=== PATIENT | female | born 1980 | race Caucasian/White ===

== ENCOUNTER 2018-04-17 11:19 | Emergency (ER) | payer OTHER ==
[2018-04-17 11:28] VITALS: BP 110/71; PULSE 85; RESP 18; TEMP 98.2
--- NOTE | 2018-04-17 12:03 | ED ---
General Adult HPI - General Chief complaint: Back Pain/Injury Stated complaint: Back pain Time Seen by Provider: 04/17/18 11:40 Source: patient, RN notes reviewed, old records reviewed Mode of arrival: ambulatory Limitations: no limitations - History of Present Illness Initial comments: Chief complaint and history of present illness this is a 38-year-old female here with complaint of chronic low back pain. Patient reports she lost her insurance and will be reinstated in approximately one week. This was just to see her family doctor in her pain clinic doctor. She had been on Cunningham 750 twice a day and baclofen 20 twice a day for prolonged period of time. At this time the patient reports she has recurrent discomfort lumbar spine and radiates to the back of both legs, thigh area. No new injury. No foot drop. No numbness no tingling. Left side slightly worse than the right. No difficulty ambulating. Patient's here requesting a refill of her pain medication. We did discuss her following up. - Related Data Previous Rx's Medication Instructions Recorded Baclofen [Lioresal] 20 mg PO BID #12 tab 04/17/18 Hydrocodone/Acetaminophen [Cunningham 1 each PO Q6HR PRN #10 tab 04/17/18 5-325] Allergies Allergy/AdvReac Type Severity Reaction Status Date / Time cephalexin monohydrate Allergy Unknown Verified 04/17/18 11:46 [From Keflex] Iodinated Contrast- Oral and Allergy Anaphylaxis Verified 04/17/18 11:46 IV Dye [Iodinated Contrast Media - IV Dye] peanut Allergy Anaphylaxis Verified 04/17/18 11:46 Penicillins Allergy Anaphylaxis Verified 04/17/18 11:46 shellfish derived Allergy Anaphylaxis Verified 04/17/18 11:46 Review of Systems ROS Statement: Those systems with pertinent positive or pertinent negative responses have been documented in the HPI. Review of systems all systems reviewed pertinent to the visit the patient has had CT and MRI of her lumbar spine showing disc disease at L3-L4 area. No x- rays will be done today as patient has had no injury. This recurrent chronic pain. All systems reviewed. Past medical problems asthma, diabetes, seizure disorder, ovarian cyst,. The patient's surgeries include cholecystectomy and left ovary removal and D&C. Family history noncontributory and no cancers. Patient has ALLERGIES to cephalexin, iodine both IV and oral, peanuts, penicillin and shellfish. Patient does not smoke does not drink. ROS Other: All systems not noted in ROS Statement are negative. Past Medical History Past Medical History: Asthma, Diabetes Mellitus, Seizure Disorder Additional Past Medical History / Comment(s): OVARIAN CYST, Schizophrenia, BIPOLAR, SCOLOSIS, chronic back pain History of Any Multi-Drug Resistant Organisms: None Reported Past Surgical History: Cholecystectomy Additional Past Surgical History / Comment(s): LEFT OVARY, D&C Past Psychological History: Anxiety, Bipolar, Depression, Schizophrenia Smoking Status: Former smoker Past Alcohol Use History: None Reported Past Drug Use History: None Reported - Past Family History Mother History Unknown: Yes Additional Family Medical History / Comment(s): pt states is unaware of history General Exam - General Exam Comments Initial Comments: General: The patient is awake and alert, here with request for refill of pain medication because of chronic pain. Lumbosacral pain radiation to the posterior thighs bilaterally. Vital signs shows temperature 90.2 pulse 85 respiratory rate 18 pulse ox 96% room air blood pressure 110/71 Eye: Pupils are equal, extra-ocular movements are intact; there is normal conjunctiva bilaterally. Ears, nose, mouth and throat: There are moist mucous membranes Neck: The neck is supple, no complaint of neck pain. Cardiovascular: There is a regular rate and rhythm. No murmur, rub or gallop is appreciated. Respiratory: Lungs are clear to auscultation, respirations are non-labored, breath sounds are equal. No wheezes, stridor, rales, or rhonchi. Gastrointestinal: Soft, non-distended, non-tender abdomen without masses or organomegaly noted. There is no rebound or guarding present. No CVA tenderness. Bowel sounds are unremarkable. Back: Patient has an complains of chronic lumbar spine pain. No rash noted. Patient had essentially a negative leg lift test. Musculoskeletal: Chronic lumbar discomfort which radiates to the posterior aspects of both thighs. No perineal numbness. Neurovascular status feet intact. Range of motion is near normal. No foot drop Neurological: CN II-XII intact, There are no obvious motor or sensory deficits. Coordination appears grossly intact. Speech is normal. Skin: Skin is warm and dry and no rashes or lesions are noted. Limitations: no limitations Course Vital Signs 04/17/18 11:23 Temperature 98.2 F Pulse Rate 85 Respiratory 18 Rate Blood Pressure 110/71 O2 Sat by Pulse 97 Oximetry Medical Decision Making - Medical Decision Making Medical decision making; I had this is a 38-year-old female here to request of refill of her pain medication of baclofen and Cunningham. Patient has chronic back pain. 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 No new complaints. No new injuries. No noticeable neuro deficits. And no complaints other than the discomfort. Disposition Clinical Impression: Chronic lumbosacral pain Disposition: HOME SELF-CARE Condition: Fair Instructions: Chronic Back Pain (ED) Additional Instructions: Take medications as directed. Follow-up with your family doctor and painter [employer]. Prescriptions: Baclofen [Lioresal] 20 mg PO BID #12 tab Hydrocodone/Acetaminophen [Cunningham 5-325] 1 each PO Q6HR PRN #10 tab PRN Reason: Pain Is patient prescribed a controlled substance at d/c from ED?: Yes When asked, does pt state using other controlled substances?: No If opioid is for acute pain is fill amount 7 days or less?: Yes If Rx opioid, was Start Talking consent form obtained?: Yes Referrals: [facility] [Primary Care Provider] - 1-2 days Time of Disposition: 12:06
== END 2018-04-17 12:20 | disposition home or self-care (01) ==
LOC: EC 11:19
DX: G89.29 Other chronic pain (principal); M54.5 Low back pain; Z87.891 Personal history of nicotine dependence; Z88.0 Allergy status to penicillin; Z88.1 Allergy status to other antibiotic agents; Z91.010 Allergy to peanuts; Z91.013 Allergy to seafood; Z91.041 Radiographic dye allergy status
CPT/HCPCS: 99283

== ENCOUNTER 2018-07-08 19:16 | Emergency (ER) | payer OTHER ==
[2018-07-08 19:24] VITALS: RESP 18
[2018-07-08 19:37] LABS: Glucose,Whole Blood 132 mg/dL (75-99)
[2018-07-08] MEDS ORDERED: DEXTROSE 50%-WATER 50 ML SYRINGE IVP STA (19:40)
[2018-07-08 19:53] LABS: Basophils # (A) 0.1 k/uL (0-0.2); Basophils % (A) 0 %; Eosinophils # (A) 1.1 k/uL (0-0.7); Eosinophils % (A) 7 %; HGB 14.1 gm/dL (11.4-16.0); Lymphocytes # (A) 3.2 k/uL (1.0-4.8); Lymphocytes % (A) 19 %; MCH 29.5 pg (25.0-35.0); MCHC 32.8 g/dL (31.0-37.0); Mean Platelet Volume 6.8; Monocytes # (A) 0.6 k/uL (0-1.0); Monocytes % (A) 4 %; Neutrophils # (A) 11.5 k/uL (1.3-7.7); Neutrophils % (A) 69 %; Platelet Count 211 k/uL (150-450); RBC 4.78 m/uL (3.80-5.40); RDW 14.5 % (11.5-15.5); WBC 16.7 k/uL (3.8-10.6)
[2018-07-08 20:02] LABS: ALT 26 U/L (9-52); AST 15 U/L (14-36); Albumin 3.2 g/dL (3.5-5.0); Alkaline Phosphatase 50 U/L (38-126); Anion Gap 8 mmol/L; Blood Urea Nitrogen 19 mg/dL (7-17); Calcium 8.5 mg/dL (8.4-10.2); Carbon Dioxide 23 mmol/L (22-30); Chloride 110 mmol/L (98-107); Glucose 115 mg/dL (74-99); Magnesium 1.9 mg/dL (1.6-2.3); Phosphorus 4.5 mg/dL (2.5-4.5); Potassium 4.3 mmol/L (3.5-5.1); Sodium 141 mmol/L (137-145); Total Bilirubin 0.2 mg/dL (0.2-1.3)
--- NOTE | 2018-07-08 20:13 | ED ---
Recheck HPI - General Chief Complaint: Recheck/Abnormal Lab/Rx Stated Complaint: Hypoglycemia Time Seen by Provider: 07/08/18 19:27 Source: EMS, RN notes reviewed, old records reviewed Mode of arrival: EMS Limitations: no limitations - History of Present Illness Initial Comments: This is a 35-year-old female the ER for evaluation patient resents today for evaluation of low blood sugar. Patient has significantly low blood sugar at home states her blood sugar, going up-and-down up-and-down, patient did eat dinner, patient is on insulin and no other blood pressure medication, patient is feeling fine, no vomiting no diarrhea no abdominal pain. MD Complaint: abnormal lab (Low blood sugar) -: unknown (All day) Returns Today for: Called Because of Abnormal Lab/Test (Patient checked her own labs) Symptoms Since Prior Visit: no new symptoms Context: called for abnormal lab result (Patient checks her own sugar) Associated Symptoms: none - Related Data Home Medications Medication Instructions Recorded Confirmed ARIPiprazole [Abilify] 5 mg PO DAILY@0800 07/08/18 07/08/18 Albuterol Inhaler [Ventolin Hfa 1 - 2 puff INHALATION RT-Q6H PRN 07/08/18 Inhaler] Divalproex ER [Depakote ER] 1,500 mg PO HS@199907/08/18 07/08/18 Divalproex ER [Depakote ER] 250 mg PO HS@199907/08/18 07/08/18 INSULIN LISPRO (HumaLOG) [HumaLOG] 8 units SQ BID@08,199907/08/18 07/08/18 Ibuprofen [Motrin] 600 mg PO Q8H PRN 07/08/18 07/08/18 Naltrexone HCl [Revia] 25 mg PO BID@0800,199907/08/18 07/08/18 Omeprazole 20 mg PO DAILY@0800 07/08/18 07/08/18 Allergies Allergy/AdvReac Type Severity Reaction Status Date / Time cephalexin monohydrate Allergy Unknown Verified 07/08/18 19:37 [From Keflex] Iodinated Contrast- Oral and Allergy Anaphylaxis Verified 07/08/18 19:37 IV Dye [Iodinated Contrast Media - IV Dye] peanut Allergy Anaphylaxis Verified 07/08/18 19:37 Penicillins Allergy Anaphylaxis Verified 07/08/18 19:37 shellfish derived Allergy Anaphylaxis Verified 07/08/18 19:37 Review of Systems ROS Statement: Those systems with pertinent positive or pertinent negative responses have been documented in the HPI. ROS Other: All systems not noted in ROS Statement are negative. Past Medical History Past Medical History: Asthma, Diabetes Mellitus, Seizure Disorder Additional Past Medical History / Comment(s): OVARIAN CYST, Schizophrenia, BIPOLAR, SCOLOSIS, chronic back pain History of Any Multi-Drug Resistant Organisms: None Reported Past Surgical History: Cholecystectomy Additional Past Surgical History / Comment(s): LEFT OVARY, D&C Past Psychological History: Anxiety, Bipolar, Depression, Schizophrenia Smoking Status: Former smoker Past Alcohol Use History: None Reported Past Drug Use History: None Reported - Past Family History Mother History Unknown: Yes Additional Family Medical History / Comment(s): pt states is unaware of history General Exam Limitations: no limitations General appearance: alert, in no apparent distress Head exam: Present: atraumatic, normocephalic, normal inspection Eye exam: Present: normal appearance, PERRL, EOMI. Absent: scleral icterus, conjunctival injection, periorbital swelling ENT exam: Present: normal exam, mucous membranes moist Neck exam: Present: normal inspection. Absent: tenderness, meningismus, lymphadenopathy Respiratory exam: Present: normal lung sounds bilaterally. Absent: respiratory distress, wheezes, rales, rhonchi, stridor Cardiovascular Exam: Present: regular rate, normal rhythm, normal heart sounds. Absent: systolic murmur, diastolic murmur, rubs, gallop, clicks GI/Abdominal exam: Present: soft, normal bowel sounds. Absent: distended, tenderness, guarding, rebound, rigid Extremities exam: Present: normal inspection, full ROM, normal capillary refill. Absent: tenderness, pedal edema, joint swelling, calf tenderness Back exam: Present: normal inspection Neurological exam: Present: alert, oriented X3, CN II-XII intact Psychiatric exam: Present: normal affect, normal mood Skin exam: Present: warm, dry, intact, normal color. Absent: rash Course Vital Signs 07/08/18 19:22 Temperature 100 F H Pulse Rate 79 Respiratory 18 Rate Blood Pressure 104/67 O2 Sat by Pulse 97 Oximetry Medical Decision Making - Medical Decision Making 88 female the ER with hypoglycemia. Patient has normal blood sugar throughout ER stay and can be discharged home - Lab Data Result diagrams: 07/08/18 19:28 07/08/18 19:28 Lab Results 07/08/18 07/08/18 07/08/18 Range/Units 19:28 19:28 19:36 WBC 16.7 H (3.8-10.6) k/uL RBC 4.78 (3.80-5.40) m/uL Hgb 14.1 (11.4-16.0) gm/dL Hct 43.0 (34.0-46.0) % MCV 90.0 (80.0-100.0) fL MCH 29.5 (25.0-35.0) pg MCHC 32.8 (31.0-37.0) g/dL RDW 14.5 (11.5-15.5) % Plt Count 211 (150-450) k/uL Neutrophils % 69 % Lymphocytes % 19 % Monocytes % 4 % Eosinophils % 7 % Basophils % 0 % Neutrophils # 11.5 H (1.3-7.7) k/uL Lymphocytes # 3.2 (1.0-4.8) k/uL Monocytes # 0.6 (0-1.0) k/uL Eosinophils # 1.1 H (0-0.7) k/uL Basophils # 0.1 (0-0.2) k/uL Sodium 141 (137-145) mmol/L Potassium 4.3 (3.5-5.1) mmol/L Chloride 110 H (98-107) mmol/L Carbon Dioxide 23 (22-30) mmol/L Anion Gap 8 mmol/L BUN 19 H (7-17) mg/dL Creatinine 0.86 (0.52-1.04) mg/dL Est GFR (CKD-EPI)AfAm >90 (>60 ml/min/1.73 sqM) Est GFR (CKD-EPI)NonAf 86 (>60 ml/min/1.73 sqM) Glucose 115 H (74-99) mg/dL POC Glucose (mg/dL) 132 H (75-99) mg/dL POC Glu Display Maker ID Jo Li Calcium 8.5 (8.4-10.2) mg/dL Phosphorus 4.5 (2.5-4.5) mg/dL Magnesium 1.9 (1.6-2.3) mg/dL Total Bilirubin 0.2 (0.2-1.3) mg/dL AST 15 (14-36) U/L ALT 26 (9-52) U/L Alkaline Phosphatase 50 (38-126) U/L Total Protein 6.0 L (6.3-8.2) g/dL Albumin 3.2 L (3.5-5.0) g/dL Acetone, Qual Negative (Negative) Disposition Clinical Impression: Diabetic hypoglycemia Disposition: HOME SELF-CARE Condition: Good Instructions: Hypoglycemia in a Person with Diabetes (ED) Is patient prescribed a controlled substance at d/c from ED?: No Referrals: [facility] [Primary Care Provider] - 1-2 days
[2018-07-08 21:26] VITALS: BP 100/64; PULSE 74; TEMP 98
[2018-07-08 21:35] LABS: Glucose,Whole Blood 112 mg/dL (75-99)
== END 2018-07-08 21:30 | disposition home or self-care (01) ==
LOC: EC 19:16
DX: E11.649 Type 2 diabetes mellitus with hypoglycemia without coma (principal); G40.909 Epilepsy, unspecified, not intractable, without status epilepticus; F31.9 Bipolar disorder, unspecified; F20.9 Schizophrenia, unspecified; J45.909 Unspecified asthma, uncomplicated; Z79.4 Long term (current) use of insulin; Z79.899 Other long term (current) drug therapy; Z88.1 Allergy status to other antibiotic agents; Z88.0 Allergy status to penicillin; Z91.041 Radiographic dye allergy status; Z91.010 Allergy to peanuts; Z91.013 Allergy to seafood; Z87.891 Personal history of nicotine dependence
CPT/HCPCS: 36415; 80053; 82009; 83735; 84100; 85025; 93005; 99284

== ENCOUNTER 2018-07-15 16:00 | Emergency (ER) | payer OTHER ==
[2018-07-15 16:18] VITALS: RESP 18
[2018-07-15] MEDS ORDERED: SODIUM CHLORIDE 0.9% 1,000 ML IV STA (16:39)
--- NOTE | 2018-07-15 17:18 | ED ---
Weakness HPI - General Chief complaint: Dizziness Stated complaint: Light headed, dizzy Time Seen by Provider: 07/15/18 16:35 Source: patient, RN notes reviewed, old records reviewed Mode of arrival: ambulatory Limitations: no limitations - History of Present Illness Initial comments: This is a 38-year-old female the ER for evaluation of dizziness lightheadedness. Patient presents from donating plasma today. She states this reactions haven't her last the time she gave plasma, just feels lightheaded dizzy and weak, very thirsty. Denies any other complaints no chest pain no headache or shortness of breath no abdominal pain no nausea vomiting or diarrhea. Denies any recent medications or change in medications MD Complaint: generalized weakness -: hour(s) Location: generalized Severity: mild Severity scale (1-10): 3 Quality: aching Consistency: constant Improves with: none Worsens with: none Context: history of similar Associated Symptoms: denies other symptoms - Related Data Home Medications Medication Instructions Recorded Confirmed ARIPiprazole [Abilify] 5 mg PO DAILY 07/08/18 07/15/18 Albuterol Inhaler [Ventolin Hfa 1 - 2 puff INHALATION RT-Q6H PRN 07/08/18 Inhaler] Divalproex ER [Depakote ER] 1,500 mg PO HS@199907/08/18 07/15/18 Divalproex ER [Depakote ER] 250 mg PO HS 07/08/18 07/15/18 INSULIN LISPRO (HumaLOG) [HumaLOG] 8 units SQ BID 07/08/18 07/15/18 Omeprazole 20 mg PO DAILY 07/08/18 07/15/18 Budesonide/Formoterol Fumarate 2 puff INHALATION RT-BID 07/15/18 07/15/18 [Symbicort 160-4.5 Mcg Inhaler] Allergies Allergy/AdvReac Type Severity Reaction Status Date / Time cephalexin monohydrate Allergy Unknown Verified 07/15/18 16:46 [From Keflex] Iodinated Contrast- Oral and Allergy Anaphylaxis Verified 07/15/18 16:46 IV Dye [Iodinated Contrast Media - IV Dye] peanut Allergy Anaphylaxis Verified 07/15/18 16:46 Penicillins Allergy Anaphylaxis Verified 07/15/18 16:46 shellfish derived Allergy Anaphylaxis Verified 07/15/18 16:46 Review of Systems ROS Statement: Those systems with pertinent positive or pertinent negative responses have been documented in the HPI. ROS Other: All systems not noted in ROS Statement are negative. Past Medical History Past Medical History: Asthma, Diabetes Mellitus, Seizure Disorder Additional Past Medical History / Comment(s): OVARIAN CYST, Schizophrenia, BIPOLAR, SCOLOSIS, chronic back pain History of Any Multi-Drug Resistant Organisms: None Reported Past Surgical History: Cholecystectomy Additional Past Surgical History / Comment(s): LEFT OVARY, D&C Past Psychological History: Anxiety, Bipolar, Depression, Schizophrenia Smoking Status: Former smoker Past Alcohol Use History: None Reported Past Drug Use History: None Reported, Cocaine - Past Family History Mother History Unknown: Yes Additional Family Medical History / Comment(s): pt states is unaware of history General Exam Limitations: no limitations General appearance: alert, in no apparent distress Head exam: Present: atraumatic, normocephalic, normal inspection Eye exam: Present: normal appearance, PERRL, EOMI. Absent: scleral icterus, conjunctival injection, periorbital swelling ENT exam: Present: normal exam, mucous membranes moist Neck exam: Present: normal inspection. Absent: tenderness, meningismus, lymphadenopathy Respiratory exam: Present: normal lung sounds bilaterally. Absent: respiratory distress, wheezes, rales, rhonchi, stridor Cardiovascular Exam: Present: regular rate, normal rhythm, normal heart sounds. Absent: systolic murmur, diastolic murmur, rubs, gallop, clicks GI/Abdominal exam: Present: soft, normal bowel sounds. Absent: distended, tenderness, guarding, rebound, rigid Extremities exam: Present: normal inspection, full ROM, normal capillary refill. Absent: tenderness, pedal edema, joint swelling, calf tenderness Back exam: Present: normal inspection Neurological exam: Present: alert, oriented X3, CN II-XII intact Psychiatric exam: Present: normal affect, normal mood Skin exam: Present: warm, dry, intact, normal color. Absent: rash Course Vital Signs 07/15/18 16:13 Temperature 98.1 F Pulse Rate 87 Respiratory 18 Rate Blood Pressure 127/85 O2 Sat by Pulse 97 Oximetry - Reevaluation(s) Reevaluation #1: 07/15/18 18:56 Patient feels improved baseline would like to be discharged EKG Findings - EKG Comments: EKG Findings:: EKG shows normal sinus rhythm rate of 76, OK 142, QRS 134, QTc 459 Medical Decision Making - Medical Decision Making 38 female the ER with dizziness lightheadedness and weakness after giving plasma , patient can be discharged home - Lab Data Result diagrams: 07/15/18 17:02 07/15/18 17:02 Lab Results 07/15/18 07/15/18 07/15/18 Range/Units 17:02 17:02 17:02 WBC 20.2 H (3.8-10.6) k/uL RBC 4.90 (3.80-5.40) m/uL Hgb 14.3 (11.4-16.0) gm/dL Hct 44.3 (34.0-46.0) % MCV 90.3 (80.0-100.0) fL MCH 29.1 (25.0-35.0) pg MCHC 32.3 (31.0-37.0) g/dL RDW 14.5 (11.5-15.5) % Plt Count 205 (150-450) k/uL Neutrophils % 78 % Lymphocytes % 14 % Monocytes % 3 % Eosinophils % 4 % Basophils % 0 % Neutrophils # 15.7 H (1.3-7.7) k/uL Lymphocytes # 2.8 (1.0-4.8) k/uL Monocytes # 0.6 (0-1.0) k/uL Eosinophils # 0.8 H (0-0.7) k/uL Basophils # 0.1 (0-0.2) k/uL Sodium 141 (137-145) mmol/L Potassium 5.3 H (3.5-5.1) mmol/L Chloride 106 (98-107) mmol/L Carbon Dioxide 28 (22-30) mmol/L Anion Gap 7 mmol/L BUN 20 H (7-17) mg/dL Creatinine 0.78 (0.52-1.04) mg/dL Est GFR (CKD-EPI)AfAm >90 (>60 ml/min/1.73 sqM) Est GFR (CKD-EPI)NonAf >90 (>60 ml/min/1.73 sqM) Glucose 123 H (74-99) mg/dL Calcium 8.6 (8.4-10.2) mg/dL Phosphorus 5.4 H (2.5-4.5) mg/dL Magnesium 1.9 (1.6-2.3) mg/dL Total Bilirubin 0.4 (0.2-1.3) mg/dL AST 40 H (14-36) U/L ALT 26 (9-52) U/L Alkaline Phosphatase 47 (38-126) U/L Total Creatine Kinase 42 (30-135) U/L CK-MB (CK-2) 0.3 (0.0-2.4) ng/mL CK-MB (CK-2) Rel Index 0.7 Troponin I <0.012 (0.000-0.034) ng/mL Total Protein 6.3 (6.3-8.2) g/dL Albumin 3.3 L (3.5-5.0) g/dL Disposition Clinical Impression: Dehydration, Dizziness Disposition: HOME SELF-CARE Condition: Good Instructions: Dizziness (ED) Is patient prescribed a controlled substance at d/c from ED?: No Referrals: [facility] [Primary Care Provider] - 1-2 days
[2018-07-15 18:20] LABS: Basophils # (A) 0.1 k/uL (0-0.2); Basophils % (A) 0 %; Eosinophils # (A) 0.8 k/uL (0-0.7); Eosinophils % (A) 4 %; HCT 44.3 % (34.0-46.0); HGB 14.3 gm/dL (11.4-16.0); Lymphocytes # (A) 2.8 k/uL (1.0-4.8); Lymphocytes % (A) 14 %; MCH 29.1 pg (25.0-35.0); MCHC 32.3 g/dL (31.0-37.0); MCV 90.3 fL (80.0-100.0); Mean Platelet Volume 7.5; Monocytes # (A) 0.6 k/uL (0-1.0); Monocytes % (A) 3 %; Neutrophils # (A) 15.7 k/uL (1.3-7.7); Neutrophils % (A) 78 %; Platelet Count 205 k/uL (150-450); RDW 14.5 % (11.5-15.5); WBC 20.2 k/uL (3.8-10.6)
[2018-07-15 18:27] LABS: ALT 26 U/L (9-52); AST 40 U/L (14-36); Albumin 3.3 g/dL (3.5-5.0); Alkaline Phosphatase 47 U/L (38-126); Anion Gap 7 mmol/L; Blood Urea Nitrogen 20 mg/dL (7-17); Calcium 8.6 mg/dL (8.4-10.2); Carbon Dioxide 28 mmol/L (22-30); Chloride 106 mmol/L (98-107); Glucose 123 mg/dL (74-99); Magnesium 1.9 mg/dL (1.6-2.3); Phosphorus 5.4 mg/dL (2.5-4.5); Potassium 5.3 mmol/L (3.5-5.1); Sodium 141 mmol/L (137-145); Total Bilirubin 0.4 mg/dL (0.2-1.3); Total Protein 6.3 g/dL (6.3-8.2)
[2018-07-15 18:30] LABS: Creatine Kinase 42 U/L (30-135)
[2018-07-15 18:43] LABS: Creatine Kinase MB 0.3 ng/mL (0.0-2.4); Troponin I <0.012 ng/mL (0.000-0.034)
[2018-07-15 19:08] VITALS: BP 124/83; PULSE 84; TEMP 98
== END 2018-07-15 19:07 | disposition home or self-care (01) ==
LOC: EC 16:00
DX: E86.0 Dehydration (principal); R42 Dizziness and giddiness; J45.909 Unspecified asthma, uncomplicated; E11.9 Type 2 diabetes mellitus without complications; G40.909 Epilepsy, unspecified, not intractable, without status epilepticus; F31.9 Bipolar disorder, unspecified; F20.9 Schizophrenia, unspecified; Z87.891 Personal history of nicotine dependence; Z79.4 Long term (current) use of insulin; Z79.51 Long term (current) use of inhaled steroids; Z79.899 Other long term (current) drug therapy; Z88.1 Allergy status to other antibiotic agents; Z91.041 Radiographic dye allergy status; Z91.010 Allergy to peanuts; Z88.0 Allergy status to penicillin; Z91.013 Allergy to seafood
CPT/HCPCS: 36415; 80053; 82550; 82553; 83735; 84100; 84484; 85025; 87502; 93005; 96360; 99284

== ENCOUNTER 2018-12-16 12:55 | Emergency (ER) | payer OTHER ==
[2018-12-16 13:17] VITALS: RESP 16
[2018-12-16] MEDS ORDERED: LORazepam 1 MG TAB PO STA (13:47)
--- NOTE | 2018-12-16 13:48 | ED ---
Headache HPI - General Chief Complaint: Headache Stated Complaint: eye pressure, abd pain Time Seen by Provider: 12/16/18 13:30 Source: RN notes reviewed, old records reviewed Mode of arrival: ambulatory Limitations: no limitations - History of Present Illness Initial Comments: This is a 38-year-old female the ER for evaluation of headache abdominal pain numbness and tingling of extremity. Patient admits to anxiety. Patient states she has history of seizures feeling she may have a seizure recently. States that she feels like this evaluated or Ativan to help her symptoms. Patient denies any other complaints no headaches. No current nausea vomiting. MD Complaint: headache -: hour(s) Onset Description: gradual Location: frontal Severity: mild Quality: aching Worsens With: none Associated Symptoms: tingling/numbness Treatments Prior to Arrival: none - Related Data Home Medications Medication Instructions Recorded Confirmed INSULIN LISPRO (HumaLOG) [HumaLOG] 20 units SQ BID 07/08/18 12/16/18 Atomoxetine HCl [Strattera] 60 mg PO QAM 12/16/18 12/16/18 Baclofen [Lioresal] 20 mg PO BID 12/16/18 12/16/18 DULoxetine HCL [Cymbalta] 60 mg PO DAILY 12/16/18 12/16/18 Fluticasone Nasal [place] [Flonase 1 spray EA NOSTRIL DAILY PRN 12/16/18 12/16/18 Nasal [place]] Naltrexone HCl [Revia] 50 mg PO DAILY 12/16/18 12/16/18 Zonisamide [Zonegran] 200 mg PO HS 12/16/18 12/16/18 Zonisamide [Zonegran] 300 mg PO QAM 12/16/18 12/16/18 hydrOXYzine PAMOATE [Vistaril] 25 mg PO DAILY 12/16/18 12/16/18 lamoTRIgine [LaMICtal] 200 mg PO DAILY 12/16/18 12/16/18 traZODone HCL 100 mg PO HS 12/16/18 12/16/18 Allergies Allergy/AdvReac Type Severity Reaction Status Date / Time cephalexin monohydrate Allergy Unknown Verified 12/16/18 13:28 [From Keflex] Iodinated Contrast- Oral and Allergy Anaphylaxis Verified 12/16/18 13:28 IV Dye [Iodinated Contrast Media - IV Dye] peanut Allergy Anaphylaxis Verified 12/16/18 13:28 Penicillins Allergy Anaphylaxis Verified 12/16/18 13:28 shellfish derived Allergy Anaphylaxis Verified 12/16/18 13:28 Review of Systems ROS Statement: Those systems with pertinent positive or pertinent negative responses have been documented in the HPI. ROS Other: All systems not noted in ROS Statement are negative. Past Medical History Past Medical History: Asthma, Diabetes Mellitus, Seizure Disorder Additional Past Medical History / Comment(s): OVARIAN CYST, Schizophrenia, BIPOLAR, SCOLOSIS, chronic back pain, gout History of Any Multi-Drug Resistant Organisms: None Reported Past Surgical History: Cholecystectomy Additional Past Surgical History / Comment(s): LEFT OVARY, D&C Past Psychological History: Anxiety, Bipolar, Depression, Schizophrenia Smoking Status: Former smoker Past Alcohol Use History: None Reported Past Drug Use History: Cocaine - Past Family History Mother History Unknown: Yes Additional Family Medical History / Comment(s): pt states is unaware of history General Exam Limitations: no limitations General appearance: alert, in no apparent distress Head exam: Present: atraumatic, normocephalic, normal inspection Eye exam: Present: normal appearance, PERRL, EOMI. Absent: scleral icterus, conjunctival injection, periorbital swelling ENT exam: Present: normal exam, mucous membranes moist Neck exam: Present: normal inspection. Absent: tenderness, meningismus, lymphadenopathy Respiratory exam: Present: normal lung sounds bilaterally. Absent: respiratory distress, wheezes, rales, rhonchi, stridor Cardiovascular Exam: Present: regular rate, normal rhythm, normal heart sounds. Absent: systolic murmur, diastolic murmur, rubs, gallop, clicks GI/Abdominal exam: Present: soft, normal bowel sounds. Absent: distended, tenderness, guarding, rebound, rigid Extremities exam: Present: normal inspection, full ROM, normal capillary refill. Absent: tenderness, pedal edema, joint swelling, calf tenderness Back exam: Present: normal inspection Neurological exam: Present: alert, oriented X3, CN II-XII intact Psychiatric exam: Present: normal affect, normal mood Skin exam: Present: warm, dry, intact, normal color. Absent: rash Course Vital Signs 12/16/18 12/16/18 13:13 14:11 Temperature 98.1 F 97.8 F Pulse Rate 62 68 Respiratory 16 16 Rate Blood Pressure 148/64 141/69 O2 Sat by Pulse 100 98 Oximetry - Reevaluation(s) Reevaluation #1: Medical records reviewed Patient's symptoms resolved with Ativan Medical Decision Making - Medical Decision Making 38-year-old female the ER with anxiety and paresthesias. Symptoms improved here in the ER patient can be discharged home Disposition Clinical Impression: Headache, Anxiety Disposition: HOME SELF-CARE Condition: Good Instructions (If sedation given, give patient instructions): Acute Headache (ED) Is patient prescribed a controlled substance at d/c from ED?: No Referrals: [facility] [Primary Care Provider] - 1-2 days
[2018-12-16 14:12] VITALS: BP 141/69; PULSE 68; TEMP 97.8
== END 2018-12-16 14:11 | disposition home or self-care (01) ==
LOC: EC 12:55
DX: R51 Headache (principal); F41.9 Anxiety disorder, unspecified; R20.2 Paresthesia of skin; R10.9 Unspecified abdominal pain; J45.909 Unspecified asthma, uncomplicated; E11.9 Type 2 diabetes mellitus without complications; G40.909 Epilepsy, unspecified, not intractable, without status epilepticus; F31.9 Bipolar disorder, unspecified; F20.9 Schizophrenia, unspecified; Z87.891 Personal history of nicotine dependence; Z79.4 Long term (current) use of insulin; Z79.899 Other long term (current) drug therapy; Z88.1 Allergy status to other antibiotic agents; Z88.0 Allergy status to penicillin; Z91.013 Allergy to seafood; Z91.041 Radiographic dye allergy status; Z91.010 Allergy to peanuts; Z90.49 Acquired absence of other specified parts of digestive tract
CPT/HCPCS: 99284

== ENCOUNTER 2018-12-18 03:13 | Emergency (ER) | payer OTHER ==
[2018-12-18] MEDS ORDERED: ACET/COD 300 MG/30 MG STARTER PACK 6 TAB BTL PO STA (03:54)
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
--- NOTE | 2018-12-18 05:31 | CT ---
EXAM: CT Head Without Intravenous Contrast CLINICAL HISTORY: ITS.REASON CT Reason: Pain TECHNIQUE: Axial computed tomography images of the head/brain without intravenous contrast. CTDI is 25.9 mGy and DLP is 752.8 mGy-cm. This CT exam was performed using one or more of the following dose reduction techniques: automated exposure control, adjustment of the mA and/or kV according to patient size, and/or use of iterative reconstruction technique. COMPARISON: CT head 09/14/2013 FINDINGS: Brain: No evidence of acute transcortical cerebral infarction or intracranial hemorrhage. No abnormal mass effect or midline shift. No acute extra-axial collections. Ventricles: Ventricles are unremarkable. Bones/joints: No skull fracture identified. Soft tissues: Mild left frontal scalp soft tissue swelling/contusion. Sinuses: Imaged paranasal sinuses are clear. Mastoid air cells: Mastoid sinuses are clear. IMPRESSION: No evidence of acute intracranial abnormality. EXAM: CT Cervical Spine Without Intravenous Contrast CLINICAL HISTORY: ITS.REASON CT Reason: Pain TECHNIQUE: Axial computed tomography images of the cervical spine without intravenous contrast. CTDI is 24.6 mGy and DLP is 556.2 mGy-cm. This CT exam was performed using one or more of the following dose reduction techniques: automated exposure control, adjustment of the mA and/or kV according to patient size, and/or use of iterative reconstruction technique. COMPARISON: Cervical spine radiographs 07/31/2013 FINDINGS: Vertebrae: Cervical vertebral height and alignment are within normal limits except for reversal of normal cervical lordosis. No evidence of acute cervical fracture or subluxation. Discs/spinal canal/neural foramina: No evidence of any significant osseous cervical spinal stenosis. Soft tissues: No abnormal prevertebral soft tissue thickening. IMPRESSION: Reversal of normal cervical lordosis. No evidence of acute cervical fracture or subluxation.
--- NOTE | 2018-12-18 05:46 | CT ---
EXAM: CT Facial Without Intravenous Contrast CLINICAL HISTORY: ITS.REASON CT Reason: Pain TECHNIQUE: Axial computed tomography images of the facial without intravenous contrast. CTDI is 24.6 mGy and DLP is 556.2 mGy-cm. This CT exam was performed using one or more of the following dose reduction techniques: automated exposure control, adjustment of the mA and/or kV according to patient size, and/or use of iterative reconstruction technique. COMPARISON: CT facial bones 01/13/2012 FINDINGS: Dental metallic artifact. Mild left facial soft tissue swelling. Left frontal scalp soft tissue swelling. Small 3 mm gas lucency along anterior-lateral aspect of right orbit which may be physiologic. Orbits are otherwise unremarkable. No evidence of facial or orbital fracture. Paranasal sinuses are clear. No sinus fluid. IMPRESSION: No evidence of facial or orbital fracture. Soft tissue findings as described in body of report.
[2018-12-18 06:38] VITALS: BP 129/69; PULSE 71; RESP 14; TEMP 98.3
== END 2018-12-18 06:36 | disposition home or self-care (01) ==
LOC: EC 03:13
DX: S00.83XA Contusion of other part of head, initial encounter (principal); H53.8 Other visual disturbances; J45.909 Unspecified asthma, uncomplicated; E11.9 Type 2 diabetes mellitus without complications; G40.909 Epilepsy, unspecified, not intractable, without status epilepticus; F20.9 Schizophrenia, unspecified; F31.9 Bipolar disorder, unspecified; F41.9 Anxiety disorder, unspecified; Z87.891 Personal history of nicotine dependence; Z79.4 Long term (current) use of insulin; Z79.899 Other long term (current) drug therapy; Z88.1 Allergy status to other antibiotic agents; Z88.0 Allergy status to penicillin; Z91.010 Allergy to peanuts; Z91.013 Allergy to seafood; Z91.041 Radiographic dye allergy status; Y09 Assault by unspecified means
CPT/HCPCS: 70450; 70486; 72125; 99284

== ENCOUNTER 2018-12-23 11:42 | Emergency (ER) | payer OTHER ==
[2018-12-23 11:55] VITALS: PULSE 63; TEMP 98.9
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
--- NOTE | 2018-12-23 14:07 | CT ---
EXAMINATION TYPE: CT brain wo con DATE OF EXAM: 12/23/2018 COMPARISON: 12/18/2018 HISTORY: headache, left eye pain and contusion, left ear pain and drainage. CT DLP: [address] of the brain was performed. The ventricles, basal cisterns and sulci overlying the cerebral convexities demonstrate a normal appe arance. There is no evidence for intracranial hemorrhage or sulcal effacement. No mass effects are seen. Osseous calvarium is intact. If symptoms persist consider MRI as clinically warranted. IMPRESSION: 1. No acute intracranial process is seen at this time.
--- NOTE | 2018-12-23 14:09 | CT ---
EXAMINATION TYPE: CT iac wo con DATE OF EXAM: 12/23/2018 COMPARISON: None HISTORY: headache, left eye pain and contusion, left ear pain and drainage. CT DLP: 203.3mGycm Automated exposure control for dose reduction was used. FINDINGS: The external auditory canals are patent bilaterally. Mastoid air cells show no evidence of abnormal opacification bilaterally. The middle ear ossicles are symmetric and unremarkable. There is no evidence of suspicious surrounding soft tissue density to suggest cholesteatoma. The scutum is preserved bilaterally. The cochlea and the semicircular canals are symmetric and unremarkable. Ves tibular aqueduct and internal carotid canal appear unremarkable. Temporomandibular joints are mainta ined bilaterally. IMPRESSION: No significant abnormality seen to account for patient's symptoms. No evidence for tempor al bone fracture identified at this time.
--- NOTE | 2018-12-23 14:18 | CT ---
EXAMINATION TYPE: CT facial bones wo con DATE OF EXAM: 12/23/2018 COMPARISON: 12/18/2018 HISTORY: headache, left eye pain and contusion, left ear pain and drainage. CT DLP: 1015 mGycm Automated exposure control for dose reduction was used. TECHNIQUE: CT scan of the sinuses is performed without contrast, axial images are obtained, coronal r eformatted images are also reviewed. FINDINGS: The paranasal sinuses including the frontal, ethmoid, sphenoid, and maxillary sinuses bila terally are well-aerated without abnormal opacification. The ostiomeatal complex is patent bilateral ly on the coronal images. Visualized portion of mastoid air cells show no abnormal opacification. The globes are intact bilate rally. There is a subcutaneous hematoma overlying the left frontal bone. Nasal septal deviation not ed. IMPRESSION: 1. Subcutaneous hematoma overlying the left frontal bone. 2. If symptoms persist correlate with MRI.
[2018-12-23 14:55] VITALS: BP 104/59; RESP 16
== END 2018-12-23 15:55 | disposition home or self-care (01) ==
LOC: EC 11:42
DX: S05.12XA Contusion of eyeball and orbital tissues, left eye, initial encounter (principal); J45.909 Unspecified asthma, uncomplicated; E11.9 Type 2 diabetes mellitus without complications; G89.29 Other chronic pain; F31.9 Bipolar disorder, unspecified; F41.9 Anxiety disorder, unspecified; Z87.891 Personal history of nicotine dependence; Z88.0 Allergy status to penicillin; Z88.1 Allergy status to other antibiotic agents; Z91.010 Allergy to peanuts; Z91.013 Allergy to seafood; Z91.041 Radiographic dye allergy status; Z79.4 Long term (current) use of insulin; Z79.899 Other long term (current) drug therapy; Y09 Assault by unspecified means
CPT/HCPCS: 70450; 70480; 70486; 99284

== ENCOUNTER 2019-12-02 17:10 | Emergency (ER) | payer OTHER ==
[2019-12-02 17:24] VITALS: RESP 16; TEMP 98.6
[2019-12-02 18:51] LABS: Basophils # (A) 0.1 k/uL (0-0.2); Basophils % (A) 0 %; Eosinophils # (A) 0.7 k/uL (0-0.7); Eosinophils % (A) 5 %; HCT 41.3 % (34.0-46.0); HGB 13.2 gm/dL (11.4-16.0); Lymphocytes # (A) 2.1 k/uL (1.0-4.8); Lymphocytes % (A) 14 %; MCH 28.2 pg (25.0-35.0); MCHC 32.1 g/dL (31.0-37.0); MCV 87.9 fL (80.0-100.0); Mean Platelet Volume 7.1; Monocytes # (A) 0.5 k/uL (0-1.0); Monocytes % (A) 3 %; Neutrophils # (A) 11.2 k/uL (1.3-7.7); Neutrophils % (A) 76 %; Platelet Count 277 k/uL (150-450); RDW 14.4 % (11.5-15.5); WBC 14.7 k/uL (3.8-10.6)
[2019-12-02 18:52] LABS: Appearance,Urine Clear (Clear); Bilirubin,Urine Negative (Negative); Blood,Urine Small (Negative); Color,Urine Yellow; Glucose,Urine (UA) Negative (Negative); Hyaline Casts,Urine 1 /lpf (0-2); Ketones,Urine Negative (Negative); Leukocyte Esterase,Urine Negative (Negative); Mucus,Urine Rare /hpf; Nitrite,Urine Negative (Negative); Protein,Urine Negative (Negative); RBC,Urine 1 /hpf (0-5); Specific Gravity,Urine 1.022 (1.001-1.035); Squamous Epithelial Cell,Urine 2 /hpf (0-4); Urobilinogen,Urine <2.0 mg/dL (<2.0); WBC,Urine 1 /hpf (0-5)
--- NOTE | 2019-12-02 18:55 | ED ---
General Adult HPI - General Chief complaint: Recheck/Abnormal Lab/Rx Stated complaint: N/V Time Seen by Provider: 12/02/19 17:17 Source: EMS, RN notes reviewed, old records reviewed Mode of arrival: EMS - History of Present Illness Initial comments: 39-year-old female patient past history asthma and diabetes reported seizure disorder presents to the for chief complaint of approximately 5 days of nausea, reports her skin is burning, describes mild epigastric abdominal discomfort. Patient reports she had a mild cough that started yesterday. Denies any other acute complaints. Systemic: Pt denies fatigue, fever/chills, rash. Pt denies weakness, night sweats, weight loss. Neuro: Pt denies headache, visual disturbances, syncope or pre-syncope. HEENT: Pt denies ocular discharge or irritation, otalgia, rhinorrhea, pharyngitis or notable lymphadenopathy. Cardiopulmonary: Pt denies chest pain, SOB, heart palpitations, dyspnea on exertion. : Pt denies dysuria, burning w/ urination, frequency/urgency. Denies new onset urinary or bowel incontinence. MSK: Pt denies myalgia, loss of strength or function in extremities. Neuro: Pt denies new onset weakness, paresthesias. - Related Data Home Medications Medication Instructions Recorded Confirmed INSULIN LISPRO (HumaLOG) [HumaLOG] 20 units SQ BID 07/08/18 12/16/18 Atomoxetine HCl [Strattera] 60 mg PO QAM 12/16/18 12/16/18 Baclofen [Lioresal] 20 mg PO BID 12/16/18 12/16/18 DULoxetine HCL [Cymbalta] 60 mg PO DAILY 12/16/18 12/16/18 Fluticasone Nasal [place] [Flonase 1 spray EA NOSTRIL DAILY PRN 12/16/18 12/16/18 Nasal [place]] Naltrexone HCl [Revia] 50 mg PO DAILY 12/16/18 12/16/18 Zonisamide [Zonegran] 200 mg PO HS 12/16/18 12/16/18 Zonisamide [Zonegran] 300 mg PO QAM 12/16/18 12/16/18 hydrOXYzine PAMOATE [Vistaril] 25 mg PO DAILY 12/16/18 12/16/18 lamoTRIgine [LaMICtal] 200 mg PO DAILY 12/16/18 12/16/18 traZODone HCL 100 mg PO HS 12/16/18 12/16/18 Previous Rx's Medication Instructions Recorded Ibuprofen [Motrin] 600 mg PO Q8HR PRN #20 tab 12/18/18 Allergies Allergy/AdvReac Type Severity Reaction Status Date / Time cephalexin monohydrate Allergy Unknown Verified 12/16/18 13:28 [From Keflex] Iodinated Contrast Media Allergy Anaphylaxis Verified 12/16/18 13:28 [Iodinated Contrast Media - IV Dye] peanut Allergy Anaphylaxis Verified 12/16/18 13:28 Penicillins Allergy Anaphylaxis Verified 12/16/18 13:28 shellfish derived Allergy Anaphylaxis Verified 12/16/18 13:28 Review of Systems ROS Statement: Those systems with pertinent positive or pertinent negative responses have been documented in the HPI. ROS Other: All systems not noted in ROS Statement are negative. Past Medical History Past Medical History: Asthma, Diabetes Mellitus, Seizure Disorder Additional Past Medical History / Comment(s): OVARIAN CYST, Schizophrenia, BIPOLAR, SCOLOSIS, chronic back pain, gout History of Any Multi-Drug Resistant Organisms: None Reported Past Surgical History: Cholecystectomy Additional Past Surgical History / Comment(s): LEFT OVARY, D&C Past Psychological History: Anxiety, Bipolar, Depression, Schizophrenia Smoking Status: Former smoker Past Alcohol Use History: None Reported Past Drug Use History: Cocaine - Past Family History Mother History Unknown: Yes Additional Family Medical History / Comment(s): pt states is unaware of history General Exam - General Exam Comments Initial Comments: Constitutional: NAD, AOX3, Pt has pleasant affect. HEENT: NC/AT, trachea midline, neck supple, no lymphadenopathy. Posterior pharynx non erythematous, without exudates. External ears appear normal, without discharge. Mucous membranes moist. Eyes PERRLA, EOM intact. There is no scleral icterus. No pallor noted. Cardiopulmonary: RRR, no murmurs, rubs or gallops, no JVD noted. Lungs CTAB in anterior and posterior macias. No peripheral edema. Abdominal exam: Abdomen soft and non-distended. Abdomen mildly tender to palpation in periumbilical, epigastric, right lower quadrant region. Bowel sounds active in LLQ. No hepatosplenomegaly. No ecchymosis Neuro: CN II-XII intact. No nuchal rigidity. No raccon eyes, no johansen sign, no hemotympanum. No cervical spinal tenderness. MSK: No posterior calf tenderness bilaterally, homans sign negative bilaterally. Posterior tibialis and radial pulse +2 bilaterally. Sensation intact in upper and lower extremities. Full active ROM in upper and lower extremities, 5/5 stregnth. Course Vital Signs 12/02/19 12/02/19 17:17 19:18 Temperature 98.6 F Pulse Rate 71 62 Respiratory 16 16 Rate Blood Pressure 127/66 106/66 O2 Sat by Pulse 99 98 Oximetry Medical Decision Making - Medical Decision Making 39-year-old female patient past history asthma and diabetes reported seizure disorder presents to the for chief complaint of approximately 5 days of nausea, reports her skin is burning, describes mild epigastric abdominal discomfort. Patient reports she had a mild cough that started yesterday. Denies any other acute complaints. Denies suicidal or homicidal ideations. Patient vital signs are stable, afebrile. Physical exam displayed: Abdomen soft and non-distended. Abdomen mildly tender to palpation in periumbilical, epigastric, right lower quadrant region. Bowel sounds active in LLQ. No hepatosplenomegaly. No ecchymosis. Laboratory investigations did display leukocytosis present which does appear to be relatively chronic for patient. Otherwise nonpresent. Lactic acid of 1.3, lipase 149. UA negative, coronavirus negative. Chest x-ray displayed no acute process. CT abdomen and pelvis did not display any sign of acute abdomen and pelvis. Deformity left upper pole cyst that of chronic pyelonephritis. L3-L4 point spinal stenosis. Findings related to patient. Patient does not have findings suggestive of pyelonephritis in her urine at this time. Patient is feeling better upon reevaluation. Patient will be discharged, will follow up with primary care provider as well as her GI doctor and return to ER if condition worsens. Discussed with Dr. Gore. - Lab Data Result diagrams: 12/02/19 18:34 12/02/19 18:34 Lab Results 12/02/19 12/02/19 12/02/19 Range/Units 18:00 18:00 18:13 WBC (3.8-10.6) k/uL RBC (3.80-5.40) m/uL Hgb (11.4-16.0) gm/dL Hct (34.0-46.0) % MCV (80.0-100.0) fL MCH (25.0-35.0) pg MCHC (31.0-37.0) g/dL RDW (11.5-15.5) % Plt Count (150-450) k/uL Neutrophils % % Lymphocytes % % Monocytes % % Eosinophils % % Basophils % % Neutrophils # (1.3-7.7) k/uL Lymphocytes # (1.0-4.8) k/uL Monocytes # (0-1.0) k/uL Eosinophils # (0-0.7) k/uL Basophils # (0-0.2) k/uL Sodium (137-145) mmol/L Potassium (3.5-5.1) mmol/L Chloride (98-107) mmol/L Carbon Dioxide (22-30) mmol/L Anion Gap mmol/L BUN (7-17) mg/dL Creatinine (0.52-1.04) mg/dL Est GFR (CKD-EPI)AfAm (>60 ml/min/1.73 sqM) Est GFR (CKD-EPI)NonAf (>60 ml/min/1.73 sqM) Glucose (74-99) mg/dL Plasma Lactic Acid Keon 1.3 (0.7-2.0) mmol/L Calcium (8.4-10.2) mg/dL Total Bilirubin (0.2-1.3) mg/dL AST (14-36) U/L ALT (4-34) U/L Alkaline Phosphatase (38-126) U/L Total Protein (6.3-8.2) g/dL Albumin (3.5-5.0) g/dL Lipase (23-300) U/L Urine Color Yellow Urine Appearance Clear (Clear) Urine pH 6.0 (5.0-8.0) Ur Specific [place] 1.022 (1.001-1.035) Urine Protein Negative (Negative) Urine Glucose (UA) Negative (Negative) Urine Ketones Negative (Negative) Urine Blood Small H (Negative) Urine Nitrite Negative (Negative) Urine Bilirubin Negative (Negative) Urine Urobilinogen <2.0 (<2.0) mg/dL Ur Leukocyte Esterase Negative (Negative) Urine RBC 1 (0-5) /hpf Urine WBC 1 (0-5) /hpf Ur Squamous Epith Cells 2 (0-4) /hpf Hyaline Casts 1 (0-2) /lpf Urine Mucus Rare H (None) /hpf Urine HCG, Qual Not Detected (Not Detectd) Coronavirus (PCR) (Not Detectd) 12/02/19 12/02/19 12/02/19 Range/Units 18:34 18:34 18:34 WBC 14.7 H (3.8-10.6) k/uL RBC 4.70 (3.80-5.40) m/uL Hgb 13.2 (11.4-16.0) gm/dL Hct 41.3 (34.0-46.0) % MCV 87.9 (80.0-100.0) fL MCH 28.2 (25.0-35.0) pg MCHC 32.1 (31.0-37.0) g/dL RDW 14.4 (11.5-15.5) % Plt Count 277 (150-450) k/uL Neutrophils % 76 % Lymphocytes % 14 % Monocytes % 3 % Eosinophils % 5 % Basophils % 0 % Neutrophils # 11.2 H (1.3-7.7) k/uL Lymphocytes # 2.1 (1.0-4.8) k/uL Monocytes # 0.5 (0-1.0) k/uL Eosinophils # 0.7 (0-0.7) k/uL Basophils # 0.1 (0-0.2) k/uL Sodium 140 (137-145) mmol/L Potassium 4.6 (3.5-5.1) mmol/L Chloride 107 (98-107) mmol/L Carbon Dioxide 22 (22-30) mmol/L Anion Gap 11 mmol/L BUN 15 (7-17) mg/dL Creatinine 0.72 (0.52-1.04) mg/dL Est GFR (CKD-EPI)AfAm >90 (>60 ml/min/1.73 sqM) Est GFR (CKD-EPI)NonAf >90 (>60 ml/min/1.73 sqM) Glucose 100 H (74-99) mg/dL Plasma Lactic Acid Keon (0.7-2.0) mmol/L Calcium 9.3 (8.4-10.2) mg/dL Total Bilirubin 0.2 (0.2-1.3) mg/dL AST 22 (14-36) U/L ALT 13 (4-34) U/L Alkaline Phosphatase 109 (38-126) U/L Total Protein 8.0 (6.3-8.2) g/dL Albumin 4.3 (3.5-5.0) g/dL Lipase 149 (23-300) U/L Urine Color Urine Appearance (Clear) Urine pH (5.0-8.0) Ur Specific [place] (1.001-1.035) Urine Protein (Negative) Urine Glucose (UA) (Negative) Urine Ketones (Negative) Urine Blood (Negative) Urine Nitrite (Negative) Urine Bilirubin (Negative) Urine Urobilinogen (<2.0) mg/dL Ur Leukocyte Esterase (Negative) Urine RBC (0-5) /hpf Urine WBC (0-5) /hpf Ur Squamous Epith Cells (0-4) /hpf Hyaline Casts (0-2) /lpf Urine Mucus (None) /hpf Urine HCG, Qual (Not Detectd) Coronavirus (PCR) Not Detected (Not Detectd) - EKG Data -: EKG Interpreted by Me (and Dr. Gore ) EKG Comments: Ventricular rate 66, purulent 58, QRS 160, QT/QTc 450/471. Sensory rhythm. Right bundle branch Block. Left anterior fascicular block. Bifascicular block. Previous bifasicular block is noted. No concern for acute ischemia at this time. Disposition Clinical Impression: Abdominal pain Disposition: HOME SELF-CARE Condition: Stable Instructions (If sedation given, give patient instructions): Abdominal Pain (ED) Additional Instructions: Follow-up with primary care provider as well as previously established GI doctor tomorrow. Return to ER if condition worsens. Is patient prescribed a controlled substance at d/c from ED?: No [facility]: [facility] [Primary Care Provider] - 1-2 days Angelina Torres MD [STAFF PHYSICIAN] - 1-2 days
[2019-12-02 18:58] LABS: ALT 13 U/L (4-34); AST 22 U/L (14-36); African American GFR (CKD) >90 (>60 ml/min/1.73 sqM); Albumin 4.3 g/dL (3.5-5.0); Alkaline Phosphatase 109 U/L (38-126); Anion Gap 11 mmol/L; Blood Urea Nitrogen 15 mg/dL (7-17); Calcium 9.3 mg/dL (8.4-10.2); Carbon Dioxide 22 mmol/L (22-30); Chloride 107 mmol/L (98-107); Glucose 100 mg/dL (74-99); Non-African American GFR(CKD) >90 (>60 ml/min/1.73 sqM); Potassium 4.6 mmol/L (3.5-5.1); Sodium 140 mmol/L (137-145); Total Bilirubin 0.2 mg/dL (0.2-1.3)
--- NOTE | 2019-12-02 18:59 | XR ---
EXAMINATION TYPE: XR KUB DATE OF EXAM: 12/02/2019 COMPARISON: 08/15/2009 HISTORY: Abdominal pain TECHNIQUE: 2 views upright FINDINGS: There is no sign of intestinal obstruction or pneumoperitoneum. There are clips from cholec ystectomy. There are clips from tubal ligation. There is no evidence of a mass. There are no patholog ic calcifications over the kidneys. Fecal pattern is normal. IMPRESSION: Nonacute abdomen.
--- NOTE | 2019-12-02 19:01 | XR ---
EXAMINATION TYPE: XR chest 1V portable DATE OF EXAM: 12/02/2019 COMPARISON: 09/16/2013 HISTORY: Mohit pain TECHNIQUE: Single view FINDINGS: Heart and mediastinum are normal. Lungs are clear. Diaphragm is normal. Bony thorax is inta ct. IMPRESSION: Normal chest. No change.
[2019-12-02] MEDS ORDERED: methylPREDNISolone SOD SUCCI 125 MG/2 ML VIAL IV STA (19:18)
[2019-12-02] MEDS ORDERED: FAMOTIDINE 20 MG/2 ML VIAL IV STA (19:18)
[2019-12-02] MEDS ORDERED: diphenhydrAMINE 50 MG/ML 1 ML VIAL IVP STA (19:18)
[2019-12-02] MEDS ORDERED: SODIUM CHLORIDE 0.9% 1,000 ML IV ONE (20:00)
--- NOTE | 2019-12-02 20:19 | CT ---
EXAMINATION TYPE: CT abdomen pelvis w con DATE OF EXAM: 12/02/2019 COMPARISON: None HISTORY: ABDOMINAL PAIN CT DLP: 2050.1 mGycm Automated exposure control for dose reduction was used. CONTRAST: Performed with IV Contrast, patient injected with 100 mL of Isovue 300. Lung bases are clear. There is no pleural effusion. Heart size is normal. There is no pericardial eff usion. Stomach appears normal. There are clips from cholecystectomy. Liver spleen pancreas appear nor mal. Bile ducts are not dilated. There is no adrenal mass. There is cortical thinning and deformity upper pole left kidney with calcif ication that could relate to chronic pyelonephritis. There is 2 cm cortical cyst upper pole left kidn ey. There is no hydronephrosis. Ureters are not dilated. There is no retroperitoneal adenopathy. Blad juanita distends smoothly. There is no inguinal hernia. There is no free fluid in the pelvis. Uterus is a nteverted. There are clips apparently from tubal ligation. Appendix is posterior and appears normal. There is no mesenteric edema. There is no ascites or free air. There is no bowel obstruction. There a re retroperitoneal surgical clips in the mid abdomen. There is large posterior disc herniation at L3-4 with calcification and spinal stenosis. There is no lumbar compression fracture. Bony pelvis appears intact. IMPRESSION: Normal appendix. No sign of acute abdomen and pelvis. Deformity upper pole left kidney suggestive of chronic pyelonephritis. L3-4 bony spinal stenosis.
[2019-12-02 21:45] VITALS: BP 118/54; PULSE 66
== END 2019-12-02 22:26 | disposition home or self-care (01) ==
LOC: EEVIPCON 17:10 → EC 17:10
DX: R10.13 Epigastric pain (principal); R20.8 Other disturbances of skin sensation; D72.829 Elevated white blood cell count, unspecified; M48.061 Spinal stenosis, lumbar region without neurogenic claudication; N28.89 Other specified disorders of kidney and ureter; E11.9 Type 2 diabetes mellitus without complications; G40.909 Epilepsy, unspecified, not intractable, without status epilepticus; J45.909 Unspecified asthma, uncomplicated; R11.0 Nausea; R05 Cough; F41.9 Anxiety disorder, unspecified; F31.9 Bipolar disorder, unspecified; G89.29 Other chronic pain; M54.9 Dorsalgia, unspecified; M10.9 Gout, unspecified; Z79.4 Long term (current) use of insulin; Z79.891 Long term (current) use of opiate analgesic; Z79.51 Long term (current) use of inhaled steroids; Z79.899 Other long term (current) drug therapy; Z88.1 Allergy status to other antibiotic agents; Z91.041 Radiographic dye allergy status; Z91.010 Allergy to peanuts; Z88.0 Allergy status to penicillin; Z91.013 Allergy to seafood; Z90.49 Acquired absence of other specified parts of digestive tract; Z98.890 Other specified postprocedural states; Z87.42 Personal history of other diseases of the female genital tract; Z87.891 Personal history of nicotine dependence
CPT/HCPCS: 36415; 93005; 80053; 83605; 83690; 85025; 81001; 81025; 87635; 71045; 74018; 74177; 99285; 96374; 96375 ×2; 96361; J1200; J2930; Q9967

== ENCOUNTER 2019-12-12 10:50 | Emergency (ER) | payer OTHER ==
[2019-12-12 11:02] VITALS: PULSE 63; RESP 20; TEMP 97.8
[2019-12-12 11:21] LABS: Glucose,Whole Blood 121 mg/dL (75-99)
--- NOTE | 2019-12-12 11:27 | ED ---
General Adult HPI - General Chief complaint: Recheck/Abnormal Lab/Rx Stated complaint: hypoglycemia Time Seen by Provider: 12/12/19 10:55 Source: patient, EMS, RN notes reviewed, old records reviewed Mode of arrival: EMS Limitations: no limitations - History of Present Illness Initial comments: This is a 39-year-old female presents emergency Department complaining that her sugar was low. Patient states she is living with her sister and her sister ref uses to give her any food she had no food yesterday or today but she did not take her insulin. Patient states she started to feel weak so she took her sugar home and it was low so she calls any habits. EMS stated that her sugar was low at 60 and they gave her oral glucose in the patient's sugar came up. Patient denies any recent fever chills or cough. Patient denies any chest pain difficult breathing shortest breath. Patient denies any headache patient denies numbness weakness or lightheadedness. Patient denies any abdominal pain patient denies nausea vomiting diarrhea. Patient denies any recent injury or trauma. Patient denies any drug use or alcohol use recently. Patient states she has a guardian. - Related Data Home Medications Medication Instructions Recorded Confirmed INSULIN LISPRO (HumaLOG) [HumaLOG] 20 units SQ BID 07/08/18 12/16/18 Atomoxetine HCl [Strattera] 60 mg PO QAM 12/16/18 12/16/18 Baclofen [Lioresal] 20 mg PO BID 12/16/18 12/16/18 DULoxetine HCL [Cymbalta] 60 mg PO DAILY 12/16/18 12/16/18 Fluticasone Nasal [place] [Flonase 1 spray EA NOSTRIL DAILY PRN 12/16/18 12/16/18 Nasal [place]] Naltrexone HCl [Revia] 50 mg PO DAILY 12/16/18 12/16/18 Zonisamide [Zonegran] 200 mg PO HS 12/16/18 12/16/18 Zonisamide [Zonegran] 300 mg PO QAM 12/16/18 12/16/18 hydrOXYzine PAMOATE [Vistaril] 25 mg PO DAILY 12/16/18 12/16/18 lamoTRIgine [LaMICtal] 200 mg PO DAILY 12/16/18 12/16/18 traZODone HCL 100 mg PO HS 12/16/18 12/16/18 Previous Rx's Medication Instructions Recorded Ibuprofen [Motrin] 600 mg PO Q8HR PRN #20 tab 12/18/18 Sulfamethox-Tmp 800-160Mg [Bactrim 1 each PO Q12HR #14 tab 12/12/19 DS 800-160 mg] Allergies Allergy/AdvReac Type Severity Reaction Status Date / Time cephalexin monohydrate Allergy Unknown Verified 12/16/18 13:28 [From Keflex] Iodinated Contrast Media Allergy Anaphylaxis Verified 12/16/18 13:28 [Iodinated Contrast Media - IV Dye] peanut Allergy Anaphylaxis Verified 12/16/18 13:28 Penicillins Allergy Anaphylaxis Verified 12/16/18 13:28 shellfish derived Allergy Anaphylaxis Verified 12/16/18 13:28 Review of Systems ROS Statement: Those systems with pertinent positive or pertinent negative responses have been documented in the HPI. ROS Other: All systems not noted in ROS Statement are negative. Past Medical History Past Medical History: Asthma, Diabetes Mellitus, Seizure Disorder Additional Past Medical History / Comment(s): OVARIAN CYST, Schizophrenia, BIPOLAR, SCOLOSIS, chronic back pain, gout History of Any Multi-Drug Resistant Organisms: None Reported Past Surgical History: Cholecystectomy Additional Past Surgical History / Comment(s): LEFT OVARY, D&C Past Psychological History: Anxiety, Bipolar, Depression, Schizophrenia Smoking Status: Former smoker Past Alcohol Use History: None Reported Past Drug Use History: None Reported - Past Family History Mother History Unknown: Yes Additional Family Medical History / Comment(s): pt states is unaware of history General Exam - General Exam Comments Initial Comments: GENERAL: Patient is well-developed and well-nourished. Patient is nontoxic and well-h ydrated and is in no acute distress. ENT: Neck is soft and supple. No significant lymphadenopathy is noted. Oropharynx is clear. Moist mucous membranes. Neck has full range of motion without elic iting any pain. EYES: The sclera were anicteric and conjunctiva were pink and moist. Extraocular movements were intact and pupils were equal round and reactive to light. Eyelids were unremarkable. PULMONARY: Unlabored respirations. Good breath sounds bilaterally. No audible rales rhonchi or wheezing was noted. CARDIOVASCULAR: There is a regular rate and rhythm without any murmurs gallops or rubs. ABDOMEN: Soft and nontender with normal bowel sounds. No palpable organomegaly was noted . There is no palpable pulsatile mass. SKIN: Patient has superficial abrasions on the right forearm she states she did that when she was angry yesterday. Patient states she does have a tetanus up-to- date. NEUROLOGIC: Patient is alert and oriented x3. Cranial nerves II through XII are grossly i ntact. Motor and sensory are also intact. Normal speech, volume and content. Symmetrical smile. MUSCULOSKELETAL: Normal extremities with adequate strength and full range of motion. No lower extremity swelling or edema. No calf tenderness. LYMPHATICS: No significant lymphadenopathy is noted PSYCHIATRIC: Normal psychiatric evaluation. Limitations: no limitations Course Vital Signs 12/12/19 10:54 Temperature 97.8 F Pulse Rate 63 Respiratory 20 Rate Blood Pressure 117/61 O2 Sat by Pulse 100 Oximetry Medical Decision Making - Medical Decision Making EKG shows normal sinus rhythm at 61 bpm TN interval 154 QRS is 180 QT intervals 52 QTC is 505. Patient's EKG shows no ST segment elevation. Guardian was contacted and was informed that the patient claims she was unable to get access to food Guardian stated she would look into it. Patient a urinary tract infection so the patient received Bactrim the emergency department and will receive a prescription to go home with. - Lab Data Result diagrams: 12/12/19 11:10 12/12/19 13:53 Lab Results 12/12/19 12/12/19 12/12/19 Range/Units 11:10 11:10 11:18 WBC 11.5 H (3.8-10.6) k/uL RBC 5.29 (3.80-5.40) m/uL Hgb 15.1 (11.4-16.0) gm/dL Hct 45.7 (34.0-46.0) % MCV 86.3 (80.0-100.0) fL MCH 28.6 (25.0-35.0) pg MCHC 33.1 (31.0-37.0) g/dL RDW 14.5 (11.5-15.5) % Plt Count 176 (150-450) k/uL Neutrophils % 81 % Lymphocytes % 12 % Monocytes % 3 % Eosinophils % 4 % Basophils % 0 % Neutrophils # 9.3 H (1.3-7.7) k/uL Lymphocytes # 1.4 (1.0-4.8) k/uL Monocytes # 0.3 (0-1.0) k/uL Eosinophils # 0.5 (0-0.7) k/uL Basophils # 0.0 (0-0.2) k/uL Sodium (137-145) mmol/L Potassium (3.5-5.1) mmol/L Chloride (98-107) mmol/L Carbon Dioxide (22-30) mmol/L Anion Gap mmol/L BUN (7-17) mg/dL Creatinine (0.52-1.04) mg/dL Est GFR (CKD-EPI)AfAm (>60 ml/min/1.73 sqM) Est GFR (CKD-EPI)NonAf (>60 ml/min/1.73 sqM) Glucose (74-99) mg/dL POC Glucose (mg/dL) 121 H (75-99) mg/dL POC Glu Material Handling Crew Supervisor ID Carmelita Good Calcium (8.4-10.2) mg/dL Total Bilirubin (0.2-1.3) mg/dL AST (14-36) U/L ALT (4-34) U/L Alkaline Phosphatase (38-126) U/L Total Protein (6.3-8.2) g/dL Albumin (3.5-5.0) g/dL Urine Color Yellow Urine Appearance Turbid H (Clear) Urine pH 5.5 (5.0-8.0) Ur Specific Cost 1.024 (1.001-1.035) Urine Protein 1+ H (Negative) Urine Glucose (UA) Negative (Negative) Urine Ketones Negative (Negative) Urine Blood Negative (Negative) Urine Nitrite Negative (Negative) Urine Bilirubin Negative (Negative) Urine Urobilinogen 2.0 (<2.0) mg/dL Ur Leukocyte Esterase Large H (Negative) Urine RBC 8 H (0-5) /hpf Urine WBC 30 H (0-5) /hpf Ur Squamous Epith Cells 28 H (0-4) /hpf Amorphous Sediment Rare H (None) /hpf Urine Bacteria Many H (None) /hpf Urine Mucus Many H (None) /hpf 12/12/19 12/12/19 12/12/19 Range/Units 12:35 13:10 13:53 WBC (3.8-10.6) k/uL RBC (3.80-5.40) m/uL Hgb (11.4-16.0) gm/dL Hct (34.0-46.0) % MCV (80.0-100.0) fL MCH (25.0-35.0) pg MCHC (31.0-37.0) g/dL RDW (11.5-15.5) % Plt Count (150-450) k/uL Neutrophils % % Lymphocytes % % Monocytes % % Eosinophils % % Basophils % % Neutrophils # (1.3-7.7) k/uL Lymphocytes # (1.0-4.8) k/uL Monocytes # (0-1.0) k/uL Eosinophils # (0-0.7) k/uL Basophils # (0-0.2) k/uL Sodium 141 (137-145) mmol/L Potassium 4.3 (3.5-5.1) mmol/L Chloride 102 (98-107) mmol/L Carbon Dioxide 25 (22-30) mmol/L Anion Gap 14 mmol/L BUN 10 (7-17) mg/dL Creatinine 0.89 (0.52-1.04) mg/dL Est GFR (CKD-EPI)AfAm >90 (>60 ml/min/1.73 sqM) Est GFR (CKD-EPI)NonAf 81 (>60 ml/min/1.73 sqM) Glucose 113 H (74-99) mg/dL POC Glucose (mg/dL) 55 L 73 L (75-99) mg/dL POC Glu Material Handling Crew Supervisor ID Halilaj, Carmelita Halilaj, Carmelita Calcium 10.1 (8.4-10.2) mg/dL Total Bilirubin 0.4 (0.2-1.3) mg/dL AST 23 (14-36) U/L ALT 16 (4-34) U/L Alkaline Phosphatase 116 (38-126) U/L Total Protein 8.9 H (6.3-8.2) g/dL Albumin 4.9 (3.5-5.0) g/dL Urine Color Urine Appearance (Clear) Urine pH (5.0-8.0) Ur Specific Cost (1.001-1.035) Urine Protein (Negative) Urine Glucose (UA) (Negative) Urine Ketones (Negative) Urine Blood (Negative) Urine Nitrite (Negative) Urine Bilirubin (Negative) Urine Urobilinogen (<2.0) mg/dL Ur Leukocyte Esterase (Negative) Urine RBC (0-5) /hpf Urine WBC (0-5) /hpf Ur Squamous Epith Cells (0-4) /hpf Amorphous Sediment (None) /hpf Urine Bacteria (None) /hpf Urine Mucus (None) /hpf Disposition Clinical Impression: Hypoglycemia, Urinary tract infection Disposition: HOME SELF-CARE Condition: Good Instructions (If sedation given, give patient instructions): Urinary Tract Infection in Women (ED) Prescriptions: Sulfamethox-Tmp 800-160Mg [Bactrim DS 800-160 mg] 1 each PO Q12HR #14 tab Is patient prescribed a controlled substance at d/c from ED?: No Referrals: [facility] [Primary Care Provider] - 1-2 days Time of Disposition: 14:32
[2019-12-12 11:42] LABS: Basophils % (A) 0 %; Eosinophils # (A) 0.5 k/uL (0-0.7); Eosinophils % (A) 4 %; HCT 45.7 % (34.0-46.0); HGB 15.1 gm/dL (11.4-16.0); Lymphocytes # (A) 1.4 k/uL (1.0-4.8); Lymphocytes % (A) 12 %; MCH 28.6 pg (25.0-35.0); MCHC 33.1 g/dL (31.0-37.0); MCV 86.3 fL (80.0-100.0); Mean Platelet Volume 9.3; Monocytes # (A) 0.3 k/uL (0-1.0); Monocytes % (A) 3 %; Neutrophils # (A) 9.3 k/uL (1.3-7.7); Neutrophils % (A) 81 %; Platelet Count 176 k/uL (150-450); RBC 5.29 m/uL (3.80-5.40); RDW 14.5 % (11.5-15.5); WBC 11.5 k/uL (3.8-10.6)
[2019-12-12 12:47] LABS: Glucose,Whole Blood 55 mg/dL (75-99)
[2019-12-12 13:21] LABS: Glucose,Whole Blood 73 mg/dL (75-99)
[2019-12-12 13:29] LABS: Amorphous Sediment,Urine Rare /hpf; Appearance,Urine Turbid (Clear); Bacteria,Urine Many /hpf; Bilirubin,Urine Negative (Negative); Blood,Urine Negative (Negative); Color,Urine Yellow; Glucose,Urine (UA) Negative (Negative); Ketones,Urine Negative (Negative); Leukocyte Esterase,Urine Large (Negative); Mucus,Urine Many /hpf; Nitrite,Urine Negative (Negative); PH, Urine 5.5 (5.0-8.0); Protein,Urine 1+ (Negative); RBC,Urine 8 /hpf (0-5); Specific Gravity,Urine 1.024 (1.001-1.035); Squamous Epithelial Cell,Urine 28 /hpf (0-4); WBC,Urine 30 /hpf (0-5)
[2019-12-12] MEDS ORDERED: SULFAMETHOX-TMP 800-160MG 1 EACH TAB PO STA (13:49)
[2019-12-12 14:21] LABS: ALT 16 U/L (4-34); AST 23 U/L (14-36); African American GFR (CKD) >90 (>60 ml/min/1.73 sqM); Albumin 4.9 g/dL (3.5-5.0); Alkaline Phosphatase 116 U/L (38-126); Anion Gap 14 mmol/L; Blood Urea Nitrogen 10 mg/dL (7-17); Calcium 10.1 mg/dL (8.4-10.2); Carbon Dioxide 25 mmol/L (22-30); Chloride 102 mmol/L (98-107); Glucose 113 mg/dL (74-99); Non-African American GFR(CKD) 81 (>60 ml/min/1.73 sqM); Potassium 4.3 mmol/L (3.5-5.1); Sodium 141 mmol/L (137-145); Total Bilirubin 0.4 mg/dL (0.2-1.3); Total Protein 8.9 g/dL (6.3-8.2)
[2019-12-12 14:57] VITALS: BP 129/69
== END 2019-12-12 15:00 | disposition home or self-care (01) ==
LOC: EC 10:50
DX: E11.649 Type 2 diabetes mellitus with hypoglycemia without coma (principal); N39.0 Urinary tract infection, site not specified; G40.909 Epilepsy, unspecified, not intractable, without status epilepticus; F41.9 Anxiety disorder, unspecified; F31.9 Bipolar disorder, unspecified; J45.909 Unspecified asthma, uncomplicated; Z79.51 Long term (current) use of inhaled steroids; Z79.4 Long term (current) use of insulin; Z79.899 Other long term (current) drug therapy; Z88.1 Allergy status to other antibiotic agents; Z88.0 Allergy status to penicillin; Z91.041 Radiographic dye allergy status; Z91.030 Bee allergy status; Z91.013 Allergy to seafood; Z87.891 Personal history of nicotine dependence
CPT/HCPCS: 36415; 80053; 81001; 85025; 87086; 93005; 99285

== ENCOUNTER 2019-12-16 11:27 | Inpatient (IN) | payer OTHER ==
[2019-12-16] MEDS ORDERED: ASPIRIN 81 MG PO STA (11:40)
--- NOTE | 2019-12-16 11:45 | ED ---
Recheck HPI - General Chief Complaint: Recheck/Abnormal Lab/Rx Stated Complaint: Anxiety Time Seen by Provider: 12/16/19 11:28 Source: EMS Mode of arrival: EMS Limitations: no limitations - History of Present Illness Initial Comments: 39-year-old female with history of morbid obesity, DM, bipolar, depression who frequently cuts herself as a "therapeutic release". Presents emergency department today for chief complaint of anxiety chest pressure. Patient states that she has had chest pressure this morning and her sister would not let her come to the hospital. She states she is able to go home, and call her guardian. patient states she is anxious and feels her manager business systems is withholding food and water. She states that the police, her guardian CPS are involved in the matter. Patient states she has mild pressure in here back, denies sharp pain, pain with deep inspiration or SOB. Denies cough/fever. Denies arm of jaw pain, denies leg swelling, history of DVT/PE or cancer. Patient denies additional complaints. Upon arrival she appears well, VS stable. Pt admits to suicidal but not homicidal ideations, denies attempt such as medication OD. Previous IVDU, clean x 7 months./ - Related Data Home Medications Medication Instructions Recorded Confirmed INSULIN LISPRO (HumaLOG) [HumaLOG] 20 units SQ BID 07/08/18 12/16/18 Atomoxetine HCl [Strattera] 60 mg PO QAM 12/16/18 12/16/18 Baclofen [Lioresal] 20 mg PO BID 12/16/18 12/16/18 DULoxetine HCL [Cymbalta] 60 mg PO DAILY 12/16/18 12/16/18 Fluticasone Nasal [place] [Flonase 1 spray EA NOSTRIL DAILY PRN 12/16/18 12/16/18 Nasal [place]] Naltrexone HCl [Revia] 50 mg PO DAILY 12/16/18 12/16/18 Zonisamide [Zonegran] 200 mg PO HS 12/16/18 12/16/18 Zonisamide [Zonegran] 300 mg PO QAM 12/16/18 12/16/18 hydrOXYzine PAMOATE [Vistaril] 25 mg PO DAILY 12/16/18 12/16/18 lamoTRIgine [LaMICtal] 200 mg PO DAILY 12/16/18 12/16/18 traZODone HCL 100 mg PO HS 12/16/18 12/16/18 Previous Rx's Medication Instructions Recorded Ibuprofen [Motrin] 600 mg PO Q8HR PRN #20 tab 12/18/18 Sulfamethox-Tmp 800-160Mg [Bactrim 1 each PO Q12HR #14 tab 12/12/19 DS 800-160 mg] Allergies Allergy/AdvReac Type Severity Reaction Status Date / Time cephalexin monohydrate Allergy Unknown Verified 12/16/18 13:28 [From Keflex] Iodinated Contrast Media Allergy Anaphylaxis Verified 12/16/18 13:28 [Iodinated Contrast Media - IV Dye] peanut Allergy Anaphylaxis Verified 12/16/18 13:28 Penicillins Allergy Anaphylaxis Verified 12/16/18 13:28 shellfish derived Allergy Anaphylaxis Verified 12/16/18 13:28 Review of Systems ROS Statement: Those systems with pertinent positive or pertinent negative responses have been documented in the HPI. ROS Other: All systems not noted in ROS Statement are negative. Past Medical History Past Medical History: Asthma, Diabetes Mellitus, Seizure Disorder Additional Past Medical History / Comment(s): OVARIAN CYST, Schizophrenia, BIPOLAR, SCOLOSIS, chronic back pain, gout History of Any Multi-Drug Resistant Organisms: None Reported Past Surgical History: Cholecystectomy Additional Past Surgical History / Comment(s): LEFT OVARY, D&C Past Psychological History: Anxiety, Bipolar, Depression, Schizophrenia Smoking Status: Former smoker Past Alcohol Use History: None Reported Past Drug Use History: None Reported - Past Family History Mother History Unknown: Yes Additional Family Medical History / Comment(s): pt states is unaware of history General Exam - General Exam Comments Initial Comments: General: The patient is awake and alert, in no distress, morbidly obese. Eye: Pupils are equal, round and reactive to light, extra-ocular movements are intact. No nystagmus. There is normal conjunctiva bilaterally. No signs of icterus. Ears, nose, mouth and throat: There are moist mucous membranes and no oral lesi ons. Neck: The neck is supple, there is no tenderness or JVD. Cardiovascular: There is a regular rate and rhythm. No murmur, rub or gallop is appreciated. Respiratory: Lungs are clear to auscultation, respirations are non-labored, breath sounds are equal. No wheezes, stridor, rales, or rhonchi. Gastrointestinal: Soft, non-distended, non-tender abdomen without masses or organomegaly noted. There is no rebound or guarding present. Musculoskeletal: Normal ROM, no tenderness. Strength 5/5. Sensation intact. Radial pulses equal bilaterally 2+. Neurological: A&O x 3. CN II-XII intact grossly, There are no obvious motor or sensory deficits. Coordination appears grossly intact. Speech is normal. Skin: Skin is warm and dry and no rashes or lesions are noted. No Leg swelling. Psychiatric: Cooperative, anxious Limitations: no limitations Course Vital Signs 12/16/19 12/16/19 11:30 13:29 Temperature 98.2 F 98.1 F Pulse Rate 79 69 Respiratory 16 18 Rate Blood Pressure 138/87 118/65 O2 Sat by Pulse 98 98 Oximetry Medical Decision Making - Medical Decision Making 39-year-old feel presenting today for multiple complaints. Patient states she has chest pressure. Patient states she also suicidal ideation. Patient initial troponin negative. Patient does have a significant psychiatric history. EKG no specific acute findings. Patient on telemetry and will be admitted medically for CP r/o with psychiatry evaluation. Dr. Mata accepted admission for [facility]. Spoke with guardian, APS report has been filed, police report--current investi gation--is agreeable to patient admission. - Lab Data Result diagrams: 12/16/19 11:59 12/16/19 11:59 Lab Results 12/16/19 12/16/19 12/16/19 Range/Units 11:59 11:59 11:59 WBC 15.2 H (3.8-10.6) k/uL RBC 4.83 (3.80-5.40) m/uL Hgb 13.6 (11.4-16.0) gm/dL Hct 42.9 (34.0-46.0) % MCV 88.7 (80.0-100.0) fL MCH 28.1 (25.0-35.0) pg MCHC 31.7 (31.0-37.0) g/dL RDW 14.7 (11.5-15.5) % Plt Count 248 (150-450) k/uL Neutrophils % 74 % Lymphocytes % 13 % Monocytes % 4 % Eosinophils % 8 % Basophils % 0 % Neutrophils # 11.2 H (1.3-7.7) k/uL Lymphocytes # 2.0 (1.0-4.8) k/uL Monocytes # 0.5 (0-1.0) k/uL Eosinophils # 1.3 H (0-0.7) k/uL Basophils # 0.1 (0-0.2) k/uL Sodium 143 (137-145) mmol/L Potassium 3.9 (3.5-5.1) mmol/L Chloride 111 H (98-107) mmol/L Carbon Dioxide 17 L (22-30) mmol/L Anion Gap 15 mmol/L BUN 9 (7-17) mg/dL Creatinine 0.77 (0.52-1.04) mg/dL Est GFR (CKD-EPI)AfAm >90 (>60 ml/min/1.73 sqM) Est GFR (CKD-EPI)NonAf >90 (>60 ml/min/1.73 sqM) Glucose 127 H (74-99) mg/dL Calcium 9.3 (8.4-10.2) mg/dL Magnesium 1.8 (1.6-2.3) mg/dL Total Bilirubin 0.3 (0.2-1.3) mg/dL AST 23 (14-36) U/L ALT 13 (4-34) U/L Alkaline Phosphatase 105 (38-126) U/L Troponin I <0.012 (0.000-0.034) ng/mL Total Protein 7.4 (6.3-8.2) g/dL Albumin 4.1 (3.5-5.0) g/dL Urine Color Urine Appearance (Clear) Urine pH (5.0-8.0) Ur Specific [place] (1.001-1.035) Urine Protein (Negative) Urine Glucose (UA) (Negative) Urine Ketones (Negative) Urine Blood (Negative) Urine Nitrite (Negative) Urine Bilirubin (Negative) Urine Urobilinogen (<2.0) mg/dL Ur Leukocyte Esterase (Negative) Urine WBC (0-5) /hpf Ur Squamous Epith Cells (0-4) /hpf Urine Bacteria (None) /hpf Urine Mucus (None) /hpf Urine HCG, Qual (Not Detectd) Urine Opiates Screen (NotDetected) Ur Oxycodone Screen (NotDetected) Urine Methadone Screen (NotDetected) Ur Propoxyphene Screen (NotDetected) Ur Barbiturates Screen (NotDetected) U Tricyclic Antidepress (NotDetected) Ur Phencyclidine Scrn (NotDetected) Ur Amphetamines Screen (NotDetected) U Methamphetamines Scrn (NotDetected) U Benzodiazepines Scrn (NotDetected) Urine Cocaine Screen (NotDetected) U Marijuana (THC) Screen (NotDetected) 12/16/19 12/16/19 Range/Units 12:26 13:23 WBC (3.8-10.6) k/uL RBC (3.80-5.40) m/uL Hgb (11.4-16.0) gm/dL Hct (34.0-46.0) % MCV (80.0-100.0) fL MCH (25.0-35.0) pg MCHC (31.0-37.0) g/dL RDW (11.5-15.5) % Plt Count (150-450) k/uL Neutrophils % % Lymphocytes % % Monocytes % % Eosinophils % % Basophils % % Neutrophils # (1.3-7.7) k/uL Lymphocytes # (1.0-4.8) k/uL Monocytes # (0-1.0) k/uL Eosinophils # (0-0.7) k/uL Basophils # (0-0.2) k/uL Sodium (137-145) mmol/L Potassium (3.5-5.1) mmol/L Chloride (98-107) mmol/L Carbon Dioxide (22-30) mmol/L Anion Gap mmol/L BUN (7-17) mg/dL Creatinine (0.52-1.04) mg/dL Est GFR (CKD-EPI)AfAm (>60 ml/min/1.73 sqM) Est GFR (CKD-EPI)NonAf (>60 ml/min/1.73 sqM) Glucose (74-99) mg/dL Calcium (8.4-10.2) mg/dL Magnesium (1.6-2.3) mg/dL Total Bilirubin (0.2-1.3) mg/dL AST (14-36) U/L ALT (4-34) U/L Alkaline Phosphatase (38-126) U/L Troponin I (0.000-0.034) ng/mL Total Protein (6.3-8.2) g/dL Albumin (3.5-5.0) g/dL Urine Color Yellow Urine Appearance Cloudy H (Clear) Urine pH 6.0 (5.0-8.0) Ur Specific [place] 1.026 (1.001-1.035) Urine Protein Trace H (Negative) Urine Glucose (UA) Negative (Negative) Urine Ketones Negative (Negative) Urine Blood Negative (Negative) Urine Nitrite Negative (Negative) Urine Bilirubin Negative (Negative) Urine Urobilinogen <2.0 (<2.0) mg/dL Ur Leukocyte Esterase Negative (Negative) Urine WBC 2 (0-5) /hpf Ur Squamous Epith Cells 8 H (0-4) /hpf Urine Bacteria Occasional H (None) /hpf Urine Mucus Many H (None) /hpf Urine HCG, Qual Not Detected (Not Detectd) Urine Opiates Screen Not Detected (NotDetected) Ur Oxycodone Screen Not Detected (NotDetected) Urine Methadone Screen Not Detected (NotDetected) Ur Propoxyphene Screen Not Detected (NotDetected) Ur Barbiturates Screen Not Detected (NotDetected) U Tricyclic Antidepress Not Detected (NotDetected) Ur Phencyclidine Scrn Detected H (NotDetected) Ur Amphetamines Screen Not Detected (NotDetected) U Methamphetamines Scrn Not Detected (NotDetected) U Benzodiazepines Scrn Detected H (NotDetected) Urine Cocaine Screen Not Detected (NotDetected) U Marijuana (THC) Screen Not Detected (NotDetected) - EKG Data EKG Comments: Ventricular rate 67 bpm, FL interval 158 ms, QRS druze 160 ms, QT/QTC 460/494. This is normal sinus there is a noted right bundle-branch block noted left fasicular block with no ST, elevation or depression. Disposition Clinical Impression: Anxiety, Suicidal ideation, Chest pain, Leukocytosis Disposition: ADMITTED IP TO THIS [facility] Condition: Serious Is patient prescribed a controlled substance at d/c from ED?: No Time of Disposition: 13:33 Decision to Admit Reason: Admit from EC Decision Date: 12/16/19 Decision Time: 13:33
[2019-12-16 12:45] LABS: Basophils # (A) 0.1 k/uL (0-0.2); Basophils % (A) 0 %; Eosinophils # (A) 1.3 k/uL (0-0.7); Eosinophils % (A) 8 %; HCT 42.9 % (34.0-46.0); HGB 13.6 gm/dL (11.4-16.0); Lymphocytes % (A) 13 %; MCH 28.1 pg (25.0-35.0); MCHC 31.7 g/dL (31.0-37.0); MCV 88.7 fL (80.0-100.0); Mean Platelet Volume 7.5; Monocytes # (A) 0.5 k/uL (0-1.0); Monocytes % (A) 4 %; Neutrophils # (A) 11.2 k/uL (1.3-7.7); Neutrophils % (A) 74 %; Platelet Count 248 k/uL (150-450); RBC 4.83 m/uL (3.80-5.40); RDW 14.7 % (11.5-15.5); WBC 15.2 k/uL (3.8-10.6)
[2019-12-16 13:03] LABS: ALT 13 U/L (4-34); AST 23 U/L (14-36); African American GFR (CKD) >90 (>60 ml/min/1.73 sqM); Albumin 4.1 g/dL (3.5-5.0); Alkaline Phosphatase 105 U/L (38-126); Anion Gap 15 mmol/L; Blood Urea Nitrogen 9 mg/dL (7-17); Calcium 9.3 mg/dL (8.4-10.2); Carbon Dioxide 17 mmol/L (22-30); Chloride 111 mmol/L (98-107); Glucose 127 mg/dL (74-99); Magnesium 1.8 mg/dL (1.6-2.3); Non-African American GFR(CKD) >90 (>60 ml/min/1.73 sqM); Potassium 3.9 mmol/L (3.5-5.1); Sodium 143 mmol/L (137-145); Total Bilirubin 0.3 mg/dL (0.2-1.3); Total Protein 7.4 g/dL (6.3-8.2)
--- NOTE | 2019-12-16 13:16 | XR ---
EXAMINATION TYPE: XR chest 2V DATE OF EXAM: 12/16/2019 HISTORY: Chest Pain. REFERENCE: Previous study dated 12/02/2019.. FINDINGS: The lungs remain clear. Pleural space are clear. The heart is not enlarged. IMPRESSION: NORMAL CHEST.
[2019-12-16] MEDS ORDERED: NALOXONE 0.4 MG/ML 1 ML VIAL IV PRN (13:34)
[2019-12-16 13:38] LABS: Appearance,Urine Cloudy (Clear); Bacteria,Urine Occasional /hpf; Bilirubin,Urine Negative (Negative); Blood,Urine Negative (Negative); Color,Urine Yellow; Glucose,Urine (UA) Negative (Negative); Ketones,Urine Negative (Negative); Leukocyte Esterase,Urine Negative (Negative); Mucus,Urine Many /hpf; Nitrite,Urine Negative (Negative); Protein,Urine Trace (Negative); Specific Gravity,Urine 1.026 (1.001-1.035); Squamous Epithelial Cell,Urine 8 /hpf (0-4); Urobilinogen,Urine <2.0 mg/dL (<2.0); WBC,Urine 2 /hpf (0-5)
[2019-12-16 13:44] LABS: Amphetamine Screen,Urine Not Detected (NotDetected); Barbiturate Screen,Urine Not Detected (NotDetected); Benzodiazepines Screen,Urine Detected (NotDetected); Cocaine Screen,Urine Not Detected (NotDetected); Methadone Screen, Urine Not Detected (NotDetected); Opiate Screen,Urine Not Detected (NotDetected); Oxycodone Screen, Urine Not Detected (NotDetected); Phencyclidine Screen,Urine Detected (NotDetected); Tricyclic Antidepressant,Urine Not Detected (NotDetected); Urn Cannabinoid Scrn Not Detected (NotDetected)
[2019-12-16] MEDS ORDERED: FLUTICASONE 50MCG/SPRAY NASAL 16GM EA NOSTRIL PRN (16:07)
[2019-12-16] MEDS ORDERED: DOCUSATE 100 MG CAP PO PRN (16:07)
--- NOTE | 2019-12-16 16:10 | P.HPIM ---
History of Present Illness This is a pleasant 39 years old female with past medical history of asthma, diabetes mellitus, seizure disorder, schizophrenia, bipolar disorder, chronic back pain, gout. 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 Patient states she presents because of recurrent chest pain, she says she has had before however this time she has it for 3 days of 01/09 in severity, central and radiating to the back felt like something sitting on her chest She denies dyspnea or coughing. She is breathing quietly and token easily. No hypoxia or tachypnea. She usually occurs voices and sees people but not the last 2 days. She has history of schizophrenia and bipolar disorder however she denies suicidal ideation Patient is a former smoker, quit drinking alcohol, no illicit drugs for 8 months now. Vitals are stable. She has mild leukocytosis of 15.2 K, her WBC is chronically elevated as seen in the system from 2014, 2016, 2018 and earlier this year, glucose 127, sodium and potassium and creatinine are within normal limits, troponin is negative less than 0.012, urine analysis is no suspicious of infection. Urine test is negative. Urine toxic drain is positive for phencyclidine and benzodiazepines EKG showing normal sinus rhythm at 67 bpm with no significant ST-T changes, right bundle branch block and left anterior fascicular block and QTC is 494. Chest x-ray: No acute process. Review of Systems CONSTITUTIONAL: No fever, no malaise, no fatigue. HEENT: No recent visual problems or hearing problems. Denied any sore throat. CARDIOVASCULAR: No orthopnea, PND, no palpitations, no syncope. PULMONARY: No shortness of breath, no cough, no hemoptysis. GASTROINTESTINAL: No diarrhea, no nausea, no vomiting, no abdominal pain. Normoactive bowel sounds. NEUROLOGICAL: No headaches, no weakness, no numbness. HEMATOLOGICAL: Denies any bleeding or petechiae. GENITOURINARY: Denies any burning micturition, frequency, or urgency. MUSCULOSKELETAL/RHEUMATOLOGICAL: Denies any joint pain, swelling, or any muscle pain. ENDOCRINE: Denies any polyuria or polydipsia. Past Medical History Past Medical History: Asthma, Diabetes Mellitus, Seizure Disorder Additional Past Medical History / Comment(s): OVARIAN CYST, Schizophrenia, BIPOLAR, SCOLOSIS, chronic back pain, gout History of Any Multi-Drug Resistant Organisms: None Reported Past Surgical History: Cholecystectomy Additional Past Surgical History / Comment(s): LEFT OVARY, D&C Past Anesthesia/Blood Transfusion Reactions: No Reported Reaction Past Psychological History: Anxiety, Bipolar, Depression, Schizophrenia Smoking Status: Former smoker Past Alcohol Use History: None Reported Past Drug Use History: None Reported - Past Family History Mother History Unknown: Yes Family Medical History: Cancer Additional Family Medical History / Comment(s): pt states is unaware of history Medications and Allergies Home Medications Medication Instructions Recorded Confirmed Type Atomoxetine HCl [Strattera] 60 mg PO DAILY@1200 12/16/18 12/16/19 History DULoxetine HCL [Cymbalta] 60 mg PO DAILY 12/16/18 12/16/19 History Fluticasone Nasal [place] [Flonase 1 spray EA NOSTRIL DAILY PRN 12/16/18 12/16/19 History Nasal [place]] Naltrexone HCl [Revia] 50 mg PO DAILY 12/16/18 12/16/19 History Zonisamide [Zonegran] 300 mg PO BID 12/16/18 12/16/19 History hydrOXYzine PAMOATE [Vistaril] 25 mg PO QID 12/16/18 12/16/19 History lamoTRIgine [LaMICtal] 200 mg PO DAILY 12/16/18 12/16/19 History Allopurinol [Zyloprim] 100 mg PO DAILY 12/16/19 12/16/19 History Baclofen 10 mg PO BID PRN 12/16/19 12/16/19 History Budesonide [Pulmicort Flexhaler] 1 puff INHALATION RT-BID 12/16/19 12/16/19 History Cholecalciferol [Vitamin D3 (25 5,000 unit PO DAILY 12/16/19 12/16/19 History Mcg = 1000 Iu)] Docusate [Colace] 100 mg PO BID PRN 12/16/19 12/16/19 History Ensure Complete 1 can PO DAILY 12/16/19 12/16/19 History Insulin Lispro [Admelog] 20 units SQ BID 12/16/19 12/16/19 History Montelukast [Singulair] 10 mg PO DAILY 12/16/19 12/16/19 History Omeprazole 20 mg PO DAILY 12/16/19 12/16/19 History Sulfamethox-Tmp 800-160Mg [Bactrim 1 tab PO BID 12/16/19 12/16/19 History DS 800-160 mg] Ziprasidone [Geodon] 40 mg PO BID 12/16/19 12/16/19 History Allergies Allergy/AdvReac Type Severity Reaction Status Date / Time cephalexin monohydrate Allergy Unknown Verified 12/16/19 14:47 [From Keflex] Iodinated Contrast Media Allergy Anaphylaxis Verified 12/16/19 14:47 [Iodinated Contrast Media - IV Dye] peanut Allergy Anaphylaxis Verified 12/16/19 14:47 Penicillins Allergy Anaphylaxis Verified 12/16/19 14:47 shellfish derived Allergy Anaphylaxis Verified 12/16/19 14:47 Physical Exam Vitals: Vital Signs Temp Pulse Pulse Resp BP BP Pulse Ox 12/16/19 14:17 98.5 F 66 16 149/67 99 12/16/19 13:29 98.1 F 69 18 118/65 98 12/16/19 11:30 98.2 F 79 16 138/87 98 Intake and Output 12/16/19 12/16/19 12/16/19 06:59 14:59 22:59 Other: # Voids 1 0 Weight 104.326 kg -GENERAL: The patient is alert and oriented x3, not in any acute distress. Obese HEENT: Pupils are round and equally reacting to light. EOMI. No scleral icterus. No conjunctival pallor. Normocephalic, atraumatic. No pharyngeal erythema. No thyromegaly. CARDIOVASCULAR: S1 and S2 present. No murmurs, rubs, or gallops. PULMONARY: Chest is clear to auscultation, no wheezing or crackles. ABDOMEN: Soft, nontender, nondistended, normoactive bowel sounds. No palpable organomegaly. MUSCULOSKELETAL: No joint swelling or deformity. EXTREMITIES: No cyanosis, clubbing, or pedal edema. NEUROLOGICAL: Gross neurological examination did not reveal any focal deficits. SKIN: No rashes. No petechiae Results CBC & Chem 7: 12/16/19 11:59 12/16/19 11:59 Labs: Abnormal Lab Results - Last 24 Hours (Table) 12/16/19 12/16/19 12/16/19 Range/Units 11:59 11:59 13:23 WBC 15.2 H (3.8-10.6) k/uL Neutrophils # 11.2 H (1.3-7.7) k/uL Eosinophils # 1.3 H (0-0.7) k/uL Chloride 111 H (98-107) mmol/L Carbon Dioxide 17 L (22-30) mmol/L Glucose 127 H (74-99) mg/dL Urine Appearance Cloudy H (Clear) Urine Protein Trace H (Negative) Ur Squamous Epith Cells 8 H (0-4) /hpf Urine Bacteria Occasional H (None) /hpf Urine Mucus Many H (None) /hpf Ur Phencyclidine Scrn Detected H (NotDetected) U Benzodiazepines Scrn Detected H (NotDetected) Thrombosis Risk Factor Assmnt - Choose All That Apply Any of the Below Risk Factors Present?: Yes Each Factor Represents 1 point: Obesity (BMI >25) Thrombosis Risk Factor Assessment Total Risk Factor Score: 1 Thrombosis Risk Factor Assessment Level: Low Risk Assessment and Plan Assessment: Chest pain, recurrent. Rule out cardiac causes Bifascicular block Diabetes mellitus Seizure disorder chronic leukocytosis Schizophrenia and bipolar disorder Chronic back pain History of gout History of asthma, not an active issue Plan: This is a pleasant 39 years old female who presents with chest pain, no suture troponin sent EKG. Cardiology consult. Psychiatric consult. Keep sitter at bedside Labs and medication were reviewed.. Continue same treatment. Continue with symptomatic treatment. Resume home medication. Monitor lytes and vitals. DVT and GI prophylaxis. Further recommendations of the clinical course of the patient DVT prophylaxis: Subcutaneous heparin GI Prophylaxis: Pepcid PT/OT: Pending Prognosis is guarded
[2019-12-16 17:06] LABS: Glucose,Whole Blood 108 mg/dL (75-99)
[2019-12-16] MEDS: hydrOXYzine PAMOATE 25 MG CAP PO SCH ×2 (17:17→20:43)
[2019-12-16 20:23] LABS: Glucose,Whole Blood 98 mg/dL (75-99)
[2019-12-16] MEDS: BACLOFEN 10 MG TAB PO PRN (20:40)
[2019-12-16] MEDS: ZIPRASIDONE 40 MG CAP PO SCH (20:40)
[2019-12-16] MEDS: ZONISAMIDE 100 MG CAP PO SCH (20:42)
[2019-12-16] MEDS: FAMOTIDINE 20 MG/2 ML VIAL IV SCH (20:43)
[2019-12-16] MEDS: HEPARIN SODIUM,PORCINE 5,000 UNIT/ML 1 ML VIAL SQ SCH (21:00)
[2019-12-17 06:14] LABS: Glucose,Whole Blood 104 mg/dL (75-99)
[2019-12-17 08:21] LABS: INR 0.9 (<1.2); Partial Thromboplastin Time 24.9 sec (22.0-30.0); Prothrombin Time 9.6 sec (9.0-12.0)
[2019-12-17 09:06] VITALS: BMI 38.5
[2019-12-17] MEDS: MONTELUKAST 10 MG TAB PO SCH (09:13)
[2019-12-17] MEDS: ZONISAMIDE 100 MG CAP PO SCH ×2 (09:13→21:32)
[2019-12-17] MEDS: FAMOTIDINE 20 MG/2 ML VIAL IV SCH ×2 (09:13→21:32)
[2019-12-17] MEDS: HEPARIN SODIUM,PORCINE 5,000 UNIT/ML 1 ML VIAL SQ SCH ×2 (09:13→21:32)
[2019-12-17] MEDS: lamoTRIgine 100 MG TAB PO SCH (09:14)
[2019-12-17] MEDS: ALLOPURINOL 100 MG TAB PO SCH (09:14)
[2019-12-17] MEDS: DULoxetine HCL 60 MG CAPSULE.DR PO SCH (09:14)
[2019-12-17] MEDS: hydrOXYzine PAMOATE 25 MG CAP PO SCH ×4 (09:14→21:34)
[2019-12-17] MEDS: ASPIRIN 81 MG PO SCH (09:14)
[2019-12-17] MEDS: ZIPRASIDONE 40 MG CAP PO SCH ×2 (09:21→21:36)
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
[2019-12-17 11:42] LABS: Glucose,Whole Blood 103 mg/dL (75-99)
[2019-12-17] MEDS: NALTREXONE HCL 50 MG TAB PO SCH (12:30)
--- NOTE | 2019-12-17 13:35 | P.PN ---
Subjective This is a pleasant 39 years old female with past medical history of asthma, diabetes mellitus, seizure disorder, schizophrenia, bipolar disorder, chronic back pain, gout. Patient has public guardian, and [facility] And she follows with Dr. Piper the computational linguist. Patient states she presents because of recurrent chest pain, she says she has had before however this time she has it for 3 days of 01/09 in severity, central and radiating to the back felt like something sitting on her chest She denies dyspnea or coughing. She is breathing quietly and token easily. No hypoxia or tachypnea. She usually occurs voices and sees people but not the last 2 days. She has history of schizophrenia and bipolar disorder however she denies suicidal ideation Patient is a former smoker, quit drinking alcohol, no illicit drugs for 8 months now. Vitals are stable. She has mild leukocytosis of 15.2 K, her WBC is chronically elevated as seen in the system from 2015, 2016, 2018 and earlier this year, glucose 127, sodium and potassium and creatinine are within normal limits, troponin is negative less than 0.012, urine analysis is no suspicious of infection. Urine test is negative. Urine toxic drain is positive for phencyclidine and benzodiazepines EKG showing normal sinus rhythm at 67 bpm with no significant ST-T changes, right bundle branch block and left anterior fascicular block and QTC is 494. Chest x-ray: No acute process. 12/17/2019 Patient says her chest pain is slightly better today and she rated at 4/10, subcostal at bedside Hemodynamically stable with a blood pressure 120/59, INR 0.9 and her sugar is 104, 103 Aspirin 81 mg psychiatric safety and health consultant for suicidal ideation Circulation Librarian recommended echocardiogram and obtaining records from her doctor HEENT: No recent visual problems or hearing problems. Denied any sore throat. CARDIOVASCULAR: No orthopnea, PND, no palpitations, no syncope. PULMONARY: No shortness of breath, no cough, no hemoptysis. GASTROINTESTINAL: No diarrhea, no nausea, no vomiting, no abdominal pain. Normoactive bowel sounds. NEUROLOGICAL: No headaches, no weakness, no numbness. HEMATOLOGICAL: Denies any bleeding or petechiae. GENITOURINARY: Denies any burning micturition, frequency, or urgency. MUSCULOSKELETAL/RHEUMATOLOGICAL: Denies any joint pain, swelling, or any muscle pain. ENDOCRINE: Denies any polyuria or polydipsia. Active Medications Generic Name Dose Route Start Last Admin Trade Name Freq PRN Reason Stop Dose Admin Allopurinol 100 mg 12/17/19 09:00 12/17/19 09:14 Zyloprim PO 100 mg DAILY ZHANG Administration Aspirin 81 mg 12/17/19 09:00 12/17/19 09:14 Aspirin PO 81 mg DAILY ZHANG Administration Baclofen 10 mg 12/16/19 16:07 12/16/19 20:40 Lioresal PO 10 mg BID PRN Administration Muscle Pain Docusate Sodium 100 mg 12/16/19 16:07 Colace PO BID PRN Constipation Duloxetine HCl 60 mg 12/17/19 09:00 12/17/19 09:14 Cymbalta PO 60 mg DAILY ZHANG Administration Famotidine 20 mg 12/16/19 21:00 12/17/19 09:13 Pepcid IV 20 mg Q12HR ZHANG Administration Fluticasone Propionate 1 spray 12/16/19 16:07 Flonase Nasal [place] EA NOSTRIL DAILY PRN Congestion Heparin Sodium (Porcine) 5,000 unit 12/16/19 21:00 12/17/19 09:13 Heparin SQ 5,000 unit Q12HR ZHANG Administration Hydroxyzine Pamoate 25 mg 12/16/19 18:00 12/17/19 12:29 Vistaril PO 25 mg QID ZHANG Administration Lamotrigine 200 mg 12/17/19 09:00 12/17/19 09:14 Lamictal PO 200 mg DAILY ZHANG Administration Montelukast Sodium 10 mg 12/17/19 09:00 12/17/19 09:13 Singulair PO 10 mg DAILY ZHANG Administration Naloxone HCl 0.2 mg 12/16/19 13:34 Narcan IV Q2M PRN Opioid Reversal Naltrexone HCl 50 mg 12/17/19 09:00 12/17/19 12:30 Revia PO 50 mg DAILY ZHANG Administration Ziprasidone 40 mg 12/16/19 21:00 12/17/19 09:21 Geodon PO Not Given BID ZHANG Zonisamide 300 mg 12/16/19 21:00 12/17/19 09:13 Zonegran PO 300 mg BID ZHANG Administration Objective - Vital Signs Vital signs: Vital Signs Temp 97.9 F 12/17/19 12:00 Pulse 63 12/17/19 12:00 Resp 18 12/17/19 12:00 BP 120/59 12/17/19 12:00 Pulse Ox 96 12/17/19 12:00 Intake & Output 12/16/19 12/17/19 12/17/19 18:59 06:59 18:59 Intake Total 120 565 Balance 120 565 Weight 104.326 kg 105 kg 105 kg Intake: Oral 120 565 Other: Voiding Method Toilet # Voids 0 2 - Exam -GENERAL: The patient is alert and oriented x3, not in any acute distress. Obese HEENT: Pupils are round and equally reacting to light. EOMI. No scleral icterus. No conjunctival pallor. Normocephalic, atraumatic. No pharyngeal erythema. No thyromegaly. CARDIOVASCULAR: S1 and S2 present. No murmurs, rubs, or gallops. PULMONARY: Chest is clear to auscultation, no wheezing or crackles. ABDOMEN: Soft, nontender, nondistended, normoactive bowel sounds. No palpable organomegaly. MUSCULOSKELETAL: No joint swelling or deformity. EXTREMITIES: No cyanosis, clubbing, or pedal edema. NEUROLOGICAL: Gross neurological examination did not reveal any focal deficits. SKIN: No rashes. No petechiae - Labs CBC & Chem 7: 12/16/19 11:59 12/16/19 11:59 Labs: Abnormal Lab Results - Last 24 Hours (Table) 12/16/19 12/16/19 12/17/19 Range/Units 13:23 16:35 06:12 POC Glucose (mg/dL) 108 H 104 H (75-99) mg/dL Urine Appearance Cloudy H (Clear) Urine Protein Trace H (Negative) Ur Squamous Epith Cells 8 H (0-4) /hpf Urine Bacteria Occasional H (None) /hpf Urine Mucus Many H (None) /hpf Ur Phencyclidine Scrn Detected H (NotDetected) U Benzodiazepines Scrn Detected H (NotDetected) 12/17/19 Range/Units 11:41 POC Glucose (mg/dL) 103 H (75-99) mg/dL Urine Appearance (Clear) Urine Protein (Negative) Ur Squamous Epith Cells (0-4) /hpf Urine Bacteria (None) /hpf Urine Mucus (None) /hpf Ur Phencyclidine Scrn (NotDetected) U Benzodiazepines Scrn (NotDetected) Assessment and Plan Assessment: Chest pain, recurrent. Rule out cardiac causes Bifascicular block Diabetes mellitus Seizure disorder chronic leukocytosis Schizophrenia and bipolar disorder Chronic back pain History of gout History of asthma, not an active issue Plan: This is a pleasant 39 years old female who presents with chest pain, no suture troponin sent EKG. Cardiology consult. Psychiatric consult. Keep sitter at bedside, check echocardiogram Labs and medication were reviewed.. Continue same treatment. Continue with symptomatic treatment. Resume home medication. Monitor lytes and vitals. DVT and GI prophylaxis. Further recommendations of the clinical course of the patient DVT prophylaxis: Subcutaneous heparin GI Prophylaxis: Pepcid PT/OT: Pending Prognosis is guarded
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
[2019-12-17 17:14] LABS: Glucose,Whole Blood 96 mg/dL (75-99)
[2019-12-17 20:12] LABS: Glucose,Whole Blood 109 mg/dL (75-99)
[2019-12-18 06:05] LABS: Glucose,Whole Blood 110 mg/dL (75-99)
[2019-12-18] MEDS: ALLOPURINOL 100 MG TAB PO SCH (09:41)
[2019-12-18] MEDS: FAMOTIDINE 20 MG/2 ML VIAL IV SCH ×2 (09:41→21:56)
[2019-12-18] MEDS: lamoTRIgine 100 MG TAB PO SCH (09:41)
[2019-12-18] MEDS: DULoxetine HCL 60 MG CAPSULE.DR PO SCH (09:41)
[2019-12-18] MEDS: ZIPRASIDONE 40 MG CAP PO SCH ×2 (09:41→21:59)
[2019-12-18] MEDS: HEPARIN SODIUM,PORCINE 5,000 UNIT/ML 1 ML VIAL SQ SCH ×2 (09:41→21:57)
[2019-12-18] MEDS: MONTELUKAST 10 MG TAB PO SCH (09:41)
[2019-12-18] MEDS: ASPIRIN 81 MG PO SCH (09:42)
[2019-12-18] MEDS: hydrOXYzine PAMOATE 25 MG CAP PO SCH ×4 (09:42→21:59)
[2019-12-18] MEDS: ZONISAMIDE 100 MG CAP PO SCH ×2 (10:17→21:58)
[2019-12-18] MEDS: NALTREXONE HCL 50 MG TAB PO SCH (10:17)
--- NOTE | 2019-12-18 10:56 | ECHOF ---
Referral Reason:LVF MEASUREMENTS -------- HEIGHT: 165.1 cm WEIGHT: 104.3 kg BP: 95/57 IVSd: 1.0 cm (0.6 - 1.1) LVIDd: 3.8 cm (3.9 - 5.3) LVPWd: 1.1 cm (0.6 - 1.1) IVSs: 1.6 cm LVIDs: 2.5 cm LVPWs: 1.4 cm Ao Diam: 2.4 cm (2.0 - 3.7) AV Cusp: 1.6 cm (1.5 - 2.6) LA Diam: 3.4 cm (2.7 - 3.8) MV EXCURSION: 15.618 mm (> 18.000) MV EF SLOPE: 103 mm/s (70 - 150) EPSS: 0.4 cm MV E Wayne: 0.83 m/s MV DecT: 240 ms MV A Wayne: 0.56 m/s MV E/A Ratio: 1.49 RAP: 5.00 mmHg RVSP: 18.23 mmHg FINDINGS -------- Sinus rhythm. This was a technically good study. The left ventricular size is normal. Left ventricular wall thickness is normal. Overall left vent ricular systolic function is normal with, an EF between 55 - 60 %. The right ventricle is normal in size. The left atrial size is normal. The right atrial size is normal. Interatrial and interventricular septum intact. The aortic valve is trileaflet and appears structurally normal. The mitral valve is normal. The mitral valve leaflets are mildly thickened. Mild mitral regurgita tion is present. The tricuspid valve appears structurally normal. Mild tricuspid regurgitation present. Right vent ricular systolic pressure is normal at < 35 mmHg. There is no pulmonic regurgitation present. The aortic root size is normal. Normal inferior vena cava with normal inspiratory collapse consistent with estimated right atrial pre ssure of 5 mmHg. There is no pericardial effusion. CONCLUSIONS -------- 1. Sinus rhythm. 2. This was a technically good study. 3. The left ventricular size is normal. 4. Left ventricular wall thickness is normal. 5. Overall left ventricular systolic function is normal with, an EF between 55 - 60 %. 6. The right ventricle is normal in size. 7. The left atrial size is normal. 8. The right atrial size is normal. 9. Interatrial and interventricular septum intact. 10. The aortic valve is trileaflet and appears structurally normal. 11. The mitral valve is normal. 12. The mitral valve leaflets are mildly thickened. 13. Mild mitral regurgitation is present. 14. The tricuspid valve appears structurally normal. 15. Mild tricuspid regurgitation present. 16. Right ventricular systolic pressure is normal at < 35 mmHg. 17. There is no pulmonic regurgitation present. 18. The aortic root size is normal. 19. Normal inferior vena cava with normal inspiratory collapse consistent with estimated right atrial pressure of 5 mmHg. 20. There is no pericardial effusion. INKER MACHINE: Lety Dunbar RDCS
[2019-12-18 12:00] LABS: Glucose,Whole Blood 111 mg/dL (75-99)
--- NOTE | 2019-12-18 13:23 | P.PN ---
Subjective Progress Note Date: 12/18/19 Is a 39-year-old female with history of diabetes, hyperlipidemia, schizophrenia, bipolar disorder, she is also a catheter. She presented to the hospital with symptoms of atypical chest discomfort. Seen in consultation by Dr. Kay over the weekend. Her initial urinalysis drug screen was positive for phencyclidine and benzodiazepines. Echocardiogram with Doppler study was performed which revealed a normal left ventricular systolic function. Patient denies any chest discomfort today. Objective - Vital Signs Vital signs: Vital Signs Temp 97.7 F 12/18/19 12:00 Pulse 63 12/18/19 12:00 Resp 18 12/18/19 12:00 BP 91/47 12/18/19 12:00 Pulse Ox 96 12/18/19 12:00 Intake & Output 12/17/19 12/18/19 12/18/19 18:59 06:59 18:59 Intake Total 643 686 9018 Balance 558 557 5573 Weight 105 kg 104.7 kg Intake: Oral 200 019 7720 Other: Voiding Method Toilet # Voids 2 - Exam Physical examination: Gen: This is a 39-year-old obese female. Patient is resting in bed and appears to be comfortable and in no acute distress. [email or web address] android developer is at the bedside. VS: Afebrile, heart rate 64, blood pressure 94/47, pulse ox 96% on room air HEENT: Head is atraumatic, normocephalic. Pupils equal, round. Sclerae is anicteric. NECK: Supple. No JVD. No lymphadenopathy. No thyromegaly. LUNGS: Clear to auscultation. No wheezes or rhonchi. No intercostal retractions. HEART: Regular rate and rhythm. No murmur. ABDOMEN: Soft. Bowel sounds are present. No masses. No tenderness. EXTREMITIES: No pedal edema. No calf tenderness. NEUROLOGICAL: Patient is awake, alert and oriented x3. Cranial nerves 2 through 12 are grossly intact. - Labs CBC & Chem 7: 12/16/19 11:59 12/16/19 11:59 Labs: Abnormal Lab Results - Last 24 Hours (Table) 12/17/19 12/18/19 12/18/19 Range/Units 20:11 06:03 11:59 POC Glucose (mg/dL) 109 H 110 H 111 H (75-99) mg/dL Assessment and Plan Plan: Assessment and plan #1 chest pain, atypical for acute coronary syndrome, troponins negative 3. Echo revealed normal left ventricular systolic function. #2 suicidal ideation #3 diabetes #4 hyperlipidemia #5 bipolar, schizophrenia Plan From cardiology's perspective, we will follow this patient along with you now on an as-needed basis only, please don't hesitate to call if you have any questions. DNP note has been reviewed, I agree with a documented findings and plan of care. Patient was seen and examined.
[2019-12-18] MEDS ORDERED: SODIUM CHLORIDE 0.9% 500 ML 500 ML IV ONE (14:09)
[2019-12-18] MEDS ORDERED: SODIUM CHLORIDE 0.9% 1,000 ML IV SCH (14:15)
[2019-12-18 14:48] LABS: African American GFR (CKD) >90 (>60 ml/min/1.73 sqM); Anion Gap 8 mmol/L; Blood Urea Nitrogen 11 mg/dL (7-17); Calcium 8.6 mg/dL (8.4-10.2); Carbon Dioxide 23 mmol/L (22-30); Chloride 107 mmol/L (98-107); Glucose 102 mg/dL (74-99); Non-African American GFR(CKD) 85 (>60 ml/min/1.73 sqM); Potassium 4.5 mmol/L (3.5-5.1); Sodium 138 mmol/L (137-145)
[2019-12-18 16:56] LABS: Glucose,Whole Blood 111 mg/dL (75-99)
[2019-12-18 20:33] LABS: Glucose,Whole Blood 101 mg/dL (75-99)
--- NOTE | 2019-12-18 23:00 | P.PN ---
Subjective This is a pleasant 39 years old female with past medical history of asthma, diabetes mellitus, seizure disorder, schizophrenia, bipolar disorder, chronic back pain, gout. Patient has public guardian, and [facility] And she follows with Dr. Piper the manager [place]. Patient states she presents because of recurrent chest pain, she says she has had before however this time she has it for 3 days of 0610 in severity, central and radiating to the back felt like something sitting on her chest She denies dyspnea or coughing. She is breathing quietly and token easily. No hypoxia or tachypnea. She usually occurs voices and sees people but not the last 2 days. She has history of schizophrenia and bipolar disorder however she denies suicidal ideation Patient is a former smoker, quit drinking alcohol, no illicit drugs for 8 months now. Vitals are stable. She has mild leukocytosis of 15.2 K, her WBC is chronically elevated as seen in the system from 2014, 2016, 2018 and earlier this year, glucose 127, sodium and potassium and creatinine are within normal limits, troponin is negative less than 0.012, urine analysis is no suspicious of infection. Urine test is negative. Urine toxic drain is positive for phencyclidine and benzodiazepines EKG showing normal sinus rhythm at 67 bpm with no significant ST-T changes, right bundle branch block and left anterior fascicular block and QTC is 494. Chest x-ray: No acute process. 12/17/2019 Patient says her chest pain is slightly better today and she rated at 4/10, subcostal at bedside Hemodynamically stable with a blood pressure 120/59, INR 0.9 and her sugar is 104, 103 Aspirin 81 mg psychiatric product/industry consultant for suicidal ideation [employer]tered [employer] Executive Director recommended echocardiogram and obtaining records from her doctor 12/18/2019 Patient remains in the [facility] unit with the need for close monitoring. She still have chest pain although she states it's less severe than yesterday at 3/10. Vitas looks stable, blood pressure on the low normal side 91/47 and patient has been asymptomatic with dizziness or think like that Echocardiogram: Ejection fraction 55-60% with no valvular heart disease or wall motion abnormality We'll give the patient some IV hydration for low blood pressure today Check d-dimer and BMP keep sitter at bedside, psychiatry consult was called HEENT: No recent visual problems or hearing problems. Denied any sore throat. CARDIOVASCULAR: No orthopnea, PND, no palpitations, no syncope. PULMONARY: No shortness of breath, no cough, no hemoptysis. GASTROINTESTINAL: No diarrhea, no nausea, no vomiting, no abdominal pain. Normoactive bowel sounds. NEUROLOGICAL: No headaches, no weakness, no numbness. HEMATOLOGICAL: Denies any bleeding or petechiae. GENITOURINARY: Denies any burning micturition, frequency, or urgency. MUSCULOSKELETAL/RHEUMATOLOGICAL: Denies any joint pain, swelling, or any muscle pain. ENDOCRINE: Denies any polyuria or polydipsia. Active Medications Generic Name Dose Route Start Last Admin Trade Name Freq PRN Reason Stop Dose Admin Allopurinol 100 mg 12/17/19 09:00 12/18/19 09:41 Zyloprim PO 100 mg DAILY ZHANG Administration Aspirin 81 mg 12/17/19 09:00 12/18/19 09:42 Aspirin PO 81 mg DAILY ZHANG Administration Baclofen 10 mg 12/16/19 16:07 12/16/19 20:40 Lioresal PO 10 mg BID PRN Administration Muscle Pain Docusate Sodium 100 mg 12/16/19 16:07 Colace PO BID PRN Constipation Duloxetine HCl 60 mg 12/17/19 09:00 12/18/19 09:41 Cymbalta PO 60 mg DAILY ZHANG Administration Famotidine 20 mg 12/16/19 21:00 12/18/19 09:41 Pepcid IV 20 mg Q12HR ZHANG Administration Fluticasone Propionate 1 spray 12/16/19 16:07 Flonase Nasal [place] EA NOSTRIL DAILY PRN Congestion Heparin Sodium (Porcine) 5,000 unit 12/16/19 21:00 12/18/19 09:41 Heparin SQ 5,000 unit Q12HR ZHANG Administration Hydroxyzine Pamoate 25 mg 12/16/19 18:00 12/18/19 13:23 Vistaril PO 25 mg QID ZHANG Administration Lamotrigine 200 mg 12/17/19 09:00 12/18/19 09:41 Lamictal PO 200 mg DAILY ZHANG Administration Montelukast Sodium 10 mg 12/17/19 09:00 12/18/19 09:41 Singulair PO 10 mg DAILY ZHANG Administration Naloxone HCl 0.2 mg 12/16/19 13:34 Narcan IV Q2M PRN Opioid Reversal Naltrexone HCl 50 mg 12/17/19 09:00 12/18/19 10:17 Revia PO 50 mg DAILY ZHANG Administration Ziprasidone 40 mg 12/16/19 21:00 12/18/19 09:41 Geodon PO 40 mg BID ZHANG Administration Zonisamide 300 mg 12/16/19 21:00 12/18/19 10:17 Zonegran PO 300 mg BID ZHANG Administration Objective - Vital Signs Vital signs: Vital Signs Temp 97.7 F 12/18/19 12:00 Pulse 63 12/18/19 12:00 Resp 18 12/18/19 12:00 BP 91/47 12/18/19 12:00 Pulse Ox 96 12/18/19 12:00 Intake & Output 12/17/19 12/18/19 12/18/19 18:59 06:59 18:59 Intake Total 077 346 5586 Balance 976 936 8603 Weight 105 kg 104.7 kg Intake: Oral 310 211 4101 Other: Voiding Method Toilet # Voids 2 - Exam -GENERAL: The patient is alert and oriented x3, not in any acute distress. Obese HEENT: Pupils are round and equally reacting to light. EOMI. No scleral icterus. No conjunctival pallor. Normocephalic, atraumatic. No pharyngeal erythema. No thyromegaly. CARDIOVASCULAR: S1 and S2 present. No murmurs, rubs, or gallops. PULMONARY: Chest is clear to auscultation, no wheezing or crackles. ABDOMEN: Soft, nontender, nondistended, normoactive bowel sounds. No palpable organomegaly. MUSCULOSKELETAL: No joint swelling or deformity. EXTREMITIES: No cyanosis, clubbing, or pedal edema. NEUROLOGICAL: Gross neurological examination did not reveal any focal deficits. SKIN: No rashes. No petechiae - Labs CBC & Chem 7: 12/16/19 11:59 12/18/19 14:19 Labs: Abnormal Lab Results - Last 24 Hours (Table) 12/17/19 12/18/19 12/18/19 Range/Units 20:11 06:03 11:59 POC Glucose (mg/dL) 109 H 110 H 111 H (75-99) mg/dL Assessment and Plan Assessment: Chest pain, recurrent. Cardiac causes were ruled out Bifascicular block Diabetes mellitus Seizure disorder chronic leukocytosis Schizophrenia and bipolar disorder Chronic back pain History of gout History of asthma, not an active issue Plan: This is a pleasant 39 years old female who presents with chest pain, cardiology cleared patient, we'll give her normal saline boluses for low normal blood pressure although is asymptomatic, check creatinine and d-dimer. Psychiatric consult. Keep sitter at bedside, Labs and medication were reviewed.. Continue same treatment. Continue with symptomatic treatment. Resume home medication. Monitor lytes and vitals. DVT and GI prophylaxis. Further recommendations of the clinical course of the patient DVT prophylaxis: Subcutaneous heparin GI Prophylaxis: Pepcid PT/OT: Pending Prognosis is guarded
[2019-12-18] MEDS: BACLOFEN 10 MG TAB PO PRN (23:37)
[2019-12-19 00:02] LABS: Appearance,Urine Clear (Clear); Bilirubin,Urine Negative (Negative); Blood,Urine Negative (Negative); Color,Urine Light Yellow; Glucose,Urine (UA) Negative (Negative); Ketones,Urine Negative (Negative); Leukocyte Esterase,Urine Negative (Negative); Nitrite,Urine Negative (Negative); PH, Urine 6.5 (5.0-8.0); Protein,Urine Negative (Negative); Specific Gravity,Urine 1.011 (1.001-1.035); Urobilinogen,Urine <2.0 mg/dL (<2.0)
[2019-12-19 06:29] LABS: Glucose,Whole Blood 97 mg/dL (75-99)
[2019-12-19 07:44] VITALS: TEMP 98.2
[2019-12-19] MEDS: hydrOXYzine PAMOATE 25 MG CAP PO SCH ×2 (09:02→13:08)
[2019-12-19] MEDS: lamoTRIgine 100 MG TAB PO SCH (09:02)
[2019-12-19] MEDS: ALLOPURINOL 100 MG TAB PO SCH (09:03)
[2019-12-19] MEDS: ASPIRIN 81 MG PO SCH (09:03)
[2019-12-19] MEDS: HEPARIN SODIUM,PORCINE 5,000 UNIT/ML 1 ML VIAL SQ SCH (09:03)
[2019-12-19] MEDS: MONTELUKAST 10 MG TAB PO SCH (09:03)
[2019-12-19] MEDS: DULoxetine HCL 60 MG CAPSULE.DR PO SCH (09:03)
[2019-12-19] MEDS: NALTREXONE HCL 50 MG TAB PO SCH (09:04)
[2019-12-19] MEDS: FAMOTIDINE 20 MG/2 ML VIAL IV SCH (09:04)
[2019-12-19] MEDS: SODIUM CHLORIDE 0.9% 1,000 ML IV SCH ×2 (09:05)
[2019-12-19] MEDS: ZONISAMIDE 100 MG CAP PO SCH (09:11)
[2019-12-19] MEDS: ZIPRASIDONE 40 MG CAP PO SCH ×2 (09:11→11:05)
[2019-12-19] MEDS ORDERED: SODIUM CHLORIDE 0.9% 1,000 ML IV SCH (09:45)
[2019-12-19 11:38] VITALS: BP 113/55; PULSE 70; RESP 16
[2019-12-19 11:55] LABS: Glucose,Whole Blood 71 mg/dL (75-99)
--- NOTE | 2019-12-19 14:41 | P.PN ---
Progress Note - Text Progress Note Date: 12/19/19 Psychiatry progress note: Interval History: Patient was seen today for psychiatric follow-up for major depressive disorder and borderline personality disorder along with substance use. Patient claims that her chest pain has been getting better and less frequent. She states that she feels that she has "no choice" with regards to option of where she can go upon discharge. She states that she has been trying to work with the guardian to see where she can go. Supplier Quality discussed with patient the options of where she would be able to go upon discharge however patient today was more receptive to going to a temporary location until her guardian finds her a new place to go. Patient was attempting to cooperate. She does have fairly poor insight into her condition however has been taking her medications. She states that her mood is "okay" and claims that her anxiety is mild. She states that she is sleeping throughout the night. At this time patient denies any suicidal or homical ideations, intent or plan. Patient denies any auditory, visual hallucinations and denies any paranoia or delusions. Patient denies any side effects from the medications and has been compliant with meds. Mental Status Exam: General Appearance: [Patient appears to be obese, wearing glasses, stated age is alert, attempts to be directable and cooperative.] Behavior: [Patient is calmly seated without any agitated behavior.] Times to be cooperative. Speech: Patient's speech is fluent and nonpressured. Mood/Affect: Mood is improving mildly, affect is congruent and constricted. Suicidality/Homicidality: Patient denies having any suicidal or homicidal ideation intent or plan. Perceptions: Patient denies any visual hallucinations [and denies any auditory hallucinations] Though content/process: [There is no evidence of any delusional thought content and thought process is linear and goal-directed.] [place]. Memory and concentration: AOX3, grossly intact for the purposes of this session Judgment and insight: Poor/impulsive, Improving mildly Assessment Depressive disorder unspecified Borderline personality disorder Plan: -At this time patient does not meet criteria for inpatient psychiatric hospitalization. Patient does have chronically poor insight and is chronically impulsive due to her personality disorder which will not change with admission to a psychiatric unit. -Patient was initially manipulative and making suicidal threats if she did not get her way with regards to discharge planning. Supplier Quality spoke with patient today about her discharge options in depth and patient was agreeable to let her guardian make arrangements for a change of housing in the near future however she cannot go where she wishes at this time. -Continue with current medications as prescribed -Continue with one-to-one sitter at bedside due to patient's impulsivity and chronic ability to act out. This can be discontinued prior to discharge. -Supplier Quality spoke with social media content manager and nurse taking care of patient to discuss treatment planning and discharge options. At this time social media content manager claims that patient will temporarily have to go back to her sister's home until they are able to find a new option for her in the near future. medical social worker will arrange for mobile crisis and ACT team from [facility] to follow patient closely once she is discharged. -Psychiatry will sign off at this time, please call with any questions.
--- NOTE | 2019-12-19 15:50 | P.PN ---
Subjective Progress Note Date: 12/19/19 Is a 39-year-old female with history of diabetes, hyperlipidemia, schizophrenia, bipolar disorder, she is also a catheter. She presented to the hospital with symptoms of atypical chest discomfort. Seen in consultation by Dr. Kay over the weekend. Her initial urinalysis drug screen was positive for phencyclidine and benzodiazepines. Echocardiogram with Doppler study was performed which revealed a normal left ventricular systolic function. Patient denies any chest discomfort today. 12/19/2019 Patient seen and examined this morning, hemodynamically stable. From cardiology's perspective, she may be able to be discharged home, we will follow her on an as-needed basis only. Objective - Vital Signs Vital signs: Vital Signs Temp 98.2 F 12/19/19 07:43 Pulse 70 12/19/19 11:38 Resp 16 12/19/19 11:38 BP 113/55 12/19/19 11:38 Pulse Ox 96 12/19/19 11:38 Intake & Output 12/18/19 12/19/19 12/19/19 18:59 06:59 18:59 Intake Total 2330 250 440 Balance 2330 250 440 Weight 104.3 kg Intake: IV 500 Sodium Chloride 0.9% 500 500 ml 500 ml @ 999 mls/hr IV .Q31M ONE Rx#:[id number] Oral 1830 250 440 Other: Voiding Method Toilet # Voids 2 1 # Bowel Movements 0 - Exam Physical examination: Gen: This is a 39-year-old obese female. Patient is resting in bed and appears to be comfortable and in no acute distress. schedule manager is at the bedside. VS: Afebrile, heart rate 64, blood pressure 94/47, pulse ox 96% on room air HEENT: Head is atraumatic, normocephalic. Pupils equal, round. Sclerae is anicteric. NECK: Supple. No JVD. No lymphadenopathy. No thyromegaly. LUNGS: Clear to auscultation. No wheezes or rhonchi. No intercostal retractions. HEART: Regular rate and rhythm. No murmur. ABDOMEN: Soft. Bowel sounds are present. No masses. No tenderness. EXTREMITIES: No pedal edema. No calf tenderness. NEUROLOGICAL: Patient is awake, alert and oriented x3. Cranial nerves 2 through 12 are grossly intact. - Labs CBC & Chem 7: 12/16/19 11:59 12/18/19 14:19 Labs: Abnormal Lab Results - Last 24 Hours (Table) 12/18/19 12/18/19 12/19/19 Range/Units 16:55 20:32 11:37 POC Glucose (mg/dL) 111 H 101 H 71 L (75-99) mg/dL Microbiology - Last 24 Hours (Table) 12/18/19 23:24 Urine Culture - Preliminary Urine,Voided Assessment and Plan Plan: Assessment and plan #1 chest pain, atypical for acute coronary syndrome, troponins negative 3. Echo revealed normal left ventricular systolic function. #2 suicidal ideation #3 diabetes #4 hyperlipidemia #5 bipolar, schizophrenia Plan From cardiology's perspective, we will follow this patient along with you now on an as-needed basis only, please don't hesitate to call if you have any questions. DNP note has been reviewed, I agree with a documented findings and plan of care. Patient was seen and examined.
[2019-12-19 16:49] LABS: Glucose,Whole Blood 80 mg/dL (75-99)
[2019-12-19] MEDS ORDERED: FAMOTIDINE 20 MG TAB PO SCH (21:00)
--- NOTE | 2019-12-19 22:02 | P.DS ---
Providers Date of admission: 12/18/19 10:39 Attending physician: Luke Garza Consults: 12/16/19 13:35 Consult Physician Routine Consulting Provider: Maximiliano Meade Consult Reason/Comments: Suicidal thoughts Do you want consulting provider notified?: Yes Consult Physician Routine Consulting Provider: Javed Tran Consult Reason/Comments: CP r/o Do you want consulting provider notified?: Yes Primary care physician: [facility] Course: Diagnoses: Chest pain, recurrent. 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 Patient has public guardian, and [facility]. And she follows with Dr. Piper the sawmill or timber yard worker. Patient states she presents because of recurrent chest pain for 3 days . Patient evaluated by sawmill or timber yard worker, and she was cleared for discharge. D-dimer was checked that was negative and patient with no respiratory symptoms, saturating 90s on room air and normal breathing rate. Cardiology pulmonary causes are cleared patient was found stable medically to be transferred to mental health unit based upon initial evaluation by psychiatrist on 12/16, however on reevaluation today psychiatrist actually cleared her for discharge and follow-up as an outpatient as he found her does not meet criteria for inpatient psychiatric admission with manipulative behavior trying to get gain and benefits, which each time I will visit patient she talks about problem with her house and and she was trying to find a new place which makes possible base for her reported mental health symptoms, patient is pleasant and lying in bed most of the time, especially patient is morbidly obese and she has limited activities. However patient denies suicidal or homicidal ideation upon discharge. On the day of discharge patient reports just been resolved and no other physical symptoms. Patient was cleared for discharge by both cardiology and psychiatric team Problems and management plan were discussed with the patient Patient was found stable and can be discharged home in guarded prognosis however he needs follow-up as an outpatient. Patient was instructed to follow up with PCP within one week I instructed the bedside. Stool informed the guardian about the cardiology appointment and the need for the patient to follow-up with [facility] psychiatrist and [facility] Gen: patient is a AAOx3, no distress. Obese CVS: S1-S2, RRR, no murmur Lungs: B/L CTA, no wheezing Abdomen: soft, no distention, no tenderness, positive bowel sounds Extremity: no leg edema or induration Time spent more than 35 minutes Patient Condition at Discharge: Serious Plan - Discharge Summary Discharge Rx Participant: No New Discharge Prescriptions: Continue lamoTRIgine [LaMICtal] 200 mg PO DAILY Fluticasone Nasal [place] [Flonase Nasal [place]] 1 spray EA NOSTRIL DAILY PRN PRN Reason: Congestion DULoxetine HCL [Cymbalta] 60 mg PO DAILY hydrOXYzine PAMOATE [Vistaril] 25 mg PO QID Zonisamide [Zonegran] 300 mg PO BID Naltrexone HCl [Revia] 50 mg PO DAILY Ziprasidone [Geodon] 40 mg PO BID Ensure Complete 1 can PO DAILY Docusate [Colace] 100 mg PO BID PRN PRN Reason: Constipation Allopurinol [Zyloprim] 100 mg PO DAILY Insulin Lispro [Admelog] 20 units SQ BID Baclofen 10 mg PO BID PRN PRN Reason: Muscle Pain Montelukast [Singulair] 10 mg PO DAILY Cholecalciferol [Vitamin D3 (25 Mcg = 1000 Iu)] 5,000 unit PO DAILY Budesonide [Pulmicort Flexhaler] 1 puff INHALATION RT-BID Omeprazole 20 mg PO DAILY Discontinued Atomoxetine HCl [Strattera] 60 mg PO DAILY@1200 Sulfamethox-Tmp 800-160Mg [Bactrim DS 800-160 mg] 1 tab PO BID Discharge Medication List DULoxetine HCL [Cymbalta] 60 mg PO DAILY 12/16/18 [History] Fluticasone Nasal [place] [Flonase Nasal [place]] 1 spray EA NOSTRIL DAILY PRN 12/16/18 [History] Naltrexone HCl [Revia] 50 mg PO DAILY 12/16/18 [History] Zonisamide [Zonegran] 300 mg PO BID 12/16/18 [History] hydrOXYzine PAMOATE [Vistaril] 25 mg PO QID 12/16/18 [History] lamoTRIgine [LaMICtal] 200 mg PO DAILY 12/16/18 [History] Allopurinol [Zyloprim] 100 mg PO DAILY 12/16/19 [History] Baclofen 10 mg PO BID PRN 12/16/19 [History] Budesonide [Pulmicort Flexhaler] 1 puff INHALATION RT-BID 12/16/19 [History] Cholecalciferol [Vitamin D3 (25 Mcg = 1000 Iu)] 5,000 unit PO DAILY 12/16/19 [History] Docusate [Colace] 100 mg PO BID PRN 12/16/19 [History] Ensure Complete 1 can PO DAILY 12/16/19 [History] Insulin Lispro [Admelog] 20 units SQ BID 12/16/19 [History] Montelukast [Singulair] 10 mg PO DAILY 12/16/19 [History] Omeprazole 20 mg PO DAILY 12/16/19 [History] Ziprasidone [Geodon] 40 mg PO BID 12/16/19 [History] Follow up Appointment(s)/Referral(s): [facility] [Primary Care Provider] - 1-2 days (Closed on . Please call to schedule appointment CRISIS PREVENTION TEAM TO MEET WITH PATIENT TODAY AT 5 AT HER SISTERS HOME UPON DISCHARGE) Lawrence Kay MD [STAFF PHYSICIAN] - 12/29/19 11:15 am (Wednesday) Patient Instructions/Handouts: Help Prevent Suicide (DC), Suicide Prevention (GEN) Activity/Diet/Wound Care/Special Instructions: previous diet activity is limited till you see your doctor Discharge Disposition: HOME SELF-CARE
== END 2019-12-19 17:28 | disposition home or self-care (01) | DRG 313 ==
LOC: EC 11:27 → 3SCARD 13:36 → OBSVTOIN 12-18 10:39
PROVIDERS: ADMIT Hospitalist; ATTEND Hospitalist
DX: R07.89 Other chest pain (principal); R45.851 Suicidal ideations; I45.2 Bifascicular block; Z11.59 Encounter for screening for other viral diseases; E66.01 Morbid (severe) obesity due to excess calories; F31.9 Bipolar disorder, unspecified; F20.9 Schizophrenia, unspecified; E11.9 Type 2 diabetes mellitus without complications; Z79.4 Long term (current) use of insulin; G40.909 Epilepsy, unspecified, not intractable, without status epilepticus; F60.3 Borderline personality disorder; G89.29 Other chronic pain; J45.909 Unspecified asthma, uncomplicated; F43.12 Post-traumatic stress disorder, chronic; M54.9 Dorsalgia, unspecified; M10.9 Gout, unspecified; M41.9 Scoliosis, unspecified; D72.829 Elevated white blood cell count, unspecified; F79 Unspecified intellectual disabilities; E78.5 Hyperlipidemia, unspecified; K59.00 Constipation, unspecified; M79.10 Myalgia, unspecified site; Z68.38 Body mass index [BMI] 38.0-38.9, adult; Z79.899 Other long term (current) drug therapy; Z90.49 Acquired absence of other specified parts of digestive tract; Z90.721 Acquired absence of ovaries, unilateral; Z87.891 Personal history of nicotine dependence; Z91.5 Personal history of self-harm; Z76.5 Malingerer [conscious simulation]; Z88.1 Allergy status to other antibiotic agents; Z91.041 Radiographic dye allergy status; Z91.010 Allergy to peanuts; Z88.0 Allergy status to penicillin; Z91.013 Allergy to seafood; Z83.3 Family history of diabetes mellitus; Z82.0 Family history of epilepsy and other diseases of the nervous system; Z82.5 Family history of asthma and other chronic lower respiratory diseases
CPT/HCPCS: 36415; 71046; 80048; 80053; 80306; 81001; 81003; 81025; 83735; 84484; 85025; 85379; 85610; 85730; 87086; 87635; 93005; 93306; 99285

== ENCOUNTER 2020-02-11 02:29 | Inpatient (IN) | payer MEDICAID, OTHER ==
[2020-02-11 03:38] LABS: Basophils # (A) 0.1 k/uL (0-0.2); Basophils % (A) 0 %; Eosinophils # (A) 1.3 k/uL (0-0.7); Eosinophils % (A) 7 %; HCT 40.7 % (34.0-46.0); HGB 13.5 gm/dL (11.4-16.0); Hypochromasia Slight; Lymphocytes # (A) 3.9 k/uL (1.0-4.8); Lymphocytes % (A) 20 %; MCH 28.8 pg (25.0-35.0); MCHC 33.1 g/dL (31.0-37.0); MCV 86.9 fL (80.0-100.0); Mean Platelet Volume 7.1; Monocytes # (A) 0.8 k/uL (0-1.0); Monocytes % (A) 4 %; Neutrophils # (A) 12.9 k/uL (1.3-7.7); Neutrophils % (A) 67 %; Platelet Count 241 k/uL (150-450); RBC 4.69 m/uL (3.80-5.40); RDW 13.9 % (11.5-15.5); WBC 19.2 k/uL (3.8-10.6)
[2020-02-11 03:53] LABS: ALT 12 U/L (4-34); AST 22 U/L (14-36); Acetaminophen 10.4 ug/mL; African American GFR (CKD) >90 (>60 ml/min/1.73 sqM); Albumin 4.2 g/dL (3.5-5.0); Alcohol <10 mg/dL; Alkaline Phosphatase 106 U/L (38-126); Anion Gap 11 mmol/L; Blood Urea Nitrogen 24 mg/dL (7-17); Calcium 9.1 mg/dL (8.4-10.2); Carbon Dioxide 23 mmol/L (22-30); Chloride 104 mmol/L (98-107); Glucose 98 mg/dL (74-99); Non-African American GFR(CKD) >90 (>60 ml/min/1.73 sqM); Salicylate 1.5 mg/dL; Sodium 138 mmol/L (137-145); Total Bilirubin 0.5 mg/dL (0.2-1.3); Total Protein 7.5 g/dL (6.3-8.2)
[2020-02-11 04:11] LABS: Amphetamine Screen,Urine Not Detected (NotDetected); Barbiturate Screen,Urine Not Detected (NotDetected); Benzodiazepines Screen,Urine Not Detected (NotDetected); Cocaine Screen,Urine Not Detected (NotDetected); Methadone Screen, Urine Not Detected (NotDetected); Opiate Screen,Urine Not Detected (NotDetected); Oxycodone Screen, Urine Not Detected (NotDetected); Phencyclidine Screen,Urine Not Detected (NotDetected); Tricyclic Antidepressant,Urine Not Detected (NotDetected); Urn Cannabinoid Scrn Not Detected (NotDetected)
--- NOTE | 2020-02-11 07:49 | ED ---
Psych HPI - General Source: patient, EMS Mode of arrival: EMS - History of Present Illness MD Complaint: suicidal ideation, feels depressed -: hour(s) Associated Psychiatric Symptoms: depression, suicidal ideation History of same: Yes Quality: getting worse Improves With: none Worsens With: none Context: significant life stressor Associated Symptoms: denies other symptoms <Silvestre Reyes - Last Filed: 02/11/20 07:50> <Santana Pastor - Last Filed: 02/11/20 09:45> - General Chief Complaint: Psychiatric Symptoms Stated Complaint: mental health Time Seen by Provider: 02/11/20 02:31 - History of Present Illness Initial Comments: This patient is a 39-year-old woman with history of mood disorder who states that on her family has been stressing her. They do not like the fact that she is now sober. She states that they have been posting about her on Facebook and it is caused her mood worsen. She was feeling so depressed that she took an overdose of cough medication. (Silvestre Reyes) - Related Data Home Medications Medication Instructions Recorded Confirmed DULoxetine HCL [Cymbalta] 60 mg PO DAILY 12/16/18 12/16/19 Fluticasone Nasal [place] [Flonase 1 spray EA NOSTRIL DAILY PRN 12/16/18 12/16/19 Nasal [place]] Naltrexone HCl [Revia] 50 mg PO DAILY 12/16/18 12/16/19 Zonisamide [Zonegran] 300 mg PO BID 12/16/18 12/16/19 hydrOXYzine PAMOATE [Vistaril] 25 mg PO QID 12/16/18 12/16/19 lamoTRIgine [LaMICtal] 200 mg PO DAILY 12/16/18 12/16/19 Allopurinol [Zyloprim] 100 mg PO DAILY 12/16/19 12/16/19 Baclofen 10 mg PO BID PRN 12/16/19 12/16/19 Budesonide [Pulmicort Flexhaler] 1 puff INHALATION RT-BID 12/16/19 12/16/19 Cholecalciferol [Vitamin D3 (25 5,000 unit PO DAILY 12/16/19 12/16/19 Mcg = 1000 Iu)] Docusate [Colace] 100 mg PO BID PRN 12/16/19 12/16/19 Ensure Complete 1 can PO DAILY 12/16/19 12/16/19 Insulin Lispro [Admelog] 20 units SQ BID 12/16/19 12/16/19 Montelukast [Singulair] 10 mg PO DAILY 12/16/19 12/16/19 Omeprazole 20 mg PO DAILY 12/16/19 12/16/19 Ziprasidone [Geodon] 40 mg PO BID 12/16/19 12/16/19 Allergies Allergy/AdvReac Type Severity Reaction Status Date / Time cephalexin monohydrate Allergy Unknown Verified 12/16/19 14:47 [From Keflex] Iodinated Contrast Media Allergy Anaphylaxis Verified 12/16/19 14:47 [Iodinated Contrast Media - IV Dye] peanut Allergy Anaphylaxis Verified 12/16/19 14:47 Penicillins Allergy Anaphylaxis Verified 12/16/19 14:47 shellfish derived Allergy Anaphylaxis Verified 12/16/19 14:47 Review of Systems ROS Other: All systems not noted in ROS Statement are negative. Constitutional: Denies: fever, chills Respiratory: Denies: cough, dyspnea Cardiovascular: Denies: chest pain, palpitations, edema, syncope Gastrointestinal: Reports: nausea. Denies: abdominal pain, vomiting, diarrhea Genitourinary: Denies: dysuria, hematuria Musculoskeletal: Denies: back pain Skin: Denies: rash Neurological: Denies: headache, weakness, numbness Psychiatric: Reports: depression, suicidal thoughts. Denies: auditory linden lucinations, visual hallucinations, homicidal thoughts <Silvestre Reyes - Last Filed: 02/11/20 07:50> ROS Other: All systems not noted in ROS Statement are negative. <Santana Pastor - Last Filed: 02/11/20 09:45> ROS Statement: Those systems with pertinent positive or pertinent negative responses have been documented in the HPI. Past Medical History Past Medical History: Asthma, Diabetes Mellitus, Seizure Disorder Additional Past Medical History / Comment(s): OVARIAN CYST, Schizophrenia, BIPOLAR, SCOLOSIS, chronic back pain, gout History of Any Multi-Drug Resistant Organisms: None Reported Past Surgical History: Cholecystectomy Additional Past Surgical History / Comment(s): LEFT OVARY, D&C Past Anesthesia/Blood Transfusion Reactions: No Reported Reaction Past Psychological History: Anxiety, Bipolar, Depression, Schizophrenia Smoking Status: Former smoker Past Alcohol Use History: None Reported Past Drug Use History: Cocaine - Past Family History Mother History Unknown: Yes Family Medical History: Cancer Additional Family Medical History / Comment(s): pt states is unaware of history <EricSilvestre Gonzalez Filed: 02/11/20 07:50> General Exam Limitations: no limitations General appearance: alert, in no apparent distress Head exam: Present: atraumatic, normocephalic Eye exam: Present: normal appearance. Absent: scleral icterus, conjunctival injection ENT exam: Present: normal oropharynx Neck exam: Present: normal inspection Respiratory exam: Present: normal lung sounds bilaterally. Absent: respiratory distress, wheezes, rales, rhonchi, stridor Cardiovascular Exam: Present: regular rate, normal rhythm, normal heart sounds. Absent: systolic murmur, diastolic murmur, rubs, gallop GI/Abdominal exam: Present: soft. Absent: distended, tenderness, guarding, r ebound, rigid, mass Extremities exam: Present: normal inspection, normal capillary refill. Absent: pedal edema, calf tenderness Back exam: Present: normal inspection. Absent: CVA tenderness (R), CVA tenderness (L) Neurological exam: Present: alert Psychiatric exam: Present: depressed, suicidal ideation. Absent: agitated, anxious, flat affect, manic, homicidal ideation Skin exam: Present: warm, dry, intact, normal color. Absent: rash <EricSilvestre Gonzalez Filed: 02/11/20 07:50> Course Vital Signs 02/11/20 02/11/20 02/11/20 02:32 04:45 08:12 Temperature 99.3 F Pulse Rate 69 59 L 60 Respiratory 19 17 18 Rate Blood Pressure 148/83 115/47 139/69 O2 Sat by Pulse 97 98 100 Oximetry Medical Decision Making - Lab Data Result diagrams: 02/11/20 03:30 02/11/20 03:30 - EKG Data -: EKG Interpreted by Me EKG shows normal: sinus rhythm, axis (Normal), intervals (QRS duration prolonged consistent with the bifascicular block), QRS complexes (Patient has a bifascicular block.) Rate: normal Interpretation: nonspecific ST-T wave changes, other (EKG is similar to comparison from November) <Silvestre Reyes Filed: 02/11/20 07:50> - Lab Data Result diagrams: 02/11/20 03:30 02/11/20 03:30 <Santana Pastor - Last Filed: 02/11/20 09:45> - Medical Decision Making 39-year-old female who had presented with suicide attempt, suspected Tylenol overdose. She is medically cleared with serial Tylenol levels she has a nontoxic Tylenol level at 4 hours. She was evaluated by EPS and felt to require inpatient psychiatric evaluation and treatment. She will be transferred. I did complete a clinical certification for this patient. (Santana Pastor) - Lab Data Lab Results 02/11/20 02/11/20 02/11/20 Range/Units 03:30 03:30 03:30 WBC 19.2 H (3.8-10.6) k/uL RBC 4.69 (3.80-5.40) m/uL Hgb 13.5 (11.4-16.0) gm/dL Hct 40.7 (34.0-46.0) % MCV 86.9 (80.0-100.0) fL MCH 28.8 (25.0-35.0) pg MCHC 33.1 (31.0-37.0) g/dL RDW 13.9 (11.5-15.5) % Plt Count 241 (150-450) k/uL Neutrophils % 67 % Lymphocytes % 20 % Monocytes % 4 % Eosinophils % 7 % Basophils % 0 % Neutrophils # 12.9 H (1.3-7.7) k/uL Lymphocytes # 3.9 (1.0-4.8) k/uL Monocytes # 0.8 (0-1.0) k/uL Eosinophils # 1.3 H (0-0.7) k/uL Basophils # 0.1 (0-0.2) k/uL Hypochromasia Slight Sodium (137-145) mmol/L Potassium (3.5-5.1) mmol/L Chloride (98-107) mmol/L Carbon Dioxide (22-30) mmol/L Anion Gap mmol/L BUN (7-17) mg/dL Creatinine (0.52-1.04) mg/dL Est GFR (CKD-EPI)AfAm (>60 ml/min/1.73 sqM) Est GFR (CKD-EPI)NonAf (>60 ml/min/1.73 sqM) Glucose (74-99) mg/dL Calcium (8.4-10.2) mg/dL Total Bilirubin (0.2-1.3) mg/dL AST (14-36) U/L ALT (4-34) U/L Alkaline Phosphatase (38-126) U/L Total Protein (6.3-8.2) g/dL Albumin (3.5-5.0) g/dL Urine HCG, Qual Not Detected (Not Detectd) Salicylates mg/dL Urine Opiates Screen Not Detected (NotDetected) Ur Oxycodone Screen Not Detected (NotDetected) Urine Methadone Screen Not Detected (NotDetected) Ur Propoxyphene Screen Not Detected (NotDetected) Acetaminophen ug/mL Ur Barbiturates Screen Not Detected (NotDetected) U Tricyclic Antidepress Not Detected (NotDetected) Ur Phencyclidine Scrn Not Detected (NotDetected) Ur Amphetamines Screen Not Detected (NotDetected) U Methamphetamines Scrn Detected H (NotDetected) U Benzodiazepines Scrn Not Detected (NotDetected) Urine Cocaine Screen Not Detected (NotDetected) U Marijuana (THC) Screen Not Detected (NotDetected) Serum Alcohol mg/dL 02/11/20 02/11/20 Range/Units 03:30 05:16 WBC (3.8-10.6) k/uL RBC (3.80-5.40) m/uL Hgb (11.4-16.0) gm/dL Hct (34.0-46.0) % MCV (80.0-100.0) fL MCH (25.0-35.0) pg MCHC (31.0-37.0) g/dL RDW (11.5-15.5) % Plt Count (150-450) k/uL Neutrophils % % Lymphocytes % % Monocytes % % Eosinophils % % Basophils % % Neutrophils # (1.3-7.7) k/uL Lymphocytes # (1.0-4.8) k/uL Monocytes # (0-1.0) k/uL Eosinophils # (0-0.7) k/uL Basophils # (0-0.2) k/uL Hypochromasia Sodium 138 (137-145) mmol/L Potassium 4.0 (3.5-5.1) mmol/L Chloride 104 (98-107) mmol/L Carbon Dioxide 23 (22-30) mmol/L Anion Gap 11 mmol/L BUN 24 H (7-17) mg/dL Creatinine 0.71 (0.52-1.04) mg/dL Est GFR (CKD-EPI)AfAm >90 (>60 ml/min/1.73 sqM) Est GFR (CKD-EPI)NonAf >90 (>60 ml/min/1.73 sqM) Glucose 98 (74-99) mg/dL Calcium 9.1 (8.4-10.2) mg/dL Total Bilirubin 0.5 (0.2-1.3) mg/dL AST 22 (14-36) U/L ALT 12 (4-34) U/L Alkaline Phosphatase 106 (38-126) U/L Total Protein 7.5 (6.3-8.2) g/dL Albumin 4.2 (3.5-5.0) g/dL Urine HCG, Qual (Not Detectd) Salicylates 1.5 mg/dL Urine Opiates Screen (NotDetected) Ur Oxycodone Screen (NotDetected) Urine Methadone Screen (NotDetected) Ur Propoxyphene Screen (NotDetected) Acetaminophen 10.4 <10.0 ug/mL Ur Barbiturates Screen (NotDetected) U Tricyclic Antidepress (NotDetected) Ur Phencyclidine Scrn (NotDetected) Ur Amphetamines Screen (NotDetected) U Methamphetamines Scrn (NotDetected) U Benzodiazepines Scrn (NotDetected) Urine Cocaine Screen (NotDetected) U Marijuana (THC) Screen (NotDetected) Serum Alcohol <10 mg/dL Disposition <Silvestre Reyes - Last Filed: 02/11/20 07:50> Is patient prescribed a controlled substance at d/c from ED?: No Time of Disposition: 09:44 - Out of Hospital Transfer - Req. Specs Out of Hospital Transfer - Requested Specifics: Psychiatric Non-ICU (Inpatient p sychiatric) <Santana Pastor - Last Filed: 02/11/20 09:45> Clinical Impression: Mood disorder, Suicidal ideation Disposition: OTHER INSTITUTION NOT DEFINED Condition: Stable Referrals: [facility] [Primary Care Provider] - 1-2 days
[2020-02-11] MEDS: DULoxetine HCL 60 MG CAPSULE.DR PO SCH (11:38)
[2020-02-11] MEDS: ALLOPURINOL 100 MG TAB PO SCH (11:38)
[2020-02-11] MEDS: hydrOXYzine PAMOATE 25 MG CAP PO SCH ×2 (11:38→19:02)
[2020-02-11] MEDS: MONTELUKAST 10 MG TAB PO SCH (11:38)
[2020-02-11] MEDS: ARIPiprazole 10 MG TAB PO SCH (11:38)
[2020-02-11] MEDS: ASPIRIN 325 MG TAB PO SCH (11:38)
[2020-02-12] MEDS: hydrOXYzine PAMOATE 25 MG CAP PO SCH ×3 (03:19→16:06)
[2020-02-12] MEDS ORDERED: FLUTICASONE 50MCG/SPRAY NASAL 16GM EA NOSTRIL PRN (14:52)
[2020-02-12] MEDS ORDERED: BACLOFEN 10 MG TAB PO PRN (14:52)
[2020-02-12] MEDS ORDERED: ACETAMINOPHEN TAB 325 MG TAB PO PRN (15:02)
[2020-02-12] MEDS: ALLOPURINOL 100 MG TAB PO SCH (16:03)
[2020-02-12] MEDS: ARIPiprazole 10 MG TAB PO SCH (16:04)
[2020-02-12] MEDS: DULoxetine HCL 60 MG CAPSULE.DR PO SCH (16:04)
[2020-02-12] MEDS: MONTELUKAST 10 MG TAB PO SCH (16:04)
[2020-02-12] MEDS: ASPIRIN 325 MG TAB PO SCH (16:04)
[2020-02-12 17:38] LABS: Glucose,Whole Blood 90 mg/dL (75-99)
[2020-02-12] MEDS: MAG HYDROX/AL HYDROX/SIMETH 30 ML CUP PO PRN (19:06)
[2020-02-12] MEDS: ZONISAMIDE 100 MG CAP PO SCH (19:07)
[2020-02-12 20:09] LABS: Glucose,Whole Blood 102 mg/dL (75-99)
[2020-02-12] MEDS: NYSTATIN 100,000UNIT/GM CREAM 30 GM TUBE TOPICAL SCH (22:33)
[2020-02-12] MEDS: traZODone HCL 100 MG TAB PO SCH ×2 (22:37→22:56)
[2020-02-12] MEDS: FLUTICASONE 110 MCG INHALER INHALATION SCH (22:56)
--- NOTE | 2020-02-12 23:19 | P.MDCNMH ---
History of Present Illness H&P Date: 02/12/20 Chief Complaint: medical evaluation 39 year old female with bipolar disorder, DM , seizure disorder. per ED notes, patient comes in due to suicidal ideaiton and depression however, patient denies that, and kept on telling me how her neighbour set her up due to a post on facebook and that she was never suicidal , then she tells me about issues regarding her apartment with broken AC that is causing her to have seizures, and neighbor friend who has promised to fix it but never did. patient is tangential in her thoughts. however, she denies any chest pain , trouble breathing , denies any URI symptoms, fever or chills. she denies history of bipolar disorder and DM . patient is not very reliable at this point Review of Systems Pertinent positives as noted in HPI. All other systems were reviewed and are negative Past Medical History Past Medical History: Asthma, Diabetes Mellitus, Seizure Disorder Additional Past Medical History / Comment(s): OVARIAN CYST, Schizophrenia, BIPOLAR, SCOLOSIS, chronic back pain, gout History of Any Multi-Drug Resistant Organisms: None Reported Past Surgical History: Cholecystectomy Additional Past Surgical History / Comment(s): LEFT OVARY, D&C Past Anesthesia/Blood Transfusion Reactions: No Reported Reaction Past Psychological History: Anxiety, Bipolar, Depression, Schizophrenia Past Alcohol Use History: None Reported Past Drug Use History: Cocaine - Past Family History Mother History Unknown: Yes Family Medical History: Cancer Additional Family Medical History / Comment(s): pt states is unaware of history Medications and Allergies Home Medications Medication Instructions Recorded Confirmed Type DULoxetine HCL [Cymbalta] 60 mg PO DAILY 12/16/18 02/11/20 History Fluticasone Nasal [place] [Flonase 1 spray EA NOSTRIL DAILY PRN 12/16/18 02/11/20 History Nasal [place]] Naltrexone HCl [Revia] 50 mg PO DAILY 12/16/18 02/11/20 History Zonisamide [Zonegran] 300 mg PO BID 12/16/18 02/11/20 History hydrOXYzine PAMOATE [Vistaril] 25 mg PO QID 12/16/18 02/11/20 History lamoTRIgine [LaMICtal] 200 mg PO DAILY 12/16/18 02/11/20 History Allopurinol [Zyloprim] 100 mg PO DAILY 12/16/19 02/11/20 History Baclofen 10 mg PO BID PRN 12/16/19 02/11/20 History Budesonide [Pulmicort Flexhaler] 1 puff INHALATION RT-BID 12/16/19 02/11/20 History Cholecalciferol [Vitamin D3 (25 5,000 unit PO DAILY 12/16/19 02/11/20 History Mcg = 1000 Iu)] Docusate [Colace] 100 mg PO BID PRN 12/16/19 02/11/20 History Ensure Complete 1 can PO DAILY 12/16/19 02/11/20 History Insulin Lispro [Admelog] 20 units SQ BID 12/16/19 02/11/20 History Montelukast [Singulair] 10 mg PO DAILY 12/16/19 02/11/20 History Omeprazole 20 mg PO DAILY 12/16/19 02/11/20 History ARIPiprazole [Abilify] 10 mg PO DAILY 02/11/20 02/11/20 History Aspirin 325 mg PO DAILY 02/11/20 02/11/20 History Cyanocobalamin [Vitamin B-12 1,000 mcg IM ONCE 02/11/20 02/11/20 History Injection] Nystatin 100,000Unit/gm Cream 1 applic TOPICAL BID 02/11/20 02/11/20 History [Mycostatin Cream] traZODone HCL [Desyrel] 100 mg PO HS 02/11/20 02/11/20 History Allergies Allergy/AdvReac Type Severity Reaction Status Date / Time cephalexin monohydrate Allergy Unknown Verified 02/11/20 09:54 [From Keflex] Iodinated Contrast Media Allergy Anaphylaxis Verified 02/11/20 09:54 [Iodinated Contrast Media - IV Dye] peanut Allergy Anaphylaxis Verified 02/11/20 09:54 Penicillins Allergy Anaphylaxis Verified 02/11/20 09:54 shellfish derived Allergy Anaphylaxis Verified 02/11/20 09:54 Physical Exam Vitals: Vital Signs Temp Pulse Pulse Resp BP BP Pulse Ox 02/12/20 16:26 98.0 F 79 16 105/49 98 02/12/20 14:32 63 18 98/52 96 02/12/20 10:00 16 02/12/20 09:00 16 02/12/20 08:00 73 16 134/69 96 02/12/20 01:00 63 17 128/60 98 Intake and Output 02/12/20 02/12/20 02/12/20 06:59 14:59 22:59 Other: Weight 110.7 kg Constitutional: No acute distress, conversant, pleasant Eyes: Anicteric sclerae, moist conjunctiva, Pupils equal round reactive to light ENMT: NC/AT Oropharynx clear, no erythema, or exudates Neck: Supple, FROM, no masses, or JVD No carotid bruits No thyromegaly Lungs: Clear to auscultation Clear to percussion Normal respiratory effort, no accessory muscle use Cardiovascular: Heart regular in rate and rhythm, No murmurs, gallops, or rubs No peripheral edema Abdominal: Soft Nontender, no guarding, rebound or rigidity Abdomen moving with respiration Normoactive bowel sounds No hepatomegaly, No splenomegaly No palpable mass No abdominal wall hernia noted Skin: Normal temperature, tone, texture, turgor No induration No subcutaneous nodules No rash, lesions No ulcers Extremities: No digital cyanosis No clubbing Pedal pulses intact and symmetrical Radial pulses intact and symmetrical No calf tenderness Psychiatric: Alert and oriented to person, place and time Appropriate affect fair judgement Neuro Muscles Strength 5/5 in all 4 extremities Sensation to light touch grossly present throughout Cranial nerves II-XII grossly intact No focal sensory deficits Lymphatics: no palpable cervical or supraclavicular , or inguinal lymph nodes Cranial Nerve Examination - Cranial Nerves Cranial Nerve II- Optic: Intact Cranial Nerve III- Oculomotor: Intact Cranial Nerve IV- Trochlear: Intact Cranial Nerve V- Trigeminal: Intact Cranial Nerve - Abducens: Intact Cranial Nerve VII- Facial: Intact Cranial Nerve VIII- Auditory: Intact Cranial Nerve IX- Glossopharyngeal: Intact Cranial Nerve X- Vagus: Intact Cranial Nerve XI- Accessory: Intact Cranial Nerve XII- Hypoglossal: Intact Results CBC & Chem 7: 02/11/20 03:30 02/11/20 03:30 Labs: Abnormal Lab Results - Last 24 Hours (Table) 02/12/20 Range/Units 20:08 POC Glucose (mg/dL) 102 H (75-99) mg/dL Assessment and Plan Assessment: depression and suicidal ideation , management per psych chronic conditions seizure disorder, resume home meds DM , insulin sliding scale while inpatient Gout , resume home meds GERD, resume PPI Thank you for allowing us to participate in the care of this patient. We will follow peripherally. Do not hesitate to contact us with questions. Someone can be reached from the [facility] hospitalist group at all hours of the day at [phone].
[2020-02-13] MEDS: INSULIN ASPART (NovoLOG) 100 UNIT/ML VIAL SQ SCH ×5 (01:23→20:14)
[2020-02-13 07:57] LABS: Glucose,Whole Blood 96 mg/dL (75-99)
[2020-02-13 08:40] LABS: Basophils # (A) 0.1 k/uL (0-0.2); Basophils % (A) 1 %; Eosinophils # (A) 1.3 k/uL (0-0.7); Eosinophils % (A) 7 %; HCT 44.9 % (34.0-46.0); Lymphocytes # (A) 3.9 k/uL (1.0-4.8); Lymphocytes % (A) 21 %; MCH 27.2 pg (25.0-35.0); MCHC 31.2 g/dL (31.0-37.0); MCV 87.3 fL (80.0-100.0); Mean Platelet Volume 6.9; Monocytes # (A) 0.7 k/uL (0-1.0); Monocytes % (A) 4 %; Neutrophils # (A) 12.4 k/uL (1.3-7.7); Neutrophils % (A) 67 %; Platelet Count 298 k/uL (150-450); RBC 5.14 m/uL (3.80-5.40); RDW 14.2 % (11.5-15.5); WBC 18.5 k/uL (3.8-10.6)
[2020-02-13] MEDS ORDERED: ENSURE COMPLETE PO SCH (09:00)
[2020-02-13] MEDS: FLUTICASONE 110 MCG INHALER INHALATION SCH ×2 (09:12→20:41)
[2020-02-13] MEDS: lamoTRIgine 100 MG TAB PO SCH (09:12)
[2020-02-13] MEDS: ASPIRIN 325 MG TAB PO SCH (09:12)
[2020-02-13] MEDS: ARIPiprazole 10 MG TAB PO SCH (09:13)
[2020-02-13] MEDS: ZONISAMIDE 100 MG CAP PO SCH ×2 (09:13→20:42)
[2020-02-13] MEDS: NALTREXONE HCL 50 MG TAB PO SCH (09:13)
[2020-02-13] MEDS: DULoxetine HCL 60 MG CAPSULE.DR PO SCH (09:13)
[2020-02-13] MEDS: ALLOPURINOL 100 MG TAB PO SCH (09:13)
[2020-02-13] MEDS: CHOLECALCIFEROL 1,000 UNIT TAB PO SCH (09:13)
[2020-02-13] MEDS: PANTOPRAZOLE 40 MG TABLET PO SCH (09:13)
[2020-02-13] MEDS: MONTELUKAST 10 MG TAB PO SCH (09:14)
[2020-02-13] MEDS: NYSTATIN 100,000UNIT/GM CREAM 30 GM TUBE TOPICAL SCH ×2 (10:27→20:41)
[2020-02-13 12:50] LABS: Glucose,Whole Blood 102 mg/dL (75-99)
[2020-02-13] MEDS ORDERED: ZIPRASIDONE 20 MG VIAL IM PRN (13:22)
--- NOTE | 2020-02-13 13:23 | P.HP ---
Psychiatric H&P - . H&P Date: 02/13/20 History & Physical: Allergies Allergy/AdvReac Type Severity Reaction Status Date / Time cephalexin monohydrate Allergy Unknown Verified 02/11/20 09:54 From Keflex Iodinated Contrast Media Allergy Anaphylaxis Verified 02/11/20 09:54 Iodinated Contrast Media - IV Dye peanut Allergy Anaphylaxis Verified 02/11/20 09:54 Penicillins Allergy Anaphylaxis Verified 02/11/20 09:54 shellfish derived Allergy Anaphylaxis Verified 02/11/20 09:54 Vital Signs Temp 97.9 F 02/13/20 06:51 Pulse 78 02/13/20 06:51 Resp 16 02/13/20 06:51 BP 115/71 02/13/20 06:51 Pulse Ox 98 02/13/20 06:51 Intake & Output 02/12/20 02/13/20 02/13/20 18:59 06:59 18:59 Weight 110.7 kg Laboratory Last Values WBC 18.5 k/uL (3.8-10.6) H 02/13/20 08:14 RBC 5.14 m/uL (3.80-5.40) 02/13/20 08:14 Hgb 14.0 gm/dL (11.4-16.0) 02/13/20 08:14 Hct 44.9 % (34.0-46.0) 02/13/20 08:14 MCV 87.3 fL (80.0-100.0) 02/13/20 08:14 MCH 27.2 pg (25.0-35.0) 02/13/20 08:14 MCHC 31.2 g/dL (31.0-37.0) 02/13/20 08:14 RDW 14.2 % (11.5-15.5) 02/13/20 08:14 Plt Count 298 k/uL (150-450) 02/13/20 08:14 Neutrophils % 67 % 02/13/20 08:14 Lymphocytes % 21 % 02/13/20 08:14 Monocytes % 4 % 02/13/20 08:14 Eosinophils % 7 % 02/13/20 08:14 Basophils % 1 % 02/13/20 08:14 Neutrophils # 12.4 k/uL (1.3-7.7) H 02/13/20 08:14 Lymphocytes # 3.9 k/uL (1.0-4.8) 02/13/20 08:14 Monocytes # 0.7 k/uL (0-1.0) 02/13/20 08:14 Eosinophils # 1.3 k/uL (0-0.7) H 02/13/20 08:14 Basophils # 0.1 k/uL (0-0.2) 02/13/20 08:14 Hypochromasia Slight 02/11/20 03:30 Sodium 138 mmol/L (137-145) 02/11/20 03:30 Potassium 4.0 mmol/L (3.5-5.1) 02/11/20 03:30 Chloride 104 mmol/L (98-107) 02/11/20 03:30 Carbon Dioxide 23 mmol/L (22-30) 02/11/20 03:30 Anion Gap 11 mmol/L 02/11/20 03:30 BUN 24 mg/dL (7-17) H 02/11/20 03:30 Creatinine 0.71 mg/dL (0.52-1.04) 02/11/20 03:30 Est GFR (CKD-EPI)AfAm >90 (>60 ml/min/1.73 sqM) 02/11/20 03:30 Est GFR (CKD-EPI)NonAf >90 (>60 ml/min/1.73 sqM) 02/11/20 03:30 Glucose 98 mg/dL (74-99) 02/11/20 03:30 POC Glucose (mg/dL) 102 mg/dL (75-99) H 02/13/20 12:45 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 Gris Araiza 02/13/20 12:45 Calcium 9.1 mg/dL (8.4-10.2) 02/11/20 03:30 Total Bilirubin 0.5 mg/dL (0.2-1.3) 02/11/20 03:30 AST 22 U/L (14-36) 02/11/20 03:30 ALT 12 U/L (4-34) 02/11/20 03:30 Alkaline Phosphatase 106 U/L (38-126) 02/11/20 03:30 Total Protein 7.5 g/dL (6.3-8.2) 02/11/20 03:30 Albumin 4.2 g/dL (3.5-5.0) 02/11/20 03:30 Triglycerides 191 mg/dL (<150) H 02/13/20 08:14 Cholesterol 212 mg/dL (<200) H 02/13/20 08:14 LDL Cholesterol, Calc 115 mg/dL (0-99) H 02/13/20 08:14 HDL Cholesterol 59 mg/dL (40-60) 02/13/20 08:14 TSH 2.520 mIU/L (0.465-4.680) 02/13/20 08:14 Urine HCG, Qual Not Detected (Not Detectd) 02/11/20 03:30 Salicylates 1.5 mg/dL 02/11/20 03:30 Urine Opiates Screen Not Detected (NotDetected) 02/11/20 03:30 Ur Oxycodone Screen Not Detected (NotDetected) 02/11/20 03:30 Urine Methadone Screen Not Detected (NotDetected) 02/11/20 03:30 Ur Propoxyphene Screen Not Detected (NotDetected) 02/11/20 03:30 Acetaminophen <10.0 ug/mL 02/11/20 05:16 Ur Barbiturates Screen Not Detected (NotDetected) 02/11/20 03:30 U Tricyclic Antidepress Not Detected (NotDetected) 02/11/20 03:30 Ur Phencyclidine Scrn Not Detected (NotDetected) 02/11/20 03:30 Ur Amphetamines Screen Not Detected (NotDetected) 02/11/20 03:30 U Methamphetamines Scrn Detected (NotDetected) H 02/11/20 03:30 U Benzodiazepines Scrn Not Detected (NotDetected) 02/11/20 03:30 Urine Cocaine Screen Not Detected (NotDetected) 02/11/20 03:30 U Marijuana (THC) Screen Not Detected (NotDetected) 02/11/20 03:30 Serum Alcohol <10 mg/dL 02/11/20 03:30 02/13/20 13:12 IDENTIFYING DATA: Patient is a 39-year-old female who currently lives alone in apartment has 2 kids which live in foster care and is currently and recently let go of her job that [employer]. HPI: Patient presented to the hospital 2 days ago with complaints of depression and suicidal thoughts after patient allegedly had a suicide attempt at home. Patient described in the ER going to family stressors and spoke about her family putting negative comments about her on Facebook and allegedly took an overdose on her cough medications. UDS was positive for methamphetamines and Tylenol level was 10.4. 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 Patient appeared to have some irritability during conversation however for the most part was attempting to cooperate. She spoke about her friend calling the ambulance for her as "she was worried about me drinking cough syrup" and states that she felt "a lot of people in my life don't like me". Patient claims that her family has been upset at her because she is been sober for 10 months from crack cocaine use and has been at [facility]. She states that she was trying to sleep as she has been feeling "more stressed" and claims that that's why she was drinking the cough syrup. She states that she was feeling depressed and was having poor sleep at night. She claims that her family was stating on Facebook that "I hate you and don't want you to be on earth". She states that this is because she does not do drugs anymore. She claims to be compliant with her medications at home. She states that she has auditory hallucinations during the day which she feels are distressing to her however cannot describe them. Patient denies any suicidal or homicidal ideations intent or plan. At this time patient denies any visual hallucinations. Patient denies any flight of ideas racing thoughts and increased in goal directed behavior. Patient admits to using no drugs or alcohol or cigarettes at this time PAST PSYCHIATRIC HISTORY: Patient states that she has a history of schizoaffective disorder. Patient was previously on several different psychiatric medications and claims that they've been changed several times and cannot list them. She states that she has been hospitalized several times in [place] and also at [facility]. She claims that her last admission was in May 2019. She claims that she follows up at [facility] with Dr. Zuñiga. She claims that she is had 3 suicide attempts where she tried to overdose. PMH: Seizures , asthma, diabetes and heart murmur ALLERGIES: as per EMR CHEMICAL DEPENDENCY HISTORY: as per HPI FAMILY PSYCHIATRIC/SUBSTANCE USE HISTORY: denies SOCIAL HISTORY: Patient was born and raised in [facility] and claims that she completed up to 11th grade. She claims to have 2 kids are currently in foster care. She states that she lives alone in apartment is . She states that she is to work at [employer] however was let go from her job recently. She states that she has been to [facility] previously and June of last year although until September of this year due to violation of her probation.. MENTAL STATUS EXAM: General Appearance: Patient appears to be stated age is overweight, alert, directable, and irritable at times. Patient appears to have poor hygiene and grooming. Behavior: Patient is seated without any agitated behavior. Irritable at times. Speech: Patient's speech is fluent and nonpressured. Mood/Affect: Patient reports their mood is "okay now", affect is congruent and irritable. Suicidality/Homicidality: Patient denies having any homicidal ideation intent or plan. Denies any suicidal ideations intent or plan Perceptions: Patient denies any visual hallucinations and she admits to auditory hallucinations which have been distressing to her. Though content/process: There is no evidence of any delusional thought content and thought process is linear and goal-directed. [place]. Catastrophizing. Memory and concentration: AOX3, grossly intact for the purposes of this session. Can spell "WORLD" backwards Judgment and insight: poor STRENGTHS/WEAKNESSES: strength is that patient is resilient. Weakness is that patient has poor judgment and is impulsive INTELLECT: average IMPRESSIONS: Schizoaffective disorder, depressive type PLAN: -Patient is admitted under voluntary status to MHU for stabilization of psychiatric symptoms and safety. Patient signed adult voluntary form and medication consent and is placed in patient's chart. -Medications : Will start patient on Abilify 10 mg daily for mood stabilization/psychosis with plan to titrate up as tolerated. Trazodone 100 mg daily at bedtime for insomnia/mood, naltrexone by mouth 50 mg daily for alcohol cravings, Lamictal 200 mg daily for mood stabilization/depression, Vistaril 25 mg when necessary for anxiety. Continue duloxetine 60 mg by mouth daily for mood/anxiety/pain. -Geodon PRN for agitation/aggression -Patient was informed of the risks, benefits and side effects of the medication and patient verbally consented to taking the medications. Patient signed med consent form and was placed in chart. -Internal Medicine consult to perform medical evaluation and physical. -NRT -not needed as patient does not smoke. -SW on board for discharge planning. Encourage patient to participate in groups to work on coping skills.
[2020-02-13 14:26] VITALS: BMI 40.6
[2020-02-13] MEDS: DOCUSATE 100 MG CAP PO PRN (16:49)
[2020-02-13 16:54] LABS: Glucose,Whole Blood 94 mg/dL (75-99)
[2020-02-13 19:23] LABS: Hemoglobin A1C 5.5 % (4.0-6.0)
[2020-02-13 19:58] LABS: Glucose,Whole Blood 104 mg/dL (75-99)
[2020-02-13] MEDS: traZODone HCL 100 MG TAB PO SCH (20:42)
[2020-02-13] MEDS: hydrOXYzine PAMOATE 25 MG CAP PO PRN (20:43)
[2020-02-14 07:46] LABS: Glucose,Whole Blood 117 mg/dL (75-99)
[2020-02-14] MEDS: INSULIN ASPART (NovoLOG) 100 UNIT/ML VIAL SQ SCH ×4 (08:06→20:10)
[2020-02-14] MEDS: ZONISAMIDE 100 MG CAP PO SCH ×2 (09:02→20:04)
[2020-02-14] MEDS: ARIPiprazole 10 MG TAB PO SCH (09:02)
[2020-02-14] MEDS: MONTELUKAST 10 MG TAB PO SCH (09:06)
[2020-02-14] MEDS: PANTOPRAZOLE 40 MG TABLET PO SCH (09:07)
[2020-02-14] MEDS: CHOLECALCIFEROL 1,000 UNIT TAB PO SCH (09:07)
[2020-02-14] MEDS: DULoxetine HCL 60 MG CAPSULE.DR PO SCH (09:07)
[2020-02-14] MEDS: lamoTRIgine 100 MG TAB PO SCH (09:07)
[2020-02-14] MEDS: NALTREXONE HCL 50 MG TAB PO SCH (09:07)
[2020-02-14] MEDS: FLUTICASONE 110 MCG INHALER INHALATION SCH ×2 (09:08→20:04)
[2020-02-14] MEDS: ALLOPURINOL 100 MG TAB PO SCH (09:08)
[2020-02-14] MEDS: hydrOXYzine PAMOATE 25 MG CAP PO PRN ×2 (09:09→16:50)
[2020-02-14] MEDS: ASPIRIN 325 MG TAB PO SCH (09:09)
[2020-02-14] MEDS: NYSTATIN 100,000UNIT/GM CREAM 30 GM TUBE TOPICAL SCH ×2 (09:14→20:04)
[2020-02-14 12:43] LABS: Glucose,Whole Blood 76 mg/dL (75-99)
--- NOTE | 2020-02-14 13:21 | P.PN ---
Progress Note - Text Progress Note Date: 02/14/20 Interval history: Patient was seen in the office ,patient was very somatic preoccupied and compl aining of having no bowel movement for 5 days,she stated that she did not use any Methamphetamine ,she stated "I do not know why my urine was positive for Meth,I just used pseudoephedrine and I had one and half bottle of cough syrup" Patient denies any current suicidal or homicidal ideation ,stated that she was frustrated prior to her hospitalization as "no caring about me since I has been clean for 10 months",she denies any current auditory or visual hallucination ,she denies being depressed but she endorses irritability and low frustration tolerance "I am staying in my room so I will not argue with staffs and you will extend my stay here,I do not belong to this place" Patient stated that she does not want to continue on Abilify as mood stabilizer due to weight gain and she was on Latuda before and was effective MENTAL STATUS EXAM: General Appearance: Patient appears to be stated age is overweight, alert, directable Patient appears to have poor hygiene and grooming. Behavior: Patient is seated without any agitated behavior. Speech: Patient's speech is fluent and non pressured. Mood/Affect: Patient reports their mood is "okay now", affect is congruent and appropriate to thought content Suicidality/Homicidality: Patient denies having any homicidal ideation intent or plan. Denies any suicidal ideations intent or plan Perceptions: Patient denies any visual hallucinations denies any auditory hallucinations Though content/process: There is no evidence of any delusional thought content and thought process is linear and goal-directed. Very somatic preoccupied and concrete Memory and concentration: AOX3, grossly intact Judgment and insight: limited Plan: Continue hospitalization. Continue safety precautions. Continue Cymbalta for depression ,Lamictal as mood stabilizer ,discontinue Abilify,start Latuda 40 mg PM as mood stabilizer,Sw on board for discharge plan Patient has a therapist "MELCHOR" at [facility] Discussed with her participation in milieu and groups instead of staying in her room I reviewed medical consult and labs
[2020-02-14] MEDS: MAGNESIUM HYDROXIDE 2,400 MG/10 ML CUP PO PRN (14:30)
[2020-02-14 15:36] LABS: Glucose,Whole Blood 100 mg/dL (75-99)
[2020-02-14 17:52] LABS: Glucose,Whole Blood 106 mg/dL (75-99)
[2020-02-14] MEDS: traZODone HCL 100 MG TAB PO SCH (20:04)
[2020-02-14 20:10] LABS: Glucose,Whole Blood 126 mg/dL (75-99)
[2020-02-14] MEDS: LURASIDONE 40 MG TAB PO SCH (20:44)
[2020-02-15 07:42] LABS: Glucose,Whole Blood 105 mg/dL (75-99)
[2020-02-15] MEDS: INSULIN ASPART (NovoLOG) 100 UNIT/ML VIAL SQ SCH ×4 (08:31→20:15)
[2020-02-15] MEDS: MONTELUKAST 10 MG TAB PO SCH (08:32)
[2020-02-15] MEDS: CHOLECALCIFEROL 1,000 UNIT TAB PO SCH (08:32)
[2020-02-15] MEDS: NALTREXONE HCL 50 MG TAB PO SCH (08:33)
[2020-02-15] MEDS: DULoxetine HCL 60 MG CAPSULE.DR PO SCH (08:33)
[2020-02-15] MEDS: lamoTRIgine 100 MG TAB PO SCH ×2 (08:33→20:42)
[2020-02-15] MEDS: ZONISAMIDE 100 MG CAP PO SCH ×2 (08:33→20:42)
[2020-02-15] MEDS: ASPIRIN 325 MG TAB PO SCH (08:33)
[2020-02-15] MEDS: PANTOPRAZOLE 40 MG TABLET PO SCH (08:33)
[2020-02-15] MEDS: ALLOPURINOL 100 MG TAB PO SCH (08:33)
[2020-02-15] MEDS: FLUTICASONE 110 MCG INHALER INHALATION SCH ×2 (08:39→21:35)
[2020-02-15] MEDS: NYSTATIN 100,000UNIT/GM CREAM 30 GM TUBE TOPICAL SCH ×2 (09:44→21:35)
[2020-02-15 11:37] LABS: Appearance,Urine Cloudy (Clear); Bacteria,Urine Moderate /hpf; Bilirubin,Urine Negative (Negative); Blood,Urine Negative (Negative); Color,Urine Yellow; Glucose,Urine (UA) Negative (Negative); Ketones,Urine Negative (Negative); Leukocyte Esterase,Urine Moderate (Negative); Mucus,Urine Moderate /hpf; Nitrite,Urine Negative (Negative); Protein,Urine Trace (Negative); RBC,Urine 4 /hpf (0-5); Specific Gravity,Urine 1.028 (1.001-1.035); Squamous Epithelial Cell,Urine 14 /hpf (0-4); Urobilinogen,Urine <2.0 mg/dL (<2.0); WBC,Urine 10 /hpf (0-5)
--- NOTE | 2020-02-15 11:52 | P.PN ---
Progress Note - Text Progress Note Date: 02/15/20 Interval history: Patient was seen in the office ,patient is still very somatic preoccupied ,st ated that she was not able to sleep last night and did request prn Vistaril,she endorses low frustration tolerance and getting annoyed by other patients. She talked in detail about her medical issues : having crohn and gout ,[facility] but "I was diabetic when I was not now",today blood glucose was 105 Patient denies any current suicidal or homicidal ideation ,",she denies any current auditory or visual hallucination ,she denies being depressed but still endorsing irritability and anxiety MENTAL STATUS EXAM: General Appearance: Patient appears to be stated age is overweight, alert, directable Patient appears to have poor hygiene and grooming. Behavior: Patient is seated without any agitated behavior. Speech: Patient's speech is fluent and non pressured. Mood/Affect: Patient reports their mood is "okay now", affect is congruent and appropriate to thought content Suicidality/Homicidality: Patient denies having any homicidal ideation intent or plan. Denies any suicidal ideations intent or plan Perceptions: Patient denies any visual hallucinations denies any auditory hallucinations Though content/process: There is no evidence of any delusional thought content and thought process is linear and goal-directed. Very somatic preoccupied and concrete Memory and concentration: AOX3, grossly intact Judgment and insight: limited Plan: Continue hospitalization. Continue safety precautions. Continue Cymbalta for depression ,increase lamictal to 200 mg BID to stabilize her mood , continue Latuda 40 mg PM as mood stabilizer,Sw on board for discharge plan Patient has a therapist "MELCHOR" at [facility] Discussed with her participation in milieu and groups instead of staying in her room
[2020-02-15] MEDS: DOCUSATE 100 MG CAP PO PRN ×2 (12:01→19:10)
[2020-02-15] MEDS: MAG HYDROX/AL HYDROX/SIMETH 30 ML CUP PO PRN (12:02)
[2020-02-15 12:44] LABS: Glucose,Whole Blood 90 mg/dL (75-99)
[2020-02-15] MEDS: MAGNESIUM HYDROXIDE 2,400 MG/10 ML CUP PO PRN (15:12)
[2020-02-15 17:55] LABS: Glucose,Whole Blood 98 mg/dL (75-99)
[2020-02-15] MEDS: LURASIDONE 40 MG TAB PO SCH (19:09)
[2020-02-15 20:02] LABS: Glucose,Whole Blood 122 mg/dL (75-99)
[2020-02-15] MEDS: traZODone HCL 100 MG TAB PO SCH (20:42)
[2020-02-16 06:26] VITALS: TEMP 97.9
[2020-02-16 07:44] LABS: Glucose,Whole Blood 94 mg/dL (75-99)
[2020-02-16] MEDS: INSULIN ASPART (NovoLOG) 100 UNIT/ML VIAL SQ SCH (07:44)
[2020-02-16] MEDS: PANTOPRAZOLE 40 MG TABLET PO SCH (07:46)
[2020-02-16] MEDS: ASPIRIN 325 MG TAB PO SCH (07:47)
[2020-02-16] MEDS: FLUTICASONE 110 MCG INHALER INHALATION SCH (07:47)
[2020-02-16] MEDS: ALLOPURINOL 100 MG TAB PO SCH (07:47)
[2020-02-16] MEDS: CHOLECALCIFEROL 1,000 UNIT TAB PO SCH (07:47)
[2020-02-16] MEDS: NYSTATIN 100,000UNIT/GM CREAM 30 GM TUBE TOPICAL SCH (07:48)
[2020-02-16] MEDS: MONTELUKAST 10 MG TAB PO SCH (07:48)
[2020-02-16] MEDS: lamoTRIgine 100 MG TAB PO SCH (07:48)
[2020-02-16] MEDS: ZONISAMIDE 100 MG CAP PO SCH (07:48)
[2020-02-16] MEDS: DULoxetine HCL 60 MG CAPSULE.DR PO SCH (07:48)
[2020-02-16] MEDS: NALTREXONE HCL 50 MG TAB PO SCH (07:48)
[2020-02-16 07:54] VITALS: BP 127/86; PULSE 75; RESP 20
--- NOTE | 2020-02-16 20:35 | DS ---
DISCHARGE SUMMARY DATE OF ADMISSION: 02/12/2020 DATE OF DISCHARGE: 02/16/2020. CONSULTATION: Dr. Lizet Stone. IDENTIFYING DATA AND HISTORY OF PRESENT ILLNESS: The patient was admitted under Dr. Tolliver, so please refer to his initial psychiatric evaluation. I covered the patient, as he was on vacation. The patient is 39-year-old female who currently lives alone. She presented to the hospital with complaints of depression and suicidal ideation. She has been talking about her family putting negative comments about her on Facebook. At the time of admission, her urine drug screen was positive for methamphetamine and the Tylenol level was 10.4. However, the patient stated that she did use a lot of pseudoephedrine and she never used methamphetamine. The patient stated that she has been clean from crack cocaine and alcohol for 10 months. For complete psychiatric evaluation, as I mentioned before, please refer to initial psych evaluation. HOSPITAL COURSE: The patient was admitted to the hospital on a voluntary basis. The patient was participating in group therapy. Dr. Tolliver started her on Abilify 10 mg as a mood stabilizer, and he did continue her Cymbalta 60 mg daily and Vistaril 25 mg 4 times a day as needed. In addition, he continued Lamictal 200 mg as a mood stabilizer. He did start the patient on naltrexone 50 mg for alcohol cravings. When I covered the patient, she stated that she was still having mood swings and she was very somatically preoccupied about not having any bowel movement for 5 days. We did add Milk of Magnesia with Colace. She stated that she has been getting frustrated by other patients, so I did increase the Lamictal to 200 twice a day to stabilize her mood. She was very reluctant to continue on Abilify due to weight gain, and she stated that in the past she was on Latuda 40 mg, and it did help her mood. So Abilify was discontinued and I did add Latuda 40 mg daily. The patient was complaining of insomnia at times, so she was given trazodone 100 mg as needed for sleep. On the last day of her stay here, the patient was able to have bowel movement and she was happy about this. She has a lot of obsession about her diet and about having Ensure at each meal, and we did accommodate that. MENTAL STATUS EXAMINATION AT THE TIME OF DISCHARGE: General appearance: The patient is overweight, casually dressed, with fair hygiene and grooming. Behavior: The patient was smiling, cooperative. Speech: Fluent and nonpressured. Mood and affect: The patient reported that her mood is much better. Affect is constricted. Suicidal and homicidal ideation: Patient denied having any homicidal ideation, intent or plan. She denied having any suicidal ideation, intent or plan. Perception: The patient denied any visual hallucination. She denied any auditory hallucination. Thought process: There is no evidence of any delusional thinking. Her thought process was goal-directed. Memory and concentration: She was alert, oriented x3. Insight and judgment are fair. DISCHARGE DIAGNOSES: 1. Schizoaffective disorder, depressive type. 2. History of cocaine use disorder. DISCHARGE MEDICATIONS: 1. Cymbalta 60 mg daily. 2. Latuda 40 mg daily. 3. Lamictal 200 mg twice a day. 4. Trazodone 100 mg at bedtime for sleep. 5. Vistaril or hydroxyzine 25 mg up to 4 tablets p.r.n. 6. Naltrexone or Revia 50 mg daily. RECOMMENDATIONS: The patient has to follow up with [facility] regarding her medical problems, diabetes, and gout, and chronic constipation. The patient has to follow up with [facility] for medication and therapy. Prognosis fair. MMODL / IJN: [id number] /
== END 2020-02-16 11:56 | disposition home or self-care (01) | DRG 885 ==
LOC: EC 02:29 → 3MHU 02-12 14:47
PROVIDERS: ADMIT Psychiatry & Neurology Psychiatry; ATTEND Psychiatry & Neurology Psychiatry
DX: F25.1 Schizoaffective disorder, depressive type (principal); R45.851 Suicidal ideations; Z68.41 Body mass index [BMI] 40.0-44.9, adult; J45.909 Unspecified asthma, uncomplicated; E11.9 Type 2 diabetes mellitus without complications; G40.909 Epilepsy, unspecified, not intractable, without status epilepticus; F41.9 Anxiety disorder, unspecified; F31.9 Bipolar disorder, unspecified; M10.9 Gout, unspecified; G47.00 Insomnia, unspecified; K21.9 Gastro-esophageal reflux disease without esophagitis; K59.09 Other constipation; E66.3 Overweight; Z79.4 Long term (current) use of insulin; Z79.51 Long term (current) use of inhaled steroids; Z79.899 Other long term (current) drug therapy; Z88.1 Allergy status to other antibiotic agents; Z87.891 Personal history of nicotine dependence; Z88.0 Allergy status to penicillin; Z91.041 Radiographic dye allergy status; Z91.010 Allergy to peanuts; Z91.013 Allergy to seafood; Z90.89 Acquired absence of other organs; Z98.890 Other specified postprocedural states; Z80.9 Family history of malignant neoplasm, unspecified
CPT/HCPCS: 36415; 80053; 80061; 80306; 80320; 80329; 81001; 81025; 82075; 83036; 83520; 84443; 85025; 93005; 99285

== ENCOUNTER 2020-02-21 10:55 | Observation (INO) | payer OTHER ==
[2020-02-21] MEDS ORDERED: ASPIRIN 81 MG PO STA (11:15)
[2020-02-21] MEDS ORDERED: SODIUM CHLORIDE 0.9% 500 ML 500 ML IV STA (11:15)
--- NOTE | 2020-02-21 11:20 | ED ---
Chest Pain HPI - General Chief Complaint: Chest Pain Stated Complaint: chest pain Time Seen by Provider: 02/21/20 11:04 Source: patient, RN notes reviewed Mode of arrival: ambulatory Limitations: no limitations - History of Present Illness Initial Comments: This a 39-year-old female presents emergency Department chief complaint of chest pain. Patient had some on-and-off issues which has been recently started throughout the night. She states she has substernal chest pain radiates to her shoulder and wants onto her back. Patient has no back pain this time. Patient states that she was admitted a few months ago though they did not do any further workup other than labs and echo. 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 Patient denies any shortness breath this time. Denies fever or chills no cough. Patient also states that she's been having recurrent seizures states that she is on sonogram. Patient states she has taken her medications though she has not recently had her Lasix or cardiac medications. - Related Data Home Medications Medication Instructions Recorded Confirmed Fluticasone Nasal [place] [Flonase 1 spray EA NOSTRIL DAILY PRN 12/16/18 02/21/20 Nasal [place]] Zonisamide [Zonegran] 300 mg PO BID 12/16/18 02/21/20 Baclofen 10 mg PO BID PRN 12/16/19 02/21/20 Budesonide [Pulmicort Flexhaler] 1 puff INHALATION RT-BID 12/16/19 02/21/20 Cholecalciferol [Vitamin D3 (25 5,000 unit PO DAILY 12/16/19 02/21/20 Mcg = 1000 Iu)] Docusate [Colace] 100 mg PO BID PRN 12/16/19 02/21/20 Insulin Lispro [Admelog] 20 units SQ BID 12/16/19 02/21/20 Montelukast [Singulair] 10 mg PO DAILY 12/16/19 02/21/20 Omeprazole 20 mg PO DAILY 12/16/19 02/21/20 allopurinoL [Zyloprim] 100 mg PO DAILY 12/16/19 02/21/20 Aspirin 325 mg PO DAILY 02/11/20 02/21/20 Cyanocobalamin [Vitamin B-12 1,000 mcg IM ONCE 02/11/20 02/21/20 Injection] Nystatin 100,000Unit/gm Cream 1 applic TOPICAL BID 02/11/20 02/21/20 [Mycostatin Cream] Previous Rx's Medication Instructions Recorded DULoxetine HCL [Cymbalta] 60 mg PO DAILY 30 Days capsule. 02/16/20 Lurasidone [Latuda] 40 mg PO Q24H 30 Days tab 02/16/20 Mag Hydrox/Al Hydrox/Simeth 30 ml PO Q4HR PRN ml 02/16/20 [Maalox] Naltrexone HCl [Revia] 50 mg PO DAILY 30 Days tab 02/16/20 hydrOXYzine pamoate [Vistaril] 25 mg PO QID 15 Days cap 02/16/20 lamoTRIgine [LaMICtal] 200 mg PO BID 30 Days tab 02/16/20 traZODone HCL [Desyrel] 100 mg PO HS 30 Days tab 02/16/20 Allergies Allergy/AdvReac Type Severity Reaction Status Date / Time cephalexin monohydrate Allergy Unknown Verified 02/21/20 12:17 [From Keflex] Iodinated Contrast Media Allergy Anaphylaxis Verified 02/21/20 12:17 [Iodinated Contrast Media - IV Dye] peanut Allergy Anaphylaxis Verified 02/21/20 12:17 Penicillins Allergy Anaphylaxis Verified 02/21/20 12:17 shellfish derived Allergy Anaphylaxis Verified 02/21/20 12:17 Review of Systems ROS Statement: Those systems with pertinent positive or pertinent negative responses have been documented in the HPI. ROS Other: All systems not noted in ROS Statement are negative. Past Medical History Past Medical History: Asthma, Diabetes Mellitus, Seizure Disorder Additional Past Medical History / Comment(s): OVARIAN CYST, Schizophrenia, BIPOLAR, SCOLOSIS, chronic back pain, gout History of Any Multi-Drug Resistant Organisms: None Reported Past Surgical History: Cholecystectomy Additional Past Surgical History / Comment(s): LEFT OVARY, D&C Past Anesthesia/Blood Transfusion Reactions: No Reported Reaction Past Psychological History: Anxiety, Bipolar, Depression, Schizophrenia Past Alcohol Use History: None Reported Past Drug Use History: Cocaine - Past Family History Mother History Unknown: Yes Family Medical History: Cancer Additional Family Medical History / Comment(s): pt states is unaware of history General Exam Limitations: no limitations General appearance: alert, in no apparent distress Head exam: Present: atraumatic, normocephalic, normal inspection Eye exam: Present: normal appearance, PERRL, EOMI. Absent: scleral icterus, conjunctival injection, periorbital swelling ENT exam: Present: normal exam, normal oropharynx, mucous membranes moist Neck exam: Present: normal inspection, full ROM. Absent: tenderness, meningismus, lymphadenopathy Respiratory exam: Present: normal lung sounds bilaterally. Absent: respiratory distress, wheezes, rales, rhonchi, stridor Cardiovascular Exam: Present: regular rate, normal rhythm, normal heart sounds. Absent: systolic murmur, diastolic murmur, rubs, gallop, clicks GI/Abdominal exam: Present: soft, normal bowel sounds. Absent: distended, tenderness, guarding, rebound, rigid Neurological exam: Present: alert, oriented X3, CN II-XII intact Skin exam: Present: warm, dry, intact, normal color. Absent: rash Course Vital Signs 02/21/20 10:58 Temperature 98.2 F Pulse Rate 73 Respiratory 16 Rate Blood Pressure 128/73 O2 Sat by Pulse 98 Oximetry Chest Pain [facility] 39-year-old female presented for substernal chest pain. Patient does have some cardiac history. Patient be admitted for cardiac Patient. Troponin EKG Showed No Acute Changes Disposition Clinical Impression: Chest pain Disposition: ADMITTED IP TO THIS HOSP Condition: Fair Referrals: [facility] [Primary Care Provider] - 1-2 days
--- NOTE | 2020-02-21 11:54 | XR ---
EXAMINATION TYPE: XR chest 2V DATE OF EXAM: 02/21/2020 COMPARISON: 12/16/2019 TECHNIQUE: PA and lateral views submitted. HISTORY: Chest pain FINDINGS: Heart size normal with no pleural effusion. No consolidation. There is a lucency along the lateral ma rgin of the right lung. IMPRESSION: 1. Cannot exclude a small 5% right-sided pneumothorax laterally right lung. Correlate clinically. Rep eat chest x-ray could be obtained to exclude soft tissue artifact.
[2020-02-21 12:03] LABS: Basophils % (A) 0 %; Eosinophils # (A) 0.7 k/uL (0-0.7); Eosinophils % (A) 5 %; HGB 12.1 gm/dL (11.4-16.0); Lymphocytes # (A) 2.5 k/uL (1.0-4.8); Lymphocytes % (A) 18 %; MCH 28.2 pg (25.0-35.0); MCV 88.3 fL (80.0-100.0); Monocytes # (A) 0.4 k/uL (0-1.0); Monocytes % (A) 3 %; Neutrophils # (A) 10.4 k/uL (1.3-7.7); Neutrophils % (A) 73 %; Platelet Count 242 k/uL (150-450); WBC 14.3 k/uL (3.8-10.6)
[2020-02-21 12:07] LABS: INR 0.9 (<1.2); Partial Thromboplastin Time 23.6 sec (22.0-30.0); Prothrombin Time 9.3 sec (9.0-12.0)
[2020-02-21 12:10] LABS: ALT 16 U/L (4-34); AST 21 U/L (14-36); African American GFR (CKD) >90 (>60 ml/min/1.73 sqM); Albumin 3.9 g/dL (3.5-5.0); Alkaline Phosphatase 94 U/L (38-126); Anion Gap 9 mmol/L; Blood Urea Nitrogen 26 mg/dL (7-17); Carbon Dioxide 23 mmol/L (22-30); Chloride 106 mmol/L (98-107); Glucose 106 mg/dL (74-99); Magnesium 1.9 mg/dL (1.6-2.3); Non-African American GFR(CKD) >90 (>60 ml/min/1.73 sqM); Potassium 4.5 mmol/L (3.5-5.1); Sodium 138 mmol/L (137-145); Total Bilirubin 0.2 mg/dL (0.2-1.3)
--- NOTE | 2020-02-21 13:01 | CT ---
EXAMINATION TYPE: CT chest wo con DATE OF EXAM: 02/21/2020 COMPARISON: Chest x-ray 02/21/2020 HISTORY: Chest pain and Difficulty breathing CT DLP: 834.8 mGycm. Automated Exposure Control for Dose Reduction was Utilized. TECHNIQUE: CT scan of the thorax is performed without IV contrast. FINDINGS: LUNGS: The lungs are grossly clear, there 3 mm nodule right upper lobe laterally image 19. 2 small to characterize.. There is no pleural effusion or pneumothorax seen. The tracheobronchial tree is pa tent. MEDIASTINUM: Lack of IV contrast is noted to limit evaluation for mediastinal and especially hilar ad enopathy. There are no definitive greater than 1 cm hilar or mediastinal lymph nodes. No cardiomega ly or pericardial effusion is seen. OTHER: Cortical left renal calculus noted is postcholecystectomy changes. Hypertrophic and degenerati ve change of the spine. IMPRESSION: 1. No acute process. There is a 3 mm pulmonary nodule right upper lobe likely benign. 6-12 month foll ow-up recommended to confirm stability. 2. No evidence of pneumothorax. Chest x-ray abnormality likely represent overlying soft tissue artifa ct.
[2020-02-21] MEDS ORDERED: NITROGLYCERIN SL TABS 0.4 MG TAB SUBLINGUAL PRN (13:42)
[2020-02-21] MEDS ORDERED: HEPARIN SODIUM,PORCINE 5,000 UNIT/ML 1 ML VIAL IV ONE (13:42)
[2020-02-21] MEDS ORDERED: HEPARIN SOD,PORK IN 0.45% NACL 25,000 UNIT in 0.45% NACL 1 250ML.BAG IV SCH (13:45)
[2020-02-21] MEDS ORDERED: DOCUSATE 100 MG CAP PO PRN (19:18)
[2020-02-21] MEDS ORDERED: BACLOFEN 10 MG TAB PO PRN (19:18)
[2020-02-21] MEDS ORDERED: FLUTICASONE 50MCG/SPRAY NASAL 16GM EA NOSTRIL PRN (19:18)
[2020-02-21] MEDS ORDERED: MAG HYDROX/AL HYDROX/SIMETH 30 ML CUP PO PRN (19:18)
[2020-02-21] MEDS: hydrOXYzine pamoate 25 MG CAP PO SCH (20:29)
[2020-02-21] MEDS: lamoTRIgine 100 MG TAB PO SCH (20:29)
[2020-02-21] MEDS: ZONISAMIDE 100 MG CAP PO SCH (20:29)
[2020-02-21] MEDS: NYSTATIN 100,000UNIT/GM CREAM 30 GM TUBE TOPICAL SCH (20:29)
[2020-02-21] MEDS ORDERED: CAFFEINE CITRATE 60 MG/3 ML VIAL IV PRN (20:32)
[2020-02-21] MEDS ORDERED: AMINOPHYLLINE 500 MG/20 ML VIAL IV PRN (20:32)
[2020-02-21] MEDS: HEPARIN SODIUM,PORCINE 5,000 UNIT/ML 1 ML VIAL IV PRN (20:49)
[2020-02-21] MEDS ORDERED: traZODone HCL 100 MG TAB PO SCH (21:00)
[2020-02-21] MEDS: FLUTICASONE 110 MCG INHALER INHALATION SCH (21:50)
--- NOTE | 2020-02-21 21:55 | HP ---
HISTORY AND PHYSICAL This patient is a 39-year-old white female who came into the ER due to chest pain on and off through the night. It was substernal chest pain radiating to her shoulder and then to her back. No pain at this time. She was admitted a few months ago. Did not do anything other than an echo and some labs. Difficulty with her heart disease. 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 No fever or cough. No chills. No hemoptysis. CT of the chest was negative in the ER for any infiltrates or pulmonary embolism. HOME MEDICINES: Fluticasone nasal spray, Zonegran 300 b.i.d., baclofen 10 mg b.i.d., Pulmicort b.i.d. nebulizer, Colace 100 b.i.d., Admelog 20 units b.i.d., Singulair 10 mg daily, omeprazole 20 daily, zyloprim 100 daily, aspirin 325 daily, nystatin swish and swallow, B12, vitamin D. ALLERGIES: KEFLEX, IODINE, PEANUTS, PENICILLIN, SHELLFISH. REVIEW OF SYSTEMS: Fourteen points negative except for mentioned before. PAST MEDICAL HISTORY: Seizure disorder, diabetes mellitus, asthma, ovarian cyst, schizophrenia, bipolar, scoliosis, anxiety, depression, prior history of cocaine. FAMILY HISTORY: Mother with cancer. PHYSICAL EXAMINATION: Vital signs stable. Afebrile. Temperature 98.2, pulse 73, respiratory rate 16-18, blood pressure 120/73, O2 saturation 98. HEAD: Normocephalic, atraumatic. GENERAL: Alert. No acute distress. OPHTHALMOLOGIC: Pupils equal, round, reactive to light and accommodation. ENT: Normal exam. NECK: Supple. No mass. RESPIRATORY: Normal lung sounds. No rales, rhonchi or wheezes. CARDIOVASCULAR: Regular rate and rhythm. Normal heart sounds. GI: Soft. Normal bowel sounds. No mass. NEUROLOGIC: Cranial nerves are intact. SKIN: Warm and dry. ASSESSMENT: 1. [id number]-[id number]-old female with substernal chest pain. Troponin and EKG show no acute changes. 2. Leukocytosis; unclear etiology. PLAN: Admit to the hospital. Rule out myocardial infarction. CT of the chest is negative. Possible stress test will be needed. Wait for cardiology recommendations. Will check for any signs of urinary tract infection. BNP is normal. Troponin so far is normal. Lipase is normal. Please see further orders. MMODL / IJN: [id number] /
[2020-02-22 03:01] VITALS: TEMP 98
[2020-02-22 03:14] LABS: Mean Platelet Volume 7.1; Platelet Count 230 k/uL (150-450)
[2020-02-22 03:31] LABS: Cholesterol 192 mg/dL (<200); HDL Cholesterol 54 mg/dL (40-60); LDL Cholesterol,Calculated 77 mg/dL (0-99); Triglycerides 306 mg/dL (<150)
[2020-02-22] MEDS: HEPARIN SODIUM,PORCINE 5,000 UNIT/ML 1 ML VIAL IV PRN (03:52)
[2020-02-22] MEDS ORDERED: DIPYRIDAMOLE IV ONE (07:00)
[2020-02-22] MEDS ORDERED: SODIUM CHLORIDE 0.9% IV ONE (07:00)
[2020-02-22] MEDS ORDERED: PANTOPRAZOLE 40 MG TABLET PO SCH (07:30)
[2020-02-22] MEDS: FLUTICASONE 110 MCG INHALER INHALATION SCH (08:12)
[2020-02-22] MEDS: hydrOXYzine pamoate 25 MG CAP PO SCH (08:18)
[2020-02-22] MEDS: lamoTRIgine 100 MG TAB PO SCH (08:18)
[2020-02-22] MEDS: ZONISAMIDE 100 MG CAP PO SCH (08:19)
[2020-02-22] MEDS: NYSTATIN 100,000UNIT/GM CREAM 30 GM TUBE TOPICAL SCH (08:19)
[2020-02-22] MEDS ORDERED: CHOLECALCIFEROL 1,000 UNIT TAB PO SCH (09:00)
[2020-02-22] MEDS ORDERED: DULoxetine HCL 60 MG CAPSULE.DR PO SCH (09:00)
[2020-02-22] MEDS ORDERED: allopurinoL 100 MG TAB PO SCH (09:00)
[2020-02-22] MEDS ORDERED: NALTREXONE HCL 50 MG TAB PO SCH (09:00)
[2020-02-22] MEDS ORDERED: LURASIDONE 40 MG TAB PO SCH (09:00)
[2020-02-22] MEDS ORDERED: MONTELUKAST 10 MG TAB PO SCH (09:00)
[2020-02-22] MEDS ORDERED: ASPIRIN 325 MG TAB PO SCH ×2 (09:00)
[2020-02-22 09:21] VITALS: BP 96/53; PULSE 65; RESP 16
--- NOTE | 2020-02-22 10:07 | P.CRDCN ---
History of Present Illness History of present illness: HISTORY OF PRESENTING ILLNESS This is a pleasant 39-year-old female past medical history significant for diabetes mellitus, seizure disorder, schizophrenia, bipolar, illicit drug u se and former nicotine dependence. We have been asked to see in consultation for chest pain. She states she has recently been started on latuda by her psychiatrist. Every time she takes it she feels a pain in her chest in the mid- sternal region that radiates through to her back. The pain is a stabbing pressure. There is no radiation down the arm or into the neck/jaw. She has some mild shortness of breath at times, not related to the chest pain. She denies dizziness, palpitations, nausea or vomiting. She states in the past she had "fluid on her heart because of a mass on her ovary." She underwent an echocardiogram December 2019 revealing preserved LV systolic function with ejection fraction 55-60%. DIAGNOSTICS EKG reveals sinus mechanism with right bundle branch and left anterior fascicular block. Chest xray cannot exclude a small 5% right-sided pneumothorax laterally on the right lung. CT of the chest was obtained revealing no acute process or pneumothorax. There is a small 3 mm pulmonary nodule noted in the right upper lobe. Laboratory reviewed, WBC 14.3, hemoglobin 12.1, platelets 230, sodium 138, potassium 4.5, creatinine 0.73, magnesium 1.9, cardiac enzymes negative 1, LDL 77 and HDL 54. Current cardiac medications include aspirin 325 mg daily. REVIEW OF SYSTEMS At the time of my exam: CONSTITUTIONAL: Denies fever or chills. CARDIOVASCULAR: Denies chest pain, shortness of breath, orthopnea, PND or palpitations. RESPIRATORY: Denies cough. GASTROINTESTINAL: Denies abdominal pain, diarrhea, constipation, nausea or vomiting. MUSCULOSKELETAL: Denies myalgias. NEUROLOGIC: Denies numbness, tingling or weakness. ENDOCRINE: Denies fatigue, weight change, polydipsia or polyurina. GENITOURINARY: Denies burning, hematuria or urgency with micturation. HEMATOLOGIC: Denies history of anemia or bleeding. PHYSICAL EXAMINATION Blood pressure 96/53 heart rate 65 afebrile and maintaining oxygen saturation on room air. CONSTITUTIONAL: No apparent distress. HEENT: Head is normocephalic. Pupils are equal, round. Sclerae anicteric. Mucous membranes of the mouth are moist. No JVD. No carotid bruit. CHEST EXAMINATION: Lungs are clear to auscultation. No chest wall tenderness is noted on palpation or with deep breathing. HEART EXAMINATION: Regular rate and rhythm. S1, S2 heard. No murmurs, gallops or rub. ABDOMEN: Soft, nontender. Positive bowel sounds. EXTREMITIES: 2+ peripheral pulses, no lower extremity edema and no calf tenderness. NEUROLOGIC EXAMINATION: Patient is awake, alert and oriented x3. ASSESSMENT Chest pain, atypical for angina. Diabetes mellitus Schizophrenia Bipolar disorder History of illicit drug use Morbid obesity, BMI 41 PLAN Obtain second troponin to rule out an acute coronary event. Recommend proceeding with stress echocardiogram however the patient is quite anxious to get to her 3:00 psychiatry appointment. If her second troponin is no rmal we will set her up in the office to have a stress test with Dr. Piper next week. Thank you kindly for this consultation. Nurse Practitioner note has been reviewed, I agree with a documented findings and plan of care. Patient was seen and examined. Past Medical History Past Medical History: Asthma, Diabetes Mellitus, Seizure Disorder Additional Past Medical History / Comment(s): OVARIAN CYST, Schizophrenia, BIPOLAR, SCOLOSIS, chronic back pain, gout History of Any Multi-Drug Resistant Organisms: None Reported Past Surgical History: Cholecystectomy Additional Past Surgical History / Comment(s): LEFT OVARY, D&C Past Anesthesia/Blood Transfusion Reactions: No Reported Reaction Past Psychological History: Anxiety, Bipolar, Depression, Schizophrenia Smoking Status: Former smoker Past Alcohol Use History: None Reported Past Drug Use History: Cocaine - Past Family History Mother History Unknown: Yes Family Medical History: Cancer Additional Family Medical History / Comment(s): pt states is unaware of history Medications and Allergies Home Medications Medication Instructions Recorded Confirmed Type Fluticasone Nasal [place] [Flonase 1 spray EA NOSTRIL DAILY PRN 12/16/18 02/21/20 History Nasal [place]] Zonisamide [Zonegran] 300 mg PO BID 12/16/18 02/21/20 History Baclofen 10 mg PO BID PRN 12/16/19 02/21/20 History Budesonide [Pulmicort Flexhaler] 1 puff INHALATION RT-BID 12/16/19 02/21/20 History Cholecalciferol [Vitamin D3 (25 5,000 unit PO DAILY 12/16/19 02/21/20 History Mcg = 1000 Iu)] Docusate [Colace] 100 mg PO BID PRN 12/16/19 02/21/20 History Insulin Lispro [Admelog] 20 units SQ BID 12/16/19 02/21/20 History Montelukast [Singulair] 10 mg PO DAILY 12/16/19 02/21/20 History Omeprazole 20 mg PO DAILY 12/16/19 02/21/20 History allopurinoL [Zyloprim] 100 mg PO DAILY 12/16/19 02/21/20 History Aspirin 325 mg PO DAILY 02/11/20 02/21/20 History Cyanocobalamin [Vitamin B-12 1,000 mcg IM ONCE 02/11/20 02/21/20 History Injection] Nystatin 100,000Unit/gm Cream 1 applic TOPICAL BID 02/11/20 02/21/20 History [Mycostatin Cream] DULoxetine HCL [Cymbalta] 60 mg PO DAILY 30 Days capsule. 02/16/20 02/21/20 Rx Lurasidone [Latuda] 40 mg PO Q24H 30 Days tab 02/16/20 02/21/20 Rx Mag Hydrox/Al Hydrox/Simeth 30 ml PO Q4HR PRN ml 02/16/20 02/21/20 Rx [Maalox] Naltrexone HCl [Revia] 50 mg PO DAILY 30 Days tab 02/16/20 02/21/20 Rx hydrOXYzine pamoate [Vistaril] 25 mg PO QID 15 Days cap 02/16/20 02/21/20 Rx lamoTRIgine [LaMICtal] 200 mg PO BID 30 Days tab 02/16/20 02/21/20 Rx traZODone HCL [Desyrel] 100 mg PO HS 30 Days tab 02/16/20 02/21/20 Rx Acyclovir 400 PO TID 02/21/20 History Allergies Allergy/AdvReac Type Severity Reaction Status Date / Time cephalexin monohydrate Allergy Unknown Verified 02/21/20 12:17 [From Keflex] Iodinated Contrast Media Allergy Anaphylaxis Verified 02/21/20 12:17 [Iodinated Contrast Media - IV Dye] peanut Allergy Anaphylaxis Verified 02/21/20 12:17 Penicillins Allergy Anaphylaxis Verified 02/21/20 12:17 shellfish derived Allergy Anaphylaxis Verified 02/21/20 12:17 Physical Exam Vitals: Vital Signs Temp Pulse Pulse Resp BP BP Pulse Ox 02/22/20 02:58 98 F 55 L 18 103/68 92 L 02/21/20 21:00 97.4 F L 52 L 18 105/57 99 02/21/20 14:24 98.2 F 60 16 119/72 99 02/21/20 14:15 98.3 F 68 18 145/72 98 02/21/20 10:58 98.2 F 73 16 128/73 98 Intake and Output 02/21/20 02/22/20 02/22/20 22:59 06:59 14:59 Intake Total 968.5 93.906 Balance 968.5 93.906 Intake: Intake, IV Titration 68.5 93.906 Amount Heparin Sod,Pork in 0.45% 68.5 93.906 NaCl 25,000 unit In 0.45 % NaCl 1 250ml.bag @ 9. 035 UNITS/KG/HR 10 mls/hr IV .Q24H [facility] Rx#: [id number] Oral 900 0 Other: Voiding Method Toilet Toilet # Voids 3 2 Results 02/22/20 02:30 02/21/20 11:40 Cardiac Enzymes 02/21/20 02/21/20 Range/Units 11:40 11:40 AST 21 (14-36) U/L Troponin I <0.012 (0.000-0.034) ng/mL Coagulation 02/21/20 02/21/20 02/22/20 Range/Units 11:40 19:58 02:30 PT 9.3 (9.0-12.0) sec APTT 23.6 27.7 34.7 H (22.0-30.0) sec Lipids 02/22/20 Range/Units 02:30 Triglycerides 306 H (<150) mg/dL Cholesterol 192 (<200) mg/dL HDL Cholesterol 54 (40-60) mg/dL CBC 02/21/20 02/22/20 Range/Units 11:40 02:30 WBC 14.3 H (3.8-10.6) k/uL RBC 4.30 (3.80-5.40) m/uL Hgb 12.1 (11.4-16.0) gm/dL Hct 38.0 (34.0-46.0) % Plt Count 242 230 (150-450) k/uL Comprehensive Metabolic Panel 02/21/20 Range/Units 11:40 Sodium 138 (137-145) mmol/L Potassium 4.5 (3.5-5.1) mmol/L Chloride 106 (98-107) mmol/L Carbon Dioxide 23 (22-30) mmol/L BUN 26 H (7-17) mg/dL Creatinine 0.73 (0.52-1.04) mg/dL Glucose 106 H (74-99) mg/dL Calcium 9.0 (8.4-10.2) mg/dL AST 21 (14-36) U/L ALT 16 (4-34) U/L Alkaline Phosphatase 94 (38-126) U/L Total Protein 7.0 (6.3-8.2) g/dL Albumin 3.9 (3.5-5.0) g/dL Current Medications Generic Name Dose Route Start Last Admin Trade Name Freq PRN Reason Stop Dose Admin Al Hydroxide/Mg Hydroxide 30 ml 02/21/20 19:18 02/21/20 20:29 Maalox PO 30 ml Q4HR PRN Administration GI Upset Aminophylline 100 mg 02/21/20 20:32 Aminophylline IV 02/22/20 23:00 ONCE PRN Patient Response Aspirin 325 mg 02/22/20 09:00 Aspirin PO DAILY ZHANG Baclofen 10 mg 02/21/20 19:18 Lioresal PO BID PRN Muscle Pain Caffeine Citrate 60 mg 02/21/20 20:32 Cafcit Inj IV 02/22/20 23:00 ONCE PRN Patient Response Cholecalciferol 5,000 unit 02/22/20 09:00 Vitamin D3 (25 Mcg = 1000 Iu) PO DAILY ZHANG Docusate Sodium 100 mg 02/21/20 19:18 02/21/20 20:29 Colace PO 100 mg BID PRN Administration Constipation Duloxetine HCl 60 mg 02/22/20 09:00 Cymbalta PO DAILY ZHANG Fluticasone Propionate 1 puff 02/21/20 20:00 02/21/20 21:50 Flovent 110 Mcg Inhaler INHALATION 1 puff RT-BID ZHANG Administration Fluticasone Propionate 1 spray 02/21/20 19:18 Flonase Nasal [place] EA NOSTRIL DAILY PRN Congestion Heparin Sodium (Porcine) 0 unit 02/21/20 13:42 02/22/20 03:52 Heparin IV 4,000 unit Q6HR PRN Administration Low PTT Protocol Hydroxyzine Pamoate 25 mg 02/21/20 22:00 02/21/20 20:29 Vistaril PO 25 mg QID ZHANG Administration Lamotrigine 200 mg 02/21/20 21:00 02/21/20 20:29 Lamictal PO 200 mg BID ZHANG Administration Lurasidone HCl 40 mg 02/22/20 09:00 Latuda PO Q24HR ZHANG Montelukast Sodium 10 mg 02/22/20 09:00 Singulair PO DAILY [facility] Naltrexone HCl 50 mg 02/22/20 09:00 Revia PO DAILY [facility] Nitroglycerin 0.4 mg 02/21/20 13:42 Nitrostat SUBLINGUAL Q5M PRN Chest Pain Nystatin 1 applic 02/21/20 21:00 02/21/20 20:29 Mycostatin Cream TOPICAL 1 applic BID [facility] Administration Pantoprazole Sodium 40 mg 02/22/20 07:30 02/22/20 06:39 Protonix PO 40 mg [id number] [facility] Administration Trazodone HCl 100 mg 02/21/20 21:00 02/21/20 20:30 Desyrel PO 100 mg HS [facility] Administration Zonisamide 300 mg 02/21/20 21:00 02/21/20 20:29 Zonegran PO 300 mg BID ZHANG Administration Intake and Output 02/21/20 02/22/20 02/22/20 22:59 06:59 14:59 Intake Total 968.5 93.906 Balance 968.5 93.906 Intake: Intake, IV Titration 68.5 93.906 Amount Heparin Sod,Pork in 0.45% 68.5 93.906 NaCl 25,000 unit In 0.45 % NaCl 1 250ml.bag @ 9. 035 UNITS/KG/HR 10 mls/hr IV .Q24H [facility] Rx#: [id number] Oral 900 0 Other: Voiding Method Toilet Toilet # Voids 3 2 02/22/20 02:30 02/21/20 11:40
[2020-02-23] MEDS ORDERED: ASPIRIN 81 MG PO SCH (09:00)
--- NOTE | 2020-02-23 18:01 | P.DS ---
Providers Date of admission: 02/21/20 14:02 Expected date of discharge: 02/22/20 Attending physician: Maximiliano Rodriguez Consults: 02/21/20 13:42 Consult Physician Urgent Consulting Provider: Jayla Stack Consult Reason/Comments: chest pain Do you want consulting provider notified?: Yes Primary care physician: [facility] Course: Final diagnoses Chest pain, atypical for angina, acute coronary event ruled out as per cardiology Diabetes mellitus Schizophrenia Bipolar disorder History of illicit drug use Morbid obesity, BMI 41 Hospital course: This a 39-year-old female admitted with chest pain which patient attributed to recently started on latuda per her psychiatrist. Evaluated by cardiology. Underwent Xochitl stress test, reported as negative. Patient to remain on Latuda and has an appointment this afternoon with her psychiatrist further recommendations. Cleared by cardiology for discharge. Patient is being discharged home in stable condition with guarded prognosis. The impression and plan of care has been dictated as directed. Dr.: I performed a history and examination of this patient, discussed the same with the dictator. I agree with the dictator's note ,documented as a scribe. Any additional findings or plans will be noted. Patient Condition at Discharge: Stable Plan - Discharge Summary Discharge Rx Participant: No New Discharge Prescriptions: New Aspirin 81 mg PO DAILY chew Continue Fluticasone Nasal [place] [Flonase Nasal [place]] 1 spray EA NOSTRIL DAILY PRN PRN Reason: Congestion Zonisamide [Zonegran] 300 mg PO BID Docusate [Colace] 100 mg PO BID PRN PRN Reason: Constipation allopurinoL [Zyloprim] 100 mg PO DAILY Insulin Lispro [Admelog] 20 units SQ BID Baclofen 10 mg PO BID PRN PRN Reason: Muscle Pain Montelukast [Singulair] 10 mg PO DAILY Cholecalciferol [Vitamin D3 (25 Mcg = 1000 Iu)] 5,000 unit PO DAILY Budesonide [Pulmicort Flexhaler] 1 puff INHALATION RT-BID Omeprazole 20 mg PO DAILY Cyanocobalamin [Vitamin B-12 Injection] 1,000 mcg IM ONCE Nystatin 100,000Unit/gm Cream [Mycostatin Cream] 1 applic TOPICAL BID DULoxetine HCL [Cymbalta] 60 mg PO DAILY 30 Days capsule. lamoTRIgine [LaMICtal] 200 mg PO BID 30 Days tab Lurasidone [Latuda] 40 mg PO Q24H 30 Days tab Mag Hydrox/Al Hydrox/Simeth [Maalox] 30 ml PO Q4HR PRN ml PRN Reason: Gi Upset Naltrexone HCl [Revia] 50 mg PO DAILY 30 Days tab traZODone HCL [Desyrel] 100 mg PO HS 30 Days tab hydrOXYzine pamoate [Vistaril] 25 mg PO QID 15 Days cap Acyclovir 400 PO TID Discontinued Aspirin 325 mg PO DAILY Discharge Medication List Fluticasone Nasal [place] [Flonase Nasal [place]] 1 spray EA NOSTRIL DAILY PRN 12/16/18 [History] Zonisamide [Zonegran] 300 mg PO BID 12/16/18 [History] Baclofen 10 mg PO BID PRN 12/16/19 [History] Budesonide [Pulmicort Flexhaler] 1 puff INHALATION RT-BID 12/16/19 [History] Cholecalciferol [Vitamin D3 (25 Mcg = 1000 Iu)] 5,000 unit PO DAILY 12/16/19 [H istory] Docusate [Colace] 100 mg PO BID PRN 12/16/19 [History] Insulin Lispro [Admelog] 20 units SQ BID 12/16/19 [History] Montelukast [Singulair] 10 mg PO DAILY 12/16/19 [History] Omeprazole 20 mg PO DAILY 12/16/19 [History] allopurinoL [Zyloprim] 100 mg PO DAILY 12/16/19 [History] Cyanocobalamin [Vitamin B-12 Injection] 1,000 mcg IM ONCE 02/11/20 [History] Nystatin 100,000Unit/gm Cream [Mycostatin Cream] 1 applic TOPICAL BID 02/11/20 [History] DULoxetine HCL [Cymbalta] 60 mg PO DAILY 30 Days capsule. 02/16/20 [Rx] Lurasidone [Latuda] 40 mg PO Q24H 30 Days tab 02/16/20 [Rx] Mag Hydrox/Al Hydrox/Simeth [Maalox] 30 ml PO Q4HR PRN ml 02/16/20 [Rx] Naltrexone HCl [Revia] 50 mg PO DAILY 30 Days tab 02/16/20 [Rx] hydrOXYzine pamoate [Vistaril] 25 mg PO QID 15 Days cap 02/16/20 [Rx] lamoTRIgine [LaMICtal] 200 mg PO BID 30 Days tab 02/16/20 [Rx] traZODone HCL [Desyrel] 100 mg PO HS 30 Days tab 02/16/20 [Rx] Acyclovir 400 PO TID 02/21/20 [History] Aspirin 81 mg PO DAILY chew 02/22/20 [Rx] Follow up Appointment(s)/Referral(s): Sanjay Piper MD [STAFF PHYSICIAN] - 2 Weeks (The office will call with a follow up appointment.) Joyce Rao MD [REFERRING] - [facility] Provider[facility] - 02/29/20 4:00 pm () Patient Instructions/Handouts: Chest Pain (GEN) Discharge Disposition: HOME SELF-CARE
== END 2020-02-22 14:45 | disposition home or self-care (01) ==
LOC: EC 10:55 → 3NCARDOBS 14:02
PROVIDERS: ADMIT Family Medicine; ATTEND Family Medicine
DX: R07.89 Other chest pain (principal); D72.829 Elevated white blood cell count, unspecified; E11.9 Type 2 diabetes mellitus without complications; F20.9 Schizophrenia, unspecified; F31.9 Bipolar disorder, unspecified; E66.01 Morbid (severe) obesity due to excess calories; J45.909 Unspecified asthma, uncomplicated; G40.909 Epilepsy, unspecified, not intractable, without status epilepticus; M41.9 Scoliosis, unspecified; G89.29 Other chronic pain; M54.9 Dorsalgia, unspecified; M10.9 Gout, unspecified; F41.9 Anxiety disorder, unspecified; I45.2 Bifascicular block; R91.1 Solitary pulmonary nodule; Z68.41 Body mass index [BMI] 40.0-44.9, adult; Z03.818 Encounter for observation for suspected exposure to other biological agents ruled out; Z79.899 Other long term (current) drug therapy; Z79.51 Long term (current) use of inhaled steroids; Z79.4 Long term (current) use of insulin; Z79.82 Long term (current) use of aspirin; Z88.1 Allergy status to other antibiotic agents; Z91.048 Other nonmedicinal substance allergy status; Z91.010 Allergy to peanuts; Z88.0 Allergy status to penicillin; Z91.013 Allergy to seafood; Z87.42 Personal history of other diseases of the female genital tract; Z90.49 Acquired absence of other specified parts of digestive tract; Z98.890 Other specified postprocedural states; Z90.721 Acquired absence of ovaries, unilateral; Z87.891 Personal history of nicotine dependence; Z80.9 Family history of malignant neoplasm, unspecified
CPT/HCPCS: 93005 ×2; 96366 ×2; 96376 ×3; 96361; 96365; 99285; 36415; 94640 ×2; 83880; 80061; 80053; 83690; 83735; 84484 ×2; 85025; 85049; 85610; 85730 ×2; 71046; 71250; G0378 ×2; U0003; J1644 ×3

== ENCOUNTER 2020-03-04 16:12 | Inpatient (IN) | payer MEDICAID, OTHER ==
[2020-03-04 17:09] LABS: Basophils # (A) 0.1 k/uL (0-0.2); Basophils % (A) 0 %; Eosinophils # (A) 0.8 k/uL (0-0.7); Eosinophils % (A) 5 %; HCT 39.7 % (34.0-46.0); HGB 12.3 gm/dL (11.4-16.0); Lymphocytes % (A) 21 %; MCH 26.5 pg (25.0-35.0); MCV 85.6 fL (80.0-100.0); Mean Platelet Volume 6.9; Monocytes # (A) 0.5 k/uL (0-1.0); Monocytes % (A) 4 %; Neutrophils # (A) 10.1 k/uL (1.3-7.7); Neutrophils % (A) 69 %; Platelet Count 260 k/uL (150-450); RBC 4.64 m/uL (3.80-5.40); RDW 13.9 % (11.5-15.5); WBC 14.6 k/uL (3.8-10.6)
[2020-03-04 17:19] LABS: ALT 22 U/L (4-34); AST 26 U/L (14-36); Acetaminophen <10.0 ug/mL; African American GFR (CKD) >90 (>60 ml/min/1.73 sqM); Alkaline Phosphatase 113 U/L (38-126); Anion Gap 8 mmol/L; Blood Urea Nitrogen 9 mg/dL (7-17); Calcium 9.2 mg/dL (8.4-10.2); Carbon Dioxide 30 mmol/L (22-30); Chloride 102 mmol/L (98-107); Glucose 113 mg/dL (74-99); Non-African American GFR(CKD) >90 (>60 ml/min/1.73 sqM); Salicylate <1.0 mg/dL; Sodium 140 mmol/L (137-145); Total Bilirubin 0.2 mg/dL (0.2-1.3); Total Protein 7.3 g/dL (6.3-8.2)
[2020-03-04 17:33] LABS: Amphetamine Screen,Urine Not Detected (NotDetected); Barbiturate Screen,Urine Not Detected (NotDetected); Benzodiazepines Screen,Urine Not Detected (NotDetected); Cocaine Screen,Urine Not Detected (NotDetected); Methadone Screen, Urine Not Detected (NotDetected); Opiate Screen,Urine Not Detected (NotDetected); Oxycodone Screen, Urine Not Detected (NotDetected); Phencyclidine Screen,Urine Not Detected (NotDetected); Tricyclic Antidepressant,Urine Not Detected (NotDetected); Urn Cannabinoid Scrn Not Detected (NotDetected)
--- NOTE | 2020-03-04 17:44 | ED ---
Psych HPI - General Chief Complaint: Psychiatric Symptoms Stated Complaint: mental health Time Seen by Provider: 03/04/20 16:20 Source: patient, RN notes reviewed Mode of arrival: ambulatory Limitations: no limitations - History of Present Illness Initial Comments: 39-year-old female presents emergency Department with chief complaint of needing psych evaluation. Patient states she is depressed she misses her kids. Patient states that she was trying to not use but she did use crack cocaine and heroin. Patient states that she also took 15 Excedrin. Patient denies any current symptoms. Patient states that she just wants to be evaluated by psych it shows she is depressed. Patient offers no other complaints as a physical complaints. - Related Data Home Medications Medication Instructions Recorded Confirmed Fluticasone Nasal [place] [Flonase 1 spray EA NOSTRIL DAILY PRN 12/16/18 03/04/20 Nasal [place]] Zonisamide [Zonegran] 300 mg PO BID 12/16/18 03/04/20 Baclofen 10 mg PO BID PRN 12/16/19 03/04/20 Budesonide [Pulmicort Flexhaler] 1 puff INHALATION RT-BID 12/16/19 03/04/20 Cholecalciferol [Vitamin D3 (25 5,000 unit PO DAILY 12/16/19 03/04/20 Mcg = 1000 Iu)] Docusate [Colace] 100 mg PO BID PRN 12/16/19 03/04/20 Insulin Lispro [Admelog] 20 units SQ BID 12/16/19 03/04/20 Montelukast [Singulair] 10 mg PO DAILY 12/16/19 03/04/20 Omeprazole 20 mg PO DAILY 12/16/19 03/04/20 allopurinoL [Zyloprim] 100 mg PO DAILY 12/16/19 03/04/20 Cyanocobalamin [Vitamin B-12 1,000 mcg IM ONCE 02/11/20 03/04/20 Injection] Nystatin 100,000Unit/gm Cream 1 applic TOPICAL BID 02/11/20 03/04/20 [Mycostatin Cream] Acyclovir 400 mg PO TID PRN 02/21/20 03/04/20 DULoxetine HCL [Cymbalta] 60 mg PO DAILY 03/04/20 03/04/20 Lurasidone [Latuda] 40 mg PO DAILY 03/04/20 03/04/20 Naltrexone HCl [Revia] 50 mg PO DAILY 03/04/20 03/04/20 hydrOXYzine pamoate [Vistaril] 25 mg PO QID 03/04/20 03/04/20 lamoTRIgine [LaMICtal] 200 mg PO BID 03/04/20 03/04/20 traZODone HCL [Desyrel] 100 mg PO HS 03/04/20 03/04/20 Previous Rx's Medication Instructions Recorded Mag Hydrox/Al Hydrox/Simeth 30 ml PO Q4HR PRN ml 02/16/20 [Maalox] Aspirin 81 mg PO DAILY chew 02/22/20 Allergies Allergy/AdvReac Type Severity Reaction Status Date / Time Iodinated Contrast Media Allergy Anaphylaxis Verified 03/04/20 18:43 [Iodinated Contrast Media - IV Dye] peanut Allergy Anaphylaxis Verified 03/04/20 18:43 Penicillins Allergy Anaphylaxis Verified 03/04/20 18:43 shellfish derived Allergy Anaphylaxis Verified 03/04/20 18:43 cephalexin monohydrate AdvReac Nausea & Verified 03/04/20 18:43 [From Keflex] Vomiting & Diarrhea trazodone AdvReac bp Verified 03/04/20 18:43 issues/dissiness--patient takes at home Review of Systems ROS Statement: Those systems with pertinent positive or pertinent negative responses have been documented in the HPI. ROS Other: All systems not noted in ROS Statement are negative. Past Medical History Past Medical History: Asthma, Diabetes Mellitus, Seizure Disorder Additional Past Medical History / Comment(s): OVARIAN CYST, Schizophrenia, BIPOLAR, SCOLOSIS, chronic back pain, gout History of Any Multi-Drug Resistant Organisms: None Reported Past Surgical History: Cholecystectomy Additional Past Surgical History / Comment(s): LEFT OVARY, D&C Past Anesthesia/Blood Transfusion Reactions: No Reported Reaction Past Psychological History: Anxiety, Bipolar, Depression, Schizophrenia Smoking Status: Former smoker Past Alcohol Use History: None Reported Past Drug Use History: Cocaine - Past Family History Mother History Unknown: Yes Family Medical History: Cancer Additional Family Medical History / Comment(s): pt states is unaware of history General Exam Limitations: no limitations General appearance: alert, in no apparent distress Head exam: Present: atraumatic, normocephalic, normal inspection Eye exam: Present: normal appearance, PERRL, EOMI. Absent: scleral icterus, conjunctival injection, periorbital swelling ENT exam: Present: normal exam, normal oropharynx, mucous membranes moist Neck exam: Present: normal inspection, full ROM. Absent: tenderness, meningismus, lymphadenopathy Respiratory exam: Present: normal lung sounds bilaterally. Absent: respiratory distress, wheezes, rales, rhonchi, stridor Cardiovascular Exam: Present: regular rate, normal rhythm, normal heart sounds. Absent: systolic murmur, diastolic murmur, rubs, gallop, clicks GI/Abdominal exam: Present: soft, normal bowel sounds. Absent: distended, tenderness, guarding, rebound, rigid Neurological exam: Present: alert, oriented X3, CN II-XII intact Psychiatric exam: Present: depressed Skin exam: Present: warm, dry, intact, normal color. Absent: rash Course Vital Signs 03/04/20 16:17 Temperature 99.1 F Pulse Rate 72 Respiratory 16 Rate Blood Pressure 122/71 O2 Sat by Pulse 99 Oximetry - Reevaluation(s) Reevaluation #1: 03/04/20 17:43 Patient medically cleared, poison control was contacted. Medical Decision Making - Lab Data Result diagrams: 03/04/20 17:00 03/04/20 17:00 Lab Results 03/04/20 03/04/20 03/04/20 Range/Units 17:00 17:00 17:00 WBC 14.6 H (3.8-10.6) k/uL RBC 4.64 (3.80-5.40) m/uL Hgb 12.3 (11.4-16.0) gm/dL Hct 39.7 (34.0-46.0) % MCV 85.6 (80.0-100.0) fL MCH 26.5 (25.0-35.0) pg MCHC 31.0 (31.0-37.0) g/dL RDW 13.9 (11.5-15.5) % Plt Count 260 (150-450) k/uL Neutrophils % 69 % Lymphocytes % 21 % Monocytes % 4 % Eosinophils % 5 % Basophils % 0 % Neutrophils # 10.1 H (1.3-7.7) k/uL Lymphocytes # 3.0 (1.0-4.8) k/uL Monocytes # 0.5 (0-1.0) k/uL Eosinophils # 0.8 H (0-0.7) k/uL Basophils # 0.1 (0-0.2) k/uL Sodium 140 (137-145) mmol/L Potassium 4.0 (3.5-5.1) mmol/L Chloride 102 (98-107) mmol/L Carbon Dioxide 30 (22-30) mmol/L Anion Gap 8 mmol/L BUN 9 (7-17) mg/dL Creatinine 0.75 (0.52-1.04) mg/dL Est GFR (CKD-EPI)AfAm >90 (>60 ml/min/1.73 sqM) Est GFR (CKD-EPI)NonAf >90 (>60 ml/min/1.73 sqM) Glucose 113 H (74-99) mg/dL Calcium 9.2 (8.4-10.2) mg/dL Total Bilirubin 0.2 (0.2-1.3) mg/dL AST 26 (14-36) U/L ALT 22 (4-34) U/L Alkaline Phosphatase 113 (38-126) U/L Total Protein 7.3 (6.3-8.2) g/dL Albumin 4.0 (3.5-5.0) g/dL Salicylates <1.0 mg/dL Urine Opiates Screen Not Detected (NotDetected) Ur Oxycodone Screen Not Detected (NotDetected) Urine Methadone Screen Not Detected (NotDetected) Ur Propoxyphene Screen Not Detected (NotDetected) Acetaminophen <10.0 ug/mL Ur Barbiturates Screen Not Detected (NotDetected) U Tricyclic Antidepress Not Detected (NotDetected) Ur Phencyclidine Scrn Not Detected (NotDetected) Ur Amphetamines Screen Not Detected (NotDetected) U Methamphetamines Scrn Not Detected (NotDetected) U Benzodiazepines Scrn Not Detected (NotDetected) Urine Cocaine Screen Not Detected (NotDetected) U Marijuana (THC) Screen Not Detected (NotDetected) Disposition Clinical Impression: Suicidal ideation, Depression Disposition: TRANSFER TO PSYCH HOSP/UNIT
[2020-03-04] MEDS ORDERED: DOCUSATE 100 MG CAP PO PRN (19:09)
[2020-03-04] MEDS ORDERED: FLUTICASONE 50MCG/SPRAY NASAL 16GM EA NOSTRIL PRN (19:09)
[2020-03-04] MEDS ORDERED: BACLOFEN 10 MG TAB PO PRN (19:09)
[2020-03-04] MEDS ORDERED: ACYCLOVIR 200 MG CAP PO PRN (19:09)
[2020-03-04] MEDS ORDERED: MAG HYDROX/AL HYDROX/SIMETH 30 ML CUP PO PRN (19:09)
[2020-03-04] MEDS ORDERED: ACETAMINOPHEN TAB 325 MG TAB PO PRN (19:11)
[2020-03-04] MEDS ORDERED: ZIPRASIDONE 20 MG VIAL IM PRN (19:11)
[2020-03-04] MEDS ORDERED: LORazepam 2 MG/ML INJ IM PRN (19:13)
[2020-03-04] MEDS ORDERED: traZODone HCL 100 MG TAB PO SCH (21:00)
[2020-03-04] MEDS: NYSTATIN 100,000UNIT/GM CREAM 30 GM TUBE TOPICAL SCH (22:07)
[2020-03-04] MEDS: FLUTICASONE 110 MCG INHALER (MHU) INHALATION SCH (22:07)
[2020-03-04] MEDS: ZONISAMIDE 100 MG CAP PO SCH (22:08)
[2020-03-04] MEDS: hydrOXYzine pamoate 25 MG CAP PO SCH (22:09)
[2020-03-04] MEDS: lamoTRIgine 100 MG TAB PO SCH (22:09)
--- NOTE | 2020-03-04 22:58 | P.CONS ---
History of Present Illness - Reason for Consult Consult date: 03/04/20 - History of Present Illness Patient is a 39-year-old female with a PMH of anxiety, depression, polysubstance abuse, seizure disorder, type II DM, and COPD who presented to the ED due to depression and suicidal ideation. The patient reports that she had recently completed her 3 day stay at a motel and did not have a place to stay and felt down about her life and thereby decided to come to the emergency room. She reported no active complaints. Reports compliance with all her medications at home. Review of Systems Pertinent positives and negatives as discussed in HPI, a complete review of systems was performed and all other systems are negative. Past Medical History Past Medical History: Asthma, Diabetes Mellitus, Seizure Disorder Additional Past Medical History / Comment(s): OVARIAN CYST, Schizophrenia, BIPOLAR, SCOLOSIS, chronic back pain, gout History of Any Multi-Drug Resistant Organisms: None Reported Past Surgical History: Cholecystectomy Additional Past Surgical History / Comment(s): LEFT OVARY, D&C Past Anesthesia/Blood Transfusion Reactions: No Reported Reaction Past Psychological History: Anxiety, Bipolar, Depression, Schizophrenia Smoking Status: Former smoker Past Alcohol Use History: None Reported Past Drug Use History: Cocaine - Past Family History Mother History Unknown: Yes Family Medical History: Cancer Additional Family Medical History / Comment(s): pt states is unaware of history Medications and Allergies Home Medications Medication Instructions Recorded Confirmed Type Fluticasone Nasal [place] [Flonase 1 spray EA NOSTRIL DAILY PRN 12/16/18 03/04/20 History Nasal [place]] Zonisamide [Zonegran] 300 mg PO BID 12/16/18 03/04/20 History Baclofen 10 mg PO BID PRN 12/16/19 03/04/20 History Budesonide [Pulmicort Flexhaler] 1 puff INHALATION RT-BID 12/16/19 03/04/20 History Cholecalciferol [Vitamin D3 (25 5,000 unit PO DAILY 12/16/19 03/04/20 History Mcg = 1000 Iu)] Docusate [Colace] 100 mg PO BID PRN 12/16/19 03/04/20 History Insulin Lispro [Admelog] 20 units SQ BID 12/16/19 03/04/20 History Montelukast [Singulair] 10 mg PO DAILY 12/16/19 03/04/20 History Omeprazole 20 mg PO DAILY 12/16/19 03/04/20 History allopurinoL [Zyloprim] 100 mg PO DAILY 12/16/19 03/04/20 History Cyanocobalamin [Vitamin B-12 1,000 mcg IM DAILY 02/11/20 03/04/20 History Injection] Nystatin 100,000Unit/gm Cream 1 applic TOPICAL BID 02/11/20 03/04/20 History [Mycostatin Cream] Mag Hydrox/Al Hydrox/Simeth 30 ml PO Q4HR PRN ml 02/16/20 03/04/20 Rx [Maalox] Acyclovir 400 mg PO TID PRN 02/21/20 03/04/20 History Aspirin 81 mg PO DAILY chew 02/22/20 03/04/20 Rx DULoxetine HCL [Cymbalta] 60 mg PO DAILY 03/04/20 03/04/20 History Lurasidone [Latuda] 40 mg PO DAILY 03/04/20 03/04/20 History Naltrexone HCl [Revia] 50 mg PO DAILY 03/04/20 03/04/20 History hydrOXYzine pamoate [Vistaril] 25 mg PO QID 03/04/20 03/04/20 History lamoTRIgine [LaMICtal] 200 mg PO BID 03/04/20 03/04/20 History traZODone HCL [Desyrel] 100 mg PO HS 03/04/20 03/04/20 History Allergies Allergy/AdvReac Type Severity Reaction Status Date / Time Iodinated Contrast Media Allergy Anaphylaxis Verified 03/04/20 18:43 [Iodinated Contrast Media - IV Dye] peanut Allergy Anaphylaxis Verified 03/04/20 18:43 Penicillins Allergy Anaphylaxis Verified 03/04/20 18:43 shellfish derived Allergy Anaphylaxis Verified 03/04/20 18:43 cephalexin monohydrate AdvReac Nausea & Verified 03/04/20 18:43 [From Keflex] Vomiting & Diarrhea trazodone AdvReac bp Verified 03/04/20 18:43 issues/dissiness--patient takes at home Physical Exam Vitals: Vital Signs Temp Pulse Resp BP Pulse Ox 03/04/20 19:18 97.6 F 62 18 122/63 99 03/04/20 16:17 99.1 F 72 16 122/71 99 Intake and Output 03/04/20 03/04/20 03/04/20 06:59 14:59 22:59 Intake Total 10 Balance 10 Intake: Amount of Fluid Infused ( 10 ml) Other: Weight 108.862 kg General: non toxic, no distress, appears at stated age, morbidly obese Derm: no unusual rashes/lesions no unusual ecchymoses, warm, dry Head: atraumatic, normocephalic, symmetric Eyes: EOMI, no lid lag, anicteric sclera, pupils equal round reactive to light ENT: Nose and ears atraumatic, no thrush, no pharyngeal erythema Neck: No thyromegaly, no cervical lymphadenopathy, trachea midline, supple Mouth: no lip lesion, mucus membranes moist Cardiovascular: S1S2 reg, no murmur, positive posterior tibial pulse bilateral, no edema, capillary refill less than 2 seconds Lungs: CTA bilateral, no rhonchi, no rales , no accessory muscle use Abdominal: soft, nontender to palpation, no guarding, no appreciable organomegaly, normal bowel sounds Ext: no gross muscle atrophy, muscle strength 5 out of 5 in all 4 extremities grossly, no contractures, Neuro: CN II-XI grossly intact, light touch intact all 4 extremities, finger to nose within normal limits, Psych: Alert, oriented, appropriate affect Results CBC & Chem 7: 03/04/20 17:00 03/04/20 17:00 Labs: Abnormal Lab Results - Last 24 Hours (Table) 03/04/20 03/04/20 Range/Units 17:00 17:00 WBC 14.6 H (3.8-10.6) k/uL Neutrophils # 10.1 H (1.3-7.7) k/uL Eosinophils # 0.8 H (0-0.7) k/uL Glucose 113 H (74-99) mg/dL Assessment and Plan Plan: Type II DM, diet controlled -Check A1c COPD -Continue with home inhalers with albuterol when necessary Seizure disorder -Continue with home Lamictal Depression and suicidal ideation -As per psychiatry Thank you for allowing us to participate in the care of this patient. We will follow peripherally. Do not hesitate to contact us with questions. Someone can be reached from the [facility] hospitalist group at all hours of the day at [phone].
[2020-03-05 07:55] LABS: Glucose,Whole Blood 105 mg/dL (75-99)
[2020-03-05] MEDS: DULoxetine HCL 60 MG CAPSULE.DR PO SCH (08:20)
[2020-03-05] MEDS: CHOLECALCIFEROL 1,000 UNIT TAB PO SCH (08:20)
[2020-03-05] MEDS: MONTELUKAST 10 MG TAB PO SCH (08:20)
[2020-03-05] MEDS: ASPIRIN 81 MG PO SCH (08:20)
[2020-03-05] MEDS: ZONISAMIDE 100 MG CAP PO SCH ×2 (08:21→20:06)
[2020-03-05] MEDS: lamoTRIgine 100 MG TAB PO SCH (08:21)
[2020-03-05] MEDS: hydrOXYzine pamoate 25 MG CAP PO SCH (08:21)
[2020-03-05] MEDS: PANTOPRAZOLE 40 MG TABLET PO SCH (08:21)
[2020-03-05] MEDS: allopurinoL 100 MG TAB PO SCH (08:22)
[2020-03-05] MEDS: FLUTICASONE 110 MCG INHALER (MHU) INHALATION SCH ×2 (08:23→20:02)
[2020-03-05] MEDS: NYSTATIN 100,000UNIT/GM CREAM 30 GM TUBE TOPICAL SCH ×2 (08:23→20:20)
[2020-03-05] MEDS ORDERED: LURASIDONE 40 MG TAB PO SCH (09:00)
[2020-03-05] MEDS ORDERED: NALTREXONE HCL 50 MG TAB PO SCH (09:00)
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
[2020-03-05] MEDS: LORazepam 1 MG TAB PO PRN (11:48)
[2020-03-05 12:46] LABS: Glucose,Whole Blood 100 mg/dL (75-99)
[2020-03-05] MEDS: INSULIN ASPART (NovoLOG) 100 UNIT/ML VIAL SQ SCH ×3 (12:50→20:20)
[2020-03-05 17:32] LABS: Glucose,Whole Blood 97 mg/dL (75-99)
[2020-03-05 17:52] LABS: Hemoglobin A1C 5.7 % (4.0-6.0)
[2020-03-05 20:01] LABS: Glucose,Whole Blood 124 mg/dL (75-99)
[2020-03-05] MEDS: lamoTRIgine 25 MG TAB PO SCH (20:05)
[2020-03-06 07:48] LABS: Glucose,Whole Blood 103 mg/dL (75-99)
[2020-03-06 08:18] LABS: Basophils # (A) 0.1 k/uL (0-0.2); Basophils % (A) 0 %; Eosinophils # (A) 0.8 k/uL (0-0.7); Eosinophils % (A) 6 %; HCT 39.8 % (34.0-46.0); HGB 12.2 gm/dL (11.4-16.0); Hypochromasia Slight; Lymphocytes # (A) 2.7 k/uL (1.0-4.8); Lymphocytes % (A) 20 %; MCH 26.8 pg (25.0-35.0); MCHC 30.7 g/dL (31.0-37.0); MCV 87.1 fL (80.0-100.0); Mean Platelet Volume 7.1; Monocytes # (A) 0.7 k/uL (0-1.0); Monocytes % (A) 5 %; Neutrophils # (A) 9.3 k/uL (1.3-7.7); Neutrophils % (A) 68 %; Platelet Count 245 k/uL (150-450); RBC 4.56 m/uL (3.80-5.40); RDW 13.9 % (11.5-15.5); WBC 13.7 k/uL (3.8-10.6)
[2020-03-06] MEDS: INSULIN ASPART (NovoLOG) 100 UNIT/ML VIAL SQ SCH ×4 (08:24→21:01)
[2020-03-06] MEDS: PANTOPRAZOLE 40 MG TABLET PO SCH (08:25)
[2020-03-06] MEDS: ASPIRIN 81 MG PO SCH (08:25)
[2020-03-06] MEDS: allopurinoL 100 MG TAB PO SCH (08:25)
[2020-03-06] MEDS: lamoTRIgine 25 MG TAB PO SCH ×2 (08:26→20:58)
[2020-03-06] MEDS: MONTELUKAST 10 MG TAB PO SCH (08:26)
[2020-03-06] MEDS: NYSTATIN 100,000UNIT/GM CREAM 30 GM TUBE TOPICAL SCH ×2 (08:26→21:01)
[2020-03-06] MEDS: CHOLECALCIFEROL 1,000 UNIT TAB PO SCH (08:26)
[2020-03-06] MEDS: DULoxetine HCL 60 MG CAPSULE.DR PO SCH (08:26)
[2020-03-06] MEDS: FLUTICASONE 110 MCG INHALER (MHU) INHALATION SCH ×2 (08:27→21:01)
[2020-03-06] MEDS: ZONISAMIDE 100 MG CAP PO SCH ×2 (08:27→20:57)
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
[2020-03-06 12:50] LABS: Glucose,Whole Blood 76 mg/dL (75-99)
[2020-03-06 17:39] LABS: Glucose,Whole Blood 100 mg/dL (75-99)
[2020-03-06 20:25] LABS: Glucose,Whole Blood 114 mg/dL (75-99)
[2020-03-07 07:37] LABS: Glucose,Whole Blood 110 mg/dL (75-99)
[2020-03-07] MEDS: allopurinoL 100 MG TAB PO SCH (07:52)
[2020-03-07] MEDS: INSULIN ASPART (NovoLOG) 100 UNIT/ML VIAL SQ SCH ×4 (07:52→20:29)
[2020-03-07] MEDS: PANTOPRAZOLE 40 MG TABLET PO SCH (07:52)
[2020-03-07] MEDS: FLUTICASONE 110 MCG INHALER (MHU) INHALATION SCH ×2 (07:52→20:53)
[2020-03-07] MEDS: NYSTATIN 100,000UNIT/GM CREAM 30 GM TUBE TOPICAL SCH ×2 (07:53→20:53)
[2020-03-07] MEDS: lamoTRIgine 25 MG TAB PO SCH (07:53)
[2020-03-07] MEDS: CHOLECALCIFEROL 1,000 UNIT TAB PO SCH (07:53)
[2020-03-07] MEDS: MONTELUKAST 10 MG TAB PO SCH (07:53)
[2020-03-07] MEDS: ASPIRIN 81 MG PO SCH (07:53)
[2020-03-07] MEDS: DULoxetine HCL 60 MG CAPSULE.DR PO SCH (07:53)
[2020-03-07] MEDS: ZONISAMIDE 100 MG CAP PO SCH ×2 (07:53→20:53)
[2020-03-07] MEDS: hydrOXYzine pamoate 25 MG CAP PO PRN ×2 (07:54→20:54)
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
[2020-03-07] MEDS ORDERED: fluPHENAZine DECANOATE 25 MG/ML 5ML MDV IM ONE (10:00)
[2020-03-07 12:46] LABS: Glucose,Whole Blood 108 mg/dL (75-99)
[2020-03-07 15:35] VITALS: TEMP 98.3
[2020-03-07] MEDS: LORazepam 1 MG TAB PO PRN (15:38)
[2020-03-07 17:56] LABS: Glucose,Whole Blood 95 mg/dL (75-99)
[2020-03-07 19:58] LABS: Glucose,Whole Blood 79 mg/dL (75-99)
[2020-03-07] MEDS ORDERED: lamoTRIgine 100 MG TAB PO SCH (21:00)
[2020-03-08 06:23] VITALS: BP 107/56; PULSE 63; RESP 14
[2020-03-08] MEDS: INSULIN ASPART (NovoLOG) 100 UNIT/ML VIAL SQ SCH ×2 (07:50→12:55)
[2020-03-08 07:54] LABS: Glucose,Whole Blood 118 mg/dL (75-99)
[2020-03-08] MEDS: PANTOPRAZOLE 40 MG TABLET PO SCH (07:54)
[2020-03-08] MEDS: FLUTICASONE 110 MCG INHALER (MHU) INHALATION SCH (07:55)
[2020-03-08] MEDS ORDERED: lamoTRIgine 100 MG TAB PO SCH (09:30)
[2020-03-08] MEDS: ASPIRIN 81 MG PO SCH (09:32)
[2020-03-08] MEDS: allopurinoL 100 MG TAB PO SCH (09:33)
[2020-03-08] MEDS: ZONISAMIDE 100 MG CAP PO SCH (09:33)
[2020-03-08] MEDS: CHOLECALCIFEROL 1,000 UNIT TAB PO SCH (09:33)
[2020-03-08] MEDS: DULoxetine HCL 60 MG CAPSULE.DR PO SCH (09:34)
[2020-03-08] MEDS: NYSTATIN 100,000UNIT/GM CREAM 30 GM TUBE TOPICAL SCH (09:34)
[2020-03-08] MEDS: MONTELUKAST 10 MG TAB PO SCH (09:34)
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
[2020-03-08 12:41] LABS: Glucose,Whole Blood 88 mg/dL (75-99)
== END 2020-03-08 13:44 | disposition home or self-care (01) | DRG 885 ==
LOC: EC 16:12 → 3MHU 18:43
PROVIDERS: ADMIT Psychiatry & Neurology Psychiatry; ATTEND Psychiatry & Neurology Psychiatry
DX: F25.1 Schizoaffective disorder, depressive type (principal); R45.851 Suicidal ideations; E11.9 Type 2 diabetes mellitus without complications; G40.909 Epilepsy, unspecified, not intractable, without status epilepticus; F11.10 Opioid abuse, uncomplicated; J44.9 Chronic obstructive pulmonary disease, unspecified; Z91.128 Patient's intentional underdosing of medication regimen for other reason; T50.906A Underdosing of unspecified drugs, medicaments and biological substances, initial encounter; F41.9 Anxiety disorder, unspecified; M41.9 Scoliosis, unspecified; G89.29 Other chronic pain; M54.9 Dorsalgia, unspecified; M10.9 Gout, unspecified; Z79.4 Long term (current) use of insulin; Z79.82 Long term (current) use of aspirin; Z79.51 Long term (current) use of inhaled steroids; Z79.899 Other long term (current) drug therapy; Z91.5 Personal history of self-harm; Z59.0 Homelessness; Z56.0 Unemployment, unspecified; Z87.891 Personal history of nicotine dependence; Z90.49 Acquired absence of other specified parts of digestive tract; Z87.19 Personal history of other diseases of the digestive system; Z87.42 Personal history of other diseases of the female genital tract; Z98.890 Other specified postprocedural states; Y63.6 Underdosing and nonadministration of necessary drug, medicament or biological substance; Z88.8 Allergy status to other drugs, medicaments and biological substances; Z88.1 Allergy status to other antibiotic agents; Z91.041 Radiographic dye allergy status; Z91.010 Allergy to peanuts; Z88.0 Allergy status to penicillin; Z91.013 Allergy to seafood; Z80.9 Family history of malignant neoplasm, unspecified
CPT/HCPCS: 36415; 80053; 80061; 80306; 80329; 82075; 83036; 83520; 84443; 85025; 99285

== ENCOUNTER 2020-03-23 10:44 | Emergency (ER) | payer OTHER ==
[2020-03-23 10:52] VITALS: RESP 18
[2020-03-23] MEDS ORDERED: SODIUM CHLORIDE 0.9% 1,000 ML IV ONE (11:07)
[2020-03-23] MEDS ORDERED: KETOROLAC 15 MG/ML 1 ML VIAL IVP STA (11:08)
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
[2020-03-23 11:50] LABS: Basophils # (A) 0.1 k/uL (0-0.2); Basophils % (A) 1 %; Eosinophils # (A) 0.7 k/uL (0-0.7); Eosinophils % (A) 5 %; HCT 39.4 % (34.0-46.0); HGB 12.3 gm/dL (11.4-16.0); Lymphocytes # (A) 2.7 k/uL (1.0-4.8); Lymphocytes % (A) 17 %; MCH 26.2 pg (25.0-35.0); MCHC 31.3 g/dL (31.0-37.0); MCV 83.9 fL (80.0-100.0); Mean Platelet Volume 6.7; Monocytes # (A) 0.6 k/uL (0-1.0); Monocytes % (A) 4 %; Neutrophils # (A) 11.1 k/uL (1.3-7.7); Neutrophils % (A) 72 %; Platelet Count 225 k/uL (150-450); RDW 14.1 % (11.5-15.5); WBC 15.4 k/uL (3.8-10.6)
[2020-03-23 11:59] LABS: African American GFR (CKD) >90 (>60 ml/min/1.73 sqM); Alcohol <10 mg/dL; Anion Gap 7 mmol/L; Blood Urea Nitrogen 12 mg/dL (7-17); Calcium 8.6 mg/dL (8.4-10.2); Carbon Dioxide 21 mmol/L (22-30); Chloride 110 mmol/L (98-107); Glucose 88 mg/dL (74-99); Non-African American GFR(CKD) >90 (>60 ml/min/1.73 sqM); Sodium 138 mmol/L (137-145)
[2020-03-23 12:02] LABS: Potassium 5.1 mmol/L (3.5-5.1)
[2020-03-23 12:26] LABS: Appearance,Urine Cloudy (Clear); Bacteria,Urine Rare /hpf; Bilirubin,Urine Negative (Negative); Blood,Urine Negative (Negative); Color,Urine Yellow; Glucose,Urine (UA) Negative (Negative); Hyaline Casts,Urine 1 /lpf (0-2); Ketones,Urine Negative (Negative); Leukocyte Esterase,Urine Negative (Negative); Mucus,Urine Few /hpf; Nitrite,Urine Negative (Negative); PH, Urine 5.5 (5.0-8.0); Protein,Urine Negative (Negative); RBC,Urine 1 /hpf (0-5); Specific Gravity,Urine 1.019 (1.001-1.035); Squamous Epithelial Cell,Urine 10 /hpf (0-4); Urobilinogen,Urine <2.0 mg/dL (<2.0); WBC,Urine 2 /hpf (0-5)
[2020-03-23 12:27] LABS: Amphetamine Screen,Urine Not Detected (NotDetected); Barbiturate Screen,Urine Not Detected (NotDetected); Benzodiazepines Screen,Urine Not Detected (NotDetected); Cocaine Screen,Urine Not Detected (NotDetected); Methadone Screen, Urine Not Detected (NotDetected); Opiate Screen,Urine Not Detected (NotDetected); Oxycodone Screen, Urine Not Detected (NotDetected); Phencyclidine Screen,Urine Not Detected (NotDetected); Tricyclic Antidepressant,Urine Not Detected (NotDetected); Urn Cannabinoid Scrn Not Detected (NotDetected)
[2020-03-23 13:48] VITALS: PULSE 72
[2020-03-23 13:51] VITALS: BP 129/78; TEMP 98.1
== END 2020-03-23 13:30 | disposition home or self-care (01) ==
LOC: EC 10:44
DX: N39.0 Urinary tract infection, site not specified (principal); R14.0 Abdominal distension (gaseous); J45.909 Unspecified asthma, uncomplicated; E11.9 Type 2 diabetes mellitus without complications; M10.9 Gout, unspecified; F41.9 Anxiety disorder, unspecified; F31.9 Bipolar disorder, unspecified; G40.909 Epilepsy, unspecified, not intractable, without status epilepticus; G89.29 Other chronic pain; M54.5 Low back pain; Z79.4 Long term (current) use of insulin; Z79.51 Long term (current) use of inhaled steroids; Z79.899 Other long term (current) drug therapy; Z88.0 Allergy status to penicillin; Z88.1 Allergy status to other antibiotic agents; Z88.8 Allergy status to other drugs, medicaments and biological substances; Z91.013 Allergy to seafood; Z91.010 Allergy to peanuts; Z91.041 Radiographic dye allergy status; Z90.49 Acquired absence of other specified parts of digestive tract; Z87.891 Personal history of nicotine dependence
CPT/HCPCS: 36415; 80048; 85025; 81001; 81025; 87491; 87591; 80306; 99284; 96374; 96361; G0480; J1885; 80320

== ENCOUNTER 2020-04-11 23:57 | Emergency (ER) | payer OTHER ==
--- NOTE | 2020-04-12 00:59 | ED ---
Psych HPI - General Source: patient Mode of arrival: ambulatory - History of Present Illness MD Complaint: suicidal ideation Onset/Timin -: days(s) Associated Psychiatric Symptoms: depression, suicidal ideation History of same: Yes Quality: getting worse Improves With: none Worsens With: drug use Context: recent drug abuse Associated Symptoms: denies other symptoms <Silvestre Reyes - Last Filed: 04/12/20 00:59> <Stefano Gore - Last Filed: 04/13/20 08:06> - General Chief Complaint: Psychiatric Symptoms Stated Complaint: Mental health Time Seen by Provider: 04/12/20 00:06 - History of Present Illness Initial Comments: 's patient is a 40-year-old woman who presents to have evaluation for depression and suicidal ideation. The patient states that stressed by her living situation and so today she was more depressed which let her to relapse into crack cocaine use and also to take an overdose of her psychiatric medications. She took the overdose 13 hours ago. She states that she did feel a little sleepy but now the symptoms have passed. She is asymptomatic other than the depression and suicidal ideation. (Silvestre Reyes) - Related Data Home Medications Medication Instructions Recorded Confirmed Fluticasone Nasal [place] [Flonase 1 spray EA NOSTRIL DAILY 12/16/18 04/12/20 Nasal [place]] Zonisamide [Zonegran] 300 mg PO BID 12/16/18 04/12/20 Baclofen 10 mg PO BID PRN 12/16/19 04/12/20 Budesonide [Pulmicort Flexhaler] 1 puff INHALATION RT-BID 12/16/19 04/12/20 Cholecalciferol [Vitamin D3 (25 5,000 unit PO DAILY 12/16/19 04/12/20 Mcg = 1000 Iu)] Insulin Lispro [Admelog] 20 units SQ BID 12/16/19 04/12/20 Montelukast [Singulair] 10 mg PO HS 12/16/19 04/12/20 Omeprazole 20 mg PO DAILY 12/16/19 04/12/20 allopurinoL [Zyloprim] 100 mg PO DAILY 12/16/19 04/12/20 Cyanocobalamin [Vitamin B-12 1,000 mcg IM DAILY 02/11/20 04/12/20 Injection] ARIPiprazole [Abilify] 10 mg PO DAILY 04/12/20 04/12/20 Aspirin EC [Ecotrin Low Dose] 81 mg PO DAILY 04/12/20 04/12/20 Bismuth Subsalicylate 524 mg PO Q8H PRN 04/12/20 04/12/20 [Pepto-Bismol] Naltrexone HCl [Revia] 50 mg PO DAILY 04/12/20 04/12/20 hydrOXYzine pamoate [Vistaril] 25 mg PO Q6HR 04/12/20 04/12/20 lamoTRIgine [LaMICtal] See Taper PO DAILY 04/12/20 04/12/20 traZODone HCL 50 mg PO HS 04/12/20 04/12/20 Previous Rx's Medication Instructions Recorded Acetaminophen Tab [Tylenol] 650 mg PO Q6HR PRN 30 Days tab 03/08/20 DULoxetine HCL [Cymbalta] 60 mg PO DAILY 30 Days capsule. 03/08/20 Docusate [Colace] 100 mg PO BID PRN 30 Days cap 03/08/20 Nystatin 100,000Unit/gm Cream 1 applic TOPICAL BID #1 applic 03/08/20 [Mycostatin Cream] fluPHENAZine decanoate [Prolixin 12.5 mg IM [id number] #1 vial 03/08/20 Decanoate] Allergies Allergy/AdvReac Type Severity Reaction Status Date / Time Iodinated Contrast Media Allergy Anaphylaxis Verified 04/12/20 07:30 [Iodinated Contrast Media - IV Dye] peanut Allergy Anaphylaxis Verified 04/12/20 07:30 Penicillins Allergy Anaphylaxis Verified 04/12/20 07:30 shellfish derived Allergy Anaphylaxis Verified 04/12/20 07:30 cephalexin monohydrate AdvReac Nausea & Verified 04/12/20 07:30 [From Keflex] Vomiting & Diarrhea trazodone AdvReac bp Verified 04/12/20 07:30 issues/dissiness--patient takes at home Review of Systems ROS Other: All systems not noted in ROS Statement are negative. Constitutional: Denies: fever, chills Eyes: Denies: vision change Respiratory: Denies: cough, dyspnea Cardiovascular: Denies: chest pain, palpitations, syncope Gastrointestinal: Denies: abdominal pain, vomiting, diarrhea Genitourinary: Denies: dysuria, frequency, hematuria Musculoskeletal: Denies: back pain Skin: Denies: rash Neurological: Denies: headache, weakness Psychiatric: Reports: depression, suicidal thoughts. Denies: auditory mcneill ucinations, visual hallucinations, homicidal thoughts <Silvestre Reyes - Last Filed: 04/12/20 00:59> ROS Other: All systems not noted in ROS Statement are negative. <Stefano Gore - Last Filed: 04/13/20 08:06> ROS Statement: Those systems with pertinent positive or pertinent negative responses have been documented in the HPI. Past Medical History Past Medical History: Asthma, Diabetes Mellitus, Seizure Disorder Additional Past Medical History / Comment(s): OVARIAN CYST, Schizophrenia, BIPOLAR, SCOLOSIS, chronic back pain, gout History of Any Multi-Drug Resistant Organisms: None Reported Past Surgical History: Cholecystectomy Additional Past Surgical History / Comment(s): LEFT OVARY, D&C Past Anesthesia/Blood Transfusion Reactions: No Reported Reaction Past Psychological History: Anxiety, Bipolar, Depression, Schizophrenia Smoking Status: Former smoker Past Alcohol Use History: None Reported Past Drug Use History: Cocaine, Marijuana, Prescription Drug Abuse - Past Family History Mother History Unknown: Yes Family Medical History: Cancer Additional Family Medical History / Comment(s): pt states is unaware of history <Silvestre Reyes - Last Filed: 04/12/20 00:59> General Exam Limitations: no limitations General appearance: alert, in no apparent distress Head exam: Present: atraumatic, normocephalic Eye exam: Present: normal appearance. Absent: scleral icterus, conjunctival injection Neck exam: Present: normal inspection, full ROM Respiratory exam: Present: normal lung sounds bilaterally. Absent: respiratory distress, wheezes, rales, rhonchi, stridor Cardiovascular Exam: Present: regular rate, normal rhythm, normal heart sounds. Absent: systolic murmur, diastolic murmur, rubs, gallop GI/Abdominal exam: Present: soft. Absent: distended, tenderness, guarding, rebound, rigid, mass Extremities exam: Present: normal inspection, normal capillary refill. Absent: pedal edema, calf tenderness Back exam: Present: normal inspection. Absent: CVA tenderness (R), CVA tenderness (L) Neurological exam: Present: alert Psychiatric exam: Present: depressed, suicidal ideation. Absent: anxious, flat affect, manic, homicidal ideation Skin exam: Present: warm, dry, intact, normal color. Absent: rash <SheilaSilvestre huitron - Last Filed: 04/12/20 00:59> Course Vital Signs 04/11/20 04/12/20 04/12/20 23:59 06:54 13:00 Temperature 98 F 98.3 F 98.2 F Pulse Rate 72 72 82 Respiratory 20 16 18 Rate Blood Pressure 128/89 101/45 124/72 O2 Sat by Pulse 99 97 99 Oximetry Medical Decision Making - EKG Data -: EKG Interpreted by Id EKG shows normal: sinus rhythm, intervals (MD interval 172 ms, QTC 509 ms, both normal. QRS duration 168 ms, prolonged consistent with the bifascicular block.), QRS complexes (The patient has right bundle-branch block and left anterior fascicular block, consistent with bifascicular block.) Rate: normal (Rate 66 bpm) When compared to previous EKG there are: no significant change, other (The bifascicular block is present on the comparison EKG from January 2020) <SheilaSilvestre huitron - Last Filed: 04/12/20 00:59> - Lab Data Result diagrams: 04/12/20 00:47 04/12/20 00:47 <Stefano Gore - Last Filed: 04/13/20 08:06> - Lab Data Lab Results 04/12/20 04/12/20 04/12/20 Range/Units 00:47 00:47 00:47 WBC 21.4 H (3.8-10.6) k/uL RBC 4.78 (3.80-5.40) m/uL Hgb 12.4 (11.4-16.0) gm/dL Hct 39.9 (34.0-46.0) % MCV 83.5 (80.0-100.0) fL MCH 25.9 (25.0-35.0) pg MCHC 31.1 (31.0-37.0) g/dL RDW 14.7 (11.5-15.5) % Plt Count 261 (150-450) k/uL Neutrophils % 78 % Lymphocytes % 14 % Monocytes % 4 % Eosinophils % 3 % Basophils % 1 % Neutrophils # 16.7 H (1.3-7.7) k/uL Lymphocytes # 3.0 (1.0-4.8) k/uL Monocytes # 0.9 (0-1.0) k/uL Eosinophils # 0.5 (0-0.7) k/uL Basophils # 0.1 (0-0.2) k/uL Sodium (137-145) mmol/L Potassium (3.5-5.1) mmol/L Chloride (98-107) mmol/L Carbon Dioxide (22-30) mmol/L Anion Gap mmol/L BUN (7-17) mg/dL Creatinine (0.52-1.04) mg/dL Est GFR (CKD-EPI)AfAm (>60 ml/min/1.73 sqM) Est GFR (CKD-EPI)NonAf (>60 ml/min/1.73 sqM) Glucose (74-99) mg/dL Calcium (8.4-10.2) mg/dL Total Bilirubin (0.2-1.3) mg/dL AST (14-36) U/L ALT (4-34) U/L Alkaline Phosphatase (38-126) U/L Total Protein (6.3-8.2) g/dL Albumin (3.5-5.0) g/dL Urine HCG, Qual Not Detected (Not Detectd) Salicylates mg/dL Urine Opiates Screen Not Detected (NotDetected) Ur Oxycodone Screen Not Detected (NotDetected) Urine Methadone Screen Not Detected (NotDetected) Ur Propoxyphene Screen Not Detected (NotDetected) Acetaminophen ug/mL Ur Barbiturates Screen Not Detected (NotDetected) U Tricyclic Antidepress Not Detected (NotDetected) Ur Phencyclidine Scrn Not Detected (NotDetected) Ur Amphetamines Screen Not Detected (NotDetected) U Methamphetamines Scrn Not Detected (NotDetected) U Benzodiazepines Scrn Not Detected (NotDetected) Urine Cocaine Screen Detected H (NotDetected) U Marijuana (THC) Screen Not Detected (NotDetected) Serum Alcohol mg/dL 04/12/20 Range/Units 00:47 WBC (3.8-10.6) k/uL RBC (3.80-5.40) m/uL Hgb (11.4-16.0) gm/dL Hct (34.0-46.0) % MCV (80.0-100.0) fL MCH (25.0-35.0) pg MCHC (31.0-37.0) g/dL RDW (11.5-15.5) % Plt Count (150-450) k/uL Neutrophils % % Lymphocytes % % Monocytes % % Eosinophils % % Basophils % % Neutrophils # (1.3-7.7) k/uL Lymphocytes # (1.0-4.8) k/uL Monocytes # (0-1.0) k/uL Eosinophils # (0-0.7) k/uL Basophils # (0-0.2) k/uL Sodium 139 (137-145) mmol/L Potassium 4.1 (3.5-5.1) mmol/L Chloride 107 (98-107) mmol/L Carbon Dioxide 23 (22-30) mmol/L Anion Gap 9 mmol/L BUN 12 (7-17) mg/dL Creatinine 0.88 (0.52-1.04) mg/dL Est GFR (CKD-EPI)AfAm >90 (>60 ml/min/1.73 sqM) Est GFR (CKD-EPI)NonAf 82 (>60 ml/min/1.73 sqM) Glucose 117 H (74-99) mg/dL Calcium 9.1 (8.4-10.2) mg/dL Total Bilirubin 0.5 (0.2-1.3) mg/dL AST 24 (14-36) U/L ALT 14 (4-34) U/L Alkaline Phosphatase 114 (38-126) U/L Total Protein 7.6 (6.3-8.2) g/dL Albumin 4.2 (3.5-5.0) g/dL Urine HCG, Qual (Not Detectd) Salicylates <1.0 mg/dL Urine Opiates Screen (NotDetected) Ur Oxycodone Screen (NotDetected) Urine Methadone Screen (NotDetected) Ur Propoxyphene Screen (NotDetected) Acetaminophen <10.0 ug/mL Ur Barbiturates Screen (NotDetected) U Tricyclic Antidepress (NotDetected) Ur Phencyclidine Scrn (NotDetected) Ur Amphetamines Screen (NotDetected) U Methamphetamines Scrn (NotDetected) U Benzodiazepines Scrn (NotDetected) Urine Cocaine Screen (NotDetected) U Marijuana (THC) Screen (NotDetected) Serum Alcohol <10 mg/dL Disposition <Silvestre Reyes - Last Filed: 04/12/20 00:59> Is patient prescribed a controlled substance at d/c from ED?: No Time of Disposition: 12:52 <Stefano Gore - Last Filed: 04/13/20 08:06> Clinical Impression: Situational depression, Cocaine abuse Disposition: HOME SELF-CARE Condition: Good Instructions (If sedation given, give patient instructions): Cocaine Abuse (ED), Depression (ED) Referrals: [facility] [Primary Care Provider] - 1-2 days
[2020-04-12 01:07] LABS: Basophils # (A) 0.1 k/uL (0-0.2); Basophils % (A) 1 %; Eosinophils # (A) 0.5 k/uL (0-0.7); Eosinophils % (A) 3 %; HCT 39.9 % (34.0-46.0); HGB 12.4 gm/dL (11.4-16.0); Lymphocytes % (A) 14 %; MCH 25.9 pg (25.0-35.0); MCHC 31.1 g/dL (31.0-37.0); MCV 83.5 fL (80.0-100.0); Mean Platelet Volume 7.2; Monocytes # (A) 0.9 k/uL (0-1.0); Monocytes % (A) 4 %; Neutrophils # (A) 16.7 k/uL (1.3-7.7); Neutrophils % (A) 78 %; Platelet Count 261 k/uL (150-450); RBC 4.78 m/uL (3.80-5.40); RDW 14.7 % (11.5-15.5); WBC 21.4 k/uL (3.8-10.6)
[2020-04-12 01:11] LABS: Amphetamine Screen,Urine Not Detected (NotDetected); Barbiturate Screen,Urine Not Detected (NotDetected); Benzodiazepines Screen,Urine Not Detected (NotDetected); Cocaine Screen,Urine Detected (NotDetected); Methadone Screen, Urine Not Detected (NotDetected); Opiate Screen,Urine Not Detected (NotDetected); Oxycodone Screen, Urine Not Detected (NotDetected); Phencyclidine Screen,Urine Not Detected (NotDetected); Tricyclic Antidepressant,Urine Not Detected (NotDetected); Urn Cannabinoid Scrn Not Detected (NotDetected)
[2020-04-12 01:14] LABS: ALT 14 U/L (4-34); AST 24 U/L (14-36); Acetaminophen <10.0 ug/mL; African American GFR (CKD) >90 (>60 ml/min/1.73 sqM); Albumin 4.2 g/dL (3.5-5.0); Alcohol <10 mg/dL; Alkaline Phosphatase 114 U/L (38-126); Anion Gap 9 mmol/L; Blood Urea Nitrogen 12 mg/dL (7-17); Calcium 9.1 mg/dL (8.4-10.2); Carbon Dioxide 23 mmol/L (22-30); Chloride 107 mmol/L (98-107); Glucose 117 mg/dL (74-99); Non-African American GFR(CKD) 82 (>60 ml/min/1.73 sqM); Potassium 4.1 mmol/L (3.5-5.1); Salicylate <1.0 mg/dL; Sodium 139 mmol/L (137-145); Total Bilirubin 0.5 mg/dL (0.2-1.3); Total Protein 7.6 g/dL (6.3-8.2)
[2020-04-12] MEDS ORDERED: LORazepam 1 MG TAB PO STA (06:54)
[2020-04-12 13:32] VITALS: BP 124/72; PULSE 82; RESP 18; TEMP 98.2
== END 2020-04-12 13:39 | disposition home or self-care (01) ==
LOC: EC 23:57
DX: F14.10 Cocaine abuse, uncomplicated (principal); F43.21 Adjustment disorder with depressed mood; J45.909 Unspecified asthma, uncomplicated; E11.9 Type 2 diabetes mellitus without complications; G40.909 Epilepsy, unspecified, not intractable, without status epilepticus; F41.9 Anxiety disorder, unspecified; F31.9 Bipolar disorder, unspecified; F20.9 Schizophrenia, unspecified; Z79.51 Long term (current) use of inhaled steroids; Z79.4 Long term (current) use of insulin; Z79.82 Long term (current) use of aspirin; Z79.899 Other long term (current) drug therapy; Z91.041 Radiographic dye allergy status; Z91.010 Allergy to peanuts; Z88.0 Allergy status to penicillin; Z88.1 Allergy status to other antibiotic agents; Z91.013 Allergy to seafood; Z88.8 Allergy status to other drugs, medicaments and biological substances; Z87.891 Personal history of nicotine dependence
CPT/HCPCS: 82075; 36415; 93005; 80053; 85025; 81025; 80306; 83520; 99285; G0480 ×2; 80320; 80329

== ENCOUNTER 2020-04-20 10:15 | Emergency (ER) | payer OTHER ==
[2020-04-20 10:22] VITALS: BP 147/79; PULSE 59; RESP 18; TEMP 97.8
[2020-04-20] MEDS ORDERED: METOCLOPRAMIDE 5 MG/ML 2 ML VIAL IM STA (10:38)
[2020-04-20] MEDS ORDERED: HYDROcodone/APAP 5-325MG 1 EACH TAB PO STA (10:38)
[2020-04-20] MEDS ORDERED: diphenhydrAMINE 25 MG CAP PO STA (10:38)
[2020-04-20] MEDS ORDERED: KETOROLAC 15 MG/ML 1 ML VIAL IM STA (10:38)
[2020-04-20] MEDS ORDERED: ORPHENADRINE 30 MG/ML 2 ML VIAL IM STA (10:40)
--- NOTE | 2020-04-20 10:54 | ED ---
Headache HPI - General Chief Complaint: Headache Stated Complaint: Head ache Time Seen by Provider: 04/20/20 10:22 Source: RN notes reviewed, old records reviewed Mode of arrival: ambulatory Limitations: no limitations - History of Present Illness Initial Comments: Martha 40-year-old female who presents to the ER today for evaluation with complaints of migraine headache for the past 2 days. She states that she is out of her chronic pain medication. 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 Patient states that this is similar to previous migraine headaches. Does complain of some nausea. Patient denies any other complaints. - Related Data Home Medications Medication Instructions Recorded Confirmed Fluticasone Nasal [place] [Flonase 1 spray EA NOSTRIL DAILY 12/16/18 04/12/20 Nasal [place]] Zonisamide [Zonegran] 300 mg PO BID 12/16/18 04/12/20 Baclofen 10 mg PO BID PRN 12/16/19 04/12/20 Budesonide [Pulmicort Flexhaler] 1 puff INHALATION RT-BID 12/16/19 04/12/20 Cholecalciferol [Vitamin D3 (25 5,000 unit PO DAILY 12/16/19 04/12/20 Mcg = 1000 Iu)] Insulin Lispro [Admelog] 20 units SQ BID 12/16/19 04/12/20 Montelukast [Singulair] 10 mg PO HS 12/16/19 04/12/20 Omeprazole 20 mg PO DAILY 12/16/19 04/12/20 allopurinoL [Zyloprim] 100 mg PO DAILY 12/16/19 04/12/20 Cyanocobalamin [Vitamin B-12 1,000 mcg IM DAILY 02/11/20 04/12/20 Injection] ARIPiprazole [Abilify] 10 mg PO DAILY 04/12/20 04/12/20 Aspirin EC [Ecotrin Low Dose] 81 mg PO DAILY 04/12/20 04/12/20 Bismuth Subsalicylate 524 mg PO Q8H PRN 04/12/20 04/12/20 [Pepto-Bismol] Naltrexone HCl [Revia] 50 mg PO DAILY 04/12/20 04/12/20 hydrOXYzine pamoate [Vistaril] 25 mg PO Q6HR 04/12/20 04/12/20 lamoTRIgine [LaMICtal] See Taper PO DAILY 04/12/20 04/12/20 traZODone HCL 50 mg PO HS 04/12/20 04/12/20 Previous Rx's Medication Instructions Recorded Acetaminophen Tab [Tylenol] 650 mg PO Q6HR PRN 30 Days tab 03/08/20 DULoxetine HCL [Cymbalta] 60 mg PO DAILY 30 Days capsule. 03/08/20 Docusate [Colace] 100 mg PO BID PRN 30 Days cap 03/08/20 Nystatin 100,000Unit/gm Cream 1 applic TOPICAL BID #1 applic 03/08/20 [Mycostatin Cream] fluPHENAZine decanoate [Prolixin 12.5 mg IM [id number] #1 vial 03/08/20 Decanoate] Allergies Allergy/AdvReac Type Severity Reaction Status Date / Time Iodinated Contrast Media Allergy Anaphylaxis Verified 04/20/20 10:20 [Iodinated Contrast Media - IV Dye] peanut Allergy Anaphylaxis Verified 04/20/20 10:20 Penicillins Allergy Anaphylaxis Verified 04/20/20 10:20 shellfish derived Allergy Anaphylaxis Verified 04/20/20 10:20 cephalexin monohydrate AdvReac Nausea & Verified 04/20/20 10:20 [From Keflex] Vomiting & Diarrhea trazodone AdvReac bp Verified 04/20/20 10:20 issues/dissiness--patient takes at home Review of Systems ROS Statement: Those systems with pertinent positive or pertinent negative responses have been documented in the HPI. ROS Other: All systems not noted in ROS Statement are negative. Past Medical History Past Medical History: Asthma, Diabetes Mellitus, Seizure Disorder Additional Past Medical History / Comment(s): OVARIAN CYST, Schizophrenia, BIPOLAR, SCOLOSIS, chronic back pain, gout History of Any Multi-Drug Resistant Organisms: None Reported Past Surgical History: Cholecystectomy Additional Past Surgical History / Comment(s): LEFT OVARY, D&C Past Anesthesia/Blood Transfusion Reactions: No Reported Reaction Past Psychological History: Anxiety, Bipolar, Depression, Schizophrenia Smoking Status: Former smoker Past Alcohol Use History: None Reported Past Drug Use History: Cocaine, Marijuana, Prescription Drug Abuse - Past Family History Mother History Unknown: Yes Family Medical History: Cancer Additional Family Medical History / Comment(s): pt states is unaware of history General Exam - General Exam Comments Initial Comments: 40-year-old female. Alert and oriented. No distress. Limitations: no limitations General appearance: alert, in no apparent distress Head exam: Present: atraumatic, normocephalic, normal inspection Eye exam: Present: normal appearance, PERRL, EOMI. Absent: scleral icterus, conjunctival injection, periorbital swelling ENT exam: Present: normal exam, mucous membranes moist Neck exam: Present: normal inspection. Absent: tenderness, meningismus, lymphadenopathy Respiratory exam: Present: normal lung sounds bilaterally. Absent: respiratory distress, wheezes, rales, rhonchi, stridor Cardiovascular Exam: Present: regular rate, normal rhythm, normal heart sounds. Absent: systolic murmur, diastolic murmur, rubs, gallop, clicks GI/Abdominal exam: Present: soft, normal bowel sounds. Absent: distended, tenderness, guarding, rebound, rigid Extremities exam: Present: normal inspection, full ROM, normal capillary refill. Absent: tenderness, pedal edema, joint swelling, calf tenderness Back exam: Present: normal inspection Neurological exam: Present: alert, oriented X3, CN II-XII intact Expanded Patient oriented to: Present: person, place, time Speech: Present: fluid speech Cranial nerves: EOM's Intact: Normal Cerebellar function: Finger to Nose: Normal Upper motor neuron: Pronator Drift: Normal Sensory exam: Upper Extremity Light Touch: Normal, Lower Extremity Pin Prick: Normal Motor strength exam: RUE: 5, LUE: 5, RLE: 5, LLE: 5 Eye Response: (4) open spontaneously Motor Response: (6) obeys commands Verbal Response: (5) oriented [place] Total: 15 Psychiatric exam: Present: normal affect, normal mood Skin exam: Present: warm, dry, intact, normal color. Absent: rash Course Vital Signs 04/20/20 10:18 Temperature 97.8 F Pulse Rate 59 L Respiratory 18 Rate Blood Pressure 147/79 O2 Sat by Pulse 98 Oximetry Medical Decision Making - Medical Decision Making 40-year-old Female presents to the ER today for evaluation for migraine headache. States she is out of her chronic pain medicine. Patient reports that this headache similar to previous. It then progressed for 2 days. Vital signs are stable. She has no acute neurological deficits. Offered pain medication migraine cocktail she says she feels improved. She received IM injections and will be discharged home at this time. Discussed no prescriptions for pain medication in the emergency department. Disposition Clinical Impression: Migraine headache Disposition: HOME SELF-CARE Condition: Good Instructions (If sedation given, give patient instructions): Migraine Headache (ED) Additional Instructions: Please follow up with family doctor if symptoms have not improved over the next two days. Please return to the emergency room if your symptoms increase or worsen or for any other concerns. Is patient prescribed a controlled substance at d/c from ED?: No Referrals: [facility] [Primary Care Provider] - 1-2 days Time of Disposition: 10:54
== END 2020-04-20 11:05 | disposition home or self-care (01) ==
LOC: EC 10:15
DX: G43.909 Migraine, unspecified, not intractable, without status migrainosus (principal); J45.909 Unspecified asthma, uncomplicated; E11.9 Type 2 diabetes mellitus without complications; G40.909 Epilepsy, unspecified, not intractable, without status epilepticus; F41.9 Anxiety disorder, unspecified; F31.9 Bipolar disorder, unspecified; F20.9 Schizophrenia, unspecified; Z79.84 Long term (current) use of oral hypoglycemic drugs; Z79.899 Other long term (current) drug therapy; Z88.0 Allergy status to penicillin; Z88.1 Allergy status to other antibiotic agents; Z88.8 Allergy status to other drugs, medicaments and biological substances; Z91.010 Allergy to peanuts; Z91.013 Allergy to seafood; Z91.041 Radiographic dye allergy status; Z87.891 Personal history of nicotine dependence
CPT/HCPCS: 96372 ×3; 99283; J2360; J2765; J1885

== ENCOUNTER 2020-07-09 14:49 | Emergency (ER) | payer OTHER ==
[2020-07-09 15:30] VITALS: BP 149/67; PULSE 69; RESP 18; TEMP 98.9
[2020-07-09] MEDS ORDERED: ACETAMINOPHEN TAB 500 MG TAB PO STA (15:52)
[2020-07-09] MEDS ORDERED: KETOROLAC 15 MG/ML 1 ML VIAL IM STA (15:52)
[2020-07-09] MEDS ORDERED: diphenhydrAMINE 50 MG CAP PO STA (15:52)
[2020-07-09] MEDS ORDERED: ONDANSETRON ODT 4 MG TAB PO STA (15:52)
--- NOTE | 2020-07-09 16:41 | ED ---
General Adult HPI - General Chief complaint: Abdominal Pain Stated complaint: NVD,Headache Time Seen by Provider: 07/09/20 15:37 Source: patient, RN notes reviewed Mode of arrival: ambulatory Limitations: no limitations - History of Present Illness Initial comments: This a 40-year-old female presents emergency Department with chief complaint of generalized not feeling well. Patient states she's a headache, intermittent nausea/vomiting/diarrhea. Patient states that she has some cramping in her abdomen but no localized abdominal pain. No definite fever states that she's had some chills. Patient does admit that she was recently at [facility] and she is staying at a rehab facility. Patient denies any current chest pain or shortness of breath she's had a dry hacking cough. - Related Data Home Medications Medication Instructions Recorded Confirmed Fluticasone Nasal [place] [Flonase 1 spray EA NOSTRIL DAILY 12/16/18 04/12/20 Nasal [place]] Zonisamide [Zonegran] 300 mg PO BID 12/16/18 04/12/20 Baclofen 10 mg PO BID PRN 12/16/19 04/12/20 Budesonide [Pulmicort Flexhaler] 1 puff INHALATION RT-BID 12/16/19 04/12/20 Cholecalciferol [Vitamin D3 (25 5,000 unit PO DAILY 12/16/19 04/12/20 Mcg = 1000 Iu)] Insulin Lispro [Admelog] 20 units SQ BID 12/16/19 04/12/20 Montelukast [Singulair] 10 mg PO HS 12/16/19 04/12/20 Omeprazole 20 mg PO DAILY 12/16/19 04/12/20 allopurinoL [Zyloprim] 100 mg PO DAILY 12/16/19 04/12/20 Cyanocobalamin [Vitamin B-12 1,000 mcg IM DAILY 02/11/20 04/12/20 Injection] ARIPiprazole [Abilify] 10 mg PO DAILY 04/12/20 04/12/20 Aspirin EC [Ecotrin Low Dose] 81 mg PO DAILY 04/12/20 04/12/20 Bismuth Subsalicylate 524 mg PO Q8H PRN 04/12/20 04/12/20 [Pepto-Bismol] Naltrexone HCl [Revia] 50 mg PO DAILY 04/12/20 04/12/20 hydrOXYzine pamoate [Vistaril] 25 mg PO Q6HR 04/12/20 04/12/20 lamoTRIgine [LaMICtal] See Taper PO DAILY 04/12/20 04/12/20 traZODone HCL 50 mg PO HS 04/12/20 04/12/20 Previous Rx's Medication Instructions Recorded Acetaminophen Tab [Tylenol] 650 mg PO Q6HR PRN 30 Days tab 03/08/20 DULoxetine HCL [Cymbalta] 60 mg PO DAILY 30 Days capsule. 03/08/20 Docusate [Colace] 100 mg PO BID PRN 30 Days cap 03/08/20 Nystatin 100,000Unit/gm Cream 1 applic TOPICAL BID #1 applic 03/08/20 [Mycostatin Cream] fluPHENAZine decanoate [Prolixin 12.5 mg IM [id number] #1 vial 03/08/20 Decanoate] Ondansetron Odt [Zofran Odt] 4 mg PO Q8HR PRN #10 tab 07/09/20 Allergies Allergy/AdvReac Type Severity Reaction Status Date / Time Iodinated Contrast Media Allergy Anaphylaxis Verified 07/09/20 15:30 [Iodinated Contrast Media - IV Dye] peanut Allergy Anaphylaxis Verified 07/09/20 15:30 Penicillins Allergy Anaphylaxis Verified 07/09/20 15:30 shellfish derived Allergy Anaphylaxis Verified 07/09/20 15:30 cephalexin monohydrate AdvReac Nausea & Verified 07/09/20 15:30 [From Keflex] Vomiting & Diarrhea trazodone AdvReac bp Verified 07/09/20 15:30 issues/dissiness--patient takes at home Review of Systems ROS Statement: Those systems with pertinent positive or pertinent negative responses have been documented in the HPI. ROS Other: All systems not noted in ROS Statement are negative. Past Medical History Past Medical History: Asthma, Diabetes Mellitus, Seizure Disorder Additional Past Medical History / Comment(s): OVARIAN CYST, Schizophrenia, BIPOLAR, SCOLOSIS, chronic back pain, gout History of Any Multi-Drug Resistant Organisms: None Reported Past Surgical History: Cholecystectomy Additional Past Surgical History / Comment(s): LEFT OVARY, D&C Past Anesthesia/Blood Transfusion Reactions: No Reported Reaction Past Psychological History: Anxiety, Bipolar, Depression, Schizophrenia Smoking Status: Former smoker Past Alcohol Use History: None Reported Past Drug Use History: Cocaine, Marijuana, Prescription Drug Abuse - Past Family History Mother History Unknown: Yes Family Medical History: Cancer Additional Family Medical History / Comment(s): pt states is unaware of history General Exam Limitations: no limitations General appearance: alert, in no apparent distress Head exam: Present: atraumatic, normocephalic, normal inspection Eye exam: Present: normal appearance, PERRL, EOMI. Absent: scleral icterus, conjunctival injection, periorbital swelling ENT exam: Present: normal exam, normal oropharynx, mucous membranes moist Neck exam: Present: normal inspection, full ROM. Absent: tenderness, meningismus, lymphadenopathy Respiratory exam: Present: normal lung sounds bilaterally. Absent: respiratory distress, wheezes, rales, rhonchi, stridor Cardiovascular Exam: Present: regular rate, normal rhythm, normal heart sounds. Absent: systolic murmur, diastolic murmur, rubs, gallop, clicks GI/Abdominal exam: Present: soft, normal bowel sounds. Absent: distended, tenderness, guarding, rebound, rigid Neurological exam: Present: alert, oriented X3, CN II-XII intact Skin exam: Present: warm, dry, intact, normal color. Absent: rash Course Vital Signs 07/09/20 15:28 Temperature 98.9 F Pulse Rate 69 Respiratory 18 Rate Blood Pressure 149/67 O2 Sat by Pulse 99 Oximetry Medical Decision Making - Medical Decision Making Og virus testing is negative x-rays unremarkable. Patient has a viral syndrome. Patient discharged in stable condition with close follow-up. Return parameters were discussed. - Lab Data Lab Results 07/09/20 Range/Units 16:06 Coronavirus (PCR) Not Detected (Not Detectd) Disposition Clinical Impression: Viral syndrome Disposition: HOME SELF-CARE Condition: Stable Instructions (If sedation given, give patient instructions): Viral Syndrome (ED) Additional Instructions: Please return to the Emergency Department if symptoms worsen or any other concerns. Prescriptions: Ondansetron Odt [Zofran Odt] 4 mg PO Q8HR PRN #10 tab PRN Reason: Nausea Is patient prescribed a controlled substance at d/c from ED?: No [facility] [[facility] Care Provider] - 1-2 days Time of Disposition: 17:05
--- NOTE | 2020-07-09 17:01 | XR ---
EXAMINATION TYPE: XR chest 2V DATE OF EXAM: 07/09/2020 COMPARISON: 02/21/2020 HISTORY: Chest pressure TECHNIQUE: 2 views FINDINGS: Heart and mediastinum are normal. Lungs are clear. Diaphragm is normal. Bony thorax appears normal. IMPRESSION: Normal chest. No change.
== END 2020-07-09 17:09 | disposition home or self-care (01) ==
LOC: EC 14:49
DX: B34.9 Viral infection, unspecified (principal); E11.9 Type 2 diabetes mellitus without complications; J45.909 Unspecified asthma, uncomplicated; M10.9 Gout, unspecified; G89.29 Other chronic pain; M54.9 Dorsalgia, unspecified; G40.909 Epilepsy, unspecified, not intractable, without status epilepticus; F32.9 Major depressive disorder, single episode, unspecified; F20.9 Schizophrenia, unspecified; F41.9 Anxiety disorder, unspecified; Z79.51 Long term (current) use of inhaled steroids; Z79.82 Long term (current) use of aspirin; Z79.4 Long term (current) use of insulin; Z91.041 Radiographic dye allergy status; Z91.010 Allergy to peanuts; Z88.0 Allergy status to penicillin; Z91.013 Allergy to seafood; Z88.1 Allergy status to other antibiotic agents; Z88.8 Allergy status to other drugs, medicaments and biological substances; Z87.891 Personal history of nicotine dependence; Z90.49 Acquired absence of other specified parts of digestive tract; Z20.828 Contact with and (suspected) exposure to other viral communicable diseases
CPT/HCPCS: 87635; 71046; 99284; 96372; J1885

== ENCOUNTER 2020-07-15 00:42 | Emergency (ER) | payer OTHER ==
[2020-07-15 00:52] VITALS: TEMP 98.5
[2020-07-15] MEDS ORDERED: SODIUM CHLORIDE 0.9% 500 ML 500 ML IV STA (00:58)
[2020-07-15] MEDS ORDERED: METOCLOPRAMIDE 5 MG/ML 2 ML VIAL IVP STA (01:02)
[2020-07-15] MEDS ORDERED: ACETAMINOPHEN TAB 325 MG TAB PO STA (01:02)
--- NOTE | 2020-07-15 01:20 | XR ---
EXAM: XR Abdomen, 2 Views CLINICAL HISTORY: ITS.REASON XR Reason: abdominal pain TECHNIQUE: Frontal view of the abdomen/pelvis with upright view of the abdomen. COMPARISON: CT dated 12/02/2019 FINDINGS: Intraperitoneal space: No free air. Gastrointestinal tract: Nonobstructive bowel gas pattern. Moderate fecal burden throughout the ascending colon. No dilation. Cholecystectomy and right adnexal surgical clips. Bones/joints: Unremarkable. IMPRESSION: Nonobstructive bowel gas pattern. Moderate fecal burden throughout the ascending colon.
[2020-07-15 01:30] LABS: Basophils # (A) 0.2 k/uL (0-0.2); Basophils % (A) 1 %; Eosinophils # (A) 0.6 k/uL (0-0.7); Eosinophils % (A) 4 %; HCT 42.1 % (34.0-46.0); HGB 13.7 gm/dL (11.4-16.0); Lymphocytes # (A) 2.5 k/uL (1.0-4.8); Lymphocytes % (A) 17 %; MCH 26.7 pg (25.0-35.0); MCHC 32.5 g/dL (31.0-37.0); MCV 82.1 fL (80.0-100.0); Mean Platelet Volume 6.7; Monocytes # (A) 0.5 k/uL (0-1.0); Monocytes % (A) 4 %; Neutrophils # (A) 10.4 k/uL (1.3-7.7); Neutrophils % (A) 73 %; Platelet Count 267 k/uL (150-450); RBC 5.13 m/uL (3.80-5.40); RDW 14.9 % (11.5-15.5); WBC 14.3 k/uL (3.8-10.6)
[2020-07-15 01:36] LABS: Appearance,Urine Cloudy (Clear); Bacteria,Urine Occasional /hpf; Bilirubin,Urine Negative (Negative); Blood,Urine Negative (Negative); Color,Urine Yellow; Glucose,Urine (UA) Negative (Negative); Ketones,Urine Negative (Negative); Leukocyte Esterase,Urine Small (Negative); Mucus,Urine Few /hpf; Nitrite,Urine Negative (Negative); PH, Urine 5.5 (5.0-8.0); Protein,Urine Trace (Negative); Specific Gravity,Urine 1.025 (1.001-1.035); Squamous Epithelial Cell,Urine 14 /hpf (0-4); Urobilinogen,Urine <2.0 mg/dL (<2.0); WBC,Urine 6 /hpf (0-5)
[2020-07-15 01:40] LABS: Albumin 4.2 g/dL (3.5-5.0); Calcium 9.2 mg/dL (8.4-10.2); Potassium 4.3 mmol/L (3.5-5.1); Total Protein 7.9 g/dL (6.3-8.2)
[2020-07-15 02:00] LABS: Total Bilirubin 0.3 mg/dL (0.2-1.3)
--- NOTE | 2020-07-15 02:30 | ED ---
General Adult HPI - General Chief complaint: Nausea/Vomiting/Diarrhea Stated complaint: abd pain,SOB Time Seen by Provider: 07/15/20 00:53 Source: patient, RN notes reviewed, old records reviewed Mode of arrival: ambulatory Limitations: no limitations - History of Present Illness Initial comments: 40-year-old female patient to ED for diarrhea and nausea without emesis. She reports this has been ongoing for the last states or so. She reports some generalized abdominal discomfort and cramping. She denies any other acute complaints. Systemic: Pt denies fatigue, fever/chills, rash. Pt denies weakness, night sweats, weight loss. Neuro: Pt denies headache, visual disturbances, syncope or pre-syncope. HEENT: Pt denies ocular discharge or irritation, otalgia, rhinorrhea, pharyngitis or notable lymphadenopathy. Cardiopulmonary: Pt denies chest pain, SOB, heart palpitations, dyspnea on exertion. : Pt denies dysuria, burning w/ urination, frequency/urgency. Denies new onset urinary or bowel incontinence. MSK: Pt denies myalgia, loss of strength or function in extremities. Neuro: Pt denies new onset weakness, paresthesias. - Related Data Home Medications Medication Instructions Recorded Confirmed Fluticasone Nasal [place] [Flonase 1 spray EA NOSTRIL DAILY 12/16/18 04/12/20 Nasal [place]] Zonisamide [Zonegran] 300 mg PO BID 12/16/18 04/12/20 Baclofen 10 mg PO BID PRN 12/16/19 04/12/20 Budesonide [Pulmicort Flexhaler] 1 puff INHALATION RT-BID 12/16/19 04/12/20 Cholecalciferol [Vitamin D3 (25 5,000 unit PO DAILY 12/16/19 04/12/20 Mcg = 1000 Iu)] Insulin Lispro [Admelog] 20 units SQ BID 12/16/19 04/12/20 Montelukast [Singulair] 10 mg PO HS 12/16/19 04/12/20 Omeprazole 20 mg PO DAILY 12/16/19 04/12/20 allopurinoL [Zyloprim] 100 mg PO DAILY 12/16/19 04/12/20 Cyanocobalamin [Vitamin B-12 1,000 mcg IM DAILY 02/11/20 04/12/20 Injection] ARIPiprazole [Abilify] 10 mg PO DAILY 04/12/20 04/12/20 Aspirin EC [Ecotrin Low Dose] 81 mg PO DAILY 04/12/20 04/12/20 Bismuth Subsalicylate 524 mg PO Q8H PRN 04/12/20 04/12/20 [Pepto-Bismol] Naltrexone HCl [Revia] 50 mg PO DAILY 04/12/20 04/12/20 hydrOXYzine pamoate [Vistaril] 25 mg PO Q6HR 04/12/20 04/12/20 lamoTRIgine [LaMICtal] See Taper PO DAILY 04/12/20 04/12/20 traZODone HCL 50 mg PO HS 04/12/20 04/12/20 Previous Rx's Medication Instructions Recorded Acetaminophen Tab [Tylenol] 650 mg PO Q6HR PRN 30 Days tab 03/08/20 DULoxetine HCL [Cymbalta] 60 mg PO DAILY 30 Days capsule. 03/08/20 Docusate [Colace] 100 mg PO BID PRN 30 Days cap 03/08/20 Nystatin 100,000Unit/gm Cream 1 applic TOPICAL BID #1 applic 03/08/20 [Mycostatin Cream] fluPHENAZine decanoate [Prolixin 12.5 mg IM [id number] #1 vial 03/08/20 Decanoate] Ondansetron Odt [Zofran Odt] 4 mg PO Q8HR PRN #10 tab 07/09/20 Allergies Allergy/AdvReac Type Severity Reaction Status Date / Time Iodinated Contrast Media Allergy Anaphylaxis Verified 07/15/20 00:52 [Iodinated Contrast Media - IV Dye] peanut Allergy Anaphylaxis Verified 07/15/20 00:52 Penicillins Allergy Anaphylaxis Verified 07/15/20 00:52 shellfish derived Allergy Anaphylaxis Verified 07/15/20 00:52 cephalexin monohydrate AdvReac Nausea & Verified 07/15/20 00:52 [From Keflex] Vomiting & Diarrhea trazodone AdvReac bp Verified 07/15/20 00:52 issues/dissiness--patient takes at home Review of Systems ROS Statement: Those systems with pertinent positive or pertinent negative responses have been documented in the HPI. ROS Other: All systems not noted in ROS Statement are negative. Past Medical History Past Medical History: Asthma, Diabetes Mellitus, Seizure Disorder Additional Past Medical History / Comment(s): OVARIAN CYST, Schizophrenia, BIPOLAR, SCOLOSIS, chronic back pain, gout History of Any Multi-Drug Resistant Organisms: None Reported Past Surgical History: Cholecystectomy Additional Past Surgical History / Comment(s): LEFT OVARY, D&C Past Anesthesia/Blood Transfusion Reactions: No Reported Reaction Past Psychological History: Anxiety, Bipolar, Depression, Schizophrenia Smoking Status: Former smoker Past Alcohol Use History: None Reported Past Drug Use History: Cocaine, Marijuana, Prescription Drug Abuse - Past Family History Mother History Unknown: Yes Family Medical History: Cancer Additional Family Medical History / Comment(s): pt states is unaware of history General Exam - General Exam Comments Initial Comments: Constitutional: NAD, AOX3, Pt has pleasant affect. HEENT: NC/AT, trachea midline, neck supple, no lymphadenopathy. External ears appear normal, without discharge. Mucous membranes moist. Eyes PERRLA, EOM intact. There is no scleral icterus. No pallor noted. Cardiopulmonary: RRR, no murmurs, rubs or gallops, no JVD noted. Lungs CTAB in anterior and posterior macias. No peripheral edema. Abdominal exam: Abdomen soft and non-distended. No focal area of abdominal tenderness. Bowel sounds active in LLQ. No hepatosplenomegaly. No ecchymosis Neuro: CN II-XII grossly intact. No nuchal rigidity. No [place]con eyes, no johansen sign, no hemotympanum. No cervical spinal tenderness. MSK:Full active ROM in upper and lower extremities, 5/5 stregnth. Limitations: no limitations Course Vital Signs 07/15/20 00:50 Temperature 98.5 F Pulse Rate 73 Respiratory 16 Rate Blood Pressure 140/75 O2 Sat by Pulse 100 Oximetry Medical Decision Making - Medical Decision Making 40-year-old female patient ED for diarrhea and nausea. Vital signs stable, afebrile. Laboratory investigations are in the field for a leukocytosis which is baseline for patient had improved from prior. Plain film of abdomen displays no cervical bowel gas pattern. Moderate fecal burning throughout the descending colon. Discussed advanced imaging with patient. She would like to decline at this time. She states that she is feeling much improved. Patient discharged with outpatient follow up and return precautions. Case discussed with Dr. Mirza. - Lab Data Result diagrams: 07/15/20 01:15 07/15/20 01:15 Lab Results 07/15/20 07/15/20 07/15/20 Range/Units 01:15 01:15 01:15 WBC 14.3 H (3.8-10.6) k/uL RBC 5.13 (3.80-5.40) m/uL Hgb 13.7 (11.4-16.0) gm/dL Hct 42.1 (34.0-46.0) % MCV 82.1 (80.0-100.0) fL MCH 26.7 (25.0-35.0) pg MCHC 32.5 (31.0-37.0) g/dL RDW 14.9 (11.5-15.5) % Plt Count 267 (150-450) k/uL MPV 6.7 Neutrophils % 73 % Lymphocytes % 17 % Monocytes % 4 % Eosinophils % 4 % Basophils % 1 % Neutrophils # 10.4 H (1.3-7.7) k/uL Lymphocytes # 2.5 (1.0-4.8) k/uL Monocytes # 0.5 (0-1.0) k/uL Eosinophils # 0.6 (0-0.7) k/uL Basophils # 0.2 (0-0.2) k/uL Sodium 141 (137-145) mmol/L Potassium 4.3 (3.5-5.1) mmol/L Chloride 109 H (98-107) mmol/L Carbon Dioxide 23 (22-30) mmol/L Anion Gap 9 mmol/L BUN 16 (7-17) mg/dL Creatinine 0.99 (0.52-1.04) mg/dL Est GFR (CKD-EPI)AfAm 82 (>60 ml/min/1.73 sqM) Est GFR (CKD-EPI)NonAf 71 (>60 ml/min/1.73 sqM) Glucose 119 H (74-99) mg/dL Calcium 9.2 (8.4-10.2) mg/dL Total Bilirubin 0.3 (0.2-1.3) mg/dL AST 22 (14-36) U/L ALT 16 (4-34) U/L Alkaline Phosphatase 115 (38-126) U/L Total Protein 7.9 (6.3-8.2) g/dL Albumin 4.2 (3.5-5.0) g/dL Lipase 142 (23-300) U/L Urine Color Yellow Urine Appearance Cloudy H (Clear) Urine pH 5.5 (5.0-8.0) Ur Specific [place] 1.025 (1.001-1.035) Urine Protein Trace H (Negative) Urine Glucose (UA) Negative (Negative) Urine Ketones Negative (Negative) Urine Blood Negative (Negative) Urine Nitrite Negative (Negative) Urine Bilirubin Negative (Negative) Urine Urobilinogen <2.0 (<2.0) mg/dL Ur Leukocyte Esterase Small H (Negative) Urine WBC 6 H (0-5) /hpf Ur Squamous Epith Cells 14 H (0-4) /hpf Urine Bacteria Occasional H (None) /hpf Urine Mucus Few H (None) /hpf Urine HCG, Qual (Not Detectd) 07/15/20 Range/Units 01:15 WBC (3.8-10.6) k/uL RBC (3.80-5.40) m/uL Hgb (11.4-16.0) gm/dL Hct (34.0-46.0) % MCV (80.0-100.0) fL MCH (25.0-35.0) pg MCHC (31.0-37.0) g/dL RDW (11.5-15.5) % Plt Count (150-450) k/uL MPV Neutrophils % % Lymphocytes % % Monocytes % % Eosinophils % % Basophils % % Neutrophils # (1.3-7.7) k/uL Lymphocytes # (1.0-4.8) k/uL Monocytes # (0-1.0) k/uL Eosinophils # (0-0.7) k/uL Basophils # (0-0.2) k/uL Sodium (137-145) mmol/L Potassium (3.5-5.1) mmol/L Chloride (98-107) mmol/L Carbon Dioxide (22-30) mmol/L Anion Gap mmol/L BUN (7-17) mg/dL Creatinine (0.52-1.04) mg/dL Est GFR (CKD-EPI)AfAm (>60 ml/min/1.73 sqM) Est GFR (CKD-EPI)NonAf (>60 ml/min/1.73 sqM) Glucose (74-99) mg/dL Calcium (8.4-10.2) mg/dL Total Bilirubin (0.2-1.3) mg/dL AST (14-36) U/L ALT (4-34) U/L Alkaline Phosphatase (38-126) U/L Total Protein (6.3-8.2) g/dL Albumin (3.5-5.0) g/dL Lipase (23-300) U/L Urine Color Urine Appearance (Clear) Urine pH (5.0-8.0) Ur Specific [place] (1.001-1.035) Urine Protein (Negative) Urine Glucose (UA) (Negative) Urine Ketones (Negative) Urine Blood (Negative) Urine Nitrite (Negative) Urine Bilirubin (Negative) Urine Urobilinogen (<2.0) mg/dL Ur Leukocyte Esterase (Negative) Urine WBC (0-5) /hpf Ur Squamous Epith Cells (0-4) /hpf Urine Bacteria (None) /hpf Urine Mucus (None) /hpf Urine HCG, Qual Not Detected (Not Detectd) Disposition Clinical Impression: Diarrhea, Abdominal cramping Disposition: HOME SELF-CARE Condition: Stable Instructions (If sedation given, give patient instructions): Acute Diarrhea (ED), Gastroenteritis (ED) Additional Instructions: Follow up with PCP tomorrow. Continue to drink lots of fluids. Return to ED with any worsening symptoms. Is patient prescribed a controlled substance at d/c from ED?: No Referrals: [facility] [Primary Care Provider] - 1-2 days
[2020-07-15 02:37] VITALS: BP 130/68; PULSE 78; RESP 18
== END 2020-07-15 02:37 | disposition home or self-care (01) ==
LOC: EC 00:42
DX: R19.7 Diarrhea, unspecified (principal); R11.0 Nausea; R10.9 Unspecified abdominal pain; J45.909 Unspecified asthma, uncomplicated; E11.9 Type 2 diabetes mellitus without complications; G40.909 Epilepsy, unspecified, not intractable, without status epilepticus; F41.9 Anxiety disorder, unspecified; F31.9 Bipolar disorder, unspecified; F20.9 Schizophrenia, unspecified; M10.9 Gout, unspecified; Z79.4 Long term (current) use of insulin; Z79.51 Long term (current) use of inhaled steroids; Z79.899 Other long term (current) drug therapy; Z88.0 Allergy status to penicillin; Z88.1 Allergy status to other antibiotic agents; Z88.8 Allergy status to other drugs, medicaments and biological substances; Z91.041 Radiographic dye allergy status; Z91.010 Allergy to peanuts; Z91.013 Allergy to seafood; Z90.49 Acquired absence of other specified parts of digestive tract; Z87.891 Personal history of nicotine dependence
CPT/HCPCS: 36415; 80053; 83690; 85025; 81001; 81025; 74018; 99284; 96374; 96361; J2765

== ENCOUNTER 2020-08-06 05:21 | Emergency (ER) | payer OTHER ==
[2020-08-06 05:38] VITALS: RESP 18; TEMP 98.2
[2020-08-06 06:12] LABS: Basophils # (A) 0.1 k/uL (0-0.2); Basophils % (A) 1 %; Eosinophils # (A) 0.9 k/uL (0-0.7); Eosinophils % (A) 6 %; HCT 40.2 % (34.0-46.0); Lymphocytes # (A) 3.8 k/uL (1.0-4.8); Lymphocytes % (A) 25 %; MCH 26.6 pg (25.0-35.0); MCHC 32.3 g/dL (31.0-37.0); MCV 82.4 fL (80.0-100.0); Mean Platelet Volume 6.7; Monocytes # (A) 0.7 k/uL (0-1.0); Monocytes % (A) 5 %; Neutrophils # (A) 9.9 k/uL (1.3-7.7); Neutrophils % (A) 64 %; Platelet Count 220 k/uL (150-450); RBC 4.88 m/uL (3.80-5.40); RDW 15.1 % (11.5-15.5); WBC 15.6 k/uL (3.8-10.6)
[2020-08-06 06:14] LABS: Appearance,Urine Cloudy (Clear); Bilirubin,Urine Negative (Negative); Blood,Urine Negative (Negative); Color,Urine Yellow; Glucose,Urine (UA) Negative (Negative); Ketones,Urine Negative (Negative); Leukocyte Esterase,Urine Moderate (Negative); Mucus,Urine Many /hpf; Nitrite,Urine Negative (Negative); Protein,Urine Trace (Negative); RBC,Urine 2 /hpf (0-5); Specific Gravity,Urine 1.033 (1.001-1.035); Squamous Epithelial Cell,Urine 19 /hpf (0-4); Urobilinogen,Urine <2.0 mg/dL (<2.0); WBC,Urine 4 /hpf (0-5)
[2020-08-06 06:24] LABS: C Reactive Protein 18.9 mg/L (<10.0); Calcium 9.1 mg/dL (8.4-10.2); Potassium 4.2 mmol/L (3.5-5.1)
--- NOTE | 2020-08-06 06:28 | ED ---
Abdominal Pain HPI - General Chief Complaint: Abdominal Pain Stated Complaint: Pain Time Seen by Provider: 08/06/20 05:53 Source: patient, RN notes reviewed Mode of arrival: ambulatory Limitations: no limitations - History of Present Illness Initial Comments: This a 40-year-old female presents emergency Department with multiple complaints. Patient states that she has worsening abdominal pain and right lower quadrant. Patient states that symptoms wax and wane she does have history of IBS with constipation. Patient states that she's been going on over the symptoms. She had decreased urine output but states she feels dehydrated. She states it is up-to-date. She reports chills but no fever. Patient states that she is also having worsening nasal congestion, facial pressure. She states that she has pressure cheeks, forehead. Patient has history of sinusitis. Patient states that this feels similar. She states that she's been drinking facial tingling from the denies any focal weakness no unilateral symptoms. Patient states she has no current headache only facial pressure. - Related Data Home Medications Medication Instructions Recorded Confirmed Fluticasone Nasal [place] [Flonase 1 spray EA NOSTRIL DAILY 12/16/18 04/12/20 Nasal [place]] Zonisamide [Zonegran] 300 mg PO BID 12/16/18 04/12/20 Baclofen 10 mg PO BID PRN 12/16/19 04/12/20 Budesonide [Pulmicort Flexhaler] 1 puff INHALATION RT-BID 12/16/19 04/12/20 Cholecalciferol [Vitamin D3 (25 5,000 unit PO DAILY 12/16/19 04/12/20 Mcg = 1000 Iu)] Insulin Lispro [Admelog] 20 units SQ BID 12/16/19 04/12/20 Montelukast [Singulair] 10 mg PO HS 12/16/19 04/12/20 Omeprazole 20 mg PO DAILY 12/16/19 04/12/20 allopurinoL [Zyloprim] 100 mg PO DAILY 12/16/19 04/12/20 Cyanocobalamin [Vitamin B-12 1,000 mcg IM DAILY 02/11/20 04/12/20 Injection] ARIPiprazole [Abilify] 10 mg PO DAILY 04/12/20 04/12/20 Aspirin EC [Ecotrin Low Dose] 81 mg PO DAILY 04/12/20 04/12/20 Bismuth Subsalicylate 524 mg PO Q8H PRN 04/12/20 04/12/20 [Pepto-Bismol] Naltrexone HCl [Revia] 50 mg PO DAILY 04/12/20 04/12/20 hydrOXYzine pamoate [Vistaril] 25 mg PO Q6HR 04/12/20 04/12/20 lamoTRIgine [LaMICtal] See Taper PO DAILY 04/12/20 04/12/20 traZODone HCL 50 mg PO HS 04/12/20 04/12/20 Previous Rx's Medication Instructions Recorded Acetaminophen Tab [Tylenol] 650 mg PO Q6HR PRN 30 Days tab 03/08/20 DULoxetine HCL [Cymbalta] 60 mg PO DAILY 30 Days capsule. 03/08/20 Docusate [Colace] 100 mg PO BID PRN 30 Days cap 03/08/20 Nystatin 100,000Unit/gm Cream 1 applic TOPICAL BID #1 applic 03/08/20 [Mycostatin Cream] fluPHENAZine decanoate [Prolixin 12.5 mg IM [id number] #1 vial 03/08/20 Decanoate] Ondansetron Odt [Zofran Odt] 4 mg PO Q8HR PRN #10 tab 07/09/20 Dicyclomine [Bentyl] 20 mg PO TID #30 tablet 08/06/20 Sulfamethox-Tmp 800-160Mg [Bactrim 1 each PO Q12HR #20 tab 08/06/20 Ds] Allergies Allergy/AdvReac Type Severity Reaction Status Date / Time Iodinated Contrast Media Allergy Anaphylaxis Verified 08/06/20 05:38 [Iodinated Contrast Media - IV Dye] peanut Allergy Anaphylaxis Verified 08/06/20 05:38 Penicillins Allergy Anaphylaxis Verified 08/06/20 05:38 shellfish derived Allergy Anaphylaxis Verified 08/06/20 05:38 cephalexin monohydrate AdvReac Nausea & Verified 08/06/20 05:38 [From Keflex] Vomiting & Diarrhea trazodone AdvReac bp Verified 08/06/20 05:38 issues/dissiness--patient takes at home Review of Systems ROS Statement: Those systems with pertinent positive or pertinent negative responses have been documented in the HPI. ROS Other: All systems not noted in ROS Statement are negative. Past Medical History Past Medical History: Asthma, Diabetes Mellitus, Seizure Disorder Additional Past Medical History / Comment(s): OVARIAN CYST, Schizophrenia, BIPOLAR, SCOLOSIS, chronic back pain, gout History of Any Multi-Drug Resistant Organisms: None Reported Past Surgical History: Cholecystectomy Additional Past Surgical History / Comment(s): LEFT OVARY, D&C Past Anesthesia/Blood Transfusion Reactions: No Reported Reaction Past Psychological History: Anxiety, Bipolar, Depression, Schizophrenia Smoking Status: Former smoker Past Alcohol Use History: None Reported Past Drug Use History: Cocaine, Marijuana, Prescription Drug Abuse - Past Family History Mother History Unknown: Yes Family Medical History: Cancer Additional Family Medical History / Comment(s): pt states is unaware of history General Exam Limitations: no limitations General appearance: alert, in no apparent distress Head exam: Present: atraumatic, normocephalic, normal inspection Eye exam: Present: normal appearance, PERRL, EOMI. Absent: scleral icterus, conjunctival injection, periorbital swelling ENT exam: Present: mucous membranes moist, TM's normal bilaterally, normal external ear exam. Absent: normal exam (sinus tenderness), normal oropharynx (Postnasal drainage) Neck exam: Present: normal inspection, full ROM. Absent: tenderness, meningismus, lymphadenopathy Respiratory exam: Present: normal lung sounds bilaterally. Absent: respiratory distress, wheezes, rales, rhonchi, stridor Cardiovascular Exam: Present: regular rate, normal rhythm, normal heart sounds. Absent: systolic murmur, diastolic murmur, rubs, gallop, clicks GI/Abdominal exam: Present: soft, tenderness (Mild/moderate right-sided abdominal tenderness), normal bowel sounds. Absent: distended, guarding, rebound, rigid Back exam: Absent: CVA tenderness (R), CVA tenderness (L) Neurological exam: Present: alert, oriented X3 Skin exam: Present: warm, dry, intact, normal color. Absent: rash Course Vital Signs 08/06/20 05:29 Temperature 98.2 F Pulse Rate 67 Respiratory 18 Rate Blood Pressure 134/65 O2 Sat by Pulse 96 Oximetry Medical Decision Making - Medical Decision Making 40-YEAR-OLD PRESENTED FOR MULTIPLE COMPLAINTS. PATIENT HAS ACUTE SINUSITIS WHICH HAS BEEN GOING ON FOR SEVERAL WEEKS PATIENT WAS TREATED WITH ANTIBIOTICS AT THIS POINT. PATIENT HAS NO NEUROLOGICAL DEFICITS NO FOCAL WEAKNESS. PATIENT STATES THAT HAVING abdominal issues which she's been worsening CT is negative. Patient has underlying IBS most likely cause for this at this time. - Lab Data Result diagrams: 08/06/20 05:59 08/06/20 05:59 Lab Results 08/06/20 08/06/20 08/06/20 Range/Units 05:59 05:59 05:59 WBC 15.6 H (3.8-10.6) k/uL RBC 4.88 (3.80-5.40) m/uL Hgb 13.0 (11.4-16.0) gm/dL Hct 40.2 (34.0-46.0) % MCV 82.4 (80.0-100.0) fL MCH 26.6 (25.0-35.0) pg MCHC 32.3 (31.0-37.0) g/dL RDW 15.1 (11.5-15.5) % Plt Count 220 (150-450) k/uL MPV 6.7 Neutrophils % 64 % Lymphocytes % 25 % Monocytes % 5 % Eosinophils % 6 % Basophils % 1 % Neutrophils # 9.9 H (1.3-7.7) k/uL Lymphocytes # 3.8 (1.0-4.8) k/uL Monocytes # 0.7 (0-1.0) k/uL Eosinophils # 0.9 H (0-0.7) k/uL Basophils # 0.1 (0-0.2) k/uL Sodium (137-145) mmol/L Potassium (3.5-5.1) mmol/L Chloride (98-107) mmol/L Carbon Dioxide (22-30) mmol/L Anion Gap mmol/L BUN (7-17) mg/dL Creatinine (0.52-1.04) mg/dL Est GFR (CKD-EPI)AfAm (>60 ml/min/1.73 sqM) Est GFR (CKD-EPI)NonAf (>60 ml/min/1.73 sqM) Glucose (74-99) mg/dL Calcium (8.4-10.2) mg/dL C-Reactive Protein (<10.0) mg/L Urine Color Yellow Urine Appearance Cloudy H (Clear) Urine pH 6.0 (5.0-8.0) Ur Specific [place] 1.033 (1.001-1.035) Urine Protein Trace H (Negative) Urine Glucose (UA) Negative (Negative) Urine Ketones Negative (Negative) Urine Blood Negative (Negative) Urine Nitrite Negative (Negative) Urine Bilirubin Negative (Negative) Urine Urobilinogen <2.0 (<2.0) mg/dL Ur Leukocyte Esterase Moderate H (Negative) Urine RBC 2 (0-5) /hpf Urine WBC 4 (0-5) /hpf Ur Squamous Epith Cells 19 H (0-4) /hpf Urine Mucus Many H (None) /hpf Urine HCG, Qual Not Detected (Not Detectd) 08/06/20 Range/Units 05:59 WBC (3.8-10.6) k/uL RBC (3.80-5.40) m/uL Hgb (11.4-16.0) gm/dL Hct (34.0-46.0) % MCV (80.0-100.0) fL MCH (25.0-35.0) pg MCHC (31.0-37.0) g/dL RDW (11.5-15.5) % Plt Count (150-450) k/uL MPV Neutrophils % % Lymphocytes % % Monocytes % % Eosinophils % % Basophils % % Neutrophils # (1.3-7.7) k/uL Lymphocytes # (1.0-4.8) k/uL Monocytes # (0-1.0) k/uL Eosinophils # (0-0.7) k/uL Basophils # (0-0.2) k/uL Sodium 139 (137-145) mmol/L Potassium 4.2 (3.5-5.1) mmol/L Chloride 108 H (98-107) mmol/L Carbon Dioxide 26 (22-30) mmol/L Anion Gap 5 mmol/L BUN 15 (7-17) mg/dL Creatinine 0.96 (0.52-1.04) mg/dL Est GFR (CKD-EPI)AfAm 85 (>60 ml/min/1.73 sqM) Est GFR (CKD-EPI)NonAf 74 (>60 ml/min/1.73 sqM) Glucose 106 H (74-99) mg/dL Calcium 9.1 (8.4-10.2) mg/dL C-Reactive Protein 18.9 H (<10.0) mg/L Urine Color Urine Appearance (Clear) Urine pH (5.0-8.0) Ur Specific [place] (1.001-1.035) Urine Protein (Negative) Urine Glucose (UA) (Negative) Urine Ketones (Negative) Urine Blood (Negative) Urine Nitrite (Negative) Urine Bilirubin (Negative) Urine Urobilinogen (<2.0) mg/dL Ur Leukocyte Esterase (Negative) Urine RBC (0-5) /hpf Urine WBC (0-5) /hpf Ur Squamous Epith Cells (0-4) /hpf Urine Mucus (None) /hpf Urine HCG, Qual (Not Detectd) Disposition Clinical Impression: Acute sinusitis, IBS (irritable bowel syndrome), Abdominal pain Disposition: HOME SELF-CARE Condition: Stable Instructions (If sedation given, give patient instructions): Abdominal Pain (ED) Additional Instructions: Please return to the Emergency Department if symptoms worsen or any other concerns. Prescriptions: Sulfamethox-Tmp 800-160Mg [Bactrim Ds] 1 each PO Q12HR #20 tab Dicyclomine [Bentyl] 20 mg PO TID #30 tablet Is patient prescribed a controlled substance at d/c from ED?: No Referrals: [facility] [Primary Care Provider] - 1-2 days Time of Disposition: 07:11
--- NOTE | 2020-08-06 07:03 | CT ---
EXAMINATION TYPE: CT abdomen pelvis wo con DATE OF EXAM: 08/06/2020 HISTORY: Abdominal pain. History of cholecystectomy with right upper quadrant pain for [address] DLP: 1757 mGycm. Automated Exposure Control for Dose Reduction was Utilized. TECHNIQUE: CT scan of the abdomen and pelvis is performed without oral or IV contrast. COMPARISON: CT abdomen and pelvis December 02, 2019 FINDINGS: Within the limitations of a non-contrast study, the following observations are made. LUNG BASES: No significant abnormality is appreciated. LIVER/GB: Visualized liver is diffusely low dense relative to spleen consistent with diffuse fatty in filtration. Stable mild hepatomegaly. Cholecystectomy clips are redemonstrated. PANCREAS: No significant abnormality is seen. SPLEEN: No significant abnormality is seen. ADRENALS: No significant abnormality is seen. KIDNEYS: There is 1.7 cm simple appearing thin-walled cyst left kidney laterally upper to midpole lev el redemonstrated. There is deformity medial upper pole left kidney redemonstrated with 4 mm calcific focus. No hydronephrosis or new renal calculi bilaterally. BOWEL: Normal-appearing appendix from low-lying cecum into the right pelvis. No suspicious small or l arge bowel dilatation. GENITAL ORGANS: Anteverted uterus redemonstrated. Tubal ligation clips along right aspect of uterus a gain seen. LYMPH NODES: No new greater than 1cm abdominal or pelvic lymph nodes are appreciated. OSSEOUS STRUCTURES: Mild/moderate multilevel disc space narrowing and vacuum disc phenomenon L3-L4 th rough the L5-S1 levels. OTHER: Overlying vertical scar in the lower abdomen midline and horizontal scar in the anterior pelvi s. Surgical clips in the origin of right common iliac artery redemonstrated. IMPRESSION: No suspicious new or acute findings identified.
[2020-08-06 08:21] VITALS: BP 132/68; PULSE 62
== END 2020-08-06 08:11 | disposition home or self-care (01) ==
LOC: EC 05:21
DX: K58.9 Irritable bowel syndrome, unspecified (principal); J01.90 Acute sinusitis, unspecified; J45.909 Unspecified asthma, uncomplicated; E11.9 Type 2 diabetes mellitus without complications; G40.909 Epilepsy, unspecified, not intractable, without status epilepticus; F41.9 Anxiety disorder, unspecified; F31.9 Bipolar disorder, unspecified; Z79.4 Long term (current) use of insulin; Z79.82 Long term (current) use of aspirin; Z79.899 Other long term (current) drug therapy; Z79.51 Long term (current) use of inhaled steroids; Z91.048 Other nonmedicinal substance allergy status; Z91.010 Allergy to peanuts; Z88.0 Allergy status to penicillin; Z88.1 Allergy status to other antibiotic agents; Z91.013 Allergy to seafood; Z88.8 Allergy status to other drugs, medicaments and biological substances; Z87.891 Personal history of nicotine dependence
CPT/HCPCS: 36415; 74176; 80048; 81001; 81025; 85025; 86140; 99284

== ENCOUNTER 2020-09-04 07:09 | Observation (INO) | payer OTHER ==
[2020-09-04] MEDS ORDERED: NITROGLYCERIN SL TABS 0.4 MG TAB SUBLINGUAL STA (07:38)
--- NOTE | 2020-09-04 07:43 | ED ---
General Adult HPI - General Chief complaint: Chest Pain Stated complaint: Chest Pain Time Seen by Provider: 09/04/20 07:25 Source: patient Mode of arrival: wheelchair Limitations: no limitations - History of Present Illness Initial comments: Dictation was produced using [employer] dictation software. please excuse any grammatical, word or spelling errors. This patient was cared for during a federal and state declared state of emergency secondary to Covid 19 Chief Complaint: 40-year-old male presents with chief complaint of chest pain History of Present Illness: 40-year-old female she has past medical history of illicit drug abuse, heart failure, schizophrenia, bipolar seizures diabetes and asthma presents to the emergency department for chest pain 1 week. Patient states that the pain is to her left inferolateral anterior chest. He states that her pain has been progressively worsening. States that it's like a stabbing pressure that is constant for several minutes. Patient states the pain does radiate down her arm on some occasions. She does report some mild shortness of breath. Patient denies any associated diaphoresis or nausea. Denies any fever, chills or night sweats. No coughing. Patient states she has history of coronary artery disease. The ROS documented in this emergency department record has been reviewed and confirmed by me. Those systems with pertinent positive or negative responses have been documented in the HPI. All other systems are other negative and/or noncontributory. PHYSICAL EXAM: General Impression: Alert and oriented x3, not in acute distress HEENT: Normocephalic atraumatic, extra-ocular movements intact, pupils equal and reactive to light bilaterally, mucous membranes moist. Cardiovascular: Heart regular rate and rhythm Chest: Able to complete full sentences, no retractions, no tachypnea Abdomen: abdomen soft, non-tender, non-distended, no organomegaly Musculoskeletal: Pulses present and equal in all extremities, no peripheral edema Motor: no focal deficits noted Neurological: CN II-XII grossly intact, no focal motor or sensory deficits noted Skin: Intact with no visualized rashes Psych: Normal affect and mood ED course: 40-year-old female clinical presentation presents to emergency department with atypical chest pain with typical features. All signs upon arri priti are within acceptable limits. Chart review was performed. Patient was seen for atypical chest pain in January of last year. She had negative serial troponins and was discharged. Laboratory evaluation obtained. CBC, coag panel is unremarkable. D-dimer is negative. Metabolic panel is negative. Chest x-ray shows possible early volume overload. Patient has a history of heart failure she's not in any respiratory distress she is reevaluated at bedside 10:45 AM in stable medical condition. Joseph zapien given aspirin. She'll be admitted to observation for serial troponins. Case discussed with Dr. Tanner who is willing to accept patients care. EKG interpretation: Ventricular rate 59, right bundle branch block, bradycardia, AZ interval 170, QRS 156, QTC 467. No AZ prolongation, no QTC prolongation, no ST or T-wave changes noted. EKG compared to to 05/12/2020 showing no changes. Overall, this EKG is unremarkable - Related Data Home Medications Medication Instructions Recorded Confirmed Fluticasone Nasal [place] [Flonase 1 spray EA NOSTRIL DAILY 12/16/18 09/04/20 Nasal [place]] Zonisamide [Zonegran] 300 mg PO BID 12/16/18 09/04/20 Budesonide [Pulmicort Flexhaler] 1 puff INHALATION RT-BID 12/16/19 09/04/20 Cholecalciferol [Vitamin D3 (25 5,000 unit PO DAILY 12/16/19 09/04/20 Mcg = 1000 Iu)] Montelukast [Singulair] 10 mg PO HS 12/16/19 09/04/20 Omeprazole 20 mg PO DAILY 12/16/19 09/04/20 allopurinoL [Zyloprim] 100 mg PO DAILY 12/16/19 09/04/20 ARIPiprazole [Abilify] 10 mg PO HS 04/12/20 09/04/20 Aspirin EC [Ecotrin Low Dose] 81 mg PO DAILY 04/12/20 09/04/20 Naltrexone HCl [Revia] 50 mg PO DAILY 04/12/20 09/04/20 hydrOXYzine pamoate [Vistaril] 25 mg PO Q6HR 04/12/20 09/04/20 ARIPiprazole [Abilify Maintena] 400 mg IM Q28D 09/04/20 09/04/20 Benztropine Mesylate [Cogentin] 2 mg PO BID PRN 09/04/20 09/04/20 INSULIN LISPRO (humaLOG) [humaLOG] 20 units SQ AC-BID 09/04/20 09/04/20 Ibuprofen [Motrin] 400 mg PO BID PRN 09/04/20 09/04/20 Polyethylene Glycol 3350 [Miralax] 17 gm PO DAILY PRN 09/04/20 09/04/20 calcium polycarbophiL [Fibercon] 1,250 mg PO BID PRN 09/04/20 09/04/20 lamoTRIgine [LaMICtal] 200 mg PO DAILY 09/04/20 09/04/20 traZODone HCL [Desyrel] 100 mg PO HS PRN 09/04/20 09/04/20 Previous Rx's Medication Instructions Recorded DULoxetine HCL [Cymbalta] 60 mg PO DAILY 30 Days capsule. 03/08/20 Docusate [Colace] 100 mg PO BID PRN 30 Days cap 03/08/20 Allergies Allergy/AdvReac Type Severity Reaction Status Date / Time Iodinated Contrast Media Allergy Anaphylaxis Verified 09/04/20 09:17 [Iodinated Contrast Media - IV Dye] peanut Allergy Anaphylaxis Verified 09/04/20 09:17 Penicillins Allergy Anaphylaxis Verified 09/04/20 09:17 shellfish derived Allergy Anaphylaxis Verified 09/04/20 09:17 cephalexin monohydrate AdvReac Nausea & Verified 09/04/20 09:17 [From Keflex] Vomiting & Diarrhea trazodone AdvReac bp Verified 09/04/20 09:17 issues/dissiness--patient takes at home Review of Systems ROS Statement: Those systems with pertinent positive or pertinent negative responses have been documented in the HPI. ROS Other: All systems not noted in ROS Statement are negative. Past Medical History Past Medical History: Asthma, Diabetes Mellitus, Seizure Disorder Additional Past Medical History / Comment(s): OVARIAN CYST, Schizophrenia, BIPOLAR, SCOLOSIS, chronic back pain, gout History of Any Multi-Drug Resistant Organisms: None Reported Past Surgical History: Cholecystectomy Additional Past Surgical History / Comment(s): LEFT OVARY, D&C Past Anesthesia/Blood Transfusion Reactions: No Reported Reaction Past Psychological History: Anxiety, Bipolar, Depression, Schizophrenia Smoking Status: Former smoker Past Alcohol Use History: None Reported Past Drug Use History: Cocaine, Marijuana, Prescription Drug Abuse - Past Family History Mother History Unknown: Yes Family Medical History: Cancer Additional Family Medical History / Comment(s): pt states is unaware of history General Exam Limitations: no limitations Course Vital Signs 09/04/20 09/04/20 07:17 08:20 Temperature 97.9 F Pulse Rate 67 68 Respiratory 16 18 Rate Blood Pressure 113/70 116/57 O2 Sat by Pulse 96 95 Oximetry Medical Decision Making - Lab Data Result diagrams: 09/04/20 09:18 09/04/20 09:18 Lab Results 09/04/20 09/04/20 09/04/20 Range/Units 09:18 09:18 09:18 WBC 13.1 H (3.8-10.6) k/uL RBC 5.40 (3.80-5.40) m/uL Hgb 13.5 (11.4-16.0) gm/dL Hct 46.1 H (34.0-46.0) % MCV 85.3 (80.0-100.0) fL MCH 25.0 (25.0-35.0) pg MCHC 29.3 L (31.0-37.0) g/dL RDW 16.3 H (11.5-15.5) % Plt Count 218 (150-450) k/uL MPV 6.8 Neutrophils % 71 % Lymphocytes % 19 % Monocytes % 4 % Eosinophils % 4 % Basophils % 1 % Neutrophils # 9.3 H (1.3-7.7) k/uL Lymphocytes # 2.4 (1.0-4.8) k/uL Monocytes # 0.6 (0-1.0) k/uL Eosinophils # 0.6 (0-0.7) k/uL Basophils # 0.1 (0-0.2) k/uL Hypochromasia Slight Anisocytosis Slight PT 10.1 (9.0-12.0) sec INR 0.9 (<1.2) APTT 24.4 (22.0-30.0) sec D-Dimer 0.40 (<0.60) mg/L FEU Sodium 139 (137-145) mmol/L Potassium 4.1 (3.5-5.1) mmol/L Chloride 104 (98-107) mmol/L Carbon Dioxide 25 (22-30) mmol/L Anion Gap 10 mmol/L BUN 14 (7-17) mg/dL Creatinine 0.88 (0.52-1.04) mg/dL Est GFR (CKD-EPI)AfAm >90 (>60 ml/min/1.73 sqM) Est GFR (CKD-EPI)NonAf 82 (>60 ml/min/1.73 sqM) Glucose 105 H (74-99) mg/dL Calcium 9.2 (8.4-10.2) mg/dL Magnesium 2.0 (1.6-2.3) mg/dL Total Bilirubin 0.5 (0.2-1.3) mg/dL AST 23 (14-36) U/L ALT 20 (4-34) U/L Alkaline Phosphatase 116 (38-126) U/L Troponin I (0.000-0.034) ng/mL Total Protein 7.8 (6.3-8.2) g/dL Albumin 4.4 (3.5-5.0) g/dL 09/04/20 Range/Units 09:18 WBC (3.8-10.6) k/uL RBC (3.80-5.40) m/uL Hgb (11.4-16.0) gm/dL Hct (34.0-46.0) % MCV (80.0-100.0) fL MCH (25.0-35.0) pg MCHC (31.0-37.0) g/dL RDW (11.5-15.5) % Plt Count (150-450) k/uL MPV Neutrophils % % Lymphocytes % % Monocytes % % Eosinophils % % Basophils % % Neutrophils # (1.3-7.7) k/uL Lymphocytes # (1.0-4.8) k/uL Monocytes # (0-1.0) k/uL Eosinophils # (0-0.7) k/uL Basophils # (0-0.2) k/uL Hypochromasia Anisocytosis PT (9.0-12.0) sec INR (<1.2) APTT (22.0-30.0) sec D-Dimer (<0.60) mg/L FEU Sodium (137-145) mmol/L Potassium (3.5-5.1) mmol/L Chloride (98-107) mmol/L Carbon Dioxide (22-30) mmol/L Anion Gap mmol/L BUN (7-17) mg/dL Creatinine (0.52-1.04) mg/dL Est GFR (CKD-EPI)AfAm (>60 ml/min/1.73 sqM) Est GFR (CKD-EPI)NonAf (>60 ml/min/1.73 sqM) Glucose (74-99) mg/dL Calcium (8.4-10.2) mg/dL Magnesium (1.6-2.3) mg/dL Total Bilirubin (0.2-1.3) mg/dL AST (14-36) U/L ALT (4-34) U/L Alkaline Phosphatase (38-126) U/L Troponin I <0.012 (0.000-0.034) ng/mL Total Protein (6.3-8.2) g/dL Albumin (3.5-5.0) g/dL Disposition Clinical Impression: Chest pain Disposition: ADMITTED IP TO THIS HOSP Condition: Fair Referrals: [facility] [Primary Care Provider] - 1-2 days Decision Time: 10:49
--- NOTE | 2020-09-04 09:03 | XR ---
EXAMINATION TYPE: XR chest 2V DATE OF EXAM: 09/04/2020 COMPARISON: 07/09/2020 INDICATION: Chest pain asthma COPD TECHNIQUE: Frontal and lateral views of the chest are obtained. FINDINGS: The heart size is normal. The pulmonary vasculature is somewhat prominent. The lungs are clear. IMPRESSION: 1. Cortical consideration for early volume overload is recommended.
[2020-09-04 09:51] LABS: Anisocytosis Slight; Basophils # (A) 0.1 k/uL (0-0.2); Basophils % (A) 1 %; Eosinophils # (A) 0.6 k/uL (0-0.7); Eosinophils % (A) 4 %; HCT 46.1 % (34.0-46.0); HGB 13.5 gm/dL (11.4-16.0); Hypochromasia Slight; Lymphocytes # (A) 2.4 k/uL (1.0-4.8); Lymphocytes % (A) 19 %; MCHC 29.3 g/dL (31.0-37.0); MCV 85.3 fL (80.0-100.0); Mean Platelet Volume 6.8; Monocytes # (A) 0.6 k/uL (0-1.0); Monocytes % (A) 4 %; Neutrophils # (A) 9.3 k/uL (1.3-7.7); Neutrophils % (A) 71 %; Platelet Count 218 k/uL (150-450); RDW 16.3 % (11.5-15.5); WBC 13.1 k/uL (3.8-10.6)
[2020-09-04 10:01] LABS: ALT 20 U/L (4-34); AST 23 U/L (14-36); African American GFR (CKD) >90 (>60 ml/min/1.73 sqM); Albumin 4.4 g/dL (3.5-5.0); Alkaline Phosphatase 116 U/L (38-126); Anion Gap 10 mmol/L; Blood Urea Nitrogen 14 mg/dL (7-17); Calcium 9.2 mg/dL (8.4-10.2); Carbon Dioxide 25 mmol/L (22-30); Chloride 104 mmol/L (98-107); Glucose 105 mg/dL (74-99); Non-African American GFR(CKD) 82 (>60 ml/min/1.73 sqM); Potassium 4.1 mmol/L (3.5-5.1); Sodium 139 mmol/L (137-145); Total Bilirubin 0.5 mg/dL (0.2-1.3); Total Protein 7.8 g/dL (6.3-8.2)
[2020-09-04 10:14] LABS: D-Dimer 0.4 mg/L FEU (<0.60); INR 0.9 (<1.2); Partial Thromboplastin Time 24.4 sec (22.0-30.0); Prothrombin Time 10.1 sec (9.0-12.0)
[2020-09-04] MEDS ORDERED: ASPIRIN 81 MG PO STA (10:46)
[2020-09-04] MEDS ORDERED: NITROGLYCERIN SL TABS 0.4 MG TAB SUBLINGUAL PRN (10:46)
[2020-09-04 12:06] LABS: Glucose,Whole Blood 92 mg/dL (75-99)
[2020-09-04 14:00] VITALS: RESP 16
[2020-09-04] MEDS ORDERED: DOCUSATE 100 MG CAP PO PRN (14:14)
[2020-09-04] MEDS ORDERED: BENZTROPINE MESYLATE 1 MG TAB PO PRN (14:14)
[2020-09-04] MEDS ORDERED: traZODone HCL 100 MG TAB PO PRN (14:14)
[2020-09-04] MEDS ORDERED: polyethylene glycoL 3350 17 GM POWD.PACK PO PRN (14:14)
[2020-09-04 16:24] LABS: Glucose,Whole Blood 94 mg/dL (75-99)
[2020-09-04] MEDS: INSULIN ASPART (NovoLOG) 100 UNIT/ML VIAL SQ SCH ×3 (16:58→19:43)
--- NOTE | 2020-09-04 17:02 | P.HPIM ---
History of Present Illness H&P Date: 09/04/20 This is a 40-year-old female patient of [facility] with past medical history significant for diabetes mellitus, seizure disorder, schizophrenia, bipolar, COPD, hypertension, and illicit drug use. Patient is currently staying at the [facility] reports she is almost 4 months clean from crack cocaine and currently has a public guardian. She presented to the emergency room today with complaints of chest pain described as an elephant sitting on her chest radiating to the neck back and right arm, symptoms lasted for about 5 minutes. On exam she reports of atypical chest pain 5 out of 10 midline which increases with touch and deep breathing. She was admitted in January 2020 for similar co mplaints of chest pain workup was negative at that time. 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 Denies any shortness of breath, diaphoresis, palpitations, nausea or vomiting. EKG revealed sinus bradycardia right bundle branch block and left AV block. Chest x-ray correlate for early volume overload. Echocardiogram from December 2019 revealed preserved LV systolic function with ejection fraction 55-60%. Troponins have been negative 3. Will admit patient for cardiac observation and cardiology consult is ordered. Review of Systems At the time of my exam: CONSTITUTIONAL: Denies fever or chills. CARDIOVASCULAR: Denies shortness of breath, orthopnea, PND or palpitations. Chest pain 5 out of 10 mid sternal increases with deep breathing and touch. RESPIRATORY: Denies cough. GASTROINTESTINAL: Denies abdominal pain, diarrhea, constipation, nausea or vomiting. MUSCULOSKELETAL: Denies myalgias. NEUROLOGIC: Denies numbness, tingling or weakness. ENDOCRINE: Denies fatigue, weight change, polydipsia or polyurina. GENITOURINARY: Denies burning, hematuria or urgency with micturation. HEMATOLOGIC: Denies history of anemia or bleeding. Past Medical History Past Medical History: Asthma, Heart Failure, COPD, Fibromyalgia, GERD/Reflux, GI Bleed, Hypertension, Liver Disease, Osteoarthritis (OA), Pneumonia, Seizure Disorder, Skin Disorder Additional Past Medical History / Comment(s): Bronchitis, gestational diabetes, seizures with last one 09/03/20, sickle cell trait, liver cirrhosis, anemia, chrons, IBS, ulcerative colitis, lowr GI bleed, hemorrhoids, constipation, psoriasis, migraines, chronic low back and cervical pain, scoliosis, arhtritis in multiple joints, gout bilateral feet. History of Any Multi-Drug Resistant Organisms: None Reported Past Surgical History: Cholecystectomy, Orthopedic Surgery Additional Past Surgical History / Comment(s): L oophorectomy d/t cyst, D&C, colonoscopy, L carpal tunnel release. Past Anesthesia/Blood Transfusion Reactions: Motion Sickness, Postoperative Nausea & Vomiting (PONV) Smoking Status: Former smoker - Past Family History Mother History Unknown: Yes Family Medical History: Cancer Additional Family Medical History / Comment(s): Mother had breast cancer and metnal illness She is living. Father Family Medical History: Cancer Additional Family Medical History / Comment(s): Father is . He had agent orange exposure. He had liver cancer, bowel to brain cancer. Medications and Allergies Home Medications Medication Instructions Recorded Confirmed Type Fluticasone Nasal [place] [Flonase 1 spray EA NOSTRIL DAILY 12/16/18 09/04/20 History Nasal [place]] Zonisamide [Zonegran] 300 mg PO BID 12/16/18 09/04/20 History Budesonide [Pulmicort Flexhaler] 1 puff INHALATION RT-BID 12/16/19 09/04/20 History Cholecalciferol [Vitamin D3 (25 5,000 unit PO DAILY 12/16/19 09/04/20 History Mcg = 1000 Iu)] Montelukast [Singulair] 10 mg PO HS 12/16/19 09/04/20 History Omeprazole 20 mg PO DAILY 12/16/19 09/04/20 History allopurinoL [Zyloprim] 100 mg PO DAILY 12/16/19 09/04/20 History DULoxetine HCL [Cymbalta] 60 mg PO DAILY 30 Days capsule.dr 03/08/20 09/04/20 Rx Docusate [Colace] 100 mg PO BID PRN 30 Days cap 03/08/20 09/04/20 Rx ARIPiprazole [Abilify] 10 mg PO HS 04/12/20 09/04/20 History Aspirin EC [Ecotrin Low Dose] 81 mg PO DAILY 04/12/20 09/04/20 History Naltrexone HCl [Revia] 50 mg PO DAILY 04/12/20 09/04/20 History hydrOXYzine pamoate [Vistaril] 25 mg PO Q6HR 04/12/20 09/04/20 History ARIPiprazole [Abilify Maintena] 400 mg IM Q28D 09/04/20 09/04/20 History Benztropine Mesylate [Cogentin] 2 mg PO BID PRN 09/04/20 09/04/20 History INSULIN LISPRO (humaLOG) [humaLOG] 20 units SQ AC-BID 09/04/20 09/04/20 History Ibuprofen [Motrin] 400 mg PO BID PRN 09/04/20 09/04/20 History Polyethylene Glycol 3350 [Miralax] 17 gm PO DAILY PRN 09/04/20 09/04/20 History calcium polycarbophiL [Fibercon] 1,250 mg PO BID PRN 09/04/20 09/04/20 History lamoTRIgine [LaMICtal] 200 mg PO DAILY 09/04/20 09/04/20 History traZODone HCL [Desyrel] 100 mg PO HS PRN 09/04/20 09/04/20 History Allergies Allergy/AdvReac Type Severity Reaction Status Date / Time Iodinated Contrast Media Allergy Anaphylaxis Verified 09/04/20 09:17 [Iodinated Contrast Media - IV Dye] peanut Allergy Anaphylaxis Verified 09/04/20 09:17 Penicillins Allergy Anaphylaxis Verified 09/04/20 09:17 shellfish derived Allergy Anaphylaxis Verified 09/04/20 09:17 cephalexin monohydrate AdvReac Nausea & Verified 09/04/20 09:17 [From Keflex] Vomiting & Diarrhea trazodone AdvReac bp Verified 09/04/20 09:17 issues/dissiness--patient takes at home Physical Exam Vitals: Vital Signs Temp Pulse Pulse Resp BP BP Pulse Ox 09/04/20 13:59 98 F 62 16 118/71 97 09/04/20 11:37 97.9 F 63 18 125/58 95 09/04/20 11:00 63 18 125/58 95 09/04/20 10:00 18 09/04/20 08:20 68 18 116/57 95 09/04/20 07:17 97.9 F 67 16 113/70 96 Intake and Output 09/04/20 09/04/20 09/04/20 06:59 14:59 22:59 Other: # Voids 2 Weight 122.47 kg CONSTITUTIONAL: No apparent distress. HEENT: Head is normocephalic. Pupils are equal, round. Sclerae anicteric. Mucous membranes of the mouth are moist. No JVD. No carotid bruit. CHEST EXAMINATION: Lungs are clear to auscultation. Mild chest wall tenderness is noted on palpation or with deep breathing. HEART EXAMINATION: Regular rate and rhythm. S1, S2 heard. No murmurs, gallops or rub. ABDOMEN: Soft, nontender. Positive bowel sounds. EXTREMITIES: 2+ peripheral pulses, no lower extremity edema and no calf tenderness. NEUROLOGIC EXAMINATION: Patient is awake, alert and oriented x3. Results CBC & Chem 7: 09/04/20 09:18 09/04/20 09:18 Labs: Abnormal Lab Results - Last 24 Hours (Table) 09/04/20 09/04/20 Range/Units 09:18 09:18 WBC 13.1 H (3.8-10.6) k/uL Hct 46.1 H (34.0-46.0) % MCHC 29.3 L (31.0-37.0) g/dL RDW 16.3 H (11.5-15.5) % Neutrophils # 9.3 H (1.3-7.7) k/uL Glucose 105 H (74-99) mg/dL Thrombosis Risk Factor Assmnt - DVT/VTE Prophylaxis DVT/VTE Prophylaxis: Low risk, early ambulation encouraged - Choose All That Apply Any of the Below Risk Factors Present?: Yes Each Factor Represents 1 point: Abnormal pulmonary function (COPD), Age 41-60 ye ars, Obesity (BMI >25) Other Risk Factors: No Other congenital or acquired thrombophilia - If yes, enter type in comment: No Thrombosis Risk Factor Assessment Total Risk Factor Score: 3 Thrombosis Risk Factor Assessment Level: Moderate Risk Assessment and Plan Assessment: 1. Chest pain, atypical in nature. EKG was done, troponins negative 3. Admitted for cardiac observation with cardiology consult in place. Nitro sublingual when necessary. 2. Diabetes mellitus on Accu-Cheks before meals and at bedtime along with NovoLog 20 units before meals twice a day 3. Schizophrenia, patient has public guardian follows with [facility] clinic. On Abilify injection along with 10 mg daily, 4. Bipolar disorder on Lamictal 200 mg daily, duloxetine 60 mg daily 5. History of Seizure disorder, on Zonisamide 300mg BID 6. History of illicit drug use, currently in remission at a recovery house 7. insomnia, on trazodone 100 mg at at bedtime 8. GI Prophylaxis on Protonix 9. DVT prophylaxis, early ambulation 10. History of asthma on Singulair at bed Patient will be admitted to cardiac observation Discharge plan: Likely back to recovery house Impression and plan of care have been directed as dictated by the signing physician. Rosita Gallegos nurse practitioner acting as scribe for signing physician.
[2020-09-04] MEDS: hydrOXYzine pamoate 25 MG CAP PO SCH ×2 (17:09→19:50)
[2020-09-04 19:43] LABS: Glucose,Whole Blood 115 mg/dL (75-99)
[2020-09-04] MEDS: ZONISAMIDE 100 MG CAP PO SCH (19:45)
[2020-09-04] MEDS: FLUTICASONE 110 MCG INHALER INHALATION SCH (19:55)
[2020-09-04] MEDS ORDERED: ARIPiprazole 10 MG TAB PO SCH (21:00)
[2020-09-04] MEDS ORDERED: MONTELUKAST 10 MG TAB PO SCH (21:00)
[2020-09-05] MEDS: hydrOXYzine pamoate 25 MG CAP PO SCH (05:27)
[2020-09-05 08:19] VITALS: BP 131/71; PULSE 57; TEMP 97.9
[2020-09-05] MEDS: FLUTICASONE 110 MCG INHALER INHALATION SCH (08:27)
[2020-09-05] MEDS: INSULIN ASPART (NovoLOG) 100 UNIT/ML VIAL SQ SCH ×2 (08:38→08:39)
[2020-09-05] MEDS ORDERED: FLUTICASONE 50MCG/SPRAY NASAL 16GM EA NOSTRIL SCH (09:00)
[2020-09-05] MEDS ORDERED: NON FORMULARY DRUG (Aspirin Ec 81 MG Tablet.Dr) PO SCH (09:00)
[2020-09-05] MEDS ORDERED: allopurinoL 100 MG TAB PO SCH (09:00)
[2020-09-05] MEDS ORDERED: ASPIRIN 325 MG TAB PO SCH (09:00)
[2020-09-05] MEDS ORDERED: NALTREXONE HCL 50 MG TAB PO SCH (09:00)
[2020-09-05] MEDS ORDERED: DULoxetine HCL 60 MG CAPSULE.DR PO SCH (09:00)
[2020-09-05] MEDS ORDERED: lamoTRIgine 100 MG TAB PO SCH (09:00)
[2020-09-05] MEDS ORDERED: CHOLECALCIFEROL 25 MCG (1000 IU) TABLET PO SCH (09:00)
[2020-09-05] MEDS ORDERED: ASPIRIN 81 MG PO SCH (09:00)
[2020-09-05] MEDS ORDERED: PANTOPRAZOLE 40 MG TABLET PO SCH (09:00)
[2020-09-05] MEDS: ZONISAMIDE 100 MG CAP PO SCH (09:07)
--- NOTE | 2020-09-05 09:29 | P.DS ---
Providers Date of admission: 09/04/20 10:46 Expected date of discharge: 09/05/20 Attending physician: Maximiliano Tanner Consults: 09/04/20 15:58 Consult Physician Routine Consulting Provider: Jayla Stack Consult Reason/Comments: Chest Pain Do you want consulting provider notified?: Yes Primary care physician: [facility] Hospital Course: This is a 40-year-old female patient of [facility] with past medical history significant for diabetes mellitus, seizure disorder, schizophrenia, bipolar, COPD, hypertension, and illicit drug use. Patient is currently staying at the [facility] [place] reports she is almost 4 months clean from crack cocaine and currently has a public guardian. She presented to the emergency room today with complaints of chest pain described as an elephant sitting on her chest radiating to the neck back and right arm, symptoms lasted for about 5 minutes. On exam she reports of atypical chest pain 5 out of 10 midline which increases with touch and deep breathing. She was admitted in January 2020 for similar complaints of chest pain workup was negative at that time. 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 Denies any shortness of breath, diaphoresis, palpitations, nausea or vomiting. EKG revealed sinus bradycardia right bundle branch block and left AV block. Chest x-ray correlate for early volume overload. Echocardiogram from December 2019 revealed preserved LV systolic function with ejection fraction 55-60%. Troponins have been negative 3. Will admit patient for cardiac observation and cardiology consult is ordered. 2/: Troponins have been negative on 3 draws. Patient has been seen by cardiology and cleared for discharge with planned follow-up as an outpatient. Patient is afebrile, heart rate 57, blood pressure 131/71, pulse ox 96% on room air. Patient will be discharged home today in stable condition. DISCHARGE DIAGNOSES 1. Chest pain, atypical in nature. 2. Diabetes mellitus type 2 3. Schizophrenia, patient has public guardian follows with [facility]. 4. Bipolar disorder 5. History of Seizure disorder 6. History of illicit drug use, currently in remission at a recovery house 7. insomnia 8. Mild intermittent asthma Discharge plan: back to [facility] Impression and plan of care have been directed as dictated by the signing physician. Liz Reid nurse practitioner acting as scribe for signing physician. Patient Condition at Discharge: Good Plan - Discharge Summary Discharge Rx Participant: No New Discharge Prescriptions: Continue Fluticasone Nasal [place] [Flonase Nasal [place]] 1 spray EA NOSTRIL DAILY Zonisamide [Zonegran] 300 mg PO BID allopurinoL [Zyloprim] 100 mg PO DAILY Montelukast [Singulair] 10 mg PO HS Cholecalciferol [Vitamin D3 (25 Mcg = 1000 Iu)] 5,000 unit PO DAILY Budesonide [Pulmicort Flexhaler] 1 puff INHALATION RT-BID Omeprazole 20 mg PO DAILY DULoxetine HCL [Cymbalta] 60 mg PO DAILY 30 Days capsule. Docusate [Colace] 100 mg PO BID PRN 30 Days cap PRN Reason: Constipation ARIPiprazole [Abilify] 10 mg PO HS Aspirin EC [Ecotrin Low Dose] 81 mg PO DAILY hydrOXYzine pamoate [Vistaril] 25 mg PO Q6HR Naltrexone HCl [Revia] 50 mg PO DAILY ARIPiprazole [Abilify Maintena] 400 mg IM Q28D Benztropine Mesylate [Cogentin] 2 mg PO BID PRN PRN Reason: SIDE EFFECTS calcium polycarbophiL [Fibercon] 1,250 mg PO BID PRN PRN Reason: Constipation Ibuprofen [Motrin] 400 mg PO BID PRN PRN Reason: Pain INSULIN LISPRO (humaLOG) [humaLOG] 20 units SQ AC-BID lamoTRIgine [LaMICtal] 200 mg PO DAILY Polyethylene Glycol 3350 [Miralax] 17 gm PO DAILY PRN PRN Reason: Constipation traZODone HCL [Desyrel] 100 mg PO HS PRN PRN Reason: Insomnia Discharge Medication List Fluticasone Nasal [place] [Flonase Nasal [place]] 1 spray EA NOSTRIL DAILY 12/16/18 [History] Zonisamide [Zonegran] 300 mg PO BID 12/16/18 [History] Budesonide [Pulmicort Flexhaler] 1 puff INHALATION RT-BID 12/16/19 [History] Cholecalciferol [Vitamin D3 (25 Mcg = 1000 Iu)] 5,000 unit PO DAILY 12/16/19 [History] Montelukast [Singulair] 10 mg PO HS 12/16/19 [History] Omeprazole 20 mg PO DAILY 12/16/19 [History] allopurinoL [Zyloprim] 100 mg PO DAILY 12/16/19 [History] DULoxetine HCL [Cymbalta] 60 mg PO DAILY 30 Days capsule. 03/08/20 [Rx] Docusate [Colace] 100 mg PO BID PRN 30 Days cap 03/08/20 [Rx] ARIPiprazole [Abilify] 10 mg PO HS 04/12/20 [History] Aspirin EC [Ecotrin Low Dose] 81 mg PO DAILY 04/12/20 [History] Naltrexone HCl [Revia] 50 mg PO DAILY 04/12/20 [History] hydrOXYzine pamoate [Vistaril] 25 mg PO Q6HR 04/12/20 [History] ARIPiprazole [Abilify Maintena] 400 mg IM Q28D 09/04/20 [History] Benztropine Mesylate [Cogentin] 2 mg PO BID PRN 09/04/20 [History] INSULIN LISPRO (humaLOG) [humaLOG] 20 units SQ AC-BID 09/04/20 [History] Ibuprofen [Motrin] 400 mg PO BID PRN 09/04/20 [History] Polyethylene Glycol 3350 [Miralax] 17 gm PO DAILY PRN 09/04/20 [History] calcium polycarbophiL [Fibercon] 1,250 mg PO BID PRN 09/04/20 [History] lamoTRIgine [LaMICtal] 200 mg PO DAILY 09/04/20 [History] traZODone HCL [Desyrel] 100 mg PO HS PRN 09/04/20 [History] Follow up Appointment(s)/Referral(s): Sanjay Piper MD [STAFF PHYSICIAN] - 1 Week [facility] Yuval ledezma [Primary Care Provider] - 1 Week Patient Instructions/Handouts: Chest Pain (DC) Discharge Disposition: HOME SELF-CARE
--- NOTE | 2020-09-05 10:08 | P.CRDCN ---
History of Present Illness Consult date: 09/05/20 History of present illness: CHIEF COMPLAINT: Chest pain HISTORY OF PRESENT ILLNESS: This is a 40-year-old female with a past medical history significant for diabetes mellitus, seizure disorder, COPD, schizophrenia, bipolar disorder, and illicit drug use. Patient follows in the office with Dr. Pipre. We have been asked to see the patient in consultation for chest pain. Patient examined this morning at the bedside. Patient states that she began having chest pain yesterday that was on the right side of her chest. She describes the pain as a stabbing sensation. She states she has a little bit of discomfort this morning but it is significantly improved from yesterday. She states the pain is worse with deep inspiration. She also reports tenderness with chest wall palpation. She denies shortness of breath. Denies nausea or vomiting. Denies dizziness or lightheadedness. DIAGNOSTICS: EKG reveals sinus bradycardia with right bundle branch block and left anterior fascicular block, unchanged from previous EKG Chest xray consideration for early volume overload Laboratory data: WBC 13.1. Hemoglobin 13.5. Platelet count 218. D-dimer 0.40. Sodium 139. Potassium 4.1. BUN 14. Creatinine 0.88. Troponin negative 3. Current home cardiac medications include aspirin 81 mg daily Echocardiogram completed in December 2019 revealed ejection fraction 55-60%, mild mitral regurgitation, and mild tricuspid regurgitation. REVIEW OF SYSTEMS: At the time of my exam: CONSTITUTIONAL: Denies fever or chills. HEENT: Denies blurred vision, vision changes, or eye pain. Denies hemoptysis CARDIOVASCULAR: Denies chest pain, orthopnea, PND or palpitations RESPIRATORY: No shortness of breath. GASTROINTESTINAL: Denies abdominal pain. Denies nausea or vomiting. HEMATOLOGIC: Denies bleeding disorders. GENITOURINARY: Denies any blood in urine. SKIN: Denies pruitis. Denies rash. PHYSICAL EXAM: VITAL SIGNS: Reviewed. GENERAL: Well-developed in no acute distress. HEENT: Head is normocephalic. Pupils are equal, round. Sclerae anicteric. Mucous membranes of the mouth are moist. Neck supple. No JVD or thyromegaly LUNGS: Respirations even and unlabored. Lungs essentially clear to auscultation bilaterally. HEART: Regular rate and rhythm. S1 and S2 heard. Tenderness of right chest wall with palpation ABDOMEN: Soft. Nondistended. Nontender. EXTREMITIES: Normal range of motion. No clubbing or cyanosis. Peripheral pulses intact. No lower extremity edema NEUROLOGIC: Awake and alert. Oriented x 3. ASSESSMENT: Chest pain, atypical for angina, troponin negative 3 Diabetes mellitus Schizophrenia Bipolar disorder History of illicit drug use Morbid obesity: BMI 44.9 PLAN: An acute coronary event has been ruled out Patient may be discharged home today from a cardiac perspective and follow up on an outpatient basis Nurse practitioner note has been reviewed by physician. Signing provider agrees with the documented findings, assessment, and plan of care. Past Medical History Past Medical History: Asthma, Heart Failure, COPD, Fibromyalgia, GERD/Reflux, GI Bleed, Hypertension, Liver Disease, Osteoarthritis (OA), Pneumonia, Seizure Disorder, Skin Disorder Additional Past Medical History / Comment(s): Bronchitis, gestational diabetes, seizures with last one 09/03/20, sickle cell trait, liver cirrhosis, anemia, ch rons, IBS, ulcerative colitis, lowr GI bleed, hemorrhoids, constipation, psoriasis, migraines, chronic low back and cervical pain, scoliosis, arhtritis in multiple joints, gout bilateral feet. History of Any Multi-Drug Resistant Organisms: None Reported Past Surgical History: Cholecystectomy, Orthopedic Surgery Additional Past Surgical History / Comment(s): L oophorectomy d/t cyst, D&C, colonoscopy, L carpal tunnel release. Past Anesthesia/Blood Transfusion Reactions: Motion Sickness, Postoperative Nausea & Vomiting (PONV) Smoking Status: Former smoker - Past Family History Mother History Unknown: Yes Family Medical History: Cancer Additional Family Medical History / Comment(s): Mother had breast cancer and metnal illness She is living. Father Family Medical History: Cancer Additional Family Medical History / Comment(s): Father is . He had agent orange exposure. He had liver cancer, bowel to brain cancer. Medications and Allergies Home Medications Medication Instructions Recorded Confirmed Type Fluticasone Nasal [place] [Flonase 1 spray EA NOSTRIL DAILY 12/16/18 09/04/20 History Nasal [place]] Zonisamide [Zonegran] 300 mg PO BID 12/16/18 09/04/20 History Budesonide [Pulmicort Flexhaler] 1 puff INHALATION RT-BID 12/16/19 09/04/20 History Cholecalciferol [Vitamin D3 (25 5,000 unit PO DAILY 12/16/19 09/04/20 History Mcg = 1000 Iu)] Montelukast [Singulair] 10 mg PO HS 12/16/19 09/04/20 History Omeprazole 20 mg PO DAILY 12/16/19 09/04/20 History allopurinoL [Zyloprim] 100 mg PO DAILY 12/16/19 09/04/20 History DULoxetine HCL [Cymbalta] 60 mg PO DAILY 30 Days capsule. 03/08/20 09/04/20 Rx Docusate [Colace] 100 mg PO BID PRN 30 Days cap 03/08/20 09/04/20 Rx ARIPiprazole [Abilify] 10 mg PO HS 04/12/20 09/04/20 History Aspirin EC [Ecotrin Low Dose] 81 mg PO DAILY 04/12/20 09/04/20 History Naltrexone HCl [Revia] 50 mg PO DAILY 04/12/20 09/04/20 History hydrOXYzine pamoate [Vistaril] 25 mg PO Q6HR 04/12/20 09/04/20 History ARIPiprazole [Abilify Maintena] 400 mg IM Q28D 09/04/20 09/04/20 History Benztropine Mesylate [Cogentin] 2 mg PO BID PRN 09/04/20 09/04/20 History INSULIN LISPRO (humaLOG) [humaLOG] 20 units SQ AC-BID 09/04/20 09/04/20 History Ibuprofen [Motrin] 400 mg PO BID PRN 09/04/20 09/04/20 History Polyethylene Glycol 3350 [Miralax] 17 gm PO DAILY PRN 09/04/20 09/04/20 History calcium polycarbophiL [Fibercon] 1,250 mg PO BID PRN 09/04/20 09/04/20 History lamoTRIgine [LaMICtal] 200 mg PO DAILY 09/04/20 09/04/20 History traZODone HCL [Desyrel] 100 mg PO HS PRN 09/04/20 09/04/20 History Allergies Allergy/AdvReac Type Severity Reaction Status Date / Time Iodinated Contrast Media Allergy Anaphylaxis Verified 09/04/20 09:17 [Iodinated Contrast Media - IV Dye] peanut Allergy Anaphylaxis Verified 09/04/20 09:17 Penicillins Allergy Anaphylaxis Verified 09/04/20 09:17 shellfish derived Allergy Anaphylaxis Verified 09/04/20 09:17 cephalexin monohydrate AdvReac Nausea & Verified 09/04/20 09:17 [From Keflex] Vomiting & Diarrhea trazodone AdvReac bp Verified 09/04/20 09:17 issues/dissiness--patient takes at home Physical Exam Vitals: Vital Signs Temp Pulse Pulse Resp BP BP Pulse Ox 09/05/20 08:00 97.9 F 57 L 16 131/71 96 09/05/20 02:00 97.8 F 71 16 109/68 96 09/04/20 19:54 98.1 F 68 16 86/42 96 09/04/20 13:59 98 F 62 16 118/71 97 09/04/20 11:37 97.9 F 63 18 125/58 95 09/04/20 11:00 63 18 125/58 95 Intake and Output 09/04/20 09/05/20 09/05/20 22:59 06:59 14:59 Intake Total 222 Balance 222 Intake: Oral 222 Other: Voiding Method Toilet # Voids 1 3 # Bowel Movements 2 Results 09/04/20 09:18 09/04/20 09:18 Cardiac Enzymes 09/04/20 09/04/20 09/04/20 Range/Units 09:18 09:18 12:17 AST 23 (14-36) U/L Troponin I <0.012 <0.012 (0.000-0.034) ng/mL 09/04/20 Range/Units 15:18 AST (14-36) U/L Troponin I <0.012 (0.000-0.034) ng/mL Coagulation 09/04/20 Range/Units 09:18 PT 10.1 (9.0-12.0) sec APTT 24.4 (22.0-30.0) sec CBC 09/04/20 Range/Units 09:18 WBC 13.1 H (3.8-10.6) k/uL RBC 5.40 (3.80-5.40) m/uL Hgb 13.5 (11.4-16.0) gm/dL Hct 46.1 H (34.0-46.0) % Plt Count 218 (150-450) k/uL Comprehensive Metabolic Panel 09/04/20 Range/Units 09:18 Sodium 139 (137-145) mmol/L Potassium 4.1 (3.5-5.1) mmol/L Chloride 104 (98-107) mmol/L Carbon Dioxide 25 (22-30) mmol/L BUN 14 (7-17) mg/dL Creatinine 0.88 (0.52-1.04) mg/dL Glucose 105 H (74-99) mg/dL Calcium 9.2 (8.4-10.2) mg/dL AST 23 (14-36) U/L ALT 20 (4-34) U/L Alkaline Phosphatase 116 (38-126) U/L Total Protein 7.8 (6.3-8.2) g/dL Albumin 4.4 (3.5-5.0) g/dL Current Medications Generic Name Dose Route Start Last Admin Trade Name Freq PRN Reason Stop Dose Admin Allopurinol 100 mg 09/05/20 09:00 09/05/20 09:07 Allopurinol 100 Mg Tab PO 100 mg DAILY ZHANG Administration Aripiprazole 10 mg 09/04/20 21:00 09/04/20 19:45 Aripiprazole 10 Mg Tab PO 10 mg HS ZHANG Administration Aripiprazole 400 mg 09/23/20 09:00 Aripiprazole Im Syringe 400 Mg (No Charge) Pharmacy Stock IM Q28D [facility] Aspirin 81 mg 09/05/20 09:00 09/05/20 09:07 Aspirin 81 Mg PO 81 mg DAILY ZHANG Administration Benztropine Mesylate 2 mg 09/04/20 14:14 Benztropine Mesylate 1 Mg Tab PO BID PRN E.P. SIDE EFFECTS Calcium Polycarbophil 1,250 mg 09/04/20 14:14 Calcium Polycarbophil 625 Mg Tab PO BID PRN Constipation Cholecalciferol 125 mcg 09/05/20 09:00 09/05/20 09:07 Cholecalciferol 25 Mcg (1000 Iu) Tablet PO 125 mcg DAILY ZHANG Administration Docusate Sodium 100 mg 09/04/20 14:14 Docusate 100 Mg Cap PO BID PRN Constipation Duloxetine HCl 60 mg 09/05/20 09:00 09/05/20 09:07 Duloxetine Hcl 60 Mg Capsule.Dr PO 60 mg DAILY ZHANG Administration Fluticasone Propionate 1 puff 09/04/20 20:00 09/05/20 08:27 Fluticasone 110 Mcg Inhaler INHALATION 1 puff RT-BID ZHANG Administration Fluticasone Propionate 1 spray 09/05/20 09:00 09/05/20 09:08 Fluticasone 50mcg/[place] Nasal 16gm EA NOSTRIL 1 spray DAILY ZHANG Administration Hydroxyzine Pamoate 25 mg 09/04/20 18:00 09/05/20 05:27 Hydroxyzine Pamoate 25 Mg Cap PO 25 mg Q6HR ZHANG Administration Insulin Aspart 20 unit 09/04/20 17:30 09/05/20 08:38 Insulin Aspart (Novolog) 100 Unit/Ml Vial SQ Not Given AC-BID ZHANG Insulin Aspart 0 unit 09/04/20 17:30 09/05/20 08:39 Insulin Aspart (Novolog) 100 Unit/Ml Vial SQ Not Given ACHS [facility] Protocol Lamotrigine 200 mg 09/05/20 09:00 09/05/20 09:07 Lamotrigine 100 Mg Tab PO 200 mg DAILY ZHANG Administration Montelukast Sodium 10 mg 09/04/20 21:00 09/04/20 19:46 Montelukast 10 Mg Tab PO 10 mg HS ZHANG Administration Naltrexone HCl 50 mg 09/05/20 09:00 09/05/20 09:07 Naltrexone Hcl 50 Mg Tab PO 50 mg DAILY ZHANG Administration Nitroglycerin 0.4 mg 09/04/20 10:46 Nitroglycerin Sl Tabs 0.4 Mg Tab SUBLINGUAL Q5M PRN Chest Pain Pantoprazole Sodium 40 mg 09/05/20 09:00 09/05/20 09:08 Pantoprazole 40 Mg Tablet PO 40 mg DAILY ZHANG Administration Polyethylene Glycol 17 gm 09/04/20 14:14 Polyethylene Glycol 3350 17 Gm Powd.Pack PO DAILY PRN Constipation Trazodone HCl 100 mg 09/04/20 14:14 Trazodone Hcl 100 Mg Tab PO HS PRN Insomnia Zonisamide 300 mg 09/04/20 21:00 09/05/20 09:07 Zonisamide 100 Mg Cap PO 300 mg BID ZHANG Administration Intake and Output 09/04/20 09/05/20 09/05/20 22:59 06:59 14:59 Intake Total 222 Balance 222 Intake: Oral 222 Other: Voiding Method Toilet # Voids 1 3 # Bowel Movements 2 09/04/20 09:18 09/04/20 09:18
[2020-09-05 10:11] LABS: Chol/HDL Ratio 3.33; LDL Cholesterol,Calculated 94.4 mg/dL (0.0-131.0); VLDL Calculation 24.6 mg/dL (5.00-40.00)
[2020-09-23] MEDS ORDERED: ARIPiprazole IM SYRINGE 400 MG (NO CHARGE) PHARMACY STOCK IM SCH (09:00)
== END 2020-09-05 09:58 | disposition home or self-care (01) ==
LOC: EC 07:09 → 6NMEDSUR 10:46
PROVIDERS: ADMIT Internal Medicine Geriatric Medicine; ATTEND Internal Medicine Geriatric Medicine
DX: R07.89 Other chest pain (principal); I25.10 Atherosclerotic heart disease of native coronary artery without angina pectoris; E11.9 Type 2 diabetes mellitus without complications; F20.9 Schizophrenia, unspecified; F31.9 Bipolar disorder, unspecified; I11.0 Hypertensive heart disease with heart failure; I50.9 Heart failure, unspecified; G40.909 Epilepsy, unspecified, not intractable, without status epilepticus; M54.9 Dorsalgia, unspecified; M10.9 Gout, unspecified; N83.209 Unspecified ovarian cyst, unspecified side; F41.9 Anxiety disorder, unspecified; J44.9 Chronic obstructive pulmonary disease, unspecified; I44.30 Unspecified atrioventricular block; I45.2 Bifascicular block; R00.1 Bradycardia, unspecified; M79.7 Fibromyalgia; K21.9 Gastro-esophageal reflux disease without esophagitis; M19.90 Unspecified osteoarthritis, unspecified site; D57.3 Sickle-cell trait; K74.60 Unspecified cirrhosis of liver; D64.9 Anemia, unspecified; K58.9 Irritable bowel syndrome, unspecified; K59.00 Constipation, unspecified; G89.29 Other chronic pain; M54.5 Low back pain; M54.2 Cervicalgia; L40.9 Psoriasis, unspecified; G43.909 Migraine, unspecified, not intractable, without status migrainosus; E66.01 Morbid (severe) obesity due to excess calories; Z68.41 Body mass index [BMI] 40.0-44.9, adult; G47.00 Insomnia, unspecified; J45.20 Mild intermittent asthma, uncomplicated; F14.11 Cocaine abuse, in remission; F12.11 Cannabis abuse, in remission; F19.11 Other psychoactive substance abuse, in remission; Z20.822 Contact with and (suspected) exposure to COVID-19; Z79.899 Other long term (current) drug therapy; Z79.82 Long term (current) use of aspirin; Z79.51 Long term (current) use of inhaled steroids; Z79.4 Long term (current) use of insulin; Z79.1 Long term (current) use of non-steroidal anti-inflammatories (NSAID); Z88.8 Allergy status to other drugs, medicaments and biological substances; Z88.1 Allergy status to other antibiotic agents; Z91.041 Radiographic dye allergy status; Z91.010 Allergy to peanuts; Z88.0 Allergy status to penicillin; Z91.013 Allergy to seafood; Z90.49 Acquired absence of other specified parts of digestive tract; Z87.891 Personal history of nicotine dependence; Z87.01 Personal history of pneumonia (recurrent); Z87.19 Personal history of other diseases of the digestive system; Z87.09 Personal history of other diseases of the respiratory system; Z86.32 Personal history of gestational diabetes; Z90.721 Acquired absence of ovaries, unilateral; Z80.9 Family history of malignant neoplasm, unspecified; Z80.3 Family history of malignant neoplasm of breast; Z80.0 Family history of malignant neoplasm of digestive organs; Z80.8 Family history of malignant neoplasm of other organs or systems; Z81.8 Family history of other mental and behavioral disorders
CPT/HCPCS: 93005 ×2; 99285; 36415; 94640 ×2; 85379; 80061; 80053; 83735; 84484; 85025; 85610; 85730; 87635; 71046; G0378 ×2

== ENCOUNTER 2020-11-15 12:14 | Emergency (ER) | payer OTHER ==
[2020-11-15 12:26] VITALS: PULSE 78; RESP 18; TEMP 98.2
--- NOTE | 2020-11-15 14:38 | ED ---
General Adult HPI - General Chief complaint: Headache Stated complaint: Wants HIV testing Source: patient Mode of arrival: ambulatory Limitations: no limitations - History of Present Illness Initial comments: 40-year-old female with a complicated past medical history presents to the emergency room for several complaints. Patient reports she had intercourse with an HIV-positive person several weeks ago. Patient reports she wants HIV testing. Patient also wants a coronavirus test. States she has had a runny nose and congestion as well as a dry cough for a couple weeks now. States she has felt more fatigued than normal. Denies fevers.Patient has no other complaints at this time including shortness of breath, chest pain, abdominal pain, nausea or vomiting, headache, or visual changes. - Related Data Home Medications Medication Instructions Recorded Confirmed Fluticasone Nasal [place] [Flonase 1 spray EA NOSTRIL DAILY 12/16/18 09/04/20 Nasal [place]] Zonisamide [Zonegran] 300 mg PO BID 12/16/18 09/04/20 Budesonide [Pulmicort Flexhaler] 1 puff INHALATION RT-BID 12/16/19 09/04/20 Cholecalciferol [Vitamin D3 (25 5,000 unit PO DAILY 12/16/19 09/04/20 Mcg = 1000 Iu)] Montelukast [Singulair] 10 mg PO HS 12/16/19 09/04/20 Omeprazole 20 mg PO DAILY 12/16/19 09/04/20 allopurinoL [Zyloprim] 100 mg PO DAILY 12/16/19 09/04/20 ARIPiprazole [Abilify] 10 mg PO HS 04/12/20 09/04/20 Aspirin EC [Ecotrin Low Dose] 81 mg PO DAILY 04/12/20 09/04/20 Naltrexone HCl [Revia] 50 mg PO DAILY 04/12/20 09/04/20 hydrOXYzine pamoate [Vistaril] 25 mg PO Q6HR 04/12/20 09/04/20 ARIPiprazole [Abilify Maintena] 400 mg IM Q28D 09/04/20 09/04/20 Benztropine Mesylate [Cogentin] 2 mg PO BID PRN 09/04/20 09/04/20 INSULIN LISPRO (humaLOG) [humaLOG] 20 units SQ AC-BID 09/04/20 09/04/20 Ibuprofen [Motrin] 400 mg PO BID PRN 09/04/20 09/04/20 Polyethylene Glycol 3350 [Miralax] 17 gm PO DAILY PRN 09/04/20 09/04/20 calcium polycarbophiL [Fibercon] 1,250 mg PO BID PRN 09/04/20 09/04/20 lamoTRIgine [LaMICtal] 200 mg PO DAILY 09/04/20 09/04/20 traZODone HCL [Desyrel] 100 mg PO HS PRN 09/04/20 09/04/20 Previous Rx's Medication Instructions Recorded DULoxetine HCL [Cymbalta] 60 mg PO DAILY 30 Days capsule. 03/08/20 Docusate [Colace] 100 mg PO BID PRN 30 Days cap 03/08/20 Allergies Allergy/AdvReac Type Severity Reaction Status Date / Time Iodinated Contrast Media Allergy Anaphylaxis Verified 11/15/20 12:26 [Iodinated Contrast Media - IV Dye] peanut Allergy Anaphylaxis Verified 11/15/20 12:26 Penicillins Allergy Anaphylaxis Verified 11/15/20 12:26 shellfish derived Allergy Anaphylaxis Verified 11/15/20 12:26 cephalexin monohydrate AdvReac Nausea & Verified 11/15/20 12:26 [From Keflex] Vomiting & Diarrhea trazodone AdvReac bp Verified 11/15/20 12:26 issues/dissiness--patient takes at home Review of Systems ROS Statement: Those systems with pertinent positive or pertinent negative responses have been documented in the HPI. ROS Other: All systems not noted in ROS Statement are negative. Past Medical History Past Medical History: Asthma, Heart Failure, COPD, Fibromyalgia, GERD/Reflux, GI Bleed, Hypertension, Liver Disease, Osteoarthritis (OA), Pneumonia, Seizure Disorder, Skin Disorder Additional Past Medical History / Comment(s): Bronchitis, gestational diabetes, seizures with last one 09/03/20, sickle cell trait, liver cirrhosis, anemia, chrons, IBS, ulcerative colitis, lowr GI bleed, hemorrhoids, constipation, psoriasis, migraines, chronic low back and cervical pain, scoliosis, arhtritis in multiple joints, gout bilateral feet, History of Any Multi-Drug Resistant Organisms: None Reported Past Surgical History: Cholecystectomy, Orthopedic Surgery Additional Past Surgical History / Comment(s): L oophorectomy d/t cyst, D&C, colonoscopy, L carpal tunnel release, Past Anesthesia/Blood Transfusion Reactions: Motion Sickness, Postoperative Nausea & Vomiting (PONV) Past Psychological History: Anxiety, Bipolar, Depression, Schizophrenia Smoking Status: Former smoker Past Alcohol Use History: None Reported Past Drug Use History: None Reported - Past Family History Mother History Unknown: Yes Family Medical History: Cancer Additional Family Medical History / Comment(s): Mother had breast cancer and metnal illness She is living. Father Family Medical History: Cancer Additional Family Medical History / Comment(s): Father is . He had agent orange exposure. He had liver cancer, bowel to brain cancer. General Exam Limitations: no limitations General appearance: alert, in no apparent distress Head exam: Present: atraumatic, normocephalic, normal inspection Eye exam: Present: normal appearance ENT exam: Present: normal exam, mucous membranes moist Neck exam: Present: normal inspection. Absent: tenderness, meningismus, lymphadenopathy Respiratory exam: Present: normal lung sounds bilaterally. Absent: respiratory distress, wheezes, rales, rhonchi, stridor Cardiovascular Exam: Present: regular rate, normal rhythm, normal heart sounds. Absent: systolic murmur, diastolic murmur, rubs, gallop, clicks GI/Abdominal exam: Present: soft, normal bowel sounds. Absent: distended, tenderness, guarding, rebound, rigid Course Vital Signs 11/15/20 12:22 Temperature 98.2 F Pulse Rate 78 Respiratory 18 Rate Blood Pressure 115/82 O2 Sat by Pulse 98 Oximetry Medical Decision Making - Medical Decision Making Discussed case with Dr Murillo, we have referred patient to the health department for HIV testing. Patient is outside the time frame for PEP. I did give her the phone number for this. I offered to test her for gonorrhea chlamydia trichomonas which she refused stating she will follow-up with the health department. Coronavirus test was negative. Patient will return here for any worsening symptoms. I discussed this case with attending Dr. Murillo who agrees with this assessment and treatment plan. - Lab Data Lab Results 11/15/20 Range/Units 12:26 Coronavirus (PCR) Not Detected (Not Detectd) Disposition Clinical Impression: Lab test negative for COVID-19 virus, Environmental allergies Disposition: HOME SELF-CARE Condition: Good Instructions (If sedation given, give patient instructions): Coronavirus D isease 2018 (COVID-19) Additional Instructions: Please follow up with primary care. Take claritin for allergies. Follow up with the health department for HIV testing. . Return to the emergency room for any worsening symptoms. Is patient prescribed a controlled substance at d/c from ED?: No Referrals: [facility] [Primary Care Provider] - 1-2 days Time of Disposition: 14:35
[2020-11-15 14:41] VITALS: BP 112/84
== END 2020-11-15 14:41 | disposition home or self-care (01) ==
LOC: EC 12:14
DX: Z20.822 Contact with and (suspected) exposure to COVID-19 (principal); Z91.09 Other allergy status, other than to drugs and biological substances; J44.9 Chronic obstructive pulmonary disease, unspecified; I11.0 Hypertensive heart disease with heart failure; I50.9 Heart failure, unspecified; G40.909 Epilepsy, unspecified, not intractable, without status epilepticus; F41.9 Anxiety disorder, unspecified; F31.9 Bipolar disorder, unspecified; F20.9 Schizophrenia, unspecified; K21.9 Gastro-esophageal reflux disease without esophagitis; Z79.51 Long term (current) use of inhaled steroids; Z79.899 Other long term (current) drug therapy; Z79.82 Long term (current) use of aspirin; Z79.4 Long term (current) use of insulin; Z91.041 Radiographic dye allergy status; Z88.0 Allergy status to penicillin; Z91.010 Allergy to peanuts; Z91.013 Allergy to seafood; Z88.1 Allergy status to other antibiotic agents; Z88.8 Allergy status to other drugs, medicaments and biological substances; Z87.891 Personal history of nicotine dependence
CPT/HCPCS: 87635; 99284

== ENCOUNTER 2020-12-21 22:32 | Observation (INO) | payer OTHER ==
--- NOTE | 2020-12-21 23:20 | ED ---
Chest Pain HPI - General Chief Complaint: Allergic Reaction Stated Complaint: allergic reaction Time Seen by Provider: 12/21/20 22:34 Source: patient, EMS Mode of arrival: EMS Limitations: no limitations - Related Data Home Medications Medication Instructions Recorded Confirmed Fluticasone Nasal [place] [Flonase 1 spray EA NOSTRIL DAILY 12/16/18 09/04/20 Nasal [place]] Zonisamide [Zonegran] 300 mg PO BID 12/16/18 09/04/20 Budesonide [Pulmicort Flexhaler] 1 puff INHALATION RT-BID 12/16/19 09/04/20 Cholecalciferol [Vitamin D3 (25 5,000 unit PO DAILY 12/16/19 09/04/20 Mcg = 1000 Iu)] Montelukast [Singulair] 10 mg PO HS 12/16/19 09/04/20 Omeprazole 20 mg PO DAILY 12/16/19 09/04/20 allopurinoL [Zyloprim] 100 mg PO DAILY 12/16/19 09/04/20 ARIPiprazole [Abilify] 10 mg PO HS 04/12/20 09/04/20 Aspirin EC [Ecotrin Low Dose] 81 mg PO DAILY 04/12/20 09/04/20 Naltrexone HCl [Revia] 50 mg PO DAILY 04/12/20 09/04/20 hydrOXYzine pamoate [Vistaril] 25 mg PO Q6HR 04/12/20 09/04/20 ARIPiprazole [Abilify Maintena] 400 mg IM Q28D 09/04/20 09/04/20 Benztropine Mesylate [Cogentin] 2 mg PO BID PRN 09/04/20 09/04/20 INSULIN LISPRO (humaLOG) [humaLOG] 20 units SQ AC-BID 09/04/20 09/04/20 Ibuprofen [Motrin] 400 mg PO BID PRN 09/04/20 09/04/20 Polyethylene Glycol 3350 [Miralax] 17 gm PO DAILY PRN 09/04/20 09/04/20 calcium polycarbophiL [Fibercon] 1,250 mg PO BID PRN 09/04/20 09/04/20 lamoTRIgine [LaMICtal] 200 mg PO DAILY 09/04/20 09/04/20 traZODone HCL [Desyrel] 100 mg PO HS PRN 09/04/20 09/04/20 Previous Rx's Medication Instructions Recorded DULoxetine HCL [Cymbalta] 60 mg PO DAILY 30 Days capsule. 03/08/20 Docusate [Colace] 100 mg PO BID PRN 30 Days cap 03/08/20 Allergies Allergy/AdvReac Type Severity Reaction Status Date / Time Iodinated Contrast Media Allergy Anaphylaxis Verified 11/15/20 12:26 [Iodinated Contrast Media - IV Dye] peanut Allergy Anaphylaxis Verified 11/15/20 12:26 Penicillins Allergy Anaphylaxis Verified 11/15/20 12:26 shellfish derived Allergy Anaphylaxis Verified 11/15/20 12:26 cephalexin monohydrate AdvReac Nausea & Verified 11/15/20 12:26 [From Keflex] Vomiting & Diarrhea trazodone AdvReac bp Verified 11/15/20 12:26 issues/dissiness--patient takes at home Review of Systems ROS Statement: Those systems with pertinent positive or pertinent negative responses have been documented in the HPI. ROS Other: All systems not noted in ROS Statement are negative. EKG Findings - EKG Comments: EKG Findings:: EKG shows sinus rhythm 62 WI 178 QRS 166 QTc 464 Past Medical History Past Medical History: Asthma, Heart Failure, COPD, Fibromyalgia, GERD/Reflux, GI Bleed, Hypertension, Liver Disease, Osteoarthritis (OA), Pneumonia, Seizure Disorder, Skin Disorder Additional Past Medical History / Comment(s): Bronchitis, gestational diabetes, seizures with last one 09/03/20, sickle cell trait, liver cirrhosis, anemia, chrons, IBS, ulcerative colitis, lowr GI bleed, hemorrhoids, constipation, psoriasis, migraines, chronic low back and cervical pain, scoliosis, arhtritis in multiple joints, gout bilateral feet, History of Any Multi-Drug Resistant Organisms: None Reported Past Surgical History: Cholecystectomy, Orthopedic Surgery Additional Past Surgical History / Comment(s): L oophorectomy d/t cyst, D&C, colonoscopy, L carpal tunnel release, Past Anesthesia/Blood Transfusion Reactions: Motion Sickness, Postoperative Nausea & Vomiting (PONV) Past Psychological History: Anxiety, Bipolar, Depression, Schizophrenia Smoking Status: Former smoker Past Alcohol Use History: None Reported Past Drug Use History: None Reported - Past Family History Mother History Unknown: Yes Family Medical History: Cancer Additional Family Medical History / Comment(s): Mother had breast cancer and metnal illness She is living. Father Family Medical History: Cancer Additional Family Medical History / Comment(s): Father is . He had agent orange exposure. He had liver cancer, bowel to brain cancer. General Exam Limitations: no limitations Course Vital Signs 12/21/20 22:38 Temperature 98.3 F Pulse Rate 74 Respiratory 16 Rate Blood Pressure 138/81 O2 Sat by Pulse 98 Oximetry Disposition Clinical Impression: Allergic reaction, Chest pain Disposition: ADMITTED IP TO THIS HOSP Condition: Fair Is patient prescribed a controlled substance at d/c from ED?: No Referrals: [facility] [Primary Care Provider] - 1-2 days
--- NOTE | 2020-12-21 23:37 | XR ---
EXAMINATION TYPE: XR chest 2V DATE OF EXAM: 12/21/2020 COMPARISON: 09/04/2020 HISTORY: Chest pain TECHNIQUE: FINDINGS: Heart and mediastinum are normal. Lungs are clear. Diaphragm is normal. Bony thorax appears intact. There is no pleural effusion. IMPRESSION: Normal chest. No change.
[2020-12-22] LABS: Basophils # (A) 0.1 k/uL (0-0.2); Basophils % (A) 0 %; Eosinophils # (A) 0.7 k/uL (0-0.7); Eosinophils % (A) 4 %; HCT 39.7 % (34.0-46.0); HGB 13.1 gm/dL (11.4-16.0); Lymphocytes # (A) 3.4 k/uL (1.0-4.8); Lymphocytes % (A) 18 %; MCH 27.2 pg (25.0-35.0); MCV 82.6 fL (80.0-100.0); Mean Platelet Volume 6.6; Monocytes # (A) 0.7 k/uL (0-1.0); Monocytes % (A) 4 %; Neutrophils # (A) 13.6 k/uL (1.3-7.7); Neutrophils % (A) 73 %; Platelet Count 241 k/uL (150-450); RDW 15.9 % (11.5-15.5); WBC 18.5 k/uL (3.8-10.6)
[2020-12-22 00:09] LABS: INR 0.9 (<1.2); Partial Thromboplastin Time 23.9 sec (22.0-30.0)
[2020-12-22 00:13] LABS: ALT 14 U/L (4-34); AST 20 U/L (14-36); African American GFR (CKD) >90 (>60 ml/min/1.73 sqM); Albumin 3.8 g/dL (3.5-5.0); Alkaline Phosphatase 99 U/L (38-126); Anion Gap 9 mmol/L; Blood Urea Nitrogen 15 mg/dL (7-17); Calcium 9.2 mg/dL (8.4-10.2); Carbon Dioxide 21 mmol/L (22-30); Chloride 108 mmol/L (98-107); Creatine Kinase 79 U/L (30-135); Glucose 115 mg/dL (74-99); Magnesium 1.8 mg/dL (1.6-2.3); Non-African American GFR(CKD) 80 (>60 ml/min/1.73 sqM); Potassium 4.1 mmol/L (3.5-5.1); Sodium 138 mmol/L (137-145); Total Bilirubin <0.1 mg/dL (0.2-1.3); Total Protein 6.9 g/dL (6.3-8.2)
[2020-12-22] MEDS ORDERED: NITROGLYCERIN SL TABS 0.4 MG TAB SUBLINGUAL PRN (00:54)
[2020-12-22] MEDS ORDERED: ASPIRIN 81 MG PO STA (00:54)
[2020-12-22] MEDS ORDERED: polyethylene glycoL 3350 17 GM POWD.PACK PO PRN (09:12)
[2020-12-22] MEDS ORDERED: traZODone HCL 100 MG TAB PO PRN (09:12)
[2020-12-22] MEDS ORDERED: IBUPROFEN 400 MG TAB PO PRN (09:12)
[2020-12-22] MEDS ORDERED: DOCUSATE 100 MG CAP PO PRN (09:12)
[2020-12-22] MEDS: DULoxetine HCL 60 MG CAPSULE.DR PO SCH (10:47)
[2020-12-22] MEDS: NALTREXONE HCL 50 MG TAB PO SCH (11:19)
--- NOTE | 2020-12-22 12:15 | P.HPIM ---
History of Present Illness H&P Date: 12/22/20 Chief Complaint: chest pain HISTORY OF PRESENT ILLNESS This is a 40-year-old female patient of [facility]'s clinic as well as Dr. Rao psychiatrist and Dr. DIXIE Piper with past medical history significant for gestational diabetes mellitus, seizure disorder, chronic gout, schizophrenia, bipolar, COPD, hypertension, and illicit drug use in the past, tobacco use and dependence. Patient presented complaining of midsternal chest pain occurred when she was walking but also occurs when she is laying down. When she doesn't move that makes it better. She states she's had a little nausea. Complains of wheezing. No numbness or tingling. No shortness of breath. She states she has received 1/2 of the Covid vaccine. Patient has been afebrile, heart rate 74, blood pressure 138/81, pulse ox 90% on room air. EKG is a sinus rhythm with a right bundle branch block and left anterior fascicular block. Chest x-ray reveals normal chest. Lab work revealed troponin negative on 3 draws. WBC 18.5, hemoglobin 13.1, platelet count 241. Sodium 138, potassium 4.1, chloride 108, CO2 21, BUN 15 creatinine 0.9. Blood sugar 115. Troponin negative on 3 draws. Coronavirus not detected. Patient placed on the observation unit and consult with cardiology. Regarding seizures, patient states she had her last seizure about 3-4 days ago and follows with Dr. Moreno. REVIEW OF SYSTEMS Constitutional: No fever, no chills, no night sweats. No weight change. No weakness, fatigue or lethargy. No daytime sleepiness. EENT: No headache. No blurred vision or double vision, no loss of vision. No loss of Hearing, no ringing in the ears, no dizziness. No nasal drainage or congestion. No epistaxis. No sore throat. Lungs: No shortness of breath, cough, no sputum production. No wheezing. Cardiovascular: Reports chest pain, no lower extremity edema. No palpitations. No paroxysmal nocturnal dyspnea. No orthopnea. No lightheadedness or dizziness. No syncopal episodes. Abdominal: No abdominal pain. No nausea, vomiting. No diarrhea. No constipation. No bloody or tarry stools.. No loss of appetite. Genitourinary: No dysuria, increased frequency, urgency. No urinary retention. Musculoskeletal: No myalgias. No muscle weakness, no gait dysfunction, no frequent falls. No back pain. No neck pain. Integumentary: No wounds, no lesions. No rash or pruritus. No unusual bruising. No change in hair or nails. Neurologic: No aphasia. No facial droop. No change in mentation. No head injury. No headache. No paralysis. No paresthesia. Psychiatric: No depression. No anxiety. No mood swings. Endocrine: No abnormal blood sugars. No weight change. No excessive sweating or thirst. No cold intolerance. SOCIAL HISTORY Patient has history of smoking for approximately a 10-15 years and quit 15 years ago. She denies any marijuana use. She has a history of cocaine use. She is currently from her . FAMILY HISTORY Father at age 45 from liver cancer with metastatic disease. Mother is alive with history of breast cancer. Patient has 3 siblings with no major medical problems. Patient has 4 children with no major medical problems. PHYSICAL EXAMINATION Gen: This is a 40-year-old morbidly obese female. She is resting on the ER stretcher and appears to be comfortable and in no acute distress HEENT: Head is atraumatic, normocephalic. Pupils equal, round. Sclerae is anicteric. NECK: Supple. No JVD. No lymphadenopathy. No thyromegaly. LUNGS: Clear to auscultation. No wheezes or rhonchi. No intercostal retractions. HEART: Regular rate and rhythm. No murmur. ABDOMEN: Soft. Bowel sounds are present. No masses. No tenderness. EXTREMITIES: No pedal edema. No calf tenderness. NEUROLOGICAL: Patient is awake, alert and oriented x3. Cranial nerves 2 through 12 are grossly intact. ASSESSMENT AND PLAN 1. Chest pain with negative troponins. Cardiology consult. Dobutamine stress test ordered. Continue aspirin 81 mg daily. 2. COPD without exacerbation. Continue Flovent twice daily. 3. Chronic gout. Continue allopurinol 100 mg daily 4. Hypertension. 5. Seizure disorder. Continue Zonisamide 300 mg twice daily. 6. Schizophrenia. Patient is on Abilify IM monthly, Cymbalta 60 mg daily, Vistaril 25 mg 3 times daily, Vyvanse 40 mg daily, Lamictal 200 mg daily. Patient states she is off trazodone. 7. History of opioid dependence. Continue Revia after milligrams daily. 8. Seasonal ALLERGIES. Continue Claritin 10 mg daily, Flonase daily, Flovent a s needed. 9. Tobacco use and dependence. Nicotine patch. 10. History of gestational diabetes. 11. DVT prophylaxis. SCDs and ZAIDA hose. 12. GI prophylaxis. Pepcid. 13. COVID-19 testing negative. Patient has been hospitalized during a pandemic. Patient placed on the observation unit. DISCHARGE PLAN Home. Impression and plan of care have been directed as dictated by the signing physician. Liz Reid nurse practitioner acting as scribe for signing physici an. Past Medical History Past Medical History: Asthma, Heart Failure, COPD, Fibromyalgia, GERD/Reflux, GI Bleed, Hypertension, Liver Disease, Osteoarthritis (OA), Pneumonia, Seizure Disorder, Skin Disorder Additional Past Medical History / Comment(s): Bronchitis, gestational diabetes, seizures with last one 09/03/20, sickle cell trait, liver cirrhosis, anemia, chrons, IBS, ulcerative colitis, lowr GI bleed, hemorrhoids, constipation, psoriasis, migraines, chronic low back and cervical pain, scoliosis, arhtritis in multiple joints, gout bilateral feet, History of Any Multi-Drug Resistant Organisms: None Reported Past Surgical History: Cholecystectomy, Orthopedic Surgery Additional Past Surgical History / Comment(s): L oophorectomy d/t cyst, D&C, colonoscopy, L carpal tunnel release, Past Anesthesia/Blood Transfusion Reactions: Motion Sickness, Postoperative Nausea & Vomiting (PONV) Past Psychological History: Anxiety, Bipolar, Depression, Schizophrenia Smoking Status: Former smoker Past Alcohol Use History: None Reported Past Drug Use History: None Reported - Past Family History Mother History Unknown: Yes Family Medical History: Cancer Additional Family Medical History / Comment(s): Mother had breast cancer and metnal illness She is living. Father Family Medical History: Cancer Additional Family Medical History / Comment(s): Father is . He had agent orange exposure. He had liver cancer, bowel to brain cancer. Medications and Allergies Home Medications Medication Instructions Recorded Confirmed Type Fluticasone Nasal [place] [Flonase 1 spray EA NOSTRIL DAILY 12/16/18 12/22/20 History Nasal [place]] Zonisamide [Zonegran] 300 mg PO BID 12/16/18 12/22/20 History Cholecalciferol [Vitamin D3 (25 5,000 unit PO DAILY 12/16/19 12/22/20 History Mcg = 1000 Iu)] Montelukast [Singulair] 10 mg PO HS 12/16/19 12/22/20 History Omeprazole 20 mg PO DAILY 12/16/19 12/22/20 History allopurinoL [Zyloprim] 100 mg PO DAILY 12/16/19 12/22/20 History DULoxetine HCL [Cymbalta] 60 mg PO DAILY 30 Days capsule. 03/08/20 12/22/20 Rx Docusate [Colace] 100 mg PO BID PRN 30 Days cap 03/08/20 12/22/20 Rx Aspirin EC [Ecotrin Low Dose] 81 mg PO DAILY 04/12/20 12/22/20 History Naltrexone HCl [Revia] 50 mg PO DAILY 04/12/20 12/22/20 History hydrOXYzine pamoate [Vistaril] 25 mg PO TID 04/12/20 12/22/20 History ARIPiprazole [Abilify Maintena] 400 mg IM Q28D 09/04/20 12/22/20 History INSULIN LISPRO (humaLOG) [humaLOG] 20 units SQ AC-BID 09/04/20 12/22/20 History Ibuprofen [Motrin] 400 mg PO BID PRN 09/04/20 12/22/20 History Polyethylene Glycol 3350 [Miralax] 17 gm PO DAILY PRN 09/04/20 12/22/20 History calcium polycarbophiL [Fibercon] 1,250 mg PO BID PRN 09/04/20 12/22/20 History lamoTRIgine [LaMICtal] 200 mg PO DAILY 09/04/20 12/22/20 History traZODone HCL [Desyrel] 100 mg PO HS PRN 09/04/20 12/22/20 History Ensure Complete 1 can PO DAILY 12/22/20 12/22/20 History Fluticasone Propionate 220 Mcg 2 puff INHALATION RT-BID 12/22/20 12/22/20 History [Flovent 220 Mcg Inhaler (Mhu)] Lisdexamfetamine Dimesylate 40 mg PO DAILY 12/22/20 12/22/20 History [Vyvanse] Loratadine [Claritin] 10 mg PO DAILY 12/22/20 12/22/20 History Pnv,Calcium 72/Iron/Folic Acid 1 tab PO DAILY 12/22/20 12/22/20 History [ Plus Tablet] Allergies Allergy/AdvReac Type Severity Reaction Status Date / Time Iodinated Contrast Media Allergy Anaphylaxis Verified 12/22/20 08:50 [Iodinated Contrast Media - IV Dye] peanut Allergy Anaphylaxis Verified 12/22/20 08:50 Penicillins Allergy Anaphylaxis Verified 12/22/20 08:50 shellfish derived Allergy Anaphylaxis Verified 12/22/20 08:50 cephalexin monohydrate AdvReac Nausea & Verified 12/22/20 08:50 [From Keflex] Vomiting & Diarrhea trazodone AdvReac bp Verified 12/22/20 08:50 issues/dissiness--patient takes at home Physical Exam Vitals: Vital Signs Temp Pulse Resp BP Pulse Ox 12/22/20 01:00 78 18 122/78 98 12/21/20 23:00 18 12/21/20 22:38 98.3 F 74 16 138/81 98 Intake and Output 12/21/20 12/22/20 12/22/20 22:59 06:59 14:59 Other: Weight 119.748 kg Results CBC & Chem 7: 12/21/20 23:50 12/21/20 23:50 Labs: Abnormal Lab Results - Last 24 Hours (Table) 12/21/20 12/21/20 Range/Units 23:50 23:50 WBC 18.5 H (3.8-10.6) k/uL RDW 15.9 H (11.5-15.5) % Neutrophils # 13.6 H (1.3-7.7) k/uL Chloride 108 H (98-107) mmol/L Carbon Dioxide 21 L (22-30) mmol/L Glucose 115 H (74-99) mg/dL Total Bilirubin <0.1 L (0.2-1.3) mg/dL
--- NOTE | 2020-12-22 13:29 | CONS ---
CONSULTATION CHIEF COMPLAINT: Chest pain. Suyapa is a 40-year-old lady with prior history of chest pain, who presented to hospital complaining of chest discomfort. She follows with a pecan sheller in [place] and had most recently been in an other hospital in September of 2020. She has multiple medical problems including seizure disorder, schizophrenia, bipolar mood disorder, illicit drug use and diabetes. She comes in complaining of chest pain. It is sharp, mostly right-sided without any definite radiation to neck or back without clear-cut relieving or exacerbating factors. At the time of my evaluation, she appears comfortable at rest and is free of symptoms. The EKG shows sinus rhythm with right bundle branch block. LABS: Show a hemoglobin of 13.1, potassium is 4.1 creatinine is 0.9. Three sets of troponins are negative and the coronavirus is negative. PAST MEDICAL HISTORY: Significant for insulin-requiring diabetes, prior atypical chest pain. MEDICATIONS AT HOME: Include Motrin, insulin, Lamictal, Singulair, Protonix, MiraLax, Desyrel. ALLERGIES: She has multiple drug allergies including IV DYE, PEANUT, PENICILLIN, SHELLFISH, TRAZODONE, AND KEFLEX. FAMILY HISTORY: Negative for premature coronary artery disease. SOCIAL HISTORY: Significant for smoking and there is history of illicit drug abuse. REVIEW OF SYSTEMS: HEENT is unremarkable. CARDIAC: As described above. RESPIRATORY: Negative. GI: Negative GENITOURINARY: Negative. ALLERGY/IMMUNOLOGY: Negative. SKIN: Negative. MUSCULOSKELETAL: Significant for musculoskeletal pain. PSYCHOSOCIAL: Negative. ENDOCRINE: Negative. DERM: Negative. CONSTITUTIONAL: Negative. ONCOLOGICAL: Negative. ALGEBRA TUTOR: Negative. Rest of the system review is not relevant. EXAM: Patient is comfortable at rest. Vital signs are stable. There is no jugular venous distention. Carotid upstroke is normal. There is no bruit. Chest exam reveals good air entry bilaterally. Heart exam reveals first and second heart sounds. No gallop. No murmur. No rub. Abdomen is soft, nontender. Examination of extremities did not reveal any edema. Peripheral pulses are felt. ALGEBRA TUTOR exam did not reveal focal neurological deficits. ASSESSMENT: Atypical chest pain. PLAN: I will obtain a stress test on her tomorrow. If this is normal she can be discharged home and outpatient followup arranged through her own pecan sheller. MMODL / IJN: [id number] /
[2020-12-22] MEDS: NICOTINE 14MG/24HR PATCH TRANSDERM SCH (13:37)
[2020-12-22] MEDS: hydrOXYzine pamoate 25 MG CAP PO SCH ×2 (16:11→21:14)
[2020-12-22] MEDS ORDERED: INSULIN ASPART (NovoLOG) 100 UNIT/ML VIAL SQ SCH (17:30)
[2020-12-22] MEDS: FLUTICASONE 220 MCG INHALER INHALATION SCH (19:36)
[2020-12-22] MEDS ORDERED: MONTELUKAST 10 MG TAB PO SCH (21:00)
[2020-12-22] MEDS: ZONISAMIDE 100 MG CAP PO SCH (21:14)
[2020-12-23 03:23] VITALS: TEMP 97.7
[2020-12-23] MEDS ORDERED: DOBUTamine DRIP for NUC MED 500 MG in DEXTROSE/WATER 1 250ML.BAG IV PRN (06:00)
[2020-12-23 07:22] VITALS: BP 131/66; RESP 16
[2020-12-23] MEDS ORDERED: PANTOPRAZOLE 40 MG TABLET PO SCH (07:30)
[2020-12-23] MEDS: FLUTICASONE 220 MCG INHALER INHALATION SCH (07:34)
[2020-12-23 08:02] VITALS: PULSE 52
[2020-12-23] MEDS ORDERED: lamoTRIgine 100 MG TAB PO SCH (09:00)
[2020-12-23] MEDS ORDERED: FLUTICASONE 50MCG/SPRAY NASAL 16GM EA NOSTRIL SCH (09:00)
[2020-12-23] MEDS ORDERED: FAMOTIDINE 20 MG TAB PO SCH (09:00)
[2020-12-23] MEDS ORDERED: LORATADINE 10 MG TAB PO SCH (09:00)
[2020-12-23] MEDS ORDERED: NON FORMULARY DRUG (Lisdexamfetamine Dimesylate [Vyvanse] 40 MG Capsule) PO SCH (09:00)
[2020-12-23] MEDS ORDERED: allopurinoL 100 MG TAB PO SCH (09:00)
[2020-12-23] MEDS ORDERED: ASPIRIN 325 MG TAB PO SCH (09:00)
[2020-12-23] MEDS ORDERED: ASPIRIN 81 MG PO SCH (09:00)
[2020-12-23 11:16] LABS: Chol/HDL Ratio 3.68; LDL Cholesterol,Calculated 79.2 mg/dL (0.0-131.0); VLDL Calculation 38.8 mg/dL (5.00-40.00)
[2020-12-23] MEDS: DULoxetine HCL 60 MG CAPSULE.DR PO SCH (11:49)
[2020-12-23] MEDS: hydrOXYzine pamoate 25 MG CAP PO SCH (11:49)
[2020-12-23] MEDS: NALTREXONE HCL 50 MG TAB PO SCH (11:50)
[2020-12-23] MEDS: NICOTINE 14MG/24HR PATCH TRANSDERM SCH (11:50)
[2020-12-23] MEDS: ZONISAMIDE 100 MG CAP PO SCH (11:50)
--- NOTE | 2020-12-23 12:06 | P.PN ---
Subjective This is a 40-year-old female past medical history of seizure disorder, type 2 diabetes, gout, schizophrenia, bipolar, COPD, hypertension (not on medications), illicit drug use in the past, tobacco dependence. Patient follows with a facilities plant engineer in [place]. Patient presents emergency department complaining of midsternal chest pain. Troponin negative 3. EKG sinus rhythm with right bundle branch block. Patient was set up for a dobutamine stress echo today. Patient seen and examined at bedside, no acute distress. Blood pressure 131/66 heart rate 52 afebrile and maintaining oxygen saturation 99% on room air. Telemetry reviewed patient sinus mechanism heart rate 50-60s Patient is currently maintained on aspirin 81 mg daily PHYSICAL EXAMINATION CONSTITUTIONAL: No apparent distress. HEENT: No JVD. CHEST EXAMINATION: Lungs are clear to auscultation. No chest wall tenderness is noted on palpation or with deep breathing. HEART EXAMINATION: Regular rate and rhythm. S1, S2 heard. No murmurs, gallops or rub. ABDOMEN: Soft, nontender. Positive bowel sounds. EXTREMITIES: 2+ peripheral pulses, no lower extremity edema and no calf tenderne ss. SKIN: NEUROLOGIC EXAMINATION: Patient is awake, alert and oriented x3. ASSESSMENT Chest pain, atypical acute coronary syndrome has been ruled out. EKG with no evidence of ischemia. Negative cardiac enzymes 3 History of Hypertension Type 2 diabetes History of Illicit drug use Chronic nicotine dependence History of seizure disorder History of schizophrenia, bipolar COPD PLAN An acute coronary event has been ruled out with no EKG evidence of ischemia and negative cardiac enzymes. Perform [place] stress echo test to assess for stress induced cardiac ischemia. If dobutamine stress Echo test is negative okay to discharge patient from cardiology perspective. If abnormal will consider further investigation Smoking cessation discussed and highly recommended. Follow up with Her primary facilities plant engineer Thank you kindly for this consultation. Nurse Practitioner note has been reviewed, I agree with a documented findings and plan of care. Patient was seen and examined. Objective - Vital Signs Vital signs: Vital Signs Temp 97.7 F 12/23/20 07:00 Pulse 52 L 12/23/20 08:00 Resp 16 12/23/20 08:00 BP 131/66 12/23/20 07:00 Pulse Ox 99 12/23/20 07:00 Intake & Output 05/23/21 05/24/21 05/24/21 18:59 06:59 18:59 Intake Total 436 Balance 436 Weight 119.748 kg 119.75 kg Intake: Oral 436 Other: Voiding Method Toilet Toilet # Voids 1 1 - Labs CBC & Chem 7: 12/21/20 23:50 12/21/20 23:50 Labs: Abnormal Lab Results - Last 24 Hours (Table) 12/23/20 Range/Units 06:21 Triglycerides 194.0 H (0.0-149.0) mg/dL
--- NOTE | 2020-12-23 12:40 | P.STRESS ---
- Stress Test Note Stress Test Results/Findings: Exam Performed: dobutamine stress echo with con Exam Date: 12/23/20 Reason for Exam: Chest Pain Height: 5 ft 5 in Weight: 119.75 kg Protocol: Dobutamine Stage: 30 Duration of Exercise: 10:46 Resting Heart Rate: 54 Resting Blood Pressure: 142/73 Maximum Achieved Heart Rate: 95 Maximum Achieved Blood Pressure: 181/60 85% PMHR: 152 100% PMHR: 179 METS: na Technologist Comment: Stress Test Results/Findings: Baseline heart rate 54 beats a minute, Baseline blood pressure 142/73 mmHg Baseline twelve-lead ECG shows a right bundle branch block pattern the left anterior fascicular block normal ST segments Patient received dobutamine infusion per protocol Peak heart rate of 117 beats a minute Normal blood pressure response There was no ECG ms for ischemia Occasional PVCs noted Baseline 2-D echo images were suboptimal Definity contrast was used to delineate the LV endocardial borders Baseline LV systolic function normal With dobutamine there was excellent augmentation of overall LV contractility, without development of any wall motion amenities At recovery regional global LV systolic function in normal Impression Abnormal twelve-lead EKG with a right bundle branch block left anterior fascicular block but without any ST segment changes With dobutamine infusion there were no ECG or echocardiographic evidence for ischemia
--- NOTE | 2020-12-23 12:43 | P.DS ---
Providers Date of admission: 12/22/20 00:54 Expected date of discharge: 12/23/20 Attending physician: Maximiliano Tanner Consults: 12/22/20 00:54 Consult Physician Urgent Consulting Provider: Jayla Stack Consult Reason/Comments: cp Do you want consulting provider notified?: Yes Primary care physician: [facility] Course: HISTORY OF PRESENT ILLNESS This is a 40-year-old female patient of [facility] as well as Dr. Rao psychiatrist and Dr. DIXIE Piper with past medical history significant for gestational diabetes mellitus, seizure disorder, chronic gout, schizophrenia, bipolar, COPD, hypertension, and illicit drug use in the past, tobacco use and dependence. Patient presented complaining of midsternal chest pain occurred when she was walking but also occurs when she is laying down. When she doesn't move that makes it better. She states she's had a little nausea. Complains of wheezing. No numbness or tingling. No shortness of breath. She states she has received 1/2 of the Covid vaccine. Patient has been afebrile, heart rate 74, blood pressure 138/81, pulse ox 90% on room air. EKG is a sinus rhythm with a right bundle branch block and left anterior fascicular block. Chest x-ray reveals normal chest. Lab work revealed troponin negative on 3 draws. WBC 18.5, hemoglobin 13.1, platelet count 241. Sodium 138, potassium 4.1, chloride 108, CO2 21, BUN 15 creatinine 0.9. Blood sugar 115. Troponin negative on 3 draws. Coronavirus not detected. Patient placed on the observation unit and consult with cardiology. Regarding seizures, patient states she had her last seizure about 3-4 days ago and follows with Dr. Moreno. 12/23: Patient denies having any chest pain or shortness of breath. No lighth eadedness or dizziness. Patient has been set up for dobutamine stress echo today with cardiology which came back negative. She has been afebrile, heart rate 52, blood pressure 131/66, pulse ox 99% on room air. Patient will be discharged home today in stable condition. ASSESSMENT AND PLAN 1. Chest pain with negative troponins. 2. COPD without exacerbation. 3. Chronic gout. 4. Hypertension. 5. Seizure disorder. 6. Schizophrenia. 7. History of opioid dependence. 8. Seasonal ALLERGIES. 9. Tobacco use and dependence. 10. History of gestational diabetes. 11. COVID-19 testing negative. Patient has been hospitalized during a pandemic. DISCHARGE PLAN Home. Impression and plan of care have been directed as dictated by the signing physician. Liz Reid nurse practitioner acting as scribe for signing physician. Patient Condition at Discharge: Good Plan - Discharge Summary Discharge Rx Participant: No New Discharge Prescriptions: New Nicotine 14Mg/24Hr Patch [Habitrol] 1 patch TRANSDERM DAILY #30 patch Continue Fluticasone Nasal [place] [Flonase Nasal [place]] 1 spray EA NOSTRIL DAILY Zonisamide [Zonegran] 300 mg PO BID allopurinoL [Zyloprim] 100 mg PO DAILY Montelukast [Singulair] 10 mg PO HS Cholecalciferol [Vitamin D3 (25 Mcg = 1000 Iu)] 5,000 unit PO DAILY Omeprazole 20 mg PO DAILY DULoxetine HCL [Cymbalta] 60 mg PO DAILY 30 Days capsule. Docusate [Colace] 100 mg PO BID PRN 30 Days cap PRN Reason: Constipation Aspirin EC [Ecotrin Low Dose] 81 mg PO DAILY hydrOXYzine pamoate [Vistaril] 25 mg PO TID Naltrexone HCl [Revia] 50 mg PO DAILY ARIPiprazole [Abilify Maintena] 400 mg IM Q28D calcium polycarbophiL [Fibercon] 1,250 mg PO BID PRN PRN Reason: Constipation Ibuprofen [Motrin] 400 mg PO BID PRN PRN Reason: Pain lamoTRIgine [LaMICtal] 200 mg PO DAILY Polyethylene Glycol 3350 [Miralax] 17 gm PO DAILY PRN PRN Reason: Constipation Lisdexamfetamine Dimesylate [Vyvanse] 40 mg PO DAILY Loratadine [Claritin] 10 mg PO DAILY Pnv,Calcium 72/Iron/Folic Acid [ Plus Tablet] 1 tab PO DAILY Fluticasone Propionate 220 Mcg [Flovent 220 Mcg Inhaler (Mhu)] 2 puff INHALATION RT-BID Ensure Complete 1 can PO DAILY Discontinued INSULIN LISPRO (humaLOG) [humaLOG] 20 units SQ AC-BID traZODone HCL [Desyrel] 100 mg PO HS PRN PRN Reason: Insomnia Discharge Medication List Fluticasone Nasal [place] [Flonase Nasal [place]] 1 spray EA NOSTRIL DAILY 12/16/18 [History] Zonisamide [Zonegran] 300 mg PO BID 12/16/18 [History] Cholecalciferol [Vitamin D3 (25 Mcg = 1000 Iu)] 5,000 unit PO DAILY 12/16/19 [History] Montelukast [Singulair] 10 mg PO HS 12/16/19 [History] Omeprazole 20 mg PO DAILY 12/16/19 [History] allopurinoL [Zyloprim] 100 mg PO DAILY 12/16/19 [History] DULoxetine HCL [Cymbalta] 60 mg PO DAILY 30 Days capsule. 03/08/20 [Rx] Docusate [Colace] 100 mg PO BID PRN 30 Days cap 03/08/20 [Rx] Aspirin EC [Ecotrin Low Dose] 81 mg PO DAILY 04/12/20 [History] Naltrexone HCl [Revia] 50 mg PO DAILY 04/12/20 [History] hydrOXYzine pamoate [Vistaril] 25 mg PO TID 04/12/20 [History] ARIPiprazole [Abilify Maintena] 400 mg IM Q28D 09/04/20 [History] Ibuprofen [Motrin] 400 mg PO BID PRN 09/04/20 [History] Polyethylene Glycol 3350 [Miralax] 17 gm PO DAILY PRN 09/04/20 [History] calcium polycarbophiL [Fibercon] 1,250 mg PO BID PRN 09/04/20 [History] lamoTRIgine [LaMICtal] 200 mg PO DAILY 09/04/20 [History] Ensure Complete 1 can PO DAILY 12/22/20 [History] Fluticasone Propionate 220 Mcg [Flovent 220 Mcg Inhaler (Mhu)] 2 puff INHALATION RT-BID 12/22/20 [History] Lisdexamfetamine Dimesylate [Vyvanse] 40 mg PO DAILY 12/22/20 [History] Loratadine [Claritin] 10 mg PO DAILY 12/22/20 [History] Pnv,Calcium 72/Iron/Folic Acid [ Plus Tablet] 1 tab PO DAILY 12/22/20 [History] Nicotine 14Mg/24Hr Patch [Habitrol] 1 patch TRANSDERM DAILY #30 patch 12/23/20 [Rx] Follow up Appointment(s)/Referral(s): [facility] [Primary Care Provider] - 1 Week Sanjay Piper MD [STAFF PHYSICIAN] - 2 Weeks Discharge Disposition: HOME SELF-CARE
== END 2020-12-23 13:44 | disposition home or self-care (01) ==
LOC: EC 22:32 → 6NMEDSUR 12-22 00:54
PROVIDERS: ADMIT Internal Medicine Geriatric Medicine; ATTEND Internal Medicine Geriatric Medicine
DX: R07.89 Other chest pain (principal); R07.2 Precordial pain; J44.9 Chronic obstructive pulmonary disease, unspecified; M1A.9XX0 Chronic gout, unspecified, without tophus (tophi); I11.0 Hypertensive heart disease with heart failure; I50.9 Heart failure, unspecified; G40.909 Epilepsy, unspecified, not intractable, without status epilepticus; J30.2 Other seasonal allergic rhinitis; F17.200 Nicotine dependence, unspecified, uncomplicated; F19.90 Other psychoactive substance use, unspecified, uncomplicated; F20.9 Schizophrenia, unspecified; F31.9 Bipolar disorder, unspecified; R11.0 Nausea; I45.2 Bifascicular block; E11.9 Type 2 diabetes mellitus without complications; E66.01 Morbid (severe) obesity due to excess calories; Z68.41 Body mass index [BMI] 40.0-44.9, adult; M79.7 Fibromyalgia; M19.90 Unspecified osteoarthritis, unspecified site; D57.3 Sickle-cell trait; K74.60 Unspecified cirrhosis of liver; D64.9 Anemia, unspecified; K59.00 Constipation, unspecified; K58.9 Irritable bowel syndrome, unspecified; G43.909 Migraine, unspecified, not intractable, without status migrainosus; G89.29 Other chronic pain; M54.2 Cervicalgia; M54.5 Low back pain; F41.9 Anxiety disorder, unspecified; Z20.822 Contact with and (suspected) exposure to COVID-19; Z91.041 Radiographic dye allergy status; Z79.4 Long term (current) use of insulin; Z88.8 Allergy status to other drugs, medicaments and biological substances; Z88.1 Allergy status to other antibiotic agents; Z91.010 Allergy to peanuts; Z88.0 Allergy status to penicillin; Z91.013 Allergy to seafood; Z79.82 Long term (current) use of aspirin; Z79.899 Other long term (current) drug therapy; Z86.32 Personal history of gestational diabetes; Z87.19 Personal history of other diseases of the digestive system; Z87.01 Personal history of pneumonia (recurrent); Z87.09 Personal history of other diseases of the respiratory system; Z90.49 Acquired absence of other specified parts of digestive tract; Z90.721 Acquired absence of ovaries, unilateral; Z80.0 Family history of malignant neoplasm of digestive organs; Z80.3 Family history of malignant neoplasm of breast; Z81.8 Family history of other mental and behavioral disorders; Z80.8 Family history of malignant neoplasm of other organs or systems
CPT/HCPCS: 93005 ×2; 99285; 36415; 94640; 93351; 83880; 80061; 80053; 82550; 83735; 84484 ×2; 85025; 85610; 85730; 87635; 71046; G0378 ×2; Q9950

== ENCOUNTER 2021-07-18 09:11 | Emergency (ER) | payer OTHER ==
[2021-07-18 09:15] VITALS: BP 164/83; PULSE 77; RESP 18; TEMP 99
--- NOTE | 2021-07-18 10:02 | ED ---
General Adult HPI - General Chief complaint: Headache Stated complaint: Facial Pain Time Seen by Provider: 07/18/21 09:56 Source: patient, RN notes reviewed Mode of arrival: ambulatory Limitations: no limitations - History of Present Illness Initial comments: 41-year-old female presents emergency Department with chief complaint of swelling to her left mandibular region. She states started a few days ago. Patient states is painful she feels that something is building up in her cheek, jaw region. She states she has no teeth on her denies any fevers chills no difficulty swallowing or difficulty breathing. - Related Data Home Medications Medication Instructions Recorded Confirmed Fluticasone Nasal [place] [Flonase 1 spray EA NOSTRIL DAILY 12/16/18 12/22/20 Nasal [place]] Zonisamide [Zonegran] 300 mg PO BID 12/16/18 12/22/20 Cholecalciferol [Vitamin D3 (25 5,000 unit PO DAILY 12/16/19 12/22/20 Mcg = 1000 Iu)] Montelukast [Singulair] 10 mg PO HS 12/16/19 12/22/20 Omeprazole 20 mg PO DAILY 12/16/19 12/22/20 allopurinoL [Zyloprim] 100 mg PO DAILY 12/16/19 12/22/20 Aspirin EC [Ecotrin Low Dose] 81 mg PO DAILY 04/12/20 12/22/20 Naltrexone HCl [Revia] 50 mg PO DAILY 04/12/20 12/22/20 hydrOXYzine pamoate [Vistaril] 25 mg PO TID 04/12/20 12/22/20 ARIPiprazole [Abilify Maintena] 400 mg IM Q28D 09/04/20 12/22/20 Ibuprofen [Motrin] 400 mg PO BID PRN 09/04/20 12/22/20 Polyethylene Glycol 3350 [Miralax] 17 gm PO DAILY PRN 09/04/20 12/22/20 calcium polycarbophiL [Fibercon] 1,250 mg PO BID PRN 09/04/20 12/22/20 lamoTRIgine [LaMICtal] 200 mg PO DAILY 09/04/20 12/22/20 Ensure Complete 1 can PO DAILY 12/22/20 12/22/20 Fluticasone Propionate 220 Mcg 2 puff INHALATION RT-BID 12/22/20 12/22/20 [Flovent 220 Mcg Inhaler (Mhu)] Lisdexamfetamine Dimesylate 40 mg PO DAILY 12/22/20 12/22/20 [Vyvanse] Loratadine [Claritin] 10 mg PO DAILY 12/22/20 12/22/20 Pnv,Calcium 72/Iron/Folic Acid 1 tab PO DAILY 12/22/20 12/22/20 [ Plus Tablet] Previous Rx's Medication Instructions Recorded DULoxetine HCL [Cymbalta] 60 mg PO DAILY 30 Days capsule. 03/08/20 Docusate [Colace] 100 mg PO BID PRN 30 Days cap 03/08/20 Nicotine 14Mg/24Hr Patch [Habitrol] 1 patch TRANSDERM DAILY #30 patch 12/23/20 Clindamycin HCl 300 mg PO Q6HR #40 cap 07/18/21 Allergies Allergy/AdvReac Type Severity Reaction Status Date / Time Iodinated Contrast Media Allergy Anaphylaxis Verified 07/18/21 09:15 [Iodinated Contrast Media - IV Dye] peanut Allergy Anaphylaxis Verified 07/18/21 09:15 Penicillins Allergy Anaphylaxis Verified 07/18/21 09:15 shellfish derived Allergy Anaphylaxis Verified 07/18/21 09:15 cephalexin monohydrate AdvReac Nausea & Verified 07/18/21 09:15 [From Keflex] Vomiting & Diarrhea trazodone AdvReac bp Verified 07/18/21 09:15 issues/dissiness--patient takes at home Review of Systems ROS Statement: Those systems with pertinent positive or pertinent negative responses have been documented in the HPI. ROS Other: All systems not noted in ROS Statement are negative. Past Medical History Past Medical History: Asthma, Heart Failure, COPD, Fibromyalgia, GERD/Reflux, GI Bleed, Hypertension, Liver Disease, Osteoarthritis (OA), Pneumonia, Seizure Disorder, Skin Disorder Additional Past Medical History / Comment(s): Bronchitis, gestational diabetes, seizures with last one 09/03/20, sickle cell trait, liver cirrhosis, anemia, chrons, IBS, ulcerative colitis, lowr GI bleed, hemorrhoids, constipation, psoriasis, migraines, chronic low back and cervical pain, scoliosis, arhtritis in multiple joints, gout bilateral feet, History of Any Multi-Drug Resistant Organisms: None Reported Past Surgical History: Cholecystectomy, Orthopedic Surgery Additional Past Surgical History / Comment(s): L oophorectomy d/t cyst, D&C, col onoscopy, L carpal tunnel release, Past Anesthesia/Blood Transfusion Reactions: Motion Sickness, Postoperative Nausea & Vomiting (PONV) Past Psychological History: Anxiety, Bipolar, Depression, Schizophrenia Smoking Status: Former smoker Past Alcohol Use History: None Reported Past Drug Use History: None Reported - Past Family History Mother History Unknown: Yes Family Medical History: Cancer Additional Family Medical History / Comment(s): Mother had breast cancer and metnal illness She is living. Father Family Medical History: Cancer Additional Family Medical History / Comment(s): Father is . He had agent orange exposure. He had liver cancer, bowel to brain cancer. General Exam Limitations: no limitations General appearance: alert, in no apparent distress Head exam: Present: atraumatic, normocephalic, normal inspection Eye exam: Present: normal appearance, PERRL, EOMI. Absent: scleral icterus, conjunctival injection, periorbital swelling ENT exam: Present: mucous membranes moist, TM's normal bilaterally. Absent: normal oropharynx (Mild left submandibular swelling region) Neck exam: Present: normal inspection, full ROM. Absent: tenderness, meningismus, lymphadenopathy Respiratory exam: Present: normal lung sounds bilaterally. Absent: respiratory distress, wheezes, rales, rhonchi, stridor Cardiovascular Exam: Present: regular rate, normal rhythm, normal heart sounds. Absent: systolic murmur, diastolic murmur, rubs, gallop, clicks Course Vital Signs 07/18/21 09:13 Temperature 99.0 F Pulse Rate 77 Respiratory 18 Rate Blood Pressure 164/83 O2 Sat by Pulse 97 Oximetry Medical Decision Making - Medical Decision Making Patient has some mild swelling in her submandibular region to his history related to sialoadenitis. Patient will be placed on clindamycin as she has a penicillin ALLERGY we did discuss use of sour candies use and return parameters. Disposition Clinical Impression: Sialoadenitis Disposition: HOME SELF-CARE Condition: Stable Instructions (If sedation given, give patient instructions): Sialoadenitis (ED) Additional Instructions: Please return to the Emergency Department if symptoms worsen or any other concerns. Prescriptions: Clindamycin HCl 300 mg PO Q6HR #40 cap Is patient prescribed a controlled substance at d/c from ED?: No Referrals: [facility] [Primary Care Provider] - 1-2 days Time of Disposition: 10:02
== END 2021-07-18 10:06 | disposition home or self-care (01) ==
LOC: EC 09:11
DX: K11.20 Sialoadenitis, unspecified (principal); I11.0 Hypertensive heart disease with heart failure; I50.9 Heart failure, unspecified; J45.909 Unspecified asthma, uncomplicated; M79.7 Fibromyalgia; K21.9 Gastro-esophageal reflux disease without esophagitis; M19.90 Unspecified osteoarthritis, unspecified site; F41.9 Anxiety disorder, unspecified; F31.9 Bipolar disorder, unspecified; F25.9 Schizoaffective disorder, unspecified; Z79.82 Long term (current) use of aspirin; Z88.0 Allergy status to penicillin; Z88.1 Allergy status to other antibiotic agents; Z90.49 Acquired absence of other specified parts of digestive tract; Z87.891 Personal history of nicotine dependence
CPT/HCPCS: 99283

== ENCOUNTER 2021-08-18 09:09 | Emergency (ER) | payer OTHER ==
[2021-08-18 09:14] VITALS: BP 114/62; PULSE 74; RESP 18; TEMP 98.2
--- NOTE | 2021-08-18 09:43 | ED ---
Skin/Abscess/FB HPI - General Chief complaint: Skin/Abscess/Foreign Body Stated complaint: Lt Hand Infection Time Seen by Provider: 08/18/21 09:27 Source: patient, family, RN notes reviewed Mode of arrival: ambulatory Limitations: no limitations - History of Present Illness Initial comments: Pleasant 41-year-old female presents [place], complaining of a reddened area with purulent drainage from the distal aspect of her left middle finger. Patient states his been going on for a few days. Is mild pain to the area. Patient has no history of immunosuppression or diabetes. Patient states she did clipper fingernails and believes she cut the back too far. MRSA. Patient denies any other symptomology. No headache, no fever or chills, no changes in vision or hearing, no sore throat or difficulty with speech, no neck pain, no chest pain or shortness of breath, no abdominal pain, no nausea or vomiting, no changes in urination or bowel movements, no numbness or tingling, no extremity pain, no skin rashes or lesions. - Related Data Home Medications Medication Instructions Recorded Confirmed Fluticasone Nasal [place] [Flonase 1 spray EA NOSTRIL DAILY 12/16/18 12/22/20 Nasal [place]] Zonisamide [Zonegran] 300 mg PO BID 12/16/18 12/22/20 Cholecalciferol [Vitamin D3 (25 5,000 unit PO DAILY 12/16/19 12/22/20 Mcg = 1000 Iu)] Montelukast [Singulair] 10 mg PO HS 12/16/19 12/22/20 Omeprazole 20 mg PO DAILY 12/16/19 12/22/20 allopurinoL [Zyloprim] 100 mg PO DAILY 12/16/19 12/22/20 Aspirin EC [Ecotrin Low Dose] 81 mg PO DAILY 04/12/20 12/22/20 Naltrexone HCl [Revia] 50 mg PO DAILY 04/12/20 12/22/20 hydrOXYzine pamoate [Vistaril] 25 mg PO TID 04/12/20 12/22/20 ARIPiprazole [Abilify Maintena] 400 mg IM Q28D 09/04/20 12/22/20 Ibuprofen [Motrin] 400 mg PO BID PRN 09/04/20 12/22/20 Polyethylene Glycol 3350 [Miralax] 17 gm PO DAILY PRN 09/04/20 12/22/20 calcium polycarbophiL [Fibercon] 1,250 mg PO BID PRN 09/04/20 12/22/20 lamoTRIgine [LaMICtal] 200 mg PO DAILY 09/04/20 12/22/20 Ensure Complete 1 can PO DAILY 12/22/20 12/22/20 Fluticasone Propionate 220 Mcg 2 puff INHALATION RT-BID 12/22/20 12/22/20 [Flovent 220 Mcg Inhaler (Mhu)] Lisdexamfetamine Dimesylate 40 mg PO DAILY 12/22/20 12/22/20 [Vyvanse] Loratadine [Claritin] 10 mg PO DAILY 12/22/20 12/22/20 Pnv,Calcium 72/Iron/Folic Acid 1 tab PO DAILY 12/22/20 12/22/20 [ Plus Tablet] Previous Rx's Medication Instructions Recorded DULoxetine HCL [Cymbalta] 60 mg PO DAILY 30 Days capsule. 03/08/20 Docusate [Colace] 100 mg PO BID PRN 30 Days cap 03/08/20 Nicotine 14Mg/24Hr Patch [Habitrol] 1 patch TRANSDERM DAILY #30 patch 12/23/20 Clindamycin HCl 300 mg PO Q6HR #40 cap 07/18/21 Acetaminophen [Tylenol] 500 mg PO Q4-6H PRN #24 tab 08/18/21 Acetaminophen-Codeine 300-30mg 1 each PO Q4H PRN #20 tablet 08/18/21 [Tylenol w/codeine #3] Neomycin/Bacitracin/Polymyxinb 1 applic TOPICAL DAILY #30 gm 08/18/21 [Neosporin Ointment] Neomycin/Bacitracin/Polymyxinb 1 applic TOPICAL DAILY #30 gm 08/18/21 [Neosporin Ointment] Sulfamethox-Tmp 800-160Mg [Bactrim 1 tab PO Q12HR #20 tab 08/18/21 DS 800-160 mg] Sulfamethox-Tmp 800-160Mg [Bactrim 1 tab PO Q12HR #20 tab 08/18/21 DS 800-160 mg] Allergies Allergy/AdvReac Type Severity Reaction Status Date / Time Iodinated Contrast Media Allergy Anaphylaxis Verified 08/18/21 09:14 [Iodinated Contrast Media - IV Dye] peanut Allergy Anaphylaxis Verified 08/18/21 09:14 Penicillins Allergy Anaphylaxis Verified 08/18/21 09:14 shellfish derived Allergy Anaphylaxis Verified 08/18/21 09:14 cephalexin monohydrate AdvReac Nausea & Verified 08/18/21 09:14 [From Keflex] Vomiting & Diarrhea trazodone AdvReac bp Verified 08/18/21 09:14 issues/dissiness--patient takes at home Review of Systems ROS Statement: Those systems with pertinent positive or pertinent negative responses have been documented in the HPI. ROS Other: All systems not noted in ROS Statement are negative. Past Medical History Past Medical History: Asthma, Heart Failure, COPD, Fibromyalgia, GERD/Reflux, GI Bleed, Hypertension, Liver Disease, Osteoarthritis (OA), Pneumonia, Seizure Disorder, Skin Disorder Additional Past Medical History / Comment(s): Bronchitis, gestational diabetes, seizures with last one 09/03/20, sickle cell trait, liver cirrhosis, anemia, chrons, IBS, ulcerative colitis, lowr GI bleed, hemorrhoids, constipation, psoriasis, migraines, chronic low back and cervical pain, scoliosis, arhtritis in multiple joints, gout bilateral feet, History of Any Multi-Drug Resistant Organisms: None Reported Past Surgical History: Cholecystectomy, Orthopedic Surgery Additional Past Surgical History / Comment(s): L oophorectomy d/t cyst, D&C, colonoscopy, L carpal tunnel release, Past Anesthesia/Blood Transfusion Reactions: Motion Sickness, Postoperative Nausea & Vomiting (PONV) Past Psychological History: Anxiety, Bipolar, Depression, Schizophrenia Smoking Status: Former smoker Past Alcohol Use History: None Reported Past Drug Use History: None Reported - Past Family History Mother History Unknown: Yes Family Medical History: Cancer Additional Family Medical History / Comment(s): Mother had breast cancer and metnal illness She is living. Father Family Medical History: Cancer Additional Family Medical History / Comment(s): Father is . He had agent orange exposure. He had liver cancer, bowel to brain cancer. General Exam - General Exam Comments Initial Comments: Obese female no acute distress. Patient does not appear to be ill or toxic. Limitations: no limitations General appearance: alert, in no apparent distress Head exam: Present: atraumatic, normocephalic, normal inspection Eye exam: Present: normal appearance, EOMI ENT exam: Present: normal exam Neck exam: Present: normal inspection. Absent: tenderness, meningismus, lymphadenopathy Respiratory exam: Present: normal lung sounds bilaterally. Absent: respiratory distress, wheezes, rales, rhonchi, stridor Cardiovascular Exam: Present: regular rate, normal rhythm, normal heart sounds. Absent: systolic murmur, diastolic murmur, rubs, gallop, clicks Neurological exam: Present: alert, oriented X3, CN II-XII intact Psychiatric exam: Present: normal affect, normal mood Skin exam: Present: warm, erythema, other (Patient has erythematous area to the eponychial fold of the left middle finger consistent with a paronychia. There is purulent drainage from the area. No lymphangitis. No tenderness at the flexor tendon. Full range of motion. Sensation intact. His face infection. No vesicles or lesions.). Absent: rash, cyanosis, diaphoretic, urticaria, vesicles, petechiae, pallor, mottled, abrasion Course Vital Signs 08/18/21 09:11 Temperature 98.2 F Pulse Rate 74 Respiratory 18 Rate Blood Pressure 114/62 O2 Sat by Pulse 98 Oximetry Medical Decision Making - Medical Decision Making Will treat the patient with warm compresses, Bactrim DS twice daily and follow- up. Patient was instructed on nail cutting. Patient was instructed on treatment plan. All questions answered. Patient was told to return to the ER for any signs or symptoms worsen. Told to return immediately if any other problems arise. All questions answered. Treatment plan discussed. Patient in agreement Supervising physician, Dr. Gore Disposition Clinical Impression: Paronychia of left middle finger Disposition: HOME SELF-CARE Condition: Stable Instructions (If sedation given, give patient instructions): Abscess (ED) Additional Instructions: Apply warm compresses to the effected area 4-6 times daily. Use a warm washcloth with soap and water. Apply for 10-15 minutes at a time. Take antibiotic as directed. Apply antibiotic ointment in between. Use tripped on chronic ointment or Neosporin. Follow-up with your regular physician as directed. Return to the ER immediately if any symptoms worsen, new symptoms arise, or any other problems develop. Prescriptions: Sulfamethox-Tmp 800-160Mg [Bactrim DS 800-160 mg] 1 tab PO Q12HR #20 tab Neomycin/Bacitracin/Polymyxinb [Neosporin Ointment] 1 applic TOPICAL DAILY #30 gm Acetaminophen-Codeine 300-30mg [Tylenol w/codeine #3] 1 each PO Q4H PRN #20 tablet PRN Reason: Pain Is patient prescribed a controlled substance at d/c from ED?: No Referrals: Jasmyn Kaplan [facility] [Nurse Practitioner] - 1-2 days Time of Disposition: 09:38
== END 2021-08-18 09:49 | disposition home or self-care (01) ==
LOC: EC 09:09
DX: L03.012 Cellulitis of left finger (principal); I11.0 Hypertensive heart disease with heart failure; I50.9 Heart failure, unspecified; J44.9 Chronic obstructive pulmonary disease, unspecified; K21.9 Gastro-esophageal reflux disease without esophagitis; M19.90 Unspecified osteoarthritis, unspecified site; G40.909 Epilepsy, unspecified, not intractable, without status epilepticus; M41.9 Scoliosis, unspecified; G43.909 Migraine, unspecified, not intractable, without status migrainosus; F41.9 Anxiety disorder, unspecified; F31.9 Bipolar disorder, unspecified; F20.9 Schizophrenia, unspecified; Z87.891 Personal history of nicotine dependence; Z87.39 Personal history of other diseases of the musculoskeletal system and connective tissue; Z79.82 Long term (current) use of aspirin; Z79.51 Long term (current) use of inhaled steroids
CPT/HCPCS: 99283

== ENCOUNTER 2021-11-29 12:15 | Emergency (ER) | payer OTHER ==
[2021-11-29 12:25] VITALS: BP 116/78; PULSE 71; RESP 18; TEMP 97.4
[2021-11-29] MEDS ORDERED: DIPH,PERTUS(ACELL)TETVAC-LF 0.5 ML VIAL IM ONE (13:20)
[2021-11-29] MEDS ORDERED: TOPICAL SKIN ADHESIVE 1 EACH AMP TOPICAL ONE (13:21)
--- NOTE | 2021-11-29 13:54 | ED ---
Wound/Laceration HPI - General Chief Complaint: Wound/Laceration Stated Complaint: finger lac Time Seen by Provider: 11/29/21 13:12 Source: patient Mode of arrival: ambulatory Limitations: no limitations - History of Present Illness Initial Comments: Patient is a 41-year-old female presents to the emergency department for evaluation of laceration. Patient states she caught her second and third right finger on a gravy can this morning. Patient denies numbness and tingling. Last tetanus was 8 years ago. She has no other concerns. - Related Data Home Medications Medication Instructions Recorded Confirmed Fluticasone Nasal [place] [Flonase 1 spray EA NOSTRIL DAILY 12/16/18 12/22/20 Nasal [place]] Zonisamide [Zonegran] 300 mg PO BID 12/16/18 12/22/20 Cholecalciferol [Vitamin D3 (25 5,000 unit PO DAILY 12/16/19 12/22/20 Mcg = 1000 Iu)] Montelukast [Singulair] 10 mg PO HS 12/16/19 12/22/20 Omeprazole 20 mg PO DAILY 12/16/19 12/22/20 allopurinoL [Zyloprim] 100 mg PO DAILY 12/16/19 12/22/20 Aspirin EC [Ecotrin Low Dose] 81 mg PO DAILY 04/12/20 12/22/20 Naltrexone HCl [Revia] 50 mg PO DAILY 04/12/20 12/22/20 hydrOXYzine pamoate [Vistaril] 25 mg PO TID 04/12/20 12/22/20 ARIPiprazole [Abilify Maintena] 400 mg IM Q28D 09/04/20 12/22/20 Ibuprofen [Motrin] 400 mg PO BID PRN 09/04/20 12/22/20 Polyethylene Glycol 3350 [Miralax] 17 gm PO DAILY PRN 09/04/20 12/22/20 calcium polycarbophiL [Fibercon] 1,250 mg PO BID PRN 09/04/20 12/22/20 lamoTRIgine [LaMICtal] 200 mg PO DAILY 09/04/20 12/22/20 Ensure Complete 1 can PO DAILY 12/22/20 12/22/20 Fluticasone Propionate 220 Mcg 2 puff INHALATION RT-BID 12/22/20 12/22/20 [Flovent 220 Mcg Inhaler (Mhu)] Lisdexamfetamine Dimesylate 40 mg PO DAILY 12/22/20 12/22/20 [Vyvanse] Loratadine [Claritin] 10 mg PO DAILY 12/22/20 12/22/20 Pnv,Calcium 72/Iron/Folic Acid 1 tab PO DAILY 12/22/20 12/22/20 [ Plus Tablet] Previous Rx's Medication Instructions Recorded DULoxetine HCL [Cymbalta] 60 mg PO DAILY 30 Days capsule. 03/08/20 Docusate [Colace] 100 mg PO BID PRN 30 Days cap 03/08/20 Nicotine 14Mg/24Hr Patch [Habitrol] 1 patch TRANSDERM DAILY #30 patch 12/23/20 Clindamycin HCl 300 mg PO Q6HR #40 cap 07/18/21 Acetaminophen [Tylenol] 500 mg PO Q4-6H PRN #24 tab 08/18/21 Acetaminophen-Codeine 300-30mg 1 each PO Q4H PRN #20 tablet 08/18/21 [Tylenol w/codeine #3] Neomycin/Bacitracin/Polymyxinb 1 applic TOPICAL DAILY #30 gm 08/18/21 [Neosporin Ointment] Neomycin/Bacitracin/Polymyxinb 1 applic TOPICAL DAILY #30 gm 08/18/21 [Neosporin Ointment] Sulfamethox-Tmp 800-160Mg [Bactrim 1 tab PO Q12HR #20 tab 08/18/21 DS 800-160 mg] Sulfamethox-Tmp 800-160Mg [Bactrim 1 tab PO Q12HR #20 tab 08/18/21 DS 800-160 mg] Allergies Allergy/AdvReac Type Severity Reaction Status Date / Time Iodinated Contrast Media Allergy Anaphylaxis Verified 11/29/21 12:22 [Iodinated Contrast Media - IV Dye] peanut Allergy Anaphylaxis Verified 11/29/21 12:22 Penicillins Allergy Anaphylaxis Verified 11/29/21 12:22 shellfish derived Allergy Anaphylaxis Verified 11/29/21 12:22 cephalexin monohydrate AdvReac Nausea & Verified 11/29/21 12:22 [From Keflex] Vomiting & Diarrhea trazodone AdvReac bp Verified 11/29/21 12:22 issues/dissiness--patient takes at home Review of Systems ROS Statement: Those systems with pertinent positive or pertinent negative responses have been documented in the HPI. ROS Other: All systems not noted in ROS Statement are negative. Past Medical History Past Medical History: Asthma, Heart Failure, COPD, Fibromyalgia, GERD/Reflux, GI Bleed, Hypertension, Liver Disease, Osteoarthritis (OA), Pneumonia, Seizure Disorder, Skin Disorder Additional Past Medical History / Comment(s): Bronchitis, gestational diabetes, seizures with last one 09/03/20, sickle cell trait, liver cirrhosis, anemia, chrons, IBS, ulcerative colitis, lowr GI bleed, hemorrhoids, constipation, psoriasis, migraines, chronic low back and cervical pain, scoliosis, arhtritis in multiple joints, gout bilateral feet, History of Any Multi-Drug Resistant Organisms: None Reported Past Surgical History: Cholecystectomy, Orthopedic Surgery Additional Past Surgical History / Comment(s): L oophorectomy d/t cyst, D&C, colonoscopy, L carpal tunnel release, Past Anesthesia/Blood Transfusion Reactions: Motion Sickness, Postoperative Nausea & Vomiting (PONV) Past Psychological History: Anxiety, Bipolar, Depression, Schizophrenia Smoking Status: Former smoker Past Alcohol Use History: None Reported Past Drug Use History: None Reported - Past Family History Mother History Unknown: Yes Family Medical History: Cancer Additional Family Medical History / Comment(s): Mother had breast cancer and metnal illness She is living. Father Family Medical History: Cancer Additional Family Medical History / Comment(s): Father is . He had agent orange exposure. He had liver cancer, bowel to brain cancer. General Exam Limitations: no limitations General appearance: alert, in no apparent distress Head exam: Present: atraumatic, normocephalic, normal inspection Eye exam: Present: normal appearance, PERRL, EOMI. Absent: scleral icterus, conjunctival injection, periorbital swelling Respiratory exam: Present: normal lung sounds bilaterally. Absent: respiratory distress, wheezes, rales, rhonchi, stridor Cardiovascular Exam: Present: regular rate, normal rhythm, normal heart sounds. Absent: systolic murmur, diastolic murmur, rubs, gallop, clicks GI/Abdominal exam: Present: soft, normal bowel sounds. Absent: distended, tenderness, guarding, rebound, rigid Extremities exam: Present: other (1 cm laceration over the palmar tip of the third right finger, nonbleeding. 1 cm abrasion over palmar tip of second right finger, nonbleeding) Neurological exam: Present: alert, oriented X3, CN II-XII intact Psychiatric exam: Present: normal affect, normal mood Skin exam: Present: warm, dry, intact, normal color. Absent: rash Course Vital Signs 11/29/21 12:22 Temperature 97.4 F L Pulse Rate 71 Respiratory 18 Rate Blood Pressure 116/78 O2 Sat by Pulse 96 Oximetry Procedures - Laceration Laceration #1 Consent Obtained: verbal consent Indication: laceration Site: other (Third right digit ) Size (cm): 1 Description: linear Depth: simple, single layer Pre-repair: wound explored, irrigated extensively, deep structures intact Patient Tolerated Procedure: no complications Additional Comments: The wound was well approximated with Exofin. Medical Decision Making - Medical Decision Making This is a 41-year-old female who presents for evaluation of laceration. Thorough history and examination were performed. Patient is neurovascularly intact. No numbness or tingling. Full range of motion. There is a 1 cm non- bleeding laceration over the palmar tip of the third right digit. There is also a 1 cm abrasion over the palmar tip of the second right digit. The wounds were explored and irrigated thoroughly. The laceration was well approximated with Exofin. Tetanus was updated. Patient will be discharged with instruction to follow-up with her primary care provider. Wound care education was provided. Return parameters discussed. Patient verbalizes understanding and is agreeable to this plan. Dr. Murillo is my attending. Disposition Clinical Impression: Laceration Disposition: HOME SELF-CARE Condition: Good Instructions (If sedation given, give patient instructions): Finger Laceration (ED) Additional Instructions: Please keep wound clean and dry. Follow-up with primary care in 1-2 days. Return to the emergency department if you experience new, concerning, or worsening symptoms. Is patient prescribed a controlled substance at d/c from ED?: No Referrals: [facility] [Primary Care Provider] - 1-2 days Time of Disposition: 13:54
== END 2021-11-29 14:13 | disposition home or self-care (01) ==
LOC: EC 12:15
DX: S61.212A Laceration without foreign body of right middle finger without damage to nail, initial encounter (principal); S60.410A Abrasion of right index finger, initial encounter; I11.0 Hypertensive heart disease with heart failure; I50.9 Heart failure, unspecified; J44.9 Chronic obstructive pulmonary disease, unspecified; K21.9 Gastro-esophageal reflux disease without esophagitis; G40.909 Epilepsy, unspecified, not intractable, without status epilepticus; F31.9 Bipolar disorder, unspecified; F41.9 Anxiety disorder, unspecified; M10.9 Gout, unspecified; F20.9 Schizophrenia, unspecified; M19.90 Unspecified osteoarthritis, unspecified site; M79.7 Fibromyalgia; Z79.82 Long term (current) use of aspirin; Z79.51 Long term (current) use of inhaled steroids; Z79.899 Other long term (current) drug therapy; Z87.891 Personal history of nicotine dependence; Z88.0 Allergy status to penicillin; Z88.1 Allergy status to other antibiotic agents; W23.0XXA Caught, crushed, jammed, or pinched between moving objects, initial encounter
CPT/HCPCS: 12001; 90471; 90715; 99282

== ENCOUNTER 2021-12-12 16:15 | Emergency (ER) | payer OTHER ==
--- NOTE | 2021-12-12 20:08 | ED ---
General Adult HPI - General Source: patient Mode of arrival: ambulatory Limitations: no limitations <Manny Ramos - Last Filed: 12/12/21 20:07> <Carie Mitchell - Last Filed: 12/13/21 11:02> - General Chief complaint: Psychiatric Symptoms Stated complaint: Mental Health Time Seen by Provider: 12/12/21 19:54 - History of Present Illness Initial comments: Dictation was produced using [employer] dictation software. please excuse any grammatical, word or spelling errors. Chief Complaint: 41-year-old female requesting EPS evaluation History of Present Illness: 41-year-old female she has multiple comorbidities. She is been utilizing illicit drugs over the last several days. She feels depressed because of her living situation and states that she is depressed and wants to talk to EPS. Patient denies any suicidal or homicidal ideation. Patient denies any paranoia. Denies any visual auditory hallucinations. The ROS documented in this emergency department record has been reviewed and confirmed by me. Those systems with pertinent positive or negative responses have been documented in the HPI. All other systems are other negative and/or noncontributory. PHYSICAL EXAM: General Impression: Alert and oriented x3, not in acute distress HEENT: Normocephalic atraumatic, extra-ocular movements intact, pupils equal and reactive to light bilaterally, mucous membranes moist. Cardiovascular: Heart regular rate and rhythm Chest: Able to complete full sentences, no retractions, no tachypnea Abdomen: abdomen soft, non-tender, non-distended, no organomegaly Musculoskeletal: Pulses present and equal in all extremities, no peripheral edema Motor: no focal deficits noted Neurological: CN II-XII grossly intact, no focal motor or sensory deficits noted Skin: Intact with no visualized rashes Psych: Normal affect and mood ED course: 41-year-old female requesting EPS evaluation for depression. Vital signs Upon arrival are within acceptable limits. Patient is not showing any psychotic features. Patient medically cleared for EPS. (Manny Ramos) - Related Data Home Medications Medication Instructions Recorded Confirmed Fluticasone Nasal [place] [Flonase 1 spray EA NOSTRIL DAILY 12/16/18 12/12/21 Nasal [place]] Zonisamide [Zonegran] 300 mg PO HS 12/16/18 12/12/21 Montelukast [Singulair] 10 mg PO HS 12/16/19 12/12/21 Omeprazole 20 mg PO DAILY 12/16/19 12/12/21 allopurinoL [Zyloprim] 100 mg PO DAILY 12/16/19 12/12/21 Aspirin EC [Ecotrin Low Dose] 81 mg PO DAILY 04/12/20 12/12/21 Naltrexone HCl [Revia] 50 mg PO DAILY 04/12/20 12/12/21 hydrOXYzine pamoate [Vistaril] 25 mg PO TID 04/12/20 12/12/21 Ibuprofen [Motrin] 400 mg PO BID PRN 09/04/20 12/12/21 Polyethylene Glycol 3350 [Miralax] 17 gm PO DAILY PRN 09/04/20 12/12/21 calcium polycarbophiL [Fibercon] 1,250 mg PO BID 09/04/20 12/12/21 lamoTRIgine [LaMICtal] 200 mg PO DAILY 09/04/20 12/12/21 Loratadine [Claritin] 10 mg PO DAILY 12/22/20 12/12/21 Albuterol Sulfate [Proair Hfa] 2 puff INHALATION RT-QID PRN 12/12/21 12/12/21 Aripiprazole Lauroxil [Aristada] 882 mg IM Q28D 12/12/21 12/12/21 Baclofen [Lioresal] 10 mg PO HS PRN 12/12/21 12/12/21 Benztropine Mesylate [Cogentin] 2 mg PO BID 12/12/21 12/12/21 Bismuth Subsalicylate [Kaopectate] 524 mg PO Q6H PRN 12/12/21 12/12/21 Cholecalciferol [Vitamin D3 (125 125 mcg PO DAILY 12/12/21 12/12/21 Mcg = 5000 Iu)] Docusate 250mg Cap 250 mg PO BID PRN 12/12/21 12/12/21 Fenofibrate [Lofibra] 54 mg PO DAILY 12/12/21 12/12/21 Fluticasone Propionate [Flovent 2 puff INHALATION RT-BID 12/12/21 12/12/21 Hfa 220 mcg] Folic Acid 1 mg PO DAILY 12/12/21 12/12/21 Glucerna Shake 1 can PO DAILY 12/12/21 12/12/21 Lacosamide [Vimpat] 200 mg PO BID 12/12/21 12/12/21 Linaclotide [Linzess] 145 mcg PO DAILY 12/12/21 12/12/21 Nystatin 100,000 Unit/gm Powd 1 applic TOPICAL BID PRN 12/12/21 12/12/21 [Mycostatin Powder] Nystatin 100,000Unit/gm Cream 1 applic TOPICAL BID PRN 12/12/21 12/12/21 [Mycostatin Cream] metFORMIN HCL [Glucophage] 1,000 mg PO BID 12/12/21 12/12/21 traZODone HCL [Desyrel] 200 mg PO HS PRN 12/12/21 12/12/21 Previous Rx's Medication Instructions Recorded DULoxetine HCL [Cymbalta] 60 mg PO DAILY 30 Days capsule. 03/08/20 Allergies Allergy/AdvReac Type Severity Reaction Status Date / Time Iodinated Contrast Media Allergy Anaphylaxis Verified 11/29/21 12:22 [Iodinated Contrast Media - IV Dye] peanut Allergy Anaphylaxis Verified 11/29/21 12:22 Penicillins Allergy Anaphylaxis Verified 11/29/21 12:22 shellfish derived Allergy Anaphylaxis Verified 11/29/21 12:22 cephalexin monohydrate AdvReac Nausea & Verified 11/29/21 12:22 [From Keflex] Vomiting & Diarrhea trazodone AdvReac bp Verified 11/29/21 12:22 issues/dissiness--patient takes at home Review of Systems ROS Other: All systems not noted in ROS Statement are negative. <Manny Ramos - Last Filed: 12/12/21 20:07> ROS Other: All systems not noted in ROS Statement are negative. <Carie Mitchell - Last Filed: 12/13/21 11:02> ROS Statement: Those systems with pertinent positive or pertinent negative responses have been documented in the HPI. Past Medical History Past Medical History: Asthma, Heart Failure, COPD, Fibromyalgia, GERD/Reflux, GI Bleed, Hypertension, Liver Disease, Osteoarthritis (OA), Pneumonia, Seizure Disorder, Skin Disorder Additional Past Medical History / Comment(s): Bronchitis, gestational diabetes, seizures with last one 09/03/20, sickle cell trait, liver cirrhosis, anemia, chrons, IBS, ulcerative colitis, lowr GI bleed, hemorrhoids, constipation, psoriasis, migraines, chronic low back and cervical pain, scoliosis, arhtritis in multiple joints, gout bilateral feet, History of Any Multi-Drug Resistant Organisms: None Reported Past Surgical History: Cholecystectomy, Orthopedic Surgery Additional Past Surgical History / Comment(s): L oophorectomy d/t cyst, D&C, colonoscopy, L carpal tunnel release, Past Anesthesia/Blood Transfusion Reactions: Motion Sickness, Postoperative Nausea & Vomiting (PONV) Past Psychological History: Anxiety, Bipolar, Depression, Schizophrenia Smoking Status: Former smoker Past Alcohol Use History: None Reported Past Drug Use History: None Reported - Past Family History Mother History Unknown: Yes Family Medical History: Cancer Additional Family Medical History / Comment(s): Mother had breast cancer and metnal illness She is living. Father Family Medical History: Cancer Additional Family Medical History / Comment(s): Father is . He had agent orange exposure. He had liver cancer, bowel to brain cancer. <Manny Ramos - Last Filed: 12/12/21 20:07> General Exam Limitations: no limitations <Manny Ramos - Last Filed: 12/12/21 20:07> General appearance: alert, in no apparent distress Head exam: Present: atraumatic, normocephalic, normal inspection Eye exam: Present: normal appearance, PERRL, EOMI. Absent: scleral icterus, conjunctival injection, periorbital swelling ENT exam: Present: normal exam, mucous membranes moist Neck exam: Present: normal inspection. Absent: tenderness, meningismus, lymphadenopathy Respiratory exam: Present: normal lung sounds bilaterally. Absent: respiratory distress, wheezes, rales, rhonchi, stridor Cardiovascular Exam: Present: regular rate, normal rhythm, normal heart sounds. Absent: systolic murmur, diastolic murmur, rubs, gallop, clicks GI/Abdominal exam: Present: soft, normal bowel sounds. Absent: distended, tenderness, guarding, rebound, rigid Extremities exam: Present: normal inspection, full ROM, normal capillary refill. Absent: tenderness, pedal edema, joint swelling, calf tenderness Back exam: Present: normal inspection Neurological exam: Present: alert, oriented X3, CN II-XII intact Psychiatric exam: Present: depressed, flat affect Skin exam: Present: warm, dry, intact, normal color. Absent: rash <Carie Mitchell - Last Filed: 12/13/21 11:02> Course Vital Signs 12/12/21 12/12/21 16:53 21:25 Temperature 98.0 F 98.2 F Pulse Rate 67 78 Respiratory 18 16 Rate Blood Pressure 132/75 121/78 O2 Sat by Pulse 98 98 Oximetry Medical Decision Making <Carie Mitchell - Last Filed: 12/13/21 11:02> - Medical Decision Making Patient evaluated by EPS. Stable for discharge home with outpatient treatment. Instructed to return for any new or worsening symptoms. Patients guardian agreeable (Carie Mitchell) - Lab Data Lab Results 12/12/21 Range/Units 20:58 Urine Opiates Screen Not Detected (NotDetected) Ur Oxycodone Screen Not Detected (NotDetected) Urine Methadone Screen Not Detected (NotDetected) Ur Propoxyphene Screen Not Detected (NotDetected) Ur Barbiturates Screen Not Detected (NotDetected) U Tricyclic Antidepress Not Detected (NotDetected) Ur Phencyclidine Scrn Not Detected (NotDetected) Ur Amphetamines Screen Not Detected (NotDetected) U Methamphetamines Scrn Not Detected (NotDetected) U Benzodiazepines Scrn Not Detected (NotDetected) Urine Cocaine Screen Detected H (NotDetected) U Marijuana (THC) Screen Not Detected (NotDetected) Disposition <Manny Ramos - Last Filed: 12/12/21 20:07> Is patient prescribed a controlled substance at d/c from ED?: No Time of Disposition: 21:21 <Carie Mitchell - Last Filed: 12/13/21 11:02> Clinical Impression: Depression Disposition: HOME SELF-CARE Condition: Stable Instructions (If sedation given, give patient instructions): Depression (ED) Additional Instructions: Please follow up with your primary care doctor in 2-4 days. Return for any new or worsening symptoms Referrals: [facility] [Primary Care Provider] - 1-2 days
[2021-12-12 21:26] VITALS: BP 121/78; PULSE 78; RESP 16; TEMP 98.2
[2021-12-12 21:50] LABS: Amphetamine Screen,Urine Not Detected (NotDetected); Barbiturate Screen,Urine Not Detected (NotDetected); Benzodiazepines Screen,Urine Not Detected (NotDetected); Cocaine Screen,Urine Detected (NotDetected); Methadone Screen, Urine Not Detected (NotDetected); Opiate Screen,Urine Not Detected (NotDetected); Oxycodone Screen, Urine Not Detected (NotDetected); Phencyclidine Screen,Urine Not Detected (NotDetected); Tricyclic Antidepressant,Urine Not Detected (NotDetected); Urn Cannabinoid Scrn Not Detected (NotDetected)
== END 2021-12-12 21:25 | disposition home or self-care (01) ==
LOC: EC 16:15
DX: F32.A Depression, unspecified (principal); I11.0 Hypertensive heart disease with heart failure; I50.9 Heart failure, unspecified; J44.9 Chronic obstructive pulmonary disease, unspecified; M79.7 Fibromyalgia; K21.9 Gastro-esophageal reflux disease without esophagitis; Z87.891 Personal history of nicotine dependence; Z88.0 Allergy status to penicillin; Z91.041 Radiographic dye allergy status; Z88.1 Allergy status to other antibiotic agents; Z88.8 Allergy status to other drugs, medicaments and biological substances; Z91.010 Allergy to peanuts; Z79.899 Other long term (current) drug therapy; Z79.51 Long term (current) use of inhaled steroids; Z79.82 Long term (current) use of aspirin
CPT/HCPCS: 80306; 82075; 99284

== ENCOUNTER 2021-12-29 10:25 | Emergency (ER) | payer OTHER ==
--- NOTE | 2021-12-29 10:42 | ED ---
Psych HPI - General Source: patient, EMS, RN notes reviewed Mode of arrival: EMS Limitations: no limitations <Karson Hawkins - Last Filed: 12/29/21 10:41> <Elliott Webb - Last Filed: 12/29/21 20:53> - General Chief Complaint: Psychiatric Symptoms Stated Complaint: Mental Health Time Seen by Provider: 12/29/21 10:29 - History of Present Illness Initial Comments: This a 41-year-old female presents emergency department via EMS for psychiatric evaluation. Patient that she is depressed, suicidal. Patient states that he continues to use crack cocaine which is been recently mix with methamphetamines. Patient states she last used 3 days ago. Patient states she has no exact plan to harm himself but states that she's been having thoughts states that she knows that she can overdose with her drugs that she has. Patient denies any homicidal ideation denies any recent alcohol use. (Karson Hawkins) - Related Data Home Medications Medication Instructions Recorded Confirmed Fluticasone Nasal [place] [Flonase 1 spray EA NOSTRIL DAILY 12/16/18 12/29/21 Nasal [place]] Zonisamide [Zonegran] 300 mg PO HS 12/16/18 12/29/21 Montelukast [Singulair] 10 mg PO HS 12/16/19 12/29/21 Omeprazole 20 mg PO DAILY 12/16/19 12/29/21 allopurinoL [Zyloprim] 100 mg PO DAILY 12/16/19 12/29/21 Aspirin EC [Ecotrin Low Dose] 81 mg PO DAILY 04/12/20 12/29/21 Naltrexone HCl [Revia] 50 mg PO DAILY 04/12/20 12/29/21 hydrOXYzine pamoate [Vistaril] 25 mg PO TID 04/12/20 12/29/21 Ibuprofen [Motrin] 400 mg PO BID PRN 09/04/20 12/29/21 Polyethylene Glycol 3350 [Miralax] 17 gm PO DAILY PRN 09/04/20 12/29/21 calcium polycarbophiL [Fibercon] 1,250 mg PO BID PRN 09/04/20 12/29/21 lamoTRIgine [LaMICtal] 200 mg PO DAILY 09/04/20 12/29/21 Loratadine [Claritin] 10 mg PO DAILY 12/22/20 12/29/21 Albuterol Sulfate [Proair Hfa] 2 puff INHALATION RT-QID PRN 12/12/21 12/29/21 Aripiprazole Lauroxil [Aristada] 882 mg IM Q28D 12/12/21 12/29/21 Baclofen [Lioresal] 10 mg PO HS PRN 12/12/21 12/29/21 Benztropine Mesylate [Cogentin] 2 mg PO BID 12/12/21 12/29/21 Cholecalciferol [Vitamin D3 (125 125 mcg PO DAILY 12/12/21 12/29/21 Mcg = 5000 Iu)] Docusate 250mg Cap 250 mg PO BID PRN 12/12/21 12/29/21 Fenofibrate [Lofibra] 54 mg PO DAILY 12/12/21 12/29/21 Fluticasone Propionate [Flovent 2 puff INHALATION RT-BID 12/12/21 12/29/21 Hfa 220 mcg] Folic Acid 1 mg PO DAILY 12/12/21 12/29/21 Glucerna Shake 1 can PO DAILY 12/12/21 12/29/21 Lacosamide [Vimpat] 200 mg PO BID 12/12/21 12/29/21 Linaclotide [Linzess] 145 mcg PO DAILY 12/12/21 12/29/21 Nystatin 100,000Unit/gm Cream 1 applic TOPICAL BID PRN 12/12/21 12/29/21 [Mycostatin Cream] metFORMIN HCL [Glucophage] 1,000 mg PO BID 12/12/21 12/29/21 traZODone HCL [Desyrel] 200 mg PO HS PRN 12/12/21 12/29/21 Pepto Tab 2 tab PO Q6H PRN 12/29/21 12/29/21 Previous Rx's Medication Instructions Recorded DULoxetine HCL [Cymbalta] 60 mg PO DAILY 30 Days capsule. 03/08/20 Allergies Allergy/AdvReac Type Severity Reaction Status Date / Time Iodinated Contrast Media Allergy Anaphylaxis Verified 12/29/21 11:08 [Iodinated Contrast Media - IV Dye] peanut Allergy Anaphylaxis Verified 12/29/21 11:08 Penicillins Allergy Anaphylaxis Verified 12/29/21 11:08 shellfish derived Allergy Anaphylaxis Verified 12/29/21 11:08 cephalexin monohydrate AdvReac Nausea & Verified 12/29/21 11:08 [From Keflex] Vomiting & Diarrhea trazodone AdvReac bp Verified 12/29/21 11:08 issues/dissiness--patient takes at home Review of Systems ROS Other: All systems not noted in ROS Statement are negative. <Karson Hawkins - Last Filed: 12/29/21 10:41> ROS Other: All systems not noted in ROS Statement are negative. <Elliott Webb - Last Filed: 12/29/21 20:53> ROS Statement: Those systems with pertinent positive or pertinent negative responses have been documented in the HPI. Past Medical History Past Medical History: Asthma, Heart Failure, COPD, Fibromyalgia, GERD/Reflux, GI Bleed, Hypertension, Liver Disease, Osteoarthritis (OA), Pneumonia, Seizure Disorder, Skin Disorder Additional Past Medical History / Comment(s): Bronchitis, gestational diabetes, seizures with last one 09/03/20, sickle cell trait, liver cirrhosis, anemia, chrons, IBS, ulcerative colitis, lowr GI bleed, hemorrhoids, constipation, psoriasis, migraines, chronic low back and cervical pain, scoliosis, arhtritis in multiple joints, gout bilateral feet, History of Any Multi-Drug Resistant Organisms: None Reported Past Surgical History: Cholecystectomy, Orthopedic Surgery Additional Past Surgical History / Comment(s): L oophorectomy d/t cyst, D&C, colonoscopy, L carpal tunnel release, Past Anesthesia/Blood Transfusion Reactions: Motion Sickness, Postoperative Nausea & Vomiting (PONV) Past Psychological History: Anxiety, Bipolar, Depression, Schizophrenia Smoking Status: Former smoker Past Alcohol Use History: None Reported Past Drug Use History: None Reported - Past Family History Mother History Unknown: Yes Family Medical History: Cancer Additional Family Medical History / Comment(s): Mother had breast cancer and metnal illness She is living. Father Family Medical History: Cancer Additional Family Medical History / Comment(s): Father is . He had agent orange exposure. He had liver cancer, bowel to brain cancer. <Karson Hawkins - Last Filed: 12/29/21 10:41> General Exam Limitations: no limitations General appearance: alert, in no apparent distress Head exam: Present: atraumatic, normocephalic, normal inspection Eye exam: Present: normal appearance, PERRL, EOMI. Absent: scleral icterus, conjunctival injection, periorbital swelling ENT exam: Present: normal exam, mucous membranes moist Neck exam: Present: normal inspection, full ROM. Absent: tenderness, meningismus, lymphadenopathy Respiratory exam: Present: normal lung sounds bilaterally. Absent: respiratory distress, wheezes, rales, rhonchi, stridor Cardiovascular Exam: Present: regular rate, normal rhythm, normal heart sounds. Absent: systolic murmur, diastolic murmur, rubs, gallop, clicks GI/Abdominal exam: Present: soft, normal bowel sounds. Absent: distended, tenderness, guarding, rebound, rigid Neurological exam: Present: alert, oriented X3 Psychiatric exam: Present: depressed, flat affect <Karson Hawkins - Last Filed: 12/29/21 10:41> Course Vital Signs 12/29/21 10:28 Temperature 98.4 F Pulse Rate 68 Respiratory 16 Rate Blood Pressure 134/64 O2 Sat by Pulse 98 Oximetry Medical Decision Making <Elliott Webb - Last Filed: 12/29/21 20:53> - Medical Decision Making Patient was evaluated by EPS and cleared for discharge home. Patient is given a safety plan for home. Patient is given follow-up information with [facility]. Patient will be discharged home in stable condition. (Elliott Webb) - Lab Data Lab Results 12/29/21 Range/Units 10:55 Urine Opiates Screen Not Detected (NotDetected) Ur Oxycodone Screen Not Detected (NotDetected) Urine Methadone Screen Not Detected (NotDetected) Ur Propoxyphene Screen Not Detected (NotDetected) Ur Barbiturates Screen Not Detected (NotDetected) U Tricyclic Antidepress Not Detected (NotDetected) Ur Phencyclidine Scrn Not Detected (NotDetected) Ur Amphetamines Screen Not Detected (NotDetected) U Methamphetamines Scrn Not Detected (NotDetected) U Benzodiazepines Scrn Not Detected (NotDetected) Urine Cocaine Screen Detected H (NotDetected) U Marijuana (THC) Screen Not Detected (NotDetected) Disposition <Karson Hawkins - Last Filed: 12/29/21 10:41> Is patient prescribed a controlled substance at d/c from ED?: No <Elliott Webb - Last Filed: 12/29/21 20:53> Clinical Impression: Encounter for psychiatric assessment Disposition: HOME SELF-CARE Condition: Good Referrals: [facility] [Primary Care Provider] - 1-2 days
[2021-12-29 11:25] LABS: Amphetamine Screen,Urine Not Detected (NotDetected); Barbiturate Screen,Urine Not Detected (NotDetected); Benzodiazepines Screen,Urine Not Detected (NotDetected); Cocaine Screen,Urine Detected (NotDetected); Methadone Screen, Urine Not Detected (NotDetected); Opiate Screen,Urine Not Detected (NotDetected); Oxycodone Screen, Urine Not Detected (NotDetected); Phencyclidine Screen,Urine Not Detected (NotDetected); Tricyclic Antidepressant,Urine Not Detected (NotDetected); Urn Cannabinoid Scrn Not Detected (NotDetected)
[2021-12-29] MEDS ORDERED: BACLOFEN 10 MG TAB PO PRN (14:07)
[2021-12-29] MEDS ORDERED: traZODone HCL 100 MG TAB PO PRN (14:07)
[2021-12-29] MEDS ORDERED: hydrOXYzine pamoate 25 MG CAP PO SCH (16:00)
[2021-12-29] MEDS ORDERED: BENZTROPINE MESYLATE 1 MG TAB PO SCH (21:00)
[2021-12-29] MEDS ORDERED: metFORMIN 500 MG TAB PO SCH (21:00)
[2021-12-29] MEDS ORDERED: MONTELUKAST 10 MG TAB PO SCH (21:00)
[2021-12-29] MEDS ORDERED: ZONISAMIDE 100 MG CAP PO SCH (21:00)
[2021-12-29 21:29] VITALS: BP 147/91; PULSE 75; RESP 18; TEMP 98.1
[2021-12-30] MEDS ORDERED: ASPIRIN 81 MG PO SCH (09:00)
[2021-12-30] MEDS ORDERED: PANTOPRAZOLE 40 MG TABLET PO SCH (09:00)
[2021-12-30] MEDS ORDERED: lamoTRIgine 100 MG TAB PO SCH (09:00)
[2021-12-30] MEDS ORDERED: PATIENT'S OWN (Linaclotide [Linzess] 145 MCG Capsule) PO SCH (09:00)
[2021-12-30] MEDS ORDERED: ARIPIPRAZOLE LAUROXIL 882 MG/3.2 ML IM SCH (09:00)
[2021-12-30] MEDS ORDERED: DULoxetine HCL 60 MG CAPSULE.DR PO SCH (09:00)
[2021-12-30] MEDS ORDERED: NALTREXONE HCL 50 MG TAB PO SCH (09:00)
[2021-12-30] MEDS ORDERED: allopurinoL 100 MG TAB PO SCH (09:00)
[2021-12-30] MEDS ORDERED: FENOFIBRATE 54 MG TAB PO SCH (09:00)
== END 2021-12-29 21:33 | disposition home or self-care (01) ==
LOC: EC 10:25
DX: Z04.6 Encounter for general psychiatric examination, requested by authority (principal); J45.909 Unspecified asthma, uncomplicated; K21.9 Gastro-esophageal reflux disease without esophagitis; Z79.83 Long term (current) use of bisphosphonates; I10 Essential (primary) hypertension; Z87.891 Personal history of nicotine dependence; Z88.0 Allergy status to penicillin; Z91.013 Allergy to seafood; Z88.1 Allergy status to other antibiotic agents; Z91.041 Radiographic dye allergy status
CPT/HCPCS: 80306; 82075

== ENCOUNTER 2022-02-08 09:22 | Emergency (ER) | payer OTHER ==
[2022-02-08 09:41] VITALS: BP 139/70; PULSE 64; RESP 20; TEMP 98.2
[2022-02-08] MEDS ORDERED: SODIUM CHLORIDE 0.9% 1,000 ML IV STA (09:50)
[2022-02-08] MEDS ORDERED: ONDANSETRON 4 MG/2 ML VIAL IVP STA (09:50)
--- NOTE | 2022-02-08 09:57 | ED ---
General Adult HPI - General Chief complaint: Nausea/Vomiting/Diarrhea Stated complaint: Near syncope, dehydration Time Seen by Provider: 02/08/22 09:31 Source: patient, RN notes reviewed Mode of arrival: ambulatory Limitations: no limitations - History of Present Illness Initial comments: This is a 41-year-old female who presents to the emergency department for dehydration and near syncope. Patient states that she smoked crack cocaine last night, and has since not felt well. She has smoked crack in the past but states that this is the worst she has ever felt. She is unsure if this may have been contaminated with other substances. Denies any additional substance use or EtOH use. States that she feels like her skin is crawling and she feels somewhat dizzy/lightheaded. Also states that her legs feel swollen. She did take plan B a couple of days ago as well for unprotected intercourse. Denies any fevers, chills, sore throat, cough, dyspnea, chest pain, palpitations, abdominal pain, diarrhea, back pain, or headaches. MD Complaint: Feeling ill after cocaine use Onset/Timin -: days(s) - Related Data Home Medications Medication Instructions Recorded Confirmed Fluticasone Nasal [place] [Flonase 1 spray EA NOSTRIL DAILY 12/16/18 12/29/21 Nasal [place]] Zonisamide [Zonegran] 300 mg PO HS 12/16/18 12/29/21 Montelukast [Singulair] 10 mg PO HS 12/16/19 12/29/21 Omeprazole 20 mg PO DAILY 12/16/19 12/29/21 allopurinoL [Zyloprim] 100 mg PO DAILY 12/16/19 12/29/21 Aspirin EC [Ecotrin Low Dose] 81 mg PO DAILY 04/12/20 12/29/21 Naltrexone HCl [Revia] 50 mg PO DAILY 04/12/20 12/29/21 hydrOXYzine pamoate [Vistaril] 25 mg PO TID 04/12/20 12/29/21 Ibuprofen [Motrin] 400 mg PO BID PRN 09/04/20 12/29/21 calcium polycarbophiL [Fibercon] 1,250 mg PO BID PRN 09/04/20 12/29/21 lamoTRIgine [LaMICtal] 200 mg PO DAILY 09/04/20 12/29/21 polyethylene glycoL 3350 [Miralax] 17 gm PO DAILY PRN 09/04/20 12/29/21 Loratadine [Claritin] 10 mg PO DAILY 12/22/20 12/29/21 Albuterol Sulfate [Proair Hfa] 2 puff INHALATION RT-QID PRN 12/12/21 12/29/21 Aripiprazole Lauroxil [Aristada] 882 mg IM Q28D 12/12/21 12/29/21 Baclofen [Lioresal] 10 mg PO HS PRN 12/12/21 12/29/21 Benztropine Mesylate [Cogentin] 2 mg PO BID 12/12/21 12/29/21 Cholecalciferol [Vitamin D3 (125 125 mcg PO DAILY 12/12/21 12/29/21 Mcg = 5000 Iu)] Docusate 250mg Cap 250 mg PO BID PRN 12/12/21 12/29/21 Fenofibrate [Lofibra] 54 mg PO DAILY 12/12/21 12/29/21 Fluticasone Propionate [Flovent 2 puff INHALATION RT-BID 12/12/21 12/29/21 Hfa 220 mcg] Folic Acid 1 mg PO DAILY 12/12/21 12/29/21 Glucerna Shake 1 can PO DAILY 12/12/21 12/29/21 Lacosamide [Vimpat] 200 mg PO BID 12/12/21 12/29/21 Linaclotide [Linzess] 145 mcg PO DAILY 12/12/21 12/29/21 Nystatin 100,000Unit/gm Cream 1 applic TOPICAL BID PRN 12/12/21 12/29/21 [Mycostatin Cream] metFORMIN HCL [Glucophage] 1,000 mg PO BID 12/12/21 12/29/21 traZODone HCL [Desyrel] 200 mg PO HS PRN 12/12/21 12/29/21 Pepto Tab 2 tab PO Q6H PRN 12/29/21 12/29/21 Previous Rx's Medication Instructions Recorded DULoxetine HCL [Cymbalta] 60 mg PO DAILY 30 Days capsule. 03/08/20 Ondansetron Odt [Zofran Odt] 4 mg PO Q8HR PRN #20 tab 02/08/22 Allergies Allergy/AdvReac Type Severity Reaction Status Date / Time Iodinated Contrast Media Allergy Anaphylaxis Verified 02/08/22 09:29 [Iodinated Contrast Media - IV Dye] peanut Allergy Anaphylaxis Verified 02/08/22 09:29 Penicillins Allergy Anaphylaxis Verified 02/08/22 09:29 shellfish derived Allergy Anaphylaxis Verified 02/08/22 09:29 cephalexin monohydrate AdvReac Nausea & Verified 02/08/22 09:29 [From Keflex] Vomiting & Diarrhea trazodone AdvReac bp Verified 02/08/22 09:29 issues/dissiness--patient takes at home Review of Systems ROS Statement: Those systems with pertinent positive or pertinent negative responses have been documented in the HPI. ROS Other: All systems not noted in ROS Statement are negative. Past Medical History Past Medical History: Asthma, Heart Failure, COPD, Fibromyalgia, GERD/Reflux, GI Bleed, Hypertension, Liver Disease, Osteoarthritis (OA), Pneumonia, Seizure Disorder, Skin Disorder Additional Past Medical History / Comment(s): Bronchitis, gestational diabetes, seizures with last one 09/03/20, sickle cell trait, liver cirrhosis, anemia, chrons, IBS, ulcerative colitis, lowr GI bleed, hemorrhoids, constipation, psoriasis, migraines, chronic low back and cervical pain, scoliosis, arhtritis i n multiple joints, gout bilateral feet, History of Any Multi-Drug Resistant Organisms: None Reported Past Surgical History: Cholecystectomy, Orthopedic Surgery Additional Past Surgical History / Comment(s): L oophorectomy d/t cyst, D&C, colonoscopy, L carpal tunnel release, Past Anesthesia/Blood Transfusion Reactions: Motion Sickness, Postoperative Nausea & Vomiting (PONV) Past Psychological History: Anxiety, Bipolar, Depression, Schizophrenia Smoking Status: Vaper Past Alcohol Use History: Occasional Past Drug Use History: Cocaine - Past Family History Mother History Unknown: Yes Family Medical History: Cancer Additional Family Medical History / Comment(s): Mother had breast cancer and metnal illness She is living. Father Family Medical History: Cancer Additional Family Medical History / Comment(s): Father is . He had agent orange exposure. He had liver cancer, bowel to brain cancer. General Exam Limitations: no limitations General appearance: alert, in no apparent distress Head exam: Present: atraumatic, normocephalic, normal inspection Respiratory exam: Present: normal lung sounds bilaterally. Absent: respiratory distress, wheezes, rales, rhonchi, stridor Cardiovascular Exam: Present: regular rate, normal rhythm, normal heart sounds. Absent: systolic murmur, diastolic murmur, rubs, gallop, clicks GI/Abdominal exam: Present: soft, normal bowel sounds. Absent: distended, tenderness, guarding, rebound, rigid Extremities exam: Present: normal capillary refill. Absent: pedal edema, joint swelling, calf tenderness Neurological exam: Present: alert, oriented X3, CN II-XII intact Psychiatric exam: Present: normal affect, normal mood Skin exam: Present: warm, dry, intact, normal color. Absent: rash Course Vital Signs 02/08/22 09:26 Temperature 98.2 F Pulse Rate 64 Respiratory 20 Rate Blood Pressure 139/70 O2 Sat by Pulse 98 Oximetry Medical Decision Making - Medical Decision Making This is a 41-year-old female who presents to the emergency department for dehydration and dizziness after crack cocaine use. Lab work was nonactionable. Patient was treated with IV fluids and Zofran. She noted remarkable improvement afterwards. Prescription for Zofran was sent to her pharmacy. I did developmental training counselor the patient on avoiding illicit drug use and we discussed the risks associated with it. Return precautions reviewed in depth, the patient is instructed to return to the emergency department with any new, worsening, or concerning symptoms. Patient verbalized understanding. This case was discussed in detail with the attending ED physician. Presentation, findings, and treatment plan discussed in detail as well. - Lab Data Result diagrams: 02/08/22 10:14 02/08/22 10:14 Lab Results 02/08/22 02/08/22 02/08/22 Range/Units 10:14 10:14 10:14 WBC 13.0 H (3.8-10.6) k/uL RBC 4.65 (3.80-5.40) m/uL Hgb 12.4 (11.4-16.0) gm/dL Hct 39.0 (34.0-46.0) % MCV 83.9 (80.0-100.0) fL MCH 26.7 (25.0-35.0) pg MCHC 31.8 (31.0-37.0) g/dL RDW 14.6 (11.5-15.5) % Plt Count 251 (150-450) k/uL MPV 6.9 Neutrophils % 74 % Lymphocytes % 16 % Monocytes % 4 % Eosinophils % 3 % Basophils % 1 % Neutrophils # 9.6 H (1.3-7.7) k/uL Lymphocytes # 2.1 (1.0-4.8) k/uL Monocytes # 0.5 (0-1.0) k/uL Eosinophils # 0.4 (0-0.7) k/uL Basophils # 0.1 (0-0.2) k/uL Hypochromasia Slight Sodium 140 (137-145) mmol/L Potassium 4.3 (3.5-5.1) mmol/L Chloride 108 H (98-107) mmol/L Carbon Dioxide 22 (22-30) mmol/L Anion Gap 10 mmol/L BUN 14 (7-17) mg/dL Creatinine 0.83 (0.52-1.04) mg/dL Est GFR (CKD-EPI)AfAm >90 (>60 ml/min/1.73 sqM) Est GFR (CKD-EPI)NonAf 88 (>60 ml/min/1.73 sqM) Glucose 107 H (74-99) mg/dL Calcium 9.2 (8.4-10.2) mg/dL Total Bilirubin 0.2 (0.2-1.3) mg/dL AST 28 (14-36) U/L ALT 22 (4-34) U/L Alkaline Phosphatase 100 (38-126) U/L Total Protein 7.8 (6.3-8.2) g/dL Albumin 4.1 (3.5-5.0) g/dL HCG, Qual Not Detected Urine Color Yellow Urine Appearance Clear (Clear) Urine pH 5.5 (5.0-8.0) Ur Specific [place] 1.017 (1.001-1.035) Urine Protein Negative (Negative) Urine Glucose (UA) Negative (Negative) Urine Ketones Negative (Negative) Urine Blood Negative (Negative) Urine Nitrite Negative (Negative) Urine Bilirubin Negative (Negative) Urine Urobilinogen <2.0 (<2.0) mg/dL Ur Leukocyte Esterase Negative (Negative) Urine Opiates Screen (NotDetected) Ur Oxycodone Screen (NotDetected) Urine Methadone Screen (NotDetected) Ur Propoxyphene Screen (NotDetected) Ur Barbiturates Screen (NotDetected) U Tricyclic Antidepress (NotDetected) Ur Phencyclidine Scrn (NotDetected) Ur Amphetamines Screen (NotDetected) U Methamphetamines Scrn (NotDetected) U Benzodiazepines Scrn (NotDetected) Urine Cocaine Screen (NotDetected) U Marijuana (THC) Screen (NotDetected) Serum Alcohol <10 mg/dL 02/08/22 Range/Units 10:14 WBC (3.8-10.6) k/uL RBC (3.80-5.40) m/uL Hgb (11.4-16.0) gm/dL Hct (34.0-46.0) % MCV (80.0-100.0) fL MCH (25.0-35.0) pg MCHC (31.0-37.0) g/dL RDW (11.5-15.5) % Plt Count (150-450) k/uL MPV Neutrophils % % Lymphocytes % % Monocytes % % Eosinophils % % Basophils % % Neutrophils # (1.3-7.7) k/uL Lymphocytes # (1.0-4.8) k/uL Monocytes # (0-1.0) k/uL Eosinophils # (0-0.7) k/uL Basophils # (0-0.2) k/uL Hypochromasia Sodium (137-145) mmol/L Potassium (3.5-5.1) mmol/L Chloride (98-107) mmol/L Carbon Dioxide (22-30) mmol/L Anion Gap mmol/L BUN (7-17) mg/dL Creatinine (0.52-1.04) mg/dL Est GFR (CKD-EPI)AfAm (>60 ml/min/1.73 sqM) Est GFR (CKD-EPI)NonAf (>60 ml/min/1.73 sqM) Glucose (74-99) mg/dL Calcium (8.4-10.2) mg/dL Total Bilirubin (0.2-1.3) mg/dL AST (14-36) U/L ALT (4-34) U/L Alkaline Phosphatase (38-126) U/L Total Protein (6.3-8.2) g/dL Albumin (3.5-5.0) g/dL HCG, Qual Urine Color Urine Appearance (Clear) Urine pH (5.0-8.0) Ur Specific [place] (1.001-1.035) Urine Protein (Negative) Urine Glucose (UA) (Negative) Urine Ketones (Negative) Urine Blood (Negative) Urine Nitrite (Negative) Urine Bilirubin (Negative) Urine Urobilinogen (<2.0) mg/dL Ur Leukocyte Esterase (Negative) Urine Opiates Screen Not Detected (NotDetected) Ur Oxycodone Screen Not Detected (NotDetected) Urine Methadone Screen Not Detected (NotDetected) Ur Propoxyphene Screen Not Detected (NotDetected) Ur Barbiturates Screen Not Detected (NotDetected) U Tricyclic Antidepress Not Detected (NotDetected) Ur Phencyclidine Scrn Not Detected (NotDetected) Ur Amphetamines Screen Not Detected (NotDetected) U Methamphetamines Scrn Not Detected (NotDetected) U Benzodiazepines Scrn Not Detected (NotDetected) Urine Cocaine Screen Detected H (NotDetected) U Marijuana (THC) Screen Not Detected (NotDetected) Serum Alcohol mg/dL Disposition Clinical Impression: Nausea, Dehydration Disposition: HOME SELF-CARE Instructions (If sedation given, give patient instructions): Dehydration (ED), Acute Nausea and Vomiting (ED) Additional Instructions: Return to the emergency department with any new, worsening, or concerning symptoms. Continue to remain well-hydrated. Take the Zofran up to every 8 hours as needed for nausea and vomiting. Avoid using illicit drugs, as they will make you ill and can lead to additional problems. Prescriptions: Ondansetron Odt [Zofran Odt] 4 mg PO Q8HR PRN #20 tab PRN Reason: Nausea And Vomiting Is patient prescribed a controlled substance at d/c from ED?: No Referrals: [facility] [Primary Care Provider] - 1-2 days
[2022-02-08 10:33] LABS: Appearance,Urine Clear (Clear); Bilirubin,Urine Negative (Negative); Blood,Urine Negative (Negative); Color,Urine Yellow; Glucose,Urine (UA) Negative (Negative); Ketones,Urine Negative (Negative); Leukocyte Esterase,Urine Negative (Negative); Nitrite,Urine Negative (Negative); PH, Urine 5.5 (5.0-8.0); Protein,Urine Negative (Negative); Specific Gravity,Urine 1.017 (1.001-1.035); Urobilinogen,Urine <2.0 mg/dL (<2.0)
[2022-02-08 10:39] LABS: Basophils # (A) 0.1 k/uL (0-0.2); Basophils % (A) 1 %; Eosinophils # (A) 0.4 k/uL (0-0.7); Eosinophils % (A) 3 %; HGB 12.4 gm/dL (11.4-16.0); Hypochromasia Slight; Lymphocytes # (A) 2.1 k/uL (1.0-4.8); Lymphocytes % (A) 16 %; MCH 26.7 pg (25.0-35.0); MCHC 31.8 g/dL (31.0-37.0); MCV 83.9 fL (80.0-100.0); Mean Platelet Volume 6.9; Monocytes # (A) 0.5 k/uL (0-1.0); Monocytes % (A) 4 %; Neutrophils # (A) 9.6 k/uL (1.3-7.7); Neutrophils % (A) 74 %; Platelet Count 251 k/uL (150-450); RBC 4.65 m/uL (3.80-5.40); RDW 14.6 % (11.5-15.5)
[2022-02-08 10:49] LABS: Cocaine Screen,Urine Detected (NotDetected); Phencyclidine Screen,Urine Not Detected (NotDetected); Urn Cannabinoid Scrn Not Detected (NotDetected)
[2022-02-08 10:50] LABS: Amphetamine Screen,Urine Not Detected (NotDetected); Barbiturate Screen,Urine Not Detected (NotDetected); Benzodiazepines Screen,Urine Not Detected (NotDetected); Methadone Screen, Urine Not Detected (NotDetected); Opiate Screen,Urine Not Detected (NotDetected); Oxycodone Screen, Urine Not Detected (NotDetected); Tricyclic Antidepressant,Urine Not Detected (NotDetected)
[2022-02-08 10:53] LABS: HCG,Qualitative Serum Not Detected
[2022-02-08 10:54] LABS: ALT 22 U/L (4-34); AST 28 U/L (14-36); African American GFR (CKD) >90 (>60 ml/min/1.73 sqM); Albumin 4.1 g/dL (3.5-5.0); Alcohol <10 mg/dL; Alkaline Phosphatase 100 U/L (38-126); Anion Gap 10 mmol/L; Blood Urea Nitrogen 14 mg/dL (7-17); Calcium 9.2 mg/dL (8.4-10.2); Carbon Dioxide 22 mmol/L (22-30); Chloride 108 mmol/L (98-107); Glucose 107 mg/dL (74-99); Non-African American GFR(CKD) 88 (>60 ml/min/1.73 sqM); Potassium 4.3 mmol/L (3.5-5.1); Sodium 140 mmol/L (137-145); Total Bilirubin 0.2 mg/dL (0.2-1.3); Total Protein 7.8 g/dL (6.3-8.2)
== END 2022-02-08 12:20 | disposition home or self-care (01) ==
LOC: EC 09:22
DX: R55 Syncope and collapse (principal); E86.0 Dehydration; J45.909 Unspecified asthma, uncomplicated; K21.9 Gastro-esophageal reflux disease without esophagitis; I10 Essential (primary) hypertension; F17.209 Nicotine dependence, unspecified, with unspecified nicotine-induced disorders; Z79.83 Long term (current) use of bisphosphonates; Z91.010 Allergy to peanuts; Z88.0 Allergy status to penicillin; Z91.013 Allergy to seafood; Z88.1 Allergy status to other antibiotic agents; Z88.8 Allergy status to other drugs, medicaments and biological substances
CPT/HCPCS: 36415; 80053; 85025; 81003; 84703; 80306; 99284; 96374; 96361; G0480; J2405; 80320

== ENCOUNTER 2022-03-25 00:46 | Emergency (ER) | payer OTHER ==
[2022-03-25 00:51] VITALS: BP 154/82; PULSE 66; RESP 18; TEMP 98.5
--- NOTE | 2022-03-25 02:04 | ED ---
Head Injury HPI - General Chief complaint: Head Injury Stated complaint: lump on back of head Time Seen by Provider: 03/25/22 01:56 Source: patient, RN notes reviewed Mode of arrival: ambulatory Limitations: no limitations - History of Present Illness Initial comments: Patient presents with a head injury. Patient has a known seizure disorder and states she had a seizure earlier tonight and sustained injury to the occipital region of her head. Patient states that she has a history of grand mal seizures. Patient states that she felt a seizure coming on. Patient then went into a tonic-clonic episode, fell, hit the back of her head on a chair. Patient also complaining of some right-sided neck pain which is worsened with movement. Alleviated by rest. Patient states her last seizure activity was last week. Patient did have a recent urinary tract infection. No other recent illnesses. Patient denying any vision or hearing disturbance. No numbness or tingling. No difficulty with speech. Patient denies chance of stating that she only has one fallopian tube which was ligated. Patient had a salpingectomy on the left side. No headache, no fever or chills, no changes in vision or hearing, no sore throat or difficulty with speech, no neck pain, no chest pain or shortness of breath, no abdominal pain, no nausea or vomiting, no changes in urination or bowel movements, no numbness or tingling, no extremity pain, no skin rashes or lesions. Past medical, surgical, social, and family history reviewed. Complaint: head injury - Related Data Home Medications Medication Instructions Recorded Confirmed Fluticasone Nasal [place] [Flonase 1 spray EA NOSTRIL DAILY 12/16/18 12/29/21 Nasal [place]] Zonisamide [Zonegran] 300 mg PO HS 12/16/18 12/29/21 Montelukast [Singulair] 10 mg PO HS 12/16/19 12/29/21 Omeprazole 20 mg PO DAILY 12/16/19 12/29/21 allopurinoL [Zyloprim] 100 mg PO DAILY 12/16/19 12/29/21 Aspirin EC [Ecotrin Low Dose] 81 mg PO DAILY 04/12/20 12/29/21 Naltrexone HCl [Revia] 50 mg PO DAILY 04/12/20 12/29/21 hydrOXYzine pamoate [Vistaril] 25 mg PO TID 04/12/20 12/29/21 Ibuprofen [Motrin] 400 mg PO BID PRN 09/04/20 12/29/21 calcium polycarbophiL [Fibercon] 1,250 mg PO BID PRN 09/04/20 12/29/21 lamoTRIgine [LaMICtal] 200 mg PO DAILY 09/04/20 12/29/21 polyethylene glycoL 3350 [Miralax] 17 gm PO DAILY PRN 09/04/20 12/29/21 Loratadine [Claritin] 10 mg PO DAILY 12/22/20 12/29/21 Albuterol Sulfate [Proair Hfa] 2 puff INHALATION RT-QID PRN 12/12/21 12/29/21 Aripiprazole Lauroxil [Aristada] 882 mg IM Q28D 12/12/21 12/29/21 Baclofen [Lioresal] 10 mg PO HS PRN 12/12/21 12/29/21 Benztropine Mesylate [Cogentin] 2 mg PO BID 12/12/21 12/29/21 Cholecalciferol [Vitamin D3 (125 125 mcg PO DAILY 12/12/21 12/29/21 Mcg = 5000 Iu)] Docusate 250mg Cap 250 mg PO BID PRN 12/12/21 12/29/21 Fenofibrate [Lofibra] 54 mg PO DAILY 12/12/21 12/29/21 Fluticasone Propionate [Flovent 2 puff INHALATION RT-BID 12/12/21 12/29/21 Hfa 220 mcg] Folic Acid 1 mg PO DAILY 12/12/21 12/29/21 Glucerna Shake 1 can PO DAILY 12/12/21 12/29/21 Lacosamide [Vimpat] 200 mg PO BID 12/12/21 12/29/21 Linaclotide [Linzess] 145 mcg PO DAILY 12/12/21 12/29/21 Nystatin 100,000Unit/gm Cream 1 applic TOPICAL BID PRN 12/12/21 12/29/21 [Mycostatin Cream] metFORMIN HCL [Glucophage] 1,000 mg PO BID 12/12/21 12/29/21 traZODone HCL [Desyrel] 200 mg PO HS PRN 12/12/21 12/29/21 Pepto Tab 2 tab PO Q6H PRN 12/29/21 12/29/21 Previous Rx's Medication Instructions Recorded DULoxetine HCL [Cymbalta] 60 mg PO DAILY 30 Days capsule. 03/08/20 Ondansetron Odt [Zofran Odt] 4 mg PO Q8HR PRN #20 tab 02/08/22 Allergies/Adverse reactions: Allergies Allergy/AdvReac Type Severity Reaction Status Date / Time Iodinated Contrast Media Allergy Anaphylaxis Verified 03/25/22 00:51 [Iodinated Contrast Media - IV Dye] peanut Allergy Anaphylaxis Verified 03/25/22 00:51 Penicillins Allergy Anaphylaxis Verified 03/25/22 00:51 shellfish derived Allergy Anaphylaxis Verified 03/25/22 00:51 cephalexin monohydrate AdvReac Nausea & Verified 03/25/22 00:51 [From Keflex] Vomiting & Diarrhea lacosamide [From Vimpat] AdvReac Anaphylaxis Verified 03/25/22 00:52 trazodone AdvReac bp Verified 03/25/22 00:51 issues/dissiness--patient takes at home Review of Systems ROS Statement: Those systems with pertinent positive or pertinent negative responses have been documented in the HPI. ROS Other: All systems not noted in ROS Statement are negative. Past Medical History Past Medical History: Asthma, Heart Failure, COPD, Fibromyalgia, GERD/Reflux, GI Bleed, Hypertension, Liver Disease, Osteoarthritis (OA), Pneumonia, Seizure Disorder, Skin Disorder Additional Past Medical History / Comment(s): Bronchitis, gestational diabetes, seizures with last one 09/03/20, sickle cell trait, liver cirrhosis, anemia, chrons, IBS, ulcerative colitis, lowr GI bleed, hemorrhoids, constipation, psoriasis, migraines, chronic low back and cervical pain, scoliosis, arhtritis in multiple joints, gout bilateral feet, History of Any Multi-Drug Resistant Organisms: None Reported Past Surgical History: Cholecystectomy, Orthopedic Surgery Additional Past Surgical History / Comment(s): L oophorectomy d/t cyst, D&C, colonoscopy, L carpal tunnel release, Past Anesthesia/Blood Transfusion Reactions: Motion Sickness, Postoperative Nausea & Vomiting (PONV) Past Psychological History: Anxiety, Bipolar, Depression, Schizophrenia Smoking Status: Vaper Past Alcohol Use History: Occasional Past Drug Use History: Cocaine - Past Family History Mother History Unknown: Yes Family Medical History: Cancer Additional Family Medical History / Comment(s): Mother had breast cancer and metnal illness She is living. Father Family Medical History: Cancer Additional Family Medical History / Comment(s): Father is . He had agent orange exposure. He had liver cancer, bowel to brain cancer. General Exam Limitations: no limitations General appearance: alert, in no apparent distress Head exam: Present: atraumatic, normocephalic, normal inspection, other (No visual trauma to the head. Patient does have some tenderness over the right occipital protuberance area. No break in skin integrity.) Eye exam: Present: normal appearance, PERRL, EOMI. Absent: scleral icterus, conjunctival injection, periorbital swelling ENT exam: Present: normal exam, mucous membranes moist Neck exam: Present: normal inspection, tenderness (Right cervical paraspinal tenderness, mild), full ROM. Absent: meningismus, lymphadenopathy Respiratory exam: Present: normal lung sounds bilaterally. Absent: respiratory distress, wheezes, rales, rhonchi, stridor, decreased breath sounds, prolonged expiratory Cardiovascular Exam: Present: regular rate, normal rhythm, normal heart sounds. Absent: systolic murmur, diastolic murmur, rubs, gallop, clicks GI/Abdominal exam: Present: soft, normal bowel sounds. Absent: distended, tenderness, guarding, rebound, rigid Extremities exam: Present: normal inspection, full ROM, normal capillary refill. Absent: tenderness, pedal edema, joint swelling, calf tenderness Back exam: Present: normal inspection, full ROM. Absent: tenderness, CVA tenderness (R), CVA tenderness (L), muscle spasm, paraspinal tenderness, vertebral tenderness, rash noted Neurological exam: Present: alert, oriented X3, CN II-XII intact Expanded Patient oriented to: Present: person, place, time Speech: Present: fluid speech Cranial nerves: EOM's Intact: Normal, Gag Reflex: Normal, Tongue Deviation: Normal, Nystagmus: Normal, Facial Sensation: Normal, Facial Palsy with Forehead Movement: Normal, Facial Palsy without Forehead Movement: Normal Cerebellar function: Finger to Nose: Normal, Romberg: Normal Upper motor neuron: Tu Neglect: Normal, Pronator Drift: Normal, Babinski Sign: Normal, Sensory Extinction: Normal Sensory exam: Upper Extremity Light Touch: Normal, Lower Extremity Light Touch: Normal Motor strength exam: RUE: 5, LUE: 5, RLE: 5, LLE: 5 Eye Response: (4) open spontaneously Motor Response: (6) obeys commands Verbal Response: (5) oriented Psychiatric exam: Present: normal affect, normal mood Skin exam: Present: warm, dry, intact, normal color. Absent: rash Course Vital Signs 03/25/22 00:49 Temperature 98.5 F Pulse Rate 66 Respiratory 18 Rate Blood Pressure 154/82 O2 Sat by Pulse 95 Oximetry - Reevaluation(s) Reevaluation #1: 03/25/22 03:09 Medical record is reviewed Patient neurologically intact, alert and oriented 4, cranial nerves II through XII intact, no focal deficits Patient is informed of results and questions answered Patient in no distress Medical Decision Making - Medical Decision Making Patient presents after having a seizure and subsequent head and neck injury. Computed tomography scan of the brain and cervical spine ordered by the triage nurse. Will check a loculates. Patient in no distress at the time seeing her. Alert and oriented 4, cranial nerves II through XII intact, no focal neurologic deficits. Finger to nose is normal. Romberg is normal. Patient endorsed to the ED attending physician at 4:27 AM for further evaluation and disposition. Case discussed in detail. Supervising physicians Dr. Mirza - Lab Data Result diagrams: 03/25/22 02:57 03/25/22 02:57 Lab Results 03/25/22 03/25/22 03/25/22 Range/Units 02:57 02:57 05:07 WBC 14.4 H (3.8-10.6) k/uL RBC 4.89 (3.80-5.40) m/uL Hgb 13.2 (11.4-16.0) gm/dL Hct 41.9 (34.0-46.0) % MCV 85.6 (80.0-100.0) fL MCH 27.0 (25.0-35.0) pg MCHC 31.6 (31.0-37.0) g/dL RDW 14.6 (11.5-15.5) % Plt Count 301 (150-450) k/uL MPV 7.0 Neutrophils % 63 % Lymphocytes % 25 % Monocytes % 5 % Eosinophils % 4 % Basophils % 1 % Neutrophils # 9.1 H (1.3-7.7) k/uL Lymphocytes # 3.6 (1.0-4.8) k/uL Monocytes # 0.7 (0-1.0) k/uL Eosinophils # 0.5 (0-0.7) k/uL Basophils # 0.1 (0-0.2) k/uL Hypochromasia Slight Sodium 139 (137-145) mmol/L Potassium 3.8 (3.5-5.1) mmol/L Chloride 104 (98-107) mmol/L Carbon Dioxide 21 L (22-30) mmol/L Anion Gap 14 mmol/L BUN 10 (7-17) mg/dL Creatinine 0.83 (0.52-1.04) mg/dL Est GFR (CKD-EPI)AfAm >90 (>60 ml/min/1.73 sqM) Est GFR (CKD-EPI)NonAf 88 (>60 ml/min/1.73 sqM) Glucose 88 (74-99) mg/dL Calcium 9.4 (8.4-10.2) mg/dL Magnesium 1.5 L (1.6-2.3) mg/dL Total Bilirubin 0.2 (0.2-1.3) mg/dL AST 27 (14-36) U/L ALT 29 (4-34) U/L Alkaline Phosphatase 98 (38-126) U/L Total Protein 7.9 (6.3-8.2) g/dL Albumin 4.2 (3.5-5.0) g/dL Urine Color Urine Appearance (Clear) Urine pH (5.0-8.0) Ur Specific [place] (1.001-1.035) Urine Protein (Negative) Urine Glucose (UA) (Negative) Urine Ketones (Negative) Urine Blood (Negative) Urine Nitrite (Negative) Urine Bilirubin (Negative) Urine Urobilinogen (<2.0) mg/dL Ur Leukocyte Esterase (Negative) Urine RBC (0-5) /hpf Urine WBC (0-5) /hpf Ur Squamous Epith Cells (0-4) /hpf Urine Bacteria (None) /hpf Urine Mucus (None) /hpf Urine Opiates Screen Not Detected (NotDetected) Ur Oxycodone Screen Not Detected (NotDetected) Urine Methadone Screen Not Detected (NotDetected) Ur Propoxyphene Screen Not Detected (NotDetected) Ur Barbiturates Screen Not Detected (NotDetected) U Tricyclic Antidepress Not Detected (NotDetected) Ur Phencyclidine Scrn Not Detected (NotDetected) Ur Amphetamines Screen Not Detected (NotDetected) U Methamphetamines Scrn Not Detected (NotDetected) U Benzodiazepines Scrn Not Detected (NotDetected) Urine Cocaine Screen Not Detected (NotDetected) U Marijuana (THC) Screen Not Detected (NotDetected) 03/25/22 Range/Units 05:07 WBC (3.8-10.6) k/uL RBC (3.80-5.40) m/uL Hgb (11.4-16.0) gm/dL Hct (34.0-46.0) % MCV (80.0-100.0) fL MCH (25.0-35.0) pg MCHC (31.0-37.0) g/dL RDW (11.5-15.5) % Plt Count (150-450) k/uL MPV Neutrophils % % Lymphocytes % % Monocytes % % Eosinophils % % Basophils % % Neutrophils # (1.3-7.7) k/uL Lymphocytes # (1.0-4.8) k/uL Monocytes # (0-1.0) k/uL Eosinophils # (0-0.7) k/uL Basophils # (0-0.2) k/uL Hypochromasia Sodium (137-145) mmol/L Potassium (3.5-5.1) mmol/L Chloride (98-107) mmol/L Carbon Dioxide (22-30) mmol/L Anion Gap mmol/L BUN (7-17) mg/dL Creatinine (0.52-1.04) mg/dL Est GFR (CKD-EPI)AfAm (>60 ml/min/1.73 sqM) Est GFR (CKD-EPI)NonAf (>60 ml/min/1.73 sqM) Glucose (74-99) mg/dL Calcium (8.4-10.2) mg/dL Magnesium (1.6-2.3) mg/dL Total Bilirubin (0.2-1.3) mg/dL AST (14-36) U/L ALT (4-34) U/L Alkaline Phosphatase (38-126) U/L Total Protein (6.3-8.2) g/dL Albumin (3.5-5.0) g/dL Urine Color Yellow Urine Appearance Cloudy H (Clear) Urine pH 6.0 (5.0-8.0) Ur Specific [place] 1.005 (1.001-1.035) Urine Protein Negative (Negative) Urine Glucose (UA) Negative (Negative) Urine Ketones Negative (Negative) Urine Blood Negative (Negative) Urine Nitrite Negative (Negative) Urine Bilirubin Negative (Negative) Urine Urobilinogen <2.0 (<2.0) mg/dL Ur Leukocyte Esterase Moderate H (Negative) Urine RBC 2 (0-5) /hpf Urine WBC 8 H (0-5) /hpf Ur Squamous Epith Cells 11 H (0-4) /hpf Urine Bacteria Moderate H (None) /hpf Urine Mucus Rare H (None) /hpf Urine Opiates Screen (NotDetected) Ur Oxycodone Screen (NotDetected) Urine Methadone Screen (NotDetected) Ur Propoxyphene Screen (NotDetected) Ur Barbiturates Screen (NotDetected) U Tricyclic Antidepress (NotDetected) Ur Phencyclidine Scrn (NotDetected) Ur Amphetamines Screen (NotDetected) U Methamphetamines Scrn (NotDetected) U Benzodiazepines Scrn (NotDetected) Urine Cocaine Screen (NotDetected) U Marijuana (THC) Screen (NotDetected) - Radiology Data Radiology results: report reviewed, image reviewed Disposition Clinical Impression: Recurrent seizures, Closed head injury, Hypomagnesemia Disposition: ADMITTED IP TO THIS HOSP Is patient prescribed a controlled substance at d/c from ED?: No Referrals: [facility] [Primary Care Provider] - 1-2 days
--- NOTE | 2022-03-25 03:06 | CT ---
EXAMINATION TYPE: CT brain cspine wo con DATE OF EXAM: 03/25/2022 COMPARISON: CT brain 12/23/2018 HISTORY: fall CT DLP: 2048.1 mGycm Automated exposure control for dose reduction was used. Ventricles have normal size. There is no mass effect nor midline shift. No sign of intracranial hemor rhage. The calvarium is intact. There is normal aeration of the mastoid sinuses. The cervical vertebra have normal alignment. No compression fracture. Facet joints are intact. Prever tebral soft tissues are intact. There is mild anterior spurring at C4-5. IMPRESSION: Negative scan of the brain. Negative CT scan cervical spine. No evidence of traumatic injury. Brain i s not changed compared to old exam.
[2022-03-25 03:14] LABS: Basophils # (A) 0.1 k/uL (0-0.2); Basophils % (A) 1 %; Eosinophils # (A) 0.5 k/uL (0-0.7); Eosinophils % (A) 4 %; HCT 41.9 % (34.0-46.0); HGB 13.2 gm/dL (11.4-16.0); Hypochromasia Slight; Lymphocytes # (A) 3.6 k/uL (1.0-4.8); Lymphocytes % (A) 25 %; MCHC 31.6 g/dL (31.0-37.0); MCV 85.6 fL (80.0-100.0); Monocytes # (A) 0.7 k/uL (0-1.0); Monocytes % (A) 5 %; Neutrophils # (A) 9.1 k/uL (1.3-7.7); Neutrophils % (A) 63 %; Platelet Count 301 k/uL (150-450); RBC 4.89 m/uL (3.80-5.40); RDW 14.6 % (11.5-15.5); WBC 14.4 k/uL (3.8-10.6)
[2022-03-25] MEDS ORDERED: SODIUM CHLORIDE 0.9% 1,000 ML IV ONE (03:38)
[2022-03-25 03:39] LABS: ALT 29 U/L (4-34); AST 27 U/L (14-36); African American GFR (CKD) >90 (>60 ml/min/1.73 sqM); Albumin 4.2 g/dL (3.5-5.0); Alkaline Phosphatase 98 U/L (38-126); Anion Gap 14 mmol/L; Blood Urea Nitrogen 10 mg/dL (7-17); Calcium 9.4 mg/dL (8.4-10.2); Carbon Dioxide 21 mmol/L (22-30); Chloride 104 mmol/L (98-107); Glucose 88 mg/dL (74-99); Magnesium 1.5 mg/dL (1.6-2.3); Non-African American GFR(CKD) 88 (>60 ml/min/1.73 sqM); Potassium 3.8 mmol/L (3.5-5.1); Sodium 139 mmol/L (137-145); Total Bilirubin 0.2 mg/dL (0.2-1.3); Total Protein 7.9 g/dL (6.3-8.2)
[2022-03-25] MEDS ORDERED: MAGNESIUM SULFATE-D5W PMX 1 GM in DEXTROSE/WATER 1 100ML.BAG IVPB ONE (03:54)
[2022-03-25 05:44] LABS: Appearance,Urine Cloudy (Clear); Bacteria,Urine Moderate /hpf; Bilirubin,Urine Negative (Negative); Blood,Urine Negative (Negative); Color,Urine Yellow; Glucose,Urine (UA) Negative (Negative); Ketones,Urine Negative (Negative); Leukocyte Esterase,Urine Moderate (Negative); Mucus,Urine Rare /hpf; Nitrite,Urine Negative (Negative); Protein,Urine Negative (Negative); RBC,Urine 2 /hpf (0-5); Specific Gravity,Urine 1.005 (1.001-1.035); Squamous Epithelial Cell,Urine 11 /hpf (0-4); Urobilinogen,Urine <2.0 mg/dL (<2.0); WBC,Urine 8 /hpf (0-5)
[2022-03-25 05:48] LABS: Amphetamine Screen,Urine Not Detected (NotDetected); Barbiturate Screen,Urine Not Detected (NotDetected); Benzodiazepines Screen,Urine Not Detected (NotDetected); Cocaine Screen,Urine Not Detected (NotDetected); Methadone Screen, Urine Not Detected (NotDetected); Opiate Screen,Urine Not Detected (NotDetected); Oxycodone Screen, Urine Not Detected (NotDetected); Phencyclidine Screen,Urine Not Detected (NotDetected); Tricyclic Antidepressant,Urine Not Detected (NotDetected); Urn Cannabinoid Scrn Not Detected (NotDetected)
== END 2022-03-25 21:58 | disposition other institution (70) ==
LOC: EC 00:46
DX: S09.90XA Unspecified injury of head, initial encounter (principal); G40.909 Epilepsy, unspecified, not intractable, without status epilepticus; E83.42 Hypomagnesemia; J45.909 Unspecified asthma, uncomplicated; I10 Essential (primary) hypertension; F17.209 Nicotine dependence, unspecified, with unspecified nicotine-induced disorders; Z91.010 Allergy to peanuts; Z88.0 Allergy status to penicillin; Z91.013 Allergy to seafood; Z88.8 Allergy status to other drugs, medicaments and biological substances; X58.XXXA Exposure to other specified factors, initial encounter
CPT/HCPCS: 36415; 80053; 83735; 85025; 81001; 80306; 80235; 72125; 70450; 99284; 96365; J3475

== ENCOUNTER 2022-05-01 08:37 | Emergency (ER) | payer OTHER ==
--- NOTE | 2022-05-01 09:06 | ED ---
Female Urogenital HPI - General Chief complaint: Vaginal Bleeding Stated complaint: Vaginal bleeding Time Seen by Provider: 05/01/22 08:56 Source: patient, RN notes reviewed, old records reviewed Mode of arrival: ambulatory Limitations: no limitations - History of Present Illness Initial comments: This is an obese 42-year-old female that presents to the emergency room with heavy vaginal bleeding for 3 days. Patient states she normally has a light per iod every 4 months and this has been very heavy. She states that she is low income and does not have underwear, pads or tampons, but has been using toilet paper in her vagaina to absorb the blood. History of left oophorectomy, right fallopian tube ligated. MD Complaint: vaginal bleeding -: days(s) (3) Severity scale (1-10): 8 Quality: other (Discomfort) Consistency: constant Improves with: none Worsens with: none Patient : No Associated Symptoms: vaginal bleeding - Related Data Home Medications Medication Instructions Recorded Confirmed Fluticasone Nasal [place] [Flonase 1 spray EA NOSTRIL DAILY 12/16/18 12/29/21 Nasal [place]] Zonisamide [Zonegran] 300 mg PO HS 12/16/18 12/29/21 Montelukast [Singulair] 10 mg PO HS 12/16/19 12/29/21 Omeprazole 20 mg PO DAILY 12/16/19 12/29/21 allopurinoL [Zyloprim] 100 mg PO DAILY 12/16/19 12/29/21 Aspirin EC [Ecotrin Low Dose] 81 mg PO DAILY 04/12/20 12/29/21 Naltrexone HCl [Revia] 50 mg PO DAILY 04/12/20 12/29/21 hydrOXYzine pamoate [Vistaril] 25 mg PO TID 04/12/20 12/29/21 Ibuprofen [Motrin] 400 mg PO BID PRN 09/04/20 12/29/21 calcium polycarbophiL [Fibercon] 1,250 mg PO BID PRN 09/04/20 12/29/21 lamoTRIgine [LaMICtal] 200 mg PO DAILY 09/04/20 12/29/21 polyethylene glycoL 3350 [Miralax] 17 gm PO DAILY PRN 09/04/20 12/29/21 Loratadine [Claritin] 10 mg PO DAILY 12/22/20 12/29/21 Albuterol Sulfate [Proair Hfa] 2 puff INHALATION RT-QID PRN 12/12/21 12/29/21 Aripiprazole Lauroxil [Aristada] 882 mg IM Q28D 12/12/21 12/29/21 Baclofen [Lioresal] 10 mg PO HS PRN 12/12/21 12/29/21 Benztropine Mesylate [Cogentin] 2 mg PO BID 12/12/21 12/29/21 Cholecalciferol [Vitamin D3 (125 125 mcg PO DAILY 12/12/21 12/29/21 Mcg = 5000 Iu)] Docusate 250mg Cap 250 mg PO BID PRN 12/12/21 12/29/21 Fenofibrate [Lofibra] 54 mg PO DAILY 12/12/21 12/29/21 Fluticasone Propionate [Flovent 2 puff INHALATION RT-BID 12/12/21 12/29/21 Hfa 220 mcg] Folic Acid 1 mg PO DAILY 12/12/21 12/29/21 Glucerna Shake 1 can PO DAILY 12/12/21 12/29/21 Lacosamide [Vimpat] 200 mg PO BID 12/12/21 12/29/21 Linaclotide [Linzess] 145 mcg PO DAILY 12/12/21 12/29/21 Nystatin 100,000Unit/gm Cream 1 applic TOPICAL BID PRN 12/12/21 12/29/21 [Mycostatin Cream] metFORMIN HCL [Glucophage] 1,000 mg PO BID 12/12/21 12/29/21 traZODone HCL [Desyrel] 200 mg PO HS PRN 12/12/21 12/29/21 Pepto Tab 2 tab PO Q6H PRN 12/29/21 12/29/21 Previous Rx's Medication Instructions Recorded DULoxetine HCL [Cymbalta] 60 mg PO DAILY 30 Days stacy. 03/08/20 Ondansetron Odt [Zofran Odt] 4 mg PO Q8HR PRN #20 tab 02/08/22 Allergies Allergy/AdvReac Type Severity Reaction Status Date / Time Iodinated Contrast Media Allergy Anaphylaxis Verified 05/01/22 08:43 [Iodinated Contrast Media - IV Dye] peanut Allergy Anaphylaxis Verified 09/30/22 08:43 Penicillins Allergy Anaphylaxis Verified 05/01/22 08:43 shellfish derived Allergy Anaphylaxis Verified 05/01/22 08:43 cephalexin monohydrate AdvReac Nausea & Verified 05/01/22 08:43 [From Keflex] Vomiting & Diarrhea lacosamide [From Vimpat] AdvReac Anaphylaxis Verified 05/01/22 08:43 trazodone AdvReac bp Verified 05/01/22 08:43 issues/dissiness--patient takes at home Review of Systems ROS Statement: Those systems with pertinent positive or pertinent negative responses have been documented in the HPI. ROS Other: All systems not noted in ROS Statement are negative. Past Medical History Past Medical History: Asthma, Heart Failure, COPD, Fibromyalgia, GERD/Reflux, GI Bleed, Hypertension, Liver Disease, Osteoarthritis (OA), Pneumonia, Seizure Disorder, Skin Disorder Additional Past Medical History / Comment(s): Bronchitis, gestational diabetes, seizures with last one 09/03/20, sickle cell trait, liver cirrhosis, anemia, chrons, IBS, ulcerative colitis, lowr GI bleed, hemorrhoids, constipation, psoriasis, migraines, chronic low back and cervical pain, scoliosis, arhtritis in multiple joints, gout bilateral feet, History of Any Multi-Drug Resistant Organisms: None Reported Past Surgical History: Cholecystectomy, Orthopedic Surgery Additional Past Surgical History / Comment(s): L oophorectomy d/t cyst, D&C, colonoscopy, L carpal tunnel release, Past Anesthesia/Blood Transfusion Reactions: Motion Sickness, Postoperative Nausea & Vomiting (PONV) Past Psychological History: Anxiety, Bipolar, Depression, Schizophrenia Smoking Status: Vaper Past Alcohol Use History: Occasional Past Drug Use History: Cocaine - Past Family History Mother History Unknown: Yes Family Medical History: Cancer Additional Family Medical History / Comment(s): Mother had breast cancer and metnal illness She is living. Father Family Medical History: Cancer Additional Family Medical History / Comment(s): Father is . He had agent orange exposure. He had liver cancer, bowel to brain cancer. General Exam Limitations: no limitations General appearance: alert, in no apparent distress Head exam: Present: atraumatic, normocephalic Eye exam: Present: normal appearance. Absent: scleral icterus, conjunctival injection, periorbital swelling, periorbital tenderness ENT exam: Present: mucous membranes moist Respiratory exam: Present: normal lung sounds bilaterally. Absent: respiratory distress, wheezes, rales, rhonchi, stridor, chest wall tenderness, accessory muscle use Cardiovascular Exam: Present: regular rate GI/Abdominal exam: Present: soft. Absent: distended, tenderness, rebound, rigid External exam: Absent: lacerations Speculum exam: Present: vaginal bleeding (moderate uterine bleeding). Absent: erythema Extremities exam: Present: normal inspection, full ROM, normal capillary refill. Absent: tenderness, pedal edema Back exam: Present: normal inspection, full ROM. Absent: tenderness, CVA tenderness (R), CVA tenderness (L) Neurological exam: Present: alert, oriented X3 Psychiatric exam: Present: normal affect, normal mood Skin exam: Present: warm, dry, normal color. Absent: cyanosis, diaphoretic, petechiae, pallor Course Vital Signs 05/01/22 05/01/22 05/01/22 08:39 09:20 11:34 Temperature 97.8 F 97.7 F 98.2 F Pulse Rate 64 68 70 Respiratory 22 16 16 Rate Blood Pressure 129/55 108/76 128/80 O2 Sat by Pulse 98 97 98 Oximetry Medical Decision Making - Medical Decision Making Vaginal exam performed no abnormalities, moderate vaginal bleeding from the c ervix noted. No evidence of lacerations. Hemoglobin and hematocrit are stable. No signs are stable. She was given direction to follow up with [facility] for continuation of care. Instructed to increase her fluid intake. She was given underwear and multiple pads to use. She was instructed not to use toilet paper in the vagina. Urinalysis was sent for culture. Case discussed with Dr. Pastor. - Lab Data Result diagrams: 05/01/22 09:06 Lab Results 05/01/22 05/01/22 05/01/22 Range/Units 09:06 09:06 09:17 WBC 9.9 (3.8-10.6) k/uL RBC 5.11 (3.80-5.40) m/uL Hgb 13.5 (11.4-16.0) gm/dL Hct 41.8 (34.0-46.0) % MCV 81.7 (80.0-100.0) fL MCH 26.3 (25.0-35.0) pg MCHC 32.2 (31.0-37.0) g/dL RDW 15.4 (11.5-15.5) % Plt Count 250 (150-450) k/uL MPV 7.3 Neutrophils % 70 % Lymphocytes % 17 % Monocytes % 8 % Eosinophils % 3 % Basophils % 0 % Neutrophils # 6.9 (1.3-7.7) k/uL Lymphocytes # 1.7 (1.0-4.8) k/uL Monocytes # 0.8 (0-1.0) k/uL Eosinophils # 0.3 (0-0.7) k/uL Basophils # 0.0 (0-0.2) k/uL Urine Color Yellow Urine Appearance Cloudy H (Clear) Urine pH 5.5 (5.0-8.0) Ur Specific [place] 1.023 (1.001-1.035) Urine Protein Trace H (Negative) Urine Glucose (UA) Negative (Negative) Urine Ketones Negative (Negative) Urine Blood Large H (Negative) Urine Nitrite Negative (Negative) Urine Bilirubin Negative (Negative) Urine Urobilinogen <2.0 (<2.0) mg/dL Ur Leukocyte Esterase Trace H (Negative) Urine RBC >182 H (0-5) /hpf Urine WBC 31 H (0-5) /hpf Ur Squamous Epith Cells 3 (0-4) /hpf Amorphous Sediment Rare H (None) /hpf Urine Bacteria Rare H (None) /hpf Urine Mucus Occasional H (None) /hpf Urine HCG, Qual Not Detected (Not Detectd) Disposition Clinical Impression: Vaginal bleeding Disposition: HOME SELF-CARE Condition: Good Instructions (If sedation given, give patient instructions): Abnormal (Dysfunctional) Uterine Bleeding (ED) Additional Instructions: Increase your fluid intake. Use pads or tampons, do not put toilet paper in your vagina this increases your risk of infection. Follow-up with [facility] next week. Return to the emergency room with any new or concerning symptoms including increased pain, dizziness or difficulty breathing. Is patient prescribed a controlled substance at d/c from ED?: No Referrals: [facility] [Primary Care Provider] - 1-2 days Kassandra Tong DO [Doctor of Osteopathic Medicine] - 1-2 days Time of Disposition: 11:05
[2022-05-01 09:25] VITALS: RESP 16
[2022-05-01 09:44] LABS: Basophils % (A) 0 %; Eosinophils # (A) 0.3 k/uL (0-0.7); Eosinophils % (A) 3 %; HCT 41.8 % (34.0-46.0); HGB 13.5 gm/dL (11.4-16.0); Lymphocytes # (A) 1.7 k/uL (1.0-4.8); Lymphocytes % (A) 17 %; MCH 26.3 pg (25.0-35.0); MCHC 32.2 g/dL (31.0-37.0); MCV 81.7 fL (80.0-100.0); Mean Platelet Volume 7.3; Monocytes # (A) 0.8 k/uL (0-1.0); Monocytes % (A) 8 %; Neutrophils # (A) 6.9 k/uL (1.3-7.7); Neutrophils % (A) 70 %; Platelet Count 250 k/uL (150-450); RBC 5.11 m/uL (3.80-5.40); RDW 15.4 % (11.5-15.5); WBC 9.9 k/uL (3.8-10.6)
[2022-05-01 09:48] LABS: Amorphous Sediment,Urine Rare /hpf; Appearance,Urine Cloudy (Clear); Bacteria,Urine Rare /hpf; Bilirubin,Urine Negative (Negative); Blood,Urine Large (Negative); Color,Urine Yellow; Glucose,Urine (UA) Negative (Negative); Ketones,Urine Negative (Negative); Leukocyte Esterase,Urine Trace (Negative); Mucus,Urine Occasional /hpf; Nitrite,Urine Negative (Negative); PH, Urine 5.5 (5.0-8.0); Protein,Urine Trace (Negative); RBC,Urine >182 /hpf (0-5); Specific Gravity,Urine 1.023 (1.001-1.035); Squamous Epithelial Cell,Urine 3 /hpf (0-4); Urobilinogen,Urine <2.0 mg/dL (<2.0); WBC,Urine 31 /hpf (0-5)
[2022-05-01 11:35] VITALS: BP 128/80; PULSE 70; TEMP 98.2
== END 2022-05-01 11:26 | disposition home or self-care (01) ==
LOC: EC 08:37
DX: N93.9 Abnormal uterine and vaginal bleeding, unspecified (principal); J44.9 Chronic obstructive pulmonary disease, unspecified; K21.9 Gastro-esophageal reflux disease without esophagitis; I11.0 Hypertensive heart disease with heart failure; I50.9 Heart failure, unspecified; F17.290 Nicotine dependence, other tobacco product, uncomplicated; Z90.721 Acquired absence of ovaries, unilateral; Z90.49 Acquired absence of other specified parts of digestive tract; Z88.0 Allergy status to penicillin; Z88.1 Allergy status to other antibiotic agents; Z91.010 Allergy to peanuts; Z91.013 Allergy to seafood; Z88.8 Allergy status to other drugs, medicaments and biological substances; Z91.041 Radiographic dye allergy status; Z79.51 Long term (current) use of inhaled steroids; Z79.82 Long term (current) use of aspirin; Z79.899 Other long term (current) drug therapy
CPT/HCPCS: 36415; 81001; 81025; 85025; 87086; 99284

== ENCOUNTER 2022-06-26 07:35 | Emergency (ER) | payer OTHER ==
[2022-06-26 07:43] VITALS: BP 134/87; PULSE 78; RESP 16; TEMP 97.5
--- NOTE | 2022-06-26 08:14 | ED ---
General Adult HPI - General Chief complaint: Psychiatric Symptoms Stated complaint: EPS eval Time Seen by Provider: 06/26/22 07:37 Source: patient Mode of arrival: ambulatory Limitations: no limitations - History of Present Illness Initial comments: Dictation was produced using [employer] dictation software. please excuse any grammatical, word or spelling errors. Chief Complaint: 42 yo female presents emergency department for depression and suicidal ideation History of Present Illness: 42-year-old female presents emergency Department with 1 week of depression suicidal ideation. She does not have a specific plan. She's been admitted to inpatient psychiatric unit recently. States that it helped. Since being discharged states that she is experiencing recurrence of depression with suicidal ideation. Patient denies any medical complaints today. Patient requesting to be admitted back to mental health unit. The ROS documented in this emergency department record has been reviewed and confirmed by me. Those systems with pertinent positive or negative responses have been documented in the HPI. All other systems are other negative and/or noncontributory. PHYSICAL EXAM: General Impression: Alert and oriented x3, not in acute distress HEENT: Normocephalic atraumatic, extra-ocular movements intact, pupils equal and reactive to light bilaterally, mucous membranes moist. Cardiovascular: Heart regular rate and rhythm Chest: Able to complete full sentences, no retractions, no tachypnea Musculoskeletal: Pulses present and equal in all extremities, no peripheral edema Motor: no focal deficits noted Neurological: CN II-XII grossly intact, no focal motor or sensory deficits noted Skin: Intact with no visualized rashes Psych: Normal affect and mood ED course: 42-year-old female presents with depression suicidal ideation. Vital signs upon arrival are within acceptable limits. Physical examination is benign. Patient medically cleared for EPS evaluation. Chart review was performed. Patient advised by EPS. EPS recommends discharge. Patient observed in emergency department for 5 hours and 30 minutes. Reevaluated at bedside at 1:00 PM pharmacy medical condition. Patient given outpatient resources. Critical Care: no Critical Care time: n/a - Related Data Home Medications Medication Instructions Recorded Confirmed RX: Fluticasone Nasal [place] 1 spray EA NOSTRIL DAILY 12/16/18 12/29/21 [Flonase Nasal [place]] RX: Zonisamide [Zonegran] 300 mg PO HS 12/16/18 12/29/21 RX: Montelukast [Singulair] 10 mg PO HS 12/16/19 12/29/21 RX: Omeprazole 20 mg PO DAILY 12/16/19 12/29/21 RX: allopurinoL [Zyloprim] 100 mg PO DAILY 12/16/19 12/29/21 RX: Aspirin EC [Ecotrin Low Dose] 81 mg PO DAILY 04/12/20 12/29/21 RX: Naltrexone HCl [Revia] 50 mg PO DAILY 04/12/20 12/29/21 RX: hydrOXYzine pamoate [Vistaril] 25 mg PO TID 04/12/20 12/29/21 RX: Ibuprofen [Motrin] 400 mg PO BID PRN 09/04/20 12/29/21 RX: calcium polycarbophiL 1,250 mg PO BID PRN 09/04/20 12/29/21 [Fibercon] RX: lamoTRIgine [LaMICtal] 200 mg PO DAILY 09/04/20 12/29/21 RX: polyethylene glycoL 3350 17 gm PO DAILY PRN 09/04/20 12/29/21 [Miralax] RX: Loratadine [Claritin] 10 mg PO DAILY 12/22/20 12/29/21 Albuterol Sulfate [Proair Hfa] 2 puff INHALATION RT-QID PRN 12/12/21 12/29/21 Aripiprazole Lauroxil [Aristada] 882 mg IM Q28D 12/12/21 12/29/21 Baclofen [Lioresal] 10 mg PO HS PRN 12/12/21 12/29/21 Benztropine Mesylate [Cogentin] 2 mg PO BID 12/12/21 12/29/21 Cholecalciferol [Vitamin D3 (125 125 mcg PO DAILY 12/12/21 12/29/21 Mcg = 5000 Iu)] Docusate 250mg Cap 250 mg PO BID PRN 12/12/21 12/29/21 Fenofibrate [Lofibra] 54 mg PO DAILY 12/12/21 12/29/21 Fluticasone Propionate [Flovent 2 puff INHALATION RT-BID 12/12/21 12/29/21 Hfa 220 mcg] Lacosamide [Vimpat] 200 mg PO BID 12/12/21 12/29/21 Linaclotide [Linzess] 145 mcg PO DAILY 12/12/21 12/29/21 Nystatin 100,000Unit/gm Cream 1 applic TOPICAL BID PRN 12/12/21 12/29/21 [Mycostatin Cream] RX: Folic Acid 1 mg PO DAILY 12/12/21 12/29/21 RX: Glucerna Shake 1 can PO DAILY 12/12/21 12/29/21 RX: metFORMIN HCL [Glucophage] 1,000 mg PO BID 12/12/21 12/29/21 traZODone HCL [Desyrel] 200 mg PO HS PRN 12/12/21 12/29/21 Pepto Tab 2 tab PO Q6H PRN 12/29/21 12/29/21 Previous Rx's Medication Instructions Recorded RX: DULoxetine HCL [Cymbalta] 60 mg PO DAILY 30 Days capsule. 03/08/20 Ondansetron Odt [Zofran Odt] 4 mg PO Q8HR PRN #20 tab 02/08/22 Allergies Allergy/AdvReac Type Severity Reaction Status Date / Time Iodinated Contrast Media Allergy Anaphylaxis Verified 06/26/22 07:38 [Iodinated Contrast Media - IV Dye] peanut Allergy Anaphylaxis Verified 06/26/22 07:38 Penicillins Allergy Anaphylaxis Verified 06/26/22 07:38 shellfish derived Allergy Anaphylaxis Verified 06/26/22 07:38 cephalexin monohydrate AdvReac Nausea & Verified 06/26/22 07:38 [From Keflex] Vomiting & Diarrhea lacosamide [From Vimpat] AdvReac Anaphylaxis Verified 06/26/22 07:38 trazodone AdvReac bp Verified 06/26/22 07:38 issues/dissiness--patient takes at home Review of Systems ROS Statement: Those systems with pertinent positive or pertinent negative responses have been documented in the HPI. ROS Other: All systems not noted in ROS Statement are negative. Past Medical History Past Medical History: Asthma, Heart Failure, COPD, Fibromyalgia, GERD/Reflux, GI Bleed, Hypertension, Liver Disease, Osteoarthritis (OA), Pneumonia, Seizure Disorder, Skin Disorder Additional Past Medical History / Comment(s): Bronchitis, gestational diabetes, seizures with last one 09/03/20, sickle cell trait, liver cirrhosis, anemia, chrons, IBS, ulcerative colitis, lowr GI bleed, hemorrhoids, constipation, psoriasis, migraines, chronic low back and cervical pain, scoliosis, arhtritis in multiple joints, gout bilateral feet, History of Any Multi-Drug Resistant Organisms: None Reported Past Surgical History: Cholecystectomy, Orthopedic Surgery Additional Past Surgical History / Comment(s): L oophorectomy d/t cyst, D&C, colonoscopy, L carpal tunnel release, Past Anesthesia/Blood Transfusion Reactions: Motion Sickness, Postoperative Nausea & Vomiting (PONV) Past Psychological History: Anxiety, Bipolar, Depression, Schizophrenia Smoking Status: Vaper Past Alcohol Use History: Occasional Past Drug Use History: Cocaine - Past Family History Mother History Unknown: Yes Family Medical History: Cancer Additional Family Medical History / Comment(s): Mother had breast cancer and metnal illness She is living. Father Family Medical History: Cancer Additional Family Medical History / Comment(s): Father is . He had agent orange exposure. He had liver cancer, bowel to brain cancer. General Exam Limitations: no limitations Course Vital Signs 06/26/22 07:38 Temperature 97.5 F L Pulse Rate 78 Respiratory 16 Rate Blood Pressure 134/87 O2 Sat by Pulse 98 Oximetry Disposition Clinical Impression: Depression Disposition: HOME SELF-CARE Condition: Good Instructions (If sedation given, give patient instructions): Help Prevent Suicide (ED) Is patient prescribed a controlled substance at d/c from ED?: No Referrals: [facility] [Primary Care Provider] - 1-2 days Time of Disposition: 13:05
== END 2022-06-26 13:38 | disposition home or self-care (01) ==
LOC: EC 07:35
DX: F32.A Depression, unspecified (principal); J45.909 Unspecified asthma, uncomplicated; J44.9 Chronic obstructive pulmonary disease, unspecified; K21.9 Gastro-esophageal reflux disease without esophagitis; F41.9 Anxiety disorder, unspecified; F17.210 Nicotine dependence, cigarettes, uncomplicated; I11.0 Hypertensive heart disease with heart failure; I50.9 Heart failure, unspecified; Z88.0 Allergy status to penicillin; Z88.1 Allergy status to other antibiotic agents; Z91.041 Radiographic dye allergy status; Z91.010 Allergy to peanuts; Z91.013 Allergy to seafood; Z88.8 Allergy status to other drugs, medicaments and biological substances; Z79.83 Long term (current) use of bisphosphonates; Z79.82 Long term (current) use of aspirin; Z79.899 Other long term (current) drug therapy
CPT/HCPCS: 82075; 99285

== ENCOUNTER 2022-07-01 13:39 | Emergency (ER) | payer OTHER ==
[2022-07-01 14:53] VITALS: TEMP 97.7
[2022-07-01] MEDS ORDERED: LORazepam 2 MG/ML INJ IV STA (19:08)
--- NOTE | 2022-07-01 19:19 | ED ---
Seizure HPI - General Chief Complaint: Seizure Stated Complaint: seizures Time Seen by Provider: 07/01/22 19:06 Source: patient, RN notes reviewed Mode of arrival: ambulatory Limitations: no limitations - History of Present Illness Initial Comments: This is a pleasant 42-year-old female with a history of seizure disorder. She presents to the emergency department stating that she has had 3 seizures today. Patient follows for general medical care at the [facility] and has a neurologist in [place]. Patient on Zonegran and Vimpat for seizure control. Apparently the patient has been having increased seizures and was started on Vimpat 1 week ago. Patient believes she has abnormal reactions to this medication. Patient states she was before and had what she is calling ALLERGIC reactions to it. Patient states that her neurologist wanted to try her on it again. Patient states that she had a funny feeling in her throat so she stopped the medication yesterday. Patient had 3 seizures today which or weakness. Tonic-clonic with episodes of unresponsiveness and postictal states. Patient denying any pain at this time. No headache, no fever or chills, no changes in vision or hearing, no sore throat or difficulty with speech, no neck pain, no chest pain or shortness of breath, no abdominal pain, no nausea or vomiting, no changes in urination or bowel movements, no numbness or tingling, no extremity pain, no skin rashes or lesions. Past medical, surgical, social, and family history reviewed. - Related Data Home Medications Medication Instructions Recorded Confirmed Fluticasone Nasal [place] [Flonase 1 spray EA NOSTRIL DAILY 12/16/18 12/29/21 Nasal [place]] Zonisamide [Zonegran] 300 mg PO HS 12/16/18 12/29/21 Montelukast [Singulair] 10 mg PO HS 12/16/19 12/29/21 Omeprazole 20 mg PO DAILY 12/16/19 12/29/21 allopurinoL [Zyloprim] 100 mg PO DAILY 12/16/19 12/29/21 Aspirin EC [Ecotrin Low Dose] 81 mg PO DAILY 04/12/20 12/29/21 Naltrexone HCl [Revia] 50 mg PO DAILY 04/12/20 12/29/21 hydrOXYzine pamoate [Vistaril] 25 mg PO TID 04/12/20 12/29/21 Ibuprofen [Motrin] 400 mg PO BID PRN 09/04/20 12/29/21 calcium polycarbophiL [Fibercon] 1,250 mg PO BID PRN 09/04/20 12/29/21 lamoTRIgine [LaMICtal] 200 mg PO DAILY 09/04/20 12/29/21 polyethylene glycoL 3350 [Miralax] 17 gm PO DAILY PRN 09/04/20 12/29/21 Loratadine [Claritin] 10 mg PO DAILY 12/22/20 12/29/21 Albuterol Sulfate [Proair Hfa] 2 puff INHALATION RT-QID PRN 12/12/21 12/29/21 Aripiprazole Lauroxil [Aristada] 882 mg IM Q28D 12/12/21 12/29/21 Baclofen [Lioresal] 10 mg PO HS PRN 12/12/21 12/29/21 Benztropine Mesylate [Cogentin] 2 mg PO BID 12/12/21 12/29/21 Cholecalciferol [Vitamin D3 (125 125 mcg PO DAILY 12/12/21 12/29/21 Mcg = 5000 Iu)] Docusate 250mg Cap 250 mg PO BID PRN 12/12/21 12/29/21 Fenofibrate [Lofibra] 54 mg PO DAILY 12/12/21 12/29/21 Fluticasone Propionate [Flovent 2 puff INHALATION RT-BID 12/12/21 12/29/21 Hfa 220 mcg] Folic Acid 1 mg PO DAILY 12/12/21 12/29/21 Glucerna Shake 1 can PO DAILY 12/12/21 12/29/21 Lacosamide [Vimpat] 200 mg PO BID 12/12/21 12/29/21 Linaclotide [Linzess] 145 mcg PO DAILY 12/12/21 12/29/21 Nystatin 100,000Unit/gm Cream 1 applic TOPICAL BID PRN 12/12/21 12/29/21 [Mycostatin Cream] metFORMIN HCL [Glucophage] 1,000 mg PO BID 12/12/21 12/29/21 traZODone HCL [Desyrel] 200 mg PO HS PRN 12/12/21 12/29/21 Pepto Tab 2 tab PO Q6H PRN 12/29/21 12/29/21 Previous Rx's Medication Instructions Recorded DULoxetine HCL [Cymbalta] 60 mg PO DAILY 30 Days capsule. 03/08/20 Ondansetron Odt [Zofran Odt] 4 mg PO Q8HR PRN #20 tab 02/08/22 Sulfamethox-Tmp 800-160Mg [Bactrim 1 tab PO Q12HR #14 tab 07/01/22 DS 800-160 mg] busPIRone HCl [Buspar] 5 mg PO BID PRN #12 tab 07/01/22 Allergies Allergy/AdvReac Type Severity Reaction Status Date / Time Iodinated Contrast Media Allergy Anaphylaxis Verified 07/01/22 14:53 [Iodinated Contrast Media - IV Dye] peanut Allergy Anaphylaxis Verified 07/01/22 14:53 Penicillins Allergy Anaphylaxis Verified 07/01/22 14:53 shellfish derived Allergy Anaphylaxis Verified 07/01/22 14:53 cephalexin monohydrate AdvReac Nausea & Verified 07/01/22 14:53 [From Keflex] Vomiting & Diarrhea lacosamide [From Vimpat] AdvReac Anaphylaxis Verified 07/01/22 14:53 trazodone AdvReac bp Verified 07/01/22 14:53 issues/dissiness--patient takes at home Review of Systems ROS Statement: Those systems with pertinent positive or pertinent negative responses have been documented in the HPI. ROS Other: All systems not noted in ROS Statement are negative. Past Medical History Past Medical History: Asthma, Heart Failure, COPD, Fibromyalgia, GERD/Reflux, GI Bleed, Hypertension, Liver Disease, Osteoarthritis (OA), Pneumonia, Seizure Disorder, Skin Disorder Additional Past Medical History / Comment(s): Bronchitis, gestational diabetes, seizures with last one 09/03/20, sickle cell trait, liver cirrhosis, anemia, chrons, IBS, ulcerative colitis, lowr GI bleed, hemorrhoids, constipation, psoriasis, migraines, chronic low back and cervical pain, scoliosis, arhtritis in multiple joints, gout bilateral feet, History of Any Multi-Drug Resistant Organisms: None Reported Past Surgical History: Cholecystectomy, Orthopedic Surgery Additional Past Surgical History / Comment(s): L oophorectomy d/t cyst, D&C, colonoscopy, L carpal tunnel release, Past Anesthesia/Blood Transfusion Reactions: Motion Sickness, Postoperative Nausea & Vomiting (PONV) Past Psychological History: Anxiety, Bipolar, Depression, Schizophrenia Smoking Status: Vaper Past Alcohol Use History: Occasional Past Drug Use History: Cocaine - Past Family History Mother History Unknown: Yes Family Medical History: Cancer Additional Family Medical History / Comment(s): Mother had breast cancer and metnal illness She is living. Father Family Medical History: Cancer Additional Family Medical History / Comment(s): Father is . He had agent orange exposure. He had liver cancer, bowel to brain cancer. General Exam - General Exam Comments Initial Comments: Vital signs stable, patient afebrile. Patient does not appear to be ill or toxi c. Cranial nerves II through XII are intact. Limitations: no limitations General appearance: obese Head exam: Present: atraumatic, normocephalic, normal inspection Eye exam: Present: normal appearance, PERRL, EOMI. Absent: scleral icterus, conjunctival injection, periorbital swelling ENT exam: Present: normal exam, normal oropharynx, mucous membranes dry, mucous membranes moist, normal external ear exam Neck exam: Present: normal inspection, full ROM. Absent: tenderness, meningismus, lymphadenopathy Respiratory exam: Present: normal lung sounds bilaterally. Absent: respiratory distress, wheezes, rales, rhonchi, stridor, chest wall tenderness Cardiovascular Exam: Present: regular rate, normal rhythm, normal heart sounds. Absent: systolic murmur, diastolic murmur, rubs, gallop, clicks GI/Abdominal exam: Present: soft, normal bowel sounds. Absent: distended, t enderness, guarding, rebound, rigid Extremities exam: Present: normal inspection, full ROM, normal capillary refill. Absent: tenderness, pedal edema, joint swelling, calf tenderness Back exam: Present: normal inspection Neurological exam: Present: alert, oriented X3, CN II-XII intact, normal gait. Absent: altered, motor sensory deficit Psychiatric exam: Present: normal affect, normal mood Skin exam: Present: warm, dry, intact, normal color. Absent: rash Course Vital Signs 07/01/22 07/01/22 14:50 20:29 Temperature 97.7 F Pulse Rate 61 69 Respiratory 16 18 Rate Blood Pressure 126/68 135/77 O2 Sat by Pulse 97 96 Oximetry - Reevaluation(s) Reevaluation #1: 07/01/22 20:36 Patient reevaluated, resting comfortably in bed. Neurologically intact. Cranial nerves II through XII intact. Alert and oriented 4. This urinalysis shows evidence of infectious process. We'll treat with Bactrim DS. Patient also came up positive for cocaine. We'll discuss illicit drug abuse with the patient. Suspect the patient can be discharged to follow-up with her neurologist. The case was discussed in detail with ED attending physician. Presentation, findings, treatment plan discussed in detail. Director New Product Dr. Love 07/01/22 20:47 Medical Decision Making - Medical Decision Making Patient has been having breakthrough seizures despite being treated with 2 anticonvulsant medications. Patient stopped Vimpat yesterday believing that she was having some side effects to the medication which she was not tolerating. Has had no recent illness. We'll have the patient restart her Vimpat and her Zonegron. Patient to follow- up with her neurologist. Discussed drug abuse with the patient. Patient does admit to crack cocaine use. Sounds like the patient was having breakthrough seizures, this is why the [facility]'s neurologist restarted her on Vimpat again last week. Does not sound like the patient is having any symptoms related to anaphylaxis. Patient may be having some side effects which are relatively mild. We'll have the patient restart this medication. I did give her a few days worth of for anxiety. We will stay away from any controlled substances with the patient. Bactrim DS for urinary tract infection as the patient did show evidence of abnormal urine. Certainly this could be lowering the patient's seizure threshold. Patient was in no distress at discharge. Neurologically intact. Did not appear to be systemically ill. Patient was told to return to the ER for any signs or symptoms worsen. Told to return immediately if any other problems arise. All questions answered. Treatment plan discussed. Patient in agreement Every effort has been made to ensure accuracy of this dictation. However, due to the limitations of electronic medical records and dictation devices, errors in charting still occur. Resident Dr. Love - Lab Data Result diagrams: 07/01/22 19:37 07/01/22 20:30 Lab Results 07/01/22 07/01/22 07/01/22 Range/Units 19:37 19:37 19:37 WBC 15.2 H (3.8-10.6) k/uL RBC 4.85 (3.80-5.40) m/uL Hgb 13.2 (11.4-16.0) gm/dL Hct 40.8 (34.0-46.0) % MCV 84.1 (80.0-100.0) fL MCH 27.3 (25.0-35.0) pg MCHC 32.5 (31.0-37.0) g/dL RDW 14.9 (11.5-15.5) % Plt Count 259 (150-450) k/uL MPV 7.9 Neutrophils % 69 % Lymphocytes % 22 % Monocytes % 4 % Eosinophils % 3 % Basophils % 0 % Neutrophils # 10.5 H (1.3-7.7) k/uL Lymphocytes # 3.4 (1.0-4.8) k/uL Monocytes # 0.6 (0-1.0) k/uL Eosinophils # 0.5 (0-0.7) k/uL Basophils # 0.1 (0-0.2) k/uL Sodium (137-145) mmol/L Potassium (3.5-5.1) mmol/L Chloride (98-107) mmol/L Carbon Dioxide (22-30) mmol/L Anion Gap mmol/L BUN (7-17) mg/dL Creatinine (0.52-1.04) mg/dL Est GFR (CKD-EPI)AfAm (>60 ml/min/1.73 sqM) Est GFR (CKD-EPI)NonAf (>60 ml/min/1.73 sqM) Glucose (74-99) mg/dL Calcium (8.4-10.2) mg/dL Magnesium (1.6-2.3) mg/dL Total Bilirubin (0.2-1.3) mg/dL AST (14-36) U/L ALT (4-34) U/L Alkaline Phosphatase (38-126) U/L Total Protein (6.3-8.2) g/dL Albumin (3.5-5.0) g/dL Urine Color Yellow Urine Appearance Cloudy H (Clear) Urine pH 5.0 (5.0-8.0) Ur Specific [place] 1.022 (1.001-1.035) Urine Protein Negative (Negative) Urine Glucose (UA) Negative (Negative) Urine Ketones Negative (Negative) Urine Blood Negative (Negative) Urine Nitrite Negative (Negative) Urine Bilirubin Negative (Negative) Urine Urobilinogen <2.0 (<2.0) mg/dL Ur Leukocyte Esterase Small H (Negative) Urine RBC 3 (0-5) /hpf Urine WBC 11 H (0-5) /hpf Ur Squamous Epith Cells 5 H (0-4) /hpf Urine Bacteria Many H (None) /hpf Hyaline Casts 1 (0-2) /lpf Urine Mucus Occasional H (None) /hpf Urine Opiates Screen Not Detected (NotDetected) Ur Oxycodone Screen Detected H (NotDetected) Urine Methadone Screen Not Detected (NotDetected) Ur Propoxyphene Screen Not Detected (NotDetected) Ur Barbiturates Screen Not Detected (NotDetected) U Tricyclic Antidepress Not Detected (NotDetected) Ur Phencyclidine Scrn Not Detected (NotDetected) Ur Amphetamines Screen Not Detected (NotDetected) U Methamphetamines Scrn Not Detected (NotDetected) U Benzodiazepines Scrn Not Detected (NotDetected) Urine Cocaine Screen Detected H (NotDetected) U Marijuana (THC) Screen Not Detected (NotDetected) 07/01/22 Range/Units 20:30 WBC (3.8-10.6) k/uL RBC (3.80-5.40) m/uL Hgb (11.4-16.0) gm/dL Hct (34.0-46.0) % MCV (80.0-100.0) fL MCH (25.0-35.0) pg MCHC (31.0-37.0) g/dL RDW (11.5-15.5) % Plt Count (150-450) k/uL MPV Neutrophils % % Lymphocytes % % Monocytes % % Eosinophils % % Basophils % % Neutrophils # (1.3-7.7) k/uL Lymphocytes # (1.0-4.8) k/uL Monocytes # (0-1.0) k/uL Eosinophils # (0-0.7) k/uL Basophils # (0-0.2) k/uL Sodium 139 (137-145) mmol/L Potassium 4.0 (3.5-5.1) mmol/L Chloride 110 H (98-107) mmol/L Carbon Dioxide 21 L (22-30) mmol/L Anion Gap 8 mmol/L BUN 13 (7-17) mg/dL Creatinine 0.77 (0.52-1.04) mg/dL Est GFR (CKD-EPI)AfAm >90 (>60 ml/min/1.73 sqM) Est GFR (CKD-EPI)NonAf >90 (>60 ml/min/1.73 sqM) Glucose 108 H (74-99) mg/dL Calcium 9.0 (8.4-10.2) mg/dL Magnesium 1.8 (1.6-2.3) mg/dL Total Bilirubin 0.1 L (0.2-1.3) mg/dL AST 28 (14-36) U/L ALT 31 (4-34) U/L Alkaline Phosphatase 118 (38-126) U/L Total Protein 7.3 (6.3-8.2) g/dL Albumin 4.1 (3.5-5.0) g/dL Urine Color Urine Appearance (Clear) Urine pH (5.0-8.0) Ur Specific [place] (1.001-1.035) Urine Protein (Negative) Urine Glucose (UA) (Negative) Urine Ketones (Negative) Urine Blood (Negative) Urine Nitrite (Negative) Urine Bilirubin (Negative) Urine Urobilinogen (<2.0) mg/dL Ur Leukocyte Esterase (Negative) Urine RBC (0-5) /hpf Urine WBC (0-5) /hpf Ur Squamous Epith Cells (0-4) /hpf Urine Bacteria (None) /hpf Hyaline Casts (0-2) /lpf Urine Mucus (None) /hpf Urine Opiates Screen (NotDetected) Ur Oxycodone Screen (NotDetected) Urine Methadone Screen (NotDetected) Ur Propoxyphene Screen (NotDetected) Ur Barbiturates Screen (NotDetected) U Tricyclic Antidepress (NotDetected) Ur Phencyclidine Scrn (NotDetected) Ur Amphetamines Screen (NotDetected) U Methamphetamines Scrn (NotDetected) U Benzodiazepines Scrn (NotDetected) Urine Cocaine Screen (NotDetected) U Marijuana (THC) Screen (NotDetected) - EKG Data EKG Comments: EKG done at 2033 and read by me reveals sinus rhythm with right bundle branch block. This was seen on the previous study from November 2020. Patient does have some change in T-wave amplitude. However no evidence of definitive acute changes. Rate 61, QRS duration 175, IA 161, QTC 477. - Radiology Data Radiology results: report reviewed (Chest x-ray interpreted by me reveals no evidence for acute pathology. Concur with radiology report), image reviewed Disposition Clinical Impression: Breakthrough seizure, Urinary tract infection, Cocaine use Disposition: HOME SELF-CARE Condition: Stable Instructions (If sedation given, give patient instructions): Urinary Tract Infection in Women (ED), Cocaine Abuse (ED), Recurrent Seizures in Adults (ED) Additional Instructions: Take antibiotics as directed. Restart your seizure medications as directed. Call your neurologist in the morning without fail. Refrain from using any illicit substances. He cannot positive for cocaine today . Do not use illegal drugs. Follow-up with your regular physician as directed. Return to the ER immediately if any symptoms worsen, new symptoms arise, or any other problems develop. Prescriptions: Sulfamethox-Tmp 800-160Mg [Bactrim DS 800-160 mg] 1 tab PO Q12HR #14 tab busPIRone HCl [Buspar] 5 mg PO BID PRN #12 tab PRN Reason: Anxiety Is patient prescribed a controlled substance at d/c from ED?: No Referrals: [facility] [Primary Care Provider] - 1-2 days Time of Disposition: 20:52
[2022-07-01 19:47] LABS: Basophils # (A) 0.1 k/uL (0-0.2); Basophils % (A) 0 %; Eosinophils # (A) 0.5 k/uL (0-0.7); Eosinophils % (A) 3 %; HCT 40.8 % (34.0-46.0); HGB 13.2 gm/dL (11.4-16.0); Lymphocytes # (A) 3.4 k/uL (1.0-4.8); Lymphocytes % (A) 22 %; MCH 27.3 pg (25.0-35.0); MCHC 32.5 g/dL (31.0-37.0); MCV 84.1 fL (80.0-100.0); Mean Platelet Volume 7.9; Monocytes # (A) 0.6 k/uL (0-1.0); Monocytes % (A) 4 %; Neutrophils # (A) 10.5 k/uL (1.3-7.7); Neutrophils % (A) 69 %; Platelet Count 259 k/uL (150-450); RBC 4.85 m/uL (3.80-5.40); RDW 14.9 % (11.5-15.5); WBC 15.2 k/uL (3.8-10.6)
--- NOTE | 2022-07-01 19:52 | XR ---
EXAMINATION TYPE: XR chest 1V DATE OF EXAM: 07/01/2022 7:27 PM COMPARISON: Chest radiographs from 12/21/2020 TECHNIQUE: XR chest 1V Portable AP radiograph of the chest. CLINICAL INDICATION:Female, 42 years old with history of seizure; FINDINGS: Lungs/Pleura: Low lung volumes are present. There is no evidence of pleural effusion, focal consolida tion, or pneumothorax. Pulmonary vascularity: Unremarkable. Heart/mediastinum: Cardiomediastinal silhouette is unremarkable. Musculoskeletal: No acute osseous pathology. IMPRESSION: No acute cardiopulmonary disease/process.
[2022-07-01 19:58] LABS: Appearance,Urine Cloudy (Clear); Bacteria,Urine Many /hpf; Bilirubin,Urine Negative (Negative); Blood,Urine Negative (Negative); Color,Urine Yellow; Glucose,Urine (UA) Negative (Negative); Hyaline Casts,Urine 1 /lpf (0-2); Ketones,Urine Negative (Negative); Leukocyte Esterase,Urine Small (Negative); Mucus,Urine Occasional /hpf; Nitrite,Urine Negative (Negative); Protein,Urine Negative (Negative); RBC,Urine 3 /hpf (0-5); Specific Gravity,Urine 1.022 (1.001-1.035); Squamous Epithelial Cell,Urine 5 /hpf (0-4); Urobilinogen,Urine <2.0 mg/dL (<2.0); WBC,Urine 11 /hpf (0-5)
[2022-07-01 20:00] LABS: Amphetamine Screen,Urine Not Detected (NotDetected); Barbiturate Screen,Urine Not Detected (NotDetected); Benzodiazepines Screen,Urine Not Detected (NotDetected); Cocaine Screen,Urine Detected (NotDetected); Methadone Screen, Urine Not Detected (NotDetected); Opiate Screen,Urine Not Detected (NotDetected); Oxycodone Screen, Urine Detected (NotDetected); Phencyclidine Screen,Urine Not Detected (NotDetected); Tricyclic Antidepressant,Urine Not Detected (NotDetected); Urn Cannabinoid Scrn Not Detected (NotDetected)
[2022-07-01 20:29] VITALS: BP 135/77; PULSE 69; RESP 18
[2022-07-01] MEDS ORDERED: SULFAMETHOX-TMP 800-160MG 1 EACH TAB PO STA (20:36)
[2022-07-01 20:43] LABS: ALT 31 U/L (4-34); AST 28 U/L (14-36); African American GFR (CKD) >90 (>60 ml/min/1.73 sqM); Albumin 4.1 g/dL (3.5-5.0); Alkaline Phosphatase 118 U/L (38-126); Anion Gap 8 mmol/L; Blood Urea Nitrogen 13 mg/dL (7-17); Carbon Dioxide 21 mmol/L (22-30); Chloride 110 mmol/L (98-107); Glucose 108 mg/dL (74-99); Magnesium 1.8 mg/dL (1.6-2.3); Non-African American GFR(CKD) >90 (>60 ml/min/1.73 sqM); Sodium 139 mmol/L (137-145); Total Bilirubin 0.1 mg/dL (0.2-1.3); Total Protein 7.3 g/dL (6.3-8.2)
[2022-07-03 11:41] LABS: Zonisamide (Zonegran) 10 ug/mL (10-40)
== END 2022-07-01 21:22 | disposition home or self-care (01) ==
LOC: EC 13:39
DX: G40.89 Other seizures (principal); N39.0 Urinary tract infection, site not specified; F14.99 Cocaine use, unspecified with unspecified cocaine-induced disorder; J44.9 Chronic obstructive pulmonary disease, unspecified; I11.0 Hypertensive heart disease with heart failure; I50.9 Heart failure, unspecified; K21.9 Gastro-esophageal reflux disease without esophagitis; M19.90 Unspecified osteoarthritis, unspecified site; Z79.83 Long term (current) use of bisphosphonates; Z79.82 Long term (current) use of aspirin; Z79.899 Other long term (current) drug therapy; Z91.014 Allergy to mammalian meats; Z91.010 Allergy to peanuts; Z91.013 Allergy to seafood; Z88.0 Allergy status to penicillin; Z88.1 Allergy status to other antibiotic agents; Z88.8 Allergy status to other drugs, medicaments and biological substances
CPT/HCPCS: 99284; 96374; 36415; 80053; 80203; 83735; 85025; 81001; 80306; 87086; 80235; 71045; J2060

== ENCOUNTER 2022-07-22 14:53 | Emergency (ER) | payer OTHER ==
[2022-07-22 15:05] VITALS: BP 147/79; PULSE 75; RESP 16; TEMP 98.2
[2022-07-22] MEDS ORDERED: ORPHENADRINE 30 MG/ML 2 ML VIAL IM STA (15:45)
--- NOTE | 2022-07-22 15:55 | ED ---
Back Pain HPI - General Chief Complaint: Back Pain/Injury Stated Complaint: lower back pain Time Seen by Provider: 07/22/22 15:34 Source: patient, RN notes reviewed, old records reviewed - History of Present Illness Initial Comments: This is a nontoxic-appearing 42-year-old female presenting mandatory with complaints of left lower back pain. States reinjured her back when turning and twisting to move a box 2 days ago. Patient states chronic back pain L4-L5 diagnosed 4 years ago and states is not a surgical candidate. She had been taking Motrin and using heat with no relief. Patient has seen Dr. Moreno and Dr. Sarah in the past but the no longer take her insurance. She denies any fevers. No nausea vomiting diarrhea. No bowel or bladder incontinence MD Complaint: back pain -: days(s) (3) Similar Symptoms Previously: Yes Place: work Radiation: left leg Quality: sharp Consistency: intermittent Improves With: other (rest) Worsens With: movement Context: while lifting, turning/twisting (moving a box) Associated Symptoms: denies other symptoms Treatments Prior to Arrival: heat therapy, NSAIDS - Related Data Home Medications Medication Instructions Recorded Confirmed Fluticasone Nasal [place] [Flonase 1 spray EA NOSTRIL DAILY 12/16/18 12/29/21 Nasal [place]] Zonisamide [Zonegran] 300 mg PO HS 12/16/18 12/29/21 Montelukast [Singulair] 10 mg PO HS 12/16/19 12/29/21 Omeprazole 20 mg PO DAILY 12/16/19 12/29/21 allopurinoL [Zyloprim] 100 mg PO DAILY 12/16/19 12/29/21 Aspirin EC [Ecotrin Low Dose] 81 mg PO DAILY 04/12/20 12/29/21 Naltrexone HCl [Revia] 50 mg PO DAILY 04/12/20 12/29/21 hydrOXYzine pamoate [Vistaril] 25 mg PO TID 04/12/20 12/29/21 Ibuprofen [Motrin] 400 mg PO BID PRN 09/04/20 12/29/21 calcium polycarbophiL [Fibercon] 1,250 mg PO BID PRN 09/04/20 12/29/21 lamoTRIgine [LaMICtal] 200 mg PO DAILY 09/04/20 12/29/21 polyethylene glycoL 3350 [Miralax] 17 gm PO DAILY PRN 09/04/20 12/29/21 Loratadine [Claritin] 10 mg PO DAILY 12/22/20 12/29/21 Albuterol Sulfate [Proair Hfa] 2 puff INHALATION RT-QID PRN 12/12/21 12/29/21 Aripiprazole Lauroxil [Aristada] 882 mg IM Q28D 12/12/21 12/29/21 Baclofen [Lioresal] 10 mg PO HS PRN 12/12/21 12/29/21 Benztropine Mesylate [Cogentin] 2 mg PO BID 12/12/21 12/29/21 Cholecalciferol [Vitamin D3 (125 125 mcg PO DAILY 12/12/21 12/29/21 Mcg = 5000 Iu)] Docusate 250mg Cap 250 mg PO BID PRN 12/12/21 12/29/21 Fenofibrate [Lofibra] 54 mg PO DAILY 12/12/21 12/29/21 Fluticasone Propionate [Flovent 2 puff INHALATION RT-BID 12/12/21 12/29/21 Hfa 220 mcg] Folic Acid 1 mg PO DAILY 12/12/21 12/29/21 Glucerna Shake 1 can PO DAILY 12/12/21 12/29/21 Lacosamide [Vimpat] 200 mg PO BID 12/12/21 12/29/21 Linaclotide [Linzess] 145 mcg PO DAILY 12/12/21 12/29/21 Nystatin 100,000Unit/gm Cream 1 applic TOPICAL BID PRN 12/12/21 12/29/21 [Mycostatin Cream] metFORMIN HCL [Glucophage] 1,000 mg PO BID 12/12/21 12/29/21 traZODone HCL [Desyrel] 200 mg PO HS PRN 12/12/21 12/29/21 Pepto Tab 2 tab PO Q6H PRN 12/29/21 12/29/21 Previous Rx's Medication Instructions Recorded DULoxetine HCL [Cymbalta] 60 mg PO DAILY 30 Days capsule. 03/08/20 Ondansetron Odt [Zofran Odt] 4 mg PO Q8HR PRN #20 tab 02/08/22 Sulfamethox-Tmp 800-160Mg [Bactrim 1 tab PO Q12HR #14 tab 07/01/22 DS 800-160 mg] busPIRone HCl [Buspar] 5 mg PO BID PRN #12 tab 07/01/22 Lidocaine 5% Patch [Lidoderm] 1 patch TOPICAL DAILY 14 Days #14 07/22/22 patch Allergies Allergy/AdvReac Type Severity Reaction Status Date / Time Iodinated Contrast Media Allergy Anaphylaxis Verified 07/22/22 15:05 [Iodinated Contrast Media - IV Dye] peanut Allergy Anaphylaxis Verified 07/22/22 15:05 Penicillins Allergy Anaphylaxis Verified 07/22/22 15:05 shellfish derived Allergy Anaphylaxis Verified 07/22/22 15:05 cephalexin monohydrate AdvReac Nausea & Verified 07/22/22 15:05 [From Keflex] Vomiting & Diarrhea lacosamide [From Vimpat] AdvReac Anaphylaxis Verified 07/22/22 15:05 trazodone AdvReac bp Verified 07/22/22 15:05 issues/dissiness--patient takes at home Review of Systems ROS Statement: Those systems with pertinent positive or pertinent negative responses have been documented in the HPI. ROS Other: All systems not noted in ROS Statement are negative. Past Medical History Past Medical History: Asthma, Heart Failure, COPD, Fibromyalgia, GERD/Reflux, GI Bleed, Hypertension, Liver Disease, Osteoarthritis (OA), Pneumonia, Seizure Disorder, Skin Disorder Additional Past Medical History / Comment(s): Bronchitis, gestational diabetes, seizures with last one 09/03/20, sickle cell trait, liver cirrhosis, anemia, chrons, IBS, ulcerative colitis, lowr GI bleed, hemorrhoids, constipation, psoriasis, migraines, chronic low back and cervical pain, scoliosis, arhtritis in multiple joints, gout bilateral feet, History of Any Multi-Drug Resistant Organisms: None Reported Past Surgical History: Cholecystectomy, Orthopedic Surgery Additional Past Surgical History / Comment(s): L oophorectomy d/t cyst, D&C, colonoscopy, L carpal tunnel release, Past Anesthesia/Blood Transfusion Reactions: Motion Sickness, Postoperative Nausea & Vomiting (PONV) Past Psychological History: Anxiety, Bipolar, Depression, Schizophrenia Smoking Status: Vaper Past Alcohol Use History: Occasional Past Drug Use History: Cocaine - Past Family History Mother History Unknown: Yes Family Medical History: Cancer Additional Family Medical History / Comment(s): Mother had breast cancer and metnal illness She is living. Father Family Medical History: Cancer Additional Family Medical History / Comment(s): Father is . He had agent orange exposure. He had liver cancer, bowel to brain cancer. General Exam General appearance: alert, in no apparent distress Head exam: Present: atraumatic, normocephalic Eye exam: Absent: scleral icterus, conjunctival injection, periorbital swelling Respiratory exam: Absent: respiratory distress, accessory muscle use Cardiovascular Exam: Present: regular rate GI/Abdominal exam: Present: soft. Absent: distended, tenderness Back exam: Present: normal inspection, tenderness (Left lumbar), paraspinal tenderness (Left lumbar). Absent: rash noted Expanded Back exam: Absent: saddle anesthesia Back exam: Sciatic Notch Tenderness: Left Neurological exam: Present: alert, oriented X3, normal gait Psychiatric exam: Present: normal affect, normal mood Skin exam: Present: warm, dry, normal color. Absent: cyanosis, diaphoretic, petechiae, pallor Course Vital Signs 07/22/22 15:02 Temperature 98.2 F Pulse Rate 75 Respiratory 16 Rate Blood Pressure 147/79 O2 Sat by Pulse 95 Oximetry Medical Decision Making - Medical Decision Making Patient presents with chronic low back pain, exacerbated 3 days ago when she turned twisting while moving a box at work. No red flag symptoms. No saddle anesthesia, bowel or bladder incontinence. No fevers. Patient able to ambulate. Good range of motion of both lower extremities. She was given a shot of Norflex and a Lidoderm patch. Directed to continue heat and Motrin as previously prescribed and follow-up with primary care doctor for continuation of care. She is agreeable to this plan of care. Disposition Clinical Impression: Musculoskeletal back pain Disposition: HOME SELF-CARE Condition: Good Instructions (If sedation given, give patient instructions): Low Back Strain (ED), Back Pain (ED), Lower Back Exercises (ED) Additional Instructions: Continue Tylenol and Motrin as needed for pain or discomfort. You can also use heat. Lidoderm patches were prescribed for you or you can use [id number] topical pain relievers like BenGay, capsaicin or [place] balm. Please follow-up with your primary care doctor for continuation of care. Return to the emergency room with any new or concerning symptoms. Prescriptions: Lidocaine 5% Patch [Lidoderm] 1 patch TOPICAL DAILY 14 Days #14 patch Is patient prescribed a controlled substance at d/c from ED?: No Referrals: [facility] [Primary Care Provider] - 1-2 days Time of Disposition: 15:55
[2022-07-22] MEDS ORDERED: LIDOCAINE 5% PATCH TOPICAL SCH (16:00)
== END 2022-07-22 16:37 | disposition home or self-care (01) ==
LOC: SUPCPDRO 14:53 → EC 14:53
DX: M79.18 Myalgia, other site (principal); J45.909 Unspecified asthma, uncomplicated; J44.9 Chronic obstructive pulmonary disease, unspecified; K21.9 Gastro-esophageal reflux disease without esophagitis; M19.90 Unspecified osteoarthritis, unspecified site; I11.0 Hypertensive heart disease with heart failure; I50.9 Heart failure, unspecified; Z79.82 Long term (current) use of aspirin; Z79.899 Other long term (current) drug therapy; Z91.041 Radiographic dye allergy status; Z91.018 Allergy to other foods; Z88.0 Allergy status to penicillin; Z91.013 Allergy to seafood; Z88.1 Allergy status to other antibiotic agents; Z88.8 Allergy status to other drugs, medicaments and biological substances
CPT/HCPCS: 99283; 96372; J2360

== ENCOUNTER 2022-07-28 17:18 | Emergency (ER) | payer OTHER ==
[2022-07-28 17:47] VITALS: BP 120/60; PULSE 71; RESP 18
--- NOTE | 2022-07-28 18:19 | XR ---
EXAMINATION TYPE: XR chest 2V DATE OF EXAM: 07/28/2022 6:11 PM COMPARISON: Chest radiographs from 07/01/2022 TECHNIQUE: XR chest 2V Frontal and lateral views of the chest. CLINICAL INDICATION:Female, 42 years old with history of Difficulty breathing ; FINDINGS: Lungs/Pleura: There is no evidence of pleural effusion, focal consolidation, or pneumothorax. Pulmonary vascularity: Unremarkable. Heart/mediastinum: Cardiomediastinal silhouette is unremarkable. Musculoskeletal: No acute osseous pathology. IMPRESSION: No acute cardiopulmonary disease/process.
--- NOTE | 2022-07-28 18:32 | ED ---
General Adult HPI - General Chief complaint: Recheck/Abnormal Lab/Rx Stated complaint: Chest Pain Time Seen by Provider: 07/28/22 17:45 Source: patient, EMS, RN notes reviewed, old records reviewed Mode of arrival: EMS Limitations: no limitations - History of Present Illness Initial comments: This is a 42-year-old female who presents emergency department stating that she has a seizure every day once a day. Patient states today she had a seizure and fell up against something on her right chest wall and that area is nontender so she came in to make sure nothing was wrong. Patient states he does not have any shortness of breath or difficulty breathing. Patient states the right side of her chest as a little tender to push. Patient states when she just sits here and doesn't take deep breaths there is no pain at all. Patient refuses any blood work or IV at this time she just wants an x-ray. Patient denies any other problems. Patient is not worried about having had a seizure today she states she has one every single day. - Related Data Home Medications Medication Instructions Recorded Confirmed Fluticasone Nasal [place] [Flonase 1 spray EA NOSTRIL DAILY 12/16/18 12/29/21 Nasal [place]] Zonisamide [Zonegran] 300 mg PO HS 12/16/18 12/29/21 Montelukast [Singulair] 10 mg PO HS 12/16/19 12/29/21 Omeprazole 20 mg PO DAILY 12/16/19 12/29/21 allopurinoL [Zyloprim] 100 mg PO DAILY 12/16/19 12/29/21 Aspirin EC [Ecotrin Low Dose] 81 mg PO DAILY 04/12/20 12/29/21 Naltrexone HCl [Revia] 50 mg PO DAILY 04/12/20 12/29/21 hydrOXYzine pamoate [Vistaril] 25 mg PO TID 04/12/20 12/29/21 Ibuprofen [Motrin] 400 mg PO BID PRN 09/04/20 12/29/21 calcium polycarbophiL [Fibercon] 1,250 mg PO BID PRN 09/04/20 12/29/21 lamoTRIgine [LaMICtal] 200 mg PO DAILY 09/04/20 12/29/21 polyethylene glycoL 3350 [Miralax] 17 gm PO DAILY PRN 09/04/20 12/29/21 Loratadine [Claritin] 10 mg PO DAILY 12/22/20 12/29/21 Albuterol Sulfate [Proair Hfa] 2 puff INHALATION RT-QID PRN 12/12/21 12/29/21 Aripiprazole Lauroxil [Aristada] 882 mg IM Q28D 12/12/21 12/29/21 Baclofen [Lioresal] 10 mg PO HS PRN 12/12/21 12/29/21 Benztropine Mesylate [Cogentin] 2 mg PO BID 12/12/21 12/29/21 Cholecalciferol [Vitamin D3 (125 125 mcg PO DAILY 12/12/21 12/29/21 Mcg = 5000 Iu)] Docusate 250mg Cap 250 mg PO BID PRN 12/12/21 12/29/21 Fenofibrate [Lofibra] 54 mg PO DAILY 12/12/21 12/29/21 Fluticasone Propionate [Flovent 2 puff INHALATION RT-BID 12/12/21 12/29/21 Hfa 220 mcg] Folic Acid 1 mg PO DAILY 12/12/21 12/29/21 Glucerna Shake 1 can PO DAILY 12/12/21 12/29/21 Lacosamide [Vimpat] 200 mg PO BID 12/12/21 12/29/21 Linaclotide [Linzess] 145 mcg PO DAILY 12/12/21 12/29/21 Nystatin 100,000Unit/gm Cream 1 applic TOPICAL BID PRN 12/12/21 12/29/21 [Mycostatin Cream] metFORMIN HCL [Glucophage] 1,000 mg PO BID 12/12/21 12/29/21 traZODone HCL [Desyrel] 200 mg PO HS PRN 12/12/21 12/29/21 Pepto Tab 2 tab PO Q6H PRN 12/29/21 12/29/21 Previous Rx's Medication Instructions Recorded DULoxetine HCL [Cymbalta] 60 mg PO DAILY 30 Days capsule. 03/08/20 Ondansetron Odt [Zofran Odt] 4 mg PO Q8HR PRN #20 tab 02/08/22 Sulfamethox-Tmp 800-160Mg [Bactrim 1 tab PO Q12HR #14 tab 07/01/22 DS 800-160 mg] busPIRone HCl [Buspar] 5 mg PO BID PRN #12 tab 07/01/22 Lidocaine 5% Patch [Lidoderm] 1 patch TOPICAL DAILY 14 Days #14 07/22/22 patch Acetaminophen Tab [Tylenol Tab] 500 mg PO Q6H #20 tablet 07/28/22 Ibuprofen [Motrin] 600 mg PO Q6HR PRN #20 tab 07/28/22 Allergies Allergy/AdvReac Type Severity Reaction Status Date / Time Iodinated Contrast Media Allergy Anaphylaxis Verified 07/22/22 15:05 [Iodinated Contrast Media - IV Dye] peanut Allergy Anaphylaxis Verified 07/22/22 15:05 Penicillins Allergy Anaphylaxis Verified 07/22/22 15:05 shellfish derived Allergy Anaphylaxis Verified 07/22/22 15:05 cephalexin monohydrate AdvReac Nausea & Verified 07/22/22 15:05 [From Keflex] Vomiting & Diarrhea lacosamide [From Vimpat] AdvReac Anaphylaxis Verified 07/22/22 15:05 trazodone AdvReac bp Verified 07/22/22 15:05 issues/dissiness--patient takes at home Review of Systems ROS Statement: Those systems with pertinent positive or pertinent negative responses have been documented in the HPI. ROS Other: All systems not noted in ROS Statement are negative. Past Medical History Past Medical History: Asthma, Heart Failure, COPD, Fibromyalgia, GERD/Reflux, GI Bleed, Hypertension, Liver Disease, Osteoarthritis (OA), Pneumonia, Seizure Disorder, Skin Disorder Additional Past Medical History / Comment(s): Bronchitis, gestational diabetes, seizures with last one 09/03/20, sickle cell trait, liver cirrhosis, anemia, chrons, IBS, ulcerative colitis, lowr GI bleed, hemorrhoids, constipation, psoriasis, migraines, chronic low back and cervical pain, scoliosis, arhtritis in multiple joints, gout bilateral feet, History of Any Multi-Drug Resistant Organisms: None Reported Past Surgical History: Cholecystectomy, Orthopedic Surgery Additional Past Surgical History / Comment(s): L oophorectomy d/t cyst, D&C, colonoscopy, L carpal tunnel release, Past Anesthesia/Blood Transfusion Reactions: Motion Sickness, Postoperative Nausea & Vomiting (PONV) Past Psychological History: Anxiety, Bipolar, Depression, Schizophrenia Smoking Status: Vaper Past Alcohol Use History: Occasional Past Drug Use History: None Reported - Past Family History Mother History Unknown: Yes Family Medical History: Cancer Additional Family Medical History / Comment(s): Mother had breast cancer and metnal illness She is living. Father Family Medical History: Cancer Additional Family Medical History / Comment(s): Father is . He had agent orange exposure. He had liver cancer, bowel to brain cancer. General Exam - General Exam Comments Initial Comments: GENERAL: Patient is well-developed and well-nourished. Patient is nontoxic and well- hydrated and is in mild distress. ENT: Neck is soft and supple. No significant lymphadenopathy is noted. Oropharynx is clear. Moist mucous membranes. Neck has full range of motion without eliciting any pain. EYES: The sclera were anicteric and conjunctiva were pink and moist. Extraocular movements were intact and pupils were equal round and reactive to light. Eyelids were unremarkable. PULMONARY: Unlabored respirations. Good breath sounds bilaterally. No audible rales rhonchi or wheezing was noted. CARDIOVASCULAR: There is a regular rate and rhythm without any murmurs gallops or rubs. Chest wall is very minimally tender anterior lateral aspect. No swelling no bruising. ABDOMEN: Soft and nontender with normal bowel sounds. SKIN: Skin is clear with no lesions or rashes and otherwise unremarkable. NEUROLOGIC: Patient is alert and oriented x3. Cranial nerves II through XII are grossly intact. Motor and sensory are also intact. Normal speech, volume and content. Symmetrical smile. MUSCULOSKELETAL: Normal extremities with adequate strength and full range of motion. LYMPHATICS: No significant lymphadenopathy is noted PSYCHIATRIC: Normal psychiatric evaluation. Limitations: no limitations Course Vital Signs 07/28/22 17:41 Pulse Rate 71 Respiratory 18 Rate Blood Pressure 120/60 O2 Sat by Pulse 96 Oximetry Medical Decision Making - Medical Decision Making Was pt. sent in by a medical professional or institution? @ -No Did you speak to anyone other than the patient for history? @ -No Did you review nursing and triage notes? @ -I agree with nursing notes and triage note Were old charts reviewed? @ -No Differential Diagnosis? @ -Differential Chest Pain: Stable Angina, Unstable Angina, STEMI, NSTEMI Aortic Dissection, Pneumothorax, Musculoskeletal, Esophageal Spasm GERD, Cholecystitis, Pancreatitis, Zoster, this is not meant to be an all-inclusive list. EKG interpreted by me (3pts min.)? @ -As above X-rays interpreted by me (1pt min.)? @ -I interpreted the chest x-ray showed no acute abnormality. CT interpreted by me (1pt min.)? @ -No U/S interpreted by me (1pt. min.)? @ -No What testing was considered but not performed? (CT, X-rays, U/S, labs)? Why? @ -No What meds were considered but not given? Why? @ -No Did you discuss the management of the patient with other professionals? @ -No Did you reconcile home meds? @ -No Was smoking cessation discussed for >3mins.? @ -No Was critical care preformed (if so, how long)? @ -No Were there social determinants of health that impacted care today? How? (Homelessness, low income, unemployed, alcoholism, drug addiction, transportation, low edu. Level, literacy, decrease access to med. care, correction, rehab)? @ -No Was there de-escalation of care discussed even if they declined? (Discuss DNR or withdrawal of care, Hospice)? @ -No What co-morbidities impacted this encounter? (DM, HTN, Smoking, COPD, CAD, Cancer, CVA, Hep., AIDS, mental health diagnosis, sleep apnea, morbid obesity)? @ -No Was patient admitted / discharged? @ -Patient will be discharged home. Patient did not want any IV she did not want any blood work she just wanted an x-ray because she bumped into something when she had a seizure today. Undiagnosed new problem with uncertain prognosis? @ -No Drug Therapy requiring intensive monitoring for toxicity (Heparin, Nitro, Insulin, Cardizem)? @ -No Were any procedures done? @ -No Diagnosis/symptom? @ -Contusion chest wall Acute, or Chronic, or Acute on Chronic? @ -Acute Uncomplicated (without systemic symptoms) or Complicated (systemic symptoms)? @ -Uncomplicated Side effects of treatment? @ -None Exacerbation, Progression, or Severe Exacerbation] @ -No Poses a threat to life or bodily function? @ -No Disposition Clinical Impression: Chest wall contusion Disposition: HOME SELF-CARE Condition: Good Instructions (If sedation given, give patient instructions): Contusion in Adults (ED) Prescriptions: Ibuprofen [Motrin] 600 mg PO Q6HR PRN #20 tab PRN Reason: For pain Acetaminophen Tab [Tylenol Tab] 500 mg PO Q6H #20 tablet Is patient prescribed a controlled substance at d/c from ED?: No Referrals: [facility] [Primary Care Provider] - 1-2 days Time of Disposition: 18:31
== END 2022-07-28 18:42 | disposition home or self-care (01) ==
LOC: EC 17:18
DX: S20.211A Contusion of right front wall of thorax, initial encounter (principal); J44.9 Chronic obstructive pulmonary disease, unspecified; K21.9 Gastro-esophageal reflux disease without esophagitis; I10 Essential (primary) hypertension; M19.90 Unspecified osteoarthritis, unspecified site; G40.909 Epilepsy, unspecified, not intractable, without status epilepticus; F41.9 Anxiety disorder, unspecified; F31.9 Bipolar disorder, unspecified; F17.290 Nicotine dependence, other tobacco product, uncomplicated; Z91.041 Radiographic dye allergy status; Z88.0 Allergy status to penicillin; Z91.013 Allergy to seafood; Z88.8 Allergy status to other drugs, medicaments and biological substances; Z79.899 Other long term (current) drug therapy; W18.30XA Fall on same level, unspecified, initial encounter
CPT/HCPCS: 71046; 99285

== ENCOUNTER 2022-08-05 15:59 | Inpatient (IN) | payer MEDICAID, OTHER ==
--- NOTE | 2022-08-05 19:05 | ED ---
General Adult HPI - General Chief complaint: Upper Respiratory Infection Stated complaint: drug relapse Time Seen by Provider: 08/05/22 18:54 Source: patient, RN notes reviewed, old records reviewed Mode of arrival: EMS Limitations: no limitations - History of Present Illness Initial comments: Well appearing obese, 42-year-old female presents to the emergency room with complaints of cough and sore throat for 3 days. Denies any nausea vomiting or diarrhea. No abdominal pain. States that she's had chills but no fevers. Admits to using crack cocaine yesterday and has been irritable since. She was having thoughts of suicidal ideation but states thoughts have resolved at this time. She denies any other drug use. Denies alcohol use. -: days(s) (3) Severity scale (1-10): 6 Consistency: constant Associated Symptoms: cough, fever/chills (chills no fever, sore throat) - Related Data Home Medications Medication Instructions Recorded Confirmed Zonisamide [Zonegran] 300 mg PO HS 12/16/18 08/06/22 Montelukast [Singulair] 10 mg PO HS 12/16/19 08/06/22 Omeprazole 20 mg PO DAILY 12/16/19 08/06/22 allopurinoL [Zyloprim] 100 mg PO DAILY 12/16/19 08/06/22 Aspirin EC [Ecotrin Low Dose] 81 mg PO DAILY 04/12/20 08/06/22 Naltrexone HCl [Revia] 50 mg PO DAILY 04/12/20 08/06/22 calcium polycarbophiL [Fibercon] 1,250 mg PO BID PRN 09/04/20 08/06/22 Loratadine [Claritin] 10 mg PO DAILY 12/22/20 08/06/22 Albuterol Sulfate [Proair Hfa] 2 puff INHALATION RT-QID PRN 12/12/21 08/06/22 Cholecalciferol [Vitamin D3 (125 125 mcg PO DAILY 12/12/21 08/06/22 Mcg = 5000 Iu)] Docusate 250mg Cap 250 mg PO BID 12/12/21 08/06/22 Fenofibrate [Lofibra] 54 mg PO DAILY 12/12/21 08/06/22 Folic Acid 1 mg PO DAILY 12/12/21 08/06/22 Glucerna Shake 1 can PO BID 12/12/21 08/06/22 Linaclotide [Linzess] 145 mcg PO DAILY 12/12/21 08/06/22 metFORMIN HCL [Glucophage] 1,000 mg PO BID 12/12/21 08/06/22 Acetaminophen Tab [Tylenol] 500 mg PO QID PRN 08/05/22 08/06/22 Wja-Zksl-Bfppd Acid 1 cap PO DAILY 08/05/22 08/06/22 [-U Capsule (formulary)] guaiFENesin-DM 100-10MG/5ML 10 ml PO Q6H PRN 08/05/22 08/06/22 [Robitussin DM] Previous Rx's Medication Instructions Recorded DULoxetine HCL [Cymbalta] 60 mg PO DAILY 30 Days capsule. 03/08/20 Ibuprofen [Motrin] 600 mg PO Q6HR PRN #20 tab 07/28/22 Aripiprazole Lauroxil [Aristada] 882 mg IM Q28D 28 Days #1 08/10/22 Benztropine Mesylate [Cogentin] 1 mg PO BID PRN 30 Days #30 tab 08/10/22 Budesonide-Formot 160-4.5 Mcg 2 puff INHALATION RT-BID each 08/10/22 [Symbicort 160-4.5 Mcg Inhaler] hydrOXYzine pamoate 50 mg PO TID 30 Days #90 cap 08/10/22 Allergies Allergy/AdvReac Type Severity Reaction Status Date / Time Iodinated Contrast Media Allergy Anaphylaxis Verified 08/06/22 03:01 [Iodinated Contrast Media - IV Dye] peanut Allergy Anaphylaxis Verified 08/06/22 03:01 Penicillins Allergy Anaphylaxis Verified 08/06/22 03:01 shellfish derived Allergy Anaphylaxis Verified 08/06/22 03:01 cephalexin monohydrate AdvReac Nausea & Verified 08/06/22 03:01 [From Keflex] Vomiting & Diarrhea lacosamide [From Vimpat] AdvReac Anaphylaxis Verified 08/06/22 03:01 trazodone AdvReac bp Verified 08/06/22 03:01 issues/dissiness--patient takes at home Review of Systems ROS Statement: Those systems with pertinent positive or pertinent negative responses have been documented in the HPI. ROS Other: All systems not noted in ROS Statement are negative. Past Medical History Past Medical History: Asthma, Heart Failure, COPD, Fibromyalgia, GERD/Reflux, GI Bleed, Hypertension, Liver Disease, Osteoarthritis (OA), Pneumonia, Seizure Disorder, Skin Disorder Additional Past Medical History / Comment(s): Bronchitis, gestational diabetes, seizures with last one 09/03/20, sickle cell trait, liver cirrhosis, anemia, chrons, IBS, ulcerative colitis, lowr GI bleed, hemorrhoids, constipation, psoriasis, migraines, chronic low back and cervical pain, scoliosis, arhtritis in multiple joints, gout bilateral feet, History of Any Multi-Drug Resistant Organisms: None Reported Past Surgical History: Cholecystectomy, Orthopedic Surgery Additional Past Surgical History / Comment(s): L oophorectomy d/t cyst, D&C, colonoscopy, L carpal tunnel release, Past Anesthesia/Blood Transfusion Reactions: Motion Sickness, Postoperative Nausea & Vomiting (PONV) Past Psychological History: Anxiety, Bipolar, Depression, Schizophrenia Smoking Status: Former smoker Past Alcohol Use History: Occasional Past Drug Use History: Cocaine - Past Family History Mother History Unknown: Yes Family Medical History: Cancer Additional Family Medical History / Comment(s): Mother had breast cancer and metnal illness She is living. Father Family Medical History: Cancer Additional Family Medical History / Comment(s): Father is . He had agent orange exposure. He had liver cancer, bowel to brain cancer. General Exam Limitations: no limitations General appearance: alert, in no apparent distress Head exam: Present: atraumatic Eye exam: Absent: scleral icterus, conjunctival injection, periorbital swelling ENT exam: Present: mucous membranes moist Neck exam: Present: full ROM. Absent: tenderness, meningismus Respiratory exam: Present: normal lung sounds bilaterally. Absent: respiratory distress, wheezes, rales, rhonchi, accessory muscle use, decreased breath sounds Cardiovascular Exam: Present: bradycardia GI/Abdominal exam: Present: soft. Absent: distended, tenderness, rigid Extremities exam: Present: normal capillary refill. Absent: pedal edema Neurological exam: Present: alert, oriented X3 Psychiatric exam: Present: normal affect, normal mood, suicidal ideation (Present upon arrival in triage, Denies at this time) Skin exam: Present: warm, dry, normal color. Absent: cyanosis, diaphoretic, petechiae, pallor Course Vital Signs 08/05/22 08/06/22 16:05 03:57 Temperature 98.7 F 97.2 F L Pulse Rate 57 L Pulse Rate [ 79 Left Sitting] Respiratory 18 15 Rate Blood Pressure 130/77 Blood Pressure 113/56 [Left Arm Sitting] O2 Sat by Pulse 95 94 L Oximetry Medical Decision Making - Medical Decision Making Patient presents with cough and sore throat for 3 days and irritability after using crack yesterday. She initially stated to triage staff that she was suicidal however during my exam she denied suicidal or homicidal ideation. Influenza, RSV, coronavirus, and strep swabs are negative. Patient urine drug screen shows positive amphetamines, methamphetamines and cocaine. Patient spoke with EPS nurse Akila and she again admitted to [facility] willing to sign herself in for treatment. Was pt. sent in by a medical professional or institution? @ -No Did you speak to anyone other than the patient for history? @ -No Did you review nursing and triage notes? @ -Yes I agree Were old charts reviewed? @ -No Differential Diagnosis? @ -Differential : Pneumonia, viral URI, sinusitis, peritonsillar Abscess, retropharyngeal Abscess, epiglottitis, this is not meant to be an all-inclusive list. X-rays interpreted by me (1pt min.)? @ yes Chest x-ray interpreted by me shows no evidence of infiltrate. Radiologist interpretation no acute pulmonary infiltrate. What testing was considered but not performed? (CT, X-rays, U/S, labs)? Why? @No What meds were considered but not given? Why? @ -No Did you discuss the management of the patient with other professionals? @ -Psych nurse Did you reconcile home meds? @ -No Was smoking cessation discussed for >3mins.? @ -Yes discussed stopping smoking crack Was critical care preformed (if so, how long)? @ -No Were there social determinants of health that impacted care today? How? (Homelessness, low income, unemployed, alcoholism, drug addiction, hidal[place] sportation, low edu. Level, literacy, decrease access to med. care, care home, rehab)? @ -Drug addiction Was there de-escalation of care discussed even if they declined? (Discuss DNR or withdrawal of care, Hospice)? @ -No What co-morbidities impacted this encounter? (DM, HTN, Smoking, COPD, CAD, Cancer, CVA, Hep., AIDS, mental health diagnosis, sleep apnea, morbid obesity)? @ -COPD, heart failure, GERD, hypertension Was patient admitted / discharged? @ -Admitted psychiatric care Undiagnosed new problem with uncertain prognosis? @ -[none] Drug Therapy requiring intensive monitoring for toxicity (Heparin, Nitro, Insulin, Cardizem)? @ -No Were any procedures done? @ -No Diagnosis/symptom? @ -URI, suicidal ideation Acute, or Chronic, or Acute on Chronic? @ -Acute Uncomplicated (without systemic symptoms) or Complicated (systemic symptoms)? @ -[default] Side effects of treatment? @ -[none] Exacerbation, Progression, or Severe Exacerbation] @ -[no] Poses a threat to life or bodily function? @ -[no] - Lab Data Result diagrams: 08/06/22 09:07 08/06/22 09:07 Lab Results 08/05/22 08/05/22 08/05/22 Range/Units 17:32 20:07 20:52 Urine Color Urine Appearance (Clear) Urine pH (5.0-8.0) Ur Specific [place] (1.001-1.035) Urine Protein (Negative) Urine Glucose (UA) (Negative) Urine Ketones (Negative) Urine Blood (Negative) Urine Nitrite (Negative) Urine Bilirubin (Negative) Urine Urobilinogen (<2.0) mg/dL Ur Leukocyte Esterase (Negative) Urine RBC (0-5) /hpf Urine WBC (0-5) /hpf Ur Squamous Epith Cells (0-4) /hpf Urine Bacteria (None) /hpf Urine Mucus (None) /hpf Urine HCG, Qual (Not Detectd) Urine Opiates Screen Not Detected (NotDetected) Ur Oxycodone Screen Not Detected (NotDetected) Urine Methadone Screen Not Detected (NotDetected) Ur Propoxyphene Screen Not Detected (NotDetected) Ur Barbiturates Screen Not Detected (NotDetected) U Tricyclic Antidepress Not Detected (NotDetected) Ur Phencyclidine Scrn Not Detected (NotDetected) Ur Amphetamines Screen Detected H (NotDetected) U Methamphetamines Scrn Detected H (NotDetected) U Benzodiazepines Scrn Not Detected (NotDetected) Urine Cocaine Screen Detected H (NotDetected) U Marijuana (THC) Screen Not Detected (NotDetected) Influenza Type A (PCR) Not Detected (Not Detectd) Influenza Type B (PCR) Not Detected (Not Detectd) RSV (PCR) Not Detected (Not Detectd) SARS-CoV-2 (PCR) Not Detected (Not Detectd) Group A Strep (PCR) NOT DETECTED (Not Detectd) 08/05/22 08/05/22 Range/Units 20:52 20:52 Urine Color Yellow Urine Appearance Cloudy H (Clear) Urine pH 5.5 (5.0-8.0) Ur Specific [place] 1.021 (1.001-1.035) Urine Protein Negative (Negative) Urine Glucose (UA) Negative (Negative) Urine Ketones Negative (Negative) Urine Blood Negative (Negative) Urine Nitrite Negative (Negative) Urine Bilirubin Negative (Negative) Urine Urobilinogen <2.0 (<2.0) mg/dL Ur Leukocyte Esterase Negative (Negative) Urine RBC 3 (0-5) /hpf Urine WBC 11 H (0-5) /hpf Ur Squamous Epith Cells 10 H (0-4) /hpf Urine Bacteria Many H (None) /hpf Urine Mucus Few H (None) /hpf Urine HCG, Qual Not Detected (Not Detectd) Urine Opiates Screen (NotDetected) Ur Oxycodone Screen (NotDetected) Urine Methadone Screen (NotDetected) Ur Propoxyphene Screen (NotDetected) Ur Barbiturates Screen (NotDetected) U Tricyclic Antidepress (NotDetected) Ur Phencyclidine Scrn (NotDetected) Ur Amphetamines Screen (NotDetected) U Methamphetamines Scrn (NotDetected) U Benzodiazepines Scrn (NotDetected) Urine Cocaine Screen (NotDetected) U Marijuana (THC) Screen (NotDetected) Influenza Type A (PCR) (Not Detectd) Influenza Type B (PCR) (Not Detectd) RSV (PCR) (Not Detectd) SARS-CoV-2 (PCR) (Not Detectd) Group A Strep (PCR) (Not Detectd) Disposition Clinical Impression: Suicidal ideation Disposition: ADMITTED IP TO THIS HOSP Condition: Stable Decision Date: 08/05/22
--- NOTE | 2022-08-05 20:15 | XR ---
EXAMINATION TYPE: XR chest 2V DATE OF EXAM: 08/05/2022 COMPARISON: Chest x-ray July 28, 2022 HISTORY: Cough. TECHNIQUE: Frontal and lateral views of the chest are obtained. FINDINGS: Poor inspiration. There is no suspicious focal air space opacity, pleural effusion, or pneu mothorax seen. The cardiac silhouette size is more prominent and measures upper limits of normal. The osseous structures are intact. IMPRESSION: No acute pulmonary infiltrate.
[2022-08-05] MEDS ORDERED: LORazepam 1 MG TAB PO STA (21:05)
[2022-08-05 21:30] LABS: Cocaine Screen,Urine Detected (NotDetected); Phencyclidine Screen,Urine Not Detected (NotDetected); Urn Cannabinoid Scrn Not Detected (NotDetected)
[2022-08-05 21:31] LABS: Amphetamine Screen,Urine Detected (NotDetected); Barbiturate Screen,Urine Not Detected (NotDetected); Benzodiazepines Screen,Urine Not Detected (NotDetected); Methadone Screen, Urine Not Detected (NotDetected); Opiate Screen,Urine Not Detected (NotDetected); Oxycodone Screen, Urine Not Detected (NotDetected); Tricyclic Antidepressant,Urine Not Detected (NotDetected)
[2022-08-06] MEDS ORDERED: HALOPERIDOL LACTATE 5 MG/ML 1 ML VIAL IM PRN ×2 (00:53→12:35)
[2022-08-06] MEDS ORDERED: LORazepam 1 MG TAB PO PRN (00:53)
[2022-08-06] MEDS ORDERED: MAGNESIUM HYDROXIDE 2,400 MG/10 ML CUP PO PRN (00:53)
[2022-08-06] MEDS ORDERED: ACETAMINOPHEN TAB 325 MG TAB PO PRN (00:53)
[2022-08-06] MEDS ORDERED: MAG HYDROX/AL HYDROX/SIMETH 30 ML CUP PO PRN (00:53)
[2022-08-06] MEDS ORDERED: haloperidoL 5 MG TAB PO PRN ×2 (00:58→12:35)
[2022-08-06] MEDS ORDERED: LORazepam 2 MG/ML INJ IM PRN (00:58)
[2022-08-06 02:13] LABS: Appearance,Urine Cloudy (Clear); Bacteria,Urine Many /hpf; Bilirubin,Urine Negative (Negative); Blood,Urine Negative (Negative); Color,Urine Yellow; Glucose,Urine (UA) Negative (Negative); Ketones,Urine Negative (Negative); Leukocyte Esterase,Urine Negative (Negative); Mucus,Urine Few /hpf; Nitrite,Urine Negative (Negative); PH, Urine 5.5 (5.0-8.0); Protein,Urine Negative (Negative); RBC,Urine 3 /hpf (0-5); Specific Gravity,Urine 1.021 (1.001-1.035); Squamous Epithelial Cell,Urine 10 /hpf (0-4); Urobilinogen,Urine <2.0 mg/dL (<2.0); WBC,Urine 11 /hpf (0-5)
--- NOTE | 2022-08-06 05:16 | P.PN ---
Progress Note - Text Progress Note Date: 08/06/22 Informed by the mental health unit RN that the patient is currently sedated and inappropriate for evaluation at this time.
[2022-08-06] MEDS ORDERED: hydrOXYzine pamoate 25 MG CAP PO SCH (09:00)
[2022-08-06] MEDS ORDERED: NICOTINE 14MG/24HR PATCH TRANSDERM SCH (09:00)
[2022-08-06 09:25] LABS: Basophils % (A) 0 %; Eosinophils # (A) 0.6 k/uL (0-0.7); Eosinophils % (A) 4 %; HCT 40.8 % (34.0-46.0); HGB 13.2 gm/dL (11.4-16.0); Hypochromasia Slight; Lymphocytes # (A) 1.8 k/uL (1.0-4.8); Lymphocytes % (A) 12 %; MCH 27.7 pg (25.0-35.0); MCHC 32.4 g/dL (31.0-37.0); MCV 85.6 fL (80.0-100.0); Mean Platelet Volume 7.2; Monocytes # (A) 0.5 k/uL (0-1.0); Monocytes % (A) 4 %; Neutrophils # (A) 11.6 k/uL (1.3-7.7); Neutrophils % (A) 79 %; Platelet Count 251 k/uL (150-450); RBC 4.77 m/uL (3.80-5.40); RDW 14.5 % (11.5-15.5); WBC 14.6 k/uL (3.8-10.6)
[2022-08-06] MEDS: DULoxetine HCL 60 MG CAPSULE.DR PO SCH (09:31)
[2022-08-06 09:56] LABS: ALT 31 U/L (4-34); AST 28 U/L (14-36); African American GFR (CKD) >90 (>60 ml/min/1.73 sqM); Albumin 3.9 g/dL (3.5-5.0); Alkaline Phosphatase 106 U/L (38-126); Anion Gap 9 mmol/L; Bilirubin, Delta 0.3 mg/dL (0.0-0.2); Blood Urea Nitrogen 11 mg/dL (7-17); Calcium 8.8 mg/dL (8.4-10.2); Carbon Dioxide 26 mmol/L (22-30); Chloride 106 mmol/L (98-107); Glucose 173 mg/dL (74-99); Non-African American GFR(CKD) >90 (>60 ml/min/1.73 sqM); Potassium 4.3 mmol/L (3.5-5.1); Sodium 141 mmol/L (137-145); Total Bilirubin 0.3 mg/dL (0.2-1.3); Total Protein 7.4 g/dL (6.3-8.2)
[2022-08-06] MEDS ORDERED: BENZTROPINE MESYLATE 1 MG TAB PO PRN (12:35)
[2022-08-06] MEDS ORDERED: IBUPROFEN 600 MG TAB PO PRN (12:36)
--- NOTE | 2022-08-06 12:40 | P.HP ---
Psychiatric H&P - . H&P Date: 08/06/22 History & Physical: Allergies Allergy/AdvReac Type Severity Reaction Status Date / Time Iodinated Contrast Media Allergy Anaphylaxis Verified 08/06/22 03:01 [Iodinated Contrast Media - IV Dye] peanut Allergy Anaphylaxis Verified 08/06/22 03:01 Penicillins Allergy Anaphylaxis Verified 08/06/22 03:01 shellfish derived Allergy Anaphylaxis Verified 08/06/22 03:01 cephalexin monohydrate AdvReac Nausea & Verified 08/06/22 03:01 [From Keflex] Vomiting & Diarrhea lacosamide [From Vimpat] AdvReac Anaphylaxis Verified 08/06/22 03:01 trazodone AdvReac bp Verified 08/06/22 03:01 issues/dissiness--patient takes at home Vital Signs Temp 97.2 F L 08/06/22 03:57 Pulse 79 08/06/22 03:57 Resp 15 08/06/22 03:57 BP 113/56 08/06/22 03:57 Pulse Ox 94 L 08/06/22 03:57 FiO2 Intake & Output 08/05/22 08/06/22 08/06/22 18:59 06:59 18:59 Weight 117.934 kg 124.313 kg Laboratory Last Values WBC 14.6 k/uL (3.8-10.6) H 08/06/22 09:07 RBC 4.77 m/uL (3.80-5.40) 08/06/22 09:07 Hgb 13.2 gm/dL (11.4-16.0) 08/06/22 09:07 Hct 40.8 % (34.0-46.0) 08/06/22 09:07 MCV 85.6 fL (80.0-100.0) 08/06/22 09:07 MCH 27.7 pg (25.0-35.0) 08/06/22 09:07 MCHC 32.4 g/dL (31.0-37.0) 08/06/22 09:07 RDW 14.5 % (11.5-15.5) 08/06/22 09:07 Plt Count 251 k/uL (150-450) 08/06/22 09:07 MPV 7.2 08/06/22 09:07 Neutrophils % 79 % 08/06/22 09:07 Lymphocytes % 12 % 08/06/22 09:07 Monocytes % 4 % 08/06/22 09:07 Eosinophils % 4 % 08/06/22 09:07 Basophils % 0 % 08/06/22 09:07 Neutrophils # 11.6 k/uL (1.3-7.7) H 08/06/22 09:07 Lymphocytes # 1.8 k/uL (1.0-4.8) 08/06/22 09:07 Monocytes # 0.5 k/uL (0-1.0) 08/06/22 09:07 Eosinophils # 0.6 k/uL (0-0.7) 08/06/22 09:07 Basophils # 0.0 k/uL (0-0.2) 08/06/22 09:07 Hypochromasia Slight 08/06/22 09:07 Sodium 141 mmol/L (137-145) 08/06/22 09:07 Potassium 4.3 mmol/L (3.5-5.1) 08/06/22 09:07 Chloride 106 mmol/L (98-107) 08/06/22 09:07 Carbon Dioxide 26 mmol/L (22-30) 08/06/22 09:07 Anion Gap 9 mmol/L 08/06/22 09:07 BUN 11 mg/dL (7-17) 08/06/22 09:07 Creatinine 0.78 mg/dL (0.52-1.04) 08/06/22 09:07 Est GFR (CKD-EPI)AfAm >90 (>60 ml/min/1.73 sqM) 08/06/22 09:07 Est GFR (CKD-EPI)NonAf >90 (>60 ml/min/1.73 sqM) 08/06/22 09:07 Glucose 173 mg/dL (74-99) H 08/06/22 09:07 Calcium 8.8 mg/dL (8.4-10.2) 08/06/22 09:07 Total Bilirubin 0.3 mg/dL (0.2-1.3) 08/06/22 09:07 Conjugated Bilirubin 0.0 mg/dL (0.0-0.3) 08/06/22 09:07 Unconjugated Bilirubin 0.0 mg/dL (0.0-1.1) 08/06/22 09:07 Delta Bilirubin 0.3 mg/dL (0.0-0.2) H 08/06/22 09:07 AST 28 U/L (14-36) 08/06/22 09:07 ALT 31 U/L (4-34) 08/06/22 09:07 Alkaline Phosphatase 106 U/L (38-126) 08/06/22 09:07 Total Protein 7.4 g/dL (6.3-8.2) 08/06/22 09:07 Albumin 3.9 g/dL (3.5-5.0) 08/06/22 09:07 TSH 1.190 mIU/L (0.465-4.680) 08/06/22 09:07 Urine Color Yellow 08/05/22 20:52 Urine Appearance Cloudy (Clear) H 08/05/22 20:52 Urine pH 5.5 (5.0-8.0) 08/05/22 20:52 Ur Specific [place] 1.021 (1.001-1.035) 08/05/22 20:52 Urine Protein Negative (Negative) 08/05/22 20:52 Urine Glucose (UA) Negative (Negative) 08/05/22 20:52 Urine Ketones Negative (Negative) 08/05/22 20:52 Urine Blood Negative (Negative) 08/05/22 20:52 Urine Nitrite Negative (Negative) 08/05/22 20:52 Urine Bilirubin Negative (Negative) 08/05/22 20:52 Urine Urobilinogen <2.0 mg/dL (<2.0) 08/05/22 20:52 Ur Leukocyte Esterase Negative (Negative) 08/05/22 20:52 Urine RBC 3 /hpf (0-5) 08/05/22 20:52 Urine WBC 11 /hpf (0-5) H 08/05/22 20:52 Ur Squamous Epith Cells 10 /hpf (0-4) H 08/05/22 20:52 Urine Bacteria Many /hpf (None) H 08/05/22 20:52 Urine Mucus Few /hpf (None) H 08/05/22 20:52 Urine HCG, Qual Not Detected (Not Detectd) 08/05/22 20:52 Urine Opiates Screen Not Detected (NotDetected) 08/05/22 20:52 Ur Oxycodone Screen Not Detected (NotDetected) 08/05/22 20:52 Urine Methadone Screen Not Detected (NotDetected) 08/05/22 20:52 Ur Propoxyphene Screen Not Detected (NotDetected) 08/05/22 20:52 Ur Barbiturates Screen Not Detected (NotDetected) 08/05/22 20:52 U Tricyclic Antidepress Not Detected (NotDetected) 08/05/22 20:52 Ur Phencyclidine Scrn Not Detected (NotDetected) 08/05/22 20:52 Ur Amphetamines Screen Detected (NotDetected) H 08/05/22 20:52 U Methamphetamines Scrn Detected (NotDetected) H 08/05/22 20:52 U Benzodiazepines Scrn Not Detected (NotDetected) 08/05/22 20:52 Urine Cocaine Screen Detected (NotDetected) H 08/05/22 20:52 U Marijuana (THC) Screen Not Detected (NotDetected) 08/05/22 20:52 Influenza Type A (PCR) Not Detected (Not Detectd) 08/05/22 17:32 Influenza Type B (PCR) Not Detected (Not Detectd) 08/05/22 17:32 RSV (PCR) Not Detected (Not Detectd) 08/05/22 17:32 SARS-CoV-2 (PCR) Not Detected (Not Detectd) 08/05/22 17:32 Group A Strep (PCR) NOT DETECTED (Not Detectd) 08/05/22 20:07 08/06/22 12:27 IDENTIFYING DATA: Patient is a 42-year-old female who currently is l iving in an apartment alone, has 2 kids which live in foster care, kicking at [facility]. HPI: The patient presented to the hospital yesterday complaining of suicidal ideations and depression. Patient had admitted to recent drug use as well. Patient currently follows up at [facility] with Dr Rao and was last seen on 06/2022. Patient is currently on Aristada 882 mg IM and supposed to have received the next dose on 08/04. Patient was admitted voluntarily to the mental health unit. Patient claims that she has been selectively taking some medications at home. She claims that she was hearing voices. She claims that "my head was racing". She claims that she was having trouble in her house and states that "a neighbor came in" and states that she did not know she was. She claims that "I tried to get her out". She states that she was unsuccessful at doing this. She states that a neighbor started using "dope in front of me". She claims that she has been using crack cocaine however claims that she does not know anything about methamphetamine use. She states that she was clean for a while and recently relapsed. She states that her sleep has been poor and appetite is been on and off. She appears to be disheveled in appearance. Has poor insight and judgment. Guarded and evasive about her drug use. Her UDS was positive for cocaine, methamphetamine and amphetamines. She denies any cigarette use or marijuana use. At this time she is denying any current suicidal or homicidal ideations. Denying any auditory or visual hallucinations currently. PAST PSYCHIATRIC HISTORY: Patient states that she has a history of schizoaffective disorder. Patient was previously on several different psychiatric medications and was previously on Cymbalta, Lamictal, trazodone, Vistaril and naltrexone. Patient is now currently getting Aristada 882 mg IM from [facility]. She states that she has been hospitalized several times in [place] and also at [facility], most recently was discharged from the mental health unit in March 2020. She claims that she follows up at [facility] with Dr. Zuñiga. She claims that she is had 3 suicide attempts where she tried to overdose. PMH: Seizures , asthma, diabetes and heart murmur ALLERGIES: as per EMR CHEMICAL DEPENDENCY HISTORY: as per HPI FAMILY PSYCHIATRIC/SUBSTANCE USE HISTORY: denies SOCIAL HISTORY: Patient was born and raised in [place] and claims that she completed up to 11th grade. She claims to have 2 kids are currently in foster care. She states that she is and currently living in apartment alone. She states that she works at [employer]. She has been to group home several times in the past however is guarded about this. MENTAL STATUS EXAM: General Appearance: Patient appears to be stated age is overweight, drowsy, directable, and mildly irritable at times. Patient appears to have poor hygiene and grooming. Behavior: Patient is seated without any agitated behavior. Superficial. Guarded. Speech: Patient's speech is fluent and nonpressured. [place]. Monotone. Mood/Affect: Patient reports their mood is "depressed", affect is congruent and irritable. Suicidality/Homicidality: Patient denies having any homicidal ideation intent or plan. Denies any suicidal thoughts, no intent or plan. Perceptions: Patient denies any auditory hallucinations, denies any visual hallucinations. Though content/process: There is no evidence of any delusional thought content and thought process is linear. [place]. Depressive content. Memory and concentration: AOX3, grossly intact for the purposes of this session. Can spell "WORLD" backwards Judgment and insight: poor STRENGTHS/WEAKNESSES: strength is that patient is resilient. Weakness is that patient has poor judgment and is impulsive INTELLECT: Below average IMPRESSIONS: Schizoaffective disorder, depressive type cocaine abuse methamphetamine abuse PLAN: -Patient is admitted under voluntary status to MHU for stabilization of psychiatric symptoms and safety. Patient signed adult voluntary form and medication consent and is placed in patient's chart. -Medications : Will re-start patient on Cymbalta 60 mg daily for mood/anxiety/pain, Vistaril when necessary for anxiety. Patient is currently on Aristada 882 mg IM and due on 08/04, will need to reach out to [facility] to have medication brought in for her as it is not on formulary. cogentin 1 mg bid prn for eps prophylaxis. naltrexone 50 mg daily for cravings. -Haldol and Ativan PRN for agitation/aggression -Patient was informed of the risks, benefits and side effects of the medication and patient verbally consented to taking the medications. Patient signed med consent form and was placed in chart. -Internal Medicine consult to perform medical evaluation and physical. -NRT -not needed as patient does not smoke. -SW on board for discharge planning. Encourage patient to participate in groups to work on coping skills. 08/06/22 12:39
[2022-08-06] MEDS ORDERED: ARIPIPRAZOLE LAUROXIL 882 MG/3.2 ML IM SCH (12:45)
[2022-08-06] MEDS: BENZONATATE 100 MG CAP PO PRN (12:49)
[2022-08-06] MEDS: PRENATAL VIT-IRON-FOLIC ACID 1 EACH TABLET PO SCH (13:45)
[2022-08-06] MEDS: NALTREXONE HCL 50 MG TAB PO SCH (13:45)
[2022-08-06] MEDS: metFORMIN 500 MG TAB PO SCH ×2 (13:45→20:25)
[2022-08-06] MEDS: DOCUSATE 100 MG CAP PO SCH ×2 (13:45→20:25)
[2022-08-06] MEDS: ASPIRIN 81 MG PO SCH (13:46)
[2022-08-06] MEDS: allopurinoL 100 MG TAB PO SCH (13:46)
[2022-08-06] MEDS: FENOFIBRATE 54 MG TAB PO SCH (13:46)
[2022-08-06] MEDS: LORATADINE 10 MG TAB PO SCH (13:46)
[2022-08-06] MEDS: FOLIC ACID 1 MG TAB PO SCH (13:46)
[2022-08-06] MEDS: ZONISAMIDE 100 MG CAP PO SCH (20:24)
[2022-08-06] MEDS: MONTELUKAST 10 MG TAB PO SCH (20:25)
[2022-08-06 21:42] LABS: Chol/HDL Ratio 3.01 Ratio; LDL Cholesterol,Calculated 81.5 mg/dL (0.0-131.0)
--- NOTE | 2022-08-06 23:38 | P.PN ---
Progress Note - Text Progress Note Date: 08/06/22 Attempted to see the patient in the mental health unit at 1999 on 08/06/22. The patient refused to be seen or be evaluated.
[2022-08-07] MEDS ORDERED: ARIPIPRAZOLE LAUROXIL 882 MG IM SCH (09:00)
[2022-08-07] MEDS ORDERED: FLUCONAZOLE 100 MG TAB PO SCH (09:00)
[2022-08-07] MEDS: CHOLECALCIFEROL 125 MCG (5000 IU) TABLET PO SCH (09:52)
[2022-08-07] MEDS: LORATADINE 10 MG TAB PO SCH (09:52)
[2022-08-07] MEDS: FOLIC ACID 1 MG TAB PO SCH (09:52)
[2022-08-07] MEDS: allopurinoL 100 MG TAB PO SCH (09:52)
[2022-08-07] MEDS: NALTREXONE HCL 50 MG TAB PO SCH (09:52)
[2022-08-07] MEDS: PRENATAL VIT-IRON-FOLIC ACID 1 EACH TABLET PO SCH (09:52)
[2022-08-07] MEDS: FENOFIBRATE 54 MG TAB PO SCH (09:52)
[2022-08-07] MEDS: DULoxetine HCL 60 MG CAPSULE.DR PO SCH (09:52)
[2022-08-07] MEDS: ASPIRIN 81 MG PO SCH (09:52)
[2022-08-07] MEDS: PANTOPRAZOLE 40 MG TABLET PO SCH (09:52)
[2022-08-07] MEDS: DOCUSATE 100 MG CAP PO SCH ×2 (09:54→21:54)
[2022-08-07] MEDS: metFORMIN 500 MG TAB PO SCH ×2 (09:54→21:55)
[2022-08-07] MEDS: hydrOXYzine pamoate 25 MG CAP PO PRN (12:28)
[2022-08-07] MEDS ORDERED: Aripiprazole Lauroxil [Aristada] 882 MG IM SCH (17:00)
--- NOTE | 2022-08-07 18:12 | P.PN ---
Progress Note - Text Progress Note Date: 08/07/22 Interval History: Patient was seen resting in her bed, was directable and agreeable to speak with service writer advisor in the office. She appears disheveled, withdrawn, laying in bed with covers on, poor effort on assessment. At this time patient denies any suicidal or homicidal ideation, intent or plan. Patient denies any auditory, visual hallucinations and denies any paranoia or delusions. Patient denies any side effects from the medications and has been compliant with meds. She received her Aristada 882 mg IM injection this evening at 5:15 pm. Mental Status Exam: General Appearance: Patient appears to be stated age, obese, short hair, disheveled. Behavior: Patient is calmly laying in bed without any agitated behavior, withdrawn. Speech: Patient's speech is fluent and non-pressured, soft tone. Mood/Affect: Mood is improving mildly, affect is congruent and constricted. Suicidality/Homicidality: Patient denies having any suicidal or homicidal ideation intent or plan. Perceptions: Patient denies any visual hallucinations and denies any auditory hallucinations. Though content/process: There is no evidence of any delusional thought content and thought process is linear. Memory and concentration: AOX3, grossly intact for the purposes of this session Judgment and insight: Improving mildly Assessment: Schizoaffective disorder, depressive type Cocaine abuse Methamphetamine abuse Plan: -Patient continues to meet criteria for inpatient psychiatric admission for symp grazyna stabilization and safety. -Medications: Aristada 882 mg IM given this evening. Monitor for side effects. Continue Cymbalta 60 mg daily for mood/anxiety/pain. -When necessary Ativan and Haldol for agitation/aggression. -SW on board for discharge planning. Encouraged the patient to participate in milieu.
[2022-08-07] MEDS: ZONISAMIDE 100 MG CAP PO SCH (21:54)
[2022-08-07] MEDS: MONTELUKAST 10 MG TAB PO SCH (21:55)
[2022-08-08] MEDS: metFORMIN 500 MG TAB PO SCH ×2 (08:14→21:28)
[2022-08-08] MEDS: DOCUSATE 100 MG CAP PO SCH ×2 (08:14→21:27)
[2022-08-08] MEDS: LORATADINE 10 MG TAB PO SCH (08:14)
[2022-08-08] MEDS: CHOLECALCIFEROL 125 MCG (5000 IU) TABLET PO SCH (08:14)
[2022-08-08] MEDS: FENOFIBRATE 54 MG TAB PO SCH (08:14)
[2022-08-08] MEDS: allopurinoL 100 MG TAB PO SCH (08:14)
[2022-08-08] MEDS: NALTREXONE HCL 50 MG TAB PO SCH (08:14)
[2022-08-08] MEDS: FOLIC ACID 1 MG TAB PO SCH (08:14)
[2022-08-08] MEDS: PRENATAL VIT-IRON-FOLIC ACID 1 EACH TABLET PO SCH (08:14)
[2022-08-08] MEDS: ASPIRIN 81 MG PO SCH (08:14)
[2022-08-08] MEDS: PANTOPRAZOLE 40 MG TABLET PO SCH (08:15)
[2022-08-08] MEDS: DULoxetine HCL 60 MG CAPSULE.DR PO SCH (08:15)
--- NOTE | 2022-08-08 15:51 | P.PN ---
Progress Note - Text Progress Note Date: 08/08/22 Interval History: Patient was seen isolating to her room and resting in her bed, was directable and agreeable to speak with principal technical writer. She is dressed in hospital gown and is malodorous, is passively engaged in assessment and is not attending unit groups. She reports good mood, good sleep and fair appetite. At this time patient denies any suicidal or homicidal ideation, intent or plan. Patient denies any auditory, visual hallucinations and denies any paranoia or delusions. Patient denies any side effects from the medications and has been compliant with meds. She received her monthly Aristada 882 mg IM injection yesterday without any reported problems. She is future-oriented and hoping to be discharged Wednesday. She was encouraged to shower daily and attend groups. Mental Status Exam: General Appearance: Patient appears to be stated age, obese, short hair, dressed in hospital gown, is malodorous. Behavior: Patient is calmly laying in bed without any agitated behavior, withdrawn, passively engaged. Speech: Patient's speech is fluent and non-pressured, terse. Mood/Affect: Mood is "good", affect is congruent and constricted. Suicidality/Homicidality: Patient denies having any suicidal or homicidal ideation intent or plan. Perceptions: Patient denies any visual hallucinations and denies any auditory hallucinations. Though content/process: There is no evidence of any delusional thought content and thought process is linear. Memory and concentration: AOX3, grossly intact for the purposes of this session Judgment and insight: Improving mildly Assessment: Schizoaffective disorder, depressive type Cocaine abuse Methamphetamine abuse Plan: -Patient continues to meet criteria for inpatient psychiatric admission for symptom stabilization and safety. -Medications: Continue Aristada 882 mg IM Q4 weeks for psychosis/mood stabilization. Most recent dose given 08/07/2022. Continue Cymbalta 60 mg daily for mood/anxiety/pain. Encouraged self-care and hygiene. Encouraged the patient to participate in milieu. -When necessary Ativan and Haldol for agitation/aggression. -SW on board for discharge planning.
[2022-08-08] MEDS: ZONISAMIDE 100 MG CAP PO SCH (21:27)
[2022-08-08] MEDS: MONTELUKAST 10 MG TAB PO SCH (21:28)
[2022-08-09] MEDS: CHOLECALCIFEROL 125 MCG (5000 IU) TABLET PO SCH (09:39)
[2022-08-09] MEDS: allopurinoL 100 MG TAB PO SCH (09:39)
[2022-08-09] MEDS: FENOFIBRATE 54 MG TAB PO SCH (09:39)
[2022-08-09] MEDS: PRENATAL VIT-IRON-FOLIC ACID 1 EACH TABLET PO SCH (09:39)
[2022-08-09] MEDS: NALTREXONE HCL 50 MG TAB PO SCH (09:41)
[2022-08-09] MEDS: DULoxetine HCL 60 MG CAPSULE.DR PO SCH (09:41)
[2022-08-09] MEDS: PANTOPRAZOLE 40 MG TABLET PO SCH (09:41)
[2022-08-09] MEDS: ASPIRIN 81 MG PO SCH (09:41)
[2022-08-09] MEDS: LORATADINE 10 MG TAB PO SCH (09:42)
[2022-08-09] MEDS: DOCUSATE 100 MG CAP PO SCH ×2 (09:42→20:19)
[2022-08-09] MEDS: metFORMIN 500 MG TAB PO SCH ×2 (09:42→20:19)
[2022-08-09] MEDS: FOLIC ACID 1 MG TAB PO SCH (09:42)
[2022-08-09] MEDS: BENZONATATE 100 MG CAP PO PRN (09:44)
[2022-08-09] MEDS: ALBUTEROL INHALER 60 PUFF/8 GM INHALER (MHU) INHALATION PRN ×2 (10:30→17:57)
[2022-08-09 12:18] VITALS: BP 124/74; PULSE 57; RESP 18; TEMP 97.8
--- NOTE | 2022-08-09 19:27 | P.PN ---
Progress Note - Text Progress Note Date: 08/09/22 Interval History: Patient was seen isolating to her room and resting in her bed, was directable and agreeable to speak with policy writer sales. She is dressed in hospital gown and is malodorous (more than yesterday), is passively engaged in assessment and is not attending unit groups. She reports her mood is "not good", states she is having some wheezing, and nursing was notified to give her inhaler. She does not appear to be in distress. At this time patient denies any suicidal or homicidal ideation, intent or plan. Patient denies any auditory, visual hallucinations and denies any paranoia or delusions. Patient denies any side effects from the medications and has been compliant with meds. She was encouraged to shower daily and attend groups. Mental Status Exam: General Appearance: Patient appears to be stated age, obese, short hair, dressed in hospital gown, is malodorous. Behavior: Patient is calmly laying in bed without any agitated behavior, withdrawn, passively engaged. Speech: Patient's speech is fluent and non-pressured. Mood/Affect: Mood is "not good", affect is congruent and constricted. Suicidality/Homicidality: Patient denies having any suicidal or homicidal ideation intent or plan. Perceptions: Patient denies any visual hallucinations and denies any auditory hallucinations. Though content/process: There is no evidence of any delusional thought content and thought process is linear. Memory and concentration: AOX3, grossly intact for the purposes of this session Judgment and insight: Poor, improving mildly Assessment: Schizoaffective disorder, depressive type Cocaine abuse Methamphetamine abuse Plan: -Patient continues to meet criteria for inpatient psychiatric admission for symptom stabilization and safety. -Medications: Continue Aristada 882 mg IM Q4 weeks for psychosis/mood stabilization. Most recent dose given 08/07/2022. Continue Cymbalta 60 mg daily for mood/anxiety/pain. Respiratory was notified for wheezing for breathing treatment per nursing. Encouraged self-care and hygiene. Encouraged the patient to participate in milieu. -When necessary Ativan and Haldol for agitation/aggression. -SW on board for discharge planning.
[2022-08-09] MEDS: ZONISAMIDE 100 MG CAP PO SCH (20:19)
[2022-08-09] MEDS: MONTELUKAST 10 MG TAB PO SCH (20:19)
[2022-08-10] MEDS ORDERED: SYMBICORT 160-4.5 MCG INHALER INHALATION SCH (08:00)
[2022-08-10] MEDS: DULoxetine HCL 60 MG CAPSULE.DR PO SCH (10:31)
[2022-08-10] MEDS: hydrOXYzine pamoate 25 MG CAP PO PRN (10:31)
[2022-08-10] MEDS: allopurinoL 100 MG TAB PO SCH (10:35)
[2022-08-10] MEDS: PANTOPRAZOLE 40 MG TABLET PO SCH (10:35)
[2022-08-10] MEDS: ASPIRIN 81 MG PO SCH (10:36)
[2022-08-10] MEDS: FENOFIBRATE 54 MG TAB PO SCH (10:36)
[2022-08-10] MEDS: NALTREXONE HCL 50 MG TAB PO SCH (10:36)
[2022-08-10] MEDS: PRENATAL VIT-IRON-FOLIC ACID 1 EACH TABLET PO SCH (10:36)
[2022-08-10] MEDS: metFORMIN 500 MG TAB PO SCH (10:36)
[2022-08-10] MEDS: CHOLECALCIFEROL 125 MCG (5000 IU) TABLET PO SCH (10:36)
[2022-08-10] MEDS: FOLIC ACID 1 MG TAB PO SCH (10:36)
[2022-08-10] MEDS: DOCUSATE 100 MG CAP PO SCH (10:36)
[2022-08-10] MEDS: LORATADINE 10 MG TAB PO SCH (10:36)
--- NOTE | 2022-08-10 16:49 | P.DS ---
Providers Date of admission: 08/06/22 00:36 Expected date of discharge: 08/10/22 Attending physician: Ruperto Mercado MD Consults: 08/06/22 02:54 Consult Physician Routine Consulting Provider: Telma Zimmerman Consult Reason/Comments: History and physical, medical management Do you want consulting provider notified?: Yes Primary care physician: [facility] Course: Admission HPI: Admission note was completed by Dr. Tolliver "[IDENTIFYING DATA: Patient is a 42-year-old female who currently is living in an apartment alone, has 2 kids which live in foster care, kicking at [facility]. HPI: The patient presented to the hospital yesterday complaining of suicidal ideations and depression. Patient had admitted to recent drug use as well. Patient currently follows up at [facility] with Dr Rao and was last seen on 06/2022. Patient is currently on Aristada 882 mg IM and supposed to have received the next dose on 08/04. Patient was admitted voluntarily to the mental health unit. Patient claims that she has been selectively taking some medications at home. She claims that she was hearing voices. She claims that "my head was racing". She claims that she was having trouble in her house and states that "a neighbor came in" and states that she did not know she was. She claims that "I tried to get her out". She states that she was unsuccessful at doing this. She states that a neighbor started using "dope in front of me". She claims that she has been using crack cocaine however claims that she does not know anything about methamphetamine use. She states that she was clean for a while and recently relapsed. She states that her sleep has been poor and appetite is been on and off. She appears to be disheveled in appearance. Has poor insight and judgment. Guarded and evasive about her drug use. Her UDS was positive for cocaine, methamphetamine and amphetamines. She denies any cigarette use or m arijuana use. At this time she is denying any current suicidal or homicidal ideations. Denying any auditory or visual hallucinations currently. PAST PSYCHIATRIC HISTORY: Patient states that she has a history of schizoaffective disorder. Patient was previously on several different psychiatric medications and was previously on Cymbalta, Lamictal, trazodone, Vistaril and naltrexone. Patient is now currently getting Aristada 882 mg IM from [facility]. She states that she has been hospitalized several times in [place] and also at [facility], most recently was discharged from the mental health unit in March 2020. She claims that she follows up at [facility] with Dr. Zuñiga. She claims that she is had 3 suicide attempts where she tried to overdose. PMH: Seizures , asthma, diabetes and heart murmur ALLERGIES: as per EMR CHEMICAL DEPENDENCY HISTORY: as per HPI FAMILY PSYCHIATRIC/SUBSTANCE USE HISTORY: denies SOCIAL HISTORY: Patient was born and raised in [place] and claims that she completed up to 11th grade. She claims to have 2 kids are currently in foster care. She states that she is and currently living in apartment alone. She states that she works at [employer]. She has been [facility] in the past however is guarded about this. MENTAL STATUS EXAM: General Appearance: Patient appears to be stated age is overweight, drowsy, directable, and mildly irritable at times. Patient appears to have poor hygiene and grooming. Behavior: Patient is seated without any agitated behavior. Superficial. Guarded. Speech: Patient's speech is fluent and nonpressured. Ullin. Monotone. Mood/Affect: Patient reports their mood is "depressed", affect is congruent and irritable. Suicidality/Homicidality: Patient denies having any homicidal ideation intent or plan. Denies any suicidal thoughts, no intent or plan. Perceptions: Patient denies any auditory hallucinations, denies any visual hallucinations. Though content/process: There is no evidence of any delusional thought content and thought process is linear. Ullin. Depressive content. Memory and concentration: AOX3, grossly intact for the purposes of this session. Can spell "WORLD" backwards Judgment and insight: poor STRENGTHS/WEAKNESSES: strength is that patient is resilient. Weakness is that patient has poor judgment and is impulsive INTELLECT: Below average IMPRESSIONS: Schizoaffective disorder, depressive type cocaine abuse methamphetamine abuse PLAN: -Patient is admitted under voluntary status to MHU for stabilization of psychiatric symptoms and safety. Patient signed adult voluntary form and medication consent and is placed in patient's chart. -Medications : Will re-start patient on Cymbalta 60 mg daily for mood/anxiety/pain, Vistaril when necessary for anxiety. Patient is currently on Aristada 882 mg IM and due on 08/04, will need to reach out to [facility] to have medication brought in for her as it is not on formulary. cogentin 1 mg bid prn for eps prophylaxis. naltrexone 50 mg daily for cravings. -Haldol and Ativan PRN for agitation/aggression -Patient was informed of the risks, benefits and side effects of the medication and patient verbally consented to taking the medications. Patient signed med consent form and was placed in chart. -Internal Medicine consult to perform medical evaluation and physical. -NRT -not needed as patient does not smoke. -SW on board for discharge planning. Encourage patient to participate in groups to work on coping skills.]" Hospital course: Upon admission to the unit patient was admitted voluntarily. She was disheveled, withdrawn and malodrous, and displayed poor effort in attending groups or self- care. Patient did not have episodes of agitation. Patient was given her Aristada 882 mg IM on 08/07/2022 and tolerated the injection without any reported side effects. She was compliant with the rest of her medications as well and denied any side effects throughout hospital course. Patient did not attend most groups and refused medical assessment by the medical doctor on 08/06/2022. Throughout the course of the hospitalization patient gradually improved with regards to her mood, and returned back to their baseline level of functioning. She was evaluated by [facility] on 08/10/2022 and her discharge plans were coordinated. On the day of discharge patient denied any suicidal or homicidal ideation, intent or plan denied any auditory or visual hallucinations, and expressed desire to discharge and return home. Patient was future-oriented and endorsed wanting to live. The patient denied any access to guns or weapons. Patient denied any paranoia and did not endorse any delusions. Patient has a significant history of substance abuse and was counseled on abstaining from all substances including alcohol and marijuana. Patient elected to do outpatient substance use treatment program through [facility]. Patient was also counseled on the medications and need for regular compliance and was encouraged to follow-up with their outpatient appointment for mental health and also for primary care. Prior to discharge a family meeting will be arranged by social worker palliative care to answer any questions and ensure safety upon discharge. Mental status exam: General Appearance: Patient appears to be stated age, obese, short hair, dressed in clean casual attire, is showered. Behavior: Patient is calm without any agitated behavior. Speech: Patient's speech is fluent and non-pressured. Mood/Affect: Mood is "much better", affect is congruent and constricted. Suicidality/Homicidality: Patient denies having any suicidal or homicidal ideation intent or plan. Perceptions: Patient denies any visual hallucinations and denies any auditory hallucinations. Though content/process: There is no evidence of any delusional thought content and thought process is linear. Memory and concentration: AOX3, grossly intact for the purposes of this session Judgment and insight: chronically poor, however has improved with guarded prognosis Impression: Schizoaffective disorder, depressive type Cocaine abuse Methamphetamine abuse Plan: -Continue with discharge today as patient has improved and stabilized psychiatrically and is not currently an imminent threat to herself and/or others. Patient will remain at chronically elevated risk for harm to self and/or others due to his impulsivity and polysubstance abuse. -Continue medications: Continue Aristada 882 mg IM Q4 weeks for psychosis/mood stabilization. Most recent dose given 08/07/2022. Next dose due 09/04/22 Continue Cymbalta 60 mg daily for mood/anxiety/pain. -Patient was counseled on the need for medication compliance and appropriate follow-up at mental health and also primary care for medical issues. Patient verbalized understanding and agreed. -Social work to arrange for and conduct family meeting to ensure safety upon discharge and answer any questions/concerns. Social work also to arrange for patients follow up appointments with [facility] for psychiatric care along with follow up with primary care provider. -Patient counseled on abstaining from recreational drugs and marijuana and alcohol. Was informed/educated on the adverse effects on their physical and mental health. Patient verbally agreed and understood. -Patient was instructed to return to the hospital or seek immediate medical care if their psychiatric or medical symptoms do worsen or reoccur. Vital Signs (72 hours) 08/09/22 09:35 Temperature 97.8 F Pulse Rate [ 57 L Left Sitting] Respiratory 18 Rate Blood Pressure 124/74 [Left Arm Sitting] O2 Sat by Pulse 96 Oximetry Laboratory Results WBC 14.6 k/uL (3.8-10.6) H 08/06/22 09:07 RBC 4.77 m/uL (3.80-5.40) 08/06/22 09:07 Hgb 13.2 gm/dL (11.4-16.0) 08/06/22 09:07 Hct 40.8 % (34.0-46.0) 08/06/22 09:07 MCV 85.6 fL (80.0-100.0) 08/06/22 09:07 MCH 27.7 pg (25.0-35.0) 08/06/22 09:07 MCHC 32.4 g/dL (31.0-37.0) 08/06/22 09:07 RDW 14.5 % (11.5-15.5) 08/06/22 09:07 Plt Count 251 k/uL (150-450) 08/06/22 09:07 MPV 7.2 08/06/22 09:07 Neutrophils % 79 % 08/06/22 09:07 Lymphocytes % 12 % 08/06/22 09:07 Monocytes % 4 % 08/06/22 09:07 Eosinophils % 4 % 08/06/22 09:07 Basophils % 0 % 08/06/22 09:07 Neutrophils # 11.6 k/uL (1.3-7.7) H 08/06/22 09:07 Lymphocytes # 1.8 k/uL (1.0-4.8) 08/06/22 09:07 Monocytes # 0.5 k/uL (0-1.0) 08/06/22 09:07 Eosinophils # 0.6 k/uL (0-0.7) 08/06/22 09:07 Basophils # 0.0 k/uL (0-0.2) 08/06/22 09:07 Hypochromasia Slight 08/06/22 09:07 Sodium 141 mmol/L (137-145) 08/06/22 09:07 Potassium 4.3 mmol/L (3.5-5.1) 08/06/22 09:07 Chloride 106 mmol/L (98-107) 08/06/22 09:07 Carbon Dioxide 26 mmol/L (22-30) 08/06/22 09:07 Anion Gap 9 mmol/L 08/06/22 09:07 BUN 11 mg/dL (7-17) 08/06/22 09:07 Creatinine 0.78 mg/dL (0.52-1.04) 08/06/22 09:07 Est GFR (CKD-EPI)AfAm >90 (>60 ml/min/1.73 sqM) 08/06/22 09:07 Est GFR (CKD-EPI)NonAf >90 (>60 ml/min/1.73 sqM) 08/06/22 09:07 Glucose 173 mg/dL (74-99) H 08/06/22 09:[address] Glu mg/dL 140 08/06/22 09:07 Hemoglobin A1c 6.5 % (0.0-6.0) H 08/06/22 09:07 Calcium 8.8 mg/dL (8.4-10.2) 08/06/22 09:07 Total Bilirubin 0.3 mg/dL (0.2-1.3) 08/06/22 09:07 Conjugated Bilirubin 0.0 mg/dL (0.0-0.3) 08/06/22 09:07 Unconjugated Bilirubin 0.0 mg/dL (0.0-1.1) 08/06/22 09:07 Delta Bilirubin 0.3 mg/dL (0.0-0.2) H 08/06/22 09:07 AST 28 U/L (14-36) 08/06/22 09:07 ALT 31 U/L (4-34) 08/06/22 09:07 Alkaline Phosphatase 106 U/L (38-126) 08/06/22 09:07 Total Protein 7.4 g/dL (6.3-8.2) 08/06/22 09:07 Albumin 3.9 g/dL (3.5-5.0) 08/06/22 09:07 Triglycerides 107.00 mg/dL (0.00-149.00) 08/06/22 09:07 Cholesterol 154.00 mg/dL (0.00-200.00) 08/06/22 09:07 LDL Cholesterol, Calc 81.5 mg/dL (0.0-131.0) 08/06/22 09:07 VLDL Cholesterol, Calc 21.40 mg/dL (5.00-40.00) 08/06/22 09:07 HDL Cholesterol 51.10 mg/dL (40.00-60.00) 08/06/22 09:07 Cholesterol/HDL Ratio 3.01 Ratio 08/06/22 09:07 TSH 1.190 mIU/L (0.465-4.680) 08/06/22 09:07 Urine Color Yellow 08/05/22 20:52 Urine Appearance Cloudy (Clear) H 08/05/22 20:52 Urine pH 5.5 (5.0-8.0) 08/05/22 20:52 Ur Specific [place] 1.021 (1.001-1.035) 08/05/22 20:52 Urine Protein Negative (Negative) 08/05/22 20:52 Urine Glucose (UA) Negative (Negative) 08/05/22 20:52 Urine Ketones Negative (Negative) 08/05/22 20:52 Urine Blood Negative (Negative) 08/05/22 20:52 Urine Nitrite Negative (Negative) 08/05/22 20:52 Urine Bilirubin Negative (Negative) 08/05/22 20:52 Urine Urobilinogen <2.0 mg/dL (<2.0) 08/05/22 20:52 Ur Leukocyte Esterase Negative (Negative) 08/05/22 20:52 Urine RBC 3 /hpf (0-5) 08/05/22 20:52 Urine WBC 11 /hpf (0-5) H 08/05/22 20:52 Ur Squamous Epith Cells 10 /hpf (0-4) H 08/05/22 20:52 Urine Bacteria Many /hpf (None) H 08/05/22 20:52 Urine Mucus Few /hpf (None) H 08/05/22 20:52 Urine HCG, Qual Not Detected (Not Detectd) 08/05/22 20:52 Urine Opiates Screen Not Detected (NotDetected) 08/05/22 20:52 Ur Oxycodone Screen Not Detected (NotDetected) 08/05/22 20:52 Urine Methadone Screen Not Detected (NotDetected) 08/05/22 20:52 Ur Propoxyphene Screen Not Detected (NotDetected) 08/05/22 20:52 Ur Barbiturates Screen Not Detected (NotDetected) 08/05/22 20:52 U Tricyclic Antidepress Not Detected (NotDetected) 08/05/22 20:52 Ur Phencyclidine Scrn Not Detected (NotDetected) 08/05/22 20:52 Ur Amphetamines Screen Detected (NotDetected) H 08/05/22 20:52 U Methamphetamines Scrn Detected (NotDetected) H 08/05/22 20:52 U Benzodiazepines Scrn Not Detected (NotDetected) 08/05/22 20:52 Urine Cocaine Screen Detected (NotDetected) H 08/05/22 20:52 U Marijuana (THC) Screen Not Detected (NotDetected) 08/05/22 20:52 Influenza Type A (PCR) Not Detected (Not Detectd) 08/05/22 17:32 Influenza Type B (PCR) Not Detected (Not Detectd) 08/05/22 17:32 RSV (PCR) Not Detected (Not Detectd) 08/05/22 17:32 SARS-CoV-2 (PCR) Not Detected (Not Detectd) 08/05/22 17:32 Group A Strep (PCR) NOT DETECTED (Not Detectd) 08/05/22 20:07 Patient Condition at Discharge: Stable Plan - Discharge Summary New Discharge Prescriptions: New Aripiprazole Lauroxil [Aristada] 882 mg IM Q28D 28 Days #1 Benztropine Mesylate [Cogentin] 1 mg PO BID PRN 30 Days #30 tab PRN Reason: eps Budesonide-Formot 160-4.5 Mcg [Symbicort 160-4.5 Mcg Inhaler] 2 puff INHALATION RT-BID each Continue Zonisamide [Zonegran] 300 mg PO HS allopurinoL [Zyloprim] 100 mg PO DAILY Montelukast [Singulair] 10 mg PO HS Omeprazole 20 mg PO DAILY DULoxetine HCL [Cymbalta] 60 mg PO DAILY 30 Days stacy. Aspirin EC [Ecotrin Low Dose] 81 mg PO DAILY Naltrexone HCl [Revia] 50 mg PO DAILY calcium polycarbophiL [Fibercon] 1,250 mg PO BID PRN PRN Reason: Constipation Loratadine [Claritin] 10 mg PO DAILY Docusate 250mg Cap 250 mg PO BID Cholecalciferol [Vitamin D3 (125 Mcg = 5000 Iu)] 125 mcg PO DAILY Glucerna Shake 1 can PO BID Folic Acid 1 mg PO DAILY guaiFENesin-DM 100-10MG/5ML [Robitussin DM] 10 ml PO Q6H PRN PRN Reason: cough/congestion Fenofibrate [Lofibra] 54 mg PO DAILY Albuterol Sulfate [Proair Hfa] 2 puff INHALATION RT-QID PRN PRN Reason: Shortness Of Breath metFORMIN HCL [Glucophage] 1,000 mg PO BID Linaclotide [Linzess] 145 mcg PO DAILY Ibuprofen [Motrin] 600 mg PO Q6HR PRN #20 tab PRN Reason: For pain Awk-Qtdo-Cokvn Acid [-U Capsule (formulary)] 1 cap PO DAILY Acetaminophen Tab [Tylenol] 500 mg PO QID PRN PRN Reason: Pain Or Fever > 100.5 hydrOXYzine pamoate 50 mg PO TID 30 Days #90 cap Discontinued polyethylene glycoL 3350 [Miralax] 17 gm PO DAILY PRN PRN Reason: Constipation Benztropine Mesylate [Cogentin] 2 mg PO BID Aripiprazole Lauroxil [Aristada] 882 mg IM Q28D Atomoxetine HCl [Strattera] 60 mg PO DAILY Discharge Medication List Zonisamide [Zonegran] 300 mg PO HS 12/16/18 [History] Montelukast [Singulair] 10 mg PO HS 12/16/19 [History] Omeprazole 20 mg PO DAILY 12/16/19 [History] allopurinoL [Zyloprim] 100 mg PO DAILY 12/16/19 [History] DULoxetine HCL [Cymbalta] 60 mg PO DAILY 30 Days capsule. 03/08/20 [Rx] Aspirin EC [Ecotrin Low Dose] 81 mg PO DAILY 04/12/20 [History] Naltrexone HCl [Revia] 50 mg PO DAILY 04/12/20 [History] calcium polycarbophiL [Fibercon] 1,250 mg PO BID PRN 09/04/20 [History] Loratadine [Claritin] 10 mg PO DAILY 12/22/20 [History] Albuterol Sulfate [Proair Hfa] 2 puff INHALATION RT-QID PRN 12/12/21 [History] Cholecalciferol [Vitamin D3 (125 Mcg = 5000 Iu)] 125 mcg PO DAILY 12/12/21 [History] Docusate 250mg Cap 250 mg PO BID 12/12/21 [History] Fenofibrate [Lofibra] 54 mg PO DAILY 12/12/21 [History] Folic Acid 1 mg PO DAILY 12/12/21 [History] Glucerna Shake 1 can PO BID 12/12/21 [History] Linaclotide [Linzess] 145 mcg PO DAILY 12/12/21 [History] metFORMIN HCL [Glucophage] 1,000 mg PO BID 12/12/21 [History] Ibuprofen [Motrin] 600 mg PO Q6HR PRN #20 tab 07/28/22 [Rx] Acetaminophen Tab [Tylenol] 500 mg PO QID PRN 08/05/22 [History] Unb-Wdhe-Axkag Acid [-U Capsule (formulary)] 1 cap PO DAILY 08/05/22 [History] guaiFENesin-DM 100-10MG/5ML [Robitussin DM] 10 ml PO Q6H PRN 08/05/22 [History] Aripiprazole Lauroxil [Aristada] 882 mg IM Q28D 28 Days #1 08/10/22 [Rx] Benztropine Mesylate [Cogentin] 1 mg PO BID PRN 30 Days #30 tab 08/10/22 [Rx] Budesonide-Formot 160-4.5 Mcg [Symbicort 160-4.5 Mcg Inhaler] 2 puff INHALATION RT-BID each 08/10/22 [Rx] hydrOXYzine pamoate 50 mg PO TID 30 Days #90 cap 08/10/22 [Rx] Follow up Appointment(s)/Referral(s): [facility] [Primary Care Provider] - 1-2 days [facility] [NON-STAFF] - 08/13/22 2:30 pm (08/13 at 2:30 Appt with Valentín Adams 08/26 at 8am Appt with Dr Rao) Patient Instructions/Handouts: Schizoaffective Disorder (DC) Activity/Diet/Wound Care/Special Instructions: Avoid the use of street drugs and alcohol. Take all prescriptions as prescribed. When you are in need of refills on your medications, please contact your medical provider and/or outpatient psychiatrist to have this done. Please go to scheduled outpatient appointment for aftercare treatment. If symptoms return or become worse, call the crisis line at and/or go to the nearest emergency room for evaluation Discharge Disposition: HOME SELF-CARE
== END 2022-08-10 14:20 | disposition home or self-care (01) | DRG 885 ==
LOC: EC 15:59 → 3MHU 08-06 00:36
PROVIDERS: ADMIT Psychiatry & Neurology Psychiatry; ATTEND Psychiatry & Neurology Psychiatry
DX: F25.1 Schizoaffective disorder, depressive type (principal); Z68.42 Body mass index [BMI] 45.0-49.9, adult; K50.90 Crohn's disease, unspecified, without complications; Z71.51 Drug abuse counseling and surveillance of drug abuser; Z65.3 Problems related to other legal circumstances; Z86.32 Personal history of gestational diabetes; M10.9 Gout, unspecified; L40.9 Psoriasis, unspecified; K74.60 Unspecified cirrhosis of liver; E66.9 Obesity, unspecified; E11.9 Type 2 diabetes mellitus without complications; F14.10 Cocaine abuse, uncomplicated; F15.10 Other stimulant abuse, uncomplicated; G40.909 Epilepsy, unspecified, not intractable, without status epilepticus; Z87.01 Personal history of pneumonia (recurrent); I50.9 Heart failure, unspecified; I11.0 Hypertensive heart disease with heart failure; J06.9 Acute upper respiratory infection, unspecified; M41.9 Scoliosis, unspecified; Z20.822 Contact with and (suspected) exposure to COVID-19; G89.29 Other chronic pain; M54.2 Cervicalgia; M15.9 Polyosteoarthritis, unspecified; G43.909 Migraine, unspecified, not intractable, without status migrainosus; Z53.29 Procedure and treatment not carried out because of patient's decision for other reasons; Z91.041 Radiographic dye allergy status; Z91.010 Allergy to peanuts; Z88.0 Allergy status to penicillin; Z91.013 Allergy to seafood; Z60.2 Problems related to living alone; Z63.5 Disruption of family by separation and divorce
CPT/HCPCS: 71046; 80053; 80061; 80306; 81001; 81025; 82075; 82248; 83036; 84443; 85025; 87636; 87651; 94667; 99285

== ENCOUNTER 2022-08-25 21:02 | Inpatient (IN) | payer MEDICAID, OTHER ==
--- NOTE | 2022-08-25 22:05 | ED ---
Psych HPI - General Chief Complaint: Psychiatric Symptoms Stated Complaint: Mental health Time Seen by Provider: 08/25/22 21:03 Source: patient, police, EMS Mode of arrival: EMS Limitations: no limitations - History of Present Illness Initial Comments: 42-year-old female presents emergency Department via EMS with police for psychiatric evaluation. Patient states that no he wants around she states that some of the police are. Patient states that she abuses drugs states that she took 6 Vistaril. Patient states she hasn't injured herself denies any other drug use denies any physical complaints. Patient states she's not taking her psychiatric medications as directed. Patient denies homicidal ideation. - Related Data Home Medications Medication Instructions Recorded Confirmed Zonisamide [Zonegran] 300 mg PO HS 12/16/18 08/06/22 Montelukast [Singulair] 10 mg PO HS 12/16/19 08/06/22 Omeprazole 20 mg PO DAILY 12/16/19 08/06/22 allopurinoL [Zyloprim] 100 mg PO DAILY 12/16/19 08/06/22 Aspirin EC [Ecotrin Low Dose] 81 mg PO DAILY 04/12/20 08/06/22 Naltrexone HCl [Revia] 50 mg PO DAILY 04/12/20 08/06/22 calcium polycarbophiL [Fibercon] 1,250 mg PO BID PRN 09/04/20 08/06/22 Loratadine [Claritin] 10 mg PO DAILY 12/22/20 08/06/22 Albuterol Sulfate [Proair Hfa] 2 puff INHALATION RT-QID PRN 12/12/21 08/06/22 Cholecalciferol [Vitamin D3 (125 125 mcg PO DAILY 12/12/21 08/06/22 Mcg = 5000 Iu)] Docusate 250mg Cap 250 mg PO BID 12/12/21 08/06/22 Fenofibrate [Lofibra] 54 mg PO DAILY 12/12/21 08/06/22 Folic Acid 1 mg PO DAILY 12/12/21 08/06/22 Glucerna Shake 1 can PO BID 12/12/21 08/06/22 Linaclotide [Linzess] 145 mcg PO DAILY 12/12/21 08/06/22 metFORMIN HCL [Glucophage] 1,000 mg PO BID 12/12/21 08/06/22 Acetaminophen Tab [Tylenol] 500 mg PO QID PRN 08/05/22 08/06/22 [id number] Acid 1 cap PO DAILY 08/05/22 08/06/22 [-U Capsule (formulary)] guaiFENesin-DM 100-10MG/5ML 10 ml PO Q6H PRN 08/05/22 08/06/22 [Robitussin DM] Previous Rx's Medication Instructions Recorded DULoxetine HCL [Cymbalta] 60 mg PO DAILY 30 Days capsule. 03/08/20 Ibuprofen [Motrin] 600 mg PO Q6HR PRN #20 tab 07/28/22 Aripiprazole Lauroxil [Aristada] 882 mg IM Q28D 28 Days #1 08/10/22 Benztropine Mesylate [Cogentin] 1 mg PO BID PRN 30 Days #30 tab 08/10/22 Budesonide-Formot 160-4.5 Mcg 2 puff INHALATION RT-BID each 08/10/22 [Symbicort 160-4.5 Mcg Inhaler] hydrOXYzine pamoate 50 mg PO TID 30 Days #90 cap 08/10/22 Allergies Allergy/AdvReac Type Severity Reaction Status Date / Time Iodinated Contrast Media Allergy Anaphylaxis Verified 08/06/22 03:01 [Iodinated Contrast Media - IV Dye] peanut Allergy Anaphylaxis Verified 08/06/22 03:01 Penicillins Allergy Anaphylaxis Verified 08/06/22 03:01 shellfish derived Allergy Anaphylaxis Verified 08/06/22 03:01 cephalexin monohydrate AdvReac Nausea & Verified 08/06/22 03:01 [From Keflex] Vomiting & Diarrhea lacosamide [From Vimpat] AdvReac Anaphylaxis Verified 08/06/22 03:01 trazodone AdvReac bp Verified 08/06/22 03:01 issues/dissiness--patient takes at home Review of Systems ROS Statement: Those systems with pertinent positive or pertinent negative responses have been documented in the HPI. ROS Other: All systems not noted in ROS Statement are negative. Past Medical History Past Medical History: Asthma, Heart Failure, COPD, Fibromyalgia, GERD/Reflux, GI Bleed, Hypertension, Liver Disease, Osteoarthritis (OA), Pneumonia, Seizure Disorder, Skin Disorder Additional Past Medical History / Comment(s): Bronchitis, gestational diabetes, seizures with last one 09/03/20, sickle cell trait, liver cirrhosis, anemia, chrons, IBS, ulcerative colitis, lowr GI bleed, hemorrhoids, constipation, psoriasis, migraines, chronic low back and cervical pain, scoliosis, arhtritis in multiple joints, gout bilateral feet, History of Any Multi-Drug Resistant Organisms: None Reported Past Surgical History: Cholecystectomy, Orthopedic Surgery Additional Past Surgical History / Comment(s): L oophorectomy d/t cyst, D&C, colonoscopy, L carpal tunnel release, Past Anesthesia/Blood Transfusion Reactions: Motion Sickness, Postoperative Nausea & Vomiting (PONV) Past Psychological History: Anxiety, Bipolar, Depression, Schizophrenia Smoking Status: Former smoker Past Alcohol Use History: Occasional Past Drug Use History: Cocaine - Past Family History Mother History Unknown: Yes Family Medical History: Cancer Additional Family Medical History / Comment(s): Mother had breast cancer and metnal illness She is living. Father Family Medical History: Cancer Additional Family Medical History / Comment(s): Father is . He had agent orange exposure. He had liver cancer, bowel to brain cancer. General Exam Limitations: no limitations General appearance: alert, in no apparent distress Head exam: Present: atraumatic, normocephalic, normal inspection Eye exam: Present: normal appearance, PERRL, EOMI. Absent: scleral icterus, conjunctival injection, periorbital swelling ENT exam: Present: normal exam, normal oropharynx, mucous membranes moist Neck exam: Present: normal inspection, full ROM. Absent: tenderness, meningismus, lymphadenopathy Respiratory exam: Present: normal lung sounds bilaterally. Absent: respiratory distress, wheezes, rales, rhonchi, stridor Cardiovascular Exam: Present: regular rate, normal rhythm, normal heart sounds. Absent: systolic murmur, diastolic murmur, rubs, gallop, clicks Back exam: Absent: CVA tenderness (R), CVA tenderness (L) Neurological exam: Present: alert Skin exam: Present: warm, dry, intact, normal color. Absent: rash Course Vital Signs 08/25/22 21:12 Temperature 98.1 F Pulse Rate 72 Respiratory 12 Rate Blood Pressure 115/77 O2 Sat by Pulse 97 Oximetry Medical Decision Making - Medical Decision Making Was pt. sent in by a medical professional or institution (, PA, RACKET STRINGER, urgent care, hospital, or care home...) When possible be specific @ -No Did you speak to anyone other than the patient for history (EMS, parent, family, police, friend...)? What history was obtained from this source @ -No Did you review nursing and triage notes (agree or disagree)? Why? @ -I reviewed and agree with nursing and triage notes Were old charts reviewed (outside hosp., previous admission, EMS record, old EKG, old radiological studies, urgent care reports/EKG's, care home records)? Report findings @ -No old charts were reviewed Differential Diagnosis (chest pain, altered mental status, abdominal pain women, abdominal pain men, vaginal bleeding, weakness, fever, dyspnea, syncope, headache, dizziness, GI bleed, back pain, seizure, CVA, palpatations, mental health)? @ -Depression, suicidal ideation, bipolar disorder, schizophrenia, anxiety EKG interpreted by me (3pts min.). @ -None X-rays interpreted by me (1pt min.). @ -None done CT interpreted by me (1pt min.). @ -None done U/S interpreted by me (1pt. min.). @ -None done What testing was considered but not performed or refused? (CT, X-rays, U/S, labs)? Why? @ -None What meds were considered but not given or refused? Why? @ -None Did you discuss the management of the patient with other professionals (professionals i.e. , PA, RACKET STRINGER, lab, RT, psych nurse, social welfare clerk, administrator health care facility, teacher, career services officer, renal case manager)? Give summary @ -[EPS, psychiatrist Was smoking cessation discussed for >3mins.? @ -No Was critical care preformed (if so, how long)? @ -No Were there social determinants of health that impacted care today? How? (Homelessness, low income, unemployed, alcoholism, drug addiction, transportation, low edu. Level, literacy, decrease access to med. care, long term, rehab)? @ -No Was there de-escalation of care discussed even if they declined (Discuss DNR or withdrawal of care, Hospice)? DNR status @ -No What co-morbidities impacted this encounter? (DM, HTN, Smoking, COPD, CAD, Cancer, CVA, ARF, Chemo, Hep., AIDS, mental health diagnosis, sleep apnea, morbid obesity)? @ -None Was patient admitted / discharged? Hospital course, mention meds given and route, prescriptions, significant lab abnormalities, going to OR and other pertinent info. @ -Patient was evaluated EPS case discussed with psychiatrist patient will be admitted for psychiatric treatment. Undiagnosed new problem with uncertain prognosis? @ -No Drug Therapy requiring intensive monitoring for toxicity (Heparin, Nitro, Insulin, Cardizem)? @ -No Were any procedures done? @ -No Diagnosis/symptom? @ -Depression Acute, or Chronic, or Acute on Chronic? @ -Acute on chronic Uncomplicated (without systemic symptoms) or Complicated (systemic symptoms)? @ -Uncomplicated Side effects of treatment? @ -No Exacerbation, Progression, or Severe Exacerbation? @ -No Poses a threat to life or bodily function? How? (Chest pain, [place], [place], pneumonia, PE, COPD, DKA, ARF, appy, cholecystitis, CVA, Diverticulitis, Homicidal, Suicidal, threat to staff... and all critical care pts) @ -yes - Lab Data Lab Results 08/25/22 08/25/22 Range/Units 22:40 22:44 Urine Opiates Screen Not Detected (NotDetected) Ur Oxycodone Screen Not Detected (NotDetected) Urine Methadone Screen Not Detected (NotDetected) Ur Propoxyphene Screen Not Detected (NotDetected) Ur Barbiturates Screen Not Detected (NotDetected) U Tricyclic Antidepress Not Detected (NotDetected) Ur Phencyclidine Scrn Not Detected (NotDetected) Ur Amphetamines Screen Detected H (NotDetected) U Methamphetamines Scrn Not Detected (NotDetected) U Benzodiazepines Scrn Not Detected (NotDetected) Urine Cocaine Screen Detected H (NotDetected) U Marijuana (THC) Screen Not Detected (NotDetected) Coronavirus (PCR) Not Detected (Not Detectd) Disposition Clinical Impression: Suicidal ideation, Depression Disposition: TRANSFER TO PSYCH HOSP/UNIT Referrals: [facility] [Primary Care Provider] - 1-2 days Time of Disposition: 23:41
[2022-08-25 23:27] LABS: Amphetamine Screen,Urine Detected (NotDetected); Barbiturate Screen,Urine Not Detected (NotDetected); Benzodiazepines Screen,Urine Not Detected (NotDetected); Cocaine Screen,Urine Detected (NotDetected); Methadone Screen, Urine Not Detected (NotDetected); Opiate Screen,Urine Not Detected (NotDetected); Oxycodone Screen, Urine Not Detected (NotDetected); Phencyclidine Screen,Urine Not Detected (NotDetected); Tricyclic Antidepressant,Urine Not Detected (NotDetected); Urn Cannabinoid Scrn Not Detected (NotDetected)
[2022-08-25] MEDS ORDERED: ACETAMINOPHEN TAB 325 MG TAB PO PRN (23:54)
[2022-08-25] MEDS ORDERED: LORazepam 1 MG TAB PO PRN (23:54)
[2022-08-25] MEDS ORDERED: MAGNESIUM HYDROXIDE 2,400 MG/10 ML CUP PO PRN (23:54)
[2022-08-25] MEDS ORDERED: HALOPERIDOL LACTATE 5 MG/ML 1 ML VIAL IM PRN (23:54)
[2022-08-26] MEDS ORDERED: BENZTROPINE MESYLATE 1 MG TAB PO PRN
[2022-08-26] MEDS ORDERED: LORazepam 2 MG/ML INJ IM PRN (00:10)
[2022-08-26] MEDS ORDERED: haloperidoL 5 MG TAB PO PRN (00:12)
[2022-08-26] MEDS ORDERED: LORazepam 1 MG TAB PO PRN (00:12)
[2022-08-26 01:57] LABS: Appearance,Urine Cloudy (Clear); Bacteria,Urine Rare /hpf; Bilirubin,Urine Negative (Negative); Blood,Urine Negative (Negative); Color,Urine Light Yellow; Glucose,Urine (UA) Negative (Negative); Ketones,Urine Negative (Negative); Leukocyte Esterase,Urine Trace (Negative); Nitrite,Urine Negative (Negative); PH, Urine 6.5 (5.0-8.0); Protein,Urine Negative (Negative); RBC,Urine <1 /hpf (0-5); Specific Gravity,Urine 1.013 (1.001-1.035); Squamous Epithelial Cell,Urine 4 /hpf (0-4); Urobilinogen,Urine <2.0 mg/dL (<2.0); WBC,Urine 5 /hpf (0-5)
--- NOTE | 2022-08-26 02:57 | P.PN ---
Progress Note - Text Progress Note Date: 08/26/22 patient refused evaluation at this time
[2022-08-26 07:36] LABS: Basophils # (A) 0.1 k/uL (0-0.2); Basophils % (A) 0 %; Eosinophils # (A) 0.7 k/uL (0-0.7); Eosinophils % (A) 5 %; HCT 38.9 % (34.0-46.0); HGB 12.4 gm/dL (11.4-16.0); Lymphocytes # (A) 2.5 k/uL (1.0-4.8); Lymphocytes % (A) 17 %; MCH 26.6 pg (25.0-35.0); MCHC 31.9 g/dL (31.0-37.0); MCV 83.4 fL (80.0-100.0); Mean Platelet Volume 6.9; Monocytes # (A) 0.7 k/uL (0-1.0); Monocytes % (A) 5 %; Neutrophils # (A) 10.4 k/uL (1.3-7.7); Neutrophils % (A) 72 %; Platelet Count 278 k/uL (150-450); RBC 4.67 m/uL (3.80-5.40); RDW 14.7 % (11.5-15.5); WBC 14.5 k/uL (3.8-10.6)
[2022-08-26 08:04] LABS: ALT 26 U/L (4-34); AST 21 U/L (14-36); African American GFR (CKD) >90 (>60 ml/min/1.73 sqM); Albumin 3.7 g/dL (3.5-5.0); Alkaline Phosphatase 109 U/L (38-126); Anion Gap 7 mmol/L; Bilirubin, Delta 0.2 mg/dL (0.0-0.2); Blood Urea Nitrogen 17 mg/dL (7-17); Calcium 8.9 mg/dL (8.4-10.2); Carbon Dioxide 27 mmol/L (22-30); Chloride 108 mmol/L (98-107); Glucose 121 mg/dL (74-99); Non-African American GFR(CKD) >90 (>60 ml/min/1.73 sqM); Potassium 4.4 mmol/L (3.5-5.1); Sodium 142 mmol/L (137-145); Total Bilirubin 0.2 mg/dL (0.2-1.3); Total Protein 7.1 g/dL (6.3-8.2)
[2022-08-26] MEDS: ASPIRIN 81 MG PO SCH (08:26)
[2022-08-26] MEDS: FOLIC ACID 1 MG TAB PO SCH (08:26)
[2022-08-26] MEDS: LORATADINE 10 MG TAB PO SCH (08:26)
[2022-08-26] MEDS: NON FORMULARY DRUG (Linaclotide [Linzess] 145 MCG Capsule) PO SCH (08:26)
[2022-08-26] MEDS: metFORMIN 500 MG TAB PO SCH ×2 (08:26→21:04)
[2022-08-26] MEDS: PRENATAL VIT-IRON-FOLIC ACID 1 EACH TABLET PO SCH (08:27)
[2022-08-26] MEDS ORDERED: NICOTINE 14MG/24HR PATCH TRANSDERM SCH (09:00)
[2022-08-26] MEDS: MAG HYDROX/AL HYDROX/SIMETH 30 ML CUP PO PRN ×2 (10:05→18:14)
[2022-08-26] MEDS ORDERED: ONDANSETRON 4 MG TAB PO PRN (10:23)
[2022-08-26 10:48] LABS: Basophils # (A) 0.1 k/uL (0-0.2); Basophils % (A) 0 %; Eosinophils # (A) 0.6 k/uL (0-0.7); Eosinophils % (A) 4 %; HCT 38.9 % (34.0-46.0); HGB 12.5 gm/dL (11.4-16.0); Lymphocytes % (A) 15 %; MCH 26.8 pg (25.0-35.0); MCHC 32.2 g/dL (31.0-37.0); MCV 83.2 fL (80.0-100.0); Mean Platelet Volume 6.9; Monocytes # (A) 0.6 k/uL (0-1.0); Monocytes % (A) 4 %; Neutrophils % (A) 75 %; Platelet Count 249 k/uL (150-450); RBC 4.68 m/uL (3.80-5.40); RDW 14.5 % (11.5-15.5); WBC 13.3 k/uL (3.8-10.6)
[2022-08-26 11:56] LABS: ALT 28 U/L (4-34); AST 22 U/L (14-36); Acetaminophen <10.0 ug/mL; African American GFR (CKD) >90 (>60 ml/min/1.73 sqM); Albumin 3.7 g/dL (3.5-5.0); Alkaline Phosphatase 105 U/L (38-126); Anion Gap 6 mmol/L; Blood Urea Nitrogen 15 mg/dL (7-17); Calcium 8.6 mg/dL (8.4-10.2); Carbon Dioxide 28 mmol/L (22-30); Chloride 107 mmol/L (98-107); Glucose 131 mg/dL (74-99); Non-African American GFR(CKD) >90 (>60 ml/min/1.73 sqM); Potassium 4.1 mmol/L (3.5-5.1); Salicylate <1.0 mg/dL; Sodium 141 mmol/L (137-145); Total Bilirubin 0.3 mg/dL (0.2-1.3); Total Protein 7.2 g/dL (6.3-8.2)
--- NOTE | 2022-08-26 14:30 | P.HP ---
Psychiatric H&P - . H&P Date: 08/26/22 History & Physical: Allergies Allergy/AdvReac Type Severity Reaction Status Date / Time Iodinated Contrast Media Allergy Anaphylaxis Verified 08/26/22 01:29 [Iodinated Contrast Media - IV Dye] peanut Allergy Anaphylaxis Verified 08/26/22 01:29 Penicillins Allergy Anaphylaxis Verified 08/26/22 01:29 shellfish derived Allergy Anaphylaxis Verified 08/26/22 01:29 cephalexin monohydrate AdvReac Nausea & Verified 08/26/22 01:29 [From Keflex] Vomiting & Diarrhea lacosamide [From Vimpat] AdvReac Anaphylaxis Verified 08/26/22 01:29 trazodone AdvReac bp Verified 08/26/22 01:29 issues/dissiness--patient takes at home Vital Signs Temp 97.2 F L 08/26/22 00:40 Pulse 80 08/26/22 00:40 Resp 16 08/26/22 00:40 BP 108/53 08/26/22 00:40 Pulse Ox 96 08/26/22 00:40 FiO2 Intake & Output 08/25/22 08/26/22 08/26/22 18:59 06:59 18:59 Weight 126.269 kg Laboratory Last Values WBC 13.3 k/uL (3.8-10.6) H 08/26/22 10:12 RBC 4.68 m/uL (3.80-5.40) 08/26/22 10:12 Hgb 12.5 gm/dL (11.4-16.0) 08/26/22 10:12 Hct 38.9 % (34.0-46.0) 08/26/22 10:12 MCV 83.2 fL (80.0-100.0) 08/26/22 10:12 MCH 26.8 pg (25.0-35.0) 08/26/22 10:12 MCHC 32.2 g/dL (31.0-37.0) 08/26/22 10:12 RDW 14.5 % (11.5-15.5) 08/26/22 10:12 Plt Count 249 k/uL (150-450) 08/26/22 10:12 MPV 6.9 08/26/22 10:12 Neutrophils % 75 % 08/26/22 10:12 Lymphocytes % 15 % 08/26/22 10:12 Monocytes % 4 % 08/26/22 10:12 Eosinophils % 4 % 08/26/22 10:12 Basophils % 0 % 08/26/22 10:12 Neutrophils # 10.0 k/uL (1.3-7.7) H 08/26/22 10:12 Lymphocytes # 2.0 k/uL (1.0-4.8) 08/26/22 10:12 Monocytes # 0.6 k/uL (0-1.0) 08/26/22 10:12 Eosinophils # 0.6 k/uL (0-0.7) 08/26/22 10:12 Basophils # 0.1 k/uL (0-0.2) 08/26/22 10:12 Sodium 141 mmol/L (137-145) 08/26/22 10:12 Potassium 4.1 mmol/L (3.5-5.1) 08/26/22 10:12 Chloride 107 mmol/L (98-107) 08/26/22 10:12 Carbon Dioxide 28 mmol/L (22-30) 08/26/22 10:12 Anion Gap 6 mmol/L 08/26/22 10:12 BUN 15 mg/dL (7-17) 08/26/22 10:12 Creatinine 0.71 mg/dL (0.52-1.04) 08/26/22 10:12 Est GFR (CKD-EPI)AfAm >90 (>60 ml/min/1.73 sqM) 08/26/22 10:12 Est GFR (CKD-EPI)NonAf >90 (>60 ml/min/1.73 sqM) 08/26/22 10:12 Glucose 131 mg/dL (74-99) H 08/26/22 10:12 Plasma Lactic Acid [place] 1.3 mmol/L (0.7-2.0) 08/26/22 10:12 Calcium 8.6 mg/dL (8.4-10.2) 08/26/22 10:12 Total Bilirubin 0.3 mg/dL (0.2-1.3) 08/26/22 10:12 Conjugated Bilirubin 0.0 mg/dL (0.0-0.3) 08/26/22 06:40 Unconjugated Bilirubin 0.0 mg/dL (0.0-1.1) 08/26/22 06:40 Delta Bilirubin 0.2 mg/dL (0.0-0.2) 08/26/22 06:40 AST 22 U/L (14-36) 08/26/22 10:12 ALT 28 U/L (4-34) 08/26/22 10:12 Alkaline Phosphatase 105 U/L (38-126) 08/26/22 10:12 Total Protein 7.2 g/dL (6.3-8.2) 08/26/22 10:12 Albumin 3.7 g/dL (3.5-5.0) 08/26/22 10:12 TSH 2.130 mIU/L (0.465-4.680) 08/26/22 06:40 Urine Color Light Yellow 08/26/22 01:43 Urine Appearance Cloudy (Clear) H 08/26/22 01:43 Urine pH 6.5 (5.0-8.0) 08/26/22 01:43 Ur Specific [place] 1.013 (1.001-1.035) 08/26/22 01:43 Urine Protein Negative (Negative) 08/26/22 01:43 Urine Glucose (UA) Negative (Negative) 08/26/22 01:43 Urine Ketones Negative (Negative) 08/26/22 01:43 Urine Blood Negative (Negative) 08/26/22 01:43 Urine Nitrite Negative (Negative) 08/26/22 01:43 Urine Bilirubin Negative (Negative) 08/26/22 01:43 Urine Urobilinogen <2.0 mg/dL (<2.0) 08/26/22 01:43 Ur Leukocyte Esterase Trace (Negative) H 08/26/22 01:43 Urine RBC <1 /hpf (0-5) 08/26/22 01:43 Urine WBC 5 /hpf (0-5) 08/26/22 01:43 Ur Squamous Epith Cells 4 /hpf (0-4) 08/26/22 01:43 Urine Bacteria Rare /hpf (None) H 08/26/22 01:43 Urine HCG, Qual Not Detected (Not Detectd) 08/26/22 01:43 Salicylates <1.0 mg/dL 08/26/22 10:12 Urine Opiates Screen Not Detected (NotDetected) 08/25/22 22:40 Ur Oxycodone Screen Not Detected (NotDetected) 08/25/22 22:40 Urine Methadone Screen Not Detected (NotDetected) 08/25/22 22:40 Ur Propoxyphene Screen Not Detected (NotDetected) 08/25/22 22:40 Acetaminophen <10.0 ug/mL 08/26/22 10:12 Ur Barbiturates Screen Not Detected (NotDetected) 08/25/22 22:40 U Tricyclic Antidepress Not Detected (NotDetected) 08/25/22 22:40 Ur Phencyclidine Scrn Not Detected (NotDetected) 08/25/22 22:40 Ur Amphetamines Screen Detected (NotDetected) H 08/25/22 22:40 U Methamphetamines Scrn Not Detected (NotDetected) 08/25/22 22:40 U Benzodiazepines Scrn Not Detected (NotDetected) 08/25/22 22:40 Urine Cocaine Screen Detected (NotDetected) H 08/25/22 22:40 U Marijuana (THC) Screen Not Detected (NotDetected) 08/25/22 22:40 Coronavirus (PCR) Not Detected (Not Detectd) 08/25/22 22:44 08/26/22 13:47 IDENTIFYING DATA: Patient is a 42-year-old female who currently is living in an apartment alone, has 2 kids which live in foster care, returned the unemployed. She has a public guardian. HPI: The patient presented to the hospital yesterday after bringing brought in by police and EMS workers. Patient apparently was abusing drugs and also overdosed. According to ER report patient took 6 Vistaril's in a suicide attempt. Her urine drug screen was positive for amphetamines and cocaine. Patient earlier this morning was fairly nauseous and vomiting and was given Zofran which helped. Patient claims that now she feels "terrible" and was fairly irritable and concrete during the interview. She was fairly complaining of shakiness and feeling cold. She states that she "couldn't go home" and claims that she was recently on a dating site and had a bad experience which she was fairly guarded about. She claims that she has poor finances and no food in her house. She claims that she wanted to "end it" after the overdose. She claims that because nobody cares for me". She did claim that she is taking her medications at home. She states that she passed out after taking the medications and then called the ambulance. He were concerned. She claims that her sleep and appetite are poor. She denies any cigarette use or marijuana use but is apparently using cocaine. At this time she is denying any current suicidal or homicidal ideations. Denying any auditory or visual hallucinations currently. PAST PSYCHIATRIC HISTORY: Patient states that she has a history of schizoaffective disorder. Patient was previously on several different psychiatric medications and was previously on Cymbalta, Lamictal, trazodone, Vistaril and naltrexone. Patient is now currently getting Aristada 882 mg IM from [facility] and last injection was given while in hospital on 08/07 andnext dose will be due on 09/04. She states that she has been hospitalized several times in [place] and also at [facility], most recently was discharged from the mental health unit in early Aug 2022. She claims that she follows up at [facility] with Dr. Zuñiga. She claims that she is had 3 suicide attempts where she tried to overdose. PMH: Seizures , asthma, diabetes and heart murmur ALLERGIES: as per EMR CHEMICAL DEPENDENCY HISTORY: as per HPI FAMILY PSYCHIATRIC/SUBSTANCE USE HISTORY: denies SOCIAL HISTORY: Patient was born and raised in [place] and claims that she completed up to 11th grade. She claims to have 2 kids are currently in foster care. She states that she is and currently living in apartment alone. She states that she works at [employer]. She has been to halfway several times in the past however is guarded about this. MENTAL STATUS EXAM: General Appearance: Patient appears to be stated age is overweight, drowsy, directable, and irritable. Patient appears to have poor hygiene and grooming. short hair, glasses Behavior: Patient is seated without any agitated behavior. Superficial. Guarded. irritable Speech: Patient's speech is fluent and nonpressured. [place]. Monotone. Mood/Affect: Patient reports their mood is "depressed", affect is congruent and irritable. Suicidality/Homicidality: Patient denies having any homicidal ideation intent or plan. Denies any suicidal thoughts, no intent or plan. Perceptions: Patient denies any auditory hallucinations, denies any visual hallucinations. Though content/process: There is no evidence of any delusional thought content and thought process is linear. [place]. Depressive content. Memory and concentration: AOX3, grossly intact for the purposes of this session. Can spell "WORLD" backwards Judgment and insight: poor STRENGTHS/WEAKNESSES: strength is that patient is resilient. Weakness is that patient has poor judgment and is impulsive INTELLECT: Below average IMPRESSIONS: overdose of medications Schizoaffective disorder, depressive type cocaine abuse methamphetamine use disorder PLAN: -Patient is admitted under voluntary status to MHU for stabilization of psychiatric symptoms and safety. Patient signed adult voluntary form and medication consent and is placed in patient's chart. -Medications : Will re-start patient on Cymbalta 60 mg daily for mood/anxiety/pain, Vistaril when necessary for anxiety. Patient is currently on Aristada 882 mg IM and received last on 08/07 and will be due for next dose on 09/04. cogentin 1 mg bid prn for eps prophylaxis. naltrexone 50 mg daily for cravings. -Haldol and Ativan PRN for agitation/aggression -Patient was informed of the risks, benefits and side effects of the medication and patient verbally consented to taking the medications. Patient signed med consent form and was placed in chart. -Internal Medicine consult to perform medical evaluation and physical. -NRT -not needed as patient does not smoke. -SW on board for discharge planning. Encourage patient to participate in groups to work on coping skills. will attempt to offer patient rehab. 08/26/22 14:24
[2022-08-26 14:43] LABS: Chol/HDL Ratio 2.99 Ratio; LDL Cholesterol,Calculated 91.1 mg/dL (0.0-131.0); VLDL Calculation 15.96 mg/dL (5.00-40.00)
[2022-08-26 16:48] LABS: Glucose,Whole Blood 119 mg/dL (70-110)
[2022-08-26] MEDS: hydrOXYzine pamoate 25 MG CAP PO PRN (18:14)
[2022-08-26] MEDS ORDERED: NON FORMULARY DRUG (Glucerna Shake 1 CAN Ml) PO SCH (21:00)
[2022-08-26] MEDS: ALBUTEROL HFA INHALER INHALATION PRN (21:02)
[2022-08-26] MEDS: MELATONIN 3 MG TABLET PO SCH (21:04)
[2022-08-26] MEDS: MONTELUKAST 10 MG TAB PO SCH (21:04)
[2022-08-26] MEDS: DOCUSATE 100 MG CAP PO SCH (21:04)
[2022-08-26] MEDS: SYMBICORT 160-4.5 MCG INHALER INHALATION SCH (21:04)
[2022-08-26] MEDS: ZONISAMIDE 100 MG CAP PO SCH (21:08)
--- NOTE | 2022-08-27 03:19 | P.MDCNMH ---
Past Medical History Past Medical History: Asthma, Heart Failure, COPD, Fibromyalgia, GERD/Reflux, GI Bleed, Hypertension, Liver Disease, Osteoarthritis (OA), Pneumonia, Seizure Disorder, Skin Disorder Additional Past Medical History / Comment(s): Bronchitis, gestational diabetes, seizures with last one 09/03/20, sickle cell trait, liver cirrhosis, anemia, chrons, IBS, ulcerative colitis, lowr GI bleed, hemorrhoids, constipation, psoriasis, migraines, chronic low back and cervical pain, scoliosis, arhtritis in multiple joints, gout bilateral feet, History of Any Multi-Drug Resistant Organisms: None Reported Past Surgical History: Cholecystectomy, Orthopedic Surgery Additional Past Surgical History / Comment(s): L oophorectomy d/t cyst, D&C, colonoscopy, L carpal tunnel release, Past Anesthesia/Blood Transfusion Reactions: Motion Sickness, Postoperative Nausea & Vomiting (PONV) Smoking Status: Former smoker - Past Family History Mother History Unknown: Yes Family Medical History: Cancer Additional Family Medical History / Comment(s): Mother had breast cancer and metnal illness She is living. Father Family Medical History: Cancer Additional Family Medical History / Comment(s): Father is . He had agent orange exposure. He had liver cancer, bowel to brain cancer. Medications and Allergies Home Medications Medication Instructions Recorded Confirmed Type Zonisamide [Zonegran] 300 mg PO HS 12/16/18 08/26/22 History Montelukast [Singulair] 10 mg PO HS 12/16/19 08/26/22 History Omeprazole 20 mg PO DAILY 12/16/19 08/26/22 History allopurinoL [Zyloprim] 100 mg PO DAILY 12/16/19 08/26/22 History DULoxetine HCL [Cymbalta] 60 mg PO DAILY 30 Days capsule. 03/08/20 08/26/22 Rx Aspirin EC [Ecotrin Low Dose] 81 mg PO DAILY 04/12/20 08/26/22 History Naltrexone HCl [Revia] 50 mg PO DAILY 04/12/20 08/26/22 History calcium polycarbophiL [Fibercon] 1,250 mg PO BID PRN 09/04/20 08/26/22 History Loratadine [Claritin] 10 mg PO DAILY 12/22/20 08/26/22 History Albuterol Sulfate [Proair Hfa] 2 puff INHALATION RT-QID PRN 12/12/21 08/26/22 History Cholecalciferol [Vitamin D3 (125 125 mcg PO DAILY 12/12/21 08/26/22 History Mcg = 5000 Iu)] Docusate 250mg Cap 250 mg PO BID 12/12/21 08/26/22 History Fenofibrate [Lofibra] 54 mg PO DAILY 12/12/21 08/26/22 History Folic Acid 1 mg PO DAILY 12/12/21 08/26/22 History Glucerna Shake 1 can PO BID 12/12/21 08/26/22 History Linaclotide [Linzess] 145 mcg PO DAILY 12/12/21 08/26/22 History metFORMIN HCL [Glucophage] 1,000 mg PO BID 12/12/21 08/26/22 History Ibuprofen [Motrin] 600 mg PO Q6HR PRN #20 tab 07/28/22 08/26/22 Rx Acetaminophen Tab [Tylenol] 500 mg PO QID PRN 08/05/22 08/26/22 History Sag-Udrs-Cintr Acid 1 cap PO DAILY 08/05/22 08/26/22 History [-U Capsule (formulary)] guaiFENesin-DM 100-10MG/5ML 10 ml PO Q6H PRN 08/05/22 08/26/22 History [Robitussin DM] Aripiprazole Lauroxil [Aristada] 882 mg IM Q28D 28 Days #1 08/10/22 08/26/22 Rx Benztropine Mesylate [Cogentin] 1 mg PO BID PRN 30 Days #30 tab 08/10/22 08/26/22 Rx Budesonide-Formot 160-4.5 Mcg 2 puff INHALATION RT-BID each 08/10/22 08/26/22 Rx [Symbicort 160-4.5 Mcg Inhaler] hydrOXYzine pamoate 50 mg PO TID 30 Days #90 cap 08/10/22 08/26/22 Rx Allergies Allergy/AdvReac Type Severity Reaction Status Date / Time Iodinated Contrast Media Allergy Anaphylaxis Verified 08/26/22 01:29 [Iodinated Contrast Media - IV Dye] peanut Allergy Anaphylaxis Verified 08/26/22 01:29 Penicillins Allergy Anaphylaxis Verified 08/26/22 01:29 shellfish derived Allergy Anaphylaxis Verified 08/26/22 01:29 cephalexin monohydrate AdvReac Nausea & Verified 08/26/22 01:29 [From Keflex] Vomiting & Diarrhea lacosamide [From Vimpat] AdvReac Anaphylaxis Verified 08/26/22 01:29 trazodone AdvReac bp Verified 08/26/22 01:29 issues/dissiness--patient takes at home Physical Exam Vitals: Vital Signs Temp Pulse Pulse Resp BP BP Pulse Ox 08/26/22 21:13 75 18 119/56 98 08/26/22 16:05 97.8 F 98 20 120/58 97 Results CBC & Chem 7: 08/26/22 10:12 08/26/22 10:12 Labs: Abnormal Lab Results - Last 24 Hours (Table) 08/26/22 08/26/22 08/26/22 Range/Units 06:40 06:40 10:12 WBC 14.5 H (3.8-10.6) k/uL Neutrophils # 10.4 H (1.3-7.7) k/uL Chloride 108 H (98-107) mmol/L Glucose 121 H 131 H (74-99) mg/dL POC Glucose (mg/dL) (70-110) mg/dL 08/26/22 08/26/22 Range/Units 10:12 16:46 WBC 13.3 H (3.8-10.6) k/uL Neutrophils # 10.0 H (1.3-7.7) k/uL Chloride (98-107) mmol/L Glucose (74-99) mg/dL POC Glucose (mg/dL) 119 H (70-110) mg/dL Assessment and Plan Assessment: atypical chest pain inconsistent symptoms (patient reports 8/10 pain severity with difficulty breathing, when she is clearly sitting comfortably infront of process description writer , vital s igns stable and within normal limits) trops negative EKG no acute ST changes check lipid panel continue ASA patient symptoms unlikely to be cardiac in origin dm continue with metformin h/o asthma continue with inhalers compensated thank you for this consultation
[2022-08-27] MEDS ORDERED: DULoxetine HCL 60 MG CAPSULE.DR PO SCH (09:00)
[2022-08-27] MEDS: LORATADINE 10 MG TAB PO SCH (09:38)
[2022-08-27] MEDS: ASPIRIN 81 MG PO SCH (09:38)
[2022-08-27] MEDS: allopurinoL 100 MG TAB PO SCH (09:38)
[2022-08-27] MEDS: CHOLECALCIFEROL 125 MCG (5000 IU) TABLET PO SCH (09:38)
[2022-08-27] MEDS: FOLIC ACID 1 MG TAB PO SCH (09:38)
[2022-08-27] MEDS: FENOFIBRATE 54 MG TAB PO SCH (09:38)
[2022-08-27] MEDS: NALTREXONE HCL 50 MG TAB PO SCH (09:39)
[2022-08-27] MEDS: metFORMIN 500 MG TAB PO SCH ×3 (09:39→21:33)
[2022-08-27] MEDS: PRENATAL VIT-IRON-FOLIC ACID 1 EACH TABLET PO SCH (09:39)
[2022-08-27] MEDS: MAG HYDROX/AL HYDROX/SIMETH 30 ML CUP PO PRN (09:42)
[2022-08-27] MEDS: ALBUTEROL HFA INHALER INHALATION PRN (09:45)
[2022-08-27] MEDS: DOCUSATE 100 MG CAP PO SCH ×3 (10:30→21:32)
[2022-08-27] MEDS: SYMBICORT 160-4.5 MCG INHALER INHALATION SCH ×2 (10:30→21:31)
[2022-08-27] MEDS: NON FORMULARY DRUG (Linaclotide [Linzess] 145 MCG Capsule) PO SCH (10:30)
[2022-08-27] MEDS ORDERED: LOPERAMIDE 2 MG CAP PO PRN (11:19)
--- NOTE | 2022-08-27 11:33 | P.PN ---
Progress Note - Text Progress Note Date: 08/27/22 Interval History: Patient was seen lying in her bed this morning and was directable and agreeable to speak with curriculum writer. Patient appears to be mildly less irritable today. she was complaining of ongoing nausea/vomitting this morning. she states that the zofran has been helping. she wants to continue on with the cymbalta as it has been helping her anxiety and mood mildly. she claims that she would be ok trying seroquel at night. she continues to appear to be isolating and also has poor insight and judgment into her condition. At this time patient denies any suicidal or homical ideations, intent or plan. Patient denies any auditory, visual hallucinations and denies any paranoia or delusions. Patient denies any side effects from the medications and has been compliant with meds. Mental Status Exam: General Appearance: Patient appears to be stated age is overweight, directable, and less irritable. Patient appears to have poor hygiene and grooming. short hair, glasses Behavior: Patient is seated without any agitated behavior. Superficial. mildly less irritable Speech: Patient's speech is fluent and nonpressured. [place]. Mood/Affect: Patient reports their mood is "depressed", affect is congruent and less irritable. Suicidality/Homicidality: Patient denies having any homicidal ideation intent or plan. Denies any suicidal thoughts, no intent or plan. Perceptions: Patient denies any auditory hallucinations, denies any visual hallucinations. Though content/process: There is no evidence of any delusional thought content and thought process is linear. [place]. demadning Memory and concentration: AOX3, grossly intact for the purposes of this session Judgment and insight: poor, improving mildly IMPRESSIONS: overdose of medications Schizoaffective disorder, depressive type cocaine abuse methamphetamine use disorder Plan: -Patient continues to meet criteria for inpatient psychiatric admission for symptom stabilization and safety. Patient has not signed adult voluntary form and medication consent and was placed in patient's chart. -Medications: increase Cymbalta 90 mg daily for mood/anxiety/pain, Vistaril when necessary for anxiety. Patient is currently on Aristada 882 mg IM and received last on 08/07 and will be due for next dose on 09/04. cogentin 1 mg bid prn for eps prophylaxis. naltrexone 50 mg daily for cravings. added seroquel 50 mg qhs for insomnia/mood adjunct. -When necessary Ativan and Haldol for agitation/aggression. -NRT - not needed as patient does not smoke. -SW on board for discharge planning. Encouraged the patient to participate in milieu. patient is declining rehab. likely discharge in 1-2 days once patient becomes more psychiatrically stable.
[2022-08-27] MEDS: hydrOXYzine pamoate 25 MG CAP PO PRN (11:37)
[2022-08-27] MEDS ORDERED: QUEtiapine 50 MG TAB PO SCH (21:00)
[2022-08-27] MEDS: MELATONIN 3 MG TABLET PO SCH ×2 (21:22→21:32)
[2022-08-27] MEDS: MONTELUKAST 10 MG TAB PO SCH (21:23)
[2022-08-27] MEDS: ZONISAMIDE 100 MG CAP PO SCH (21:23)
[2022-08-28] MEDS: SYMBICORT 160-4.5 MCG INHALER INHALATION SCH ×2 (08:38→21:13)
[2022-08-28] MEDS: FOLIC ACID 1 MG TAB PO SCH (08:39)
[2022-08-28] MEDS: CHOLECALCIFEROL 125 MCG (5000 IU) TABLET PO SCH (08:39)
[2022-08-28] MEDS: NON FORMULARY DRUG (Linaclotide [Linzess] 145 MCG Capsule) PO SCH (08:39)
[2022-08-28] MEDS: ASPIRIN 81 MG PO SCH (08:39)
[2022-08-28] MEDS: allopurinoL 100 MG TAB PO SCH (08:39)
[2022-08-28] MEDS: LORATADINE 10 MG TAB PO SCH (08:39)
[2022-08-28] MEDS: DOCUSATE 100 MG CAP PO SCH ×2 (08:39→21:13)
[2022-08-28] MEDS: FENOFIBRATE 54 MG TAB PO SCH (08:39)
[2022-08-28] MEDS ORDERED: DULoxetine HCL 30 MG CAPSULE.DR PO SCH (09:00)
[2022-08-28] MEDS: NALTREXONE HCL 50 MG TAB PO SCH (09:10)
[2022-08-28] MEDS: metFORMIN 500 MG TAB PO SCH ×2 (09:10→21:16)
[2022-08-28] MEDS: PRENATAL VIT-IRON-FOLIC ACID 1 EACH TABLET PO SCH (09:10)
--- NOTE | 2022-08-28 10:30 | P.PN ---
Progress Note - Text Progress Note Date: 08/28/22 Interval History: Patient was seen lying in her bed this morning and was directable and agreeable to speak with proposal lead writer. Patient appears to be mildly less irritable today however was endorisng concerns overnight. she states that she feels too sedated in the mornings and feels like she has little energy. she continues to appear disinterested in groups and has been mainly isolating in her room. she was complaining of ongoing nausea/vomitting this morning which she does state has been mildly improving since yesterday. continues to have poor insight and judgment into her condition however does state that she feels unsafe to return home today due to feeling "not good". At this time patient denies any suicidal or homical ideations, intent or plan. Patient denies any auditory, visual hallucinations and denies any paranoia or delusions. Patient denies any side effects from the medications and has been compliant with meds. Mental Status Exam: General Appearance: Patient appears to be stated age is overweight, directable, and less irritable. Patient appears to have improving hygiene and grooming. short hair, glasses Behavior: Patient is seated without any agitated behavior. Superficial. improving irritability Speech: Patient's speech is fluent and nonpressured. [place]. Mood/Affect: Patient reports their mood is "the same", affect is congruent and constricted Suicidality/Homicidality: Patient denies having any homicidal ideation intent or plan. Denies any suicidal thoughts, no intent or plan. Perceptions: Patient denies any auditory hallucinations, denies any visual hallucinations. Though content/process: There is no evidence of any delusional thought content and thought process is linear. [place]. Memory and concentration: AOX3, grossly intact for the purposes of this session Judgment and insight: poor, improving mildly IMPRESSIONS: overdose of medications Schizoaffective disorder, depressive type cocaine abuse methamphetamine use disorder Plan: -Patient continues to meet criteria for inpatient psychiatric admission for symptom stabilization and safety. Patient has not signed adult voluntary form and medication consent and was placed in patient's chart. -Medications: Cymbalta 90 mg daily for mood/anxiety/pain likely increase over the weekend to 60 mg bid starting tomorrow, Vistaril when necessary for anxiety. Patient is currently on Aristada 882 mg IM and received last on 08/07 and will be due for next dose on 09/04. cogentin 1 mg bid prn for eps prophylaxis. naltrexone 50 mg daily for cravings. decrease seroquel 25 mg qhs for insomnia/mood adjunct. -When necessary Ativan and Haldol for agitation/aggression. -NRT - not needed as patient does not smoke. -SW on board for discharge planning. Encouraged the patient to participate in milieu. patient is declining rehab. likely discharge early next week as patient is not yet psychiatrically stabilized and feels unsafe going home today.
[2022-08-28] MEDS: hydrOXYzine pamoate 25 MG CAP PO PRN ×2 (12:51→20:11)
[2022-08-28] MEDS: MAG HYDROX/AL HYDROX/SIMETH 30 ML CUP PO PRN (12:51)
[2022-08-28] MEDS ORDERED: QUEtiapine 25 MG TAB PO SCH (21:00)
[2022-08-28] MEDS: MONTELUKAST 10 MG TAB PO SCH (21:14)
[2022-08-28] MEDS: DULoxetine HCL 60 MG CAPSULE.DR PO SCH (21:15)
[2022-08-28] MEDS: ZONISAMIDE 100 MG CAP PO SCH (21:15)
[2022-08-28] MEDS: MELATONIN 3 MG TABLET PO SCH (21:16)
[2022-08-29] MEDS: SYMBICORT 160-4.5 MCG INHALER INHALATION SCH ×2 (10:00→21:00)
[2022-08-29] MEDS: allopurinoL 100 MG TAB PO SCH (10:00)
[2022-08-29] MEDS: CHOLECALCIFEROL 125 MCG (5000 IU) TABLET PO SCH (10:01)
[2022-08-29] MEDS: FENOFIBRATE 54 MG TAB PO SCH (10:01)
[2022-08-29] MEDS: ASPIRIN 81 MG PO SCH (10:01)
[2022-08-29] MEDS: DULoxetine HCL 60 MG CAPSULE.DR PO SCH ×2 (10:01→20:59)
[2022-08-29] MEDS: DOCUSATE 100 MG CAP PO SCH ×2 (10:01→21:00)
[2022-08-29] MEDS: NON FORMULARY DRUG (Linaclotide [Linzess] 145 MCG Capsule) PO SCH (10:02)
[2022-08-29] MEDS: LORATADINE 10 MG TAB PO SCH (10:02)
[2022-08-29] MEDS: PRENATAL VIT-IRON-FOLIC ACID 1 EACH TABLET PO SCH (10:03)
[2022-08-29] MEDS: FOLIC ACID 1 MG TAB PO SCH (10:03)
[2022-08-29] MEDS: metFORMIN 500 MG TAB PO SCH ×2 (10:03→20:59)
[2022-08-29] MEDS: NALTREXONE HCL 50 MG TAB PO SCH (10:03)
[2022-08-29] MEDS: hydrOXYzine pamoate 25 MG CAP PO PRN (17:55)
--- NOTE | 2022-08-29 20:32 | P.PN ---
Progress Note - Text Progress Note Date: 08/29/22 Interval History: Patient was seen lying in her bed this morning and was directable and agreeable to speak with medical underwriter. Patient says that her mood is "better". She continues to feel sedated in the morning. She was agreeable to Seroquel to be stopped. She slept well at night. She denies nausea/vomiting since yesterday. Continues to have poor insight and judgment into her condition. At this time patient denies any suicidal or homical ideations, intent or plan. Patient denies any auditory, visual hallucinations and denies any paranoia or delusions. Patient denies any side effects from the medications and has been compliant with meds. Mental Status Exam: General Appearance: Patient appears to be stated age is overweight, directable, and less irritable. Patient appears to have improving hygiene and grooming. short hair, glasses Behavior: Patient is seated without any agitated behavior. Superficial. improving irritability Speech: Patient's speech is fluent and nonpressured. [place]. Mood/Affect: Patient reports their mood is better", affect is congruent and constricted Suicidality/Homicidality: Patient denies having any homicidal ideation intent or plan. Denies any suicidal thoughts, no intent or plan. Perceptions: Patient denies any auditory hallucinations, denies any visual hallucinations. Though content/process: There is no evidence of any delusional thought content and thought process is linear. [place]. Memory and concentration: AOX3, grossly intact for the purposes of this session Judgment and insight: poor, improving mildly IMPRESSIONS: Schizoaffective disorder, depressive type cocaine abuse methamphetamine use disorder Plan: -Patient continues to meet criteria for inpatient psychiatric admission for symptom stabilization and safety. Patient has not signed adult voluntary form and medication consent and was placed in patient's chart. -Medications: Cymbalta 60 mg bid starting tomorrow, Vistaril when necessary for anxiety. Patient is currently on Aristada 882 mg IM and received last on 08/07 and will be due for next dose on 09/04. cogentin 1 mg bid prn for eps prophylaxis. naltrexone 50 mg daily for cravings. Stop seroquel -When necessary Ativan and Haldol for agitation/aggression. -NRT - not needed as patient does not smoke. -SW on board for discharge planning. Encouraged the patient to participate in milieu. patient is declining rehab. likely discharge early next week as patient is not yet psychiatrically stabilized
[2022-08-29] MEDS: ZONISAMIDE 100 MG CAP PO SCH (20:58)
[2022-08-29] MEDS: MONTELUKAST 10 MG TAB PO SCH (20:59)
[2022-08-29] MEDS: MELATONIN 3 MG TABLET PO SCH (21:00)
[2022-08-30] MEDS: SYMBICORT 160-4.5 MCG INHALER INHALATION SCH ×2 (09:32→20:51)
[2022-08-30] MEDS: DOCUSATE 100 MG CAP PO SCH ×2 (09:32→20:51)
[2022-08-30] MEDS: FENOFIBRATE 54 MG TAB PO SCH (09:32)
[2022-08-30] MEDS: allopurinoL 100 MG TAB PO SCH (09:32)
[2022-08-30] MEDS: LORATADINE 10 MG TAB PO SCH (09:33)
[2022-08-30] MEDS: NON FORMULARY DRUG (Linaclotide [Linzess] 145 MCG Capsule) PO SCH (09:33)
[2022-08-30] MEDS: NALTREXONE HCL 50 MG TAB PO SCH (09:33)
[2022-08-30] MEDS: metFORMIN 500 MG TAB PO SCH ×2 (09:34→20:52)
[2022-08-30] MEDS: FOLIC ACID 1 MG TAB PO SCH (09:35)
[2022-08-30] MEDS: CHOLECALCIFEROL 125 MCG (5000 IU) TABLET PO SCH (09:35)
[2022-08-30] MEDS: DULoxetine HCL 60 MG CAPSULE.DR PO SCH ×2 (09:35→20:52)
[2022-08-30] MEDS: PRENATAL VIT-IRON-FOLIC ACID 1 EACH TABLET PO SCH (09:35)
[2022-08-30] MEDS: ASPIRIN 81 MG PO SCH (09:35)
[2022-08-30 09:39] VITALS: BP 142/88; PULSE 77; RESP 16; TEMP 97.2
--- NOTE | 2022-08-30 18:01 | P.PN ---
Progress Note - Text Progress Note Date: 08/30/22 Interval History: Patient was seen and agreeable to speak with telegraphic typewriter operator. Patient says that her mood is "better and ready to go home". She says she feels less sedated in the morning since stopping seroquel. She slept well at night. She states she has been eating well. We discussed her other medications and answered questions. At this time patient denies any suicidal or homical ideations, intent or plan. Patient denies any auditory, visual hallucinations and denies any paranoia or delusions. Patient denies any side effects from the medications and has been compliant with meds. Mental Status Exam: General Appearance: Patient appears to be stated age is overweight, directable. Patient appears to have improving hygiene and grooming. short hair, glasses Behavior: Patient is seated without any agitated behavior. Speech: Patient's speech is fluent and nonpressured. [place]. Mood/Affect: Patient reports their mood is "better", affect is congruent and constricted Suicidality/Homicidality: Patient denies having any homicidal ideation intent or plan. Denies any suicidal thoughts, no intent or plan. Perceptions: Patient denies any auditory hallucinations, denies any visual hallucinations. Though content/process: There is no evidence of any delusional thought content and thought process is linear. [place]. Memory and concentration: AOX3, grossly intact for the purposes of this session Judgment and insight: poor, improving mildly IMPRESSIONS: Schizoaffective disorder, depressive type cocaine abuse methamphetamine use disorder Plan: -Patient continues to meet criteria for inpatient psychiatric admission for symptom stabilization and safety. Patient has not signed adult voluntary form and medication consent and was placed in patient's chart. -Medications: Cymbalta 60 mg bid, Vistaril when necessary for anxiety. Patient is currently on Aristada 882 mg IM and received last on 08/07 and will be due for next dose on 09/04. cogentin 1 mg bid prn for eps prophylaxis. naltrexone 50 mg daily for cravings. -When necessary Ativan and Haldol for agitation/aggression. -NRT - not needed as patient does not smoke. -SW on board for discharge planning. Encouraged the patient to participate in milieu. patient is declining rehab. likely discharge early next week
[2022-08-30] MEDS: MELATONIN 3 MG TABLET PO SCH (20:51)
[2022-08-30] MEDS: MONTELUKAST 10 MG TAB PO SCH (20:51)
[2022-08-30] MEDS: ZONISAMIDE 100 MG CAP PO SCH (20:52)
[2022-08-30] MEDS: hydrOXYzine pamoate 25 MG CAP PO PRN (20:53)
[2022-08-31] MEDS: FENOFIBRATE 54 MG TAB PO SCH (09:26)
[2022-08-31] MEDS: ASPIRIN 81 MG PO SCH (09:26)
[2022-08-31] MEDS: DULoxetine HCL 60 MG CAPSULE.DR PO SCH (09:27)
[2022-08-31] MEDS: PRENATAL VIT-IRON-FOLIC ACID 1 EACH TABLET PO SCH (09:27)
[2022-08-31] MEDS: allopurinoL 100 MG TAB PO SCH (09:27)
[2022-08-31] MEDS: FOLIC ACID 1 MG TAB PO SCH (09:28)
[2022-08-31] MEDS: SYMBICORT 160-4.5 MCG INHALER INHALATION SCH (09:28)
[2022-08-31] MEDS: DOCUSATE 100 MG CAP PO SCH (09:28)
[2022-08-31] MEDS: CHOLECALCIFEROL 125 MCG (5000 IU) TABLET PO SCH (09:28)
[2022-08-31] MEDS: NALTREXONE HCL 50 MG TAB PO SCH (09:29)
[2022-08-31] MEDS: LORATADINE 10 MG TAB PO SCH (09:29)
[2022-08-31] MEDS: NON FORMULARY DRUG (Linaclotide [Linzess] 145 MCG Capsule) PO SCH (09:29)
[2022-08-31] MEDS: metFORMIN 500 MG TAB PO SCH (09:29)
--- NOTE | 2022-09-01 14:03 | P.DS ---
Providers Date of admission: 08/25/22 23:52 Expected date of discharge: 09/01/22 Attending physician: Antwon Tolliver MD Consults: 08/25/22 23:54 Consult Physician Routine Consulting Provider: Telma Zimmerman Consult Reason/Comments: For H & P for Medical Follow Up Do you want consulting provider notified?: Yes Primary care physician: [facility] Diagnosis(es) (1) Schizoaffective disorder, depressive type Status: Acute Priority: High (2) Cocaine use disorder Status: Chronic Priority: Medium (3) Methamphetamine use disorder, severe Status: Chronic Priority: Medium Hospital Course: Admission HPI: Initial psychiatric evaluation was completed by Dr Tolliver who wrote: Patient is a 42-year-old female who currently is living in an apartment alone, has 2 kids which live in foster care, returned the unemployed. She has a public guardian. The patient presented to the hospital yesterday after bringing brought in by police and EMS workers. Patient apparently was abusing drugs and also overdosed. According to ER report patient took 6 Vistaril's in a suicide attempt. Her urine drug screen was positive for amphetamines and cocaine. Patient earlier this morning was fairly nauseous and vomiting and was given Zofran which helped. Patient claims that now she feels "terrible" and was alexis rly irritable and concrete during the interview. She was fairly complaining of shakiness and feeling cold. She states that she "couldn't go home" and claims that she was recently on a dating site and had a bad experience which she was fairly guarded about. She claims that she has poor finances and no food in her house. She claims that she wanted to "end it" after the overdose. She claims that because nobody cares for me". She did claim that she is taking her medications at home. She states that she passed out after taking the medications and then called the ambulance. He were concerned. She claims that her sleep and appetite are poor. She denies any cigarette use or marijuana use but is apparently using cocaine. At this time she is denying any current suicidal or homicidal ideations. Denying any auditory or visual hallucinations currently. Patient states that she has a history of schizoaffective disorder. Patient was previously on several different psychiatric medications and was previously on Cymbalta, Lamictal, trazodone, Vistaril and naltrexone. Patient is now currently getting Aristada 882 mg IM from [facility] and last injection was given while in hospital on 08/07 andnext dose will be due on 09/04. She states that she has been hospitalized several times in [place] and also at [facility], most recently was discharged from the mental health unit in early Aug 2022. She claims that she follows up at [facility] with Dr. Zuiñga. She claims that she is had 3 suicide attempts where she tried to overdose. Hospital course: Upon admission to the unit patient was initially presenting as irritable and guarded. Patient was however directable and agreeable to commence treatment. Patient got along well with other patients on the unit and followed unit protocol. Patient was compliant with the medications and denied any side effects throughout hospital course. Patient was started on Cymbalta and was already on a regimen of Abilify Aristada. Patient spoke of her stressors and engaged in therapy both group and individual. Patient was also seen by medical team for history and physical exam. Throughout the course of the hospitalization patient gradually improved with regards to mood and sleep and became future oriented with improved insight and judgment. On the day of discharge patient denied any suicidal or homicidal ideations intent or plan denied any auditory or visual hallucinations. Patient endorsed wanting to live for her health and family The patient denied any access to guns or weapons. Patient denied any paranoia and did not endorse any delusions. Patient does have a significant history of substance abuse however was counseled on abstaining from all substances including alcohol and marijuana. Patient was offered however declined inpatient substance-abuse rehab. Patient was also counseled on the medications and need for regular compliance and was encouraged to follow-up with their outpatient appointment for mental health and also for primary care. Prior to discharge a family meeting will be arranged by social service worker to answer any questions and ensure safety upon discharge. Mental status exam: General Appearance: Patient appears to be stated age is alert, pleasant, and cooperative. Patient is in no acute distress and has fair hygiene and grooming Behavior: Patient is calmly seated without any agitated behavior. Speech: Patient's speech is fluent and nonpressured. Mood/Affect: Patient reports their mood is "much better", affect is congruent and euthymic. Suicidality/Homicidality: Patient denies having any suicidal or homicidal idea tion intent or plan. Perceptions: Patient denies any auditory or visual hallucinations. Though content/process: There is no evidence of any delusional thought content and thought process is linear and goal-directed. Patient is future oriented. Memory and concentration: AOX3, grossly intact for the purposes of this session. Can spell "WORLD" backwards correctly. Judgment and insight: Improved with guarded prognosis Impression: Schizoaffective disorder, depressive type cocaine use disorder methamphetamine use disorder Plan: -Continue with discharge today as patient has improved and stabilized psychiatrically and is not currently an imminent threat to herself and/or others. Patient will remain at chronically elevated risk for harm to self and/or others due to her impulsivity and polysubstance abuse. -Continue medications: Cymbalta 60 mg by mouth twice a day for depression ReVia 50 mg by mouth daily for cravings Melatonin 6 mg for insomnia. Continue regimen of Abilify Aristada 882 mg IM -Patient was counseled on the need for medication compliance and appropriate follow-up at mental health and also primary care for medical issues. Patient verbalized understanding and agreed. -Social work to arrange for and conduct family meeting to ensure safety upon discharge and answer any questions/concerns. Social work also to arrange for patients follow up appointments with [facility] for psychiatric care along with follow up with primary care provider. -Patient counseled on abstaining from recreational drugs and marijuana and alcohol. Was informed/educated on the adverse effects on their physical and mental health. Patient verbally agreed and understood. Patient was offered substance abuse treatment however declined at this time. -Patient was instructed to return to the hospital or seek immediate medical care if their psychiatric or medical symptoms do worsen or reoccur. -Psychoeducation and supportive therapy provided to patient. Risks and benefits of pharmacological treatment versus the risks and benefits of nontreatment weight and discussed. Informed consent discussion held. Common side effects of psychotropics discussed such as, but not limited to headache, GI disturbance, sexual dysfunction, movement disorders, sedation, and orthostatic hypotension. Life threatening and blackbox warnings of prescribed medications also discussed. Potential risks of operating a vehicle or heavy machinery discussed with patient at length. Advised on importance of compliance and a reliable and responsible manner. Patient advised to review FDA consumer labeling of all medications prior to taking. Patient verbalized understanding of potential risks, and agrees with current treatment plan. Patient advised to medically contact physician/emergency personnel if any acute changes in condition occur. Vital Signs Temp 97.2 F L 08/30/22 09:38 Pulse 77 08/30/22 09:38 Resp 16 08/30/22 09:38 BP 142/88 08/30/22 09:38 Pulse Ox 95 08/30/22 09:38 FiO2 Laboratory Results WBC 13.3 k/uL (3.8-10.6) H 08/26/22 10:12 RBC 4.68 m/uL (3.80-5.40) 08/26/22 10:12 Hgb 12.5 gm/dL (11.4-16.0) 08/26/22 10:12 Hct 38.9 % (34.0-46.0) 08/26/22 10:12 MCV 83.2 fL (80.0-100.0) 08/26/22 10:12 MCH 26.8 pg (25.0-35.0) 08/26/22 10:12 MCHC 32.2 g/dL (31.0-37.0) 08/26/22 10:12 RDW 14.5 % (11.5-15.5) 08/26/22 10:12 Plt Count 249 k/uL (150-450) 08/26/22 10:12 MPV 6.9 08/26/22 10:12 Neutrophils % 75 % 08/26/22 10:12 Lymphocytes % 15 % 08/26/22 10:12 Monocytes % 4 % 08/26/22 10:12 Eosinophils % 4 % 08/26/22 10:12 Basophils % 0 % 08/26/22 10:12 Neutrophils # 10.0 k/uL (1.3-7.7) H 08/26/22 10:12 Lymphocytes # 2.0 k/uL (1.0-4.8) 08/26/22 10:12 Monocytes # 0.6 k/uL (0-1.0) 08/26/22 10:12 Eosinophils # 0.6 k/uL (0-0.7) 08/26/22 10:12 Basophils # 0.1 k/uL (0-0.2) 08/26/22 10:12 Sodium 141 mmol/L (137-145) 08/26/22 10:12 Potassium 4.1 mmol/L (3.5-5.1) 08/26/22 10:12 Chloride 107 mmol/L (98-107) 08/26/22 10:12 Carbon Dioxide 28 mmol/L (22-30) 08/26/22 10:12 Anion Gap 6 mmol/L 08/26/22 10:12 BUN 15 mg/dL (7-17) 08/26/22 10:12 Creatinine 0.71 mg/dL (0.52-1.04) 08/26/22 10:12 Est GFR (CKD-EPI)AfAm >90 (>60 ml/min/1.73 sqM) 08/26/22 10:12 Est GFR (CKD-EPI)NonAf >90 (>60 ml/min/1.73 sqM) 08/26/22 10:12 Glucose 131 mg/dL (74-99) H 08/26/22 10:12 POC Glucose (mg/dL) 119 mg/dL (70-110) H 08/26/22 16:46 POC Glu [employer] ID 08/26/22 16:46 Plasma Lactic Acid [place] 1.3 mmol/L (0.7-2.0) 08/26/22 10:12 Calcium 8.6 mg/dL (8.4-10.2) 08/26/22 10:12 Total Bilirubin 0.3 mg/dL (0.2-1.3) 08/26/22 10:12 Conjugated Bilirubin 0.0 mg/dL (0.0-0.3) 08/26/22 06:40 Unconjugated Bilirubin 0.0 mg/dL (0.0-1.1) 08/26/22 06:40 Delta Bilirubin 0.2 mg/dL (0.0-0.2) 08/26/22 06:40 AST 22 U/L (14-36) 08/26/22 10:12 ALT 28 U/L (4-34) 08/26/22 10:12 Alkaline Phosphatase 105 U/L (38-126) 08/26/22 10:12 Troponin I <0.012 ng/mL (0.000-0.034) 08/27/22 04:03 Total Protein 7.2 g/dL (6.3-8.2) 08/26/22 10:12 Albumin 3.7 g/dL (3.5-5.0) 08/26/22 10:12 Triglycerides 79.80 mg/dL (0.00-149.00) 08/26/22 06:40 Cholesterol 161.00 mg/dL (0.00-200.00) 08/26/22 06:40 LDL Cholesterol, Calc 91.1 mg/dL (0.0-131.0) 08/26/22 06:40 VLDL Cholesterol, Calc 15.96 mg/dL (5.00-40.00) 08/26/22 06:40 HDL Cholesterol 53.90 mg/dL (40.00-60.00) 08/26/22 06:40 Cholesterol/HDL Ratio 2.99 Ratio 08/26/22 06:40 TSH 2.130 mIU/L (0.465-4.680) 08/26/22 06:40 Urine Color Light Yellow 08/26/22 01:43 Urine Appearance Cloudy (Clear) H 08/26/22 01:43 Urine pH 6.5 (5.0-8.0) 08/26/22 01:43 Ur Specific [place] 1.013 (1.001-1.035) 08/26/22 01:43 Urine Protein Negative (Negative) 08/26/22 01:43 Urine Glucose (UA) Negative (Negative) 08/26/22 01:43 Urine Ketones Negative (Negative) 08/26/22 01:43 Urine Blood Negative (Negative) 08/26/22 01:43 Urine Nitrite Negative (Negative) 08/26/22 01:43 Urine Bilirubin Negative (Negative) 08/26/22 01:43 Urine Urobilinogen <2.0 mg/dL (<2.0) 08/26/22 01:43 Ur Leukocyte Esterase Trace (Negative) H 08/26/22 01:43 Urine RBC <1 /hpf (0-5) 08/26/22 01:43 Urine WBC 5 /hpf (0-5) 08/26/22 01:43 Ur Squamous Epith Cells 4 /hpf (0-4) 08/26/22 01:43 Urine Bacteria Rare /hpf (None) H 08/26/22 01:43 Urine HCG, Qual Not Detected (Not Detectd) 08/26/22 01:43 Salicylates <1.0 mg/dL 08/26/22 10:12 Urine Opiates Screen Not Detected (NotDetected) 08/25/22 22:40 Ur Oxycodone Screen Not Detected (NotDetected) 08/25/22 22:40 Urine Methadone Screen Not Detected (NotDetected) 08/25/22 22:40 Ur Propoxyphene Screen Not Detected (NotDetected) 08/25/22 22:40 Acetaminophen <10.0 ug/mL 08/26/22 10:12 Ur Barbiturates Screen Not Detected (NotDetected) 08/25/22 22:40 U Tricyclic Antidepress Not Detected (NotDetected) 08/25/22 22:40 Ur Phencyclidine Scrn Not Detected (NotDetected) 08/25/22 22:40 Ur Amphetamines Screen Detected (NotDetected) H 08/25/22 22:40 U Methamphetamines Scrn Not Detected (NotDetected) 08/25/22 22:40 U Benzodiazepines Scrn Not Detected (NotDetected) 08/25/22 22:40 Urine Cocaine Screen Detected (NotDetected) H 08/25/22 22:40 U Marijuana (THC) Screen Not Detected (NotDetected) 08/25/22 22:40 Coronavirus (PCR) Not Detected (Not Detectd) 08/25/22 22:44 Allergies Allergy/AdvReac Type Severity Reaction Status Date / Time Iodinated Contrast Media Allergy Anaphylaxis Verified 08/26/22 01:29 [Iodinated Contrast Media - IV Dye] peanut Allergy Anaphylaxis Verified 08/26/22 01:29 Penicillins Allergy Anaphylaxis Verified 08/26/22 01:29 shellfish derived Allergy Anaphylaxis Verified 08/26/22 01:29 cephalexin monohydrate AdvReac Nausea & Verified 08/26/22 01:29 [From Keflex] Vomiting & Diarrhea lacosamide [From Vimpat] AdvReac Anaphylaxis Verified 08/26/22 01:29 trazodone AdvReac bp Verified 08/26/22 01:29 issues/dissiness--patient takes at home Patient Condition at Discharge: Stable Plan - Discharge Summary New Discharge Prescriptions: New DULoxetine HCL [Cymbalta] 60 mg PO BID 30 Days #60 cap Naltrexone HCl [Revia] 50 mg PO DAILY 30 Days #30 tab Melatonin 6 mg PO HS 30 Days #60 tab Continue Zonisamide [Zonegran] 300 mg PO HS allopurinoL [Zyloprim] 100 mg PO DAILY Montelukast [Singulair] 10 mg PO HS Omeprazole 20 mg PO DAILY Aspirin EC [Ecotrin Low Dose] 81 mg PO DAILY calcium polycarbophiL [Fibercon] 1,250 mg PO BID PRN PRN Reason: Constipation Loratadine [Claritin] 10 mg PO DAILY Docusate 250mg Cap 250 mg PO BID Cholecalciferol [Vitamin D3 (125 Mcg = 5000 Iu)] 125 mcg PO DAILY Glucerna Shake 1 can PO BID Folic Acid 1 mg PO DAILY guaiFENesin-DM 100-10MG/5ML [Robitussin DM] 10 ml PO Q6H PRN PRN Reason: cough/congestion Aripiprazole Lauroxil [Aristada] 882 mg IM Q28D 28 Days #1 Fenofibrate [Lofibra] 54 mg PO DAILY Albuterol Sulfate [Proair Hfa] 2 puff INHALATION RT-QID PRN PRN Reason: Shortness Of Breath metFORMIN HCL [Glucophage] 1,000 mg PO BID Linaclotide [Linzess] 145 mcg PO DAILY [id number] Acid [-U Capsule (formulary)] 1 cap PO DAILY Benztropine Mesylate [Cogentin] 1 mg PO BID PRN 30 Days #30 tab PRN Reason: eps Budesonide-Formot 160-4.5 Mcg [Symbicort 160-4.5 Mcg Inhaler] 2 puff INHALATION RT-BID each Discontinued DULoxetine HCL [Cymbalta] 60 mg PO DAILY 30 Days capsule. Naltrexone HCl [Revia] 50 mg PO DAILY Ibuprofen [Motrin] 600 mg PO Q6HR PRN #20 tab PRN Reason: For pain Acetaminophen Tab [Tylenol] 500 mg PO QID PRN PRN Reason: Pain Or Fever > 100.5 hydrOXYzine pamoate 50 mg PO TID 30 Days #90 cap Discharge Medication List Zonisamide [Zonegran] 300 mg PO HS 12/16/18 [History] Montelukast [Singulair] 10 mg PO HS 12/16/19 [History] Omeprazole 20 mg PO DAILY 12/16/19 [History] allopurinoL [Zyloprim] 100 mg PO DAILY 12/16/19 [History] Aspirin EC [Ecotrin Low Dose] 81 mg PO DAILY 04/12/20 [History] calcium polycarbophiL [Fibercon] 1,250 mg PO BID PRN 09/04/20 [History] Loratadine [Claritin] 10 mg PO DAILY 12/22/20 [History] Albuterol Sulfate [Proair Hfa] 2 puff INHALATION RT-QID PRN 12/12/21 [History] Cholecalciferol [Vitamin D3 (125 Mcg = 5000 Iu)] 125 mcg PO DAILY 12/12/21 [History] Docusate 250mg Cap 250 mg PO BID 12/12/21 [History] Fenofibrate [Lofibra] 54 mg PO DAILY 12/12/21 [History] Folic Acid 1 mg PO DAILY 12/12/21 [History] Glucerna Shake 1 can PO BID 12/12/21 [History] Linaclotide [Linzess] 145 mcg PO DAILY 12/12/21 [History] metFORMIN HCL [Glucophage] 1,000 mg PO BID 12/12/21 [History] Ysd-Qpbk-Gybke Acid [-U Capsule (formulary)] 1 cap PO DAILY 08/05/22 [History] guaiFENesin-DM 100-10MG/5ML [Robitussin DM] 10 ml PO Q6H PRN 08/05/22 [History] Aripiprazole Lauroxil [Aristada] 882 mg IM Q28D 28 Days #1 08/10/22 [Rx] Benztropine Mesylate [Cogentin] 1 mg PO BID PRN 30 Days #30 tab 08/10/22 [Rx] Budesonide-Formot 160-4.5 Mcg [Symbicort 160-4.5 Mcg Inhaler] 2 puff INHALATION RT-BID each 08/10/22 [Rx] DULoxetine HCL [Cymbalta] 60 mg PO BID 30 Days #60 cap 08/31/22 [Rx] Melatonin 6 mg PO HS 30 Days #60 tab 08/31/22 [Rx] Naltrexone HCl [Revia] 50 mg PO DAILY 30 Days #30 tab 08/31/22 [Rx] Follow up Appointment(s)/Referral(s): [facility] [Outside] - 09/02/22 10:00 am (2-1-23 at 10:00 with Valentín Adams 09-02-22 at 2:[address] Rao) [facility]Yu[facility] Christine [Primary Care Provider] - 1-2 days Patient Instructions/Handouts: Schizoaffective Disorder (GEN) Activity/Diet/Wound Care/Special Instructions: Avoid the use of street drugs and alcohol. Take all prescriptions as prescribed. When you are in need of refills on your medications, please contact your medical provider and/or outpatient psychiatrist to have this done. Please go to scheduled outpatient appointment for aftercare treatment. If symptoms return or become worse, call the crisis line at and/or go to the nearest emergency room for evaluation Discharge Disposition: HOME SELF-CARE
== END 2022-08-31 11:54 | disposition home or self-care (01) | DRG 885 ==
LOC: EC 21:02 → 3MHU 23:52
PROVIDERS: ADMIT Psychiatry & Neurology Psychiatry; ATTEND Psychiatry & Neurology Psychiatry
DX: F25.1 Schizoaffective disorder, depressive type (principal); K50.90 Crohn's disease, unspecified, without complications; D57.3 Sickle-cell trait; F14.10 Cocaine abuse, uncomplicated; F15.10 Other stimulant abuse, uncomplicated; F41.9 Anxiety disorder, unspecified; Z60.4 Social exclusion and rejection; I11.0 Hypertensive heart disease with heart failure; I50.9 Heart failure, unspecified; K74.60 Unspecified cirrhosis of liver; M10.9 Gout, unspecified; R07.9 Chest pain, unspecified; M41.9 Scoliosis, unspecified; G89.29 Other chronic pain; J45.909 Unspecified asthma, uncomplicated; M15.9 Polyosteoarthritis, unspecified; M79.7 Fibromyalgia; Z20.822 Contact with and (suspected) exposure to COVID-19; T50.902A Poisoning by unspecified drugs, medicaments and biological substances, intentional self-harm, initial encounter; Z79.51 Long term (current) use of inhaled steroids; Z79.82 Long term (current) use of aspirin; Z86.32 Personal history of gestational diabetes; Z90.721 Acquired absence of ovaries, unilateral; Z81.8 Family history of other mental and behavioral disorders; Z87.891 Personal history of nicotine dependence; Z91.041 Radiographic dye allergy status; Z91.010 Allergy to peanuts; Z88.0 Allergy status to penicillin; Z91.013 Allergy to seafood
CPT/HCPCS: 80053; 80061; 80143; 80179; 80306; 81001; 81025; 82075; 82248; 83605; 84443; 84484; 85025; 87635; 93005; 99285

== ENCOUNTER 2022-11-10 23:25 | Emergency (ER) | payer OTHER ==
--- NOTE | 2022-11-10 23:27 | ED ---
General Adult HPI <Whitley Ott - Last Filed: 11/10/22 23:26> - General Source: patient, RN notes reviewed, old records reviewed <Santana Pastor - Last Filed: 11/11/22 01:32> - General Stated complaint: Asthma, Hyperglycemia Time Seen by Provider: 11/10/22 23:26 - History of Present Illness Initial comments: 42-year-old female presents to the emergency department via EMS with chief complaint of asthma and hyperglycemia . (Whitley Ott) 42-year-old female history of asthma presents for evaluation of cough. Patient was seen at outside hospital, prescribed albuterol, prednisone. She was given steroids earlier today. She states that her cough is only somewhat improved. No significant dyspnea. She is requesting cough syrup. She also states that her blood sugar has been running high. Pain. No lower extremity pain or swelling. (Santana Pastor) - Related Data Home Medications Medication Instructions Recorded Confirmed Zonisamide [Zonegran] 300 mg PO HS 12/16/18 08/26/22 Montelukast [Singulair] 10 mg PO HS 12/16/19 08/26/22 Omeprazole 20 mg PO DAILY 12/16/19 08/26/22 allopurinoL [Zyloprim] 100 mg PO DAILY 12/16/19 08/26/22 Aspirin EC [Ecotrin Low Dose] 81 mg PO DAILY 04/12/20 08/26/22 calcium polycarbophiL [Fibercon] 1,250 mg PO BID PRN 09/04/20 08/26/22 Loratadine [Claritin] 10 mg PO DAILY 12/22/20 08/26/22 Albuterol Sulfate [Proair Hfa] 2 puff INHALATION RT-QID PRN 12/12/21 08/26/22 Cholecalciferol [Vitamin D3 (125 125 mcg PO DAILY 12/12/21 08/26/22 Mcg = 5000 Iu)] Docusate 250mg Cap 250 mg PO BID 12/12/21 08/26/22 Fenofibrate [Lofibra] 54 mg PO DAILY 12/12/21 08/26/22 Folic Acid 1 mg PO DAILY 12/12/21 08/26/22 Glucerna Shake 1 can PO BID 12/12/21 08/26/22 Linaclotide [Linzess] 145 mcg PO DAILY 12/12/21 08/26/22 metFORMIN HCL [Glucophage] 1,000 mg PO BID 12/12/21 08/26/22 Psc-Xyfd-Rljam Acid 1 cap PO DAILY 08/05/22 08/26/22 [-U Capsule (formulary)] guaiFENesin-DM 100-10MG/5ML 10 ml PO Q6H PRN 08/05/22 08/26/22 [Robitussin DM] Previous Rx's Medication Instructions Recorded Aripiprazole Lauroxil [Aristada] 882 mg IM Q28D 28 Days #1 08/10/22 Benztropine Mesylate [Cogentin] 1 mg PO BID PRN 30 Days #30 tab 08/10/22 Budesonide-Formot 160-4.5 Mcg 2 puff INHALATION RT-BID each 08/10/22 [Symbicort 160-4.5 Mcg Inhaler] DULoxetine HCL [Cymbalta] 60 mg PO BID 30 Days #60 cap 08/31/22 Melatonin 6 mg PO HS 30 Days #60 tab 08/31/22 Naltrexone HCl [Revia] 50 mg PO DAILY 30 Days #30 tab 08/31/22 Promethazine 6.25MG/5Ml [Phenergan 5 ml PO TID PRN #120 ml 11/11/22 Syrup] Allergies Allergy/AdvReac Type Severity Reaction Status Date / Time Iodinated Contrast Media Allergy Anaphylaxis Verified 11/10/22 23:38 [Iodinated Contrast Media - IV Dye] peanut Allergy Anaphylaxis Verified 11/10/22 23:38 Penicillins Allergy Anaphylaxis Verified 11/10/22 23:38 shellfish derived Allergy Anaphylaxis Verified 11/10/22 23:38 cephalexin monohydrate AdvReac Nausea & Verified 11/10/22 23:38 [From Keflex] Vomiting & Diarrhea lacosamide [From Vimpat] AdvReac Anaphylaxis Verified 11/10/22 23:38 trazodone AdvReac bp Verified 11/10/22 23:38 issues/dissiness--patient takes at home Review of Systems ROS Other: All systems not noted in ROS Statement are negative. <Whitley Ott - Last Filed: 11/10/22 23:26> ROS Other: All systems not noted in ROS Statement are negative. <Helmreich,Santana N - Last Filed: 11/11/22 01:32> ROS Statement: Those systems with pertinent positive or pertinent negative responses have been documented in the HPI. Past Medical History Past Medical History: Asthma, Heart Failure, COPD, Fibromyalgia, GERD/Reflux, GI Bleed, Hypertension, Liver Disease, Osteoarthritis (OA), Pneumonia, Seizure Disorder, Skin Disorder Additional Past Medical History / Comment(s): Bronchitis, gestational diabetes, seizures with last one 09/03/20, sickle cell trait, liver cirrhosis, anemia, chrons, IBS, ulcerative colitis, lowr GI bleed, hemorrhoids, constipation, psoriasis, migraines, chronic low back and cervical pain, scoliosis, arhtritis in multiple joints, gout bilateral feet, History of Any Multi-Drug Resistant Organisms: None Reported Past Surgical History: Cholecystectomy, Orthopedic Surgery Additional Past Surgical History / Comment(s): L oophorectomy d/t cyst, D&C, colonoscopy, L carpal tunnel release, Past Anesthesia/Blood Transfusion Reactions: Motion Sickness, Postoperative Nausea & Vomiting (PONV) Smoking Status: Former smoker - Past Family History Mother History Unknown: Yes Family Medical History: Cancer Additional Family Medical History / Comment(s): Mother had breast cancer and metnal illness She is living. Father Family Medical History: Cancer Additional Family Medical History / Comment(s): Father is . He had agent orange exposure. He had liver cancer, bowel to brain cancer. <Whitley Ott - Last Filed: 11/10/22 23:26> General Exam <Whitley Ott - Last Filed: 11/10/22 23:26> General appearance: alert, in no apparent distress Head exam: Present: atraumatic, normocephalic Eye exam: Present: normal appearance, PERRL ENT exam: Present: normal exam, normal oropharynx, mucous membranes moist Neck exam: Present: normal inspection. Absent: tenderness, meningismus Respiratory exam: Present: wheezes, decreased breath sounds, other (Bronchospastic cough). Absent: respiratory distress Cardiovascular Exam: Present: regular rate, normal rhythm GI/Abdominal exam: Present: soft. Absent: distended, tenderness, guarding Extremities exam: Present: normal inspection, normal capillary refill. Absent: pedal edema, calf tenderness Neurological exam: Present: alert, oriented X3, CN II-XII intact. Absent: motor sensory deficit Psychiatric exam: Present: normal affect, normal mood Skin exam: Present: warm, dry, intact. Absent: cyanosis, diaphoretic <Santana Pastor - Last Filed: 11/11/22 01:32> - General Exam Comments Initial Comments: Visual Physical Exam Vital signs reviewed General: Well-appearing, nontoxic, no acute distress. Head: Normocephalic, atraumatic Eyes: PERRLA, EOMI ENT: Airway patent Chest: Nonlabored breathing Skin: No visual rash, normal skin tone Neuro: Alert and oriented 3 Musculoskeletal: No gross abnormalities (Whitley Ott) Course Vital Signs 11/10/22 23:35 Temperature 98.3 F Pulse Rate 86 Respiratory 20 Rate Blood Pressure 167/68 O2 Sat by Pulse 97 Oximetry Medical Decision Making - Lab Data Result diagrams: 11/10/22 23:55 11/10/22 23:55 <Santana Pastor - Last Filed: 11/11/22 01:32> - Medical Decision Making Was pt. sent in by a medical professional or institution (, PA, DIESEL MECHANIC APPRENTICE, urgent care, hospital, or senior living...) When possible be specific @ -[No] Did you speak to anyone other than the patient for history (EMS, parent, family, police, friend...)? What history was obtained from this source @ -[No] Did you review nursing and triage notes (agree or disagree)? Why? @ -[I reviewed and agree with nursing and triage notes] Were old charts reviewed (outside hosp., previous admission, EMS record, old EKG, old radiological studies, urgent care reports/EKG's, senior living records)? Report findings @ -[No old charts were reviewed] Differential Diagnosis (chest pain, altered mental status, abdominal pain women, abdominal pain men, vaginal bleeding, weakness, fever, dyspnea, syncope, headache, dizziness, GI bleed, back pain, seizure, CVA, palpatations, mental health, musculoskeletal)? @ -Differential Dyspnea: Coronary syndrome, arrhythmia, tamponade, asthma, COPD, pulmonary embolism, pneumonia, pneumothorax, pulmonary effusion, anaphylaxis, diabetic ketoacidosis, flailed chest, pulmonary contusion, diaphragmatic rupture, anemia, neuromuscular, this is not meant to be an all-inclusive list. EKG interpreted by me (3pts min.). @ -[As above] X-rays interpreted by me (1pt min.). @ -Negative for focal pneumonia or pneumothorax. CT interpreted by me (1pt min.). @ -[None done] U/S interpreted by me (1pt. min.). @ -[None done] What testing was considered but not performed or refused? (CT, X-rays, U/S, labs)? Why? @ -[None] What meds were considered but not given or refused? Why? @ -[None] Did you discuss the management of the patient with other professionals (professionals i.e. , PA, DIESEL MECHANIC APPRENTICE, lab, RT, psych nurse, social services analyst, fisher diving, teacher, life science technical officer, case making machine operator)? Give summary @ -[No] Was smoking cessation discussed for >3mins.? @ -[No] Was critical care preformed (if so, how long)? @ -[No] Were there social determinants of health that impacted care today? How? (Homelessness, low income, unemployed, alcoholism, drug addiction, transportation, low edu. Level, literacy, decrease access to med. care, retirement, rehab)? @ -[No] Was there de-escalation of care discussed even if they declined (Discuss DNR or withdrawal of care, Hospice)? DNR status @ -[No] What co-morbidities impacted this encounter? (DM, HTN, Smoking, COPD, CAD, Cancer, CVA, ARF, Chemo, Hep., AIDS, mental health diagnosis, sleep apnea, morbid obesity)? @ -[Asthma] Was patient admitted / discharged? Hospital course, mention meds given and route, prescriptions, significant lab abnormalities, going to OR and other pertinent info. @ -[42-year-old female presenting for evaluation of cough. History of asthma. Patient is having an asthma exacerbation. She's been appropriately treated with albuterol and steroids. She is requesting promethazine cough syrup. Vital signs are stable. She does have lab abnormalities including leukocytosis which is chronic for this patient as she is following with hematology. She has a sick elevated blood sugar and will monitor this at home. No signs of DKA at this time. Patient prescribed promethazine as requested. Stable for discharge.] Undiagnosed new problem with uncertain prognosis? @ -[No] Drug Therapy requiring intensive monitoring for toxicity (Heparin, Nitro, Insulin, Cardizem)? @ -[No] Were any procedures done? @ -[No] Diagnosis/symptom? @ -[Asthma exacerbation, hyperglycemia] Acute, or Chronic, or Acute on Chronic? @ -[Acute] Uncomplicated (without systemic symptoms) or Complicated (systemic symptoms)? @ -[Complicated] Side effects of treatment? @ -[No] Exacerbation, Progression, or Severe Exacerbation? @ -[Yes asthma exacerbation] Poses a threat to life or bodily function? How? (Chest pain, [place], [place], pneumonia, PE, COPD, DKA, ARF, appy, cholecystitis, CVA, Diverticulitis, Homicidal, Suicidal, threat to staff... and all critical care pts) @ -[Yes, progressive dyspnea, hypoxia, respiratory failure. (Santana Pastor) - Lab Data Lab Results 11/10/22 11/10/22 11/10/22 Range/Units 23:53 23:55 23:55 WBC 16.7 H (3.8-10.6) k/uL RBC 4.41 (3.80-5.40) m/uL Hgb 12.0 (11.4-16.0) gm/dL Hct 38.0 (34.0-46.0) % MCV 86.3 (80.0-100.0) fL MCH 27.1 (25.0-35.0) pg MCHC 31.4 (31.0-37.0) g/dL RDW 15.3 (11.5-15.5) % Plt Count 232 (150-450) k/uL MPV 8.8 Neutrophils % 87 % Lymphocytes % 9 % Monocytes % 3 % Eosinophils % 1 % Basophils % 0 % Neutrophils # 14.5 H (1.3-7.7) k/uL Lymphocytes # 1.4 (1.0-4.8) k/uL Monocytes # 0.5 (0-1.0) k/uL Eosinophils # 0.2 (0-0.7) k/uL Basophils # 0.0 (0-0.2) k/uL Hypochromasia Slight Sodium 132 L (137-145) mmol/L Potassium (3.5-5.1) mmol/L Chloride 106 (98-107) mmol/L Carbon Dioxide 19 L (22-30) mmol/L Anion Gap 7 mmol/L BUN 19 H (7-17) mg/dL Creatinine 0.86 (0.52-1.04) mg/dL Est GFR (CKD-EPI)AfAm >90 (>60 ml/min/1.73 sqM) Est GFR (CKD-EPI)NonAf 84 (>60 ml/min/1.73 sqM) Glucose 407 H (74-99) mg/dL POC Glucose (mg/dL) 396 H (70-110) mg/dL POC Glu Education Analyst ID Konrad Choi Calcium 7.7 L (8.4-10.2) mg/dL Total Bilirubin 1.9 H (0.2-1.3) mg/dL AST 91 H (14-36) U/L ALT 32 (4-34) U/L Alkaline Phosphatase 68 (38-126) U/L Total Protein 9.0 H (6.3-8.2) g/dL Albumin 4.4 (3.5-5.0) g/dL Disposition <Whitley Ott - Last Filed: 11/10/22 23:26> Is patient prescribed a controlled substance at d/c from ED?: No Time of Disposition: 01:27 <Santana Pastor - Last Filed: 11/11/22 01:32> Clinical Impression: Leukocytosis, Asthma, Asthma with acute exacerbation, Hyperglycemia Disposition: HOME SELF-CARE Condition: Fair Instructions (If sedation given, give patient instructions): Asthma (ED) Prescriptions: Promethazine 6.25MG/5Ml [Phenergan Syrup] 5 ml PO TID PRN #120 ml PRN Reason: Cough Referrals: [facility] [Primary Care Provider] - 1-2 days
[2022-11-10 23:38] VITALS: BP 167/68; PULSE 86; RESP 20; TEMP 98.3
[2022-11-10 23:55] LABS: Glucose,Whole Blood 396 mg/dL (70-110)
[2022-11-11 00:08] LABS: Basophils % (A) 0 %; Eosinophils # (A) 0.2 k/uL (0-0.7); Eosinophils % (A) 1 %; Hypochromasia Slight; Lymphocytes # (A) 1.4 k/uL (1.0-4.8); Lymphocytes % (A) 9 %; MCH 27.1 pg (25.0-35.0); MCHC 31.4 g/dL (31.0-37.0); MCV 86.3 fL (80.0-100.0); Mean Platelet Volume 8.8; Monocytes # (A) 0.5 k/uL (0-1.0); Monocytes % (A) 3 %; Neutrophils # (A) 14.5 k/uL (1.3-7.7); Neutrophils % (A) 87 %; Platelet Count 232 k/uL (150-450); RBC 4.41 m/uL (3.80-5.40); RDW 15.3 % (11.5-15.5); WBC 16.7 k/uL (3.8-10.6)
[2022-11-11 00:26] LABS: ALT 32 U/L (4-34); AST 91 U/L (14-36); African American GFR (CKD) >90 (>60 ml/min/1.73 sqM); Albumin 4.4 g/dL (3.5-5.0); Alkaline Phosphatase 68 U/L (38-126); Anion Gap 7 mmol/L; Blood Urea Nitrogen 19 mg/dL (7-17); Calcium 7.7 mg/dL (8.4-10.2); Carbon Dioxide 19 mmol/L (22-30); Chloride 106 mmol/L (98-107); Glucose 407 mg/dL (74-99); Non-African American GFR(CKD) 84 (>60 ml/min/1.73 sqM); Sodium 132 mmol/L (137-145); Total Bilirubin 1.9 mg/dL (0.2-1.3)
--- NOTE | 2022-11-11 00:31 | XR ---
EXAM: XR Chest, 2 Views CLINICAL HISTORY: Asthma. TECHNIQUE: Frontal and lateral views of the chest. COMPARISON: August 05, 2022 FINDINGS: Lungs: Unremarkable. No infiltration, atelectasis or mass density. Pleural space: Unremarkable. No pneumothorax. No pleural fluid. Heart: Unremarkable. No cardiomegaly. Mediastinum: Unremarkable. Bones/joints: Unremarkable. No acute abnormalities. IMPRESSION: Negative chest x-rays.
[2022-11-11] MEDS ORDERED: PROMETHAZINE HCL 6.25 MG/5 ML CUP PO STA (01:25)
== END 2022-11-11 01:47 | disposition home or self-care (01) ==
LOC: EC 23:25
DX: D72.829 Elevated white blood cell count, unspecified (principal); J45.901 Unspecified asthma with (acute) exacerbation; R73.9 Hyperglycemia, unspecified; I11.0 Hypertensive heart disease with heart failure; I50.9 Heart failure, unspecified; K21.9 Gastro-esophageal reflux disease without esophagitis; M19.90 Unspecified osteoarthritis, unspecified site; Z79.51 Long term (current) use of inhaled steroids; Z79.82 Long term (current) use of aspirin; Z79.84 Long term (current) use of oral hypoglycemic drugs; Z79.899 Other long term (current) drug therapy; Z87.891 Personal history of nicotine dependence; Z88.0 Allergy status to penicillin; Z88.1 Allergy status to other antibiotic agents; Z88.8 Allergy status to other drugs, medicaments and biological substances; Z90.49 Acquired absence of other specified parts of digestive tract
CPT/HCPCS: 36415; 71046; 80053; 85025; 99284

== ENCOUNTER 2022-11-21 19:26 | Observation (INO) | payer OTHER ==
[2022-11-21] MEDS ORDERED: IPRATROPIUM-ALBUTEROL 3 ML NEB INHALATION STA ×2 (19:41→21:13)
[2022-11-21] MEDS ORDERED: methylPREDNISolone SOD SUCCI 125 MG/2 ML VIAL IV STA (19:41)
--- NOTE | 2022-11-21 19:56 | ED ---
SOB HPI - General Chief Complaint: Shortness of Breath Stated Complaint: Difficulty Breathing Time Seen by Provider: 11/21/22 19:37 Source: patient, EMS Mode of arrival: EMS Limitations: no limitations - History of Present Illness Initial Comments: Patient is a 42-year-old female presenting with chief complaint of shortness of breath. Patient states that she has had a cough and wheezing for the last 2 weeks. Patient was seen in our ER on 11/10 for the same complaint, she had previously been treated with albuterol and prednisone, at that time she was prescribed promethazine cough syrup. She states that she has been trying to follow-up with [facility]'s clinic but has been unable to get an appointment. She does admit to some chest discomfort. No fevers or chills. No nausea, vomiting, abdominal pain, dizziness. - Related Data Home Medications Medication Instructions Recorded Confirmed Zonisamide [Zonegran] 300 mg PO HS 12/16/18 11/21/22 Montelukast [Singulair] 10 mg PO HS 12/16/19 11/21/22 Omeprazole 20 mg PO DAILY 12/16/19 11/21/22 allopurinoL [Zyloprim] 100 mg PO DAILY 12/16/19 11/21/22 Aspirin EC [Ecotrin Low Dose] 81 mg PO DAILY 04/12/20 11/21/22 calcium polycarbophiL [Fibercon] 1,250 mg PO BID PRN 09/04/20 11/21/22 Loratadine [Claritin] 10 mg PO DAILY 12/22/20 11/21/22 Albuterol Sulfate [Proair Hfa] 2 puff INHALATION RT-QID PRN 12/12/21 11/21/22 Cholecalciferol [Vitamin D3 (125 125 mcg PO DAILY 12/12/21 11/21/22 Mcg = 5000 Iu)] Docusate 250mg Cap 250 mg PO BID 12/12/21 11/21/22 Fenofibrate [Lofibra] 54 mg PO DAILY 12/12/21 11/21/22 Folic Acid 1 mg PO DAILY 12/12/21 11/21/22 Linaclotide [Linzess] 145 mcg PO DAILY 12/12/21 11/21/22 metFORMIN HCL [Glucophage] 1,000 mg PO BID 12/12/21 11/21/22 Gwo-Uexd-Dolmn Acid 1 cap PO DAILY 08/05/22 11/21/22 [-U Capsule (formulary)] guaiFENesin-DM 100-10MG/5ML 10 ml PO Q6H PRN 08/05/22 11/21/22 [Robitussin DM] Aripiprazole Lauroxil [Aristada] 882 mg IM Q28D 11/21/22 11/21/22 Baclofen [Lioresal] 10 mg PO HS PRN 11/21/22 11/21/22 Bismuth Subsalicylate [Kaopectate] 524 mg PO Q6H PRN 11/21/22 11/21/22 Budesonide/Formoterol Fumarate 2 puff INHALATION RT-BID 11/21/22 11/21/22 [Symbicort 80-4.5 Mcg Inhaler] FLUoxetine HCL [PROzac] 20 mg PO DAILY 11/21/22 11/21/22 Fluticasone Nasal Hancock [Flonase 1 spray EA NOSTRIL DAILY 11/21/22 11/21/22 Nasal Hancock] Fluticasone Propionate 220 Mcg 2 puff INHALATION RT-BID 11/21/22 11/21/22 [Flovent 220 Mcg Inhaler] Furosemide [Lasix] 20 mg PO DAILY 11/21/22 11/21/22 Ibuprofen [Motrin] 400 mg PO BID PRN 11/21/22 11/21/22 Losartan Potassium 100 mg PO DAILY 11/21/22 11/21/22 Nystatin 100,000 Unit/gm Powd 1 applic TOPICAL BID PRN 11/21/22 11/21/22 [Mycostatin Powder] Nystatin 100,000Unit/gm Cream 1 applic TOPICAL BID PRN 11/21/22 11/21/22 [Mycostatin Cream] polyethylene glycoL 3350 [Miralax] 17 gm PO DAILY PRN 11/21/22 11/21/22 Previous Rx's Medication Instructions Recorded Benztropine Mesylate [Cogentin] 1 mg PO BID PRN 30 Days #30 tab 08/10/22 Naltrexone HCl [Revia] 50 mg PO DAILY 30 Days #30 tab 08/31/22 Promethazine 6.25MG/5Ml [Phenergan 5 ml PO TID PRN #120 ml 11/11/22 Syrup] Doxycycline [Vibramycin] 100 mg PO BID #8 cap 11/22/22 predniSONE [Deltasone] 40 mg PO DAILY #8 tab 11/22/22 Allergies Allergy/AdvReac Type Severity Reaction Status Date / Time Iodinated Contrast Media Allergy Anaphylaxis Verified 11/21/22 21:23 [Iodinated Contrast Media - IV Dye] peanut Allergy Anaphylaxis Verified 11/21/22 21:23 Penicillins Allergy Anaphylaxis Verified 11/21/22 21:23 shellfish derived Allergy Anaphylaxis Verified 11/21/22 21:23 cephalexin monohydrate AdvReac Nausea & Verified 11/21/22 21:23 [From Keflex] Vomiting & Diarrhea lacosamide [From Vimpat] AdvReac Anaphylaxis Verified 11/21/22 21:23 trazodone AdvReac bp Verified 11/21/22 21:23 issues/dissiness--patient takes at home Review of Systems ROS Statement: Those systems with pertinent positive or pertinent negative responses have been documented in the HPI. ROS Other: All systems not noted in ROS Statement are negative. Past Medical History Past Medical History: Asthma, Heart Failure, COPD, Fibromyalgia, GERD/Reflux, GI Bleed, Hypertension, Liver Disease, Osteoarthritis (OA), Pneumonia, Seizure Disorder, Skin Disorder Additional Past Medical History / Comment(s): Bronchitis, gestational diabetes, seizures with last one 09/03/20, sickle cell trait, liver cirrhosis, anemia, chrons, IBS, ulcerative colitis, lowr GI bleed, hemorrhoids, constipation, psoriasis, migraines, chronic low back and cervical pain, scoliosis, arhtritis in multiple joints, gout bilateral feet, History of Any Multi-Drug Resistant Organisms: None Reported Past Surgical History: Cholecystectomy, Orthopedic Surgery Additional Past Surgical History / Comment(s): L oophorectomy d/t cyst, D&C, colonoscopy, L carpal tunnel release, Past Anesthesia/Blood Transfusion Reactions: Motion Sickness, Postoperative Nausea & Vomiting (PONV) Past Psychological History: Anxiety, Bipolar, Depression, Schizophrenia Smoking Status: Former smoker Past Alcohol Use History: None Reported Past Drug Use History: Cocaine, Marijuana - Past Family History Mother History Unknown: Yes Family Medical History: Cancer Additional Family Medical History / Comment(s): Mother had breast cancer and metnal illness She is living. Father Family Medical History: Cancer Additional Family Medical History / Comment(s): Father is . He had agent orange exposure. He had liver cancer, bowel to brain cancer. General Exam Limitations: no limitations General appearance: alert, in no apparent distress Head exam: Present: atraumatic, normocephalic, normal inspection Eye exam: Present: normal appearance, EOMI. Absent: periorbital swelling Neck exam: Present: normal inspection, full ROM Respiratory exam: Present: wheezes, rales. Absent: respiratory distress Cardiovascular Exam: Present: regular rate, normal rhythm, normal heart sounds. Absent: systolic murmur, diastolic murmur, rubs, gallop, clicks Neurological exam: Present: alert, oriented X3, CN II-XII intact Psychiatric exam: Present: normal affect, normal mood Skin exam: Present: warm, dry, intact, normal color. Absent: rash Course Vital Signs 11/21/22 11/21/22 11/21/22 19:29 19:34 20:53 Temperature 98.8 F Pulse Rate 77 78 80 Respiratory 18 20 Rate Blood Pressure 140/71 153/80 O2 Sat by Pulse 96 96 Oximetry 11/21/22 11/21/22 11/21/22 21:02 21:26 21:36 Temperature Pulse Rate 81 73 74 Respiratory Rate Blood Pressure O2 Sat by Pulse Oximetry 11/21/22 23:37 Temperature Pulse Rate 76 Respiratory 20 Rate Blood Pressure 149/72 O2 Sat by Pulse 95 Oximetry Medical Decision Making - Medical Decision Making Was pt. sent in by a medical professional or institution (CLIF Ramirez, CRANE HOIST OR LIFT OPERATOR, urgent care, hospital, or [place] health care facility...) When possible be specific @ -No Did you speak to anyone other than the patient for history (EMS, parent, family, police, friend...)? What history was obtained from this source @ -No Did you review nursing and triage notes (agree or disagree)? Why? @ -I reviewed and agree with nursing and triage notes Were old charts reviewed (outside hosp., previous admission, EMS record, old EKG, old radiological studies, urgent care reports/EKG's, [place] health care facility records)? Report findings @ -No old charts were reviewed Differential Diagnosis (chest pain, altered mental status, abdominal pain women, abdominal pain men, vaginal bleeding, weakness, fever, dyspnea, syncope, headache, dizziness, GI bleed, back pain, seizure, CVA, palpatations, mental health, musculoskeletal)? @ -MDM Differential Dyspnea: Coronary syndrome, arrhythmia, tamponade, asthma, COPD, pulmonary embolism, pneumonia, pneumothorax, pulmonary effusion, anaphylaxis, diabetic ketoacidosis, flailed chest, pulmonary contusion, diaphragmatic rupture, anemia, neuromuscular this is not meant to be an all-inclusive list. EKG interpreted by me (3pts min.). @ -As above X-rays interpreted by me (1pt min.). @ -Chest x-ray shows no acute process CT interpreted by me (1pt min.). @ -None done U/S interpreted by me (1pt. min.). @ -None done What testing was considered but not performed or refused? (CT, X-rays, U/S, labs)? Why? @ -None What meds were considered but not given or refused? Why? @ -None Did you discuss the management of the patient with other professionals (professionals i.e. , PA, CRANE HOIST OR LIFT OPERATOR, lab, RT, psych nurse, social media developer, corporate safety manager, teacher, cavalry officer, family preservation caseworker)? Give summary @ -Discussed with admitting physician Dr. Stone Was smoking cessation discussed for >3mins.? @ -No Was critical care preformed (if so, how long)? @ -No Were there social determinants of health that impacted care today? How? (Homelessness, low income, unemployed, alcoholism, drug addiction, transportation, low edu. Level, literacy, decrease access to med. care, intermediate, rehab)? @ -No Was there de-escalation of care discussed even if they declined (Discuss DNR or withdrawal of care, Hospice)? DNR status @ -No What co-morbidities impacted this encounter? (DM, HTN, Smoking, COPD, CAD, Cancer, CVA, ARF, Chemo, Hep., AIDS, mental health diagnosis, sleep apnea, morbid obesity)? @ -Asthma Was patient admitted / discharged? Hospital course, mention meds given and r oute, prescriptions, significant lab abnormalities, going to OR and other pertinent info. @ -Admitted. Patient is a 42-year-old female presenting with chief complaint of worsening dyspnea and cough. On physical examination diffuse expiratory and expiratory wheezes are noted. Lab work shows WBC 19, this appears chronic for the patient. Lactic acid 3.1. Negative troponin and BNP. Negative for influenza, RSV, Covid. Chest x-ray shows no acute process. After 2 DuoNeb baldemar tments and 125 mg of Solu-Medrol patient was continuing to have wheezing. I spoke with hospitalist Dr. Funk who accepted admission for observation for asthma exacerbation. Patient is agreeable with this plan. I discussed this case with my attending Dr. Love. Undiagnosed new problem with uncertain prognosis? @ -No Drug Therapy requiring intensive monitoring for toxicity (Heparin, Nitro, Insulin, Cardizem)? @ -No Were any procedures done? @ -No Diagnosis/symptom? @ -Asthma exacerbation Acute, or Chronic, or Acute on Chronic? @ -Acute on chronic Uncomplicated (without systemic symptoms) or Complicated (systemic symptoms)? @ -Complicated Side effects of treatment? @ -No Exacerbation, Progression, or Severe Exacerbation? @ -exacerbation Poses a threat to life or bodily function? How? (Chest pain, [place], [place], pneumonia, PE, COPD, DKA, ARF, appy, cholecystitis, CVA, Diverticulitis, Homicidal, Suicidal, threat to staff... and all critical care pts) @ -No - Lab Data Result diagrams: 11/21/22 20:04 11/21/22 20:04 Lab Results 11/21/22 11/21/22 11/21/22 Range/Units 20:04 20:04 20:04 WBC 19.0 H (3.8-10.6) k/uL RBC 4.73 (3.80-5.40) m/uL Hgb 12.9 (11.4-16.0) gm/dL Hct 41.1 (34.0-46.0) % MCV 87.0 (80.0-100.0) fL MCH 27.2 (25.0-35.0) pg MCHC 31.3 (31.0-37.0) g/dL RDW 15.5 (11.5-15.5) % Plt Count 234 (150-450) k/uL MPV 7.5 Neutrophils % 71 % Lymphocytes % 21 % Monocytes % 5 % Eosinophils % 1 % Basophils % 0 % Neutrophils # 13.5 H (1.3-7.7) k/uL Lymphocytes # 4.1 (1.0-4.8) k/uL Monocytes # 1.0 (0-1.0) k/uL Eosinophils # 0.2 (0-0.7) k/uL Basophils # 0.1 (0-0.2) k/uL PT 9.5 (9.0-12.0) sec INR 0.9 (<1.2) APTT 21.6 L (22.0-30.0) sec Sodium 136 L (137-145) mmol/L Potassium 4.6 (3.5-5.1) mmol/L Chloride 100 (98-107) mmol/L Carbon Dioxide 28 (22-30) mmol/L Anion Gap 8 mmol/L BUN 18 H (7-17) mg/dL Creatinine 0.77 (0.52-1.04) mg/dL Est GFR (CKD-EPI)AfAm >90 (>60 ml/min/1.73 sqM) Est GFR (CKD-EPI)NonAf >90 (>60 ml/min/1.73 sqM) Glucose 222 H (74-99) mg/dL Lactic Ac Sepsis Rflx Plasma Lactic Acid Keon (0.7-2.0) mmol/L Calcium 8.8 (8.4-10.2) mg/dL Magnesium 1.9 (1.6-2.3) mg/dL Total Bilirubin 0.3 (0.2-1.3) mg/dL AST 29 (14-36) U/L ALT 42 H (4-34) U/L Alkaline Phosphatase 66 (38-126) U/L Troponin I (0.000-0.034) ng/mL NT-Pro-B Natriuret Pep pg/mL Total Protein 6.5 (6.3-8.2) g/dL Albumin 3.5 (3.5-5.0) g/dL Urine Color Urine Appearance (Clear) Urine pH (5.0-8.0) Ur Specific Tucker (1.001-1.035) Urine Protein (Negative) Urine Glucose (UA) (Negative) Urine Ketones (Negative) Urine Blood (Negative) Urine Nitrite (Negative) Urine Bilirubin (Negative) Urine Urobilinogen (<2.0) mg/dL Ur Leukocyte Esterase (Negative) Urine HCG, Qual (Not Detectd) Influenza Type A (PCR) (Not Detectd) Influenza Type B (PCR) (Not Detectd) RSV (PCR) (Not Detectd) SARS-CoV-2 (PCR) (Not Detectd) 04/22/23 04/22/23 04/22/23 Range/Units 20:04 20:04 20:04 WBC (3.8-10.6) k/uL RBC (3.80-5.40) m/uL Hgb (11.4-16.0) gm/dL Hct (34.0-46.0) % MCV (80.0-100.0) fL MCH (25.0-35.0) pg MCHC (31.0-37.0) g/dL RDW (11.5-15.5) % Plt Count (150-450) k/uL MPV Neutrophils % % Lymphocytes % % Monocytes % % Eosinophils % % Basophils % % Neutrophils # (1.3-7.7) k/uL Lymphocytes # (1.0-4.8) k/uL Monocytes # (0-1.0) k/uL Eosinophils # (0-0.7) k/uL Basophils # (0-0.2) k/uL PT (9.0-12.0) sec INR (<1.2) APTT (22.0-30.0) sec Sodium (137-145) mmol/L Potassium (3.5-5.1) mmol/L Chloride (98-107) mmol/L Carbon Dioxide (22-30) mmol/L Anion Gap mmol/L BUN (7-17) mg/dL Creatinine (0.52-1.04) mg/dL Est GFR (CKD-EPI)AfAm (>60 ml/min/1.73 sqM) Est GFR (CKD-EPI)NonAf (>60 ml/min/1.73 sqM) Glucose (74-99) mg/dL Lactic Ac Sepsis Rflx Plasma Lactic Acid Keon 3.1 H* (0.7-2.0) mmol/L Calcium (8.4-10.2) mg/dL Magnesium (1.6-2.3) mg/dL Total Bilirubin (0.2-1.3) mg/dL AST (14-36) U/L ALT (4-34) U/L Alkaline Phosphatase (38-126) U/L Troponin I <0.012 (0.000-0.034) ng/mL NT-Pro-B Natriuret Pep <11 pg/mL Total Protein (6.3-8.2) g/dL Albumin (3.5-5.0) g/dL Urine Color Urine Appearance (Clear) Urine pH (5.0-8.0) Ur Specific Tucker (1.001-1.035) Urine Protein (Negative) Urine Glucose (UA) (Negative) Urine Ketones (Negative) Urine Blood (Negative) Urine Nitrite (Negative) Urine Bilirubin (Negative) Urine Urobilinogen (<2.0) mg/dL Ur Leukocyte Esterase (Negative) Urine HCG, Qual (Not Detectd) Influenza Type A (PCR) (Not Detectd) Influenza Type B (PCR) (Not Detectd) RSV (PCR) (Not Detectd) SARS-CoV-2 (PCR) (Not Detectd) 11/21/22 11/21/22 11/21/22 Range/Units 21:00 21:52 21:52 WBC (3.8-10.6) k/uL RBC (3.80-5.40) m/uL Hgb (11.4-16.0) gm/dL Hct (34.0-46.0) % MCV (80.0-100.0) fL MCH (25.0-35.0) pg MCHC (31.0-37.0) g/dL RDW (11.5-15.5) % Plt Count (150-450) k/uL MPV Neutrophils % % Lymphocytes % % Monocytes % % Eosinophils % % Basophils % % Neutrophils # (1.3-7.7) k/uL Lymphocytes # (1.0-4.8) k/uL Monocytes # (0-1.0) k/uL Eosinophils # (0-0.7) k/uL Basophils # (0-0.2) k/uL PT (9.0-12.0) sec INR (<1.2) APTT (22.0-30.0) sec Sodium (137-145) mmol/L Potassium (3.5-5.1) mmol/L Chloride (98-107) mmol/L Carbon Dioxide (22-30) mmol/L Anion Gap mmol/L BUN (7-17) mg/dL Creatinine (0.52-1.04) mg/dL Est GFR (CKD-EPI)AfAm (>60 ml/min/1.73 sqM) Est GFR (CKD-EPI)NonAf (>60 ml/min/1.73 sqM) Glucose (74-99) mg/dL Lactic Ac Sepsis Rflx Y Plasma Lactic Acid Keon (0.7-2.0) mmol/L Calcium (8.4-10.2) mg/dL Magnesium (1.6-2.3) mg/dL Total Bilirubin (0.2-1.3) mg/dL AST (14-36) U/L ALT (4-34) U/L Alkaline Phosphatase (38-126) U/L Troponin I (0.000-0.034) ng/mL NT-Pro-B Natriuret Pep pg/mL Total Protein (6.3-8.2) g/dL Albumin (3.5-5.0) g/dL Urine Color Light Yellow Urine Appearance Clear (Clear) Urine pH 6.5 (5.0-8.0) Ur Specific Tucker 1.012 (1.001-1.035) Urine Protein Negative (Negative) Urine Glucose (UA) Negative (Negative) Urine Ketones Negative (Negative) Urine Blood Negative (Negative) Urine Nitrite Negative (Negative) Urine Bilirubin Negative (Negative) Urine Urobilinogen <2.0 (<2.0) mg/dL Ur Leukocyte Esterase Negative (Negative) Urine HCG, Qual Not Detected (Not Detectd) Influenza Type A (PCR) (Not Detectd) Influenza Type B (PCR) (Not Detectd) RSV (PCR) (Not Detectd) SARS-CoV-2 (PCR) (Not Detectd) 11/21/22 Range/Units 21:58 WBC (3.8-10.6) k/uL RBC (3.80-5.40) m/uL Hgb (11.4-16.0) gm/dL Hct (34.0-46.0) % MCV (80.0-100.0) fL MCH (25.0-35.0) pg MCHC (31.0-37.0) g/dL RDW (11.5-15.5) % Plt Count (150-450) k/uL MPV Neutrophils % % Lymphocytes % % Monocytes % % Eosinophils % % Basophils % % Neutrophils # (1.3-7.7) k/uL Lymphocytes # (1.0-4.8) k/uL Monocytes # (0-1.0) k/uL Eosinophils # (0-0.7) k/uL Basophils # (0-0.2) k/uL PT (9.0-12.0) sec INR (<1.2) APTT (22.0-30.0) sec Sodium (137-145) mmol/L Potassium (3.5-5.1) mmol/L Chloride (98-107) mmol/L Carbon Dioxide (22-30) mmol/L Anion Gap mmol/L BUN (7-17) mg/dL Creatinine (0.52-1.04) mg/dL Est GFR (CKD-EPI)AfAm (>60 ml/min/1.73 sqM) Est GFR (CKD-EPI)NonAf (>60 ml/min/1.73 sqM) Glucose (74-99) mg/dL Lactic Ac Sepsis Rflx Plasma Lactic Acid Keon (0.7-2.0) mmol/L Calcium (8.4-10.2) mg/dL Magnesium (1.6-2.3) mg/dL Total Bilirubin (0.2-1.3) mg/dL AST (14-36) U/L ALT (4-34) U/L Alkaline Phosphatase (38-126) U/L Troponin I (0.000-0.034) ng/mL NT-Pro-B Natriuret Pep pg/mL Total Protein (6.3-8.2) g/dL Albumin (3.5-5.0) g/dL Urine Color Urine Appearance (Clear) Urine pH (5.0-8.0) Ur Specific Tucker (1.001-1.035) Urine Protein (Negative) Urine Glucose (UA) (Negative) Urine Ketones (Negative) Urine Blood (Negative) Urine Nitrite (Negative) Urine Bilirubin (Negative) Urine Urobilinogen (<2.0) mg/dL Ur Leukocyte Esterase (Negative) Urine HCG, Qual (Not Detectd) Influenza Type A (PCR) Not Detected (Not Detectd) Influenza Type B (PCR) Not Detected (Not Detectd) RSV (PCR) Not Detected (Not Detectd) SARS-CoV-2 (PCR) Not Detected (Not Detectd) - EKG Data -: EKG Interpreted by Me EKG Comments: Sinus rhythm ventricular rate 70. MN interval 147. QRS 154. QT 409. QTc 429. No acute changes compared to previous EKG. Disposition Clinical Impression: Asthma exacerbation Disposition: ADMITTED IP TO THIS HOSP Condition: Good Time of Disposition: 23:36
[2022-11-21 20:29] LABS: Basophils # (A) 0.1 k/uL (0-0.2); Basophils % (A) 0 %; Eosinophils # (A) 0.2 k/uL (0-0.7); Eosinophils % (A) 1 %; HCT 41.1 % (34.0-46.0); HGB 12.9 gm/dL (11.4-16.0); Lymphocytes # (A) 4.1 k/uL (1.0-4.8); Lymphocytes % (A) 21 %; MCH 27.2 pg (25.0-35.0); MCHC 31.3 g/dL (31.0-37.0); Mean Platelet Volume 7.5; Monocytes % (A) 5 %; Neutrophils # (A) 13.5 k/uL (1.3-7.7); Neutrophils % (A) 71 %; Platelet Count 234 k/uL (150-450); RBC 4.73 m/uL (3.80-5.40); RDW 15.5 % (11.5-15.5)
[2022-11-21 20:38] LABS: ALT 42 U/L (4-34); AST 29 U/L (14-36); African American GFR (CKD) >90 (>60 ml/min/1.73 sqM); Albumin 3.5 g/dL (3.5-5.0); Alkaline Phosphatase 66 U/L (38-126); Anion Gap 8 mmol/L; Blood Urea Nitrogen 18 mg/dL (7-17); Calcium 8.8 mg/dL (8.4-10.2); Carbon Dioxide 28 mmol/L (22-30); Chloride 100 mmol/L (98-107); Glucose 222 mg/dL (74-99); Magnesium 1.9 mg/dL (1.6-2.3); Non-African American GFR(CKD) >90 (>60 ml/min/1.73 sqM); Potassium 4.6 mmol/L (3.5-5.1); Sodium 136 mmol/L (137-145); Total Bilirubin 0.3 mg/dL (0.2-1.3); Total Protein 6.5 g/dL (6.3-8.2)
[2022-11-21 20:44] LABS: INR 0.9 (<1.2); Partial Thromboplastin Time 21.6 sec (22.0-30.0); Prothrombin Time 9.5 sec (9.0-12.0)
--- NOTE | 2022-11-21 20:57 | XR ---
EXAMINATION TYPE: XR chest 2V DATE OF EXAM: 11/21/2022 8:46 PM COMPARISON: Chest x-ray 11/10/2022 TECHNIQUE: XR chest 2V . CLINICAL INDICATION:Female, 42 years old with history of difficulty breathing; FINDINGS: Lungs/Pleura: There is no evidence of pleural effusion, focal consolidation, or pneumothorax. Pulmonary vascularity: Unremarkable. Heart/mediastinum: Cardiomediastinal silhouette is unremarkable. Musculoskeletal: Multiple level degenerative disc disease changes seen throughout the spine. No acute osseous abnormalities. IMPRESSION: No acute cardiopulmonary disease/process.
[2022-11-21 22:08] LABS: Appearance,Urine Clear (Clear); Bilirubin,Urine Negative (Negative); Blood,Urine Negative (Negative); Color,Urine Light Yellow; Glucose,Urine (UA) Negative (Negative); Ketones,Urine Negative (Negative); Leukocyte Esterase,Urine Negative (Negative); Nitrite,Urine Negative (Negative); PH, Urine 6.5 (5.0-8.0); Protein,Urine Negative (Negative); Specific Gravity,Urine 1.012 (1.001-1.035); Urobilinogen,Urine <2.0 mg/dL (<2.0)
[2022-11-21] MEDS ORDERED: MAGNESIUM SULFATE-D5W PMX 1 GM in DEXTROSE/WATER 1 100ML.BAG IVPB STA (23:10)
[2022-11-21] MEDS ORDERED: IPRATROPIUM-ALBUTEROL 3 ML NEB INHALATION PRN (23:33)
[2022-11-21] MEDS ORDERED: NALOXONE 0.4 MG/ML 1 ML VIAL IVP PRN (23:33)
--- NOTE | 2022-11-22 01:31 | P.HPIM ---
History of Present Illness H&P Date: 11/22/22 Chief Complaint: shortness of breath 42 year old female with mild persistent asthma , seizure patient coming in with 2 week history of worsening shortness of breath , wheez ing , and dry cough. denies fever, chills. nausea or vomiting , denies chest pain . she does report some congestion , runny nose, and people coughing around her, and smoking. she herself ,denies any smoking. she was unable to get into her doctors office , and has been using her home inhalers with no benefit she denies any recent travel or hospital stay , she came to the ED 10 days ago and was given coughing medications she denies any smoking illicit drugs or alcohol Review of Systems Pertinent positives as noted in HPI. All other systems were reviewed and are negative Past Medical History Past Medical History: Asthma, Heart Failure, COPD, Fibromyalgia, GERD/Reflux, GI Bleed, Hypertension, Liver Disease, Osteoarthritis (OA), Pneumonia, Seizure Disorder, Skin Disorder Additional Past Medical History / Comment(s): Bronchitis, gestational diabetes, seizures with last one 09/03/20, sickle cell trait, liver cirrhosis, anemia, chrons, IBS, ulcerative colitis, lowr GI bleed, hemorrhoids, constipation, psoriasis, migraines, chronic low back and cervical pain, scoliosis, arhtritis in multiple joints, gout bilateral feet, History of Any Multi-Drug Resistant Organisms: None Reported Past Surgical History: Cholecystectomy, Orthopedic Surgery Additional Past Surgical History / Comment(s): L oophorectomy d/t cyst, D&C, colonoscopy, L carpal tunnel release Past Anesthesia/Blood Transfusion Reactions: Motion Sickness, Postoperative Nausea & Vomiting (PONV) Past Psychological History: Anxiety, Bipolar, Depression, Schizophrenia Additional Psychological History / Comment(s): Personality Disorder. She is seen at [facility]. Pt has a learning disability and can read some. She has a [facility] public legal guardian. Smoking Status: Former smoker Past Alcohol Use History: Abuse, Daily Additional Past Alcohol Use History / Comment(s): Pt started smoking in 1994 and quit in 2006. Past Drug Use History: Cocaine, Marijuana Additional Drug Use History / Comment(s): Pt states she has used crack cocaine, marijuana, heroin and crystal meth. - Past Family History Mother History Unknown: Yes Family Medical History: Cancer Additional Family Medical History / Comment(s): Mother had breast cancer and metnal illness She is living. Father Family Medical History: Cancer Additional Family Medical History / Comment(s): Father is . He had agent orange exposure. He had liver cancer, bowel to brain cancer. Medications and Allergies Home Medications Medication Instructions Recorded Confirmed Type Zonisamide [Zonegran] 300 mg PO HS 12/16/18 11/21/22 History Montelukast [Singulair] 10 mg PO HS 12/16/19 11/21/22 History Omeprazole 20 mg PO DAILY 12/16/19 11/21/22 History allopurinoL [Zyloprim] 100 mg PO DAILY 12/16/19 11/21/22 History Aspirin EC [Ecotrin Low Dose] 81 mg PO DAILY 04/12/20 11/21/22 History calcium polycarbophiL [Fibercon] 1,250 mg PO BID PRN 09/04/20 11/21/22 History Loratadine [Claritin] 10 mg PO DAILY 12/22/20 11/21/22 History Albuterol Sulfate [Proair Hfa] 2 puff INHALATION RT-QID PRN 12/12/21 11/21/22 History Cholecalciferol [Vitamin D3 (125 125 mcg PO DAILY 12/12/21 11/21/22 History Mcg = 5000 Iu)] Docusate 250mg Cap 250 mg PO BID 12/12/21 11/21/22 History Fenofibrate [Lofibra] 54 mg PO DAILY 12/12/21 11/21/22 History Folic Acid 1 mg PO DAILY 12/12/21 11/21/22 History Linaclotide [Linzess] 145 mcg PO DAILY 12/12/21 11/21/22 History metFORMIN HCL [Glucophage] 1,000 mg PO BID 12/12/21 11/21/22 History Bhn-Yffo-Trgql Acid 1 cap PO DAILY 08/05/22 11/21/22 History [-U Capsule (formulary)] guaiFENesin-DM 100-10MG/5ML 10 ml PO Q6H PRN 08/05/22 11/21/22 History [Robitussin DM] Benztropine Mesylate [Cogentin] 1 mg PO BID PRN 30 Days #30 tab 08/10/22 11/21/22 Rx Naltrexone HCl [Revia] 50 mg PO DAILY 30 Days #30 tab 08/31/22 11/21/22 Rx Promethazine 6.25MG/5Ml [Phenergan 5 ml PO TID PRN #120 ml 11/11/22 11/21/22 Rx Syrup] Aripiprazole Lauroxil [Aristada] 882 mg IM Q28D 11/21/22 11/21/22 History Baclofen [Lioresal] 10 mg PO HS PRN 11/21/22 11/21/22 History Bismuth Subsalicylate [Kaopectate] 524 mg PO Q6H PRN 11/21/22 11/21/22 History Budesonide/Formoterol Fumarate 2 puff INHALATION RT-BID 11/21/22 11/21/22 History [Symbicort 80-4.5 Mcg Inhaler] FLUoxetine HCL [PROzac] 20 mg PO DAILY 11/21/22 11/21/22 History Fluticasone Nasal [place] [Flonase 1 spray EA NOSTRIL DAILY 11/21/22 11/21/22 History Nasal [place]] Fluticasone Propionate 220 Mcg 2 puff INHALATION RT-BID 11/21/22 11/21/22 History [Flovent 220 Mcg Inhaler] Furosemide [Lasix] 20 mg PO DAILY 11/21/22 11/21/22 History Ibuprofen [Motrin] 400 mg PO BID PRN 11/21/22 11/21/22 History Losartan Potassium 100 mg PO DAILY 11/21/22 11/21/22 History Nystatin 100,000 Unit/gm Powd 1 applic TOPICAL BID PRN 11/21/22 11/21/22 History [Mycostatin Powder] Nystatin 100,000Unit/gm Cream 1 applic TOPICAL BID PRN 11/21/22 11/21/22 History [Mycostatin Cream] polyethylene glycoL 3350 [Miralax] 17 gm PO DAILY PRN 11/21/22 11/21/22 History Allergies Allergy/AdvReac Type Severity Reaction Status Date / Time Iodinated Contrast Media Allergy Anaphylaxis Verified 11/21/22 21:23 [Iodinated Contrast Media - IV Dye] peanut Allergy Anaphylaxis Verified 11/21/22 21:23 Penicillins Allergy Anaphylaxis Verified 11/21/22 21:23 shellfish derived Allergy Anaphylaxis Verified 11/21/22 21:23 cephalexin monohydrate AdvReac Nausea & Verified 11/21/22 21:23 [From Keflex] Vomiting & Diarrhea lacosamide [From Vimpat] AdvReac Anaphylaxis Verified 11/21/22 21:23 trazodone AdvReac bp Verified 11/21/22 21:23 issues/dissiness--patient takes at home Physical Exam Vitals: Vital Signs Temp Pulse Pulse Resp BP BP Pulse Ox 11/22/22 01:05 98.4 F 67 17 150/79 95 11/21/22 23:37 76 20 149/72 95 11/21/22 21:36 74 11/21/22 21:26 73 11/21/22 21:02 81 11/21/22 20:53 80 11/21/22 19:34 78 20 153/80 96 11/21/22 19:29 98.8 F 77 18 140/71 96 Intake and Output 11/21/22 11/21/22 11/22/22 14:59 22:59 06:59 Other: Weight 127.913 kg 127.913 kg Constitutional: No acute distress, conversant Eyes: Anicteric sclerae, moist conjunctiva, Pupils equal round reactive to light ENMT: NC/AT Oropharynx clear, no erythema, or exudates Neck: Supple, no masses, or JVD No carotid bruits No thyromegaly Lungs: prolonged expiratory phase, diffuse inspiratory and expiratory wheezing Clear to percussion Normal respiratory effort, no accessory muscle use Cardiovascular: Heart regular in rate and rhythm, No murmurs, gallops, or rubs No peripheral edema Abdominal: Soft Nontender, no guarding, rebound or rigidity Abdomen moving with respiration Normoactive bowel sounds No hepatomegaly, No splenomegaly No palpable mass Skin: Normal temperature, tone, texture, turgor Extremities: No digital cyanosis No clubbing Pedal pulses intact and symmetrical Radial pulses intact and symmetrical No calf tenderness Psychiatric: Alert and oriented to person, place Neuro Muscles Strength 5/5 in all 4 extremities Sensation to light touch grossly present throughout Cranial nerves II-XII grossly intact Lymphatics: no palpable cervical or supraclavicular lymph nodes Results CBC & Chem 7: 11/21/22 20:04 11/21/22 20:04 Labs: Abnormal Lab Results - Last 24 Hours (Table) 11/21/22 11/21/22 11/21/22 Range/Units 20:04 20:04 20:04 WBC 19.0 H (3.8-10.6) k/uL Neutrophils # 13.5 H (1.3-7.7) k/uL APTT 21.6 L (22.0-30.0) sec Sodium 136 L (137-145) mmol/L BUN 18 H (7-17) mg/dL Glucose 222 H (74-99) mg/dL Plasma Lactic Acid Ke[place] (0.7-2.0) mmol/L ALT 42 H (4-34) U/L 11/21/22 Range/Units 20:04 WBC (3.8-10.6) k/uL Neutrophils # (1.3-7.7) k/uL APTT (22.0-30.0) sec Sodium (137-145) mmol/L BUN (7-17) mg/dL Glucose (74-99) mg/dL Plasma Lactic Acid Ke[place] 3.1 H* (0.7-2.0) mmol/L ALT (4-34) U/L Thrombosis Risk Factor Assmnt - Choose All That Apply Each Factor Represents 1 point: Abnormal pulmonary function (COPD), Age 41-60 years, Obesity (BMI >25) Thrombosis Risk Factor Assessment Total Risk Factor Score: 3 Thrombosis Risk Factor Assessment Level: Moderate Risk Assessment and Plan Assessment: 42 year old female coming in with wheezing and shortness of breath , I discussed the case with ED doc, and I accepted the admission for acute asthma exacerbation with anticipated length of stay <2 midnights acute asthma exacerbation acute respiratory viral panel negative for covid , flu A and B, RSV CXR no acute pathology supplemental oxygen as needed to keep oxygen sat > 94% duonebs PRN q2 hr for SOB , and QID around the clock symbicort bid inhalers singulair qhs doxycyclin 100 mg po bid monitor vital signs systemic steroids , solumedrol 60 mg IVP q 6hr leukocytosis 19 , afebrile lactic acidosis 3.1 renal function unremarkable , BUN 18, cr 0.77 DM insulin sliding scale hypertension resume losartan 100 mg po daily h/o seizure resume zonergan seizure precautions obesity counseled regarding life style modification and weight loss full code DVT PPX lovenox 40 mg sc daily
[2022-11-22] MEDS ORDERED: SODIUM CHLORIDE 0.9% 1,000 ML IV SCH (03:00)
[2022-11-22] MEDS ORDERED: methylPREDNISolone SOD SUCCI 125 MG/2 ML VIAL IV SCH (06:00)
[2022-11-22] MEDS ORDERED: SODIUM CHLORIDE 0.9% 1,000 ML IV ONE (06:51)
[2022-11-22] MEDS ORDERED: PANTOPRAZOLE 40 MG TABLET PO SCH (07:30)
[2022-11-22] MEDS ORDERED: IPRATROPIUM-ALBUTEROL 3 ML NEB INHALATION SCH (08:00)
[2022-11-22] MEDS ORDERED: SYMBICORT 80-4.5 MCG INHALER INHALATION SCH (08:00)
[2022-11-22 08:22] VITALS: BP 150/70; RESP 16; TEMP 98.1
[2022-11-22] MEDS ORDERED: DOXYCYCLINE 100 MG CAP PO SCH (09:00)
[2022-11-22] MEDS ORDERED: ENOXAPARIN 40 MG/0.4 ML SYRINGE SQ SCH (09:00)
[2022-11-22] MEDS ORDERED: LORATADINE 10 MG TAB PO SCH (09:00)
[2022-11-22] MEDS ORDERED: ASPIRIN 81 MG PO SCH (09:00)
[2022-11-22] MEDS ORDERED: FLUTICASONE 50MCG/SPRAY NASAL 16GM EA NOSTRIL SCH (09:00)
[2022-11-22] MEDS ORDERED: DOCUSATE 100 MG CAP PO SCH (09:00)
[2022-11-22] MEDS ORDERED: FLUoxetine HCL 20 MG CAP PO SCH (09:00)
[2022-11-22] MEDS ORDERED: FUROSEMIDE 20 MG TAB PO SCH (09:00)
[2022-11-22] MEDS ORDERED: NON FORMULARY DRUG (Linaclotide [Linzess] 145 MCG Capsule) PO SCH (09:00)
[2022-11-22] MEDS ORDERED: allopurinoL 100 MG TAB PO SCH (09:00)
[2022-11-22] MEDS ORDERED: LOSARTAN 50 MG TAB PO SCH (09:00)
[2022-11-22 09:16] VITALS: PULSE 77
--- NOTE | 2022-11-22 10:28 | P.DS ---
Providers Date of admission: 11/21/22 23:08 Expected date of discharge: 11/22/22 Attending physician: Lizet Stone MD Primary care physician: [facility] Course: Acute asthma exacerbation Diabetes type 2 Hypertension History of seizure Obesity class III Hospital course: 42-year-old woman with medical history of asthma, diabetes, hypertension, seizure disorder, obesity presented for dyspnea. In the emergency room, patient was afebrile, 140/71, heart rate 77, 96% on room air. CBC demonstrated leukocytosis to 19. Basic metabolic panel showed BUN of 18, sodium of 136, otherwise unremarkable. Liver function test showed mild elevation of ALT to 42, otherwise normal. BNP was less than 11, troponin was less than 0.012. Coags are unremarkable. Lactic acid was 3.1 and then increase to 4.3. UA was negative. Influenza A, B, Covid, RSV were negative. EKG showed normal sinus rhythm with right bundle branch block, left anterior fascicular block, left axis deviation. Chest x-ray showed no evidence of acute cardiopulmonary disease or process. Case was discussed with the emergency room physician decision was made to admit the patient to observation for asthma exacerbation. Patient was starte d on nebulizers and steroids as well as doxycycline. Patient rapidly improved with these interventions, and was feeling back to her normal self after approximately 11 hours of observation and therapy. Patient was ultimately discharged home with instructions follow-up with primary care physician as well as pulmonology. She was given a 5 day total course of prednisone as well as 5 day total course of doxycycline. Gen: awake, alert HEENT: normocephalic, atraumatic, good hearing acuity, moist mucous membranes Resp: good air exchange, breathing comfortably with no accessory muscle use, clear to auscultation bilaterally CVS: good distal perfusion x 4, GI: soft, NTTP, ND : no SPT, no CVAT, navarrete catheter not present MSK: no pitting edema, no clubbing Neuro: non-focal, moving all extremities Psych: cooperative, euthymic mood Patient Condition at Discharge: Good Plan - Discharge Summary New Discharge Prescriptions: New predniSONE [Deltasone] 40 mg PO DAILY #8 tab Doxycycline [Vibramycin] 100 mg PO BID #8 cap Continue Zonisamide [Zonegran] 300 mg PO HS allopurinoL [Zyloprim] 100 mg PO DAILY Montelukast [Singulair] 10 mg PO HS Omeprazole 20 mg PO DAILY Aspirin EC [Ecotrin Low Dose] 81 mg PO DAILY calcium polycarbophiL [Fibercon] 1,250 mg PO BID PRN PRN Reason: Constipation Loratadine [Claritin] 10 mg PO DAILY Docusate 250mg Cap 250 mg PO BID Cholecalciferol [Vitamin D3 (125 Mcg = 5000 Iu)] 125 mcg PO DAILY Folic Acid 1 mg PO DAILY guaiFENesin-DM 100-10MG/5ML [Robitussin DM] 10 ml PO Q6H PRN PRN Reason: cough/congestion Naltrexone HCl [Revia] 50 mg PO DAILY 30 Days #30 tab Promethazine 6.25MG/5Ml [Phenergan Syrup] 5 ml PO TID PRN #120 ml PRN Reason: Cough FLUoxetine HCL [PROzac] 20 mg PO DAILY polyethylene glycoL 3350 [Miralax] 17 gm PO DAILY PRN PRN Reason: Constipation Fluticasone Nasal [place] [Flonase Nasal [place]] 1 spray EA NOSTRIL DAILY Budesonide/Formoterol Fumarate [Symbicort 80-4.5 Mcg Inhaler] 2 puff INHALATION RT-BID Baclofen [Lioresal] 10 mg PO HS PRN PRN Reason: Muscle Pain Furosemide [Lasix] 20 mg PO DAILY Fenofibrate [Lofibra] 54 mg PO DAILY Albuterol Sulfate [Proair Hfa] 2 puff INHALATION RT-QID PRN PRN Reason: Shortness Of Breath metFORMIN HCL [Glucophage] 1,000 mg PO BID Linaclotide [Linzess] 145 mcg PO DAILY [id number] Acid [-U Capsule (formulary)] 1 cap PO DAILY Benztropine Mesylate [Cogentin] 1 mg PO BID PRN 30 Days #30 tab PRN Reason: eps Bismuth Subsalicylate [Kaopectate] 524 mg PO Q6H PRN PRN Reason: Gi Upset Nystatin 100,000Unit/gm Cream [Mycostatin Cream] 1 applic TOPICAL BID PRN PRN Reason: Rash Nystatin 100,000 Unit/gm Powd [Mycostatin Powder] 1 applic TOPICAL BID PRN PRN Reason: Rash Ibuprofen [Motrin] 400 mg PO BID PRN PRN Reason: Pain Fluticasone Propionate 220 Mcg [Flovent 220 Mcg Inhaler] 2 puff INHALATION RT-BID Aripiprazole Lauroxil [Aristada] 882 mg IM Q28D Losartan Potassium 100 mg PO DAILY Discharge Medication List Zonisamide [Zonegran] 300 mg PO HS 12/16/18 [History] Montelukast [Singulair] 10 mg PO HS 12/16/19 [History] Omeprazole 20 mg PO DAILY 12/16/19 [History] allopurinoL [Zyloprim] 100 mg PO DAILY 12/16/19 [History] Aspirin EC [Ecotrin Low Dose] 81 mg PO DAILY 04/12/20 [History] calcium polycarbophiL [Fibercon] 1,250 mg PO BID PRN 09/04/20 [History] Loratadine [Claritin] 10 mg PO DAILY 12/22/20 [History] Albuterol Sulfate [Proair Hfa] 2 puff INHALATION RT-QID PRN 12/12/21 [History] Cholecalciferol [Vitamin D3 (125 Mcg = 5000 Iu)] 125 mcg PO DAILY 12/12/21 [History] Docusate 250mg Cap 250 mg PO BID 12/12/21 [History] Fenofibrate [Lofibra] 54 mg PO DAILY 12/12/21 [History] Folic Acid 1 mg PO DAILY 12/12/21 [History] Linaclotide [Linzess] 145 mcg PO DAILY 12/12/21 [History] metFORMIN HCL [Glucophage] 1,000 mg PO BID 12/12/21 [History] [id number] Acid [-U Capsule (formulary)] 1 cap PO DAILY 08/05/22 [History] guaiFENesin-DM 100-10MG/5ML [Robitussin DM] 10 ml PO Q6H PRN 08/05/22 [History] Benztropine Mesylate [Cogentin] 1 mg PO BID PRN 30 Days #30 tab 08/10/22 [Rx] Naltrexone HCl [Revia] 50 mg PO DAILY 30 Days #30 tab 08/31/22 [Rx] Promethazine 6.25MG/5Ml [Phenergan Syrup] 5 ml PO TID PRN #120 ml 11/11/22 [Rx] Aripiprazole Lauroxil [Aristada] 882 mg IM Q28D 11/21/22 [History] Baclofen [Lioresal] 10 mg PO HS PRN 11/21/22 [History] Bismuth Subsalicylate [Kaopectate] 524 mg PO Q6H PRN 11/21/22 [History] Budesonide/Formoterol Fumarate [Symbicort 80-4.5 Mcg Inhaler] 2 puff INHALATION RT-BID 11/21/22 [History] FLUoxetine HCL [PROzac] 20 mg PO DAILY 11/21/22 [History] Fluticasone Nasal [place] [Flonase Nasal [place]] 1 spray EA NOSTRIL DAILY 11/21/22 [History] Fluticasone Propionate 220 Mcg [Flovent 220 Mcg Inhaler] 2 puff INHALATION RT- BID 11/21/22 [History] Furosemide [Lasix] 20 mg PO DAILY 11/21/22 [History] Ibuprofen [Motrin] 400 mg PO BID PRN 11/21/22 [History] Losartan Potassium 100 mg PO DAILY 11/21/22 [History] Nystatin 100,000 Unit/gm Powd [Mycostatin Powder] 1 applic TOPICAL BID PRN 11/21/22 [History] Nystatin 100,000Unit/gm Cream [Mycostatin Cream] 1 applic TOPICAL BID PRN 11/21/22 [History] polyethylene glycoL 3350 [Miralax] 17 gm PO DAILY PRN 11/21/22 [History] Doxycycline [Vibramycin] 100 mg PO BID #8 cap 11/22/22 [Rx] predniSONE [Deltasone] 40 mg PO DAILY #8 tab 11/22/22 [Rx] Follow up Appointment(s)/Referral(s): [facility] Yuval ledezma [Primary Care Provider] - 1-2 days Discharge Disposition: OTHER INSTITUTION NOT DEFINED
[2022-11-22] MEDS ORDERED: MONTELUKAST 10 MG TAB PO SCH (21:00)
[2022-11-22] MEDS ORDERED: ZONISAMIDE 100 MG CAP PO SCH (21:00)
== END 2022-11-22 10:52 | disposition other institution (70) ==
LOC: EC 19:26 → 6NMEDSUR 23:08
PROVIDERS: ADMIT Internal Medicine; ATTEND Internal Medicine
DX: J45.31 Mild persistent asthma with (acute) exacerbation (principal); G40.909 Epilepsy, unspecified, not intractable, without status epilepticus; I11.0 Hypertensive heart disease with heart failure; I50.9 Heart failure, unspecified; D72.829 Elevated white blood cell count, unspecified; R74.8 Abnormal levels of other serum enzymes; I45.2 Bifascicular block; K74.60 Unspecified cirrhosis of liver; L40.9 Psoriasis, unspecified; G43.909 Migraine, unspecified, not intractable, without status migrainosus; M13.0 Polyarthritis, unspecified; D57.3 Sickle-cell trait; D64.9 Anemia, unspecified; K50.90 Crohn's disease, unspecified, without complications; M41.9 Scoliosis, unspecified; J44.9 Chronic obstructive pulmonary disease, unspecified; M10.9 Gout, unspecified; M79.7 Fibromyalgia; K21.9 Gastro-esophageal reflux disease without esophagitis; G89.29 Other chronic pain; M54.2 Cervicalgia; M54.50 Low back pain, unspecified; F20.9 Schizophrenia, unspecified; F31.9 Bipolar disorder, unspecified; F41.9 Anxiety disorder, unspecified; F60.9 Personality disorder, unspecified; F81.9 Developmental disorder of scholastic skills, unspecified; E66.01 Morbid (severe) obesity due to excess calories; Z68.42 Body mass index [BMI] 45.0-49.9, adult; Z71.3 Dietary counseling and surveillance; Z20.822 Contact with and (suspected) exposure to COVID-19; Z79.82 Long term (current) use of aspirin; Z79.84 Long term (current) use of oral hypoglycemic drugs; Z79.52 Long term (current) use of systemic steroids; Z79.51 Long term (current) use of inhaled steroids; Z79.899 Other long term (current) drug therapy; Z88.8 Allergy status to other drugs, medicaments and biological substances; Z88.1 Allergy status to other antibiotic agents; Z91.041 Radiographic dye allergy status; Z91.010 Allergy to peanuts; Z88.0 Allergy status to penicillin; Z91.013 Allergy to seafood; Z86.32 Personal history of gestational diabetes; Z87.19 Personal history of other diseases of the digestive system; Z87.01 Personal history of pneumonia (recurrent); Z90.49 Acquired absence of other specified parts of digestive tract; Z90.721 Acquired absence of ovaries, unilateral; Z98.890 Other specified postprocedural states; Z87.891 Personal history of nicotine dependence; Z80.3 Family history of malignant neoplasm of breast; Z81.8 Family history of other mental and behavioral disorders
CPT/HCPCS: 96376; 96372; 96365; 96375; 99285; 36415; 94640 ×3; 93005; 83880; 80053; 83605 ×2; 83735; 84484; 85025; 85610; 85730; 81003; 81025; 87636; 71046; G0378 ×2; J2930 ×2; J1650; J3475

== ENCOUNTER 2022-12-03 08:30 | Emergency (ER) | payer OTHER ==
[2022-12-03 08:38] VITALS: RESP 20
--- NOTE | 2022-12-03 09:11 | ED ---
General Adult HPI - General Chief complaint: Shortness of Breath Stated complaint: ESPINOZA Time Seen by Provider: 12/03/22 08:35 Source: patient, EMS, RN notes reviewed, old records reviewed Mode of arrival: ambulatory Limitations: no limitations - History of Present Illness Initial comments: This is a 42-year-old female who presents to the emergency department with past mental history significant for asthma and seizures. Patient states she got up today and felt short of breath so she decided come to the emergency department. Patient denies any chest pain. Patient denies any palpitations. Patient denies any recent fever chills. Patient states she has a chronic cough that is not changed. Patient denies any sputum production. Patient denies any back pain. Patient denies abdominal pain patient denies nausea vomiting diarrhea. Patient denies any swelling to the legs or calf tenderness. - Related Data Home Medications Medication Instructions Recorded Confirmed Zonisamide [Zonegran] 300 mg PO HS 12/16/18 11/21/22 Montelukast [Singulair] 10 mg PO HS 12/16/19 11/21/22 Omeprazole 20 mg PO DAILY 12/16/19 11/21/22 allopurinoL [Zyloprim] 100 mg PO DAILY 12/16/19 11/21/22 Aspirin EC [Ecotrin Low Dose] 81 mg PO DAILY 04/12/20 11/21/22 calcium polycarbophiL [Fibercon] 1,250 mg PO BID PRN 09/04/20 11/21/22 Loratadine [Claritin] 10 mg PO DAILY 12/22/20 11/21/22 Albuterol Sulfate [Proair Hfa] 2 puff INHALATION RT-QID PRN 12/12/21 11/21/22 Cholecalciferol [Vitamin D3 (125 125 mcg PO DAILY 12/12/21 11/21/22 Mcg = 5000 Iu)] Docusate 250mg Cap 250 mg PO BID 12/12/21 11/21/22 Fenofibrate [Lofibra] 54 mg PO DAILY 12/12/21 11/21/22 Folic Acid 1 mg PO DAILY 12/12/21 11/21/22 Linaclotide [Linzess] 145 mcg PO DAILY 12/12/21 11/21/22 metFORMIN HCL [Glucophage] 1,000 mg PO BID 12/12/21 11/21/22 Gmz-Pqgm-Amuig Acid 1 cap PO DAILY 08/05/22 11/21/22 [-U Capsule (formulary)] guaiFENesin-DM 100-10MG/5ML 10 ml PO Q6H PRN 08/05/22 11/21/22 [Robitussin DM] Aripiprazole Lauroxil [Aristada] 882 mg IM Q28D 11/21/22 11/21/22 Baclofen [Lioresal] 10 mg PO HS PRN 11/21/22 11/21/22 Bismuth Subsalicylate [Kaopectate] 524 mg PO Q6H PRN 11/21/22 11/21/22 Budesonide/Formoterol Fumarate 2 puff INHALATION RT-BID 11/21/22 11/21/22 [Symbicort 80-4.5 Mcg Inhaler] FLUoxetine HCL [PROzac] 20 mg PO DAILY 11/21/22 11/21/22 Fluticasone Nasal [place] [Flonase 1 spray EA NOSTRIL DAILY 11/21/22 11/21/22 Nasal [place]] Fluticasone Propionate 220 Mcg 2 puff INHALATION RT-BID 11/21/22 11/21/22 [Flovent 220 Mcg Inhaler] Furosemide [Lasix] 20 mg PO DAILY 11/21/22 11/21/22 Ibuprofen [Motrin] 400 mg PO BID PRN 11/21/22 11/21/22 Losartan Potassium 100 mg PO DAILY 11/21/22 11/21/22 Nystatin 100,000 Unit/gm Powd 1 applic TOPICAL BID PRN 11/21/22 11/21/22 [Mycostatin Powder] Nystatin 100,000Unit/gm Cream 1 applic TOPICAL BID PRN 11/21/22 11/21/22 [Mycostatin Cream] polyethylene glycoL 3350 [Miralax] 17 gm PO DAILY PRN 11/21/22 11/21/22 Previous Rx's Medication Instructions Recorded Benztropine Mesylate [Cogentin] 1 mg PO BID PRN 30 Days #30 tab 08/10/22 Naltrexone HCl [Revia] 50 mg PO DAILY 30 Days #30 tab 08/31/22 Promethazine 6.25MG/5Ml [Phenergan 5 ml PO TID PRN #120 ml 11/11/22 Syrup] Doxycycline [Vibramycin] 100 mg PO BID #8 cap 11/22/22 predniSONE [Deltasone] 40 mg PO DAILY #8 tab 11/22/22 Benzonatate [Tessalon Perle] 200 mg PO TID #9 capsule 12/03/22 Allergies Allergy/AdvReac Type Severity Reaction Status Date / Time Iodinated Contrast Media Allergy Anaphylaxis Verified 11/21/22 21:23 [Iodinated Contrast Media - IV Dye] peanut Allergy Anaphylaxis Verified 11/21/22 21:23 Penicillins Allergy Anaphylaxis Verified 11/21/22 21:23 shellfish derived Allergy Anaphylaxis Verified 11/21/22 21:23 cephalexin monohydrate AdvReac Nausea & Verified 11/21/22 21:23 [From Keflex] Vomiting & Diarrhea lacosamide [From Vimpat] AdvReac Anaphylaxis Verified 11/21/22 21:23 trazodone AdvReac bp Verified 11/21/22 21:23 issues/dissiness--patient takes at home Review of Systems ROS Statement: Those systems with pertinent positive or pertinent negative responses have been documented in the HPI. ROS Other: All systems not noted in ROS Statement are negative. Past Medical History Past Medical History: Asthma, Heart Failure, COPD, Fibromyalgia, GERD/Reflux, GI Bleed, Hypertension, Liver Disease, Osteoarthritis (OA), Pneumonia, Seizure Disorder, Skin Disorder Additional Past Medical History / Comment(s): Bronchitis, gestational diabetes, seizures with last one 09/03/20, sickle cell trait, liver cirrhosis, anemia, chrons, IBS, ulcerative colitis, lowr GI bleed, hemorrhoids, constipation, psoriasis, migraines, chronic low back and cervical pain, scoliosis, arhtritis in multiple joints, gout bilateral feet, History of Any Multi-Drug Resistant Organisms: None Reported Past Surgical History: Cholecystectomy, Orthopedic Surgery Additional Past Surgical History / Comment(s): L oophorectomy d/t cyst, D&C, colonoscopy, L carpal tunnel release, Past Anesthesia/Blood Transfusion Reactions: Motion Sickness, Postoperative Nausea & Vomiting (PONV) Past Psychological History: Anxiety, Bipolar, Depression, Schizophrenia Smoking Status: Former smoker Past Alcohol Use History: None Reported Past Drug Use History: Cocaine, Marijuana - Past Family History Mother History Unknown: Yes Family Medical History: Cancer Additional Family Medical History / Comment(s): Mother had breast cancer and metnal illness She is living. Father Family Medical History: Cancer Additional Family Medical History / Comment(s): Father is . He had agent orange exposure. He had liver cancer, bowel to brain cancer. General Exam - General Exam Comments Initial Comments: GENERAL: Patient is well-developed and well-nourished. Patient is nontoxic and well- hydrated and is in mild distress. Patient was oxygenating at 90% and speaking in full sentences and does not appear in any distress ENT: Neck is soft and supple. No significant lymphadenopathy is noted. Oropharynx is clear. Moist mucous membranes. Neck has full range of motion without eliciting any pain. EYES: The sclera were anicteric and conjunctiva were pink and moist. Extraocular movements were intact and pupils were equal round and reactive to light. Eyelids were unremarkable. PULMONARY: Unlabored respirations. Good breath sounds bilaterally. No audible rales rhonchi or wheezing was noted. CARDIOVASCULAR: There is a regular rate and rhythm without any murmurs gallops or rubs. ABDOMEN: Soft and nontender with normal bowel sounds. No palpable organomegaly was noted. There is no palpable pulsatile mass. SKIN: Skin is clear with no lesions or rashes and otherwise unremarkable. NEUROLOGIC: Patient is alert and oriented x3. Cranial nerves II through XII are grossly intact. Motor and sensory are also intact. Normal speech, volume and content. Symmetrical smile. MUSCULOSKELETAL: Normal extremities with adequate strength and full range of motion. LYMPHATICS: No significant lymphadenopathy is noted PSYCHIATRIC: Normal psychiatric evaluation. Limitations: no limitations Course Vital Signs 12/03/22 12/03/22 08:32 08:40 Temperature 98.3 F Pulse Rate 77 Respiratory 20 20 Rate Blood Pressure 133/67 O2 Sat by Pulse 94 L Oximetry Medical Decision Making - Medical Decision Making EKG was interpreted by myself shows a sinus rhythm at 73 bpm DE interval 263 QRS is under 61 Q-T intervals 423 QTC is 449. Patient's EKG shows no ST segment elevation or depression. Patient does have a right bundle branch block. Was pt. sent in by a medical professional or institution (, PA, ICE RINK ATTENDANT, urgent care, hospital, or long term...) When possible be specific @ -No Did you speak to anyone other than the patient for history (EMS, parent, family, police, friend...)? What history was obtained from this source @ -No Did you review nursing and triage notes (agree or disagree)? Why? @ -I reviewed and agree with nursing and triage notes Were old charts reviewed (outside hosp., previous admission, EMS record, old EKG, old radiological studies, urgent care reports/EKG's, long term records)? Report findings @ -Review prior labs and charts on this patient. Differential Diagnosis (chest pain, altered mental status, abdominal pain women, abdominal pain men, vaginal bleeding, weakness, fever, dyspnea, syncope, headache, dizziness, GI bleed, back pain, seizure, CVA, palpatations, mental health, musculoskeletal)? @ -Differential Dyspnea: Coronary syndrome, arrhythmia, tamponade, asthma, COPD, pulmonary embolism, pneumonia, pneumothorax, pulmonary effusion, anaphylaxis, diabetic ketoacidosis, flailed chest, pulmonary contusion, diaphragmatic rupture, anemia, neuromuscular, this is not meant to be an all-inclusive list. EKG interpreted by me (3pts min.). @ -As above X-rays interpreted by me (1pt min.). @ -Chest x-ray was interpreted by myself. Chest x-ray shows no acute abnormality CT interpreted by me (1pt min.). @ -None done U/S interpreted by me (1pt. min.). @ -None done What testing was considered but not performed or refused? (CT, X-rays, U/S, labs)? Why? @ -None What meds were considered but not given or refused? Why? @ -None Did you discuss the management of the patient with other professionals (professionals i.e. , PA, ICE RINK ATTENDANT, lab, RT, psych nurse, social services manager, box estimator, teacher, aboriginal home school liaison officer, nurse outreach case manager)? Give summary @ -No Was smoking cessation discussed for >3mins.? @ -No Was critical care preformed (if so, how long)? @ -No Were there social determinants of health that impacted care today? How? (Homeles sness, low income, unemployed, alcoholism, drug addiction, transportation, low edu. Level, literacy, decrease access to med. care, shelter, rehab)? @ -No Was there de-escalation of care discussed even if they declined (Discuss DNR or withdrawal of care, Hospice)? DNR status @ -No What co-morbidities impacted this encounter? (DM, HTN, Smoking, COPD, CAD, Cancer, CVA, ARF, Chemo, Hep., AIDS, mental health diagnosis, sleep apnea, morbid obesity)? @ -Asthma Was patient admitted / discharged? Hospital course, mention meds given and route, prescriptions, significant lab abnormalities, going to OR and other pertinent info. @ -I went back in and reevaluated the patient she was oxygenating at 98% on room air. Patient had no wheezing and was in no respiratory distress in fact I had to wake her up I went back in the room. Patient chest x-ray showed no acute abnormality. Patient was complaining only of a cough but no fever no sputum production and at this time it was thought to be viral in nature she'll be sent home to follow-up with her primary medical care doctor Undiagnosed new problem with uncertain prognosis? @ -No Drug Therapy requiring intensive monitoring for toxicity (Heparin, Nitro, Insulin, Cardizem)? @ -No Were any procedures done? @ -No Diagnosis/symptom? @ -URI Acute, or Chronic, or Acute on Chronic? @ -Acute Uncomplicated (without systemic symptoms) or Complicated (systemic symptoms)? @ -Uncomplicated Side effects of treatment? @ -No Exacerbation, Progression, or Severe Exacerbation? @ -No Poses a threat to life or bodily function? How? (Chest pain, [place], NH, pneumonia, PE, COPD, DKA, ARF, appy, cholecystitis, CVA, Diverticulitis, Homicidal, Suicidal, threat to staff... and all critical care pts) @ -No - Lab Data Result diagrams: 12/03/22 10:52 12/03/22 10:52 Lab Results 12/03/22 12/03/22 12/03/22 Range/Units 10:01 10:01 10:01 WBC (3.8-10.6) k/uL RBC (3.80-5.40) m/uL Hgb (11.4-16.0) gm/dL Hct (34.0-46.0) % MCV (80.0-100.0) fL MCH (25.0-35.0) pg MCHC (31.0-37.0) g/dL RDW (11.5-15.5) % Plt Count (150-450) k/uL MPV Neutrophils % % Lymphocytes % % Monocytes % % Eosinophils % % Basophils % % Neutrophils # (1.3-7.7) k/uL Lymphocytes # (1.0-4.8) k/uL Monocytes # (0-1.0) k/uL Eosinophils # (0-0.7) k/uL Basophils # (0-0.2) k/uL PT (9.0-12.0) sec INR (<1.2) APTT (22.0-30.0) sec Sodium (137-145) mmol/L Potassium (3.5-5.1) mmol/L Chloride (98-107) mmol/L Carbon Dioxide (22-30) mmol/L Anion Gap mmol/L BUN (7-17) mg/dL Creatinine (0.52-1.04) mg/dL Est GFR (CKD-EPI)AfAm (>60 ml/min/1.73 sqM) Est GFR (CKD-EPI)NonAf (>60 ml/min/1.73 sqM) Glucose (74-99) mg/dL Plasma Lactic Acid [place] 1.9 (0.7-2.0) mmol/L Calcium (8.4-10.2) mg/dL Magnesium (1.6-2.3) mg/dL Total Bilirubin (0.2-1.3) mg/dL AST (14-36) U/L ALT (4-34) U/L Alkaline Phosphatase (38-126) U/L Troponin I <0.012 (0.000-0.034) ng/mL NT-Pro-B Natriuret Pep 71 pg/mL Total Protein (6.3-8.2) g/dL Albumin (3.5-5.0) g/dL 12/03/22 12/03/22 12/03/22 Range/Units 10:52 10:52 10:52 WBC 13.8 H (3.8-10.6) k/uL RBC 4.36 (3.80-5.40) m/uL Hgb 12.2 (11.4-16.0) gm/dL Hct 36.4 (34.0-46.0) % MCV 83.4 (80.0-100.0) fL MCH 27.9 (25.0-35.0) pg MCHC 33.5 (31.0-37.0) g/dL RDW 16.0 H (11.5-15.5) % Plt Count 187 (150-450) k/uL MPV 7.2 Neutrophils % 80 % Lymphocytes % 12 % Monocytes % 4 % Eosinophils % 2 % Basophils % 0 % Neutrophils # 11.1 H (1.3-7.7) k/uL Lymphocytes # 1.6 (1.0-4.8) k/uL Monocytes # 0.6 (0-1.0) k/uL Eosinophils # 0.3 (0-0.7) k/uL Basophils # 0.0 (0-0.2) k/uL PT 9.4 (9.0-12.0) sec INR 0.9 (<1.2) APTT 23.0 (22.0-30.0) sec Sodium 140 (137-145) mmol/L Potassium 4.4 (3.5-5.1) mmol/L Chloride 105 (98-107) mmol/L Carbon Dioxide 23 (22-30) mmol/L Anion Gap 12 mmol/L BUN 13 (7-17) mg/dL Creatinine 0.56 (0.52-1.04) mg/dL Est GFR (CKD-EPI)AfAm >90 (>60 ml/min/1.73 sqM) Est GFR (CKD-EPI)NonAf >90 (>60 ml/min/1.73 sqM) Glucose 174 H (74-99) mg/dL Plasma Lactic Acid [place] (0.7-2.0) mmol/L Calcium 8.6 (8.4-10.2) mg/dL Magnesium 2.0 (1.6-2.3) mg/dL Total Bilirubin 0.3 (0.2-1.3) mg/dL AST 30 (14-36) U/L ALT 42 H (4-34) U/L Alkaline Phosphatase 75 (38-126) U/L Troponin I (0.000-0.034) ng/mL NT-Pro-B Natriuret Pep pg/mL Total Protein 6.8 (6.3-8.2) g/dL Albumin 3.7 (3.5-5.0) g/dL Disposition Clinical Impression: URI (upper respiratory infection) Disposition: HOME SELF-CARE Condition: Good Instructions (If sedation given, give patient instructions): Upper Respiratory Infection (ED) Prescriptions: Benzonatate [Tessalon Perle] 200 mg PO TID #9 capsule Is patient prescribed a controlled substance at d/c from ED?: No Referrals: [facility] [NON-STAFF] - 12/18/22 8:00 am Ebony Young MD [STAFF PHYSICIAN] - 1-2 days (Office was sent information. Please contact them for appointment.) Time of Disposition: 11:34
--- NOTE | 2022-12-03 10:31 | XR ---
EXAMINATION TYPE: XR chest 2V DATE OF EXAM: 12/03/2022 COMPARISON: Chest x-ray November 21, 2022 HISTORY: Congestion and cough. TECHNIQUE: Frontal and lateral views of the chest are obtained. FINDINGS: Evaluation slightly suboptimal due to large body habitus. Low lung volumes redemonstrated. There is no focal air space opacity, pleural effusion, or pneumothorax seen. The cardiac silhouette size is upper limits of normal. The osseous structures are intact. Overlying EKG leads noted on cur rent study. IMPRESSION: No acute cardiopulmonary process. No significant change from recent x-ray.
[2022-12-03 11:12] LABS: INR 0.9 (<1.2); Prothrombin Time 9.4 sec (9.0-12.0)
[2022-12-03 11:13] LABS: ALT 42 U/L (4-34); AST 30 U/L (14-36); African American GFR (CKD) >90 (>60 ml/min/1.73 sqM); Albumin 3.7 g/dL (3.5-5.0); Alkaline Phosphatase 75 U/L (38-126); Anion Gap 12 mmol/L; Blood Urea Nitrogen 13 mg/dL (7-17); Calcium 8.6 mg/dL (8.4-10.2); Carbon Dioxide 23 mmol/L (22-30); Chloride 105 mmol/L (98-107); Glucose 174 mg/dL (74-99); Non-African American GFR(CKD) >90 (>60 ml/min/1.73 sqM); Potassium 4.4 mmol/L (3.5-5.1); Sodium 140 mmol/L (137-145); Total Bilirubin 0.3 mg/dL (0.2-1.3); Total Protein 6.8 g/dL (6.3-8.2)
[2022-12-03 11:24] LABS: Basophils % (A) 0 %; Eosinophils # (A) 0.3 k/uL (0-0.7); Eosinophils % (A) 2 %; HCT 36.4 % (34.0-46.0); HGB 12.2 gm/dL (11.4-16.0); Lymphocytes # (A) 1.6 k/uL (1.0-4.8); Lymphocytes % (A) 12 %; MCH 27.9 pg (25.0-35.0); MCHC 33.5 g/dL (31.0-37.0); MCV 83.4 fL (80.0-100.0); Mean Platelet Volume 7.2; Monocytes # (A) 0.6 k/uL (0-1.0); Monocytes % (A) 4 %; Neutrophils # (A) 11.1 k/uL (1.3-7.7); Neutrophils % (A) 80 %; Platelet Count 187 k/uL (150-450); RBC 4.36 m/uL (3.80-5.40); WBC 13.8 k/uL (3.8-10.6)
[2022-12-03 11:48] VITALS: BP 112/58; PULSE 75; TEMP 98.5
== END 2022-12-03 11:48 | disposition home or self-care (01) ==
LOC: EC 08:30
DX: J06.9 Acute upper respiratory infection, unspecified (principal); I11.0 Hypertensive heart disease with heart failure; I50.9 Heart failure, unspecified; J44.9 Chronic obstructive pulmonary disease, unspecified; F31.9 Bipolar disorder, unspecified; F41.9 Anxiety disorder, unspecified; K21.9 Gastro-esophageal reflux disease without esophagitis; M19.90 Unspecified osteoarthritis, unspecified site; Z79.51 Long term (current) use of inhaled steroids; Z79.82 Long term (current) use of aspirin; Z79.84 Long term (current) use of oral hypoglycemic drugs; Z79.899 Other long term (current) drug therapy; Z88.0 Allergy status to penicillin; Z88.1 Allergy status to other antibiotic agents; Z88.8 Allergy status to other drugs, medicaments and biological substances; Z91.013 Allergy to seafood; Z91.018 Allergy to other foods; Z87.891 Personal history of nicotine dependence; Z90.49 Acquired absence of other specified parts of digestive tract
CPT/HCPCS: 36415; 71046; 80053; 83605; 83735; 83880; 84484; 85025; 85610; 85730; 93005; 99285

== ENCOUNTER 2022-12-07 07:07 | Emergency (ER) | payer OTHER ==
[2022-12-07] MEDS ORDERED: ONDANSETRON 4 MG/2 ML VIAL IVP STA (07:20)
[2022-12-07] MEDS ORDERED: SODIUM CHLORIDE 0.9% 1,000 ML IV STA (07:20)
[2022-12-07] MEDS ORDERED: LOPERAMIDE 2 MG CAP PO STA (07:28)
--- NOTE | 2022-12-07 07:28 | ED ---
Nausea/Vomiting/Diarrhea HPI - General Chief complaint: Psychiatric Symptoms Stated complaint: Vomiting - flu Time Seen by Provider: 12/07/22 07:10 Source: patient, RN notes reviewed Mode of arrival: ambulatory Limitations: no limitations - History of Present Illness Initial comments: This is a 42-year-old female who presents to the emergency department for nausea, vomiting, diarrhea, and psychiatric evaluation. States that the nausea, vomiting, and diarrhea have been going on for 3 days. Denies any associated abdominal pain. Denies any blood in her stool or vomit. Additionally, states that she's had increasing depression and suicidal ideations. Denies any plans or auditory/visual hallucinations. She was started on Prozac 2 weeks ago and fee ls like it is making her worse. Prior to this she was on Cymbalta, which she felt like worked much better for her. She is hoping to go back on the Cymbalta, she is not sure why this was discontinued. Denies any fevers, chills, sore throat, cough, dyspnea, chest pain, palpitations, abdominal pain, back pain, or headaches. MD complaint: nausea, vomiting, diarrhea Onset/Timin -: days(s) Associated Abdominal Pain: No - Related Data Home Medications Medication Instructions Recorded Confirmed Zonisamide [Zonegran] 300 mg PO HS 12/16/18 12/09/22 Montelukast [Singulair] 10 mg PO HS 12/16/19 12/09/22 Omeprazole 20 mg PO DAILY 12/16/19 12/09/22 allopurinoL [Zyloprim] 100 mg PO DAILY 12/16/19 12/09/22 Aspirin EC [Ecotrin Low Dose] 81 mg PO DAILY 04/12/20 12/09/22 calcium polycarbophiL [Fibercon] 1,250 mg PO BID PRN 09/04/20 12/09/22 Loratadine [Claritin] 10 mg PO DAILY 12/22/20 12/09/22 Albuterol Sulfate [Proair Hfa] 2 puff INHALATION RT-QID PRN 12/12/21 12/09/22 Cholecalciferol [Vitamin D3 (125 125 mcg PO DAILY 12/12/21 12/09/22 Mcg = 5000 Iu)] Docusate 250mg Cap 250 mg PO BID 12/12/21 12/09/22 Fenofibrate [Lofibra] 54 mg PO DAILY 12/12/21 12/09/22 Folic Acid 1 mg PO DAILY 12/12/21 12/09/22 Linaclotide [Linzess] 145 mcg PO DAILY 12/12/21 12/09/22 metFORMIN HCL [Glucophage] 1,000 mg PO BID 12/12/21 12/09/22 Ljd-Rmfq-Ybmee Acid 1 cap PO DAILY 08/05/22 12/09/22 [-U Capsule (formulary)] guaiFENesin-DM 100-10MG/5ML 10 ml PO Q6H PRN 08/05/22 12/09/22 [Robitussin DM] Aripiprazole Lauroxil [Aristada] 882 mg IM Q28D 11/21/22 12/09/22 Baclofen [Lioresal] 10 mg PO HS PRN 11/21/22 12/09/22 Bismuth Subsalicylate [Kaopectate] 524 mg PO Q6H PRN 11/21/22 12/09/22 Budesonide/Formoterol Fumarate 2 puff INHALATION RT-BID 11/21/22 12/09/22 [Symbicort 80-4.5 Mcg Inhaler] FLUoxetine HCL [PROzac] 20 mg PO DAILY 11/21/22 12/09/22 Fluticasone Nasal Buhl [Flonase 1 spray EA NOSTRIL DAILY 11/21/22 12/09/22 Nasal Buhl] Fluticasone Propionate 220 Mcg 2 puff INHALATION RT-BID 11/21/22 12/09/22 [Flovent 220 Mcg Inhaler] Furosemide [Lasix] 20 mg PO DAILY 11/21/22 12/09/22 Ibuprofen [Motrin] 400 mg PO BID PRN 11/21/22 12/09/22 Losartan Potassium 100 mg PO DAILY 11/21/22 12/09/22 Nystatin 100,000 Unit/gm Powd 1 applic TOPICAL BID PRN 11/21/22 12/09/22 [Mycostatin Powder] Nystatin 100,000Unit/gm Cream 1 applic TOPICAL BID PRN 11/21/22 12/09/22 [Mycostatin Cream] polyethylene glycoL 3350 [Miralax] 17 gm PO DAILY PRN 11/21/22 12/09/22 Clotrimazole Cream [Lotrimin Cream] 1 applic TOPICAL TID 12/07/22 12/09/22 Previous Rx's Medication Instructions Recorded Benztropine Mesylate [Cogentin] 1 mg PO BID PRN 30 Days #30 tab 08/10/22 Naltrexone HCl [Revia] 50 mg PO DAILY 30 Days #30 tab 08/31/22 Promethazine 6.25MG/5Ml [Phenergan 5 ml PO TID PRN #120 ml 11/11/22 Syrup] Ondansetron Odt [Zofran Odt] 4 mg PO Q8HR PRN #15 tab 12/07/22 Metoclopramide [Reglan] 5 mg PO ACHS #12 tab 12/09/22 Allergies Allergy/AdvReac Type Severity Reaction Status Date / Time Iodinated Contrast Media Allergy Anaphylaxis Verified 12/09/22 18:50 [Iodinated Contrast Media - IV Dye] lacosamide [From Vimpat] Allergy Anaphylaxis Verified 12/09/22 18:50 peanut Allergy Anaphylaxis Verified 12/09/22 18:50 Penicillins Allergy Anaphylaxis Verified 12/09/22 18:50 shellfish derived Allergy Anaphylaxis Verified 12/09/22 18:50 cephalexin monohydrate AdvReac Nausea & Verified 12/09/22 18:50 [From Keflex] Vomiting & Diarrhea trazodone AdvReac bp Verified 12/09/22 18:50 issues/dizziness Review of Systems ROS Statement: Those systems with pertinent positive or pertinent negative responses have been documented in the HPI. ROS Other: All systems not noted in ROS Statement are negative. Past Medical History Past Medical History: Asthma, Heart Failure, COPD, Fibromyalgia, GERD/Reflux, GI Bleed, Hypertension, Liver Disease, Osteoarthritis (OA), Pneumonia, Seizure Disorder, Skin Disorder Additional Past Medical History / Comment(s): Bronchitis, gestational diabetes, seizures with last one 09/03/20, sickle cell trait, liver cirrhosis, anemia, chrons, IBS, ulcerative colitis, lowr GI bleed, hemorrhoids, constipation, psoriasis, migraines, chronic low back and cervical pain, scoliosis, arhtritis in multiple joints, gout bilateral feet, History of Any Multi-Drug Resistant Organisms: None Reported Past Surgical History: Cholecystectomy, Orthopedic Surgery Additional Past Surgical History / Comment(s): L oophorectomy d/t cyst, D&C, colonoscopy, L carpal tunnel release, Past Anesthesia/Blood Transfusion Reactions: Motion Sickness, Postoperative Nausea & Vomiting (PONV) Past Psychological History: Anxiety, Bipolar, Depression, Schizophrenia Smoking Status: Former smoker Past Alcohol Use History: None Reported Past Drug Use History: Cocaine, Marijuana - Past Family History Mother History Unknown: Yes Family Medical History: Cancer Additional Family Medical History / Comment(s): Mother had breast cancer and metnal illness She is living. Father Family Medical History: Cancer Additional Family Medical History / Comment(s): Father is . He had agent orange exposure. He had liver cancer, bowel to brain cancer. General Exam Limitations: no limitations General appearance: alert, in no apparent distress Head exam: Present: atraumatic, normocephalic, normal inspection Respiratory exam: Present: normal lung sounds bilaterally. Absent: respiratory distress, wheezes, rales, rhonchi, stridor Cardiovascular Exam: Present: regular rate, normal rhythm, normal heart sounds. Absent: systolic murmur, diastolic murmur, rubs, gallop, clicks GI/Abdominal exam: Present: soft, normal bowel sounds. Absent: distended, tenderness, guarding, rebound, rigid Neurological exam: Present: alert, oriented X3, CN II-XII intact Psychiatric exam: Present: depressed, flat affect Skin exam: Present: warm, dry, intact, normal color. Absent: rash Course Vital Signs 12/07/22 12/07/22 12/07/22 07:12 10:00 15:42 Temperature 98 F 97.8 F Pulse Rate 68 66 80 Respiratory 20 18 18 Rate Blood Pressure 126/77 134/63 128/88 O2 Sat by Pulse 96 97 99 Oximetry Medical Decision Making - Medical Decision Making This is a 42-year-old female who presents to the emergency department for nausea, vomiting, diarrhea, and psychiatric evaluation. Was pt. sent in by a medical professional or institution? @ -No Did you speak to anyone other than the patient for history? @ -No Did you review nursing and triage notes? @ -Yes, and I agree, it is accurate with regards to the patient's symptoms. Were old charts reviewed? @ -No Differential Diagnosis? @ -Differential Nausea and Vomiting: Gastroenteritis, cholecystitis, appendicitis, pancreatitis, migraine, benign positional vertigo, food borne illness, pyelonephritis, irritable bowel syndrome, influenza, Covid, GERD, incarcerated hernia, intestinal obstruction, this is not meant to be an all-inclusive list. -Differential Mental Health: Depression, anxiety, bipolar, psychosis, schizophrenia, borderline personality, situational depression, adjustment disorder, behavioral disorder, brain tumor, malingering, substance abuse, encephalopathy, medication reaction, dementia, hypothyroidism, degenerative neurologic disorder, lupus.... This is not meant to be all-inclusive list What testing was considered but not performed? (CT, X-rays, U/S, labs)? Why? @ -None What meds were considered but not given? Why? @ -None Did you discuss the management of the patient with other professionals? @ -Yes, EPS, who cleared the patient for discharge home from a mental health perspective. Did you reconcile home meds? @ -No Was smoking cessation discussed for >3mins.? @ -No Was critical care preformed (if so, how long)? @ -No Were there social determinants of health that impacted care today? How? (Homelessness, low income, unemployed, alcoholism, drug addiction, transport ation, low edu. Level, literacy, decrease access to med. care, alf, rehab)? @ -No Was there de-escalation of care discussed even if they declined? (Discuss DNR or withdrawal of care, Hospice)? @ -No What co-morbidities impacted this encounter? (DM, HTN, Smoking, COPD, CAD, Cancer, CVA, Hep., AIDS, mental health diagnosis, sleep apnea, morbid obesity)? @ -Depression, morbid obesity, liver disease Was patient admitted / discharged? @ -Discharged. Patient initially given IV fluids, Zofran, and Imodium to manage the N/V/D. she did feel much better following medication administration and was eating and drinking without difficulty. BAT was 0 and the patient was cleared for EPS evaluation. EPS determined the patient to be stable for discharge home from a mental health perspective. Prescription for Zofran provided with dosing instructions reviewed. Advised she slowly advance her diet as tolerated and remain well-hydrated. Undiagnosed new problem with uncertain prognosis? @ -None Drug Therapy requiring intensive monitoring for toxicity (Heparin, Nitro, Insulin, Cardizem)? @ -None Were any procedures done? @ -None Diagnosis/symptom? @ -Gastroenteritis Acute, or Chronic, or Acute on Chronic? @ -Acute Uncomplicated (without systemic symptoms) or Complicated (systemic symptoms)? @ -Uncomplicated Side effects of treatment? @ -None Exacerbation, Progression, or Severe Exacerbation] @ -Not applicable Poses a threat to life or bodily function? @ -No Diagnosis/symptom? @ -Depression Acute, or Chronic, or Acute on Chronic? @ -Acute on chronic Uncomplicated (without systemic symptoms) or Complicated (systemic symptoms)? @ -Uncomplicated Side effects of treatment? @ -None Exacerbation, Progression, or Severe Exacerbation] @ -Exacerbation Poses a threat to life or bodily function? @ -No Return precautions reviewed in depth, the patient is instructed to return to the emergency department with any new, worsening, or concerning symptoms. Patient verbalized understanding. This case was discussed in detail with the attending ED physician, Dr. Mitchell. Presentation, findings, and treatment plan discussed in detail as well. - Lab Data Result diagrams: 12/07/22 07:46 12/07/22 07:46 Lab Results 12/07/22 12/07/22 12/07/22 Range/Units 07:46 07:46 07:46 WBC 12.2 H (3.8-10.6) k/uL RBC 4.81 (3.80-5.40) m/uL Hgb 12.8 (11.4-16.0) gm/dL Hct 40.6 (34.0-46.0) % MCV 84.6 (80.0-100.0) fL MCH 26.7 (25.0-35.0) pg MCHC 31.6 (31.0-37.0) g/dL RDW 15.7 H (11.5-15.5) % Plt Count 221 (150-450) k/uL MPV 7.4 Neutrophils % 77 % Lymphocytes % 15 % Monocytes % 4 % Eosinophils % 3 % Basophils % 0 % Neutrophils # 9.4 H (1.3-7.7) k/uL Lymphocytes # 1.8 (1.0-4.8) k/uL Monocytes # 0.5 (0-1.0) k/uL Eosinophils # 0.4 (0-0.7) k/uL Basophils # 0.0 (0-0.2) k/uL Sodium 138 (137-145) mmol/L Potassium 4.3 (3.5-5.1) mmol/L Chloride 107 (98-107) mmol/L Carbon Dioxide 22 (22-30) mmol/L Anion Gap 9 mmol/L BUN 9 (7-17) mg/dL Creatinine 0.67 (0.52-1.04) mg/dL Est GFR (CKD-EPI)AfAm >90 (>60 ml/min/1.73 sqM) Est GFR (CKD-EPI)NonAf >90 (>60 ml/min/1.73 sqM) Glucose 168 H (74-99) mg/dL Calcium 8.8 (8.4-10.2) mg/dL Total Bilirubin 0.4 (0.2-1.3) mg/dL AST 36 (14-36) U/L ALT 42 H (4-34) U/L Alkaline Phosphatase 88 (38-126) U/L Total Protein 7.2 (6.3-8.2) g/dL Albumin 3.9 (3.5-5.0) g/dL Urine Color Yellow Urine Appearance Cloudy H (Clear) Urine pH 5.0 (5.0-8.0) Ur Specific Sunset 1.021 (1.001-1.035) Urine Protein Negative (Negative) Urine Glucose (UA) Negative (Negative) Urine Ketones Negative (Negative) Urine Blood Negative (Negative) Urine Nitrite Negative (Negative) Urine Bilirubin Negative (Negative) Urine Urobilinogen <2.0 (<2.0) mg/dL Ur Leukocyte Esterase Negative (Negative) Urine WBC 3 (0-5) /hpf Ur Squamous Epith Cells 2 (0-4) /hpf Urine Bacteria Moderate H (None) /hpf Urine Mucus Occasional H (None) /hpf Urine Opiates Screen Not Detected (NotDetected) Ur Oxycodone Screen Not Detected (NotDetected) Urine Methadone Screen Not Detected (NotDetected) Ur Propoxyphene Screen Not Detected (NotDetected) Ur Barbiturates Screen Not Detected (NotDetected) U Tricyclic Antidepress Not Detected (NotDetected) Ur Phencyclidine Scrn Not Detected (NotDetected) Ur Amphetamines Screen Not Detected (NotDetected) U Methamphetamines Scrn Not Detected (NotDetected) U Benzodiazepines Scrn Detected H (NotDetected) Urine Cocaine Screen Not Detected (NotDetected) U Marijuana (THC) Screen Not Detected (NotDetected) Disposition Clinical Impression: Gastroenteritis, Depression Disposition: HOME SELF-CARE Instructions (If sedation given, give patient instructions): Gastroenteritis (ED) Additional Instructions: Return to the emergency department with any new, worsening, or concerning symptoms. Take the Zofran up to every 8 hours as needed for nausea and vomiting. Slowly advance your diet as tolerated and remain well-hydrated. Take [id number] Imodium as needed for diarrhea. Follow up with your primary care provider in 1-2 days. Prescriptions: Ondansetron Odt [Zofran Odt] 4 mg PO Q8HR PRN #15 tab PRN Reason: Nausea And Vomiting Is patient prescribed a controlled substance at d/c from ED?: No Referrals: Evelyn Blas MD [Primary Care Provider] - 1-2 days
[2022-12-07 08:09] LABS: ALT 42 U/L (4-34); AST 36 U/L (14-36); African American GFR (CKD) >90 (>60 ml/min/1.73 sqM); Albumin 3.9 g/dL (3.5-5.0); Alkaline Phosphatase 88 U/L (38-126); Anion Gap 9 mmol/L; Blood Urea Nitrogen 9 mg/dL (7-17); Calcium 8.8 mg/dL (8.4-10.2); Carbon Dioxide 22 mmol/L (22-30); Chloride 107 mmol/L (98-107); Glucose 168 mg/dL (74-99); Non-African American GFR(CKD) >90 (>60 ml/min/1.73 sqM); Potassium 4.3 mmol/L (3.5-5.1); Sodium 138 mmol/L (137-145); Total Bilirubin 0.4 mg/dL (0.2-1.3); Total Protein 7.2 g/dL (6.3-8.2)
[2022-12-07 08:30] LABS: Basophils % (A) 0 %; Eosinophils # (A) 0.4 k/uL (0-0.7); Eosinophils % (A) 3 %; HCT 40.6 % (34.0-46.0); HGB 12.8 gm/dL (11.4-16.0); Lymphocytes # (A) 1.8 k/uL (1.0-4.8); Lymphocytes % (A) 15 %; MCH 26.7 pg (25.0-35.0); MCHC 31.6 g/dL (31.0-37.0); MCV 84.6 fL (80.0-100.0); Mean Platelet Volume 7.4; Monocytes # (A) 0.5 k/uL (0-1.0); Monocytes % (A) 4 %; Neutrophils # (A) 9.4 k/uL (1.3-7.7); Neutrophils % (A) 77 %; Platelet Count 221 k/uL (150-450); RBC 4.81 m/uL (3.80-5.40); RDW 15.7 % (11.5-15.5); WBC 12.2 k/uL (3.8-10.6)
[2022-12-07 08:42] LABS: Amphetamine Screen,Urine Not Detected (NotDetected); Barbiturate Screen,Urine Not Detected (NotDetected); Benzodiazepines Screen,Urine Detected (NotDetected); Cocaine Screen,Urine Not Detected (NotDetected); Methadone Screen, Urine Not Detected (NotDetected); Opiate Screen,Urine Not Detected (NotDetected); Oxycodone Screen, Urine Not Detected (NotDetected); Phencyclidine Screen,Urine Not Detected (NotDetected); Tricyclic Antidepressant,Urine Not Detected (NotDetected); Urn Cannabinoid Scrn Not Detected (NotDetected)
[2022-12-07 08:43] LABS: Appearance,Urine Cloudy (Clear); Bacteria,Urine Moderate /hpf; Bilirubin,Urine Negative (Negative); Blood,Urine Negative (Negative); Color,Urine Yellow; Glucose,Urine (UA) Negative (Negative); Ketones,Urine Negative (Negative); Leukocyte Esterase,Urine Negative (Negative); Mucus,Urine Occasional /hpf; Nitrite,Urine Negative (Negative); Protein,Urine Negative (Negative); Specific Gravity,Urine 1.021 (1.001-1.035); Squamous Epithelial Cell,Urine 2 /hpf (0-4); Urobilinogen,Urine <2.0 mg/dL (<2.0); WBC,Urine 3 /hpf (0-5)
[2022-12-07] MEDS ORDERED: ONDANSETRON 4 MG ODT STARTER PACK 2 TAB BTL PO STA (15:11)
[2022-12-07 15:31] VITALS: RESP 18; TEMP 97.8
[2022-12-07 15:43] VITALS: BP 128/88; PULSE 80
== END 2022-12-07 15:43 | disposition home or self-care (01) ==
LOC: EC 07:07
DX: K52.9 Noninfective gastroenteritis and colitis, unspecified (principal); F32.A Depression, unspecified; J44.9 Chronic obstructive pulmonary disease, unspecified; I11.0 Hypertensive heart disease with heart failure; I50.9 Heart failure, unspecified; K21.9 Gastro-esophageal reflux disease without esophagitis; M19.90 Unspecified osteoarthritis, unspecified site; F41.9 Anxiety disorder, unspecified; Z87.891 Personal history of nicotine dependence; Z88.1 Allergy status to other antibiotic agents; Z88.0 Allergy status to penicillin; Z91.010 Allergy to peanuts; Z91.041 Radiographic dye allergy status; Z88.8 Allergy status to other drugs, medicaments and biological substances; Z79.82 Long term (current) use of aspirin; Z79.84 Long term (current) use of oral hypoglycemic drugs; Z79.51 Long term (current) use of inhaled steroids; Z79.899 Other long term (current) drug therapy
CPT/HCPCS: 82075; 36415; 80053; 85025; 81001; 80306; 99284; 96374; 96361; J2405; S0119

== ENCOUNTER 2022-12-09 16:53 | Emergency (ER) | payer OTHER ==
[2022-12-09] MEDS ORDERED: METOCLOPRAMIDE 5 MG/ML 2 ML VIAL IVP STA (18:59)
--- NOTE | 2022-12-09 19:10 | ED ---
General Adult HPI - General Chief complaint: Nausea/Vomiting/Diarrhea Stated complaint: Nausea/Diarrhea Time Seen by Provider: 12/09/22 18:40 Source: patient, RN notes reviewed, old records reviewed Mode of arrival: ambulatory Limitations: no limitations - History of Present Illness Initial comments: This a 42-year-old female who presents emergency department stating that she continues on her fourth day of having nausea and some vomiting. Patient states she was here Wednesday and the [employer] hasn't been working. Patient states she also had one episode of diarrhea on the way to her. Patient states she has some abdominal cramping patient denies fever chills per patient denies any dysuria hematuria urinary frequency. Patient denies any chest pain difficult breathing shortness of breath. - Related Data Home Medications Medication Instructions Recorded Confirmed Zonisamide [Zonegran] 300 mg PO HS 12/16/18 12/09/22 Montelukast [Singulair] 10 mg PO HS 12/16/19 12/09/22 Omeprazole 20 mg PO DAILY 12/16/19 12/09/22 allopurinoL [Zyloprim] 100 mg PO DAILY 12/16/19 12/09/22 Aspirin EC [Ecotrin Low Dose] 81 mg PO DAILY 04/12/20 12/09/22 calcium polycarbophiL [Fibercon] 1,250 mg PO BID PRN 09/04/20 12/09/22 Loratadine [Claritin] 10 mg PO DAILY 12/22/20 12/09/22 Albuterol Sulfate [Proair Hfa] 2 puff INHALATION RT-QID PRN 12/12/21 12/09/22 Cholecalciferol [Vitamin D3 (125 125 mcg PO DAILY 12/12/21 12/09/22 Mcg = 5000 Iu)] Docusate 250mg Cap 250 mg PO BID 12/12/21 12/09/22 Fenofibrate [Lofibra] 54 mg PO DAILY 12/12/21 12/09/22 Folic Acid 1 mg PO DAILY 12/12/21 12/09/22 Linaclotide [Linzess] 145 mcg PO DAILY 12/12/21 12/09/22 metFORMIN HCL [Glucophage] 1,000 mg PO BID 12/12/21 12/09/22 Poz-Tjdr-Slbih Acid 1 cap PO DAILY 08/05/22 12/09/22 [-U Capsule (formulary)] guaiFENesin-DM 100-10MG/5ML 10 ml PO Q6H PRN 08/05/22 12/09/22 [Robitussin DM] Aripiprazole Lauroxil [Aristada] 882 mg IM Q28D 11/21/22 12/09/22 Baclofen [Lioresal] 10 mg PO HS PRN 11/21/22 12/09/22 Bismuth Subsalicylate [Kaopectate] 524 mg PO Q6H PRN 11/21/22 12/09/22 Budesonide/Formoterol Fumarate 2 puff INHALATION RT-BID 11/21/22 12/09/22 [Symbicort 80-4.5 Mcg Inhaler] FLUoxetine HCL [PROzac] 20 mg PO DAILY 11/21/22 12/09/22 Fluticasone Nasal [place] [Flonase 1 spray EA NOSTRIL DAILY 11/21/22 12/09/22 Nasal [place]] Fluticasone Propionate 220 Mcg 2 puff INHALATION RT-BID 11/21/22 12/09/22 [Flovent 220 Mcg Inhaler] Furosemide [Lasix] 20 mg PO DAILY 11/21/22 12/09/22 Ibuprofen [Motrin] 400 mg PO BID PRN 11/21/22 12/09/22 Losartan Potassium 100 mg PO DAILY 11/21/22 12/09/22 Nystatin 100,000 Unit/gm Powd 1 applic TOPICAL BID PRN 11/21/22 12/09/22 [Mycostatin Powder] Nystatin 100,000Unit/gm Cream 1 applic TOPICAL BID PRN 11/21/22 12/09/22 [Mycostatin Cream] polyethylene glycoL 3350 [Miralax] 17 gm PO DAILY PRN 11/21/22 12/09/22 Clotrimazole Cream [Lotrimin Cream] 1 applic TOPICAL TID 12/07/22 12/09/22 Previous Rx's Medication Instructions Recorded Benztropine Mesylate [Cogentin] 1 mg PO BID PRN 30 Days #30 tab 08/10/22 Naltrexone HCl [Revia] 50 mg PO DAILY 30 Days #30 tab 08/31/22 Promethazine 6.25MG/5Ml [Phenergan 5 ml PO TID PRN #120 ml 11/11/22 Syrup] Ondansetron Odt [Zofran Odt] 4 mg PO Q8HR PRN #15 tab 12/07/22 Metoclopramide [Reglan] 5 mg PO ACHS #12 tab 12/09/22 Allergies Allergy/AdvReac Type Severity Reaction Status Date / Time Iodinated Contrast Media Allergy Anaphylaxis Verified 12/09/22 18:50 [Iodinated Contrast Media - IV Dye] lacosamide [From Vimpat] Allergy Anaphylaxis Verified 12/09/22 18:50 peanut Allergy Anaphylaxis Verified 12/09/22 18:50 Penicillins Allergy Anaphylaxis Verified 12/09/22 18:50 shellfish derived Allergy Anaphylaxis Verified 12/09/22 18:50 cephalexin monohydrate AdvReac Nausea & Verified 12/09/22 18:50 [From Keflex] Vomiting & Diarrhea trazodone AdvReac bp Verified 12/09/22 18:50 issues/dizziness Review of Systems ROS Statement: Those systems with pertinent positive or pertinent negative responses have been documented in the HPI. ROS Other: All systems not noted in ROS Statement are negative. Past Medical History Past Medical History: Asthma, Heart Failure, COPD, Fibromyalgia, GERD/Reflux, GI Bleed, Hypertension, Liver Disease, Osteoarthritis (OA), Pneumonia, Seizure Disorder, Skin Disorder Additional Past Medical History / Comment(s): Bronchitis, gestational diabetes, seizures with last one 09/03/20, sickle cell trait, liver cirrhosis, anemia, chrons, IBS, ulcerative colitis, lowr GI bleed, hemorrhoids, constipation, psoriasis, migraines, chronic low back and cervical pain, scoliosis, arhtritis in multiple joints, gout bilateral feet, History of Any Multi-Drug Resistant Organisms: None Reported Past Surgical History: Cholecystectomy, Orthopedic Surgery Additional Past Surgical History / Comment(s): L oophorectomy d/t cyst, D&C, colonoscopy, L carpal tunnel release, Past Anesthesia/Blood Transfusion Reactions: Motion Sickness, Postoperative Nausea & Vomiting (PONV) Past Psychological History: Anxiety, Bipolar, Depression, Schizophrenia Smoking Status: Former smoker Past Alcohol Use History: None Reported Past Drug Use History: Cocaine, Marijuana - Past Family History Mother History Unknown: Yes Family Medical History: Cancer Additional Family Medical History / Comment(s): Mother had breast cancer and metnal illness She is living. Father Family Medical History: Cancer Additional Family Medical History / Comment(s): Father is . He had agent orange exposure. He had liver cancer, bowel to brain cancer. General Exam - General Exam Comments Initial Comments: GENERAL: Patient is well-developed and well-nourished. Patient is nontoxic and well-hyd rated and is in no acute distress. ENT: Neck is soft and supple. No significant lymphadenopathy is noted. Oropharynx is clear. Moist mucous membranes. Neck has full range of motion without elicit ing any pain. EYES: The sclera were anicteric and conjunctiva were pink and moist. Extraocular m ovements were intact and pupils were equal round and reactive to light. Eyelids were unremarkable. PULMONARY: Unlabored respirations. Good breath sounds bilaterally. No audible rales rhonchi or wheezing was noted. CARDIOVASCULAR: There is a regular rate and rhythm without any murmurs gallops or rubs. ABDOMEN: Soft and nontender with normal bowel sounds. SKIN: Skin is clear with no lesions or rashes and otherwise unremarkable. NEUROLOGIC: Patient is alert and oriented x3. Cranial nerves II through XII are grossly intact. Motor and sensory are also intact. Normal speech, volume and content. Symmetrical smile. MUSCULOSKELETAL: Normal extremities with adequate strength and full range of motion. LYMPHATICS: No significant lymphadenopathy is noted PSYCHIATRIC: Normal psychiatric evaluation. Limitations: no limitations Course Vital Signs 12/09/22 17:16 Temperature 98 F Pulse Rate 71 Respiratory 16 Rate Blood Pressure 124/66 O2 Sat by Pulse 97 Oximetry Medical Decision Making - Medical Decision Making Was pt. sent in by a medical professional or institution (, PA, ACCOUNTS RECEIVABLE BOOKKEEPER, urgent care, hospital, or jail...) When possible be specific @ -No Did you speak to anyone other than the patient for history (EMS, parent, family, police, friend...)? What history was obtained from this source @ -No Did you review nursing and triage notes (agree or disagree)? Why? @ -I reviewed and agree with nursing and triage notes Were old charts reviewed (outside hosp., previous admission, EMS record, old EKG, old radiological studies, urgent care reports/EKG's, jail records)? Report findings @ -No old charts were reviewed Differential Diagnosis (chest pain, altered mental status, abdominal pain women, abdominal pain men, vaginal bleeding, weakness, fever, dyspnea, syncope, headache, dizziness, GI bleed, back pain, seizure, CVA, palpatations, mental health, musculoskeletal)? @ - Differential Abdominal Pain Women: Appendicitis, Cholecystitis, diverticulosis, ischemic bowel, pancreatitis, hepatitis, UTI, gastroenteritis, AAA, incarcerated hernia, bowel obstruction, constipation, inflammatory bowel, hepatitis, peptic ulcer disease, splenic infarction, perforated viscus, vulvitis, ovarian torsion, PID, kidney stone, placenta abruption, this is not meant to be an all-inclusive list EKG interpreted by me (3pts min.). @ -As above X-rays interpreted by me (1pt min.). @ -None done CT interpreted by me (1pt min.). @ -None done U/S interpreted by me (1pt. min.). @ -None done What testing was considered but not performed or refused? (CT, X-rays, U/S, la bs)? Why? @ -None What meds were considered but not given or refused? Why? @ -None Did you discuss the management of the patient with other professionals (professionals i.e. , PA, ACCOUNTS RECEIVABLE BOOKKEEPER, lab, RT, psych nurse, social welfare clerk, marine engine machinist apprentice, teacher, disabilities services officer, case operator)? Give summary @ -No Was smoking cessation discussed for >3mins.? @ -No Was critical care preformed (if so, how long)? @ -No Were there social determinants of health that impacted care today? How? (Homelessness, low income, unemployed, alcoholism, drug addiction, transportation, low edu. Level, literacy, decrease access to med. care, senior living, rehab)? @ -No Was there de-escalation of care discussed even if they declined (Discuss DNR or withdrawal of care, Hospice)? DNR status @ -No What co-morbidities impacted this encounter? (DM, HTN, Smoking, COPD, CAD, Cancer, CVA, ARF, Chemo, Hep., AIDS, mental health diagnosis, sleep apnea, morbid obesity)? @ -None Was patient admitted / discharged? Hospital course, mention meds given and route, prescriptions, significant lab abnormalities, going to OR and other pertinent info. @ -Patient was comfortable throughout her ED course she had no diarrhea and no vomiting. Patient was given Reglan in the hospital and she'll be sent home on Reglan. One pack and reevaluate her belly was nontender as it was when I initially saw her and again she was in no distress sitting there comfortably in the bed Undiagnosed new problem with uncertain prognosis? @ -No Drug Therapy requiring intensive monitoring for toxicity (Heparin, Nitro, Insulin, Cardizem)? @ -No Were any procedures done? @ -No Diagnosis/symptom? @ -Gastroenteritis Acute, or Chronic, or Acute on Chronic? @ -Acute Uncomplicated (without systemic symptoms) or Complicated (systemic symptoms)? @ -Uncomplicated Side effects of treatment? @ -No Exacerbation, Progression, or Severe Exacerbation? @ -No Poses a threat to life or bodily function? How? (Chest pain, [place], [place], pneumonia, PE, COPD, DKA, ARF, appy, cholecystitis, CVA, Diverticulitis, Homicidal, Suicidal, threat to staff... and all critical care pts) @ -No - Lab Data Result diagrams: 12/09/22 19:42 Lab Results 12/09/22 Range/Units 19:42 WBC 8.9 (3.8-10.6) k/uL RBC 4.67 (3.80-5.40) m/uL Hgb 12.2 (11.4-16.0) gm/dL Hct 40.0 (34.0-46.0) % MCV 85.7 (80.0-100.0) fL MCH 26.0 (25.0-35.0) pg MCHC 30.4 L (31.0-37.0) g/dL RDW 15.8 H (11.5-15.5) % Plt Count 227 (150-450) k/uL MPV 7.0 Neutrophils % 61 % Lymphocytes % 27 % Monocytes % 5 % Eosinophils % 4 % Basophils % 0 % Neutrophils # 5.4 (1.3-7.7) k/uL Lymphocytes # 2.4 (1.0-4.8) k/uL Monocytes # 0.5 (0-1.0) k/uL Eosinophils # 0.4 (0-0.7) k/uL Basophils # 0.0 (0-0.2) k/uL Hypochromasia Slight Disposition Clinical Impression: Gastroenteritis Disposition: HOME SELF-CARE Condition: Good Instructions (If sedation given, give patient instructions): Gastroenteritis (ED) Prescriptions: Metoclopramide [Reglan] 5 mg PO ACHS #12 tab Is patient prescribed a controlled substance at d/c from ED?: No Referrals: Evelyn Blas MD [Primary Care Provider] - 1-2 days Time of Disposition: 20:18
[2022-12-09 19:55] LABS: Basophils % (A) 0 %; Eosinophils # (A) 0.4 k/uL (0-0.7); Eosinophils % (A) 4 %; HGB 12.2 gm/dL (11.4-16.0); Hypochromasia Slight; Lymphocytes # (A) 2.4 k/uL (1.0-4.8); Lymphocytes % (A) 27 %; MCHC 30.4 g/dL (31.0-37.0); MCV 85.7 fL (80.0-100.0); Monocytes # (A) 0.5 k/uL (0-1.0); Monocytes % (A) 5 %; Neutrophils # (A) 5.4 k/uL (1.3-7.7); Neutrophils % (A) 61 %; Platelet Count 227 k/uL (150-450); RBC 4.67 m/uL (3.80-5.40); RDW 15.8 % (11.5-15.5); WBC 8.9 k/uL (3.8-10.6)
[2022-12-09 20:08] LABS: ALT 56 U/L (4-34); African American GFR (CKD) >90 (>60 ml/min/1.73 sqM); Albumin 3.5 g/dL (3.5-5.0); Anion Gap 8 mmol/L; Blood Urea Nitrogen 11 mg/dL (7-17); Calcium 8.3 mg/dL (8.4-10.2); Carbon Dioxide 26 mmol/L (22-30); Chloride 106 mmol/L (98-107); Glucose 117 mg/dL (74-99); Non-African American GFR(CKD) >90 (>60 ml/min/1.73 sqM); Sodium 140 mmol/L (137-145); Total Bilirubin 0.3 mg/dL (0.2-1.3); Total Protein 6.5 g/dL (6.3-8.2)
[2022-12-09 20:18] LABS: AST 54 U/L (14-36); Alkaline Phosphatase 77 U/L (38-126); Potassium 4.1 mmol/L (3.5-5.1)
[2022-12-09] MEDS ORDERED: DIPHENOX-ATROP STARTER PACK 8 TAB BTL PO STA (20:32)
[2022-12-09 21:08] VITALS: BP 128/87; PULSE 78; RESP 18; TEMP 98
== END 2022-12-09 21:08 | disposition home or self-care (01) ==
LOC: EC 16:53
DX: K52.9 Noninfective gastroenteritis and colitis, unspecified (principal); I11.0 Hypertensive heart disease with heart failure; I50.9 Heart failure, unspecified; J44.9 Chronic obstructive pulmonary disease, unspecified; K21.9 Gastro-esophageal reflux disease without esophagitis; M19.90 Unspecified osteoarthritis, unspecified site; F41.9 Anxiety disorder, unspecified; F31.9 Bipolar disorder, unspecified; F12.90 Cannabis use, unspecified, uncomplicated; F14.10 Cocaine abuse, uncomplicated; Z87.891 Personal history of nicotine dependence; Z91.041 Radiographic dye allergy status; Z91.010 Allergy to peanuts; Z88.0 Allergy status to penicillin; Z91.013 Allergy to seafood; Z88.6 Allergy status to analgesic agent; Z88.8 Allergy status to other drugs, medicaments and biological substances; Z79.51 Long term (current) use of inhaled steroids; Z79.899 Other long term (current) drug therapy; Z79.82 Long term (current) use of aspirin; Z79.1 Long term (current) use of non-steroidal anti-inflammatories (NSAID)
CPT/HCPCS: 36415; 80053; 85025; 99284; 96374; J2765

== ENCOUNTER 2022-12-10 10:56 | Emergency (ER) | payer OTHER ==
[2022-12-10 11:27] VITALS: TEMP 98.4
[2022-12-10] MEDS ORDERED: ONDANSETRON 4 MG/2 ML VIAL IVP STA (12:18)
[2022-12-10] MEDS ORDERED: SODIUM CHLORIDE 0.9% 1,000 ML IV ONE (12:18)
--- NOTE | 2022-12-10 12:46 | ED ---
General Adult HPI - General Chief complaint: Recheck/Abnormal Lab/Rx Stated complaint: abn labs Time Seen by Provider: 12/10/22 11:22 Source: patient, RN notes reviewed Mode of arrival: ambulatory - History of Present Illness Initial comments: 42-year-old female with no significant past medical history presents to the emergency department with a chief complaint of abnormal labs. Patient reports that she received a call from [facility] with a positive blood culture result. Patient offers no specific complaints at today's visit. She denies any fever, fatigue, chills, nausea, vomiting, dysuria, abdominal pain, chest pain, shortness of breath. - Related Data Home Medications Medication Instructions Recorded Confirmed Zonisamide [Zonegran] 300 mg PO HS 12/16/18 12/09/22 Montelukast [Singulair] 10 mg PO HS 12/16/19 12/09/22 Omeprazole 20 mg PO DAILY 12/16/19 12/09/22 allopurinoL [Zyloprim] 100 mg PO DAILY 12/16/19 12/09/22 Aspirin EC [Ecotrin Low Dose] 81 mg PO DAILY 04/12/20 12/09/22 calcium polycarbophiL [Fibercon] 1,250 mg PO BID PRN 09/04/20 12/09/22 Loratadine [Claritin] 10 mg PO DAILY 12/22/20 12/09/22 Albuterol Sulfate [Proair Hfa] 2 puff INHALATION RT-QID PRN 12/12/21 12/09/22 Cholecalciferol [Vitamin D3 (125 125 mcg PO DAILY 12/12/21 12/09/22 Mcg = 5000 Iu)] Docusate 250mg Cap 250 mg PO BID 12/12/21 12/09/22 Fenofibrate [Lofibra] 54 mg PO DAILY 12/12/21 12/09/22 Folic Acid 1 mg PO DAILY 12/12/21 12/09/22 Linaclotide [Linzess] 145 mcg PO DAILY 12/12/21 12/09/22 metFORMIN HCL [Glucophage] 1,000 mg PO BID 12/12/21 12/09/22 Spf-Abhr-Nnkds Acid 1 cap PO DAILY 08/05/22 12/09/22 [-U Capsule (formulary)] guaiFENesin-DM 100-10MG/5ML 10 ml PO Q6H PRN 08/05/22 12/09/22 [Robitussin DM] Aripiprazole Lauroxil [Aristada] 882 mg IM Q28D 11/21/22 12/09/22 Baclofen [Lioresal] 10 mg PO HS PRN 11/21/22 12/09/22 Bismuth Subsalicylate [Kaopectate] 524 mg PO Q6H PRN 11/21/22 12/09/22 Budesonide/Formoterol Fumarate 2 puff INHALATION RT-BID 11/21/22 12/09/22 [Symbicort 80-4.5 Mcg Inhaler] FLUoxetine HCL [PROzac] 20 mg PO DAILY 11/21/22 12/09/22 Fluticasone Nasal [place] [Flonase 1 spray EA NOSTRIL DAILY 11/21/22 12/09/22 Nasal [place]] Fluticasone Propionate 220 Mcg 2 puff INHALATION RT-BID 11/21/22 12/09/22 [Flovent 220 Mcg Inhaler] Furosemide [Lasix] 20 mg PO DAILY 11/21/22 12/09/22 Ibuprofen [Motrin] 400 mg PO BID PRN 11/21/22 12/09/22 Losartan Potassium 100 mg PO DAILY 11/21/22 12/09/22 Nystatin 100,000 Unit/gm Powd 1 applic TOPICAL BID PRN 11/21/22 12/09/22 [Mycostatin Powder] Nystatin 100,000Unit/gm Cream 1 applic TOPICAL BID PRN 11/21/22 12/09/22 [Mycostatin Cream] polyethylene glycoL 3350 [Miralax] 17 gm PO DAILY PRN 11/21/22 12/09/22 Clotrimazole Cream [Lotrimin Cream] 1 applic TOPICAL TID 12/07/22 12/09/22 Previous Rx's Medication Instructions Recorded Benztropine Mesylate [Cogentin] 1 mg PO BID PRN 30 Days #30 tab 08/10/22 Naltrexone HCl [Revia] 50 mg PO DAILY 30 Days #30 tab 08/31/22 Promethazine 6.25MG/5Ml [Phenergan 5 ml PO TID PRN #120 ml 11/11/22 Syrup] Ondansetron Odt [Zofran Odt] 4 mg PO Q8HR PRN #15 tab 12/07/22 Metoclopramide [Reglan] 5 mg PO ACHS #12 tab 12/09/22 Allergies Allergy/AdvReac Type Severity Reaction Status Date / Time Iodinated Contrast Media Allergy Anaphylaxis Verified 12/10/22 11:13 [Iodinated Contrast Media - IV Dye] lacosamide [From Vimpat] Allergy Anaphylaxis Verified 12/10/22 11:13 peanut Allergy Anaphylaxis Verified 12/10/22 11:13 Penicillins Allergy Anaphylaxis Verified 12/10/22 11:13 shellfish derived Allergy Anaphylaxis Verified 12/10/22 11:13 cephalexin monohydrate AdvReac Nausea & Verified 12/10/22 11:13 [From Keflex] Vomiting & Diarrhea trazodone AdvReac bp Verified 12/10/22 11:13 issues/dizziness Review of Systems ROS Statement: Those systems with pertinent positive or pertinent negative responses have been documented in the HPI. ROS Other: All systems not noted in ROS Statement are negative. Past Medical History Past Medical History: Asthma, Heart Failure, COPD, Fibromyalgia, GERD/Reflux, GI Bleed, Hypertension, Liver Disease, Osteoarthritis (OA), Pneumonia, Seizure Disorder, Skin Disorder Additional Past Medical History / Comment(s): Bronchitis, gestational diabetes, seizures with last one 09/03/20, sickle cell trait, liver cirrhosis, anemia, chrons, IBS, ulcerative colitis, lowr GI bleed, hemorrhoids, constipation, psoriasis, migraines, chronic low back and cervical pain, scoliosis, arhtritis in multiple joints, gout bilateral feet, History of Any Multi-Drug Resistant Organisms: None Reported Past Surgical History: Cholecystectomy, Orthopedic Surgery Additional Past Surgical History / Comment(s): L oophorectomy d/t cyst, D&C, colonoscopy, L carpal tunnel release, Past Anesthesia/Blood Transfusion Reactions: Motion Sickness, Postoperative Nausea & Vomiting (PONV) Past Psychological History: Anxiety, Bipolar, Depression, Schizophrenia Smoking Status: Former smoker Past Alcohol Use History: None Reported Past Drug Use History: Cocaine, Marijuana - Past Family History Mother History Unknown: Yes Family Medical History: Cancer Additional Family Medical History / Comment(s): Mother had breast cancer and metnal illness She is living. Father Family Medical History: Cancer Additional Family Medical History / Comment(s): Father is . He had agent orange exposure. He had liver cancer, bowel to brain cancer. General Exam - General Exam Comments Initial Comments: General: Alert, in no acute distress, Patient is afebrile Head: atraumatic normocephalic. Eyes PERRL, EOMI intact, mucous membranes moist Respiratory: Lungs clear to auscultation bilaterally Cardiovascular: Heart rate regular rate and rhythm Abdominal: Soft without guarding or rebound Extremities: Normal inspection with full range of motion and normal capillary refill Neuroogic: alert and oriented 3, CN II-XII intact, able to ambulate with steady gait Skin: warm dry and intact with normal color Course Vital Signs 12/10/22 12/10/22 12/10/22 11:10 11:24 12:52 Temperature 98.3 F 98.4 F Pulse Rate 74 63 68 Respiratory 18 20 16 Rate Blood Pressure 155/79 113/64 130/68 O2 Sat by Pulse 98 95 98 Oximetry Medical Decision Making - Medical Decision Making Was pt. sent in by a medical professional or institution (, PA, COLLAR TAILOR, urgent care, hospital, or skilled nursing...) When possible be specific @ -[No] Did you speak to anyone other than the patient for history (EMS, parent, family, police, friend...)? What history was obtained from this source @ -[No] Did you review nursing and triage notes (agree or disagree)? Why? @ -[I reviewed and agree with nursing and triage notes] Were old charts reviewed (outside hosp., previous admission, EMS record, old EKG, old radiological studies, urgent care reports/EKG's, skilled nursing records)? Report findings @ -[No old charts were reviewed] Differential Diagnosis (chest pain, altered mental status, abdominal pain women, abdominal pain men, vaginal bleeding, weakness, fever, dyspnea, syncope, headache, dizziness, GI bleed, back pain, seizure, CVA, palpatations, mental health, musculoskeletal)? @ -[not applicable] EKG interpreted by me (3pts min.). @ -[As above] X-rays interpreted by me (1pt min.). @ -[None done] CT interpreted by me (1pt min.). @ -[None done] U/S interpreted by me (1pt. min.). @ -[None done] What testing was considered but not performed or refused? (CT, X-rays, U/S, labs)? Why? @ -[None] What meds were considered but not given or refused? Why? @ -[None] Did you discuss the management of the patient with other professionals (professionals i.e. , PA, COLLAR TAILOR, lab, RT, psych nurse, school social worker, administrative judge, teacher, contact officer, manager of case)? Give summary @ -[No] Was smoking cessation discussed for >3mins.? @ -[No] Was critical care preformed (if so, how long)? @ -[No] Were there social determinants of health that impacted care today? How? (H omelessness, low income, unemployed, alcoholism, drug addiction, transportation, low edu. Level, literacy, decrease access to med. care, prison, rehab)? @ -[No] Was there de-escalation of care discussed even if they declined (Discuss DNR or withdrawal of care, Hospice)? DNR status @ -[No] What co-morbidities impacted this encounter? (DM, HTN, Smoking, COPD, CAD, Cancer, CVA, ARF, Chemo, Hep., AIDS, mental health diagnosis, sleep apnea, morbid obesity)? @ -[None] Was patient admitted / discharged? Hospital course, mention meds given and route, prescriptions, significant lab abnormalities, going to OR and other pertinent info. @ -[Discharged. This is a 42-year-old female presents the emergency department with abnormal labs.. Patient had a thorough history and physical exam performed while in the ED. Physical exam is essentially unremarkable. He art rate regular rate and rhythm, lung sounds clear to auscultation bilaterally abdomen is soft and nontender.. I discussed the results in detail with the patient verbalized understanding. Return precautions were discussed at length. Discharged in stable condition. Case discussed with Dr. Bao BENOIT who agrees with plan of care Undiagnosed new problem with uncertain prognosis? @ -[No] Drug Therapy requiring intensive monitoring for toxicity (Heparin, Nitro, Insulin, Cardizem)? @ -[No] Were any procedures done? @ -[No] Diagnosis/symptom? @ -abnormal labs Acute, or Chronic, or Acute on Chronic? @ -acute Uncomplicated (without systemic symptoms) or Complicated (systemic symptoms)? @ -uncomplicated Side effects of treatment? @ -[No] Exacerbation, Progression, or Severe Exacerbation? @ -[No] Poses a threat to life or bodily function? How? (Chest pain, [place], [place], pneumonia, PE, COPD, DKA, ARF, appy, cholecystitis, CVA, Diverticulitis, Homicidal, Suicidal, threat to staff... and all critical care pts) @ -low likelihood ] Disposition Clinical Impression: Abnormal laboratory test Disposition: HOME SELF-CARE Condition: Stable Additional Instructions: Please return to the nearest emergency department if symptoms worsen or persist Is patient prescribed a controlled substance at d/c from ED?: No Referrals: Evelyn Blas MD [Primary Care Provider] - 1-2 days Time of Disposition: 12:45
[2022-12-10 12:54] VITALS: BP 130/68; PULSE 68; RESP 16
== END 2022-12-10 12:57 | disposition home or self-care (01) ==
LOC: EC 10:56
DX: R79.9 Abnormal finding of blood chemistry, unspecified (principal); I11.0 Hypertensive heart disease with heart failure; I50.9 Heart failure, unspecified; J44.9 Chronic obstructive pulmonary disease, unspecified; K21.9 Gastro-esophageal reflux disease without esophagitis; F31.9 Bipolar disorder, unspecified; F41.9 Anxiety disorder, unspecified; M10.9 Gout, unspecified; M19.90 Unspecified osteoarthritis, unspecified site; M79.7 Fibromyalgia; F20.9 Schizophrenia, unspecified; G40.909 Epilepsy, unspecified, not intractable, without status epilepticus; Z79.51 Long term (current) use of inhaled steroids; Z79.82 Long term (current) use of aspirin; F14.90 Cocaine use, unspecified, uncomplicated; F12.90 Cannabis use, unspecified, uncomplicated; Z87.891 Personal history of nicotine dependence; Z88.0 Allergy status to penicillin; Z88.1 Allergy status to other antibiotic agents; Z88.8 Allergy status to other drugs, medicaments and biological substances; Z91.010 Allergy to peanuts; Z91.013 Allergy to seafood; Z91.041 Radiographic dye allergy status; Z90.49 Acquired absence of other specified parts of digestive tract
CPT/HCPCS: 99283

== ENCOUNTER 2023-02-22 18:22 | Emergency (ER) | payer OTHER ==
[2023-02-22 18:48] VITALS: RESP 18
[2023-02-22] MEDS ORDERED: SODIUM CHLORIDE 0.9% 1,000 ML IV ONE (20:25)
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
[2023-02-22 21:36] LABS: Basophils # (A) 0.1 k/uL (0-0.2); Basophils % (A) 0 %; Eosinophils # (A) 0.8 k/uL (0-0.7); Eosinophils % (A) 4 %; HCT 39.3 % (34.0-46.0); HGB 12.5 gm/dL (11.4-16.0); Lymphocytes # (A) 2.7 k/uL (1.0-4.8); Lymphocytes % (A) 15 %; MCH 27.6 pg (25.0-35.0); MCHC 31.9 g/dL (31.0-37.0); MCV 86.6 fL (80.0-100.0); Mean Platelet Volume 7.6; Monocytes # (A) 0.5 k/uL (0-1.0); Monocytes % (A) 3 %; Neutrophils # (A) 13.8 k/uL (1.3-7.7); Neutrophils % (A) 77 %; Platelet Count 251 k/uL (150-450); RBC 4.54 m/uL (3.80-5.40); RDW 15.4 % (11.5-15.5)
[2023-02-22 22:38] LABS: ALT 32 U/L (4-34); AST 30 U/L (14-36); African American GFR (CKD) >90 (>60 ml/min/1.73 sqM); Alkaline Phosphatase 90 U/L (38-126); Anion Gap 6 mmol/L; Blood Urea Nitrogen 11 mg/dL (7-17); Calcium 7.9 mg/dL (8.4-10.2); Carbon Dioxide 22 mmol/L (22-30); Chloride 110 mmol/L (98-107); Glucose 97 mg/dL (74-99); Magnesium 1.6 mg/dL (1.6-2.3); Non-African American GFR(CKD) >90 (>60 ml/min/1.73 sqM); Potassium 3.6 mmol/L (3.5-5.1); Sodium 138 mmol/L (137-145); Total Bilirubin 0.3 mg/dL (0.2-1.3); Total Protein 6.1 g/dL (6.3-8.2)
[2023-02-22 23:42] VITALS: BP 105/71; PULSE 57; TEMP 98.7
== END 2023-02-22 23:42 | disposition home or self-care (01) ==
LOC: EC 18:22
DX: G40.909 Epilepsy, unspecified, not intractable, without status epilepticus (principal); I11.0 Hypertensive heart disease with heart failure; I50.9 Heart failure, unspecified; J44.9 Chronic obstructive pulmonary disease, unspecified; K21.9 Gastro-esophageal reflux disease without esophagitis; M19.90 Unspecified osteoarthritis, unspecified site; E78.5 Hyperlipidemia, unspecified; F31.9 Bipolar disorder, unspecified; F41.9 Anxiety disorder, unspecified; Z87.891 Personal history of nicotine dependence; F12.90 Cannabis use, unspecified, uncomplicated; Z91.041 Radiographic dye allergy status; Z88.0 Allergy status to penicillin; Z88.1 Allergy status to other antibiotic agents; Z91.013 Allergy to seafood; Z88.8 Allergy status to other drugs, medicaments and biological substances; Z79.82 Long term (current) use of aspirin; Z79.51 Long term (current) use of inhaled steroids; Z79.899 Other long term (current) drug therapy
CPT/HCPCS: 36415; 80053; 83735; 85025; 96360; 99284

== ENCOUNTER 2023-04-19 17:55 | Emergency (ER) | payer OTHER ==
[2023-04-19 18:49] VITALS: TEMP 97.8
[2023-04-19] MEDS ORDERED: KETOROLAC 15 MG/ML 1 ML VIAL IM STA (19:44)
[2023-04-19] MEDS ORDERED: ONDANSETRON ODT 4 MG TAB PO STA (19:44)
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
[2023-04-19] MEDS ORDERED: IBUPROFEN 600 MG STARTER PACK 4 TAB BTL PO STA (21:27)
[2023-04-19] MEDS ORDERED: ONDANSETRON 4 MG ODT STARTER PACK 2 TAB BTL PO STA (21:27)
[2023-04-19] MEDS ORDERED: ACET/COD 300 MG/30 MG STARTER PACK 6 TAB BTL PO STA (21:27)
[2023-04-19 21:38] VITALS: BP 137/73; PULSE 65; RESP 18
== END 2023-04-19 21:38 | disposition home or self-care (01) ==
LOC: EC 17:55
DX: S00.33XA Contusion of nose, initial encounter (principal); J45.909 Unspecified asthma, uncomplicated; I11.0 Hypertensive heart disease with heart failure; I50.9 Heart failure, unspecified; J44.9 Chronic obstructive pulmonary disease, unspecified; K21.9 Gastro-esophageal reflux disease without esophagitis; F14.90 Cocaine use, unspecified, uncomplicated; M19.90 Unspecified osteoarthritis, unspecified site; F41.9 Anxiety disorder, unspecified; F31.9 Bipolar disorder, unspecified; Z87.891 Personal history of nicotine dependence; F12.90 Cannabis use, unspecified, uncomplicated; Z79.1 Long term (current) use of non-steroidal anti-inflammatories (NSAID); Z79.51 Long term (current) use of inhaled steroids; Z79.82 Long term (current) use of aspirin; Z79.899 Other long term (current) drug therapy; Z88.0 Allergy status to penicillin; Z91.013 Allergy to seafood; Z88.1 Allergy status to other antibiotic agents; Z91.010 Allergy to peanuts; Z91.041 Radiographic dye allergy status; Z88.8 Allergy status to other drugs, medicaments and biological substances; Y04.8XXA Assault by other bodily force, initial encounter
CPT/HCPCS: 70486; 70450; 99284; 96372; J1885; S0119

== ENCOUNTER 2023-05-13 05:24 | Emergency (ER) | payer OTHER ==
--- NOTE | 2023-05-13 06:51 | ED ---
URI HPI - General Chief Complaint: Upper Respiratory Infection Stated Complaint: N/V, Cough Time Seen by Provider: 05/13/23 06:45 Source: patient, RN notes reviewed Mode of arrival: ambulatory Limitations: no limitations - History of Present Illness Initial Comments: This is a 43-year-old female who presents to the emergency department for coughing, congestion, nausea, and vomiting. Symptoms started 2 days ago. Denies any sick contacts. Reports some associated shortness of breath. Denies any chest pain. Additionally, states that over the last week, she started throwing up 10-15 minutes after she eats anything. She has associated epigastric pain. Patient is concerned about her current living environment and states that her guardian is not letting her have cough syrup or have anything to help manage her symptoms. They've also not allowed her to change her clothes and she states that she has not eaten in 7-8 days and needs money for this. She is requesting information for adult protective services, however she also states that she already has an open case with them. Denies any fevers, chills, sore throat, chest pain, palpitations, diarrhea, back pain, or headaches. MD Complaint: cough, nasal congestion - Related Data Home Medications Medication Instructions Recorded Confirmed Montelukast [Singulair] 10 mg PO HS 12/16/19 02/17/23 Omeprazole 20 mg PO DAILY 12/16/19 02/17/23 allopurinoL [Zyloprim] 100 mg PO DAILY 12/16/19 02/17/23 Aspirin EC [Ecotrin Low Dose] 81 mg PO DAILY 04/12/20 02/17/23 calcium polycarbophiL [Fibercon] 1,250 mg PO BID PRN 09/04/20 02/17/23 Loratadine [Claritin] 10 mg PO DAILY 12/22/20 02/17/23 Albuterol Sulfate [Proair Hfa] 2 puff INHALATION RT-QID PRN 12/12/21 02/17/23 Cholecalciferol [Vitamin D3 (125 125 mcg PO DAILY 12/12/21 02/17/23 Mcg = 5000 Iu)] Docusate 250mg Cap 250 mg PO BID 12/12/21 02/17/23 Fenofibrate [Lofibra] 54 mg PO DAILY 12/12/21 02/17/23 Folic Acid 1 mg PO DAILY 12/12/21 02/17/23 Linaclotide [Linzess] 145 mcg PO DAILY 12/12/21 02/17/23 Hgm-Igli-Plmxz Acid 1 cap PO DAILY 08/05/22 02/17/23 [-U Capsule (formulary)] guaiFENesin-DM 100-10MG/5ML 10 ml PO Q6H PRN 08/05/22 02/17/23 [Robitussin DM] Baclofen [Lioresal] 10 mg PO HS PRN 11/21/22 02/17/23 Bismuth Subsalicylate [Kaopectate] 524 mg PO Q6H PRN 11/21/22 02/17/23 Budesonide/Formoterol Fumarate 2 puff INHALATION RT-BID 11/21/22 02/17/23 [Symbicort 80-4.5 Mcg Inhaler] Fluticasone Nasal [place] [Flonase 1 spray EA NOSTRIL DAILY 11/21/22 02/17/23 Nasal [place]] Fluticasone Propionate 220 Mcg 2 puff INHALATION RT-BID 11/21/22 02/17/23 [Flovent 220 Mcg Inhaler] Furosemide [Lasix] 20 mg PO DAILY 11/21/22 02/17/23 Losartan Potassium 100 mg PO DAILY 11/21/22 02/17/23 Nystatin 100,000 Unit/gm Powd 1 applic TOPICAL BID PRN 11/21/22 02/17/23 [Mycostatin Powder] Nystatin 100,000Unit/gm Cream 1 applic TOPICAL BID PRN 11/21/22 02/17/23 [Mycostatin Cream] polyethylene glycoL 3350 [Miralax] 17 gm PO DAILY PRN 11/21/22 02/17/23 Clotrimazole Cream [Lotrimin Cream] 1 applic TOPICAL TID 12/07/22 02/17/23 Previous Rx's Medication Instructions Recorded Promethazine 6.25MG/5Ml [Phenergan 5 ml PO TID PRN #120 ml 11/11/22 Syrup] Ondansetron Odt [Zofran ODT] 4 mg PO Q8HR PRN #15 tab 12/07/22 Metoclopramide [Reglan] 5 mg PO ACHS #12 tab 12/09/22 ARIPiprazole [Abilify] 10 mg PO HS 30 Days #30 tab 02/22/23 DULoxetine HCL [Cymbalta] 60 mg PO DAILY 30 Days #30 cap 02/22/23 Naltrexone HCl [Revia] 50 mg PO DAILY 30 Days #30 tab 02/22/23 Zonisamide [Zonegran] 300 mg PO HS 30 Days #90 cap 02/22/23 metFORMIN HCL [Glucophage] 1,000 mg PO BID 15 Days #60 tab 02/22/23 Azithromycin [Zithromax] 250 mg PO DIRECTED #6 tab 05/13/23 Ondansetron Odt [Zofran Odt] 4 mg PO Q8HR PRN #15 tab 05/13/23 Promethazine/Dextromethorphan 5 ml PO Q4-6H PRN #473 ml 05/13/23 [Promethazine-Dm Syrup] Allergies Allergy/AdvReac Type Severity Reaction Status Date / Time Iodinated Contrast Media Allergy Anaphylaxis Verified 05/13/23 05:43 [Iodinated Contrast Media - IV Dye] lacosamide [From Vimpat] Allergy Anaphylaxis Verified 05/13/23 05:43 peanut Allergy Anaphylaxis Verified 05/13/23 05:43 Penicillins Allergy Anaphylaxis Verified 05/13/23 05:43 shellfish derived Allergy Anaphylaxis Verified 05/13/23 05:43 cephalexin monohydrate AdvReac Nausea & Verified 05/13/23 05:43 [From Keflex] Vomiting & Diarrhea trazodone AdvReac bp Verified 05/13/23 05:43 issues/dizziness Review of Systems ROS Statement: Those systems with pertinent positive or pertinent negative responses have been documented in the HPI. ROS Other: All systems not noted in ROS Statement are negative. Past Medical History Past Medical History: Asthma, Heart Failure, COPD, Fibromyalgia, GERD/Reflux, GI Bleed, Hypertension, Liver Disease, Osteoarthritis (OA), Pneumonia, Seizure Disorder, Skin Disorder Additional Past Medical History / Comment(s): Bronchitis, gestational diabetes, seizures with last one 09/03/20, sickle cell trait, liver cirrhosis, anemia, chrons, IBS, ulcerative colitis, lowr GI bleed, hemorrhoids, constipation, psoriasis, migraines, chronic low back and cervical pain, scoliosis, arhtritis in multiple joints, gout bilateral feet, History of Any Multi-Drug Resistant Organisms: None Reported Past Surgical History: Cholecystectomy, Orthopedic Surgery Additional Past Surgical History / Comment(s): L oophorectomy d/t cyst, D&C, co lonoscopy, L carpal tunnel release, Past Anesthesia/Blood Transfusion Reactions: Motion Sickness, Postoperative Nausea & Vomiting (PONV) Past Psychological History: Anxiety, Bipolar, Depression, Schizophrenia Smoking Status: Former smoker Past Alcohol Use History: None Reported Past Drug Use History: None Reported - Past Family History Mother History Unknown: Yes Family Medical History: Cancer Additional Family Medical History / Comment(s): Mother had breast cancer and metnal illness She is living. Father Family Medical History: Cancer Additional Family Medical History / Comment(s): Father is . He had agent orange exposure. He had liver cancer, bowel to brain cancer. General Exam - General Exam Comments Initial Comments: Visual Physical Exam Vital signs reviewed General: Well-appearing, nontoxic, no acute distress. Head: Normocephalic, atraumatic Eyes: PERRLA, EOMI ENT: Airway patent Chest: Nonlabored breathing Skin: No visual rash, normal skin tone Neuro: Alert and oriented 3 Musculoskeletal: No gross abnormalities I performed the QuickNote portion of this chart. Signed Kathe Garcia PA-C. Limitations: no limitations General appearance: alert, in no apparent distress Head exam: Present: atraumatic, normocephalic, normal inspection Respiratory exam: Present: normal lung sounds bilaterally. Absent: respiratory distress, wheezes, rales, rhonchi, stridor Cardiovascular Exam: Present: regular rate, normal rhythm, normal heart sounds. Absent: systolic murmur, diastolic murmur, rubs, gallop, clicks GI/Abdominal exam: Present: soft, normal bowel sounds. Absent: distended, tenderness Neurological exam: Present: alert, oriented X3, CN II-XII intact Psychiatric exam: Present: normal affect, normal mood Skin exam: Present: warm, dry, intact, normal color. Absent: rash Course Vital Signs 05/13/23 05/13/23 05/13/23 05:43 08:25 08:30 Temperature Pulse Rate 58 L 62 62 Respiratory 18 Rate Blood Pressure 141/70 O2 Sat by Pulse 98 Oximetry 05/13/23 10:57 Temperature 98.3 F Pulse Rate 58 L Respiratory 16 Rate Blood Pressure 118/80 O2 Sat by Pulse 98 Oximetry Medical Decision Making - Medical Decision Making This is a 43-year-old female who presents to the emergency department for coughing, abdominal pain, and vomiting. Was pt. sent in by a medical professional or institution? @ -No Did you speak to anyone other than the patient for history? @ -No Did you review nursing and triage notes? @ -Yes, and I agree, it is accurate with regards to the patient's symptoms. Were old charts reviewed? @ -No Differential Diagnosis? @ -Differential Cough: Influenza, Covid, RSV, croup, allergic rhinitis, GERD, pneumonia, bronchitis, COPD, viral pharyngitis, streptococcal pharyngitis, this is not meant to be an all-inclusive list. EKG interpreted by me (3pts min.)? @ -Not obtained X-rays interpreted by me (1pt min.)? @ -Chest x-ray obtained. My interpretation identifies bilateral interstitial densities. CT interpreted by me (1pt min.)? @ -Not obtained U/S interpreted by me (1pt. min.)? @ -Not obtained What testing was considered but not performed? (CT, X-rays, U/S, labs)? Why? @ -None What meds were considered but not given? Why? @ -None Did you discuss the management of the patient with other professionals? @ -Yes, case management, who tried to contact the patient's guardian regarding the situation, and we were unable to reach them. Did you reconcile home meds? @ -No Was smoking cessation discussed for >3mins.? @ -No Was critical care preformed (if so, how long)? @ -No Were there social determinants of health that impacted care today? How? (Homelessness, low income, unemployed, alcoholism, drug addiction, transportation, low edu. Level, literacy, decrease access to med. care, assisted, rehab)? @ -No Was there de-escalation of care discussed even if they declined? (Discuss DNR or withdrawal of care, Hospice)? @ -No What co-morbidities impacted this encounter? (DM, HTN, Smoking, COPD, CAD, Cancer, CVA, Hep., AIDS, mental health diagnosis, sleep apnea, morbid obesity)? @ -Asthma, COPD, CHF, GERD Was patient admitted / discharged? @ -Discharged. Lab work obtained revealing leukocytosis and no other actionable findings. Covid, influenza, and RSV testing were negative. Chest x-ray reveals increased interstitial densities suggestive of an atypical or Covid pneumonia, bronchitis, or uncontrolled asthma. The patient's nausea was well controlled with IV fluids, Zofran, and Pepcid. She was given a breathing treatment with no improvement in symptoms. However, she was more so concerned about the coughing than the shortness of breath. Given the chest x-ray findings, she was given a prescription for azithromycin. For further management of symptoms, she was also given a prescription for promethazine DM cough syrup and Zofran with dosing instructions reviewed. We did offer the patient various food items in the emergency department, given her claims that she had not eaten in 7-8 days, however she was declining everything she was offered. Additionally, case management tried to reach her guardian regarding the patient's concerns, and we were unable to reach them despite multiple attempts. Patient also reportedly already has a case open with [employer] and she was given their contact information again. Patient discharged home in stable condition. Undiagnosed new problem with uncertain prognosis? @ -None Drug Therapy requiring intensive monitoring for toxicity (Heparin, Nitro, Insulin, Cardizem)? @ -None Were any procedures done? @ -None Diagnosis/symptom? @ -Pneumonia, nausea and vomiting Acute, or Chronic, or Acute on Chronic? @ -Acute Uncomplicated (without systemic symptoms) or Complicated (systemic symptoms)? @ -Uncomplicated Side effects of treatment? @ -None Exacerbation, Progression, or Severe Exacerbation] @ -Not applicable Poses a threat to life or bodily function? @ -No Return precautions reviewed in depth, the patient is instructed to return to the emergency department with any new, worsening, or concerning symptoms. Patient verbalized understanding. This case was discussed in detail with the attending ED physician, Dr. Gore. Presentation, findings, and treatment plan discussed in detail as well. - Lab Data Result diagrams: 05/13/23 08:11 05/13/23 09:10 Lab Results 05/13/23 05/13/23 05/13/23 Range/Units 05:46 08:11 09:10 WBC 14.2 H (3.8-10.6) k/uL RBC 4.93 (3.80-5.40) m/uL Hgb 13.7 (11.4-16.0) gm/dL Hct 42.7 (34.0-46.0) % MCV 86.7 (80.0-100.0) fL MCH 27.7 (25.0-35.0) pg MCHC 32.0 (31.0-37.0) g/dL RDW 15.3 (11.5-15.5) % Plt Count 193 (150-450) k/uL MPV 7.8 Neutrophils % 73 % Lymphocytes % 17 % Monocytes % 4 % Eosinophils % 5 % Basophils % 0 % Neutrophils # 10.4 H (1.3-7.7) k/uL Lymphocytes # 2.4 (1.0-4.8) k/uL Monocytes # 0.5 (0-1.0) k/uL Eosinophils # 0.7 (0-0.7) k/uL Basophils # 0.1 (0-0.2) k/uL Sodium 136 L (137-145) mmol/L Potassium 4.0 (3.5-5.1) mmol/L Chloride 102 (98-107) mmol/L Carbon Dioxide 25 (22-30) mmol/L Anion Gap 9 mmol/L BUN 13 (7-17) mg/dL Creatinine 0.69 (0.52-1.04) mg/dL Est GFR (CKD-EPI)AfAm >90 (>60 ml/min/1.73 sqM) Est GFR (CKD-EPI)NonAf >90 (>60 ml/min/1.73 sqM) Glucose 191 H (74-99) mg/dL Calcium 8.4 (8.4-10.2) mg/dL Total Bilirubin 0.3 (0.2-1.3) mg/dL AST 28 (14-36) U/L ALT 26 (4-34) U/L Alkaline Phosphatase 108 (38-126) U/L NT-Pro-B Natriuret Pep <20 pg/mL Total Protein 6.6 (6.3-8.2) g/dL Albumin 3.4 L (3.5-5.0) g/dL Amylase 57 (30-110) U/L Lipase 187 (23-300) U/L Influenza Type A (PCR) Not Detected (Not Detectd) Influenza Type B (PCR) Not Detected (Not Detectd) RSV (PCR) Not Detected (Not Detectd) SARS-CoV-2 (PCR) Not Detected (Not Detectd) - Radiology Data Radiology results: report reviewed, image reviewed Disposition Clinical Impression: Nausea and vomiting, Pneumonia Disposition: HOME SELF-CARE Instructions (If sedation given, give patient instructions): Acute Bronchitis (ED) Additional Instructions: Return to the emergency department with any new, worsening, or concerning symptoms. Take the antibiotic as prescribed for 5 days. You can take the cough medication every 4-6 hours as needed. You can also take the Zofran up to every 8 hours as needed for nausea and vomiting. Slowly advance your diet as tolerated and remain well-hydrated. Follow up with your primary care provider in 1-2 days. Prescriptions: Promethazine/Dextromethorphan [Promethazine-Dm Syrup] 5 ml PO Q4-6H PRN #473 ml PRN Reason: Cough Azithromycin [Zithromax] 250 mg PO DIRECTED #6 tab Ondansetron Odt [Zofran Odt] 4 mg PO Q8HR PRN #15 tab PRN Reason: Nausea And Vomiting Is patient prescribed a controlled substance at d/c from ED?: No Referrals: Evelyn Blas MD [Primary Care Provider] - 1-2 days
--- NOTE | 2023-05-13 07:12 | XR ---
EXAMINATION TYPE: XR chest 2V DATE OF EXAM: 05/13/2023 COMPARISON: 12/03/2022 HISTORY: 43-year-old female with cough and congestion TECHNIQUE: PA and lateral views FINDINGS: Low lung volumes and some crowded vascular markings. Increased interstitial density without chase con solidation or pleural effusion. IMPRESSION: Hypoventilatory changes. Increased interstitial densities bilaterally. Correlate to exclude underlyin g atypical or COVID pneumonias, bronchitis, or uncontrolled asthma.
[2023-05-13] MEDS ORDERED: ONDANSETRON 4 MG/2 ML VIAL IVP STA (07:48)
[2023-05-13] MEDS ORDERED: SODIUM CHLORIDE 0.9% 1,000 ML IV STA (07:48)
[2023-05-13] MEDS ORDERED: IPRATROPIUM-ALBUTEROL 3 ML NEB INHALATION STA (07:49)
[2023-05-13] MEDS ORDERED: FAMOTIDINE 20 MG/2 ML VIAL IV STA (07:54)
[2023-05-13 08:31] LABS: Basophils # (A) 0.1 k/uL (0-0.2); Basophils % (A) 0 %; Eosinophils # (A) 0.7 k/uL (0-0.7); Eosinophils % (A) 5 %; HCT 42.7 % (34.0-46.0); HGB 13.7 gm/dL (11.4-16.0); Lymphocytes # (A) 2.4 k/uL (1.0-4.8); Lymphocytes % (A) 17 %; MCH 27.7 pg (25.0-35.0); MCV 86.7 fL (80.0-100.0); Mean Platelet Volume 7.8; Monocytes # (A) 0.5 k/uL (0-1.0); Monocytes % (A) 4 %; Neutrophils # (A) 10.4 k/uL (1.3-7.7); Neutrophils % (A) 73 %; Platelet Count 193 k/uL (150-450); RBC 4.93 m/uL (3.80-5.40); RDW 15.3 % (11.5-15.5); WBC 14.2 k/uL (3.8-10.6)
[2023-05-13 09:41] LABS: ALT 26 U/L (4-34); AST 28 U/L (14-36); African American GFR (CKD) >90 (>60 ml/min/1.73 sqM); Albumin 3.4 g/dL (3.5-5.0); Alkaline Phosphatase 108 U/L (38-126); Amylase 57 U/L (30-110); Anion Gap 9 mmol/L; Blood Urea Nitrogen 13 mg/dL (7-17); Calcium 8.4 mg/dL (8.4-10.2); Carbon Dioxide 25 mmol/L (22-30); Chloride 102 mmol/L (98-107); Glucose 191 mg/dL (74-99); Lipase 187 U/L (23-300); Non-African American GFR(CKD) >90 (>60 ml/min/1.73 sqM); Sodium 136 mmol/L (137-145); Total Bilirubin 0.3 mg/dL (0.2-1.3); Total Protein 6.6 g/dL (6.3-8.2)
[2023-05-13 09:47] LABS: NT-Pro-B-Type Natriuretic Pept <20 pg/mL
[2023-05-13 11:03] VITALS: BP 118/80; PULSE 58; RESP 16; TEMP 98.3
== END 2023-05-13 10:59 | disposition home or self-care (01) ==
LOC: EC 05:24
DX: J18.9 Pneumonia, unspecified organism (principal); R11.2 Nausea with vomiting, unspecified; I11.0 Hypertensive heart disease with heart failure; I50.9 Heart failure, unspecified; J44.9 Chronic obstructive pulmonary disease, unspecified; K21.9 Gastro-esophageal reflux disease without esophagitis; M10.9 Gout, unspecified; G40.909 Epilepsy, unspecified, not intractable, without status epilepticus; F31.9 Bipolar disorder, unspecified; F41.9 Anxiety disorder, unspecified; F20.9 Schizophrenia, unspecified; Z20.822 Contact with and (suspected) exposure to COVID-19; Z79.82 Long term (current) use of aspirin; Z79.51 Long term (current) use of inhaled steroids; Z79.899 Other long term (current) drug therapy; Z88.0 Allergy status to penicillin; Z88.1 Allergy status to other antibiotic agents; Z91.010 Allergy to peanuts; Z91.041 Radiographic dye allergy status; Z91.013 Allergy to seafood; Z88.8 Allergy status to other drugs, medicaments and biological substances; Z87.891 Personal history of nicotine dependence; Z90.49 Acquired absence of other specified parts of digestive tract
CPT/HCPCS: 36415; 94640; 83880; 80053; 82150; 83690; 85025; 87636; 71046; 99284; 96374; 96375; 96361 ×3; J2405; J3490

== ENCOUNTER 2023-06-06 12:28 | Emergency (ER) | payer OTHER ==
[2023-06-06] MEDS ORDERED: HYDROcodone/APAP 5-325MG 1 EACH TAB PO STA (12:41)
[2023-06-06] MEDS ORDERED: LIDOCAINE 5% PATCH TOPICAL STA (12:41)
[2023-06-06] MEDS ORDERED: IBUPROFEN 800 MG TAB PO STA (12:41)
[2023-06-06 12:55] VITALS: BP 119/59; PULSE 54; RESP 18; TEMP 98.2
--- NOTE | 2023-06-06 13:21 | CT ---
EXAMINATION TYPE: CT lumbar spine wo con CT DLP: 1704.4 mGycm, Automated exposure control for dose reduction was used. DATE OF EXAM: 06/06/2023 1:10 PM COMPARISON: CT abdomen pelvis 08/06/2020. CLINICAL INDICATION:Female, 43 years old with history of pain; PHH, Fall down flight of stairs (10-15 ) yesterday TECHNIQUE: Multiple axial images were obtained from the midportion of T11 through the sacroiliac nidhi nts. Soft tissue and bone windows in coronal and sagittal planes were obtained and reviewed. FINDINGS: Alignment: There are 5 lumbar type vertebral bodies within normal alignment. Bone: No evidence of fracture is identified. Discs: Multilevel disc space narrowing with endplate sclerosis, vacuum disc disease, and anterior ost eophytosis. T12-L1: Right foraminal disc herniation with mild effacement of the anterior thecal sac. The left haley ral foramen is patent. L1-L2: No spinal canal or neural foraminal stenosis is identified. L2-L3: Broad-based disc bulge with mild effacement of anterior thecal sac. Bilateral facet arthropath y. Mild bilateral neural foraminal stenosis. L3-L4: Broad-based disc bulge with mild to moderate effacement of anterior thecal sac. Bilateral face t arthropathy. Mild to moderate bilateral neural foraminal stenosis. L4-L5: Broad-based disc bulge with mild effacement of anterior thecal sac. Bilateral facet arthropat hy. Mild bilateral neural foraminal stenosis. L5-S1: Central disc herniation with mild effacement of the anterior thecal sac. Bilateral facet arthr opathy. Mild to moderate bilateral neural foraminal stenosis. Other: Left renal cortical calcification. Postcholecystectomy changes. IMPRESSION: 1. No evidence for spinal fracture. 2. L5-S1 and T12-L1 disc herniations with mild central canal stenosis. 3. Mild multilevel degenerative disc disease and facet arthropathy as described above. Most pronounce d at L3-L4 with mild to moderate central canal stenosis.
--- NOTE | 2023-06-06 13:30 | ED ---
General Adult HPI - General Chief complaint: Back Pain/Injury Stated complaint: Back pain Time Seen by Provider: 06/06/23 12:34 Source: patient, EMS, RN notes reviewed, old records reviewed Mode of arrival: EMS Limitations: physical limitation - History of Present Illness Initial comments: Patient is a 43-year-old female presents emergency Department complaining of lower back pain. States that 3 days ago she fell while going down steps and slid down 6-7 steps. After that time, she experienced back pain. Has been progressively worsening. Denies any urinary or bowel incontinence or retention. Denies any lower extremity paralysis. Denies any saddle sensory deficits or paresthesias. Denies any other symptoms. Presents for further evaluation at this time. She did not hit her head and did not lose consciousness. No other injuries.Patient denies being on blood thinners. Denies loss of consciousness. Denies hitting her head during the episode. - Related Data Home Medications Medication Instructions Recorded Confirmed Montelukast [Singulair] 10 mg PO HS 12/16/19 02/17/23 Omeprazole 20 mg PO DAILY 12/16/19 02/17/23 allopurinoL [Zyloprim] 100 mg PO DAILY 12/16/19 02/17/23 Aspirin EC [Ecotrin Low Dose] 81 mg PO DAILY 04/12/20 02/17/23 calcium polycarbophiL [Fibercon] 1,250 mg PO BID PRN 09/04/20 02/17/23 Loratadine [Claritin] 10 mg PO DAILY 12/22/20 02/17/23 Albuterol Sulfate [Proair Hfa] 2 puff INHALATION RT-QID PRN 12/12/21 02/17/23 Cholecalciferol [Vitamin D3 (125 125 mcg PO DAILY 12/12/21 02/17/23 Mcg = 5000 Iu)] Docusate 250mg Cap 250 mg PO BID 12/12/21 02/17/23 Fenofibrate [Lofibra] 54 mg PO DAILY 12/12/21 02/17/23 Folic Acid 1 mg PO DAILY 12/12/21 02/17/23 Linaclotide [Linzess] 145 mcg PO DAILY 12/12/21 02/17/23 Wbx-Lsry-Howaa Acid 1 cap PO DAILY 08/05/22 02/17/23 [-U Capsule (formulary)] guaiFENesin-DM 100-10MG/5ML 10 ml PO Q6H PRN 08/05/22 02/17/23 [Robitussin DM] Baclofen [Lioresal] 10 mg PO HS PRN 11/21/22 02/17/23 Bismuth Subsalicylate [Kaopectate] 524 mg PO Q6H PRN 11/21/22 02/17/23 Budesonide/Formoterol Fumarate 2 puff INHALATION RT-BID 11/21/22 02/17/23 [Symbicort 80-4.5 Mcg Inhaler] Fluticasone Nasal [place] [Flonase 1 spray EA NOSTRIL DAILY 11/21/22 02/17/23 Nasal [place]] Fluticasone Propionate 220 Mcg 2 puff INHALATION RT-BID 11/21/22 02/17/23 [Flovent 220 Mcg Inhaler] Furosemide [Lasix] 20 mg PO DAILY 11/21/22 02/17/23 Losartan Potassium 100 mg PO DAILY 11/21/22 02/17/23 Nystatin 100,000 Unit/gm Powd 1 applic TOPICAL BID PRN 11/21/22 02/17/23 [Mycostatin Powder] Nystatin 100,000Unit/gm Cream 1 applic TOPICAL BID PRN 11/21/22 02/17/23 [Mycostatin Cream] polyethylene glycoL 3350 [Miralax] 17 gm PO DAILY PRN 11/21/22 02/17/23 Clotrimazole Cream [Lotrimin Cream] 1 applic TOPICAL TID 12/07/22 02/17/23 Previous Rx's Medication Instructions Recorded Promethazine 6.25MG/5Ml [Phenergan 5 ml PO TID PRN #120 ml 11/11/22 Syrup] Ondansetron Odt [Zofran ODT] 4 mg PO Q8HR PRN #15 tab 12/07/22 Metoclopramide [Reglan] 5 mg PO ACHS #12 tab 12/09/22 ARIPiprazole [Abilify] 10 mg PO HS 30 Days #30 tab 02/22/23 DULoxetine HCL [Cymbalta] 60 mg PO DAILY 30 Days #30 cap 02/22/23 Naltrexone HCl [Revia] 50 mg PO DAILY 30 Days #30 tab 02/22/23 Zonisamide [Zonegran] 300 mg PO HS 30 Days #90 cap 02/22/23 metFORMIN HCL [Glucophage] 1,000 mg PO BID 15 Days #60 tab 02/22/23 Azithromycin [Zithromax] 250 mg PO DIRECTED #6 tab 05/13/23 Ondansetron Odt [Zofran Odt] 4 mg PO Q8HR PRN #15 tab 05/13/23 Promethazine/Dextromethorphan 5 ml PO Q4-6H PRN #473 ml 05/13/23 [Promethazine-Dm Syrup] Cyclobenzaprine [Flexeril] 5 mg PO TID PRN 5 Days #15 tablet 06/06/23 Lidocaine 5% Patch [Lidoderm 5% 1 patch TOPICAL DAILY PRN 14 Days 06/06/23 Patch] #14 patch Allergies Allergy/AdvReac Type Severity Reaction Status Date / Time Iodinated Contrast Media Allergy Anaphylaxis Verified 06/06/23 12:36 [Iodinated Contrast Media - IV Dye] lacosamide [From Vimpat] Allergy Anaphylaxis Verified 06/06/23 12:36 peanut Allergy Anaphylaxis Verified 06/06/23 12:36 Penicillins Allergy Anaphylaxis Verified 06/06/23 12:36 shellfish derived Allergy Anaphylaxis Verified 06/06/23 12:36 cephalexin monohydrate AdvReac Nausea & Verified 06/06/23 12:36 [From Keflex] Vomiting & Diarrhea trazodone AdvReac bp Verified 06/06/23 12:36 issues/dizziness Review of Systems ROS Statement: Those systems with pertinent positive or pertinent negative responses have been documented in the HPI. Review of Systems: CONST: Denies fever EYES: Denies blurry vision ENT: Denies nasal congestion C/V: Denies Chest pain RESP: Denies shortness of breath GI: Denies abdominal pain : Denies dysuria SKIN: Denies rash. MSK: Endorses Back pain NEURO: Denies headache ROS Other: All systems not noted in ROS Statement are negative. Past Medical History Past Medical History: Asthma, Heart Failure, COPD, Fibromyalgia, GERD/Reflux, GI Bleed, Hypertension, Liver Disease, Osteoarthritis (OA), Pneumonia, Seizure Disorder, Skin Disorder Additional Past Medical History / Comment(s): Bronchitis, gestational diabetes, seizures with last one 09/03/20, sickle cell trait, liver cirrhosis, anemia, chrons, IBS, ulcerative colitis, lowr GI bleed, hemorrhoids, constipation, psoriasis, migraines, chronic low back and cervical pain, scoliosis, arhtritis in multiple joints, gout bilateral feet, History of Any Multi-Drug Resistant Organisms: None Reported Past Surgical History: Cholecystectomy, Orthopedic Surgery Additional Past Surgical History / Comment(s): L oophorectomy d/t cyst, D&C, colonoscopy, L carpal tunnel release, Past Anesthesia/Blood Transfusion Reactions: Motion Sickness, Postoperative Nausea & Vomiting (PONV) Past Psychological History: Anxiety, Bipolar, Depression, Schizophrenia Smoking Status: Former smoker Past Alcohol Use History: None Reported Past Drug Use History: None Reported - Past Family History Mother History Unknown: Yes Family Medical History: Cancer Additional Family Medical History / Comment(s): Mother had breast cancer and metnal illness She is living. Father Family Medical History: Cancer Additional Family Medical History / Comment(s): Father is . He had agent orange exposure. He had liver cancer, bowel to brain cancer. General Exam - General Exam Comments Initial Comments: General: Appears in no acute distress. HEAD: Normal with no signs of head trauma. EYES: PERRLA, EOMI, conjunctiva normal, no discharge. ENT: Hearing grossly intact, normal oropharynx. RESPIRATORY: Clear breath sounds bilaterally. No wheezes, rales, or rhonchi. C/V: Regular rate and rhythm. S1 and S2 auscultated, no edema, peripheral pulses 2+ and intact throughout ABD: Abd is soft, nontender, nondistended EXT: Normal range of motion, no obvious deformity. Patient has midline lower lumbar spine tenderness palpation with radiation to the right lateral paraspinal muscles. Pelvis is stable. No obvious step-offs or deformities palpated. SKIN: No rashes or lesions observed on exposed skin. NEURO: Alert and oriented 4. No focal sensory strength deficits. GCS 15. Limitations: physical limitation Course Vital Signs 06/06/23 12:32 Temperature 98.2 F Pulse Rate 54 L Respiratory 18 Rate Blood Pressure 119/59 O2 Sat by Pulse 95 Oximetry Medical Decision Making - Medical Decision Making Was pt. sent in by a medical professional or institution (, PA, ANTISQUEAK WORKER, urgent care, hospital, or half-way...) When possible be specific @ -No Did you speak to anyone other than the patient for history (EMS, parent, family, police, friend...)? What history was obtained from this source @ -No Did you review nursing and triage notes (agree or disagree)? Why? @ -I reviewed and agree with nursing and triage notes Were old charts reviewed (outside hosp., previous admission, EMS record, old EKG, old radiological studies, urgent care reports/EKG's, half-way records)? Report findings @ -No old charts were reviewed Differential Diagnosis (chest pain, altered mental status, abdominal pain women, abdominal pain men, vaginal bleeding, weakness, fever, dyspnea, syncope, headache, dizziness, GI bleed, back pain, seizure, CVA, palpatations, mental health, musculoskeletal)? @ -Differential Back Pain: Strain, zoster, cauda equina syndrome, epidural abscess, vertebral osteomyelitis, discitis, fracture, subluxation, disc herniation, DJD, spinal stenosis, dissection, AAA, pancreatitis, peptic ulcer disease, pyelonephritis, kidney stone, this is not meant to be an all-inclusive list. EKG interpreted by me (3pts min.). @ -None done X-rays interpreted by me (1pt min.). @ -None done CT interpreted by me (1pt min.). @ -CT lumbar spine reveals disc herniations with mild central canal stenosis of the lumbar spine as well as lower T-spine. Patient does state she has a chronic history of this. U/S interpreted by me (1pt. min.). @ -None done What testing was considered but not performed or refused? (CT, X-rays, U/S, labs)? Why? @ -None What meds were considered but not given or refused? Why? @ -None Did you discuss the management of the patient with other professionals (professionals i.e. , PA, ANTISQUEAK WORKER, lab, RT, psych nurse, hospital social worker, naval architect specialist, teacher, licensed mortgage loan officer, clinical case manager)? Give summary @ -No Was smoking cessation discussed for >3mins.? @ -No Was critical care preformed (if so, how long)? @ -No Were there social determinants of health that impacted care today? How? (Homelessness, low income, unemployed, alcoholism, drug addiction, transportation, low edu. Level, literacy, decrease access to med. care, longterm, rehab)? @ -No Was there de-escalation of care discussed even if they declined (Discuss DNR or withdrawal of care, Hospice)? DNR status @ -No What co-morbidities impacted this encounter? (DM, HTN, Smoking, COPD, CAD, Cancer, CVA, ARF, Chemo, Hep., AIDS, mental health diagnosis, sleep apnea, morbid obesity)? @ -None Was patient admitted / discharged? Hospital course, mention meds given and route, prescriptions, significant lab abnormalities, going to OR and other pertinent info. @ -Based on the patient's presentation and physical exam, presents for traumatic fall with back pain that occurred a few days ago. We'll obtain CT imaging of the spine due to her age as well as provide the patient with analgesia ibuprofen, Jewell, lidocaine patch. She was in agreement with this plan. Vital signs within acceptable limits. No concern for cauda equina syndrome at this time. CT imaging remarkable for chronic known disc herniations with mild central canal stenosis which is all noted the patient. Does not appear to have new findings this patient is able to tell me what prior imaging shown what signs up with what are CT today shows. I discussed results of the patient. She is been improved. She'll be discharged home at this time. She was in agreement this plan. I will provide the patient with a prescription for Flexeril, lidocaine patch. I instructed the patient to follow up with their PCP in the next 1-3 days. I provided contact information for follow up with orthopedics. I explained that the patient should return to the emergency department if they experience any worsening symptoms. Strict return precautions were discussed with the patient. The patient expressed understanding of these instructions. I answered all questions that the patient had. The patient was discharged home in good condition with their prescriptions and follow up information. Undiagnosed new problem with uncertain prognosis? @ -No Drug Therapy requiring intensive monitoring for toxicity (Heparin, Nitro, Insulin, Cardizem)? @ -No Were any procedures done? @ -No Diagnosis/symptom? @ -Disc herniations, low back pain Acute, or Chronic, or Acute on Chronic? @ -Suspect acute on chronic Uncomplicated (without systemic symptoms) or Complicated (systemic symptoms)? @ -Uncomplicated Side effects of treatment? @ -No Exacerbation, Progression, or Severe Exacerbation? @ -No Poses a threat to life or bodily function? How? (Chest pain, [place], [place], pneumonia, PE, COPD, DKA, ARF, appy, cholecystitis, CVA, Diverticulitis, Homicidal, Suicidal, threat to staff... and all critical care pts) @ -No Disposition Clinical Impression: Chronic back pain, Disc herniation Disposition: HOME SELF-CARE Condition: Good Instructions (If sedation given, give patient instructions): Acute Low Back Pain (ED) Prescriptions: Cyclobenzaprine [Flexeril] 5 mg PO TID PRN 5 Days #15 tablet PRN Reason: Pain Lidocaine 5% Patch [Lidoderm 5% Patch] 1 patch TOPICAL DAILY PRN 14 Days #14 patch PRN Reason: Pain Is patient prescribed a controlled substance at d/c from ED?: No Referrals: Evelyn Blas MD [Primary Care Provider] - 1-2 days Pedro Luis Otero DO [Doctor of Osteopathic Medicine] - 1-2 days Time of Disposition: 13:55
[2023-06-06] MEDS ORDERED: ACET/COD 300 MG/30 MG STARTER PACK 6 TAB BTL PO STA (14:05)
== END 2023-06-06 14:42 | disposition home or self-care (01) ==
LOC: EC 12:28
DX: G89.29 Other chronic pain (principal); M54.50 Low back pain, unspecified; M51.26 Other intervertebral disc displacement, lumbar region; I11.0 Hypertensive heart disease with heart failure; I50.9 Heart failure, unspecified; K21.9 Gastro-esophageal reflux disease without esophagitis; J44.89 Other specified chronic obstructive pulmonary disease; Z87.891 Personal history of nicotine dependence; Z86.59 Personal history of other mental and behavioral disorders; Z79.899 Other long term (current) drug therapy; Z79.82 Long term (current) use of aspirin
CPT/HCPCS: 72131; 99284

== ENCOUNTER 2023-10-08 22:51 | Emergency (ER) | payer OTHER ==
[2023-10-09] MEDS: KETOROLAC 15 MG/ML 1 ML VIAL IVP STA (00:04)
[2023-10-09 00:17] LABS: Basophils # (A) 0.1 k/uL (0-0.2); Basophils % (A) 0 %; Eosinophils # (A) 0.7 k/uL (0-0.7); Eosinophils % (A) 6 %; HCT 36.9 % (34.0-46.0); HGB 12.2 gm/dL (11.4-16.0); Lymphocytes # (A) 2.3 k/uL (1.0-4.8); Lymphocytes % (A) 18 %; MCH 29.3 pg (25.0-35.0); MCV 88.8 fL (80.0-100.0); Mean Platelet Volume 8.3; Monocytes # (A) 0.6 k/uL (0-1.0); Monocytes % (A) 5 %; Neutrophils % (A) 70 %; Platelet Count 165 k/uL (150-450); RBC 4.15 m/uL (3.80-5.40); RDW 15.1 % (11.5-15.5); WBC 12.8 k/uL (3.8-10.6)
[2023-10-09 00:41] LABS: ALT 37 U/L (4-34); AST 44 U/L (14-36); African American GFR (CKD) >90 (>60 ml/min/1.73 sqM); Albumin 3.5 g/dL (3.5-5.0); Alkaline Phosphatase 93 U/L (38-126); Anion Gap 5 mmol/L; Blood Urea Nitrogen 11 mg/dL (7-17); Calcium 8.2 mg/dL (8.4-10.2); Carbon Dioxide 26 mmol/L (22-30); Chloride 108 mmol/L (98-107); Glucose 140 mg/dL (74-99); Non-African American GFR(CKD) >90 (>60 ml/min/1.73 sqM); Sodium 139 mmol/L (137-145); Total Bilirubin 0.3 mg/dL (0.2-1.3); Total Protein 6.6 g/dL (6.3-8.2)
--- NOTE | 2023-10-09 00:49 | ED ---
General Adult HPI - General Chief complaint: Shortness of Breath Stated complaint: SOB Time Seen by Provider: 10/08/23 23:06 Source: patient Mode of arrival: ambulatory Limitations: no limitations - History of Present Illness Initial comments: 43-year-old female presenting to the ED with a chief complaint of shortness of breath. Patient reports she just was discharged from [facility] in [facility]. Reports she typically follows with the [facility]. States that she typically takes Lasix twice daily and reports since discharge 3 days ago she has not had any. States that she feels like she is starting to build up fluid all over her body. Reports increased abdominal swelling, leg swelling, and some shortness of breath. No cough, no chest pain. No fever or chills. No other complaints at this time. - Related Data Home Medications Medication Instructions Recorded Confirmed Montelukast [Singulair] 10 mg PO HS 12/16/19 02/17/23 Omeprazole 20 mg PO DAILY 12/16/19 02/17/23 allopurinoL [Zyloprim] 100 mg PO DAILY 12/16/19 02/17/23 Aspirin EC [Ecotrin Low Dose] 81 mg PO DAILY 04/12/20 02/17/23 calcium polycarbophiL [Fibercon] 1,250 mg PO BID PRN 09/04/20 02/17/23 Loratadine [Claritin] 10 mg PO DAILY 12/22/20 02/17/23 Albuterol Sulfate [Proair Hfa] 2 puff INHALATION RT-QID PRN 12/12/21 02/17/23 Cholecalciferol [Vitamin D3 (125 125 mcg PO DAILY 12/12/21 02/17/23 Mcg = 5000 Iu)] Docusate 250mg Cap 250 mg PO BID 12/12/21 02/17/23 Fenofibrate [Lofibra] 54 mg PO DAILY 12/12/21 02/17/23 Folic Acid 1 mg PO DAILY 12/12/21 02/17/23 Linaclotide [Linzess] 145 mcg PO DAILY 12/12/21 02/17/23 Pwi-Cfdd-Gfzth Acid 1 cap PO DAILY 08/05/22 02/17/23 [-U Capsule (formulary)] guaiFENesin-DM 100-10MG/5ML 10 ml PO Q6H PRN 08/05/22 02/17/23 [Robitussin DM] Baclofen [Lioresal] 10 mg PO HS PRN 11/21/22 02/17/23 Bismuth Subsalicylate [Kaopectate] 524 mg PO Q6H PRN 11/21/22 02/17/23 Budesonide/Formoterol Fumarate 2 puff INHALATION RT-BID 11/21/22 02/17/23 [Symbicort 80-4.5 Mcg Inhaler] Fluticasone Nasal [place] [Flonase 1 spray EA NOSTRIL DAILY 11/21/22 02/17/23 Nasal [place]] Fluticasone Propionate 220 Mcg 2 puff INHALATION RT-BID 11/21/22 02/17/23 [Flovent 220 Mcg Inhaler] Furosemide [Lasix] 20 mg PO DAILY 11/21/22 02/17/23 Losartan Potassium 100 mg PO DAILY 11/21/22 02/17/23 Nystatin 100,000 Unit/gm Powd 1 applic TOPICAL BID PRN 11/21/22 02/17/23 [Mycostatin Powder] Nystatin 100,000Unit/gm Cream 1 applic TOPICAL BID PRN 11/21/22 02/17/23 [Mycostatin Cream] polyethylene glycoL 3350 [Miralax] 17 gm PO DAILY PRN 11/21/22 02/17/23 Clotrimazole Cream [Lotrimin Cream] 1 applic TOPICAL TID 12/07/22 02/17/23 Previous Rx's Medication Instructions Recorded Promethazine 6.25MG/5Ml [Phenergan 5 ml PO TID PRN #120 ml 11/11/22 Syrup] Ondansetron Odt [Zofran ODT] 4 mg PO Q8HR PRN #15 tab 12/07/22 Metoclopramide [Reglan] 5 mg PO ACHS #12 tab 12/09/22 ARIPiprazole [Abilify] 10 mg PO HS 30 Days #30 tab 02/22/23 DULoxetine HCL [Cymbalta] 60 mg PO DAILY 30 Days #30 cap 02/22/23 Naltrexone HCl [Revia] 50 mg PO DAILY 30 Days #30 tab 02/22/23 Zonisamide [Zonegran] 300 mg PO HS 30 Days #90 cap 02/22/23 metFORMIN HCL [Glucophage] 1,000 mg PO BID 15 Days #60 tab 02/22/23 Azithromycin [Zithromax] 250 mg PO DIRECTED #6 tab 05/13/23 Ondansetron Odt [Zofran Odt] 4 mg PO Q8HR PRN #15 tab 05/13/23 Promethazine/Dextromethorphan 5 ml PO Q4-6H PRN #473 ml 05/13/23 [Promethazine-Dm Syrup] Cyclobenzaprine [Flexeril] 5 mg PO TID PRN 5 Days #15 tablet 06/06/23 Lidocaine 5% Patch [Lidoderm 5% 1 patch TOPICAL DAILY PRN 14 Days 06/06/23 Patch] #14 patch Furosemide [Lasix] 20 mg PO BID #30 tab 10/09/23 metFORMIN HCL [Glucophage] 1,000 mg PO BID #30 tab 10/09/23 Allergies Allergy/AdvReac Type Severity Reaction Status Date / Time Iodinated Contrast Media Allergy Anaphylaxis Verified 10/08/23 22:57 [Iodinated Contrast Media - IV Dye] lacosamide [From Vimpat] Allergy Anaphylaxis Verified 10/08/23 22:57 peanut Allergy Anaphylaxis Verified 10/08/23 22:57 Penicillins Allergy Anaphylaxis Verified 10/08/23 22:57 shellfish derived Allergy Anaphylaxis Verified 10/08/23 22:57 cephalexin monohydrate AdvReac Nausea & Verified 10/08/23 22:57 [From Keflex] Vomiting & Diarrhea trazodone AdvReac bp Verified 10/08/23 22:57 issues/dizziness Review of Systems ROS Statement: Those systems with pertinent positive or pertinent negative responses have been documented in the HPI. ROS Other: All systems not noted in ROS Statement are negative. Past Medical History Past Medical History: Asthma, Heart Failure, COPD, Fibromyalgia, GERD/Reflux, GI Bleed, Hypertension, Liver Disease, Osteoarthritis (OA), Pneumonia, Seizure Disorder, Skin Disorder Additional Past Medical History / Comment(s): Bronchitis, gestational diabetes, seizures with last one 09/03/20, sickle cell trait, liver cirrhosis, anemia, chrons, IBS, ulcerative colitis, lowr GI bleed, hemorrhoids, constipation, psoriasis, migraines, chronic low back and cervical pain, scoliosis, arhtritis in multiple joints, gout bilateral feet, History of Any Multi-Drug Resistant Organisms: None Reported Past Surgical History: Cholecystectomy, Orthopedic Surgery Additional Past Surgical History / Comment(s): L oophorectomy d/t cyst, D&C, colonoscopy, L carpal tunnel release, Past Anesthesia/Blood Transfusion Reactions: Motion Sickness, Postoperative Nausea & Vomiting (PONV) Past Psychological History: Anxiety, Bipolar, Depression, Schizophrenia Smoking Status: Former smoker Past Alcohol Use History: None Reported Past Drug Use History: None Reported, Cocaine - Past Family History Mother History Unknown: Yes Family Medical History: Cancer Additional Family Medical History / Comment(s): Mother had breast cancer and metnal illness She is living. Father Family Medical History: Cancer Additional Family Medical History / Comment(s): Father is . He had agent orange exposure. He had liver cancer, bowel to brain cancer. General Exam Limitations: no limitations General appearance: alert, in no apparent distress, obese Eye exam: Present: normal appearance Neck exam: Present: normal inspection Respiratory exam: Present: normal lung sounds bilaterally Cardiovascular Exam: Present: regular rate, normal rhythm GI/Abdominal exam: Present: soft (No significant abdominal tenderness to palpation.) Extremities exam: Present: other (No pitting edema bilateral lower extremities. DP/PT pulses palpable.) Neurological exam: Present: alert, oriented X3 Skin exam: Present: warm, dry Course Vital Signs 10/08/23 22:53 Temperature 98.8 F Pulse Rate 63 Respiratory 20 Rate Blood Pressure 177/74 O2 Sat by Pulse 97 Oximetry Medical Decision Making - Medical Decision Making Was pt. sent in by a medical professional or institution ([facility], [employer], urgent care, hospital, or [facility]...) When possible be specific @ -No Did you speak to anyone other than the patient for history (EMS, parent, family, police, friend...)? What history was obtained from this source @ -No Did you review nursing and triage notes (agree or disagree)? Why? @ -I reviewed and agree with nursing and triage notes Were old charts reviewed (outside hosp., previous admission, EMS record, old EKG, old radiological studies, urgent care reports/EKG's, [facility] records)? Report findings @ -No old charts were reviewed Differential Diagnosis (chest pain, altered mental status, abdominal pain women, abdominal pain men, vaginal bleeding, weakness, fever, dyspnea, syncope, headache, dizziness, GI bleed, back pain, seizure, CVA, palpatations, mental he alth, musculoskeletal)? @ -Differential Dyspnea: Coronary syndrome, arrhythmia, tamponade, asthma, COPD, pulmonary embolism, pneumonia, pneumothorax, pulmonary effusion, anaphylaxis, diabetic ketoacidosis, flailed chest, pulmonary contusion, diaphragmatic rupture, anemia, neuromuscula r, this is not meant to be an all-inclusive list. EKG interpreted by me (3pts min.). @ -EKG interpreted by me showing a sinus rhythm with right bundle branch block at 61 bpm. CO 161, QRS 166, QT/QTc 462/466. Appears similar to prior. X-rays interpreted by me (1pt min.). @ -Chest x-ray inter by me showing no evidence of acute finding. CT interpreted by me (1pt min.). @ -None done U/S interpreted by me (1pt. min.). @ -Ultrasound bilateral lower extremity showed no evidence of DVT or other acute finding. What testing was considered but not performed or refused? (CT, X-rays, U/S, labs)? Why? @ -None What meds were considered but not given or refused? Why? @ -None Did you discuss the management of the patient with other professionals (professionals i.e. , PA, [employer], lab, RT, psych nurse, social media marketer, golf course superintendent, teacher, community service officer coordinator, case management coordinator)? Give summary @ -No Was smoking cessation discussed for >3mins.? @ -No Was critical care preformed (if so, how long)? @ -No Were there social determinants of health that impacted care today? How? (Homelessness, low income, unemployed, alcoholism, drug addiction, transportation, low edu. Level, literacy, decrease access to med. care, prison, rehab)? @ -No Was there de-escalation of care discussed even if they declined (Discuss DNR or withdrawal of care, Hospice)? DNR status @ -No What co-morbidities impacted this encounter? (DM, HTN, Smoking, COPD, CAD, Cancer, CVA, ARF, Chemo, Hep., AIDS, mental health diagnosis, sleep apnea, morbid obesity)? @ -None Was patient admitted / discharged? Hospital course, mention meds given and route, prescriptions, significant lab abnormalities, going to OR and other pertinent info. @ -Discharge 43-year-old female presents to the ED with complaints of feeling like she is swollen all over her body and also reports that she feels like she is starting to get short of breath. Notes that she has run out of her prescription for Lasix 20 mg twice daily. Also reports that she has run out of her Glucophage. Laboratory studies largely unremarkable. BNP 123. Troponin undetectable. Vit al signs shows patient is oxygenating at 97% on room air exam showed no evidence of respiratory distress. Chest x-ray showed no evidence of effusion. Patient discharged home in stable condition with prescriptions for Lasix and Glucophage. She has follow up with her PCP in 3 days. Discussed return precautions with patient who verbalized agreement. Undiagnosed new problem with uncertain prognosis? @ -No Drug Therapy requiring intensive monitoring for toxicity (Heparin, Nitro, Insul in, Cardizem)? @ -No Were any procedures done? @ -No Diagnosis/symptom? @ -Swelling, dyspnea Acute, or Chronic, or Acute on Chronic? @ -Acute Uncomplicated (without systemic symptoms) or Complicated (systemic symptoms)? @ -Uncomplicated Side effects of treatment? @ -No Exacerbation, Progression, or Severe Exacerbation? @ -No Poses a threat to life or bodily function? How? (Chest pain, [place], [place], pneumonia, PE, COPD, DKA, ARF, appy, cholecystitis, CVA, Diverticulitis, Homicidal, Suicidal, threat to staff... and all critical care pts) @ -No - Lab Data Result diagrams: 10/09/23 00:00 10/09/23 00:00 Lab Results 10/09/23 10/09/23 10/09/23 Range/Units 00:00 00:00 00:00 WBC 12.8 H (3.8-10.6) k/uL RBC 4.15 (3.80-5.40) m/uL Hgb 12.2 (11.4-16.0) gm/dL Hct 36.9 (34.0-46.0) % MCV 88.8 (80.0-100.0) fL MCH 29.3 (25.0-35.0) pg MCHC 33.0 (31.0-37.0) g/dL RDW 15.1 (11.5-15.5) % Plt Count 165 (150-450) k/uL MPV 8.3 Neutrophils % 70 % Lymphocytes % 18 % Monocytes % 5 % Eosinophils % 6 % Basophils % 0 % Neutrophils # 9.0 H (1.3-7.7) k/uL Lymphocytes # 2.3 (1.0-4.8) k/uL Monocytes # 0.6 (0-1.0) k/uL Eosinophils # 0.7 (0-0.7) k/uL Basophils # 0.1 (0-0.2) k/uL PT (10.0-12.5) sec INR (<1.2) APTT (22.0-30.0) sec Sodium 139 (137-145) mmol/L Potassium 4.0 (3.5-5.1) mmol/L Chloride 108 H (98-107) mmol/L Carbon Dioxide 26 (22-30) mmol/L Anion Gap 5 mmol/L BUN 11 (7-17) mg/dL Creatinine 0.59 (0.52-1.04) mg/dL Est GFR (CKD-EPI)AfAm >90 (>60 ml/min/1.73 sqM) Est GFR (CKD-EPI)NonAf >90 (>60 ml/min/1.73 sqM) Glucose 140 H (74-99) mg/dL Calcium 8.2 L (8.4-10.2) mg/dL Total Bilirubin 0.3 (0.2-1.3) mg/dL AST 44 H (14-36) U/L ALT 37 H (4-34) U/L Alkaline Phosphatase 93 (38-126) U/L Troponin I <0.012 (0.000-0.034) ng/mL NT-Pro-B Natriuret Pep 123 pg/mL Total Protein 6.6 (6.3-8.2) g/dL Albumin 3.5 (3.5-5.0) g/dL 10/09/23 Range/Units 01:20 WBC (3.8-10.6) k/uL RBC (3.80-5.40) m/uL Hgb (11.4-16.0) gm/dL Hct (34.0-46.0) % MCV (80.0-100.0) fL MCH (25.0-35.0) pg MCHC (31.0-37.0) g/dL RDW (11.5-15.5) % Plt Count (150-450) k/uL MPV Neutrophils % % Lymphocytes % % Monocytes % % Eosinophils % % Basophils % % Neutrophils # (1.3-7.7) k/uL Lymphocytes # (1.0-4.8) k/uL Monocytes # (0-1.0) k/uL Eosinophils # (0-0.7) k/uL Basophils # (0-0.2) k/uL PT 10.0 (10.0-12.5) sec INR 0.9 (<1.2) APTT 24.2 (22.0-30.0) sec Sodium (137-145) mmol/L Potassium (3.5-5.1) mmol/L Chloride (98-107) mmol/L Carbon Dioxide (22-30) mmol/L Anion Gap mmol/L BUN (7-17) mg/dL Creatinine (0.52-1.04) mg/dL Est GFR (CKD-EPI)AfAm (>60 ml/min/1.73 sqM) Est GFR (CKD-EPI)NonAf (>60 ml/min/1.73 sqM) Glucose (74-99) mg/dL Calcium (8.4-10.2) mg/dL Total Bilirubin (0.2-1.3) mg/dL AST (14-36) U/L ALT (4-34) U/L Alkaline Phosphatase (38-126) U/L Troponin I (0.000-0.034) ng/mL NT-Pro-B Natriuret Pep pg/mL Total Protein (6.3-8.2) g/dL Albumin (3.5-5.0) g/dL Disposition Clinical Impression: Swelling, Medication refill Disposition: HOME SELF-CARE Condition: Good Additional Instructions: Please return to the Emergency Department if symptoms worsen or any other concerns. Please follow-up with your PCP. Prescriptions: Furosemide [Lasix] 20 mg PO BID #30 tab Is patient prescribed a controlled substance at d/c from ED?: No Referrals: [facility] [Primary Care Provider] - 1-2 days
[2023-10-09 00:50] LABS: NT-Pro-B-Type Natriuretic Pept 123 pg/mL
--- NOTE | 2023-10-09 01:20 | US ---
EXAM: US Duplex Bilateral Lower Extremities Veins CLINICAL HISTORY: ITS.REASON US Reason: r/o dvt TECHNIQUE: Real-time duplex ultrasound scan of the bilateral lower extremity veins integrating B-mode two-dimensional vascular structure, Doppler spectral analysis, color flow Doppler imaging and compression. COMPARISON: No relevant prior studies available. FINDINGS: Right deep veins: No DVT in the right common femoral, femoral, proximal deep femoral or popliteal veins. The veins demonstrate normal color flow, are normally compressible, with normal phasic flow and/or augmentation response. Right superficial veins: No thrombus in the visualized right great saphenous vein. Left deep veins: No DVT in the left common femoral, femoral, proximal deep femoral or popliteal veins. The veins demonstrate normal color flow, are normally compressible, with normal phasic flow and/or augmentation response. Left superficial veins: No thrombus in the visualized left great saphenous vein. Soft tissues: No popliteal cyst. IMPRESSION: No DVT.
--- NOTE | 2023-10-09 01:20 | XR ---
EXAM: XR Chest, 2 Views CLINICAL HISTORY: ITS.REASON XR Reason: difficulty breathing TECHNIQUE: Frontal and lateral views of the chest. COMPARISON: No relevant prior studies available. FINDINGS: Lungs: No consolidation or mass. Pleural space: No effusion. Heart: No cardiomegaly. Bones/joints: No acute findings. IMPRESSION: No acute cardiopulmonary process.
[2023-10-09 01:43] LABS: INR 0.9 (<1.2); Partial Thromboplastin Time 24.2 sec (22.0-30.0)
[2023-10-09 02:58] VITALS: RESP 18
[2023-10-09 03:31] VITALS: BP 147/77; PULSE 60; TEMP 98.7
== END 2023-10-09 02:56 | disposition home or self-care (01) ==
LOC: EC 22:51
DX: Z76.0 Encounter for issue of repeat prescription (principal); R60.9 Edema, unspecified; I11.0 Hypertensive heart disease with heart failure; I50.9 Heart failure, unspecified; F31.9 Bipolar disorder, unspecified; F41.9 Anxiety disorder, unspecified; K21.9 Gastro-esophageal reflux disease without esophagitis; J44.9 Chronic obstructive pulmonary disease, unspecified; M19.90 Unspecified osteoarthritis, unspecified site; Z79.51 Long term (current) use of inhaled steroids; Z79.899 Other long term (current) drug therapy; Z87.891 Personal history of nicotine dependence; Z88.0 Allergy status to penicillin; Z88.1 Allergy status to other antibiotic agents; Z91.013 Allergy to seafood; Z91.018 Allergy to other foods; Z88.8 Allergy status to other drugs, medicaments and biological substances; Z91.041 Radiographic dye allergy status; Z90.49 Acquired absence of other specified parts of digestive tract
CPT/HCPCS: 36415; 93005; 83880; 80053; 84484; 85025; 85610; 85730; 71046; 93970; 99285; 96374; J1885

== ENCOUNTER 2023-10-10 07:30 | Emergency (ER) | payer OTHER ==
[2023-10-10] MEDS: SODIUM CHLORIDE 0.9% 1,000 ML IV ONE (07:54)
[2023-10-10] MEDS: DIPHENOX-ATROP 2.5-0.025 MG 1 EACH TAB PO STA (07:54)
[2023-10-10] MEDS: ONDANSETRON 4 MG/2 ML VIAL IVP STA (07:54)
--- NOTE | 2023-10-10 07:58 | ED ---
General Adult HPI - General Chief complaint: Nausea/Vomiting/Diarrhea Stated complaint: N/V/D Time Seen by Provider: 10/10/23 07:40 Source: patient, RN notes reviewed, old records reviewed Mode of arrival: ambulatory Limitations: no limitations - History of Present Illness Initial comments: This is a 43-year-old female who presents to the emergency department stating that starting yesterday she started having nausea vomiting diarrhea and she denies any abdominal pain she denies any fever or chills. Patient denies any chest pain difficult breathing shortness of breath. Patient states she is just wants to have it stop because that is coming on quite frequently. - Related Data Home Medications Medication Instructions Recorded Confirmed Montelukast [Singulair] 10 mg PO HS 12/16/19 02/17/23 Omeprazole 20 mg PO DAILY 12/16/19 02/17/23 allopurinoL [Zyloprim] 100 mg PO DAILY 12/16/19 02/17/23 Aspirin EC [Ecotrin Low Dose] 81 mg PO DAILY 04/12/20 02/17/23 calcium polycarbophiL [Fibercon] 1,250 mg PO BID PRN 09/04/20 02/17/23 Loratadine [Claritin] 10 mg PO DAILY 12/22/20 02/17/23 Albuterol Sulfate [Proair Hfa] 2 puff INHALATION RT-QID PRN 12/12/21 02/17/23 Cholecalciferol [Vitamin D3 (125 125 mcg PO DAILY 12/12/21 02/17/23 Mcg = 5000 Iu)] Docusate 250mg Cap 250 mg PO BID 12/12/21 02/17/23 Fenofibrate [Lofibra] 54 mg PO DAILY 12/12/21 02/17/23 Folic Acid 1 mg PO DAILY 12/12/21 02/17/23 Linaclotide [Linzess] 145 mcg PO DAILY 12/12/21 02/17/23 Ork-Csyb-Mlbti Acid 1 cap PO DAILY 08/05/22 02/17/23 [-U Capsule (formulary)] guaiFENesin-DM 100-10MG/5ML 10 ml PO Q6H PRN 08/05/22 02/17/23 [Robitussin DM] Baclofen [Lioresal] 10 mg PO HS PRN 11/21/22 02/17/23 Bismuth Subsalicylate [Kaopectate] 524 mg PO Q6H PRN 11/21/22 02/17/23 Budesonide/Formoterol Fumarate 2 puff INHALATION RT-BID 11/21/22 02/17/23 [Symbicort 80-4.5 Mcg Inhaler] Fluticasone Nasal [place] [Flonase 1 spray EA NOSTRIL DAILY 11/21/22 02/17/23 Nasal [place]] Fluticasone Propionate 220 Mcg 2 puff INHALATION RT-BID 11/21/22 02/17/23 [Flovent 220 Mcg Inhaler] Furosemide [Lasix] 20 mg PO DAILY 11/21/22 02/17/23 Losartan Potassium 100 mg PO DAILY 11/21/22 02/17/23 Nystatin 100,000 Unit/gm Powd 1 applic TOPICAL BID PRN 11/21/22 02/17/23 [Mycostatin Powder] Nystatin 100,000Unit/gm Cream 1 applic TOPICAL BID PRN 11/21/22 02/17/23 [Mycostatin Cream] polyethylene glycoL 3350 [Miralax] 17 gm PO DAILY PRN 11/21/22 02/17/23 Clotrimazole Cream [Lotrimin Cream] 1 applic TOPICAL TID 12/07/22 02/17/23 Previous Rx's Medication Instructions Recorded Promethazine 6.25MG/5Ml [Phenergan 5 ml PO TID PRN #120 ml 11/11/22 Syrup] Ondansetron Odt [Zofran ODT] 4 mg PO Q8HR PRN #15 tab 12/07/22 Metoclopramide [Reglan] 5 mg PO ACHS #12 tab 12/09/22 ARIPiprazole [Abilify] 10 mg PO HS 30 Days #30 tab 02/22/23 DULoxetine HCL [Cymbalta] 60 mg PO DAILY 30 Days #30 cap 02/22/23 Naltrexone HCl [Revia] 50 mg PO DAILY 30 Days #30 tab 02/22/23 Zonisamide [Zonegran] 300 mg PO HS 30 Days #90 cap 02/22/23 metFORMIN HCL [Glucophage] 1,000 mg PO BID 15 Days #60 tab 02/22/23 Azithromycin [Zithromax] 250 mg PO DIRECTED #6 tab 05/13/23 Ondansetron Odt [Zofran Odt] 4 mg PO Q8HR PRN #15 tab 05/13/23 Promethazine/Dextromethorphan 5 ml PO Q4-6H PRN #473 ml 05/13/23 [Promethazine-Dm Syrup] Cyclobenzaprine [Flexeril] 5 mg PO TID PRN 5 Days #15 tablet 06/06/23 Lidocaine 5% Patch [Lidoderm 5% 1 patch TOPICAL DAILY PRN 14 Days 06/06/23 Patch] #14 patch Furosemide [Lasix] 20 mg PO BID #30 tab 10/09/23 metFORMIN HCL [Glucophage] 1,000 mg PO BID #30 tab 10/09/23 Allergies Allergy/AdvReac Type Severity Reaction Status Date / Time Iodinated Contrast Media Allergy Anaphylaxis Verified 10/10/23 07:39 [Iodinated Contrast Media - IV Dye] lacosamide [From Vimpat] Allergy Anaphylaxis Verified 10/10/23 07:39 peanut Allergy Anaphylaxis Verified 10/10/23 07:39 Penicillins Allergy Anaphylaxis Verified 10/10/23 07:39 shellfish derived Allergy Anaphylaxis Verified 10/10/23 07:39 cephalexin monohydrate AdvReac Nausea & Verified 10/10/23 07:39 [From Keflex] Vomiting & Diarrhea trazodone AdvReac bp Verified 10/10/23 07:39 issues/dizziness Review of Systems ROS Statement: Those systems with pertinent positive or pertinent negative responses have been documented in the HPI. ROS Other: All systems not noted in ROS Statement are negative. Past Medical History Past Medical History: Asthma, Heart Failure, COPD, Fibromyalgia, GERD/Reflux, GI Bleed, Hypertension, Liver Disease, Osteoarthritis (OA), Pneumonia, Seizure Disorder, Skin Disorder Additional Past Medical History / Comment(s): Bronchitis, gestational diabetes, seizures with last one 09/03/20, sickle cell trait, liver cirrhosis, anemia, chrons, IBS, ulcerative colitis, lowr GI bleed, hemorrhoids, constipation, psoriasis, migraines, chronic low back and cervical pain, scoliosis, arhtritis in multiple joints, gout bilateral feet, History of Any Multi-Drug Resistant Organisms: None Reported Past Surgical History: Cholecystectomy, Orthopedic Surgery Additional Past Surgical History / Comment(s): L oophorectomy d/t cyst, D&C, colonoscopy, L carpal tunnel release, Past Anesthesia/Blood Transfusion Reactions: Motion Sickness, Postoperative Nausea & Vomiting (PONV) Past Psychological History: Anxiety, Bipolar, Depression, Schizophrenia Smoking Status: Current every day smoker Past Alcohol Use History: None Reported Past Drug Use History: None Reported - Past Family History Mother History Unknown: Yes Family Medical History: Cancer Additional Family Medical History / Comment(s): Mother had breast cancer and metnal illness She is living. Father Family Medical History: Cancer Additional Family Medical History / Comment(s): Father is . He had agent orange exposure. He had liver cancer, bowel to brain cancer. General Exam - General Exam Comments Initial Comments: GENERAL: Patient is well-developed and well-nourished. Patient is nontoxic and well- hydrated and is in mild distress. ENT: Neck is soft and supple. No significant lymphadenopathy is noted. Oropharynx is clear. Moist mucous membranes. Neck has full range of motion without eliciting any pain. EYES: The sclera were anicteric and conjunctiva were pink and moist. Extraocular movements were intact and pupils were equal round and reactive to light. Eyelids were unremarkable. PULMONARY: Unlabored respirations. Good breath sounds bilaterally. No audible rales rhonchi or wheezing was noted. CARDIOVASCULAR: There is a regular rate and rhythm without any murmurs gallops or rubs. ABDOMEN: Soft and nontender with normal bowel sounds. SKIN: Skin is clear with no lesions or rashes and otherwise unremarkable. NEUROLOGIC: Patient is alert and oriented x3. Cranial nerves II through XII are grossly int act. Motor and sensory are also intact. Normal speech, volume and content. Symmetrical smile. MUSCULOSKELETAL: Normal extremities with adequate strength and full range of motion. No lower extremity swelling or edema. No calf tenderness. LYMPHATICS: No significant lymphadenopathy is noted PSYCHIATRIC: Normal psychiatric evaluation. Limitations: no limitations Course Vital Signs 10/10/23 07:36 Temperature 98.4 F Pulse Rate 77 Respiratory 20 Rate Blood Pressure 148/79 O2 Sat by Pulse 97 Oximetry Medical Decision Making - Medical Decision Making Was pt. sent in by a medical professional or institution (, PA, PHYSICIAN OFFICE SECRETARY, urgent care, hospital, or snf...) When possible be specific @ -No Did you speak to anyone other than the patient for history (EMS, parent, family, police, friend...)? What history was obtained from this source @ -No Did you review nursing and triage notes (agree or disagree)? Why? @ -I reviewed and agree with nursing and triage notes Were old charts reviewed (outside hosp., previous admission, EMS record, old E KG, old radiological studies, urgent care reports/EKG's, snf records)? Report findings @ -I reviewed prior charts and prior lab work on this patient Differential Diagnosis (chest pain, altered mental status, abdominal pain women, abdominal pain men, vaginal bleeding, weakness, fever, dyspnea, syncope, headache, dizziness, GI bleed, back pain, seizure, CVA, palpatations, mental health, musculoskeletal)? @ -Gastroenteritis, viral syndrome, infectious diarrhea, this is not an all-inclusive list EKG interpreted by me (3pts min.). @ -As above X-rays interpreted by me (1pt min.). @ -None done CT interpreted by me (1pt min.). @ -None done U/S interpreted by me (1pt. min.). @ -None done What testing was considered but not performed or refused? (CT, X-rays, U/S, labs)? Why? @ -None What meds were considered but not given or refused? Why? @ -None Did you discuss the management of the patient with other professionals (professionals i.e. , PA, PHYSICIAN OFFICE SECRETARY, lab, RT, psych nurse, bilingual social worker, attorney lawyer, teacher, licensed mortgage loan officer, case managers)? Give summary @ -No Was smoking cessation discussed for >3mins.? @ -No Was critical care preformed (if so, how long)? @ -No Were there social determinants of health that impacted care today? How? (Homelessness, low income, unemployed, alcoholism, drug addiction, transportation, low edu. Level, literacy, decrease access to med. care, half-way, rehab)? @ -No Was there de-escalation of care discussed even if they declined (Discuss DNR or withdrawal of care, Hospice)? DNR status @ -No What co-morbidities impacted this encounter? (DM, HTN, Smoking, COPD, CAD, Cancer, CVA, ARF, Chemo, Hep., AIDS, mental health diagnosis, sleep apnea, morbid obesity)? @ -None Was patient admitted / discharged? Hospital course, mention meds given and route, prescriptions, significant lab abnormalities, going to OR and other pertinent info. @ -Patient received Lomotil and Zofran while in emergency department as well as a liter of fluid. Patient was feeling better and she had no vomiting or diarrhea in the emergency department Undiagnosed new problem with uncertain prognosis? @ -No Drug Therapy requiring intensive monitoring for toxicity (Heparin, Nitro, Insulin, Cardizem)? @ -No Were any procedures done? @ -No Diagnosis/symptom? @ -Gastroenteritis Acute, or Chronic, or Acute on Chronic? @ -Acute Uncomplicated (without systemic symptoms) or Complicated (systemic symptoms)? @ -Complicated Side effects of treatment? @ -No Exacerbation, Progression, or Severe Exacerbation? @ -No Poses a threat to life or bodily function? How? (Chest pain, [place], CA, pneumonia, PE, COPD, DKA, ARF, appy, cholecystitis, CVA, Diverticulitis, Homicidal, Suicidal, threat to staff... and all critical care pts) @ -No - Lab Data Result diagrams: 10/10/23 07:53 10/10/23 07:53 Lab Results 10/10/23 10/10/23 Range/Units 07:53 07:53 WBC 13.8 H (3.8-10.6) k/uL RBC 5.15 (3.80-5.40) m/uL Hgb 15.0 (11.4-16.0) gm/dL Hct 45.6 (34.0-46.0) % MCV 88.6 (80.0-100.0) fL MCH 29.0 (25.0-35.0) pg MCHC 32.8 (31.0-37.0) g/dL RDW 15.1 (11.5-15.5) % Plt Count 237 (150-450) k/uL MPV 7.5 Neutrophils % 83 % Lymphocytes % 8 % Monocytes % 3 % Eosinophils % 4 % Basophils % 0 % Neutrophils # 11.5 H (1.3-7.7) k/uL Lymphocytes # 1.1 (1.0-4.8) k/uL Monocytes # 0.4 (0-1.0) k/uL Eosinophils # 0.6 (0-0.7) k/uL Basophils # 0.0 (0-0.2) k/uL Sodium 138 (137-145) mmol/L Potassium 4.4 (3.5-5.1) mmol/L Chloride 107 (98-107) mmol/L Carbon Dioxide 20 L (22-30) mmol/L Anion Gap 11 mmol/L BUN 11 (7-17) mg/dL Creatinine 0.67 (0.52-1.04) mg/dL Est GFR (CKD-EPI)AfAm >90 (>60 ml/min/1.73 sqM) Est GFR (CKD-EPI)NonAf >90 (>60 ml/min/1.73 sqM) Glucose 148 H (74-99) mg/dL Calcium 9.2 (8.4-10.2) mg/dL Total Bilirubin 0.6 (0.2-1.3) mg/dL AST 55 H (14-36) U/L ALT 53 H (4-34) U/L Alkaline Phosphatase 130 H (38-126) U/L Total Protein 7.9 (6.3-8.2) g/dL Albumin 4.3 (3.5-5.0) g/dL Disposition Clinical Impression: Gastroenteritis Disposition: HOME SELF-CARE Condition: Good Instructions (If sedation given, give patient instructions): Gastroenteritis (ED) Is patient prescribed a controlled substance at d/c from ED?: No Referrals: [facility] [Primary Care Provider] - 1-2 days Time of Disposition: 09:08
[2023-10-10 07:59] VITALS: TEMP 98.4
[2023-10-10 08:08] LABS: Basophils % (A) 0 %; Eosinophils # (A) 0.6 k/uL (0-0.7); Eosinophils % (A) 4 %; HCT 45.6 % (34.0-46.0); Lymphocytes # (A) 1.1 k/uL (1.0-4.8); Lymphocytes % (A) 8 %; MCHC 32.8 g/dL (31.0-37.0); MCV 88.6 fL (80.0-100.0); Mean Platelet Volume 7.5; Monocytes # (A) 0.4 k/uL (0-1.0); Monocytes % (A) 3 %; Neutrophils # (A) 11.5 k/uL (1.3-7.7); Neutrophils % (A) 83 %; Platelet Count 237 k/uL (150-450); RBC 5.15 m/uL (3.80-5.40); RDW 15.1 % (11.5-15.5); WBC 13.8 k/uL (3.8-10.6)
[2023-10-10 08:21] LABS: ALT 53 U/L (4-34); AST 55 U/L (14-36); African American GFR (CKD) >90 (>60 ml/min/1.73 sqM); Albumin 4.3 g/dL (3.5-5.0); Alkaline Phosphatase 130 U/L (38-126); Anion Gap 11 mmol/L; Blood Urea Nitrogen 11 mg/dL (7-17); Calcium 9.2 mg/dL (8.4-10.2); Carbon Dioxide 20 mmol/L (22-30); Chloride 107 mmol/L (98-107); Glucose 148 mg/dL (74-99); Non-African American GFR(CKD) >90 (>60 ml/min/1.73 sqM); Potassium 4.4 mmol/L (3.5-5.1); Sodium 138 mmol/L (137-145); Total Bilirubin 0.6 mg/dL (0.2-1.3); Total Protein 7.9 g/dL (6.3-8.2)
[2023-10-10] MEDS: ONDANSETRON 4 MG ODT STARTER PACK 2 TAB BTL PO STA (09:16)
[2023-10-10] MEDS: DIPHENOX-ATROP STARTER PACK 8 TAB BTL PO STA (09:16)
[2023-10-10 09:41] VITALS: BP 129/74; PULSE 69; RESP 18
== END 2023-10-10 09:20 | disposition home or self-care (01) ==
LOC: EC 07:30
DX: K52.9 Noninfective gastroenteritis and colitis, unspecified (principal); J44.89 Other specified chronic obstructive pulmonary disease; I11.0 Hypertensive heart disease with heart failure; I50.9 Heart failure, unspecified; K21.9 Gastro-esophageal reflux disease without esophagitis; Z86.59 Personal history of other mental and behavioral disorders; Z79.82 Long term (current) use of aspirin; Z79.899 Other long term (current) drug therapy; Z91.041 Radiographic dye allergy status; Z91.010 Allergy to peanuts; Z88.0 Allergy status to penicillin; Z91.013 Allergy to seafood; Z88.5 Allergy status to narcotic agent; Z88.8 Allergy status to other drugs, medicaments and biological substances; Z88.1 Allergy status to other antibiotic agents
CPT/HCPCS: 36415; 80053; 85025; 99284; 96374; 96361; J2405; S0119

== ENCOUNTER 2023-10-13 19:17 | Emergency (ER) | payer OTHER ==
[2023-10-13 20:29] LABS: Basophils # (A) 0.1 k/uL (0-0.2); Basophils % (A) 1 %; Eosinophils # (A) 0.4 k/uL (0-0.7); Eosinophils % (A) 4 %; HCT 40.1 % (34.0-46.0); HGB 13.3 gm/dL (11.4-16.0); Lymphocytes # (A) 2.3 k/uL (1.0-4.8); Lymphocytes % (A) 23 %; MCH 29.4 pg (25.0-35.0); MCHC 33.2 g/dL (31.0-37.0); MCV 88.5 fL (80.0-100.0); Mean Platelet Volume 7.6; Monocytes # (A) 0.5 k/uL (0-1.0); Monocytes % (A) 5 %; Neutrophils # (A) 6.8 k/uL (1.3-7.7); Neutrophils % (A) 66 %; Platelet Count 219 k/uL (150-450); RBC 4.53 m/uL (3.80-5.40); RDW 14.8 % (11.5-15.5); WBC 10.3 k/uL (3.8-10.6)
[2023-10-13] MEDS: ONDANSETRON 4 MG/2 ML VIAL IVP STA (20:32)
[2023-10-13 20:56] LABS: Appearance,Urine Cloudy (Clear); Bacteria,Urine Rare /hpf; Bilirubin,Urine Negative (Negative); Blood,Urine Large (Negative); Color,Urine Yellow; Glucose,Urine (UA) Negative (Negative); Ketones,Urine Negative (Negative); Leukocyte Esterase,Urine Negative (Negative); Mucus,Urine Few /hpf; Nitrite,Urine Negative (Negative); Protein,Urine 1+ (Negative); RBC,Urine >182 /hpf (0-5); Specific Gravity,Urine 1.024 (1.001-1.035); Squamous Epithelial Cell,Urine 9 /hpf (0-4); Urobilinogen,Urine <2.0 mg/dL (<2.0); WBC,Urine 7 /hpf (0-5)
[2023-10-13 21:05] LABS: ALT 66 U/L (4-34); AST 53 U/L (14-36); African American GFR (CKD) >90 (>60 ml/min/1.73 sqM); Albumin 3.5 g/dL (3.5-5.0); Alkaline Phosphatase 105 U/L (38-126); Amylase 46 U/L (30-110); Anion Gap 12 mmol/L; Blood Urea Nitrogen 13 mg/dL (7-17); Calcium 8.7 mg/dL (8.4-10.2); Carbon Dioxide 18 mmol/L (22-30); Chloride 109 mmol/L (98-107); Glucose 109 mg/dL (74-99); Lipase 120 U/L (23-300); Non-African American GFR(CKD) >90 (>60 ml/min/1.73 sqM); Potassium 3.6 mmol/L (3.5-5.1); Sodium 139 mmol/L (137-145); Total Bilirubin 0.2 mg/dL (0.2-1.3); Total Protein 6.8 g/dL (6.3-8.2)
--- NOTE | 2023-10-13 21:18 | ED ---
Abdominal Pain HPI - General Chief Complaint: Abdominal Pain Stated Complaint: Blood in Stool, Nausea Time Seen by Provider: 10/13/23 19:20 Source: patient Mode of arrival: EMS - History of Present Illness Initial Comments: 43-year-old female presents to the ED with a chief complaint of abdominal pain. Patient recently seen here 3 days ago with complaints of diffuse abdominal pain, nausea, vomiting, diarrhea. Patient was then discharged home. Reports that she has been taking Imodium however despite this has still been having copious amounts of diarrhea. States that she often soils herself secondary to this. Also notes that she has had some ongoing nausea and vomiting and has had difficulty tolerating food. Associated diffuse abdominal pain. Denies fever or chills. No chest pain or shortness of breath. No other complaints at this time. Patient is a vague historian. - Related Data Home Medications Medication Instructions Recorded Confirmed Montelukast [Singulair] 10 mg PO HS 12/16/19 02/17/23 Omeprazole 20 mg PO DAILY 12/16/19 02/17/23 allopurinoL [Zyloprim] 100 mg PO DAILY 12/16/19 02/17/23 Aspirin EC [Ecotrin Low Dose] 81 mg PO DAILY 04/12/20 02/17/23 calcium polycarbophiL [Fibercon] 1,250 mg PO BID PRN 09/04/20 02/17/23 Loratadine [Claritin] 10 mg PO DAILY 12/22/20 02/17/23 Albuterol Sulfate [Proair Hfa] 2 puff INHALATION RT-QID PRN 12/12/21 02/17/23 Cholecalciferol [Vitamin D3 (125 125 mcg PO DAILY 12/12/21 02/17/23 Mcg = 5000 Iu)] Docusate 250mg Cap 250 mg PO BID 12/12/21 02/17/23 Fenofibrate [Lofibra] 54 mg PO DAILY 12/12/21 02/17/23 Folic Acid 1 mg PO DAILY 12/12/21 02/17/23 Linaclotide [Linzess] 145 mcg PO DAILY 12/12/21 02/17/23 Scx-Peam-Mxeac Acid 1 cap PO DAILY 08/05/22 02/17/23 [-U Capsule (formulary)] guaiFENesin-DM 100-10MG/5ML 10 ml PO Q6H PRN 08/05/22 02/17/23 [Robitussin DM] Baclofen [Lioresal] 10 mg PO HS PRN 11/21/22 02/17/23 Bismuth Subsalicylate [Kaopectate] 524 mg PO Q6H PRN 11/21/22 02/17/23 Budesonide/Formoterol Fumarate 2 puff INHALATION RT-BID 11/21/22 02/17/23 [Symbicort 80-4.5 Mcg Inhaler] Fluticasone Nasal [place] [Flonase 1 spray EA NOSTRIL DAILY 11/21/22 02/17/23 Nasal [place]] Fluticasone Propionate 220 Mcg 2 puff INHALATION RT-BID 11/21/22 02/17/23 [Flovent 220 Mcg Inhaler] Furosemide [Lasix] 20 mg PO DAILY 11/21/22 02/17/23 Losartan Potassium 100 mg PO DAILY 11/21/22 02/17/23 Nystatin 100,000 Unit/gm Powd 1 applic TOPICAL BID PRN 11/21/22 02/17/23 [Mycostatin Powder] Nystatin 100,000Unit/gm Cream 1 applic TOPICAL BID PRN 11/21/22 02/17/23 [Mycostatin Cream] polyethylene glycoL 3350 [Miralax] 17 gm PO DAILY PRN 11/21/22 02/17/23 Clotrimazole Cream [Lotrimin Cream] 1 applic TOPICAL TID 12/07/22 02/17/23 Previous Rx's Medication Instructions Recorded Promethazine 6.25MG/5Ml [Phenergan 5 ml PO TID PRN #120 ml 11/11/22 Syrup] Ondansetron Odt [Zofran ODT] 4 mg PO Q8HR PRN #15 tab 12/07/22 Metoclopramide [Reglan] 5 mg PO ACHS #12 tab 12/09/22 ARIPiprazole [Abilify] 10 mg PO HS 30 Days #30 tab 02/22/23 DULoxetine HCL [Cymbalta] 60 mg PO DAILY 30 Days #30 cap 02/22/23 Naltrexone HCl [Revia] 50 mg PO DAILY 30 Days #30 tab 02/22/23 Zonisamide [Zonegran] 300 mg PO HS 30 Days #90 cap 02/22/23 metFORMIN HCL [Glucophage] 1,000 mg PO BID 15 Days #60 tab 02/22/23 Azithromycin [Zithromax] 250 mg PO DIRECTED #6 tab 05/13/23 Ondansetron Odt [Zofran Odt] 4 mg PO Q8HR PRN #15 tab 05/13/23 Promethazine/Dextromethorphan 5 ml PO Q4-6H PRN #473 ml 05/13/23 [Promethazine-Dm Syrup] Cyclobenzaprine [Flexeril] 5 mg PO TID PRN 5 Days #15 tablet 06/06/23 Lidocaine 5% Patch [Lidoderm 5% 1 patch TOPICAL DAILY PRN 14 Days 06/06/23 Patch] #14 patch Furosemide [Lasix] 20 mg PO BID #30 tab 10/09/23 metFORMIN HCL [Glucophage] 1,000 mg PO BID #30 tab 10/09/23 Azithromycin [Zithromax] 500 mg PO DAILY 3 Days #3 tab 10/13/23 Allergies Allergy/AdvReac Type Severity Reaction Status Date / Time Iodinated Contrast Media Allergy Anaphylaxis Verified 10/13/23 19:34 [Iodinated Contrast Media - IV Dye] lacosamide [From Vimpat] Allergy Anaphylaxis Verified 10/13/23 19:34 peanut Allergy Anaphylaxis Verified 10/13/23 19:34 Penicillins Allergy Anaphylaxis Verified 10/13/23 19:34 shellfish derived Allergy Anaphylaxis Verified 10/13/23 19:34 cephalexin monohydrate AdvReac Nausea & Verified 10/13/23 19:34 [From Keflex] Vomiting & Diarrhea trazodone AdvReac bp Verified 10/13/23 19:34 issues/dizziness Review of Systems ROS Statement: Those systems with pertinent positive or pertinent negative responses have been documented in the HPI. ROS Other: All systems not noted in ROS Statement are negative. Past Medical History Past Medical History: Asthma, Heart Failure, COPD, Fibromyalgia, GERD/Reflux, GI Bleed, Hypertension, Liver Disease, Osteoarthritis (OA), Pneumonia, Seizure Disorder, Skin Disorder Additional Past Medical History / Comment(s): Bronchitis, gestational diabetes, seizures with last one 09/03/20, sickle cell trait, liver cirrhosis, anemia, chrons, IBS, ulcerative colitis, lowr GI bleed, hemorrhoids, constipation, psoriasis, migraines, chronic low back and cervical pain, scoliosis, arhtritis in multiple joints, gout bilateral feet, History of Any Multi-Drug Resistant Organisms: None Reported Past Surgical History: Cholecystectomy, Orthopedic Surgery Additional Past Surgical History / Comment(s): L oophorectomy d/t cyst, D&C, colonoscopy, L carpal tunnel release, Past Anesthesia/Blood Transfusion Reactions: Motion Sickness, Postoperative Nausea & Vomiting (PONV) Past Psychological History: Anxiety, Bipolar, Depression, Schizophrenia Smoking Status: Current every day smoker Past Alcohol Use History: None Reported Past Drug Use History: None Reported - Past Family History Mother History Unknown: Yes Family Medical History: Cancer Additional Family Medical History / Comment(s): Mother had breast cancer and metnal illness She is living. Father Family Medical History: Cancer Additional Family Medical History / Comment(s): Father is . He had agent orange exposure. He had liver cancer, bowel to brain cancer. General Exam General appearance: alert, in no apparent distress Eye exam: Present: normal appearance Neck exam: Present: normal inspection Respiratory exam: Present: normal lung sounds bilaterally Cardiovascular Exam: Present: regular rate, normal rhythm GI/Abdominal exam: Present: soft (Diffuse abdominal tenderness to palpation. No rebound guarding or rigidity.) Neurological exam: Present: alert, oriented X3 Skin exam: Present: warm, dry Course Vital Signs 10/13/23 10/13/23 10/13/23 19:36 20:36 21:53 Pulse Rate 63 79 64 Respiratory 16 13 19 Rate Blood Pressure 121/53 122/59 125/63 O2 Sat by Pulse 97 97 Oximetry Medical Decision Making - Medical Decision Making Was pt. sent in by a medical professional or institution (, PA, ASSOCIATE FIELD SERVICE ENGINEER, urgent care, hospital, or alf...) When possible be specific @ -No Did you speak to anyone other than the patient for history (EMS, parent, family, police, friend...)? What history was obtained from this source @ -No Did you review nursing and triage notes (agree or disagree)? Why? @ -I reviewed and agree with nursing and triage notes Were old charts reviewed (outside hosp., previous admission, EMS record, old EKG, old radiological studies, urgent care reports/EKG's, alf records)? Report findings @ -Differential Abdominal Pain Women: Appendicitis, Cholecystitis, diverticulosis, ischemic bowel, pancreatitis, hepatitis, UTI, gastroenteritis, AAA, incarcerated hernia, bowel obstruction, constipation, inflammatory bowel, hepatitis, peptic ulcer disease, splenic infarction, perforated viscus, vulvitis, ovarian torsion, PID, kidney stone, placenta abruption, this is not meant to be an all-inclusive list Differential Diagnosis (chest pain, altered mental status, abdominal pain women, abdominal pain men, vaginal bleeding, weakness, fever, dyspnea, syncope, headache, dizziness, GI bleed, back pain, seizure, CVA, palpatations, mental health, musculoskeletal)? @ -Reviewed prior note showing patient previously seen here for the same complaints. EKG interpreted by me (3pts min.). @ -As above X-rays interpreted by me (1pt min.). @ -None done CT interpreted by me (1pt min.). @ -CT abdomen pelvis interpreted me which did show some findings consistent with nonspecific diarrheal illness. No other acute findings. U/S interpreted by me (1pt. min.). @ -None done What testing was considered but not performed or refused? (CT, X-rays, U/S, labs)? Why? @ -None What meds were considered but not given or refused? Why? @ -None Did you discuss the management of the patient with other professionals (professionals i.e. , PA, ASSOCIATE FIELD SERVICE ENGINEER, lab, RT, psych nurse, 7th grade social studies teacher, manufacturing technology analyst, teacher, corporate security officer, keycase assembler)? Give summary @ -No Was smoking cessation discussed for >3mins.? @ -No Was critical care preformed (if so, how long)? @ -No Were there social determinants of health that impacted care today? How? (Homelessness, low income, unemployed, alcoholism, drug addiction, transportati on, low edu. Level, literacy, decrease access to med. care, half-way, rehab)? @ -No Was there de-escalation of care discussed even if they declined (Discuss DNR or withdrawal of care, Hospice)? DNR status @ -No What co-morbidities impacted this encounter? (DM, HTN, Smoking, COPD, CAD, Cancer, CVA, ARF, Chemo, Hep., AIDS, mental health diagnosis, sleep apnea, morbid obesity)? @ -None Was patient admitted / discharged? Hospital course, mention meds given and route, prescriptions, significant lab abnormalities, going to OR and other pertinent info. @ -Discharge 43-year-old female presented to the ED with complaints of generalized abdominal pain, nausea, diarrhea for the last few days. Laboratory studies reviewed. CBC largely unremarkable. Chemistry panel largely unremarkable. UA is significant for greater than 182 red blood cells. Patient reports that this has been an ongoing issue. CT abdomen pelvis showed colonic findings suggestive of nonspecific diarrheal illness. No other acute findings. Patient provided prescription for azithromycin. In regards to hematuria, reports has been ongoing. Provided referral to see urology. Discharged home in stable c ondition. Discussed return precautions with patient who verbalized agreement. Undiagnosed new problem with uncertain prognosis? @ -No Drug Therapy requiring intensive monitoring for toxicity (Heparin, Nitro, Insulin, Cardizem)? @ -No Were any procedures done? @ -No Diagnosis/symptom? @ -Gastroenteritis Acute, or Chronic, or Acute on Chronic? @ -Acute Uncomplicated (without systemic symptoms) or Complicated (systemic symptoms)? @ -Uncomplicated Side effects of treatment? @ -No Exacerbation, Progression, or Severe Exacerbation? @ -No Poses a threat to life or bodily function? How? (Chest pain, [place], [place], pneumonia, PE, COPD, DKA, ARF, appy, cholecystitis, CVA, Diverticulitis, Homicidal, Suicidal, threat to staff... and all critical care pts) @ -No - Lab Data Result diagrams: 10/13/23 20:10 10/13/23 20:10 Lab Results 10/13/23 10/13/23 10/13/23 Range/Units 20:10 20:10 20:10 WBC 10.3 (3.8-10.6) k/uL RBC 4.53 (3.80-5.40) m/uL Hgb 13.3 (11.4-16.0) gm/dL Hct 40.1 (34.0-46.0) % MCV 88.5 (80.0-100.0) fL MCH 29.4 (25.0-35.0) pg MCHC 33.2 (31.0-37.0) g/dL RDW 14.8 (11.5-15.5) % Plt Count 219 (150-450) k/uL MPV 7.6 Neutrophils % 66 % Lymphocytes % 23 % Monocytes % 5 % Eosinophils % 4 % Basophils % 1 % Neutrophils # 6.8 (1.3-7.7) k/uL Lymphocytes # 2.3 (1.0-4.8) k/uL Monocytes # 0.5 (0-1.0) k/uL Eosinophils # 0.4 (0-0.7) k/uL Basophils # 0.1 (0-0.2) k/uL Sodium 139 (137-145) mmol/L Potassium 3.6 (3.5-5.1) mmol/L Chloride 109 H (98-107) mmol/L Carbon Dioxide 18 L (22-30) mmol/L Anion Gap 12 mmol/L BUN 13 (7-17) mg/dL Creatinine 0.70 (0.52-1.04) mg/dL Est GFR (CKD-EPI)AfAm >90 (>60 ml/min/1.73 sqM) Est GFR (CKD-EPI)NonAf >90 (>60 ml/min/1.73 sqM) Glucose 109 H (74-99) mg/dL Calcium 8.7 (8.4-10.2) mg/dL Total Bilirubin 0.2 (0.2-1.3) mg/dL AST 53 H (14-36) U/L ALT 66 H (4-34) U/L Alkaline Phosphatase 105 (38-126) U/L Total Protein 6.8 (6.3-8.2) g/dL Albumin 3.5 (3.5-5.0) g/dL Amylase 46 (30-110) U/L Lipase 120 (23-300) U/L Urine Color Urine Appearance (Clear) Urine pH (5.0-8.0) Ur Specific [place] (1.001-1.035) Urine Protein (Negative) Urine Glucose (UA) (Negative) Urine Ketones (Negative) Urine Blood (Negative) Urine Nitrite (Negative) Urine Bilirubin (Negative) Urine Urobilinogen (<2.0) mg/dL Ur Leukocyte Esterase (Negative) Urine RBC (0-5) /hpf Urine WBC (0-5) /hpf Ur Squamous Epith Cells (0-4) /hpf Urine Bacteria (None) /hpf Urine Mucus (None) /hpf C. difficile (EIA) Intrp (Negative) Influenza Type A (PCR) Not Detected (Not Detectd) Influenza Type B (PCR) Not Detected (Not Detectd) RSV (PCR) Not Detected (Not Detectd) SARS-CoV-2 (PCR) Not Detected (Not Detectd) 10/13/23 10/13/23 Range/Units 20:35 21:06 WBC (3.8-10.6) k/uL RBC (3.80-5.40) m/uL Hgb (11.4-16.0) gm/dL Hct (34.0-46.0) % MCV (80.0-100.0) fL MCH (25.0-35.0) pg MCHC (31.0-37.0) g/dL RDW (11.5-15.5) % Plt Count (150-450) k/uL MPV Neutrophils % % Lymphocytes % % Monocytes % % Eosinophils % % Basophils % % Neutrophils # (1.3-7.7) k/uL Lymphocytes # (1.0-4.8) k/uL Monocytes # (0-1.0) k/uL Eosinophils # (0-0.7) k/uL Basophils # (0-0.2) k/uL Sodium (137-145) mmol/L Potassium (3.5-5.1) mmol/L Chloride (98-107) mmol/L Carbon Dioxide (22-30) mmol/L Anion Gap mmol/L BUN (7-17) mg/dL Creatinine (0.52-1.04) mg/dL Est GFR (CKD-EPI)AfAm (>60 ml/min/1.73 sqM) Est GFR (CKD-EPI)NonAf (>60 ml/min/1.73 sqM) Glucose (74-99) mg/dL Calcium (8.4-10.2) mg/dL Total Bilirubin (0.2-1.3) mg/dL AST (14-36) U/L ALT (4-34) U/L Alkaline Phosphatase (38-126) U/L Total Protein (6.3-8.2) g/dL Albumin (3.5-5.0) g/dL Amylase (30-110) U/L Lipase (23-300) U/L Urine Color Yellow Urine Appearance Cloudy H (Clear) Urine pH 6.0 (5.0-8.0) Ur Specific [place] 1.024 (1.001-1.035) Urine Protein 1+ H (Negative) Urine Glucose (UA) Negative (Negative) Urine Ketones Negative (Negative) Urine Blood Large H (Negative) Urine Nitrite Negative (Negative) Urine Bilirubin Negative (Negative) Urine Urobilinogen <2.0 (<2.0) mg/dL Ur Leukocyte Esterase Negative (Negative) Urine RBC >182 H (0-5) /hpf Urine WBC 7 H (0-5) /hpf Ur Squamous Epith Cells 9 H (0-4) /hpf Urine Bacteria Rare H (None) /hpf Urine Mucus Few H (None) /hpf C. difficile (EIA) Intrp Negative (Negative) Influenza Type A (PCR) (Not Detectd) Influenza Type B (PCR) (Not Detectd) RSV (PCR) (Not Detectd) SARS-CoV-2 (PCR) (Not Detectd) Disposition Clinical Impression: Gastroenteritis Disposition: HOME SELF-CARE Condition: Good Additional Instructions: Please return to the Emergency Department if symptoms worsen or any other concerns. Take antibiotics as prescribed. Continue taking Imodium as needed for diarrhea. In regards to blood in your urine please follow-up with urology. Prescriptions: Azithromycin [Zithromax] 500 mg PO DAILY 3 Days #3 tab Is patient prescribed a controlled substance at d/c from ED?: No Referrals: [facility] [Primary Care Provider] - 1-2 days Time of Disposition: 23:00
[2023-10-13 22:05] VITALS: BP 125/63; PULSE 64; RESP 19
--- NOTE | 2023-10-13 22:48 | CT ---
EXAMINATION TYPE: CT abdomen pelvis wo con CT DLP: 1742.4 mGycm, Automated exposure control for dose reduction was used. DATE OF EXAM: 10/13/2023 8:30 PM COMPARISON: None. CLINICAL INDICATION:Female, 43 years old with history of generalized abd pain, n/v/d; abdominal pain with n/v/d. TECHNIQUE: Axial CT of the abdomen and pelvis. Sagittal and coronal reformats were created on a [employer] workstation. Contrast used: mL of , (none if empty) Oral contrast used: without Oral Contrast (none if empty) FINDINGS: Exam is limited by lack of IV contrast and the patient's large body habitus. LOWER CHEST: Unremarkable ABDOMEN LIVER: Appears enlarged with length of up to 22 cm. Heterogeneous decreased attenuation consistent wi th hepatic steatosis. Partial eventration noted along the bilateral hemidiaphragms. GALLBLADDER AND BILE DUCTS: The gallbladder is surgically absent. Biliary tree does not appear pathol ogically dilated. PANCREAS: Mild fatty atrophy without acute finding SPLEEN: Unremarkable. ADRENAL GLANDS: Unremarkable. KIDNEYS AND URETERS: Left kidney is somewhat small or atrophic compared to the right; the left is 9.2 cm in length, right 11 cm. Small calcification in the superior pole on the left is likely to be pare nchymal. Small rounded hypodensity in the mid kidney has the appearance of a cyst. No definite urinar y tract calculi or hydronephrosis bilaterally. PELVIS BLADDER: Unremarkable REPRODUCTIVE: Uterus is anteflexed, deviates slightly into the right pelvis. Right adnexal hyperdensi ty suggesting tubal ligation clip in place. There is a similar appearing structure in the posterior p fabio on the right near the rectum which could represent a displaced left tubal ligation clip. ABDOMEN & PELVIS STOMACH AND BOWEL: Stomach is mildly distended by heterogeneous material, likely foodstuffs. Patent d uodenal sweep. There may be a small duodenal diverticulum. No significantly dilated loops of small kane wel are seen. Appendix appears normal. There is mild/moderate fluid and gas distention of the colon, without much formed stool evident. Some segments of colon are nondistended and not well assessed. PERITONEUM/RETROPERITONEUM: No evidence of pneumoperitoneum or free fluid. VASCULATURE: Mild atherosclerotic calcifications are present throughout the abdominal aorta and its b ranches. No evidence of aortic aneurysm. LYMPH NODES: No enlarged lymph nodes by CT criteria. There are a few radiodensities suggesting surgic al clips in the precaval region to the right of the distal abdominal aorta and along the left iliac v asculature. SOFT TISSUE/ABDOMINAL WALL: Mild body wall edema. Probable granuloma in the subcutaneous right glutea l region. MUSCULOSKELETAL: No acute bony abnormality. Mild/moderate multilevel degenerative changes throughout the visualized thoracolumbar spine. This seems probably most significant at the L3-L4 level where pos terior disc osteophyte complex and moderate facet disease results in moderate to severe narrowing of the spinal canal and neural foramina. IMPRESSION: 1. No acute inflammatory or obstructive abnormality identified. Normal appendix. 2. Colonic findings suggestive of nonspecific diarrheal illness. 3. Hepatomegaly and hepatic steatosis. 4. Other chronic and likely incidental findings, as described above.
== END 2023-10-13 23:34 | disposition home or self-care (01) ==
LOC: EC 19:17
DX: K52.9 Noninfective gastroenteritis and colitis, unspecified (principal); J44.89 Other specified chronic obstructive pulmonary disease; I11.0 Hypertensive heart disease with heart failure; I50.9 Heart failure, unspecified; K21.9 Gastro-esophageal reflux disease without esophagitis; F41.9 Anxiety disorder, unspecified; F31.9 Bipolar disorder, unspecified; M79.7 Fibromyalgia; F20.9 Schizophrenia, unspecified; M19.90 Unspecified osteoarthritis, unspecified site; M10.9 Gout, unspecified; F17.200 Nicotine dependence, unspecified, uncomplicated; Z20.822 Contact with and (suspected) exposure to COVID-19; Z79.82 Long term (current) use of aspirin; Z79.51 Long term (current) use of inhaled steroids; Z79.899 Other long term (current) drug therapy; Z88.0 Allergy status to penicillin; Z88.1 Allergy status to other antibiotic agents; Z88.8 Allergy status to other drugs, medicaments and biological substances; Z91.041 Radiographic dye allergy status; Z91.010 Allergy to peanuts; Z91.013 Allergy to seafood; Z90.49 Acquired absence of other specified parts of digestive tract
CPT/HCPCS: 99285; 96374; 36415; 80053; 82150; 83690; 85025; 81001; 87324; 87045; 87046; 87636; 74176; J2405

== ENCOUNTER 2023-10-25 05:02 | Emergency (ER) | payer OTHER ==
--- NOTE | 2023-10-25 05:51 | ED ---
Psych HPI - General Source: patient, RN notes reviewed, old records reviewed Mode of arrival: ambulatory Limitations: no limitations - History of Present Illness MD Complaint: suicidal ideation, feels depressed -: hour(s) Associated Psychiatric Symptoms: depression, suicidal ideation History of same: Yes Quality: constant Improves With: none Worsens With: none Context: significant life stressor Associated Symptoms: denies other symptoms Treatments Prior to Arrival: placed on mental health hold If Self Harm: admits thoughts of self harm <Stefano Mirza - Last Filed: 10/25/23 05:48> <Stefano Gore - Last Filed: 10/25/23 12:18> - General Chief Complaint: Psychiatric Symptoms Stated Complaint: Sucidial back pain Time Seen by Provider: 10/25/23 05:05 - History of Present Illness Initial Comments: This is a 43-year-old female to ER for psychiatric evaluation today. She has a long complicated medical history presents for psychiatric evaluation and treatment (Stefano Mirza) - Related Data Home Medications Medication Instructions Recorded Confirmed Montelukast [Singulair] 10 mg PO HS 12/16/19 02/17/23 Omeprazole 20 mg PO DAILY 12/16/19 02/17/23 allopurinoL [Zyloprim] 100 mg PO DAILY 12/16/19 02/17/23 Aspirin EC [Ecotrin Low Dose] 81 mg PO DAILY 04/12/20 02/17/23 calcium polycarbophiL [Fibercon] 1,250 mg PO BID PRN 09/04/20 02/17/23 Loratadine [Claritin] 10 mg PO DAILY 12/22/20 02/17/23 Albuterol Sulfate [Proair Hfa] 2 puff INHALATION RT-QID PRN 12/12/21 02/17/23 Cholecalciferol [Vitamin D3 (125 125 mcg PO DAILY 12/12/21 02/17/23 Mcg = 5000 Iu)] Docusate 250mg Cap 250 mg PO BID 12/12/21 02/17/23 Fenofibrate [Lofibra] 54 mg PO DAILY 12/12/21 02/17/23 Folic Acid 1 mg PO DAILY 12/12/21 02/17/23 Linaclotide [Linzess] 145 mcg PO DAILY 12/12/21 02/17/23 Krl-Bypw-Wlstr Acid 1 cap PO DAILY 08/05/22 02/17/23 [-U Capsule (formulary)] guaiFENesin-DM 100-10MG/5ML 10 ml PO Q6H PRN 08/05/22 02/17/23 [Robitussin DM] Baclofen [Lioresal] 10 mg PO HS PRN 11/21/22 02/17/23 Bismuth Subsalicylate [Kaopectate] 524 mg PO Q6H PRN 11/21/22 02/17/23 Budesonide/Formoterol Fumarate 2 puff INHALATION RT-BID 11/21/22 02/17/23 [Symbicort 80-4.5 Mcg Inhaler] Fluticasone Nasal [place] [Flonase 1 spray EA NOSTRIL DAILY 11/21/22 02/17/23 Nasal [place]] Fluticasone Propionate 220 Mcg 2 puff INHALATION RT-BID 11/21/22 02/17/23 [Flovent 220 Mcg Inhaler] Furosemide [Lasix] 20 mg PO DAILY 11/21/22 02/17/23 Losartan Potassium 100 mg PO DAILY 11/21/22 02/17/23 Nystatin 100,000 Unit/gm Powd 1 applic TOPICAL BID PRN 11/21/22 02/17/23 [Mycostatin Powder] Nystatin 100,000Unit/gm Cream 1 applic TOPICAL BID PRN 11/21/22 02/17/23 [Mycostatin Cream] polyethylene glycoL 3350 [Miralax] 17 gm PO DAILY PRN 11/21/22 02/17/23 Clotrimazole Cream [Lotrimin Cream] 1 applic TOPICAL TID 12/07/22 02/17/23 Previous Rx's Medication Instructions Recorded Promethazine 6.25MG/5Ml [Phenergan 5 ml PO TID PRN #120 ml 11/11/22 Syrup] Ondansetron Odt [Zofran ODT] 4 mg PO Q8HR PRN #15 tab 12/07/22 Metoclopramide [Reglan] 5 mg PO ACHS #12 tab 12/09/22 ARIPiprazole [Abilify] 10 mg PO HS 30 Days #30 tab 02/22/23 DULoxetine HCL [Cymbalta] 60 mg PO DAILY 30 Days #30 cap 02/22/23 Naltrexone HCl [Revia] 50 mg PO DAILY 30 Days #30 tab 02/22/23 Zonisamide [Zonegran] 300 mg PO HS 30 Days #90 cap 02/22/23 metFORMIN HCL [Glucophage] 1,000 mg PO BID 15 Days #60 tab 02/22/23 Azithromycin [Zithromax] 250 mg PO DIRECTED #6 tab 05/13/23 Ondansetron Odt [Zofran Odt] 4 mg PO Q8HR PRN #15 tab 05/13/23 Promethazine/Dextromethorphan 5 ml PO Q4-6H PRN #473 ml 05/13/23 [Promethazine-Dm Syrup] Cyclobenzaprine [Flexeril] 5 mg PO TID PRN 5 Days #15 tablet 06/06/23 Lidocaine 5% Patch [Lidoderm 5% 1 patch TOPICAL DAILY PRN 14 Days 06/06/23 Patch] #14 patch Furosemide [Lasix] 20 mg PO BID #30 tab 10/09/23 metFORMIN HCL [Glucophage] 1,000 mg PO BID #30 tab 10/09/23 Azithromycin [Zithromax] 500 mg PO DAILY 3 Days #3 tab 10/13/23 Allergies Allergy/AdvReac Type Severity Reaction Status Date / Time Iodinated Contrast Media Allergy Anaphylaxis Verified 10/25/23 05:10 [Iodinated Contrast Media - IV Dye] lacosamide [From Vimpat] Allergy Anaphylaxis Verified 10/25/23 05:10 peanut Allergy Anaphylaxis Verified 10/25/23 05:10 Penicillins Allergy Anaphylaxis Verified 10/25/23 05:10 shellfish derived Allergy Anaphylaxis Verified 10/25/23 05:10 cephalexin monohydrate AdvReac Nausea & Verified 10/25/23 05:10 [From Keflex] Vomiting & Diarrhea trazodone AdvReac bp Verified 10/25/23 05:10 issues/dizziness Review of Systems ROS Other: All systems not noted in ROS Statement are negative. <Stefano Mirza - Last Filed: 10/25/23 05:48> ROS Other: All systems not noted in ROS Statement are negative. <Stefano Gore - Last Filed: 10/25/23 12:18> ROS Statement: Those systems with pertinent positive or pertinent negative responses have been documented in the HPI. Past Medical History Past Medical History: Asthma, Heart Failure, COPD, Fibromyalgia, GERD/Reflux, GI Bleed, Hypertension, Liver Disease, Osteoarthritis (OA), Pneumonia, Seizure Disorder, Skin Disorder Additional Past Medical History / Comment(s): Bronchitis, gestational diabetes, seizures with last one 09/03/20, sickle cell trait, liver cirrhosis, anemia, chrons, IBS, ulcerative colitis, lowr GI bleed, hemorrhoids, constipation, psoriasis, migraines, chronic low back and cervical pain, scoliosis, arhtritis in multiple joints, gout bilateral feet, History of Any Multi-Drug Resistant Organisms: None Reported Past Surgical History: Cholecystectomy, Orthopedic Surgery Additional Past Surgical History / Comment(s): L oophorectomy d/t cyst, D&C, colonoscopy, L carpal tunnel release, Past Anesthesia/Blood Transfusion Reactions: Motion Sickness, Postoperative Nausea & Vomiting (PONV) Past Psychological History: Anxiety, Bipolar, Depression, Schizophrenia Smoking Status: Current every day smoker Past Alcohol Use History: None Reported Past Drug Use History: Cocaine, Opiates - Past Family History Mother History Unknown: Yes Family Medical History: Cancer Additional Family Medical History / Comment(s): Mother had breast cancer and metnal illness She is living. Father Family Medical History: Cancer Additional Family Medical History / Comment(s): Father is . He had agent orange exposure. He had liver cancer, bowel to brain cancer. <Stefano Mirza - Last Filed: 10/25/23 05:48> General Exam Limitations: no limitations General appearance: alert, in no apparent distress Head exam: Present: atraumatic, normocephalic, normal inspection Eye exam: Present: normal appearance, PERRL, EOMI. Absent: scleral icterus, conjunctival injection, periorbital swelling ENT exam: Present: normal exam, mucous membranes moist Neck exam: Present: normal inspection. Absent: tenderness, meningismus, lymphadenopathy Respiratory exam: Present: normal lung sounds bilaterally. Absent: respiratory distress, wheezes, rales, rhonchi, stridor Cardiovascular Exam: Present: regular rate, normal rhythm, normal heart sounds. Absent: systolic murmur, diastolic murmur, rubs, gallop, clicks GI/Abdominal exam: Present: soft, normal bowel sounds. Absent: distended, tenderness, guarding, rebound, rigid Extremities exam: Present: normal inspection, full ROM, normal capillary refill. Absent: tenderness, pedal edema, joint swelling, calf tenderness Back exam: Present: normal inspection Neurological exam: Present: alert, oriented X3, CN II-XII intact Psychiatric exam: Present: normal affect, normal mood Skin exam: Present: warm, dry, intact, normal color. Absent: rash <Stefano Mirza - Last Filed: 10/25/23 05:48> Course <Stefano Mizra - Last Filed: 10/25/23 05:48> Vital Signs 10/25/23 10/25/23 05:09 07:55 Temperature 97.9 F Pulse Rate 60 68 Respiratory 18 16 Rate Blood Pressure 131/72 148/88 O2 Sat by Pulse 96 98 Oximetry - Reevaluation(s) Reevaluation #1: 10/25/23 05:50 medical records reviewed (Stefano Mirza) Reevaluation #2: 10/25/23 05:50 medically clear for psychiatric evaluation (Stefano Mirza) Medical Decision Making - Lab Data Result diagrams: 10/25/23 10:09 10/25/23 10:09 <Stefano Gore - Last Filed: 10/25/23 12:18> - Medical Decision Making Was patient admitted / discharged? Hospital course, mention meds given and route, prescriptions, significant lab abnormalities, going to OR and other pertinent info. @ -Patient was signed out to me by Dr. Mirza. I went in and reevaluated the patient she said she was suicidal she wanted to hang self. I spoke with [facility] they agreed that the patient need to be admitted patient will be transferred to another facility. I filled out a clinical certification Undiagnosed new problem with uncertain prognosis? @ -[No] Drug Therapy requiring intensive monitoring for toxicity (Heparin, Nitro, Insulin, Cardizem)? @ -[No] Were any procedures done? @ -[No] Diagnosis/symptom? @ -Suicidal ideation acute Acute, or Chronic, or Acute on Chronic? @ -Acute Uncomplicated (without systemic symptoms) or Complicated (systemic symptoms)? @ -Complicated Side effects of treatment? @ -[No] Exacerbation, Progression, or Severe Exacerbation? @ -[No] Poses a threat to life or bodily function? How? (Chest pain, [place], [place], pneumonia, PE, COPD, DKA, ARF, appy, cholecystitis, CVA, Diverticulitis, Homicidal, Suicidal, threat to staff... and all critical care pts) @ -Yes this could lead to her . (Stefano Gore) - Lab Data Lab Results 10/25/23 10/25/23 10/25/23 Range/Units 10:09 10:09 10:09 WBC 12.5 H (3.8-10.6) k/uL RBC 4.70 (3.80-5.40) m/uL Hgb 13.4 (11.4-16.0) gm/dL Hct 42.0 (34.0-46.0) % MCV 89.2 (80.0-100.0) fL MCH 28.5 (25.0-35.0) pg MCHC 31.9 (31.0-37.0) g/dL RDW 14.7 (11.5-15.5) % Plt Count 264 (150-450) k/uL MPV 7.4 Neutrophils % 73 % Lymphocytes % 19 % Monocytes % 4 % Eosinophils % 3 % Basophils % 0 % Neutrophils # 9.1 H (1.3-7.7) k/uL Lymphocytes # 2.4 (1.0-4.8) k/uL Monocytes # 0.5 (0-1.0) k/uL Eosinophils # 0.3 (0-0.7) k/uL Basophils # 0.1 (0-0.2) k/uL Sodium (137-145) mmol/L Potassium (3.5-5.1) mmol/L Chloride (98-107) mmol/L Carbon Dioxide (22-30) mmol/L Anion Gap mmol/L BUN (7-17) mg/dL Creatinine (0.52-1.04) mg/dL Est GFR (CKD-EPI)AfAm (>60 ml/min/1.73 sqM) Est GFR (CKD-EPI)NonAf (>60 ml/min/1.73 sqM) Glucose (74-99) mg/dL Calcium (8.4-10.2) mg/dL Total Bilirubin (0.2-1.3) mg/dL AST (14-36) U/L ALT (4-34) U/L Alkaline Phosphatase (38-126) U/L Total Protein (6.3-8.2) g/dL Albumin (3.5-5.0) g/dL Urine Color Yellow Urine Appearance Cloudy H (Clear) Urine pH 5.5 (5.0-8.0) Ur Specific [place] 1.026 (1.001-1.035) Urine Protein Trace H (Negative) Urine Glucose (UA) Negative (Negative) Urine Ketones Negative (Negative) Urine Blood Negative (Negative) Urine Nitrite Negative (Negative) Urine Bilirubin Negative (Negative) Urine Urobilinogen <2.0 (<2.0) mg/dL Ur Leukocyte Esterase Large H (Negative) Urine RBC 1 (0-5) /hpf Urine WBC 28 H (0-5) /hpf Ur Squamous Epith Cells 7 H (0-4) /hpf Amorphous Sediment Occasional H (None) /hpf Urine Bacteria Rare H (None) /hpf Urine Mucus Few H (None) /hpf Urine HCG, Qual Not Detected (Not Detectd) Urine Opiates Screen (NotDetected) Ur Oxycodone Screen (NotDetected) Urine Methadone Screen (NotDetected) Ur Barbiturates Screen (NotDetected) U Tricyclic Antidepress (NotDetected) Ur Phencyclidine Scrn (NotDetected) Ur Amphetamines Screen (NotDetected) U Methamphetamines Scrn (NotDetected) U Benzodiazepines Scrn (NotDetected) Urine Cocaine Screen (NotDetected) U Marijuana (THC) Screen (NotDetected) Influenza Type A (PCR) (Not Detectd) Influenza Type B (PCR) (Not Detectd) RSV (PCR) (Not Detectd) SARS-CoV-2 (PCR) (Not Detectd) 10/25/23 10/25/23 10/25/23 Range/Units 10:09 10:09 10:19 WBC (3.8-10.6) k/uL RBC (3.80-5.40) m/uL Hgb (11.4-16.0) gm/dL Hct (34.0-46.0) % MCV (80.0-100.0) fL MCH (25.0-35.0) pg MCHC (31.0-37.0) g/dL RDW (11.5-15.5) % Plt Count (150-450) k/uL MPV Neutrophils % % Lymphocytes % % Monocytes % % Eosinophils % % Basophils % % Neutrophils # (1.3-7.7) k/uL Lymphocytes # (1.0-4.8) k/uL Monocytes # (0-1.0) k/uL Eosinophils # (0-0.7) k/uL Basophils # (0-0.2) k/uL Sodium 142 (137-145) mmol/L Potassium 4.3 (3.5-5.1) mmol/L Chloride 109 H (98-107) mmol/L Carbon Dioxide 23 (22-30) mmol/L Anion Gap 10 mmol/L BUN 15 (7-17) mg/dL Creatinine 0.91 (0.52-1.04) mg/dL Est GFR (CKD-EPI)AfAm 89 (>60 ml/min/1.73 sqM) Est GFR (CKD-EPI)NonAf 77 (>60 ml/min/1.73 sqM) Glucose 98 (74-99) mg/dL Calcium 9.0 (8.4-10.2) mg/dL Total Bilirubin 0.4 (0.2-1.3) mg/dL AST 40 H (14-36) U/L ALT 43 H (4-34) U/L Alkaline Phosphatase 93 (38-126) U/L Total Protein 7.1 (6.3-8.2) g/dL Albumin 3.8 (3.5-5.0) g/dL Urine Color Urine Appearance (Clear) Urine pH (5.0-8.0) Ur Specific [place] (1.001-1.035) Urine Protein (Negative) Urine Glucose (UA) (Negative) Urine Ketones (Negative) Urine Blood (Negative) Urine Nitrite (Negative) Urine Bilirubin (Negative) Urine Urobilinogen (<2.0) mg/dL Ur Leukocyte Esterase (Negative) Urine RBC (0-5) /hpf Urine WBC (0-5) /hpf Ur Squamous Epith Cells (0-4) /hpf Amorphous Sediment (None) /hpf Urine Bacteria (None) /hpf Urine Mucus (None) /hpf Urine HCG, Qual (Not Detectd) Urine Opiates Screen Not Detected (NotDetected) Ur Oxycodone Screen Not Detected (NotDetected) Urine Methadone Screen Not Detected (NotDetected) Ur Barbiturates Screen Not Detected (NotDetected) U Tricyclic Antidepress Not Detected (NotDetected) Ur Phencyclidine Scrn Not Detected (NotDetected) Ur Amphetamines Screen Not Detected (NotDetected) U Methamphetamines Scrn Not Detected (NotDetected) U Benzodiazepines Scrn Not Detected (NotDetected) Urine Cocaine Screen Detected H (NotDetected) U Marijuana (THC) Screen Not Detected (NotDetected) Influenza Type A (PCR) Not Detected (Not Detectd) Influenza Type B (PCR) Not Detected (Not Detectd) RSV (PCR) Not Detected (Not Detectd) SARS-CoV-2 (PCR) Not Detected (Not Detectd) Critical Care Time Critical Care Time: Yes Total Critical Care Time: 35 <Stefano Gore - Last Filed: 10/25/23 12:18> Disposition <Stefano Mirza - Last Filed: 10/25/23 05:48> Time of Disposition: 12:18 <Stefano Gore - Last Filed: 10/25/23 12:18> Clinical Impression: Suicidal ideation, Depression Disposition: TRANSFER TO PSYCH HOSP/UNIT Referrals: [facility] [Primary Care Provider] - 1-2 days
[2023-10-25 10:40] LABS: Basophils # (A) 0.1 k/uL (0-0.2); Basophils % (A) 0 %; Eosinophils # (A) 0.3 k/uL (0-0.7); Eosinophils % (A) 3 %; HGB 13.4 gm/dL (11.4-16.0); Lymphocytes # (A) 2.4 k/uL (1.0-4.8); Lymphocytes % (A) 19 %; MCH 28.5 pg (25.0-35.0); MCHC 31.9 g/dL (31.0-37.0); MCV 89.2 fL (80.0-100.0); Mean Platelet Volume 7.4; Monocytes # (A) 0.5 k/uL (0-1.0); Monocytes % (A) 4 %; Neutrophils # (A) 9.1 k/uL (1.3-7.7); Neutrophils % (A) 73 %; Platelet Count 264 k/uL (150-450); RDW 14.7 % (11.5-15.5); WBC 12.5 k/uL (3.8-10.6)
[2023-10-25 11:00] LABS: ALT 43 U/L (4-34); AST 40 U/L (14-36); African American GFR (CKD) 89 (>60 ml/min/1.73 sqM); Albumin 3.8 g/dL (3.5-5.0); Alkaline Phosphatase 93 U/L (38-126); Anion Gap 10 mmol/L; Blood Urea Nitrogen 15 mg/dL (7-17); Carbon Dioxide 23 mmol/L (22-30); Chloride 109 mmol/L (98-107); Glucose 98 mg/dL (74-99); Non-African American GFR(CKD) 77 (>60 ml/min/1.73 sqM); Potassium 4.3 mmol/L (3.5-5.1); Sodium 142 mmol/L (137-145); Total Bilirubin 0.4 mg/dL (0.2-1.3); Total Protein 7.1 g/dL (6.3-8.2)
[2023-10-25 11:19] LABS: Amphetamine Screen,Urine Not Detected (NotDetected); Barbiturate Screen,Urine Not Detected (NotDetected); Benzodiazepines Screen,Urine Not Detected (NotDetected); Cocaine Screen,Urine Detected (NotDetected); Methadone Screen, Urine Not Detected (NotDetected); Opiate Screen,Urine Not Detected (NotDetected); Oxycodone Screen, Urine Not Detected (NotDetected); Phencyclidine Screen,Urine Not Detected (NotDetected); Tricyclic Antidepressant,Urine Not Detected (NotDetected); Urn Cannabinoid Scrn Not Detected (NotDetected)
[2023-10-25 11:22] LABS: Amorphous Sediment,Urine Occasional /hpf; Appearance,Urine Cloudy (Clear); Bacteria,Urine Rare /hpf; Bilirubin,Urine Negative (Negative); Blood,Urine Negative (Negative); Color,Urine Yellow; Glucose,Urine (UA) Negative (Negative); Ketones,Urine Negative (Negative); Leukocyte Esterase,Urine Large (Negative); Mucus,Urine Few /hpf; Nitrite,Urine Negative (Negative); PH, Urine 5.5 (5.0-8.0); Protein,Urine Trace (Negative); RBC,Urine 1 /hpf (0-5); Specific Gravity,Urine 1.026 (1.001-1.035); Squamous Epithelial Cell,Urine 7 /hpf (0-4); Urobilinogen,Urine <2.0 mg/dL (<2.0); WBC,Urine 28 /hpf (0-5)
[2023-10-25] MEDS: ACETAMINOPHEN TAB 325 MG TAB PO STA (18:14)
[2023-10-25 18:31] VITALS: BP 144/86; PULSE 78; RESP 18; TEMP 98.5
== END 2023-10-25 19:32 ==
LOC: EC 05:02
DX: R45.851 Suicidal ideations (principal); F32.A Depression, unspecified; F41.9 Anxiety disorder, unspecified; F17.200 Nicotine dependence, unspecified, uncomplicated; Z91.010 Allergy to peanuts; Z91.013 Allergy to seafood; Z91.048 Other nonmedicinal substance allergy status; Z88.0 Allergy status to penicillin; Z88.8 Allergy status to other drugs, medicaments and biological substances; Z79.899 Other long term (current) drug therapy; Z90.49 Acquired absence of other specified parts of digestive tract; Z11.52 Encounter for screening for COVID-19
CPT/HCPCS: 36415; 80053; 80306; 81001; 81025; 82075; 85025; 87636; 99291

== ENCOUNTER 2024-01-27 21:44 | Emergency (ER) | payer OTHER ==
[2024-01-27 22:23] VITALS: RESP 18
[2024-01-27] MEDS: SODIUM CHLORIDE 0.9% 1,000 ML IV ONE (23:30)
[2024-01-27 23:58] LABS: Appearance,Urine Cloudy (Clear); Bacteria,Urine Few /hpf; Bilirubin,Urine Negative (Negative); Blood,Urine Large (Negative); Color,Urine Red; Glucose,Urine (UA) Negative (Negative); Ketones,Urine Negative (Negative); Leukocyte Esterase,Urine Moderate (Negative); Nitrite,Urine Negative (Negative); Protein,Urine 1+ (Negative); RBC,Urine >182 /hpf (0-5); Specific Gravity,Urine 1.018 (1.001-1.035); Squamous Epithelial Cell,Urine 6 /hpf (0-4); Urobilinogen,Urine <2.0 mg/dL (<2.0); WBC,Urine 34 /hpf (0-5)
[2024-01-28 00:04] LABS: Basophils # (A) 0.1 k/uL (0-0.2); Basophils % (A) 0 %; Eosinophils # (A) 0.7 k/uL (0-0.7); Eosinophils % (A) 4 %; HCT 40.3 % (34.0-46.0); HGB 12.7 gm/dL (11.4-16.0); Lymphocytes # (A) 3.4 k/uL (1.0-4.8); Lymphocytes % (A) 19 %; MCH 28.7 pg (25.0-35.0); MCHC 31.6 g/dL (31.0-37.0); MCV 90.7 fL (80.0-100.0); Mean Platelet Volume 7.8; Monocytes # (A) 0.8 k/uL (0-1.0); Monocytes % (A) 4 %; Neutrophils # (A) 12.4 k/uL (1.3-7.7); Neutrophils % (A) 71 %; Platelet Count 209 k/uL (150-450); RBC 4.44 m/uL (3.80-5.40); RDW 14.9 % (11.5-15.5); WBC 17.6 k/uL (3.8-10.6)
[2024-01-28 00:05] LABS: ALT 29 U/L (4-34); AST 25 U/L (14-36); African American GFR (CKD) >90 (>60 ml/min/1.73 sqM); Albumin 3.5 g/dL (3.5-5.0); Alkaline Phosphatase 86 U/L (38-126); Anion Gap 3 mmol/L; Blood Urea Nitrogen 17 mg/dL (7-17); Carbon Dioxide 28 mmol/L (22-30); Chloride 108 mmol/L (98-107); Glucose 113 mg/dL (74-99); Non-African American GFR(CKD) 85 (>60 ml/min/1.73 sqM); Potassium 4.1 mmol/L (3.5-5.1); Sodium 139 mmol/L (137-145); Total Bilirubin 0.2 mg/dL (0.2-1.3); Total Protein 6.3 g/dL (6.3-8.2)
--- NOTE | 2024-01-28 00:30 | ED ---
General Adult HPI - General Source: patient, RN notes reviewed Mode of arrival: EMS Limitations: no limitations <Bea Nieves - Last Filed: 01/28/24 00:26> <James Cedillo - Last Filed: 01/28/24 02:05> - General Chief complaint: Vaginal Bleeding Stated complaint: vaginal bleeding back pain Time Seen by Provider: 01/27/24 22:35 - History of Present Illness Initial comments: 43-year-old female presents to the emergency department for evaluation of vaginal bleeding. She states that this started 2 days ago. She states that she went through around 6-7 pads. She is unsure of the time that she went through this amount of pads. She states she does not get regular periods. Admits to some burning in the vagina. Reports a prior tubal ligation. Denies fever, chills, nausea, vomiting. (Bea Nieves) - Related Data Home Medications Medication Instructions Recorded Confirmed No Known Home Medications 10/25/23 10/25/23 Allergies Allergy/AdvReac Type Severity Reaction Status Date / Time Iodinated Contrast Media Allergy Anaphylaxis Verified 01/27/24 22:23 [Iodinated Contrast Media - IV Dye] lacosamide [From Vimpat] Allergy Anaphylaxis Verified 01/27/24 22:23 peanut Allergy Anaphylaxis Verified 01/27/24 22:23 Penicillins Allergy Anaphylaxis Verified 01/27/24 22:23 shellfish derived Allergy swelling Verified 01/27/24 22:23 all over body cephalexin monohydrate AdvReac Nausea & Verified 01/27/24 22:23 [From Keflex] Vomiting & Diarrhea trazodone AdvReac bp Verified 01/27/24 22:23 issues/dizziness Review of Systems ROS Other: All systems not noted in ROS Statement are negative. <Bea Nieves - Last Filed: 01/28/24 00:26> ROS Other: All systems not noted in ROS Statement are negative. <James Cedillo - Last Filed: 01/28/24 02:05> ROS Statement: Those systems with pertinent positive or pertinent negative responses have been documented in the HPI. Past Medical History Past Medical History: Asthma, Heart Failure, COPD, Fibromyalgia, GERD/Reflux, GI Bleed, Hypertension, Liver Disease, Osteoarthritis (OA), Pneumonia, Seizure Disorder, Skin Disorder Additional Past Medical History / Comment(s): Bronchitis, gestational diabetes, seizures with last one 09/03/20, sickle cell trait, liver cirrhosis, anemia, chrons, IBS, ulcerative colitis, lowr GI bleed, hemorrhoids, constipation, psoriasis, migraines, chronic low back and cervical pain, scoliosis, arhtritis in multiple joints, gout bilateral feet, History of Any Multi-Drug Resistant Organisms: None Reported Past Surgical History: Cholecystectomy, Orthopedic Surgery Additional Past Surgical History / Comment(s): L oophorectomy d/t cyst, D&C, colonoscopy, L carpal tunnel release, Past Anesthesia/Blood Transfusion Reactions: Motion Sickness, Postoperative Nausea & Vomiting (PONV) Past Psychological History: Anxiety, Bipolar, Depression, Schizophrenia Smoking Status: Current every day smoker Past Alcohol Use History: None Reported Past Drug Use History: Cocaine, Opiates - Past Family History Mother History Unknown: Yes Family Medical History: Cancer Additional Family Medical History / Comment(s): Mother had breast cancer and metnal illness She is living. Father Family Medical History: Cancer Additional Family Medical History / Comment(s): Father is . He had agent orange exposure. He had liver cancer, bowel to brain cancer. <Bea Nieves - Last Filed: 01/28/24 00:26> General Exam Limitations: no limitations General appearance: alert, in no apparent distress Head exam: Present: atraumatic, normocephalic, normal inspection Eye exam: Present: normal appearance, PERRL, EOMI. Absent: scleral icterus, conjunctival injection, periorbital swelling ENT exam: Present: normal exam, mucous membranes moist Respiratory exam: Present: normal lung sounds bilaterally. Absent: respiratory distress, wheezes, rales, rhonchi, stridor Cardiovascular Exam: Present: regular rate, normal rhythm, normal heart sounds. Absent: systolic murmur, diastolic murmur, rubs, gallop, clicks GI/Abdominal exam: Present: soft, normal bowel sounds. Absent: distended, tenderness, guarding, rebound, rigid Extremities exam: Present: normal inspection, full ROM, normal capillary refill. Absent: tenderness, pedal edema, joint swelling, calf tenderness Back exam: Present: normal inspection Neurological exam: Present: alert, oriented X3 Psychiatric exam: Present: normal affect, normal mood Skin exam: Present: warm, dry, intact, normal color. Absent: rash <Bea Nieves - Last Filed: 01/28/24 00:26> Course Vital Signs 01/27/24 01/28/24 22:20 01:39 Temperature 98.4 F 98.3 F Pulse Rate 68 66 Respiratory 18 18 Rate Blood Pressure 126/62 124/60 O2 Sat by Pulse 95 95 Oximetry Medical Decision Making - Lab Data Result diagrams: 01/27/24 23:27 01/27/24 23:27 <Bea Nieves - Last Filed: 01/28/24 00:26> - Lab Data Result diagrams: 01/27/24 23:27 01/27/24 23:27 <James Cedillo - Last Filed: 01/28/24 02:05> - Medical Decision Making Was pt. sent in by a medical professional or institution (Dr. PA, SHAREPOINT ANALYST, urgent care, hospital, or senior care...) When possible be specific @ -[No] Did you speak to anyone other than the patient for history (EMS, parent, family, police, friend...)? What history was obtained from this source @ -[No] Did you review nursing and triage notes (agree or disagree)? Why? @ -[I reviewed and agree with nursing and triage notes] Were old charts reviewed (outside hosp., previous admission, EMS record, old EKG, old radiological studies, urgent care reports/EKG's, senior care records)? Report findings @ -[No old charts were reviewed] Differential Diagnosis (chest pain, altered mental status, abdominal pain women, abdominal pain men, vaginal bleeding, weakness, fever, dyspnea, syncope, headache, dizziness, GI bleed, back pain, seizure, CVA, palpatations, mental health, musculoskeletal)? @ -[Differential Vaginal Bleeding: Spontaneous , threatened , molar , ectopic , bloody show, incompetent cervix, abruptioplacenta, placenta previa, uterine rupture, dysfunctional uterine bleeding, hemorrhage, uterine fibroids, this is not meant to be an all-inclusive list. ] EKG interpreted by me (3pts min.). @ -[none] X-rays interpreted by me (1pt min.). @ -[None done] CT interpreted by me (1pt min.). @ -[None done] U/S interpreted by me (1pt. min.). @ -[pelvic ultrasound pending] What testing was considered but not performed or refused? (CT, X-rays, U/S, labs)? Why? @ -[None] What meds were considered but not given or refused? Why? @ -[None] Did you discuss the management of the patient with other professionals (professionals i.e. , PA, SHAREPOINT ANALYST, lab, RT, psych nurse, social service director, international bank manager, teacher, development officer, case management rn)? Give summary @ -[No] Was smoking cessation discussed for >3mins.? @ -[No] Was critical care preformed (if so, how long)? @ -[No] Were there social determinants of health that impacted care today? How? (Homelessness, low income, unemployed, alcoholism, drug addiction, transportation, low edu. Level, literacy, decrease access to med. care, residential, rehab)? @ -[No] Was there de-escalation of care discussed even if they declined (Discuss DNR or withdrawal of care, Hospice)? DNR status @ -[No] What co-morbidities impacted this encounter? (DM, HTN, Smoking, COPD, CAD, Cancer, CVA, ARF, Chemo, Hep., AIDS, mental health diagnosis, sleep apnea, morbid obesity)? @ -[None] Was patient admitted / discharged? Hospital course, mention meds given and route, prescriptions, significant lab abnormalities, going to OR and other pertinent info. @ -[Patient presented to ED for vaginal bleeding. Laboratory studies obtained. WBC 17.6, hemoglobin stable at 12.7. UA shows large blood, greater than 182 RBCs, likely vaginal in origin , negative urine hCG. Pelvic ultrasound pending. Case signed out to SHELBY UmanzorC] Undiagnosed new problem with uncertain prognosis? @ -[No] Drug Therapy requiring intensive monitoring for toxicity (Heparin, Nitro, Insulin, Cardizem)? @ -[No] Were any procedures done? @ -[No] Diagnosis/symptom? @ -[default] Acute, or Chronic, or Acute on Chronic? @ -[default] Uncomplicated (without systemic symptoms) or Complicated (systemic symptoms)? @ -[default] Side effects of treatment? @ -[No] Exacerbation, Progression, or Severe Exacerbation? @ -[No] Poses a threat to life or bodily function? How? (Chest pain, [place], [place], pneumonia, PE, COPD, DKA, ARF, appy, cholecystitis, CVA, Diverticulitis, Homicidal, Suicidal, threat to staff... and all critical care pts) @ -[No] 12.7. (Bea Nieves) Patient signed out to me by Bea Nieves PA-C pending ultrasound results. In short this is a 43-year-old female presenting chief complaint of vaginal bleeding for the last 2 days. Ultrasound is suboptimal study without transvaginal investigation. Patient refused transvaginal exam. Transabdominal pelvic ultrasound study shows no suspicious abnormalities. Hemoglobin is stable at 12.7. Vital signs are WNL. Gonorrhea and Chlamydia testing are added on. Patient declines pelvic exam. She is educated on today's findings and instructed to follow-up with [facility]BILE APPLICATION DEVELOPER. Discharged. Follow-up with PCP. Report back to ER with any new or worsening symptoms. Discussed return parameters and answered all questions. Patient conveyed verbal understanding and agreed to the plan. I discussed this case in detail with my attending Dr. Webb Diagnosis/symptom? @Vaginal bleeding Acute, or Chronic, or Acute on Chronic? @Acute Uncomplicated (without systemic symptoms) or Complicated (systemic symptoms)? @Uncomplicated Side effects of treatment? @None Exacerbation, Progression, or Severe Exacerbation] @No Poses a threat to life or bodily function? @Unlikely (James Cedillo) - Lab Data Lab Results 01/27/24 01/27/24 01/27/24 Range/Units 23:27 23:27 23:27 WBC 17.6 H (3.8-10.6) k/uL RBC 4.44 (3.80-5.40) m/uL Hgb 12.7 (11.4-16.0) gm/dL Hct 40.3 (34.0-46.0) % MCV 90.7 (80.0-100.0) fL MCH 28.7 (25.0-35.0) pg MCHC 31.6 (31.0-37.0) g/dL RDW 14.9 (11.5-15.5) % Plt Count 209 (150-450) k/uL MPV 7.8 Neutrophils % 71 % Lymphocytes % 19 % Monocytes % 4 % Eosinophils % 4 % Basophils % 0 % Neutrophils # 12.4 H (1.3-7.7) k/uL Lymphocytes # 3.4 (1.0-4.8) k/uL Monocytes # 0.8 (0-1.0) k/uL Eosinophils # 0.7 (0-0.7) k/uL Basophils # 0.1 (0-0.2) k/uL PT 9.6 L (10.0-12.5) sec INR 0.8 (<1.2) APTT 23.2 (22.0-30.0) sec Sodium (137-145) mmol/L Potassium (3.5-5.1) mmol/L Chloride (98-107) mmol/L Carbon Dioxide (22-30) mmol/L Anion Gap mmol/L BUN (7-17) mg/dL Creatinine (0.52-1.04) mg/dL Est GFR (CKD-EPI)AfAm (>60 ml/min/1.73 sqM) Est GFR (CKD-EPI)NonAf (>60 ml/min/1.73 sqM) Glucose (74-99) mg/dL Calcium (8.4-10.2) mg/dL Total Bilirubin (0.2-1.3) mg/dL AST (14-36) U/L ALT (4-34) U/L Alkaline Phosphatase (38-126) U/L Total Protein (6.3-8.2) g/dL Albumin (3.5-5.0) g/dL Urine Color Red Urine Appearance Cloudy H (Clear) Urine pH 6.0 (5.0-8.0) Ur Specific [place] 1.018 (1.001-1.035) Urine Protein 1+ H (Negative) Urine Glucose (UA) Negative (Negative) Urine Ketones Negative (Negative) Urine Blood Large H (Negative) Urine Nitrite Negative (Negative) Urine Bilirubin Negative (Negative) Urine Urobilinogen <2.0 (<2.0) mg/dL Ur Leukocyte Esterase Moderate H (Negative) Urine RBC >182 H (0-5) /hpf Urine WBC 34 H (0-5) /hpf Ur Squamous Epith Cells 6 H (0-4) /hpf Urine Bacteria Few H (None) /hpf Urine HCG, Qual (Not Detectd) 01/27/24 01/27/24 Range/Units 23:27 23:27 WBC (3.8-10.6) k/uL RBC (3.80-5.40) m/uL Hgb (11.4-16.0) gm/dL Hct (34.0-46.0) % MCV (80.0-100.0) fL MCH (25.0-35.0) pg MCHC (31.0-37.0) g/dL RDW (11.5-15.5) % Plt Count (150-450) k/uL MPV Neutrophils % % Lymphocytes % % Monocytes % % Eosinophils % % Basophils % % Neutrophils # (1.3-7.7) k/uL Lymphocytes # (1.0-4.8) k/uL Monocytes # (0-1.0) k/uL Eosinophils # (0-0.7) k/uL Basophils # (0-0.2) k/uL PT (10.0-12.5) sec INR (<1.2) APTT (22.0-30.0) sec Sodium 139 (137-145) mmol/L Potassium 4.1 (3.5-5.1) mmol/L Chloride 108 H (98-107) mmol/L Carbon Dioxide 28 (22-30) mmol/L Anion Gap 3 mmol/L BUN 17 (7-17) mg/dL Creatinine 0.84 (0.52-1.04) mg/dL Est GFR (CKD-EPI)AfAm >90 (>60 ml/min/1.73 sqM) Est GFR (CKD-EPI)NonAf 85 (>60 ml/min/1.73 sqM) Glucose 113 H (74-99) mg/dL Calcium 9.0 (8.4-10.2) mg/dL Total Bilirubin 0.2 (0.2-1.3) mg/dL AST 25 (14-36) U/L ALT 29 (4-34) U/L Alkaline Phosphatase 86 (38-126) U/L Total Protein 6.3 (6.3-8.2) g/dL Albumin 3.5 (3.5-5.0) g/dL Urine Color Urine Appearance (Clear) Urine pH (5.0-8.0) Ur Specific [place] (1.001-1.035) Urine Protein (Negative) Urine Glucose (UA) (Negative) Urine Ketones (Negative) Urine Blood (Negative) Urine Nitrite (Negative) Urine Bilirubin (Negative) Urine Urobilinogen (<2.0) mg/dL Ur Leukocyte Esterase (Negative) Urine RBC (0-5) /hpf Urine WBC (0-5) /hpf Ur Squamous Epith Cells (0-4) /hpf Urine Bacteria (None) /hpf Urine HCG, Qual Not Detected (Not Detectd) Disposition <Bea Nieves - Last Filed: 01/28/24 00:26> Is patient prescribed a controlled substance at d/c from ED?: No Time of Disposition: 00:49 <James Cedillo - Last Filed: 01/28/24 02:05> Clinical Impression: Dysfunctional uterine bleeding Disposition: HOME SELF-CARE Condition: Good Instructions (If sedation given, give patient instructions): Abnormal (Dysfunctional) Uterine Bleeding (ED) Additional Instructions: Follow-up with MOBILE APPLICATION DEVELOPER and PCP. Report back to ER with any new or worsening symptoms. Referrals: [facility] [Primary Care Provider] - 1-2 days Angeline Mcfarlane MD [STAFF PHYSICIAN] - 1-2 days
--- NOTE | 2024-01-28 00:35 | US ---
EXAMINATION TYPE: US pelvic complete DATE OF EXAM: 01/28/2024 COMPARISON: CT 10/13/2023 CLINICAL INDICATION: Female, 43 years old with history of bleeding, pain; Patient states heavy bleedi ng and pain. Patient does not want TV ultrasound due to pain. HX of left oophorectomy. TECHNIQUE: Transabdominal (TA). Transabdominal sonographic images of the pelvis were acquired. Date of LMP: Irregular cycles EXAM MEASUREMENTS: Uterus: 9.6 x 4.9 x 5.8cm Endometrial Stripe: 1.0 cm Right Ovary: Unable to visualize due to overlying bowel Left Ovary: Surgically absent Limited due to undistended bladder and patient not wanting TV ultrasound 1. Uterus: Anteverted appears WNL as best seen today 2. Endometrium: Appears WNL as best seen 3. Right Ovary: Obscured by overlying bowel gas 4. Left Ovary: Surgically absent 5. Bilateral Adnexa: Obscured by overlying bowel gas 6. Posterior cul-de-sac: No free fluid seen today Heterogeneous anteverted uterus. No free fluid. IMPRESSION: Suboptimal study without transvaginal investigation. Transabdominal pelvic ultrasound juan dy shows no suspicious abnormalities.
[2024-01-28 00:44] LABS: INR 0.8 (<1.2); Partial Thromboplastin Time 23.2 sec (22.0-30.0); Prothrombin Time 9.6 sec (10.0-12.5)
[2024-01-28 01:40] VITALS: BP 124/60; PULSE 66; TEMP 98.3
[2024-01-31 13:36] LABS: C. trachomatis,PCR Negative (Negative)
[2024-01-31 13:38] LABS: N. gonorrhoeae,PCR Negative (Negative)
== END 2024-01-28 01:39 | disposition home or self-care (01) ==
LOC: EC 21:44
DX: N93.8 Other specified abnormal uterine and vaginal bleeding (principal); F17.200 Nicotine dependence, unspecified, uncomplicated; Z88.0 Allergy status to penicillin; Z91.010 Allergy to peanuts; Z91.013 Allergy to seafood; Z88.1 Allergy status to other antibiotic agents; Z91.041 Radiographic dye allergy status; Z88.8 Allergy status to other drugs, medicaments and biological substances
CPT/HCPCS: 36415; 76856; 80053; 81001; 81025; 85025; 85610; 85730; 87086; 87491; 87591; 96360; 99284

== ENCOUNTER 2024-02-04 17:46 | Observation (INO) | payer OTHER ==
--- NOTE | 2024-02-04 17:58 | ED ---
Chest Pain HPI - General Stated Complaint: Chest Pain Time Seen by Provider: 02/04/24 17:49 - History of Present Illness Initial Comments: This patient is a 43-year-old woman who presents to evaluation for chest pain. She states that it started in the substernal area and feels like it is going towards her left shoulder. The pain had come on yesterday in the afternoon. She states that she delayed coming into the hospital because last time she had been in with this type of pain she was told that they wanted to do heart catheterization so she signed out AGAINST MEDICAL ADVICE. Patient denies history of known [place] or stents. She had a little bit of associated nausea. MD Complaint: chest pain Onset/Timin -: days(s) Onset: during rest Pain Location: substernal Pain Radiation: LUE Severity: moderate Quality: other (fluttering) Consistency: intermittent Improves With: nothing Worsens With: nothing Anginal Symptoms: nausea, dyspnea Treatments Prior to Arrival: none - Related Data On Oral Contraceptives: No Home Medications Medication Instructions Recorded Confirmed No Known Home Medications 10/25/23 10/25/23 Allergies Allergy/AdvReac Type Severity Reaction Status Date / Time Iodinated Contrast Media Allergy Anaphylaxis Verified 01/27/24 22:23 [Iodinated Contrast Media - IV Dye] lacosamide [From Vimpat] Allergy Anaphylaxis Verified 01/27/24 22:23 peanut Allergy Anaphylaxis Verified 01/27/24 22:23 Penicillins Allergy Anaphylaxis Verified 01/27/24 22:23 shellfish derived Allergy swelling Verified 01/27/24 22:23 all over body cephalexin monohydrate AdvReac Nausea & Verified 01/27/24 22:23 [From Keflex] Vomiting & Diarrhea trazodone AdvReac bp Verified 01/27/24 22:23 issues/dizziness Review of Systems ROS Statement: Those systems with pertinent positive or pertinent negative responses have been documented in the HPI. ROS Other: All systems not noted in ROS Statement are negative. Constitutional: Denies: fever, chills Respiratory: Reports: dyspnea. Denies: cough, wheezes Cardiovascular: Reports: chest pain. Denies: palpitations, orthopnea, edema, syncope Gastrointestinal: Reports: nausea. Denies: abdominal pain, vomiting, diarrhea, melena, hematochezia Genitourinary: Denies: dysuria, hematuria Musculoskeletal: Denies: back pain Skin: Denies: rash Neurological: Denies: headache, weakness EKG Findings - EKG Comments: EKG Findings:: Possible septal infarct. - EKG Results: EKG: interpreted by TY, sinus rhythm (Rate 79 bpm) - Blocks, [place], Hypertrophy, ST Abn: AV and intraventricular conduction: right bundle branch block (fixed/interm ittent, complete/incomplete), left anterior fascicular block Past Medical History Past Medical History: Asthma, Heart Failure, COPD, Fibromyalgia, GERD/Reflux, GI Bleed, Hypertension, Liver Disease, Osteoarthritis (OA), Pneumonia, Seizure Disorder, Skin Disorder Additional Past Medical History / Comment(s): Bronchitis, gestational diabetes, seizures with last one 09/03/20, sickle cell trait, liver cirrhosis, anemia, chrons, IBS, ulcerative colitis, lowr GI bleed, hemorrhoids, constipation, psoriasis, migraines, chronic low back and cervical pain, scoliosis, arhtritis in multiple joints, gout bilateral feet, History of Any Multi-Drug Resistant Organisms: None Reported Past Surgical History: Cholecystectomy, Orthopedic Surgery Additional Past Surgical History / Comment(s): L oophorectomy d/t cyst, D&C, colonoscopy, L carpal tunnel release, Past Anesthesia/Blood Transfusion Reactions: Motion Sickness, Postoperative Nausea & Vomiting (PONV) Past Psychological History: Anxiety, Bipolar, Depression, Schizophrenia Smoking Status: Current every day smoker Past Alcohol Use History: None Reported Past Drug Use History: Cocaine, Opiates - Past Family History Mother History Unknown: Yes Family Medical History: Cancer Additional Family Medical History / Comment(s): Mother had breast cancer and metnal illness She is living. Father Family Medical History: Cancer Additional Family Medical History / Comment(s): Father is . He had agent orange exposure. He had liver cancer, bowel to brain cancer. General Exam General appearance: alert, in no apparent distress Eye exam: Present: normal appearance. Absent: scleral icterus, conjunctival injection ENT exam: Present: normal oropharynx Neck exam: Present: normal inspection Respiratory exam: Present: wheezes. Absent: respiratory distress, rales, rhonchi, stridor, accessory muscle use Cardiovascular Exam: Present: regular rate, normal rhythm, normal heart sounds. Absent: systolic murmur, diastolic murmur, rubs, gallop GI/Abdominal exam: Present: soft. Absent: distended, tenderness, guarding, rebound, rigid, mass Extremities exam: Present: normal inspection, normal capillary refill. Absent: pedal edema, calf tenderness Back exam: Present: normal inspection. Absent: CVA tenderness (R), CVA tenderness (L) Neurological exam: Present: alert Skin exam: Present: warm, dry, intact, normal color. Absent: rash Course Vital Signs 02/04/24 02/04/24 02/04/24 17:52 18:02 21:36 Pulse Rate 74 78 73 Respiratory 18 18 16 Rate Blood Pressure 152/67 141/89 O2 Sat by Pulse 96 97 97 Oximetry Disposition Referrals: [facility] [Primary Care Provider] - 1-2 days
[2024-02-04 18:34] LABS: Basophils # (A) 0.1 k/uL (0-0.2); Basophils % (A) 0 %; Eosinophils # (A) 0.5 k/uL (0-0.7); Eosinophils % (A) 3 %; HGB 12.4 gm/dL (11.4-16.0); Lymphocytes # (A) 2.1 k/uL (1.0-4.8); Lymphocytes % (A) 11 %; MCH 28.6 pg (25.0-35.0); MCHC 31.8 g/dL (31.0-37.0); MCV 89.9 fL (80.0-100.0); Mean Platelet Volume 7.4; Monocytes # (A) 0.7 k/uL (0-1.0); Monocytes % (A) 4 %; Neutrophils # (A) 15.6 k/uL (1.3-7.7); Neutrophils % (A) 82 %; Platelet Count 225 k/uL (150-450); RBC 4.34 m/uL (3.80-5.40); RDW 14.9 % (11.5-15.5); WBC 19.2 k/uL (3.8-10.6)
[2024-02-04 18:38] LABS: ALT 28 U/L (4-34); AST 34 U/L (14-36); African American GFR (CKD) >90 (>60 ml/min/1.73 sqM); Albumin 3.6 g/dL (3.5-5.0); Alkaline Phosphatase 99 U/L (38-126); Anion Gap 8 mmol/L; Blood Urea Nitrogen 15 mg/dL (7-17); Calcium 8.5 mg/dL (8.4-10.2); Carbon Dioxide 22 mmol/L (22-30); Chloride 108 mmol/L (98-107); Glucose 213 mg/dL (74-99); Magnesium 1.8 mg/dL (1.6-2.3); Non-African American GFR(CKD) >90 (>60 ml/min/1.73 sqM); Potassium 4.4 mmol/L (3.5-5.1); Sodium 138 mmol/L (137-145); Total Bilirubin 0.3 mg/dL (0.2-1.3); Total Protein 6.5 g/dL (6.3-8.2)
[2024-02-04 18:45] LABS: INR 0.9 (<1.2); Partial Thromboplastin Time 22.3 sec (22.0-30.0); Prothrombin Time 9.8 sec (10.0-12.5)
[2024-02-04 18:46] LABS: NT-Pro-B-Type Natriuretic Pept 300 pg/mL
--- NOTE | 2024-02-04 18:46 | XR ---
EXAMINATION TYPE: XR chest 2V DATE OF EXAM: 02/04/2024 6:21 PM CLINICAL INDICATION:Female, 43 years old with history of Chest Pain; COMPARISON: Chest radiographs from 10/09/2023 TECHNIQUE: XR chest 2V Frontal view of the chest. FINDINGS: Lungs/Pleura: There is no evidence of pleural effusion, focal consolidation, or pneumothorax. Pulmonary vascularity: Unremarkable. Heart/mediastinum: Cardiomediastinal silhouette is unremarkable. Musculoskeletal: No acute osseous pathology. IMPRESSION: No acute cardiopulmonary disease/process.
[2024-02-04] MEDS ORDERED: NITROGLYCERIN SL TABS 0.4 MG TAB SUBLINGUAL PRN (21:52)
[2024-02-05 01:42] VITALS: RESP 15; TEMP 98.2
--- NOTE | 2024-02-05 03:26 | P.HPIM ---
History of Present Illness H&P Date: 02/05/24 Chief Complaint: Chest pain Patient is a 43-year-old female with past medical history of COPD, seizure disorder, bipolar disorder, ADHD, type 2 diabetes, and schizophrenia who presented to ER with a complaint of chest pain that started 1 hour before arrival. Patient was in in her hotel room when chest pain started suddenly. Patient describes the chest pain as constant, pressure-like, 10 out of 10, radiating to left arm, associated with mild shortness of breath, nausea and diaphoresis. Patient reports worsening of the pain associated with increase in physical activity such as brisk walking. Patient reports her chest pain has been intermittent since last 5 years and they have been increasing in both frequency and intensity within last 1 month. Patient attributes these episodes of chest pain to her stress and anxiety. Patient does not have previous history of CAD or CVA. Patient reported using cocaine 1 week ago. Chest pain is 3 out of 10 at the time of the interview. Patient also reports mild left lower quadrant abdominal pain since 1 month. Otherwise she denies headaches, changes in vision, loss of consciousness, vomiting, peripheral edema, weakness and numbness in upper and lower extremities. EKG done in the ER shows sinus rhythm with ventricular rate of 79 bpm, right bundle branch block, left anterior fascicular block, with QTc is 448 ms. Laboratory evaluation shows WBC 19.2, hemoglobin 12.4, hematocrit 39.0, platelet count 225, neutrophil count 15.6, sodium 138, potassium 4.4, chloride 108, bicarb 22, BUN 15, creatinine 0.58, glucose 213, and troponin less than 0.012. Vitals: Tmax 99.6 F, pulse rate 72, respiration rate 15, BP 125/72, O2 sat 95% on room air. Review of systems: Pertinent positives and negatives as discussed in HPI, a complete review of systems was performed and all other systems are negative. Social history: Tobacco: Quit smoking 6 months ago; previously 2 packs/day x 15 years Alcohol: Nonalcoholic Recreational drugs: Cocaine use Travel: None Occupation: Unemployed Family History: Mother and sister has coronary artery disease Physical examination: Vital signs reviewed General: non toxic, no distress, appears older stated age, morbidly obese Derm: no unusual rashes/lesions, warm Head: atraumatic, normocephalic, symmetric Eyes: EOMI, no lid lag, anicteric sclera, pupils equal round reactive to light ENT: Nose and ears atraumatic Neck: No cervical lymphadenopathy, trachea midline, supple Mouth: no lip lesion, mucus membranes moist Cardiovascular: S1S2 reg, no murmur, positive dorsalis pedis pulse bilateral, no edema Lungs: CTA bilateral, no rhonchi, no rales, no accessory muscle use Abdominal: soft, LLQ tenderness upon deep palpation, no guarding, bowel sounds positive Ext: muscle strength 5 out of 5 in all 4 extremities grossly, no gross muscle atrophy, no contractures, Neuro: CN II-XI grossly intact, no gross focal neuro deficits Psych: Alert, oriented, appropriate affect Assessment/Plan: 43-year-old female with past medical history of COPD, type 2 diabetes, and mental health disorder presents to the ER with the history of chest pain, suspected unstable angina 1. Unstable angina Continue with aspirin 325 mg p.o. daily Initiate lipitor 80 mg po once and qhs Continue with nitroglycerin sublingual 0.4 mg as needed for chest pain Ordered IV heparin with PTT monitoring Consult cardiology Check troponin I every 3 hours HEART score: 5 (Moderate risk for coronary event) Continue with cardiac monitoring 2. Leukocytosis, likely due to stress, no signs of active infection at this ti me Continue to monitor CBC with differentials 3. Hyperglycemia Check HbA1c Order sliding scale short acting insulin *Chronic conditions: COPD, type 2 diabetes, bipolar disorder, seizure disorder Resume home medications DVT prophylaxis: IV heparin The patient is admitted with an anticipated more than than 2 midnight stay for evaluation of chest pain likely stable angina CODE STATUS: Full code Discussed with: Patient Anticipated discharge place: Home Past Medical History Past Medical History: Asthma, Heart Failure, COPD, Diabetes Mellitus, Fibromyalgia, GERD/Reflux, GI Bleed, Hypertension, Liver Disease, Osteoarthritis (OA), Pneumonia, Seizure Disorder, Skin Disorder Additional Past Medical History / Comment(s): Bronchitis, gestational diabetes, seizures with last one 01/2024, sickle cell trait, liver cirrhosis, anemia, chrons, IBS, ulcerative colitis, lowr GI bleed, hemorrhoids, constipation, psoriasis, migraines, chronic low back and cervical pain, scoliosis, arhtritis in multiple joints, gout bilateral feet, History of Any Multi-Drug Resistant Organisms: None Reported Past Surgical History: Cholecystectomy, Orthopedic Surgery Additional Past Surgical History / Comment(s): L oophorectomy d/t cyst, D&C, colonoscopy, L carpal tunnel release, Past Anesthesia/Blood Transfusion Reactions: Motion Sickness, Postoperative Nausea & Vomiting (PONV) Past Psychological History: Anxiety, Bipolar, Depression, Schizophrenia Additional Psychological History / Comment(s): Personality Disorder. She is seen at [facility]. Pt has a learning disability and can read some. She has a [facility] public legal guardian. Smoking Status: Former smoker Past Alcohol Use History: None Reported Additional Past Alcohol Use History / Comment(s): Pt states she has not drank alcohol in 15 years. Past Drug Use History: Cocaine Additional Drug Use History / Comment(s): Pt states she quit crack 1 week ago. - Past Family History Mother History Unknown: Yes Family Medical History: Cancer Additional Family Medical History / Comment(s): Mother had breast cancer and met nal illness She is living. Father Family Medical History: Cancer Additional Family Medical History / Comment(s): Father is . He had age nt orange exposure. He had liver cancer, bowel to brain cancer. Medications and Allergies Home Medications Medication Instructions Recorded Confirmed Type No Known Home Medications 10/25/23 10/25/23 History Allergies Allergy/AdvReac Type Severity Reaction Status Date / Time Iodinated Contrast Media Allergy Anaphylaxis Verified 01/27/24 22:23 [Iodinated Contrast Media - IV Dye] lacosamide [From Vimpat] Allergy Anaphylaxis Verified 01/27/24 22:23 peanut Allergy Anaphylaxis Verified 01/27/24 22:23 Penicillins Allergy Anaphylaxis Verified 01/27/24 22:23 shellfish derived Allergy swelling Verified 01/27/24 22:23 all over body cephalexin monohydrate AdvReac Nausea & Verified 01/27/24 22:23 [From Keflex] Vomiting & Diarrhea trazodone AdvReac bp Verified 01/27/24 22:23 issues/dizziness Physical Exam Vitals: Vital Signs Temp Pulse Pulse Resp BP BP Pulse Ox 02/05/24 01:41 98.2 F 72 15 125/72 95 02/04/24 23:00 80 02/04/24 22:46 99.6 F 80 16 91/54 97 02/04/24 21:36 73 16 141/89 97 02/04/24 18:02 78 18 97 02/04/24 17:52 74 18 152/67 96 Intake and Output 02/04/24 02/04/24 02/05/24 14:59 22:59 06:59 Other: Voiding Method Toilet Weight 127.006 kg Results CBC & Chem 7: 02/04/24 18:07 02/04/24 18:07 Labs: Abnormal Lab Results - Last 24 Hours (Table) 02/04/24 02/04/24 02/04/24 Range/Units 18:07 18:07 18:07 WBC 19.2 H (3.8-10.6) k/uL Neutrophils # 15.6 H (1.3-7.7) k/uL PT 9.8 L (10.0-12.5) sec Chloride 108 H (98-107) mmol/L Glucose 213 H (74-99) mg/dL Thrombosis Risk Factor Assmnt - Choose All That Apply Any of the Below Risk Factors Present?: Yes Each Factor Represents 1 point: Abnormal pulmonary function (COPD), Age 41-60 years, Obesity (BMI >25) Thrombosis Risk Factor Assessment Total Risk Factor Score: 3 Thrombosis Risk Factor Assessment Level: Moderate Risk
[2024-02-05] MEDS ORDERED: HEPARIN SODIUM 1,000 UN/ML (10ML VL) IV PRN (03:36)
[2024-02-05] MEDS: HEPARIN SOD,PORK IN 0.45% NACL 25,000 UNIT in 0.45% NACL 1 250ML.BAG IV SCH (04:06)
[2024-02-05] MEDS: ATORVASTATIN 80 MG TAB PO STA (04:06)
[2024-02-05 04:26] LABS: Basophils # (A) 0.1 k/uL (0-0.2); Basophils % (A) 0 %; Eosinophils # (A) 0.6 k/uL (0-0.7); Eosinophils % (A) 3 %; HCT 36.8 % (34.0-46.0); HGB 11.8 gm/dL (11.4-16.0); Lymphocytes # (A) 2.9 k/uL (1.0-4.8); Lymphocytes % (A) 16 %; MCH 28.7 pg (25.0-35.0); MCHC 32.2 g/dL (31.0-37.0); MCV 89.2 fL (80.0-100.0); Mean Platelet Volume 7.7; Monocytes % (A) 5 %; Neutrophils # (A) 13.6 k/uL (1.3-7.7); Neutrophils % (A) 74 %; Platelet Count 220 k/uL (150-450); RBC 4.13 m/uL (3.80-5.40); RDW 14.9 % (11.5-15.5); WBC 18.4 k/uL (3.8-10.6)
[2024-02-05 04:32] LABS: INR 0.8 (<1.2); Prothrombin Time 9.6 sec (10.0-12.5)
[2024-02-05 04:37] LABS: African American GFR (CKD) >90 (>60 ml/min/1.73 sqM); Anion Gap 8 mmol/L; Blood Urea Nitrogen 15 mg/dL (7-17); Calcium 8.5 mg/dL (8.4-10.2); Carbon Dioxide 23 mmol/L (22-30); Chloride 106 mmol/L (98-107); Glucose 226 mg/dL (74-99); Non-African American GFR(CKD) >90 (>60 ml/min/1.73 sqM); Sodium 137 mmol/L (137-145)
[2024-02-05 06:35] LABS: Glucose,Whole Blood 254 mg/dL (70-110)
[2024-02-05] MEDS: INSULIN ASPART (NovoLOG) 100 UNIT/ML VIAL SQ SCH (06:39)
[2024-02-05 08:00] VITALS: BP 127/64; PULSE 74
[2024-02-05] MEDS: ASPIRIN 325 MG TAB PO SCH (08:54)
--- NOTE | 2024-02-05 09:17 | P.CRDCN ---
History of Present Illness Consult date: 02/05/24 History of present illness: HISTORY OF PRESENTING ILLNESS Patient is a 43-year-old female with past medical history of COPD, bipolar disorder, type 2 diabetes, morbid obesity, presented to the ER because of chest pain. Patient reports that lately she has been more stressed and anxious and she reported that her chest pain could be related to due to that. She denies any prior history of cardiac stenting. ECG shows right bundle branch block with left intrafascicular block with no significant ST-T wave changes concerning of ischemia at rest Labs shows WBC 19.2, hemoglobin 12.4, troponin x 3 were negative BNP 300 Chest x-ray does not show pulmonary congestion Social history: Occasional cocaine use. Previous smoker stopped 6 months ago. Currently not smoking. Denies any heavy alcohol use or marijuana use. She reports that her chest pain was constant 10/10, was associated with some shortness of breath. REVIEW OF SYSTEMS 14 point review of system is negative except what is mentioned above in HPI. PHYSICAL EXAMINATION Vital signs reviewed. Morbidly obese, poor personal hygiene Head: Normocephalic. Eyes: Sclerae nonicteric. Neck: Brisk carotid upstroke, no jugular venous distention. Lungs: Clear to auscultation. Heart: Regular rate and rhythm, S1-S2, no S3, no murmur or rub. Abdomen: Soft nontender, positive bowel sounds. Extremities: No edema, intact distal pulses. Neuro: Alert, oritented, no focal deficits. Detailed neuro exam was not perfor med. ASSESSMENT Substernal chest pressure. Ruled out of acute coronary syndrome Cocaine use Leukocytosis Hyperglycemia Type 2 diabetes poorly controlled Morbid obesity Bipolar disorder Poor personal hygiene PLAN Start aspirin 81 mg, atorvastatin 40 mg. Start antianginals Imdur 15 mg daily. Would not be able to add CCB's because of low normal blood pressure. Avoid beta-blockers as patient has a tendency of using cocaine Okay to discontinue IV heparin I have recommended patient that because of her risk factors of diabetes obesity and her description of her chest pain she should get Lexiscan nuclear stress test and echocardiogram however patient is unwilling to stay in the hospital. She is chest pain-free at the moment. At this moment I am comfortable to let patient go with a close outpatient follow-up within 1 week for a stress test and echocardiogram. Recommend tight glycemic control. If no contraindication consider starting Jardiance and metformin Primary team to follow the etiology of leukocytosis Chivo Steel MD, FAC, RPVI Thank you for allowing [facility] to participate in this patient's care. Feel free to reach out in case of any followup questions. Past Medical History Past Medical History: Asthma, Heart Failure, COPD, Diabetes Mellitus, Fibromyalgia, GERD/Reflux, GI Bleed, Hypertension, Liver Disease, Osteoarthritis (OA), Pneumonia, Seizure Disorder, Skin Disorder Additional Past Medical History / Comment(s): Bronchitis, gestational diabetes, seizures with last one 01/2024, sickle cell trait, liver cirrhosis, anemia, chrons, IBS, ulcerative colitis, lowr GI bleed, hemorrhoids, constipation, psoriasis, migraines, chronic low back and cervical pain, scoliosis, arhtritis in multiple joints, gout bilateral feet, History of Any Multi-Drug Resistant Organisms: None Reported Past Surgical History: Cholecystectomy, Orthopedic Surgery Additional Past Surgical History / Comment(s): L oophorectomy d/t cyst, D&C, colonoscopy, L carpal tunnel release, Past Anesthesia/Blood Transfusion Reactions: Motion Sickness, Postoperative Nausea & Vomiting (PONV) Past Psychological History: Anxiety, Bipolar, Depression, Schizophrenia Additional Psychological History / Comment(s): Personality Disorder. She is seen at [facility]. Pt has a learning disability and can read some. She has a [facility] public legal guardian. Smoking Status: Former smoker Past Alcohol Use History: None Reported Additional Past Alcohol Use History / Comment(s): Pt states she has not drank alcohol in 15 years. Past Drug Use History: Cocaine Additional Drug Use History / Comment(s): Pt states she quit crack 1 week ago. - Past Family History Mother History Unknown: Yes Family Medical History: Cancer Additional Family Medical History / Comment(s): Mother had breast cancer and metnal illness She is living. Father Family Medical History: Cancer Additional Family Medical History / Comment(s): Father is . He had agent orange exposure. He had liver cancer, bowel to brain cancer. Medications and Allergies Home Medications Medication Instructions Recorded Confirmed Type No Known Home Medications 10/25/23 10/25/23 History Allergies Allergy/AdvReac Type Severity Reaction Status Date / Time Iodinated Contrast Media Allergy Anaphylaxis Verified 01/27/24 22:23 [Iodinated Contrast Media - IV Dye] lacosamide [From Vimpat] Allergy Anaphylaxis Verified 01/27/24 22:23 peanut Allergy Anaphylaxis Verified 01/27/24 22:23 Penicillins Allergy Anaphylaxis Verified 01/27/24 22:23 shellfish derived Allergy swelling Verified 01/27/24 22:23 all over body cephalexin monohydrate AdvReac Nausea & Verified 01/27/24 22:23 [From Keflex] Vomiting & Diarrhea trazodone AdvReac bp Verified 01/27/24 22:23 issues/dizziness Physical Exam Vitals: Vital Signs Temp Pulse Pulse Resp BP BP Pulse Ox 02/05/24 07:00 98.2 F 74 127/64 97 02/05/24 01:41 98.2 F 72 15 125/72 95 02/04/24 23:00 80 02/04/24 22:46 99.6 F 80 16 91/54 97 02/04/24 21:36 73 16 141/89 97 02/04/24 18:02 78 18 97 02/04/24 17:52 74 18 152/67 96 Intake and Output 02/04/24 02/05/24 02/05/24 22:59 06:59 14:59 Other: Voiding Method Toilet # Voids 1 Weight 127.006 kg Results 02/05/24 04:03 02/05/24 04:03 Cardiac Enzymes 02/04/24 02/04/24 02/04/24 Range/Units 18:07 18:07 22:07 AST 34 (14-36) U/L Troponin I <0.012 <0.012 (0.000-0.034) ng/mL 02/05/24 Range/Units 04:03 AST (14-36) U/L Troponin I <0.012 (0.000-0.034) ng/mL Coagulation 02/04/24 02/05/24 Range/Units 18:07 04:03 PT 9.8 L 9.6 L (10.0-12.5) sec APTT 22.3 25.0 (22.0-30.0) sec CBC 02/04/24 02/05/24 Range/Units 18:07 04:03 WBC 19.2 H 18.4 H (3.8-10.6) k/uL RBC 4.34 4.13 (3.80-5.40) m/uL Hgb 12.4 11.8 (11.4-16.0) gm/dL Hct 39.0 36.8 (34.0-46.0) % Plt Count 225 220 (150-450) k/uL Comprehensive Metabolic Panel 02/04/24 02/05/24 Range/Units 18:07 04:03 Sodium 138 137 (137-145) mmol/L Potassium 4.4 4.0 (3.5-5.1) mmol/L Chloride 108 H 106 (98-107) mmol/L Carbon Dioxide 22 23 (22-30) mmol/L BUN 15 15 (7-17) mg/dL Creatinine 0.58 0.60 (0.52-1.04) mg/dL Glucose 213 H 226 H (74-99) mg/dL Calcium 8.5 8.5 (8.4-10.2) mg/dL AST 34 (14-36) U/L ALT 28 (4-34) U/L Alkaline Phosphatase 99 (38-126) U/L Total Protein 6.5 (6.3-8.2) g/dL Albumin 3.6 (3.5-5.0) g/dL Current Medications Generic Name Dose Route Start Last Admin Trade Name Freq PRN Reason Stop Dose Admin Aspirin 325 mg 02/05/24 09:00 02/05/24 08:54 Aspirin 325 Mg Tab PO 325 mg DAILY ZHANG Administration Atorvastatin Calcium 80 mg 02/05/24 21:00 Atorvastatin 80 Mg Tab PO HS ZHANG Heparin Sodium (Porcine) 0 unit 02/05/24 03:36 Heparin Sodium 1,000 Un/Ml (10ml Vl) IV PER PROTOCOL PRN Low PTT Protocol Heparin Sodium/Sodium Chloride 250 mls @ 9.995 mls/hr 02/05/24 03:45 02/05/24 04:06 25,000 unit/ Sodium Chloride IV 7.87 units/kg/hr .Q24H ZHANG 9.995 mls/hr Administration Protocol 7.87 UNITS/KG/HR Insulin Aspart 0 unit 02/05/24 07:30 02/05/24 06:39 Insulin Aspart (Novolog) 100 Unit/Ml Vial SQ 6 unit ACHS ZHANG Administration Protocol Nitroglycerin 0.4 mg 02/04/24 21:52 Nitroglycerin Sl Tabs 0.4 Mg Tab SUBLINGUAL Q5M PRN Chest Pain Intake and Output 02/04/24 02/05/24 02/05/24 22:59 06:59 14:59 Other: Voiding Method Toilet # Voids 1 Weight 127.006 kg 02/05/24 04:03 02/05/24 04:03
[2024-02-05] MEDS: ISOSORBIDE MONONITRATE ER 15 MG TAB PO SCH (10:48)
[2024-02-05 12:48] LABS: Chol/HDL Ratio 3.64 Ratio; LDL Cholesterol,Calculated 84.8 mg/dL (0.0-131.0)
--- NOTE | 2024-02-05 13:40 | P.DS ---
Providers Date of admission: 02/04/24 21:52 Expected date of discharge: 02/05/24 Attending physician: Joe Head MD Consults: 02/04/24 21:52 Consult Physician Routine Consulting Provider: Salo Torres Consult Reason/Comments: soraida pain Do you want consulting provider notified?: Yes Primary care physician: [facility] Hospital Course: Discharge Diagnosis: Chest pain with unknown etiology (cocaine use versus anxiety), ACS ruled out Leukocytosis Hyperglycemia/type 2 diabetes COPD Bipolar disorder Seizure disorder ADHD Hospital Course: 43-year-old female with a past medical history of COPD, type 2 diabetes, seizure disorder, bipolar disorder, ADHD, and schizophrenia presented to the ED with sharp chest pain that radiated to the left arm. Patient initially had chest pain which she rated 10 out of 10, but after administering nitroglycerin and aspirin she rated the pain as 3 out of 10.In the ED patient had an EKG which showed sinus rhythm with Q waves but no signs of acute MA. Patient also received a CXR which showed no acute cardiopulmonary disease/process. Patient admitted to feeling extremely stressed when the chest pain started, rating her stress as an 8 out of 10. Patient admitted to cocaine use. Patient was admitted for workup of chest pain with unknown etiology. Patient's symptoms of chest pain resolved and patient after continued treatment with aspirin, atorvastatin, isosorbide mononitrate, and lisinopril. Troponin negative x 3. Was evaluated by cardiology. Recommending outpatient stress test and echocardiogram. Patient being discharged on reconciled home medication list. Being discharged back to home. She is also recommended to follow-up with her PCP and cardiology within 1 week. Patient also recommended to cease cocaine use as this could have spurred her chest pain. Pt seen and examined at bedside: Vital signs reveiwed and stable: General: Nontoxic, no distress, appears at stated age, morbidly obese Derm: Warm, dry Head: Atraumatic, normocephalic, symmetric Eyes: EOMI, no lid lag, anicteric sclera Mouth: No lip lesion, mucus membranes moist Cardiovascular: S1S2 reg, no murmur Lung: CTA bilateral, no rhonchi, no rales, no accessory muscle use Abdominal: Soft, nontender to palpation, no guarding, no appreciable organomegaly Ext: No gross muscle atrophy, no edema, no contractures Neuro: CN II- XI grossly intact, no facial neuro deficits Psych: Alert, oriented, appropriate affect A total of 33 minutes were spent preparing this complex discarge summary. Patient was discharged on 02/05/2024 at 1031. I have seen and evaluated the patient today. Discussed with the resident and agree with the residents finding and plan as documented in the resident's note. Changes highlighted in blue font. Patient Condition at Discharge: Stable Plan - Discharge Summary New Discharge Prescriptions: New metFORMIN HCL ER [Glucophage XR] 500 mg PO BID #180 tab Isosorbide Mononitrate ER [Imdur] 15 mg PO DAILY #90 tab Atorvastatin [Lipitor] 40 mg PO HS #90 tab lisinopriL [Zestril] 2.5 mg PO DAILY #90 tab Aspirin 81 mg PO DAILY #90 tab No Action Naltrexone HCl [Revia] 50 mg PO DAILY Haloperidol Decanoate [Haldol D] 50 mg IM Q28D polyethylene glycoL 3350 [Miralax] 17 gm PO DAILY PRN PRN Reason: Constipation metFORMIN HCL 500 mg PO DIRECTED Melatonin 5 mg PO HS PRN PRN Reason: sleep Empagliflozin [Jardiance] 10 mg PO DAILY fluvoxaMINE MALEATE [Luvox CR] 150 mg PO DAILY Discharge Medication List Aspirin 81 mg PO DAILY #90 tab 02/05/24 [Rx] Atorvastatin [Lipitor] 40 mg PO HS #90 tab 02/05/24 [Rx] Empagliflozin [Jardiance] 10 mg PO DAILY 02/05/24 [History] Haloperidol Decanoate [Haldol D] 50 mg IM Q28D 02/05/24 [History] Isosorbide Mononitrate ER [Imdur] 15 mg PO DAILY #90 tab 02/05/24 [Rx] Melatonin 5 mg PO HS PRN 02/05/24 [History] Naltrexone HCl [Revia] 50 mg PO DAILY 02/05/24 [History] fluvoxaMINE MALEATE [Luvox CR] 150 mg PO DAILY 02/05/24 [History] lisinopriL [Zestril] 2.5 mg PO DAILY #90 tab 02/05/24 [Rx] metFORMIN HCL 500 mg PO DIRECTED 02/05/24 [History] metFORMIN HCL ER [Glucophage XR] 500 mg PO BID #180 tab 02/05/24 [Rx] polyethylene glycoL 3350 [Miralax] 17 gm PO DAILY PRN 02/05/24 [History] Follow up Appointment(s)/Referral(s): Chivo Steel MD [Medical Doctor] - 1 Week [facility] [Primary Care Provider] - 1-2 days Patient Instructions/Handouts: Chest Pain (DC), Cocaine Abuse (DC) Activity/Diet/Wound Care/Special Instructions: Please see your PCP. See cardio witin 1 week. Refrain from using cocaine. Discharge Disposition: HOME SELF-CARE
[2024-02-05] MEDS ORDERED: ATORVASTATIN 40 MG TAB PO SCH (21:00)
[2024-02-05] MEDS ORDERED: ATORVASTATIN 80 MG TAB PO SCH (21:00)
[2024-02-06] MEDS ORDERED: ASPIRIN 81 MG PO SCH (09:00)
== END 2024-02-05 12:53 | disposition home or self-care (01) ==
LOC: EC 17:46 → 6NMEDSUR 21:52
PROVIDERS: ADMIT Internal Medicine; ATTEND Internal Medicine
DX: R07.89 Other chest pain (principal); R07.2 Precordial pain; E11.65 Type 2 diabetes mellitus with hyperglycemia; I45.2 Bifascicular block; J44.9 Chronic obstructive pulmonary disease, unspecified; F14.90 Cocaine use, unspecified, uncomplicated; R10.32 Left lower quadrant pain; M79.602 Pain in left arm; R61 Generalized hyperhidrosis; R11.0 Nausea; D72.829 Elevated white blood cell count, unspecified; G40.909 Epilepsy, unspecified, not intractable, without status epilepticus; F41.9 Anxiety disorder, unspecified; F31.9 Bipolar disorder, unspecified; F90.9 Attention-deficit hyperactivity disorder, unspecified type; F20.9 Schizophrenia, unspecified; E66.01 Morbid (severe) obesity due to excess calories; Z68.42 Body mass index [BMI] 45.0-49.9, adult; Z88.8 Allergy status to other drugs, medicaments and biological substances; Z88.1 Allergy status to other antibiotic agents; Z91.041 Radiographic dye allergy status; Z91.010 Allergy to peanuts; Z88.0 Allergy status to penicillin; Z91.013 Allergy to seafood; Z87.891 Personal history of nicotine dependence; Z82.49 Family history of ischemic heart disease and other diseases of the circulatory system
CPT/HCPCS: 96365; 96366; 99285; 36415; 93005 ×2; 85379; 83880; 80061; 80053; 80048; 83735; 84484 ×2; 85025 ×2; 85610 ×2; 85730 ×2; 83036; 71046; G0378 ×2; J1644

== ENCOUNTER 2024-02-06 18:21 | Emergency (ER) | payer OTHER ==
--- NOTE | 2024-02-06 20:39 | ED ---
Chest Pain HPI - General Chief Complaint: Chest Pain Stated Complaint: Chest pain Time Seen by Provider: 02/06/24 19:45 Source: patient Mode of arrival: ambulatory Limitations: no limitations - History of Present Illness Initial Comments: 43-year-old female with past medical history of COPD, diabetes who presents emergency department reporting suicidal ideations. Patient triage states that she is seen for chest pain however patient denies that this is true. States she was having chest pain yesterday however patient was admitted and discharged. Coronary event was ruled out. She states today that she was dropped off at a hotel by her guardian. She has been out of food stamps. She attempted to visit a food bank however they did not provide her with enough food. She presents today stating that she wants to take all of her pills in an attempt to harm herself. States that she does not want to live like this any longer. She admit harvey that she scratched her right thigh but denies any other attempt at harming herself. She denies any homicidal ideations. Does admit to cocaine use. Patient does have a guardian. She states that they are not providing her with the appropriate amount of resources. - Related Data Home Medications Medication Instructions Recorded Confirmed Empagliflozin [Jardiance] 10 mg PO DAILY 02/05/24 02/05/24 Haloperidol Decanoate [Haldol D] 50 mg IM Q28D 02/05/24 02/05/24 Melatonin 5 mg PO HS PRN 02/05/24 02/05/24 Naltrexone HCl [Revia] 50 mg PO DAILY 02/05/24 02/05/24 fluvoxaMINE MALEATE [Luvox CR] 150 mg PO DAILY 02/05/24 02/05/24 metFORMIN HCL 500 mg PO DIRECTED 02/05/24 02/05/24 polyethylene glycoL 3350 [Miralax] 17 gm PO DAILY PRN 02/05/24 02/05/24 Previous Rx's Medication Instructions Recorded Aspirin 81 mg PO DAILY #90 tab 02/05/24 Atorvastatin [Lipitor] 40 mg PO HS #90 tab 02/05/24 Isosorbide Mononitrate ER [Imdur] 15 mg PO DAILY #90 tab 02/05/24 lisinopriL [Zestril] 2.5 mg PO DAILY #90 tab 02/05/24 metFORMIN HCL ER [Glucophage XR] 500 mg PO BID #180 tab 02/05/24 Allergies Allergy/AdvReac Type Severity Reaction Status Date / Time Iodinated Contrast Media Allergy Anaphylaxis Verified 02/06/24 19:05 [Iodinated Contrast Media - IV Dye] lacosamide [From Vimpat] Allergy Anaphylaxis Verified 02/06/24 19:05 peanut Allergy Anaphylaxis Verified 02/06/24 19:05 Penicillins Allergy Anaphylaxis Verified 02/06/24 19:05 shellfish derived Allergy swelling Verified 02/06/24 19:05 all over body cephalexin monohydrate AdvReac Nausea & Verified 02/06/24 19:05 [From Keflex] Vomiting & Diarrhea trazodone AdvReac bp Verified 02/06/24 19:05 issues/dizziness Review of Systems ROS Statement: Those systems with pertinent positive or pertinent negative responses have been documented in the HPI. ROS Other: All systems not noted in ROS Statement are negative. Past Medical History Past Medical History: Asthma, Heart Failure, COPD, Diabetes Mellitus, Fibromyalgia, GERD/Reflux, GI Bleed, Hypertension, Liver Disease, Osteoarthritis (OA), Pneumonia, Seizure Disorder, Skin Disorder Additional Past Medical History / Comment(s): Bronchitis, gestational diabetes, seizures with last one 01/2024, sickle cell trait, liver cirrhosis, anemia, chrons, IBS, ulcerative colitis, lowr GI bleed, hemorrhoids, constipation, psoriasis, migraines, chronic low back and cervical pain, scoliosis, arhtritis in multiple joints, gout bilateral feet, History of Any Multi-Drug Resistant Organisms: None Reported Past Surgical History: Cholecystectomy, Orthopedic Surgery Additional Past Surgical History / Comment(s): L oophorectomy d/t cyst, D&C, colonoscopy, L carpal tunnel release, Past Anesthesia/Blood Transfusion Reactions: Motion Sickness, Postoperative Nausea & Vomiting (PONV) Past Psychological History: Anxiety, Bipolar, Depression, Schizophrenia Smoking Status: Former smoker Past Alcohol Use History: None Reported Past Drug Use History: Cocaine - Past Family History Mother History Unknown: Yes Family Medical History: Cancer Additional Family Medical History / Comment(s): Mother had breast cancer and metnal illness She is living. Father Family Medical History: Cancer Additional Family Medical History / Comment(s): Father is . He had agent orange exposure. He had liver cancer, bowel to brain cancer. General Exam Limitations: no limitations General appearance: alert, in no apparent distress Head exam: Present: atraumatic, normocephalic, normal inspection Eye exam: Present: normal appearance, PERRL, EOMI. Absent: scleral icterus, conjunctival injection, periorbital swelling ENT exam: Present: normal exam, mucous membranes moist Neck exam: Present: normal inspection. Absent: tenderness, meningismus, lymphadenopathy Respiratory exam: Present: normal lung sounds bilaterally. Absent: respiratory distress, wheezes, rales, rhonchi, stridor Cardiovascular Exam: Present: regular rate, normal rhythm, normal heart sounds. Absent: systolic murmur, diastolic murmur, rubs, gallop, clicks GI/Abdominal exam: Present: soft, normal bowel sounds. Absent: distended, tenderness, guarding, rebound, rigid Extremities exam: Present: normal inspection, full ROM, normal capillary refill. Absent: tenderness, pedal edema, joint swelling, calf tenderness Back exam: Present: normal inspection Neurological exam: Present: alert, oriented X3, CN II-XII intact Psychiatric exam: Present: normal affect, normal mood Skin exam: Present: warm, dry, intact, normal color. Absent: rash Course Vital Signs 02/06/24 02/06/24 02/07/24 19:00 23:15 01:24 Temperature 98.7 F Pulse Rate 95 81 80 Pulse Rate [ Upper Leather Cutter ] Respiratory 18 20 20 Rate Blood Pressure 139/86 136/84 146/80 O2 Sat by Pulse 98 99 98 Oximetry 02/07/24 02/07/24 02/07/24 02:00 07:45 09:27 Temperature 98.9 F 98.0 F Pulse Rate 80 62 78 Pulse Rate [ 80 Upper Leather Cutter ] Respiratory 20 16 18 Rate Blood Pressure 140/82 137/75 140/80 O2 Sat by Pulse 95 95 96 Oximetry Chest Pain MDM - MDM Was pt. sent in by a medical professional or institution (, PA, PIPELINES LABORER, urgent care, hospital, or [facility]...) When possible be specific @ -No Did you speak to anyone other than the patient for history (EMS, parent, family, police, friend...)? What history was obtained from this source @ -No Did you review nursing and triage notes (agree or disagree)? Why? @ -I reviewed and I disagree. Patient admits that she is not presenting today due to her chest pain Were old charts reviewed (outside hosp., previous admission, EMS record, old EKG, old radiological studies, urgent care reports/EKG's, [facility] records)? Report findings @ -I reviewed discharge summary from yesterday where coronary event was ruled out Differential Diagnosis (chest pain, altered mental status, abdominal pain women, abdominal pain men, vaginal bleeding, weakness, fever, dyspnea, syncope, headache, dizziness, GI bleed, back pain, seizure, CVA, palpatations, mental health, musculoskeletal)? @ -Differential Chest Pain: Stable Angina, Unstable Angina, STEMI, NSTEMI Aortic Dissection, Pneumothorax, Musculoskeletal, Esophageal Spasm GERD, Cholecystitis, Pancreatitis, Zoster, this is not meant to be an all-inclusive list. EKG interpreted by me (3pts min.). @ -yes and demonstrates sinus rhythm with a rate of 78. IL interval 162. QRS 167. QTc of 429. There is a right bundle branch block. Left anterior fascicular block. No acute ST segment elevations. EKG similar in appearance to previous EKG X-rays interpreted by me (1pt min.). @ -None done CT interpreted by me (1pt min.). @ -None done U/S interpreted by me (1pt. min.). @ -None done What testing was considered but not performed or refused? (CT, X-rays, U/S, labs)? Why? @ -None What meds were considered but not given or refused? Why? @ -None Did you discuss the management of the patient with other professionals (professionals i.e. , PA, PIPELINES LABORER, lab, RT, psych nurse, social media intern, preschool teacher's assistant, teacher, career services officer, case manager specialist)? Give summary @ -Spoke with the EPS who will evaluate the patient Was smoking cessation discussed for >3mins.? @ -No Was critical care preformed (if so, how long)? @ -No Were there social determinants of health that impacted care today? How? (Homelessness, low income, unemployed, alcoholism, drug addiction, transportation, low edu. Level, literacy, decrease access to med. care, custodial, rehab)? @ -Patient is staying at [facility] and has a guardian who provides her with resources Was there de-escalation of care discussed even if they declined (Discuss DNR or withdrawal of care, Hospice)? DNR status @ -No What co-morbidities impacted this encounter? (DM, HTN, Smoking, COPD, CAD, Cancer, CVA, ARF, Chemo, Hep., AIDS, mental health diagnosis, sleep apnea, morbid obesity)? @ -Diabetes, COPD Was patient admitted / discharged? Hospital course, mention meds given and route, prescriptions, significant lab abnormalities, going to OR and other pertinent info. @ -Upon arrival patient seen and evaluated in room 14. Thorough history and physical exam was performed. I did complete a cardiac workup which was negative. Patient is cleared for EPS at this time Disposition Clinical Impression: Depression Disposition: HOME SELF-CARE Condition: Stable Is patient prescribed a controlled substance at d/c from ED?: No Referrals: None,Stated [Primary Care Provider] - 1-2 days
[2024-02-06 21:54] LABS: HCT 42.1 % (34.0-46.0); HGB 12.9 gm/dL (11.4-16.0); Lymphocytes % (A) 16 %; MCH 28.2 pg (25.0-35.0); MCHC 30.7 g/dL (31.0-37.0); MCV 91.8 fL (80.0-100.0); Mean Platelet Volume 7.6; Monocytes % (A) 4 %; Neutrophils % (A) 74 %; Platelet Count 248 k/uL (150-450); RBC 4.59 m/uL (3.80-5.40); RDW 14.8 % (11.5-15.5); WBC 19.5 k/uL (3.8-10.6)
[2024-02-06 21:55] LABS: Basophils # (A) 0.1 k/uL (0-0.2); Basophils % (A) 1 %; Eosinophils # (A) 0.7 k/uL (0-0.7); Eosinophils % (A) 4 %; Lymphocytes # (A) 3.2 k/uL (1.0-4.8); Monocytes # (A) 0.8 k/uL (0-1.0); Neutrophils # (A) 14.5 k/uL (1.3-7.7)
[2024-02-06 22:15] LABS: INR 0.8 (<1.2); Prothrombin Time 9.4 sec (10.0-12.5)
[2024-02-06 22:40] LABS: ALT 27 U/L (4-34); AST 22 U/L (14-36); African American GFR (CKD) >90 (>60 ml/min/1.73 sqM); Albumin 3.8 g/dL (3.5-5.0); Alkaline Phosphatase 103 U/L (38-126); Anion Gap 10 mmol/L; Blood Urea Nitrogen 15 mg/dL (7-17); Calcium 9.2 mg/dL (8.4-10.2); Carbon Dioxide 20 mmol/L (22-30); Chloride 103 mmol/L (98-107); Glucose 347 mg/dL (74-99); Lipase 196 U/L (23-300); Magnesium 1.6 mg/dL (1.6-2.3); Non-African American GFR(CKD) >90 (>60 ml/min/1.73 sqM); Potassium 4.3 mmol/L (3.5-5.1); Sodium 133 mmol/L (137-145); Total Bilirubin 0.2 mg/dL (0.2-1.3); Total Protein 6.8 g/dL (6.3-8.2)
[2024-02-07 01:22] LABS: Glucose,Whole Blood 384 mg/dL (70-110)
[2024-02-07] MEDS: INSULIN REGULAR 100 UNIT/ML VIAL (IM/SQ) SQ ONE ×2 (01:37→07:49)
[2024-02-07] MEDS ORDERED: MELATONIN 5 MG TABLET PO PRN (02:06)
[2024-02-07] MEDS ORDERED: polyethylene glycoL 3350 17 GM POWD.PACK PO PRN (02:06)
[2024-02-07 07:43] LABS: Glucose,Whole Blood 243 mg/dL (70-110)
[2024-02-07] MEDS: FLUVOXAMINE MALEATE 150 MG PO SCH (07:52)
[2024-02-07] MEDS: ISOSORBIDE MONONITRATE ER 15 MG TAB PO SCH (08:14)
[2024-02-07] MEDS: metFORMIN 500 MG TAB PO SCH (08:14)
[2024-02-07] MEDS: NALTREXONE HCL 50 MG TAB PO SCH (08:14)
[2024-02-07] MEDS: ASPIRIN 81 MG PO SCH (08:14)
[2024-02-07] MEDS: DAPAGLIFLOZIN PROPANEDIOL 5 MG TABLET PO SCH (08:14)
[2024-02-07 09:27] VITALS: BP 140/80; PULSE 78; RESP 18; TEMP 98
[2024-02-07] MEDS ORDERED: ATORVASTATIN 40 MG TAB PO SCH (21:00)
== END 2024-02-07 09:27 | disposition home or self-care (01) ==
LOC: EC 18:21
DX: F32.A Depression, unspecified (principal); E11.9 Type 2 diabetes mellitus without complications; J44.89 Other specified chronic obstructive pulmonary disease; I45.2 Bifascicular block; Z79.84 Long term (current) use of oral hypoglycemic drugs; Z88.0 Allergy status to penicillin; Z88.1 Allergy status to other antibiotic agents; Z88.8 Allergy status to other drugs, medicaments and biological substances; Z91.041 Radiographic dye allergy status; Z91.010 Allergy to peanuts; Z91.013 Allergy to seafood; Z87.891 Personal history of nicotine dependence
CPT/HCPCS: 36415; 80053; 82075; 83690; 83735; 84484; 85025; 85379; 85610; 85730; 93005; 99285

== ENCOUNTER 2024-02-13 16:04 | Emergency (ER) | payer OTHER ==
[2024-02-13 16:09] VITALS: RESP 20
--- NOTE | 2024-02-13 16:48 | ED ---
General Adult HPI - General Chief complaint: Wound/Laceration Stated complaint: Left finger laceration Time Seen by Provider: 02/13/24 16:09 Source: patient, EMS, RN notes reviewed Mode of arrival: ambulatory Limitations: no limitations - History of Present Illness Initial comments: 43-year-old female presents to the emergency department for evaluation of laceration to her left index finger. Patient states that she cut it on the toilet paper roll [employer] at the hotel she is staying at. She reports normal range of motion to her fingers. She does state that she attempted to clean this with peroxide. She is up to date on a tetanus vaccine. - Related Data Home Medications Medication Instructions Recorded Confirmed Empagliflozin [Jardiance] 10 mg PO DAILY 02/05/24 02/05/24 Haloperidol Decanoate [Haldol D] 50 mg IM Q28D 02/05/24 02/05/24 Melatonin 5 mg PO HS PRN 02/05/24 02/05/24 Naltrexone HCl [Revia] 50 mg PO DAILY 02/05/24 02/05/24 fluvoxaMINE MALEATE [Luvox CR] 150 mg PO DAILY 02/05/24 02/05/24 metFORMIN HCL 500 mg PO DIRECTED 02/05/24 02/05/24 polyethylene glycoL 3350 [Miralax] 17 gm PO DAILY PRN 02/05/24 02/05/24 Previous Rx's Medication Instructions Recorded Aspirin 81 mg PO DAILY #90 tab 02/05/24 Atorvastatin [Lipitor] 40 mg PO HS #90 tab 02/05/24 Isosorbide Mononitrate ER [Imdur] 15 mg PO DAILY #90 tab 02/05/24 lisinopriL [Zestril] 2.5 mg PO DAILY #90 tab 02/05/24 metFORMIN HCL ER [Glucophage XR] 500 mg PO BID #180 tab 02/05/24 Allergies Allergy/AdvReac Type Severity Reaction Status Date / Time Iodinated Contrast Media Allergy Anaphylaxis Verified 02/13/24 16:10 [Iodinated Contrast Media - IV Dye] lacosamide [From Vimpat] Allergy Anaphylaxis Verified 02/13/24 16:10 peanut Allergy Anaphylaxis Verified 02/13/24 16:10 Penicillins Allergy Anaphylaxis Verified 02/13/24 16:10 shellfish derived Allergy swelling Verified 02/13/24 16:10 all over body cephalexin monohydrate AdvReac Nausea & Verified 02/13/24 16:10 [From Keflex] Vomiting & Diarrhea trazodone AdvReac bp Verified 02/13/24 16:10 issues/dizziness Review of Systems ROS Statement: Those systems with pertinent positive or pertinent negative responses have been documented in the HPI. ROS Other: All systems not noted in ROS Statement are negative. Past Medical History Past Medical History: Asthma, Heart Failure, COPD, Diabetes Mellitus, Fibromyalgia, GERD/Reflux, GI Bleed, Hypertension, Liver Disease, Osteoarthritis (OA), Pneumonia, Seizure Disorder, Skin Disorder Additional Past Medical History / Comment(s): Bronchitis, gestational diabetes, seizures with last one 01/2024, sickle cell trait, liver cirrhosis, anemia, chrons, IBS, ulcerative colitis, lowr GI bleed, hemorrhoids, constipation, psoriasis, migraines, chronic low back and cervical pain, scoliosis, arhtritis in multiple joints, gout bilateral feet, History of Any Multi-Drug Resistant Organisms: None Reported Past Surgical History: Cholecystectomy, Orthopedic Surgery Additional Past Surgical History / Comment(s): L oophorectomy d/t cyst, D&C, colonoscopy, L carpal tunnel release, Past Anesthesia/Blood Transfusion Reactions: Motion Sickness, Postoperative N ausea & Vomiting (PONV) Past Psychological History: Anxiety, Bipolar, Depression, Schizophrenia Smoking Status: Former smoker Past Alcohol Use History: None Reported Past Drug Use History: Cocaine - Past Family History Mother History Unknown: Yes Family Medical History: Cancer Additional Family Medical History / Comment(s): Mother had breast cancer and metnal illness She is living. Father Family Medical History: Cancer Additional Family Medical History / Comment(s): Father is . He had agent orange exposure. He had liver cancer, bowel to brain cancer. General Exam Limitations: no limitations General appearance: alert, in no apparent distress Head exam: Present: atraumatic, normocephalic, normal inspection Eye exam: Present: normal appearance, PERRL, EOMI. Absent: scleral icterus, conjunctival injection, periorbital swelling ENT exam: Present: normal exam, mucous membranes moist Respiratory exam: Present: normal lung sounds bilaterally. Absent: respiratory distress, wheezes, rales, rhonchi, stridor Cardiovascular Exam: Present: regular rate, normal rhythm, normal heart sounds. Absent: systolic murmur, diastolic murmur, rubs, gallop, clicks Extremities exam: Present: full ROM, tenderness, normal capillary refill, other (laceration to 2nd finger left hand) Neurological exam: Present: alert, oriented X3 Psychiatric exam: Present: normal affect, normal mood Skin exam: Present: warm, dry, normal color. Absent: intact Course Vital Signs 02/13/24 16:07 Temperature 98.8 F Pulse Rate 74 Respiratory 20 Rate Blood Pressure 138/81 O2 Sat by Pulse 96 Oximetry Medical Decision Making - Medical Decision Making Was pt. sent in by a medical professional or institution (, PA, FISHING ROD TRIMMER, urgent care, hospital, or [place] [facility]...) When possible be specific @ -[No] Did you speak to anyone other than the patient for history (EMS, parent, family, police, friend...)? What history was obtained from this source @ -[No] Did you review nursing and triage notes (agree or disagree)? Why? @ -[I reviewed and agree with nursing and triage notes] Were old charts reviewed (outside hosp., previous admission, EMS record, old EKG, old radiological studies, urgent care reports/EKG's, [place] [facility] records)? Report findings @ -[No old charts were reviewed] Differential Diagnosis (chest pain, altered mental status, abdominal pain women, abdominal pain men, vaginal bleeding, weakness, fever, dyspnea, syncope, headache, dizziness, GI bleed, back pain, seizure, CVA, palpatations, mental health, musculoskeletal)? @ -[Differential Musculoskeletal Muscular strain, contusion, ligament sprain, fracture, arthritis, septic arthritis, bursitis, cellulitis, muscle spasm, nerve compression, DVT, arterial occlusion, herpes zoster, electrolyte abnormality, tumor.... This is not meant to be in all inclusive list] EKG interpreted by me (3pts min.). @ -None X-rays interpreted by me (1pt min.). @ -[None done] CT interpreted by me (1pt min.). @ -[None done] U/S interpreted by me (1pt. min.). @ -[None done] What testing was considered but not performed or refused? (CT, X-rays, U/S, labs)? Why? @ -[None] What meds were considered but not given or refused? Why? @ -[None] Did you discuss the management of the patient with other professionals (professionals i.e. , PA, FISHING ROD TRIMMER, lab, RT, psych nurse, social worker assistant, lye boiler, teacher, traffic police officer, block and case maker)? Give summary @ -[No] Was smoking cessation discussed for >3mins.? @ -[No] Was critical care preformed (if so, how long)? @ -[No] Were there social determinants of health that impacted care today? How? (Homelessness, low income, unemployed, alcoholism, drug addiction, transportation, low edu. Level, literacy, decrease access to med. care, alf, r ehab)? @ -[No] Was there de-escalation of care discussed even if they declined (Discuss DNR or withdrawal of care, Hospice)? DNR status @ -[No] What co-morbidities impacted this encounter? (DM, HTN, Smoking, COPD, CAD, Cancer, CVA, ARF, Chemo, Hep., AIDS, mental health diagnosis, sleep apnea, morbid obesity)? @ -[None] Was patient admitted / discharged? Hospital course, mention meds given and r oute, prescriptions, significant lab abnormalities, going to OR and other pertinent info. @ -[hospital course] Undiagnosed new problem with uncertain prognosis? @ -[No] Drug Therapy requiring intensive monitoring for toxicity (Heparin, Nitro, Insulin, Cardizem)? @ -[No] Were any procedures done? @ -[No] Diagnosis/symptom? @ -[default] Acute, or Chronic, or Acute on Chronic? @ -[default] Uncomplicated (without systemic symptoms) or Complicated (systemic symptoms)? @ -[default] Side effects of treatment? @ -[No] Exacerbation, Progression, or Severe Exacerbation? @ -[No] Poses a threat to life or bodily function? How? (Chest pain, [place], [place], pneumonia, PE, COPD, DKA, ARF, appy, cholecystitis, CVA, Diverticulitis, Homicidal, Suicidal, threat to staff... and all critical care pts) @ -[No] Disposition Clinical Impression: Laceration Disposition: HOME SELF-CARE Condition: Stable Instructions (If sedation given, give patient instructions): Care For Your Stitches (ED) Additional Instructions: Please keep wound clean and dry. Have stitches removed in 7-10 days. Follow up with your primary care provider. Is patient prescribed a controlled substance at d/c from ED?: No Referrals: None,Stated [Primary Care Provider] - 1-2 days
[2024-02-13] MEDS: LIDOCAINE 1% INJ 10MG/ML (20 ML MDV) SQ ONE (17:19)
[2024-02-13 17:53] VITALS: BP 127/83; PULSE 69; TEMP 98.2
== END 2024-02-13 17:50 | disposition home or self-care (01) ==
LOC: EC 16:04
DX: S61.211A Laceration without foreign body of left index finger without damage to nail, initial encounter (principal); Z87.891 Personal history of nicotine dependence; Z88.0 Allergy status to penicillin; Z91.013 Allergy to seafood; Z91.010 Allergy to peanuts; Z91.041 Radiographic dye allergy status; Z88.8 Allergy status to other drugs, medicaments and biological substances; W26.8XXA Contact with other sharp object(s), not elsewhere classified, initial encounter; Y92.59 Other trade areas as the place of occurrence of the external cause
CPT/HCPCS: 99283 ×2; J2001

== ENCOUNTER 2024-02-22 20:28 | Emergency (ER) | payer OTHER ==
[2024-02-22 20:40] VITALS: RESP 16
--- NOTE | 2024-02-22 21:19 | ED ---
General Adult HPI - General Chief complaint: Seizure Stated complaint: Seizure Time Seen by Provider: 02/22/24 20:51 Source: patient, EMS, RN notes reviewed, old records reviewed Mode of arrival: EMS Limitations: no limitations - History of Present Illness Initial comments: 43-year-old female presents with multiple complaints. Stating she is out of her Zonegran which she takes for seizure disorder. She states she has been out for several weeks. She states she does not have a primary care provider and believes she may have had a seizure today. She also states that she is living in a hotel and that her guardian is not providing her with food. - Related Data Home Medications Medication Instructions Recorded Confirmed Empagliflozin [Jardiance] 10 mg PO DAILY 02/05/24 02/05/24 Haloperidol Decanoate [Haldol D] 50 mg IM Q28D 02/05/24 02/05/24 Melatonin 5 mg PO HS PRN 02/05/24 02/05/24 Naltrexone HCl [Revia] 50 mg PO DAILY 02/05/24 02/05/24 fluvoxaMINE MALEATE [Luvox CR] 150 mg PO DAILY 02/05/24 02/05/24 metFORMIN HCL 500 mg PO DIRECTED 02/05/24 02/05/24 polyethylene glycoL 3350 [Miralax] 17 gm PO DAILY PRN 02/05/24 02/05/24 Previous Rx's Medication Instructions Recorded Aspirin 81 mg PO DAILY #90 tab 02/05/24 Atorvastatin [Lipitor] 40 mg PO HS #90 tab 02/05/24 Isosorbide Mononitrate ER [Imdur] 15 mg PO DAILY #90 tab 02/05/24 lisinopriL [Zestril] 2.5 mg PO DAILY #90 tab 02/05/24 metFORMIN HCL ER [Glucophage XR] 500 mg PO BID #180 tab 02/05/24 Allergies Allergy/AdvReac Type Severity Reaction Status Date / Time Iodinated Contrast Media Allergy Anaphylaxis Verified 02/13/24 16:10 [Iodinated Contrast Media - IV Dye] lacosamide [From Vimpat] Allergy Anaphylaxis Verified 02/13/24 16:10 peanut Allergy Anaphylaxis Verified 02/13/24 16:10 Penicillins Allergy Anaphylaxis Verified 02/13/24 16:10 shellfish derived Allergy swelling Verified 02/13/24 16:10 all over body cephalexin monohydrate AdvReac Nausea & Verified 02/13/24 16:10 [From Keflex] Vomiting & Diarrhea trazodone AdvReac bp Verified 02/13/24 16:10 issues/dizziness Review of Systems ROS Statement: Those systems with pertinent positive or pertinent negative responses have been documented in the HPI. ROS Other: All systems not noted in ROS Statement are negative. Past Medical History Past Medical History: Asthma, Heart Failure, COPD, Diabetes Mellitus, Fibromyalgia, GERD/Reflux, GI Bleed, Hypertension, Liver Disease, Osteoarthritis (OA), Pneumonia, Seizure Disorder, Skin Disorder Additional Past Medical History / Comment(s): Bronchitis, gestational diabetes, seizures with last one 01/2024, sickle cell trait, liver cirrhosis, anemia, chrons, IBS, ulcerative colitis, lowr GI bleed, hemorrhoids, constipation, psoriasis, migraines, chronic low back and cervical pain, scoliosis, arhtritis in multiple joints, gout bilateral feet, History of Any Multi-Drug Resistant Organisms: None Reported Past Surgical History: Cholecystectomy, Orthopedic Surgery Additional Past Surgical History / Comment(s): L oophorectomy d/t cyst, D&C, colonoscopy, L carpal tunnel release, Past Anesthesia/Blood Transfusion Reactions: Motion Sickness, Postoperative Javad sea & Vomiting (PONV) Past Psychological History: Anxiety, Bipolar, Depression, Schizophrenia Smoking Status: Former smoker Past Drug Use History: Cocaine - Past Family History Mother History Unknown: Yes Family Medical History: Cancer Additional Family Medical History / Comment(s): Mother had breast cancer and metnal illness She is living. Father Family Medical History: Cancer Additional Family Medical History / Comment(s): Father is . He had agent orange exposure. He had liver cancer, bowel to brain cancer. General Exam General appearance: alert, in no apparent distress Head exam: Present: atraumatic, normocephalic Eye exam: Present: normal appearance, PERRL ENT exam: Present: normal exam Neck exam: Present: normal inspection. Absent: tenderness Respiratory exam: Present: normal lung sounds bilaterally. Absent: respiratory distress, wheezes Cardiovascular Exam: Present: regular rate, normal rhythm GI/Abdominal exam: Present: soft. Absent: distended, tenderness Extremities exam: Present: normal inspection, normal capillary refill. Absent: pedal edema Neurological exam: Present: alert, oriented X3, CN II-XII intact. Absent: motor sensory deficit Skin exam: Present: warm, dry, intact Course Vital Signs 02/22/24 02/22/24 20:36 21:36 Pulse Rate 71 68 Respiratory 16 16 Rate Blood Pressure 138/73 121/54 O2 Sat by Pulse 96 98 Oximetry - Reevaluation(s) Reevaluation #1: 02/22/24 22:01 I review of recent medications it does not appear that this patient is taking Zonegran Medical Decision Making - Medical Decision Making Was pt. sent in by a medical professional or institution (CLIF Ramirez, DIRECTOR EMERGENCY DEPARTMENT, urgent care, hospital, or [facility]...) When possible be specific @ -No Did you speak to anyone other than the patient for history (EMS, parent, family, police, friend...)? What history was obtained from this source @ -No Did you review nursing and triage notes (agree or disagree)? Why? @ -I reviewed and agree with nursing and triage notes Were old charts reviewed (outside hosp., previous admission, EMS record, old EKG, old radiological studies, urgent care reports/EKG's, ch[facility] records)? Report findings @ -No old charts were reviewed Differential Seizure: Recurrent seizure disorder, febrile seizure, alcohol withdrawal, stimulants, meningitis, encephalitis, intercranial hemorrhage, intracranial tumor, stroke, eclampsia, thyrotoxicosis, hypocalcemia, hyponatremia, hypernatremia, hypomagnesemia, psychogenic, this is not meant to be an all-inclusive list. EKG interpreted by me (3pts min.). @ -Sinus rhythm right bundle branch block, left anterior fascicular block, similar appearance compared to previous EKG, rate of 71, LA interval 174, QRS duration 173, QTc [address] segment elevation. X-rays interpreted by me (1pt min.). @ -None done CT interpreted by me (1pt min.). @ -None done U/S interpreted by me (1pt. min.). @ -None done What testing was considered but not performed or refused? (CT, X-rays, U/S, labs)? Why? @ -None What meds were considered but not given or refused? Why? @ -None Did you discuss the management of the patient with other professionals (professionals i.e. , CLIF, DIRECTOR EMERGENCY DEPARTMENT, lab, RT, psych nurse, psychosocial rehabilitation counselor, designer and patternmaker, teacher, building drafting officer, case management assistant)? Give summary @ -No Was smoking cessation discussed for >3mins.? @ -No Was critical care preformed (if so, how long)? @ -No Were there social determinants of health that impacted care today? How? (Homelessness, low income, unemployed, alcoholism, drug addiction, hidalgo sportation, low edu. Level, literacy, decrease access to med. care, intermediate, rehab)? @ -No Was there de-escalation of care discussed even if they declined (Discuss DNR or withdrawal of care, Hospice)? DNR status @ -No What co-morbidities impacted this encounter? (DM, HTN, Smoking, COPD, CAD, Cancer, CVA, ARF, Chemo, Hep., AIDS, mental health diagnosis, sleep apnea, morbid obesity)? @ -Seizure disorder Was patient admitted / discharged? Hospital course, mention meds given and route, prescriptions, significant lab abnormalities, going to OR and other pertinent info. @ -43-year-old female with multiple complaints including the possibility of a focal seizure. Patient is afebrile vital signs are stable. Neurologic exam is unremarkable. Patient has normal CBC showing chronic mild leukocytosis, normal CMP. She states she is out of her medication but has been out of it for some time and review of the medical record does not indicate that this patient is currently on Zonegran. I do feel rather than starting this medication she should follow with her primary care provider or her neurologist for refill. Stable for discharge at this time. Undiagnosed new problem with uncertain prognosis? @ -No Drug Therapy requiring intensive monitoring for toxicity (Heparin, Nitro, Insulin, Cardizem)? @ -No Were any procedures done? @ -No Diagnosis/symptom? @ -Recurrent seizure Acute, or Chronic, or Acute on Chronic? @ -[Acute on chronic Uncomplicated (without systemic symptoms) or Complicated (systemic symptoms)? @ -Default Side effects of treatment? @ -No Exacerbation, Progression, or Severe Exacerbation? @ -No Poses a threat to life or bodily function? How? (Chest pain, USA, [place], pneumonia, PE, COPD, DKA, ARF, appy, cholecystitis, CVA, Diverticulitis, Homicidal, Suicidal, threat to staff... and all critical care pts) @ -[Low risk at this - Lab Data Result diagrams: 02/22/24 21:05 02/22/24 21:05 Lab Results 02/22/24 02/22/24 02/22/24 Range/Units 21:05 21:05 21:05 WBC 14.8 H (3.8-10.6) k/uL RBC 4.34 (3.80-5.40) m/uL Hgb 12.6 (11.4-16.0) gm/dL Hct 38.5 (34.0-46.0) % MCV 88.6 (80.0-100.0) fL MCH 29.0 (25.0-35.0) pg MCHC 32.7 (31.0-37.0) g/dL RDW 14.8 (11.5-15.5) % Plt Count 229 (150-450) k/uL MPV 6.9 Neutrophils % 71 % Lymphocytes % 18 % Monocytes % 5 % Eosinophils % 4 % Basophils % 0 % Neutrophils # 10.4 H (1.3-7.7) k/uL Lymphocytes # 2.6 (1.0-4.8) k/uL Monocytes # 0.8 (0-1.0) k/uL Eosinophils # 0.6 (0-0.7) k/uL Basophils # 0.0 (0-0.2) k/uL Hypochromasia Slight PT 10.1 (10.0-12.5) sec INR 0.9 (<1.2) APTT 23.0 (22.0-30.0) sec Sodium 139 (137-145) mmol/L Potassium 3.9 (3.5-5.1) mmol/L Chloride 106 (98-107) mmol/L Carbon Dioxide 25 (22-30) mmol/L Anion Gap 8 mmol/L BUN 14 (7-17) mg/dL Creatinine 0.63 (0.52-1.04) mg/dL Est GFR (CKD-EPI)AfAm >90 (>60 ml/min/1.73 sqM) Est GFR (CKD-EPI)NonAf >90 (>60 ml/min/1.73 sqM) Glucose 171 H (74-99) mg/dL Calcium 8.8 (8.4-10.2) mg/dL Magnesium 1.9 (1.6-2.3) mg/dL Total Bilirubin 0.3 (0.2-1.3) mg/dL AST 30 (14-36) U/L ALT 26 (4-34) U/L Alkaline Phosphatase 80 (38-126) U/L Troponin I (0.000-0.034) ng/mL Total Protein 6.7 (6.3-8.2) g/dL Albumin 3.6 (3.5-5.0) g/dL 02/22/24 Range/Units 21:05 WBC (3.8-10.6) k/uL RBC (3.80-5.40) m/uL Hgb (11.4-16.0) gm/dL Hct (34.0-46.0) % MCV (80.0-100.0) fL MCH (25.0-35.0) pg MCHC (31.0-37.0) g/dL RDW (11.5-15.5) % Plt Count (150-450) k/uL MPV Neutrophils % % Lymphocytes % % Monocytes % % Eosinophils % % Basophils % % Neutrophils # (1.3-7.7) k/uL Lymphocytes # (1.0-4.8) k/uL Monocytes # (0-1.0) k/uL Eosinophils # (0-0.7) k/uL Basophils # (0-0.2) k/uL Hypochromasia PT (10.0-12.5) sec INR (<1.2) APTT (22.0-30.0) sec Sodium (137-145) mmol/L Potassium (3.5-5.1) mmol/L Chloride (98-107) mmol/L Carbon Dioxide (22-30) mmol/L Anion Gap mmol/L BUN (7-17) mg/dL Creatinine (0.52-1.04) mg/dL Est GFR (CKD-EPI)AfAm (>60 ml/min/1.73 sqM) Est GFR (CKD-EPI)NonAf (>60 ml/min/1.73 sqM) Glucose (74-99) mg/dL Calcium (8.4-10.2) mg/dL Magnesium (1.6-2.3) mg/dL Total Bilirubin (0.2-1.3) mg/dL AST (14-36) U/L ALT (4-34) U/L Alkaline Phosphatase (38-126) U/L Troponin I <0.012 (0.000-0.034) ng/mL Total Protein (6.3-8.2) g/dL Albumin (3.5-5.0) g/dL Disposition Clinical Impression: Focal seizure Disposition: HOME SELF-CARE Condition: Fair Instructions (If sedation given, give patient instructions): Seizure/Epilepsy Discharge Instructions & Follow-Up, Recurrent Seizures in Adults (ED) Is patient prescribed a controlled substance at d/c from ED?: No Referrals: None,Stated [Primary Care Provider] - 1-2 days Ede Colón DO [REFERRING] - 1-2 days Time of Disposition: 22:02
[2024-02-22 21:39] LABS: Basophils % (A) 0 %; Eosinophils # (A) 0.6 k/uL (0-0.7); Eosinophils % (A) 4 %; HCT 38.5 % (34.0-46.0); HGB 12.6 gm/dL (11.4-16.0); Hypochromasia Slight; Lymphocytes # (A) 2.6 k/uL (1.0-4.8); Lymphocytes % (A) 18 %; MCHC 32.7 g/dL (31.0-37.0); MCV 88.6 fL (80.0-100.0); Mean Platelet Volume 6.9; Monocytes # (A) 0.8 k/uL (0-1.0); Monocytes % (A) 5 %; Neutrophils # (A) 10.4 k/uL (1.3-7.7); Neutrophils % (A) 71 %; Platelet Count 229 k/uL (150-450); RBC 4.34 m/uL (3.80-5.40); RDW 14.8 % (11.5-15.5); WBC 14.8 k/uL (3.8-10.6)
[2024-02-22 22:03] LABS: ALT 26 U/L (4-34); AST 30 U/L (14-36); African American GFR (CKD) >90 (>60 ml/min/1.73 sqM); Albumin 3.6 g/dL (3.5-5.0); Alkaline Phosphatase 80 U/L (38-126); Anion Gap 8 mmol/L; Blood Urea Nitrogen 14 mg/dL (7-17); Calcium 8.8 mg/dL (8.4-10.2); Carbon Dioxide 25 mmol/L (22-30); Chloride 106 mmol/L (98-107); Glucose 171 mg/dL (74-99); Magnesium 1.9 mg/dL (1.6-2.3); Non-African American GFR(CKD) >90 (>60 ml/min/1.73 sqM); Potassium 3.9 mmol/L (3.5-5.1); Sodium 139 mmol/L (137-145); Total Bilirubin 0.3 mg/dL (0.2-1.3); Total Protein 6.7 g/dL (6.3-8.2)
[2024-02-22 22:08] LABS: INR 0.9 (<1.2); Prothrombin Time 10.1 sec (10.0-12.5)
[2024-02-22 23:04] VITALS: BP 121/72; PULSE 78; TEMP 98.1
== END 2024-02-22 22:58 | disposition home or self-care (01) ==
LOC: EC 20:28
DX: G40.109 Localization-related (focal) (partial) symptomatic epilepsy and epileptic syndromes with simple partial seizures, not intractable, without status epilepticus (principal); Z91.041 Radiographic dye allergy status; Z91.010 Allergy to peanuts; Z91.013 Allergy to seafood; Z88.1 Allergy status to other antibiotic agents; Z88.8 Allergy status to other drugs, medicaments and biological substances; Z88.0 Allergy status to penicillin; Z87.891 Personal history of nicotine dependence
CPT/HCPCS: 36415; 80053; 83735; 84484; 85025; 85610; 85730; 93005; 99284

== ENCOUNTER 2024-02-26 20:13 | Observation (INO) | payer OTHER ==
--- NOTE | 2024-02-26 20:37 | ED ---
SOB HPI - General Chief Complaint: Shortness of Breath Stated Complaint: Chest pain Time Seen by Provider: 02/26/24 20:17 Source: patient, EMS, RN notes reviewed, old records reviewed Mode of arrival: EMS Limitations: no limitations - History of Present Illness Initial Comments: 43-year-old female with a history of multiple medical problems including COPD and asthma diabetes heart failure hypertension seizures who states she fell after she slipped getting out of the shower today she landed on her chest she also complains of left knee and left ankle pain. No head or neck pain. She states she has been out of her medications for 6 months as she was not assigned a doctor and when she had did not take her back as the patient. She states the pain is anterior chest as well as some left lateral chest pain. No cough she denies any shortness of breath at this time though she did have some earlier. She was brought in by EMS. MD Complaint: shortness of breath, chest pain - Related Data Home Medications Medication Instructions Recorded Confirmed Empagliflozin [Jardiance] 10 mg PO DAILY 02/05/24 02/27/24 Haloperidol Decanoate [Haldol D] 50 mg IM Q28D 02/05/24 02/27/24 Melatonin 5 mg PO HS PRN 02/05/24 02/27/24 Naltrexone HCl [Revia] 50 mg PO DAILY 02/05/24 02/27/24 fluvoxaMINE MALEATE [Luvox CR] 150 mg PO DAILY 02/05/24 02/27/24 polyethylene glycoL 3350 [Miralax] 17 gm PO DAILY PRN 02/05/24 02/27/24 Aspirin 81 mg PO DIRECTED 02/27/24 02/27/24 Atorvastatin Calcium [Lipitor] 40 mg PO DIRECTED 02/27/24 02/27/24 Isosorbide Mononitrate ER [Imdur] 15 mg PO DIRECTED 02/27/24 02/27/24 lisinopriL [Zestril] 2.5 mg PO DIRECTED 02/27/24 02/27/24 metFORMIN HCL ER [Glucophage XR] 500 mg PO DIRECTED 02/27/24 02/27/24 Allergies Allergy/AdvReac Type Severity Reaction Status Date / Time Iodinated Contrast Media Allergy Anaphylaxis Verified 02/27/24 11:47 [Iodinated Contrast Media - IV Dye] lacosamide [From Vimpat] Allergy Anaphylaxis Verified 02/27/24 11:47 peanut Allergy Anaphylaxis Verified 02/27/24 11:47 Penicillins Allergy Anaphylaxis Verified 02/27/24 11:47 shellfish derived Allergy swelling Verified 02/27/24 11:47 all over body cephalexin monohydrate AdvReac Nausea & Verified 02/27/24 11:47 [From Keflex] Vomiting & Diarrhea trazodone AdvReac bp Verified 02/27/24 11:47 issues/dizziness Review of Systems ROS Statement: Those systems with pertinent positive or pertinent negative responses have been documented in the HPI. ROS Other: All systems not noted in ROS Statement are negative. Past Medical History Past Medical History: Asthma, Heart Failure, COPD, Diabetes Mellitus, Fibromyalgia, GERD/Reflux, GI Bleed, Hypertension, Liver Disease, Osteoarthritis (OA), Pneumonia, Seizure Disorder, Skin Disorder Additional Past Medical History / Comment(s): Bronchitis, gestational diabetes, seizures with last one 01/2024, sickle cell trait, liver cirrhosis, anemia, chrons, IBS, ulcerative colitis, lowr GI bleed, hemorrhoids, constipation, psoriasis, migraines, chronic low back and cervical pain, scoliosis, arhtritis in multiple joints, gout bilateral feet, History of Any Multi-Drug Resistant Organisms: None Reported Past Surgical History: Cholecystectomy, Orthopedic Surgery Additional Past Surgical History / Comment(s): L oophorectomy d/t cyst, D&C, colonoscopy, L carpal tunnel release, Past Anesthesia/Blood Transfusion Reactions: Motion Sickness, Postoperative Nausea & Vomiting (PONV) Past Psychological History: Anxiety, Bipolar, Depression, Schizophrenia Smoking Status: Former smoker Past Alcohol Use History: None Reported Past Drug Use History: Cocaine - Past Family History Mother History Unknown: Yes Family Medical History: Cancer Additional Family Medical History / Comment(s): Mother had breast cancer and metnal illness She is living. Father Family Medical History: Cancer Additional Family Medical History / Comment(s): Father is . He had agent orange exposure. He had liver cancer, bowel to brain cancer. General Exam - General Exam Comments Initial Comments: Is a well-developed well-nourished awake alert oriented x 4 female with a Robin Coma Scale of 15 Limitations: no limitations General appearance: alert, in no apparent distress Head exam: Present: atraumatic, normocephalic, normal inspection Eye exam: Present: normal appearance, PERRL, EOMI. Absent: scleral icterus, conjunctival injection, periorbital swelling ENT exam: Present: normal exam, mucous membranes moist Neck exam: Present: normal inspection, full ROM, other. Absent: tenderness, meningismus, lymphadenopathy Respiratory exam: Present: normal lung sounds bilaterally, chest wall tenderness (No stridor JVD or bruits palpation on the anterior chest wall at the costochondral and costal sternal margins no step-off no crepitation no bruising). Absent: respiratory distress, wheezes, rales, rhonchi, stridor Cardiovascular Exam: Present: regular rate, normal rhythm, normal heart sounds. Absent: systolic murmur, diastolic murmur, rubs, gallop, clicks GI/Abdominal exam: Present: soft, normal bowel sounds. Absent: distended, tenderness, guarding, rebound, rigid Extremities exam: Present: normal inspection, full ROM, tenderness (Palpation on the medial knee and medial left ankles no deformity no step-off no crepitation), normal capillary refill. Absent: pedal edema, joint swelling, calf tenderness Back exam: Present: normal inspection Neurological exam: Present: alert, oriented X3, CN II-XII intact Psychiatric exam: Present: normal affect, normal mood Skin exam: Present: warm, dry, intact, normal color. Absent: rash Course Vital Signs 02/26/24 02/26/24 02/27/24 20:16 23:26 01:18 Temperature 98.7 F 98.4 F Pulse Rate 67 56 L 59 L Respiratory 18 20 18 Rate Blood Pressure 132/94 113/56 121/57 O2 Sat by Pulse 97 97 99 Oximetry 02/27/24 05:03 Temperature 97.6 F Pulse Rate 53 L Respiratory 18 Rate Blood Pressure 145/77 O2 Sat by Pulse 98 Oximetry - Reevaluation(s) Reevaluation #1: 02/26/24 20:38 Patient's care will be endorsed to Dr. Reyes at our shift change Medical Decision Making - Medical Decision Making His care is endorsed to Dr. Reyes at our shift change was pt. sent in by a medical professional or institution (, PA, ARC WELDING MACHINE OPERATOR, urgent care, hospital, or custodial...) When possible be specific @ -[No] Did you speak to anyone other than the patient for history (EMS, parent, family, police, friend...)? What history was obtained from this source @ -[Asked personnel] Did you review nursing and triage notes (agree or disagree)? Why? @ -[I reviewed and agree with nursing and triage notes] Were old charts reviewed (outside hosp., previous admission, EMS record, old EKG, old radiological studies, urgent care reports/EKG's, custodial records)? Report findings @ -[No old charts were reviewed] Differential Diagnosis (chest pain, altered mental status, abdominal pain women, abdominal pain men, vaginal bleeding, weakness, fever, dyspnea, syncope, headache, dizziness, GI bleed, back pain, seizure, CVA, palpatations, mental health, musculoskeletal)? @ -[ChestPain,] EKG interpreted by me (3pts min.). @ -[KG interpreted by me sinus rhythm at 70 parable 162 QRS duration 158 QT/QTc 444/465 right bundle branch block left anterior fascicular block noted voltage criteria for LVH noted.] X-rays interpreted by me (1pt min.). @ -[None done] CT interpreted by me (1pt min.). @ -[None done] U/S interpreted by me (1pt. min.). @ -[None done] What testing was considered but not performed or refused? (CT, X-rays, U/S, labs)? Why? @ -[None] What meds were considered but not given or refused? Why? @ -[None] Did you discuss the management of the patient with other professionals (professionals i.e. , PA, ARC WELDING MACHINE OPERATOR, lab, RT, psych nurse, social welfare research worker, coating manager, teacher, bank secrecy act officer, casework supervisor)? Give summary @ -[No] Was smoking cessation discussed for >3mins.? @ -[No] Was critical care preformed (if so, how long)? @ -[No] Were there social determinants of health that impacted care today? How? (Homelessness, low income, unemployed, alcoholism, drug addiction, transportation, low edu. Level, literacy, decrease access to med. care, retirement, rehab)? @ -[No] Was there de-escalation of care discussed even if they declined (Discuss DNR or withdrawal of care, Hospice)? DNR status @ -[No] What co-morbidities impacted this encounter? (DM, HTN, Smoking, COPD, CAD, Cancer, CVA, ARF, Chemo, Hep., AIDS, mental health diagnosis, sleep apnea, morbid obesity)? @ -[Last COPD, diabetes, heart failure, seizure disorder] Was patient admitted / discharged? Hospital course, mention meds given and rou te, prescriptions, significant lab abnormalities, going to OR and other pertinent info. @ -[hospital course] Undiagnosed new problem with uncertain prognosis? @ -[No] Drug Therapy requiring intensive monitoring for toxicity (Heparin, Nitro, Insulin, Cardizem)? @ -[No] Were any procedures done? @ -[No] Diagnosis/symptom? @ -[default] Acute, or Chronic, or Acute on Chronic? @ -[default] Uncomplicated (without systemic symptoms) or Complicated (systemic symptoms)? @ -[default] Side effects of treatment? @ -[No] Exacerbation, Progression, or Severe Exacerbation? @ -[No] Poses a threat to life or bodily function? How? (Chest pain, [place], [place], pneumonia, PE, COPD, DKA, ARF, appy, cholecystitis, CVA, Diverticulitis, Homicidal, Suicidal, threat to staff... and all critical care pts) @ -[No] - Lab Data Result diagrams: 02/27/24 03:22 02/27/24 03:22 Lab Results 02/26/24 02/26/24 02/26/24 Range/Units 20:33 20:33 20:33 WBC 15.9 H (3.8-10.6) k/uL RBC 4.41 (3.80-5.40) m/uL Hgb 12.6 (11.4-16.0) gm/dL Hct 39.5 (34.0-46.0) % MCV 89.4 (80.0-100.0) fL MCH 28.5 (25.0-35.0) pg MCHC 31.9 (31.0-37.0) g/dL RDW 14.4 (11.5-15.5) % Plt Count 211 (150-450) k/uL MPV 7.2 Neutrophils % 72 % Lymphocytes % 19 % Monocytes % 4 % Eosinophils % 4 % Basophils % 0 % Neutrophils # 11.3 H (1.3-7.7) k/uL Lymphocytes # 3.1 (1.0-4.8) k/uL Monocytes # 0.6 (0-1.0) k/uL Eosinophils # 0.7 (0-0.7) k/uL Basophils # 0.1 (0-0.2) k/uL Hypochromasia Moderate PT 9.6 L (10.0-12.5) sec INR 0.8 (<1.2) APTT 22.9 (22.0-30.0) sec D-Dimer 0.41 (<0.60) mg/L FEU Sodium 135 L (137-145) mmol/L Potassium 4.7 (3.5-5.1) mmol/L Chloride 107 (98-107) mmol/L Carbon Dioxide 21 L (22-30) mmol/L Anion Gap 7 mmol/L BUN 17 (7-17) mg/dL Creatinine 0.57 (0.52-1.04) mg/dL Est GFR (CKD-EPI)AfAm >90 (>60 ml/min/1.73 sqM) Est GFR (CKD-EPI)NonAf >90 (>60 ml/min/1.73 sqM) Glucose 281 H (74-99) mg/dL Calcium 8.8 (8.4-10.2) mg/dL Magnesium 1.7 (1.6-2.3) mg/dL Total Bilirubin 0.6 (0.2-1.3) mg/dL AST 40 H (14-36) U/L ALT 27 (4-34) U/L Alkaline Phosphatase 88 (38-126) U/L Troponin I (0.000-0.034) ng/mL NT-Pro-B Natriuret Pep 101 pg/mL Total Protein 7.1 (6.3-8.2) g/dL Albumin 3.8 (3.5-5.0) g/dL Lipase 202 (23-300) U/L 02/26/24 Range/Units 20:33 WBC (3.8-10.6) k/uL RBC (3.80-5.40) m/uL Hgb (11.4-16.0) gm/dL Hct (34.0-46.0) % MCV (80.0-100.0) fL MCH (25.0-35.0) pg MCHC (31.0-37.0) g/dL RDW (11.5-15.5) % Plt Count (150-450) k/uL MPV Neutrophils % % Lymphocytes % % Monocytes % % Eosinophils % % Basophils % % Neutrophils # (1.3-7.7) k/uL Lymphocytes # (1.0-4.8) k/uL Monocytes # (0-1.0) k/uL Eosinophils # (0-0.7) k/uL Basophils # (0-0.2) k/uL Hypochromasia PT (10.0-12.5) sec INR (<1.2) APTT (22.0-30.0) sec D-Dimer (<0.60) mg/L FEU Sodium (137-145) mmol/L Potassium (3.5-5.1) mmol/L Chloride (98-107) mmol/L Carbon Dioxide (22-30) mmol/L Anion Gap mmol/L BUN (7-17) mg/dL Creatinine (0.52-1.04) mg/dL Est GFR (CKD-EPI)AfAm (>60 ml/min/1.73 sqM) Est GFR (CKD-EPI)NonAf (>60 ml/min/1.73 sqM) Glucose (74-99) mg/dL Calcium (8.4-10.2) mg/dL Magnesium (1.6-2.3) mg/dL Total Bilirubin (0.2-1.3) mg/dL AST (14-36) U/L ALT (4-34) U/L Alkaline Phosphatase (38-126) U/L Troponin I <0.012 (0.000-0.034) ng/mL NT-Pro-B Natriuret Pep pg/mL Total Protein (6.3-8.2) g/dL Albumin (3.5-5.0) g/dL Lipase (23-300) U/L Disposition Clinical Impression: Chest pain Disposition: ADMITTED IP TO THIS HOSP Condition: Stable
[2024-02-26 21:00] LABS: Basophils # (A) 0.1 k/uL (0-0.2); Basophils % (A) 0 %; Eosinophils # (A) 0.7 k/uL (0-0.7); Eosinophils % (A) 4 %; HCT 39.5 % (34.0-46.0); HGB 12.6 gm/dL (11.4-16.0); Hypochromasia Moderate; Lymphocytes # (A) 3.1 k/uL (1.0-4.8); Lymphocytes % (A) 19 %; MCH 28.5 pg (25.0-35.0); MCHC 31.9 g/dL (31.0-37.0); MCV 89.4 fL (80.0-100.0); Mean Platelet Volume 7.2; Monocytes # (A) 0.6 k/uL (0-1.0); Monocytes % (A) 4 %; Neutrophils # (A) 11.3 k/uL (1.3-7.7); Neutrophils % (A) 72 %; Platelet Count 211 k/uL (150-450); RBC 4.41 m/uL (3.80-5.40); RDW 14.4 % (11.5-15.5); WBC 15.9 k/uL (3.8-10.6)
[2024-02-26 21:13] LABS: ALT 27 U/L (4-34); African American GFR (CKD) >90 (>60 ml/min/1.73 sqM); Anion Gap 7 mmol/L; Blood Urea Nitrogen 17 mg/dL (7-17); Calcium 8.8 mg/dL (8.4-10.2); Carbon Dioxide 21 mmol/L (22-30); Chloride 107 mmol/L (98-107); Glucose 281 mg/dL (74-99); Lipase 202 U/L (23-300); Non-African American GFR(CKD) >90 (>60 ml/min/1.73 sqM); Sodium 135 mmol/L (137-145)
[2024-02-26 21:22] LABS: AST 40 U/L (14-36); Albumin 3.8 g/dL (3.5-5.0); Alkaline Phosphatase 88 U/L (38-126); Magnesium 1.7 mg/dL (1.6-2.3); NT-Pro-B-Type Natriuretic Pept 101 pg/mL; Potassium 4.7 mmol/L (3.5-5.1); Total Bilirubin 0.6 mg/dL (0.2-1.3); Total Protein 7.1 g/dL (6.3-8.2)
[2024-02-26 21:25] LABS: INR 0.8 (<1.2); Partial Thromboplastin Time 22.9 sec (22.0-30.0); Prothrombin Time 9.6 sec (10.0-12.5)
--- NOTE | 2024-02-26 21:46 | XR ---
EXAMINATION TYPE: XR knee complete LT DATE OF EXAM: 02/26/2024 9:12 PM CLINICAL INDICATION:Female, 43 years old with history of fall; [facility] COMPARISON: None. TECHNIQUE: XR knee complete LT; examined in Frontal, lateral and oblique projections. FINDINGS: No evidence of any acute osseous pathology, soft tissue swelling, or joint effusion is no harvey. IMPRESSION: 1. No acute osseous pathology. 2. No osteoarthritic changes.
--- NOTE | 2024-02-26 21:47 | XR ---
EXAMINATION TYPE: XR chest 2V DATE OF EXAM: 02/26/2024 9:14 PM CLINICAL INDICATION:Female, 43 years old with history of Chest Pain; [facility] COMPARISON: Chest radiographs 02/04/2020 TECHNIQUE: XR chest 2V Frontal and lateral views of the chest. FINDINGS: Lungs/Pleura: There is no evidence of pleural effusion, focal consolidation, or pneumothorax. Pulmonary vascularity: Unremarkable. Heart/mediastinum: Cardiomediastinal silhouette is unremarkable. Musculoskeletal: No acute osseous pathology. Other findings: None Lines/Tubes: IMPRESSION: No acute cardiopulmonary disease/process.
--- NOTE | 2024-02-26 22:36 | XR ---
EXAMINATION TYPE: XR ankle complete LT DATE OF EXAM: 02/26/2024 9:12 PM CLINICAL INDICATION:Female, 43 years old with history of fall; H COMPARISON: None TECHNIQUE: XR ankle complete LT; ankle is imaged in frontal, lateral and oblique projections. FINDINGS: There is no evidence of acute osseous pathology. The joint spaces are well-preserved without evidenc e of subluxation or dislocation. Kager's fat pad is intact. No radiopaque foreign bodies are identifi ed. IMPRESSION: 1. No evidence of acute fracture.
[2024-02-27] MEDS ORDERED: NITROGLYCERIN SL TABS 0.4 MG TAB SUBLINGUAL PRN (00:11)
[2024-02-27] MEDS ORDERED: MELATONIN 5 MG TABLET PO PRN (02:05)
--- NOTE | 2024-02-27 02:12 | P.HPIM ---
History of Present Illness H&P Date: 02/27/24 Chief Complaint: Chest pain and SOB Patient is a 43-year-old female with PMH of COPD (not on home oxygen), seizure disorder, bipolar disorder, ADHD, NIDDM, and schizophrenia presented to the ER with chief complaint of chest pain. Patient slipped and fell on the toilet seat while getting out of the shower at around 12:30 PM on 02/26/2024. Patient reports falling forward and hitting her middle chest as well as hurting her left ankle and left knee. Patient denies loss of consciousness, lightheadedness, dizziness prior to the fall. Denies any injury to head. Patient was able to get up and ambulate and call EMS. Patient reports onset of substernal chest pain shortly after she had a fall. Patient described the pain as if "elephant is sitting on her chest", progressively worsening, 8 of 10, nonradiating, constant, worse with exertion and better with rest. Patient also endorsed mild shortness of breath, diaphoresis and lightheadedness. At the time of interview, patient is still complaining of 6 substernal chest pain, 5 out of 10, intermittent but denies shortness of breath and lightheadedness. Patient denies fever, chills, cough, nausea or vomiting. No recent upper respiratory tract infection. Patient reports that her left ankle and left knee pain has subsided. Denies any numbness, tingling, weakness and swelling in upper or lower extremities. Patient denies recently using illicit drugs such as cocaine. Patient last used cocaine 3 weeks ago. Patient reports that she was hospitalized at [facility] for chest pain on 02/05/2024. Cardiology was consulted at that time and she was recommended to do outpatient follow-up within 1 week for stress test and echocardiogram. Patient cites social economic challenges as a reason why she did not follow-up. Patient had echocardiogram on 12/18/2019 which was overall unremarkable with LVEF between 55 to 60%. EKG done in the ER today shows right bundle branch block. Sinus rhythm with heart rate of 70 bpm. UT interval 162 ms, not prolonged. QRS duration 158 ms, prolonged. QTc 465 ms, prolonged. No STT wave changes noted. Chest x-ray shows no evidence of pleural effusion, focal consolidation or pneumothorax. Left ankle x-ray shows no evidence of acute fracture. Left knee x-ray shows no acute osseous pathology and osteoarthritic changes. Vitals: Tmax 98.7 F, heart rate 59 bpm, respiratory rate 18, BP 121/57, O2 saturation 99% on room air. Review of systems: Pertinent positives and negatives as discussed in HPI, a complete review of systems was performed and all other systems are negative. Social history: Tobacco: Quit smoking 6 months ago; previously 2 packs/day x 15 years Alcohol: None Recreational drugs: Cocaine; last used 3 weeks ago Travel: None Occupation: Unemployed Family History: Mother and sister has coronary artery disease Physical examination: Vital signs reviewed General: non toxic, no distress, appears older than stated age, morbidly obese Derm: no unusual rashes/lesions, warm Head: atraumatic, normocephalic, symmetric Eyes: EOMI, no lid lag, anicteric sclera, pupils equal round reactive to light Neck: No cervical lymphadenopathy, trachea midline, supple Mouth: no lip lesion, mucus membranes moist Cardiovascular: S1S2 reg, no murmur, tenderness at the left sternal border, positive dorsalis pedis pulse bilateral, no edema Lungs: CTA bilateral, no rhonchi, no rales, no accessory muscle use Abdominal: soft, nontender to palpation, no guarding Ext: muscle strength 5 out of 5 in all 4 extremities grossly, no gross muscle atrophy, no contractures, Neuro: CN II-XI grossly intact, no gross focal neuro deficits Psych: Alert, oriented, appropriate affect Assessment/Plan: 43-year-old female with PMH of COPD (not on home oxygen), seizure disorder, bipolar disorder, ADHD, type 2 diabetes melitis, and schizophrenia presented to the ER with chief complaint of chest pain. #Atypical chest pain, rule out ACS versus musculoskeletal pain Heart score: 3 points (moderate risk for ACS) Continue with aspirin 325 mg p.o. 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 daily Ordered metoprolol 25 mg p.o. daily Continue with oxygen therapy 2 L via nasal cannula Continue to trend troponin I (Trop I <0.012) #Leukocytosis likely reactive to stress, no signs of active infection at this time WBC 15.9 with neutrophil count 11.3 (patient's baseline WBC count has been between 14-19) Continue monitor CBC with differentials #[id number] diabetes mellitus Glucose 281 HbA1c 7.1 on 02/05/2024 Ordered sliding scale short acting insulin #Hyponatremia Sodium 135, potassium 4.7, chloride 107, bicarb 21 Ordered IV normal saline 30 cc/h If hyponatremia does not improve with IV fluids, consider SIADH as differential secondary to stressor, consider discontinuing IV fluids #Transaminitis, unknown etiology AST 40, ALT 27, ALP 88 Continue to monitor CMP #Chronic conditions: Hyperlipidemia: Resume Lipitor 40 mg p.o. at bedtime Hypertension: Resume lisinopril 2.5 mg p.o. daily DVT prophylaxis: Lovenox 40 mg subcu daily The patient is admitted with an anticipated greater than 2 midnight stay for evaluation of chest pain CODE STATUS: Full code Discussed with: Patient Anticipated discharge place: [] Past Medical History Past Medical History: Asthma, Heart Failure, COPD, Diabetes Mellitus, Fibr omyalgia, GERD/Reflux, GI Bleed, Hypertension, Liver Disease, Osteoarthritis (OA), Pneumonia, Seizure Disorder, Skin Disorder Additional Past Medical History / Comment(s): Bronchitis, gestational diabetes, seizures with last one 01/2024, sickle cell trait, liver cirrhosis, anemia, chrons, IBS, ulcerative colitis, lowr GI bleed, hemorrhoids, constipation, psoriasis, migraines, chronic low back and cervical pain, scoliosis, arhtritis in multiple joints, gout bilateral feet, History of Any Multi-Drug Resistant Organisms: None Reported Past Surgical History: Cholecystectomy, Orthopedic Surgery Additional Past Surgical History / Comment(s): L oophorectomy d/t cyst, D&C, colonoscopy, L carpal tunnel release, Past Anesthesia/Blood Transfusion Reactions: Motion Sickness, Postoperative Nausea & Vomiting (PONV) Past Psychological History: Anxiety, Bipolar, Depression, Schizophrenia Smoking Status: Former smoker Past Alcohol Use History: None Reported Past Drug Use History: Cocaine - Past Family History Mother History Unknown: Yes Family Medical History: Cancer Additional Family Medical History / Comment(s): Mother had breast cancer and metnal illness She is living. Father Family Medical History: Cancer Additional Family Medical History / Comment(s): Father is . He had agent orange exposure. He had liver cancer, bowel to brain cancer. Medications and Allergies Home Medications Medication Instructions Recorded Confirmed Type Aspirin 81 mg PO DAILY #90 tab 02/05/24 Rx Atorvastatin [Lipitor] 40 mg PO HS #90 tab 02/05/24 Rx Empagliflozin [Jardiance] 10 mg PO DAILY 02/05/24 02/05/24 History Haloperidol Decanoate [Haldol D] 50 mg IM Q28D 02/05/24 02/05/24 History Isosorbide Mononitrate ER [Imdur] 15 mg PO DAILY #90 tab 02/05/24 Rx Melatonin 5 mg PO HS PRN 02/05/24 02/05/24 History Naltrexone HCl [Revia] 50 mg PO DAILY 02/05/24 02/05/24 History fluvoxaMINE MALEATE [Luvox CR] 150 mg PO DAILY 02/05/24 02/05/24 History lisinopriL [Zestril] 2.5 mg PO DAILY #90 tab 02/05/24 Rx metFORMIN HCL 500 mg PO DIRECTED 02/05/24 02/05/24 History metFORMIN HCL ER [Glucophage XR] 500 mg PO BID #180 tab 02/05/24 Rx polyethylene glycoL 3350 [Miralax] 17 gm PO DAILY PRN 02/05/24 02/05/24 History Allergies Allergy/AdvReac Type Severity Reaction Status Date / Time Iodinated Contrast Media Allergy Anaphylaxis Verified 02/26/24 20:21 [Iodinated Contrast Media - IV Dye] lacosamide [From Vimpat] Allergy Anaphylaxis Verified 02/26/24 20:21 peanut Allergy Anaphylaxis Verified 02/26/24 20:21 Penicillins Allergy Anaphylaxis Verified 02/26/24 20:21 shellfish derived Allergy swelling Verified 02/26/24 20:21 all over body cephalexin monohydrate AdvReac Nausea & Verified 02/26/24 20:21 [From Keflex] Vomiting & Diarrhea trazodone AdvReac bp Verified 02/26/24 20:21 issues/dizziness Physical Exam Vitals: Vital Signs Temp Pulse Resp BP Pulse Ox 02/26/24 23:26 98.4 F 56 L 20 113/56 97 02/26/24 20:16 98.7 F 67 18 132/94 97 Intake and Output 02/26/24 02/26/24 02/27/24 14:59 22:59 06:59 Other: Weight 145.15 kg Results CBC & Chem 7: 02/26/24 20:33 02/26/24 20:33 Labs: Abnormal Lab Results - Last 24 Hours (Table) 02/26/24 02/26/24 02/26/24 Range/Units 20:33 20:33 20:33 WBC 15.9 H (3.8-10.6) k/uL Neutrophils # 11.3 H (1.3-7.7) k/uL PT 9.6 L (10.0-12.5) sec Sodium 135 L (137-145) mmol/L Carbon Dioxide 21 L (22-30) mmol/L Glucose 281 H (74-99) mg/dL AST 40 H (14-36) U/L
[2024-02-27 03:55] LABS: ALT 26 U/L (4-34); African American GFR (CKD) >90 (>60 ml/min/1.73 sqM); Albumin 3.7 g/dL (3.5-5.0); Albumin/Globulin Ratio 1.2; Anion Gap 8 mmol/L; Blood Urea Nitrogen 15 mg/dL (7-17); Calcium 8.6 mg/dL (8.4-10.2); Carbon Dioxide 20 mmol/L (22-30); Chloride 109 mmol/L (98-107); Globulin 3.1 g/dL; Glucose 188 mg/dL (74-99); Non-African American GFR(CKD) >90 (>60 ml/min/1.73 sqM); Sodium 137 mmol/L (137-145); Total Bilirubin 0.4 mg/dL (0.2-1.3); Total Protein 6.8 g/dL (6.3-8.2)
[2024-02-27 03:58] LABS: AST 28 U/L (14-36); Alkaline Phosphatase 84 U/L (38-126); Potassium 4.3 mmol/L (3.5-5.1)
[2024-02-27 04:43] LABS: HCT 40.1 % (34.0-46.0); HGB 12.5 gm/dL (11.4-16.0); Hypochromasia Moderate; MCH 28.3 pg (25.0-35.0); MCHC 31.2 g/dL (31.0-37.0); MCV 90.8 fL (80.0-100.0); Mean Platelet Volume 8.2; Platelet Count 196 k/uL (150-450); RBC 4.42 m/uL (3.80-5.40); RDW 14.7 % (11.5-15.5); WBC 13.7 k/uL (3.8-10.6)
[2024-02-27] MEDS: SODIUM CHLORIDE 0.9% 500 ML 500 ML IV SCH (05:02)
[2024-02-27 07:38] LABS: Glucose,Whole Blood 175 mg/dL (70-110)
[2024-02-27 07:59] VITALS: BP 117/70; PULSE 65; RESP 15; TEMP 97.8
[2024-02-27] MEDS: ENOXAPARIN 40 MG/0.4 ML SYRINGE SQ SCH (08:06)
[2024-02-27] MEDS: METOPROLOL TARTRATE 25 MG TAB PO SCH (08:07)
[2024-02-27] MEDS: INSULIN ASPART (NovoLOG) 100 UNIT/ML VIAL SQ SCH (08:07)
[2024-02-27 12:10] LABS: Glucose,Whole Blood 202 mg/dL (70-110)
--- NOTE | 2024-02-27 12:44 | P.CRDCN ---
History of Present Illness Consult date: 02/27/24 History of present illness: The patient is a pleasant 43-year-old female patient with a past medical history significant for overweight and diabetes and hypertension and dyslipidemia and history of bipolar disorder was admitted to the hospital with chest discomfort. She was in her usual state of health till yesterday when she fell at home with no loss of consciousness and no change in mental status and landed on her chest and has been experiencing discomfort in the chest till yesterday but now the chest discomfort has resolved completely according to her with no associated symptoms of shortness of breath or dizziness or lightheadedness or any feeling of heart racing or fluttering or presyncope or syncope which she underwent an EKG showed sinus mechanism with wide QRS and no significant changes compared to prior EKG. The troponin came in to be unremarkable with the chest x-ray did not show any acute abnormalities. She remains asymptomatic and hemodynamically stable and had no more chest pain. The patient would like to go home. I advised the patient to have an echocardiogram done but the patient would like to go home and have the echo done as an outpatient. Examination is remarkable for stable vital signs with regular rate and rhythm and clear breathing sounds bilaterally and no edema was noted in the lower extremities Assessment Status post fall Noncardiac chest pain Multiple comorbid conditions including diabetes and hypertension and dysli pidemia Plan Acute coronary event was ruled out The patient would like to go home and have an echo done as an outpatient Past Medical History Past Medical History: Asthma, Heart Failure, COPD, Diabetes Mellitus, Fibromyalgia, GERD/Reflux, GI Bleed, Hypertension, Liver Disease, Osteoarthritis (OA), Pneumonia, Seizure Disorder, Skin Disorder Additional Past Medical History / Comment(s): Bronchitis, gestational diabetes, seizures with last one 01/2024, sickle cell trait, liver cirrhosis, anemia, chrons, IBS, ulcerative colitis, lowr GI bleed, hemorrhoids, constipation, psoriasis, migraines, chronic low back and cervical pain, scoliosis, arhtritis in multiple joints, gout bilateral feet, History of Any Multi-Drug Resistant Organisms: None Reported Past Surgical History: Cholecystectomy, Orthopedic Surgery Additional Past Surgical History / Comment(s): L oophorectomy d/t cyst, D&C, colonoscopy, L carpal tunnel release, Past Anesthesia/Blood Transfusion Reactions: Motion Sickness, Postoperative Nausea & Vomiting (PONV) Past Psychological History: Anxiety, Bipolar, Depression, Schizophrenia Smoking Status: Former smoker Past Alcohol Use History: None Reported Past Drug Use History: Cocaine - Past Family History Mother History Unknown: Yes Family Medical History: Cancer Additional Family Medical History / Comment(s): Mother had breast cancer and metnal illness She is living. Father Family Medical History: Cancer Additional Family Medical History / Comment(s): Father is . He had agent orange exposure. He had liver cancer, bowel to brain cancer. Medications and Allergies Home Medications Medication Instructions Recorded Confirmed Type Empagliflozin [Jardiance] 10 mg PO DAILY 02/05/24 02/27/24 History Haloperidol Decanoate [Haldol D] 50 mg IM Q28D 02/05/24 02/27/24 History Melatonin 5 mg PO HS PRN 02/05/24 02/27/24 History Naltrexone HCl [Revia] 50 mg PO DAILY 02/05/24 02/27/24 History fluvoxaMINE MALEATE [Luvox CR] 150 mg PO DAILY 02/05/24 02/27/24 History metFORMIN HCL 500 mg PO DIRECTED 02/05/24 02/27/24 History polyethylene glycoL 3350 [Miralax] 17 gm PO DAILY PRN 02/05/24 02/27/24 History Aspirin 81 mg PO DIRECTED 02/27/24 02/27/24 History Atorvastatin Calcium [Lipitor] 40 mg PO DIRECTED 02/27/24 02/27/24 History Isosorbide Mononitrate ER [Imdur] 15 mg PO DIRECTED 02/27/24 02/27/24 History lisinopriL [Zestril] 2.5 mg PO DIRECTED 02/27/24 02/27/24 History metFORMIN HCL ER [Glucophage XR] 500 mg PO DIRECTED 02/27/24 02/27/24 History Allergies Allergy/AdvReac Type Severity Reaction Status Date / Time Iodinated Contrast Media Allergy Anaphylaxis Verified 02/27/24 11:47 [Iodinated Contrast Media - IV Dye] lacosamide [From Vimpat] Allergy Anaphylaxis Verified 02/27/24 11:47 peanut Allergy Anaphylaxis Verified 02/27/24 11:47 Penicillins Allergy Anaphylaxis Verified 02/27/24 11:47 shellfish derived Allergy swelling Verified 02/27/24 11:47 all over body cephalexin monohydrate AdvReac Nausea & Verified 02/27/24 11:47 [From Keflex] Vomiting & Diarrhea trazodone AdvReac bp Verified 02/27/24 11:47 issues/dizziness Physical Exam Vitals: Vital Signs Temp Pulse Pulse Resp BP BP BP 02/27/24 07:00 97.8 F 65 15 117/70 02/27/24 05:39 97.6 F 55 L 16 146/74 02/27/24 05:03 97.6 F 53 L 18 145/77 02/27/24 01:18 59 L 18 121/57 02/26/24 23:26 98.4 F 56 L 20 113/56 02/26/24 20:16 98.7 F 67 18 132/94 Pulse Ox 02/27/24 07:00 99 02/27/24 05:39 99 02/27/24 05:03 98 02/27/24 01:18 99 02/26/24 23:26 97 02/26/24 20:16 97 Intake and Output 02/26/24 02/27/24 02/27/24 22:59 06:59 14:59 Other: # Voids 1 Weight 145.15 kg 145.15 kg Results 02/27/24 03:22 02/27/24 03:22 Cardiac Enzymes 02/26/24 02/26/24 02/27/24 Range/Units 20:33 20:33 00:21 AST 40 H (14-36) U/L Troponin I <0.012 <0.012 (0.000-0.034) ng/mL 02/27/24 02/27/24 Range/Units 03:22 03:22 AST 28 (14-36) U/L Troponin I <0.012 (0.000-0.034) ng/mL Coagulation 02/26/24 Range/Units 20:33 PT 9.6 L (10.0-12.5) sec APTT 22.9 (22.0-30.0) sec CBC 02/26/24 02/27/24 Range/Units 20:33 03:22 WBC 15.9 H 13.7 H (3.8-10.6) k/uL RBC 4.41 4.42 (3.80-5.40) m/uL Hgb 12.6 12.5 (11.4-16.0) gm/dL Hct 39.5 40.1 (34.0-46.0) % Plt Count 211 196 (150-450) k/uL Comprehensive Metabolic Panel 02/26/24 02/27/24 Range/Units 20:33 03:22 Sodium 135 L 137 (137-145) mmol/L Potassium 4.7 4.3 (3.5-5.1) mmol/L Chloride 107 109 H (98-107) mmol/L Carbon Dioxide 21 L 20 L (22-30) mmol/L BUN 17 15 (7-17) mg/dL Creatinine 0.57 0.48 L (0.52-1.04) mg/dL Glucose 281 H 188 H (74-99) mg/dL Calcium 8.8 8.6 (8.4-10.2) mg/dL AST 40 H 28 (14-36) U/L ALT 27 26 (4-34) U/L Alkaline Phosphatase 88 84 (38-126) U/L Total Protein 7.1 6.8 (6.3-8.2) g/dL Albumin 3.8 3.7 (3.5-5.0) g/dL Current Medications Generic Name Dose Route Start Last Admin Trade Name Freq PRN Reason Stop Dose Admin Aspirin 325 mg 02/28/24 09:00 Aspirin 325 Mg Tab PO DAILY [facility] Atorvastatin Calcium 40 mg 02/27/24 21:00 Atorvastatin 40 Mg Tab PO HS ZHANG Enoxaparin Sodium 40 mg 02/27/24 09:00 02/27/24 08:06 Enoxaparin 40 Mg/0.4 Ml Syringe SQ 40 mg DAILY ZHANG Administration Sodium Chloride 500 mls @ 30 mls/hr 02/27/24 02:15 02/27/24 05:02 Saline 0.9% IV 30 mls/hr .[id number] ZHANG Administration Insulin Aspart 0 unit 02/27/24 07:30 02/27/24 08:07 Insulin Aspart (Novolog) 100 Unit/Ml Vial SQ 2 unit ACHS ZHANG Administration Protocol Lisinopril 2.5 mg 02/27/24 09:00 02/27/24 08:07 Lisinopril 2.5 Mg Tab PO 2.5 mg DAILY ZHANG Administration Melatonin 5 mg 02/27/24 02:05 Melatonin 5 Mg Tablet PO HS PRN sleep Metoprolol Tartrate 25 mg 02/27/24 09:00 02/27/24 08:07 Metoprolol Tartrate 25 Mg Tab PO 25 mg DAILY ZHANG Administration Nitroglycerin 0.4 mg 02/27/24 00:11 Nitroglycerin Sl Tabs 0.4 Mg Tab SUBLINGUAL Q5M PRN Chest Pain Intake and Output 02/26/24 02/27/24 02/27/24 22:59 06:59 14:59 Other: # Voids 1 Weight 145.15 kg 145.15 kg 02/27/24 03:22 02/27/24 03:22
--- NOTE | 2024-02-27 13:57 | P.DS ---
Providers Date of admission: 02/27/24 00:11 Attending physician: Joe Head MD Consults: 02/27/24 00:11 Consult Physician Routine Consulting Provider: Javed Tran Consult Reason/Comments: chest pain Do you want consulting provider notified?: Yes Primary care physician: Stated None Hospital Course: Hospital course The patient is a pleasant 43-year-old female patient with a past medical history significant for overweight and diabetes and hypertension and dyslipidemia and history of bipolar disorder was admitted to the hospital with chest discomfort. She was in her usual state of health till yesterday when she fell at home with no loss of consciousness and no change in mental status and landed on her chest and has been experiencing discomfort in the chest till yesterday but now the chest discomfort has resolved. EKG showed sinus mechanism with wide QRS and no significant changes compared to prior EKG. The troponin came in to be unremarkable with the chest x-ray did not show any acute abnormalities. Patient was seen by cardiology who said patient can follow-up outpatient for echocardiogram. Physical exam General examination - Alert and Oriented 3 in NAD Heart - + S1S2 no murmurs Lungs - Clear to auscultation Abdomen soft NT ND +ve BS, morbidly obese Extremities - No edema [employer] - Moving all 4 extremities spontaneously Psych - Calm and cooperative Discharge diagnoses Atypical chest pain likely due to soreness from the fall Leukocytosis likely reactive Non-insulin dependent diabetes mellitus Hyperlipidemia Hypertension I spent a total of 33 minutes with this discharge Patient Condition at Discharge: Stable Plan - Discharge Summary Discharge Rx Participant: No New Discharge Prescriptions: Continue Naltrexone HCl [Revia] 50 mg PO DAILY Haloperidol Decanoate [Haldol D] 50 mg IM Q28D polyethylene glycoL 3350 [Miralax] 17 gm PO DAILY PRN PRN Reason: Constipation Melatonin 5 mg PO HS PRN PRN Reason: sleep Empagliflozin [Jardiance] 10 mg PO DAILY metFORMIN HCL ER [Glucophage XR] 500 mg PO DIRECTED Atorvastatin Calcium [Lipitor] 40 mg PO DIRECTED Aspirin 81 mg PO DIRECTED fluvoxaMINE MALEATE [Luvox CR] 150 mg PO DAILY lisinopriL [Zestril] 2.5 mg PO DIRECTED Isosorbide Mononitrate ER [Imdur] 15 mg PO DIRECTED Discontinued metFORMIN HCL 500 mg PO DIRECTED Discharge Medication List Empagliflozin [Jardiance] 10 mg PO DAILY 02/05/24 [History] Haloperidol Decanoate [Haldol D] 50 mg IM Q28D 02/05/24 [History] Melatonin 5 mg PO HS PRN 02/05/24 [History] Naltrexone HCl [Revia] 50 mg PO DAILY 02/05/24 [History] fluvoxaMINE MALEATE [Luvox CR] 150 mg PO DAILY 02/05/24 [History] polyethylene glycoL 3350 [Miralax] 17 gm PO DAILY PRN 02/05/24 [History] Aspirin 81 mg PO DIRECTED 02/27/24 [History] Atorvastatin Calcium [Lipitor] 40 mg PO DIRECTED 02/27/24 [History] Isosorbide Mononitrate ER [Imdur] 15 mg PO DIRECTED 02/27/24 [History] lisinopriL [Zestril] 2.5 mg PO DIRECTED 02/27/24 [History] metFORMIN HCL ER [Glucophage XR] 500 mg PO DIRECTED 02/27/24 [History] Follow up Appointment(s)/Referral(s): None,Stated [Primary Care Provider] - 1-2 days Javed Tran MD [STAFF PHYSICIAN] - 1 Week Discharge Disposition: HOME SELF-CARE
[2024-02-27] MEDS ORDERED: ATORVASTATIN 40 MG TAB PO SCH (21:00)
[2024-02-28] MEDS ORDERED: ASPIRIN 325 MG TAB PO SCH (09:00)
== END 2024-02-27 14:25 | disposition home or self-care (01) ==
LOC: EC 20:13 → 6NMEDSUR 02-27 00:11
PROVIDERS: ADMIT Internal Medicine; ATTEND Internal Medicine
DX: R07.2 Precordial pain (principal); R07.89 Other chest pain; J44.89 Other specified chronic obstructive pulmonary disease; I11.0 Hypertensive heart disease with heart failure; I50.9 Heart failure, unspecified; I45.2 Bifascicular block; E11.9 Type 2 diabetes mellitus without complications; E78.5 Hyperlipidemia, unspecified; E87.1 Hypo-osmolality and hyponatremia; R74.01 Elevation of levels of liver transaminase levels; D72.829 Elevated white blood cell count, unspecified; Z91.148 Patient's other noncompliance with medication regimen for other reason; G40.909 Epilepsy, unspecified, not intractable, without status epilepticus; T50.906A Underdosing of unspecified drugs, medicaments and biological substances, initial encounter; Z91.138 Patient's unintentional underdosing of medication regimen for other reason; F41.9 Anxiety disorder, unspecified; F31.9 Bipolar disorder, unspecified; F90.9 Attention-deficit hyperactivity disorder, unspecified type; E66.3 Overweight; Z68.43 Body mass index [BMI] 50.0-59.9, adult; R42 Dizziness and giddiness; M25.562 Pain in left knee; M25.572 Pain in left ankle and joints of left foot; R61 Generalized hyperhidrosis; F20.9 Schizophrenia, unspecified; W18.2XXA Fall in (into) shower or empty bathtub, initial encounter; Y92.002 Bathroom of unspecified non-institutional (private) residence as the place of occurrence of the external cause; Y93.E1 Activity, personal bathing and showering; Z79.84 Long term (current) use of oral hypoglycemic drugs; Z79.82 Long term (current) use of aspirin; Z88.8 Allergy status to other drugs, medicaments and biological substances; Z79.899 Other long term (current) drug therapy; Z88.1 Allergy status to other antibiotic agents; Z91.041 Radiographic dye allergy status; Z91.010 Allergy to peanuts; Z88.0 Allergy status to penicillin; Z91.013 Allergy to seafood; Z87.891 Personal history of nicotine dependence
CPT/HCPCS: 99285; 36415; 93005; 85379; 83880; 80053 ×2; 83690; 83735; 84484 ×2; 85025; 85027; 85610; 85730; 73562; 73610; 71046; G0378; J1650

== ENCOUNTER 2024-04-12 21:47 | Emergency (ER) | payer OTHER ==
[2024-04-12 22:39] VITALS: TEMP 98.3
[2024-04-13] MEDS: IBUPROFEN 400 MG TAB PO STA (00:43)
--- NOTE | 2024-04-13 00:59 | ED ---
URI HPI - General Chief Complaint: Upper Respiratory Infection Stated Complaint: Difficulty Breathing Time Seen by Provider: 04/12/24 22:48 Source: patient Mode of arrival: ambulatory Limitations: no limitations - History of Present Illness Initial Comments: 44-year-old female pres she enting with chief complaint of cough. She has had this cough for several days. Is getting some soreness in her chest and back from the coughing. No fever. She admits to some congestion. Some throat irritation with the coughing as well. She states that at times she coughs so hard that she vomits. Patient also does have a quarter sized burn on her chest from needing over her gas stove. She obtained this about 2 days ago. Her tetanus shot is up-to-date. - Related Data Home Medications Medication Instructions Recorded Confirmed Empagliflozin [Jardiance] 10 mg PO DAILY 02/05/24 02/27/24 Haloperidol Decanoate [Haldol D] 50 mg IM Q28D 02/05/24 02/27/24 Melatonin 5 mg PO HS PRN 02/05/24 02/27/24 Naltrexone HCl [Revia] 50 mg PO DAILY 02/05/24 02/27/24 fluvoxaMINE MALEATE [Luvox CR] 150 mg PO DAILY 02/05/24 02/27/24 polyethylene glycoL 3350 [Miralax] 17 gm PO DAILY PRN 02/05/24 02/27/24 Aspirin 81 mg PO DIRECTED 02/27/24 02/27/24 Atorvastatin Calcium [Lipitor] 40 mg PO DIRECTED 02/27/24 02/27/24 Isosorbide Mononitrate ER [Imdur] 15 mg PO DIRECTED 02/27/24 02/27/24 lisinopriL [Zestril] 2.5 mg PO DIRECTED 02/27/24 02/27/24 metFORMIN HCL ER [Glucophage XR] 500 mg PO DIRECTED 02/27/24 02/27/24 Previous Rx's Medication Instructions Recorded Benzonatate [Tessalon Perles] 100 mg PO TID PRN #9 capsule 04/13/24 Allergies Allergy/AdvReac Type Severity Reaction Status Date / Time Iodinated Contrast Media Allergy Anaphylaxis Verified 04/12/24 22:34 [Iodinated Contrast Media - IV Dye] lacosamide [From Vimpat] Allergy Anaphylaxis Verified 04/12/24 22:34 peanut Allergy Anaphylaxis Verified 04/12/24 22:34 Penicillins Allergy Anaphylaxis Verified 04/12/24 22:34 shellfish derived Allergy swelling Verified 04/12/24 22:34 all over body cephalexin monohydrate AdvReac Nausea & Verified 04/12/24 22:34 [From Keflex] Vomiting & Diarrhea trazodone AdvReac bp Verified 04/12/24 22:34 issues/dizziness Review of Systems ROS Statement: Those systems with pertinent positive or pertinent negative responses have been documented in the HPI. ROS Other: All systems not noted in ROS Statement are negative. Past Medical History Past Medical History: Asthma, Heart Failure, COPD, Diabetes Mellitus, Fibromyalgia, GERD/Reflux, GI Bleed, Hypertension, Liver Disease, Osteoarthritis (OA), Pneumonia, Seizure Disorder, Skin Disorder Additional Past Medical History / Comment(s): Bronchitis, gestational diabetes, seizures with last one 01/2024, sickle cell trait, liver cirrhosis, anemia, chrons, IBS, ulcerative colitis, lowr GI bleed, hemorrhoids, constipation, psoriasis, migraines, chronic low back and cervical pain, scoliosis, arhtritis in multiple joints, gout bilateral feet, History of Any Multi-Drug Resistant Organisms: None Reported Past Surgical History: Cholecystectomy, Orthopedic Surgery Additional Past Surgical History / Comment(s): L oophorectomy d/t cyst, D&C, colonoscopy, L carpal tunnel release, Past Anesthesia/Blood Transfusion Reactions: Motion Sickness, Postoperative Nausea & Vomiting (PONV) Past Psychological History: Anxiety, Bipolar, Depression, Schizophrenia Smoking Status: Former smoker Past Alcohol Use History: None Reported Past Drug Use History: Cocaine - Past Family History Mother History Unknown: Yes Family Medical History: Cancer Additional Family Medical History / Comment(s): Mother had breast cancer and metnal illness She is living. Father Family Medical History: Cancer Additional Family Medical History / Comment(s): Father is . He had agent orange exposure. He had liver cancer, bowel to brain cancer. General Exam Limitations: no limitations General appearance: alert, in no apparent distress Head exam: Present: atraumatic, normocephalic, normal inspection Eye exam: Present: normal appearance, EOMI Neck exam: Present: normal inspection. Absent: meningismus Respiratory exam: Present: normal lung sounds bilaterally. Absent: respiratory distress, wheezes, rales, rhonchi, stridor Cardiovascular Exam: Present: regular rate, normal rhythm, normal heart sounds. Absent: systolic murmur, diastolic murmur, rubs, gallop, clicks Neurological exam: Present: alert, oriented X3 Psychiatric exam: Present: normal affect, normal mood Skin exam: Present: warm, dry, other (Scabbed over second-degree burn the size of a quarter on the patient's chest) Course Vital Signs 04/12/24 04/13/24 22:34 02:27 Temperature 98.3 F Pulse Rate 71 65 Respiratory 19 18 Rate Blood Pressure 141/79 164/87 O2 Sat by Pulse 98 98 Oximetry Medical Decision Making - Medical Decision Making Was pt. sent in by a medical professional or institution (, PA, NUCLEAR CONTROL ROOM OPERATOR, urgent care, hospital, or assisted...) When possible be specific @ -No Did you speak to anyone other than the patient for history (EMS, parent, family, police, friend...)? What history was obtained from this source @ -No Did you review nursing and triage notes (agree or disagree)? Why? @ -I reviewed and agree with nursing and triage notes Were old charts reviewed (outside hosp., previous admission, EMS record, old EKG, old radiological studies, urgent care reports/EKG's, assisted records)? Report findings @ -No old charts were reviewed Differential Diagnosis (chest pain, altered mental status, abdominal pain women, abdominal pain men, vaginal bleeding, weakness, fever, dyspnea, syncope, headache, dizziness, GI bleed, back pain, seizure, CVA, palpatations, mental health, musculoskeletal)? @ -Differential includes influenza, RSV, COVID, pneumonia, bronchitis, this is not an all-inclusive list EKG interpreted by me (3pts min.). @ -As above X-rays interpreted by me (1pt min.). @ -Chest x-ray shows no acute cardiopulmonary disease or process CT interpreted by me (1pt min.). @ -None done U/S interpreted by me (1pt. min.). @ -None done What testing was considered but not performed or refused? (CT, X-rays, U/S, labs)? Why? @ -None What meds were considered but not given or refused? Why? @ -None Did you discuss the management of the patient with other professionals (professionals i.e. , PA, NUCLEAR CONTROL ROOM OPERATOR, lab, RT, psych nurse, web content & social media manager, termite control representative, teacher, [employer] officer, caseworker intake)? Give summary @ -No Was smoking cessation discussed for >3mins.? @ -No Was critical care preformed (if so, how long)? @ -No Were there social determinants of health that impacted care today? How? (Homelessness, low income, unemployed, alcoholism, drug addiction, transportation, low edu. Level, literacy, decrease access to med. care, [facility], rehab)? @ -No Was there de-escalation of care discussed even if they declined (Discuss DNR or withdrawal of care, Hospice)? DNR status @ -No What co-morbidities impacted this encounter? (DM, HTN, Smoking, COPD, CAD, Cancer, CVA, ARF, Chemo, Hep., AIDS, mental health diagnosis, sleep apnea, morbid obesity)? @ -None Was patient admitted / discharged? Hospital course, mention meds given and route, prescriptions, significant lab abnormalities, going to OR and other pertinent info. @ -44-year-old female presenting with chief complaint of cough. History and physical examination are conducted. Patient does have a small quarter sized secondary burn to the chest that she obtained 2 days ago while leaning over the stove. Heart and lungs are clear to auscultation. She is negative for influenza, RSV, COVID. Chest x-ray shows no acute process. Vital signs are stable. Patient is educated on today's findings and management at home. Provided with Tessalon Perles as well as bacitracin ointment for her burn. Apply twice daily. Discharged. Follow-up with PCP. Report back to ER with any new or worsening symptoms. Discussed return parameters and answered all questions. Patient conveyed verbal understanding and agreed to the plan. I discussed this case in detail with my attending Dr. castrejon Undiagnosed new problem with uncertain prognosis? @ -No Drug Therapy requiring intensive monitoring for toxicity (Heparin, Nitro, Insulin, Cardizem)? @ -No Were any procedures done? @ -No Diagnosis/symptom? @ -URI, burn Acute, or Chronic, or Acute on Chronic? @ -Acute Uncomplicated (without systemic symptoms) or Complicated (systemic symptoms)? @ -Uncomplicated Side effects of treatment? @ -No Exacerbation, Progression, or Severe Exacerbation? @ -No Poses a threat to life or bodily function? How? (Chest pain, [place], [place], pneumonia, PE, COPD, DKA, ARF, appy, cholecystitis, CVA, Diverticulitis, Homicidal, Suicidal, threat to staff... and all critical care pts) @ -Unlikely - Lab Data Lab Results 04/12/24 Range/Units 23:53 Influenza Type A (PCR) Not Detected (Not Detectd) Influenza Type B (PCR) Not Detected (Not Detectd) RSV (PCR) Not Detected (Not Detectd) SARS-CoV-2 (PCR) Not Detected (Not Detectd) Disposition Clinical Impression: Upper respiratory tract infection Disposition: HOME SELF-CARE Condition: Good Instructions (If sedation given, give patient instructions): Upper Respiratory Infection (ED) Additional Instructions: Follow-up with PCP. Report back to ER with any new or worsening symptoms. Take medication as prescribed. Apply bacitracin ointment to the burn 2 times daily. Monitor for signs of infection, including but not limited to redness, swelling, warmth, tenderness, discharge. Prescriptions: Benzonatate [Tessalon Perles] 100 mg PO TID PRN #9 capsule PRN Reason: Cough Is patient prescribed a controlled substance at d/c from ED?: No Referrals: None,Stated [Primary Care Provider] - 1-2 days Cristobal Yoder MD [STAFF PHYSICIAN] - 1-2 days Time of Disposition: 02:02
[2024-04-13] MEDS: BACITRACIN ZINC 500 UNIT/GM OINT 28.4 GM TUBE TOPICAL ONE (01:35)
--- NOTE | 2024-04-13 01:49 | XR ---
EXAM: XR Chest, 2 Views CLINICAL HISTORY: ITS.REASON XR Reason: Upper Respiratory Symptoms TECHNIQUE: Frontal and lateral views of the chest. COMPARISON: No relevant prior studies available. FINDINGS: Lungs: No consolidation or mass. Pleural space: No effusion. Heart: No cardiomegaly. Bones/joints: No acute findings. IMPRESSION: No acute cardiopulmonary process.
[2024-04-13 02:28] VITALS: BP 164/87; PULSE 65; RESP 18
== END 2024-04-13 02:28 | disposition home or self-care (01) ==
LOC: EC 21:47
CPT/HCPCS: 71046; 87636; 99285

== ENCOUNTER 2024-04-15 18:47 | Emergency (ER) | payer OTHER ==
[2024-04-15 19:07] VITALS: TEMP 97.8
[2024-04-15] MEDS: SODIUM CHLORIDE 0.9% 1,000 ML IV STA (19:44)
[2024-04-15] MEDS: ONDANSETRON 4 MG/2 ML VIAL IVP STA (19:45)
[2024-04-15 19:58] LABS: Basophils # (A) 0.1 k/uL (0-0.2); Basophils % (A) 0 %; Eosinophils # (A) 0.4 k/uL (0-0.7); Eosinophils % (A) 3 %; HCT 42.7 % (34.0-46.0); HGB 13.4 gm/dL (11.4-16.0); Hypochromasia Slight; Lymphocytes # (A) 1.7 k/uL (1.0-4.8); Lymphocytes % (A) 12 %; MCHC 31.4 g/dL (31.0-37.0); Monocytes # (A) 0.5 k/uL (0-1.0); Monocytes % (A) 4 %; Neutrophils # (A) 10.7 k/uL (1.3-7.7); Neutrophils % (A) 80 %; Platelet Count 231 k/uL (150-450); RBC 4.97 m/uL (3.80-5.40); RDW 14.2 % (11.5-15.5); WBC 13.5 k/uL (3.8-10.6)
[2024-04-15 20:09] LABS: ALT 37 U/L (4-34); AST 45 U/L (14-36); African American GFR (CKD) >90 (>60 ml/min/1.73 sqM); Albumin 3.9 g/dL (3.5-5.0); Alkaline Phosphatase 111 U/L (38-126); Amylase 41 U/L (30-110); Anion Gap 11 mmol/L; Blood Urea Nitrogen 12 mg/dL (7-17); Calcium 9.3 mg/dL (8.4-10.2); Carbon Dioxide 24 mmol/L (22-30); Chloride 104 mmol/L (98-107); Glucose 200 mg/dL (74-99); Lipase 96 U/L (23-300); Non-African American GFR(CKD) >90 (>60 ml/min/1.73 sqM); Potassium 4.5 mmol/L (3.5-5.1); Sodium 139 mmol/L (137-145); Total Bilirubin 0.5 mg/dL (0.2-1.3); Total Protein 7.2 g/dL (6.3-8.2)
[2024-04-15 20:46] LABS: MCV 85.8 fL (80.0-100.0)
[2024-04-16 01:23] LABS: Appearance,Urine Cloudy (Clear); Bacteria,Urine Rare /hpf; Bilirubin,Urine Negative (Negative); Blood,Urine Moderate (Negative); Color,Urine Light Yellow; Glucose,Urine (UA) Negative (Negative); Hyaline Casts,Urine 4 /lpf (0-2); Ketones,Urine Negative (Negative); Leukocyte Esterase,Urine Small (Negative); Mucus,Urine Few /hpf; Nitrite,Urine Negative (Negative); Protein,Urine Trace (Negative); RBC,Urine 5 /hpf (0-5); Specific Gravity,Urine 1.021 (1.001-1.035); Squamous Epithelial Cell,Urine 10 /hpf (0-4); Urobilinogen,Urine <2.0 mg/dL (<2.0); WBC,Urine 6 /hpf (0-5)
--- NOTE | 2024-04-16 01:32 | ED ---
General Adult HPI - General Chief complaint: Nausea/Vomiting/Diarrhea Stated complaint: Vomiting Time Seen by Provider: 04/15/24 19:08 Source: patient Mode of arrival: ambulatory Limitations: no limitations - History of Present Illness Initial comments: 44-year-old female present with chief complaint of nausea and vomiting. Symptoms have been ongoing for 1 week. She also admits to diarrhea. Patient has been experiencing a cough and congestion for which she was seen here earlier this week, negative swabs and negative chest x-ray. She was started on Tessalon Perles. No fevers or chills. No dysuria or hematuria. No hematochezia or melena. No abdominal pain. No chest pain or difficulty breathing. - Related Data Home Medications Medication Instructions Recorded Confirmed Empagliflozin [Jardiance] 10 mg PO DAILY 02/05/24 02/27/24 Haloperidol Decanoate [Haldol D] 50 mg IM Q28D 02/05/24 02/27/24 Melatonin 5 mg PO HS PRN 02/05/24 02/27/24 Naltrexone HCl [Revia] 50 mg PO DAILY 02/05/24 02/27/24 fluvoxaMINE MALEATE [Luvox CR] 150 mg PO DAILY 02/05/24 02/27/24 polyethylene glycoL 3350 [Miralax] 17 gm PO DAILY PRN 02/05/24 02/27/24 Aspirin 81 mg PO DIRECTED 02/27/24 02/27/24 Atorvastatin Calcium [Lipitor] 40 mg PO DIRECTED 02/27/24 02/27/24 Isosorbide Mononitrate ER [Imdur] 15 mg PO DIRECTED 02/27/24 02/27/24 lisinopriL [Zestril] 2.5 mg PO DIRECTED 02/27/24 02/27/24 metFORMIN HCL ER [Glucophage XR] 500 mg PO DIRECTED 02/27/24 02/27/24 Previous Rx's Medication Instructions Recorded Benzonatate [Tessalon Perles] 100 mg PO TID PRN #9 capsule 04/13/24 Loperamide [Imodium] 2 mg PO QID PRN #12 capsule 04/16/24 Ondansetron Odt [Zofran Odt] 4 mg PO Q8HR PRN #20 tab 04/16/24 Allergies Allergy/AdvReac Type Severity Reaction Status Date / Time Iodinated Contrast Media Allergy Anaphylaxis Verified 04/12/24 22:34 [Iodinated Contrast Media - IV Dye] lacosamide [From Vimpat] Allergy Anaphylaxis Verified 04/12/24 22:34 peanut Allergy Anaphylaxis Verified 04/12/24 22:34 Penicillins Allergy Anaphylaxis Verified 04/12/24 22:34 shellfish derived Allergy swelling Verified 04/12/24 22:34 all over body cephalexin monohydrate AdvReac Nausea & Verified 04/12/24 22:34 [From Keflex] Vomiting & Diarrhea trazodone AdvReac bp Verified 04/12/24 22:34 issues/dizziness Review of Systems ROS Statement: Those systems with pertinent positive or pertinent negative responses have been documented in the HPI. ROS Other: All systems not noted in ROS Statement are negative. Past Medical History Past Medical History: Asthma, Heart Failure, COPD, Diabetes Mellitus, Fibromyalgia, GERD/Reflux, GI Bleed, Hypertension, Liver Disease, Osteoarthritis (OA), Pneumonia, Seizure Disorder, Skin Disorder Additional Past Medical History / Comment(s): Bronchitis, gestational diabetes, seizures with last one 01/2024, sickle cell trait, liver cirrhosis, anemia, chrons, IBS, ulcerative colitis, lowr GI bleed, hemorrhoids, constipation, psoriasis, migraines, chronic low back and cervical pain, scoliosis, arhtritis i n multiple joints, gout bilateral feet, History of Any Multi-Drug Resistant Organisms: None Reported Past Surgical History: Cholecystectomy, Orthopedic Surgery Additional Past Surgical History / Comment(s): L oophorectomy d/t cyst, D&C, colonoscopy, L carpal tunnel release, Past Anesthesia/Blood Transfusion Reactions: Motion Sickness, Postoperative Nausea & Vomiting (PONV) Past Psychological History: Anxiety, Bipolar, Depression, Schizophrenia Smoking Status: Former smoker Past Alcohol Use History: None Reported Past Drug Use History: Cocaine - Past Family History Mother History Unknown: Yes Family Medical History: Cancer Additional Family Medical History / Comment(s): Mother had breast cancer and metnal illness She is living. Father Family Medical History: Cancer Additional Family Medical History / Comment(s): Father is . He had agent orange exposure. He had liver cancer, bowel to brain cancer. General Exam Limitations: no limitations General appearance: alert, in no apparent distress Head exam: Present: atraumatic, normocephalic, normal inspection Eye exam: Present: normal appearance, EOMI Neck exam: Present: normal inspection. Absent: meningismus Respiratory exam: Present: normal lung sounds bilaterally. Absent: respiratory distress, wheezes, rales, rhonchi, stridor Cardiovascular Exam: Present: regular rate, normal rhythm, normal heart sounds. Absent: systolic murmur, diastolic murmur, rubs, gallop, clicks GI/Abdominal exam: Present: soft. Absent: distended, tenderness, guarding, rebound, rigid Neurological exam: Present: alert, oriented X3 Psychiatric exam: Present: normal affect, normal mood Skin exam: Present: warm, dry Course Vital Signs 04/15/24 19:05 Temperature 97.8 F Pulse Rate 70 Respiratory 20 Rate Blood Pressure 118/66 O2 Sat by Pulse 98 Oximetry Medical Decision Making - Medical Decision Making Was pt. sent in by a medical professional or institution (Dr. PA, FIELD CARE COORDINATOR, urgent care, hospital, or correction...) When possible be specific @ -No Did you speak to anyone other than the patient for history (EMS, parent, family, police, friend...)? What history was obtained from this source @ -No Did you review nursing and triage notes (agree or disagree)? Why? @ -I reviewed and agree with nursing and triage notes Were old charts reviewed (outside hosp., previous admission, EMS record, old EKG, old radiological studies, urgent care reports/EKG's, correction records)? Report findings @ -No old charts were reviewed Differential Diagnosis (chest pain, altered mental status, abdominal pain women, abdominal pain men, vaginal bleeding, weakness, fever, dyspnea, syncope, headache, dizziness, GI bleed, back pain, seizure, CVA, palpatations, mental he alth, musculoskeletal)? @ -Differential includes gastroenteritis, UTI, kidney stone, this is not an all-inclusive list EKG interpreted by me (3pts min.). @ -As above X-rays interpreted by me (1pt min.). @ -None done CT interpreted by me (1pt min.). @ -None done U/S interpreted by me (1pt. min.). @ -None done What testing was considered but not performed or refused? (CT, X-rays, U/S, labs)? Why? @ -None What meds were considered but not given or refused? Why? @ -None Did you discuss the management of the patient with other professionals (professionals i.e. DrCj, PA, FIELD CARE COORDINATOR, lab, RT, psych nurse, health and social care teacher, topper press operator, teacher, command center officer, watch caser)? Give summary @ -No Was smoking cessation discussed for >3mins.? @ -No Was critical care preformed (if so, how long)? @ -No Were there social determinants of health that impacted care today? How? (Homelessness, low income, unemployed, alcoholism, drug addiction, transportation, low edu. Level, literacy, decrease access to med. care, halfway, rehab)? @ -No Was there de-escalation of care discussed even if they declined (Discuss DNR or withdrawal of care, Hospice)? DNR status @ -No What co-morbidities impacted this encounter? (DM, HTN, Smoking, COPD, CAD, Cancer, CVA, ARF, Chemo, Hep., AIDS, mental health diagnosis, sleep apnea, morbid obesity)? @ -None Was patient admitted / discharged? Hospital course, mention meds given and route, prescriptions, significant lab abnormalities, going to OR and other pertinent info. @ -44-year-old female presenting with chief complaint of nausea vomiting diarrhea ongoing for 1 week. History and physical examination are conducted. WBC 13.5, likely reactive. Mild transaminitis. Glucose 200. Urine shows moderate blood and small leukocytes but there is contamination with 10 squamous epithelial cells. Likely viral in nature. Patient is educated on today's findings and supportive management at home. Take Zofran and Imodium as needed. Discharged. Follow-up with PCP. Report back to ER with any new or worsening symptoms. Discussed return parameters and answered all questions. Patient conveyed verbal understanding and agreed to the plan. I discussed this case in detail with my attending Dr. Mitchell Undiagnosed new problem with uncertain prognosis? @ -No Drug Therapy requiring intensive monitoring for toxicity (Heparin, Nitro, Insulin, Cardizem)? @ -No Were any procedures done? @ -No Diagnosis/symptom? @ -Gastroenteritis Acute, or Chronic, or Acute on Chronic? @ -Acute Uncomplicated (without systemic symptoms) or Complicated (systemic symptoms)? @ -Uncomplicated Side effects of treatment? @ -No Exacerbation, Progression, or Severe Exacerbation? @ -No Poses a threat to life or bodily function? How? (Chest pain, [place], [place], pneumonia, PE, COPD, DKA, ARF, appy, cholecystitis, CVA, Diverticulitis, Homicidal, Suicidal, threat to staff... and all critical care pts) @ -Unlikely - Lab Data Result diagrams: 04/15/24 19:52 04/15/24 19:52 Lab Results 04/15/24 04/15/24 04/15/24 Range/Units 19:52 19:52 22:30 WBC 13.5 H (3.8-10.6) k/uL RBC 4.97 (3.80-5.40) m/uL Hgb 13.4 (11.4-16.0) gm/dL Hct 42.7 (34.0-46.0) % MCV 85.8 D (80.0-100.0) fL MCH 27.0 (25.0-35.0) pg MCHC 31.4 (31.0-37.0) g/dL RDW 14.2 (11.5-15.5) % Plt Count 231 (150-450) k/uL MPV 7.0 Neutrophils % 80 % Lymphocytes % 12 % Monocytes % 4 % Eosinophils % 3 % Basophils % 0 % Neutrophils # 10.7 H (1.3-7.7) k/uL Lymphocytes # 1.7 (1.0-4.8) k/uL Monocytes # 0.5 (0-1.0) k/uL Eosinophils # 0.4 (0-0.7) k/uL Basophils # 0.1 (0-0.2) k/uL Hypochromasia Slight Sodium 139 (137-145) mmol/L Potassium 4.5 (3.5-5.1) mmol/L Chloride 104 (98-107) mmol/L Carbon Dioxide 24 (22-30) mmol/L Anion Gap 11 mmol/L BUN 12 (7-17) mg/dL Creatinine 0.62 (0.52-1.04) mg/dL Est GFR (CKD-EPI)AfAm >90 (>60 ml/min/1.73 sqM) Est GFR (CKD-EPI)NonAf >90 (>60 ml/min/1.73 sqM) Glucose 200 H (74-99) mg/dL Calcium 9.3 (8.4-10.2) mg/dL Total Bilirubin 0.5 (0.2-1.3) mg/dL AST 45 H (14-36) U/L ALT 37 H (4-34) U/L Alkaline Phosphatase 111 (38-126) U/L Total Protein 7.2 (6.3-8.2) g/dL Albumin 3.9 (3.5-5.0) g/dL Amylase 41 (30-110) U/L Lipase 96 (23-300) U/L Urine Color Light Yellow Urine Appearance Cloudy H (Clear) Urine pH 6.0 (5.0-8.0) Ur Specific [place] 1.021 (1.001-1.035) Urine Protein Trace H (Negative) Urine Glucose (UA) Negative (Negative) Urine Ketones Negative (Negative) Urine Blood Moderate H (Negative) Urine Nitrite Negative (Negative) Urine Bilirubin Negative (Negative) Urine Urobilinogen <2.0 (<2.0) mg/dL Ur Leukocyte Esterase Small H (Negative) Urine RBC 5 (0-5) /hpf Urine WBC 6 H (0-5) /hpf Ur Squamous Epith Cells 10 H (0-4) /hpf Urine Bacteria Rare H (None) /hpf Hyaline Casts 4 H (0-2) /lpf Urine Mucus Few H (None) /hpf Disposition Clinical Impression: Gastroenteritis Disposition: HOME SELF-CARE Condition: Good Instructions (If sedation given, give patient instructions): Acute Nausea and Vomiting (ED), Acute Diarrhea (ED), How to Take a Shower (GEN) Additional Instructions: Follow-up with PCP. Report back to ER with any new or worsening symptoms. Prescriptions: Loperamide [Imodium] 2 mg PO QID PRN #12 capsule PRN Reason: Diarrhea Ondansetron Odt [Zofran Odt] 4 mg PO Q8HR PRN #20 tab PRN Reason: Nausea Is patient prescribed a controlled substance at d/c from ED?: No Referrals: None,Stated [Primary Care Provider] - 1-2 days Time of Disposition: 01:31
[2024-04-16 02:17] VITALS: BP 132/82; PULSE 64; RESP 18
== END 2024-04-16 02:17 | disposition home or self-care (01) ==
LOC: EC 18:47
CPT/HCPCS: 36415; 80053; 81001; 82150; 83690; 85025; 96361; 96374; 99283

== ENCOUNTER 2024-04-18 19:06 | Inpatient (IN) | payer MEDICAID, OTHER ==
--- NOTE | 2024-04-18 19:56 | ED ---
Psych HPI - General Chief Complaint: Psychiatric Symptoms Stated Complaint: mental health Time Seen by Provider: 04/18/24 19:52 Source: patient, RN notes reviewed Mode of arrival: ambulatory - History of Present Illness Initial Comments: 44-year-old female with history of bipolar and schizophrenia presenting for suicide attempt. States she has been feeling as though she is "better off " and having suicidal thoughts for 2 weeks. Reports she has public guardians who do not care about her and she has been homeless and living in a park for the past 2 weeks. Today she [place] [address], however reports a woman passing by stopped her and drove her to the ER. Denies any injuries. She has a history of psychiatric admissions. - Related Data Home Medications Medication Instructions Recorded Confirmed Empagliflozin [Jardiance] 10 mg PO DAILY 02/05/24 02/27/24 Haloperidol Decanoate [Haldol D] 50 mg IM Q28D 02/05/24 02/27/24 Melatonin 5 mg PO HS PRN 02/05/24 02/27/24 Naltrexone HCl [Revia] 50 mg PO DAILY 02/05/24 02/27/24 fluvoxaMINE MALEATE [Luvox CR] 150 mg PO DAILY 02/05/24 02/27/24 polyethylene glycoL 3350 [Miralax] 17 gm PO DAILY PRN 02/05/24 02/27/24 Aspirin 81 mg PO DIRECTED 02/27/24 02/27/24 Atorvastatin Calcium [Lipitor] 40 mg PO DIRECTED 02/27/24 02/27/24 Isosorbide Mononitrate ER [Imdur] 15 mg PO DIRECTED 02/27/24 02/27/24 lisinopriL [Zestril] 2.5 mg PO DIRECTED 02/27/24 02/27/24 metFORMIN HCL ER [Glucophage XR] 500 mg PO DIRECTED 02/27/24 02/27/24 Previous Rx's Medication Instructions Recorded Benzonatate [Tessalon Perles] 100 mg PO TID PRN #9 capsule 04/13/24 Loperamide [Imodium] 2 mg PO QID PRN #12 capsule 04/16/24 Ondansetron Odt [Zofran Odt] 4 mg PO Q8HR PRN #20 tab 04/16/24 Allergies Allergy/AdvReac Type Severity Reaction Status Date / Time Iodinated Contrast Media Allergy Anaphylaxis Verified 04/18/24 19:11 [Iodinated Contrast Media - IV Dye] lacosamide [From Vimpat] Allergy Anaphylaxis Verified 04/18/24 19:11 peanut Allergy Anaphylaxis Verified 04/18/24 19:11 Penicillins Allergy Anaphylaxis Verified 04/18/24 19:11 shellfish derived Allergy swelling Verified 04/18/24 19:11 all over body cephalexin monohydrate AdvReac Nausea & Verified 04/18/24 19:11 [From Keflex] Vomiting & Diarrhea trazodone AdvReac bp Verified 04/18/24 19:11 issues/dizziness Review of Systems ROS Statement: Those systems with pertinent positive or pertinent negative responses have been documented in the HPI. ROS Other: All systems not noted in ROS Statement are negative. Past Medical History Past Medical History: Asthma, Heart Failure, COPD, Diabetes Mellitus, Fibromyalgia, GERD/Reflux, GI Bleed, Hypertension, Liver Disease, Osteoarthritis (OA), Pneumonia, Seizure Disorder, Skin Disorder Additional Past Medical History / Comment(s): Bronchitis, gestational diabetes, seizures with last one 01/2024, sickle cell trait, liver cirrhosis, anemia, chrons, IBS, ulcerative colitis, lowr GI bleed, hemorrhoids, constipation, psoriasis, migraines, chronic low back and cervical pain, scoliosis, arhtritis in multiple joints, gout bilateral feet, History of Any Multi-Drug Resistant Organisms: None Reported Past Surgical History: Cholecystectomy, Orthopedic Surgery Additional Past Surgical History / Comment(s): L oophorectomy d/t cyst, D&C, colonoscopy, L carpal tunnel release, Past Anesthesia/Blood Transfusion Reactions: Motion Sickness, Postoperative Nausea & Vomiting (PONV) Past Psychological History: Anxiety, Bipolar, Depression, Schizophrenia Smoking Status: Former smoker Past Alcohol Use History: None Reported Past Drug Use History: Cocaine - Past Family History Mother History Unknown: Yes Family Medical History: Cancer Additional Family Medical History / Comment(s): Mother had breast cancer and metnal illness She is living. Father Family Medical History: Cancer Additional Family Medical History / Comment(s): Father is . He had agent orange exposure. He had liver cancer, bowel to brain cancer. General Exam General appearance: alert, in no apparent distress Head exam: Present: atraumatic, normocephalic, normal inspection Eye exam: Present: normal appearance, PERRL, EOMI. Absent: scleral icterus, conjunctival injection, periorbital swelling Respiratory exam: Present: normal lung sounds bilaterally. Absent: respiratory distress, wheezes, rales, rhonchi, stridor Cardiovascular Exam: Present: regular rate, normal rhythm, normal heart sounds. Absent: systolic murmur, diastolic murmur, rubs, gallop, clicks Extremities exam: Present: normal inspection, full ROM, normal capillary refill. Absent: tenderness, pedal edema, joint swelling, calf tenderness Neurological exam: Present: alert, oriented X3 Psychiatric exam: Present: normal affect, normal mood, suicidal ideation. Absent: homicidal ideation Skin exam: Present: warm, dry, intact, normal color. Absent: rash Course Vital Signs 04/18/24 19:08 Temperature 98.2 F Pulse Rate 78 Respiratory 18 Rate Blood Pressure 153/87 O2 Sat by Pulse 97 Oximetry Medical Decision Making - Medical Decision Making Was pt. sent in by a medical professional or institution (, PA, SLIMER, urgent care, hospital, or half-way...) When possible be specific @ -No Did you speak to anyone other than the patient for history (EMS, parent, family, police, friend...)? What history was obtained from this source @ -No Did you review nursing and triage notes (agree or disagree)? Why? @ -I reviewed and agree with nursing and triage notes Were old charts reviewed (outside hosp., previous admission, EMS record, old EKG, old radiological studies, urgent care reports/EKG's, half-way records)? Report findings @ -No old charts were reviewed Differential Diagnosis (chest pain, altered mental status, abdominal pain women, abdominal pain men, vaginal bleeding, weakness, fever, dyspnea, syncope, headache, dizziness, GI bleed, back pain, seizure, CVA, palpatations, mental health, musculoskeletal)? @ -Differential Mental Health Depression, anxiety, bipolar, psychosis, schizophrenia, borderline personality, situational depression, adjustment disorder, behavioral disorder, brain tumor, m alingering, substance abuse, encephalopathy, medication reaction, dementia, hypothyroidism, degenerative neurologic disorder, lupus.... This is not meant to be all-inclusive list EKG interpreted by me (3pts min.). @ -None X-rays interpreted by me (1pt min.). @ -None done CT interpreted by me (1pt min.). @ -None done U/S interpreted by me (1pt. min.). @ -None done What testing was considered but not performed or refused? (CT, X-rays, U/S, labs)? Why? @ -None What meds were considered but not given or refused? Why? @ -None Did you discuss the management of the patient with other professionals (radha boone i.e. , PA, SLIMER, lab, RT, psych nurse, secondary social studies teacher, clinical coordinator, teacher, trust officer, piano case and bench assembler)? Give summary @ -Discussed case with EPS who recommends inpatient admission at this time for suicidal ideation Was smoking cessation discussed for >3mins.? @ -No Was critical care preformed (if so, how long)? @ -No Were there social determinants of health that impacted care today? How? (Homelessness, low income, unemployed, alcoholism, drug addiction, transportation, low edu. Level, literacy, decrease access to med. care, retirement, rehab)? @ -No Was there de-escalation of care discussed even if they declined (Discuss DNR or withdrawal of care, Hospice)? DNR status @ -No What co-morbidities impacted this encounter? (DM, HTN, Smoking, COPD, CAD, Cancer, CVA, ARF, Chemo, Hep., AIDS, mental health diagnosis, sleep apnea, morbid obesity)? @ -None Was patient admitted / discharged? Hospital course, mention meds given and route, prescriptions, significant lab abnormalities, going to OR and other pertinent info. @ -Patient was admitted. Patient was seen and evaluated for suicidal intent. Patient attempted to jump off a bridge earlier this afternoon, was stopped by a bypassing person and brought to the ER. No injuries from attempt. Patient states she has been having suicidal ideation for 2 weeks. Case was discussed with EPS who recommends inpatient psych admission at this time, patient agrees to plan and signs admission voluntarily. Case was discussed with my ED attending Dr. Pastor. Undiagnosed new problem with uncertain prognosis? @ -No Drug Therapy requiring intensive monitoring for toxicity (Heparin, Nitro, Insulin, Cardizem)? @ -No Were any procedures done? @ -No Diagnosis/symptom? @ -Suicidal ideation Acute, or Chronic, or Acute on Chronic? @ -Acute Uncomplicated (without systemic symptoms) or Complicated (systemic symptoms)? @ -Complicated Side effects of treatment? @ -No Exacerbation, Progression, or Severe Exacerbation? @ -No Poses a threat to life or bodily function? How? (Chest pain, [place], [place], pneumonia, PE, COPD, DKA, ARF, appy, cholecystitis, CVA, Diverticulitis, Homicidal, Suicidal, threat to staff... and all critical care pts) @ -Yes, suicidal - Lab Data Lab Results 04/18/24 04/18/24 04/18/24 Range/Units 21:14 21:17 21:17 POC Glucose (mg/dL) 222 H (70-110) mg/dL POC Glu Funeral Car Driver ID Lety Kapoor Urine Opiates Screen Not Detected (NotDetected) Ur Oxycodone Screen Not Detected (NotDetected) Urine Methadone Screen Not Detected (NotDetected) Ur Barbiturates Screen Not Detected (NotDetected) U Tricyclic Antidepress Not Detected (NotDetected) Ur Phencyclidine Scrn Not Detected (NotDetected) Ur Amphetamines Screen Not Detected (NotDetected) U Methamphetamines Scrn Not Detected (NotDetected) U Benzodiazepines Scrn Not Detected (NotDetected) Urine Cocaine Screen Detected H (NotDetected) U Marijuana (THC) Screen Not Detected (NotDetected) SARS-CoV-2 (PCR) Not Detected (Not Detectd) Disposition Clinical Impression: Attempted suicide Disposition: ADMITTED IP TO THIS [facility] Referrals: None,Stated [Primary Care Provider] - 1-2 days Time of Disposition: 22:27
[2024-04-18 21:16] LABS: Glucose,Whole Blood 222 mg/dL (70-110)
[2024-04-18 21:53] LABS: Amphetamine Screen,Urine Not Detected (NotDetected); Barbiturate Screen,Urine Not Detected (NotDetected); Benzodiazepines Screen,Urine Not Detected (NotDetected); Cocaine Screen,Urine Detected (NotDetected); Methadone Screen, Urine Not Detected (NotDetected); Opiate Screen,Urine Not Detected (NotDetected); Oxycodone Screen, Urine Not Detected (NotDetected); Phencyclidine Screen,Urine Not Detected (NotDetected); Tricyclic Antidepressant,Urine Not Detected (NotDetected); Urn Cannabinoid Scrn Not Detected (NotDetected)
[2024-04-18] MEDS ORDERED: ACETAMINOPHEN TAB 325 MG TAB PO PRN (22:37)
[2024-04-18] MEDS ORDERED: MAGNESIUM HYDROXIDE 2,400 MG/30 ML CUP PO PRN (22:37)
[2024-04-18] MEDS ORDERED: LORazepam 1 MG TAB PO PRN (22:39)
[2024-04-18] MEDS ORDERED: haloperidoL 5 MG TAB PO PRN (22:39)
[2024-04-18] MEDS ORDERED: LORazepam 2 MG/ML INJ IM PRN (22:39)
[2024-04-18] MEDS ORDERED: HALOPERIDOL LACTATE 5 MG/ML 1 ML VIAL IM PRN (22:39)
[2024-04-19 07:51] LABS: Glucose,Whole Blood 176 mg/dL (70-110)
[2024-04-19 12:22] LABS: Glucose,Whole Blood 164 mg/dL (70-110)
[2024-04-19] MEDS: HALOPERIDOL DECANOATE 50 MG/ML 1 ML VIAL IM SCH (13:52)
[2024-04-19] MEDS: DULoxetine HCL 30 MG CAPSULE.DR PO SCH (13:52)
--- NOTE | 2024-04-19 14:23 | P.HP ---
Psychiatric H&P - . H&P Date: 04/19/24 History & Physical: Allergies Allergy/AdvReac Type Severity Reaction Status Date / Time Iodinated Contrast Media Allergy Anaphylaxis Verified 04/18/24 19:11 [Iodinated Contrast Media - IV Dye] lacosamide [From Vimpat] Allergy Anaphylaxis Verified 04/18/24 19:11 peanut Allergy Anaphylaxis Verified 04/18/24 19:11 Penicillins Allergy Anaphylaxis Verified 04/18/24 19:11 shellfish derived Allergy swelling Verified 04/18/24 19:11 all over body cephalexin monohydrate AdvReac Nausea & Verified 04/18/24 19:11 [From Keflex] Vomiting & Diarrhea trazodone AdvReac bp Verified 04/18/24 19:11 issues/dizziness Vital Signs Temp 98.3 F 04/18/24 22:36 Pulse 63 04/18/24 22:36 Resp 16 04/18/24 22:36 BP 121/58 04/18/24 22:36 Pulse Ox 97 04/18/24 22:36 FiO2 Intake & Output 04/18/24 04/19/24 04/19/24 18:59 06:59 18:59 Weight 131.6 kg Laboratory Last Values POC Glucose (mg/dL) 176 mg/dL (70-110) H 04/19/24 07:48 POC Glu Airfield Manager ID Ana Contreras 04/19/24 07:48 Urine Opiates Screen Not Detected (NotDetected) 04/18/24 21:17 Ur Oxycodone Screen Not Detected (NotDetected) 04/18/24 21:17 Urine Methadone Screen Not Detected (NotDetected) 04/18/24 21:17 Ur Barbiturates Screen Not Detected (NotDetected) 04/18/24 21:17 U Tricyclic Antidepress Not Detected (NotDetected) 04/18/24 21:17 Ur Phencyclidine Scrn Not Detected (NotDetected) 04/18/24 21:17 Ur Amphetamines Screen Not Detected (NotDetected) 04/18/24 21:17 U Methamphetamines Scrn Not Detected (NotDetected) 04/18/24 21:17 U Benzodiazepines Scrn Not Detected (NotDetected) 04/18/24 21:17 Urine Cocaine Screen Detected (NotDetected) H 04/18/24 21:17 U Marijuana (THC) Screen Not Detected (NotDetected) 04/18/24 21:17 SARS-CoV-2 (PCR) Not Detected (Not Detectd) 04/18/24 21:17 04/19/24 09:46 IDENTIFYING DATA: Patient is a 44 year old female, has a public guardian, currently homeless. Has 2 children that live in foster care. Collects SSI HPI: Patient presented to the hospital ED on 04/18. As per EPS note, "Patient presents in ER stating she was having suicidal ideation with plan and intent to jump off bridge. Patient states a car passing by stopped her and took her to ED. Patient states she has recent history of self inflicted injury including burning self. Patient shown burn josé miguel in stages of healing on right breast. Patient states she is worthless, life is not worth living, and she would be better off . Patient does not contract for safety and states if discharged she would jump off a bridge. Patient verbalizes being open with [facility], last seen 2 weeks ago. Patient verbalizes being noncompliant with medications in the last month because she does not want to take them. Patient states she has medical conditions including seizure disorder (Last 01/2024) and diabetes type 2 but denies other PMH. Upon review of chart patient PMH includes Asthma, COPD, Fibromyalgia, Hypertension, GERD, Osteoarthritis, and liver disease. Patient denies taking home medications and denies medical conditions to automatic typewriter inspector at this time. Patient has guardian, [facility] public guardian. Guardian notified of patient in ED." Upon todays assessment, she states she was wanting to just and jump off the bridge, but a passerby stopped her and brought her to the hospital. She states she is tired of detention and rehab, and she just does not want to live anymore. She claims to not sleep, and claims her appetite is poor. Patient endorses suicidal ideations, no plan or intent (then stated if she did have a plan, she would not tell us), denies homicidal ideations intent or plan. At this time patient denies any auditory or visual hallucinations. Patient denies any flight of ideas racing thoughts. Patient states she does not use any drugs, alcohol or cigarettes, however, her drug screen was positive for cocaine. PAST PSYCHIATRIC HISTORY: Patient states that she has a history of schizoaffective disorder. Patient was previously on several different psychiatric medications and was previously on Cymbalta, Lamictal, trazodone, Vistaril and naltrexone. Patient is now currently getting Haldol Dec 50mg IM monthly from [facility] and last injection was given 03/27/24. She states that she has been hospitalized several times in [place] and also at [facility], Her last admission on this unit was 02/19/24. Was admitted at an unknown facility 10/23. She claims that she follows up at [facility] with Dr. Zuñiga. She states that she has not taken any oral medications in the past month. She claims that she is had multiple suicide attempts where she tried to overdose. PMH:As per ER note ALLERGIES: as per EMR CHEMICAL DEPENDENCY HISTORY: as per HPI FAMILY PSYCHIATRIC/SUBSTANCE USE HISTORY: [denies] SOCIAL HISTORY: Patient is currently homeless. She was born and raised in [facility] and completed up to 11th grade. She is currently unemployed. She reports having 2 children who are currently in foster care. She has been incarcerated several times in the past. MENTAL STATUS EXAM: General Appearance: Patient appears to be older than stated age is alert. Patient appears to have [very poor] hygiene and grooming. Malodorous. Short curly hair, wearing glasses and a hospital gown Behavior: Patient is seated with mildly agitated behavior. [place] Speech: Patient's speech is [fluent and nonpressured. Mood/Affect: Patient reports their mood is [depressed and wants to ], affect is congruent and constricted. Suicidality/Homicidality: Patient denies having any homicidal ideation intent or plan. Admits to suicidal ideations, no intent or plan] Perceptions: Patient denies any visual hallucinations [and denies any auditory hallucinations] Though content/process: [There is no evidence of any delusional thought content and thought process is focused on detention and rehab, and wanting to Memory and concentration: AOX3, grossly intact for the purposes of this session. Can spell "WORLD" backwards Judgment and insight: [poor] STRENGTHS/WEAKNESSES: strength is that patient is [resilient]. Weakness is that patient [has poor judgment and is impulsive] INTELLECT: [average] IMPRESSIONS: Major depressive disorder, without psychotic features Borderline personality disorder Cocaine use disorder, severe homelessness non compliance with medication and treatment PLAN: -Patient is admitted under [voluntary] status to [facility] for stabilization of psychiatric symptoms and safety. Patient has signed [adult voluntary form and] [medication consent] and is placed in patient's chart. -Medications : Will start patient on Haldol D 50mg IM today for psychosis, next dose due in 3 weeks, on 05/10. Remeron 15mg qhs for anxiety/mood/sleep, Cymbalta 30mg bid for mood/anxiety -Ativan [and Haldol] PRN for agitation/aggression -Patient was counselled on substance abuse and desired to cut back on use] -Patient was informed of the risks, benefits and side effects of the medication [and patient verbally consented to taking the medications. ] -Internal Medicine consult to perform medical evaluation and physical. -NRT - not needed as patient does not smoke. -SW on board for discharge planning. Encourage patient to participate in groups to work on coping skills. 04/19/24 11:54 04/19/24 14:21 04/19/24 14:22
[2024-04-19 18:05] LABS: Glucose,Whole Blood 147 mg/dL (70-110)
[2024-04-19 19:55] LABS: Glucose,Whole Blood 238 mg/dL (70-110)
[2024-04-19] MEDS: MIRTAZAPINE 15 MG TAB PO SCH (21:05)
[2024-04-20 08:03] LABS: Glucose,Whole Blood 160 mg/dL (70-110)
[2024-04-20 10:47] LABS: ALT 37 U/L (4-34); AST 46 U/L (14-36); African American GFR (CKD) >90 (>60 ml/min/1.73 sqM); Albumin 3.7 g/dL (3.5-5.0); Alkaline Phosphatase 100 U/L (38-126); Anion Gap 9 mmol/L; Bilirubin, Delta 0.1 mg/dL (0.0-0.2); Bilirubin,Unconjugated 0.2 mg/dL (0.0-1.1); Blood Urea Nitrogen 7 mg/dL (7-17); Calcium 9.2 mg/dL (8.4-10.2); Carbon Dioxide 25 mmol/L (22-30); Chloride 105 mmol/L (98-107); Glucose 184 mg/dL (74-99); Non-African American GFR(CKD) >90 (>60 ml/min/1.73 sqM); Potassium 4.5 mmol/L (3.5-5.1); Sodium 139 mmol/L (137-145); Total Bilirubin 0.3 mg/dL (0.2-1.3); Total Protein 6.8 g/dL (6.3-8.2)
[2024-04-20 10:50] LABS: Basophils % (A) 0 %; Eosinophils # (A) 0.6 k/uL (0-0.7); Eosinophils % (A) 5 %; HCT 42.1 % (34.0-46.0); HGB 13.7 gm/dL (11.4-16.0); Lymphocytes # (A) 1.9 k/uL (1.0-4.8); Lymphocytes % (A) 17 %; MCHC 32.5 g/dL (31.0-37.0); MCV 86.1 fL (80.0-100.0); Mean Platelet Volume 7.6; Monocytes # (A) 0.5 k/uL (0-1.0); Monocytes % (A) 4 %; Neutrophils # (A) 8.2 k/uL (1.3-7.7); Neutrophils % (A) 73 %; Platelet Count 213 k/uL (150-450); RBC 4.89 m/uL (3.80-5.40); RDW 14.6 % (11.5-15.5); WBC 11.3 k/uL (3.8-10.6)
--- NOTE | 2024-04-20 10:54 | P.PN ---
Progress Note - Text Progress Note Date: 04/20/24 Interval History: Patient was seen in her room and was directable and agreeable to speak with wr iter at the bedside. The patient stated her mood is improving, and she is no longer endorsing suicidal ideations. She stated she slept well last night, and her appetite has returned to normal. The patient, and her entire room is extremely malodorous. She states she has an infection under her stomach, and she needs desitin cream for it. Senior Stock Plan Administrator will have medical come look at the patient, and see what they recommend. At this time patient denies any suicidal or homicidal ideations, intent or plan. Patient denies any auditory, visual hallucinations and denies any paranoia or delusions. Patient denies any side effects from the medications and has been compliant with meds. MENTAL STATUS EXAM: General Appearance: Patient appears to be older than stated age is alert. Patient appears to have very poor hygiene and grooming. Malodorous. Short curly hair, wearing glasses and a hospital gown Behavior: Patient is calmly laying in bed. more cooperative today Speech: Patient's speech is fluent and nonpressured. Mood/Affect: Patient reports their mood is improving affect is congruent and constricted. improving mildly Suicidality/Homicidality: Patient denies having any homicidal ideation intent o r plan. Denies suicidal ideations, no intent or plan Perceptions: Patient denies any visual hallucinations and denies any auditory hallucinations Though content/process: There is no evidence of any delusional thought content and thought process linear Memory and concentration: AOX3, grossly intact for the purposes of this session. Judgment and insight: Poor, improving mildly IMPRESSIONS: Major depressive disorder, without psychotic features Borderline personality disorder Cocaine use disorder, severe homelessness non compliance with medication and treatment PLAN: -Patient is admitted under voluntary status to [facility] for stabilization of psychiatric symptoms and safety. -Medications : Haldol D 50mg IM given on 04/19 for psychosis, next dose due in 3 weeks, on 05/10. Remeron 15mg qhs for anxiety/mood/sleep, Cymbalta 30mg bid for mood/anxiety -Ativan and Haldol PRN for agitation/aggression -NRT - not needed as patient does not smoke. -SW on board for discharge planning. Encourage patient to participate in groups to work on coping skills.
[2024-04-20] MEDS: NYSTATIN 100,000 UNIT/GM OINT 30 GM TUBE TOPICAL SCH (11:23)
[2024-04-20] MEDS: ISOSORBIDE MONONITRATE ER 15 MG TAB PO SCH (11:23)
[2024-04-20] MEDS: ASPIRIN 81 MG PO SCH (11:24)
[2024-04-20] MEDS: metFORMIN 500 MG TAB PO SCH ×2 (11:24→17:29)
[2024-04-20] MEDS: NALTREXONE HCL 50 MG TAB PO SCH (11:25)
[2024-04-20 12:42] LABS: Glucose,Whole Blood 132 mg/dL (70-110)
[2024-04-20 15:34] LABS: Chol/HDL Ratio 4.08 Ratio; LDL Cholesterol,Calculated 93.1 mg/dL (0.0-131.0)
[2024-04-20] MEDS ORDERED: DEXTROSE 50% SYRINGE 50 ML IVP PRN ×2 (16:07)
[2024-04-20] MEDS: INSULIN ASPART (NovoLOG) 100 UNIT/ML VIAL SQ SCH (17:31)
[2024-04-20 17:32] LABS: Glucose,Whole Blood 144 mg/dL (70-110)
[2024-04-20 20:04] LABS: Glucose,Whole Blood 145 mg/dL (70-110)
[2024-04-20] MEDS: ATORVASTATIN 40 MG TAB PO SCH (20:15)
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
[2024-04-21 08:46] VITALS: BMI 48.2
[2024-04-21 09:29] LABS: Glucose,Whole Blood 195 mg/dL (70-110)
[2024-04-21] MEDS: INSULIN DETEMIR (LEVEMIR) 100 UNIT/ML SYR SQ SCH (09:46)
[2024-04-21] MEDS: NYSTATIN 100,000 UNIT/GM POWD 15 GM TOPICAL SCH (09:54)
[2024-04-21] MEDS: IBUPROFEN 600 MG TAB PO PRN (10:04)
--- NOTE | 2024-04-21 11:16 | P.PN ---
Progress Note - Text Progress Note Date: 04/21/24 Interval History: Patient was seen in her room and was directable and agreeable to speak with wr iter at the bedside. The patient stated that she is feeling better today. She states that she 'threw her back out'. She states that lidocaine patches help her out. Lumber Racker will order. Medical came and seen the patient, and ordered nystatin powder TID for the fungal infection, however, the patient is refusing, she was encouraged to apply this regularly. She states she did not eat this morning, and she slept fine last night. At this time patient denies any suicidal or homicidal ideations, intent or plan. Patient denies any auditory, visual hallucinations and denies any paranoia or delusions. Patient denies any side effects from the medications and has been compliant with meds. MENTAL STATUS EXAM: General Appearance: Patient appears to be older than stated age is alert. Patient appears to have very poor hygiene and grooming. Malodorous. Short curly hair, wearing glasses and a hospital gown Behavior: Patient is calmly laying in bed. not very engaged in conversation Speech: Patient's speech is fluent and nonpressured. Mood/Affect: Patient reports their mood is improving affect is congruent and constricted. improving mildly Suicidality/Homicidality: Patient denies having any homicidal ideation intent or plan. Denies suicidal ideations, no intent or plan Perceptions: Patient denies any visual hallucinations and denies any auditory hallucinations Though content/process: There is no evidence of any delusional thought content and thought process linear Memory and concentration: AOX3, grossly intact for the purposes of this session. Judgment and insight: Poor, improving mildly IMPRESSIONS: Major depressive disorder, without psychotic features Borderline personality disorder Cocaine use disorder, severe homelessness non compliance with medication and treatment PLAN: -Patient is admitted under voluntary status to [facility] for stabilization of psychiatric symptoms and safety. -Medications : Haldol D 50mg IM given on 04/19 for psychosis, next dose due in 3 weeks, on 05/10. Remeron 15mg qhs for anxiety/mood/sleep, Cymbalta 30mg bid for mood/anxiety -Ativan and Haldol PRN for agitation/aggression -NRT - not needed as patient does not smoke -SW on board for discharge planning. Encourage patient to participate in groups to work on coping skills. if patient improves, likely discharge wednesday.
[2024-04-21 12:46] LABS: Glucose,Whole Blood 116 mg/dL (70-110)
[2024-04-21 16:58] LABS: Glucose,Whole Blood 136 mg/dL (70-110)
[2024-04-21 20:09] LABS: Glucose,Whole Blood 148 mg/dL (70-110)
[2024-04-22 07:46] LABS: Glucose,Whole Blood 153 mg/dL (70-110)
--- NOTE | 2024-04-22 10:25 | P.PN ---
Progress Note - Text Progress Note Date: 04/22/24 Interval history: Patient was seen today laying in her bed and was directable and agreeable to speak with card writer hand. Patient was fairly superficial with card writer hand states that she is using the cream and powder however she has been refusing according to the MAR. Patient states that her mood is "fine" denies any depression or anxiety at this time. Has been mainly keeping to herself in her room. States that her appetite is fair at this time. He needs to have a malodorous smell coming from her room. At this time patient denies any suicidal or homicidal ideations intent or plan. Denies any Auditory or visual hallucinations. Patient denies any side effects from the medications and has been compliant with meds. Mental status exam: General Appearance: Patient appears to be overweight, short hair, wearing glasses, stated age is alert, directable, and cooperative. Behavior: No agitated behavior. Patient is calm and directable superficial Speech: Patient's speech is fluent and nonpressured. Mood/Affect: Mood is improving mildly, affect is congruent and constricted. Improving mildly Suicidality/Homicidality: Patient denies having any suicidal or homicidal ideation intent or plan. Perceptions: Patient denies any auditory or visual hallucinations. Though content/process: There is no evidence of any delusional thought content and thought process is linear and goal-directed. [place] Memory and concentration: AOX3, grossly intact for the purposes of this session Judgment and insight: improving mildly Assessment/Plan: Continue with current diagnosis. Patient continues to meet criteria for inpatient psychiatric admission for symptom stabilization and safety. Patient will be maintained on current psychotropic medication regimen. Monitor for medication compliance and for any psychotropic medication side effects. Will continue to monitor ongoing response to treatment. Encouraged participation in milieu.
[2024-04-22 13:08] LABS: Glucose,Whole Blood 117 mg/dL (70-110)
[2024-04-22 17:43] LABS: Glucose,Whole Blood 112 mg/dL (70-110)
[2024-04-22 20:34] LABS: Glucose,Whole Blood 137 mg/dL (70-110)
[2024-04-23 08:22] LABS: Glucose,Whole Blood 148 mg/dL (70-110)
[2024-04-23 12:51] LABS: Glucose,Whole Blood 121 mg/dL (70-110)
--- NOTE | 2024-04-23 14:14 | P.PN ---
Progress Note - Text Progress Note Date: 04/23/24 Interval history: Patient was seen today laying in her bed and was directable and agreeable to speak with marketing writer. Patient continues to have a malodorous smell coming from her room. She started taking the nystatin and silver-cream for the fungal infection. Patient was fairly superficial with marketing writer. Patient states that her mood is "fine" denies any depression or anxiety at this time. Was asking about potential discharge. Has been mainly keeping to herself in her room. States that her appetite is fair at this time. At this time patient denies any suicidal or homicidal ideations intent or plan. Denies any Auditory or visual hallucinations. Patient denies any side effects from the medications and has been compliant with meds. Mental status exam: General Appearance: Patient appears to be overweight, short hair, wearing glasses, stated age is alert, directable, and cooperative. Behavior: No agitated behavior. Patient is calm and directable superficial, improving mildly Speech: Patient's speech is fluent and nonpressured. Mood/Affect: Mood is improving mildly, affect is congruent and constricted. Improving mildly Suicidality/Homicidality: Patient denies having any suicidal or homicidal ideation intent or plan. Perceptions: Patient denies any auditory or visual hallucinations. Though content/process: There is no evidence of any delusional thought content and thought process is linear and goal-directed. [place], improving mildly Memory and concentration: AOX3, grossly intact for the purposes of this session Judgment and insight: improving mildly Assessment/Plan: Continue with current diagnosis. Patient continues to meet criteria for inpatient psychiatric admission for symptom stabilization and safety. Patient will be maintained on current psychotropic medication regimen. Monitor for medication compliance and for any psychotropic medication side effects. Will continue to monitor ongoing response to treatment. Encouraged participation in milieu. Likely discharge Wednesday back to senior living.
[2024-04-23 17:47] LABS: Glucose,Whole Blood 107 mg/dL (70-110)
[2024-04-23] MEDS: MAG HYDROX/AL HYDROX/SIMETH 355 ML BOTTLE PO PRN (18:06)
[2024-04-23 20:10] LABS: Glucose,Whole Blood 189 mg/dL (70-110)
[2024-04-24 07:53] LABS: Glucose,Whole Blood 175 mg/dL (70-110)
--- NOTE | 2024-04-24 10:30 | P.PN ---
Progress Note - Text Progress Note Date: 04/24/24 Interval History: Patient was seen in her room and was directable and agreeable to speak with wr iter at the bedside. The patient stated that she is feeling better today did state that she feels a bit anxious today. She claims that she got about 3 to 4 hours last night of sleep, was agreeable to have her Remeron increased. She has ordered nystatin powder TID for the fungal infection, however, he has not been consistent with taking it and applying it. She states she did eat this morning, names her mood is improving. At this time patient denies any suicidal or homicidal ideations, intent or plan. Patient denies any auditory, visual hallucinations and denies any paranoia or delusions. Patient denies any side effects from the medications and has been compliant with meds. MENTAL STATUS EXAM: General Appearance: Patient appears to be older than stated age is alert. Patient appears to have improving hygiene and grooming. Malodorous. Short curly hair, wearing glasses and a hospital gown Behavior: Patient is calmly laying in bed. not very engaged in conversation Speech: Patient's speech is fluent and nonpressured. Mood/Affect: Patient reports their mood is improving affect is congruent and constricted. improving mildly Suicidality/Homicidality: Patient denies having any homicidal ideation intent or plan. Denies suicidal ideations, no intent or plan Perceptions: Patient denies any visual hallucinations and denies any auditory hallucinations Though content/process: There is no evidence of any delusional thought content and thought process linear. Fairly concrete. Memory and concentration: AOX3, grossly intact for the purposes of this session. Judgment and insight: improving mildly IMPRESSIONS: Major depressive disorder, without psychotic features Borderline personality disorder Cocaine use disorder, severe homelessness non compliance with medication and treatment PLAN: -Patient is admitted under voluntary status to [facility] for stabilization of psychiatric symptoms and safety. -Medications : Haldol D 50mg IM given on 04/19 for psychosis, next dose due in 3 weeks, on 05/10. Increase Remeron 30 mg qhs for anxiety/mood/sleep, Cymbalta 30mg bid for mood/anxiety -Ativan and Haldol PRN for agitation/aggression -NRT - not needed as patient does not smoke -SW on board for discharge planning. Encourage patient to participate in groups to work on coping skills. if patient improves, likely discharge tomorrow, she is a [facility] hold.
[2024-04-24 12:37] LABS: Glucose,Whole Blood 149 mg/dL (70-110)
[2024-04-24 17:27] LABS: Glucose,Whole Blood 160 mg/dL (70-110)
[2024-04-24 20:12] LABS: Glucose,Whole Blood 190 mg/dL (70-110)
[2024-04-24] MEDS: MELATONIN 3 MG TABLET PO SCH (20:14)
[2024-04-24] MEDS: MIRTAZAPINE 15 MG TAB PO SCH (20:15)
[2024-04-25 07:33] VITALS: BP 131/70; PULSE 67; RESP 16; TEMP 97.2
[2024-04-25 07:50] LABS: Glucose,Whole Blood 170 mg/dL (70-110)
--- NOTE | 2024-04-25 11:23 | P.DS ---
Providers Date of admission: 04/18/24 22:34 Expected date of discharge: 04/25/24 Attending physician: Antwon Tolliver MD Consults: 04/18/24 22:37 Consult Physician Routine Consulting Provider: Telma Zimmerman Consult Reason/Comments: History and Physical Do you want consulting provider notified?: Yes Primary care physician: Stated None - Discharge Diagnosis(es) (1) Major depressive disorder without psychotic features Current Visit: Yes Status: Acute Priority: High (2) Borderline personality disorder Current Visit: Yes Status: Acute Priority: High (3) Cocaine use disorder, severe, dependence Current Visit: Yes Status: Acute Priority: High (4) Homelessness Current Visit: Yes Status: Acute Priority: Low (5) Noncompliance with medication regimen Current Visit: Yes Status: Acute Priority: Medium Hospital Course: Admission HPI: Admission note was completed by job specification writer" Patient presented to the hospital ED on 04/18. As per EPS note, "Patient presents in ER stating she was having suicidal ideation with plan and intent to jump off bridge. Patient states a car passing by stopped her and took her to ED. Patient states she has recent history of self inflicted injury including burning self. Patient shown burn josé miguel in stages of healing on right breast. Patient states she is worthless, life is not worth living, and she would be better off . Patient does not contract for safety and states if discharged she would jump off a bridge. Patient verbalizes being open with [facility], last seen 2 weeks ago. Patient verbalizes being noncompliant with medications in the last month because she does not want to take them. Patient states she has medical conditions including seizure disorder (Last 01/2024) and diabetes type 2 but denies other PMH. Upon review of chart patient PMH includes Asthma, COPD, Fibromyalgia, Hypertension, GERD, Osteoarthritis, and liver disease. Patient denies taking home medications and denies medical conditions to job specification writer at this time. Patient has guardian, [facility] public guardian. Guardian notified of patient in ED." Upon todays assessment, she states she was wanting to just and jump off the bridge, but a passerby stopped her and brought her to the hospital. She states she is tired of alf and rehab, and she just does not want to live anymore. She claims to not sleep, and claims her appetite is poor. Patient endorses suicidal ideations, no plan or intent (then stated if she did have a plan, she would not tell us), denies homicidal ideations intent or plan. At this time patient denies any auditory or visual hallucinations. Patient denies any flight of ideas racing thoughts. Patient states she does not use any drugs, alcohol or cigarettes, however, her drug screen was positive for cocaine. " Hospital course: Upon admission to the unit patient was directable and agreeable to commence treatment and signed adult voluntary form. Patient got along well with other patients on the unit and followed unit protocol. Patient was initially uncooperative however with time and treatment she eventually became more compliant with the medications and denied any side effects throughout hospital course. Patient was started on her home dose of Haldol D 50 mg IM, dose was given on 04/19 for psychosis and to help with compliance, next dose will be due in Q 3 weeks on 05/10 at [facility]. Remeron will be increased to dose of 30 mg nightly for anxiety/mood/sleep, Cymbalta 30 mg twice daily for mood/anxiety. Patient spoke of her stressors and engaged in therapy both group and individual. Patient was also seen by medical team for history and physical exam. patient was treated for a fungal skin infection on her abdomen with nystatin powder and silver cream however patient was not compliant with the treatment on most days. Throughout the course of the hospitalization patient gradually improved with regards to mood, anxiety, hallucinations, suicidal thoughts, sleep and returned back to their baseline level of functioning. On the day of discharge patient denied any suicidal or homicidal ideations intent or plan denied any auditory or visual hallucinations. Patient endorsed wanting to live for her health and her future. The patient denied any access to guns or weapons. Patient denied any paranoia and did not endorse any delusions. Patient does have a significant history of substance abuse and was counseled on abstaining from all substances including alcohol and marijuana. Patient will be discharged directly to alf for violation of her order. Patient was also counseled on the medications and need for regular compliance and was encouraged to follow-up with their outpatient appointment for mental health and also for primary care. Mental status exam: General Appearance: Patient appears to be overweight, short hair, wearing glasses, stated age is alert, pleasant, and cooperative. Patient is in no acute distress and has improved hygiene and grooming Behavior: Patient is calmly seated without any agitated behavior. Speech: Patient's speech is fluent and nonpressured. Mood/Affect: Patient reports their mood is "fine", affect is congruent Suicidality/Homicidality: Patient denies having any suicidal or homicidal ideation intent or plan. Perceptions: Patient denies any auditory or visual hallucinations. Though content/process: There is no evidence of any delusional thought content and thought process is linear and goal-directed. Memory and concentration: AOX3, grossly intact for the purposes of this session. Can spell "WORLD" backwards correctly. Judgment and insight: Chronically poor, however has improved with guarded prognosis Impression: Major depressive disorder, without psychotic features Borderline personality disorder Cocaine use disorder, severe homelessness non compliance with medication and treatment Plan: -Continue with discharge today as patient has improved and stabilized psychiatrically and is not currently an imminent threat to herself and/or others. Patient will remain at chronically elevated risk for harm to self and/or others due to her impulsivity and polysubstance abuse. -Continue medications: Haldol D 50 mg IM last dose given on 04/19, will be due in q. 21 days on 05/10 at [facility]. Remeron 30 mg nightly for anxiety/mood/sleep, Cymbalta 30 mg twice daily for mood/anxiety. -Patient was counseled on the need for medication compliance and appropriate follow-up at mental health and also primary care for medical issues. Patient verbalized understanding and agreed. -Social work to help coordinate patient's discharge today, she will be going directly to alf upon discharge from the unit. Social work also to arrange for patients follow up appointments with [facility] for psychiatric care along with follow up with primary care provider. -Patient counseled on abstaining from recreational drugs and marijuana and alcohol. Was informed/educated on the adverse effects on their physical and mental health. Patient verbally agreed and understood. -Patient was instructed to return to the hospital or seek immediate medical care if their psychiatric or medical symptoms do worsen or reoccur. Allergies Allergy/AdvReac Type Severity Reaction Status Date / Time Iodinated Contrast Media Allergy Anaphylaxis Verified 04/20/24 09:13 Iodinated Contrast Media - IV Dye lacosamide from Vimpat Allergy Anaphylaxis Verified 04/20/24 09:13 peanut Allergy Anaphylaxis Verified 04/20/24 09:13 Penicillins Allergy Anaphylaxis Verified 04/20/24 09:13 shellfish derived Allergy swelling Verified 04/20/24 09:13 all over body cephalexin monohydrate AdvReac Rash, Verified 04/20/24 09:13 From Keflex Nausea, Vomiting & Diarrhea trazodone AdvReac bp Verified 04/20/24 09:13 issues/dizziness Laboratory Results WBC 11.3 k/uL (3.8-10.6) H 04/20/24 09:57 RBC 4.89 m/uL (3.80-5.40) 04/20/24 09:57 Hgb 13.7 gm/dL (11.4-16.0) 04/20/24 09:57 Hct 42.1 % (34.0-46.0) 04/20/24 09:57 MCV 86.1 fL (80.0-100.0) 04/20/24 09:57 MCH 28.0 pg (25.0-35.0) 04/20/24 09:57 MCHC 32.5 g/dL (31.0-37.0) 04/20/24 09:57 RDW 14.6 % (11.5-15.5) 04/20/24 09:57 Plt Count 213 k/uL (150-450) 04/20/24 09:57 MPV 7.6 04/20/24 09:57 Neutrophils % 73 % 04/20/24 09:57 Lymphocytes % 17 % 04/20/24 09:57 Monocytes % 4 % 04/20/24 09:57 Eosinophils % 5 % 04/20/24 09:57 Basophils % 0 % 04/20/24 09:57 Neutrophils # 8.2 k/uL (1.3-7.7) H 04/20/24 09:57 Lymphocytes # 1.9 k/uL (1.0-4.8) 04/20/24 09:57 Monocytes # 0.5 k/uL (0-1.0) 04/20/24 09:57 Eosinophils # 0.6 k/uL (0-0.7) 04/20/24 09:57 Basophils # 0.0 k/uL (0-0.2) 04/20/24 09:57 Sodium 139 mmol/L (137-145) 04/20/24 09:57 Potassium 4.5 mmol/L (3.5-5.1) 04/20/24 09:57 Chloride 105 mmol/L (98-107) 04/20/24 09:57 Carbon Dioxide 25 mmol/L (22-30) 04/20/24 09:57 Anion Gap 9 mmol/L 04/20/24 09:57 BUN 7 mg/dL (7-17) 04/20/24 09:57 Creatinine 0.68 mg/dL (0.52-1.04) 04/20/24 09:57 Est GFR (CKD-EPI)AfAm >90 (>60 ml/min/1.73 sqM) 04/20/24 09:57 Est GFR (CKD-EPI)NonAf >90 (>60 ml/min/1.73 sqM) 04/20/24 09:57 Glucose 184 mg/dL (74-99) H 04/20/24 09:57 POC Glucose (mg/dL) 170 mg/dL (70-110) H 04/25/24 07:49 POC Glu Economic Analyst SALVATORE Nettie Ellis 04/25/24 07:[address] Glu mg/dL 232 mg/dL 04/20/24 09:57 Hemoglobin A1c 9.7 % (<=6.0) H 04/20/24 09:57 Calcium 9.2 mg/dL (8.4-10.2) 04/20/24 09:57 Total Bilirubin 0.3 mg/dL (0.2-1.3) 04/20/24 09:57 Conjugated Bilirubin 0.0 mg/dL (0.0-0.3) 04/20/24 09:57 Unconjugated Bilirubin 0.2 mg/dL (0.0-1.1) 04/20/24 09:57 Delta Bilirubin 0.1 mg/dL (0.0-0.2) 04/20/24 09:57 AST 46 U/L (14-36) H 04/20/24 09:57 ALT 37 U/L (4-34) H 04/20/24 09:57 Alkaline Phosphatase 100 U/L (38-126) 04/20/24 09:57 Total Protein 6.8 g/dL (6.3-8.2) 04/20/24 09:57 Albumin 3.7 g/dL (3.5-5.0) 04/20/24 09:57 Triglycerides 225.00 mg/dL (0.00-149.00) H 04/20/24 09:57 Cholesterol 183.00 mg/dL (0.00-200.00) 04/20/24 09:57 LDL Cholesterol, Calc 93.1 mg/dL (0.0-131.0) 04/20/24 09:57 VLDL Cholesterol, Calc 45.00 mg/dL (5.00-40.00) H 04/20/24 09:57 HDL Cholesterol 44.90 mg/dL (40.00-60.00) 04/20/24 09:57 Cholesterol/HDL Ratio 4.08 Ratio 04/20/24 09:57 TSH 1.620 mIU/L (0.465-4.680) 04/20/24 09:57 Urine Opiates Screen Not Detected (NotDetected) 04/18/24 21:17 Ur Oxycodone Screen Not Detected (NotDetected) 04/18/24 21:17 Urine Methadone Screen Not Detected (NotDetected) 04/18/24 21:17 Ur Barbiturates Screen Not Detected (NotDetected) 04/18/24 21:17 U Tricyclic Antidepress Not Detected (NotDetected) 04/18/24 21:17 Ur Phencyclidine Scrn Not Detected (NotDetected) 04/18/24 21:17 Ur Amphetamines Screen Not Detected (NotDetected) 04/18/24 21:17 U Methamphetamines Scrn Not Detected (NotDetected) 04/18/24 21:17 U Benzodiazepines Scrn Not Detected (NotDetected) 04/18/24 21:17 Urine Cocaine Screen Detected (NotDetected) H 04/18/24 21:17 U Marijuana (THC) Screen Not Detected (NotDetected) 04/18/24 21:17 SARS-CoV-2 (PCR) Not Detected (Not Detectd) 04/18/24 21:17 Vital Signs Temp 97.2 F L 04/25/24 06:37 Pulse 67 04/25/24 06:37 Resp 16 04/25/24 06:37 BP 131/70 04/25/24 06:37 Pulse Ox 97 04/25/24 06:37 FiO2 Patient Condition at Discharge: Stable Plan - Discharge Summary Discharge Rx Participant: Yes New Discharge Prescriptions: New DULoxetine HCL [Cymbalta] 30 mg PO BID 30 Days #60 cap Nystatin 100,000 Unit/gm Powd [Mycostatin Powder] 1 applic TOPICAL TID 30 Days #1 each Insulin Detemir (Levemir) [Levemir] 20 unit SQ DAILY@0700 each Melatonin 6 mg PO HS 30 Days #60 tab INSULIN ASPART (NovoLOG) [NovoLOG (formulary)] 0 unit SQ ACHS each Mirtazapine [Remeron] 30 mg PO HS 30 Days #60 tab metFORMIN HCL [Glucophage] 1,000 mg PO BID-W/MEALS 30 Days #60 tab SILVER sulfADIAZINE CREAM [Silvadene Cream] 1 applic TOPICAL BID 30 Days #1 each Continue Benzonatate [Tessalon Perles] 100 mg PO TID PRN #9 capsule PRN Reason: Cough Naltrexone HCl [Revia] 50 mg PO DAILY 30 Days #30 tab Aspirin 81 mg PO DAILY 30 Days #30 tab Atorvastatin Calcium [Lipitor] 40 mg PO HS 30 Days #30 tab lisinopriL [Zestril] 2.5 mg PO DAILY 30 Days #30 tab Changed Haloperidol Decanoate [Haldol D] 50 mg IM Q21D #1 each Discontinued polyethylene glycoL 3350 [Miralax] 17 gm PO DAILY PRN PRN Reason: Constipation Melatonin 5 mg PO HS PRN PRN Reason: sleep metFORMIN HCL ER [Glucophage XR] 500 mg PO BID fluvoxaMINE MALEATE [Luvox CR] 150 mg PO DAILY Isosorbide Mononitrate ER [Imdur] 15 mg PO DAILY Loperamide [Imodium] 2 mg PO QID PRN #12 capsule PRN Reason: Diarrhea Ondansetron Odt [Zofran Odt] 4 mg PO Q8HR PRN #20 tab PRN Reason: Nausea Discharge Medication List Benzonatate [Tessalon Perles] 100 mg PO TID PRN #9 capsule 04/13/24 [Rx] Aspirin 81 mg PO DAILY 30 Days #30 tab 04/25/24 [Rx] Atorvastatin Calcium [Lipitor] 40 mg PO HS 30 Days #30 tab 04/25/24 [Rx] DULoxetine HCL [Cymbalta] 30 mg PO BID 30 Days #60 cap 04/25/24 [Rx] Haloperidol Decanoate [Haldol D] 50 mg IM Q21D #1 each 04/25/24 [Rx] INSULIN ASPART (NovoLOG) [NovoLOG (formulary)] 0 unit SQ ACHS each 04/25/24 [Rx] Insulin Detemir (Levemir) [Levemir] 20 unit SQ DAILY@0700 each 04/25/24 [Rx] Melatonin 6 mg PO HS 30 Days #60 tab 04/25/24 [Rx] Mirtazapine [Remeron] 30 mg PO HS 30 Days #60 tab 04/25/24 [Rx] Naltrexone HCl [Revia] 50 mg PO DAILY 30 Days #30 tab 04/25/24 [Rx] Nystatin 100,000 Unit/gm Powd [Mycostatin Powder] 1 applic TOPICAL TID 30 Days #1 each 04/25/24 [Rx] SILVER sulfADIAZINE CREAM [Silvadene Cream] 1 applic TOPICAL BID 30 Days #1 each 04/25/24 [Rx] lisinopriL [Zestril] 2.5 mg PO DAILY 30 Days #30 tab 04/25/24 [Rx] metFORMIN HCL [Glucophage] 1,000 mg PO BID-W/MEALS 30 Days #60 tab 04/25/24 [Rx] Follow up Appointment(s)/Referral(s): [facility] [NON-STAFF] - 1 Week Patient Instructions/Handouts: Depression (DC), Polysubstance Abuse (ED) Activity/Diet/Wound Care/Special Instructions: [facility] Discharge Info Avoid the use of street drugs and alcohol. Take all medications as prescribed. When you are in need of refills on your medications, please contact your outpatient medical provider and/or outpatient psychiatrist. Please go to your scheduled outpatient appointments for aftercare treatment. If symptoms return or become worse, call the crisis line at or and/or visit the nearest emergency room for assistance. National Suicide and Crisis Lifeline - call or text 098. Discharge Disposition: DC/TRANSFER COURT/LAW
[2024-04-25 12:41] LABS: Glucose,Whole Blood 187 mg/dL (70-110)
== END 2024-04-25 15:07 | DRG 751 ==
LOC: EC 19:06 → 3MHU 22:34
PROVIDERS: ADMIT Psychiatry & Neurology Psychiatry; ATTEND Psychiatry & Neurology Psychiatry
DX: F32.2 Major depressive disorder, single episode, severe without psychotic features (principal); I10 Essential (primary) hypertension; K21.9 Gastro-esophageal reflux disease without esophagitis; M15.9 Polyosteoarthritis, unspecified; K76.9 Liver disease, unspecified; R45.851 Suicidal ideations; E11.65 Type 2 diabetes mellitus with hyperglycemia; Z79.4 Long term (current) use of insulin; Z79.84 Long term (current) use of oral hypoglycemic drugs; Z87.891 Personal history of nicotine dependence; D57.3 Sickle-cell trait; E78.5 Hyperlipidemia, unspecified; F14.20 Cocaine dependence, uncomplicated; F41.9 Anxiety disorder, unspecified; F60.3 Borderline personality disorder; I50.9 Heart failure, unspecified; I11.0 Hypertensive heart disease with heart failure; G40.909 Epilepsy, unspecified, not intractable, without status epilepticus; J44.89 Other specified chronic obstructive pulmonary disease; K50.90 Crohn's disease, unspecified, without complications; K74.60 Unspecified cirrhosis of liver; M41.9 Scoliosis, unspecified; B37.9 Candidiasis, unspecified; G89.29 Other chronic pain; M54.2 Cervicalgia; L40.9 Psoriasis, unspecified; R21 Rash and other nonspecific skin eruption; F81.9 Developmental disorder of scholastic skills, unspecified; B36.9 Superficial mycosis, unspecified; G43.909 Migraine, unspecified, not intractable, without status migrainosus; M79.7 Fibromyalgia; T21.31XA Burn of third degree of chest wall, initial encounter; Z56.0 Unemployment, unspecified; Z59.00 Homelessness unspecified; Z79.82 Long term (current) use of aspirin; Z79.899 Other long term (current) drug therapy; Z86.32 Personal history of gestational diabetes; Z90.721 Acquired absence of ovaries, unilateral; Z91.148 Patient's other noncompliance with medication regimen for other reason; Z91.199 Patient's noncompliance with other medical treatment and regimen due to unspecified reason; Z88.1 Allergy status to other antibiotic agents; Z91.041 Radiographic dye allergy status; Z88.5 Allergy status to narcotic agent; Z88.0 Allergy status to penicillin; Z91.013 Allergy to seafood
CPT/HCPCS: 36415; 80053; 80061; 80306; 82075; 82248; 83036; 84443; 85025; 87635; 99285

== ENCOUNTER 2024-06-10 22:36 | Emergency (ER) | payer OTHER ==
--- NOTE | 2024-06-10 22:56 | ED ---
Skin/Abscess/FB HPI - General Source: patient, RN notes reviewed Mode of arrival: ambulatory Limitations: no limitations - History of Present Illness Onset/Timin -: days(s) <Catalino Love - Last Filed: 06/10/24 22:53> - General Source: RN notes reviewed <Lorenza Elizabeth - Last Filed: 06/11/24 01:48> - General Stated complaint: Rash Time Seen by Provider: 06/10/24 22:54 - History of Present Illness Initial comments: Quick note: This is a 44-year-old female with significant medical history including DM and heart failure presenting with rash x 7 days and low back pain x 3 days. Patient states she is unable to care for herself and is essentially homeless, preventing her from properly caring and bathing for self which caused a bilateral inguinal rash to develop. Patient endorses strong smell associated with rash. Patient states her public guardian's had been "neglecting" her and "taking her SSI" funds. Patient is requesting assistance from Adult Protective Services. Patient also mentions lower back pain x 3 days with history of lower back injury. (Catalino Love) 44-year-old female with past medical history of DM and CHF presenting with rash x 7 days. Reports she has a red, itchy rash in the skin fold between her thigh and abdomen. States she believes she developed this because she has been homeless for the past few days after getting out of group home, and has been unable to bathe herself. States the rash has a strong odor. Also reports earlier today she fell down a flight of stairs, landing on her lower back. Denies head injury or loss of consciousness. She is able to ambulate without difficulties. Denies bowel or bladder incontinence. Denies numbness, tingling, weakness of the bilateral lower extremities. (Lorenza Elizabeth) - Related Data Previous Rx's Medication Instructions Recorded Benzonatate [Tessalon Perles] 100 mg PO TID PRN #9 capsule 04/13/24 Aspirin 81 mg PO DAILY 30 Days #30 tab 04/25/24 Atorvastatin Calcium [Lipitor] 40 mg PO HS 30 Days #30 tab 04/25/24 DULoxetine HCL [Cymbalta] 30 mg PO BID 30 Days #60 cap 04/25/24 Haloperidol Decanoate [Haldol D] 50 mg IM Q21D #1 each 04/25/24 INSULIN ASPART (NovoLOG) [NovoLOG 0 unit SQ ACHS each 04/25/24 (formulary)] Insulin Detemir (Levemir) [Levemir] 20 unit SQ DAILY@0700 each 04/25/24 Melatonin 6 mg PO HS 30 Days #60 tab 04/25/24 Mirtazapine [Remeron] 30 mg PO HS 30 Days #60 tab 04/25/24 Naltrexone HCl [Revia] 50 mg PO DAILY 30 Days #30 tab 04/25/24 Naltrexone HCl [Revia] 50 mg PO DAILY 30 Days #30 tab 04/25/24 Nystatin 100,000 Unit/gm Powd 1 applic TOPICAL TID 30 Days #1 04/25/24 [Mycostatin Powder] each SILVER sulfADIAZINE CREAM 1 applic TOPICAL BID 30 Days #1 04/25/24 [Silvadene Cream] each lisinopriL [Zestril] 2.5 mg PO DAILY 30 Days #30 tab 04/25/24 metFORMIN HCL [Glucophage] 1,000 mg PO BID-W/MEALS 30 Days 04/25/24 #60 tab Ketoconazole 2% Cream [Nizoral 2%] 1 applic TOPICAL DAILY 7 Days #30 06/11/24 gm Nystatin 100,000Unit/gm Cream 1 applic TOPICAL BID #15 gram 06/11/24 [Mycostatin Cream] Allergies Allergy/AdvReac Type Severity Reaction Status Date / Time Iodinated Contrast Media Allergy Anaphylaxis Verified 06/11/24 00:00 [Iodinated Contrast Media - IV Dye] lacosamide [From Vimpat] Allergy Anaphylaxis Verified 06/11/24 00:00 peanut Allergy Anaphylaxis Verified 06/11/24 00:00 Penicillins Allergy Anaphylaxis Verified 06/11/24 00:00 shellfish derived Allergy swelling Verified 06/11/24 00:00 all over body cephalexin monohydrate AdvReac Rash, Verified 06/11/24 00:00 [From Keflex] Nausea, Vomiting & Diarrhea trazodone AdvReac bp Verified 06/11/24 00:00 issues/dizziness Review of Systems ROS Other: All systems not noted in ROS Statement are negative. <Catalino Love - Last Filed: 06/10/24 22:53> ROS Other: All systems not noted in ROS Statement are negative. <Lorenza Elizabeth - Last Filed: 06/11/24 01:48> ROS Statement: Those systems with pertinent positive or pertinent negative responses have been documented in the HPI. Past Medical History Past Medical History: Asthma, Heart Failure, COPD, Diabetes Mellitus, Fibromyalgia, GERD/Reflux, GI Bleed, Hypertension, Liver Disease, Osteoarthritis (OA), Pneumonia, Seizure Disorder, Skin Disorder Additional Past Medical History / Comment(s): Bronchitis, gestational diabetes, seizures with last one 01/2024, sickle cell trait, liver cirrhosis, anemia, chrons, IBS, ulcerative colitis, lowr GI bleed, hemorrhoids, constipation, psoriasis, migraines, chronic low back and cervical pain, scoliosis, arhtritis in multiple joints, gout bilateral feet, History of Any Multi-Drug Resistant Organisms: None Reported Past Surgical History: Cholecystectomy, Orthopedic Surgery Additional Past Surgical History / Comment(s): L oophorectomy d/t cyst, D&C, colonoscopy, L carpal tunnel release, Past Anesthesia/Blood Transfusion Reactions: Motion Sickness, Postoperative Nausea & Vomiting (PONV) Past Psychological History: Anxiety, Bipolar, Depression, Schizophrenia Additional Psychological History / Comment(s): Personality Disorder. She is seen at [facility]. Pt has a learning disability and can read some. She has a [facility] public legal guardian. Smoking Status: Former smoker Past Alcohol Use History: None Reported Additional Past Alcohol Use History / Comment(s): Pt states she has not drank alcohol in 15 years. Past Drug Use History: Cocaine - Past Family History Mother History Unknown: Yes Family Medical History: Cancer Additional Family Medical History / Comment(s): Mother had breast cancer and metnal illness She is living. Father Family Medical History: Cancer Additional Family Medical History / Comment(s): Father is . He had agent orange exposure. He had liver cancer, bowel to brain cancer. <Catalino Love - Last Filed: 06/10/24 22:53> General Exam <Catalino Love - Last Filed: 06/10/24 22:53> General appearance: alert, in no apparent distress Head exam: Present: atraumatic, normocephalic, normal inspection Eye exam: Present: normal appearance, PERRL, EOMI. Absent: scleral icterus, conjunctival injection, periorbital swelling Respiratory exam: Present: normal lung sounds bilaterally. Absent: respiratory distress, wheezes, rales, rhonchi, stridor Cardiovascular Exam: Present: regular rate, normal rhythm, normal heart sounds. Absent: systolic murmur, diastolic murmur, rubs, gallop, clicks GI/Abdominal exam: Present: soft, normal bowel sounds, other (Erythema between bilateral inguinal skin folds). Absent: distended, tenderness, guarding, rebound, rigid Extremities exam: Present: normal inspection, full ROM, normal capillary refill. Absent: tenderness, pedal edema, joint swelling, calf tenderness Back exam: Present: normal inspection, full ROM. Absent: tenderness, CVA tenderness (R), CVA tenderness (L), muscle spasm, paraspinal tenderness, vertebral tenderness Neurological exam: Present: alert, oriented X3, CN II-XII intact Psychiatric exam: Present: normal affect, normal mood Skin exam: Present: warm, dry, intact, normal color. Absent: rash <Lorenza Elizabeth - Last Filed: 06/11/24 01:48> - General Exam Comments Initial Comments: Visual Physical Exam Vital signs reviewed General: Well-appearing, nontoxic, no acute distress. Head: Normocephalic, atraumatic Eyes: PERRLA, EOMI ENT: Airway patent Chest: Nonlabored breathing Skin: No visual rash, normal skin tone Neuro: Alert and oriented 3 Musculoskeletal: No gross abnormalities (Catalino Love) Course Vital Signs 06/10/24 23:53 Temperature 98.8 F Pulse Rate 82 Respiratory 18 Rate Blood Pressure 147/87 O2 Sat by Pulse 96 Oximetry Medical Decision Making <Catalino Love - Last Filed: 06/10/24 22:53> <Lorenza Elizabeth - Last Filed: 06/11/24 01:48> - Medical Decision Making I completed the quick note portion of this chart signed SHELBY Brock (Catalino Love) Was pt. sent in by a medical professional or institution (CLIF Ramirez, GUEST EXPERIENCE SPECIALIST, urgent care, hospital, or fdc...) When possible be specific @ -No Did you speak to anyone other than the patient for history (EMS, parent, family, police, friend...)? What history was obtained from this source @ -No Did you review nursing and triage notes (agree or disagree)? Why? @ -I reviewed and agree with nursing and triage notes Were old charts reviewed (outside hosp., previous admission, EMS record, old EKG, old radiological studies, urgent care reports/EKG's, fdc records)? Report findings @ -No old charts were reviewed Differential Diagnosis (chest pain, altered mental status, abdominal pain women, abdominal pain men, vaginal bleeding, weakness, fever, dyspnea, syncope, headache, dizziness, GI bleed, back pain, seizure, CVA, palpatations, mental health, musculoskeletal)? @ -Intertrigo, cellulitis, contact dermatitis, abscess, differential Musculoskeletal Muscular strain, contusion, ligament sprain, fracture, arthritis, septic arthritis, bursitis, cellulitis, muscle spasm, nerve compression, DVT, arterial occlusion, herpes zoster, electrolyte abnormality, tumor.... This is not meant to be in all inclusive list EKG interpreted by me (3pts min.). @ -None X-rays interpreted by me (1pt min.). @ -X-ray lumbar spine interpreted by me reveals no acute process CT interpreted by me (1pt min.). @ -None done U/S interpreted by me (1pt. min.). @ -None done What testing was considered but not performed or refused? (CT, X-rays, U/S, labs)? Why? @ -None What meds were considered but not given or refused? Why? @ -None Did you discuss the management of the patient with other professionals (professionals i.e. , PA, GUEST EXPERIENCE SPECIALIST, lab, RT, psych nurse, social work case manager, dean for student affairs, teacher, commissioned security officer, lining caser)? Give summary @ -No Was smoking cessation discussed for >3mins.? @ -No Was critical care preformed (if so, how long)? @ -No Were there social determinants of health that impacted care today? How? (Homelessness, low income, unemployed, alcoholism, drug addiction, transportation, low edu. Level, literacy, decrease access to med. care, group home, rehab)? @ -No Was there de-escalation of care discussed even if they declined (Discuss DNR or withdrawal of care, Hospice)? DNR status @ -No What co-morbidities impacted this encounter? (DM, HTN, Smoking, COPD, CAD, Cancer, CVA, ARF, Chemo, Hep., AIDS, mental health diagnosis, sleep apnea, morbid obesity)? @ -None Was patient admitted / discharged? Hospital course, mention meds given and route, prescriptions, significant lab abnormalities, going to OR and other [place] [facility] info. @ -Discharge. This is a 44-year-old female presenting for rash x 7 days on bilateral inguinal skin folds. Also was endorsing some lower back pain from a fall down steps earlier today. No red flag symptoms. Vital signs within acceptable limits. Neurovascularly intact. Discussed diagnosis of intertrigo. Prescribed nystatin cream and ketoconazole. Supportive care discussed. Lumbar spine x-ray interpreted by me reveals no acute process. Negative results discussed with patient. Case was discussed with my ED attending Dr. Reyes. Patient discharged in stable condition. Undiagnosed new problem with uncertain prognosis? @ -No Drug Therapy requiring intensive monitoring for toxicity (Heparin, Nitro, Insulin, Cardizem)? @ -No Were any procedures done? @ -No Diagnosis/symptom? @ -Intertrigo, low back strain Acute, or Chronic, or Acute on Chronic? @ -Acute Uncomplicated (without systemic symptoms) or Complicated (systemic symptoms)? @ -Uncomplicated Side effects of treatment? @ -No Exacerbation, Progression, or Severe Exacerbation? @ -No Poses a threat to life or bodily function? How? (Chest pain, [place], [place], pneumonia, PE, COPD, DKA, ARF, appy, cholecystitis, CVA, Diverticulitis, Homicidal, Suicidal, threat to staff... and all critical care pts) @ -No (Lorenza Elizabeth) Disposition <Catalino Love - Last Filed: 06/10/24 22:53> Is patient prescribed a controlled substance at d/c from ED?: No Time of Disposition: 01:39 <Lorenza Elizabeth - Last Filed: 06/11/24 01:48> Clinical Impression: Intertrigo, Low back strain Disposition: HOME SELF-CARE Condition: Stable Instructions (If sedation given, give patient instructions): Skin Yeast Infection (ED) Additional Instructions: Please return to the Emergency Department if symptoms worsen or any other concerns. Prescriptions: Nystatin 100,000Unit/gm Cream [Mycostatin Cream] 1 applic TOPICAL BID #15 gram Ketoconazole 2% Cream [Nizoral 2%] 1 applic TOPICAL DAILY 7 Days #30 gm Referrals: None,Stated [Primary Care Provider] - 1-2 days
[2024-06-11] VITALS: RESP 18
--- NOTE | 2024-06-11 01:51 | XR ---
EXAM: XR Lumbosacral Spine, 2 or 3 Views CLINICAL HISTORY: ITS.REASON XR Reason: Low back pain TECHNIQUE: Frontal and lateral views of the lumbar spine and sacrum. COMPARISON: No relevant prior studies available. FINDINGS: Vertebrae: No acute fracture. Minimal dexterous scoliosis. Minimal retrolisthesis of L2 on L3 and L3 on L4. Disc spaces: Multilevel disc height loss prominent from L3-S1. Soft tissues: Unremarkable. IMPRESSION: No acute findings.
[2024-06-11 02:32] VITALS: BP 129/84; PULSE 72; TEMP 98.9
== END 2024-06-11 02:32 | disposition home or self-care (01) ==
LOC: EC 22:36
DX: S39.012A Strain of muscle, fascia and tendon of lower back, initial encounter (principal); L30.4 Erythema intertrigo; Z87.891 Personal history of nicotine dependence; Z91.041 Radiographic dye allergy status; Z88.8 Allergy status to other drugs, medicaments and biological substances; Z91.010 Allergy to peanuts; Z88.0 Allergy status to penicillin; Z91.013 Allergy to seafood; Z88.1 Allergy status to other antibiotic agents; W10.9XXA Fall (on) (from) unspecified stairs and steps, initial encounter
CPT/HCPCS: 72100; 99282

== ENCOUNTER 2024-06-14 15:57 | Inpatient (IN) | payer MEDICAID, OTHER ==
[2024-06-14 17:45] LABS: Amphetamine Screen,Urine Not Detected (NotDetected); Barbiturate Screen,Urine Not Detected (NotDetected); Benzodiazepines Screen,Urine Not Detected (NotDetected); Cocaine Screen,Urine Detected (NotDetected); Methadone Screen, Urine Not Detected (NotDetected); Opiate Screen,Urine Not Detected (NotDetected); Oxycodone Screen, Urine Not Detected (NotDetected); Phencyclidine Screen,Urine Not Detected (NotDetected); Tricyclic Antidepressant,Urine Not Detected (NotDetected); Urn Cannabinoid Scrn Not Detected (NotDetected)
--- NOTE | 2024-06-14 18:20 | ED ---
Psych HPI - General Chief Complaint: Psychiatric Symptoms Stated Complaint: mental health Time Seen by Provider: 06/14/24 16:17 Source: patient, RN notes reviewed Mode of arrival: ambulatory - History of Present Illness Initial Comments: 44-year-old female presenting to the ER with chief complaint of suicidal ideation. Patient states she is currently living with her family and is very unhappy about the conditions while living there. States this was causing her to have suicidal ideations. Reports she walked to the edge of a bridge today and intended to jump, however was stopped by someone in a car passing by and was driven to the ER. States she either wants to jump off a bridge or put a rope around her neck to kill herself. Admits she does have previous suicide attempts and psychiatric hospitalizations. Patient states she has been off of her meds for a long time. No medical complaints at this time. - Related Data Home Medications Medication Instructions Recorded Confirmed Haloperidol Decanoate [Haldol D] 50 mg IM Q28D 06/14/24 06/14/24 Ondansetron Odt [Zofran ODT] 4 mg PO Q8H PRN 06/14/24 06/14/24 fluvoxaMINE MALEATE [Luvox CR] 150 mg PO DAILY 06/14/24 06/14/24 Previous Rx's Medication Instructions Recorded Naltrexone HCl [Revia] 50 mg PO DAILY 30 Days #30 tab 04/25/24 Allergies Allergy/AdvReac Type Severity Reaction Status Date / Time Iodinated Contrast Media Allergy Anaphylaxis Verified 06/14/24 18:14 [Iodinated Contrast Media - IV Dye] lacosamide [From Vimpat] Allergy Anaphylaxis Verified 06/14/24 18:14 peanut Allergy Anaphylaxis Verified 06/14/24 18:14 Penicillins Allergy Anaphylaxis Verified 06/14/24 18:14 shellfish derived Allergy swelling Verified 06/14/24 18:14 all over body cephalexin monohydrate AdvReac Rash, Verified 06/14/24 18:14 [From Keflex] Nausea, Vomiting & Diarrhea trazodone AdvReac bp Verified 06/14/24 18:14 issues/dizziness Review of Systems ROS Statement: Those systems with pertinent positive or pertinent negative responses have been documented in the HPI. ROS Other: All systems not noted in ROS Statement are negative. Past Medical History Past Medical History: Asthma, Heart Failure, COPD, Diabetes Mellitus, Fibromyalgia, GERD/Reflux, GI Bleed, Hypertension, Liver Disease, Osteoarthritis (OA), Pneumonia, Seizure Disorder, Skin Disorder Additional Past Medical History / Comment(s): Bronchitis, gestational diabetes, seizures with last one 01/2024, sickle cell trait, liver cirrhosis, anemia, chrons, IBS, ulcerative colitis, lowr GI bleed, hemorrhoids, constipation, psoriasis, migraines, chronic low back and cervical pain, scoliosis, arhtritis in multiple joints, gout bilateral feet, History of Any Multi-Drug Resistant Organisms: None Reported Past Surgical History: Cholecystectomy, Orthopedic Surgery Additional Past Surgical History / Comment(s): L oophorectomy d/t cyst, D&C, colonoscopy, L carpal tunnel release, Past Anesthesia/Blood Transfusion Reactions: Motion Sickness, Postoperative Javad sea & Vomiting (PONV) Past Psychological History: Anxiety, Bipolar, Depression, Schizophrenia Smoking Status: Former smoker Past Alcohol Use History: None Reported Past Drug Use History: Cocaine - Past Family History Mother History Unknown: Yes Family Medical History: Cancer Additional Family Medical History / Comment(s): Mother had breast cancer and metnal illness She is living. Father Family Medical History: Cancer Additional Family Medical History / Comment(s): Father is . He had agent orange exposure. He had liver cancer, bowel to brain cancer. General Exam Limitations: no limitations General appearance: alert, in no apparent distress Neurological exam: Present: alert, oriented X3, CN II-XII intact Psychiatric exam: Present: normal affect, normal mood, suicidal ideation. Absent: homicidal ideation Skin exam: Present: warm, dry, intact, normal color. Absent: rash Course Vital Signs 06/14/24 15:58 Temperature 98.4 F Pulse Rate 75 Respiratory 18 Rate Blood Pressure 118/69 O2 Sat by Pulse 96 Oximetry Medical Decision Making - Medical Decision Making Was pt. sent in by a medical professional or institution (, PA, GOLF CLUB MAKER, urgent care, hospital, or care home...) When possible be specific @ -No Did you speak to anyone other than the patient for history (EMS, parent, family, police, friend...)? What history was obtained from this source @ -No Did you review nursing and triage notes (agree or disagree)? Why? @ -I reviewed and agree with nursing and triage notes Were old charts reviewed (outside hosp., previous admission, EMS record, old EKG, old radiological studies, urgent care reports/EKG's, care home records)? Report findings @ -No old charts were reviewed Differential Diagnosis (chest pain, altered mental status, abdominal pain women, abdominal pain men, vaginal bleeding, weakness, fever, dyspnea, syncope, headache, dizziness, GI bleed, back pain, seizure, CVA, palpatations, mental health, musculoskeletal)? @ -Differential Mental Health Depression, anxiety, bipolar, psychosis, schizophrenia, borderline personality, situational depression, adjustment disorder, behavioral disorder, brain tumor, malingering, substance abuse, encephalopathy, medication reaction, dementia, hypothyroidism, degenerative neurologic disorder, lupus.... This is not meant to be all-inclusive list EKG interpreted by me (3pts min.). @ -None X-rays interpreted by me (1pt min.). @ -None done CT interpreted by me (1pt min.). @ -None done U/S interpreted by me (1pt. min.). @ -None done What testing was considered but not performed or refused? (CT, X-rays, U/S, labs)? Why? @ -None What meds were considered but not given or refused? Why? @ -None Did you discuss the management of the patient with other professionals (professionals i.e. , PA, GOLF CLUB MAKER, lab, RT, psych nurse, manager social, ict help desk technician, teacher, mortgage loan officer, classification case manager)? Give summary @ -I spoke with EPS who recommends inpatient psychiatric admission for suicidal ideation Was smoking cessation discussed for >3mins.? @ -No Was critical care preformed (if so, how long)? @ -No Were there social determinants of health that impacted care today? How? (Homelessness, low income, unemployed, alcoholism, drug addiction, transportation, low edu. Level, literacy, decrease access to med. care, fdc, rehab)? @ -No Was there de-escalation of care discussed even if they declined (Discuss DNR or withdrawal of care, Hospice)? DNR status @ -No What co-morbidities impacted this encounter? (DM, HTN, Smoking, COPD, CAD, Cancer, CVA, ARF, Chemo, Hep., AIDS, mental health diagnosis, sleep apnea, morbid obesity)? @ -None Was patient admitted / discharged? Hospital course, mention meds given and route, prescriptions, significant lab abnormalities, going to OR and other pertinent info. @ -Admitted. This is a 44-year-old female presenting with suicidal ideation. Patient states she is unhappy with her living conditions and attempted to jump off a bridge today however was stopped by a bypass her and driven to the ER. No medical complaints at this time. Patient is medically cleared to be seen by EPS. I spoke with EPS who recommends inpatient psychiatric admission for suicidal ideation. Patient is agreeable and agrees to sign herself in. Case was discussed with my ED attending Dr. Mitchell. Undiagnosed new problem with uncertain prognosis? @ -No Drug Therapy requiring intensive monitoring for toxicity (Heparin, Nitro, Insulin, Cardizem)? @ -No Were any procedures done? @ -No Diagnosis/symptom? @ -Suicidal ideation Acute, or Chronic, or Acute on Chronic? @ -Acute Uncomplicated (without systemic symptoms) or Complicated (systemic symptoms)? @ -Uncomplicated Side effects of treatment? @ -No Exacerbation, Progression, or Severe Exacerbation? @ -No Poses a threat to life or bodily function? How? (Chest pain, [place], [place], pneumonia, PE, COPD, DKA, ARF, appy, cholecystitis, CVA, Diverticulitis, Homicidal, Suicidal, threat to staff... and all critical care pts) @ -Yes, suicidal - Lab Data Lab Results 06/14/24 06/14/24 Range/Units 17:16 18:22 POC Glucose (mg/dL) 193 H (70-110) mg/dL POC Glu [facility] Director ID Bienvenido Ernandez Urine Opiates Screen Not Detected (NotDetected) Ur Oxycodone Screen Not Detected (NotDetected) Urine Methadone Screen Not Detected (NotDetected) Ur Barbiturates Screen Not Detected (NotDetected) U Tricyclic Antidepress Not Detected (NotDetected) Ur Phencyclidine Scrn Not Detected (NotDetected) Ur Amphetamines Screen Not Detected (NotDetected) U Methamphetamines Scrn Not Detected (NotDetected) U Benzodiazepines Scrn Not Detected (NotDetected) Urine Cocaine Screen Detected H (NotDetected) U Marijuana (THC) Screen Not Detected (NotDetected) Disposition Clinical Impression: Suicidal ideation Disposition: ADMITTED IP TO THIS HOSP Referrals: None,Stated [Primary Care Provider] - 1-2 days Time of Disposition: 18:37
[2024-06-14 18:23] LABS: Glucose,Whole Blood 193 mg/dL (70-110)
[2024-06-14] MEDS ORDERED: MAGNESIUM HYDROXIDE 2,400 MG/30 ML CUP PO PRN (19:10)
[2024-06-14] MEDS ORDERED: LORazepam 2 MG/ML INJ IM PRN (19:13)
[2024-06-14] MEDS ORDERED: haloperidoL 5 MG TAB PO PRN (19:13)
[2024-06-14] MEDS ORDERED: HALOPERIDOL LACTATE 5 MG/ML 1 ML VIAL IM PRN (19:13)
[2024-06-14 21:45] LABS: Glucose,Whole Blood 239 mg/dL (70-110)
[2024-06-14] MEDS: INSULIN ASPART (NovoLOG) 100 UNIT/ML VIAL SQ SCH (21:45)
--- NOTE | 2024-06-14 22:43 | P.MDCNMH ---
<Chandana Vega - Last Filed: 06/14/24 22:50> History of Present Illness H&P Date: 06/14/24 History of present illness; 44-year-old female presented to the emergency department suicidal ideation. States that she currently lives at home with her family and she is unhappy with the conditions which she is living. Was found having been on the edge of a bridge contemplating jumping. States that she wants to jump off a bridge to kill herself, or put a rope around her neck. She endorses previous suicide attempts. She denies history of alcohol use, marijuana use or a history of recreational drug use. She does endorse a history of smoking, although did not share details. She currently has no active medical complaints, however her nurse notified about some redness in her abdominal fold. REVIEW OF SYSTEMS: All systems reviewed, pertinent positives and negatives noted in HPI. All other symptoms are negative. PHYSICAL EXAMINATION: Vitals reviewed GENERAL: No acute distress. Well developed, well nourished. HEENT: Pupils are round and equally reacting to light. EOMI. No scleral icterus. Normocephalic, atraumatic. No pharyngeal erythema. No thyromegaly. CARDIOVASCULAR: S1 and S2 present. No murmurs, rubs, or gallops. PULMONARY: Chest is clear to auscultation, no wheezing, rhonchi, or crackles. MUSCULOSKELETAL: No apparent joint swelling and deformities. EXTREMITIES: No apparent cyanosis, clubbing, or pedal edema. NEUROLOGICAL: The patient is alert and oriented x3, Gross neurological examination did not reveal any focal deficits. 5/5 strength bilateral UE and LE; CN2-12 intact, without gross abnormality. SKIN: Redness noted in the abdominal fold. Assessment and plan 44-year-old female presented to the emergency department suicidal ideation. States that she currently lives at home with her family and she is unhappy with the conditions which she is living. Was found having been on the edge of a bridge contemplating jumping. Chronic Medical Conditions #Diabetes mellitus, type 2 Begin Accu-Cheks and low-dose sliding scale, monitor for hypoglycemia Start Levemir 20 units in the am - On Novolog medium dose scale Pending HbA1c #Possible cedrick infection of the abdominal fold -Begin Nystatin topical cream #History of nicotine dependence - Continue nicotine 14mg/24h patch #Suicidal ideation -Psychological medications per the primary psychiatry team Code status: Full code Patient is stable from medical stand point Dictation was produced using [employer] dictation software. Please excuse any grammatical, word or spelling errors. Past Medical History Past Medical History: Asthma, Heart Failure, COPD, Diabetes Mellitus, Fibromyalgia, GERD/Reflux, GI Bleed, Hypertension, Liver Disease, Osteoarthritis (OA), Pneumonia, Seizure Disorder, Skin Disorder Additional Past Medical History / Comment(s): Bronchitis, gestational diabetes, seizures with last one 01/2024, sickle cell trait, liver cirrhosis, anemia, chrons, IBS, ulcerative colitis, lowr GI bleed, hemorrhoids, constipation, psoriasis, migraines, chronic low back and cervical pain, scoliosis, arhtritis in multiple joints, gout bilateral feet, History of Any Multi-Drug Resistant Organisms: None Reported Past Surgical History: Cholecystectomy, Orthopedic Surgery Additional Past Surgical History / Comment(s): L oophorectomy d/t cyst, D&C, colonoscopy, L carpal tunnel release, Past Anesthesia/Blood Transfusion Reactions: Motion Sickness, Postoperative Nausea & Vomiting (PONV) Past Psychological History: Anxiety, Bipolar, Depression, Schizophrenia Smoking Status: Former smoker Past Alcohol Use History: None Reported Past Drug Use History: Cocaine - Past Family History Mother History Unknown: Yes Family Medical History: Cancer Additional Family Medical History / Comment(s): Mother had breast cancer and metnal illness She is living. Father Family Medical History: Cancer Additional Family Medical History / Comment(s): Father is . He had agent orange exposure. He had liver cancer, bowel to brain cancer. Medications and Allergies Home Medications Medication Instructions Recorded Confirmed Type Naltrexone HCl [Revia] 50 mg PO DAILY 30 Days #30 tab 04/25/24 06/14/24 Rx Haloperidol Decanoate [Haldol D] 50 mg IM Q28D 06/14/24 06/14/24 History Ondansetron Odt [Zofran ODT] 4 mg PO Q8H PRN 06/14/24 06/14/24 History fluvoxaMINE MALEATE [Luvox CR] 150 mg PO DAILY 06/14/24 06/14/24 History Allergies Allergy/AdvReac Type Severity Reaction Status Date / Time Iodinated Contrast Media Allergy Anaphylaxis Verified 06/14/24 18:14 [Iodinated Contrast Media - IV Dye] lacosamide [From Vimpat] Allergy Anaphylaxis Verified 06/14/24 18:14 peanut Allergy Anaphylaxis Verified 06/14/24 18:14 Penicillins Allergy Anaphylaxis Verified 06/14/24 18:14 shellfish derived Allergy swelling Verified 06/14/24 18:14 all over body cephalexin monohydrate AdvReac Rash, Verified 06/14/24 18:14 [From Keflex] Nausea, Vomiting & Diarrhea trazodone AdvReac bp Verified 06/14/24 18:14 issues/dizziness Physical Exam Vitals: Vital Signs Temp Pulse Resp BP Pulse Ox 06/14/24 19:37 97.7 F 69 17 125/81 100 06/14/24 15:58 98.4 F 75 18 118/69 96 Intake and Output 06/14/24 06/14/24 06/14/24 06:59 14:59 22:59 Other: Weight 126.552 kg Results Labs: Abnormal Lab Results - Last 24 Hours (Table) 06/14/24 06/14/24 Range/Units 17:16 18:22 POC Glucose (mg/dL) 193 H (70-110) mg/dL Urine Cocaine Screen Detected H (NotDetected) <Lizet Stone M - Last Filed: 06/14/24 23:55> Physical Exam Vitals: Vital Signs Temp Pulse Pulse Resp BP BP Pulse Ox 06/14/24 20:16 97.2 F L 93 18 125/74 97 06/14/24 19:37 97.7 F 69 17 125/81 100 06/14/24 15:58 98.4 F 75 18 118/69 96 Intake and Output 06/14/24 06/14/24 06/15/24 14:59 22:59 06:59 Other: Weight 131.995 kg Cranial Nerve Examination - Cranial Nerves Cranial Nerve II- Optic: Intact Cranial Nerve III- Oculomotor: Intact Cranial Nerve IV- Trochlear: Intact Cranial Nerve V- Trigeminal: Intact Cranial Nerve - Abducens: Intact Cranial Nerve VII- Facial: Intact Cranial Nerve VIII- Auditory: Intact Cranial Nerve IX- Glossopharyngeal: Intact Cranial Nerve X- Vagus: Intact Cranial Nerve XI- Accessory: Intact Cranial Nerve XII- Hypoglossal: Intact Results Labs: Abnormal Lab Results - Last 24 Hours (Table) 06/14/24 06/14/24 06/14/24 Range/Units 17:16 18:22 21:43 POC Glucose (mg/dL) 193 H 239 H (70-110) mg/dL Urine Cocaine Screen Detected H (NotDetected) Assessment and Plan Assessment: I have seen and evaluated the patient today. I Discussed the case with the resident and agree with the resident's findings I edited the assessment and plan as necessary as documented in the resident's note.
[2024-06-15 03:58] LABS: Appearance,Urine Cloudy (Clear); Bilirubin,Urine Negative (Negative); Blood,Urine Negative (Negative); Budding Yeast,Urine Rare /hpf; Color,Urine Colorless; Glucose,Urine (UA) Negative (Negative); Ketones,Urine Negative (Negative); Leukocyte Esterase,Urine Large (Negative); Mucus,Urine Rare /hpf; Nitrite,Urine Negative (Negative); PH, Urine 5.5 (5.0-8.0); Protein,Urine Negative (Negative); RBC,Urine 1 /hpf (0-5); Specific Gravity,Urine 1.012 (1.001-1.035); Squamous Epithelial Cell,Urine 16 /hpf (0-4); Urobilinogen,Urine <2.0 mg/dL (<2.0); WBC,Urine 13 /hpf (0-5)
[2024-06-15] MEDS: NYSTATIN 100,000UNIT/GM CREAM 30 GM TUBE TOPICAL SCH (05:06)
[2024-06-15 07:40] LABS: Anisocytosis Slight; Basophils # (A) 0.1 k/uL (0-0.2); Basophils % (A) 1 %; Eosinophils # (A) 0.6 k/uL (0-0.7); Eosinophils % (A) 6 %; HCT 38.3 % (34.0-46.0); HGB 11.9 gm/dL (11.4-16.0); Hypochromasia Slight; Lymphocytes # (A) 2.2 k/uL (1.0-4.8); Lymphocytes % (A) 22 %; MCH 27.7 pg (25.0-35.0); MCHC 31.2 g/dL (31.0-37.0); MCV 88.8 fL (80.0-100.0); Mean Platelet Volume 6.9; Monocytes # (A) 0.5 k/uL (0-1.0); Monocytes % (A) 5 %; Neutrophils # (A) 6.6 k/uL (1.3-7.7); Neutrophils % (A) 66 %; Platelet Count 217 k/uL (150-450); RBC 4.31 m/uL (3.80-5.40); RDW 16.3 % (11.5-15.5); WBC 10.1 k/uL (3.8-10.6)
[2024-06-15 07:53] LABS: Glucose,Whole Blood 157 mg/dL (70-110)
[2024-06-15 07:58] LABS: ALT 37 U/L (4-34); AST 42 U/L (14-36); African American GFR (CKD) >90 (>60 ml/min/1.73 sqM); Albumin 3.4 g/dL (3.5-5.0); Alkaline Phosphatase 96 U/L (38-126); Anion Gap 6 mmol/L; Blood Urea Nitrogen 12 mg/dL (7-17); Calcium 8.5 mg/dL (8.4-10.2); Carbon Dioxide 24 mmol/L (22-30); Chloride 107 mmol/L (98-107); Glucose 181 mg/dL (74-99); Non-African American GFR(CKD) >90 (>60 ml/min/1.73 sqM); Potassium 4.5 mmol/L (3.5-5.1); Sodium 137 mmol/L (137-145); Total Bilirubin 0.3 mg/dL (0.2-1.3); Total Protein 6.5 g/dL (6.3-8.2)
[2024-06-15] MEDS: INSULIN DETEMIR (LEVEMIR) 100 UNIT/ML SYR SQ SCH (08:19)
[2024-06-15] MEDS: metFORMIN 500 MG TAB PO SCH (08:20)
[2024-06-15] MEDS: NICOTINE 14MG/24HR PATCH TRANSDERM SCH (08:20)
[2024-06-15 12:47] LABS: Glucose,Whole Blood 115 mg/dL (70-110)
--- NOTE | 2024-06-15 14:16 | P.HP ---
Psychiatric H&P - . H&P Date: 06/15/24 History & Physical: Allergies Allergy/AdvReac Type Severity Reaction Status Date / Time Iodinated Contrast Media Allergy Anaphylaxis Verified 06/14/24 18:14 Iodinated Contrast Media - IV Dye lacosamide from Vimpat Allergy Anaphylaxis Verified 06/14/24 18:14 peanut Allergy Anaphylaxis Verified 06/14/24 18:14 Penicillins Allergy Anaphylaxis Verified 06/14/24 18:14 shellfish derived Allergy swelling Verified 06/14/24 18:14 all over body cephalexin monohydrate AdvReac Rash, Verified 06/14/24 18:14 From Keflex Nausea, Vomiting & Diarrhea trazodone AdvReac bp Verified 06/14/24 18:14 issues/dizziness Vital Signs Temp 98.7 F 06/15/24 07:04 Pulse 88 06/15/24 07:04 Resp 17 06/15/24 07:04 BP 118/62 06/15/24 07:04 Pulse Ox 98 06/15/24 07:04 FiO2 Intake & Output 06/14/24 06/15/24 06/15/24 18:59 06:59 18:59 Weight 126.552 kg 131.995 kg Laboratory Last Values WBC 10.1 k/uL (3.8-10.6) 06/15/24 07:17 RBC 4.31 m/uL (3.80-5.40) 06/15/24 07:17 Hgb 11.9 gm/dL (11.4-16.0) 06/15/24 07:17 Hct 38.3 % (34.0-46.0) 06/15/24 07:17 MCV 88.8 fL (80.0-100.0) 06/15/24 07:17 MCH 27.7 pg (25.0-35.0) 06/15/24 07:17 MCHC 31.2 g/dL (31.0-37.0) 06/15/24 07:17 RDW 16.3 % (11.5-15.5) H 06/15/24 07:17 Plt Count 217 k/uL (150-450) 06/15/24 07:17 MPV 6.9 06/15/24 07:17 Neutrophils % 66 % 06/15/24 07:17 Lymphocytes % 22 % 06/15/24 07:17 Monocytes % 5 % 06/15/24 07:17 Eosinophils % 6 % 06/15/24 07:17 Basophils % 1 % 06/15/24 07:17 Neutrophils # 6.6 k/uL (1.3-7.7) 06/15/24 07:17 Lymphocytes # 2.2 k/uL (1.0-4.8) 06/15/24 07:17 Monocytes # 0.5 k/uL (0-1.0) 06/15/24 07:17 Eosinophils # 0.6 k/uL (0-0.7) 06/15/24 07:17 Basophils # 0.1 k/uL (0-0.2) 06/15/24 07:17 Hypochromasia Slight 06/15/24 07:17 Anisocytosis Slight 06/15/24 07:17 Sodium 137 mmol/L (137-145) 06/15/24 07:17 Potassium 4.5 mmol/L (3.5-5.1) 06/15/24 07:17 Chloride 107 mmol/L (98-107) 06/15/24 07:17 Carbon Dioxide 24 mmol/L (22-30) 06/15/24 07:17 Anion Gap 6 mmol/L 06/15/24 07:17 BUN 12 mg/dL (7-17) 06/15/24 07:17 Creatinine 0.60 mg/dL (0.52-1.04) 06/15/24 07:17 Est GFR (CKD-EPI)AfAm >90 (>60 ml/min/1.73 sqM) 06/15/24 07:17 Est GFR (CKD-EPI)NonAf >90 (>60 ml/min/1.73 sqM) 06/15/24 07:17 Glucose 181 mg/dL (74-99) H 06/15/24 07:17 POC Glucose (mg/dL) 115 mg/dL (70-110) H 06/15/24 12:45 POC Glu [employer] ID Bridget Balbuena 06/15/24 12:[address] Glu mg/dL 186 mg/dL 06/15/24 07:17 Hemoglobin A1c 8.1 % (<=6.0) H 06/15/24 07:17 Calcium 8.5 mg/dL (8.4-10.2) 06/15/24 07:17 Total Bilirubin 0.3 mg/dL (0.2-1.3) 06/15/24 07:17 AST 42 U/L (14-36) H 06/15/24 07:17 ALT 37 U/L (4-34) H 06/15/24 07:17 Alkaline Phosphatase 96 U/L (38-126) 06/15/24 07:17 Total Protein 6.5 g/dL (6.3-8.2) 06/15/24 07:17 Albumin 3.4 g/dL (3.5-5.0) L 06/15/24 07:17 TSH 3.020 mIU/L (0.465-4.680) 06/15/24 07:17 Urine Color Colorless 06/14/24 00:00 Urine Appearance Cloudy (Clear) H 06/14/24 00:00 Urine pH 5.5 (5.0-8.0) 06/14/24 00:00 Ur Specific [place] 1.012 (1.001-1.035) 06/14/24 00:00 Urine Protein Negative (Negative) 06/14/24 00:00 Urine Glucose (UA) Negative (Negative) 06/14/24 00:00 Urine Ketones Negative (Negative) 06/14/24 00:00 Urine Blood Negative (Negative) 06/14/24 00:00 Urine Nitrite Negative (Negative) 06/14/24 00:00 Urine Bilirubin Negative (Negative) 06/14/24 00:00 Urine Urobilinogen <2.0 mg/dL (<2.0) 06/14/24 00:00 Ur Leukocyte Esterase Large (Negative) H 06/14/24 00:00 Urine RBC 1 /hpf (0-5) 06/14/24 00:00 Urine WBC 13 /hpf (0-5) H 06/14/24 00:00 Ur Squamous Epith Cells 16 /hpf (0-4) H 06/14/24 00:00 Urine Mucus Rare /hpf (None) H 06/14/24 00:00 Urine Yeast (Budding) Rare /hpf (None) H 06/14/24 00:00 Urine HCG, Qual Not Detected (Not Detectd) 06/14/24 00:00 Urine Opiates Screen Not Detected (NotDetected) 06/14/24 17:16 Ur Oxycodone Screen Not Detected (NotDetected) 06/14/24 17:16 Urine Methadone Screen Not Detected (NotDetected) 06/14/24 17:16 Ur Barbiturates Screen Not Detected (NotDetected) 06/14/24 17:16 U Tricyclic Antidepress Not Detected (NotDetected) 06/14/24 17:16 Ur Phencyclidine Scrn Not Detected (NotDetected) 06/14/24 17:16 Ur Amphetamines Screen Not Detected (NotDetected) 06/14/24 17:16 U Methamphetamines Scrn Not Detected (NotDetected) 06/14/24 17:16 U Benzodiazepines Scrn Not Detected (NotDetected) 06/14/24 17:16 Urine Cocaine Screen Detected (NotDetected) H 06/14/24 17:16 U Marijuana (THC) Screen Not Detected (NotDetected) 06/14/24 17:16 SARS-CoV-2 (PCR) Not Detected (Not Detectd) 06/14/24 18:19 06/15/24 14:06 IDENTIFYING DATA: Patient is a 44-year-old female with the public guardian, recently [facility], on disability CHIEF COMPLAINT: Suicidal thoughts HPI: Patient presented to the hospital due to suicidal thoughts with a plan. EPS evaluation revealed, "upon assessment pt is noted to have poor hygiene and body odor. Pt states she is homeless and has no acccess to a shower. She states that she has been living [place] for 4 months. Then in the next sentence states that she was staying at her sisters and they got into an arguement about dog pee and poop and she told her to leave. Per guardian pt has been staying with sister or a friend, she has never reported the the guardians office that she is staying under a bridge. Pt states "I have no where to go and I will kill myself if I leave". Pt staets that she has had SI for as long as she can remember. She states that she would get a rope and hang herself from the brigde or she would cut herself. She mentioned having dreams about killing herself and she would do it. Pt admits to having HI towards her sister, no plan. Pt admits to VH of seeing floating people that started 2 days ago but then mentioned it's been ongoing. She recently seen on 06/08 and nothing of this nature was noted. Pt did become irratable during assessment when we discussed options of housing and medication changes at [facility]. Pt was [facility] about 9 days ago per pt, she states that she was in [facility] for [address] hearing. She states that some of her medications we discontinued and she has not had any in about 9 days. Pt denies substance use but UDS is pos for cocaine. Pt denies the use of ETOH, Bat was 0. Pt would not contract for safety and stated that she would kill herself if she left. Pt is manipulative and gamey per [facility] office. Pt has hx of seizures and states she had a small one yesterday where "I was just starring off". She states her last know seizure was 01/2024. Pt is alert and orientedx4 and medically cleared. " Patient seen and evaluated in her room. She states being released from [facility] a few days ago and has been homeless since then. She states she was [facility] in [facility] for violating an order for substance use. She reports paranoia described as feeling like people are calling her names. This is in the context of cocaine use to which she admits to using intermittently. UDS was positive for cocaine. She reports feeling like her sister's boyfriend will hurt her and that this is causing her distress. She was reporting ongoing suicidal thoughts described as having no will to live. Patient denies any homicidal ideations intent or plan. At this time patient denies any auditory or visual hallucinations. Patient denies any flight of ideas racing thoughts and increased in goal directed behavior. Patient admits to using cocaine intermittently. PAST PSYCHIATRIC HISTORY: Patient has a history of MDD, borderline personality disorder, cocaine use disorder. Patient is currently prescribed Haldol decanoate 50 mg IM every 3 weeks, last given on 05/31 and next due 06/21. Patient is also on Luvox 150 mg at bedtime and naltrexone 50 mg at bedtime. Patient has several inpatient hospitalizations, most recent being here in April. Patient follows with [facility] outpatient. Patient has a history of suicide attempt via OD. PMH: as per ER note ALLERGIES: as per EMR SUBSTANCE USE HISTORY: As per HPI FAMILY PSYCHIATRIC/SUBSTANCE USE HISTORY: Denies SOCIAL HISTORY: Patient was born and raised in [place]. He reports being and has 3 children. She completed school up to 11th grade. She is on disability and has a public guardian. [facility] was recently [facility] after spending 14 days there for violating substance use order. MENTAL STATUS EXAM: General Appearance: Patient appears to be older than stated age is alert, directable, and attempts to cooperate. Patient appears to have poor hygiene and grooming. Behavior: Patient is laying without any agitated behavior. Speech: Patient's speech is fluent and nonpressured. Mood/Affect: Patient reports their mood is depressed, affect is congruent and constricted. Suicidality/Homicidality: Patient denies having any homicidal ideation intent or plan. She reports suicidal thoughts with a plan Perceptions: Patient denies any visual hallucinations and denies any auditory hallucinations Though content/process: There is no evidence of any delusional thought content and thought process is linear and illogical at times. She displays paranoia Memory and concentration: AOX3, grossly intact for the purposes of this session. Can spell "WORLD" backwards Judgment and insight: Poor STRENGTHS/WEAKNESSES: strength is that patient is resilient. Weakness is that patient uses cocaine, has poor judgment and is impulsive INTELLECT: Below average IMPRESSIONS: Depression, unspecified, likely substance-induced History of major depressive disorder with psychotic features Borderline personality disorder Cocaine use disorder History of PTSD PLAN: -Patient is admitted under voluntary status to [facility] for stabilization of psych iatric symptoms and safety. Patient has signed adult voluntary form and medication consent and is placed in patient's chart. -Medications : Resume Luvox 150 mg daily for depression with a plan to increase this to 200 mg at bedtime tomorrow. Haldol DEC and it 50 mg IM every 3 weeks, last given on 05/31, next due on 06/21 -Ativan and Haldol PRN for agitation/aggression -Patient was counselled on substance abuse and desired to cut back on use-Will offer patient subtance use rehab -Patient was informed of the risks, benefits and side effects of the medication and patient verbally consented to taking the medications. Patient signed med consent form and was placed in chart. -Internal Medicine consult to perform medical evaluation and physical. -NRT -not needed as patient does not smoke -SW on board for discharge planning. Encourage patient to participate in groups to work on coping skills. Court reportedly found a retirement for patient, she would likely be discharged there pending stabilization and suicidal thoughts
[2024-06-15 17:40] LABS: Glucose,Whole Blood 134 mg/dL (70-110)
[2024-06-16 10:23] LABS: Glucose,Whole Blood 151 mg/dL (70-110)
[2024-06-16] MEDS: IBUPROFEN 600 MG TAB PO PRN (10:26)
--- NOTE | 2024-06-16 12:00 | P.PN ---
Progress Note - Text Progress Note Date: 06/16/24 Interval History: Patient was seen laying in bed and was directable and agreeable to speak with account underwriter in her room. She reports feeling "like s" due to having a headache. Patient had just received as needed Motrin for this when talking with account underwriter. She states otherwise sleeping okay at night but does report poor appetite. She requests to be started on Ensure to make sure she is getting her proper nutrients for the day. She reports some improvements in her suicidal thoughts, described more as passive today with no plan or intent. Staff noted that [facility] was [facility] a [facility] with a bed opening early next week. At this time patient denies any homicidal ideations, intent or plan. Patient denies any auditory, visual hallucinations and denies any paranoia or delusions. Patient denies any side effects from the medications and has been compliant with meds. Mental Status Exam: General Appearance: Patient appears to be older than stated age is alert, directable, and cooperative. Behavior: Patient is calmly laying without any agitated behavior. Eye contact poor Speech: Patient's speech is fluent and nonpressured. Mood/Affect: Mood is improving mildly, affect is congruent and constricted. Suicidality/Homicidality: Patient reports suicidal ideations, no plan or intent today but denies having any homicidal ideation intent or plan. Perceptions: Patient denies any visual hallucinations and denies any auditory hallucinations Though content/process: There is no evidence of any delusional thought content and thought process is linear and logical. Memory and concentration: AOX3, grossly intact for the purposes of this session Judgment and insight: Improving mildly Assessment Depression, unspecified, likely substance-induced History of major depressive disorder with psychotic features Borderline personality disorder Cocaine use disorder History of PTSD Plan: -Patient continues to meet criteria for inpatient psychiatric admission for symptom stabilization and safety. Patient has signed adult voluntary form and medication consent and was placed in patient's chart. -Medications: Increase Luvox to 200 mg at bedtime for depression and continue Haldol DEC 50 mg IM every 3 weeks, last given on 05/31 and next due on 06/21 -When necessary Ativan and Haldol for agitation/aggression. -Labs: Reviewed -SW on board for discharge planning. Encouraged the patient to participate in milieu. Anticipate discharge to [facility] on Wednesday pending stabilization of mood
[2024-06-16 12:26] LABS: Glucose,Whole Blood 131 mg/dL (70-110)
[2024-06-16 17:43] LABS: Glucose,Whole Blood 123 mg/dL (70-110)
[2024-06-16 20:03] LABS: Glucose,Whole Blood 213 mg/dL (70-110)
[2024-06-16] MEDS: MAG HYDROX/AL HYDROX/SIMETH 355 ML BOTTLE PO PRN (20:10)
--- NOTE | 2024-06-17 12:15 | P.PN ---
Progress Note - Text Interval history: Patient was seen and was directable and agreeable to speak with hand sign writer. states that she is doing "good"and denies paranoia.. At this time patient denies any suicidal or homicidal ideations intent or plan. Denies any Auditory or visual hallucinations. Patient denies any side effects from the medications and has been compliant with meds. Mental status exam: General Appearance: [Patient appears to be older thanstated age is directable, and cooperative.] malodorous Behavior: [No agitated behavior. Patient is calm and directable] Speech: Patient's speech is fluent and nonpressured. Mood/Affect: Mood is improving mildly, affect is congruent and constricted. Suicidality/Homicidality: Patient denies having any suicidal or homicidal ideation intent or plan. Perceptions: Patient denies any auditory or visual hallucinations. Though content/process: [There is no evidence of any delusional thought content and thought process is linear and goal-directed.] Memory and concentration: AOX3, grossly intact for the purposes of this session Judgment and insight: improving mildly Assessment/Plan: Continue with current diagnosis. Patient continues to meet criteria for inpatient psychiatric admission for symptom stabilization and safety.[Patient will be maintained on current psychotropic medication regimen.] Monitor for medication compliance and for any psychotropic medication side effects. Will continue to monitor ongoing response to treatment. Encouraged participation in milieu.
[2024-06-17 12:50] LABS: Glucose,Whole Blood 131 mg/dL (70-110)
[2024-06-17 20:24] LABS: Glucose,Whole Blood 196 mg/dL (70-110)
[2024-06-18 07:59] LABS: Glucose,Whole Blood 160 mg/dL (70-110)
[2024-06-18] MEDS ORDERED: LOPERAMIDE 2 MG CAP PO PRN (12:32)
[2024-06-18 12:35] LABS: Glucose,Whole Blood 144 mg/dL (70-110)
[2024-06-18] MEDS: LOPERAMIDE 2 MG CAP PO STA (12:37)
--- NOTE | 2024-06-18 13:13 | P.PN ---
Progress Note - Text Interval history: Patient was seen and was directable and agreeable to speak with editorial writer. states that she feels "tired". Denies paranoia. Reports mild auditory hallucinations.. At this time patient denies any suicidal or homicidal ideations intent or plan. Denies any visual hallucinations Mental status exam: General Appearance: [Patient appears to be older thanstated age is alert, directable, and cooperative.] Behavior: [No agitated behavior. Patient is calm and directable] Speech: Patient's speech is fluent and nonpressured. Mood/Affect: Mood is improving mildly, affect is congruent and constricted. Suicidality/Homicidality: Patient denies having any suicidal or homicidal ideation intent or plan. Perceptions: reports intermittent auditory hallucinations, denies visual hallucinations Though content/process: [There is no evidence of any delusional thought content and thought process is linear and goal-directed.] Memory and concentration: AOX3, grossly intact for the purposes of this session Judgment and insight: improving mildly Assessment/Plan: Continue with current diagnosis. Patient continues to meet criteria for inpatient psychiatric admission for symptom stabilization and safety.[Patient will be maintained on current psychotropic medication regimen.] Monitor for medication compliance and for any psychotropic medication side effects. Will continue to monitor ongoing response to treatment. Encouraged participation in milieu.
[2024-06-18 17:01] LABS: Glucose,Whole Blood 182 mg/dL (70-110)
[2024-06-18 17:39] LABS: Glucose,Whole Blood 192 mg/dL (70-110)
[2024-06-18 20:04] LABS: Glucose,Whole Blood 207 mg/dL (70-110)
[2024-06-19 07:23] VITALS: RESP 18; TEMP 98.1
[2024-06-19 08:03] LABS: Glucose,Whole Blood 191 mg/dL (70-110)
--- NOTE | 2024-06-19 12:07 | P.PN ---
Progress Note - Text Progress Note Date: 06/19/24 Interval History: Patient was seen laying in bed and was directable and agreeable to speak with report writer in her room. She mentions feeling "better" today. She expressed no concerns over the weekend. She was agreeable to going to a nursing home recommended by the court as she feels stable and back to her baseline. She was encouraged to leave her room and tend to her ADLs as she is always seen isolated in her room. At this time patient denies any suicidal or homicidal ideations, intent or plan. Patient denies any auditory, visual hallucinations and denies any paranoia or delusions. Patient denies any side effects from the medications and has been compliant with meds. Mental Status Exam: General Appearance: Patient appears to be older than stated age is alert, directable, and cooperative. Behavior: Patient is calmly laying without any agitated behavior. Speech: Patient's speech is fluent and nonpressured. Mood/Affect: Mood is "better", affect is congruent and constricted. Suicidality/Homicidality: Patient denies having any suicidal or homicidal ideation intent or plan. Perceptions: Patient denies any visual hallucinations and denies any auditory hallucinations Though content/process: There is no evidence of any delusional thought content and thought process is linear and logical. 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 Patient has signed adult voluntary form and medication consent and was placed in patient's chart. -Medications: Continue Luvox 200 mg at bedtime for depression, Haldol decanoate 50 mg IM every 3 weeks, last given on 05/31 and next due on 06/21 -When necessary Ativan and Haldol for agitation/aggression. -Labs: Reviewed -SW on board for discharge planning. Encouraged the patient to participate in milieu. Anticipate discharge to nursing home tomorrow
[2024-06-19 12:34] LABS: Glucose,Whole Blood 158 mg/dL (70-110)
[2024-06-19 17:45] LABS: Glucose,Whole Blood 134 mg/dL (70-110)
[2024-06-19 21:19] LABS: Glucose,Whole Blood 174 mg/dL (70-110)
[2024-06-20] MEDS: ACETAMINOPHEN TAB 325 MG TAB PO PRN (00:37)
[2024-06-20 07:05] VITALS: BP 120/76; PULSE 80
[2024-06-20 07:54] LABS: Glucose,Whole Blood 152 mg/dL (70-110)
[2024-06-20] MEDS: HALOPERIDOL DECANOATE 50 MG/ML 1 ML VIAL IM STA (12:32)
--- NOTE | 2024-06-20 13:42 | P.DS ---
Providers Date of admission: 06/14/24 19:07 Expected date of discharge: 06/20/24 Attending physician: Jaqui Murillo MD Consults: 06/14/24 19:10 Consult Physician Routine Consulting Provider: Telma Physician Consult Reason/Comments: H&P, review medical medications Do you want consulting provider notified?: Yes Primary care physician: Stated None - Discharge Diagnosis(es) (1) Depression Status: Acute Priority: High (2) Borderline personality disorder Status: Acute Priority: High (3) Cocaine use disorder, severe, dependence Status: Acute Priority: High Hospital Course: Admission HPI: Admission note was completed by marketing copywriter" Patient presented to the hospital due to suicidal thoughts with a plan. EPS evaluation revealed, "upon assessment pt is noted to have poor hygiene and body odor. Pt states she is homeless and has no acccess to a shower. She states that [place] 4 [place]. Then in the next sentence states that she was staying at her sisters and they got into an arguement about dog pee and poop and she told her to leave. Per guardian pt has been staying with sister or a friend, she has never reported the the guardians office that she is staying under a bridge. Pt states "I have no where to go and I will kill myself if I leave". Pt staets that she has had SI for as long as she can remember. She states that she would get a rope and hang herself from the brigde or she would cut herself. She mentioned having dreams about killing herself and she would do it. Pt admits to having HI towards her sister, no plan. Pt admits to of seeing floating people that started 2 days ago but then mentioned it's been ongoing. She recently seen on 06/08 and nothing of this nature was noted. Pt did become irratable during assessment when we discussed options of housing and medication changes at [facility]. Pt was released from alf about 9 days ago per pt, she states that she was in alf for [address] hearing. She states that some of her medications we discontinued and she has not had any in about 9 days. Pt denies substance use but UDS is pos for cocaine. Pt denies the use of ETOH, Bat was 0. Pt would not contract for safety and stated that she would kill herself if she left. Pt is manipulative and gamey per PG office. Pt has hx of seizures and states she had a small one yesterday where "I was just starring off". She states her last know seizure was 01/2024. Pt is alert and orientedx4 and medically cleared. " Patient seen and evaluated in her room. She states being released from alf a few days ago and has been homeless since then. She states she was put in alf for violating an order for substance use. She reports paranoia described as feeling like people are calling her names. This is in the context of cocaine use to which she admits to using intermittently. UDS was positive for cocaine. She reports feeling like her sister's boyfriend will hurt her and that this is causing her distress. She was reporting ongoing suicidal thoughts described as having no will to live. Patient denies any homicidal ideations intent or plan. At this time patient denies any auditory or visual hallucinations. Patient denies any flight of ideas racing thoughts and increased in goal directed behavior. Patient admits to using cocaine intermittently." Hospital course: Upon admission to the unit patient was directable and agreeable to commence treatment and signed adult voluntary form. Patient followed unit protocol however was seen mostly isolative to her room but did leave her room more towards the end of her stay. Patient was compliant with the medications and denied any side effects throughout hospital course. Patient was continued on Luvox and this was increased to 200 mg at bedtime for depression, Haldol decanoate 50 mg IM every 3 weeks, last given on 06/20 and next due on 07/11. Patient spoke of her stressors and engaged in therapy both group and individual. Patient was also seen by medical team for history and physical exam. Throughout the course of the hospitalization patient gradually improved with regards to mood, anxiety, sleep and returned back to their baseline level of functioning. On the day of discharge patient denied any suicidal or homicidal ideations intent or plan denied any auditory or visual hallucinations. The patient denied any access to guns or weapons. Patient denied any paranoia and did not endorse any delusions. Patient does have a significant history of substance abuse and was counseled on abstaining from all substances including alcohol and marijuana. Patient was offered however declined inpatient substance-abuse rehab. Patient was discharged to a shelter recommended by the court. Patient was also counseled on the medications and need for regular compliance and was encouraged to follow-up with their outpatient appointment for mental health and also for primary care. Patient to follow up with [facility]. Mental status exam: General Appearance: Patient appears to be older than stated age is alert, pleasant, and cooperative. Patient is in no acute distress and has poor hygiene and grooming Behavior: Patient is calmly seated without any agitated behavior. Speech: Patient's speech is fluent and nonpressured. Mood/Affect: Patient reports their mood is "better", affect is congruent and euthymic. Suicidality/Homicidality: Patient denies having any suicidal or homicidal ideation intent or plan. Perceptions: Patient denies any auditory or visual hallucinations. Though content/process: There is no evidence of any delusional thought content and thought process is linear and goal-directed. More future oriented Memory and concentration: AOX3, grossly intact for the purposes of this session. Can spell "WORLD" backwards correctly. Judgment and insight: Chronically poor, however has improved with guarded prognosis Impression: Depression, unspecified, likely substance-induced Borderline personality disorder Cocaine use disorder Plan: -Continue with discharge today as patient has improved and stabilized psychiatrically and is not currently an imminent threat to themself and/or others. Patient will remain at chronically elevated risk for harm to self and/or others due to their impulsivity and substance abuse. -Continue medications: Luvox 200 mg at bedtime, Haldol decanoate 50 mg IM every 3 weeks, last given on 06/20 and next due on 07/11. -Patient was counseled on the need for medication compliance and appropriate follow-up at mental health and also primary care for medical issues. Patient verbalized understanding and agreed. -Social work to help coordinate patients discharge today. also to ensure safe home environment that guns/weapons are either removed from the home or locked away. Social work also to arrange for patients follow up appointments with [facility] for psychiatric care along with follow up with primary care provider. -Patient counseled on abstaining from recreational drugs and marijuana and alcohol. Was informed/educated on the adverse effects on their physical and mental health. Patient verbally agreed and understood. Patient was offered substance abuse treatment however declined at this time. -Patient was instructed to return to the hospital or seek immediate medical care if their psychiatric or medical symptoms do worsen or reoccur. Abnormal Labs 06/14/24 06/14/24 06/14/24 00:00 17:16 18:22 RDW Glucose POC Glucose (mg/dL) 193 H Hemoglobin A1c AST ALT Albumin Urine Appearance Cloudy H Ur Leukocyte Esterase Large H Urine WBC 13 H Ur Squamous Epith Cells 16 H Urine Mucus Rare H Urine Yeast (Budding) Rare H Urine Cocaine Screen Detected H 06/14/24 06/15/24 06/15/24 21:43 07:17 07:17 RDW 16.3 H Glucose POC Glucose (mg/dL) 239 H Hemoglobin A1c 8.1 H AST ALT Albumin Urine Appearance Ur Leukocyte Esterase Urine WBC Ur Squamous Epith Cells Urine Mucus Urine Yeast (Budding) Urine Cocaine Screen 06/15/24 06/15/24 06/15/24 07:17 07:51 12:45 RDW Glucose 181 H POC Glucose (mg/dL) 157 H 115 H Hemoglobin A1c AST 42 H ALT 37 H Albumin 3.4 L Urine Appearance Ur Leukocyte Esterase Urine WBC Ur Squamous Epith Cells Urine Mucus Urine Yeast (Budding) Urine Cocaine Screen 06/15/24 06/16/24 06/16/24 17:38 10:19 12:23 RDW Glucose POC Glucose (mg/dL) 134 H 151 H 131 H Hemoglobin A1c AST ALT Albumin Urine Appearance Ur Leukocyte Esterase Urine WBC Ur Squamous Epith Cells Urine Mucus Urine Yeast (Budding) Urine Cocaine Screen 06/16/24 06/16/24 06/17/24 17:42 20:02 12:48 RDW Glucose POC Glucose (mg/dL) 123 H 213 H 131 H Hemoglobin A1c AST ALT Albumin Urine Appearance Ur Leukocyte Esterase Urine WBC Ur Squamous Epith Cells Urine Mucus Urine Yeast (Budding) Urine Cocaine Screen 06/17/24 06/18/24 06/18/24 20:23 07:56 12:33 RDW Glucose POC Glucose (mg/dL) 196 H 160 H 144 H Hemoglobin A1c AST ALT Albumin Urine Appearance Ur Leukocyte Esterase Urine WBC Ur Squamous Epith Cells Urine Mucus Urine Yeast (Budding) Urine Cocaine Screen 06/18/24 06/18/24 06/18/24 16:59 17:35 20:02 RDW Glucose POC Glucose (mg/dL) 182 H 192 H 207 H Hemoglobin A1c AST ALT Albumin Urine Appearance Ur Leukocyte Esterase Urine WBC Ur Squamous Epith Cells Urine Mucus Urine Yeast (Budding) Urine Cocaine Screen 11/06/19/24 06/19/24 08:02 12:32 17:44 RDW Glucose POC Glucose (mg/dL) 191 H 158 H 134 H Hemoglobin A1c AST ALT Albumin Urine Appearance Ur Leukocyte Esterase Urine WBC Ur Squamous Epith Cells Urine Mucus Urine Yeast (Budding) Urine Cocaine Screen 06/19/24 06/20/24 21:18 07:52 RDW Glucose POC Glucose (mg/dL) 174 H 152 H Hemoglobin A1c AST ALT Albumin Urine Appearance Ur Leukocyte Esterase Urine WBC Ur Squamous Epith Cells Urine Mucus Urine Yeast (Budding) Urine Cocaine Screen Vital Signs Temp 98.1 F 06/20/24 07:05 Pulse 80 06/20/24 07:05 Resp 18 06/19/24 07:23 BP 120/76 06/20/24 07:05 Pulse Ox 99 06/20/24 07:05 FiO2 Allergies Allergy/AdvReac Type Severity Reaction Status Date / Time Iodinated Contrast Media Allergy Anaphylaxis Verified 06/14/24 18:14 [Iodinated Contrast Media - IV Dye] lacosamide [From Vimpat] Allergy Anaphylaxis Verified 06/14/24 18:14 peanut Allergy Anaphylaxis Verified 06/14/24 18:14 Penicillins Allergy Anaphylaxis Verified 06/14/24 18:14 shellfish derived Allergy swelling Verified 06/14/24 18:14 all over body cephalexin monohydrate AdvReac Rash, Verified 06/14/24 18:14 [From Keflex] Nausea, Vomiting & Diarrhea trazodone AdvReac bp Verified 06/14/24 18:14 issues/dizziness Patient Condition at Discharge: Stable Plan - Discharge Summary Discharge Rx Participant: No New Discharge Prescriptions: New fluvoxaMINE [Luvox] 200 mg PO HS 30 Days #120 tab Nystatin 100,000Unit/gm Cream [Mycostatin Cream] 1 applic TOPICAL BID 30 Days #1 each Alcohol Antiseptic Pads [Alcohol Swabs] 1 pad TOPICAL QID #120 pad Syringe and Needle,Insulin,1Ml [Insulin Syringe 28G 1/2" 1ML] 1 syr SQ DIRECTED #120 each Insulin Aspart [NovoLOG Flexpen] 3 units SQ AC-TID #5 each metFORMIN HCL [Glucophage] 1,000 mg PO BID-W/MEALS #120 tab Lancets 1 each MISCELLANE QID #120 each Insulin Detemir (Levemir) [Levemir] 20 unit SQ DAILY@0700 #10 ml Blood Sugar Diagnostic [Test Strips] 1 strip MISCELLANE QID #120 strip Haloperidol Decanoate [Haldol D] 50 mg IM Q21D #1 each Continue Naltrexone HCl [Revia] 50 mg PO DAILY 30 Days #30 tab Haloperidol Decanoate [Haldol D] 50 mg IM Q21D #1 each Discontinued fluvoxaMINE MALEATE [Luvox CR] 150 mg PO DAILY Ondansetron Odt [Zofran ODT] 4 mg PO Q8H PRN PRN Reason: Nausea Discharge Medication List Naltrexone HCl [Revia] 50 mg PO DAILY 30 Days #30 tab 04/25/24 [Rx] Alcohol Antiseptic Pads [Alcohol Swabs] 1 pad TOPICAL QID #120 pad 06/20/24 [Rx] Blood Sugar Diagnostic [Test Strips] 1 strip MISCELLANE QID #120 strip 06/20/24 [Rx] Haloperidol Decanoate [Haldol D] 50 mg IM Q21D #1 each 06/20/24 [Rx] Haloperidol Decanoate [Haldol D] 50 mg IM Q21D #1 each 06/20/24 [Rx] Insulin Aspart [NovoLOG Flexpen] 3 units SQ AC-TID #5 each 06/20/24 [Rx] Insulin Detemir (Levemir) [Levemir] 20 unit SQ DAILY@0700 #10 ml 06/20/24 [Rx] Lancets 1 each MISCELLANE QID #120 each 06/20/24 [Rx] Nystatin 100,000Unit/gm Cream [Mycostatin Cream] 1 applic TOPICAL BID 30 Days #1 each 06/20/24 [Rx] Syringe and Needle,Insulin,1Ml [Insulin Syringe 28G 1/2" 1ML] 1 syr SQ DIRECTED #120 each 06/20/24 [Rx] fluvoxaMINE [Luvox] 200 mg PO HS 30 Days #120 tab 06/20/24 [Rx] metFORMIN HCL [Glucophage] 1,000 mg PO BID-W/MEALS #120 tab 06/20/24 [Rx] Follow up Appointment(s)/Referral(s): [facility] [Outside] - 06/20/24 11:00 am (06/20/2024 11:00AM - 12:00PM SUSHILA CARTER 07/04/2024 12:00PM - 12:30PM CLYDE ROSAS [facility] [REFERRING] - 1 Week Patient Instructions/Handouts: Depression (DC), Methamphetamine Abuse (DC), Borderline Personality Disorder (DC) Activity/Diet/Wound Care/Special Instructions: Avoid the use of street drugs and alcohol. Take all medications as prescribed. When you are in need of refills on your medications, please contact your medical provider and/or outpatient psychiatrist/provider to have this done. Please go to your scheduled outpatient appointment for aftercare treatment. If symptoms return or become worse, call the crisis line at and/or go to the nearest emergency room for evaluation. National Suicide Hotline 988 Discharge Disposition: HOME SELF-CARE
[2024-06-21] MEDS ORDERED: HALOPERIDOL DECANOATE 50 MG/ML 1 ML VIAL IM SCH (14:00)
== END 2024-06-20 12:44 | disposition home or self-care (01) | DRG 754 ==
LOC: EC 15:57 → 3MHU 19:07
PROVIDERS: ADMIT Psychiatry & Neurology Psychiatry; ATTEND Psychiatry & Neurology Psychiatry
DX: F32.A Depression, unspecified (principal); M79.7 Fibromyalgia; Z87.01 Personal history of pneumonia (recurrent); M19.90 Unspecified osteoarthritis, unspecified site; K21.9 Gastro-esophageal reflux disease without esophagitis; J44.9 Chronic obstructive pulmonary disease, unspecified; Z87.19 Personal history of other diseases of the digestive system; F41.9 Anxiety disorder, unspecified; F43.10 Post-traumatic stress disorder, unspecified; F60.3 Borderline personality disorder; G40.909 Epilepsy, unspecified, not intractable, without status epilepticus; I11.0 Hypertensive heart disease with heart failure; I50.9 Heart failure, unspecified; F20.9 Schizophrenia, unspecified; F14.20 Cocaine dependence, uncomplicated; D57.3 Sickle-cell trait; E11.9 Type 2 diabetes mellitus without complications; K74.60 Unspecified cirrhosis of liver; M41.9 Scoliosis, unspecified; R45.851 Suicidal ideations; Z86.32 Personal history of gestational diabetes; Z87.891 Personal history of nicotine dependence; Z90.721 Acquired absence of ovaries, unilateral; Z91.51 Personal history of suicidal behavior; Z88.0 Allergy status to penicillin; Z91.041 Radiographic dye allergy status; Z91.018 Allergy to other foods
CPT/HCPCS: 36415; 80053; 80306; 81001; 81025; 82075; 83036; 84443; 85025; 87635; 99285

== ENCOUNTER 2024-06-21 03:07 | Emergency (ER) | payer OTHER ==
[2024-06-21 03:15] VITALS: RESP 18
--- NOTE | 2024-06-21 03:36 | ED ---
General Adult HPI - General Chief complaint: Chest Pain Stated complaint: Chest pain Time Seen by Provider: 06/21/24 03:16 Source: patient Mode of arrival: ambulatory Limitations: no limitations - History of Present Illness Initial comments: Dictation was produced using [employer] dictation software. please excuse any grammatical, word or spelling errors. Chief Complaint: 44-year-old female presents to the ER for chest pain History of Present Illness: Patient is a 44-year-old female presents the emergency department for chest pain. Patient states she has been having pain for the last several hours. States that it sharp radiates to her back. States that she has cardiac history that she describes as her heart skipping a beat. Denies any history of coronary artery stents. She does report some nausea. Denies any diaphoresis. The ROS documented in this emergency department record has been reviewed and confirmed by me. Those systems with pertinent positive or negative responses have been documented in the HPI. All other systems are other negative and/or noncontributory. - Related Data Previous Rx's Medication Instructions Recorded Naltrexone HCl [Revia] 50 mg PO DAILY 30 Days #30 tab 04/25/24 Alcohol Antiseptic Pads [Alcohol 1 pad TOPICAL QID #120 pad 06/20/24 Swabs] Blood Sugar Diagnostic [Test 1 strip MISCELLANE QID #120 strip 06/20/24 Strips] Haloperidol Decanoate [Haldol D] 50 mg IM Q21D #1 each 06/20/24 Haloperidol Decanoate [Haldol D] 50 mg IM Q21D #1 each 06/20/24 Insulin Aspart [NovoLOG Flexpen] 3 units SQ AC-TID #5 each 06/20/24 Insulin Detemir (Levemir) [Levemir] 20 unit SQ DAILY@0700 #10 ml 06/20/24 Lancets 1 each MISCELLANE QID #120 each 06/20/24 Nystatin 100,000Unit/gm Cream 1 applic TOPICAL BID 30 Days #1 06/20/24 [Mycostatin Cream] each Syringe and Needle,Insulin,1Ml 1 syr SQ DIRECTED #120 each 06/20/24 [Insulin Syringe 28G 1/2" 1ML] fluvoxaMINE [Luvox] 200 mg PO HS 30 Days #120 tab 06/20/24 metFORMIN HCL [Glucophage] 1,000 mg PO BID-W/MEALS #120 tab 06/20/24 Allergies Allergy/AdvReac Type Severity Reaction Status Date / Time Iodinated Contrast Media Allergy Anaphylaxis Verified 06/21/24 03:11 [Iodinated Contrast Media - IV Dye] lacosamide [From Vimpat] Allergy Anaphylaxis Verified 06/21/24 03:11 peanut Allergy Anaphylaxis Verified 06/21/24 03:11 Penicillins Allergy Anaphylaxis Verified 06/21/24 03:11 shellfish derived Allergy swelling Verified 06/21/24 03:11 all over body cephalexin monohydrate AdvReac Rash, Verified 06/21/24 03:11 [From Keflex] Nausea, Vomiting & Diarrhea trazodone AdvReac bp Verified 06/21/24 03:11 issues/dizziness Review of Systems ROS Statement: Those systems with pertinent positive or pertinent negative responses have been documented in the HPI. ROS Other: All systems not noted in ROS Statement are negative. Past Medical History Past Medical History: Asthma, Heart Failure, COPD, Diabetes Mellitus, Fibromyalgia, GERD/Reflux, GI Bleed, Hypertension, Liver Disease, Osteoarthritis (OA), Pneumonia, Seizure Disorder, Skin Disorder Additional Past Medical History / Comment(s): Bronchitis, gestational diabetes, seizures with last one 01/2024, sickle cell trait, liver cirrhosis, anemia, chrons, IBS, ulcerative colitis, lowr GI bleed, hemorrhoids, constipation, psoriasis, migraines, chronic low back and cervical pain, scoliosis, arhtritis in multiple joints, gout bilateral feet, History of Any Multi-Drug Resistant Organisms: None Reported Past Surgical History: Cholecystectomy, Orthopedic Surgery Additional Past Surgical History / Comment(s): L oophorectomy d/t cyst, D&C, colonoscopy, L carpal tunnel release, Past Anesthesia/Blood Transfusion Reactions: Motion Sickness, Postoperative Nausea & Vomiting (PONV) Past Psychological History: Anxiety, Bipolar, Depression, Schizophrenia Smoking Status: Former smoker Past Alcohol Use History: None Reported Past Drug Use History: Cocaine - Past Family History Mother History Unknown: Yes Family Medical History: Cancer Additional Family Medical History / Comment(s): Mother had breast cancer and metnal illness She is living. Father Family Medical History: Cancer Additional Family Medical History / Comment(s): Father is . He had agent orange exposure. He had liver cancer, bowel to brain cancer. General Exam - General Exam Comments Initial Comments: PHYSICAL EXAM: General Impression: Alert and oriented x3, not in acute distress HEENT: Normocephalic atraumatic, extra-ocular movements intact, pupils equal and reactive to light bilaterally, mucous membranes moist. Cardiovascular: Heart regular rate and rhythm Chest: Able to complete full sentences, no retractions, no tachypnea Abdomen: abdomen soft, non-tender, non-distended, no organomegaly Musculoskeletal: Pulses present and equal in all extremities, no peripheral edema Motor: no focal deficits noted Neurological: CN II-XII grossly intact, no focal motor or sensory deficits noted Skin: Intact with no visualized rashes Psych: Normal affect and mood Limitations: no limitations Course Vital Signs 06/21/24 03:10 Temperature 98.5 F Pulse Rate 71 Respiratory 18 Rate Blood Pressure 159/76 O2 Sat by Pulse 96 Oximetry - Reevaluation(s) Reevaluation #1: 06/21/24 03:35 Chart review was performed. Patient had a stress test in November 2020. At that time there was no wall motion abnormalities. Most recently patient was evaluate by cardiology on January of this year. She is admitted for noncardiac chest pain cleared by cardiology for discharge. EKG Findings - EKG Comments: EKG Findings:: My EKG interpretation: Ventricular rate 65, sinus rhythm, right b undle branch block,. 152, QRS 160, QTc 469. No NM prolongation, no QTC prolongation, no ST or T-wave changes noted. EKG compared to February 27, 2024 showing no changes. Overall, this EKG is unremarkable Medical Decision Making - Medical Decision Making Was pt. sent in by a medical professional or institution (, PA, SETTER OUT, urgent care, hospital, or detention...) When possible be specific @ -No Did you speak to anyone other than the patient for history (EMS, parent, family, police, friend...)? What history was obtained from this source @ -No Did you review nursing and triage notes (agree or disagree)? Why? @ -I reviewed and agree with nursing and triage notes Were old charts reviewed (outside hosp., previous admission, EMS record, old EKG, old radiological studies, urgent care reports/EKG's, detention records)? Report findings @ -No old charts were reviewed Differential Diagnosis (chest pain, altered mental status, abdominal pain women, abdominal pain men, vaginal bleeding, musculoskeletal, weakness, fever, dyspnea, syncope, headache, dizziness, GI bleed, back pain, seizure, CVA, palpatations, mental health)? @ -Differential Chest Pain: Stable Angina, Unstable Angina, STEMI, NSTEMI Aortic Dissection, Pneumothorax, M usculoskeletal, Esophageal Spasm GERD, Cholecystitis, Pancreatitis, Zoster, this is not meant to be an all-inclusive list. EKG interpreted by me (3pts min.). @ -See above X-rays interpreted by me (1pt min.). @ -Chest x-ray is nonacute CT interpreted by me (1pt min.). @ -None done U/S interpreted by me (1pt. min.). @ -None done What testing was considered but not performed or refused? (CT, X-rays, U/S, labs)? Why? @ -None What meds were considered but not given or refused? Why? @ -None Was smoking cessation discussed for >3mins.? @ -No Were there social determinants of health that impacted care today? How? (Homelessness, low income, unemployed, alcoholism, drug addiction, transportat ion, low edu. Level, literacy, decrease access to med. care, intermediate, rehab)? @ -No Was there de-escalation of care discussed even if they declined (Discuss DNR or withdrawal of care, Hospice)? DNR status @ -No What co-morbidities impacted this encounter? (DM, HTN, Smoking, COPD, CAD, Cancer, CVA, ARF, Chemo, Hep., AIDS, mental health diagnosis, sleep apnea, morbid obesity)? @ -Bipolar disorder Was patient admitted / discharged? Hospital course, mention meds given and route, prescriptions, significant lab abnormalities, going to OR and other pertinent info. @ -44-year-old female presents with atypical chest pain. Vital signs upon arrival are within acceptable limits. Patient well-appearing at the bedside. Physical examination is benign. Patient complains of sharp pain that radiates to her back. She has no known history of coronary artery disease. Laboratory evaluation is unremarkable. D-dimer and troponin are negative. X-ray is nonacute. Patient reevaluated bedside at 5:40 AM found to be in stable mental condition. Patient discharged told to follow-up with primary care doctor. Did you discuss the management of the patient with other professionals (professionals i.e. , PA, SETTER OUT, lab, RT, psych nurse, social services, cleaning custodian, teacher, chief media officer, keycase assembler)? Give summary @ -No Was critical care preformed (if so, how long)? @ -No Undiagnosed new problem with uncertain prognosis? @ -No Drug Therapy requiring intensive monitoring for toxicity (Heparin, Nitro, I nsulin, Cardizem)? @ -No Were any procedures done? @ -No Diagnosis/symptom? Acute, or Chronic, or Acute on Chronic? Uncomplicated (without systemic symptoms) or Complicated (systemic symptoms)? @ -Chest pain Side effects of treatment? @ -No Exacerbation, Progression, or Severe Exacerbation? @ -No Poses a threat to life or bodily function? How? (Chest pain, [place], [place], pneumonia, PE, COPD, DKA, ARF, appy, cholecystitis, CVA, Diverticulitis, Homicidal, Suicidal, threat to staff... and all critical care pts) @ -No - Lab Data Result diagrams: 06/21/24 03:32 06/21/24 03:32 Lab Results 06/21/24 06/21/24 06/21/24 Range/Units 03:32 03:32 03:32 WBC 13.8 H (3.8-10.6) k/uL RBC 4.44 (3.80-5.40) m/uL Hgb 12.4 (11.4-16.0) gm/dL Hct 38.2 (34.0-46.0) % MCV 86.0 (80.0-100.0) fL MCH 27.9 (25.0-35.0) pg MCHC 32.4 (31.0-37.0) g/dL RDW 15.9 H (11.5-15.5) % Plt Count 237 (150-450) k/uL MPV 7.1 Neutrophils % 76 % Lymphocytes % 15 % Monocytes % 4 % Eosinophils % 4 % Basophils % 0 % Neutrophils # 10.4 H (1.3-7.7) k/uL Lymphocytes # 2.1 (1.0-4.8) k/uL Monocytes # 0.5 (0-1.0) k/uL Eosinophils # 0.5 (0-0.7) k/uL Basophils # 0.0 (0-0.2) k/uL PT 9.6 L (10.0-12.5) sec INR 0.8 (<1.2) APTT 22.5 (22.0-30.0) sec D-Dimer 0.38 (<0.60) mg/L FEU Sodium 137 (137-145) mmol/L Potassium 4.0 (3.5-5.1) mmol/L Chloride 105 (98-107) mmol/L Carbon Dioxide 23 (22-30) mmol/L Anion Gap 9 mmol/L BUN 17 (7-17) mg/dL Creatinine 0.68 (0.52-1.04) mg/dL Est GFR (CKD-EPI)AfAm >90 (>60 ml/min/1.73 sqM) Est GFR (CKD-EPI)NonAf >90 (>60 ml/min/1.73 sqM) Glucose 189 H (74-99) mg/dL Calcium 8.9 (8.4-10.2) mg/dL Magnesium 1.9 (1.6-2.3) mg/dL Total Bilirubin 0.2 (0.2-1.3) mg/dL AST 36 (14-36) U/L ALT 43 H (4-34) U/L Alkaline Phosphatase 117 (38-126) U/L Troponin I (0.000-0.034) ng/mL Total Protein 7.4 (6.3-8.2) g/dL Albumin 4.1 (3.5-5.0) g/dL 06/21/24 Range/Units 03:32 WBC (3.8-10.6) k/uL RBC (3.80-5.40) m/uL Hgb (11.4-16.0) gm/dL Hct (34.0-46.0) % MCV (80.0-100.0) fL MCH (25.0-35.0) pg MCHC (31.0-37.0) g/dL RDW (11.5-15.5) % Plt Count (150-450) k/uL MPV Neutrophils % % Lymphocytes % % Monocytes % % Eosinophils % % Basophils % % Neutrophils # (1.3-7.7) k/uL Lymphocytes # (1.0-4.8) k/uL Monocytes # (0-1.0) k/uL Eosinophils # (0-0.7) k/uL Basophils # (0-0.2) k/uL PT (10.0-12.5) sec INR (<1.2) APTT (22.0-30.0) sec D-Dimer (<0.60) mg/L FEU Sodium (137-145) mmol/L Potassium (3.5-5.1) mmol/L Chloride (98-107) mmol/L Carbon Dioxide (22-30) mmol/L Anion Gap mmol/L BUN (7-17) mg/dL Creatinine (0.52-1.04) mg/dL Est GFR (CKD-EPI)AfAm (>60 ml/min/1.73 sqM) Est GFR (CKD-EPI)NonAf (>60 ml/min/1.73 sqM) Glucose (74-99) mg/dL Calcium (8.4-10.2) mg/dL Magnesium (1.6-2.3) mg/dL Total Bilirubin (0.2-1.3) mg/dL AST (14-36) U/L ALT (4-34) U/L Alkaline Phosphatase (38-126) U/L Troponin I 0.013 (0.000-0.034) ng/mL Total Protein (6.3-8.2) g/dL Albumin (3.5-5.0) g/dL Disposition Clinical Impression: Chest pain Disposition: HOME SELF-CARE Condition: Good Instructions (If sedation given, give patient instructions): Chest Pain (ED) Is patient prescribed a controlled substance at d/c from ED?: No Referrals: None,Stated [Primary Care Provider] - 1-2 days Time of Disposition: 05:40
[2024-06-21 03:41] LABS: Basophils % (A) 0 %; Eosinophils # (A) 0.5 k/uL (0-0.7); Eosinophils % (A) 4 %; HCT 38.2 % (34.0-46.0); HGB 12.4 gm/dL (11.4-16.0); Lymphocytes # (A) 2.1 k/uL (1.0-4.8); Lymphocytes % (A) 15 %; MCH 27.9 pg (25.0-35.0); MCHC 32.4 g/dL (31.0-37.0); Mean Platelet Volume 7.1; Monocytes # (A) 0.5 k/uL (0-1.0); Monocytes % (A) 4 %; Neutrophils # (A) 10.4 k/uL (1.3-7.7); Neutrophils % (A) 76 %; Platelet Count 237 k/uL (150-450); RBC 4.44 m/uL (3.80-5.40); RDW 15.9 % (11.5-15.5); WBC 13.8 k/uL (3.8-10.6)
[2024-06-21 03:55] LABS: ALT 43 U/L (4-34); AST 36 U/L (14-36); African American GFR (CKD) >90 (>60 ml/min/1.73 sqM); Albumin 4.1 g/dL (3.5-5.0); Alkaline Phosphatase 117 U/L (38-126); Anion Gap 9 mmol/L; Blood Urea Nitrogen 17 mg/dL (7-17); Calcium 8.9 mg/dL (8.4-10.2); Carbon Dioxide 23 mmol/L (22-30); Chloride 105 mmol/L (98-107); Glucose 189 mg/dL (74-99); Magnesium 1.9 mg/dL (1.6-2.3); Non-African American GFR(CKD) >90 (>60 ml/min/1.73 sqM); Sodium 137 mmol/L (137-145); Total Bilirubin 0.2 mg/dL (0.2-1.3); Total Protein 7.4 g/dL (6.3-8.2)
[2024-06-21 03:58] LABS: INR 0.8 (<1.2); Partial Thromboplastin Time 22.5 sec (22.0-30.0); Prothrombin Time 9.6 sec (10.0-12.5)
--- NOTE | 2024-06-21 05:01 | XR ---
EXAMINATION TYPE: XR chest 2V DATE OF EXAM: 06/21/2024 CLINICAL HISTORY: Chest pain TECHNIQUE: Frontal and lateral views of the chest are obtained. COMPARISON: Prior chest x-ray April 12, 2024 FINDINGS: There is no suspicious new focal air space opacity, pleural effusion, or pneumothorax seen . The cardiac silhouette size is stable and within normal limits. Overlying EKG leads seen on curr ent study. The osseous structures are intact. IMPRESSION: No acute process. [facility], , 06/21/2024 4:59 AM
[2024-06-21 06:38] VITALS: BP 150/81; PULSE 60; TEMP 97
== END 2024-06-21 06:42 | disposition home or self-care (01) ==
LOC: EC 03:07
DX: R07.9 Chest pain, unspecified (principal); F31.9 Bipolar disorder, unspecified; Z87.891 Personal history of nicotine dependence; Z88.0 Allergy status to penicillin; Z88.1 Allergy status to other antibiotic agents; Z91.041 Radiographic dye allergy status; Z91.013 Allergy to seafood; Z90.49 Acquired absence of other specified parts of digestive tract
CPT/HCPCS: 36415; 71046; 80053; 83735; 84484; 85025; 85379; 85610; 85730; 93005; 99285

== ENCOUNTER 2024-06-23 18:42 | Emergency (ER) | payer OTHER ==
[2024-06-23 19:40] VITALS: TEMP 98.3
--- NOTE | 2024-06-23 19:41 | ED ---
Abdominal Pain HPI - General Stated Complaint: Abd pain,Vomiting Time Seen by Provider: 06/23/24 19:40 Source: patient, RN notes reviewed, Caregiver Mode of arrival: ambulatory Limitations: no limitations - History of Present Illness Initial Comments: 44-year-old female presenting to the ER with a chief complaint of nausea, vomiting and abdominal pain. She states this been ongoing for the past 4 days. She describes it as a burning RUQ quadrant abdominal pain. She does report a history of liver disease as she used to "drink alcohol and do drugs". Reports a history of a cholecystectomy. States she is unable to keep anything down as she will throw it up. Patient also endorses yellow diarrhea. Denies any hematochezia or melena. Admits to chills but denies known fevers. Patient denies any urinary complaints. Patient denies any chest pain, shortness of breath, cough, congestion, urinary complaints or peripheral edema. - Related Data Previous Rx's Medication Instructions Recorded Naltrexone HCl [Revia] 50 mg PO DAILY 30 Days #30 tab 04/25/24 Alcohol Antiseptic Pads [Alcohol 1 pad TOPICAL QID #120 pad 06/20/24 Swabs] Blood Sugar Diagnostic [Test 1 strip MISCELLANE QID #120 strip 06/20/24 Strips] Haloperidol Decanoate [Haldol D] 50 mg IM Q21D #1 each 06/20/24 Haloperidol Decanoate [Haldol D] 50 mg IM Q21D #1 each 06/20/24 Insulin Aspart [NovoLOG Flexpen] 3 units SQ AC-TID #5 each 06/20/24 Insulin Detemir (Levemir) [Levemir] 20 unit SQ DAILY@0700 #10 ml 06/20/24 Lancets 1 each MISCELLANE QID #120 each 06/20/24 Nystatin 100,000Unit/gm Cream 1 applic TOPICAL BID 30 Days #1 06/20/24 [Mycostatin Cream] each Syringe and Needle,Insulin,1Ml 1 syr SQ DIRECTED #120 each 06/20/24 [Insulin Syringe 28G 1/2" 1ML] fluvoxaMINE [Luvox] 200 mg PO HS 30 Days #120 tab 06/20/24 metFORMIN HCL [Glucophage] 1,000 mg PO BID-W/MEALS #120 tab 06/20/24 Pen Needle, Diabetic [Pen (Sandra) 1 needle SQ QID #120 each 06/22/24 Needle 4mm 32G (BD)] Omeprazole 20 mg PO DAILY #30 tab 06/23/24 Allergies Allergy/AdvReac Type Severity Reaction Status Date / Time Iodinated Contrast Media Allergy Anaphylaxis Verified 06/23/24 19:40 [Iodinated Contrast Media - IV Dye] lacosamide [From Vimpat] Allergy Anaphylaxis Verified 06/23/24 19:40 peanut Allergy Anaphylaxis Verified 06/23/24 19:40 Penicillins Allergy Anaphylaxis Verified 06/23/24 19:40 shellfish derived Allergy swelling Verified 06/23/24 19:40 all over body cephalexin monohydrate AdvReac Rash, Verified 06/23/24 19:40 [From Keflex] Nausea, Vomiting & Diarrhea trazodone AdvReac bp Verified 06/23/24 19:40 issues/dizziness Review of Systems ROS Statement: Those systems with pertinent positive or pertinent negative responses have been documented in the HPI. ROS Other: All systems not noted in ROS Statement are negative. Past Medical History Past Medical History: Asthma, Heart Failure, COPD, Diabetes Mellitus, Fibromyalgia, GERD/Reflux, GI Bleed, Hypertension, Liver Disease, Osteoarthritis (OA), Pneumonia, Seizure Disorder, Skin Disorder Additional Past Medical History / Comment(s): Bronchitis, gestational diabetes, seizures with last one 01/2024, sickle cell trait, liver cirrhosis, anemia, c hrons, IBS, ulcerative colitis, lowr GI bleed, hemorrhoids, constipation, psoriasis, migraines, chronic low back and cervical pain, scoliosis, arhtritis in multiple joints, gout bilateral feet, History of Any Multi-Drug Resistant Organisms: None Reported Past Surgical History: Cholecystectomy, Orthopedic Surgery Additional Past Surgical History / Comment(s): L oophorectomy d/t cyst, D&C, colonoscopy, L carpal tunnel release, Past Anesthesia/Blood Transfusion Reactions: Motion Sickness, Postoperative Nausea & Vomiting (PONV) Past Psychological History: Anxiety, Bipolar, Depression, Schizophrenia Smoking Status: Former smoker Past Alcohol Use History: None Reported Past Drug Use History: Cocaine - Past Family History Mother History Unknown: Yes Family Medical History: Cancer Additional Family Medical History / Comment(s): Mother had breast cancer and metnal illness She is living. Father Family Medical History: Cancer Additional Family Medical History / Comment(s): Father is . He had agent orange exposure. He had liver cancer, bowel to brain cancer. General Exam - General Exam Comments Initial Comments: Visual Physical Exam Vital signs reviewed General: Well-appearing, nontoxic, no acute distress. Head: Normocephalic, atraumatic Eyes: PERRLA, EOMI ENT: Airway patent Chest: Nonlabored breathing Skin: No visual rash, normal skin tone Neuro: Alert and oriented 3 Musculoskeletal: No gross abnormalities Limitations: no limitations General appearance: alert, in no apparent distress Respiratory exam: Present: normal lung sounds bilaterally. Absent: respiratory distress, wheezes, rales, rhonchi, stridor Cardiovascular Exam: Present: regular rate, normal rhythm, normal heart sounds. Absent: systolic murmur, diastolic murmur, rubs, gallop, clicks GI/Abdominal exam: Present: soft, tenderness (Right upper quadrant), normal bowel sounds Neurological exam: Present: alert, oriented X3 Skin exam: Present: warm, dry, intact, normal color. Absent: rash Course Vital Signs 06/23/24 06/23/24 19:36 23:45 Temperature 98.3 F Pulse Rate 64 71 Respiratory 16 18 Rate Blood Pressure 136/80 140/70 O2 Sat by Pulse 96 98 Oximetry Medical Decision Making - Medical Decision Making I performed the quick note portion of this chart. Electronically signed by Yaz Kan PA-C Was pt. sent in by a medical professional or institution ([facility], PIER WORKER, urgent care, hospital, or residential...) When possible be specific @ -No Did you speak to anyone other than the patient for history (EMS, parent, family, police, friend...)? What history was obtained from this source @ -No Did you review nursing and triage notes (agree or disagree)? Why? @ -I reviewed and agree with nursing and triage notes Were old charts reviewed (outside hosp., previous admission, EMS record, old EKG, old radiological studies, urgent care reports/EKG's, residential records)? Report findings @ -No old charts were reviewed Differential Diagnosis (chest pain, altered mental status, abdominal pain women, abdominal pain men, vaginal bleeding, weakness, fever, dyspnea, syncope, headache, dizziness, GI bleed, back pain, seizure, CVA, palpatations, mental health, musculoskeletal)? @ -Differential Abdominal Pain Women:Appendicitis, Cholecystitis, diverticulosis, ischemic bowel, pancreatitis, hepatitis, UTI, gastroenteritis, AAA, incarcerated hernia, bowel obstruction, constipation, inflammatory bowel, hepatitis, peptic ulcer disease, splenic infarction, perforated viscus, vulvitis, ovarian torsion, PID, kidney stone, placenta abruption, this is not meant to be an all-inclusive list EKG interpreted by me (3pts min.). @ -None done X-rays interpreted by me (1pt min.). @ -None done CT interpreted by me (1pt min.). @ -CT abdomen pelvis negative for acute intra-abdominal process. U/S interpreted by me (1pt. min.). @ -None done What testing was considered but not performed or refused? (CT, X-rays, U/S, labs)? Why? @ -None What meds were considered but not given or refused? Why? @ -None Did you discuss the management of the patient with other professionals (professionals i.e. , PA, PIER WORKER, lab, RT, psych nurse, social service manager, printed forms proofreader, teacher, environmental technical officer, wrapper caser)? Give summary @ -No Was smoking cessation discussed for >3mins.? @ -No Was critical care preformed (if so, how long)? @ -No Were there social determinants of health that impacted care today? How? (Homelessness, low income, unemployed, alcoholism, drug addiction, transportation, low edu. Level, literacy, decrease access to med. care, half-way, rehab)? @ -Patient has a guardian and living at jail Was there de-escalation of care discussed even if they declined (Discuss DNR or withdrawal of care, Hospice)? DNR status @ -No What co-morbidities impacted this encounter? (DM, HTN, Smoking, COPD, CAD, Cancer, CVA, ARF, Chemo, Hep., AIDS, mental health diagnosis, sleep apnea, morbid obesity)? @ -Diabetes mellitus Was patient admitted / discharged? Hospital course, mention meds given and route, prescriptions, significant lab abnormalities, going to OR and other pertinent info. @ -Discharge. 44-year-old female presented the ER with a chief complaint of nausea, vomiting and abdominal pain. Patient originally seen as a quick note where laboratory studies ordered. Upon my evaluation, history and physical exam completed. Vitals within normal limit. Patient no signs of acute distress nontoxic-appearing. Exam remarkable for right upper quadrant abdominal tenderness with normal bowel sounds. No rebound or guarding. Laboratory studies showing a leukocytosis of 15.2 with a left shift. CMP unremarkable. Mild elevation in AST and ALT at 46. Urinalysis unimpressive. hCG negative. Viral swabs negative. Patient symptomatically treatment with IV fluids, Zofran, Toradol and Pepcid. Due to focal abdominal tenderness CT abdomen pelvis performed and negative for acute intracranial process. Upon reevaluation, patient resting comfortably in exam stretcher no signs of acute distress. No episodes of emesis in ER. Symptoms believed to have a component of acid reflux. Omeprazole prescribed. Patient is stable for discharge at this time. Strict return parameters discussed. Patient discharged in stable condition with foll ow-up to PCP. Patient verbally expressed understanding and agreement with care plan. Case discussed with ED attending, Dr. Frye. Undiagnosed new problem with uncertain prognosis? @ -No Drug Therapy requiring intensive monitoring for toxicity (Heparin, Nitro, Insulin, Cardizem)? @ -No Were any procedures done? @ -No Diagnosis/symptom? @ -Abdominal pain Acute, or Chronic, or Acute on Chronic? @ -Acute Uncomplicated (without systemic symptoms) or Complicated (systemic symptoms)? @ -Uncomplicated Side effects of treatment? @ -No Exacerbation, Progression, or Severe Exacerbation? @ -No Poses a threat to life or bodily function? How? (Chest pain, USA, VT, pneumonia, PE, COPD, DKA, ARF, appy, cholecystitis, CVA, Diverticulitis, Homicidal, Suicidal, threat to staff... and all critical care pts) @ -No - Lab Data Result diagrams: 06/23/24 20:01 06/23/24 20:01 Lab Results 06/23/24 06/23/24 06/23/24 Range/Units 19:47 19:47 20:01 WBC 15.2 H (3.8-10.6) k/uL RBC 4.66 (3.80-5.40) m/uL Hgb 12.8 (11.4-16.0) gm/dL Hct 40.5 (34.0-46.0) % MCV 87.0 (80.0-100.0) fL MCH 27.6 (25.0-35.0) pg MCHC 31.7 (31.0-37.0) g/dL RDW 16.2 H (11.5-15.5) % Plt Count 252 (150-450) k/uL MPV 7.5 Neutrophils % 70 % Lymphocytes % 20 % Monocytes % 4 % Eosinophils % 4 % Basophils % 1 % Neutrophils # 10.7 H (1.3-7.7) k/uL Lymphocytes # 3.0 (1.0-4.8) k/uL Monocytes # 0.5 (0-1.0) k/uL Eosinophils # 0.7 (0-0.7) k/uL Basophils # 0.1 (0-0.2) k/uL Anisocytosis Slight Sodium (137-145) mmol/L Potassium (3.5-5.1) mmol/L Chloride (98-107) mmol/L Carbon Dioxide (22-30) mmol/L Anion Gap mmol/L BUN (7-17) mg/dL Creatinine (0.52-1.04) mg/dL Est GFR (CKD-EPI)AfAm (>60 ml/min/1.73 sqM) Est GFR (CKD-EPI)NonAf (>60 ml/min/1.73 sqM) Glucose (74-99) mg/dL Plasma Lactic Acid Keon (0.7-2.0) mmol/L Calcium (8.4-10.2) mg/dL Total Bilirubin (0.2-1.3) mg/dL AST (14-36) U/L ALT (4-34) U/L Alkaline Phosphatase (38-126) U/L Total Protein (6.3-8.2) g/dL Albumin (3.5-5.0) g/dL Amylase (30-110) U/L Lipase (23-300) U/L Urine Color Colorless Urine Appearance Clear (Clear) Urine pH 6.0 (5.0-8.0) Ur Specific Conway 1.011 (1.001-1.035) Urine Protein Negative (Negative) Urine Glucose (UA) Negative (Negative) Urine Ketones Negative (Negative) Urine Blood Negative (Negative) Urine Nitrite Negative (Negative) Urine Bilirubin Negative (Negative) Urine Urobilinogen <2.0 (<2.0) mg/dL Ur Leukocyte Esterase Small H (Negative) Urine RBC 1 (0-5) /hpf Urine WBC 3 (0-5) /hpf Ur Squamous Epith Cells 2 (0-4) /hpf Urine Bacteria Rare H (None) /hpf Urine Mucus Rare H (None) /hpf Urine HCG, Qual Not Detected (Not Detectd) Influenza Type A (PCR) (Not Detectd) Influenza Type B (PCR) (Not Detectd) RSV (PCR) (Not Detectd) SARS-CoV-2 (PCR) (Not Detectd) 06/23/24 06/23/24 06/23/24 Range/Units 20:01 20:01 21:35 WBC (3.8-10.6) k/uL RBC (3.80-5.40) m/uL Hgb (11.4-16.0) gm/dL Hct (34.0-46.0) % MCV (80.0-100.0) fL MCH (25.0-35.0) pg MCHC (31.0-37.0) g/dL RDW (11.5-15.5) % Plt Count (150-450) k/uL MPV Neutrophils % % Lymphocytes % % Monocytes % % Eosinophils % % Basophils % % Neutrophils # (1.3-7.7) k/uL Lymphocytes # (1.0-4.8) k/uL Monocytes # (0-1.0) k/uL Eosinophils # (0-0.7) k/uL Basophils # (0-0.2) k/uL Anisocytosis Sodium 137 (137-145) mmol/L Potassium 4.8 (3.5-5.1) mmol/L Chloride 101 (98-107) mmol/L Carbon Dioxide 27 (22-30) mmol/L Anion Gap 9 mmol/L BUN 16 (7-17) mg/dL Creatinine 0.70 (0.52-1.04) mg/dL Est GFR (CKD-EPI)AfAm >90 (>60 ml/min/1.73 sqM) Est GFR (CKD-EPI)NonAf >90 (>60 ml/min/1.73 sqM) Glucose 165 H (74-99) mg/dL Plasma Lactic Acid Keon 2.0 (0.7-2.0) mmol/L Calcium 9.3 (8.4-10.2) mg/dL Total Bilirubin 0.3 (0.2-1.3) mg/dL AST 46 H (14-36) U/L ALT 46 H (4-34) U/L Alkaline Phosphatase 97 (38-126) U/L Total Protein 7.4 (6.3-8.2) g/dL Albumin 4.0 (3.5-5.0) g/dL Amylase 47 (30-110) U/L Lipase 162 (23-300) U/L Urine Color Urine Appearance (Clear) Urine pH (5.0-8.0) Ur Specific Conway (1.001-1.035) Urine Protein (Negative) Urine Glucose (UA) (Negative) Urine Ketones (Negative) Urine Blood (Negative) Urine Nitrite (Negative) Urine Bilirubin (Negative) Urine Urobilinogen (<2.0) mg/dL Ur Leukocyte Esterase (Negative) Urine RBC (0-5) /hpf Urine WBC (0-5) /hpf Ur Squamous Epith Cells (0-4) /hpf Urine Bacteria (None) /hpf Urine Mucus (None) /hpf Urine HCG, Qual (Not Detectd) Influenza Type A (PCR) Not Detected (Not Detectd) Influenza Type B (PCR) Not Detected (Not Detectd) RSV (PCR) Not Detected (Not Detectd) SARS-CoV-2 (PCR) Not Detected (Not Detectd) - Radiology Data Radiology results: report reviewed, image reviewed Disposition Clinical Impression: Abdominal pain Disposition: HOME SELF-CARE Condition: Stable Instructions (If sedation given, give patient instructions): Abdominal Pain (ED) Additional Instructions: Follow-up with PCP. Return to the ER for any new or worsening concerns. Prescriptions: Omeprazole 20 mg PO DAILY #30 tab Is patient prescribed a controlled substance at d/c from ED?: No Referrals: Evelyn Blas MD [Primary Care Provider] - 1-2 days Time of Disposition: 23:33
[2024-06-23 19:59] LABS: Appearance,Urine Clear (Clear); Bacteria,Urine Rare /hpf; Bilirubin,Urine Negative (Negative); Blood,Urine Negative (Negative); Color,Urine Colorless; Glucose,Urine (UA) Negative (Negative); Ketones,Urine Negative (Negative); Leukocyte Esterase,Urine Small (Negative); Mucus,Urine Rare /hpf; Nitrite,Urine Negative (Negative); Protein,Urine Negative (Negative); RBC,Urine 1 /hpf (0-5); Specific Gravity,Urine 1.011 (1.001-1.035); Squamous Epithelial Cell,Urine 2 /hpf (0-4); Urobilinogen,Urine <2.0 mg/dL (<2.0); WBC,Urine 3 /hpf (0-5)
[2024-06-23 20:08] LABS: Anisocytosis Slight; Basophils # (A) 0.1 k/uL (0-0.2); Basophils % (A) 1 %; Eosinophils # (A) 0.7 k/uL (0-0.7); Eosinophils % (A) 4 %; HCT 40.5 % (34.0-46.0); HGB 12.8 gm/dL (11.4-16.0); Lymphocytes % (A) 20 %; MCH 27.6 pg (25.0-35.0); MCHC 31.7 g/dL (31.0-37.0); Mean Platelet Volume 7.5; Monocytes # (A) 0.5 k/uL (0-1.0); Monocytes % (A) 4 %; Neutrophils # (A) 10.7 k/uL (1.3-7.7); Neutrophils % (A) 70 %; Platelet Count 252 k/uL (150-450); RBC 4.66 m/uL (3.80-5.40); RDW 16.2 % (11.5-15.5); WBC 15.2 k/uL (3.8-10.6)
[2024-06-23 20:18] LABS: ALT 46 U/L (4-34); AST 46 U/L (14-36); African American GFR (CKD) >90 (>60 ml/min/1.73 sqM); Alkaline Phosphatase 97 U/L (38-126); Amylase 47 U/L (30-110); Anion Gap 9 mmol/L; Blood Urea Nitrogen 16 mg/dL (7-17); Calcium 9.3 mg/dL (8.4-10.2); Carbon Dioxide 27 mmol/L (22-30); Chloride 101 mmol/L (98-107); Glucose 165 mg/dL (74-99); Lipase 162 U/L (23-300); Non-African American GFR(CKD) >90 (>60 ml/min/1.73 sqM); Potassium 4.8 mmol/L (3.5-5.1); Sodium 137 mmol/L (137-145); Total Bilirubin 0.3 mg/dL (0.2-1.3); Total Protein 7.4 g/dL (6.3-8.2)
[2024-06-23] MEDS: KETOROLAC 15 MG/ML 1 ML VIAL IVP STA (21:30)
[2024-06-23] MEDS: SODIUM CHLORIDE 0.9% 1,000 ML IV STA (21:30)
[2024-06-23] MEDS: ONDANSETRON 4 MG/2 ML VIAL IVP STA (21:30)
[2024-06-23] MEDS: FAMOTIDINE 20 MG/2 ML VIAL IV STA (21:30)
--- NOTE | 2024-06-23 21:39 | CT ---
EXAMINATION TYPE: CT abdomen pelvis wo con DATE OF EXAM: 06/23/2024 9:32 PM COMPARISON: Previous CT abdomen/pelvis 10/13/2023. CLINICAL INDICATION: Female, 44 years old with history of abd pain/nausea/vomiting; Pt c/o abd pain w ith nausea x 4 days. TECHNIQUE: Axial CT abdomen pelvis wo con;Sagittal and coronal reformats were created on a separate workstation. Oral contrast used: without Oral ContrastCT DLP: 1731.4 mGycm, Automated exposure control for dose re duction was used. FINDINGS: LOWER CHEST: Unremarkable ABDOMEN LIVER: Decreased hepatic parenchymal attenuation suggesting steatosis. Hepatomegaly. GALLBLADDER AND BILE DUCTS: Gallbladder surgically absent. No abnormal biliary ductal dilatation. PANCREAS: Unremarkable. SPLEEN: Splenomegaly measuring 15.2 cm in craniocaudal dimension. ADRENAL GLANDS: Unremarkable. KIDNEYS AND URETERS: No evidence of hydronephrosis or renal calculus. The ureters are unremarkable. Calcification and parenchymal scarring defects in the left kidney. PELVIS BLADDER: No evidence for wall thickening or mass given limitations of exam. REPRODUCTIVE: Right adnexal metallic clip. Uterus otherwise unremarkable. ABDOMEN & PELVIS STOMACH AND BOWEL: Stomach and duodenum are unremarkable. No evidence of bowel obstruction. Appendix unremarkable. PERITONEUM/RETROPERITONEUM: No evidence of pneumoperitoneum or free fluid. VASCULATURE: No evidence of aortic aneurysm. MUSCULOSKELETAL: No acute osseous abnormalities LYMPH NODES: No gross evidence for lymphadenopathy. SOFT TISSUE/ABDOMINAL WALL: Unremarkable IMPRESSION: No acute abnormality in the abdomen/pelvis or CT findings to explain reported symptoms. [facility], , 06/23/2024 9:37 PM
[2024-06-23 23:46] VITALS: BP 140/70; PULSE 71; RESP 18
== END 2024-06-24 00:07 | disposition home or self-care (01) ==
LOC: EC 18:42
DX: R10.11 Right upper quadrant pain (principal); E11.9 Type 2 diabetes mellitus without complications; Z87.891 Personal history of nicotine dependence; Z91.041 Radiographic dye allergy status; Z91.040 Latex allergy status; Z88.0 Allergy status to penicillin; Z91.013 Allergy to seafood; Z88.1 Allergy status to other antibiotic agents; Z88.8 Allergy status to other drugs, medicaments and biological substances; Z11.52 Encounter for screening for COVID-19
CPT/HCPCS: 36415; 80053; 82150; 83605; 83690; 85025; 81001; 81025; 87636; 74176; 99284; 96374; 96375 ×2; J2405; J3490; J1885

== ENCOUNTER 2024-06-25 13:54 | Emergency (ER) | payer OTHER ==
[2024-06-25 14:03] VITALS: RESP 18
--- NOTE | 2024-06-25 14:46 | XR ---
EXAMINATION TYPE: XR chest 2V DATE OF EXAM: 06/25/2024 CLINICAL HISTORY: Productive cough and fevers. TECHNIQUE: Frontal and lateral views of the chest are obtained. COMPARISON: Chest x-ray June 21, 2024 FINDINGS: There is no focal air space opacity, pleural effusion, or pneumothorax seen. The cardiac silhouette size remains within normal limits. The osseous structures are intact. IMPRESSION: No acute pulmonary infiltrate. No significant change from prior. [facility], , 06/25/2024 2:44 PM
[2024-06-25] MEDS: ONDANSETRON ODT 4 MG TAB PO STA (14:52)
[2024-06-25] MEDS: IBUPROFEN 800 MG TAB PO STA (14:52)
[2024-06-25 15:19] LABS: Appearance,Urine Cloudy (Clear); Bacteria,Urine Few /hpf; Bilirubin,Urine Negative (Negative); Blood,Urine Negative (Negative); Color,Urine Light Yellow; Glucose,Urine (UA) Negative (Negative); Ketones,Urine Negative (Negative); Leukocyte Esterase,Urine Large (Negative); Mucus,Urine Rare /hpf; Nitrite,Urine Negative (Negative); PH, Urine 5.5 (5.0-8.0); Protein,Urine Negative (Negative); RBC,Urine 11 /hpf (0-5); Specific Gravity,Urine 1.022 (1.001-1.035); Squamous Epithelial Cell,Urine 4 /hpf (0-4); Urobilinogen,Urine <2.0 mg/dL (<2.0); WBC,Urine 5 /hpf (0-5)
--- NOTE | 2024-06-25 15:35 | ED ---
ENT HPI - General Chief complaint: ENT Stated complaint: Sore throat,selma ear pain Time Seen by Provider: 06/25/24 14:13 Source: patient, RN notes reviewed Mode of arrival: ambulatory Limitations: no limitations - History of Present Illness Initial comments: This is a 44-year-old female presenting with bilateral ear pain (03/11), sore throat, productive cough with green phlegm, N/V x 2 days. Patient also endorses congestion with postnasal drip, fever, chills. Patient denies [id number] medication use patient denies chest pain, dyspnea, abdominal pain, diarrhea, constipation, hemoptysis, dizziness. MD complaint: sore throat, ear pain Onset/Timin -: days(s) Location: R ear, L ear, throat Severity scale (1-10): 8 Consistency: constant Improves with: none Worsens with: none Associated Symptoms: fever, cough, sore throat, rhinorrhea - Related Data Previous Rx's Medication Instructions Recorded Naltrexone HCl [Revia] 50 mg PO DAILY 30 Days #30 tab 04/25/24 Alcohol Antiseptic Pads [Alcohol 1 pad TOPICAL QID #120 pad 06/20/24 Swabs] Blood Sugar Diagnostic [Test 1 strip MISCELLANE QID #120 strip 06/20/24 Strips] Haloperidol Decanoate [Haldol D] 50 mg IM Q21D #1 each 06/20/24 Haloperidol Decanoate [Haldol D] 50 mg IM Q21D #1 each 06/20/24 Insulin Aspart [NovoLOG Flexpen] 3 units SQ AC-TID #5 each 06/20/24 Insulin Detemir (Levemir) [Levemir] 20 unit SQ DAILY@0700 #10 ml 06/20/24 Lancets 1 each MISCELLANE QID #120 each 06/20/24 Nystatin 100,000Unit/gm Cream 1 applic TOPICAL BID 30 Days #1 06/20/24 [Mycostatin Cream] each Syringe and Needle,Insulin,1Ml 1 syr SQ DIRECTED #120 each 06/20/24 [Insulin Syringe 28G 1/2" 1ML] fluvoxaMINE [Luvox] 200 mg PO HS 30 Days #120 tab 06/20/24 metFORMIN HCL [Glucophage] 1,000 mg PO BID-W/MEALS #120 tab 11/19/24 Pen Needle, Diabetic [Pen (Sanrda) 1 needle SQ QID #120 each 06/22/24 Needle 4mm 32G (BD)] Omeprazole 20 mg PO DAILY #30 tab 06/23/24 Azithromycin [Zithromax Z Pack] 250 tab PO DIRECTED #4 tab 06/25/24 Guaifenesin/Dextromethorphan 1 each PO DIRECTED #20 capsule 06/25/24 [Robitussin Mtsqn-Qcpgh-Iwct Dm] Azithromycin [Zithromax] 250 mg PO DIRECTED 5 Days #6 tab 06/26/24 lidocaine HCL [Lidocaine HCl 10 ml MM Q4-6H PRN #100 ml 06/26/24 Viscous] Albuterol Sulfate [Ventolin HFA] 1 puff INHALATION Q6H PRN #1 each 06/30/24 Azithromycin [Zithromax] 250 mg PO DAILY 4 Days #4 tab 06/30/24 predniSONE [Deltasone] 40 mg PO BID 5 Days #10 tab 06/30/24 Allergies Allergy/AdvReac Type Severity Reaction Status Date / Time Iodinated Contrast Media Allergy Anaphylaxis Verified 06/26/24 21:30 [Iodinated Contrast Media - IV Dye] lacosamide [From Vimpat] Allergy Anaphylaxis Verified 06/26/24 21:30 peanut Allergy Anaphylaxis Verified 06/26/24 21:30 Penicillins Allergy Anaphylaxis Verified 06/26/24 21:30 shellfish derived Allergy swelling Verified 06/26/24 21:30 all over body cephalexin monohydrate AdvReac Rash, Verified 06/26/24 21:30 [From Keflex] Nausea, Vomiting & Diarrhea trazodone AdvReac bp Verified 06/26/24 21:30 issues/dizziness Review of Systems ROS Statement: Those systems with pertinent positive or pertinent negative responses have been documented in the HPI. ROS Other: All systems not noted in ROS Statement are negative. Past Medical History Past Medical History: Asthma, Heart Failure, COPD, Diabetes Mellitus, Fibromyalgia, GERD/Reflux, GI Bleed, Hypertension, Liver Disease, Osteoarthritis (OA), Pneumonia, Seizure Disorder, Skin Disorder Additional Past Medical History / Comment(s): Bronchitis, gestational diabetes, seizures with last one 01/2024, sickle cell trait, liver cirrhosis, anemia, chrons, IBS, ulcerative colitis, lowr GI bleed, hemorrhoids, constipation, psoriasis, migraines, chronic low back and cervical pain, scoliosis, arhtritis in multiple joints, gout bilateral feet, History of Any Multi-Drug Resistant Organisms: None Reported Past Surgical History: Cholecystectomy, Orthopedic Surgery Additional Past Surgical History / Comment(s): L oophorectomy d/t cyst, D&C, colonoscopy, L carpal tunnel release, Past Anesthesia/Blood Transfusion Reactions: Motion Sickness, Postoperative Nausea & Vomiting (PONV) Past Psychological History: Anxiety, Bipolar, Depression, Schizophrenia Smoking Status: Former smoker Past Alcohol Use History: None Reported Past Drug Use History: Cocaine - Past Family History Mother History Unknown: Yes Family Medical History: Cancer Additional Family Medical History / Comment(s): Mother had breast cancer and metnal illness She is living. Father Family Medical History: Cancer Additional Family Medical History / Comment(s): Father is . He had agent orange exposure. He had liver cancer, bowel to brain cancer. General Exam Limitations: no limitations General appearance: alert, in no apparent distress Head exam: Present: atraumatic, normocephalic, normal inspection Eye exam: Present: normal appearance, PERRL, EOMI. Absent: scleral icterus, conjunctival injection, periorbital swelling ENT exam: Present: normal exam, mucous membranes moist, other (Bilateral TMs are opaque with bulging. Positive maxillary sinus TTP.) Neck exam: Present: normal inspection. Absent: tenderness, meningismus, lymphadenopathy Respiratory exam: Present: normal lung sounds bilaterally, rhonchi. Absent: respiratory distress, wheezes, rales, stridor Cardiovascular Exam: Present: regular rate, normal rhythm, normal heart sounds. Absent: systolic murmur, diastolic murmur, rubs, gallop, clicks GI/Abdominal exam: Present: soft, normal bowel sounds. Absent: distended, tenderness, guarding, rebound, rigid Extremities exam: Present: normal inspection, full ROM, normal capillary refill. Absent: tenderness, pedal edema, joint swelling, calf tenderness Back exam: Present: normal inspection Neurological exam: Present: alert, oriented X3, CN II-XII intact Psychiatric exam: Present: normal affect, normal mood Skin exam: Present: warm, dry, intact, normal color. Absent: rash Course Vital Signs 06/25/24 06/25/24 06/25/24 14:01 15:43 16:09 Temperature 98.8 F 98.0 F Pulse Rate 66 80 76 Respiratory 18 18 18 Rate Blood Pressure 146/76 128/70 130/68 O2 Sat by Pulse 97 95 Oximetry Medical Decision Making - Medical Decision Making Was pt. sent in by a medical professional or institution (CLIF Ramirez, BODS DEVELOPER, urgent care, hospital, or detention...) When possible be specific @ -No Did you speak to anyone other than the patient for history (EMS, parent, family, police, friend...)? What history was obtained from this source @ -No Did you review nursing and triage notes (agree or disagree)? Why? @ -I reviewed and agree with nursing and triage notes Were old charts reviewed (outside hosp., previous admission, EMS record, old EKG, old radiological studies, urgent care reports/EKG's, detention records)? Report findings @ -No old charts were reviewed Differential Diagnosis (chest pain, altered mental status, abdominal pain women, abdominal pain men, vaginal bleeding, weakness, fever, dyspnea, syncope, headache, dizziness, GI bleed, back pain, seizure, CVA, palpatations, mental health, musculoskeletal)? @ -AOM, sinusitis, strep throat, pharyngitis, otitis externa, URI, COVID-19, influenza, bronchitis, pneumonia, this is not an exhaustive list EKG interpreted by me (3pts min.). @ -Not done X-rays interpreted by me (1pt min.). @ -Chest x-ray shows no acute process, focal infiltrate, pulmonary edema or pneumothorax CT interpreted by me (1pt min.). @ -None done U/S interpreted by me (1pt. min.). @ -None done What testing was considered but not performed or refused? (CT, X-rays, U/S, labs)? Why? @ -None What meds were considered but not given or refused? Why? @ -None Did you discuss the management of the patient with other professionals (professionals i.e. CLIF Ramirez, BODS DEVELOPER, lab, RT, psych nurse, social media campaign manager, sole rougher, teacher, chief accounting officer, correctional casework specialist)? Give summary @ -No Was smoking cessation discussed for >3mins.? @ -No Was critical care preformed (if so, how long)? @ -No Were there social determinants of health that impacted care today? How? (Homelessness, low income, unemployed, alcoholism, drug addiction, transportation, low edu. Level, literacy, decrease access to med. care, ch[facility], rehab)? @ -No Was there de-escalation of care discussed even if they declined (Discuss DNR or withdrawal of care, Hospice)? DNR status @ -No What co-morbidities impacted this encounter? (DM, HTN, Smoking, COPD, CAD, Cancer, CVA, ARF, Chemo, Hep., AIDS, mental health diagnosis, sleep apnea, morbid obesity)? @ -Heart failure, COPD, DM Was patient admitted / discharged? Hospital course, mention meds given and route, prescriptions, significant lab abnormalities, going to OR and other pertinent info. @ -UA negative. Cepheid test and strep test negative. Chest x-ray shows no infiltrates, effusion or pneumothorax. Motrin 800 and Zofran p.o. given for pain and nausea. Initial dose of azithromycin given in ER. Remaining azithromycin and Robitussin sent to patient's pharmacy. Undiagnosed new problem with uncertain prognosis? @ -No Drug Therapy requiring intensive monitoring for toxicity (Heparin, Nitro, Insulin, Cardizem)? @ -No Were any procedures done? @ -No Diagnosis/symptom? @ -AOM, URI Acute, or Chronic, or Acute on Chronic? @ -Acute Uncomplicated (without systemic symptoms) or Complicated (systemic symptoms)? @ -Complicated Side effects of treatment? @ -No Exacerbation, Progression, or Severe Exacerbation? @ -No Poses a threat to life or bodily function? How? (Chest pain, USA, DC, pneumonia, PE, COPD, DKA, ARF, appy, cholecystitis, CVA, Diverticulitis, Homicidal, Suicidal, threat to staff... and all critical care pts) @ -No - Lab Data Lab Results 06/25/24 06/25/24 06/25/24 Range/Units 14:33 14:33 14:35 Urine Color Light Yellow Urine Appearance Cloudy H (Clear) Urine pH 5.5 (5.0-8.0) Ur Specific [place] 1.022 (1.001-1.035) Urine Protein Negative (Negative) Urine Glucose (UA) Negative (Negative) Urine Ketones Negative (Negative) Urine Blood Negative (Negative) Urine Nitrite Negative (Negative) Urine Bilirubin Negative (Negative) Urine Urobilinogen <2.0 (<2.0) mg/dL Ur Leukocyte Esterase Large H (Negative) Urine RBC 11 H (0-5) /hpf Urine WBC 5 (0-5) /hpf Ur Squamous Epith Cells 4 (0-4) /hpf Urine Bacteria Few H (None) /hpf Urine Mucus Rare H (None) /hpf Urine HCG, Qual (Not Detectd) Influenza Type A (PCR) Not Detected (Not Detectd) Influenza Type B (PCR) Not Detected (Not Detectd) RSV (PCR) Not Detected (Not Detectd) SARS-CoV-2 (PCR) Not Detected (Not Detectd) Group A Strep (PCR) NOT DETECTED (Not Detectd) 06/25/24 Range/Units 14:35 Urine Color Urine Appearance (Clear) Urine pH (5.0-8.0) Ur Specific [place] (1.001-1.035) Urine Protein (Negative) Urine Glucose (UA) (Negative) Urine Ketones (Negative) Urine Blood (Negative) Urine Nitrite (Negative) Urine Bilirubin (Negative) Urine Urobilinogen (<2.0) mg/dL Ur Leukocyte Esterase (Negative) Urine RBC (0-5) /hpf Urine WBC (0-5) /hpf Ur Squamous Epith Cells (0-4) /hpf Urine Bacteria (None) /hpf Urine Mucus (None) /hpf Urine HCG, Qual Not Detected (Not Detectd) Influenza Type A (PCR) (Not Detectd) Influenza Type B (PCR) (Not Detectd) RSV (PCR) (Not Detectd) SARS-CoV-2 (PCR) (Not Detectd) Group A Strep (PCR) (Not Detectd) Disposition Clinical Impression: Otitis media, Upper respiratory infection Disposition: HOME SELF-CARE Condition: Good Instructions (If sedation given, give patient instructions): Ear Infection (ED) Prescriptions: Guaifenesin/Dextromethorphan [Robitussin Yewon-Heumf-Mwdz Dm] 1 each PO DIRECTED #20 capsule Azithromycin [Zithromax Z Pack] 250 tab PO DIRECTED #4 tab Is patient prescribed a controlled substance at d/c from ED?: No Referrals: Evelyn Blas MD [Primary Care Provider] - 1-2 days Time of Disposition: 15:59
[2024-06-25] MEDS: AZITHROMYCIN 500 MG TAB PO STA (16:04)
[2024-06-25 16:11] VITALS: BP 130/68; PULSE 76; TEMP 98
== END 2024-06-25 16:33 | disposition home or self-care (01) ==
LOC: EC 13:54
DX: H66.93 Otitis media, unspecified, bilateral (principal); J06.9 Acute upper respiratory infection, unspecified; I11.0 Hypertensive heart disease with heart failure; I50.9 Heart failure, unspecified; J44.9 Chronic obstructive pulmonary disease, unspecified; E11.9 Type 2 diabetes mellitus without complications; Z87.891 Personal history of nicotine dependence; Z91.041 Radiographic dye allergy status; Z91.010 Allergy to peanuts; Z88.0 Allergy status to penicillin; Z91.013 Allergy to seafood; Z88.1 Allergy status to other antibiotic agents; Z88.8 Allergy status to other drugs, medicaments and biological substances
CPT/HCPCS: 71046; 81001; 81025; 87636; 87651; 99283

== ENCOUNTER 2024-06-26 21:22 | Emergency (ER) | payer OTHER ==
[2024-06-26] MEDS: LIDOCAINE VISCOUS 2% 15 ML CUP PO ONE (22:11)
[2024-06-26] MEDS: DEXAMETHASONE SOD PHOSPHATE 10 MG/ML 1 ML VIAL IM STA (22:11)
[2024-06-26] MEDS: AZITHROMYCIN 500 MG TAB PO STA (22:11)
--- NOTE | 2024-06-26 22:13 | ED ---
ENT HPI - General Chief complaint: ENT Stated complaint: Sore Throat Time Seen by Provider: 06/26/24 21:31 Source: patient, RN notes reviewed Mode of arrival: ambulatory Limitations: no limitations - History of Present Illness Initial comments: This is a 44-year-old female who presents to the emergency department for a sore throat. Patient was evaluated here yesterday for the symptoms and given a prescription for azithromycin. States that this is in a bubble wrap and because of that the assisted will not give her the medication. She continues to have the sore throat and coughing. MD complaint: sore throat - Related Data Previous Rx's Medication Instructions Recorded Naltrexone HCl [Revia] 50 mg PO DAILY 30 Days #30 tab 04/25/24 Alcohol Antiseptic Pads [Alcohol 1 pad TOPICAL QID #120 pad 06/20/24 Swabs] Blood Sugar Diagnostic [Test 1 strip MISCELLANE QID #120 strip 06/20/24 Strips] Haloperidol Decanoate [Haldol D] 50 mg IM Q21D #1 each 06/20/24 Haloperidol Decanoate [Haldol D] 50 mg IM Q21D #1 each 06/20/24 Insulin Aspart [NovoLOG Flexpen] 3 units SQ AC-TID #5 each 06/20/24 Insulin Detemir (Levemir) [Levemir] 20 unit SQ DAILY@0700 #10 ml 06/20/24 Lancets 1 each MISCELLANE QID #120 each 06/20/24 Nystatin 100,000Unit/gm Cream 1 applic TOPICAL BID 30 Days #1 06/20/24 [Mycostatin Cream] each Syringe and Needle,Insulin,1Ml 1 syr SQ DIRECTED #120 each 06/20/24 [Insulin Syringe 28G 1/2" 1ML] fluvoxaMINE [Luvox] 200 mg PO HS 30 Days #120 tab 06/20/24 metFORMIN HCL [Glucophage] 1,000 mg PO BID-W/MEALS #120 tab 06/20/24 Pen Needle, Diabetic [Pen (Sandra) 1 needle SQ QID #120 each 06/22/24 Needle 4mm 32G (BD)] Omeprazole 20 mg PO DAILY #30 tab 06/23/24 Azithromycin [Zithromax Z Pack] 250 tab PO DIRECTED #4 tab 06/25/24 Guaifenesin/Dextromethorphan 1 each PO DIRECTED #20 capsule 06/25/24 [Robitussin Slqfa-Mbmka-Rwky Dm] Azithromycin [Zithromax] 250 mg PO DIRECTED 5 Days #6 tab 06/26/24 lidocaine HCL [Lidocaine HCl 10 ml MM Q4-6H PRN #100 ml 06/26/24 Viscous] Allergies Allergy/AdvReac Type Severity Reaction Status Date / Time Iodinated Contrast Media Allergy Anaphylaxis Verified 06/26/24 21:30 [Iodinated Contrast Media - IV Dye] lacosamide [From Vimpat] Allergy Anaphylaxis Verified 06/26/24 21:30 peanut Allergy Anaphylaxis Verified 06/26/24 21:30 Penicillins Allergy Anaphylaxis Verified 06/26/24 21:30 shellfish derived Allergy swelling Verified 06/26/24 21:30 all over body cephalexin monohydrate AdvReac Rash, Verified 06/26/24 21:30 [From Keflex] Nausea, Vomiting & Diarrhea trazodone AdvReac bp Verified 06/26/24 21:30 issues/dizziness Review of Systems ROS Statement: Those systems with pertinent positive or pertinent negative responses have been documented in the HPI. ROS Other: All systems not noted in ROS Statement are negative. Past Medical History Past Medical History: Asthma, Heart Failure, COPD, Diabetes Mellitus, Fibromyalgia, GERD/Reflux, GI Bleed, Hypertension, Liver Disease, Osteoarthritis (OA), Pneumonia, Seizure Disorder, Skin Disorder Additional Past Medical History / Comment(s): Bronchitis, gestational diabetes, seizures with last one 01/2024, sickle cell trait, liver cirrhosis, anemia, chrons, IBS, ulcerative colitis, lowr GI bleed, hemorrhoids, constipation, psoriasis, migraines, chronic low back and cervical pain, scoliosis, arhtritis in multiple joints, gout bilateral feet, History of Any Multi-Drug Resistant Organisms: None Reported Past Surgical History: Cholecystectomy, Orthopedic Surgery Additional Past Surgical History / Comment(s): L oophorectomy d/t cyst, D&C, colonoscopy, L carpal tunnel release, Past Anesthesia/Blood Transfusion Reactions: Motion Sickness, Postoperative Nausea & Vomiting (PONV) Past Psychological History: Anxiety, Bipolar, Depression, Schizophrenia Smoking Status: Former smoker Past Alcohol Use History: None Reported Past Drug Use History: Cocaine - Past Family History Mother History Unknown: Yes Family Medical History: Cancer Additional Family Medical History / Comment(s): Mother had breast cancer and metnal illness She is living. Father Family Medical History: Cancer Additional Family Medical History / Comment(s): Father is . He had agent orange exposure. He had liver cancer, bowel to brain cancer. General Exam Limitations: no limitations General appearance: alert, in no apparent distress Head exam: Present: atraumatic, normocephalic, normal inspection ENT exam: Present: other (Mild posterior pharyngeal erythema. No tonsillar hypertrophy or exudates) Respiratory exam: Present: normal lung sounds bilaterally. Absent: respiratory distress, wheezes, rales, rhonchi, stridor Cardiovascular Exam: Present: regular rate, normal rhythm, normal heart sounds. Absent: systolic murmur, diastolic murmur, rubs, gallop, clicks Neurological exam: Present: alert, oriented X3, CN II-XII intact Psychiatric exam: Present: normal affect, normal mood Skin exam: Present: warm, dry, intact, normal color. Absent: rash Course Vital Signs 06/26/24 06/26/24 06/26/24 21:28 22:27 22:44 Temperature 99.2 F Pulse Rate 67 68 68 Respiratory 18 Rate Blood Pressure 132/81 O2 Sat by Pulse 96 Oximetry 06/27/24 02:12 Temperature 99.0 F Pulse Rate 64 Respiratory 20 Rate Blood Pressure 147/79 O2 Sat by Pulse 95 Oximetry Medical Decision Making - Medical Decision Making This is a 44-year-old female who presents to the emergency department for a sore throat. Was pt. sent in by a medical professional or institution? @ -No Did you speak to anyone other than the patient for history? @ -No Did you review nursing and triage notes? @ -Yes, and I agree, it is accurate with regards to the patient's symptoms. Were old charts reviewed? @ -Chest x-ray from yesterday revealing no acute process. COVID, influenza, RSV, and rapid strep test from yesterday as well, which were all negative. Differential Diagnosis? @ -Differential Sore Throat: Strep pharyngitis, herpes zoster, COVID, influenza, GERD, allergic rhinitis, mononucleosis, this is not meant to be an all-inclusive list. EKG interpreted by me (3pts min.)? @ -Not obtained X-rays interpreted by me (1pt min.)? @ -Not obtained CT interpreted by me (1pt min.)? @ -Not obtained U/S interpreted by me (1pt. min.)? @ -Not obtained What testing was considered but not performed? (CT, X-rays, U/S, labs)? Why? @ -None What meds were considered but not given? Why? @ -None Did you discuss the management of the patient with other professionals? @ -Yes, Paola with EPS, who advised that the patient could be discharged home with a safety plan. Did you reconcile home meds? @ -No Was smoking cessation discussed for >3mins.? @ -No Was critical care preformed (if so, how long)? @ -No Were there social determinants of health that impacted care today? How? (Homelessness, low income, unemployed, alcoholism, drug addiction, transportation, low edu. Level, literacy, decrease access to med. care, shelter, rehab)? @ -No Was there de-escalation of care discussed even if they declined? (Discuss DNR or withdrawal of care, Hospice)? @ -No What co-morbidities impacted this encounter? (DM, HTN, Smoking, COPD, CAD, Cancer, CVA, Hep., AIDS, mental health diagnosis, sleep apnea, morbid obesity)? @ -COPD, DM Was patient admitted / discharged? @ -Discharged. Viscous lidocaine and missed dose of azithromycin administered in the emergency department. The prescription was resent, advised she also discuss the packaging issue with the pharmacy to see if that can be given to her without the bubble wrap packaging. Viscous lidocaine prescribed as well for further management of the sore throat. After the patient was about to be discharged, she was making suicidal statements and was then moved to room 14 and the procedure for EPS evaluation was followed. BAT was 0.0 and she was cleared for EPS evaluation. EPS evaluated the patient and advised that she is making these statements due to dislike for her assisted and frustrations with it. She does not meet inpatient psychiatric hospitalization criteria. Safety plan was completed with the patient which she was in agreement with and she was discharged back to [facility] in stable condition. Case discussed with ED attending Dr. Ramos. Return precautions reviewed in depth, the patient is instructed to return to the emergency department with any new, worsening, or concerning symptoms. Patient verbalized understanding. Undiagnosed new problem with uncertain prognosis? @ -None Drug Therapy requiring intensive monitoring for toxicity (Heparin, Nitro, Insulin, Cardizem)? @ -None Were any procedures done? @ -None Diagnosis/symptom? @ -Pharyngitis, unhappy with living situation Acute, or Chronic, or Acute on Chronic? @ -Acute Uncomplicated (without systemic symptoms) or Complicated (systemic symptoms)? @ -Uncomplicated Side effects of treatment? @ -None Exacerbation, Progression, or Severe Exacerbation] @ -Not applicable Poses a threat to life or bodily function? @ -No - Lab Data Lab Results 06/26/24 06/26/24 Range/Units 23:21 23:21 Urine Color Colorless Urine Appearance Clear (Clear) Urine pH 6.0 (5.0-8.0) Ur Specific [place] 1.018 (1.001-1.035) Urine Protein Negative (Negative) Urine Glucose (UA) Negative (Negative) Urine Ketones Negative (Negative) Urine Blood Negative (Negative) Urine Nitrite Negative (Negative) Urine Bilirubin Negative (Negative) Urine Urobilinogen <2.0 (<2.0) mg/dL Ur Leukocyte Esterase Trace H (Negative) Urine RBC <1 (0-5) /hpf Urine WBC 2 (0-5) /hpf Ur Squamous Epith Cells 1 (0-4) /hpf Urine Bacteria Rare H (None) /hpf Urine HCG, Qual Not Detected (Not Detectd) Urine Opiates Screen Not Detected (NotDetected) Ur Oxycodone Screen Not Detected (NotDetected) Urine Methadone Screen Not Detected (NotDetected) Ur Barbiturates Screen Not Detected (NotDetected) U Tricyclic Antidepress Not Detected (NotDetected) Ur Phencyclidine Scrn Not Detected (NotDetected) Ur Amphetamines Screen Not Detected (NotDetected) U Methamphetamines Scrn Not Detected (NotDetected) U Benzodiazepines Scrn Not Detected (NotDetected) Urine Cocaine Screen Not Detected (NotDetected) U Marijuana (THC) Screen Not Detected (NotDetected) Disposition Clinical Impression: Pharyngitis, Personal environment is unhappy Disposition: HOME SELF-CARE Instructions (If sedation given, give patient instructions): Pharyngitis (ED) Additional Instructions: Return to the emergency department with any new, worsening, or concerning symptoms. I sent the azithromycin in as a new prescription with instructions to see if the [facility] will give it to you like this. Discuss this with the pharmacy staff as well to see if it can be prepackaged. You can have the viscous lidocaine every 4-6 hours to help with the sore throat. Follow up with your primary care provider in 1-2 days. Prescriptions: lidocaine HCL [Lidocaine HCl Viscous] 10 ml MM Q4-6H PRN #100 ml PRN Reason: Sore Throat Azithromycin [Zithromax] 250 mg PO DIRECTED 5 Days #6 tab Is patient prescribed a controlled substance at d/c from ED?: No Referrals: Evelyn Blas MD [Primary Care Provider] - 1-2 days Time of Disposition: 22:13
[2024-06-26] MEDS: IPRATROPIUM-ALBUTEROL 3 ML NEB INHALATION STA (22:26)
[2024-06-26 23:42] LABS: Appearance,Urine Clear (Clear); Bacteria,Urine Rare /hpf; Bilirubin,Urine Negative (Negative); Blood,Urine Negative (Negative); Color,Urine Colorless; Glucose,Urine (UA) Negative (Negative); Ketones,Urine Negative (Negative); Leukocyte Esterase,Urine Trace (Negative); Nitrite,Urine Negative (Negative); Protein,Urine Negative (Negative); RBC,Urine <1 /hpf (0-5); Specific Gravity,Urine 1.018 (1.001-1.035); Squamous Epithelial Cell,Urine 1 /hpf (0-4); Urobilinogen,Urine <2.0 mg/dL (<2.0); WBC,Urine 2 /hpf (0-5)
[2024-06-26 23:50] LABS: Amphetamine Screen,Urine Not Detected (NotDetected); Barbiturate Screen,Urine Not Detected (NotDetected); Benzodiazepines Screen,Urine Not Detected (NotDetected); Cocaine Screen,Urine Not Detected (NotDetected); Methadone Screen, Urine Not Detected (NotDetected); Opiate Screen,Urine Not Detected (NotDetected); Oxycodone Screen, Urine Not Detected (NotDetected); Phencyclidine Screen,Urine Not Detected (NotDetected); Tricyclic Antidepressant,Urine Not Detected (NotDetected); Urn Cannabinoid Scrn Not Detected (NotDetected)
[2024-06-27 02:16] VITALS: BP 147/79; PULSE 64; RESP 20; TEMP 99
== END 2024-06-27 02:16 | disposition home or self-care (01) ==
LOC: EC 21:22
DX: J02.9 Acute pharyngitis, unspecified (principal); Z63.79 Other stressful life events affecting family and household; E11.9 Type 2 diabetes mellitus without complications; J44.9 Chronic obstructive pulmonary disease, unspecified; Z88.0 Allergy status to penicillin; Z88.1 Allergy status to other antibiotic agents; Z91.041 Radiographic dye allergy status; Z91.013 Allergy to seafood; Z88.8 Allergy status to other drugs, medicaments and biological substances; Z87.891 Personal history of nicotine dependence
CPT/HCPCS: 82075; 94640; 81001; 81025; 80306; 99283; 96372; J1100

== ENCOUNTER 2024-06-30 16:41 | Emergency (ER) | payer OTHER ==
--- NOTE | 2024-06-30 17:13 | ED ---
URI HPI - General Source: patient, RN notes reviewed Mode of arrival: ambulatory Limitations: no limitations - History of Present Illness Onset/Timin -: days(s) <Catalino Love - Last Filed: 06/30/24 17:12> - General Source: patient, RN notes reviewed, old records reviewed <Elliott Webb - Last Filed: 06/30/24 22:32> - General Stated Complaint: Vomiting Time Seen by Provider: 06/30/24 16:53 - History of Present Illness Initial Comments: ": This is a 44-year-old female presenting with nausea/vomiting, URI symptoms, throat swelling and wheezing x 5 days. Patient states she came to the ER with initial symptoms and was prescribed steroids and antibiotics with now worsening symptoms. Patient states she is unable to hold down food or liquid. (IvanCatalino soares) Is a 44-year-old female who presents from her living facility over concern for URI symptoms. Recently completed course of antibiotics with steroids. Is still having URI symptoms. States she also gets posttussive emesis. I evaluated patient when she was placed in a room. She states she is being admitted until Wednesday. I informed her that it depends on her workup as vital signs are within acceptable limits and she is in no respiratory distress at this time. She expressed understanding. We will obtain basic labs, infectious labs, as well as chest x-ray. Symptomatically treated with albuterol inhaler and breathing treatment, as well as IV steroids, Zofran, fluids. She was in agreement this plan. Also requesting a dose of her normal Zonegran. (Elliott Webb) - Related Data Previous Rx's Medication Instructions Recorded Naltrexone HCl [Revia] 50 mg PO DAILY 30 Days #30 tab 04/25/24 Alcohol Antiseptic Pads [Alcohol 1 pad TOPICAL QID #120 pad 06/20/24 Swabs] Blood Sugar Diagnostic [Test 1 strip MISCELLANE QID #120 strip 06/20/24 Strips] Haloperidol Decanoate [Haldol D] 50 mg IM Q21D #1 each 06/20/24 Haloperidol Decanoate [Haldol D] 50 mg IM Q21D #1 each 06/20/24 Insulin Aspart [NovoLOG Flexpen] 3 units SQ AC-TID #5 each 06/20/24 Insulin Detemir (Levemir) [Levemir] 20 unit SQ DAILY@0700 #10 ml 06/20/24 Lancets 1 each MISCELLANE QID #120 each 06/20/24 Nystatin 100,000Unit/gm Cream 1 applic TOPICAL BID 30 Days #1 06/20/24 [Mycostatin Cream] each Syringe and Needle,Insulin,1Ml 1 syr SQ DIRECTED #120 each 06/20/24 [Insulin Syringe 28G 1/2" 1ML] fluvoxaMINE [Luvox] 200 mg PO HS 30 Days #120 tab 06/20/24 metFORMIN HCL [Glucophage] 1,000 mg PO BID-W/MEALS #120 tab 06/20/24 Pen Needle, Diabetic [Pen (Sandra) 1 needle SQ QID #120 each 06/22/24 Needle 4mm 32G (BD)] Omeprazole 20 mg PO DAILY #30 tab 06/23/24 Azithromycin [Zithromax Z Pack] 250 tab PO DIRECTED #4 tab 06/25/24 Guaifenesin/Dextromethorphan 1 each PO DIRECTED #20 capsule 06/25/24 [Robitussin Raupv-Swjno-Hfpp Dm] Azithromycin [Zithromax] 250 mg PO DIRECTED 5 Days #6 tab 06/26/24 lidocaine HCL [Lidocaine HCl 10 ml MM Q4-6H PRN #100 ml 06/26/24 Viscous] Albuterol Sulfate [Ventolin HFA] 1 puff INHALATION Q6H PRN #1 each 06/30/24 Azithromycin [Zithromax] 250 mg PO DAILY 4 Days #4 tab 06/30/24 predniSONE [Deltasone] 40 mg PO BID 5 Days #10 tab 06/30/24 Allergies Allergy/AdvReac Type Severity Reaction Status Date / Time Iodinated Contrast Media Allergy Anaphylaxis Verified 06/26/24 21:30 [Iodinated Contrast Media - IV Dye] lacosamide [From Vimpat] Allergy Anaphylaxis Verified 06/26/24 21:30 peanut Allergy Anaphylaxis Verified 06/26/24 21:30 Penicillins Allergy Anaphylaxis Verified 06/26/24 21:30 shellfish derived Allergy swelling Verified 06/26/24 21:30 all over body cephalexin monohydrate AdvReac Rash, Verified 06/26/24 21:30 [From Keflex] Nausea, Vomiting & Diarrhea trazodone AdvReac bp Verified 06/26/24 21:30 issues/dizziness Review of Systems ROS Other: All systems not noted in ROS Statement are negative. <Catalino Love - Last Filed: 06/30/24 17:12> ROS Other: All systems not noted in ROS Statement are negative. <Elliott Webb - Last Filed: 06/30/24 22:32> ROS Statement: Those systems with pertinent positive or pertinent negative responses have been documented in the HPI. Review of Systems: CONST: Denies fever EYES: Denies blurry vision ENT: Endorses nasal congestion, cough C/V: Denies Chest pain RESP: Denies shortness of breath GI: Denies abdominal pain : Denies dysuria SKIN: Denies rash. MSK: Denies joint pain. NEURO: Denies headache (Elliott Webb) Past Medical History Past Medical History: Asthma, Heart Failure, COPD, Diabetes Mellitus, Fibromyalgia, GERD/Reflux, GI Bleed, Hypertension, Liver Disease, Osteoarthritis (OA), Pneumonia, Seizure Disorder, Skin Disorder Additional Past Medical History / Comment(s): Bronchitis, gestational diabetes, seizures with last one 01/2024, sickle cell trait, liver cirrhosis, anemia, chrons, IBS, ulcerative colitis, lowr GI bleed, hemorrhoids, constipation, psoriasis, migraines, chronic low back and cervical pain, scoliosis, arhtritis in multiple joints, gout bilateral feet, History of Any Multi-Drug Resistant Organisms: None Reported Past Surgical History: Cholecystectomy, Orthopedic Surgery Additional Past Surgical History / Comment(s): L oophorectomy d/t cyst, D&C, colonoscopy, L carpal tunnel release, Past Anesthesia/Blood Transfusion Reactions: Motion Sickness, Postoperative Nausea & Vomiting (PONV) Past Psychological History: Anxiety, Bipolar, Depression, Schizophrenia Smoking Status: Former smoker Past Alcohol Use History: None Reported Past Drug Use History: Cocaine - Past Family History Mother History Unknown: Yes Family Medical History: Cancer Additional Family Medical History / Comment(s): Mother had breast cancer and metnal illness She is living. Father Family Medical History: Cancer Additional Family Medical History / Comment(s): Father is . He had agent orange exposure. He had liver cancer, bowel to brain cancer. <Catalino Love - Last Filed: 06/30/24 17:12> General Exam <Catalino Love - Last Filed: 06/30/24 17:12> <Elliott Webb - Last Filed: 06/30/24 22:32> - General Exam Comments Initial Comments: Visual Physical Exam Vital signs reviewed General: Well-appearing, nontoxic, no acute distress. Head: Normocephalic, atraumatic Eyes: PERRLA, EOMI ENT: Airway patent Chest: Nonlabored breathing Skin: No visual rash, normal skin tone Neuro: Alert and oriented 3 Musculoskeletal: No gross abnormalities (Catalino Love) General: Appears in no acute distress. Afebrile HEAD: Normal with no signs of head trauma. EYES: EOMI ENT: Hearing grossly intact, normal oropharynx. RESPIRATORY: Bilateral end expiratory wheezing that is mild. No significant hypoxia or increased work of breathing. C/V: Regular rate and rhythm. S1 and S2 auscultated, peripheral pulses 2+ and intact throughout ABD: Abd is soft, nontender, nondistended EXT: No obvious deformity SKIN: No rashes or lesions observed on exposed skin. NEURO: Alert oriented x 4. (Elliott Webb) Course Vital Signs 06/30/24 06/30/24 06/30/24 17:19 18:55 19:05 Temperature 98.3 F Pulse Rate 61 60 66 Respiratory 16 Rate Blood Pressure 144/77 O2 Sat by Pulse 98 Oximetry 06/30/24 20:26 Temperature Pulse Rate 59 L Respiratory 16 Rate Blood Pressure 116/75 O2 Sat by Pulse 95 Oximetry Medical Decision Making <Catalino Love - Last Filed: 06/30/24 17:12> - Lab Data Result diagrams: 06/30/24 18:35 06/30/24 18:35 <Elliott Webb - Last Filed: 06/30/24 22:32> - Medical Decision Making I completed the quick note portion of this chart signed SHELBY Brock (Catalino Love) Was pt. sent in by a medical professional or institution (CLIF Ramirez, CUP MACHINE OPERATOR, urgent care, hospital, or alf...) When possible be specific @ -No Did you speak to anyone other than the patient for history (EMS, parent, family, police, friend...)? What history was obtained from this source @ -No Did you review nursing and triage notes (agree or disagree)? Why? @ -I reviewed and agree with nursing and triage notes Were old charts reviewed (outside hosp., previous admission, EMS record, old EKG, old radiological studies, urgent care reports/EKG's, alf records)? Report findings @ -No old charts were reviewed Differential Diagnosis (chest pain, altered mental status, abdominal pain women, abdominal pain men, vaginal bleeding, weakness, fever, dyspnea, syncope, h eadache, dizziness, GI bleed, back pain, seizure, CVA, palpatations, mental health, musculoskeletal)? @ -COVID, flu, RSV, asthma. This list is not all inclusive. EKG interpreted by me (3pts min.). @ -None done X-rays interpreted by me (1pt min.). @ -X-ray reveals bibasilar opacity. Likely atelectasis but cannot definitively rule out pneumonia at this time. CT interpreted by me (1pt min.). @ -None done U/S interpreted by me (1pt. min.). @ -None done What testing was considered but not performed or refused? (CT, X-rays, U/S, labs)? Why? @ -None What meds were considered but not given or refused? Why? @ -None Did you discuss the management of the patient with other professionals (prof sebastians i.e. , PA, CUP MACHINE OPERATOR, lab, RT, psych nurse, social service agency director, vamp stitcher, teacher, senior major gifts officer, ed case manager)? Give summary @ -No Was smoking cessation discussed for >3mins.? @ -No Was critical care preformed (if so, how long)? @ -No Were there social determinants of health that impacted care today? How? (Homelessness, low income, unemployed, alcoholism, drug addiction, transportation, low edu. Level, literacy, decrease access to med. care, prison, rehab)? @ -No Was there de-escalation of care discussed even if they declined (Discuss DNR or withdrawal of care, Hospice)? DNR status @ -No What co-morbidities impacted this encounter? (DM, HTN, Smoking, COPD, CAD, Cancer, CVA, ARF, Chemo, Hep., AIDS, mental health diagnosis, sleep apnea, morbid obesity)? @ -Asthma Was patient admitted / discharged? Hospital course, mention meds given and route, prescriptions, significant lab abnormalities, going to OR and other pertinent info. @ -Presents with URI symptoms. Vitals within acceptable limits. We will obtain basic labs as she recently completed a course of antibiotics and still symptomatic. She will be symptomatically treat with IV steroids, fluids, Zofran. She was in agreement this plan. We will obtain basic labs. Chest x-ray shows likely atelectasis and by basilar macias however cannot definitively rule out pneumonia she is still having symptoms. Labs remarkable for mild leukocytosis of 15 however patient just completed a course of steroids yesterday and this is likely reactive from that. Negative viral swabs. Negative strep swab. On reevaluation, I discussed results with the patient. She states she is still nauseous but she was able to hold down medications. I believe it is safer to be discharged home at this time and she will be given prescription for antibiotic as well as steroid as well as albuterol. She is asking to be admitted however I did inform her that workup was relatively unremarkable and I believe it is safer to be discharged home at this time. She was in agreement this plan. She will be given paper prescriptions with instructions to have her facility attempted fill them for her as she is not near her normal pharmacy. She was in agreement this plan. I will provide the patient with a prescription for prednisone, albuterol inhaler, azithromycin. I instructed the patient to follow up with their PCP in the next 1-3 days. I explained that the patient should return to the emergency department if they experience any worsening symptoms. Strict return precautions were discussed with the patient. The patient expressed understanding of these instructions. I answered all questions that the patient had. The patient was discharged home in good condition with their prescriptions and follow up information. Patient remains in no respiratory distress. Vitals are within acceptable limits with no hypoxia. Undiagnosed new problem with uncertain prognosis? @ -No Drug Therapy requiring intensive monitoring for toxicity (Heparin, Nitro, Insulin, Cardizem)? @ -No Were any procedures done? @ -No Diagnosis/symptom? @ -Asthma, tracheobronchitis Acute, or Chronic, or Acute on Chronic? @ -Acute Uncomplicated (without systemic symptoms) or Complicated (systemic symptoms)? @ -Uncomplicated Side effects of treatment? @ -No Exacerbation, Progression, or Severe Exacerbation? @ -No Poses a threat to life or bodily function? How? (Chest pain, USA, NC, pneumonia, PE, COPD, DKA, ARF, appy, cholecystitis, CVA, Diverticulitis, Homicidal, Suicidal, threat to staff... and all critical care pts) @ -Unlikely at this time (Elliott Webb) - Lab Data Lab Results 06/30/24 06/30/24 06/30/24 Range/Units 17:46 17:46 18:35 WBC 15.2 H (3.8-10.6) k/uL RBC 4.38 (3.80-5.40) m/uL Hgb 12.5 (11.4-16.0) gm/dL Hct 38.2 (34.0-46.0) % MCV 87.3 (80.0-100.0) fL MCH 28.6 (25.0-35.0) pg MCHC 32.8 (31.0-37.0) g/dL RDW 16.1 H (11.5-15.5) % Plt Count 232 (150-450) k/uL MPV 7.1 Neutrophils % 74 % Lymphocytes % 17 % Monocytes % 4 % Eosinophils % 3 % Basophils % 0 % Neutrophils # 11.3 H (1.3-7.7) k/uL Lymphocytes # 2.6 (1.0-4.8) k/uL Monocytes # 0.7 (0-1.0) k/uL Eosinophils # 0.5 (0-0.7) k/uL Basophils # 0.1 (0-0.2) k/uL Anisocytosis Slight Sodium (137-145) mmol/L Potassium (3.5-5.1) mmol/L Chloride (98-107) mmol/L Carbon Dioxide (22-30) mmol/L Anion Gap mmol/L BUN (7-17) mg/dL Creatinine (0.52-1.04) mg/dL Est GFR (CKD-EPI)AfAm (>60 ml/min/1.73 sqM) Est GFR (CKD-EPI)NonAf (>60 ml/min/1.73 sqM) Glucose (74-99) mg/dL Calcium (8.4-10.2) mg/dL Influenza Type A (PCR) Not Detected (Not Detectd) Influenza Type B (PCR) Not Detected (Not Detectd) RSV (PCR) Not Detected (Not Detectd) SARS-CoV-2 (PCR) Not Detected (Not Detectd) Group A Strep (PCR) NOT DETECTED (Not Detectd) 06/30/24 Range/Units 18:35 WBC (3.8-10.6) k/uL RBC (3.80-5.40) m/uL Hgb (11.4-16.0) gm/dL Hct (34.0-46.0) % MCV (80.0-100.0) fL MCH (25.0-35.0) pg MCHC (31.0-37.0) g/dL RDW (11.5-15.5) % Plt Count (150-450) k/uL MPV Neutrophils % % Lymphocytes % % Monocytes % % Eosinophils % % Basophils % % Neutrophils # (1.3-7.7) k/uL Lymphocytes # (1.0-4.8) k/uL Monocytes # (0-1.0) k/uL Eosinophils # (0-0.7) k/uL Basophils # (0-0.2) k/uL Anisocytosis Sodium 136 L (137-145) mmol/L Potassium 4.2 (3.5-5.1) mmol/L Chloride 107 (98-107) mmol/L Carbon Dioxide 24 (22-30) mmol/L Anion Gap 5 mmol/L BUN 18 H (7-17) mg/dL Creatinine 0.71 (0.52-1.04) mg/dL Est GFR (CKD-EPI)AfAm >90 (>60 ml/min/1.73 sqM) Est GFR (CKD-EPI)NonAf >90 (>60 ml/min/1.73 sqM) Glucose 128 H (74-99) mg/dL Calcium 8.8 (8.4-10.2) mg/dL Influenza Type A (PCR) (Not Detectd) Influenza Type B (PCR) (Not Detectd) RSV (PCR) (Not Detectd) SARS-CoV-2 (PCR) (Not Detectd) Group A Strep (PCR) (Not Detectd) Disposition <Catalino Love - Last Filed: 06/30/24 17:12> Is patient prescribed a controlled substance at d/c from ED?: No Time of Disposition: 19:56 <Elliott Webb - Last Filed: 06/30/24 22:32> Clinical Impression: Tracheobronchitis, Asthma Disposition: HOME SELF-CARE Condition: Good Instructions (If sedation given, give patient instructions): Asthma (ED), Acute Bronchitis (ED) Prescriptions: predniSONE [Deltasone] 40 mg PO BID 5 Days #10 tab Albuterol Sulfate [Ventolin HFA] 1 puff INHALATION Q6H PRN #1 each PRN Reason: Wheezing Azithromycin [Zithromax] 250 mg PO DAILY 4 Days #4 tab Referrals: Evelyn Blas MD [Primary Care Provider] - 1-2 days
[2024-06-30 17:21] VITALS: RESP 16; TEMP 98.3
--- NOTE | 2024-06-30 17:50 | XR ---
EXAMINATION TYPE: XR chest 2V DATE OF EXAM: 06/30/2024 5:39 PM COMPARISON: 06/25/2024 CLINICAL INDICATION: Female, 44 years old with history of wheezing; [facility] TECHNIQUE: XR chest 2V Frontal and lateral views of the chest. FINDINGS: Lungs/Pleura: Low lung volumes are present with airspace opacities in the lung bases. There is no omi dence of pleural effusion, focal consolidation, or pneumothorax. Pulmonary vascularity: Unremarkable. Heart/mediastinum: Cardiomediastinal silhouette is unremarkable. Musculoskeletal: No acute osseous pathology. IMPRESSION: Low lung volumes with basilar airspace opacities possibly representing atelectasis versus pneumonia. [facility], , 06/30/2024 5:48 PM
[2024-06-30] MEDS: SODIUM CHLORIDE 0.9% 1,000 ML IV STA (18:35)
[2024-06-30] MEDS: ZONISAMIDE 100 MG CAP PO STA (18:42)
[2024-06-30 18:45] LABS: Anisocytosis Slight; Basophils # (A) 0.1 k/uL (0-0.2); Basophils % (A) 0 %; Eosinophils # (A) 0.5 k/uL (0-0.7); Eosinophils % (A) 3 %; HCT 38.2 % (34.0-46.0); HGB 12.5 gm/dL (11.4-16.0); Lymphocytes # (A) 2.6 k/uL (1.0-4.8); Lymphocytes % (A) 17 %; MCH 28.6 pg (25.0-35.0); MCHC 32.8 g/dL (31.0-37.0); MCV 87.3 fL (80.0-100.0); Mean Platelet Volume 7.1; Monocytes # (A) 0.7 k/uL (0-1.0); Monocytes % (A) 4 %; Neutrophils # (A) 11.3 k/uL (1.3-7.7); Neutrophils % (A) 74 %; Platelet Count 232 k/uL (150-450); RBC 4.38 m/uL (3.80-5.40); RDW 16.1 % (11.5-15.5); WBC 15.2 k/uL (3.8-10.6)
[2024-06-30] MEDS: ONDANSETRON 4 MG/2 ML VIAL IVP STA (18:51)
[2024-06-30] MEDS: methylPREDNISolone SOD SUCCI 125 MG/2 ML VIAL IV STA (18:51)
[2024-06-30] MEDS: IPRATROPIUM-ALBUTEROL 3 ML NEB INHALATION STA (18:53)
[2024-06-30 19:04] LABS: African American GFR (CKD) >90 (>60 ml/min/1.73 sqM); Anion Gap 5 mmol/L; Blood Urea Nitrogen 18 mg/dL (7-17); Calcium 8.8 mg/dL (8.4-10.2); Carbon Dioxide 24 mmol/L (22-30); Chloride 107 mmol/L (98-107); Glucose 128 mg/dL (74-99); Non-African American GFR(CKD) >90 (>60 ml/min/1.73 sqM); Potassium 4.2 mmol/L (3.5-5.1); Sodium 136 mmol/L (137-145)
[2024-06-30] MEDS: ALBUTEROL HFA INHALER INHALATION STA (20:22)
[2024-06-30] MEDS: ONDANSETRON 4 MG ODT STARTER PACK 2 TAB BTL PO STA (20:24)
[2024-06-30] MEDS: AZITHROMYCIN 500 MG TAB PO STA (20:24)
[2024-06-30 20:29] VITALS: BP 116/75; PULSE 59
== END 2024-06-30 20:26 | disposition home or self-care (01) ==
LOC: EC 16:41
DX: J40 Bronchitis, not specified as acute or chronic (principal); J44.89 Other specified chronic obstructive pulmonary disease; Z87.891 Personal history of nicotine dependence; Z88.0 Allergy status to penicillin; Z91.041 Radiographic dye allergy status; Z91.010 Allergy to peanuts; Z91.013 Allergy to seafood; Z88.8 Allergy status to other drugs, medicaments and biological substances
CPT/HCPCS: 36415; 94640; 87651; 80048; 85025; 87636; 71046; 99284; 96374; 96375; 96361 ×2; J2405; S0119; J2919

== ENCOUNTER 2024-07-01 09:39 | Emergency (ER) | payer OTHER ==
[2024-07-01 09:49] LABS: Glucose,Whole Blood 407 mg/dL (70-110)
[2024-07-01 10:01] LABS: Appearance,Urine Clear (Clear); Bilirubin,Urine Negative (Negative); Blood,Urine Negative (Negative); Color,Urine Colorless; Glucose,Urine (UA) 4+ (Negative); Ketones,Urine Trace (Negative); Leukocyte Esterase,Urine Negative (Negative); Nitrite,Urine Negative (Negative); Protein,Urine Negative (Negative); Specific Gravity,Urine 1.014 (1.001-1.035); Urobilinogen,Urine <2.0 mg/dL (<2.0)
--- NOTE | 2024-07-01 10:19 | ED ---
Recheck HPI - General Chief Complaint: Recheck/Abnormal Lab/Rx Stated Complaint: high blood sugar Time Seen by Provider: 07/01/24 10:05 Source: patient, RN notes reviewed Mode of arrival: wheelchair Limitations: no limitations - History of Present Illness Initial Comments: This is a 44-year-old female who presents to the emergency department for hyperglycemia. Patient states that her blood sugar was over 400. She complains of some abdominal pain and increased urination. Also reports nausea and vomiting. Reports taking her medication as prescribed. States that she has been in DKA before, but it has been many years. Denies any chest pain or shortness of breath. MD Complaint: abnormal lab - Related Data Previous Rx's Medication Instructions Recorded Naltrexone HCl [Revia] 50 mg PO DAILY 30 Days #30 tab 04/25/24 Alcohol Antiseptic Pads [Alcohol 1 pad TOPICAL QID #120 pad 06/20/24 Swabs] Blood Sugar Diagnostic [Test 1 strip MISCELLANE QID #120 strip 06/20/24 Strips] Haloperidol Decanoate [Haldol D] 50 mg IM Q21D #1 each 06/20/24 Haloperidol Decanoate [Haldol D] 50 mg IM Q21D #1 each 06/20/24 Insulin Aspart [NovoLOG Flexpen] 3 units SQ AC-TID #5 each 06/20/24 Insulin Detemir (Levemir) [Levemir] 20 unit SQ DAILY@0700 #10 ml 06/20/24 Lancets 1 each MISCELLANE QID #120 each 06/20/24 Nystatin 100,000Unit/gm Cream 1 applic TOPICAL BID 30 Days #1 06/20/24 [Mycostatin Cream] each Syringe and Needle,Insulin,1Ml 1 syr SQ DIRECTED #120 each 06/20/24 [Insulin Syringe 28G 1/2" 1ML] fluvoxaMINE [Luvox] 200 mg PO HS 30 Days #120 tab 06/20/24 metFORMIN HCL [Glucophage] 1,000 mg PO BID-W/MEALS #120 tab 06/20/24 Pen Needle, Diabetic [Pen (Sandra) 1 needle SQ QID #120 each 06/22/24 Needle 4mm 32G (BD)] Omeprazole 20 mg PO DAILY #30 tab 06/23/24 Azithromycin [Zithromax Z Pack] 250 tab PO DIRECTED #4 tab 06/25/24 Guaifenesin/Dextromethorphan 1 each PO DIRECTED #20 capsule 06/25/24 [Robitussin Pwgwy-Pfnty-Tefx Dm] Azithromycin [Zithromax] 250 mg PO DIRECTED 5 Days #6 tab 06/26/24 lidocaine HCL [Lidocaine HCl 10 ml MM Q4-6H PRN #100 ml 06/26/24 Viscous] Albuterol Sulfate [Ventolin HFA] 1 puff INHALATION Q6H PRN #1 each 06/30/24 Azithromycin [Zithromax] 250 mg PO DAILY 4 Days #4 tab 06/30/24 predniSONE [Deltasone] 40 mg PO BID 5 Days #10 tab 06/30/24 Allergies Allergy/AdvReac Type Severity Reaction Status Date / Time Iodinated Contrast Media Allergy Anaphylaxis Verified 06/26/24 21:30 [Iodinated Contrast Media - IV Dye] lacosamide [From Vimpat] Allergy Anaphylaxis Verified 06/26/24 21:30 peanut Allergy Anaphylaxis Verified 06/26/24 21:30 Penicillins Allergy Anaphylaxis Verified 06/26/24 21:30 shellfish derived Allergy swelling Verified 06/26/24 21:30 all over body cephalexin monohydrate AdvReac Rash, Verified 06/26/24 21:30 [From Keflex] Nausea, Vomiting & Diarrhea trazodone AdvReac bp Verified 06/26/24 21:30 issues/dizziness Review of Systems ROS Statement: Those systems with pertinent positive or pertinent negative responses have been documented in the HPI. ROS Other: All systems not noted in ROS Statement are negative. Past Medical History Past Medical History: Asthma, Heart Failure, COPD, Diabetes Mellitus, Fibromyalgia, GERD/Reflux, GI Bleed, Hypertension, Liver Disease, Osteoarthritis (OA), Pneumonia, Seizure Disorder, Skin Disorder Additional Past Medical History / Comment(s): Bronchitis, gestational diabetes, seizures with last one 01/2024, sickle cell trait, liver cirrhosis, anemia, chrons, IBS, ulcerative colitis, lowr GI bleed, hemorrhoids, constipation, psoriasis, migraines, chronic low back and cervical pain, scoliosis, arhtritis in multiple joints, gout bilateral feet, History of Any Multi-Drug Resistant Organisms: None Reported Past Surgical History: Cholecystectomy, Orthopedic Surgery Additional Past Surgical History / Comment(s): L oophorectomy d/t cyst, D&C, colonoscopy, L carpal tunnel release, Past Anesthesia/Blood Transfusion Reactions: Motion Sickness, Postoperative Nausea & Vomiting (PONV) Past Psychological History: Anxiety, Bipolar, Depression, Schizophrenia Smoking Status: Former smoker Past Alcohol Use History: None Reported Past Drug Use History: Cocaine - Past Family History Mother History Unknown: Yes Family Medical History: Cancer Additional Family Medical History / Comment(s): Mother had breast cancer and metnal illness She is living. Father Family Medical History: Cancer Additional Family Medical History / Comment(s): Father is . He had agent orange exposure. He had liver cancer, bowel to brain cancer. General Exam Limitations: no limitations General appearance: alert, in no apparent distress Head exam: Present: atraumatic, normocephalic, normal inspection Respiratory exam: Present: normal lung sounds bilaterally. Absent: respiratory distress, wheezes, rales, rhonchi, stridor Cardiovascular Exam: Present: regular rate, normal rhythm, normal heart sounds. Absent: systolic murmur, diastolic murmur, rubs, gallop, clicks GI/Abdominal exam: Present: soft, normal bowel sounds. Absent: distended, tenderness, guarding, rebound, rigid Neurological exam: Present: alert, oriented X3, CN II-XII intact Psychiatric exam: Present: normal affect, normal mood Skin exam: Present: warm, dry, intact, normal color. Absent: rash Course Vital Signs 07/01/24 07/01/24 09:44 14:43 Temperature 98.9 F 98.7 F Pulse Rate 66 74 Respiratory 20 18 Rate Blood Pressure 132/66 174/93 O2 Sat by Pulse 96 97 Oximetry Medical Decision Making - Medical Decision Making This is a 44-year-old female who presents to the emergency department for abdominal pain and hyperglycemia. Was pt. sent in by a medical professional or institution? @ -No Did you speak to anyone other than the patient for history? @ -No Did you review nursing and triage notes? @ -Yes, and I agree, it is accurate with regards to the patient's symptoms. Were old charts reviewed? @ -No Differential Diagnosis? @ -Differential Abdominal Pain Women: Appendicitis, Cholecystitis, diverticulosis, ischemic bowel, pancreatitis, hepatitis, UTI, gastroenteritis, AAA, incarcerated hernia, bowel obstruction, constipation, inflammatory bowel, hepatitis, peptic ulcer disease, splenic infarction, perforated viscus, vulvitis, ovarian torsion, PID, kidney stone, placenta abruption, this is not meant to be an all-inclusive list EKG interpreted by me (3pts min.)? @ -EKG interpreted by me demonstrating the following: Sinus rhythm. Ventricular rate 66 bpm, [place] interval 155 ms, QRS duration 169 ms, QTc of 463 ms. X-rays interpreted by me (1pt min.)? @ -Not obtained CT interpreted by me (1pt min.)? @ -CT scan of the abdomen and pelvis obtained. My interpretation identifies no evidence of bowel wall thickening or free air. U/S interpreted by me (1pt. min.)? @ -Not obtained What testing was considered but not performed? (CT, X-rays, U/S, labs)? Why? @ -None What meds were considered but not given? Why? @ -None Did you discuss the management of the patient with other professionals? @ -No Did you reconcile home meds? @ -No Was smoking cessation discussed for >3mins.? @ -No Was critical care preformed (if so, how long)? @ -No Were there social determinants of health that impacted care today? How? (Homelessness, low income, unemployed, alcoholism, drug addiction, transportation, low edu. Level, literacy, decrease access to med. care, fpc, rehab)? @ -No Was there de-escalation of care discussed even if they declined? (Discuss DNR or withdrawal of care, Hospice)? @ -No What co-morbidities impacted this encounter? (DM, HTN, Smoking, COPD, CAD, Cancer, CVA, Hep., AIDS, mental health diagnosis, sleep apnea, morbid obesity)? @ -DM Was patient admitted / discharged? @ -Discharged. Lab work demonstrates leukocytosis. Blood sugar was 407 on arrival. This was rechecked after a few hours and had come down to 216 on its own without any intervention. Acetone negative and patient is not in DKA. Ur inalysis negative for signs of infection. Leukocytosis was thought to be related to patient's steroid use, however CT scan of the abdomen and pelvis was obtained to rule out any other acute intra-abdominal process. This revealed no acute findings. Symptoms were managed in the emergency department and she was eating a turkey sandwich and drinking jose maria l without any difficulty. She was sent home with Zofran to take as needed for any additional nausea and advised to slowly advance her diet as tolerated and remain well hydrated. Patient discharged home in stable condition. Case discussed with ED attending Dr. Webb. Return precautions reviewed in depth, the patient is instructed to return to the emergency department with any new, worsening, or concerning symptoms. Patient verbalized understanding. Undiagnosed new problem with uncertain prognosis? @ -None Drug Therapy requiring intensive monitoring for toxicity (Heparin, Nitro, Insulin, Cardizem)? @ -None Were any procedures done? @ -None Diagnosis/symptom? @ -Hyperglycemia, abdominal pain Acute, or Chronic, or Acute on Chronic? @ -Acute Uncomplicated (without systemic symptoms) or Complicated (systemic symptoms)? @ -Uncomplicated Side effects of treatment? @ -None Exacerbation, Progression, or Severe Exacerbation] @ -Not applicable Poses a threat to life or bodily function? @ -No - Lab Data Result diagrams: 07/01/24 10:20 07/01/24 10:20 Lab Results 07/01/24 07/01/24 07/01/24 Range/Units 09:40 09:47 10:20 WBC 18.5 H (3.8-10.6) k/uL RBC 4.51 (3.80-5.40) m/uL Hgb 12.7 (11.4-16.0) gm/dL Hct 40.1 (34.0-46.0) % MCV 88.8 (80.0-100.0) fL MCH 28.1 (25.0-35.0) pg MCHC 31.7 (31.0-37.0) g/dL RDW 16.2 H (11.5-15.5) % Plt Count 244 (150-450) k/uL MPV 7.3 Neutrophils % 90 % Lymphocytes % 7 % Monocytes % 2 % Eosinophils % 1 % Basophils % 0 % Neutrophils # 16.6 H (1.3-7.7) k/uL Lymphocytes # 1.3 (1.0-4.8) k/uL Monocytes # 0.4 (0-1.0) k/uL Eosinophils # 0.1 (0-0.7) k/uL Basophils # 0.0 (0-0.2) k/uL Hypochromasia Slight Anisocytosis Slight Sodium (137-145) mmol/L Potassium (3.5-5.1) mmol/L Chloride (98-107) mmol/L Carbon Dioxide (22-30) mmol/L Anion Gap mmol/L BUN (7-17) mg/dL Creatinine (0.52-1.04) mg/dL Est GFR (CKD-EPI)AfAm (>60 ml/min/1.73 sqM) Est GFR (CKD-EPI)NonAf (>60 ml/min/1.73 sqM) Glucose (74-99) mg/dL POC Glucose (mg/dL) 407 H (70-110) mg/dL POC Glu Laboratory Chemist ID De Jesus Valentina Calcium (8.4-10.2) mg/dL Magnesium (1.6-2.3) mg/dL Total Bilirubin (0.2-1.3) mg/dL AST (14-36) U/L ALT (4-34) U/L Alkaline Phosphatase (38-126) U/L Total Protein (6.3-8.2) g/dL Albumin (3.5-5.0) g/dL Amylase (30-110) U/L Lipase (23-300) U/L Urine Color Colorless Urine Appearance Clear (Clear) Urine pH 6.0 (5.0-8.0) Ur Specific [place] 1.014 (1.001-1.035) Urine Protein Negative (Negative) Urine Glucose (UA) 4+ H (Negative) Urine Ketones Trace H (Negative) Urine Blood Negative (Negative) Urine Nitrite Negative (Negative) Urine Bilirubin Negative (Negative) Urine Urobilinogen <2.0 (<2.0) mg/dL Ur Leukocyte Esterase Negative (Negative) Acetone, Qual (Negative) 07/01/24 07/01/24 Range/Units 10:20 13:51 WBC (3.8-10.6) k/uL RBC (3.80-5.40) m/uL Hgb (11.4-16.0) gm/dL Hct (34.0-46.0) % MCV (80.0-100.0) fL MCH (25.0-35.0) pg MCHC (31.0-37.0) g/dL RDW (11.5-15.5) % Plt Count (150-450) k/uL MPV Neutrophils % % Lymphocytes % % Monocytes % % Eosinophils % % Basophils % % Neutrophils # (1.3-7.7) k/uL Lymphocytes # (1.0-4.8) k/uL Monocytes # (0-1.0) k/uL Eosinophils # (0-0.7) k/uL Basophils # (0-0.2) k/uL Hypochromasia Anisocytosis Sodium 134 L (137-145) mmol/L Potassium 4.7 (3.5-5.1) mmol/L Chloride 101 (98-107) mmol/L Carbon Dioxide 20 L (22-30) mmol/L Anion Gap 13 mmol/L BUN 21 H (7-17) mg/dL Creatinine 0.72 (0.52-1.04) mg/dL Est GFR (CKD-EPI)AfAm >90 (>60 ml/min/1.73 sqM) Est GFR (CKD-EPI)NonAf >90 (>60 ml/min/1.73 sqM) Glucose 373 H (74-99) mg/dL POC Glucose (mg/dL) 216 H (70-110) mg/dL POC Glu Laboratory Chemist ID Isael Daniel Calcium 9.1 (8.4-10.2) mg/dL Magnesium 1.7 (1.6-2.3) mg/dL Total Bilirubin 0.2 (0.2-1.3) mg/dL AST 45 H (14-36) U/L ALT 64 H (4-34) U/L Alkaline Phosphatase 112 (38-126) U/L Total Protein 7.5 (6.3-8.2) g/dL Albumin 4.1 (3.5-5.0) g/dL Amylase 45 (30-110) U/L Lipase 96 (23-300) U/L Urine Color Urine Appearance (Clear) Urine pH (5.0-8.0) Ur Specific [place] (1.001-1.035) Urine Protein (Negative) Urine Glucose (UA) (Negative) Urine Ketones (Negative) Urine Blood (Negative) Urine Nitrite (Negative) Urine Bilirubin (Negative) Urine Urobilinogen (<2.0) mg/dL Ur Leukocyte Esterase (Negative) Acetone, Qual Negative (Negative) - Radiology Data Radiology results: report reviewed, image reviewed Disposition Clinical Impression: Hyperglycemia, Abdominal pain Disposition: HOME SELF-CARE Instructions (If sedation given, give patient instructions): Abdominal Pain (ED), Diabetic Hyperglycemia (ED) Additional Instructions: Return to the emergency department with any new, worsening, or concerning symptoms. Follow up with your primary care provider in 1-2 days. Is patient prescribed a controlled substance at d/c from ED?: No Referrals: Evelyn Blas MD [Primary Care Provider] - 1-2 days
[2024-07-01 10:29] LABS: Anisocytosis Slight; Basophils % (A) 0 %; Eosinophils # (A) 0.1 k/uL (0-0.7); Eosinophils % (A) 1 %; HCT 40.1 % (34.0-46.0); HGB 12.7 gm/dL (11.4-16.0); Hypochromasia Slight; Lymphocytes # (A) 1.3 k/uL (1.0-4.8); Lymphocytes % (A) 7 %; MCH 28.1 pg (25.0-35.0); MCHC 31.7 g/dL (31.0-37.0); MCV 88.8 fL (80.0-100.0); Mean Platelet Volume 7.3; Monocytes # (A) 0.4 k/uL (0-1.0); Monocytes % (A) 2 %; Neutrophils # (A) 16.6 k/uL (1.3-7.7); Neutrophils % (A) 90 %; Platelet Count 244 k/uL (150-450); RBC 4.51 m/uL (3.80-5.40); RDW 16.2 % (11.5-15.5); WBC 18.5 k/uL (3.8-10.6)
[2024-07-01 10:41] LABS: AST 45 U/L (14-36); African American GFR (CKD) >90 (>60 ml/min/1.73 sqM); Albumin 4.1 g/dL (3.5-5.0); Alkaline Phosphatase 112 U/L (38-126); Amylase 45 U/L (30-110); Anion Gap 13 mmol/L; Blood Urea Nitrogen 21 mg/dL (7-17); Calcium 9.1 mg/dL (8.4-10.2); Carbon Dioxide 20 mmol/L (22-30); Chloride 101 mmol/L (98-107); Glucose 373 mg/dL (74-99); Lipase 96 U/L (23-300); Magnesium 1.7 mg/dL (1.6-2.3); Non-African American GFR(CKD) >90 (>60 ml/min/1.73 sqM); Potassium 4.7 mmol/L (3.5-5.1); Sodium 134 mmol/L (137-145); Total Bilirubin 0.2 mg/dL (0.2-1.3); Total Protein 7.5 g/dL (6.3-8.2)
[2024-07-01 10:47] LABS: ALT 64 U/L (4-34)
[2024-07-01] MEDS ORDERED: SODIUM CHLORIDE 0.9% 1,000 ML IV STA (11:01)
--- NOTE | 2024-07-01 12:10 | CT ---
EXAMINATION TYPE: CT abdomen pelvis wo con DATE OF EXAM: 07/01/2024 11:23 AM COMPARISON: CT abdomen pelvis most recent from CLINICAL INDICATION: Female, 44 years old with history of LLQ abdominal pain; LLQ abdominal pain AMD ELEVATED SUGAR TECHNIQUE: Axial CT abdomen pelvis wo con;Sagittal and coronal reformats were created on a separate workstation. Contrast used: mL of , (none if empty) Oral contrast used: without Oral Contrast (none if empty) CT DLP: 1986.4 mGycm, Automated exposure control for dose reduction was used. FINDINGS: LOWER CHEST: Unremarkable ABDOMEN LIVER: Diffusely hypoattenuating parenchyma. GALLBLADDER AND BILE DUCTS: The gallbladder is surgically absent. PANCREAS: Unremarkable. SPLEEN: Unremarkable. ADRENAL GLANDS: Unremarkable. KIDNEYS AND URETERS: No evidence of hydronephrosis or renal calculus. The ureters are unremarkable. PELVIS BLADDER: No evidence for wall thickening or mass given limitations of exam. REPRODUCTIVE: Bilateral tubal ligation clips. ABDOMEN & PELVIS STOMACH AND BOWEL: No evidence of bowel obstruction. The appendix is normal. PERITONEUM/RETROPERITONEUM: No evidence of pneumoperitoneum or free fluid. VASCULATURE: No evidence of aortic aneurysm. MUSCULOSKELETAL: No acute osseous abnormalities LYMPH NODES: No gross evidence for lymphadenopathy. SOFT TISSUE/ABDOMINAL WALL: Unremarkable IMPRESSION: 1. No acute process to explain the patient's pain. No evidence for obstructive uropathy or renal louis culus. No diverticulitis. 2. Hepatic steatosis. [facility], , 07/01/2024 12:08 PM
[2024-07-01 13:53] LABS: Glucose,Whole Blood 216 mg/dL (70-110)
[2024-07-01] MEDS: INSULIN REGULAR 100 UNIT/ML VIAL (IV) IV ONE (14:34)
[2024-07-01] MEDS: ONDANSETRON 4 MG/2 ML VIAL IVP STA (14:35)
[2024-07-01] MEDS: KETOROLAC 15 MG/ML 1 ML VIAL IVP STA (14:37)
[2024-07-01] MEDS: ONDANSETRON 4 MG ODT STARTER PACK 2 TAB BTL PO STA (14:38)
[2024-07-01 14:45] VITALS: BP 174/93; PULSE 74; RESP 18; TEMP 98.7
== END 2024-07-01 14:48 | disposition home or self-care (01) ==
LOC: EC 09:39
DX: E11.65 Type 2 diabetes mellitus with hyperglycemia (principal); R10.9 Unspecified abdominal pain; D72.829 Elevated white blood cell count, unspecified; Z88.0 Allergy status to penicillin; Z88.1 Allergy status to other antibiotic agents; Z91.041 Radiographic dye allergy status; Z91.010 Allergy to peanuts; Z91.013 Allergy to seafood; Z88.8 Allergy status to other drugs, medicaments and biological substances; Z87.891 Personal history of nicotine dependence
CPT/HCPCS: 36415; 93005; 80053; 82150; 82009; 83690; 83735; 85025; 81003; 74176; 99285; 96374; 96375; J2405; J1885; S0119

== ENCOUNTER 2024-07-08 19:41 | Emergency (ER) | payer OTHER ==
[2024-07-08 19:45] VITALS: RESP 18
--- NOTE | 2024-07-08 20:14 | ED ---
General Adult HPI - General Chief complaint: Skin/Abscess/Foreign Body Stated complaint: rash Time Seen by Provider: 07/08/24 19:46 Source: patient Mode of arrival: ambulatory - History of Present Illness Initial comments: 44-year-old female presenting with chief complaint of rash. States that the rash started earlier today. She notes it on her lower back and in the gluteal cleft. States she is having some pain and some itching. No discharge or bleeding. She is worried that it may be from the bathtub at her current residence as she states that they do not wash it frequently. No difficulty breathing or swallowing. No chest pain, swelling of the lips or face, nausea, vomiting, abdominal pain. No fevers or chills. - Related Data Previous Rx's Medication Instructions Recorded Naltrexone HCl [Revia] 50 mg PO DAILY 30 Days #30 tab 04/25/24 Alcohol Antiseptic Pads [Alcohol 1 pad TOPICAL QID #120 pad 06/20/24 Swabs] Blood Sugar Diagnostic [Test 1 strip MISCELLANE QID #120 strip 06/20/24 Strips] Haloperidol Decanoate [Haldol D] 50 mg IM Q21D #1 each 06/20/24 Haloperidol Decanoate [Haldol D] 50 mg IM Q21D #1 each 06/20/24 Insulin Aspart [NovoLOG Flexpen] 3 units SQ AC-TID #5 each 06/20/24 Insulin Detemir (Levemir) [Levemir] 20 unit SQ DAILY@0700 #10 ml 06/20/24 Lancets 1 each MISCELLANE QID #120 each 06/20/24 Nystatin 100,000Unit/gm Cream 1 applic TOPICAL BID 30 Days #1 06/20/24 [Mycostatin Cream] each Syringe and Needle,Insulin,1Ml 1 syr SQ DIRECTED #120 each 06/20/24 [Insulin Syringe 28G 1/2" 1ML] fluvoxaMINE [Luvox] 200 mg PO HS 30 Days #120 tab 06/20/24 metFORMIN HCL [Glucophage] 1,000 mg PO BID-W/MEALS #120 tab 06/20/24 Pen Needle, Diabetic [Pen (Sandra) 1 needle SQ QID #120 each 06/22/24 Needle 4mm 32G (BD)] Omeprazole 20 mg PO DAILY #30 tab 06/23/24 Azithromycin [Zithromax Z Pack] 250 tab PO DIRECTED #4 tab 06/25/24 Guaifenesin/Dextromethorphan 1 each PO DIRECTED #20 capsule 06/25/24 [Robitussin Ccucp-Iepiw-Gjps Dm] Azithromycin [Zithromax] 250 mg PO DIRECTED 5 Days #6 tab 06/26/24 lidocaine HCL [Lidocaine HCl 10 ml MM Q4-6H PRN #100 ml 06/26/24 Viscous] Albuterol Sulfate [Ventolin HFA] 1 puff INHALATION Q6H PRN #1 each 06/30/24 Azithromycin [Zithromax] 250 mg PO DAILY 4 Days #4 tab 06/30/24 predniSONE [Deltasone] 40 mg PO BID 5 Days #10 tab 06/30/24 Sulfamethox-Tmp 800-160Mg [Bactrim 1 tab PO Q12HR 7 Days #14 tab 07/08/24 DS 800-160 mg] Allergies Allergy/AdvReac Type Severity Reaction Status Date / Time Iodinated Contrast Media Allergy Anaphylaxis Verified 07/08/24 19:45 [Iodinated Contrast Media - IV Dye] lacosamide [From Vimpat] Allergy Anaphylaxis Verified 07/08/24 19:45 peanut Allergy Anaphylaxis Verified 07/08/24 19:45 Penicillins Allergy Anaphylaxis Verified 07/08/24 19:45 shellfish derived Allergy swelling Verified 07/08/24 19:45 all over body cephalexin monohydrate AdvReac Rash, Verified 07/08/24 19:45 [From Keflex] Nausea, Vomiting & Diarrhea trazodone AdvReac bp Verified 07/08/24 19:45 issues/dizziness Review of Systems ROS Statement: Those systems with pertinent positive or pertinent negative responses have been documented in the HPI. ROS Other: All systems not noted in ROS Statement are negative. Past Medical History Past Medical History: Asthma, Heart Failure, COPD, Diabetes Mellitus, Fibromyalgia, GERD/Reflux, GI Bleed, Hypertension, Liver Disease, Osteoarthritis (OA), Pneumonia, Seizure Disorder, Skin Disorder Additional Past Medical History / Comment(s): Bronchitis, gestational diabetes, seizures with last one 01/2024, sickle cell trait, liver cirrhosis, anemia, chrons, IBS, ulcerative colitis, lowr GI bleed, hemorrhoids, constipation, psoriasis, migraines, chronic low back and cervical pain, scoliosis, arhtritis in multiple joints, gout bilateral feet, History of Any Multi-Drug Resistant Organisms: None Reported Past Surgical History: Cholecystectomy, Orthopedic Surgery Additional Past Surgical History / Comment(s): L oophorectomy d/t cyst, D&C, colonoscopy, L carpal tunnel release, Past Anesthesia/Blood Transfusion Reactions: Motion Sickness, Postoperative Nausea & Vomiting (PONV) Past Psychological History: Anxiety, Bipolar, Depression, Schizophrenia Smoking Status: Former smoker Past Alcohol Use History: None Reported Past Drug Use History: Cocaine - Past Family History Mother History Unknown: Yes Family Medical History: Cancer Additional Family Medical History / Comment(s): Mother had breast cancer and metnal illness She is living. Father Family Medical History: Cancer Additional Family Medical History / Comment(s): Father is . He had agent orange exposure. He had liver cancer, bowel to brain cancer. General Exam General appearance: alert, in no apparent distress Head exam: Present: atraumatic, normocephalic, normal inspection Eye exam: Present: normal appearance, EOMI Neck exam: Present: normal inspection. Absent: meningismus Respiratory exam: Present: normal lung sounds bilaterally. Absent: respiratory distress, wheezes, rales, rhonchi, stridor Cardiovascular Exam: Present: regular rate, normal rhythm, normal heart sounds. Absent: systolic murmur, diastolic murmur, rubs, gallop, clicks Neurological exam: Present: alert, oriented X3 Psychiatric exam: Present: normal affect, normal mood Skin exam: Present: warm, dry, other (Patient has 3 large pustules, 1 on her back and 2 in the gluteal cleft.) Course Vital Signs 07/08/24 07/08/24 19:42 20:41 Temperature 99.5 F 97.8 F Pulse Rate 74 72 Respiratory 18 18 Rate Blood Pressure 140/85 O2 Sat by Pulse 99 98 Oximetry Medical Decision Making - Medical Decision Making Was pt. sent in by a medical professional or institution (, PA, ELECTRIC SCOOP OPERATOR, urgent care, hospital, or retirement...) When possible be specific @ -No Did you speak to anyone other than the patient for history (EMS, parent, family, police, friend...)? What history was obtained from this source @ -No Did you review nursing and triage notes (agree or disagree)? Why? @ -I reviewed and agree with nursing and triage notes Were old charts reviewed (outside hosp., previous admission, EMS record, old EKG, old radiological studies, urgent care reports/EKG's, retirement records)? Report findings @ -No old charts were reviewed Differential Diagnosis (chest pain, altered mental status, abdominal pain women, abdominal pain men, vaginal bleeding, weakness, fever, dyspnea, syncope, headache, dizziness, GI bleed, back pain, seizure, CVA, palpatations, mental health, musculoskeletal)? @ -Differential includes allergic reaction, cellulitis, abscess, shingles, this is not an all-inclusive list EKG interpreted by me (3pts min.). @ -As above X-rays interpreted by me (1pt min.). @ -None done CT interpreted by me (1pt min.). @ -None done U/S interpreted by me (1pt. min.). @ -None done What testing was considered but not performed or refused? (CT, X-rays, U/S, labs)? Why? @ -None What meds were considered but not given or refused? Why? @ -None Did you discuss the management of the patient with other professionals (professionals i.e. , PA, ELECTRIC SCOOP OPERATOR, lab, RT, psych nurse, social security specialist, window shade cutter and mounter, teacher, us customs and border officer, family independence case manager)? Give summary @ -No Was smoking cessation discussed for >3mins.? @ -No Was critical care preformed (if so, how long)? @ -No Were there social determinants of health that impacted care today? How? (Ho melessness, low income, unemployed, alcoholism, drug addiction, transportation, low edu. Level, literacy, decrease access to med. care, residential, rehab)? @ -No Was there de-escalation of care discussed even if they declined (Discuss DNR or withdrawal of care, Hospice)? DNR status @ -No What co-morbidities impacted this encounter? (DM, HTN, Smoking, COPD, CAD, Cancer, CVA, ARF, Chemo, Hep., AIDS, mental health diagnosis, sleep apnea, morbid obesity)? @ -None Was patient admitted / discharged? Hospital course, mention meds given and route, prescriptions, significant lab abnormalities, going to OR and other pertinent info. @ -44-year-old female presenting with chief complaint of rash. On examination there are 3 dime sized pustules 1 on her lower back and 2 in the gluteal cleft. There is no erythema or induration and patient is nontoxic appearing. No difficulty breathing or swallowing and no signs of angioedema. Patient will be treated with Bactrim. She is educated on today's findings and treatment plan. Discharged. Follow-up with PCP. Report back to ER with any new or worsening symptoms. Discussed return parameters and answered all questions. Patient conveyed verbal understanding and agreed to the plan. I discussed this case in detail with my attending Dr. Mirza Undiagnosed new problem with uncertain prognosis? @ -No Drug Therapy requiring intensive monitoring for toxicity (Heparin, Nitro, Insulin, Cardizem)? @ -No Were any procedures done? @ -No Diagnosis/symptom? @ -Abscess Acute, or Chronic, or Acute on Chronic? @ -Acute Uncomplicated (without systemic symptoms) or Complicated (systemic symptoms)? @ -Uncomplicated Side effects of treatment? @ -No Exacerbation, Progression, or Severe Exacerbation? @ -No Poses a threat to life or bodily function? How? (Chest pain, [place], [place], pneumonia, PE, COPD, DKA, ARF, appy, cholecystitis, CVA, Diverticulitis, Homicidal, Suicidal, threat to staff... and all critical care pts) @ -Unlikely Disposition Clinical Impression: Abscess Disposition: HOME SELF-CARE Condition: Good Instructions (If sedation given, give patient instructions): Abscess (ED) Additional Instructions: Follow-up with PCP. Report back to ER with any new or worsening symptoms. Prescriptions: Sulfamethox-Tmp 800-160Mg [Bactrim DS 800-160 mg] 1 tab PO Q12HR 7 Days #14 tab Is patient prescribed a controlled substance at d/c from ED?: No Referrals: Evelyn Blas MD [Primary Care Provider] - 1-2 days Time of Disposition: 20:14
[2024-07-08] MEDS: IBUPROFEN 600 MG TAB PO STA (20:29)
[2024-07-08] MEDS: IBUPROFEN 600 MG STARTER PACK 4 TAB BTL PO STA (20:39)
[2024-07-08] MEDS: SULFAMETH-TMP DS STARTER PACK 2 TAB BTL PO STA (20:39)
[2024-07-08 20:42] VITALS: BP 140/85; PULSE 72; TEMP 97.8
== END 2024-07-08 20:44 | disposition home or self-care (01) ==
LOC: EC 19:41
DX: L02.212 Cutaneous abscess of back [any part, except buttock and flank] (principal); Z87.891 Personal history of nicotine dependence; Z91.041 Radiographic dye allergy status; Z88.0 Allergy status to penicillin; Z88.1 Allergy status to other antibiotic agents; Z88.8 Allergy status to other drugs, medicaments and biological substances; Z91.013 Allergy to seafood
CPT/HCPCS: 99282

== ENCOUNTER 2024-07-13 16:53 | Emergency (ER) | payer OTHER ==
[2024-07-13 17:17] VITALS: RESP 18
[2024-07-13 17:18] LABS: Glucose,Whole Blood 392 mg/dL (70-110)
[2024-07-13] MEDS: SODIUM CHLORIDE 0.9% 1,000 ML IV STA ×2 (18:34→18:44)
[2024-07-13] MEDS: ONDANSETRON 4 MG/2 ML VIAL IVP STA (18:37)
[2024-07-13] MEDS: PANTOPRAZOLE 40 MG/10 ML VIAL IVP STA (18:37)
[2024-07-13 19:14] LABS: Anisocytosis Slight; Basophils # (A) 0.1 k/uL (0-0.2); Basophils % (A) 1 %; Eosinophils # (A) 0.5 k/uL (0-0.7); Eosinophils % (A) 4 %; HCT 39.8 % (34.0-46.0); HGB 12.7 gm/dL (11.4-16.0); Lymphocytes # (A) 2.3 k/uL (1.0-4.8); Lymphocytes % (A) 17 %; MCV 87.7 fL (80.0-100.0); Monocytes # (A) 0.7 k/uL (0-1.0); Monocytes % (A) 5 %; Neutrophils # (A) 9.8 k/uL (1.3-7.7); Neutrophils % (A) 72 %; Platelet Count 198 k/uL (150-450); RBC 4.54 m/uL (3.80-5.40); RDW 16.2 % (11.5-15.5); WBC 13.6 k/uL (3.8-10.6)
--- NOTE | 2024-07-13 19:14 | XR ---
EXAMINATION TYPE: XR chest 1V portable DATE OF EXAM: 07/13/2024 7:07 PM CLINICAL INDICATION:Female, 44 years old with history of abdominal pain; [facility] COMPARISON: Chest radiograph 06/30/2024 TECHNIQUE: XR chest 1V portable Frontal view of the chest. FINDINGS: Lungs/Pleura: There is no evidence of pleural effusion, focal consolidation, or pneumothorax. Pulmonary vascularity: Unremarkable. Heart/mediastinum: Cardiomediastinal silhouette is unremarkable. Musculoskeletal: No acute osseous pathology. IMPRESSION: No acute cardiopulmonary disease/process. [facility] Sola Christine, , 07/13/2024 7:11 PM
[2024-07-13 19:16] LABS: Appearance,Urine Clear (Clear); Bacteria,Urine Rare /hpf; Bilirubin,Urine Negative (Negative); Blood,Urine Negative (Negative); Color,Urine Colorless; Glucose,Urine (UA) 4+ (Negative); Ketones,Urine Negative (Negative); Leukocyte Esterase,Urine Moderate (Negative); Mucus,Urine Rare /hpf; Nitrite,Urine Negative (Negative); PH, Urine 5.5 (5.0-8.0); Protein,Urine Negative (Negative); RBC,Urine 2 /hpf (0-5); Specific Gravity,Urine 1.023 (1.001-1.035); Squamous Epithelial Cell,Urine 2 /hpf (0-4); Urobilinogen,Urine <2.0 mg/dL (<2.0); WBC,Urine 3 /hpf (0-5)
[2024-07-13 19:17] LABS: VBG PH 7.4 (7.31-7.41)
[2024-07-13 19:22] LABS: INR 0.8 (<1.2); Partial Thromboplastin Time 22.2 sec (22.0-30.0); Prothrombin Time 9.4 sec (10.0-12.5)
[2024-07-13 19:32] LABS: ALT 45 U/L (4-34); AST 37 U/L (14-36); African American GFR (CKD) >90 (>60 ml/min/1.73 sqM); Alkaline Phosphatase 105 U/L (38-126); Amylase 50 U/L (30-110); Anion Gap 6 mmol/L; Blood Urea Nitrogen 15 mg/dL (7-17); Calcium 9.2 mg/dL (8.4-10.2); Carbon Dioxide 23 mmol/L (22-30); Chloride 106 mmol/L (98-107); Glucose 299 mg/dL (74-99); Lipase 137 U/L (23-300); Non-African American GFR(CKD) >90 (>60 ml/min/1.73 sqM); Potassium 4.2 mmol/L (3.5-5.1); Sodium 135 mmol/L (137-145); Total Bilirubin 0.3 mg/dL (0.2-1.3); Total Protein 6.9 g/dL (6.3-8.2)
[2024-07-13 20:17] LABS: Glucose,Whole Blood 203 mg/dL (70-110)
[2024-07-13] MEDS: INSULIN ASPART (NovoLOG) 100 UNIT/ML VIAL SQ STA (20:20)
--- NOTE | 2024-07-13 21:07 | ED ---
General Adult HPI - General Chief complaint: Dizziness Stated complaint: abn labs Time Seen by Provider: 07/13/24 18:21 Source: patient, RN notes reviewed, old records reviewed Mode of arrival: ambulatory Limitations: no limitations - History of Present Illness Initial comments: Is a 44-year-old female well-known to our emergency department complaining of elevated blood sugar. Has a history of asthma, COPD, diabetes, hypertension. Is on insulin. States she has been compliant with her medications. Is asking to go on an injectable diabetic medication such as Mounjaro. Denies any chest pain, shortness of breath, abdominal pain. Does endorse intermittent nausea and vomiting. However she is currently asking for food. Denies any urinary complaints. Presents for further evaluation at this time. States her sugars have been over 300 for the last 2 days. This has occurred previously for her. - Related Data Previous Rx's Medication Instructions Recorded Naltrexone HCl [Revia] 50 mg PO DAILY 30 Days #30 tab 04/25/24 Alcohol Antiseptic Pads [Alcohol 1 pad TOPICAL QID #120 pad 06/20/24 Swabs] Blood Sugar Diagnostic [Test 1 strip MISCELLANE QID #120 strip 06/20/24 Strips] Haloperidol Decanoate [Haldol D] 50 mg IM Q21D #1 each 06/20/24 Haloperidol Decanoate [Haldol D] 50 mg IM Q21D #1 each 06/20/24 Insulin Aspart [NovoLOG Flexpen] 3 units SQ AC-TID #5 each 06/20/24 Insulin Detemir (Levemir) [Levemir] 20 unit SQ DAILY@0700 #10 ml 06/20/24 Lancets 1 each MISCELLANE QID #120 each 06/20/24 Nystatin 100,000Unit/gm Cream 1 applic TOPICAL BID 30 Days #1 06/20/24 [Mycostatin Cream] each Syringe and Needle,Insulin,1Ml 1 syr SQ DIRECTED #120 each 06/20/24 [Insulin Syringe 28G 1/2" 1ML] fluvoxaMINE [Luvox] 200 mg PO HS 30 Days #120 tab 06/20/24 metFORMIN HCL [Glucophage] 1,000 mg PO BID-W/MEALS #120 tab 06/20/24 Pen Needle, Diabetic [Pen (Sandra) 1 needle SQ QID #120 each 11/21/24 Needle 4mm 32G (BD)] Omeprazole 20 mg PO DAILY #30 tab 06/23/24 Azithromycin [Zithromax Z Pack] 250 tab PO DIRECTED #4 tab 06/25/24 Guaifenesin/Dextromethorphan 1 each PO DIRECTED #20 capsule 06/25/24 [Robitussin Tflwt-Sitvi-Pdna Dm] Azithromycin [Zithromax] 250 mg PO DIRECTED 5 Days #6 tab 06/26/24 lidocaine HCL [Lidocaine HCl 10 ml MM Q4-6H PRN #100 ml 06/26/24 Viscous] Albuterol Sulfate [Ventolin HFA] 1 puff INHALATION Q6H PRN #1 each 06/30/24 Azithromycin [Zithromax] 250 mg PO DAILY 4 Days #4 tab 06/30/24 predniSONE [Deltasone] 40 mg PO BID 5 Days #10 tab 06/30/24 Sulfamethox-Tmp 800-160Mg [Bactrim 1 tab PO Q12HR 7 Days #14 tab 07/08/24 DS 800-160 mg] Allergies Allergy/AdvReac Type Severity Reaction Status Date / Time Iodinated Contrast Media Allergy Anaphylaxis Verified 07/08/24 19:45 [Iodinated Contrast Media - IV Dye] lacosamide [From Vimpat] Allergy Anaphylaxis Verified 07/08/24 19:45 peanut Allergy Anaphylaxis Verified 07/08/24 19:45 Penicillins Allergy Anaphylaxis Verified 07/08/24 19:45 shellfish derived Allergy swelling Verified 07/08/24 19:45 all over body cephalexin monohydrate AdvReac Rash, Verified 07/08/24 19:45 [From Keflex] Nausea, Vomiting & Diarrhea trazodone AdvReac bp Verified 07/08/24 19:45 issues/dizziness Review of Systems ROS Statement: Those systems with pertinent positive or pertinent negative responses have been documented in the HPI. Review of Systems: CONST: Denies fever EYES: Denies blurry vision ENT: Denies nasal congestion C/V: Denies Chest pain RESP: Denies shortness of breath GI: Denies abdominal pain : Denies dysuria SKIN: Denies rash. MSK: Denies joint pain. NEURO: Denies headache ROS Other: All systems not noted in ROS Statement are negative. Past Medical History Past Medical History: Asthma, Heart Failure, COPD, Diabetes Mellitus, Fibromyalgia, GERD/Reflux, GI Bleed, Hypertension, Liver Disease, Osteoarthritis (OA), Pneumonia, Seizure Disorder, Skin Disorder Additional Past Medical History / Comment(s): Bronchitis, gestational diabetes, seizures with last one 01/2024, sickle cell trait, liver cirrhosis, anemia, chrons, IBS, ulcerative colitis, lowr GI bleed, hemorrhoids, constipation, psoriasis, migraines, chronic low back and cervical pain, scoliosis, arhtritis in multiple joints, gout bilateral feet, History of Any Multi-Drug Resistant Organisms: None Reported Past Surgical History: Cholecystectomy, Orthopedic Surgery Additional Past Surgical History / Comment(s): L oophorectomy d/t cyst, D&C, colonoscopy, L carpal tunnel release, Past Anesthesia/Blood Transfusion Reactions: Motion Sickness, Postoperative Nausea & Vomiting (PONV) Past Psychological History: Anxiety, Bipolar, Depression, Schizophrenia Smoking Status: Former smoker Past Alcohol Use History: None Reported Past Drug Use History: Cocaine - Past Family History Mother History Unknown: Yes Family Medical History: Cancer Additional Family Medical History / Comment(s): Mother had breast cancer and metnal illness She is living. Father Family Medical History: Cancer Additional Family Medical History / Comment(s): Father is . He had agent orange exposure. He had liver cancer, bowel to brain cancer. General Exam - General Exam Comments Initial Comments: General: Appears in no acute distress. HEAD: Normal with no signs of head trauma. EYES: EOMI ENT: Hearing grossly intact, normal oropharynx. RESPIRATORY: Clear breath sounds bilaterally. No wheezes, rales, or rhonchi. C/V: Regular rate and rhythm. S1 and S2 auscultated, no edema, peripheral pulses 2+ and intact throughout ABD: Abd is soft, nontender, nondistended EXT: Normal range of motion, no obvious deformity SKIN: No rashes or lesions observed on exposed skin. NEURO: Alert and oriented x 4. Limitations: no limitations Course Vital Signs 07/13/24 07/13/24 17:13 21:27 Temperature 98.2 F 98.3 F Pulse Rate 77 74 Respiratory 18 18 Rate Blood Pressure 128/82 149/78 O2 Sat by Pulse 97 97 Oximetry Medical Decision Making - Medical Decision Making Was pt. sent in by a medical professional or institution (, PA, DIAL EQUIPMENT ENGINEER, urgent care, hospital, or [place] [facility] facility...) When possible be specific @ -No Did you speak to anyone other than the patient for history (EMS, parent, family, police, friend...)? What history was obtained from this source @ -No Did you review nursing and triage notes (agree or disagree)? Why? @ -I reviewed and agree with nursing and triage notes Were old charts reviewed (outside hosp., previous admission, EMS record, old EKG, old radiological studies, urgent care reports/EKG's, [place] [facility] facility records)? Report findings @ -Charts reviewed which shows patient presents for similar complaints in the past. Differential Diagnosis (chest pain, altered mental status, abdominal pain women, abdominal pain men, vaginal bleeding, weakness, fever, dyspnea, syncope, headache, dizziness, GI bleed, back pain, seizure, CVA, palpatations, mental health, musculoskeletal)? @ -Hyperglycemia, poorly controlled diabetes, DKA. This list is not all inclusive. EKG interpreted by me (3pts min.). @ -As above X-rays interpreted by me (1pt min.). @ -Chest X-ray reveals no obvious acute cardiopulmonary process CT interpreted by me (1pt min.). @ -None done U/S interpreted by me (1pt. min.). @ -None done What testing was considered but not performed or refused? (CT, X-rays, U/S, labs)? Why? @ -None What meds were considered but not given or refused? Why? @ -None Did you discuss the management of the patient with other professionals (professionals i.e. , PA, DIAL EQUIPMENT ENGINEER, lab, RT, psych nurse, director social service, utilization reviewer, teacher, disciplinary hearing officer, case checker)? Give summary @ -No Was smoking cessation discussed for >3mins.? @ -No Was critical care preformed (if so, how long)? @ -No Were there social determinants of health that impacted care today? How? (Homelessness, low income, unemployed, alcoholism, drug addiction, transportation, low edu. Level, literacy, decrease access to med. care, intermediate, rehab)? @ -No Was there de-escalation of care discussed even if they declined (Discuss DNR or withdrawal of care, Hospice)? DNR status @ -No What co-morbidities impacted this encounter? (DM, HTN, Smoking, COPD, CAD, Cancer, CVA, ARF, Chemo, Hep., AIDS, mental health diagnosis, sleep apnea, morbid obesity)? @ -Poorly controlled insulin-dependent diabetes Was patient admitted / discharged? Hospital course, mention meds given and route, prescriptions, significant lab abnormalities, going to OR and other pertinent info. @ -Patient's presentation and physical exam, presents with hyperglycemia. We will obtain generalized workup. She has a history of poorly controlled diabetes. Vitals are within acceptable limits. She will be administered multiple IV fluid bolus. She was already asking for food. She states she was nauseous but currently is not. EKG shows no signs of acute ischemia. Chest x-ray unremarkable. Laboratory studies are within acceptable limits except for likely reactive leukocytosis of 13.6. Lactic acid did return elevated at 3.0 however patient received multiple fluid boluses and she would like to go home at this time. I believe this is reasonable. Ketones are negative in the urine. No evidence of DKA at this time. Discussed results with the patient. She was given a dose of IV insulin as she is actively eating food. Recommended follow-up with her PCP for further workup regarding her symptoms poorly controlled blood sugars. She was in agreement this plan. No concern for infectious etiology at this time. I instructed the patient to follow up with their PCP in the next 1-3 days. I explained that the patient should return to the emergency department if they experience any worsening symptoms. Strict return precautions were discussed with the patient. The patient expressed understanding of these instructions. I answered all questions that the patient had. The patient was discharged home in good condition with their prescriptions and follow up information. Undiagnosed new problem with uncertain prognosis? @ -No Drug Therapy requiring intensive monitoring for toxicity (Heparin, Nitro, Insulin, Cardizem)? @ -No Were any procedures done? @ -No Diagnosis/symptom? @ -Hyperglycemia in the setting of insulin-dependent diabetes Acute, or Chronic, or Acute on Chronic? @ -Acute on chronic Uncomplicated (without systemic symptoms) or Complicated (systemic symptoms)? @ -Uncomplicated Side effects of treatment? @ -No Exacerbation, Progression, or Severe Exacerbation? @ -No Poses a threat to life or bodily function? How? (Chest pain, [place], [place], pneumonia, PE, COPD, DKA, ARF, appy, cholecystitis, CVA, Diverticulitis, Homicidal, Suicidal, threat to staff... and all critical care pts) @ -Unlikely at this time - Lab Data Result diagrams: 07/13/24 18:50 07/13/24 18:50 Lab Results 07/13/24 07/13/24 07/13/24 Range/Units 17:17 18:50 18:50 WBC 13.6 H (3.8-10.6) k/uL RBC 4.54 (3.80-5.40) m/uL Hgb 12.7 (11.4-16.0) gm/dL Hct 39.8 (34.0-46.0) % MCV 87.7 (80.0-100.0) fL MCH 28.0 (25.0-35.0) pg MCHC 32.0 (31.0-37.0) g/dL RDW 16.2 H (11.5-15.5) % Plt Count 198 (150-450) k/uL MPV 8.0 Neutrophils % 72 % Lymphocytes % 17 % Monocytes % 5 % Eosinophils % 4 % Basophils % 1 % Neutrophils # 9.8 H (1.3-7.7) k/uL Lymphocytes # 2.3 (1.0-4.8) k/uL Monocytes # 0.7 (0-1.0) k/uL Eosinophils # 0.5 (0-0.7) k/uL Basophils # 0.1 (0-0.2) k/uL Anisocytosis Slight PT 9.4 L (10.0-12.5) sec INR 0.8 (<1.2) APTT 22.2 (22.0-30.0) sec VBG pH (7.31-7.41) VBG pCO2 (37-51) mmHg VBG HCO3 (24-28) mmol/L Sodium (137-145) mmol/L Potassium (3.5-5.1) mmol/L Chloride (98-107) mmol/L Carbon Dioxide (22-30) mmol/L Anion Gap mmol/L BUN (7-17) mg/dL Creatinine (0.52-1.04) mg/dL Est GFR (CKD-EPI)AfAm (>60 ml/min/1.73 sqM) Est GFR (CKD-EPI)NonAf (>60 ml/min/1.73 sqM) Glucose (74-99) mg/dL POC Glucose (mg/dL) 392 H (70-110) mg/dL POC Glu Arabic Teacher ID Jonnathan Dubon Lactic Ac Sepsis Rflx Plasma Lactic Acid Keon (0.7-2.0) mmol/L Calcium (8.4-10.2) mg/dL Total Bilirubin (0.2-1.3) mg/dL AST (14-36) U/L ALT (4-34) U/L Alkaline Phosphatase (38-126) U/L Total Protein (6.3-8.2) g/dL Albumin (3.5-5.0) g/dL Amylase (30-110) U/L Lipase (23-300) U/L Urine Color Urine Appearance (Clear) Urine pH (5.0-8.0) Ur Specific [place] (1.001-1.035) Urine Protein (Negative) Urine Glucose (UA) (Negative) Urine Ketones (Negative) Urine Blood (Negative) Urine Nitrite (Negative) Urine Bilirubin (Negative) Urine Urobilinogen (<2.0) mg/dL Ur Leukocyte Esterase (Negative) Urine RBC (0-5) /hpf Urine WBC (0-5) /hpf Ur Squamous Epith Cells (0-4) /hpf Urine Bacteria (None) /hpf Urine Mucus (None) /hpf Acetone, Qual (Negative) Influenza Type A (PCR) (Not Detectd) Influenza Type B (PCR) (Not Detectd) RSV (PCR) (Not Detectd) SARS-CoV-2 (PCR) (Not Detectd) 07/13/24 07/13/24 07/13/24 Range/Units 18:50 18:50 18:58 WBC (3.8-10.6) k/uL RBC (3.80-5.40) m/uL Hgb (11.4-16.0) gm/dL Hct (34.0-46.0) % MCV (80.0-100.0) fL MCH (25.0-35.0) pg MCHC (31.0-37.0) g/dL RDW (11.5-15.5) % Plt Count (150-450) k/uL MPV Neutrophils % % Lymphocytes % % Monocytes % % Eosinophils % % Basophils % % Neutrophils # (1.3-7.7) k/uL Lymphocytes # (1.0-4.8) k/uL Monocytes # (0-1.0) k/uL Eosinophils # (0-0.7) k/uL Basophils # (0-0.2) k/uL Anisocytosis PT (10.0-12.5) sec INR (<1.2) APTT (22.0-30.0) sec VBG pH (7.31-7.41) VBG pCO2 (37-51) mmHg VBG HCO3 (24-28) mmol/L Sodium 135 L (137-145) mmol/L Potassium 4.2 (3.5-5.1) mmol/L Chloride 106 (98-107) mmol/L Carbon Dioxide 23 (22-30) mmol/L Anion Gap 6 mmol/L BUN 15 (7-17) mg/dL Creatinine 0.70 (0.52-1.04) mg/dL Est GFR (CKD-EPI)AfAm >90 (>60 ml/min/1.73 sqM) Est GFR (CKD-EPI)NonAf >90 (>60 ml/min/1.73 sqM) Glucose 299 H (74-99) mg/dL POC Glucose (mg/dL) (70-110) mg/dL POC Glu Arabic Teacher ID Lactic Ac Sepsis Rflx Plasma Lactic Acid Keon 3.0 H* (0.7-2.0) mmol/L Calcium 9.2 (8.4-10.2) mg/dL Total Bilirubin 0.3 (0.2-1.3) mg/dL AST 37 H (14-36) U/L ALT 45 H (4-34) U/L Alkaline Phosphatase 105 (38-126) U/L Total Protein 6.9 (6.3-8.2) g/dL Albumin 4.0 (3.5-5.0) g/dL Amylase 50 (30-110) U/L Lipase 137 (23-300) U/L Urine Color Colorless Urine Appearance Clear (Clear) Urine pH 5.5 (5.0-8.0) Ur Specific [place] 1.023 (1.001-1.035) Urine Protein Negative (Negative) Urine Glucose (UA) 4+ H (Negative) Urine Ketones Negative (Negative) Urine Blood Negative (Negative) Urine Nitrite Negative (Negative) Urine Bilirubin Negative (Negative) Urine Urobilinogen <2.0 (<2.0) mg/dL Ur Leukocyte Esterase Moderate H (Negative) Urine RBC 2 (0-5) /hpf Urine WBC 3 (0-5) /hpf Ur Squamous Epith Cells 2 (0-4) /hpf Urine Bacteria Rare H (None) /hpf Urine Mucus Rare H (None) /hpf Acetone, Qual Negative (Negative) Influenza Type A (PCR) (Not Detectd) Influenza Type B (PCR) (Not Detectd) RSV (PCR) (Not Detectd) SARS-CoV-2 (PCR) (Not Detectd) 07/13/24 07/13/24 07/13/24 Range/Units 18:58 18:58 20:16 WBC (3.8-10.6) k/uL RBC (3.80-5.40) m/uL Hgb (11.4-16.0) gm/dL Hct (34.0-46.0) % MCV (80.0-100.0) fL MCH (25.0-35.0) pg MCHC (31.0-37.0) g/dL RDW (11.5-15.5) % Plt Count (150-450) k/uL MPV Neutrophils % % Lymphocytes % % Monocytes % % Eosinophils % % Basophils % % Neutrophils # (1.3-7.7) k/uL Lymphocytes # (1.0-4.8) k/uL Monocytes # (0-1.0) k/uL Eosinophils # (0-0.7) k/uL Basophils # (0-0.2) k/uL Anisocytosis PT (10.0-12.5) sec INR (<1.2) APTT (22.0-30.0) sec VBG pH 7.40 (7.31-7.41) VBG pCO2 40 (37-51) mmHg VBG HCO3 25 (24-28) mmol/L Sodium (137-145) mmol/L Potassium (3.5-5.1) mmol/L Chloride (98-107) mmol/L Carbon Dioxide (22-30) mmol/L Anion Gap mmol/L BUN (7-17) mg/dL Creatinine (0.52-1.04) mg/dL Est GFR (CKD-EPI)AfAm (>60 ml/min/1.73 sqM) Est GFR (CKD-EPI)NonAf (>60 ml/min/1.73 sqM) Glucose (74-99) mg/dL POC Glucose (mg/dL) 203 H (70-110) mg/dL POC Glu Arabic Teacher ID Delma Cedeño Lactic Ac Sepsis Rflx Plasma Lactic Acid Keon (0.7-2.0) mmol/L Calcium (8.4-10.2) mg/dL Total Bilirubin (0.2-1.3) mg/dL AST (14-36) U/L ALT (4-34) U/L Alkaline Phosphatase (38-126) U/L Total Protein (6.3-8.2) g/dL Albumin (3.5-5.0) g/dL Amylase (30-110) U/L Lipase (23-300) U/L Urine Color Urine Appearance (Clear) Urine pH (5.0-8.0) Ur Specific [place] (1.001-1.035) Urine Protein (Negative) Urine Glucose (UA) (Negative) Urine Ketones (Negative) Urine Blood (Negative) Urine Nitrite (Negative) Urine Bilirubin (Negative) Urine Urobilinogen (<2.0) mg/dL Ur Leukocyte Esterase (Negative) Urine RBC (0-5) /hpf Urine WBC (0-5) /hpf Ur Squamous Epith Cells (0-4) /hpf Urine Bacteria (None) /hpf Urine Mucus (None) /hpf Acetone, Qual (Negative) Influenza Type A (PCR) Not Detected (Not Detectd) Influenza Type B (PCR) Not Detected (Not Detectd) RSV (PCR) Not Detected (Not Detectd) SARS-CoV-2 (PCR) Not Detected (Not Detectd) 07/13/24 Range/Units 20:20 WBC (3.8-10.6) k/uL RBC (3.80-5.40) m/uL Hgb (11.4-16.0) gm/dL Hct (34.0-46.0) % MCV (80.0-100.0) fL MCH (25.0-35.0) pg MCHC (31.0-37.0) g/dL RDW (11.5-15.5) % Plt Count (150-450) k/uL MPV Neutrophils % % Lymphocytes % % Monocytes % % Eosinophils % % Basophils % % Neutrophils # (1.3-7.7) k/uL Lymphocytes # (1.0-4.8) k/uL Monocytes # (0-1.0) k/uL Eosinophils # (0-0.7) k/uL Basophils # (0-0.2) k/uL Anisocytosis PT (10.0-12.5) sec INR (<1.2) APTT (22.0-30.0) sec VBG pH (7.31-7.41) VBG pCO2 (37-51) mmHg VBG HCO3 (24-28) mmol/L Sodium (137-145) mmol/L Potassium (3.5-5.1) mmol/L Chloride (98-107) mmol/L Carbon Dioxide (22-30) mmol/L Anion Gap mmol/L BUN (7-17) mg/dL Creatinine (0.52-1.04) mg/dL Est GFR (CKD-EPI)AfAm (>60 ml/min/1.73 sqM) Est GFR (CKD-EPI)NonAf (>60 ml/min/1.73 sqM) Glucose (74-99) mg/dL POC Glucose (mg/dL) (70-110) mg/dL POC Glu Arabic Teacher ID Lactic Ac Sepsis Rflx Y Plasma Lactic Acid Keon (0.7-2.0) mmol/L Calcium (8.4-10.2) mg/dL Total Bilirubin (0.2-1.3) mg/dL AST (14-36) U/L ALT (4-34) U/L Alkaline Phosphatase (38-126) U/L Total Protein (6.3-8.2) g/dL Albumin (3.5-5.0) g/dL Amylase (30-110) U/L Lipase (23-300) U/L Urine Color Urine Appearance (Clear) Urine pH (5.0-8.0) Ur Specific [place] (1.001-1.035) Urine Protein (Negative) Urine Glucose (UA) (Negative) Urine Ketones (Negative) Urine Blood (Negative) Urine Nitrite (Negative) Urine Bilirubin (Negative) Urine Urobilinogen (<2.0) mg/dL Ur Leukocyte Esterase (Negative) Urine RBC (0-5) /hpf Urine WBC (0-5) /hpf Ur Squamous Epith Cells (0-4) /hpf Urine Bacteria (None) /hpf Urine Mucus (None) /hpf Acetone, Qual (Negative) Influenza Type A (PCR) (Not Detectd) Influenza Type B (PCR) (Not Detectd) RSV (PCR) (Not Detectd) SARS-CoV-2 (PCR) (Not Detectd) - EKG Data -: EKG Interpreted by Me EKG Comments: 12-lead Electrocardiogram Interpretation Note EKG was reviewed and interpreted by myself. 12-lead ECG performed at 1938 is interpreted by me as revealing normal sinus rhythm at a rate of 65 beats per minute. Right bundle branch block morphology. AK interval is 166 ms, QRS duration is 173 ms, QTc is 459 ms.. There were no ST or T wave abnormalities to suggest myocardial ischemia or injury. R wave progression across the precordium was satisfactory. By my interpretation this EKG is non-diagnostic for acute ischemia. Compared with EKG from June 2024 with no obvious acute dynamic changes. Disposition Clinical Impression: Hyperglycemia Disposition: HOME SELF-CARE Condition: Good Instructions (If sedation given, give patient instructions): Diabetic Hyperglycemia (ED) Additional Instructions: Follow-up with your PCP next 1 to 3 days. You have hyperglycemia. Please follow a diabetic diet. Discussed with PCP changing medications as you desire. Return if worsening symptoms. Is patient prescribed a controlled substance at d/c from ED?: No Referrals: Evelyn Blas MD [Primary Care Provider] - 1-2 days Time of Disposition: 21:00
[2024-07-13 21:28] VITALS: BP 149/78; PULSE 74; TEMP 98.3
== END 2024-07-13 21:28 | disposition home or self-care (01) ==
LOC: EC 16:53
DX: E11.65 Type 2 diabetes mellitus with hyperglycemia (principal); Z79.4 Long term (current) use of insulin; J44.89 Other specified chronic obstructive pulmonary disease; J45.909 Unspecified asthma, uncomplicated; I10 Essential (primary) hypertension; Z87.891 Personal history of nicotine dependence; Z91.041 Radiographic dye allergy status; Z88.0 Allergy status to penicillin; Z91.010 Allergy to peanuts; Z91.013 Allergy to seafood; Z88.1 Allergy status to other antibiotic agents; Z88.8 Allergy status to other drugs, medicaments and biological substances
CPT/HCPCS: 36415; 93005; 80053; 82150; 82803; 82009; 83605; 83690; 85025; 85610; 85730; 81001; 87636; 71045; 99284; 96374; 96375; 96372; 96361; J2405; J2470

== ENCOUNTER 2024-08-04 14:46 | Emergency (ER) | payer OTHER ==
[2024-08-04 15:09] VITALS: BP 150/86; PULSE 87; RESP 18; TEMP 98.2
[2024-08-04 15:10] LABS: Glucose,Whole Blood 201 mg/dL (70-110)
--- NOTE | 2024-08-04 15:19 | ED ---
Recheck HPI - General Chief Complaint: Recheck/Abnormal Lab/Rx Stated Complaint: low sugar Time Seen by Provider: 08/04/24 15:19 Source: patient, RN notes reviewed Mode of arrival: ambulatory Limitations: no limitations - History of Present Illness Initial Comments: Quick [id number] female history of type 2 diabetes sent from [facility] for high blood sugar. States her blood glucose was 515 around noon today, she then took insulin and blood glucose decreased to 190. States she is asymptomatic however [facility] has sent her for evaluation. Denies chest pain, abdominal pain, vomiting. - Related Data Previous Rx's Medication Instructions Recorded Naltrexone HCl [Revia] 50 mg PO DAILY 30 Days #30 tab 04/25/24 Alcohol Antiseptic Pads [Alcohol 1 pad TOPICAL QID #120 pad 06/20/24 Swabs] Blood Sugar Diagnostic [Test 1 strip MISCELLANE QID #120 strip 06/20/24 Strips] Haloperidol Decanoate [Haldol D] 50 mg IM Q21D #1 each 06/20/24 Haloperidol Decanoate [Haldol D] 50 mg IM Q21D #1 each 06/20/24 Insulin Aspart [NovoLOG Flexpen] 3 units SQ AC-TID #5 each 06/20/24 Insulin Detemir (Levemir) [Levemir] 20 unit SQ DAILY@0700 #10 ml 06/20/24 Lancets 1 each MISCELLANE QID #120 each 06/20/24 Nystatin 100,000Unit/gm Cream 1 applic TOPICAL BID 30 Days #1 06/20/24 [Mycostatin Cream] each Syringe and Needle,Insulin,1Ml 1 syr SQ DIRECTED #120 each 06/20/24 [Insulin Syringe 28G 1/2" 1ML] fluvoxaMINE [Luvox] 200 mg PO HS 30 Days #120 tab 06/20/24 metFORMIN HCL [Glucophage] 1,000 mg PO BID-W/MEALS #120 tab 06/20/24 Pen Needle, Diabetic [Pen (Sandra) 1 needle SQ QID #120 each 06/22/24 Needle 4mm 32G (BD)] Omeprazole 20 mg PO DAILY #30 tab 06/23/24 Azithromycin [Zithromax Z Pack] 250 tab PO DIRECTED #4 tab 06/25/24 Guaifenesin/Dextromethorphan 1 each PO DIRECTED #20 capsule 06/25/24 [Robitussin Hrkbu-Ifugu-Mhzd Dm] Azithromycin [Zithromax] 250 mg PO DIRECTED 5 Days #6 tab 06/26/24 lidocaine HCL [Lidocaine HCl 10 ml MM Q4-6H PRN #100 ml 06/26/24 Viscous] Albuterol Sulfate [Ventolin HFA] 1 puff INHALATION Q6H PRN #1 each 06/30/24 Azithromycin [Zithromax] 250 mg PO DAILY 4 Days #4 tab 06/30/24 predniSONE [Deltasone] 40 mg PO BID 5 Days #10 tab 06/30/24 Sulfamethox-Tmp 800-160Mg [Bactrim 1 tab PO Q12HR 7 Days #14 tab 07/08/24 DS 800-160 mg] Allergies Allergy/AdvReac Type Severity Reaction Status Date / Time Iodinated Contrast Media Allergy Anaphylaxis Verified 08/04/24 15:04 [Iodinated Contrast Media - IV Dye] lacosamide [From Vimpat] Allergy Anaphylaxis Verified 08/04/24 15:04 peanut Allergy Anaphylaxis Verified 08/04/24 15:04 Penicillins Allergy Anaphylaxis Verified 08/04/24 15:04 shellfish derived Allergy swelling Verified 08/04/24 15:04 all over body cephalexin monohydrate AdvReac Rash, Verified 08/04/24 15:04 [From Keflex] Nausea, Vomiting & Diarrhea trazodone AdvReac bp Verified 08/04/24 15:04 issues/dizziness Review of Systems ROS Statement: Those systems with pertinent positive or pertinent negative responses have been documented in the HPI. ROS Other: All systems not noted in ROS Statement are negative. Past Medical History Past Medical History: Asthma, Heart Failure, COPD, Diabetes Mellitus, Fibromyalgia, GERD/Reflux, GI Bleed, Hypertension, Liver Disease, Osteoarthritis (OA), Pneumonia, Seizure Disorder, Skin Disorder Additional Past Medical History / Comment(s): Bronchitis, gestational diabetes, seizures with last one 01/2024, sickle cell trait, liver cirrhosis, anemia, chrons, IBS, ulcerative colitis, lowr GI bleed, hemorrhoids, constipation, psoriasis, migraines, chronic low back and cervical pain, scoliosis, arhtritis in multiple joints, gout bilateral feet, History of Any Multi-Drug Resistant Organisms: None Reported Past Surgical History: Cholecystectomy, Orthopedic Surgery Additional Past Surgical History / Comment(s): L oophorectomy d/t cyst, D&C, colonoscopy, L carpal tunnel release, Past Anesthesia/Blood Transfusion Reactions: Motion Sickness, Postoperative Nausea & Vomiting (PONV) Past Psychological History: Anxiety, Bipolar, Depression, Schizophrenia Smoking Status: Former smoker Past Alcohol Use History: None Reported Past Drug Use History: Cocaine - Past Family History Mother History Unknown: Yes Family Medical History: Cancer Additional Family Medical History / Comment(s): Mother had breast cancer and metnal illness She is living. Father Family Medical History: Cancer Additional Family Medical History / Comment(s): Father is . He had agent orange exposure. He had liver cancer, bowel to brain cancer. General Exam - General Exam Comments Initial Comments: Visual Physical Exam Vital signs reviewed General: Well-appearing, nontoxic, no acute distress. Head: Normocephalic, atraumatic Eyes: PERRLA, EOMI ENT: Airway patent Chest: Nonlabored breathing Skin: No visual rash, normal skin tone Neuro: Alert and oriented 3 Musculoskeletal: No gross abnormalities Limitations: no limitations General appearance: alert, in no apparent distress Head exam: Present: atraumatic, normocephalic, normal inspection Eye exam: Present: normal appearance, PERRL, EOMI. Absent: scleral icterus, conjunctival injection, periorbital swelling Respiratory exam: Present: normal lung sounds bilaterally. Absent: respiratory distress, wheezes, rales, rhonchi, stridor Cardiovascular Exam: Present: regular rate, normal rhythm, normal heart sounds. Absent: systolic murmur, diastolic murmur, rubs, gallop, clicks GI/Abdominal exam: Present: soft, normal bowel sounds. Absent: distended, tenderness, guarding, rebound, rigid Neurological exam: Present: alert, oriented X3 Psychiatric exam: Present: normal affect, normal mood Skin exam: Present: warm, dry, intact, normal color. Absent: rash Course Vital Signs 08/04/24 15:05 Temperature 98.2 F Pulse Rate 87 Respiratory 18 Rate Blood Pressure 150/86 O2 Sat by Pulse 95 Oximetry Medical Decision Making - Medical Decision Making I completed the quick note portion of this chart signed Lorenza Elizabeth PA-C Was pt. sent in by a medical professional or institution (, PA, STEAM TRAIN DRIVER, urgent care, hospital, or skilled nursing...) When possible be specific @ -No Did you speak to anyone other than the patient for history (EMS, parent, family, police, friend...)? What history was obtained from this source @ -No Did you review nursing and triage notes (agree or disagree)? Why? @ -I reviewed and agree with nursing and triage notes Were old charts reviewed (outside hosp., previous admission, EMS record, old EKG, old radiological studies, urgent care reports/EKG's, skilled nursing records)? Report findings @ -No old charts were reviewed Differential Diagnosis (chest pain, altered mental status, abdominal pain women, abdominal pain men, vaginal bleeding, weakness, fever, dyspnea, syncope, headache, dizziness, GI bleed, back pain, seizure, CVA, palpatations, mental health, musculoskeletal)? @ -Hyperglycemia, DKA, [facility] EKG interpreted by me (3pts min.). @ -None X-rays interpreted by me (1pt min.). @ -None done CT interpreted by me (1pt min.). @ -None done U/S interpreted by me (1pt. min.). @ -None done What testing was considered but not performed or refused? (CT, X-rays, U/S, labs)? Why? @ -Lab work deferred due to patient is asymptomatic and blood glucose is less than 250 What meds were considered but not given or refused? Why? @ -None Did you discuss the management of the patient with other professionals (professionals i.e. , PA, STEAM TRAIN DRIVER, lab, RT, psych nurse, medical social worker, phytopathologist, teacher, traffic division commanding officer, case mgr)? Give summary @ -No Was smoking cessation discussed for >3mins.? @ -No Was critical care preformed (if so, how long)? @ -No Were there social determinants of health that impacted care today? How? (Homelessness, low income, unemployed, alcoholism, drug addiction, transportation, low edu. Level, literacy, decrease access to med. care, prison, rehab)? @ -No Was there de-escalation of care discussed even if they declined (Discuss DNR or withdrawal of care, Hospice)? DNR status @ -No What co-morbidities impacted this encounter? (DM, HTN, Smoking, COPD, CAD, Cancer, CVA, ARF, Chemo, Hep., AIDS, mental health diagnosis, sleep apnea, morbid obesity)? @ -None Was patient admitted / discharged? Hospital course, mention meds given and route, prescriptions, significant lab abnormalities, going to OR and other pertinent info. @ -Discharged. 44-year-old female with history of type 2 diabetes presenting for elevated blood glucose. States her blood glucose was 550 before her sliding scale insulin. Blood sugar then decreased to 190. She is asymptomatic. Blood glucose in triage is 201. Patient was monitored for 30 minutes and recheck blo od glucose was 181. Lab work deferred as there is no sign of DKA. Appropriate return precautions and follow-up care discussed. Case was discussed with my ED attending Dr. Webb. Undiagnosed new problem with uncertain prognosis? @ -No Drug Therapy requiring intensive monitoring for toxicity (Heparin, Nitro, Insulin, Cardizem)? @ -No Were any procedures done? @ -No Diagnosis/symptom? @ -Hyperglycemia Acute, or Chronic, or Acute on Chronic? @ -Acute Uncomplicated (without systemic symptoms) or Complicated (systemic symptoms)? @ -Uncomplicated Side effects of treatment? @ -No Exacerbation, Progression, or Severe Exacerbation? @ -No Poses a threat to life or bodily function? How? (Chest pain, [place], [place], pneumonia, PE, COPD, DKA, ARF, appy, cholecystitis, CVA, Diverticulitis, Homicidal, Suic idal, threat to staff... and all critical care pts) @ -No - Lab Data Lab Results 08/04/24 08/04/24 Range/Units 15:09 16:27 POC Glucose (mg/dL) 201 H 181 H (70-110) mg/dL POC Glu [facility] [employer] Receptionist ID Pete Gustafson Disposition Clinical Impression: Hyperglycemia Disposition: HOME SELF-CARE Condition: Stable Instructions (If sedation given, give patient instructions): Diabetic Hyperglycemia (ED) Additional Instructions: Please return to the Emergency Department if symptoms worsen or any other concerns. Is patient prescribed a controlled substance at d/c from ED?: No Referrals: Evelyn Blas MD [Primary Care Provider] - 1-2 days Time of Disposition: 16:34
[2024-08-04 16:28] LABS: Glucose,Whole Blood 181 mg/dL (70-110)
== END 2024-08-04 16:46 | disposition home or self-care (01) ==
LOC: EC 14:46
DX: E11.65 Type 2 diabetes mellitus with hyperglycemia (principal); Z88.0 Allergy status to penicillin; Z88.1 Allergy status to other antibiotic agents; Z91.041 Radiographic dye allergy status; Z91.010 Allergy to peanuts; Z87.891 Personal history of nicotine dependence
CPT/HCPCS: 36415; 99284

== ENCOUNTER 2024-08-05 19:45 | Emergency (ER) | payer OTHER ==
--- NOTE | 2024-08-05 20:46 | ED ---
Abdominal Pain HPI - General Chief Complaint: Abdominal Pain Stated Complaint: difficulty breathing Time Seen by Provider: 08/05/24 20:44 Source: patient, RN notes reviewed Mode of arrival: ambulatory Limitations: no limitations - History of Present Illness Initial Comments: 44-year-old female well-known to the ER presenting to the ER for abdominal bloa ting x 1 day. States over the course of the day her abdomen feels swollen especially after she eats. Denies abdominal pain, fever, chills, nausea, vomiting, chest pain, urinary symptoms. She has history of poorly controlled type 2 diabetes, asthma, COPD, and hypertension. - Related Data Previous Rx's Medication Instructions Recorded Naltrexone HCl [Revia] 50 mg PO DAILY 30 Days #30 tab 04/25/24 Alcohol Antiseptic Pads [Alcohol 1 pad TOPICAL QID #120 pad 06/20/24 Swabs] Blood Sugar Diagnostic [Test 1 strip MISCELLANE QID #120 strip 06/20/24 Strips] Haloperidol Decanoate [Haldol D] 50 mg IM Q21D #1 each 06/20/24 Haloperidol Decanoate [Haldol D] 50 mg IM Q21D #1 each 06/20/24 Insulin Aspart [NovoLOG Flexpen] 3 units SQ AC-TID #5 each 06/20/24 Insulin Detemir (Levemir) [Levemir] 20 unit SQ DAILY@0700 #10 ml 06/20/24 Lancets 1 each MISCELLANE QID #120 each 06/20/24 Nystatin 100,000Unit/gm Cream 1 applic TOPICAL BID 30 Days #1 06/20/24 [Mycostatin Cream] each Syringe and Needle,Insulin,1Ml 1 syr SQ DIRECTED #120 each 06/20/24 [Insulin Syringe 28G 1/2" 1ML] fluvoxaMINE [Luvox] 200 mg PO HS 30 Days #120 tab 06/20/24 metFORMIN HCL [Glucophage] 1,000 mg PO BID-W/MEALS #120 tab 06/20/24 Pen Needle, Diabetic [Pen (Sandra) 1 needle SQ QID #120 each 06/22/24 Needle 4mm 32G (BD)] Omeprazole 20 mg PO DAILY #30 tab 06/23/24 Azithromycin [Zithromax Z Pack] 250 tab PO DIRECTED #4 tab 06/25/24 Guaifenesin/Dextromethorphan 1 each PO DIRECTED #20 capsule 06/25/24 [Robitussin Hioej-Uurvt-Xefx Dm] Azithromycin [Zithromax] 250 mg PO DIRECTED 5 Days #6 tab 06/26/24 lidocaine HCL [Lidocaine HCl 10 ml MM Q4-6H PRN #100 ml 06/26/24 Viscous] Albuterol Sulfate [Ventolin HFA] 1 puff INHALATION Q6H PRN #1 each 06/30/24 Azithromycin [Zithromax] 250 mg PO DAILY 4 Days #4 tab 06/30/24 predniSONE [Deltasone] 40 mg PO BID 5 Days #10 tab 06/30/24 Sulfamethox-Tmp 800-160Mg [Bactrim 1 tab PO Q12HR 7 Days #14 tab 07/08/24 DS 800-160 mg] Allergies Allergy/AdvReac Type Severity Reaction Status Date / Time Iodinated Contrast Media Allergy Anaphylaxis Verified 08/05/24 20:08 [Iodinated Contrast Media - IV Dye] lacosamide [From Vimpat] Allergy Anaphylaxis Verified 08/05/24 20:08 peanut Allergy Anaphylaxis Verified 08/05/24 20:08 Penicillins Allergy Anaphylaxis Verified 08/05/24 20:08 shellfish derived Allergy swelling Verified 08/05/24 20:08 all over body cephalexin monohydrate AdvReac Rash, Verified 08/05/24 20:08 [From Keflex] Nausea, Vomiting & Diarrhea trazodone AdvReac bp Verified 08/05/24 20:08 issues/dizziness Review of Systems ROS Statement: Those systems with pertinent positive or pertinent negative responses have been documented in the HPI. ROS Other: All systems not noted in ROS Statement are negative. Past Medical History Past Medical History: Asthma, Heart Failure, COPD, Diabetes Mellitus, Fibromyalgia, GERD/Reflux, GI Bleed, Hypertension, Liver Disease, Osteoarthritis (OA), Pneumonia, Seizure Disorder, Skin Disorder Additional Past Medical History / Comment(s): Bronchitis, gestational diabetes, seizures with last one 01/2024, sickle cell trait, liver cirrhosis, anemia, chrons, IBS, ulcerative colitis, lowr GI bleed, hemorrhoids, constipation, psoriasis, migraines, chronic low back and cervical pain, scoliosis, arhtritis in multiple joints, gout bilateral feet, History of Any Multi-Drug Resistant Organisms: None Reported Past Surgical History: Cholecystectomy, Orthopedic Surgery Additional Past Surgical History / Comment(s): L oophorectomy d/t cyst, D&C, colonoscopy, L carpal tunnel release, Past Anesthesia/Blood Transfusion Reactions: Motion Sickness, Postoperative Nausea & Vomiting (PONV) Past Psychological History: Anxiety, Bipolar, Depression, Schizophrenia Smoking Status: Former smoker Past Alcohol Use History: None Reported Past Drug Use History: Cocaine - Past Family History Mother History Unknown: Yes Family Medical History: Cancer Additional Family Medical History / Comment(s): Mother had breast cancer and metnal illness She is living. Father Family Medical History: Cancer Additional Family Medical History / Comment(s): Father is . He had agent orange exposure. He had liver cancer, bowel to brain cancer. General Exam Limitations: no limitations General appearance: alert, in no apparent distress Head exam: Present: atraumatic, normocephalic, normal inspection Respiratory exam: Present: normal lung sounds bilaterally. Absent: respiratory distress, wheezes, rales, rhonchi, stridor Cardiovascular Exam: Present: regular rate, normal rhythm, normal heart sounds. Absent: systolic murmur, diastolic murmur, rubs, gallop, clicks GI/Abdominal exam: Present: soft, normal bowel sounds. Absent: distended, tenderness, guarding, rebound, rigid Extremities exam: Present: normal inspection, full ROM, normal capillary refill. Absent: tenderness, pedal edema, joint swelling, calf tenderness Back exam: Present: normal inspection. Absent: CVA tenderness (R), CVA tenderness (L) Neurological exam: Present: alert, oriented X3, CN II-XII intact Psychiatric exam: Present: normal affect, normal mood Skin exam: Present: warm, dry, intact, normal color. Absent: rash Course Vital Signs 08/05/24 08/05/24 20:06 22:05 Temperature 98.2 F 98.0 F Pulse Rate 77 72 Respiratory 18 17 Rate Blood Pressure 142/85 138/80 O2 Sat by Pulse 96 97 Oximetry Medical Decision Making - Medical Decision Making Was pt. sent in by a medical professional or institution (, PA, MEDICAL CLAIMS ASSISTANT, urgent care, hospital, or skilled nursing...) When possible be specific @ -No Did you speak to anyone other than the patient for history (EMS, parent, family, police, friend...)? What history was obtained from this source @ -No Did you review nursing and triage notes (agree or disagree)? Why? @ -I reviewed and agree with nursing and triage notes Were old charts reviewed (outside hosp., previous admission, EMS record, old EKG, old radiological studies, urgent care reports/EKG's, skilled nursing records)? Report findings @ -No old charts were reviewed Differential Diagnosis (chest pain, altered mental status, abdominal pain women, abdominal pain men, vaginal bleeding, weakness, fever, dyspnea, syncope, headache, dizziness, GI bleed, back pain, seizure, CVA, palpatations, mental health, musculoskeletal)? @ -Differential Women: Appendicitis, Cholecystitis, diverticulosis, ischemic bowel, pancreatitis, hepatitis, UTI, gastroenteritis, AAA, incarcerated hernia, bowel obstruction, constipation, inflammatory bowel, hepatitis, peptic ulcer disease, splenic infarction, perforated viscus, vulvitis, ovarian torsion, PID, kidney stone, placenta abruption, this is not meant to be an all-inclusive list EKG interpreted by me (3pts min.). @ -None X-rays interpreted by me (1pt min.). @ -None done CT interpreted by me (1pt min.). @ -None done U/S interpreted by me (1pt. min.). @ -None done What testing was considered but not performed or refused? (CT, X-rays, U/S, labs)? Why? @ -Imaging deferred due to no abdominal tenderness or red flag symptoms What meds were considered but not given or refused? Why? @ -None Did you discuss the management of the patient with other professionals (professionals i.e. , PA, MEDICAL CLAIMS ASSISTANT, lab, RT, psych nurse, sr. social media & mobile manager, it program engagement director, teacher, amphibious operations officer, casework specialist)? Give summary @ -No Was smoking cessation discussed for >3mins.? @ -No Was critical care preformed (if so, how long)? @ -No Were there social determinants of health that impacted care today? How? (Homelessness, low income, unemployed, alcoholism, drug addiction, transportation, low edu. Level, literacy, decrease access to med. care, halfway, rehab)? @ -No Was there de-escalation of care discussed even if they declined (Discuss DNR or withdrawal of care, Hospice)? DNR status @ -No What co-morbidities impacted this encounter? (DM, HTN, Smoking, COPD, CAD, Cancer, CVA, ARF, Chemo, Hep., AIDS, mental health diagnosis, sleep apnea, morbid obesity)? @ -None Was patient admitted / discharged? Hospital course, mention meds given and route, prescriptions, significant lab abnormalities, going to OR and other pertinent info. @ -Discharge. This is a 44-year-old female presenting for abdominal bloating x 1 day. Vital signs within acceptable limits. No acute distress. Abdomen is soft and nontender to palpation, no sign of ascites or distention. Lab work remarkable for white blood cell count 15.9 comparable to baseline, glucose 167, elevated liver enzymes comparable to baseline. Discussed results with patient. Patient is asking for food and tolerating orals well at bedside. I believe it is safe to discharge patient home with close follow-up with PCP and strict return precautions. Case was discussed with my ED attending Dr. Ramos. Undiagnosed new problem with uncertain prognosis? @ -No Drug Therapy requiring intensive monitoring for toxicity (Heparin, Nitro, Insulin, Cardizem)? @ -No Were any procedures done? @ -No Diagnosis/symptom? @ -Abdominal bloating Acute, or Chronic, or Acute on Chronic? @ -Acute Uncomplicated (without systemic symptoms) or Complicated (systemic symptoms)? @ -Uncomplicated Side effects of treatment? @ -No Exacerbation, Progression, or Severe Exacerbation? @ -No Poses a threat to life or bodily function? How? (Chest pain, [place], [place], pneumonia, PE, COPD, DKA, ARF, appy, cholecystitis, CVA, Diverticulitis, Homicidal, Suicidal, threat to staff... and all critical care pts) @ -Not at this time - Lab Data Result diagrams: 08/05/24 20:36 08/05/24 20:36 Lab Results 08/05/24 08/05/24 08/05/24 Range/Units 20:36 20:36 20:36 WBC 15.9 H (3.8-10.6) k/uL RBC 5.04 (3.80-5.40) m/uL Hgb 14.2 (11.4-16.0) gm/dL Hct 44.3 (34.0-46.0) % MCV 88.0 (80.0-100.0) fL MCH 28.3 (25.0-35.0) pg MCHC 32.1 (31.0-37.0) g/dL RDW 15.4 (11.5-15.5) % Plt Count 219 (150-450) k/uL MPV 7.5 Neutrophils % 73 % Lymphocytes % 18 % Monocytes % 5 % Eosinophils % 3 % Basophils % 0 % Neutrophils # 11.6 H (1.3-7.7) k/uL Lymphocytes # 2.8 (1.0-4.8) k/uL Monocytes # 0.8 (0-1.0) k/uL Eosinophils # 0.5 (0-0.7) k/uL Basophils # 0.1 (0-0.2) k/uL Hypochromasia Slight Sodium 136 L (137-145) mmol/L Potassium 4.8 (3.5-5.1) mmol/L Chloride 102 (98-107) mmol/L Carbon Dioxide 22 (22-30) mmol/L Anion Gap 12 mmol/L BUN 19 H (7-17) mg/dL Creatinine 0.86 (0.52-1.04) mg/dL Est GFR (CKD-EPI)AfAm >90 (>60 ml/min/1.73 sqM) Est GFR (CKD-EPI)NonAf 83 (>60 ml/min/1.73 sqM) Glucose 167 H (74-99) mg/dL Plasma Lactic Acid Keon 1.7 (0.7-2.0) mmol/L Calcium 9.5 (8.4-10.2) mg/dL Total Bilirubin 0.4 (0.2-1.3) mg/dL AST 68 H (14-36) U/L ALT 55 H (4-34) U/L Alkaline Phosphatase 85 (38-126) U/L Total Protein 7.7 (6.3-8.2) g/dL Albumin 4.5 (3.5-5.0) g/dL Disposition Clinical Impression: Abdominal bloating Disposition: HOME SELF-CARE Condition: Stable Instructions (If sedation given, give patient instructions): Abdominal Pain (ED) Additional Instructions: Follow-up with PCP as discussed. Please return to the Emergency Department if symptoms worsen or any other concerns. Is patient prescribed a controlled substance at d/c from ED?: No Referrals: Evelyn Blas MD [Primary Care Provider] - 1-2 days Time of Disposition: 21:48
[2024-08-05 20:51] LABS: Basophils # (A) 0.1 k/uL (0-0.2); Basophils % (A) 0 %; Eosinophils # (A) 0.5 k/uL (0-0.7); Eosinophils % (A) 3 %; HCT 44.3 % (34.0-46.0); HGB 14.2 gm/dL (11.4-16.0); Hypochromasia Slight; Lymphocytes # (A) 2.8 k/uL (1.0-4.8); Lymphocytes % (A) 18 %; MCH 28.3 pg (25.0-35.0); MCHC 32.1 g/dL (31.0-37.0); Mean Platelet Volume 7.5; Monocytes # (A) 0.8 k/uL (0-1.0); Monocytes % (A) 5 %; Neutrophils # (A) 11.6 k/uL (1.3-7.7); Neutrophils % (A) 73 %; Platelet Count 219 k/uL (150-450); RBC 5.04 m/uL (3.80-5.40); RDW 15.4 % (11.5-15.5); WBC 15.9 k/uL (3.8-10.6)
[2024-08-05 21:01] LABS: ALT 55 U/L (4-34); AST 68 U/L (14-36); African American GFR (CKD) >90 (>60 ml/min/1.73 sqM); Albumin 4.5 g/dL (3.5-5.0); Alkaline Phosphatase 85 U/L (38-126); Anion Gap 12 mmol/L; Blood Urea Nitrogen 19 mg/dL (7-17); Calcium 9.5 mg/dL (8.4-10.2); Carbon Dioxide 22 mmol/L (22-30); Chloride 102 mmol/L (98-107); Glucose 167 mg/dL (74-99); Non-African American GFR(CKD) 83 (>60 ml/min/1.73 sqM); Sodium 136 mmol/L (137-145); Total Bilirubin 0.4 mg/dL (0.2-1.3); Total Protein 7.7 g/dL (6.3-8.2)
[2024-08-05 21:02] LABS: Potassium 4.8 mmol/L (3.5-5.1)
[2024-08-05 22:08] VITALS: BP 138/80; PULSE 72; RESP 17; TEMP 98
== END 2024-08-05 22:05 | disposition home or self-care (01) ==
LOC: EC 19:45
DX: R14.0 Abdominal distension (gaseous) (principal); I10 Essential (primary) hypertension; E11.9 Type 2 diabetes mellitus without complications; J44.89 Other specified chronic obstructive pulmonary disease; Z88.0 Allergy status to penicillin; Z88.1 Allergy status to other antibiotic agents; Z88.8 Allergy status to other drugs, medicaments and biological substances; Z91.041 Radiographic dye allergy status; Z87.891 Personal history of nicotine dependence; Z79.4 Long term (current) use of insulin; Z79.899 Other long term (current) drug therapy
CPT/HCPCS: 36415; 80053; 83605; 85025; 99284

== ENCOUNTER 2024-10-07 17:54 | Emergency (ER) | payer OTHER ==
[2024-10-07 18:02] VITALS: TEMP 97.7
--- NOTE | 2024-10-07 18:39 | ED ---
General Adult HPI - General Chief complaint: Neuro Symptoms/Deficit Stated complaint: hand/facial numbness,abd pain Time Seen by Provider: 10/07/24 18:03 Source: patient, RN notes reviewed, old records reviewed Mode of arrival: ambulatory Limitations: no limitations - History of Present Illness Initial comments: 44-year-old female presenting with several day history of bilateral upper extremity tingling and perioral tingling. Patient denies focal numbness or weakness. Denies headache. Denies chest pain or dyspnea. She states she has been out of her [place] and believes this may be why she is having the symptoms. - Related Data Previous Rx's Medication Instructions Recorded Naltrexone HCl [Revia] 50 mg PO DAILY 30 Days #30 tab 04/25/24 Alcohol Antiseptic Pads [Alcohol 1 pad TOPICAL QID #120 pad 06/20/24 Swabs] Blood Sugar Diagnostic [Test 1 strip MISCELLANE QID #120 strip 06/20/24 Strips] Haloperidol Decanoate [Haldol D] 50 mg IM Q21D #1 each 06/20/24 Haloperidol Decanoate [Haldol D] 50 mg IM Q21D #1 each 06/20/24 Insulin Aspart [NovoLOG Flexpen] 3 units SQ AC-TID #5 each 06/20/24 Insulin Detemir (Levemir) [Levemir] 20 unit SQ DAILY@0700 #10 ml 06/20/24 Lancets 1 each MISCELLANE QID #120 each 06/20/24 Nystatin 100,000Unit/gm Cream 1 applic TOPICAL BID 30 Days #1 06/20/24 [Mycostatin Cream] each Syringe and Needle,Insulin,1Ml 1 syr SQ DIRECTED #120 each 06/20/24 [Insulin Syringe 28G 1/2" 1ML] fluvoxaMINE [Luvox] 200 mg PO HS 30 Days #120 tab 06/20/24 metFORMIN HCL [Glucophage] 1,000 mg PO BID-W/MEALS #120 tab 06/20/24 Pen Needle, Diabetic [Pen (Sandra) 1 needle SQ QID #120 each 06/22/24 Needle 4mm 32G (BD)] Omeprazole 20 mg PO DAILY #30 tab 06/23/24 Azithromycin [Zithromax Z Pack] 250 tab PO DIRECTED #4 tab 06/25/24 Guaifenesin/Dextromethorphan 1 each PO DIRECTED #20 capsule 06/25/24 [Robitussin Fzfjv-Npbjs-Jtao Dm] Azithromycin [Zithromax] 250 mg PO DIRECTED 5 Days #6 tab 06/26/24 lidocaine HCL [Lidocaine HCl 10 ml MM Q4-6H PRN #100 ml 06/26/24 Viscous] Albuterol Sulfate [Ventolin HFA] 1 puff INHALATION Q6H PRN #1 each 06/30/24 Azithromycin [Zithromax] 250 mg PO DAILY 4 Days #4 tab 06/30/24 predniSONE [Deltasone] 40 mg PO BID 5 Days #10 tab 06/30/24 Sulfamethox-Tmp 800-160Mg [Bactrim 1 tab PO Q12HR 7 Days #14 tab 07/08/24 DS 800-160 mg] Nystatin 100,000 Unit/gm Powd 1 applic TOPICAL TID #30 gm 08/30/24 [Mycostatin Powder] Allergies Allergy/AdvReac Type Severity Reaction Status Date / Time Iodinated Contrast Media Allergy Anaphylaxis Verified 10/07/24 18:02 [Iodinated Contrast Media - IV Dye] lacosamide [From Vimpat] Allergy Anaphylaxis Verified 10/07/24 18:02 peanut Allergy Anaphylaxis Verified 10/07/24 18:02 Penicillins Allergy Anaphylaxis Verified 10/07/24 18:02 shellfish derived Allergy swelling Verified 10/07/24 18:02 all over body cephalexin monohydrate AdvReac Rash, Verified 10/07/24 18:02 [From Keflex] Nausea, Vomiting & Diarrhea trazodone AdvReac bp Verified 10/07/24 18:02 issues/dizziness Review of Systems ROS Statement: Those systems with pertinent positive or pertinent negative responses have been documented in the HPI. ROS Other: All systems not noted in ROS Statement are negative. Past Medical History Past Medical History: Asthma, Heart Failure, COPD, Diabetes Mellitus, Fibromyalgia, GERD/Reflux, GI Bleed, Hypertension, Liver Disease, Osteoarthritis (OA), Pneumonia, Seizure Disorder, Skin Disorder Additional Past Medical History / Comment(s): Bronchitis, gestational diabetes, seizures with last one 01/2024, sickle cell trait, liver cirrhosis, anemia, chrons, IBS, ulcerative colitis, lowr GI bleed, hemorrhoids, constipation, psoriasis, migraines, chronic low back and cervical pain, scoliosis, arhtritis in multiple joints, gout bilateral feet, History of Any Multi-Drug Resistant Organisms: None Reported Past Surgical History: Cholecystectomy, Orthopedic Surgery Additional Past Surgical History / Comment(s): L oophorectomy d/t cyst, D&C, colonoscopy, L carpal tunnel release, Past Anesthesia/Blood Transfusion Reactions: Motion Sickness, Postoperative Nausea & Vomiting (PONV) Past Psychological History: Anxiety, Bipolar, Depression, Schizophrenia Smoking Status: Former smoker Past Alcohol Use History: None Reported Past Drug Use History: Cocaine - Past Family History Mother History Unknown: Yes Family Medical History: Cancer Additional Family Medical History / Comment(s): Mother had breast cancer and metnal illness She is living. Father Family Medical History: Cancer Additional Family Medical History / Comment(s): Father is . He had agent orange exposure. He had liver cancer, bowel to brain cancer. General Exam Limitations: no limitations General appearance: alert, in no apparent distress Head exam: Present: atraumatic, normocephalic Eye exam: Present: normal appearance, PERRL ENT exam: Present: normal exam Neck exam: Present: normal inspection. Absent: tenderness, meningismus Respiratory exam: Present: normal lung sounds bilaterally. Absent: respiratory distress, wheezes Cardiovascular Exam: Present: regular rate, normal rhythm GI/Abdominal exam: Present: soft. Absent: distended, tenderness Extremities exam: Present: normal inspection, normal capillary refill Neurological exam: Present: alert, oriented X3, CN II-XII intact, normal gait, other (5 out Of 5 strength, no focal neurologic findings). Absent: motor senso ry deficit Psychiatric exam: Present: normal affect, normal mood Skin exam: Present: warm, dry, intact Course Vital Signs 10/07/24 18:00 Temperature 97.7 F Pulse Rate 73 Respiratory 16 Rate Blood Pressure 132/85 O2 Sat by Pulse 97 Oximetry Medical Decision Making - Medical Decision Making Was pt. sent in by a medical professional or institution (, PA, ASSISTANT SALES MANAGER, urgent care, hospital, or jail...) When possible be specific @ -No Did you speak to anyone other than the patient for history (EMS, parent, family, police, friend...)? What history was obtained from this source @ -No Did you review nursing and triage notes (agree or disagree)? Why? @ -I reviewed and agree with nursing and triage notes Were old charts reviewed (outside hosp., previous admission, EMS record, old EKG, old radiological studies, urgent care reports/EKG's, jail records)? Report findings @ -No old charts were reviewed Differential Diagnosis:anxiety, electrolyte abnormality, paresthesia EKG interpreted by me (3pts min.). @ -As above X-rays interpreted by me (1pt min.). @ -None done CT interpreted by me (1pt min.). @ -None done U/S interpreted by me (1pt. min.). @ -None done What testing was considered but not performed or refused? (CT, X-rays, U/S, labs)? Why? @ -None What meds were considered but not given or refused? Why? @ -None Did you discuss the management of the patient with other professionals (professionals i.e. , PA, ASSISTANT SALES MANAGER, lab, RT, psych nurse, hospital social worker, seismology technical officer, teacher, cra officer, piano case and bench assembler)? Give summary @ -No Was smoking cessation discussed for >3mins.? @ -No Was critical care preformed (if so, how long)? @ -No Were there social determinants of health that impacted care today? How? (Homelessness, low income, unemployed, alcoholism, drug addiction, transportation, low edu. Level, literacy, decrease access to med. care, [facility] [facility], rehab)? @ -No Was there de-escalation of care discussed even if they declined (Discuss DNR or withdrawal of care, Hospice)? DNR status @ -No What co-morbidities impacted this encounter? (DM, HTN, Smoking, COPD, CAD, Cancer, CVA, ARF, Chemo, Hep., AIDS, mental health diagnosis, sleep apnea, morbid obesity)? @ diabetes Was patient admitted / discharged? Hospital course, mention meds given and route, prescriptions, significant lab abnormalities, going to OR and other pertinent info. @ -[h 44-year-old female with paresthesia, tingling sensation bilateral hands and face there is no focal neurologic findings. Patient has 5 out of 5 strength, normal gait, no ataxia, I did obtain laboratory test including CBC, CMP and magnesium she has a mild hyperglycemia with no other acute abnormalities in lab testing. Patient stable for discharge with follow-up with her primary care provider. Undiagnosed new problem with uncertain prognosis? @ -No Drug Therapy requiring intensive monitoring for toxicity (Heparin, Nitro, Insulin, Cardizem)? @ -No Were any procedures done? @ -No Diagnosis/symptom? @ -Paresthesia acute Acute, or Chronic, or Acute on Chronic? @ acute Uncomplicated (without systemic symptoms) or Complicated (systemic symptoms)? @ -Default Side effects of treatment? @ -No Exacerbation, Progression, or Severe Exacerbation? @ -No Poses a threat to life or bodily function? How? (Chest pain, [place], [place], pneumonia, PE, COPD, DKA, ARF, appy, cholecystitis, CVA, Diverticulitis, Homicidal, Suicidal, threat to staff... and all critical care pts) @ -No - Lab Data Result diagrams: 10/07/24 18:32 10/07/24 18:32 Lab Results 10/07/24 10/07/24 Range/Units 18:32 18:32 WBC 15.8 H (3.8-10.6) k/uL RBC 4.76 (3.80-5.40) m/uL Hgb 13.0 (11.4-16.0) gm/dL Hct 42.0 (34.0-46.0) % MCV 88.3 (80.0-100.0) fL MCH 27.3 (25.0-35.0) pg MCHC 30.9 L (31.0-37.0) g/dL RDW 15.2 (11.5-15.5) % Plt Count 218 (150-450) k/uL MPV 7.3 Neutrophils % 77 % Lymphocytes % 14 % Monocytes % 4 % Eosinophils % 4 % Basophils % 0 % Neutrophils # 12.1 H (1.3-7.7) k/uL Lymphocytes # 2.2 (1.0-4.8) k/uL Monocytes # 0.6 (0-1.0) k/uL Eosinophils # 0.6 (0-0.7) k/uL Basophils # 0.1 (0-0.2) k/uL Hypochromasia Slight Sodium 133 L (137-145) mmol/L Potassium 4.5 (3.5-5.1) mmol/L Chloride 98 (98-107) mmol/L Carbon Dioxide 26 (22-30) mmol/L Anion Gap 9 mmol/L BUN 18 H (7-17) mg/dL Creatinine 0.61 (0.52-1.04) mg/dL Est GFR (CKD-EPI)AfAm >90 (>60 ml/min/1.73 sqM) Est GFR (CKD-EPI)NonAf >90 (>60 ml/min/1.73 sqM) Glucose 233 H (74-99) mg/dL Calcium 9.0 (8.4-10.2) mg/dL Magnesium 1.6 (1.6-2.3) mg/dL Total Bilirubin 0.2 (0.2-1.3) mg/dL AST 29 (14-36) U/L ALT 33 (4-34) U/L Alkaline Phosphatase 91 (38-126) U/L Total Protein 6.7 (6.3-8.2) g/dL Albumin 3.7 (3.5-5.0) g/dL Disposition Clinical Impression: Leukocytosis, Paresthesia Disposition: HOME SELF-CARE Condition: Fair Instructions (If sedation given, give patient instructions): Paresthesia (ED) Is patient prescribed a controlled substance at d/c from ED?: No Referrals: Evelyn Blas MD [Primary Care Provider] - 1-2 days Time of Disposition: 19:11
[2024-10-07 18:41] LABS: Basophils # (A) 0.1 k/uL (0-0.2); Basophils % (A) 0 %; Eosinophils # (A) 0.6 k/uL (0-0.7); Eosinophils % (A) 4 %; Hypochromasia Slight; Lymphocytes # (A) 2.2 k/uL (1.0-4.8); Lymphocytes % (A) 14 %; MCH 27.3 pg (25.0-35.0); MCHC 30.9 g/dL (31.0-37.0); MCV 88.3 fL (80.0-100.0); Mean Platelet Volume 7.3; Monocytes # (A) 0.6 k/uL (0-1.0); Monocytes % (A) 4 %; Neutrophils # (A) 12.1 k/uL (1.3-7.7); Neutrophils % (A) 77 %; Platelet Count 218 k/uL (150-450); RBC 4.76 m/uL (3.80-5.40); RDW 15.2 % (11.5-15.5); WBC 15.8 k/uL (3.8-10.6)
[2024-10-07 19:06] LABS: ALT 33 U/L (4-34); AST 29 U/L (14-36); African American GFR (CKD) >90 (>60 ml/min/1.73 sqM); Albumin 3.7 g/dL (3.5-5.0); Alkaline Phosphatase 91 U/L (38-126); Anion Gap 9 mmol/L; Blood Urea Nitrogen 18 mg/dL (7-17); Carbon Dioxide 26 mmol/L (22-30); Chloride 98 mmol/L (98-107); Glucose 233 mg/dL (74-99); Magnesium 1.6 mg/dL (1.6-2.3); Non-African American GFR(CKD) >90 (>60 ml/min/1.73 sqM); Potassium 4.5 mmol/L (3.5-5.1); Sodium 133 mmol/L (137-145); Total Bilirubin 0.2 mg/dL (0.2-1.3); Total Protein 6.7 g/dL (6.3-8.2)
[2024-10-07 19:31] VITALS: BP 138/75; PULSE 70; RESP 18
== END 2024-10-07 20:18 | disposition home or self-care (01) ==
LOC: EC 17:54
DX: D72.829 Elevated white blood cell count, unspecified (principal); R20.2 Paresthesia of skin; E11.9 Type 2 diabetes mellitus without complications; Z87.891 Personal history of nicotine dependence
CPT/HCPCS: 36415; 80053; 83735; 85025; 99284

== ENCOUNTER 2024-10-17 22:47 | Inpatient (IN) | payer MEDICAID, OTHER ==
--- NOTE | 2024-10-17 23:44 | ED ---
Psych HPI - General Chief Complaint: Psychiatric Symptoms Stated Complaint: Anxiety Time Seen by Provider: 10/17/24 23:42 Source: patient, RN notes reviewed Mode of arrival: ambulatory - History of Present Illness Initial Comments: 44-year-old female presenting for suicidal ideation. States she has been having increased anxiety and increased thoughts of harming herself. States she is having thoughts of killing herself by slicing herself with a knife or razor blade. She does not feel as though her psych medications are working. No medical complaints at this time. - Related Data Previous Rx's Medication Instructions Recorded Naltrexone HCl [Revia] 50 mg PO DAILY 30 Days #30 tab 04/25/24 Alcohol Antiseptic Pads [Alcohol 1 pad TOPICAL QID #120 pad 06/20/24 Swabs] Blood Sugar Diagnostic [Test 1 strip MISCELLANE QID #120 strip 06/20/24 Strips] Haloperidol Decanoate [Haldol D] 50 mg IM Q21D #1 each 06/20/24 Haloperidol Decanoate [Haldol D] 50 mg IM Q21D #1 each 06/20/24 Insulin Aspart [NovoLOG Flexpen] 3 units SQ AC-TID #5 each 06/20/24 Insulin Detemir (Levemir) [Levemir] 20 unit SQ DAILY@0700 #10 ml 06/20/24 Lancets 1 each MISCELLANE QID #120 each 06/20/24 Nystatin 100,000Unit/gm Cream 1 applic TOPICAL BID 30 Days #1 06/20/24 [Mycostatin Cream] each Syringe and Needle,Insulin,1Ml 1 syr SQ DIRECTED #120 each 06/20/24 [Insulin Syringe 28G 1/2" 1ML] fluvoxaMINE [Luvox] 200 mg PO HS 30 Days #120 tab 06/20/24 metFORMIN HCL [Glucophage] 1,000 mg PO BID-W/MEALS #120 tab 06/20/24 Pen Needle, Diabetic [Pen (Sandra) 1 needle SQ QID #120 each 06/22/24 Needle 4mm 32G (BD)] Omeprazole 20 mg PO DAILY #30 tab 06/23/24 Azithromycin [Zithromax Z Pack] 250 tab PO DIRECTED #4 tab 06/25/24 Guaifenesin/Dextromethorphan 1 each PO DIRECTED #20 capsule 11/24/24 [Robitussin Ppicw-Cpklk-Wysf Dm] Azithromycin [Zithromax] 250 mg PO DIRECTED 5 Days #6 tab 06/26/24 lidocaine HCL [Lidocaine HCl 10 ml MM Q4-6H PRN #100 ml 06/26/24 Viscous] Albuterol Sulfate [Ventolin HFA] 1 puff INHALATION Q6H PRN #1 each 06/30/24 Azithromycin [Zithromax] 250 mg PO DAILY 4 Days #4 tab 06/30/24 predniSONE [Deltasone] 40 mg PO BID 5 Days #10 tab 06/30/24 Sulfamethox-Tmp 800-160Mg [Bactrim 1 tab PO Q12HR 7 Days #14 tab 07/08/24 DS 800-160 mg] Nystatin 100,000 Unit/gm Powd 1 applic TOPICAL TID #30 gm 08/30/24 [Mycostatin Powder] Allergies Allergy/AdvReac Type Severity Reaction Status Date / Time Iodinated Contrast Media Allergy Anaphylaxis Verified 10/17/24 22:51 [Iodinated Contrast Media - IV Dye] lacosamide [From Vimpat] Allergy Anaphylaxis Verified 10/17/24 22:51 peanut Allergy Anaphylaxis Verified 10/17/24 22:51 Penicillins Allergy Anaphylaxis Verified 10/17/24 22:51 shellfish derived Allergy swelling Verified 10/17/24 22:51 all over body cephalexin monohydrate AdvReac Rash, Verified 10/17/24 22:51 [From Keflex] Nausea, Vomiting & Diarrhea trazodone AdvReac bp Verified 10/17/24 22:51 issues/dizziness Review of Systems ROS Statement: Those systems with pertinent positive or pertinent negative responses have been documented in the HPI. ROS Other: All systems not noted in ROS Statement are negative. Past Medical History Past Medical History: Asthma, Heart Failure, COPD, Diabetes Mellitus, Fibromyalgia, GERD/Reflux, GI Bleed, Hypertension, Liver Disease, Osteoarthritis (OA), Pneumonia, Seizure Disorder, Skin Disorder Additional Past Medical History / Comment(s): Bronchitis, gestational diabetes, seizures with last one 01/2024, sickle cell trait, liver cirrhosis, anemia, chrons, IBS, ulcerative colitis, lowr GI bleed, hemorrhoids, constipation, psoriasis, migraines, chronic low back and cervical pain, scoliosis, arhtritis in multiple joints, gout bilateral feet, History of Any Multi-Drug Resistant Organisms: None Reported Past Surgical History: Cholecystectomy, Orthopedic Surgery Additional Past Surgical History / Comment(s): L oophorectomy d/t cyst, D&C, colonoscopy, L carpal tunnel release, Past Anesthesia/Blood Transfusion Reactions: Motion Sickness, Postoperative Nausea & Vomiting (PONV) Past Psychological History: Anxiety, Bipolar, Depression, Schizophrenia Smoking Status: Former smoker Past Alcohol Use History: None Reported Past Drug Use History: Cocaine - Past Family History Mother History Unknown: Yes Family Medical History: Cancer Additional Family Medical History / Comment(s): Mother had breast cancer and metnal illness She is living. Father Family Medical History: Cancer Additional Family Medical History / Comment(s): Father is . He had agent orange exposure. He had liver cancer, bowel to brain cancer. General Exam Limitations: no limitations General appearance: alert, in no apparent distress Head exam: Present: atraumatic, normocephalic, normal inspection Eye exam: Present: normal appearance, PERRL, EOMI. Absent: scleral icterus, conjunctival injection, periorbital swelling ENT exam: Present: normal exam, mucous membranes moist Neurological exam: Present: alert, oriented X3 Psychiatric exam: Present: normal affect, normal mood, suicidal ideation. Absent: homicidal ideation Skin exam: Present: warm, dry, intact, normal color. Absent: rash Course Vital Signs 10/17/24 22:48 Temperature 98.9 F Pulse Rate 60 Respiratory 17 Rate Blood Pressure 125/63 O2 Sat by Pulse 95 Oximetry Medical Decision Making - Medical Decision Making Was pt. sent in by a medical professional or institution (, PA, MERCHANDISE ASSOCIATE, urgent care, hospital, or longterm...) When possible be specific @ -No Did you speak to anyone other than the patient for history (EMS, parent, family, police, friend...)? What history was obtained from this source @ -No Did you review nursing and triage notes (agree or disagree)? Why? @ -I reviewed and agree with nursing and triage notes Were old charts reviewed (outside hosp., previous admission, EMS record, old EKG, old radiological studies, urgent care reports/EKG's, longterm records)? Report findings @ -No old charts were reviewed Differential Diagnosis (chest pain, altered mental status, abdominal pain women, abdominal pain men, vaginal bleeding, weakness, fever, dyspnea, syncope, headache, dizziness, GI bleed, back pain, seizure, CVA, palpatations, mental health, musculoskeletal)? @ -Differential Mental Health Depression, anxiety, bipolar, psychosis, schizophrenia, borderline personality, situational depression, adjustment disorder, behavioral disorder, brain tumor, malingering, substance abuse, encephalopathy, medication reaction, dementia, hypothyroidism, degenerative neurologic disorder, lupus.... This is not meant to be all-inclusive list EKG interpreted by me (3pts min.). @ -None X-rays interpreted by me (1pt min.). @ -None done CT interpreted by me (1pt min.). @ -None done U/S interpreted by me (1pt. min.). @ -None done What testing was considered but not performed or refused? (CT, X-rays, U/S, labs)? Why? @ -None What meds were considered but not given or refused? Why? @ -None Did you discuss the management of the patient with other professionals (professionals i.e. , PA, MERCHANDISE ASSOCIATE, lab, RT, psych nurse, social work msw, field seismologist, teacher, chief analytics officer, home health care case manager)? Give summary @ -No Was smoking cessation discussed for >3mins.? @ -No Was critical care preformed (if so, how long)? @ -No Were there social determinants of health that impacted care today? How? (Homelessness, low income, unemployed, alcoholism, drug addiction, transportation, low edu. Level, literacy, decrease access to med. care, shelter, rehab)? @ -No Was there de-escalation of care discussed even if they declined (Discuss DNR or withdrawal of care, Hospice)? DNR status @ -No What co-morbidities impacted this encounter? (DM, HTN, Smoking, COPD, CAD, Cancer, CVA, ARF, Chemo, Hep., AIDS, mental health diagnosis, sleep apnea, morbid obesity)? @ -None Was patient admitted / discharged? Hospital course, mention meds given and route, prescriptions, significant lab abnormalities, going to OR and other pertinent info. @ -Admitted. 44-year-old female presenting with suicidal ideation. No medical complaints at this time. Patient is medically cleared to be seen by EPS. EPS recommends inpatient psychiatric admission. I agree with this plan. Case was discussed with my ED attending Dr. Trachy. Undiagnosed new problem with uncertain prognosis? @ -No Drug Therapy requiring intensive monitoring for toxicity (Heparin, Nitro, Insulin, Cardizem)? @ -No Were any procedures done? @ -No Diagnosis/symptom? @ -Suicidal ideation Acute, or Chronic, or Acute on Chronic? @ -Acute Uncomplicated (without systemic symptoms) or Complicated (systemic symptoms)? @ -Uncomplicated Side effects of treatment? @ -No Exacerbation, Progression, or Severe Exacerbation? @ -No Poses a threat to life or bodily function? How? (Chest pain, [place], [place], pneumonia, PE, COPD, DKA, ARF, appy, cholecystitis, CVA, Diverticulitis, Homicidal, Suicidal, threat to staff... and all critical care pts) @ -Yes, suicidal - Lab Data Lab Results 10/17/24 Range/Units 23:46 Urine Opiates Screen Not Detected (NotDetected) Ur Oxycodone Screen Not Detected (NotDetected) Urine Methadone Screen Not Detected (NotDetected) Ur Barbiturates Screen Not Detected (NotDetected) U Tricyclic Antidepress Not Detected (NotDetected) Ur Phencyclidine Scrn Not Detected (NotDetected) Ur Amphetamines Screen Not Detected (NotDetected) U Methamphetamines Scrn Not Detected (NotDetected) U Benzodiazepines Scrn Not Detected (NotDetected) Urine Cocaine Screen Not Detected (NotDetected) U Marijuana (THC) Screen Not Detected (NotDetected) Disposition Clinical Impression: Suicidal ideation Disposition: ADMITTED IP TO THIS HOSP Referrals: Evelyn Blas MD [Primary Care Provider] - 1-2 days Time of Disposition: 03:45
[2024-10-18 01:35] LABS: Amphetamine Screen,Urine Not Detected (NotDetected); Barbiturate Screen,Urine Not Detected (NotDetected); Benzodiazepines Screen,Urine Not Detected (NotDetected); Cocaine Screen,Urine Not Detected (NotDetected); Methadone Screen, Urine Not Detected (NotDetected); Opiate Screen,Urine Not Detected (NotDetected); Oxycodone Screen, Urine Not Detected (NotDetected); Phencyclidine Screen,Urine Not Detected (NotDetected); Tricyclic Antidepressant,Urine Not Detected (NotDetected); Urn Cannabinoid Scrn Not Detected (NotDetected)
[2024-10-18] MEDS ORDERED: HALOPERIDOL LACTATE 5 MG/ML 1 ML VIAL IM PRN (04:15)
[2024-10-18] MEDS ORDERED: LORazepam 2 MG/ML INJ IM PRN (04:15)
[2024-10-18] MEDS ORDERED: haloperidoL 5 MG TAB PO PRN (04:15)
[2024-10-18] MEDS ORDERED: MAGNESIUM HYDROXIDE 2,400 MG/30 ML CUP PO PRN (04:15)
[2024-10-18] MEDS ORDERED: ALBUTEROL INHALER 60 PUFF/8 GM INHALER (MHU) INHALATION PRN ×2 (11:38→13:01)
[2024-10-18] MEDS ORDERED: DEXTROSE 50% SYRINGE 50 ML IVP PRN ×2 (11:41)
[2024-10-18 12:23] LABS: Glucose,Whole Blood 168 mg/dL (70-110)
[2024-10-18] MEDS ORDERED: INSULIN LISPRO (HumaLOG) 100 UNIT/ML 10 mL VL SQ SCH (12:30)
[2024-10-18] MEDS: INSULIN LISPRO (HumaLOG) 100 UNIT/ML 10 mL VL SQ SCH (12:39)
[2024-10-18] MEDS: busPIRone HCl 5 MG TAB PO SCH (12:39)
[2024-10-18] MEDS ORDERED: NON FORMULARY DRUG (Dulaglutide [Trulicity] 1.5 MG/0.5 ML Each) SQ SCH (13:15)
--- NOTE | 2024-10-18 13:38 | CONS ---
CONSULTATION REASON FOR CONSULTATION: Advice regarding CHF and other medical issues, requested by Psych. HISTORY OF PRESENT ILLNESS: This is a 44-year-old woman with a past medical history of multiple medical problems including asthma, COPD, CHF, being followed by Dr. Evelyn Blas in the outpatient, admitted for suicidal ideation. There is no history of any fever, rigors, or chills. No history of headache, loss of consciousness, or seizures. No shortness of breath. JVD is not increased and there is no leg edema. PAST MEDICAL HISTORY: Reviewed include asthma, CHF, COPD. Rest of the history and rest of the chart are also reviewed. HOME MEDICATIONS: Reviewed include Trulicity. Dose and rest of medications reviewed. ALLERGIES: Multiple allergies reviewed include peanut. Rest of allergies noted. FAMILY HISTORY: History of breast cancer. SOCIAL HISTORY: The patient had history of cocaine. REVIEW OF SYSTEMS: A 14-point review of systems is negative except as mentioned earlier. PHYSICAL EXAMINATION: VITAL SIGNS: Pulse is 75, blood pressure 137/74, respirations 18. HEENT: Conjunctivae normal. NECK: No JVD. CARDIOVASCULAR: S1, S2. RESPIRATIONS: Breath sounds diminished at the bases. No rhonchi. No crackles. ABDOMEN: Soft. LEGS: No edema. NERVOUS SYSTEM: Nonfocal. LABORATORY DATA: Glucose 68. ASSESSMENT: 1. Suicidal ideation, depression. 2. History of congestive heart failure. 3. History of chronic obstructive pulmonary disease, asthma. 4. Diabetes mellitus type 2. 5. Hypertension. 6. History of chronic liver disease. 7. History of pneumonia. 8. Seizure disorder. 9. History of cocaine. 10.Bipolar, anxiety, depression. RECOMMENDATIONS AND DISCUSSION: This is a 44-year-old woman, who presented to Psychiatry, has multiple complex medical issues, but however, the patient appears to be medically stable at this time, I recommend to continue the home medications and scale and resume the home medications. The patient may be asked to follow up with primary physician closely after discharge. The home medications will be reviewed and reordered as necessary. We will follow the patient closely. ROSALIA / NATALIE: [id number] /
[2024-10-18] MEDS: INSULIN GLARGINE (LANTUS) 100 UNIT/ML SYR SQ SCH (13:45)
[2024-10-18] MEDS: SPIRONOLACTONE 25 MG TAB PO SCH (13:45)
[2024-10-18] MEDS: DAPAGLIFLOZIN PROPANEDIOL 10 MG TABLET PO SCH (13:45)
[2024-10-18] MEDS: ASPIRIN 81 MG PO SCH (13:45)
[2024-10-18] MEDS: PANTOPRAZOLE 40 MG TABLET PO SCH (13:46)
[2024-10-18] MEDS: MAG HYDROX/AL HYDROX/SIMETH 355 ML BOTTLE PO PRN (15:50)
--- NOTE | 2024-10-18 17:04 | P.HP ---
Psychiatric H&P - . H&P Date: 10/18/24 History & Physical: Allergies Allergy/AdvReac Type Severity Reaction Status Date / Time Iodinated Contrast Media Allergy Anaphylaxis Verified 10/17/24 22:51 [Iodinated Contrast Media - IV Dye] lacosamide [From Vimpat] Allergy Anaphylaxis Verified 10/17/24 22:51 peanut Allergy Anaphylaxis Verified 10/17/24 22:51 Penicillins Allergy Anaphylaxis Verified 10/17/24 22:51 shellfish derived Allergy swelling Verified 10/17/24 22:51 all over body cephalexin monohydrate AdvReac Rash, Verified 10/17/24 22:51 [From Keflex] Nausea, Vomiting & Diarrhea trazodone AdvReac bp Verified 10/17/24 22:51 issues/dizziness Vital Signs Temp 97.5 F L 10/18/24 09:00 Pulse 66 10/18/24 09:00 Resp 20 10/18/24 09:00 BP 122/70 10/18/24 09:00 Pulse Ox 96 10/18/24 09:00 FiO2 Intake & Output 10/17/24 10/18/24 10/18/24 18:59 06:59 18:59 Weight 132.4 kg Laboratory Last Values Urine Opiates Screen Not Detected (NotDetected) 10/17/24 23:46 Ur Oxycodone Screen Not Detected (NotDetected) 10/17/24 23:46 Urine Methadone Screen Not Detected (NotDetected) 10/17/24 23:46 Ur Barbiturates Screen Not Detected (NotDetected) 10/17/24 23:46 U Tricyclic Antidepress Not Detected (NotDetected) 10/17/24 23:46 Ur Phencyclidine Scrn Not Detected (NotDetected) 10/17/24 23:46 Ur Amphetamines Screen Not Detected (NotDetected) 10/17/24 23:46 U Methamphetamines Scrn Not Detected (NotDetected) 10/17/24 23:46 U Benzodiazepines Scrn Not Detected (NotDetected) 10/17/24 23:46 Urine Cocaine Screen Not Detected (NotDetected) 10/17/24 23:46 U Marijuana (THC) Screen Not Detected (NotDetected) 10/17/24 23:46 SARS-CoV-2 (PCR) Not Detected (Not Detectd) 10/18/24 03:13 10/18/24 11:31 Patient is a 44-year-old female with the public guardian, recently released from halfway, on disability CHIEF COMPLAINT: Suicidal thoughts HPI: Patient presented to the ED stating "My meds are not working and I'm suicidal". Suyapa presents with suicidal ideation and anxiety. She states that the trigger was people asking about her past. She also describes social isolation and says she has no family or friends. She says Cymbalta was helpful for anxiety in the past. When asked about anxiety, patient endorses irritability, decreased energy, and having racing thoughts. She denies muscle fatigue and restlessness. She reports that her mood has been "tillman" and suicidal ideation without a plan for past 1 week. Patient displays concrete thinking and is unable to describe this further when asked. She reports good sleep without issues and reduced appetite. Patient denies any current suicidal ideation and homicidal ideation intent or plan. At this time patient denies any auditory or visual hallucinations. Patient denies any flight of ideas racing thoughts and increased in goal directed behavior. She denies symptoms consistent with trino. Patient has a hx of cocaine use and denies any substance use recently. PAST PSYCHIATRIC HISTORY: Patient has a history of MDD, borderline personality disorder, cocaine use disorder. Haldol decanoate, Luvox 150 mg at bedtime and naltrexone 50 mg at bedtime in the past. Patient has several inpatient hospitalizations, most recent being here in June. Patient follows with [facility] outpatient. Patient has a history of suicide attempt via OD. PMH: as per ER note ALLERGIES: as per EMR SUBSTANCE USE HISTORY: Cocaine: 6 mo ago and denies use since then. Denies all other substance use. FAMILY PSYCHIATRIC/SUBSTANCE USE HISTORY: Denies SOCIAL HISTORY: Patient was born and raised in [place]. He reports being and has 3 children. She completed school up to 11th grade. She is on disability and has a public guardian. Hx halfway for violating substance use order. MENTAL STATUS EXAM: General Appearance: Patient appears to be older than stated age is obese, alert, directable, and attempts to cooperate. Patient appears to have poor hygiene and grooming. Behavior: Patient is seated without any agitated behavior. Speech: Patient's speech is fluent and nonpressured. Mood/Affect: Patient reports their mood is depressed, affect is congruent and constricted. Suicidality/Homicidality: Patient denies having any homicidal ideation intent or plan. Denies current SI Perceptions: Patient denies any visual hallucinations and denies any auditory hallucinations Though content/process: There is no evidence of any delusional thought content and thought process some perseveration at times but otherwise linear. Capac Memory and concentration: AOX3, grossly intact for the purposes of this session. Judgment and insight: Poor, impulsive STRENGTHS/WEAKNESSES: strength is that patient is resilient. Weakness is that patient uses cocaine, has poor judgment and is impulsive INTELLECT: Below average IMPRESSIONS: Major depressive disorder with psychotic features and anxious distress Borderline personality disorder Cocaine use disorder History of PTSD PLAN: -Patient is admitted under voluntary status to [facility] for stabilization of psychiatric symptoms and safety. Patient has signed adult voluntary form and medication consent and is placed in patient's chart. -Medications : Resume Luvox 200 mg at bedtime tomorrow. Add Buspar 5 mg BID for anxiety. Continue Haldol DEC 50 mg IM q4w next due on 11/06/24 -Ativan and Haldol PRN for agitation/aggression -Patient was counselled on substance abuse and desired to cut back on use -Patient was informed of the risks, benefits and side effects of the medication and patient verbally consented to taking the medications. -Internal Medicine consult to perform medical evaluation and physical. -NRT -not needed as patient does not smoke -SW on board for discharge planning. Encourage patient to participate in groups to work on coping skills. 10/18/24 16:47 10/18/24 16:55
[2024-10-18 17:35] LABS: Glucose,Whole Blood 176 mg/dL (70-110)
[2024-10-18] MEDS: metFORMIN 500 MG TAB PO SCH (17:37)
[2024-10-18 19:56] LABS: Glucose,Whole Blood 189 mg/dL (70-110)
[2024-10-18] MEDS: LORazepam 1 MG TAB PO PRN (20:06)
[2024-10-18] MEDS: IBUPROFEN 600 MG TAB PO PRN (20:07)
[2024-10-18] MEDS: ATORVASTATIN 40 MG TAB PO SCH (20:08)
[2024-10-19] MEDS ORDERED: INSULIN GLARGINE (LANTUS) 100 UNIT/ML SYR SQ SCH (07:00)
[2024-10-19 07:09] LABS: Basophils # (A) 0.1 k/uL (0-0.2); Basophils % (A) 0 %; Eosinophils # (A) 0.7 k/uL (0-0.7); Eosinophils % (A) 6 %; HCT 42.6 % (34.0-46.0); HGB 13.4 gm/dL (11.4-16.0); Hypochromasia Slight; Lymphocytes # (A) 2.8 k/uL (1.0-4.8); Lymphocytes % (A) 22 %; MCH 26.8 pg (25.0-35.0); MCHC 31.4 g/dL (31.0-37.0); MCV 85.4 fL (80.0-100.0); Monocytes # (A) 0.5 k/uL (0-1.0); Monocytes % (A) 4 %; Neutrophils # (A) 8.2 k/uL (1.3-7.7); Neutrophils % (A) 66 %; Platelet Count 220 k/uL (150-450); RBC 4.99 m/uL (3.80-5.40); RDW 14.9 % (11.5-15.5); WBC 12.5 k/uL (3.8-10.6)
[2024-10-19] MEDS ORDERED: PANTOPRAZOLE 40 MG TABLET PO SCH (07:30)
[2024-10-19 07:48] LABS: ALT 31 U/L (4-34); AST 29 U/L (14-36); African American GFR (CKD) >90 (>60 ml/min/1.73 sqM); Albumin 3.7 g/dL (3.5-5.0); Alkaline Phosphatase 106 U/L (38-126); Anion Gap 8 mmol/L; Blood Urea Nitrogen 12 mg/dL (7-17); Calcium 8.9 mg/dL (8.4-10.2); Carbon Dioxide 28 mmol/L (22-30); Chloride 100 mmol/L (98-107); Glucose 164 mg/dL (74-99); Non-African American GFR(CKD) >90 (>60 ml/min/1.73 sqM); Potassium 4.8 mmol/L (3.5-5.1); Sodium 136 mmol/L (137-145); Total Bilirubin 0.4 mg/dL (0.2-1.3); Total Protein 6.7 g/dL (6.3-8.2)
[2024-10-19 07:54] LABS: Glucose,Whole Blood 162 mg/dL (70-110)
[2024-10-19 09:11] VITALS: RESP 16
[2024-10-19 12:30] LABS: Glucose,Whole Blood 198 mg/dL (70-110)
[2024-10-19] MEDS: ACETAMINOPHEN TAB 325 MG TAB PO PRN (16:45)
[2024-10-19 17:36] LABS: Glucose,Whole Blood 191 mg/dL (70-110)
--- NOTE | 2024-10-19 18:18 | P.PN ---
Progress Note - Text Progress Note Date: 10/19/24 Interval History: Patient was seen via HIPAA-compliant Zoom and patient consented. Patient was seen agreeable to speak with communications writer in the office. Mood is "good." She says anxiety has improved significantly with Buspar and would like to go home. She reports good appetite and good energy. She has been participating in groups. She denied all other concerns. No acute overnight events. At this time patient denies any suicidal or homicidal ideations, intent or plan. Patient denies any auditory, visual hallucinations and denies any paranoia or delusions. Patient denies any side effects from the medications and has been compliant with meds. Mental Status Exam: General Appearance: Patient appears to be stated age is alert, directable, and cooperative. Behavior: Patient is calmly seated without any agitated behavior. Speech: Patient's speech is fluent and nonpressured. Mood/Affect: Mood is "good", affect is congruent and smiling appropriately. Suicidality/Homicidality: Patient denies having any suicidal or homicidal ideation intent or plan. Perceptions: Patient denies any visual hallucinations and denies any auditory hallucinations Though content/process: There is no evidence of any delusional thought content and thought process is linear and goal-directed. [place] Memory and concentration: AOX3, grossly intact for the purposes of this session Judgment and insight: Improving mildly although chronically poor Assessment Major depressive disorder with psychotic features and anxious distress Borderline personality disorder Cocaine use disorder History of PTSD Plan: -Patient is admitted under voluntary status to [facility] for stabilization of psychiatric symptoms and safety. Patient has signed adult voluntary form and medication consent and is placed in patient's chart. -Medications : Continue current PO meds. Continue Haldol DEC 50 mg IM q4w next due on 11/06/24 -Ativan and Haldol PRN for agitation/aggression -Patient was counselled on substance abuse and desired to cut back on use -Patient was informed of the risks, benefits and side effects of the medication and patient verbally consented to taking the medications. -Internal Medicine consult to perform medical evaluation and physical. -NRT -not needed as patient does not smoke -SW on board for discharge planning. Encourage patient to participate in groups to work on coping skills. If continues to improve clinically, might consider discharge tomorrow
[2024-10-19 20:11] LABS: Glucose,Whole Blood 224 mg/dL (70-110)
[2024-10-19 22:29] LABS: Glucose,Whole Blood 201 mg/dL (70-110)
[2024-10-19 23:13] VITALS: PULSE 81
[2024-10-20 07:43] LABS: Glucose,Whole Blood 174 mg/dL (70-110)
[2024-10-20 09:00] VITALS: BP 114/67; TEMP 96.4
--- NOTE | 2024-10-20 11:39 | P.DS ---
Providers Date of admission: 10/18/24 04:10 Expected date of discharge: 10/20/24 Attending physician: Jaqui Murillo MD Consults: 10/18/24 04:15 Consult Physician Routine Consulting Provider: Luke Garza Consult Reason/Comments: Medical managment Do you want consulting provider notified?: Yes, Notify in am Primary care physician: Evelyn Groveumar - Discharge Diagnosis(es) (1) Suicidal ideation Current Visit: Yes Status: Acute Priority: High (2) Anxiety Current Visit: Yes Status: Chronic Priority: Medium (3) Borderline personality disorder Current Visit: No Status: Chronic Priority: High (4) Schizoaffective disorder, depressive type Current Visit: No Status: Chronic Priority: High Plan - Discharge Summary New Discharge Prescriptions: No Action Naltrexone HCl [Revia] 50 mg PO DAILY 30 Days #30 tab fluvoxaMINE [Luvox] 200 mg PO HS 30 Days #120 tab Nystatin 100,000 Unit/gm Powd [Mycostatin Powder] 1 applic TOPICAL BID Insulin Glargine,Hum.rec.anlog [Lantus Solostar Pen] 20 units SQ DAILY Dapagliflozin Propanediol [Farxiga] 10 mg PO DAILY Mirtazapine 30 mg PO HS Aspirin EC [Ecotrin Low Dose] 81 mg PO DAILY Trigels-F Forte 1 cap PO DAILY Dulaglutide [Trulicity] 1.5 mg SQ Q7D Atorvastatin [Lipitor] 40 mg PO HS metFORMIN HCL [Glucophage] 1,000 mg PO BID-W/MEALS #120 tab Omeprazole 20 mg PO DAILY #30 tab Albuterol Sulfate [Ventolin HFA] 2 puff INHALATION RT-Q6H PRN PRN Reason: Shortness Of Breath Haloperidol Decanoate [Haldol D] 50 mg IM Q28D lisinopriL [Zestril] 2.5 mg PO DAILY Spironolactone [Aldactone] 25 mg PO DAILY Insulin Aspart [Insulin Aspart Flexpen] See Protocol SQ AC-TID PRN PRN Reason: high blood sugar Discharge Medication List Naltrexone HCl [Revia] 50 mg PO DAILY 30 Days #30 tab 04/25/24 [Rx] fluvoxaMINE [Luvox] 200 mg PO HS 30 Days #120 tab 06/20/24 [Rx] metFORMIN HCL [Glucophage] 1,000 mg PO BID-W/MEALS #120 tab 1119/24 [Rx] Omeprazole 20 mg PO DAILY #30 tab 06/23/24 [Rx] Albuterol Sulfate [Ventolin HFA] 2 puff INHALATION RT-Q6H PRN 10/18/24 [History] Aspirin EC [Ecotrin Low Dose] 81 mg PO DAILY 10/18/24 [History] Atorvastatin [Lipitor] 40 mg PO HS 10/18/24 [History] Dapagliflozin Propanediol [Farxiga] 10 mg PO DAILY 10/18/24 [History] Dulaglutide [Trulicity] 1.5 mg SQ Q7D 10/18/24 [History] Haloperidol Decanoate [Haldol D] 50 mg IM Q28D 10/18/24 [History] Insulin Aspart [Insulin Aspart Flexpen] See Protocol SQ AC-TID PRN 10/18/24 [History] Insulin Glargine,Hum.rec.anlog [Lantus Solostar Pen] 20 units SQ DAILY 10/18/24 [History] Mirtazapine 30 mg PO HS 10/18/24 [History] Nystatin 100,000 Unit/gm Powd [Mycostatin Powder] 1 applic TOPICAL BID 10/18/24 [History] Spironolactone [Aldactone] 25 mg PO DAILY 10/18/24 [History] Trigels-F Forte 1 cap PO DAILY 10/18/24 [History] lisinopriL [Zestril] 2.5 mg PO DAILY 10/18/24 [History] Follow up Appointment(s)/Referral(s): [facility] [Outside] - 11/02/24 3:00 pm (11/02/2024 2:30PM - 3:00PM CLYDE ROSAS ) Evelyn Blas MD [Primary Care Provider] - 1-2 days Activity/Diet/Wound Care/Special Instructions: [facility] Discharge Info Avoid the use of street drugs and alcohol. Take all medications as prescribed. When you are in need of refills on your medications, please contact your outpatient medical provider and/or outpatient psychiatrist. Please go to your scheduled outpatient appointments for aftercare treatment. If symptoms return or become worse, call the crisis line at or and/or visit the nearest emergency room for assistance. National Suicide and Crisis Lifeline - call or text 216
== END 2024-10-20 12:47 | disposition home or self-care (01) | DRG 761 ==
LOC: EC 22:47 → 3MHU 10-18 04:10
PROVIDERS: ADMIT Psychiatry & Neurology Psychiatry; ATTEND Psychiatry & Neurology Psychiatry
DX: F25.1 Schizoaffective disorder, depressive type (principal); D57.3 Sickle-cell trait; E11.9 Type 2 diabetes mellitus without complications; F14.10 Cocaine abuse, uncomplicated; F17.200 Nicotine dependence, unspecified, uncomplicated; F31.9 Bipolar disorder, unspecified; F41.9 Anxiety disorder, unspecified; F43.10 Post-traumatic stress disorder, unspecified; F60.3 Borderline personality disorder; G40.909 Epilepsy, unspecified, not intractable, without status epilepticus; I11.0 Hypertensive heart disease with heart failure; I50.9 Heart failure, unspecified; J44.89 Other specified chronic obstructive pulmonary disease; K51.90 Ulcerative colitis, unspecified, without complications; K74.60 Unspecified cirrhosis of liver; M41.9 Scoliosis, unspecified; L40.9 Psoriasis, unspecified; M79.7 Fibromyalgia; R45.851 Suicidal ideations; G43.909 Migraine, unspecified, not intractable, without status migrainosus; M54.2 Cervicalgia; G89.29 Other chronic pain; M10.9 Gout, unspecified; M19.90 Unspecified osteoarthritis, unspecified site; K21.9 Gastro-esophageal reflux disease without esophagitis; F14.11 Cocaine abuse, in remission; Z60.4 Social exclusion and rejection; Z79.4 Long term (current) use of insulin; Z79.82 Long term (current) use of aspirin; Z79.84 Long term (current) use of oral hypoglycemic drugs; Z79.899 Other long term (current) drug therapy; Z86.32 Personal history of gestational diabetes; Z87.01 Personal history of pneumonia (recurrent); Z91.51 Personal history of suicidal behavior; Z90.721 Acquired absence of ovaries, unilateral; Z79.85 Long-term (current) use of injectable non-insulin antidiabetic drugs; Z71.51 Drug abuse counseling and surveillance of drug abuser; Z71.89 Other specified counseling; Z88.0 Allergy status to penicillin; Z88.8 Allergy status to other drugs, medicaments and biological substances; Z91.041 Radiographic dye allergy status
CPT/HCPCS: 80053; 80306; 82075; 83036; 84443; 85025; 87635; 99285

== ENCOUNTER 2024-10-23 19:37 | Emergency (ER) | payer OTHER ==
[2024-10-23 19:48] VITALS: RESP 18; TEMP 99.1
--- NOTE | 2024-10-23 19:54 | ED ---
Nausea/Vomiting/Diarrhea HPI - General Source: patient Mode of arrival: ambulatory <James Cedillo - Last Filed: 10/23/24 19:54> <Nkechi De Dios - Last Filed: 10/23/24 23:06> - General Chief complaint: Nausea/Vomiting/Diarrhea Stated complaint: Nausea,Vomiting Time Seen by Provider: 10/23/24 19:54 - History of Present Illness Initial comments: Quick note: 44-year-old female presenting with chief complaint of nausea and vomiting. Ongoing for the last 2 days. She is having some pain across the bilateral lower quadrants. No diarrhea. No fever. (James Cedillo) 44-year-old female history of diabetes presents emergency department chief complaint of nausea and vomiting over the past 2 days. Patient states that she is experiencing mild intermittent abdominal pain over the bilateral lower quadrants of her abdomen. She also states that she is constipated with the last bowel movement being 4 days ago. Normally patient takes MiraLAX however is requesting a prescription for this as she has not taken over the past 2 days. States she attempted to take apple juice to alleviate her constipation. Denies diarrhea, fevers, chills, hematemesis, urinary complaints. Denies chest pain or difficulty breathing. (Nkechi De Dios) - Related Data Home Medications Medication Instructions Recorded Confirmed Aspirin EC [Ecotrin Low Dose] 81 mg PO DAILY 10/18/24 10/18/24 Atorvastatin [Lipitor] 40 mg PO HS 10/18/24 10/18/24 Dapagliflozin Propanediol [Farxiga] 10 mg PO DAILY 10/18/24 10/18/24 Dulaglutide [Trulicity] 1.5 mg SQ Q7D 10/18/24 10/18/24 Insulin Glargine,Hum.rec.anlog 20 units SQ DAILY 10/18/24 10/18/24 [Lantus Solostar Pen] Spironolactone [Aldactone] 25 mg PO DAILY 10/18/24 10/18/24 lisinopriL [Zestril] 2.5 mg PO DAILY 10/18/24 10/18/24 Previous Rx's Medication Instructions Recorded fluvoxaMINE [Luvox] 200 mg PO HS 30 Days #120 tab 06/20/24 metFORMIN HCL [Glucophage] 1,000 mg PO BID-W/MEALS #120 tab 06/20/24 Omeprazole 20 mg PO DAILY #30 tab 06/23/24 Albuterol Inhaler [Ventolin Hfa 2 puff INHALATION RT-Q6H PRN each 10/20/24 Inhaler] Haloperidol Decanoate [Haldol D] 50 mg IM Q28D #1 each 10/20/24 INSULIN LISPRO (HumaLOG) [HumaLOG] 0 unit SQ ACHS each 10/20/24 busPIRone HCl [Buspar] 5 mg PO BID 30 Days #60 tab 10/20/24 Allergies Allergy/AdvReac Type Severity Reaction Status Date / Time Iodinated Contrast Media Allergy Anaphylaxis Verified 10/23/24 19:48 [Iodinated Contrast Media - IV Dye] lacosamide [From Vimpat] Allergy Anaphylaxis Verified 10/23/24 19:48 peanut Allergy Anaphylaxis Verified 10/23/24 19:48 Penicillins Allergy Anaphylaxis Verified 10/23/24 19:48 shellfish derived Allergy swelling Verified 10/23/24 19:48 all over body cephalexin monohydrate AdvReac Rash, Verified 10/23/24 19:48 [From Keflex] Nausea, Vomiting & Diarrhea trazodone AdvReac bp Verified 10/23/24 19:48 issues/dizziness Review of Systems ROS Other: All systems not noted in ROS Statement are negative. <James Cedillo - Last Filed: 10/23/24 19:54> ROS Other: All systems not noted in ROS Statement are negative. <Nkechi De Dios - Last Filed: 10/23/24 23:06> ROS Statement: Those systems with pertinent positive or pertinent negative responses have been documented in the HPI. Past Medical History Past Medical History: Asthma, Heart Failure, COPD, Diabetes Mellitus, Fibromyalgia, GERD/Reflux, GI Bleed, Hypertension, Liver Disease, Osteoarthritis (OA), Pneumonia, Seizure Disorder, Skin Disorder Additional Past Medical History / Comment(s): Bronchitis, gestational diabetes, seizures with last one 01/2024, sickle cell trait, liver cirrhosis, anemia, chrons, IBS, ulcerative colitis, lowr GI bleed, hemorrhoids, constipation, psoriasis, migraines, chronic low back and cervical pain, scoliosis, arhtritis in multiple joints, gout bilateral feet, History of Any Multi-Drug Resistant Organisms: None Reported Past Surgical History: Cholecystectomy, Orthopedic Surgery Additional Past Surgical History / Comment(s): L oophorectomy d/t cyst, D&C, colonoscopy, L carpal tunnel release, Past Anesthesia/Blood Transfusion Reactions: Motion Sickness, Postoperative Nausea & Vomiting (PONV) Past Psychological History: Anxiety, Bipolar, Depression, Schizophrenia Smoking Status: Former smoker Past Alcohol Use History: None Reported Past Drug Use History: Cocaine - Past Family History Mother History Unknown: Yes Family Medical History: Cancer Additional Family Medical History / Comment(s): Mother had breast cancer and metnal illness She is living. Father Family Medical History: Cancer Additional Family Medical History / Comment(s): Father is . He had agent orange exposure. He had liver cancer, bowel to brain cancer. <James Cedillo - Last Filed: 10/23/24 19:54> General Exam <James Cedillo - Last Filed: 10/23/24 19:54> General appearance: alert, in no apparent distress Respiratory exam: Present: normal lung sounds bilaterally. Absent: respiratory distress, wheezes, rales, rhonchi, stridor Cardiovascular Exam: Present: regular rate, normal rhythm, normal heart sounds. Absent: systolic murmur, diastolic murmur, rubs, gallop, clicks GI/Abdominal exam: Present: soft, normal bowel sounds. Absent: distended, tenderness, guarding, rebound, rigid Extremities exam: Present: normal inspection, full ROM, normal capillary refill. Absent: tenderness, pedal edema, joint swelling, calf tenderness Back exam: Present: normal inspection. Absent: CVA tenderness (R), CVA tenderness (L) Skin exam: Present: warm, dry, intact, normal color. Absent: rash <Nkechi De Dios - Last Filed: 10/23/24 23:06> - General Exam Comments Initial Comments: Visual Physical Exam Vital signs reviewed General: Well-appearing, nontoxic, no acute distress. Head: Normocephalic, atraumatic Eyes: PERRLA, EOMI ENT: Airway patent Chest: Nonlabored breathing Skin: No visual rash, normal skin tone Neuro: Alert and oriented 3 Musculoskeletal: No gross abnormalities (James Cedillo) Course Vital Signs 10/23/24 10/23/24 10/23/24 19:45 20:19 22:44 Temperature 99.1 F Pulse Rate 81 80 68 Respiratory 18 18 18 Rate Blood Pressure 128/76 109/65 163/78 O2 Sat by Pulse 96 95 96 Oximetry Medical Decision Making <James Cedillo - Last Filed: 10/23/24 19:54> - Lab Data Result diagrams: 10/23/24 20:40 10/23/24 20:40 <Nkechi De Dios - Last Filed: 10/23/24 23:06> - Medical Decision Making I performed the quick note portion of this visit, electronically signed James Cedillo PA-C (James Cedillo) Was pt. sent in by a medical professional or institution (, PA, COMMERCIAL ENERGY AUDITOR, urgent care, hospital, or longterm...) When possible be specific @ -No Did you speak to anyone other than the patient for history (EMS, parent, family, police, friend...)? What history was obtained from this source @ -No Did you review nursing and triage notes (agree or disagree)? Why? @ -I reviewed and agree with nursing and triage notes Were old charts reviewed (outside hosp., previous admission, EMS record, old EKG, old radiological studies, urgent care reports/EKG's, longterm records)? Report findings @ -No old charts were reviewed Differential Diagnosis (chest pain, altered mental status, abdominal pain women, abdominal pain men, vaginal bleeding, weakness, fever, dyspnea, syncope, headache, dizziness, GI bleed, back pain, seizure, CVA, palpatations, mental health, musculoskeletal)? @ -Differential Abdominal Pain Women: Appendicitis, Cholecystitis, diverticulosis, ischemic bowel, pancreatitis, hepatitis, UTI, gastroenteritis, AAA, incarcerated hernia, bowel obstruction, constipation, inflammatory bowel, hepatitis, peptic ulcer disease, splenic infarction, perforated viscus, vulvitis, ovarian torsion, PID, kidney stone, placenta abruption, this is not meant to be an all-inclusive list EKG interpreted by me (3pts min.). @ -none X-rays interpreted by me (1pt min.). @ -X-ray KUB completed with nonspecific bowel gas pattern no evidence of acute process CT interpreted by me (1pt min.). @ -None done U/S interpreted by me (1pt. min.). @ -None done What testing was considered but not performed or refused? (CT, X-rays, U/S, labs)? Why? @ -None What meds were considered but not given or refused? Why? @ -None Did you discuss the management of the patient with other professionals (professionals i.e. , PA, COMMERCIAL ENERGY AUDITOR, lab, RT, psych nurse, web content & social media manager, director of provider relations, teacher, uniform patrol police officer, top case assembler)? Give summary @ -No Was smoking cessation discussed for >3mins.? @ -No Was critical care preformed (if so, how long)? @ -No Were there social determinants of health that impacted care today? How? (Homelessness, low income, unemployed, alcoholism, drug addiction, t ransportation, low edu. Level, literacy, decrease access to med. care, half-way, rehab)? @ -No Was there de-escalation of care discussed even if they declined (Discuss DNR or withdrawal of care, Hospice)? DNR status @ -No What co-morbidities impacted this encounter? (DM, HTN, Smoking, COPD, CAD, Cancer, CVA, ARF, Chemo, Hep., AIDS, mental health diagnosis, sleep apnea, morbid obesity)? @ -None Was patient admitted / discharged? Hospital course, mention meds given and route, prescriptions, significant lab abnormalities, going to OR and other pertinent info. @ -Discharge. 44-year-old female presenting for nausea and vomiting. Patient was originally evaluated as a quick note where lab testing was ordered. On my evaluation the patient she is resting comfortably in no signs acute distress. Her initial vitals are stable. She is provided with IV fluids and antiemetics. Lab testing remarkable for leukocytosis 17.1 neutrophils 13.4 likely reactive secondary to emesis. CMP unremarkable. Urinalysis remarkable for 4+ glucose consistent with patient's history of diabetes, no signs of ketones. Viral testing is negative. Abdominal x-ray no acute process. On reevaluation patient is requesting something to drink and eat stating that she is feeling better. She is provided with magnesium citrate today for constipation and recommend she place [id number] MiraLAX and follow clear liquid diet over the next 24 hours. case discussed with Dr[address] Mirza Undiagnosed new problem with uncertain prognosis? @ -No Drug Therapy requiring intensive monitoring for toxicity (Heparin, Nitro, Insulin, Cardizem)? @ -No Were any procedures done? @ -No Diagnosis/symptom? @ -nausea and vomiting, constipation Acute, or Chronic, or Acute on Chronic? @ -Acute Uncomplicated (without systemic symptoms) or Complicated (systemic symptoms)? @ -Uncomplicated Side effects of treatment? @ -No Exacerbation, Progression, or Severe Exacerbation? @ -No Poses a threat to life or bodily function? How? (Chest pain, [place], [place], pneumonia, PE, COPD, DKA, ARF, appy, cholecystitis, CVA, Diverticulitis, Homicidal, Suicidal, threat to staff... and all critical care pts) @ -No (Nkechi De Dios) - Lab Data Lab Results 10/23/24 10/23/24 10/23/24 Range/Units 20:40 20:40 20:40 WBC 17.1 H (3.8-10.6) k/uL RBC 5.07 (3.80-5.40) m/uL Hgb 14.0 (11.4-16.0) gm/dL Hct 43.2 (34.0-46.0) % MCV 85.3 (80.0-100.0) fL MCH 27.6 (25.0-35.0) pg MCHC 32.4 (31.0-37.0) g/dL RDW 15.1 (11.5-15.5) % Plt Count 218 (150-450) k/uL MPV 7.3 Neutrophils % 79 % Lymphocytes % 14 % Monocytes % 3 % Eosinophils % 4 % Basophils % 0 % Neutrophils # 13.4 H (1.3-7.7) k/uL Lymphocytes # 2.3 (1.0-4.8) k/uL Monocytes # 0.6 (0-1.0) k/uL Eosinophils # 0.6 (0-0.7) k/uL Basophils # 0.0 (0-0.2) k/uL Sodium 133 L (137-145) mmol/L Potassium 4.4 (3.5-5.1) mmol/L Chloride 96 L (98-107) mmol/L Carbon Dioxide 26 (22-30) mmol/L Anion Gap 11 mmol/L BUN 14 (7-17) mg/dL Creatinine 0.70 (0.52-1.04) mg/dL Est GFR (CKD-EPI)AfAm >90 (>60 ml/min/1.73 sqM) Est GFR (CKD-EPI)NonAf >90 (>60 ml/min/1.73 sqM) Glucose 183 H (74-99) mg/dL Calcium 9.5 (8.4-10.2) mg/dL Total Bilirubin 0.3 (0.2-1.3) mg/dL AST 25 (14-36) U/L ALT 27 (4-34) U/L Alkaline Phosphatase 108 (38-126) U/L Total Protein 7.2 (6.3-8.2) g/dL Albumin 4.1 (3.5-5.0) g/dL Amylase 53 (30-110) U/L Lipase 133 (23-300) U/L Urine Color Urine Appearance (Clear) Urine pH (5.0-8.0) Ur Specific Denio (1.001-1.035) Urine Protein (Negative) Urine Glucose (UA) (Negative) Urine Ketones (Negative) Urine Blood (Negative) Urine Nitrite (Negative) Urine Bilirubin (Negative) Urine Urobilinogen (<2.0) mg/dL Ur Leukocyte Esterase (Negative) Urine HCG, Qual (Not Detectd) Influenza Type A (PCR) Not Detected (Not Detectd) Influenza Type B (PCR) Not Detected (Not Detectd) RSV (PCR) Not Detected (Not Detectd) SARS-CoV-2 (PCR) Not Detected (Not Detectd) 10/23/24 10/23/24 Range/Units 20:45 20:45 WBC (3.8-10.6) k/uL RBC (3.80-5.40) m/uL Hgb (11.4-16.0) gm/dL Hct (34.0-46.0) % MCV (80.0-100.0) fL MCH (25.0-35.0) pg MCHC (31.0-37.0) g/dL RDW (11.5-15.5) % Plt Count (150-450) k/uL MPV Neutrophils % % Lymphocytes % % Monocytes % % Eosinophils % % Basophils % % Neutrophils # (1.3-7.7) k/uL Lymphocytes # (1.0-4.8) k/uL Monocytes # (0-1.0) k/uL Eosinophils # (0-0.7) k/uL Basophils # (0-0.2) k/uL Sodium (137-145) mmol/L Potassium (3.5-5.1) mmol/L Chloride (98-107) mmol/L Carbon Dioxide (22-30) mmol/L Anion Gap mmol/L BUN (7-17) mg/dL Creatinine (0.52-1.04) mg/dL Est GFR (CKD-EPI)AfAm (>60 ml/min/1.73 sqM) Est GFR (CKD-EPI)NonAf (>60 ml/min/1.73 sqM) Glucose (74-99) mg/dL Calcium (8.4-10.2) mg/dL Total Bilirubin (0.2-1.3) mg/dL AST (14-36) U/L ALT (4-34) U/L Alkaline Phosphatase (38-126) U/L Total Protein (6.3-8.2) g/dL Albumin (3.5-5.0) g/dL Amylase (30-110) U/L Lipase (23-300) U/L Urine Color Colorless Urine Appearance Clear (Clear) Urine pH 6.5 (5.0-8.0) Ur Specific Denio 1.025 (1.001-1.035) Urine Protein Negative (Negative) Urine Glucose (UA) 4+ H (Negative) Urine Ketones Negative (Negative) Urine Blood Negative (Negative) Urine Nitrite Negative (Negative) Urine Bilirubin Negative (Negative) Urine Urobilinogen <2.0 (<2.0) mg/dL Ur Leukocyte Esterase Negative (Negative) Urine HCG, Qual Not Detected (Not Detectd) Influenza Type A (PCR) (Not Detectd) Influenza Type B (PCR) (Not Detectd) RSV (PCR) (Not Detectd) SARS-CoV-2 (PCR) (Not Detectd) Disposition <James Cedillo - Last Filed: 10/23/24 19:54> Is patient prescribed a controlled substance at d/c from ED?: No Time of Disposition: 22:06 <Nkechi De Dios - Last Filed: 10/23/24 23:06> Clinical Impression: Constipation, Nausea and vomiting Disposition: HOME SELF-CARE Condition: Good Instructions (If sedation given, give patient instructions): Constipation (ED), Acute Nausea and Vomiting (ED) Additional Instructions: Please return to the Emergency Department if symptoms worsen or any other concerns. Referrals: Evelyn Blas MD [Primary Care Provider] - 1-2 days
[2024-10-23 20:46] LABS: Basophils % (A) 0 %; Eosinophils # (A) 0.6 k/uL (0-0.7); Eosinophils % (A) 4 %; HCT 43.2 % (34.0-46.0); Lymphocytes # (A) 2.3 k/uL (1.0-4.8); Lymphocytes % (A) 14 %; MCH 27.6 pg (25.0-35.0); MCHC 32.4 g/dL (31.0-37.0); MCV 85.3 fL (80.0-100.0); Mean Platelet Volume 7.3; Monocytes # (A) 0.6 k/uL (0-1.0); Monocytes % (A) 3 %; Neutrophils # (A) 13.4 k/uL (1.3-7.7); Neutrophils % (A) 79 %; Platelet Count 218 k/uL (150-450); RBC 5.07 m/uL (3.80-5.40); RDW 15.1 % (11.5-15.5); WBC 17.1 k/uL (3.8-10.6)
[2024-10-23 20:52] LABS: Appearance,Urine Clear (Clear); Bilirubin,Urine Negative (Negative); Blood,Urine Negative (Negative); Color,Urine Colorless; Glucose,Urine (UA) 4+ (Negative); Ketones,Urine Negative (Negative); Leukocyte Esterase,Urine Negative (Negative); Nitrite,Urine Negative (Negative); PH, Urine 6.5 (5.0-8.0); Protein,Urine Negative (Negative); Specific Gravity,Urine 1.025 (1.001-1.035); Urobilinogen,Urine <2.0 mg/dL (<2.0)
[2024-10-23 21:05] LABS: ALT 27 U/L (4-34); AST 25 U/L (14-36); African American GFR (CKD) >90 (>60 ml/min/1.73 sqM); Albumin 4.1 g/dL (3.5-5.0); Alkaline Phosphatase 108 U/L (38-126); Amylase 53 U/L (30-110); Anion Gap 11 mmol/L; Blood Urea Nitrogen 14 mg/dL (7-17); Calcium 9.5 mg/dL (8.4-10.2); Carbon Dioxide 26 mmol/L (22-30); Chloride 96 mmol/L (98-107); Glucose 183 mg/dL (74-99); Lipase 133 U/L (23-300); Non-African American GFR(CKD) >90 (>60 ml/min/1.73 sqM); Potassium 4.4 mmol/L (3.5-5.1); Sodium 133 mmol/L (137-145); Total Bilirubin 0.3 mg/dL (0.2-1.3); Total Protein 7.2 g/dL (6.3-8.2)
[2024-10-23] MEDS: SODIUM CHLORIDE 0.9% 1,000 ML IV STA (21:10)
[2024-10-23] MEDS: ONDANSETRON 4 MG/2 ML VIAL IVP STA (21:10)
[2024-10-23 21:39] LABS: Influenza A Not Detected (Not Detectd); Influenza B Not Detected (Not Detectd); RSV Not Detected (Not Detectd)
--- NOTE | 2024-10-23 21:46 | XR ---
EXAMINATION TYPE: XR KUB DATE OF EXAM: 10/23/2024 9:20 PM COMPARISON: 07/15/2020. CLINICAL INDICATION: Female, 44 years old with history of constipation, N/V; [facility] TECHNIQUE: One radiographic view of the abdomen was obtained. FINDINGS: The bowel gas pattern is nonspecific without dilated loops of small or large bowel. . Fecal material and gas are demonstrated throughout the colon and rectum. There is no evidence for organome elba or pneumoperitoneum. No acute osseous process. No abnormal calcifications are present. Vertebr al quadrant correlate cystectomy clips. Right pelvic probable tubal ligation clips. IMPRESSION: Nonspecific bowel gas pattern without radiographic evidence for acute process. [facility], , 10/23/2024 9:44 PM
[2024-10-23] MEDS: MAGNESIUM CITRATE 296 ML BOTTLE PO ONE (22:42)
[2024-10-23 22:47] VITALS: BP 163/78; PULSE 68
== END 2024-10-23 22:47 | disposition home or self-care (01) ==
LOC: EC 19:37
DX: K59.00 Constipation, unspecified (principal); R11.2 Nausea with vomiting, unspecified; Z87.891 Personal history of nicotine dependence; Z88.0 Allergy status to penicillin; Z88.1 Allergy status to other antibiotic agents; Z91.041 Radiographic dye allergy status; Z91.013 Allergy to seafood; Z91.010 Allergy to peanuts; Z88.8 Allergy status to other drugs, medicaments and biological substances; Z11.52 Encounter for screening for COVID-19
CPT/HCPCS: 36415; 80053; 82150; 83690; 85025; 81003; 81025; 87636; 74018; 99284; 96374; 96361 ×2; J2405

== ENCOUNTER 2024-10-27 18:01 | Emergency (ER) | payer OTHER ==
[2024-10-27 18:21] VITALS: TEMP 98.3
--- NOTE | 2024-10-27 18:21 | ED ---
Chest Pain HPI - General Stated Complaint: chest pain Time Seen by Provider: 10/27/24 18:13 Source: RN notes reviewed, old records reviewed Mode of arrival: ambulatory Limitations: no limitations - History of Present Illness Initial Comments: This is a 44 female well-known to the emergency department. Patient presents for chest pain today recent evaluation ER visit yesterday for chest pain and history of psychiatric illness. Patient comes in for chest pain today chest pain and shortness of breath with no new complaints. No recent fevers cough or congestion. No history of heart disease. Patient does have prior inpatient hospital admissions for cardiac observation MD Complaint: chest pain -: days(s) Onset: during rest, during exertion, awoke with symptoms Pain Location: substernal Pain Radiation: none Severity: mild Severity scale (1-10): 2 Quality: tightness Consistency: intermittent Improves With: nothing Worsens With: nothing Other Symptoms: palpitations Treatments Prior to Arrival: none - Related Data Home Medications Medication Instructions Recorded Confirmed Aspirin EC [Ecotrin Low Dose] 81 mg PO DAILY 10/18/24 10/18/24 Atorvastatin [Lipitor] 40 mg PO HS 10/18/24 10/18/24 Dapagliflozin Propanediol [Farxiga] 10 mg PO DAILY 10/18/24 10/18/24 Dulaglutide [Trulicity] 1.5 mg SQ Q7D 10/18/24 10/18/24 Insulin Glargine,Hum.rec.anlog 20 units SQ DAILY 10/18/24 10/18/24 [Lantus Solostar Pen] Spironolactone [Aldactone] 25 mg PO DAILY 10/18/24 10/18/24 lisinopriL [Zestril] 2.5 mg PO DAILY 10/18/24 10/18/24 Previous Rx's Medication Instructions Recorded fluvoxaMINE [Luvox] 200 mg PO HS 30 Days #120 tab 06/20/24 metFORMIN HCL [Glucophage] 1,000 mg PO BID-W/MEALS #120 tab 06/20/24 Omeprazole 20 mg PO DAILY #30 tab 06/23/24 Albuterol Inhaler [Ventolin Hfa 2 puff INHALATION RT-Q6H PRN each 10/20/24 Inhaler] Haloperidol Decanoate [Haldol D] 50 mg IM Q28D #1 each 10/20/24 INSULIN LISPRO (HumaLOG) [HumaLOG] 0 unit SQ ACHS each 10/20/24 busPIRone HCl [Buspar] 5 mg PO BID 30 Days #60 tab 10/20/24 Allergies Allergy/AdvReac Type Severity Reaction Status Date / Time Iodinated Contrast Media Allergy Anaphylaxis Verified 10/27/24 18:21 [Iodinated Contrast Media - IV Dye] lacosamide [From Vimpat] Allergy Anaphylaxis Verified 10/27/24 18:21 peanut Allergy Anaphylaxis Verified 10/27/24 18:21 Penicillins Allergy Anaphylaxis Verified 10/27/24 18:21 shellfish derived Allergy swelling Verified 10/27/24 18:21 all over body cephalexin monohydrate AdvReac Rash, Verified 10/27/24 18:21 [From Keflex] Nausea, Vomiting & Diarrhea trazodone AdvReac bp Verified 10/27/24 18:21 issues/dizziness Review of Systems ROS Statement: Those systems with pertinent positive or pertinent negative responses have been documented in the HPI. ROS Other: All systems not noted in ROS Statement are negative. EKG Findings - EKG Comments: EKG Findings:: EKG is sinus 65 DE 168 QRS 169 QTc 460 - EKG Results: EKG: interpreted by ERMD Past Medical History Past Medical History: Asthma, Heart Failure, COPD, Diabetes Mellitus, Fibromyalgia, GERD/Reflux, GI Bleed, Hypertension, Liver Disease, Osteoarthritis (OA), Pneumonia, Seizure Disorder, Skin Disorder Additional Past Medical History / Comment(s): Bronchitis, gestational diabetes, seizures with last one 01/2024, sickle cell trait, liver cirrhosis, anemia, chrons, IBS, ulcerative colitis, lowr GI bleed, hemorrhoids, constipation, psoriasis, migraines, chronic low back and cervical pain, scoliosis, arhtritis in multiple joints, gout bilateral feet, History of Any Multi-Drug Resistant Organisms: None Reported Past Surgical History: Cholecystectomy, Orthopedic Surgery Additional Past Surgical History / Comment(s): L oophorectomy d/t cyst, D&C, colonoscopy, L carpal tunnel release, Past Anesthesia/Blood Transfusion Reactions: Motion Sickness, Postoperative Nausea & Vomiting (PONV) Past Psychological History: Anxiety, Bipolar, Depression, Schizophrenia Smoking Status: Former smoker Past Alcohol Use History: None Reported Past Drug Use History: Cocaine - Past Family History Mother History Unknown: Yes Family Medical History: Cancer Additional Family Medical History / Comment(s): Mother had breast cancer and metnal illness She is living. Father Family Medical History: Cancer Additional Family Medical History / Comment(s): Father is . He had agent orange exposure. He had liver cancer, bowel to brain cancer. General Exam General appearance: alert, in no apparent distress Head exam: Present: atraumatic, normocephalic, normal inspection Eye exam: Present: normal appearance, PERRL, EOMI. Absent: scleral icterus, conjunctival injection, periorbital swelling ENT exam: Present: normal exam, mucous membranes moist Neck exam: Present: normal inspection. Absent: tenderness, meningismus, lymphadenopathy Respiratory exam: Present: normal lung sounds bilaterally. Absent: respiratory distress, wheezes, rales, rhonchi, stridor Cardiovascular Exam: Present: regular rate, normal rhythm, normal heart sounds. Absent: systolic murmur, diastolic murmur, rubs, gallop, clicks GI/Abdominal exam: Present: soft, normal bowel sounds. Absent: distended, tenderness, guarding, rebound, rigid Extremities exam: Present: normal inspection, full ROM, normal capillary refill. Absent: tenderness, pedal edema, joint swelling, calf tenderness Back exam: Present: normal inspection Neurological exam: Present: alert, oriented X3, CN II-XII intact Psychiatric exam: Present: normal affect, normal mood Skin exam: Present: warm, dry, intact, normal color. Absent: rash Course Vital Signs 10/27/24 10/27/24 18:16 19:59 Temperature 98.3 F Pulse Rate 66 60 Respiratory 19 18 Rate Blood Pressure 118/57 128/53 O2 Sat by Pulse 97 96 Oximetry - Reevaluation(s) Reevaluation #1: 10/27/24 19:41 Records reviewed EKG is unchanged from prior Multiple cardiac admissions and observations for cardiac evaluation, patient refuses stress testing and echo every time Reevaluation #2: 10/27/24 19:41 Patient chest pain does appear to be resolved here in the ER Reevaluation #3: 10/27/24 19:41 Informed of results and questions answered Reevaluation #4: Was pt. sent in by a medical professional or institution (, PA, PACK MASTER, urgent care, hospital, or skilled nursing...) When possible be specific @ -no Did you speak to anyone other than the patient for history (EMS, parent, family, police, friend...)? What history was obtained from this source @ -no Did you review nursing and triage notes (agree or disagree)? Why? @ -agree Are old charts reviewed (outside hosp., previous admission, EMS record, old EKG, old radiological studies, urgent care reports/EKG's, skilled nursing records)? Report findings @ -yes Differential Diagnosis (chest pain, altered mental status, abdominal pain women, abdominal pain men, vaginal bleeding, weakness, fever, dyspnea, syncope, headache, dizziness, GI bleed, back pain, seizure, CVA, palpatations, mental health, musculoskeletal)? @ -prior EKG interpreted by me (3pts min.). @ -yes X-rays interpreted by me (1pt min.). @ -yes negative for acute disease CT interpreted by me (1pt min.). @ -no U/S interpreted by me (1pt. min.). @ -no What testing was considered but not performed or refused? (CT, X-rays, U/S, labs)? Why? @ -none What meds were considered but not given or refused? Why? @ -none Did you discuss the management of the patient with other professionals (professionals i.e. , PA, PACK MASTER, lab, RT, psych nurse, social work professor, spa receptionist, teacher, custody officer, sample case porter)? Give summary @ -no Was smoking cessation discussed for >3mins.? @ -no Was critical care preformed (if so, how long)? @ -no Were there social determinants of health that impacted care today? How? (Homelessness, low income, unemployed, alcoholism, drug addiction, transportation, low edu. Level, literacy, decrease access to med. care, correction, rehab)? @ -none Was there de-escalation of care discussed even if they declined (Discuss DNR or withdrawal of care, Hospice)? DNR status @ -no What co-morbidities impacted this encounter? (DM, HTN, Smoking, COPD, CAD, Cancer, CVA, ARF, Chemo, Hep., AIDS, mental health diagnosis, sleep apnea, morbid obesity)? @ -none Was patient admitted / discharged? Hospital course, mention meds given and route, prescriptions, significant lab abnormalities, going to OR and other pertinent info. @ - 44 female for chest pain. Patient has normal testing here in the ER EKG troponin x-ray, patient can be discharged home Discharge Undiagnosed new problem with uncertain prognosis? @ -no Drug Therapy requiring intensive monitoring for toxicity (Heparin, Nitro, Insulin, Cardizem)? @ -no Were any procedures done? @ -no Diagnosis/symptom? @ -Chest pain Acute, or Chronic, or Acute on Chronic? @ -Acute Uncomplicated (without systemic symptoms) or Complicated (systemic symptoms)? @ -Complicated Side effects of treatment? @ -no Exacerbation, Progression, or Severe Exacerbation? @ -exacerbation Poses a threat to life or bodily function? How? (Chest pain, USA, [place], pneumonia, PE, COPD, DKA, ARF, appy, cholecystitis, CVA, Diverticulitis, Homicidal, Suicidal, threat to staff... and all critical care pts) @ -yes with chest pain Reevaluation #5: Differential Chest Pain: Stable Angina, Unstable Angina, STEMI, NSTEMI Aortic Dissection, Pneumothorax, Musculoskeletal, Esophageal Spasm GERD, Cholecystitis, Pancreatitis, Zoster, this is not meant to be an all-inclusive list. Chest Pain MDM - [facility] 44 female for chest pain. Patient has normal testing here in the ER EKG troponin x-ray, patient can be discharged home Disposition Clinical Impression: Chest pain Disposition: HOME SELF-CARE Condition: Good Instructions (If sedation given, give patient instructions): Chest Pain (ED) Is patient prescribed a controlled substance at d/c from ED?: No Referrals: Evelyn Blas MD [Primary Care Provider] - 1-2 days Time of Disposition: 19:20
[2024-10-27 20:03] VITALS: BP 128/53; PULSE 60; RESP 18
--- NOTE | 2024-10-27 20:29 | XR ---
EXAMINATION TYPE: XR chest 1V portable DATE OF EXAM: 10/27/2024 7:55 PM COMPARISON: Chest radiographs from 07/13/2024 CLINICAL INDICATION: Female, 44 years old with history of chest pain. TECHNIQUE: XR chest 1V portable Frontal view of the chest. FINDINGS: Lungs/Pleura: Low lung volumes are present. There is no evidence of pleural effusion, focal consolida tion, or pneumothorax. Pulmonary vascularity: Unremarkable. Heart/mediastinum: Cardiomediastinal silhouette is unremarkable. Musculoskeletal: No acute osseous pathology. Other findings: None IMPRESSION: Low lung volumes with a generalized hazy appearance which could represent atelectasis versus pulmonar y edema correlate with serum BNP. [facility], , 10/27/2024 8:27 PM
== END 2024-10-27 20:03 | disposition home or self-care (01) ==
LOC: EC 18:01
DX: R07.9 Chest pain, unspecified (principal); Z87.891 Personal history of nicotine dependence; Z88.0 Allergy status to penicillin; Z88.1 Allergy status to other antibiotic agents; Z91.010 Allergy to peanuts; Z91.013 Allergy to seafood; Z91.041 Radiographic dye allergy status; Z88.8 Allergy status to other drugs, medicaments and biological substances
CPT/HCPCS: 71045; 99285

== ENCOUNTER 2024-10-28 19:01 | Emergency (ER) | payer OTHER ==
--- NOTE | 2024-10-28 19:23 | ED ---
Chest Pain HPI - General Chief Complaint: Chest Pain Stated Complaint: chest pain, vomiting Time Seen by Provider: 10/28/24 19:04 Source: patient, RN notes reviewed, old records reviewed Mode of arrival: ambulatory Limitations: no limitations - History of Present Illness Initial Comments: This is a 44-year-old female to the ER for evaluation patient presents today for evaluation regards to chest pain. Here yesterday for chest pain chest pain and nausea vomiting today. No shortness of breath no recent fever cough or congestion no other complaints MD Complaint: chest pain -: days(s) Onset: during rest, during exertion Pain Location: substernal, left chest Pain Radiation: none Severity: mild Severity scale (1-10): 3 Quality: tightness Consistency: intermittent Improves With: nothing Worsens With: nothing Anginal Symptoms: nausea, vomiting Treatments Prior to Arrival: none - Related Data Home Medications Medication Instructions Recorded Confirmed Aspirin EC [Ecotrin Low Dose] 81 mg PO DAILY 10/18/24 10/18/24 Atorvastatin [Lipitor] 40 mg PO HS 10/18/24 10/18/24 Dapagliflozin Propanediol [Farxiga] 10 mg PO DAILY 10/18/24 10/18/24 Dulaglutide [Trulicity] 1.5 mg SQ Q7D 10/18/24 10/18/24 Insulin Glargine,Hum.rec.anlog 20 units SQ DAILY 10/18/24 10/18/24 [Lantus Solostar Pen] Spironolactone [Aldactone] 25 mg PO DAILY 10/18/24 10/18/24 lisinopriL [Zestril] 2.5 mg PO DAILY 10/18/24 10/18/24 Previous Rx's Medication Instructions Recorded fluvoxaMINE [Luvox] 200 mg PO HS 30 Days #120 tab 06/20/24 metFORMIN HCL [Glucophage] 1,000 mg PO BID-W/MEALS #120 tab 06/20/24 Omeprazole 20 mg PO DAILY #30 tab 06/23/24 Albuterol Inhaler [Ventolin Hfa 2 puff INHALATION RT-Q6H PRN each 10/20/24 Inhaler] Haloperidol Decanoate [Haldol D] 50 mg IM Q28D #1 each 10/20/24 INSULIN LISPRO (HumaLOG) [HumaLOG] 0 unit SQ ACHS each 10/20/24 busPIRone HCl [Buspar] 5 mg PO BID 30 Days #60 tab 10/20/24 Allergies Allergy/AdvReac Type Severity Reaction Status Date / Time Iodinated Contrast Media Allergy Anaphylaxis Verified 10/27/24 18:21 [Iodinated Contrast Media - IV Dye] lacosamide [From Vimpat] Allergy Anaphylaxis Verified 10/27/24 18:21 peanut Allergy Anaphylaxis Verified 10/27/24 18:21 Penicillins Allergy Anaphylaxis Verified 10/27/24 18:21 shellfish derived Allergy swelling Verified 10/27/24 18:21 all over body cephalexin monohydrate AdvReac Rash, Verified 10/27/24 18:21 [From Keflex] Nausea, Vomiting & Diarrhea trazodone AdvReac bp Verified 10/27/24 18:21 issues/dizziness Review of Systems ROS Statement: Those systems with pertinent positive or pertinent negative responses have been documented in the HPI. ROS Other: All systems not noted in ROS Statement are negative. 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, IBS, ulcerative colitis, lowr GI bleed, hemorrhoids, constipation, psoriasis, migraines, chronic low back and cervical pain, scoliosis, arhtritis in multiple joints, gout bilateral feet, History of Any Multi-Drug Resistant Organisms: None Reported Past Surgical History: Cholecystectomy, Orthopedic Surgery Additional Past Surgical History / Comment(s): L oophorectomy d/t cyst, D&C, colonoscopy, L carpal tunnel release, Past Anesthesia/Blood Transfusion Reactions: Motion Sickness, Postoperative Nausea & Vomiting (PONV) Past Psychological History: Anxiety, Bipolar, Depression, Schizophrenia Smoking Status: Former smoker Past Alcohol Use History: None Reported Past Drug Use History: Cocaine - Past Family History Mother History Unknown: Yes Family Medical History: Cancer Additional Family Medical History / Comment(s): Mother had breast cancer and metnal illness She is living. Father Family Medical History: Cancer Additional Family Medical History / Comment(s): Father is . He had agent orange exposure. He had liver cancer, bowel to brain cancer. General Exam Limitations: no limitations General appearance: alert, in no apparent distress Head exam: Present: atraumatic, normocephalic, normal inspection Eye exam: Present: normal appearance, PERRL, EOMI. Absent: scleral icterus, conjunctival injection, periorbital swelling ENT exam: Present: normal exam, mucous membranes moist Neck exam: Present: normal inspection. Absent: tenderness, meningismus, lymphadenopathy Respiratory exam: Present: normal lung sounds bilaterally. Absent: respiratory distress, wheezes, rales, rhonchi, stridor Cardiovascular Exam: Present: regular rate, normal rhythm, normal heart sounds. Absent: systolic murmur, diastolic murmur, rubs, gallop, clicks GI/Abdominal exam: Present: soft, normal bowel sounds. Absent: distended, tenderness, guarding, rebound, rigid Extremities exam: Present: normal inspection, full ROM, normal capillary refill. Absent: tenderness, pedal edema, joint swelling, calf tenderness Back exam: Present: normal inspection Neurological exam: Present: alert, oriented X3, CN II-XII intact Psychiatric exam: Present: normal affect, normal mood Skin exam: Present: warm, dry, intact, normal color. Absent: rash Course Vital Signs 10/28/24 19:14 Temperature 991 F H Pulse Rate 80 Respiratory 16 Rate Blood Pressure 112/71 O2 Sat by Pulse 95 Oximetry - Reevaluation(s) Reevaluation #1: 10/28/24 20:57 Medical records reviewed ER visit from yesterday is reviewed Reevaluation #2: 10/28/24 20:57 Patient's chest pain is resolved here in the ER asking for Motrin for headache Patient given nausea medication no vomiting Reevaluation #3: 10/28/24 20:57 Patient informed of results questions answered Reevaluation #4: Was pt. sent in by a medical professional or institution (, PA, JEWELRY MECHANIC, urgent care, hospital, or fpc...) When possible be specific @ -no Did you speak to anyone other than the patient for history (EMS, parent, family, police, friend...)? What history was obtained from this source @ -no Did you review nursing and triage notes (agree or disagree)? Why? @ -agree Are old charts reviewed (outside hosp., previous admission, EMS record, old EKG, old radiological studies, urgent care reports/EKG's, fpc records)? Report findings @ -yes Differential Diagnosis (chest pain, altered mental status, abdominal pain women, abdominal pain men, vaginal bleeding, weakness, fever, dyspnea, syncope, headache, dizziness, GI bleed, back pain, seizure, CVA, palpatations, mental health, musculoskeletal)? @ -prior EKG interpreted by me (3pts min.). @ -yes X-rays interpreted by me (1pt min.). @ -yes negative for acute disease CT interpreted by me (1pt min.). @ -no U/S interpreted by me (1pt. min.). @ -no What testing was considered but not performed or refused? (CT, X-rays, U/S, labs)? Why? @ -none What meds were considered but not given or refused? Why? @ -none Did you discuss the management of the patient with other professionals (professionals i.e. , PA, JEWELRY MECHANIC, lab, RT, psych nurse, pediatric social worker, transit bus driver, teacher, ship's officer, patient case coordinator)? Give summary @ -no Was smoking cessation discussed for >3mins.? @ -no Was critical care preformed (if so, how long)? @ -no Were there social determinants of health that impacted care today? How? (Homelessness, low income, unemployed, alcoholism, drug addiction, transportation, low edu. Level, literacy, decrease access to med. care, assisted, rehab)? @ -none Was there de-escalation of care discussed even if they declined (Discuss DNR or withdrawal of care, Hospice)? DNR status @ -no What co-morbidities impacted this encounter? (DM, HTN, Smoking, COPD, CAD, Cancer, CVA, ARF, Chemo, Hep., AIDS, mental health diagnosis, sleep apnea, morbid obesity)? @ -none Was patient admitted / discharged? Hospital course, mention meds given and route, prescriptions, significant lab abnormalities, going to OR and other pertinent info. @ - Undiagnosed new problem with uncertain prognosis? @ -no Drug Therapy requiring intensive monitoring for toxicity (Heparin, Nitro, Insulin, Cardizem)? @ -no Were any procedures done? @ -no Diagnosis/symptom? @ - Acute, or Chronic, or Acute on Chronic? @ -Acute Uncomplicated (without systemic symptoms) or Complicated (systemic symptoms)? @ -Complicated Side effects of treatment? @ -no Exacerbation, Progression, or Severe Exacerbation? @ -exacerbation Poses a threat to life or bodily function? How? (Chest pain, USA, CT, pneumonia, PE, COPD, DKA, ARF, appy, cholecystitis, CVA, Diverticulitis, Homicidal, Suicidal, threat to staff... and all critical care pts) @ -yes Reevaluation #5: Differential Chest Pain: Stable Angina, Unstable Angina, STEMI, NSTEMI Aortic Dissection, Pneumothorax, Musculoskeletal, Esophageal Spasm GERD, Cholecystitis, Pancreatitis, Zoster, this is not meant to be an all-inclusive list. Chest Pain MDM - [facility] 44 female with chest pain to the ER, patient has no acute findings, EKG normal to her normal baseline troponin negative x-ray negative chest pain was here when she was in the ER yesterday nausea and vomiting was present today resolved patient can be discharged home Disposition Clinical Impression: Chest pain Disposition: HOME SELF-CARE Condition: Good Instructions (If sedation given, give patient instructions): Chest Pain (ED) Is patient prescribed a controlled substance at d/c from ED?: No Referrals: Evelyn Blas MD [Primary Care Provider] - 1-2 days Time of Disposition: 20:30
[2024-10-28 19:51] LABS: Basophils # (A) 0.3 k/uL (0-0.2); Basophils % (A) 2 %; Eosinophils # (A) 0.5 k/uL (0-0.7); Eosinophils % (A) 4 %; HCT 42.3 % (34.0-46.0); HGB 13.6 gm/dL (11.4-16.0); Lymphocytes # (A) 1.3 k/uL (1.0-4.8); Lymphocytes % (A) 8 %; MCH 27.2 pg (25.0-35.0); MCHC 32.1 g/dL (31.0-37.0); MCV 84.7 fL (80.0-100.0); Mean Platelet Volume 7.3; Monocytes # (A) 0.6 k/uL (0-1.0); Monocytes % (A) 4 %; Neutrophils # (A) 12.6 k/uL (1.3-7.7); Neutrophils % (A) 82 %; Platelet Count 205 k/uL (150-450); RBC 4.99 m/uL (3.80-5.40); RDW 15.3 % (11.5-15.5); WBC 15.4 k/uL (3.8-10.6)
[2024-10-28 20:04] LABS: ALT 34 U/L (4-34); AST 36 U/L (14-36); African American GFR (CKD) >90 (>60 ml/min/1.73 sqM); Albumin 4.1 g/dL (3.5-5.0); Alkaline Phosphatase 92 U/L (38-126); Anion Gap 9 mmol/L; Blood Urea Nitrogen 15 mg/dL (7-17); Calcium 9.4 mg/dL (8.4-10.2); Carbon Dioxide 28 mmol/L (22-30); Chloride 95 mmol/L (98-107); Glucose 112 mg/dL (74-99); Lipase 141 U/L (23-300); Magnesium 1.8 mg/dL (1.6-2.3); Non-African American GFR(CKD) >90 (>60 ml/min/1.73 sqM); Sodium 132 mmol/L (137-145); Total Bilirubin 0.5 mg/dL (0.2-1.3); Total Protein 7.3 g/dL (6.3-8.2)
--- NOTE | 2024-10-28 20:08 | XR ---
EXAMINATION TYPE: XR chest 2V DATE OF EXAM: 10/28/2024 7:57 PM COMPARISON: Chest radiographs from 07/13/2024 TECHNIQUE: XR chest 2V Frontal and lateral views of the chest. CLINICAL INDICATION:Female, 44 years old with history of Chest Pain; FINDINGS: Lungs/Pleura: There is no evidence of pleural effusion, focal consolidation, or pneumothorax. Pulmonary vascularity: Unremarkable. Heart/mediastinum: Cardiomediastinal silhouette is unremarkable. Musculoskeletal: No acute osseous pathology. IMPRESSION: No acute cardiopulmonary disease/process. [facility], , 10/28/2024 8:05 PM
[2024-10-28 20:11] LABS: INR 0.9 (<1.2); NT-Pro-B-Type Natriuretic Pept <20 pg/mL; Partial Thromboplastin Time 23.7 sec (22.0-30.0); Prothrombin Time 10.2 sec (10.0-12.5)
[2024-10-28 20:13] LABS: Potassium 4.8 mmol/L (3.5-5.1)
[2024-10-28] MEDS: ONDANSETRON 4 MG/2 ML VIAL IVP STA (20:58)
[2024-10-28] MEDS: IBUPROFEN 400 MG TAB PO STA (20:58)
[2024-10-28 21:08] VITALS: BP 137/80; PULSE 77; RESP 20; TEMP 98.9
== END 2024-10-28 21:08 | disposition home or self-care (01) ==
LOC: EC 19:01
DX: R07.89 Other chest pain (principal); Z87.891 Personal history of nicotine dependence; Z88.0 Allergy status to penicillin; Z88.1 Allergy status to other antibiotic agents; Z91.041 Radiographic dye allergy status; Z91.013 Allergy to seafood; Z88.8 Allergy status to other drugs, medicaments and biological substances; Z91.010 Allergy to peanuts
CPT/HCPCS: 36415; 93005; 83880; 80053; 83690; 83735; 84484; 85025; 85610; 85730; 71046; 99285; 96374; J2405

== ENCOUNTER 2024-11-03 19:13 | Emergency (ER) | payer OTHER ==
[2024-11-03 19:30] VITALS: TEMP 98.2
--- NOTE | 2024-11-03 20:24 | XR ---
EXAMINATION TYPE: XR chest 2V DATE OF EXAM: 11/03/2024 8:19 PM COMPARISON: 10/28/2024 CLINICAL INDICATION: Female, 44 years old with history of pain, TECHNIQUE: XR chest 2V view(s) obtained. FINDINGS: The heart size is normal. The pulmonary vasculature is normal. The lungs are clear. IMPRESSION: 1. No acute pulmonary process. [facility], , 11/03/2024 8:22 PM
[2024-11-03] MEDS: METOCLOPRAMIDE 10 MG TAB PO STA (20:58)
--- NOTE | 2024-11-03 21:38 | ED ---
URI HPI - General Chief Complaint: Upper Respiratory Infection Stated Complaint: Covid+, nausea, headache Time Seen by Provider: 11/03/24 20:04 Source: patient Mode of arrival: ambulatory Limitations: no limitations - History of Present Illness Initial Comments: 44-year-old female with chief complaint of nausea. Patient reports that she tested positive for COVID 5 days ago. She reports she has had nausea, congestion, body aches, cough, chest discomfort, abdominal discomfort, and headache. She took Zofran at home but was still having some nausea so she came here. The chest pain is from coughing. No fever. No vomiting. - Related Data Home Medications Medication Instructions Recorded Confirmed Aspirin EC [Ecotrin Low Dose] 81 mg PO DAILY 10/18/24 10/18/24 Atorvastatin [Lipitor] 40 mg PO HS 10/18/24 10/18/24 Dapagliflozin Propanediol [Farxiga] 10 mg PO DAILY 10/18/24 10/18/24 Dulaglutide [Trulicity] 1.5 mg SQ Q7D 10/18/24 10/18/24 Insulin Glargine,Hum.rec.anlog 20 units SQ DAILY 10/18/24 10/18/24 [Lantus Solostar Pen] Spironolactone [Aldactone] 25 mg PO DAILY 10/18/24 10/18/24 lisinopriL [Zestril] 2.5 mg PO DAILY 10/18/24 10/18/24 Previous Rx's Medication Instructions Recorded fluvoxaMINE [Luvox] 200 mg PO HS 30 Days #120 tab 06/20/24 metFORMIN HCL [Glucophage] 1,000 mg PO BID-W/MEALS #120 tab 06/20/24 Omeprazole 20 mg PO DAILY #30 tab 06/23/24 Albuterol Inhaler [Ventolin Hfa 2 puff INHALATION RT-Q6H PRN each 10/20/24 Inhaler] Haloperidol Decanoate [Haldol D] 50 mg IM Q28D #1 each 10/20/24 INSULIN LISPRO (HumaLOG) [HumaLOG] 0 unit SQ ACHS each 10/20/24 busPIRone HCl [Buspar] 5 mg PO BID 30 Days #60 tab 10/20/24 Allergies Allergy/AdvReac Type Severity Reaction Status Date / Time Iodinated Contrast Media Allergy Anaphylaxis Verified 11/03/24 19:30 [Iodinated Contrast Media - IV Dye] lacosamide [From Vimpat] Allergy Anaphylaxis Verified 11/03/24 19:30 peanut Allergy Anaphylaxis Verified 11/03/24 19:30 Penicillins Allergy Anaphylaxis Verified 11/03/24 19:30 shellfish derived Allergy swelling Verified 11/03/24 19:30 all over body cephalexin monohydrate AdvReac Rash, Verified 11/03/24 19:30 [From Keflex] Nausea, Vomiting & Diarrhea trazodone AdvReac bp Verified 11/03/24 19:30 issues/dizziness Review of Systems ROS Statement: Those systems with pertinent positive or pertinent negative responses have been documented in the HPI. ROS Other: All systems not noted in ROS Statement are negative. Past Medical History Past Medical History: Asthma, Heart Failure, COPD, Diabetes Mellitus, Fibromyalgia, GERD/Reflux, GI Bleed, Hypertension, Liver Disease, Osteoarthritis (OA), Pneumonia, Seizure Disorder, Skin Disorder Additional Past Medical History / Comment(s): Bronchitis, gestational diabetes, seizures with last one 01/2024, sickle cell trait, liver cirrhosis, anemia, chrons, IBS, ulcerative colitis, lowr GI bleed, hemorrhoids, constipation, psoriasis, migraines, chronic low back and cervical pain, scoliosis, arhtritis in multiple joints, gout bilateral feet, History of Any Multi-Drug Resistant Organisms: None Reported Past Surgical History: Cholecystectomy, Orthopedic Surgery Additional Past Surgical History / Comment(s): L oophorectomy d/t cyst, D&C, colonoscopy, L carpal tunnel release, Past Anesthesia/Blood Transfusion Reactions: Motion Sickness, Postoperative Nausea & Vomiting (PONV) Past Psychological History: Anxiety, Bipolar, Depression, Schizophrenia Smoking Status: Former smoker Past Alcohol Use History: None Reported Past Drug Use History: Cocaine - Past Family History Mother History Unknown: Yes Family Medical History: Cancer Additional Family Medical History / Comment(s): Mother had breast cancer and metnal illness She is living. Father Family Medical History: Cancer Additional Family Medical History / Comment(s): Father is . He had agent orange exposure. He had liver cancer, bowel to brain cancer. General Exam Limitations: no limitations General appearance: alert, in no apparent distress Head exam: Present: atraumatic, normocephalic, normal inspection Eye exam: Present: normal appearance, EOMI. Absent: periorbital swelling Neck exam: Present: normal inspection. Absent: meningismus Respiratory exam: Present: normal lung sounds bilaterally. Absent: respiratory distress, wheezes, rales, rhonchi, stridor Cardiovascular Exam: Present: regular rate, normal rhythm, normal heart sounds. Absent: systolic murmur, diastolic murmur, rubs, gallop, clicks Neurological exam: Present: alert, oriented X3 Psychiatric exam: Present: normal affect, normal mood Skin exam: Present: warm, dry, normal color Course Vital Signs 11/03/24 11/03/24 19:28 21:52 Temperature 98.2 F 98.2 F Pulse Rate 67 68 Respiratory 18 16 Rate Blood Pressure 111/79 114/64 O2 Sat by Pulse 97 99 Oximetry Medical Decision Making - Medical Decision Making Was pt. sent in by a medical professional or institution (, PA, GRAIN SAMPLER, urgent care, hospital, or long term...) When possible be specific @ -No Did you speak to anyone other than the patient for history (EMS, parent, family, police, friend...)? What history was obtained from this source @ -No Did you review nursing and triage notes (agree or disagree)? Why? @ -I reviewed and agree with nursing and triage notes Were old charts reviewed (outside hosp., previous admission, EMS record, old EKG, old radiological studies, urgent care reports/EKG's, long term records)? Report findings @ -No old charts were reviewed Differential Diagnosis (chest pain, altered mental status, abdominal pain women, abdominal pain men, vaginal bleeding, weakness, fever, dyspnea, syncope, headache, dizziness, GI bleed, back pain, seizure, CVA, palpatations, mental health, musculoskeletal)? @ -Differential includes COVID, bronchitis, pneumonia, not an all-inclusive list EKG interpreted by me (3pts min.). @ -EKG shows sinus rhythm ventricular rate 68. OH interval 174. QRS 158. QT 433. QTc 450. Right bundle branch block. No changes from previous EKG X-rays interpreted by me (1pt min.). @ -Chest x-ray shows no acute process CT interpreted by me (1pt min.). @ -None done U/S interpreted by me (1pt. min.). @ -None done What testing was considered but not performed or refused? (CT, X-rays, U/S, labs)? Why? @ -None What meds were considered but not given or refused? Why? @ -None Did you discuss the management of the patient with other professionals (professionals i.e. , PA, GRAIN SAMPLER, lab, RT, psych nurse, criminal justice social worker, lime sludge mixer, teacher, agricultural loan officer, case resource manager)? Give summary @ -No Was smoking cessation discussed for >3mins.? @ -No Was critical care preformed (if so, how long)? @ -No Were there social determinants of health that impacted care today? How? (Homelessness, low income, unemployed, alcoholism, drug addiction, transportation, low edu. Level, literacy, decrease access to med. care, skilled nursing, rehab)? @ -No Was there de-escalation of care discussed even if they declined (Discuss DNR or withdrawal of care, Hospice)? DNR status @ -No What co-morbidities impacted this encounter? (DM, HTN, Smoking, COPD, CAD, Cancer, CVA, ARF, Chemo, Hep., AIDS, mental health diagnosis, sleep apnea, morbid obesity)? @ -None Was patient admitted / discharged? Hospital course, mention meds given and route, prescriptions, significant lab abnormalities, going to OR and other pertinent info. @ -44-year-old female presenting with chief complaint of nausea as well as multitude of other viral symptoms. Workup initiated by triage. EKG shows no changes from previous and chest x-ray shows no acute process. Patient was given medication for her nausea. She is educated on today's findings and supportive management of COVID-related symptoms at home. Follow-up with PCP. Report back to ER with any new or worsening symptoms. Discussed return parameters and answered all questions. Patient conveyed verbal understanding and agreed to the plan. I discussed this case in detail with my attending Dr. Arechiga Undiagnosed new problem with uncertain prognosis? @ -No Drug Therapy requiring intensive monitoring for toxicity (Heparin, Nitro, Insulin, Cardizem)? @ -No Were any procedures done? @ -No Diagnosis/symptom? @ -COVID-19 Acute, or Chronic, or Acute on Chronic? @ -Acute Uncomplicated (without systemic symptoms) or Complicated (systemic symptoms)? @ -Uncomplicated Side effects of treatment? @ -No Exacerbation, Progression, or Severe Exacerbation? @ -No Poses a threat to life or bodily function? How? (Chest pain, [place], [place], pneumonia, PE, COPD, DKA, ARF, appy, cholecystitis, CVA, Diverticulitis, Homicidal, Suicidal, threat to staff... and all critical care pts) @ -Low likelihood Disposition Clinical Impression: COVID-19 Disposition: HOME SELF-CARE Condition: Good Instructions (If sedation given, give patient instructions): COVID-19 (Coronavirus Disease 2019) (ED) Additional Instructions: Follow-up with PCP. Report back to ER with any new or worsening symptoms. Is patient prescribed a controlled substance at d/c from ED?: No Referrals: Evelyn Bals MD [Primary Care Provider] - 1-2 days Time of Disposition: 21:44
[2024-11-03 21:56] VITALS: BP 114/64; PULSE 68; RESP 16
== END 2024-11-03 21:55 | disposition home or self-care (01) ==
LOC: EC 19:13
DX: U07.1 COVID-19 (principal); Z87.891 Personal history of nicotine dependence; Z88.0 Allergy status to penicillin; Z88.1 Allergy status to other antibiotic agents; Z91.010 Allergy to peanuts; Z91.013 Allergy to seafood; Z91.041 Radiographic dye allergy status; Z88.8 Allergy status to other drugs, medicaments and biological substances
CPT/HCPCS: 71046; 93005; 99284

== ENCOUNTER 2024-11-05 17:21 | Emergency (ER) | payer OTHER ==
--- NOTE | 2024-11-05 17:43 | ED ---
Nausea/Vomiting/Diarrhea HPI - General Chief complaint: Nausea/Vomiting/Diarrhea Stated complaint: Abd pain Source: EMS, RN notes reviewed, old records reviewed Mode of arrival: EMS Limitations: no limitations - History of Present Illness Initial comments: This is a 44 female to the emergency department today for history of nausea vomiting, patient has recent diagnosed coronavirus and has been having nausea and vomiting since original diagnosis. No real abdominal pain states she cannot keep any medications down or any other food or water. Patient has no current shortness of breath abdominal complaints MD complaint: nausea, vomiting -: days(s) Description of Vomiting: food contents Description of Diarrhea: water Associated Abdominal Pain: No Location: [facility] Severity: mild Consistency: intermittent Worsens with: none Associated Symptoms: denies other symptoms - Related Data Home Medications Medication Instructions Recorded Confirmed Aspirin EC [Ecotrin Low Dose] 81 mg PO DAILY 10/18/24 10/18/24 Atorvastatin [Lipitor] 40 mg PO HS 10/18/24 10/18/24 Dapagliflozin Propanediol [Farxiga] 10 mg PO DAILY 10/18/24 10/18/24 Dulaglutide [Trulicity] 1.5 mg SQ Q7D 10/18/24 10/18/24 Insulin Glargine,Hum.rec.anlog 20 units SQ DAILY 10/18/24 10/18/24 [Lantus Solostar Pen] Spironolactone [Aldactone] 25 mg PO DAILY 10/18/24 10/18/24 lisinopriL [Zestril] 2.5 mg PO DAILY 10/18/24 10/18/24 Previous Rx's Medication Instructions Recorded fluvoxaMINE [Luvox] 200 mg PO HS 30 Days #120 tab 06/20/24 metFORMIN HCL [Glucophage] 1,000 mg PO BID-W/MEALS #120 tab 06/20/24 Omeprazole 20 mg PO DAILY #30 tab 06/23/24 Albuterol Inhaler [Ventolin Hfa 2 puff INHALATION RT-Q6H PRN each 10/20/24 Inhaler] Haloperidol Decanoate [Haldol D] 50 mg IM Q28D #1 each 10/20/24 INSULIN LISPRO (HumaLOG) [HumaLOG] 0 unit SQ ACHS each 10/20/24 busPIRone HCl [Buspar] 5 mg PO BID 30 Days #60 tab 10/20/24 Allergies Allergy/AdvReac Type Severity Reaction Status Date / Time Iodinated Contrast Media Allergy Anaphylaxis Verified 11/05/24 17:31 [Iodinated Contrast Media - IV Dye] lacosamide [From Vimpat] Allergy Anaphylaxis Verified 11/05/24 17:31 peanut Allergy Anaphylaxis Verified 11/05/24 17:31 Penicillins Allergy Anaphylaxis Verified 11/05/24 17:31 shellfish derived Allergy swelling Verified 11/05/24 17:31 all over body cephalexin monohydrate AdvReac Rash, Verified 11/05/24 17:31 [From Keflex] Nausea, Vomiting & Diarrhea trazodone AdvReac bp Verified 11/05/24 17:31 issues/dizziness Review of Systems ROS Statement: Those systems with pertinent positive or pertinent negative responses have been documented in the HPI. ROS Other: All systems not noted in ROS Statement are negative. Past Medical History Past Medical History: Asthma, Heart Failure, COPD, Diabetes Mellitus, Fibromyalgia, GERD/Reflux, GI Bleed, Hypertension, Liver Disease, Osteoarthritis (OA), Pneumonia, Seizure Disorder, Skin Disorder Additional Past Medical History / Comment(s): Bronchitis, gestational diabetes, seizures with last one 01/2024, sickle cell trait, liver cirrhosis, anemia, chrons, IBS, ulcerative colitis, lowr GI bleed, hemorrhoids, constipation, psoriasis, migraines, chronic low back and cervical pain, scoliosis, arhtritis in multiple joints, gout bilateral feet, History of Any Multi-Drug Resistant Organisms: None Reported Past Surgical History: Cholecystectomy, Orthopedic Surgery Additional Past Surgical History / Comment(s): L oophorectomy d/t cyst, D&C, colonoscopy, L carpal tunnel release, Past Anesthesia/Blood Transfusion Reactions: Motion Sickness, Postoperative Nausea & Vomiting (PONV) Past Psychological History: Anxiety, Bipolar, Depression, Schizophrenia Smoking Status: Former smoker Past Alcohol Use History: None Reported Past Drug Use History: Cocaine - Past Family History Mother History Unknown: Yes Family Medical History: Cancer Additional Family Medical History / Comment(s): Mother had breast cancer and metnal illness She is living. Father Family Medical History: Cancer Additional Family Medical History / Comment(s): Father is . He had agent orange exposure. He had liver cancer, bowel to brain cancer. General Exam Limitations: no limitations General appearance: alert, in no apparent distress Head exam: Present: atraumatic, normocephalic, normal inspection Eye exam: Present: normal appearance, PERRL, EOMI. Absent: scleral icterus, conjunctival injection, periorbital swelling ENT exam: Present: normal exam, mucous membranes moist Neck exam: Present: normal inspection. Absent: tenderness, meningismus, lymphadenopathy Respiratory exam: Present: normal lung sounds bilaterally. Absent: respiratory distress, wheezes, rales, rhonchi, stridor Cardiovascular Exam: Present: regular rate, normal rhythm, normal heart sounds. Absent: systolic murmur, diastolic murmur, rubs, gallop, clicks GI/Abdominal exam: Present: soft, normal bowel sounds. Absent: distended, tend erness, guarding, rebound, rigid Extremities exam: Present: normal inspection, full ROM, normal capillary refill. Absent: tenderness, pedal edema, joint swelling, calf tenderness Back exam: Present: normal inspection Neurological exam: Present: alert, oriented X3, CN II-XII intact Psychiatric exam: Present: normal affect, normal mood Skin exam: Present: warm, dry, intact, normal color. Absent: rash Course Vital Signs 11/05/24 17:22 Temperature 98.3 F Pulse Rate 81 Respiratory 18 Rate Blood Pressure 137/81 O2 Sat by Pulse 95 Oximetry - Reevaluation(s) Reevaluation #1: 11/05/24 19:12 Medical records reviewed prior ER visits are reviewed including data positive diagnosis coronavirus Reevaluation #2: 11/05/24 19:12 Patient asking for food not nauseous or vomiting currently Reevaluation #3: 11/05/24 19:12 Patient informed of results and questions answered Reevaluation #4: Was pt. sent in by a medical professional or institution (, PA, HEARING AID SPECIALIST, urgent care, hospital, or long term...) When possible be specific @ -no Did you speak to anyone other than the patient for history (EMS, parent, family, police, friend...)? What history was obtained from this source @ -no Did you review nursing and triage notes (agree or disagree)? Why? @ -agree Are old charts reviewed (outside hosp., previous admission, EMS record, old EKG, old radiological studies, urgent care reports/EKG's, long term records)? Report findings @ -yes Differential Diagnosis (chest pain, altered mental status, abdominal pain women, abdominal pain men, vaginal bleeding, weakness, fever, dyspnea, syncope, headache, dizziness, GI bleed, back pain, seizure, CVA, palpatations, mental health, musculoskeletal)? @ -prior EKG interpreted by me (3pts min.). @ -yes X-rays interpreted by me (1pt min.). @ -yes negative for acute disease CT interpreted by me (1pt min.). @ -no U/S interpreted by me (1pt. min.). @ -no What testing was considered but not performed or refused? (CT, X-rays, U/S, la bs)? Why? @ -none What meds were considered but not given or refused? Why? @ -none Did you discuss the management of the patient with other professionals (professionals i.e. , PA, HEARING AID SPECIALIST, lab, RT, psych nurse, addiction social worker, fuel operator, teacher, fire officer, pillowcase cleaner)? Give summary @ -no Was smoking cessation discussed for >3mins.? @ -no Was critical care preformed (if so, how long)? @ -no Were there social determinants of health that impacted care today? How? (Homelessness, low income, unemployed, alcoholism, drug addiction, transportation, low edu. Level, literacy, decrease access to med. care, longterm, rehab)? @ -none Was there de-escalation of care discussed even if they declined (Discuss DNR or withdrawal of care, Hospice)? DNR status @ -no What co-morbidities impacted this encounter? (DM, HTN, Smoking, COPD, CAD, Cancer, CVA, ARF, Chemo, Hep., AIDS, mental health diagnosis, sleep apnea, morbid obesity)? @ -none Was patient admitted / discharged? Hospital course, mention meds given and route, prescriptions, significant lab abnormalities, going to OR and other pertinent info. @ - Undiagnosed new problem with uncertain prognosis? @ -no Drug Therapy requiring intensive monitoring for toxicity (Heparin, Nitro, Insulin, Cardizem)? @ -no Were any procedures done? @ -no Diagnosis/symptom? @ - Acute, or Chronic, or Acute on Chronic? @ -Acute Uncomplicated (without systemic symptoms) or Complicated (systemic symptoms)? @ -Complicated Side effects of treatment? @ -no Exacerbation, Progression, or Severe Exacerbation? @ -exacerbation Poses a threat to life or bodily function? How? (Chest pain, [place], [place], pneumonia, PE, COPD, DKA, ARF, appy, cholecystitis, CVA, Diverticulitis, Homicidal, Suicidal, threat to staff... and all critical care pts) @ -yes Reevaluation #5: Differential Abdominal Pain Women: Appendicitis, Cholecystitis, diverticulosis, ischemic bowel, pancreatitis, hepatitis, UTI, gastroenteritis, AAA, incarcerated hernia, bowel obstruction, constipation, inflammatory bowel, hepatitis, peptic ulcer disease, splenic infa rction, perforated viscus, vulvitis, ovarian torsion, PID, kidney stone, placenta abruption, this is not meant to be an all-inclusive list Medical Decision Making - Medical Decision Making 44 female with nausea vomiting positive coronavirus symptoms are resolved here in the ER hydration is improved patient can be discharged home - Lab Data Result diagrams: 11/05/24 17:55 Lab Results 11/05/24 Range/Units 17:55 WBC 21.8 H (3.8-10.6) k/uL RBC 5.37 (3.80-5.40) m/uL Hgb 15.0 (11.4-16.0) gm/dL Hct 45.7 (34.0-46.0) % MCV 85.0 (80.0-100.0) fL MCH 27.8 (25.0-35.0) pg MCHC 32.7 (31.0-37.0) g/dL RDW 15.3 (11.5-15.5) % Plt Count 249 (150-450) k/uL MPV 7.2 Neutrophils % 86 % Lymphocytes % 8 % Monocytes % 4 % Eosinophils % 1 % Basophils % 0 % Neutrophils # 18.8 H (1.3-7.7) k/uL Lymphocytes # 1.8 (1.0-4.8) k/uL Monocytes # 0.9 (0-1.0) k/uL Eosinophils # 0.3 (0-0.7) k/uL Basophils # 0.0 (0-0.2) k/uL Hypochromasia Slight - Radiology Data Radiology results: report reviewed (Chest x-ray is negative for acute disease), image reviewed Disposition Clinical Impression: Nausea and vomiting Disposition: HOME SELF-CARE Condition: Good Instructions (If sedation given, give patient instructions): Acute Nausea and Vomiting (ED) Is patient prescribed a controlled substance at d/c from ED?: No Referrals: Evelyn Blas MD [Primary Care Provider] - 1-2 days Time of Disposition: 19:00
[2024-11-05] MEDS: SODIUM CHLORIDE 0.9% 1,000 ML IV SCH (18:01)
[2024-11-05] MEDS: PANTOPRAZOLE 40 MG/10 ML VIAL IVP STA (18:02)
[2024-11-05] MEDS: diphenhydrAMINE 50 MG/ML 1 ML VIAL IVP STA (18:03)
[2024-11-05 18:04] LABS: Basophils % (A) 0 %; Eosinophils # (A) 0.3 k/uL (0-0.7); Eosinophils % (A) 1 %; HCT 45.7 % (34.0-46.0); Hypochromasia Slight; Lymphocytes # (A) 1.8 k/uL (1.0-4.8); Lymphocytes % (A) 8 %; MCH 27.8 pg (25.0-35.0); MCHC 32.7 g/dL (31.0-37.0); Mean Platelet Volume 7.2; Monocytes # (A) 0.9 k/uL (0-1.0); Monocytes % (A) 4 %; Neutrophils # (A) 18.8 k/uL (1.3-7.7); Neutrophils % (A) 86 %; Platelet Count 249 k/uL (150-450); RBC 5.37 m/uL (3.80-5.40); RDW 15.3 % (11.5-15.5); WBC 21.8 k/uL (3.8-10.6)
[2024-11-05] MEDS: droPERidol 5 MG/2 ML VIAL IVP ONE (18:04)
--- NOTE | 2024-11-05 18:34 | XR ---
EXAMINATION TYPE: XR chest 2V DATE OF EXAM: 11/05/2024 6:28 PM COMPARISON: 11/03/2024 CLINICAL INDICATION: Female, 44 years old with history of sob, TECHNIQUE: XR chest 2V view(s) obtained. FINDINGS: The heart size is normal. The pulmonary vasculature is normal. The lungs are clear. IMPRESSION: 1. No acute pulmonary process. [facility], , 11/05/2024 6:32 PM
[2024-11-05 19:25] VITALS: RESP 19
[2024-11-05 19:31] LABS: ALT 20 U/L (4-34); AST 17 U/L (14-36); African American GFR (CKD) >90 (>60 ml/min/1.73 sqM); Albumin 4.1 g/dL (3.5-5.0); Alkaline Phosphatase 91 U/L (38-126); Amylase 46 U/L (30-110); Anion Gap 12 mmol/L; Blood Urea Nitrogen 17 mg/dL (7-17); Calcium 8.9 mg/dL (8.4-10.2); Carbon Dioxide 24 mmol/L (22-30); Chloride 95 mmol/L (98-107); Glucose 158 mg/dL (74-99); Lipase 75 U/L (23-300); Non-African American GFR(CKD) >90 (>60 ml/min/1.73 sqM); Potassium 4.2 mmol/L (3.5-5.1); Sodium 131 mmol/L (137-145); Total Bilirubin 0.5 mg/dL (0.2-1.3); Total Protein 7.3 g/dL (6.3-8.2)
[2024-11-05 20:47] VITALS: BP 126/75; PULSE 82; TEMP 98.1
== END 2024-11-05 20:46 | disposition home or self-care (01) ==
LOC: EC 17:21
DX: R11.2 Nausea with vomiting, unspecified (principal); Z87.891 Personal history of nicotine dependence; Z88.0 Allergy status to penicillin; Z88.1 Allergy status to other antibiotic agents; Z91.010 Allergy to peanuts; Z91.013 Allergy to seafood; Z91.041 Radiographic dye allergy status; Z88.8 Allergy status to other drugs, medicaments and biological substances
CPT/HCPCS: 80053; 82150; 83690; 83735; 85025; 71046; 99285; 96374; 96375; 96361; J1200; J1790; J2470; 36415

== ENCOUNTER 2024-11-10 21:55 | Inpatient (IN) | payer MEDICAID, OTHER ==
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
[2024-11-11] MEDS: ONDANSETRON ODT 4 MG TAB PO STA (00:24)
[2024-11-11 01:44] LABS: Influenza A Not Detected (Not Detectd); Influenza B Not Detected (Not Detectd); RSV Not Detected (Not Detectd)
[2024-11-11] MEDS ORDERED: hydrOXYzine HCL 50 MG/ML 1 ML VIAL IM PRN (02:05)
[2024-11-11] MEDS ORDERED: MAGNESIUM HYDROXIDE 2,400 MG/30 ML CUP PO PRN (02:05)
[2024-11-11] MEDS: ACETAMINOPHEN TAB 325 MG TAB PO PRN (03:35)
[2024-11-11] MEDS: hydrOXYzine HCL 25 MG TAB PO PRN (03:36)
[2024-11-11 07:43] LABS: Glucose,Whole Blood 162 mg/dL (70-110)
[2024-11-11] MEDS: INSULIN LISPRO (HumaLOG) 100 UNIT/ML 10 mL VL SQ SCH (07:49)
[2024-11-11] MEDS: INSULIN GLARGINE (LANTUS) 100 UNIT/ML SYR SQ SCH (08:02)
[2024-11-11] MEDS: metFORMIN 500 MG TAB PO SCH (08:16)
[2024-11-11] MEDS: SPIRONOLACTONE 25 MG TAB PO SCH (08:17)
[2024-11-11] MEDS: ASPIRIN 81 MG PO SCH (08:17)
[2024-11-11] MEDS: DAPAGLIFLOZIN PROPANEDIOL 10 MG TABLET PO SCH (08:17)
[2024-11-11] MEDS: busPIRone HCl 5 MG TAB PO SCH (08:17)
[2024-11-11] MEDS: PANTOPRAZOLE 40 MG TABLET PO SCH (08:17)
[2024-11-11] MEDS: NICOTINE 14MG/24HR PATCH TRANSDERM SCH (08:17)
[2024-11-11 12:49] LABS: Glucose,Whole Blood 130 mg/dL (70-110)
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
[2024-11-11 17:40] LABS: Glucose,Whole Blood 116 mg/dL (70-110)
[2024-11-11 17:55] LABS: Appearance,Urine Clear (Clear); Bilirubin,Urine Negative (Negative); Blood,Urine Negative (Negative); Color,Urine Colorless; Glucose,Urine (UA) 4+ (Negative); Ketones,Urine Negative (Negative); Leukocyte Esterase,Urine Negative (Negative); Nitrite,Urine Negative (Negative); Protein,Urine Negative (Negative); Specific Gravity,Urine 1.015 (1.001-1.035); Urobilinogen,Urine <2.0 mg/dL (<2.0)
[2024-11-11] MEDS: MAG HYDROX/AL HYDROX/SIMETH 355 ML BOTTLE PO PRN (18:26)
[2024-11-11 19:50] LABS: Glucose,Whole Blood 151 mg/dL (70-110)
[2024-11-11] MEDS: ATORVASTATIN 40 MG TAB PO SCH (19:52)
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
[2024-11-12 08:02] LABS: Glucose,Whole Blood 127 mg/dL (70-110)
[2024-11-12 08:53] LABS: Basophils # (A) 0.07 10*3/uL (0.00-0.10); Basophils % (A) 0.4 %; Eosinophils # (A) 0.18 10*3/uL (0.04-0.35); Eosinophils % (A) 1.1 %; HCT 43.6 % (37.2-46.3); HGB 13.5 g/dL (12.0-15.0); Lymphocytes # (A) 4.12 10*3/uL (0.90-5.00); Lymphocytes % (A) 25.4 %; MCH 27.2 pg (27.0-32.0); MCV 87.7 fL (80.0-97.0); Mean Platelet Volume 9.3 fL (9.5-12.2); Monocytes # (A) 0.95 10*3/uL (0.20-1.00); Monocytes % (A) 5.9 %; Neutrophils # (A) 10.69 10*3/uL (1.80-7.70); Neutrophils % (A) 65.8 %; Platelet Count 279 10*3/uL (140-440); RBC 4.97 10*6/uL (4.10-5.20); RDW 16.1 % (11.5-14.5); WBC 16.23 10*3/uL (4.50-10.00)
[2024-11-12 08:58] LABS: Urine Alcohol Negative (Negative); Urine Barbiturate Negative (Negative); Urine Cocaine Negative (Negative); Urine Methadone Negative (Negative); Urine Opiates Negative (Negative); Urine Phencyclidine Negative (Negative)
[2024-11-12 09:08] LABS: ALT 28 U/L (4-34); AST 25 U/L (14-36); African American GFR (CKD) >90 (>60 ml/min/1.73 sqM); Alkaline Phosphatase 90 U/L (38-126); Anion Gap 10 mmol/L; Bilirubin, Delta 0.3 mg/dL (0.0-0.2); Bilirubin,Unconjugated 0.1 mg/dL (0.0-1.1); Blood Urea Nitrogen 21 mg/dL (7-17); Calcium 9.6 mg/dL (8.4-10.2); Carbon Dioxide 26 mmol/L (22-30); Chloride 100 mmol/L (98-107); Glucose 122 mg/dL (74-99); Non-African American GFR(CKD) >90 (>60 ml/min/1.73 sqM); Potassium 4.7 mmol/L (3.5-5.1); Sodium 136 mmol/L (137-145); Total Bilirubin 0.4 mg/dL (0.2-1.3); Total Protein 7.3 g/dL (6.3-8.2)
--- NOTE | 2024-11-12 10:21 | XR ---
EXAMINATION TYPE: XR chest 2V DATE OF EXAM: 11/12/2024 10:14 AM COMPARISON: 11/05/2024 CLINICAL INDICATION: Female, 44 years old with history of high WBCs, chest pain TECHNIQUE: XR chest 2V view(s) obtained. FINDINGS: The heart size is normal. The pulmonary vasculature is normal. The lungs are clear. IMPRESSION: 1. No acute pulmonary process. [facility], , 11/12/2024 10:19 AM
[2024-11-12 11:44] LABS: Glucose,Whole Blood 125 mg/dL (70-110)
[2024-11-12] MEDS: ALBUTEROL INHALER 60 PUFF/8 GM INHALER (MHU) INHALATION PRN (11:52)
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
[2024-11-12 12:44] LABS: Glucose,Whole Blood 110 mg/dL (70-110)
[2024-11-12 17:38] LABS: Glucose,Whole Blood 87 mg/dL (70-110)
[2024-11-12 19:54] LABS: Glucose,Whole Blood 123 mg/dL (70-110)
[2024-11-12 19:56] LABS: Chol/HDL Ratio 2.05 Ratio; LDL Cholesterol,Calculated 25.9 mg/dL (0.0-131.0)
[2024-11-12] MEDS: IBUPROFEN 600 MG TAB PO PRN (21:15)
[2024-11-13 07:45] LABS: Glucose,Whole Blood 148 mg/dL (70-110)
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
[2024-11-13 12:41] LABS: Glucose,Whole Blood 136 mg/dL (70-110)
[2024-11-13 17:38] LABS: Glucose,Whole Blood 99 mg/dL (70-110)
[2024-11-13 20:06] LABS: Glucose,Whole Blood 103 mg/dL (70-110)
[2024-11-13] MEDS: LITHIUM CARBONATE ER 450 MG TABLET.ER PO SCH (20:35)
[2024-11-14 07:56] LABS: Glucose,Whole Blood 121 mg/dL (70-110)
--- NOTE | 2024-11-14 11:45 | P.PN ---
Progress Note - Text Progress Note Date: 11/14/24 Interval History: Patient was seen laying in her bed today, she was agreeable to speak to conventional underwriter at the bedside. Patient continues to have foul body odor coming from the room. Patient was fairly concrete today, claims that she is doing well. Was requesting to go back home. We spoke about the possibility that she might not be allowed back to the previous [facility], she was okay with this. She asked if she could go to her sister's house instead. She appears to have fairly poor insight poor judgment. Irritability and mood swings appear to be improving. Denies any depression or anxiety at this time. Claims that she slept fairly last night has been eating well. Going to some groups. Denies any suicidal homicidal ideations intent or plan denies any auditory or visual hallucinations. Denies any issues with her medications or side effects MENTAL STATUS EXAM: General Appearance: Patient appears to be older than stated age, is alert, directable, and attempts to cooperate. Poor hygiene poor grooming foul body odor. She is obese. She is wearing reading glasses Behavior: Patient is laying in her bed without any agitated behavior. Attempts to cooperate Speech: Patient's speech is fluent and nonpressured. Fairly concrete Mood/Affect: Patient reports their mood is " good" affect is congruent and constricted. Suicidality/Homicidality: Patient denies having any homicidal ideation intent or plan. Denies any suicidal ideations intent or plan Perceptions: Patient denies any current visual hallucinations, denies any current auditory hallucinations Though content/process: There is no evidence of any delusional thought content and thought process is linear and goal-directed. [place] Memory and concentration: AOX3, grossly intact for the purposes of this session Judgment and insight: Chronically poor/limited, improving mildly IMPRESSIONS: Schizoaffective disorder Anxiety disorder, unspecified borderline personality disorder History of cocaine use disorder, in early remission PLAN: -Patient is admitted under voluntary status to [facility] for stabilization of psychia tric symptoms and safety. Patient has signed adult voluntary form and medication consent and is placed in patient's chart. -Medications : increase frequency of Haldol decanoate, 50 mg IM last given , will schedule next dose for wednesday, Luvox 200 mg p.o. at bedtime, and BuSpar 5 mg p.o. twice daily for anxiety. lithobid 450 mg hs for mood stabilization - Hydroxyzine 25 mg p.o. every 6 hours PRN for anxiety -NRT - not needed as patient does not smoke -SW on board for discharge planning. Encourage patient to participate in groups to work on coping skills. at this time it is believed that her previous [facility] will not allow her back. [facility] of [facility] placement and [facility] wants patient to screen for rehab.
[2024-11-14 12:41] LABS: Glucose,Whole Blood 83 mg/dL (70-110)
[2024-11-14 17:34] LABS: Glucose,Whole Blood 134 mg/dL (70-110)
[2024-11-14] MEDS: ONDANSETRON ODT 4 MG TAB PO PRN (19:09)
[2024-11-14 20:17] LABS: Glucose,Whole Blood 108 mg/dL (70-110)
[2024-11-15 04:54] LABS: Influenza A Not Detected (Not Detectd); Influenza B Not Detected (Not Detectd); RSV Not Detected (Not Detectd)
[2024-11-15 07:43] LABS: Glucose,Whole Blood 124 mg/dL (70-110)
[2024-11-15] MEDS: NYSTATIN 100,000 UNIT/GM POWD 15 GM TOPICAL PRN (10:21)
--- NOTE | 2024-11-15 10:30 | P.PN ---
Progress Note - Text Progress Note Date: 11/15/24 Interval History: Patient was seen wandering the hallways today, she was agreeable to speak to pierre palencia. Patient appears to have mild improvement in her hygiene and grooming today. She expressed issues with her lithium, claims that it is making her feel dizzy. She was agreeable to have it changed to Depakote for tonight instead as she tolerated that well in the past. She states that her mood is improving, she appears to be more cooperative, more active on the unit. Claims that she has been going to some groups. Continues to be fairly superficial limited insight. Claims that she slept fairly last night. Denies any depression or anxiety at this time. Claims that she has been eating well. Denies any suicidal homicidal ideations intent or plan denies any auditory or visual hallucinations. Denies any issues with her medications or side effects MENTAL STATUS EXAM: General Appearance: Patient appears to be older than stated age, is alert, directable, and attempts to cooperate. Hygiene and grooming improving mildly. She is obese. She is wearing reading glasses Behavior: Patient is laying in her bed without any agitated behavior. Attempts to cooperate Speech: Patient's speech is fluent and nonpressured. Fairly concrete Mood/Affect: Patient reports their mood is "ok" affect is congruent and constricted. Suicidality/Homicidality: Patient denies having any homicidal ideation intent or plan. Denies any suicidal ideations intent or plan Perceptions: Patient denies any current visual hallucinations, denies any current auditory hallucinations Though content/process: There is no evidence of any delusional thought content and thought process is linear and goal-directed. [place] Memory and concentration: AOX3, grossly intact for the purposes of this session Judgment and insight: Chronically poor/limited, improving mildly IMPRESSIONS: Schizoaffective disorder Anxiety disorder, unspecified borderline personality disorder History of cocaine use disorder, in early remission PLAN: -Patient is admitted under voluntary status to [facility] for stabilization of psychiatric symptoms and safety. Patient has signed adult voluntary form and medication consent and is placed in patient's chart. -Medications : increase frequency of Haldol decanoate, 50 mg IM last given 11/06, will schedule next dose for wednesday, Luvox 200 mg p.o. at bedtime, and BuSpar 5 mg p.o. twice daily for anxiety. Change lithobid to Depakote ER 500 mg nightly for mood stabilization - Hydroxyzine 25 mg p.o. every 6 hours PRN for anxiety -NRT - not needed as patient does not smoke -SW on board for discharge planning. Encourage patient to participate in groups to work on coping skills. at this time it is believed that her previous care home will not allow her back. [facility] care [facility] placement and [facility] wants patient to screen for rehab.
[2024-11-15 12:41] LABS: Glucose,Whole Blood 93 mg/dL (70-110)
[2024-11-15 18:00] LABS: Glucose,Whole Blood 109 mg/dL (70-110)
[2024-11-15 20:00] LABS: Glucose,Whole Blood 181 mg/dL (70-110)
[2024-11-15] MEDS: DIVALPROEX ER 500 MG TAB.ER.24H PO SCH (20:21)
[2024-11-16 07:50] LABS: Glucose,Whole Blood 139 mg/dL (70-110)
[2024-11-16] MEDS: NON FORMULARY DRUG (Dulaglutide [Trulicity] 1.5 MG/0.5 ML Each) SQ SCH (09:32)
--- NOTE | 2024-11-16 11:18 | P.PN ---
Progress Note - Text Progress Note Date: 11/16/24 Interval History: Patient was seen wandering the hallways today. Patient was agreeable to speak to personal lines underwriter today. She claims that she feels that she is ready for discharge. Denies any issues with her mood or anxiety at this time. Asked several questions about why she is not allowed back at the previous assisted. She has limited insight and judgment. She was also requesting to be discharged to her sister's house instead or an out of County assisted. She claims that she will call her guardian today and ask why she cannot go. She appears to be more visible on the unit trying to go to some groups. Body odor appears to be improving, less disheveled today. Has been taking her medications not reporting any issues. Claims that she slept fairly last night eating well. Denies any suicidal homicidal ideations intent or plan denies any auditory or visual hallucinations. Denies any issues with her medications or side effects MENTAL STATUS EXAM: General Appearance: Patient appears to be older than stated age, is alert, directable, and attempts to cooperate. Hygiene and grooming improving mildly. She is obese. She is wearing reading glasses Behavior: Patient is laying in her bed without any agitated behavior. Attempts to cooperate Speech: Patient's speech is fluent and nonpressured. Fairly concrete, improving mildly Mood/Affect: Patient reports their mood is "good" affect is congruent and constricted. Suicidality/Homicidality: Patient denies having any homicidal ideation intent or plan. Denies any suicidal ideations intent or plan Perceptions: Patient denies any current visual hallucinations, denies any current auditory hallucinations Though content/process: There is no evidence of any delusional thought content and thought process is linear and goal-directed. [place], improving mild Memory and concentration: AOX3, grossly intact for the purposes of this session Judgment and insight: Chronically poor/limited, improving mildly IMPRESSIONS: Schizoaffective disorder Anxiety disorder, unspecified borderline personality disorder History of cocaine use disorder, in early remission PLAN: -Patient is admitted under voluntary status to MHU for stabilization of psychiatric symptoms and safety. Patient has signed adult voluntary form and medication consent and is placed in patient's chart. -Medications : increase frequency of Haldol decanoate, 50 mg IM last given 11/06/2024, will schedule next dose for wednesday, Luvox 200 mg p.o. at bedtime, and BuSpar 5 mg p.o. twice daily for anxiety. Depakote ER 500 mg nightly for mood stabilization - Hydroxyzine 25 mg p.o. every 6 hours PRN for anxiety -NRT - not needed as patient does not smoke -SW on board for discharge planning. Encourage patient to participate in groups to work on coping skills. at this time her previous assisted will not allow her back. [facility] are not allowing patient to return to [facility] and want patient to go to [facility] placement. patient was declined for rehab.
[2024-11-16 12:20] LABS: Glucose,Whole Blood 114 mg/dL (70-110)
[2024-11-16 17:43] LABS: Glucose,Whole Blood 110 mg/dL (70-110)
[2024-11-16 20:15] LABS: Glucose,Whole Blood 129 mg/dL (70-110)
[2024-11-17 08:01] LABS: Glucose,Whole Blood 134 mg/dL (70-110)
[2024-11-17] MEDS: HALOPERIDOL DECANOATE 50 MG/ML 1 ML VIAL IM SCH (08:43)
--- NOTE | 2024-11-17 11:11 | P.PN ---
Progress Note - Text Progress Note Date: 11/17/24 Interval History: Patient was seen wandering the hallways today. Patient was agreeable to speak to service writer. She continues to be mainly focused on discharge. Claims that she is feeling well today. Claims that she did find it difficult to initiate sleep last night only slept about 4 or 5 hours. She asked if she could again stay with her sister or be in a different senior living. It was explained that [facility] and her guardian would have to approve of this. She claims that she is try to go to groups, hygiene and grooming improving. Appears to be more cooperative and directable. States that she is eating well. Denies any suicidal homicidal ideations intent or plan denies any auditory or visual hallucinations. Denies any issues with her medications or side effects MENTAL STATUS EXAM: General Appearance: Patient appears to be older than stated age, is alert, directable, and attempts to cooperate. Hygiene and grooming improving mildly. She is obese. She is wearing reading glasses Behavior: Patient is laying in her bed without any agitated behavior. Attempts to cooperate Speech: Patient's speech is fluent and nonpressured. Fairly concrete, improving mildly Mood/Affect: Patient reports their mood is "ok" affect is congruent and constricted. Improving mildly Suicidality/Homicidality: Patient denies having any homicidal ideation intent or plan. Denies any suicidal ideations intent or plan Perceptions: Patient denies any current visual hallucinations, denies any current auditory hallucinations Though content/process: There is no evidence of any delusional thought content and thought process is linear and goal-directed. [place], improving mild Memory and concentration: AOX3, grossly intact for the purposes of this session Judgment and insight: Chronically poor/limited, improving mildly IMPRESSIONS: Schizoaffective disorder Anxiety disorder, unspecified borderline personality disorder History of cocaine use disorder, in early remission PLAN: -Patient is admitted under voluntary status to MHU for stabilization of psychiatric symptoms and safety. Patient has signed adult voluntary form and medication consent and is placed in patient's chart. -Medications : Haldol decanoate 50 mg IM q14d, last given 11/17/2024, Luvox 200 mg p.o. at bedtime, and BuSpar 5 mg p.o. twice daily for anxiety. Depakote ER 500 mg nightly for mood stabilization. start trazodone 50 mg qhs for insomnia. - Hydroxyzine 25 mg p.o. every 6 hours PRN for anxiety -NRT - not needed as patient does not smoke -SW on board for discharge planning. Encourage patient to participate in groups to work on coping skills. at this time her previous senior living will not allow her back. [facility] are not allowing patient to return to [facility]. [facility] currently looking at in [facility] senior living placement. patient was declined for rehab.
[2024-11-17 12:43] LABS: Glucose,Whole Blood 111 mg/dL (70-110)
[2024-11-17 17:24] LABS: Glucose,Whole Blood 104 mg/dL (70-110)
[2024-11-17 20:04] LABS: Glucose,Whole Blood 169 mg/dL (70-110)
[2024-11-17] MEDS: traZODone HCL 50 MG TAB PO SCH (20:48)
[2024-11-18 12:29] LABS: Glucose,Whole Blood 102 mg/dL (70-110)
--- NOTE | 2024-11-18 13:10 | P.PN ---
Subjective Progress Note Date: 11/18/24 Principal diagnosis: Schizoaffective Patient was seen wandering the hallways today. Patient was agreeable to speak to creative services writer. She continues to be mainly focused on discharge and is awaiting placement. Claims that she is feeling well today. Claims that she slept well last night and did not need the trazodone. She claims that she is doing better at going to groups, hygiene and grooming improving. Appears to be cooperative and directable. States that she is eating well with no constipation dry mouth or dizziness. Denies any suicidal homicidal ideations intent or plan denies any auditory or visual hallucinations. Denies any issues with her medications or side effects MENTAL STATUS EXAM: General Appearance: Patient appears to be older than stated age, is alert, d irectable, and attempts to cooperate. Hygiene and grooming improving mildly. She is obese. She is wearing reading glasses Behavior: Patient is laying in her bed without any agitated behavior. Attempts to cooperate Speech: Patient's speech is fluent and nonpressured. Fairly concrete, improving mildly Mood/Affect: Patient reports their mood is "ok" affect is congruent and constricted. Improving mildly Suicidality/Homicidality: Patient denies having any homicidal ideation intent or plan. Denies any suicidal ideations intent or plan Perceptions: Patient denies any current visual hallucinations, denies any current auditory hallucinations Though content/process: There is no evidence of any delusional thought content and thought process is linear and goal-directed. [place], improving mild Memory and concentration: AOX3, grossly intact for the purposes of this session Judgment and insight: Chronically poor/limited, improving mildly IMPRESSIONS: Schizoaffective disorder Anxiety disorder, unspecified borderline personality disorder History of cocaine use disorder, in early remission PLAN: No change -Patient is admitted under voluntary status to MHU for stabilization of psychiatric symptoms and safety. Patient has signed adult voluntary form and medication consent and is placed in patient's chart. -Medications : Haldol decanoate 50 mg IM q14d, last given 11/17/2024, Luvox 200 mg p.o. at bedtime, and BuSpar 5 mg p.o. twice daily for anxiety. Depakote ER 500 mg nightly for mood stabilization. start trazodone 50 mg qhs for insomnia. - Hydroxyzine 25 mg p.o. every 6 hours PRN for anxiety -NRT - not needed as patient does not smoke -SW on board for discharge planning. Encourage patient to participate in groups to work on coping skills. at this time her previous detention will not allow her back. [facility] are not allowing patient to return to [facility]. [facility] currently looking at in [facility] detention placement. patient was declined for rehab. Objective - Vital Signs Vital signs: Vital Signs Temp 97.5 F L 11/18/24 09:54 Pulse 84 11/18/24 09:54 Resp 16 11/18/24 09:54 BP 111/56 11/18/24 09:54 Pulse Ox 96 11/18/24 09:54 FiO2 - Labs CBC & Chem 7: 11/12/24 08:21 11/12/24 08:21 Labs: Abnormal Lab Results - Last 24 Hours (Table) 11/17/24 Range/Units 20:00 POC Glucose (mg/dL) 169 H (70-110) mg/dL
[2024-11-18 15:27] LABS: Glucose,Whole Blood 147 mg/dL (70-110)
[2024-11-18 17:29] LABS: Glucose,Whole Blood 135 mg/dL (70-110)
[2024-11-18 20:13] LABS: Glucose,Whole Blood 122 mg/dL (70-110)
[2024-11-18 22:11] LABS: Glucose,Whole Blood 150 mg/dL (70-110)
[2024-11-19 08:02] LABS: Glucose,Whole Blood 118 mg/dL (70-110)
[2024-11-19 12:44] LABS: Glucose,Whole Blood 93 mg/dL (70-110)
[2024-11-19 14:39] LABS: Glucose,Whole Blood 132 mg/dL (70-110)
[2024-11-19 17:12] LABS: Glucose,Whole Blood 113 mg/dL (70-110)
[2024-11-19 20:16] LABS: Glucose,Whole Blood 125 mg/dL (70-110)
[2024-11-20 08:04] LABS: Glucose,Whole Blood 143 mg/dL (70-110)
--- NOTE | 2024-11-20 11:49 | P.PN ---
Progress Note - Text Progress Note Date: 11/20/24 Interval History: Patient was seen wandering the hallways today. Patient claims that she is doing fair today. Denied any issues over the weekend. Continues to be mainly focused on discharge. Continues to ask about alternatives to going to a fpc including going to a motel or going to her sisters which the guardian did not approve of. She continues to have very limited insight, impulsivity has been improving. Patient is more pleasant on the unit going to some groups. Hygiene and grooming are improving. Appears to be more cooperative and directable. Denied any issues with sleep. States that she is eating well. Denies any suicidal homicidal ideations intent or plan denies any auditory or visual hallucinations. Denies any issues with her medications or side effects MENTAL STATUS EXAM: General Appearance: Patient appears to be older than stated age, is alert, directable, and attempts to cooperate. Hygiene and grooming improving mildly. She is obese. She is wearing reading glasses Behavior: Patient is laying in her bed without any agitated behavior. Attempts to cooperate Speech: Patient's speech is fluent and nonpressured. Fairly concrete, improving mildly Mood/Affect: Patient reports their mood is "fine" affect is congruent and Improving mildly Suicidality/Homicidality: Patient denies having any homicidal ideation intent or plan. Denies any suicidal ideations intent or plan Perceptions: Patient denies any current visual hallucinations, denies any curre nt auditory hallucinations Though content/process: There is no evidence of any delusional thought content and thought process is linear and goal-directed. [place], focused on discharge planning. Memory and concentration: AOX3, grossly intact for the purposes of this session Judgment and insight: Chronically poor/limited, improving mildly IMPRESSIONS: Schizoaffective disorder Anxiety disorder, unspecified borderline personality disorder History of cocaine use disorder, in early remission PLAN: -Patient is admitted under voluntary status to MHU for stabilization of psychiatric symptoms and safety. Patient has signed adult voluntary form and medication consent and is placed in patient's chart. -Medications : Haldol decanoate 50 mg IM q14d, last given 11/17/2024, Luvox 200 mg p.o. at bedtime, BuSpar 5 mg p.o. twice daily for anxiety. Depakote ER 500 mg nightly for mood stabilization. trazodone 50 mg qhs for insomnia. - Hydroxyzine 25 mg p.o. every 6 hours PRN for anxiety -NRT - not needed as patient does not smoke -SW on board for discharge planning. Encourage patient to participate in groups to work on coping skills. at this time her previous fpc will not allow her back. [facility] are not allowing patient to return to [facility]. [facility] currently looking at in [facility] fpc placement. patient was declined for rehab.
[2024-11-20 12:41] LABS: Glucose,Whole Blood 112 mg/dL (70-110)
[2024-11-20 17:45] LABS: Glucose,Whole Blood 102 mg/dL (70-110)
[2024-11-20 19:56] LABS: Glucose,Whole Blood 146 mg/dL (70-110)
[2024-11-21] MEDS ORDERED: HYDROCORTISONE 1% CREAM 30 GM TUBE TOPICAL PRN
[2024-11-21 08:01] LABS: Glucose,Whole Blood 145 mg/dL (70-110)
[2024-11-21] MEDS: AMMONIUM LACTATE 12% LOTION 225 GM BTL TOPICAL SCH (10:47)
--- NOTE | 2024-11-21 11:25 | P.PN ---
Progress Note - Text Progress Note Date: 11/21/24 Interval History: Patient was seen wandering the hallways today. Patient claims that she is doing fair today, denied any significant issues overnight. Claims that she is doing well today, focused on discharge. Continues to ask why she is not allowed to go to her sister's house. States that she slept fairly not having any issues with medications has been going to some groups hygiene and grooming improving. Appears to be more cooperative and directable. Denied any issues with sleep. States that she is eating well. Denies any suicidal homicidal ideations intent or plan denies any auditory or visual hallucinations. Denies any issues with her medications or side effects MENTAL STATUS EXAM: General Appearance: Patient appears to be older than stated age, is alert, directable, and attempts to cooperate. Hygiene and grooming improving mildly. She is obese. She is wearing reading glasses Behavior: Patient is laying in her bed without any agitated behavior. Attempts to cooperate Speech: Patient's speech is fluent and nonpressured. Fairly concrete, improving mildly Mood/Affect: Patient reports their mood is "fine" affect is congruent and Improving mildly Suicidality/Homicidality: Patient denies having any homicidal ideation intent or plan. Denies any suicidal ideations intent or plan Perceptions: Patient denies any current visual hallucinations, denies any current auditory hallucinations Though content/process: There is no evidence of any delusional thought content a nd thought process is linear and goal-directed. [place], focused on discharge planning. Memory and concentration: AOX3, grossly intact for the purposes of this session Judgment and insight: Chronically poor/limited, improving mildly IMPRESSIONS: Schizoaffective disorder Anxiety disorder, unspecified borderline personality disorder History of cocaine use disorder, in early remission PLAN: -Patient is admitted under voluntary status to MHU for stabilization of psychiatric symptoms and safety. Patient has signed adult voluntary form and medication consent and is placed in patient's chart. -Medications : Haldol decanoate 50 mg IM q14d, last given 11/17/2024, next dose will due on 12/01, Luvox 200 mg p.o. at bedtime, BuSpar 5 mg p.o. twice daily for anxiety. Depakote ER 500 mg nightly for mood stabilization. trazodone 50 mg qhs for insomnia. - Hydroxyzine 25 mg p.o. every 6 hours PRN for anxiety -NRT - not needed as patient does not smoke -SW on board for discharge planning. Encourage patient to participate in groups to work on coping skills. at this time her previous fdc will not allow her back. [facility] are not allowing patient to return to [facility]. [facility] currently looking at in [facility] fdc placement. patient was declined for rehab.
[2024-11-21 12:43] LABS: Glucose,Whole Blood 117 mg/dL (70-110)
[2024-11-21 17:09] LABS: Glucose,Whole Blood 164 mg/dL (70-110)
[2024-11-21 19:53] LABS: Glucose,Whole Blood 146 mg/dL (70-110)
[2024-11-22 07:58] LABS: Glucose,Whole Blood 169 mg/dL (70-110)
--- NOTE | 2024-11-22 11:10 | P.PN ---
Progress Note - Text Progress Note Date: 11/22/24 Interval History: Patient was seen wandering the hallways today. She has been attending groups. Patient claims that she is doing good today. Denies any overnight issues. She continues to be focused on discharge. Continues to ask if they have a snf bed available for her. States that she slept fairly not having any issues with medications has been going to some groups hygiene and grooming improving. Appears to be more cooperative and directable. Denied any issues with sleep. States that she is eating well. Denies any suicidal homicidal ideations intent or plan denies any auditory or visual hallucinations. Denies any issues with her medications or side effects MENTAL STATUS EXAM: General Appearance: Patient appears to be older than stated age, is alert, directable, and attempts to cooperate. Hygiene and grooming improving mildly. She is obese. She is wearing reading glasses Behavior: Patient is laying in her bed without any agitated behavior. Attempts to cooperate, improving Speech: Patient's speech is fluent and nonpressured. Fairly concrete, improving mildly Mood/Affect: Patient reports their mood is "good" affect is congruent and Improving mildly Suicidality/Homicidality: Patient denies having any homicidal ideation intent or plan. Denies any suicidal ideations intent or plan Perceptions: Patient denies any current visual hallucinations, denies any current auditory hallucinations Though content/process: There is no evidence of any delusional thought content and thought process is linear and goal-directed. [place], focused on discharge planning. Memory and concentration: AOX3, grossly intact for the purposes of this session Judgment and insight: Chronically poor/limited, improving mildly IMPRESSIONS: Schizoaffective disorder Anxiety disorder, unspecified borderline personality disorder History of cocaine use disorder, in early remission PLAN: -Patient is admitted under voluntary status to MHU for stabilization of psychiatric symptoms and safety. Patient has signed adult voluntary form and medication consent and is placed in patient's chart. -Medications : Haldol decanoate 50 mg IM q14d, last given 11/17/2024, next dose will due on 12/01, Luvox 200 mg p.o. at bedtime, BuSpar 5 mg p.o. twice daily for anxiety. Depakote ER 500 mg nightly for mood stabilization. trazodone 50 mg qhs for insomnia. - Hydroxyzine 25 mg p.o. every 6 hours PRN for anxiety -NRT - not needed as patient does not smoke -SW on board for discharge planning. Encourage patient to participate in groups to work on coping skills. at this time her previous snf will not allow her back. [facility] are not allowing patient to return to [facility]. [facility] looking [facility] in [facility] snf placement. patient was declined for rehab.
[2024-11-22 12:42] LABS: Glucose,Whole Blood 167 mg/dL (70-110)
[2024-11-22 17:22] LABS: Glucose,Whole Blood 140 mg/dL (70-110)
[2024-11-22 20:05] LABS: Glucose,Whole Blood 119 mg/dL (70-110)
[2024-11-23 07:55] LABS: Glucose,Whole Blood 149 mg/dL (70-110)
[2024-11-23 09:41] VITALS: BP 117/68; PULSE 70; RESP 20; TEMP 97.1
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
== END 2024-11-23 11:25 | disposition home or self-care (01) | DRG 761 ==
LOC: EC 21:55 → 3MHU 11-11 02:00
PROVIDERS: ADMIT Psychiatry & Neurology Psychiatry; ATTEND Psychiatry & Neurology Psychiatry
DX: F25.1 Schizoaffective disorder, depressive type (principal); F31.9 Bipolar disorder, unspecified; F41.9 Anxiety disorder, unspecified; F14.11 Cocaine abuse, in remission; E11.9 Type 2 diabetes mellitus without complications; D57.3 Sickle-cell trait; F60.3 Borderline personality disorder; G40.909 Epilepsy, unspecified, not intractable, without status epilepticus; G47.00 Insomnia, unspecified; I11.0 Hypertensive heart disease with heart failure; I50.9 Heart failure, unspecified; J44.89 Other specified chronic obstructive pulmonary disease; K21.9 Gastro-esophageal reflux disease without esophagitis; K51.911 Ulcerative colitis, unspecified with rectal bleeding; K74.60 Unspecified cirrhosis of liver; M41.9 Scoliosis, unspecified; M79.7 Fibromyalgia; R45.850 Homicidal ideations; R45.851 Suicidal ideations; Z79.4 Long term (current) use of insulin; Z79.82 Long term (current) use of aspirin; N39.0 Urinary tract infection, site not specified; M54.2 Cervicalgia; M54.50 Low back pain, unspecified; G89.29 Other chronic pain; G43.909 Migraine, unspecified, not intractable, without status migrainosus; M15.9 Polyosteoarthritis, unspecified; L40.9 Psoriasis, unspecified; F81.9 Developmental disorder of scholastic skills, unspecified; M10.9 Gout, unspecified; Z79.84 Long term (current) use of oral hypoglycemic drugs; Z79.899 Other long term (current) drug therapy; Z86.32 Personal history of gestational diabetes; Z87.891 Personal history of nicotine dependence; Z88.0 Allergy status to penicillin; Z91.51 Personal history of suicidal behavior; Z90.721 Acquired absence of ovaries, unilateral; Z28.21 Immunization not carried out because of patient refusal; Z71.51 Drug abuse counseling and surveillance of drug abuser; Z71.89 Other specified counseling; Z87.19 Personal history of other diseases of the digestive system; Z87.01 Personal history of pneumonia (recurrent); Z88.8 Allergy status to other drugs, medicaments and biological substances; Z88.1 Allergy status to other antibiotic agents; Z91.041 Radiographic dye allergy status
CPT/HCPCS: 71046; 80053; 80061; 80306; 81003; 81025; 82075; 82248; 83036; 84443; 85025; 87636; 87651; 99285

== ENCOUNTER 2024-11-27 09:55 | Inpatient (IN) | payer MEDICAID, OTHER ==
--- NOTE | 2024-11-27 12:05 | ED ---
General Adult HPI - General Chief complaint: Psychiatric Symptoms Stated complaint: SI Time Seen by Provider: 11/27/24 10:41 Source: patient Mode of arrival: ambulatory Limitations: no limitations - History of Present Illness Initial comments: Dictation was produced using [employer] dictation software. please excuse any grammatical, word or spelling errors. Chief Complaint: 44-year-old female presents to the ER for suicidal ideation History of Present Illness: Patient 44-year-old female with history of psychiatric illness presents to the emergency department for suicidal ideation. Patient threatening to overdose on her psychiatric medications. Denies any pain complaints. Denies any homicidal ideation. No visual auditory hallucinations. The ROS documented in this emergency department record has been reviewed and confirmed by me. Those systems with pertinent positive or negative responses have been documented in the HPI. All other systems are other negative and/or noncontributory. - Related Data Previous Rx's Medication Instructions Recorded INSULIN LISPRO (HumaLOG) [HumaLOG] 0 unit SQ ACHS each 10/20/24 Acetaminophen Tab [Tylenol] 650 mg PO Q4HR PRN tab 11/23/24 Albuterol Inhaler [Ventolin Hfa 2 puff INHALATION RT-Q6H PRN 30 11/23/24 Inhaler] Days #1 each Ammonium Lactate Lotion 1 applic TOPICAL BID 30 Days #1 11/23/24 [Lac-Hydrin 12% Lotion] each Aspirin EC [Ecotrin Low Dose] 81 mg PO DAILY 30 Days #30 tab 11/23/24 Atorvastatin [Lipitor] 40 mg PO HS 30 Days #30 tab 11/23/24 Dapagliflozin Propanediol [Farxiga] 10 mg PO DAILY 30 Days #30 tab 11/23/24 Divalproex ER [Depakote ER] 500 mg PO HS 30 Days #30 tab 11/23/24 Haloperidol Decanoate [Haldol D] 50 mg IM Q14D #1 each 11/23/24 Ibuprofen [Motrin] 600 mg PO Q6HR PRN tab 11/23/24 Insulin Glargine (Lantus) [Lantus 20 unit SQ DAILY 30 Days #1 each 11/23/24 Vial] Nystatin 100,000 Unit/gm Powd 1 applic TOPICAL BID PRN 30 Days 11/23/24 [Mycostatin Powder] #1 each Omeprazole 20 mg PO DAILY 30 Days #30 tab 11/23/24 Spironolactone [Aldactone] 25 mg PO DAILY 30 Days #30 tab 11/23/24 busPIRone HCl [Buspar] 5 mg PO BID 30 Days #60 tab 11/23/24 fluvoxaMINE [Luvox] 200 mg PO HS 30 Days #120 tab 11/23/24 hydrOXYzine HCL [Atarax] 25 mg PO BID PRN 30 Days #60 tab 11/23/24 lisinopriL [Zestril] 2.5 mg PO DAILY 30 Days #30 tab 11/23/24 metFORMIN HCL [Glucophage] 1,000 mg PO BID-W/MEALS 30 Days 11/23/24 #120 tab traZODone HCL [Desyrel] 50 mg PO HS 30 Days #30 tab 11/23/24 Allergies Allergy/AdvReac Type Severity Reaction Status Date / Time Iodinated Contrast Media Allergy Anaphylaxis Verified 11/27/24 10:14 [Iodinated Contrast Media - IV Dye] lacosamide [From Vimpat] Allergy Anaphylaxis Verified 11/27/24 10:14 peanut Allergy Anaphylaxis Verified 11/27/24 10:14 Penicillins Allergy Anaphylaxis Verified 11/27/24 10:14 shellfish derived Allergy swelling Verified 11/27/24 10:14 all over body cephalexin monohydrate AdvReac Rash, Verified 11/27/24 10:14 [From Keflex] Nausea, Vomiting & Diarrhea trazodone AdvReac bp Verified 11/27/24 10:14 issues/dizziness Review of Systems ROS Statement: Those systems with pertinent positive or pertinent negative responses have been documented in the HPI. ROS Other: All systems not noted in ROS Statement are negative. Past Medical History Past Medical History: Asthma, Heart Failure, COPD, Diabetes Mellitus, Fibromyalgia, GERD/Reflux, GI Bleed, Hypertension, Liver Disease, Osteoarthritis (OA), Pneumonia, Seizure Disorder, Skin Disorder Additional Past Medical History / Comment(s): Bronchitis, gestational diabetes, seizures with last one 01/2024, sickle cell trait, liver cirrhosis, anemia, chrons, IBS, ulcerative colitis, lowr GI bleed, hemorrhoids, constipation, psoriasis, migraines, chronic low back and cervical pain, scoliosis, arhtritis in multiple joints, gout bilateral feet, History of Any Multi-Drug Resistant Organisms: None Reported Past Surgical History: Cholecystectomy, Orthopedic Surgery Additional Past Surgical History / Comment(s): L oophorectomy d/t cyst, D&C, colonoscopy, L carpal tunnel release, Past Anesthesia/Blood Transfusion Reactions: Motion Sickness, Postoperative Nausea & Vomiting (PONV) Past Psychological History: Anxiety, Bipolar, Depression, Schizophrenia Smoking Status: Former smoker Past Alcohol Use History: None Reported Past Drug Use History: Cocaine - Past Family History Mother History Unknown: Yes Family Medical History: Cancer Additional Family Medical History / Comment(s): Mother had breast cancer and metnal illness She is living. Father Family Medical History: Cancer Additional Family Medical History / Comment(s): Father is . He had agent orange exposure. He had liver cancer, bowel to brain cancer. General Exam - General Exam Comments Initial Comments: General: Well-appearing, nontoxic, no acute distress. Head: Normocephalic, atraumatic Eyes: PERRLA, EOMI ENT: Airway patent Chest: Nonlabored breathing Skin: No visual rash, normal skin tone Neuro: Alert and oriented 3 Musculoskeletal: No gross abnormalities Limitations: no limitations Course Vital Signs 11/27/24 11/27/24 11/27/24 10:11 10:14 13:01 Temperature 98.1 F Pulse Rate 74 78 86 Respiratory 18 20 16 Rate Blood Pressure 135/78 130/68 130/68 O2 Sat by Pulse 96 98 98 Oximetry Medical Decision Making - Medical Decision Making Was pt. sent in by a medical professional or institution ([facility], [employer], urgent care, hospital, or shelter...) When possible be specific @ -No Did you speak to anyone other than the patient for history (EMS, parent, family, police, friend...)? What history was obtained from this source @ -No Did you review nursing and triage notes (agree or disagree)? Why? @ -I reviewed and agree with nursing and triage notes Were old charts reviewed (outside hosp., previous admission, EMS record, old EKG, old radiological studies, urgent care reports/EKG's, shelter records)? Report findings @ -No old charts were reviewed Differential Diagnosis (chest pain, altered mental status, abdominal pain women, abdominal pain men, vaginal bleeding, musculoskeletal, weakness, fever, dyspnea, syncope, headache, dizziness, GI bleed, back pain, seizure, CVA, palpatations, mental health)? @ -Differential Mental Health: Depression, anxiety, bipolar, psychosis, schizophrenia, borderline personality, situational depression, adjustment disorder, behavioral disorder, brain tumor, malingering, substance abuse, encephalopathy, medication reaction, dementia, hypothyroidism, degenerative neurologic disorder, lupus.... This is not meant to be all-inclusive list EKG interpreted by me (3pts min.). @ -None done X-rays interpreted by me (1pt min.). @ -None done CT interpreted by me (1pt min.). @ -None done U/S interpreted by me (1pt. min.). @ -None done What testing was considered but not performed or refused? (CT, X-rays, U/S, labs)? Why? @ -None What meds were considered but not given or refused? Why? @ -None Was smoking cessation discussed for >3mins.? @ -No Were there social determinants of health that impacted care today? How? (Homelessness, low income, unemployed, alcoholism, drug addiction, transportation, low edu. Level, literacy, decrease access to med. care, senior living, rehab)? @ -No Was there de-escalation of care discussed even if they declined (Discuss DNR or withdrawal of care, Hospice)? DNR status @ -No What co-morbidities impacted this encounter? (DM, HTN, Smoking, COPD, CAD, Cancer, CVA, ARF, Chemo, Hep., AIDS, mental health diagnosis, sleep apnea, morbid obesity)? @ -None Was patient admitted / discharged? Hospital course, mention meds given and route, prescriptions, significant lab abnormalities, going to OR and other pertinent info. @ -44-year-old female medically cleared for EPS evaluation. Patient presents with suicidal ideation with detailed plan. Vital signs stable. Physical examination benign. Patient evaluated by EPS and will be admitted to inpatient psych Did you discuss the management of the patient with other professionals (professionals i.e. , PA, [employer], lab, RT, psych nurse, social worker clinical, museum guide, teacher, housing officer, residential case manager)? Give summary @ -See above Was critical care preformed (if so, how long)? @ -No Undiagnosed new problem with uncertain prognosis? @ -No Drug Therapy requiring intensive monitoring for toxicity (Heparin, Nitro, Insulin, Cardizem)? @ -No Were any procedures done? @ -No Diagnosis/symptom? Acute, or Chronic, or Acute on Chronic? Uncomplicated (without systemic symptoms) or Complicated (systemic symptoms)? @ -Suicidal ideation Side effects of treatment? @ -No Exacerbation, Progression, or Severe Exacerbation? @ -No Poses a threat to life or bodily function? How? (Chest pain, USA, LA, pneumonia, PE, COPD, DKA, ARF, appy, cholecystitis, CVA, Diverticulitis, Homicidal, Suicidal, threat to staff... and all critical care pts) @ -yes - Lab Data Lab Results 11/27/24 Range/Units 12:40 Urine Opiates Screen Not Detected (NotDetected) Ur Oxycodone Screen Not Detected (NotDetected) Urine Methadone Screen Not Detected (NotDetected) Ur Barbiturates Screen Not Detected (NotDetected) U Tricyclic Antidepress Not Detected (NotDetected) Ur Phencyclidine Scrn Not Detected (NotDetected) Ur Amphetamines Screen Not Detected (NotDetected) U Methamphetamines Scrn Not Detected (NotDetected) U Benzodiazepines Scrn Not Detected (NotDetected) Urine Cocaine Screen Detected H (NotDetected) U Marijuana (THC) Screen Not Detected (NotDetected) Disposition Clinical Impression: Suicidal ideation Disposition: TRANSFER TO PSYCH HOSP/UNIT Condition: Fair Referrals: Evelyn Blas MD [Primary Care Provider] - 1-2 days Decision Time: 14:20
[2024-11-27 13:36] LABS: Amphetamine Screen,Urine Not Detected (NotDetected); Barbiturate Screen,Urine Not Detected (NotDetected); Benzodiazepines Screen,Urine Not Detected (NotDetected); Cocaine Screen,Urine Detected (NotDetected); Methadone Screen, Urine Not Detected (NotDetected); Opiate Screen,Urine Not Detected (NotDetected); Oxycodone Screen, Urine Not Detected (NotDetected); Phencyclidine Screen,Urine Not Detected (NotDetected); Tricyclic Antidepressant,Urine Not Detected (NotDetected); Urn Cannabinoid Scrn Not Detected (NotDetected)
[2024-11-27 15:46] LABS: Influenza A Not Detected (Not Detectd); Influenza B Not Detected (Not Detectd); RSV Not Detected (Not Detectd)
[2024-11-27] MEDS ORDERED: NYSTATIN 100,000 UNIT/GM POWD 15 GM TOPICAL PRN (17:08)
[2024-11-27] MEDS ORDERED: ALBUTEROL INHALER 60 PUFF/8 GM INHALER (MHU) INHALATION PRN (17:08)
[2024-11-27] MEDS ORDERED: haloperidoL 5 MG TAB PO PRN (17:13)
[2024-11-27] MEDS ORDERED: HALOPERIDOL LACTATE 5 MG/ML 1 ML VIAL IM PRN (17:13)
[2024-11-27] MEDS ORDERED: MAGNESIUM HYDROXIDE 2,400 MG/30 ML CUP PO PRN (17:13)
[2024-11-27 18:06] LABS: Glucose,Whole Blood 177 mg/dL (70-110)
[2024-11-27] MEDS: INSULIN LISPRO (HumaLOG) 100 UNIT/ML 10 mL VL SQ SCH (18:09)
[2024-11-27] MEDS: metFORMIN 500 MG TAB PO SCH (18:11)
[2024-11-27 19:00] LABS: Appearance,Urine Clear (Clear); Bilirubin,Urine Negative (Negative); Blood,Urine Negative (Negative); Color,Urine Colorless; Glucose,Urine (UA) Trace (Negative); Ketones,Urine Negative (Negative); Leukocyte Esterase,Urine Negative (Negative); Nitrite,Urine Negative (Negative); PH, Urine 5.5 (5.0-8.0); Protein,Urine Negative (Negative); Specific Gravity,Urine 1.007 (1.001-1.035); Urobilinogen,Urine <2.0 mg/dL (<2.0)
[2024-11-28 07:56] LABS: Glucose,Whole Blood 181 mg/dL (70-110)
[2024-11-28] MEDS: traZODone HCL 50 MG TAB PO SCH (08:54)
[2024-11-28] MEDS: ATORVASTATIN 40 MG TAB PO SCH (08:55)
[2024-11-28] MEDS: AMMONIUM LACTATE 12% LOTION 225 GM BTL TOPICAL SCH (08:55)
[2024-11-28] MEDS: DIVALPROEX ER 500 MG TAB.ER.24H PO SCH (08:56)
[2024-11-28] MEDS: ASPIRIN 81 MG PO SCH (09:26)
[2024-11-28] MEDS: SPIRONOLACTONE 25 MG TAB PO SCH (09:26)
[2024-11-28] MEDS: INSULIN GLARGINE (LANTUS) 100 UNIT/ML SYR SQ SCH (09:26)
[2024-11-28] MEDS: DAPAGLIFLOZIN PROPANEDIOL 10 MG TABLET PO SCH (09:27)
[2024-11-28] MEDS: PANTOPRAZOLE 40 MG TABLET PO SCH (09:27)
[2024-11-28 09:50] LABS: Basophils # (A) 0.04 10*3/uL (0.00-0.10); Basophils % (A) 0.3 %; Eosinophils # (A) 0.53 10*3/uL (0.04-0.35); Eosinophils % (A) 4.3 %; HCT 39.7 % (37.2-46.3); HGB 12.8 g/dL (12.0-15.0); Lymphocytes # (A) 2.12 10*3/uL (0.90-5.00); Lymphocytes % (A) 17.3 %; MCH 27.9 pg (27.0-32.0); MCHC 32.2 g/dL (32.0-37.0); MCV 86.5 fL (80.0-97.0); Mean Platelet Volume 9.9 fL (9.5-12.2); Monocytes # (A) 0.92 10*3/uL (0.20-1.00); Monocytes % (A) 7.5 %; Neutrophils % (A) 70.2 %; Platelet Count 248 10*3/uL (140-440); RBC 4.59 10*6/uL (4.10-5.20); RDW 16.5 % (11.5-14.5); WBC 12.26 10*3/uL (4.50-10.00)
[2024-11-28 10:01] LABS: ALT 24 U/L (4-34); AST 20 U/L (14-36); African American GFR (CKD) >90 (>60 ml/min/1.73 sqM); Albumin 3.8 g/dL (3.5-5.0); Alkaline Phosphatase 99 U/L (38-126); Anion Gap 8 mmol/L; Blood Urea Nitrogen 12 mg/dL (7-17); Calcium 9.4 mg/dL (8.4-10.2); Carbon Dioxide 26 mmol/L (22-30); Chloride 104 mmol/L (98-107); Glucose 172 mg/dL (74-99); Non-African American GFR(CKD) >90 (>60 ml/min/1.73 sqM); Potassium 4.5 mmol/L (3.5-5.1); Sodium 138 mmol/L (137-145); Total Bilirubin 0.5 mg/dL (0.2-1.3); Total Protein 6.9 g/dL (6.3-8.2)
--- NOTE | 2024-11-28 10:40 | P.CONS ---
History of Present Illness - Reason for Consult Consult date: 11/28/24 wound care - History of Present Illness This is a 44-year-old patient being seen on the mental health unit for nonhealing ulcerations to right abdominal fold and left breast fold. At this time patient has no open ulcerations. Patient does have excoriation to the right abdominal fold and the left breast fold. Patient states that she has utilized nystatin cream and silver absorptive sheets and both of them burned she declines to have them utilized at this time. Patient states that this rash comes and goes. Review Of Systems: Constitutional: No fever, no chills, no night sweats. No weight change. No weakness, fatigue or lethargy. No daytime sleepiness. Integumentary:reports wounds, no lesions. No rash or pruritus. No unusual bruising. No change in hair or nails. Physical exam: General Appearance: Alert, cooperative, no distress, appears stated age. Skin: See HPI all other Skin color, texture, tugor normal, no rashes or lesions. Neurologic: Alert oriented x3 Assessment: 1. Nonhealing ulceration other site limited to skin breakdown Plan: 1. Apply zinc barrier cream to the site as needed Thank you for the consultation any questions please contact the wound care center DNP note has been reviewed and discussed with Dr. Viveros and the impression and plan of care has been directed as dictated. Past Medical History Past Medical History: Asthma, Heart Failure, COPD, Diabetes Mellitus, Fibromyalgia, GERD/Reflux, GI Bleed, Hypertension, Liver Disease, Osteoarthritis (OA), Pneumonia, Seizure Disorder, Skin Disorder Additional Past Medical History / Comment(s): Bronchitis, gestational diabetes, seizures with last one 01/2024, sickle cell trait, liver cirrhosis, anemia, chrons, IBS, ulcerative colitis, lowr GI bleed, hemorrhoids, constipation, psoriasis, migraines, chronic low back and cervical pain, scoliosis, arhtritis in multiple joints, gout bilateral feet, History of Any Multi-Drug Resistant Organisms: None Reported Past Surgical History: Cholecystectomy, Orthopedic Surgery Additional Past Surgical History / Comment(s): L oophorectomy d/t cyst, D&C, colonoscopy, L carpal tunnel release, Past Anesthesia/Blood Transfusion Reactions: Motion Sickness, Postoperative Nausea & Vomiting (PONV) Past Psychological History: Anxiety, Bipolar, Depression, Schizophrenia Additional Psychological History / Comment(s): Personality Disorder. She is seen at [facility]. Pt has a learning disability and can read some. She has a [facility] public legal guardian. Smoking Status: Former smoker Past Alcohol Use History: None Reported Additional Past Alcohol Use History / Comment(s): Pt states she has not drank alcohol in 15 years. Past Drug Use History: Cocaine Additional Drug Use History / Comment(s): Pt states she quit crack 1 week ago. UDS positive this admission for cocaine, "I smoked crack". - Past Family History Mother History Unknown: Yes Family Medical History: Cancer Additional Family Medical History / Comment(s): Mother had breast cancer and metnal illness She is living. Father Family Medical History: Cancer Additional Family Medical History / Comment(s): Father is . He had agent orange exposure. He had liver cancer, bowel to brain cancer. Medications and Allergies Home Medications Medication Instructions Recorded Confirmed Type INSULIN LISPRO (HumaLOG) [HumaLOG] 0 unit SQ ACHS each 10/20/24 11/27/24 Rx Acetaminophen Tab [Tylenol] 650 mg PO Q4HR PRN tab 11/23/24 11/27/24 Rx Albuterol Inhaler [Ventolin Hfa 2 puff INHALATION RT-Q6H PRN 30 11/23/24 11/27/24 Rx Inhaler] Days #1 each Ammonium Lactate Lotion 1 applic TOPICAL BID 30 Days #1 11/23/24 11/27/24 Rx [Lac-Hydrin 12% Lotion] each Aspirin EC [Ecotrin Low Dose] 81 mg PO DAILY 30 Days #30 tab 11/23/24 11/27/24 Rx Atorvastatin [Lipitor] 40 mg PO HS 30 Days #30 tab 11/23/24 11/27/24 Rx Dapagliflozin Propanediol [Farxiga] 10 mg PO DAILY 30 Days #30 tab 11/23/24 11/27/24 Rx Divalproex ER [Depakote ER] 500 mg PO HS 30 Days #30 tab 11/23/24 11/27/24 Rx Haloperidol Decanoate [Haldol D] 50 mg IM Q14D #1 each 11/23/24 11/27/24 Rx Ibuprofen [Motrin] 600 mg PO Q6HR PRN tab 11/23/24 11/27/24 Rx Insulin Glargine (Lantus) [Lantus 20 unit SQ DAILY 30 Days #1 each 11/23/24 11/27/24 Rx Vial] Nystatin 100,000 Unit/gm Powd 1 applic TOPICAL BID PRN 30 Days 11/23/24 11/27/24 Rx [Mycostatin Powder] #1 each Omeprazole 20 mg PO DAILY 30 Days #30 tab 11/23/24 11/27/24 Rx Spironolactone [Aldactone] 25 mg PO DAILY 30 Days #30 tab 11/23/24 11/27/24 Rx busPIRone HCl [Buspar] 5 mg PO BID 30 Days #60 tab 11/23/24 11/27/24 Rx fluvoxaMINE [Luvox] 200 mg PO HS 30 Days #120 tab 11/23/24 11/27/24 Rx hydrOXYzine HCL [Atarax] 25 mg PO BID PRN 30 Days #60 tab 11/23/24 11/27/24 Rx lisinopriL [Zestril] 2.5 mg PO DAILY 30 Days #30 tab 11/23/24 11/27/24 Rx metFORMIN HCL [Glucophage] 1,000 mg PO BID-W/MEALS 30 Days 11/23/24 11/27/24 Rx #120 tab traZODone HCL [Desyrel] 50 mg PO HS 30 Days #30 tab 11/23/24 11/27/24 Rx Allergies Allergy/AdvReac Type Severity Reaction Status Date / Time Iodinated Contrast Media Allergy Anaphylaxis Verified 11/27/24 19:16 [Iodinated Contrast Media - IV Dye] lacosamide [From Vimpat] Allergy Anaphylaxis Verified 11/27/24 19:16 peanut Allergy Anaphylaxis Verified 11/27/24 19:16 Penicillins Allergy Anaphylaxis Verified 11/27/24 19:16 shellfish derived Allergy swelling Verified 11/27/24 19:16 all over body cephalexin monohydrate AdvReac Rash, Verified 11/27/24 19:16 [From Keflex] Nausea, Vomiting & Diarrhea trazodone AdvReac bp Verified 11/27/24 19:16 issues/dizziness Physical Exam Vitals: Vital Signs Temp Pulse Pulse Resp BP BP Pulse Ox 11/28/24 09:00 97.3 F L 82 106/53 97 11/27/24 17:31 98.2 F 72 18 132/77 97 11/27/24 17:00 85 20 140/86 98 11/27/24 13:01 86 16 130/68 98 Intake and Output 11/27/24 11/28/24 11/28/24 22:59 06:59 14:59 Other: Weight 125.1 kg Results CBC & Chem 7: 11/28/24 09:22 11/28/24 09:22 Labs: Abnormal Lab Results - Last 24 Hours (Table) 11/27/24 11/27/24 11/27/24 Range/Units 12:40 12:40 18:04 WBC (4.50-10.00) 10*3/uL Immature Gran # (0.00-0.04) 10*3/uL Neutrophils # (1.80-7.70) 10*3/uL Eosinophils # (0.04-0.35) 10*3/uL Glucose (74-99) mg/dL POC Glucose (mg/dL) 177 H (70-110) mg/dL Urine Glucose (UA) Trace H (Negative) Urine Cocaine Screen Detected H (NotDetected) 11/28/24 11/28/24 11/28/24 Range/Units 07:55 09:22 09:22 WBC 12.26 H (4.50-10.00) 10*3/uL Immature Gran # 0.05 H (0.00-0.04) 10*3/uL Neutrophils # 8.60 H (1.80-7.70) 10*3/uL Eosinophils # 0.53 H (0.04-0.35) 10*3/uL Glucose 172 H (74-99) mg/dL POC Glucose (mg/dL) 181 H (70-110) mg/dL Urine Glucose (UA) (Negative) Urine Cocaine Screen (NotDetected) Assessment and Plan (1) Non-pressure chronic ulcer of skin of other sites limited to breakdown of skin Current Visit: Yes Status: Acute Code(s): L98.491 - NON-PRS CHRONIC ULCER SKIN/ SITES LIMITED TO BRKDWN SKIN SNOMED Code(s): 56563317
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
[2024-11-28] MEDS: busPIRone HCl 5 MG TAB PO SCH (11:14)
[2024-11-28 12:40] LABS: Glucose,Whole Blood 131 mg/dL (70-110)
[2024-11-28] MEDS: ZINC OXIDE PASTE (Z-GUARD) 1 APPLIC TOPICAL PRN (12:46)
[2024-11-28] MEDS: IBUPROFEN 600 MG TAB PO PRN (16:27)
[2024-11-28] MEDS: ACETAMINOPHEN TAB 325 MG TAB PO PRN (16:28)
[2024-11-28] MEDS: hydrOXYzine HCL 25 MG TAB PO PRN (16:30)
[2024-11-28 17:43] LABS: Glucose,Whole Blood 128 mg/dL (70-110)
[2024-11-28 20:12] LABS: Glucose,Whole Blood 130 mg/dL (70-110)
--- NOTE | 2024-11-29 06:07 | P.MDCNMH ---
History of Present Illness H&P Date: 11/28/24 This is a 44-year-old female who presented to the emergency department with suicidal ideation involuntarily admitted to [facility] for further psychiatric evaluation. Patient reports she went and used crack cocaine again and has an addiction habit and has been having increasing thoughts of suicidal ideation. Patient was recently just hospitalized here on [facility] and sent to a intermediate as patient has legal guardian and follows with [facility]. Patient reports to be kicked out of the intermediate and had been staying with his sister. On exam patient is afebrile with no reports of chest pain or shortness of breath. Patient reports has been tolerating diet although not much of an appetite. Patient reports also being noncompliant with medications and would like to go to a rehab for her drug addictions. Patient has significant body odor that appears fungal and noted to have significant excoriation under the left breast as well as her entire abdominal fold. Patient reports she has used nystatin cream and it burned so she is refusing to use this. Patient reports she uses diaper rash cream on occa armando. Patient has been encouraged to shower frequently at least daily and to continue with zinc barrier paste of these areas. Labs reviewed on admission showing a mildly elevated white count of 12.26, hemoglobin 12.8, platelets 248, sodium 138 with a potassium of 4.5, BUN 12 and creatinine 0.73. Blood sugars mildly elevated into the [id number]. Again patient was voluntarily admitted to [facility] for further psychiatric evaluation REVIEW OF SYSTEMS: CONSTITUTIONAL: No fever, no malaise, no fatigue. HEENT: No recent visual problems or hearing problems. Denied any sore throat. CARDIOVASCULAR: No chest pain, orthopnea, PND, no palpitations, no syncope. PULMONARY: No shortness of breath, no cough, no hemoptysis. GASTROINTESTINAL: No diarrhea, no nausea, no vomiting, no abdominal pain. NEUROLOGICAL: No headaches, no weakness, no numbness. HEMATOLOGICAL: Denies any bleeding or petechiae. GENITOURINARY: Denies any burning micturition, frequency, or urgency. MUSCULOSKELETAL/RHEUMATOLOGICAL: Denies any joint pain, swelling, or any muscle pain. ENDOCRINE: Denies any polyuria or polydipsia. Skin: Under left breast excoriation with intact skin and appears candidal along with abdominal fold and skin is intact, malodorous The rest of the 14-point review of systems is negative. PHYSICAL EXAMINATION: GENERAL: The patient is alert and oriented x3, not in any acute distress. Well developed, well nourished. Morbidly obese appears older than stated age HEENT: Pupils are round and equally reacting to light. EOMI. No scleral icterus. No conjunctival pallor. Normocephalic, atraumatic. No pharyngeal erythema. No thyromegaly. CARDIOVASCULAR: S1 and S2 muffled PULMONARY: Diminished breath sounds bilaterally otherwise chest is clear to auscultation, no wheezing or crackles. ABDOMEN: Soft, obese nontender, nondistended, normoactive bowel sounds. No palpable organomegaly. MUSCULOSKELETAL: No joint swelling or deformity. EXTREMITIES: No cyanosis, clubbing, or pedal edema. NEUROLOGICAL: Gross neurological examination did not reveal any focal deficits. SKIN: Significant excoriation and candidal type findings of the area under the left breast as well as abdominal fold, skin is intact Assessment: Depression with suicidal ideation History of asthma, not in exacerbation Left under breast tissue excoriation, concerns for candidal, appears chronic Abdominal fold redness with excoriation, concern for [place] History of heart failure, unknown EF Diabetes mellitus, type II, insulin-dependent, uncontrolled with hyperglycemia History of fibromyalgia GERD Hypertension History of liver disease Osteoarthritis History of seizure disorder History of anxiety, bipolar, depression, schizophrenia Morbid obesity with a BMI of 47.3 Noncompliance with medications GI prophylaxis Full code Plan: Patient voluntarily admitted to [facility]. for further psychiatric evaluation for suicidal ideation and patient reports she used crack cocaine again and was kicked out of her intermediate Patient has a legal guardian and follows with [facility] outpatient Patient evaluated by wound care and recommended nystatin powder although patient is refusing it she reports nystatin rosado when using it. Patient reports diaper rash cream works the best and patient was prescribed zinc barrier paste. Will give a few doses of Diflucan as well. All medications reviewed and resumed as appropriate Thank you kindly for this consultation. Please do not hesitate to contact us with any questions or concerns The impression and plan of care has been dictated by Akila Amato, Nurse Practitioner as directed. Dr. Juan MD I have performed a history and examination and MDM of this patient, discussed the same with the dictator, and agree with the dictator's assessment and plan as written ,documented as a scribe. Based on total visit time, I have performed more than 50% of the visit. Past Medical History Past Medical History: Asthma, Heart Failure, COPD, Diabetes Mellitus, Fibromyalgia, GERD/Reflux, GI Bleed, Hypertension, Liver Disease, Osteoarthritis (OA), Pneumonia, Seizure Disorder, Skin Disorder Additional Past Medical History / Comment(s): Bronchitis, gestational diabetes, seizures with last one 01/2024, sickle cell trait, liver cirrhosis, anemia, chrons, IBS, ulcerative colitis, lowr GI bleed, hemorrhoids, constipation, psoriasis, migraines, chronic low back and cervical pain, scoliosis, arhtritis in multiple joints, gout bilateral feet, History of Any Multi-Drug Resistant Organisms: None Reported Past Surgical History: Cholecystectomy, Orthopedic Surgery Additional Past Surgical History / Comment(s): L oophorectomy d/t cyst, D&C, colonoscopy, L carpal tunnel release, Past Anesthesia/Blood Transfusion Reactions: Motion Sickness, Postoperative Nausea & Vomiting (PONV) Past Psychological History: Anxiety, Bipolar, Depression, Schizophrenia Additional Psychological History / Comment(s): Personality Disorder. She is seen at [facility]. Pt has a learning disability and can read some. She has a [facility] public legal guardian. Smoking Status: Former smoker Past Alcohol Use History: None Reported Additional Past Alcohol Use History / Comment(s): Pt states she has not drank alcohol in 15 years. Past Drug Use History: Cocaine Additional Drug Use History / Comment(s): Pt states she quit crack 1 week ago. UDS positive this admission for cocaine, "I smoked crack". - Past Family History Mother History Unknown: Yes Family Medical History: Cancer Additional Family Medical History / Comment(s): Mother had breast cancer and metnal illness She is living. Father Family Medical History: Cancer Additional Family Medical History / Comment(s): Father is . He had agent orange exposure. He had liver cancer, bowel to brain cancer. Medications and Allergies Home Medications Medication Instructions Recorded Confirmed Type INSULIN LISPRO (HumaLOG) [HumaLOG] 0 unit SQ ACHS each 10/20/24 11/27/24 Rx Acetaminophen Tab [Tylenol] 650 mg PO Q4HR PRN tab 11/23/24 11/27/24 Rx Albuterol Inhaler [Ventolin Hfa 2 puff INHALATION RT-Q6H PRN 30 11/23/24 11/27/24 Rx Inhaler] Days #1 each Ammonium Lactate Lotion 1 applic TOPICAL BID 30 Days #1 11/23/24 11/27/24 Rx [Lac-Hydrin 12% Lotion] each Aspirin EC [Ecotrin Low Dose] 81 mg PO DAILY 30 Days #30 tab 11/23/24 11/27/24 Rx Atorvastatin [Lipitor] 40 mg PO HS 30 Days #30 tab 11/23/24 11/27/24 Rx Dapagliflozin Propanediol [Farxiga] 10 mg PO DAILY 30 Days #30 tab 11/23/24 11/27/24 Rx Divalproex ER [Depakote ER] 500 mg PO HS 30 Days #30 tab 11/23/24 11/27/24 Rx Haloperidol Decanoate [Haldol D] 50 mg IM Q14D #1 each 11/23/24 11/27/24 Rx Ibuprofen [Motrin] 600 mg PO Q6HR PRN tab 11/23/24 11/27/24 Rx Insulin Glargine (Lantus) [Lantus 20 unit SQ DAILY 30 Days #1 each 11/23/24 11/27/24 Rx Vial] Nystatin 100,000 Unit/gm Powd 1 applic TOPICAL BID PRN 30 Days 11/23/24 11/27/24 Rx [Mycostatin Powder] #1 each Omeprazole 20 mg PO DAILY 30 Days #30 tab 11/23/24 11/27/24 Rx Spironolactone [Aldactone] 25 mg PO DAILY 30 Days #30 tab 11/23/24 11/27/24 Rx busPIRone HCl [Buspar] 5 mg PO BID 30 Days #60 tab 11/23/24 11/27/24 Rx fluvoxaMINE [Luvox] 200 mg PO HS 30 Days #120 tab 11/23/24 11/27/24 Rx hydrOXYzine HCL [Atarax] 25 mg PO BID PRN 30 Days #60 tab 11/23/24 11/27/24 Rx lisinopriL [Zestril] 2.5 mg PO DAILY 30 Days #30 tab 11/23/24 11/27/24 Rx metFORMIN HCL [Glucophage] 1,000 mg PO BID-W/MEALS 30 Days 11/23/24 11/27/24 Rx #120 tab traZODone HCL [Desyrel] 50 mg PO HS 30 Days #30 tab 11/23/24 11/27/24 Rx Allergies Allergy/AdvReac Type Severity Reaction Status Date / Time Iodinated Contrast Media Allergy Anaphylaxis Verified 11/27/24 19:16 [Iodinated Contrast Media - IV Dye] lacosamide [From Vimpat] Allergy Anaphylaxis Verified 11/27/24 19:16 peanut Allergy Anaphylaxis Verified 11/27/24 19:16 Penicillins Allergy Anaphylaxis Verified 11/27/24 19:16 shellfish derived Allergy swelling Verified 11/27/24 19:16 all over body cephalexin monohydrate AdvReac Rash, Verified 11/27/24 19:16 [From Keflex] Nausea, Vomiting & Diarrhea trazodone AdvReac bp Verified 11/27/24 19:16 issues/dizziness Physical Exam Vitals: Vital Signs Temp Pulse Resp BP Pulse Ox 11/28/24 21:00 97.2 F L 70 16 92/55 98 11/28/24 09:00 97.3 F L 82 106/53 97 Cranial Nerve Examination - Cranial Nerves Cranial Nerve I- Olfactory: Intact Cranial Nerve II- Optic: Intact Cranial Nerve III- Oculomotor: Intact Cranial Nerve IV- Trochlear: Intact Cranial Nerve V- Trigeminal: Intact Cranial Nerve - Abducens: Intact Cranial Nerve VII- Facial: Intact Cranial Nerve VIII- Auditory: Intact Cranial Nerve IX- Glossopharyngeal: Intact Cranial Nerve X- Vagus: Intact Cranial Nerve XI- Accessory: Intact Cranial Nerve XII- Hypoglossal: Intact Results CBC & Chem 7: 11/28/24 09:22 11/28/24 09:22 Labs: Abnormal Lab Results - Last 24 Hours (Table) 11/28/24 11/28/24 11/28/24 Range/Units 07:55 09:22 09:22 WBC 12.26 H (4.50-10.00) 10*3/uL Immature Gran # 0.05 H (0.00-0.04) 10*3/uL Neutrophils # 8.60 H (1.80-7.70) 10*3/uL Eosinophils # 0.53 H (0.04-0.35) 10*3/uL Glucose 172 H (74-99) mg/dL POC Glucose (mg/dL) 181 H (70-110) mg/dL 11/28/24 11/28/24 11/28/24 Range/Units 12:39 17:41 20:11 WBC (4.50-10.00) 10*3/uL Immature Gran # (0.00-0.04) 10*3/uL Neutrophils # (1.80-7.70) 10*3/uL Eosinophils # (0.04-0.35) 10*3/uL Glucose (74-99) mg/dL POC Glucose (mg/dL) 131 H 128 H 130 H (70-110) mg/dL
[2024-11-29 08:20] LABS: Glucose,Whole Blood 143 mg/dL (70-110)
--- NOTE | 2024-11-29 11:27 | P.PN ---
Progress Note - Text Progress Note Date: 11/29/24 Interval history: Patient was seen today laying in her bed. Agreeable to speak to keno writer. Cont inues to be fairly concrete however improving affect. States that she is feeling better with regards to her depression and anxiety. Has been taking medications. Claims that she slept fairly last night. Hygiene and grooming improving today. Remains fairly focused on discharge and going to rehab. She did get into [facility], awaiting for an intake date to be finalized. Denies any issues with appetite at this time. Denies any auditory or visual hallucinations denies any suicidal homicidal ideations intent or plan. MENTAL STATUS EXAM: General Appearance: Patient appears to be obese, short hair, wearing glasses, older than stated age, is alert, directable, and attempts to cooperate. Patient appears to have fair hygiene and grooming. Behavior: Patient is seated without any agitated behavior. [place], more cooperative today Speech: Patient's speech is fluent and nonpressured. [place], improving mild Mood/Affect: Patient reports their mood is " good" affect is congruent and c onstricted. Suicidality/Homicidality: Patient denies having any homicidal ideation intent or plan. Denies any suicidal ideations intent or plan Perceptions: Patient denies any current visual hallucinations denies any auditory hallucination Though content/process: There is no evidence of any delusional thought content and thought process is linear and goal-directed. [place], more future oriented Memory and concentration: AOX3, grossly intact for the purposes of this session Judgment and insight: poor/impulsive, improving mildly IMPRESSIONS: Schizoaffective disorder Anxiety disorder, unspecified borderline personality disorder cocaine use disorder PLAN: -Patient is admitted under voluntary status to MHU for stabilization of psychiatric symptoms and safety. Patient has signed adult voluntary form and medication consent and is placed in patient's chart. -Medications : Haldol decanoate 50 mg IM next dose due on 12/01, Luvox 200 mg p.o. at bedtime, and BuSpar 5 mg p.o. twice daily. Hydroxyzine 25 mg p.o. as needed for anxiety. Depakote 500 mg nightly for mood stabilization, trazodone 50 mg nightly for insomnia/mood. -NRT - not needed as patient does not smoke -SW on board for discharge planning. Encourage patient to participate in groups to work on coping skills. Patient did get into [facility], currently awaiting intake date to be finalized. Hopeful for discharge either tomorrow or Wednesday directly to rehab
[2024-11-29] MEDS: MAG HYDROX/AL HYDROX/SIMETH 355 ML BOTTLE PO PRN (11:55)
[2024-11-29 12:37] LABS: Glucose,Whole Blood 124 mg/dL (70-110)
[2024-11-29 17:41] LABS: Glucose,Whole Blood 140 mg/dL (70-110)
[2024-11-29 20:12] LABS: Glucose,Whole Blood 220 mg/dL (70-110)
[2024-11-30 08:09] LABS: Glucose,Whole Blood 139 mg/dL (70-110)
--- NOTE | 2024-11-30 11:46 | P.PN ---
Progress Note - Text Progress Note Date: 11/30/24 Interval history: Patient was seen today wandering the hallways and was agreeable to speak to wr iter. Continues to be fairly concrete. She continues to be fairly focused on discharge and going to rehab. She has an intake date tomorrow, will apparently be picked up in the morning. Claims that her mood and anxiety have been improving. Not reporting any issues with her medications. Has been going to groups showering. Hygiene and grooming improving. Denies any issues with appetite at this time. Denies any auditory or visual hallucinations denies any suicidal homicidal ideations intent or plan. MENTAL STATUS EXAM: General Appearance: Patient appears to be obese, short hair, wearing glasses, older than stated age, is alert, directable, and attempts to cooperate. Patient appears to have fair hygiene and grooming. Behavior: Patient is seated without any agitated behavior. [place], more cooperative today, improving Speech: Patient's speech is fluent and nonpressured. [place], improving mild Mood/Affect: Patient reports their mood is "fine" affect is congruent and constricted. Improving mildly Suicidality/Homicidality: Patient denies having any homicidal ideation intent or plan. Denies any suicidal ideations intent or plan Perceptions: Patient denies any current visual hallucinations denies any auditory hallucination Though content/process: There is no evidence of any delusional thought content and thought process is linear and goal-directed. [place], more future oriented Memory and concentration: AOX3, grossly intact for the purposes of this session Judgment and insight: Chronic poor/impulsive, improving mildly IMPRESSIONS: Schizoaffective disorder Anxiety disorder, unspecified borderline personality disorder cocaine use disorder PLAN: -Patient is admitted under voluntary status to MHU for stabilization of psychiatric symptoms and safety. Patient has signed adult voluntary form and medication consent and is placed in patient's chart. -Medications : Haldol decanoate 50 mg IM next dose due on 12/01, next dose will be due in [id number] on 12/15, Luvox 200 mg p.o. at bedtime, and BuSpar 5 mg p.o. twice daily. Hydroxyzine 25 mg p.o. as needed for anxiety. Depakote 500 mg nightly for mood stabilization, trazodone 50 mg nightly for insomnia/mood. -NRT - not needed as patient does not smoke -SW on board for discharge planning. Encourage patient to participate in groups to work on coping skills. Patient did get into [facility], she will be picked up tomorrow morning. Medications sent down to pharmacy for pickup later on today. Hopeful for discharge tomorrow, will be transported directly to rehab.
[2024-11-30 12:32] LABS: Glucose,Whole Blood 131 mg/dL (70-110)
[2024-11-30] MEDS ORDERED: LOPERAMIDE 2 MG CAP PO PRN (15:10)
[2024-11-30 17:34] LABS: Glucose,Whole Blood 141 mg/dL (70-110)
[2024-11-30 20:02] LABS: Glucose,Whole Blood 137 mg/dL (70-110)
[2024-11-30 22:11] VITALS: RESP 18
[2024-12-01 07:47] LABS: Glucose,Whole Blood 152 mg/dL (70-110)
[2024-12-01] MEDS: HALOPERIDOL DECANOATE 100 MG/ML 1 ML VIAL IM SCH (08:26)
[2024-12-01 08:31] VITALS: BP 105/49; PULSE 60; TEMP 96.8
--- NOTE | 2024-12-01 09:56 | P.DS ---
Providers Date of admission: 11/27/24 16:56 Expected date of discharge: 12/01/24 Attending physician: Antwon Tolliver MD Consults: 11/27/24 17:13 Consult Physician Routine Consulting Provider: [facility] Consult Reason/Comments: H&P and medical Do you want consulting provider notified?: Yes Primary care physician: Evelyn Blas - Discharge Diagnosis(es) (1) Schizoaffective disorder Status: Acute Priority: High (2) Anxiety disorder Status: Acute Priority: Medium (3) Borderline personality disorder Status: Acute Priority: High (4) Cocaine abuse Status: Acute Priority: High Hospital Course: Admission HPI: Admission note was completed by casualty underwriter "Patient is a 44 years old female with past psychiatric history of schizoaffective disorder, and borderline personality disorder, was residing at a [facility]. 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 Patient presented to the ER yesterday for psychiatric evaluation. Patient was seen by social work EPS and as per note "Cl reports feeling suicidal and not on medications due to a rash on their stomach 4 days ago. Recently d/c 4 days ago from [facility]. Cl open with [facility] next step program. "I want to go somewhere and kill myself, I am not telling you a plan because I don't want the entry operator on me." Cl evetually states their plan is to overdose. Cl repeorts " I can't leave the dope alone and that everyone wants me to but I can't thats what makes me suicidal. I really want help. I want to go to rehab." Cl claims they were kicked out of the [facility] due to "smoking dope". Cl reports crack cocaine but they think they used fenatnyl. Cl reports nodding out and attitude is changing and not feeling themselves. Cl reports mcc has medications and that they have not taken them due to a rash. Cl reports staying at their sisters currently. Cl reports sister dropped off today. " she says I need help." Cl irritable, defiant, and "snappy". Judgement/Insight/Impulse Control:poor ADLs: fair Hygene: malodorus sleep: poor bhumika: poor". Patient was just discharged from the mental health unit on 11/23, was placed that [facility] home. Patient was seen laying in her bed continues to have foul body odor, disheveled appearance. Claims that she relapsed back on cocaine. Claims that she was "kicked out of the [facility]" however was fairly vague about why this occurred. States that she went to a friend's house and started using again. States that she then went to her sister's house to "get into rehab". She appears to have very poor insight poor judgment impulsive tendency. She was claiming that she was feeling depressed anxious, having suicidal thoughts no specific plan. Claims that she is still having vague suicidal thoughts no plan. Denies any homicidal ideations. Denies any auditory or visual hallucinations. Not reporting any paranoia or delusions. Claims that her sleep and appetite are poor. Claims that she is not sure if she is taking the medications or not. Urine drug screen positive for cocaine." Hospital course: Upon admission to the unit patient was directable and agreeable to commence treatment and signed adult voluntary form. Patient was initially isolative, depressed however with time and treatment patient got along well with other patients on the unit and followed unit protocol. Patient was compliant with the medications and denied any side effects throughout hospital course. Patient was started on her home dose of Haldol Dec give 50 mg IM on 12/01 and next dose will be due in [id number] on 12/15. Home dose of Luvox 200 mg nightly for mood/anxiety, BuSpar 5 mg twice daily for anxiety, Vistaril as needed for anxiety, Depakote 500 mg nightly for mood stabilization, trazodone 50 mg nightly for insomnia/mood. Patient spoke of her stressors and engaged in therapy both group/activity therapy. Patient was also seen by medical team for history and physical exam. Throughout the course of the hospitalization patient gradually improved with regards to mood, anxiety, psychosis, sleep and returned back to their baseline level of functioning. patient denied any suicidal or homicidal ideations intent or plan denied any auditory or visual hallucinations. Patient endorsed wanting to live for her sobriety and her future. The patient denied any access to guns or weapons. Patient denied any paranoia and did not endorse any delusions. Patient does have a significant history of substance abuse and was counseled on abstaining from all substances including alcohol and marijuana. Patient ended up agreeing to inpatient subtance rehab. Patient was excepted to [facility], she was discharged this morning directly there for intake. Patient was also counseled on the medications and need for regular compliance and was encouraged to follow-up with their outpatient appointment for mental health and also for primary care. rubber factory worker communicated with patient's guardians and also [facility] to coordinate patient's discharge planning to [facility] for rehab. Mental status exam: Please refer to mental status exam from casualty underwriter's note on 11/30. Nurse completed a mental status exam and screen for safety concerns prior to patient's discharge on 12/01. Impression: Schizoaffective disorder Anxiety disorder unspecified Borderline personality disorder Cocaine use disorder Nicotine dependence Plan: -Continue with discharge as patient has improved and stabilized psychiatrically and is not currently an imminent threat to themself and/or others. Patient will remain at chronically elevated risk for harm to self and/or others due to their impulsivity and substance abuse. -Continue medications: Haldol Dec 50 mg IM q. 14 days, last dose was given on 12/01 next dose will be due on 12/15. Luvox 200 mg nightly for mood/anxiety, BuSpar 5 mg twice daily for anxiety, Vistaril as needed for anxiety, Depakote 500 mg nightly for mood stabilization, trazodone 50 mg nightly for insomnia/mood -Patient was counseled on the need for medication compliance and appropriate follow-up at mental health and also primary care for medical issues. Patient verbalized understanding and agreed. -Social work and Nurse to help coordinate patients discharge today with a ride directly to rehab. Patient will have follow up appointments with [facility] for psychiatric care along with follow up with primary care provider. -Patient counseled on abstaining from recreational drugs and marijuana and alcohol. Was informed/educated on the adverse effects on their physical and mental health. Patient verbally agreed and understood. -Patient was instructed to return to the hospital or seek immediate medical care if their psychiatric or medical symptoms do worsen or reoccur. Allergies Allergy/AdvReac Type Severity Reaction Status Date / Time Iodinated Contrast Media Allergy Anaphylaxis Verified 11/27/24 19:16 [Iodinated Contrast Media - IV Dye] lacosamide [From Vimpat] Allergy Anaphylaxis Verified 11/27/24 19:16 peanut Allergy Anaphylaxis Verified 11/27/24 19:16 Penicillins Allergy Anaphylaxis Verified 11/27/24 19:16 shellfish derived Allergy swelling Verified 11/27/24 19:16 all over body cephalexin monohydrate AdvReac Rash, Verified 11/27/24 19:16 [From Keflex] Nausea, Vomiting & Diarrhea trazodone AdvReac bp Verified 11/27/24 19:16 issues/dizziness Laboratory Results WBC 12.26 10*3/uL (4.50-10.00) H 11/28/24 09:22 RBC 4.59 10*6/uL (4.10-5.20) 11/28/24 09:22 Hgb 12.8 g/dL (12.0-15.0) 11/28/24 09:22 Hct 39.7 % (37.2-46.3) 11/28/24 09:22 MCV 86.5 fL (80.0-97.0) 11/28/24 09:22 MCH 27.9 pg (27.0-32.0) 11/28/24 09:22 MCHC 32.2 g/dL (32.0-37.0) 11/28/24 09:22 Plt Count 248 10*3/uL (140-440) 11/28/24 09:22 MPV 9.9 fL (9.5-12.2) 11/28/24 09:22 Immature Gran % (Auto) 0.4 % 11/28/24 09:22 Neutrophils % 70.2 % 11/28/24 09:22 Lymphocytes % 17.3 % 11/28/24 09:22 Monocytes % 7.5 % 11/28/24 09:22 Eosinophils % 4.3 % 11/28/24 09:22 Basophils % 0.3 % 11/28/24 09:22 Immature Gran # 0.05 10*3/uL (0.00-0.04) H 11/28/24 09:22 Neutrophils # 8.60 10*3/uL (1.80-7.70) H 11/28/24 09:22 Lymphocytes # 2.12 10*3/uL (0.90-5.00) 11/28/24 09:22 Monocytes # 0.92 10*3/uL (0.20-1.00) 11/28/24 09:22 Eosinophils # 0.53 10*3/uL (0.04-0.35) H 11/28/24 09:22 Basophils # 0.04 10*3/uL (0.00-0.10) 11/28/24 09:22 Sodium 138 mmol/L (137-145) 11/28/24 09:22 Potassium 4.5 mmol/L (3.5-5.1) 11/28/24 09:22 Chloride 104 mmol/L (98-107) 11/28/24 09:22 Carbon Dioxide 26 mmol/L (22-30) 11/28/24 09:22 Anion Gap 8 mmol/L 11/28/24 09:22 BUN 12 mg/dL (7-17) 11/28/24 09:22 Creatinine 0.73 mg/dL (0.52-1.04) 11/28/24 09:22 Est GFR (CKD-EPI)AfAm >90 (>60 ml/min/1.73 sqM) 11/28/24 09:22 Est GFR (CKD-EPI)NonAf >90 (>60 ml/min/1.73 sqM) 11/28/24 09:22 Glucose 172 mg/dL (74-99) H 11/28/24 09:22 POC Glucose (mg/dL) 152 mg/dL (70-110) H 12/01/24 07:45 POC Glu Cylinder Block Mechanic ID Iker Newton 12/01/24 07:45 Calcium 9.4 mg/dL (8.4-10.2) 11/28/24 09:22 Total Bilirubin 0.5 mg/dL (0.2-1.3) 11/28/24 09:22 AST 20 U/L (14-36) 11/28/24 09:22 ALT 24 U/L (4-34) 11/28/24 09:22 Alkaline Phosphatase 99 U/L (38-126) 11/28/24 09:22 Total Protein 6.9 g/dL (6.3-8.2) 11/28/24 09:22 Albumin 3.8 g/dL (3.5-5.0) 11/28/24 09:22 Urine Color Colorless 11/27/24 12:40 Urine Appearance Clear (Clear) 11/27/24 12:40 Urine pH 5.5 (5.0-8.0) 11/27/24 12:40 Ur Specific [place] 1.007 (1.001-1.035) 11/27/24 12:40 Urine Protein Negative (Negative) 11/27/24 12:40 Urine Glucose (UA) Trace (Negative) H 11/27/24 12:40 Urine Ketones Negative (Negative) 11/27/24 12:40 Urine Blood Negative (Negative) 11/27/24 12:40 Urine Nitrite Negative (Negative) 11/27/24 12:40 Urine Bilirubin Negative (Negative) 11/27/24 12:40 Urine Urobilinogen <2.0 mg/dL (<2.0) 11/27/24 12:40 Ur Leukocyte Esterase Negative (Negative) 11/27/24 12:40 Urine HCG, Qual Not Detected (Not Detectd) 11/27/24 17:13 Urine Opiates Screen Not Detected (NotDetected) 11/27/24 12:40 Ur Oxycodone Screen Not Detected (NotDetected) 11/27/24 12:40 Urine Methadone Screen Not Detected (NotDetected) 11/27/24 12:40 Ur Barbiturates Screen Not Detected (NotDetected) 11/27/24 12:40 U Tricyclic Antidepress Not Detected (NotDetected) 11/27/24 12:40 Ur Phencyclidine Scrn Not Detected (NotDetected) 11/27/24 12:40 Ur Amphetamines Screen Not Detected (NotDetected) 11/27/24 12:40 U Methamphetamines Scrn Not Detected (NotDetected) 11/27/24 12:40 U Benzodiazepines Scrn Not Detected (NotDetected) 11/27/24 12:40 Urine Cocaine Screen Detected (NotDetected) H 11/27/24 12:40 U Marijuana (THC) Screen Not Detected (NotDetected) 11/27/24 12:40 Influenza Type A (PCR) Not Detected (Not Detectd) 11/27/24 14:51 Influenza Type B (PCR) Not Detected (Not Detectd) 11/27/24 14:51 RSV (PCR) Not Detected (Not Detectd) 11/27/24 14:51 SARS-CoV-2 (PCR) Not Detected (Not Detectd) 11/27/24 14:51 Laboratory Results WBC 12.26 10*3/uL (4.50-10.00) H 11/28/24 09:22 RBC 4.59 10*6/uL (4.10-5.20) 11/28/24 09:22 Hgb 12.8 g/dL (12.0-15.0) 11/28/24 09:22 Hct 39.7 % (37.2-46.3) 11/28/24 09:22 MCV 86.5 fL (80.0-97.0) 11/28/24 09:22 MCH 27.9 pg (27.0-32.0) 11/28/24 09:22 MCHC 32.2 g/dL (32.0-37.0) 11/28/24 09:22 Plt Count 248 10*3/uL (140-440) 11/28/24 09:22 MPV 9.9 fL (9.5-12.2) 11/28/24 09:22 Immature Gran % (Auto) 0.4 % 11/28/24 09:22 Neutrophils % 70.2 % 11/28/24 09:22 Lymphocytes % 17.3 % 11/28/24 09:22 Monocytes % 7.5 % 11/28/24 09:22 Eosinophils % 4.3 % 11/28/24 09:22 Basophils % 0.3 % 11/28/24 09:22 Immature Gran # 0.05 10*3/uL (0.00-0.04) H 11/28/24 09:22 Neutrophils # 8.60 10*3/uL (1.80-7.70) H 11/28/24 09:22 Lymphocytes # 2.12 10*3/uL (0.90-5.00) 11/28/24 09:22 Monocytes # 0.92 10*3/uL (0.20-1.00) 11/28/24 09:22 Eosinophils # 0.53 10*3/uL (0.04-0.35) H 11/28/24 09:22 Basophils # 0.04 10*3/uL (0.00-0.10) 11/28/24 09:22 Sodium 138 mmol/L (137-145) 11/28/24 09:22 Potassium 4.5 mmol/L (3.5-5.1) 11/28/24 09:22 Chloride 104 mmol/L (98-107) 11/28/24 09:22 Carbon Dioxide 26 mmol/L (22-30) 11/28/24 09:22 Anion Gap 8 mmol/L 11/28/24 09:22 BUN 12 mg/dL (7-17) 11/28/24 09:22 Creatinine 0.73 mg/dL (0.52-1.04) 11/28/24 09:22 Est GFR (CKD-EPI)AfAm >90 (>60 ml/min/1.73 sqM) 11/28/24 09:22 Est GFR (CKD-EPI)NonAf >90 (>60 ml/min/1.73 sqM) 11/28/24 09:22 Glucose 172 mg/dL (74-99) H 11/28/24 09:22 POC Glucose (mg/dL) 152 mg/dL (70-110) H 12/01/24 07:45 POC Glu Cylinder Block Mechanic ID Iker Newton 12/01/24 07:45 Calcium 9.4 mg/dL (8.4-10.2) 11/28/24 09:22 Total Bilirubin 0.5 mg/dL (0.2-1.3) 11/28/24 09:22 AST 20 U/L (14-36) 11/28/24 09:22 ALT 24 U/L (4-34) 11/28/24 09:22 Alkaline Phosphatase 99 U/L (38-126) 11/28/24 09:22 Total Protein 6.9 g/dL (6.3-8.2) 11/28/24 09:22 Albumin 3.8 g/dL (3.5-5.0) 11/28/24 09:22 Urine Color Colorless 11/27/24 12:40 Urine Appearance Clear (Clear) 11/27/24 12:40 Urine pH 5.5 (5.0-8.0) 11/27/24 12:40 Ur Specific [place] 1.007 (1.001-1.035) 11/27/24 12:40 Urine Protein Negative (Negative) 11/27/24 12:40 Urine Glucose (UA) Trace (Negative) H 11/27/24 12:40 Urine Ketones Negative (Negative) 11/27/24 12:40 Urine Blood Negative (Negative) 11/27/24 12:40 Urine Nitrite Negative (Negative) 11/27/24 12:40 Urine Bilirubin Negative (Negative) 11/27/24 12:40 Urine Urobilinogen <2.0 mg/dL (<2.0) 11/27/24 12:40 Ur Leukocyte Esterase Negative (Negative) 11/27/24 12:40 Urine HCG, Qual Not Detected (Not Detectd) 11/27/24 17:13 Urine Opiates Screen Not Detected (NotDetected) 11/27/24 12:40 Ur Oxycodone Screen Not Detected (NotDetected) 11/27/24 12:40 Urine Methadone Screen Not Detected (NotDetected) 11/27/24 12:40 Ur Barbiturates Screen Not Detected (NotDetected) 11/27/24 12:40 U Tricyclic Antidepress Not Detected (NotDetected) 11/27/24 12:40 Ur Phencyclidine Scrn Not Detected (NotDetected) 11/27/24 12:40 Ur Amphetamines Screen Not Detected (NotDetected) 11/27/24 12:40 U Methamphetamines Scrn Not Detected (NotDetected) 11/27/24 12:40 U Benzodiazepines Scrn Not Detected (NotDetected) 11/27/24 12:40 Urine Cocaine Screen Detected (NotDetected) H 11/27/24 12:40 U Marijuana (THC) Screen Not Detected (NotDetected) 11/27/24 12:40 Influenza Type A (PCR) Not Detected (Not Detectd) 11/27/24 14:51 Influenza Type B (PCR) Not Detected (Not Detectd) 11/27/24 14:51 RSV (PCR) Not Detected (Not Detectd) 11/27/24 14:51 SARS-CoV-2 (PCR) Not Detected (Not Detectd) 11/27/24 14:51 Vital Signs Temp 96.8 F L 12/01/24 08:31 Pulse 60 12/01/24 08:31 Resp 18 12/01/24 08:31 BP 105/49 12/01/24 08:31 Pulse Ox 97 12/01/24 08:31 FiO2 Patient Condition at Discharge: Stable Plan - Discharge Summary Discharge Rx Participant: No New Discharge Prescriptions: New Pantoprazole [Protonix] 40 mg PO AC-BRKFST 30 Days #30 tab Continue Albuterol Inhaler [Ventolin Hfa Inhaler] 2 puff INHALATION RT-Q6H PRN 30 Days #1 each PRN Reason: Shortness Of Breath Spironolactone [Aldactone] 25 mg PO DAILY 30 Days #30 tab hydrOXYzine HCL [Atarax] 25 mg PO BID PRN 30 Days #60 tab PRN Reason: Anxiety busPIRone HCl [Buspar] 5 mg PO BID 30 Days #60 tab Divalproex ER [Depakote ER] 500 mg PO HS 30 Days #30 tab traZODone HCL [Desyrel] 50 mg PO HS 30 Days #30 tab Dapagliflozin Propanediol [Farxiga] 10 mg PO DAILY 30 Days #30 tab metFORMIN HCL [Glucophage] 1,000 mg PO BID-W/MEALS 30 Days #120 tab Ammonium Lactate Lotion [Lac-Hydrin 12% Lotion] 1 applic TOPICAL BID 30 Days #1 each Atorvastatin [Lipitor] 40 mg PO HS 30 Days #30 tab Ibuprofen [Motrin] 600 mg PO Q6HR PRN 30 Days #120 tab PRN Reason: Moderate Pain (Scale 4 To 6) INSULIN LISPRO (HumaLOG) [HumaLOG] 0 unit SQ ACHS each Nystatin 100,000 Unit/gm Powd [Mycostatin Powder] 1 applic TOPICAL BID PRN 30 Days #1 each PRN Reason: excoriation Aspirin EC [Ecotrin Low Dose] 81 mg PO DAILY 30 Days #30 tab Haloperidol Decanoate [Haldol D] 50 mg IM Q14D #1 each fluvoxaMINE [Luvox] 200 mg PO HS 30 Days #120 tab lisinopriL [Zestril] 2.5 mg PO DAILY 30 Days #30 tab Changed Acetaminophen Tab [Tylenol] 650 mg PO Q6HR PRN 30 Days #120 tab PRN Reason: Mild Pain (Scale 1 To 3) Discontinued Insulin Glargine (Lantus) [Lantus Vial] 20 unit SQ DAILY 30 Days #1 each Omeprazole 20 mg PO DAILY 30 Days #30 tab Discharge Medication List INSULIN LISPRO (HumaLOG) [HumaLOG] 0 unit SQ ACHS each 10/20/24 [Rx] Albuterol Inhaler [Ventolin Hfa Inhaler] 2 puff INHALATION RT-Q6H PRN 30 Days #1 each 11/23/24 [Rx] Nystatin 100,000 Unit/gm Powd [Mycostatin Powder] 1 applic TOPICAL BID PRN 30 Days #1 each 11/23/24 [Rx] Acetaminophen Tab [Tylenol] 650 mg PO Q6HR PRN 30 Days #120 tab 11/30/24 [Rx] Ammonium Lactate Lotion [Lac-Hydrin 12% Lotion] 1 applic TOPICAL BID 30 Days #1 each 11/30/24 [Rx] Aspirin EC [Ecotrin Low Dose] 81 mg PO DAILY 30 Days #30 tab 11/30/24 [Rx] Atorvastatin [Lipitor] 40 mg PO HS 30 Days #30 tab 11/30/24 [Rx] Dapagliflozin Propanediol [Farxiga] 10 mg PO DAILY 30 Days #30 tab 11/30/24 [Rx] Divalproex ER [Depakote ER] 500 mg PO HS 30 Days #30 tab 11/30/24 [Rx] Haloperidol Decanoate [Haldol D] 50 mg IM Q14D #1 each 11/30/24 [Rx] Ibuprofen [Motrin] 600 mg PO Q6HR PRN 30 Days #120 tab 11/30/24 [Rx] Pantoprazole [Protonix] 40 mg PO AC-BRKFST 30 Days #30 tab 11/30/24 [Rx] Spironolactone [Aldactone] 25 mg PO DAILY 30 Days #30 tab 11/30/24 [Rx] busPIRone HCl [Buspar] 5 mg PO BID 30 Days #60 tab 11/30/24 [Rx] fluvoxaMINE [Luvox] 200 mg PO HS 30 Days #120 tab 11/30/24 [Rx] hydrOXYzine HCL [Atarax] 25 mg PO BID PRN 30 Days #60 tab 11/30/24 [Rx] lisinopriL [Zestril] 2.5 mg PO DAILY 30 Days #30 tab 11/30/24 [Rx] metFORMIN HCL [Glucophage] 1,000 mg PO BID-W/MEALS 30 Days #120 tab 11/30/24 [Rx] traZODone HCL [Desyrel] 50 mg PO HS 30 Days #30 tab 11/30/24 [Rx] Follow up Appointment(s)/Referral(s): [facility] [Other] - 1 Week (Intake 1PM) Evelyn Blas MD [Primary Care Provider] - 1-2 days Patient Instructions/Handouts: Depression (DC) Discharge Disposition: OTHER INSTITUTION NOT DEFINED
== END 2024-12-01 09:05 | disposition home or self-care (01) | DRG 761 ==
LOC: EC 09:55 → 3MHU 16:56
PROVIDERS: ADMIT Psychiatry & Neurology Psychiatry; ATTEND Psychiatry & Neurology Psychiatry
DX: F25.9 Schizoaffective disorder, unspecified (principal); F31.9 Bipolar disorder, unspecified; F41.9 Anxiety disorder, unspecified; F60.3 Borderline personality disorder; G40.909 Epilepsy, unspecified, not intractable, without status epilepticus; I11.0 Hypertensive heart disease with heart failure; I50.9 Heart failure, unspecified; J44.89 Other specified chronic obstructive pulmonary disease; K21.9 Gastro-esophageal reflux disease without esophagitis; K50.90 Crohn's disease, unspecified, without complications; Z68.42 Body mass index [BMI] 45.0-49.9, adult; E66.01 Morbid (severe) obesity due to excess calories; F14.10 Cocaine abuse, uncomplicated; R45.851 Suicidal ideations; E11.9 Type 2 diabetes mellitus without complications; K74.60 Unspecified cirrhosis of liver; D64.9 Anemia, unspecified; L98.491 Non-pressure chronic ulcer of skin of other sites limited to breakdown of skin; M15.9 Polyosteoarthritis, unspecified; D57.3 Sickle-cell trait; M54.50 Low back pain, unspecified; M54.2 Cervicalgia; G89.29 Other chronic pain; G43.909 Migraine, unspecified, not intractable, without status migrainosus; L40.9 Psoriasis, unspecified; M10.9 Gout, unspecified; F17.200 Nicotine dependence, unspecified, uncomplicated; M41.9 Scoliosis, unspecified; B37.2 Candidiasis of skin and nail; M79.7 Fibromyalgia; Z91.041 Radiographic dye allergy status; Z79.4 Long term (current) use of insulin; Z79.82 Long term (current) use of aspirin; Z79.84 Long term (current) use of oral hypoglycemic drugs; Z79.899 Other long term (current) drug therapy; Z86.32 Personal history of gestational diabetes; Z90.721 Acquired absence of ovaries, unilateral; Z91.148 Patient's other noncompliance with medication regimen for other reason; Z91.51 Personal history of suicidal behavior; Z87.01 Personal history of pneumonia (recurrent); Z11.52 Encounter for screening for COVID-19; Z88.0 Allergy status to penicillin; Z88.8 Allergy status to other drugs, medicaments and biological substances; Z71.51 Drug abuse counseling and surveillance of drug abuser
CPT/HCPCS: 80053; 80306; 81003; 81025; 82075; 85025; 87636; 99285

== ENCOUNTER 2024-12-10 09:09 | Emergency (ER) | payer OTHER ==
[2024-12-10 09:15] VITALS: BP 140/81; PULSE 67; RESP 16; TEMP 98.4
--- NOTE | 2024-12-10 09:35 | ED ---
Psych HPI - General Chief Complaint: Psychiatric Symptoms Stated Complaint: Mental Health Eval. Time Seen by Provider: 12/10/24 09:15 Source: patient, RN notes reviewed Mode of arrival: ambulatory Limitations: no limitations - History of Present Illness Initial Comments: This is a 44-year-old female who presents to the emergency department for psychiatric evaluation. States that she has been having suicidal ideations with a plan to overdose on her psychiatric medication. She is also engaging in self- harm activities by squeezing her skin and causing bruises. She was discharged from the psychiatric unit here earlier this month and believes that she was discharged too soon. Denies any homicidal ideations or auditory/visual hallucinations. MD Complaint: suicidal ideation - Related Data Previous Rx's Medication Instructions Recorded INSULIN LISPRO (HumaLOG) [HumaLOG] 0 unit SQ ACHS each 10/20/24 Albuterol Inhaler [Ventolin Hfa 2 puff INHALATION RT-Q6H PRN 30 11/23/24 Inhaler] Days #1 each Nystatin 100,000 Unit/gm Powd 1 applic TOPICAL BID PRN 30 Days 11/23/24 [Mycostatin Powder] #1 each Acetaminophen Tab [Tylenol] 650 mg PO Q6HR PRN 30 Days #120 tab 11/30/24 Ammonium Lactate Lotion 1 applic TOPICAL BID 30 Days #1 11/30/24 [Lac-Hydrin 12% Lotion] each Aspirin EC [Ecotrin Low Dose] 81 mg PO DAILY 30 Days #30 tab 11/30/24 Atorvastatin [Lipitor] 40 mg PO HS 30 Days #30 tab 11/30/24 Dapagliflozin Propanediol [Farxiga] 10 mg PO DAILY 30 Days #30 tab 11/30/24 Divalproex ER [Depakote ER] 500 mg PO HS 30 Days #30 tab 11/30/24 Haloperidol Decanoate [Haldol D] 50 mg IM Q14D #1 each 11/30/24 Ibuprofen [Motrin] 600 mg PO Q6HR PRN 30 Days #120 tab 11/30/24 Pantoprazole [Protonix] 40 mg PO AC-BRKFST 30 Days #30 tab 11/30/24 Spironolactone [Aldactone] 25 mg PO DAILY 30 Days #30 tab 11/30/24 busPIRone HCl [Buspar] 5 mg PO BID 30 Days #60 tab 11/30/24 fluvoxaMINE [Luvox] 200 mg PO HS 30 Days #120 tab 11/30/24 hydrOXYzine HCL [Atarax] 25 mg PO BID PRN 30 Days #60 tab 11/30/24 lisinopriL [Zestril] 2.5 mg PO DAILY 30 Days #30 tab 11/30/24 metFORMIN HCL [Glucophage] 1,000 mg PO BID-W/MEALS 30 Days 11/30/24 #120 tab traZODone HCL [Desyrel] 50 mg PO HS 30 Days #30 tab 11/30/24 Allergies Allergy/AdvReac Type Severity Reaction Status Date / Time Iodinated Contrast Media Allergy Anaphylaxis Verified 12/10/24 09:13 [Iodinated Contrast Media - IV Dye] lacosamide [From Vimpat] Allergy Anaphylaxis Verified 12/10/24 09:13 peanut Allergy Anaphylaxis Verified 12/10/24 09:13 Penicillins Allergy Anaphylaxis Verified 12/10/24 09:13 shellfish derived Allergy swelling Verified 12/10/24 09:13 all over body cephalexin monohydrate AdvReac Rash, Verified 12/10/24 09:13 [From Keflex] Nausea, Vomiting & Diarrhea trazodone AdvReac bp Verified 12/10/24 09:13 issues/dizziness Review of Systems ROS Statement: Those systems with pertinent positive or pertinent negative responses have been documented in the HPI. ROS Other: All systems not noted in ROS Statement are negative. Past Medical History Past Medical History: Asthma, Heart Failure, COPD, Diabetes Mellitus, Fibromyalgia, GERD/Reflux, GI Bleed, Hypertension, Liver Disease, Osteoarthritis (OA), Pneumonia, Seizure Disorder, Skin Disorder Additional Past Medical History / Comment(s): Bronchitis, gestational diabetes, seizures with last one 01/2024, sickle cell trait, liver cirrhosis, anemia, chrons, IBS, ulcerative colitis, lowr GI bleed, hemorrhoids, constipation, psoriasis, migraines, chronic low back and cervical pain, scoliosis, arhtritis in multiple joints, gout bilateral feet, History of Any Multi-Drug Resistant Organisms: None Reported Past Surgical History: Cholecystectomy, Orthopedic Surgery Additional Past Surgical History / Comment(s): L oophorectomy d/t cyst, D&C, colonoscopy, L carpal tunnel release, Past Anesthesia/Blood Transfusion Reactions: Motion Sickness, Postoperative Nausea & Vomiting (PONV) Past Psychological History: Anxiety, Bipolar, Depression, Schizophrenia Smoking Status: Former smoker Past Alcohol Use History: None Reported Past Drug Use History: Cocaine - Past Family History Mother History Unknown: Yes Family Medical History: Cancer Additional Family Medical History / Comment(s): Mother had breast cancer and metnal illness She is living. Father Family Medical History: Cancer Additional Family Medical History / Comment(s): Father is . He had agent orange exposure. He had liver cancer, bowel to brain cancer. General Exam Limitations: no limitations General appearance: alert, in no apparent distress Head exam: Present: atraumatic, normocephalic, normal inspection Respiratory exam: Present: normal lung sounds bilaterally. Absent: respiratory distress, wheezes, rales, rhonchi, stridor Cardiovascular Exam: Present: regular rate, normal rhythm Neurological exam: Present: alert, oriented X3, CN II-XII intact Psychiatric exam: Present: flat affect, suicidal ideation. Absent: homicidal ideation Course Vital Signs 12/10/24 09:10 Temperature 98.4 F Pulse Rate 67 Respiratory 16 Rate Blood Pressure 140/81 O2 Sat by Pulse 95 Oximetry Medical Decision Making - Medical Decision Making This is a 44-year-old female who presents to the emergency department for psychiatric evaluation. Was pt. sent in by a medical professional or institution? @ -No Did you speak to anyone other than the patient for history? @ -No Did you review nursing and triage notes? @ -Yes, and I agree, it is accurate with regards to the patient's symptoms. Were old charts reviewed? @ -No Differential Diagnosis? @ -Differential Mental Health Depression, anxiety, bipolar, psychosis, schizophrenia, borderline personality, situational depression, adjustment disorder, behavioral disorder, brain tumor, malingering, substance abuse, encephalopathy, medication reaction, dementia, hypothyroidism, degenerative neurologic disorder, lupus.... This is not meant to be all-inclusive list EKG interpreted by me (3pts min.)? @ -Not obtained X-rays interpreted by me (1pt min.)? @ -Not obtained CT interpreted by me (1pt min.)? @ -Not obtained U/S interpreted by me (1pt. min.)? @ -Not obtained What testing was considered but not performed? (CT, X-rays, U/S, labs)? Why? @ -None What meds were considered but not given? Why? @ -None Did you discuss the management of the patient with other professionals? @ -Yes, Suyapa Joness with EPS, who advised that her suicidal statements are all attention seeking behavior and she can be discharged home with a safety plan. Did you reconcile home meds? @ -No Was smoking cessation discussed for >3mins.? @ -No Was critical care preformed (if so, how long)? @ -No Were there social determinants of health that impacted care today? How? (Homelessness, low income, unemployed, alcoholism, drug addiction, transportation, low edu. Level, literacy, decrease access to med. care, mcc, rehab)? @ -No Was there de-escalation of care discussed even if they declined? (Discuss DNR or withdrawal of care, Hospice)? @ -No What co-morbidities impacted this encounter? (DM, HTN, Smoking, COPD, CAD, Cancer, CVA, Hep., AIDS, mental health diagnosis, sleep apnea, morbid obesity)? @ -Schizoaffective disorder, borderline personality disorder Was patient admitted / discharged? @ -Discharged. Patient's BAT was 0.0 and she was cleared for EPS evaluation. UA grossly contaminated. UDS positive for cocaine. EPS evaluated the patient and advised that she was exhibiting attention seeking behavior. When they had discussed potentially needing to transfer her to a different psychiatric hospital due to multiple admissions here without sustained improvement, she was not at all okay with that idea and admitted that she was not actually having suicidal ideations. They advised that she could be safety planned and discharged home. They will also coordinate with [facility] regarding her treatment. Patient discharged home in stable condition. Return precautions reviewed in depth, the patient is instructed to return to the emergency department with any new, worsening, or concerning symptoms. Patient verbalized understanding. Undiagnosed new problem with uncertain prognosis? @ -None Drug Therapy requiring intensive monitoring for toxicity (Heparin, Nitro, Insulin, Cardizem)? @ -None Were any procedures done? @ -None Diagnosis/symptom? @ -Attention seeking behavior Acute, or Chronic, or Acute on Chronic? @ -Acute Uncomplicated (without systemic symptoms) or Complicated (systemic symptoms)? @ -Uncomplicated Side effects of treatment? @ -None Exacerbation, Progression, or Severe Exacerbation] @ -Not applicable Poses a threat to life or bodily function? @ -Unlikely - Lab Data Lab Results 12/10/24 12/10/24 Range/Units 09:37 09:38 Urine Color Yellow Urine Appearance Turbid H (Clear) Urine pH 5.5 (5.0-8.0) Ur Specific [place] 1.023 (1.001-1.035) Urine Protein Trace H (Negative) Urine Glucose (UA) 1+ H (Negative) Urine Ketones Negative (Negative) Urine Blood Small H (Negative) Urine Nitrite Negative (Negative) Urine Bilirubin Negative (Negative) Urine Urobilinogen <2.0 (<2.0) mg/dL Ur Leukocyte Esterase Large H (Negative) Urine RBC 7 H (0-5) /hpf Urine WBC 21 H (0-5) /hpf Ur Squamous Epith Cells 15 H (0-4) /hpf Urine Bacteria Few H (None) /hpf Urine Mucus Moderate H (None) /hpf Urine Opiates Screen Not Detected (NotDetected) Ur Oxycodone Screen Not Detected (NotDetected) Urine Methadone Screen Not Detected (NotDetected) Ur Barbiturates Screen Not Detected (NotDetected) U Tricyclic Antidepress Not Detected (NotDetected) Ur Phencyclidine Scrn Not Detected (NotDetected) Ur Amphetamines Screen Not Detected (NotDetected) U Methamphetamines Scrn Not Detected (NotDetected) U Benzodiazepines Scrn Not Detected (NotDetected) Urine Cocaine Screen Detected H (NotDetected) U Marijuana (THC) Screen Not Detected (NotDetected) Influenza Type A (PCR) Not Detected (Not Detectd) Influenza Type B (PCR) Not Detected (Not Detectd) RSV (PCR) Not Detected (Not Detectd) SARS-CoV-2 (PCR) Not Detected (Not Detectd) Disposition Clinical Impression: Schizoaffective disorder, Attention seeking behavior, Borderline personality disorder Disposition: HOME SELF-CARE Is patient prescribed a controlled substance at d/c from ED?: No Referrals: Evelyn Blas MD [Primary Care Provider] - 1-2 days
[2024-12-10 09:55] LABS: Appearance,Urine Turbid (Clear); Bacteria,Urine Few /hpf; Bilirubin,Urine Negative (Negative); Blood,Urine Small (Negative); Color,Urine Yellow; Glucose,Urine (UA) 1+ (Negative); Ketones,Urine Negative (Negative); Leukocyte Esterase,Urine Large (Negative); Mucus,Urine Moderate /hpf; Nitrite,Urine Negative (Negative); PH, Urine 5.5 (5.0-8.0); Protein,Urine Trace (Negative); RBC,Urine 7 /hpf (0-5); Specific Gravity,Urine 1.023 (1.001-1.035); Squamous Epithelial Cell,Urine 15 /hpf (0-4); Urobilinogen,Urine <2.0 mg/dL (<2.0); WBC,Urine 21 /hpf (0-5)
[2024-12-10 10:04] LABS: Amphetamine Screen,Urine Not Detected (NotDetected); Barbiturate Screen,Urine Not Detected (NotDetected); Benzodiazepines Screen,Urine Not Detected (NotDetected); Cocaine Screen,Urine Detected (NotDetected); Methadone Screen, Urine Not Detected (NotDetected); Opiate Screen,Urine Not Detected (NotDetected); Oxycodone Screen, Urine Not Detected (NotDetected); Phencyclidine Screen,Urine Not Detected (NotDetected); Tricyclic Antidepressant,Urine Not Detected (NotDetected); Urn Cannabinoid Scrn Not Detected (NotDetected)
[2024-12-10 11:44] LABS: Influenza A Not Detected (Not Detectd); Influenza B Not Detected (Not Detectd); RSV Not Detected (Not Detectd)
== END 2024-12-10 13:26 | disposition home or self-care (01) ==
LOC: EC 09:09
DX: F25.9 Schizoaffective disorder, unspecified (principal); F60.4 Histrionic personality disorder; F60.3 Borderline personality disorder; Z87.891 Personal history of nicotine dependence; Z88.0 Allergy status to penicillin; Z88.1 Allergy status to other antibiotic agents; Z91.041 Radiographic dye allergy status; Z88.8 Allergy status to other drugs, medicaments and biological substances; Z91.010 Allergy to peanuts; Z91.013 Allergy to seafood
CPT/HCPCS: 80306; 81001; 82075; 87086; 87636; 99284

== ENCOUNTER 2024-12-14 09:54 | Emergency (ER) | payer OTHER ==
[2024-12-14 10:01] VITALS: BP 123/69; PULSE 77; RESP 16; TEMP 98.3
[2024-12-14 10:24] LABS: Basophils # (A) 0.03 10*3/uL (0.00-0.10); Basophils % (A) 0.3 %; Eosinophils % (A) 2.7 %; HCT 36.1 % (37.2-46.3); HGB 11.5 g/dL (12.0-15.0); Lymphocytes # (A) 1.77 10*3/uL (0.90-5.00); Lymphocytes % (A) 16.2 %; MCH 27.4 pg (27.0-32.0); MCHC 31.9 g/dL (32.0-37.0); MCV 86.2 fL (80.0-97.0); Mean Platelet Volume 9.8 fL (9.5-12.2); Monocytes # (A) 0.71 10*3/uL (0.20-1.00); Monocytes % (A) 6.5 %; Neutrophils # (A) 8.05 10*3/uL (1.80-7.70); Neutrophils % (A) 73.8 %; Platelet Count 225 10*3/uL (140-440); RBC 4.19 10*6/uL (4.10-5.20); RDW 16.3 % (11.5-14.5); WBC 10.92 10*3/uL (4.50-10.00)
--- NOTE | 2024-12-14 10:24 | ED ---
General Adult HPI - General Chief complaint: Dizziness Stated complaint: Seizure Time Seen by Provider: 12/14/24 09:55 Source: patient, RN notes reviewed Mode of arrival: EMS Limitations: no limitations - History of Present Illness Initial comments: 44-year-old female presents emergency department with multiple complaints. Patient presenting via EMS complaint nausea vomiting palpitations possible seizure. Patient states that she felt she had "aura seizure". Patient states that she missed her Depakote. Patient states nausea vomiting started overnight. Patient denies any localized abdominal pain no chest pain she states she does feel some fluttering of her chest. Patient offers no other complaints. - Related Data Previous Rx's Medication Instructions Recorded INSULIN LISPRO (HumaLOG) [HumaLOG] 0 unit SQ ACHS each 10/20/24 Albuterol Inhaler [Ventolin Hfa 2 puff INHALATION RT-Q6H PRN 30 11/23/24 Inhaler] Days #1 each Nystatin 100,000 Unit/gm Powd 1 applic TOPICAL BID PRN 30 Days 11/23/24 [Mycostatin Powder] #1 each Acetaminophen Tab [Tylenol] 650 mg PO Q6HR PRN 30 Days #120 tab 11/30/24 Ammonium Lactate Lotion 1 applic TOPICAL BID 30 Days #1 11/30/24 [Lac-Hydrin 12% Lotion] each Aspirin EC [Ecotrin Low Dose] 81 mg PO DAILY 30 Days #30 tab 11/30/24 Atorvastatin [Lipitor] 40 mg PO HS 30 Days #30 tab 11/30/24 Dapagliflozin Propanediol [Farxiga] 10 mg PO DAILY 30 Days #30 tab 11/30/24 Divalproex ER [Depakote ER] 500 mg PO HS 30 Days #30 tab 11/30/24 Haloperidol Decanoate [Haldol D] 50 mg IM Q14D #1 each 11/30/24 Ibuprofen [Motrin] 600 mg PO Q6HR PRN 30 Days #120 tab 11/30/24 Pantoprazole [Protonix] 40 mg PO AC-BRKFST 30 Days #30 tab 11/30/24 Spironolactone [Aldactone] 25 mg PO DAILY 30 Days #30 tab 11/30/24 busPIRone HCl [Buspar] 5 mg PO BID 30 Days #60 tab 11/30/24 fluvoxaMINE [Luvox] 200 mg PO HS 30 Days #120 tab 11/30/24 hydrOXYzine HCL [Atarax] 25 mg PO BID PRN 30 Days #60 tab 11/30/24 lisinopriL [Zestril] 2.5 mg PO DAILY 30 Days #30 tab 11/30/24 metFORMIN HCL [Glucophage] 1,000 mg PO BID-W/MEALS 30 Days 11/30/24 #120 tab traZODone HCL [Desyrel] 50 mg PO HS 30 Days #30 tab 11/30/24 Allergies Allergy/AdvReac Type Severity Reaction Status Date / Time Iodinated Contrast Media Allergy Anaphylaxis Verified 12/14/24 09:58 [Iodinated Contrast Media - IV Dye] lacosamide [From Vimpat] Allergy Anaphylaxis Verified 12/14/24 09:58 peanut Allergy Anaphylaxis Verified 12/14/24 09:58 Penicillins Allergy Anaphylaxis Verified 12/14/24 09:58 shellfish derived Allergy swelling Verified 12/14/24 09:58 all over body cephalexin monohydrate AdvReac Rash, Verified 12/14/24 09:58 [From Keflex] Nausea, Vomiting & Diarrhea trazodone AdvReac bp Verified 12/14/24 09:58 issues/dizziness Review of Systems ROS Statement: Those systems with pertinent positive or pertinent negative responses have been documented in the HPI. ROS Other: All systems not noted in ROS Statement are negative. Past Medical History Past Medical History: Asthma, Heart Failure, COPD, Diabetes Mellitus, Fibromyalgia, GERD/Reflux, GI Bleed, Hypertension, Liver Disease, Osteoarthritis (OA), Pneumonia, Seizure Disorder, Skin Disorder Additional Past Medical History / Comment(s): Bronchitis, gestational diabetes, seizures with last one 01/2024, sickle cell trait, liver cirrhosis, anemia, chrons, IBS, ulcerative colitis, lowr GI bleed, hemorrhoids, constipation, psoriasis, migraines, chronic low back and cervical pain, scoliosis, arhtritis in multiple joints, gout bilateral feet, History of Any Multi-Drug Resistant Organisms: None Reported Past Surgical History: Cholecystectomy, Orthopedic Surgery Additional Past Surgical History / Comment(s): L oophorectomy d/t cyst, D&C, colonoscopy, L carpal tunnel release, Past Anesthesia/Blood Transfusion Reactions: Motion Sickness, Postoperative Nausea & Vomiting (PONV) Past Psychological History: Anxiety, Bipolar, Depression, Schizophrenia Smoking Status: Former smoker Past Alcohol Use History: None Reported Past Drug Use History: Cocaine - Past Family History Mother History Unknown: Yes Family Medical History: Cancer Additional Family Medical History / Comment(s): Mother had breast cancer and metnal illness She is living. Father Family Medical History: Cancer Additional Family Medical History / Comment(s): Father is . He had agent orange exposure. He had liver cancer, bowel to brain cancer. General Exam Limitations: no limitations General appearance: alert, in no apparent distress Head exam: Present: atraumatic, normocephalic, normal inspection Eye exam: Present: normal appearance, PERRL, EOMI. Absent: scleral icterus, conjunctival injection, periorbital swelling ENT exam: Present: normal exam, normal oropharynx, mucous membranes moist Neck exam: Present: normal inspection, full ROM. Absent: tenderness, meningismus, lymphadenopathy Respiratory exam: Present: normal lung sounds bilaterally. Absent: respiratory distress, wheezes, rales, rhonchi, stridor Cardiovascular Exam: Present: regular rate, normal rhythm, normal heart sounds. Absent: systolic murmur, diastolic murmur, rubs, gallop, clicks GI/Abdominal exam: Present: soft, normal bowel sounds. Absent: distended, tenderness, guarding, rebound, rigid Neurological exam: Present: alert, oriented X3 Skin exam: Present: warm, dry, intact, normal color. Absent: rash Course Vital Signs 12/14/24 09:55 Temperature 98.3 F Pulse Rate 77 Respiratory 16 Rate Blood Pressure 123/69 O2 Sat by Pulse 93 L Oximetry EKG Findings - EKG Comments: EKG Findings:: EKG performed at 10: 50 sinus rhythm with a right bundle rate of 69 VA 155 QRS 162 QT/QTc 439/458 no acute EKG images from prior. - EKG Results: EKG: interpreted by ERMD Medical Decision Making - Medical Decision Making Was pt. sent in by a medical professional or institution (, PA, INFORMATICS PHARMACIST, urgent care, hospital, or senior living...) When possible be specific @ -No Did you speak to anyone other than the patient for history (EMS, parent, family, police, friend...)? What history was obtained from this source @ -No Did you review nursing and triage notes (agree or disagree)? Why? @ -I reviewed and agree with nursing and triage notes Were old charts reviewed (outside hosp., previous admission, EMS record, old EKG, old radiological studies, urgent care reports/EKG's, senior living records)? Report findings @ -No old charts were reviewed Differential Diagnosis (chest pain, altered mental status, abdominal pain women, abdominal pain men, vaginal bleeding, weakness, fever, dyspnea, syncope, headache, dizziness, GI bleed, back pain, seizure, CVA, palpatations, mental health, musculoskeletal)? @ -Differential Palpitations Ventricular arrhythmias, atrial arrhythmias, myocardial infarction, anemia, thyrotoxicosis, electrolyte imbalance, hypokalemia, pulmonary embolism, pulmonary disease, drugs, alcohol, anxiety, stress.... This is not meant to be an all-inclusive list. EKG interpreted by me (3pts min.). @ -As above X-rays interpreted by me (1pt min.). @ -None done CT interpreted by me (1pt min.). @ -None done U/S interpreted by me (1pt. min.). @ -None done What testing was considered but not performed or refused? (CT, X-rays, U/S, labs)? Why? @ -None What meds were considered but not given or refused? Why? @ -None Did you discuss the management of the patient with other professionals (professionals i.e. , PA, INFORMATICS PHARMACIST, lab, RT, psych nurse, manager social media, health systems analyst, teacher, jailer/training officer, senior case manager)? Give summary @ -No Was smoking cessation discussed for >3mins.? @ -No Was critical care preformed (if so, how long)? @ -No Were there social determinants of health that impacted care today? How? (Homelessness, low income, unemployed, alcoholism, drug addiction, transportation, low edu. Level, literacy, decrease access to med. care, correction, rehab)? @ -No Was there de-escalation of care discussed even if they declined (Discuss DNR or withdrawal of care, Hospice)? DNR status @ -No What co-morbidities impacted this encounter? (DM, HTN, Smoking, COPD, CAD, Cancer, CVA, ARF, Chemo, Hep., AIDS, mental health diagnosis, sleep apnea, morbid obesity)? @ -None Was patient admitted / discharged? Hospital course, mention meds given and route, prescriptions, significant lab abnormalities, going to OR and other pertinent info. @ -Discharge patient is well-appearing no signs stress she is requesting food at this time. She has no close abdominal pain EKG is unremarkable patient was discharged in stable condition return parameters discussed. Undiagnosed new problem with uncertain prognosis? @ -No Drug Therapy requiring intensive monitoring for toxicity (Heparin, Nitro, Insulin, Cardizem)? @ -No Were any procedures done? @ -No Diagnosis/symptom? @ -Nausea and vomiting, palpitations Acute, or Chronic, or Acute on Chronic? @ -Acute Uncomplicated (without systemic symptoms) or Complicated (systemic symptoms)? @ -complicated Side effects of treatment? @ -No Exacerbation, Progression, or Severe Exacerbation? @ -No Poses a threat to life or bodily function? How? (Chest pain, [place], [place], pneumonia, PE, COPD, DKA, ARF, appy, cholecystitis, CVA, Diverticulitis, Homicidal, Suicidal, threat to staff... and all critical care pts) @ -No - Lab Data Result diagrams: 12/14/24 10:08 12/14/24 10:08 Lab Results 12/14/24 12/14/24 Range/Units 10:08 10:08 WBC 10.92 H (4.50-10.00) 10*3/uL RBC 4.19 (4.10-5.20) 10*6/uL Hgb 11.5 L (12.0-15.0) g/dL Hct 36.1 L (37.2-46.3) % MCV 86.2 (80.0-97.0) fL MCH 27.4 (27.0-32.0) pg MCHC 31.9 L (32.0-37.0) g/dL Plt Count 225 (140-440) 10*3/uL MPV 9.8 (9.5-12.2) fL Immature Gran % (Auto) 0.5 % Neutrophils % 73.8 % Lymphocytes % 16.2 % Monocytes % 6.5 % Eosinophils % 2.7 % Basophils % 0.3 % Immature Gran # 0.06 H (0.00-0.04) 10*3/uL Neutrophils # 8.05 H (1.80-7.70) 10*3/uL Lymphocytes # 1.77 (0.90-5.00) 10*3/uL Monocytes # 0.71 (0.20-1.00) 10*3/uL Eosinophils # 0.30 (0.04-0.35) 10*3/uL Basophils # 0.03 (0.00-0.10) 10*3/uL Sodium 138 (137-145) mmol/L Potassium 4.4 (3.5-5.1) mmol/L Chloride 108 H (98-107) mmol/L Carbon Dioxide 24 (22-30) mmol/L Anion Gap 6 mmol/L BUN 9 (7-17) mg/dL Creatinine 0.58 (0.52-1.04) mg/dL Est GFR (CKD-EPI)AfAm >90 (>60 ml/min/1.73 sqM) Est GFR (CKD-EPI)NonAf >90 (>60 ml/min/1.73 sqM) Glucose 215 H (74-99) mg/dL Calcium 8.7 (8.4-10.2) mg/dL Total Bilirubin 0.4 (0.2-1.3) mg/dL AST 19 (14-36) U/L ALT 20 (4-34) U/L Alkaline Phosphatase 93 (38-126) U/L Total Protein 6.1 L (6.3-8.2) g/dL Albumin 3.2 L (3.5-5.0) g/dL Disposition Clinical Impression: Palpitations, Nausea & vomiting Disposition: HOME SELF-CARE Condition: Stable Instructions (If sedation given, give patient instructions): Heart Palpitations (ED) Additional Instructions: Please return to the Emergency Department if symptoms worsen or any other concerns. Is patient prescribed a controlled substance at d/c from ED?: No Referrals: Evelyn Blas MD [Primary Care Provider] - 1-2 days Time of Disposition: 10:55
[2024-12-14] MEDS: SODIUM CHLORIDE 0.9% 1,000 ML IV STA (10:28)
[2024-12-14] MEDS: METOCLOPRAMIDE 5 MG/ML 2 ML VIAL IVP STA (10:28)
[2024-12-14] MEDS: SODIUM CHLORIDE 0.9% 500 ML 500 ML IV STA (10:28)
[2024-12-14] MEDS: diphenhydrAMINE 50 MG/ML 1 ML VIAL IVP STA (10:28)
[2024-12-14 10:43] LABS: ALT 20 U/L (4-34); AST 19 U/L (14-36); African American GFR (CKD) >90 (>60 ml/min/1.73 sqM); Albumin 3.2 g/dL (3.5-5.0); Alkaline Phosphatase 93 U/L (38-126); Anion Gap 6 mmol/L; Blood Urea Nitrogen 9 mg/dL (7-17); Calcium 8.7 mg/dL (8.4-10.2); Carbon Dioxide 24 mmol/L (22-30); Chloride 108 mmol/L (98-107); Glucose 215 mg/dL (74-99); Non-African American GFR(CKD) >90 (>60 ml/min/1.73 sqM); Potassium 4.4 mmol/L (3.5-5.1); Sodium 138 mmol/L (137-145); Total Bilirubin 0.4 mg/dL (0.2-1.3); Total Protein 6.1 g/dL (6.3-8.2)
== END 2024-12-14 11:46 | disposition home or self-care (01) ==
LOC: EC 09:54
DX: R00.2 Palpitations (principal); R11.2 Nausea with vomiting, unspecified; I45.10 Unspecified right bundle-branch block; Z87.891 Personal history of nicotine dependence; Z88.0 Allergy status to penicillin; Z88.1 Allergy status to other antibiotic agents; Z91.041 Radiographic dye allergy status; Z91.010 Allergy to peanuts
CPT/HCPCS: 36415; 93005; 80053; 85025; 99284; 96374; 96375; 96361; J1200; J2765

== ENCOUNTER 2024-12-19 18:15 | Emergency (ER) | payer OTHER ==
[2024-12-19 18:20] VITALS: TEMP 98
[2024-12-19 19:15] VITALS: PULSE 49
[2024-12-19] MEDS: LORazepam 1 MG TAB PO STA (19:40)
[2024-12-19 20:33] LABS: Amorphous Sediment,Urine Rare /hpf; Appearance,Urine Cloudy (Clear); Bacteria,Urine Occasional /hpf; Bilirubin,Urine Negative (Negative); Blood,Urine Negative (Negative); Color,Urine Yellow; Glucose,Urine (UA) Negative (Negative); Ketones,Urine Negative (Negative); Leukocyte Esterase,Urine Negative (Negative); Mucus,Urine Few /hpf; Nitrite,Urine Negative (Negative); PH, Urine 5.5 (5.0-8.0); Protein,Urine Trace (Negative); RBC,Urine 3 /hpf (0-5); Specific Gravity,Urine 1.026 (1.001-1.035); Squamous Epithelial Cell,Urine 4 /hpf (0-4); Urobilinogen,Urine <2.0 mg/dL (<2.0); WBC,Urine 6 /hpf (0-5)
[2024-12-19 20:38] LABS: ALT 20 U/L (4-34); African American GFR (CKD) >90 (>60 ml/min/1.73 sqM); Alcohol <10 mg/dL; Amphetamine Screen,Urine Not Detected (NotDetected); Anion Gap 12 mmol/L; Barbiturate Screen,Urine Not Detected (NotDetected); Benzodiazepines Screen,Urine Not Detected (NotDetected); Blood Urea Nitrogen 14 mg/dL (7-17); Calcium 9.3 mg/dL (8.4-10.2); Carbon Dioxide 23 mmol/L (22-30); Chloride 102 mmol/L (98-107); Cocaine Screen,Urine Detected (NotDetected); Glucose 138 mg/dL (74-99); Methadone Screen, Urine Not Detected (NotDetected); Non-African American GFR(CKD) >90 (>60 ml/min/1.73 sqM); Opiate Screen,Urine Not Detected (NotDetected); Oxycodone Screen, Urine Not Detected (NotDetected); Phencyclidine Screen,Urine Not Detected (NotDetected); Sodium 137 mmol/L (137-145); Total Bilirubin 0.7 mg/dL (0.2-1.3); Tricyclic Antidepressant,Urine Not Detected (NotDetected); Urn Cannabinoid Scrn Not Detected (NotDetected)
[2024-12-19 20:42] LABS: Potassium 4.7 mmol/L (3.5-5.1)
[2024-12-19 20:43] LABS: AST 30 U/L (14-36); Albumin 3.6 g/dL (3.5-5.0); Alkaline Phosphatase 120 U/L (38-126)
[2024-12-19] MEDS: ONDANSETRON 4 MG/2 ML VIAL IVP STA (20:44)
[2024-12-19 20:47] LABS: NT-Pro-B-Type Natriuretic Pept 79 pg/mL
--- NOTE | 2024-12-19 21:04 | XR ---
EXAMINATION TYPE: XR chest 2V DATE OF EXAM: 12/19/2024 8:58 PM COMPARISON: Multiple radiographs, with the most recent on 11/12/2024 TECHNIQUE: XR chest 2V Frontal and lateral views of the chest. CLINICAL INDICATION:Female, 44 years old with history of sob; FINDINGS: Lungs/Pleura: There is no evidence of pleural effusion, focal consolidation, or pneumothorax. Pulmonary vascularity: Unremarkable. Heart/mediastinum: Cardiomediastinal silhouette is unremarkable. Musculoskeletal: No acute osseous pathology. IMPRESSION: No acute cardiopulmonary disease/process. [facility], , 12/19/2024 9:02 PM
--- NOTE | 2024-12-19 21:07 | ED ---
General Adult HPI - General Chief complaint: Nausea/Vomiting/Diarrhea Stated complaint: Withdrawal Time Seen by Provider: 12/19/24 18:20 Source: patient Mode of arrival: ambulatory Limitations: no limitations - History of Present Illness Initial comments: 44-year-old female with past medical history of COPD, heart failure, hypertension department with symptoms of withdrawal. States that she typically smokes crack cocaine yesterday and is now having symptoms at all. Reports to tremors, formication, nausea and vomiting. Denies of any other illicit substance. No alcohol use. States that she feels short of breath when she lays flat. Denies any increased swelling. States that she tried taking her home medications as the pain has distracted her. Denies any chest pain. No abdominal pain. No other alleviating, precipitating or modifying factors - Related Data Previous Rx's Medication Instructions Recorded INSULIN LISPRO (HumaLOG) [HumaLOG] 0 unit SQ ACHS each 10/20/24 Albuterol Inhaler [Ventolin Hfa 2 puff INHALATION RT-Q6H PRN 30 11/23/24 Inhaler] Days #1 each Nystatin 100,000 Unit/gm Powd 1 applic TOPICAL BID PRN 30 Days 11/23/24 [Mycostatin Powder] #1 each Acetaminophen Tab [Tylenol] 650 mg PO Q6HR PRN 30 Days #120 tab 11/30/24 Ammonium Lactate Lotion 1 applic TOPICAL BID 30 Days #1 11/30/24 [Lac-Hydrin 12% Lotion] each Aspirin EC [Ecotrin Low Dose] 81 mg PO DAILY 30 Days #30 tab 11/30/24 Atorvastatin [Lipitor] 40 mg PO HS 30 Days #30 tab 11/30/24 Dapagliflozin Propanediol [Farxiga] 10 mg PO DAILY 30 Days #30 tab 11/30/24 Divalproex ER [Depakote ER] 500 mg PO HS 30 Days #30 tab 11/30/24 Haloperidol Decanoate [Haldol D] 50 mg IM Q14D #1 each 11/30/24 Ibuprofen [Motrin] 600 mg PO Q6HR PRN 30 Days #120 tab 11/30/24 Pantoprazole [Protonix] 40 mg PO AC-BRKFST 30 Days #30 tab 11/30/24 Spironolactone [Aldactone] 25 mg PO DAILY 30 Days #30 tab 11/30/24 busPIRone HCl [Buspar] 5 mg PO BID 30 Days #60 tab 11/30/24 fluvoxaMINE [Luvox] 200 mg PO HS 30 Days #120 tab 11/30/24 hydrOXYzine HCL [Atarax] 25 mg PO BID PRN 30 Days #60 tab 11/30/24 lisinopriL [Zestril] 2.5 mg PO DAILY 30 Days #30 tab 11/30/24 metFORMIN HCL [Glucophage] 1,000 mg PO BID-W/MEALS 30 Days 11/30/24 #120 tab traZODone HCL [Desyrel] 50 mg PO HS 30 Days #30 tab 11/30/24 LORazepam [Ativan] 0.5 mg PO BID 3 Days #6 tab 12/19/24 Allergies Allergy/AdvReac Type Severity Reaction Status Date / Time Iodinated Contrast Media Allergy Anaphylaxis Verified 12/19/24 18:20 [Iodinated Contrast Media - IV Dye] lacosamide [From Vimpat] Allergy Anaphylaxis Verified 12/19/24 18:20 peanut Allergy Anaphylaxis Verified 12/19/24 18:20 Penicillins Allergy Anaphylaxis Verified 12/19/24 18:20 shellfish derived Allergy swelling Verified 12/19/24 18:20 all over body cephalexin monohydrate AdvReac Rash, Verified 12/19/24 18:20 [From Keflex] Nausea, Vomiting & Diarrhea trazodone AdvReac bp Verified 12/19/24 18:20 issues/dizziness Review of Systems ROS Statement: Those systems with pertinent positive or pertinent negative responses have been documented in the HPI. ROS Other: All systems not noted in ROS Statement are negative. Past Medical History Past Medical History: Asthma, Heart Failure, COPD, Diabetes Mellitus, Fibromyalgia, GERD/Reflux, GI Bleed, Hypertension, Liver Disease, Osteoarthritis (OA), Pneumonia, Seizure Disorder, Skin Disorder Additional Past Medical History / Comment(s): Bronchitis, gestational diabetes, seizures with last one 01/2024, sickle cell trait, liver cirrhosis, anemia, chrons, IBS, ulcerative colitis, lowr GI bleed, hemorrhoids, constipation, psoriasis, migraines, chronic low back and cervical pain, scoliosis, arhtritis in multiple joints, gout bilateral feet, History of Any Multi-Drug Resistant Organisms: None Reported Past Surgical History: Cholecystectomy, Orthopedic Surgery Additional Past Surgical History / Comment(s): L oophorectomy d/t cyst, D&C, colonoscopy, L carpal tunnel release, Past Anesthesia/Blood Transfusion Reactions: Motion Sickness, Postoperative Nausea & Vomiting (PONV) Past Psychological History: Anxiety, Bipolar, Depression, Schizophrenia Smoking Status: Former smoker Past Alcohol Use History: None Reported Past Drug Use History: Cocaine - Past Family History Mother History Unknown: Yes Family Medical History: Cancer Additional Family Medical History / Comment(s): Mother had breast cancer and metnal illness She is living. Father Family Medical History: Cancer Additional Family Medical History / Comment(s): Father is . He had agent orange exposure. He had liver cancer, bowel to brain cancer. General Exam Limitations: no limitations General appearance: alert, in no apparent distress Head exam: Present: atraumatic, normocephalic, normal inspection Eye exam: Present: normal appearance, PERRL, EOMI. Absent: scleral icterus, conjunctival injection, periorbital swelling ENT exam: Present: normal exam, mucous membranes moist Neck exam: Present: normal inspection. Absent: tenderness, meningismus, lymphad enopathy Respiratory exam: Present: normal lung sounds bilaterally. Absent: respiratory distress, wheezes, rales, rhonchi, stridor Cardiovascular Exam: Present: normal rhythm, bradycardia, normal heart sounds. Absent: systolic murmur, diastolic murmur, rubs, gallop, clicks GI/Abdominal exam: Present: soft, normal bowel sounds. Absent: distended, tenderness, guarding, rebound, rigid Extremities exam: Present: normal inspection, full ROM, normal capillary refill. Absent: tenderness, pedal edema, joint swelling, calf tenderness Back exam: Present: normal inspection Neurological exam: Present: alert, oriented X3, CN II-XII intact Psychiatric exam: Present: normal affect, normal mood Skin exam: Present: warm, dry, intact, normal color. Absent: rash Course Vital Signs 12/19/24 12/19/24 12/19/24 18:18 18:37 19:15 Temperature 98.0 F Pulse Rate 60 57 L 49 L Respiratory 18 16 Rate Blood Pressure 131/71 119/66 O2 Sat by Pulse 95 96 96 Oximetry 12/19/24 22:04 Temperature Pulse Rate 49 L Respiratory 17 Rate Blood Pressure 113/52 O2 Sat by Pulse 96 Oximetry Medical Decision Making - Medical Decision Making Was pt. sent in by a medical professional or institution ([facility], [facility], urgent care, hospital, or halfway...) When possible be specific @ -No Did you speak to anyone other than the patient for history (EMS, parent, family, police, friend...)? What history was obtained from this source @ -No Did you review nursing and triage notes (agree or disagree)? Why? @ -I reviewed and agree with nursing and triage notes Were old charts reviewed (outside hosp., previous admission, EMS record, old EKG, old radiological studies, urgent care reports/EKG's, halfway records)? Report findings @ -No old charts were reviewed Differential Diagnosis (chest pain, altered mental status, abdominal pain women, abdominal pain men, vaginal bleeding, weakness, fever, dyspnea, syncope, headache, dizziness, GI bleed, back pain, seizure, CVA, palpatations, mental health, musculoskeletal)? @ -Opiate withdrawal, gastroenteritis, congestive heart failure EKG interpreted by me (3pts min.). @ -yes and demonstrates sinus bradycardia with a rate of 45. ID interval 152. QRS 170. QTc of 502. Right bundle branch block. Left anterior fascicular block X-rays interpreted by me (1pt min.). @ -yes which demonstrates no acute process CT interpreted by me (1pt min.). @ -None done U/S interpreted by me (1pt. min.). @ -None done What testing was considered but not performed or refused? (CT, X-rays, U/S, labs)? Why? @ -None What meds were considered but not given or refused? Why? @ -None Did you discuss the management of the patient with other professionals (professionals i.e. [facility], [facility], lab, RT, psych nurse, medical social worker, greeter guest services, teacher, first aid officer, dependency case manager)? Give summary @ -No Was smoking cessation discussed for >3mins.? @ -No Was critical care preformed (if so, how long)? @ -No Were there social determinants of health that impacted care today? How? (Homelessness, low income, unemployed, alcoholism, drug addiction, transportation, low edu. Level, literacy, decrease access to med. care, fdc, rehab)? @ -No Was there de-escalation of care discussed even if they declined (Discuss DNR or withdrawal of care, Hospice)? DNR status @ -No What co-morbidities impacted this encounter? (DM, HTN, Smoking, COPD, CAD, Cancer, CVA, ARF, Chemo, Hep., AIDS, mental health diagnosis, sleep apnea, morbid obesity)? @ -Heart failure Was patient admitted / discharged? Hospital course, mention meds given and route, prescriptions, significant lab abnormalities, going to OR and other pertinent info. @ -Upon arrival patient seen and evaluated in room 10. Thorough history and physical exam was performed. Twelve-lead EKG obtained. IV is initiated and laboratory studies are conducted. Patient was given Ativan and Zofran. Laboratory studies returned and are within normal limits. Patient feels improved with the medications. She will be discharged home on a short course of Ativan and Zofran. Instructed to discontinue cocaine use and return for any new or worsening symptoms Undiagnosed new problem with uncertain prognosis? @ -No Drug Therapy requiring intensive monitoring for toxicity (Heparin, Nitro, In sulin, Cardizem)? @ -No Were any procedures done? @ -No Diagnosis/symptom? @ -Acute nausea vomiting, possible opiate withdrawal Acute, or Chronic, or Acute on Chronic? @ -Acute Uncomplicated (without systemic symptoms) or Complicated (systemic symptoms)? @ -Complicated Side effects of treatment? @ -No Exacerbation, Progression, or Severe Exacerbation? @ -No Poses a threat to life or bodily function? How? (Chest pain, [place], [place], pneumonia, PE, COPD, DKA, ARF, appy, cholecystitis, CVA, Diverticulitis, Homicidal, Suicidal, threat to staff... and all critical care pts) @ -No - Lab Data Result diagrams: 12/19/24 21:16 12/19/24 20:14 Lab Results 12/19/24 12/19/24 12/19/24 Range/Units 20:14 20:14 20:14 WBC (4.50-10.00) 10*3/uL RBC (4.10-5.20) 10*6/uL Hgb (12.0-15.0) g/dL Hct (37.2-46.3) % MCV (80.0-97.0) fL MCH (27.0-32.0) pg MCHC (32.0-37.0) g/dL Plt Count (140-440) 10*3/uL MPV (9.5-12.2) fL Immature Gran % (Auto) % Neutrophils % % Lymphocytes % % Monocytes % % Eosinophils % % Basophils % % Immature Gran # (0.00-0.04) 10*3/uL Neutrophils # (1.80-7.70) 10*3/uL Lymphocytes # (0.90-5.00) 10*3/uL Monocytes # (0.20-1.00) 10*3/uL Eosinophils # (0.04-0.35) 10*3/uL Basophils # (0.00-0.10) 10*3/uL Sodium 137 (137-145) mmol/L Potassium 4.7 (3.5-5.1) mmol/L Chloride 102 (98-107) mmol/L Carbon Dioxide 23 (22-30) mmol/L Anion Gap 12 mmol/L BUN 14 (7-17) mg/dL Creatinine 0.63 (0.52-1.04) mg/dL Est GFR (CKD-EPI)AfAm >90 (>60 ml/min/1.73 sqM) Est GFR (CKD-EPI)NonAf >90 (>60 ml/min/1.73 sqM) Glucose 138 H (74-99) mg/dL Calcium 9.3 (8.4-10.2) mg/dL Total Bilirubin 0.7 (0.2-1.3) mg/dL AST 30 (14-36) U/L ALT 20 (4-34) U/L Alkaline Phosphatase 120 (38-126) U/L Troponin I (0.000-0.034) ng/mL NT-Pro-B Natriuret Pep 79 pg/mL Total Protein 7.0 (6.3-8.2) g/dL Albumin 3.6 (3.5-5.0) g/dL Urine Color Yellow Urine Appearance Cloudy H (Clear) Urine pH 5.5 (5.0-8.0) Ur Specific [place] 1.026 (1.001-1.035) Urine Protein Trace H (Negative) Urine Glucose (UA) Negative (Negative) Urine Ketones Negative (Negative) Urine Blood Negative (Negative) Urine Nitrite Negative (Negative) Urine Bilirubin Negative (Negative) Urine Urobilinogen <2.0 (<2.0) mg/dL Ur Leukocyte Esterase Negative (Negative) Urine RBC 3 (0-5) /hpf Urine WBC 6 H (0-5) /hpf Ur Squamous Epith Cells 4 (0-4) /hpf Amorphous Sediment Rare H (None) /hpf Urine Bacteria Occasional H (None) /hpf Urine Mucus Few H (None) /hpf Urine Opiates Screen Not Detected (NotDetected) Ur Oxycodone Screen Not Detected (NotDetected) Urine Methadone Screen Not Detected (NotDetected) Ur Barbiturates Screen Not Detected (NotDetected) U Tricyclic Antidepress Not Detected (NotDetected) Ur Phencyclidine Scrn Not Detected (NotDetected) Ur Amphetamines Screen Not Detected (NotDetected) U Methamphetamines Scrn Not Detected (NotDetected) U Benzodiazepines Scrn Not Detected (NotDetected) Urine Cocaine Screen Detected H (NotDetected) U Marijuana (THC) Screen Not Detected (NotDetected) Serum Alcohol <10 mg/dL 12/19/24 12/19/24 Range/Units 20:14 21:16 WBC 15.37 H (4.50-10.00) 10*3/uL RBC 4.37 (4.10-5.20) 10*6/uL Hgb 11.9 L (12.0-15.0) g/dL Hct 37.4 (37.2-46.3) % MCV 85.6 (80.0-97.0) fL MCH 27.2 (27.0-32.0) pg MCHC 31.8 L (32.0-37.0) g/dL Plt Count 255 (140-440) 10*3/uL MPV 10.1 (9.5-12.2) fL Immature Gran % (Auto) 0.4 % Neutrophils % 67.8 % Lymphocytes % 21.9 % Monocytes % 6.8 % Eosinophils % 2.8 % Basophils % 0.3 % Immature Gran # 0.06 H (0.00-0.04) 10*3/uL Neutrophils # 10.44 H (1.80-7.70) 10*3/uL Lymphocytes # 3.36 (0.90-5.00) 10*3/uL Monocytes # 1.04 H (0.20-1.00) 10*3/uL Eosinophils # 0.43 H (0.04-0.35) 10*3/uL Basophils # 0.04 (0.00-0.10) 10*3/uL Sodium (137-145) mmol/L Potassium (3.5-5.1) mmol/L Chloride (98-107) mmol/L Carbon Dioxide (22-30) mmol/L Anion Gap mmol/L BUN (7-17) mg/dL Creatinine (0.52-1.04) mg/dL Est GFR (CKD-EPI)AfAm (>60 ml/min/1.73 sqM) Est GFR (CKD-EPI)NonAf (>60 ml/min/1.73 sqM) Glucose (74-99) mg/dL Calcium (8.4-10.2) mg/dL Total Bilirubin (0.2-1.3) mg/dL AST (14-36) U/L ALT (4-34) U/L Alkaline Phosphatase (38-126) U/L Troponin I <0.012 (0.000-0.034) ng/mL NT-Pro-B Natriuret Pep pg/mL Total Protein (6.3-8.2) g/dL Albumin (3.5-5.0) g/dL Urine Color Urine Appearance (Clear) Urine pH (5.0-8.0) Ur Specific [place] (1.001-1.035) Urine Protein (Negative) Urine Glucose (UA) (Negative) Urine Ketones (Negative) Urine Blood (Negative) Urine Nitrite (Negative) Urine Bilirubin (Negative) Urine Urobilinogen (<2.0) mg/dL Ur Leukocyte Esterase (Negative) Urine RBC (0-5) /hpf Urine WBC (0-5) /hpf Ur Squamous Epith Cells (0-4) /hpf Amorphous Sediment (None) /hpf Urine Bacteria (None) /hpf Urine Mucus (None) /hpf Urine Opiates Screen (NotDetected) Ur Oxycodone Screen (NotDetected) Urine Methadone Screen (NotDetected) Ur Barbiturates Screen (NotDetected) U Tricyclic Antidepress (NotDetected) Ur Phencyclidine Scrn (NotDetected) Ur Amphetamines Screen (NotDetected) U Methamphetamines Scrn (NotDetected) U Benzodiazepines Scrn (NotDetected) Urine Cocaine Screen (NotDetected) U Marijuana (THC) Screen (NotDetected) Serum Alcohol mg/dL Disposition Clinical Impression: Opiate withdrawal, Nausea & vomiting Disposition: HOME SELF-CARE Condition: Stable Instructions (If sedation given, give patient instructions): Opioid Withdrawal (ED) Prescriptions: LORazepam [Ativan] 0.5 mg PO BID 3 Days #6 tab Is patient prescribed a controlled substance at d/c from ED?: Yes When asked, does pt state using other controlled substances?: No If prescribed controlled substance>3 days was MAPS reviewed?: Prescribed <3 Days Referrals: Evelyn Blas MD [Primary Care Provider] - 1-2 days Time of Disposition: 21:51
[2024-12-19 21:23] LABS: Basophils # (A) 0.04 10*3/uL (0.00-0.10); Basophils % (A) 0.3 %; Eosinophils # (A) 0.43 10*3/uL (0.04-0.35); Eosinophils % (A) 2.8 %; HCT 37.4 % (37.2-46.3); HGB 11.9 g/dL (12.0-15.0); Lymphocytes # (A) 3.36 10*3/uL (0.90-5.00); Lymphocytes % (A) 21.9 %; MCH 27.2 pg (27.0-32.0); MCHC 31.8 g/dL (32.0-37.0); MCV 85.6 fL (80.0-97.0); Mean Platelet Volume 10.1 fL (9.5-12.2); Monocytes # (A) 1.04 10*3/uL (0.20-1.00); Monocytes % (A) 6.8 %; Neutrophils # (A) 10.44 10*3/uL (1.80-7.70); Neutrophils % (A) 67.8 %; Platelet Count 255 10*3/uL (140-440); RBC 4.37 10*6/uL (4.10-5.20); RDW 15.6 % (11.5-14.5); WBC 15.37 10*3/uL (4.50-10.00)
[2024-12-19] MEDS: ONDANSETRON 4 MG ODT STARTER PACK 2 TAB BTL PO STA (22:03)
[2024-12-19 22:05] VITALS: BP 113/52; RESP 17
== END 2024-12-19 22:12 | disposition home or self-care (01) ==
LOC: EC 18:15
DX: F11.23 Opioid dependence with withdrawal (principal); I50.9 Heart failure, unspecified; J44.89 Other specified chronic obstructive pulmonary disease; Z87.891 Personal history of nicotine dependence; Z88.0 Allergy status to penicillin; Z88.1 Allergy status to other antibiotic agents; Z91.010 Allergy to peanuts; Z91.013 Allergy to seafood; Z91.041 Radiographic dye allergy status; Z88.8 Allergy status to other drugs, medicaments and biological substances
CPT/HCPCS: 36415; 93005; 83880; 80053; 84484; 85025; 81001; 80306; 71046; 99284; 96374; G0480; J2405; S0119; 80320

== ENCOUNTER 2025-01-13 13:18 | Observation (INO) | payer OTHER ==
--- NOTE | 2025-01-13 13:43 | ED ---
General Adult HPI - General Chief complaint: Chest Pain Stated complaint: Chest Pain Time Seen by Provider: 01/13/25 13:25 Source: patient, EMS, RN notes reviewed, old records reviewed Mode of arrival: EMS Limitations: no limitations - History of Present Illness Initial comments: Patient is a 44-year-old female presents emergency department complaint of chest pain. Patient is a frequent visitor to our ER. Has a history of asthma, heart failure, COPD, diabetes, fibromyalgia, hypertension. States that her chest pain started yesterday and she was just sitting around when it started. Support started regarding the onset of the pain. States it is located over the middle of her chest. Does not radiate. No significant nausea with it. No diaphoresis. No radiation. No shortness of breath. Reproducible with movements and on palpation. Presents for further evaluation at this time. States Sublimity helps with her pain. - Related Data Home Medications Medication Instructions Recorded Confirmed INSULIN LISPRO (HumaLOG) [HumaLOG] See Protocol SQ ACHS 12/30/24 12/30/24 Previous Rx's Medication Instructions Recorded Ammonium Lactate Lotion 1 applic TOPICAL BID each 01/04/25 [Lac-Hydrin 12% Lotion] Aspirin EC [Ecotrin Low Dose] 81 mg PO DAILY 30 Days #30 tab 01/04/25 Atorvastatin [Lipitor] 40 mg PO HS 30 Days #30 tab 01/04/25 Dapagliflozin Propanediol [Farxiga] 10 mg PO DAILY 30 Days #30 tab 01/04/25 Divalproex ER [Depakote ER] 500 mg PO HS 30 Days #30 tab 01/04/25 Haloperidol Deconate 50 mg IM QMONTHLY 30 Days #1 01/04/25 INSULIN LISPRO (HumaLOG) [HumaLOG] 0 unit SQ ACHS each 01/04/25 Nystatin 100,000 Unit/gm Powd 1 applic TOPICAL BID each 01/04/25 [Mycostatin Powder] Pantoprazole [Protonix] 40 mg PO AC-BRKFST 30 Days #30 tab 01/04/25 Spironolactone [Aldactone] 25 mg PO DAILY 30 Days #30 tab 01/04/25 busPIRone HCl [Buspar] 5 mg PO BID 30 Days #60 tab 01/04/25 fluvoxaMINE [Luvox] 200 mg PO HS 30 Days #120 tab 01/04/25 hydrOXYzine HCL [Atarax] 25 mg PO BID PRN 30 Days #60 tab 01/04/25 lisinopriL [Zestril] 2.5 mg PO DAILY 30 Days #30 tab 01/04/25 metFORMIN HCL [Glucophage] 1,000 mg PO BID-W/MEALS 30 Days 01/04/25 #120 tab Allergies Allergy/AdvReac Type Severity Reaction Status Date / Time Iodinated Contrast Media Allergy Anaphylaxis Verified 01/13/25 13:27 [Iodinated Contrast Media - IV Dye] lacosamide [From Vimpat] Allergy Anaphylaxis Verified 01/13/25 13:27 peanut Allergy Anaphylaxis Verified 01/13/25 13:27 Penicillins Allergy Anaphylaxis Verified 01/13/25 13:27 shellfish derived Allergy swelling Verified 01/13/25 13:27 all over body cephalexin monohydrate AdvReac Rash, Verified 01/13/25 13:27 [From Keflex] Nausea, Vomiting & Diarrhea trazodone AdvReac bp Verified 01/13/25 13:27 issues/dizziness Review of Systems ROS Statement: Those systems with pertinent positive or pertinent negative responses have been documented in the HPI. Review of Systems: CONST: Denies fever EYES: Denies blurry vision ENT: Denies nasal congestion C/V: Endorses chest wall pain RESP: Denies shortness of breath GI: Denies abdominal pain : Denies dysuria SKIN: Denies rash. MSK: Denies joint pain. NEURO: Denies headache ROS Other: All systems not noted in ROS Statement are negative. Past Medical History Past Medical History: Asthma, Heart Failure, COPD, Diabetes Mellitus, Fibromyalgia, GERD/Reflux, GI Bleed, Hypertension, Liver Disease, Osteoarthritis (OA), Pneumonia, Seizure Disorder, Skin Disorder Additional Past Medical History / Comment(s): Bronchitis, gestational diabetes, seizures with last one 01/2024, sickle cell trait, liver cirrhosis, anemia, chrons, IBS, ulcerative colitis, lowr GI bleed, hemorrhoids, constipation, psoriasis, migraines, chronic low back and cervical pain, scoliosis, arhtritis in multiple joints, gout bilateral feet, History of Any Multi-Drug Resistant Organisms: None Reported Past Surgical History: Cholecystectomy, Orthopedic Surgery Additional Past Surgical History / Comment(s): L oophorectomy d/t cyst, D&C, colonoscopy, L carpal tunnel release, Past Anesthesia/Blood Transfusion Reactions: Motion Sickness, Postoperative Nausea & Vomiting (PONV) Past Psychological History: Anxiety, Bipolar, Depression, Schizophrenia Smoking Status: Former smoker Past Alcohol Use History: None Reported Past Drug Use History: Cocaine - Past Family History Mother History Unknown: Yes Family Medical History: Cancer Additional Family Medical History / Comment(s): Mother had breast cancer and metnal illness She is living. Father Family Medical History: Cancer Additional Family Medical History / Comment(s): Father is . He had agent orange exposure. He had liver cancer, bowel to brain cancer. General Exam - General Exam Comments Initial Comments: General: Appears in no acute distress. HEAD: Normal with no signs of head trauma. EYES: EOMI ENT: Hearing grossly intact, normal oropharynx. RESPIRATORY: Clear breath sounds bilaterally. No wheezes, rales, or rhonchi. C/V: Regular rate and rhythm. S1 and S2 auscultated, no edema, peripheral pulses 2+ and intact throughout. Patient has chest wall pain on palpation over the sternum. ABD: Abd is soft, nontender, nondistended EXT: No obvious deformity SKIN: No rashes or lesions observed on exposed skin. NEURO: Alert and oriented x 4. Limitations: no limitations Course Vital Signs 01/13/25 13:21 Temperature 98.0 F Pulse Rate 64 Respiratory 18 Rate Blood Pressure 122/66 O2 Sat by Pulse 98 Oximetry Medical Decision Making - Medical Decision Making Was pt. sent in by a medical professional or institution (, PA, PERSONAL FITNESS MANAGER, urgent care, hospital, or fdc...) When possible be specific @ -No Did you speak to anyone other than the patient for history (EMS, parent, family, police, friend...)? What history was obtained from this source @ -No Did you review nursing and triage notes (agree or disagree)? Why? @ -I reviewed and agree with nursing and triage notes Were old charts reviewed (outside hosp., previous admission, EMS record, old EKG, old radiological studies, urgent care reports/EKG's, fdc records)? Report findings @ -Today's EKG compared with EKG from November 2024 with no significant acute change. Differential Diagnosis (chest pain, altered mental status, abdominal pain women, abdominal pain men, vaginal bleeding, weakness, fever, dyspnea, syncope, headache, dizziness, GI bleed, back pain, seizure, CVA, palpatations, mental health, musculoskeletal)? @ -Differential Chest Pain: Stable Angina, Unstable Angina, STEMI, NSTEMI Aortic Dissection, Pneumothorax, Musculoskeletal, Esophageal Spasm GERD, Cholecystitis, Pancreatitis, Zoster, this is not meant to be an all-inclusive list. EKG interpreted by me (3pts min.). @ -As above X-rays interpreted by me (1pt min.). @ -Chest x-ray reveals no obvious acute cardiopulmonary process. CT interpreted by me (1pt min.). @ -None done U/S interpreted by me (1pt. min.). @ -None done What testing was considered but not performed or refused? (CT, X-rays, U/S, labs)? Why? @ -None What meds were considered but not given or refused? Why? @ -None Did you discuss the management of the patient with other professionals (professionals i.e. , PA, PERSONAL FITNESS MANAGER, lab, RT, psych nurse, social science analyst, mortgage loan officer originator, teacher, mortgage loan officer originator, skilled nursing case manager)? Give summary @ -Spoke with Dr. Mata who accepted the admission. Was smoking cessation discussed for >3mins.? @ -No Was critical care preformed (if so, how long)? @ -No Were there social determinants of health that impacted care today? How? (Homelessness, low income, unemployed, alcoholism, drug addiction, transportati on, low edu. Level, literacy, decrease access to med. care, [facility], rehab)? @ -No Was there de-escalation of care discussed even if they declined (Discuss DNR or withdrawal of care, Hospice)? DNR status @ -No What co-morbidities impacted this encounter? (DM, HTN, Smoking, COPD, CAD, Cancer, CVA, ARF, Chemo, Hep., AIDS, mental health diagnosis, sleep apnea, morbid obesity)? @ -None Was patient admitted / discharged? Hospital course, mention meds given and route, prescriptions, significant lab abnormalities, going to OR and other pertinent info. @ -Based on patient's presentation physical exam, presents emergency department complaining of chest discomfort. Seems to be chest wall pain. Has been seen here multiple times in the past for this in our department. Vital signs within acceptable limits. Patient be given aspirin, Sublimity, Toradol and we will obtain cardiac workup. Pain has been ongoing for 24 hours or so. She was in agreement this plan. EKG compared with previous EKG shows no obvious acute ischemic changes.Chest x- ray shows no obvious acute cardiopulmonary process. Laboratory studies are remarkable for mild leukocytosis of 12 which is likely reactive. Remainder the labs unremarkable. Troponin is undetectable. Patient is still having some chest discomfort. Seems to be more like atypical chest wall pain however patient states that in the past she has been told by cardiology to obtain further workup and she has either checked out from the hospital or has not followed up. I do believe it is reasonable to admit the patient observation, trend troponins so she can be evaluated by cardiology. She was in agreement this plan. I spoke with the admitting provider, Dr. Mata who accepted the admission. Undiagnosed new problem with uncertain prognosis? @ -No Drug Therapy requiring intensive monitoring for toxicity (Heparin, Nitro, Insulin, Cardizem)? @ -No Were any procedures done? @ -No Diagnosis/symptom? @ - chest pain Acute, or Chronic, or Acute on Chronic? @ -Acute Uncomplicated (without systemic symptoms) or Complicated (systemic symptoms)? @ -Complicated Side effects of treatment? @ -None Exacerbation, Progression, or Severe Exacerbation] @ -No Poses a threat to life or bodily function? @ -Potentially, yes - Lab Data Result diagrams: 01/13/25 13:44 01/13/25 13:44 Lab Results 01/13/25 01/13/25 01/13/25 Range/Units 13:44 13:44 13:44 WBC 12.88 H (4.50-10.00) 10*3/uL RBC 4.67 (4.10-5.20) 10*6/uL Hgb 12.8 (12.0-15.0) g/dL Hct 40.0 (37.2-46.3) % MCV 85.7 (80.0-97.0) fL MCH 27.4 (27.0-32.0) pg MCHC 32.0 (32.0-37.0) g/dL Plt Count 240 (140-440) 10*3/uL MPV 9.6 (9.5-12.2) fL Immature Gran % (Auto) 0.5 % Neutrophils % 77.0 % Lymphocytes % 13.0 % Monocytes % 6.1 % Eosinophils % 3.2 % Basophils % 0.2 % Immature Gran # 0.06 H (0.00-0.04) 10*3/uL Neutrophils # 9.91 H (1.80-7.70) 10*3/uL Lymphocytes # 1.68 (0.90-5.00) 10*3/uL Monocytes # 0.79 (0.20-1.00) 10*3/uL Eosinophils # 0.41 H (0.04-0.35) 10*3/uL Basophils # 0.03 (0.00-0.10) 10*3/uL PT 9.8 L (10.0-12.5) sec INR 0.9 (<1.2) APTT 22.9 (22.0-30.0) sec Sodium 138 (137-145) mmol/L Potassium 4.2 (3.5-5.1) mmol/L Chloride 102 (98-107) mmol/L Carbon Dioxide 23 (22-30) mmol/L Anion Gap 13 mmol/L BUN 11 (7-17) mg/dL Creatinine 0.60 (0.52-1.04) mg/dL Est GFR (CKD-EPI)AfAm >90 (>60 ml/min/1.73 sqM) Est GFR (CKD-EPI)NonAf >90 (>60 ml/min/1.73 sqM) Glucose 241 H (74-99) mg/dL Calcium 9.6 (8.4-10.2) mg/dL Magnesium 1.6 (1.6-2.3) mg/dL Total Bilirubin 0.4 (0.2-1.3) mg/dL AST 31 (14-36) U/L ALT 24 (4-34) U/L Alkaline Phosphatase 113 (38-126) U/L Troponin I (0.000-0.034) ng/mL Total Protein 7.0 (6.3-8.2) g/dL Albumin 3.8 (3.5-5.0) g/dL 01/13/25 Range/Units 13:44 WBC (4.50-10.00) 10*3/uL RBC (4.10-5.20) 10*6/uL Hgb (12.0-15.0) g/dL Hct (37.2-46.3) % MCV (80.0-97.0) fL MCH (27.0-32.0) pg MCHC (32.0-37.0) g/dL Plt Count (140-440) 10*3/uL MPV (9.5-12.2) fL Immature Gran % (Auto) % Neutrophils % % Lymphocytes % % Monocytes % % Eosinophils % % Basophils % % Immature Gran # (0.00-0.04) 10*3/uL Neutrophils # (1.80-7.70) 10*3/uL Lymphocytes # (0.90-5.00) 10*3/uL Monocytes # (0.20-1.00) 10*3/uL Eosinophils # (0.04-0.35) 10*3/uL Basophils # (0.00-0.10) 10*3/uL PT (10.0-12.5) sec INR (<1.2) APTT (22.0-30.0) sec Sodium (137-145) mmol/L Potassium (3.5-5.1) mmol/L Chloride (98-107) mmol/L Carbon Dioxide (22-30) mmol/L Anion Gap mmol/L BUN (7-17) mg/dL Creatinine (0.52-1.04) mg/dL Est GFR (CKD-EPI)AfAm (>60 ml/min/1.73 sqM) Est GFR (CKD-EPI)NonAf (>60 ml/min/1.73 sqM) Glucose (74-99) mg/dL Calcium (8.4-10.2) mg/dL Magnesium (1.6-2.3) mg/dL Total Bilirubin (0.2-1.3) mg/dL AST (14-36) U/L ALT (4-34) U/L Alkaline Phosphatase (38-126) U/L Troponin I <0.012 (0.000-0.034) ng/mL Total Protein (6.3-8.2) g/dL Albumin (3.5-5.0) g/dL - EKG Data -: EKG Interpreted by Me EKG Comments: 12-lead Electrocardiogram Interpretation Note EKG was reviewed and interpreted by myself. 12-lead ECG performed at 1339 is interpreted by me as revealing normal sinus rhythm at a rate of 60 beats per minute. Left axis deviation. MT interval is 158 ms, QRS durations 162 ms, QTc is 449 ms. Chronic right bundle branch block present.. There were no ST or T wave abnormalities to suggest myocardial ischemia or injury. R wave progression across the precordium was satisfactory. By my interpretation this EKG is non- diagnostic for acute ischemia. Compared with EKG from November 2024 with no significant acute change Disposition Clinical Impression: Chest pain Disposition: ADMITTED IP TO THIS HOSP Condition: Stable Referrals: Evelyn Blas MD [Primary Care Provider] - 1-2 days Time of Disposition: 15:21
[2025-01-13 13:53] LABS: Basophils # (A) 0.03 10*3/uL (0.00-0.10); Basophils % (A) 0.2 %; Eosinophils # (A) 0.41 10*3/uL (0.04-0.35); Eosinophils % (A) 3.2 %; HGB 12.8 g/dL (12.0-15.0); Lymphocytes # (A) 1.68 10*3/uL (0.90-5.00); MCH 27.4 pg (27.0-32.0); MCV 85.7 fL (80.0-97.0); Mean Platelet Volume 9.6 fL (9.5-12.2); Monocytes # (A) 0.79 10*3/uL (0.20-1.00); Monocytes % (A) 6.1 %; Neutrophils # (A) 9.91 10*3/uL (1.80-7.70); Platelet Count 240 10*3/uL (140-440); RBC 4.67 10*6/uL (4.10-5.20); RDW 14.7 % (11.5-14.5); WBC 12.88 10*3/uL (4.50-10.00)
[2025-01-13] MEDS: HYDROcodone/APAP 5-325MG 1 EACH TAB PO STA (13:53)
[2025-01-13] MEDS: KETOROLAC 15 MG/ML 1 ML VIAL IVP STA (13:53)
[2025-01-13] MEDS: ASPIRIN 81 MG PO STA (13:53)
[2025-01-13 14:03] LABS: INR 0.9 (<1.2); Partial Thromboplastin Time 22.9 sec (22.0-30.0); Prothrombin Time 9.8 sec (10.0-12.5)
[2025-01-13] MEDS: diphenhydrAMINE 25 MG CAP PO STA (14:05)
--- NOTE | 2025-01-13 14:23 | XR ---
EXAMINATION TYPE: XR chest 2V DATE OF EXAM: 01/13/2025 1:50 PM COMPARISON: Chest radiographs from 12/19/2024 CLINICAL INDICATION: Female, 44 years old with history of Chest Pain; [facility] TECHNIQUE: XR chest 2V Frontal and lateral views of the chest. FINDINGS: Lungs/Pleura: There is no evidence of pleural effusion, focal consolidation, or pneumothorax. Pulmonary vascularity: Unremarkable. Heart/mediastinum: Cardiomediastinal silhouette is unremarkable. Musculoskeletal: No acute osseous pathology. Other findings: None IMPRESSION: No acute cardiopulmonary disease/process. [facility], , 01/13/2025 2:20 PM
[2025-01-13] MEDS: NITROGLYCERIN SL TABS 0.4 MG TAB SUBLINGUAL STA (14:25)
[2025-01-13 14:29] LABS: ALT 24 U/L (4-34); AST 31 U/L (14-36); African American GFR (CKD) >90 (>60 ml/min/1.73 sqM); Albumin 3.8 g/dL (3.5-5.0); Alkaline Phosphatase 113 U/L (38-126); Anion Gap 13 mmol/L; Blood Urea Nitrogen 11 mg/dL (7-17); Calcium 9.6 mg/dL (8.4-10.2); Carbon Dioxide 23 mmol/L (22-30); Chloride 102 mmol/L (98-107); Glucose 241 mg/dL (74-99); Magnesium 1.6 mg/dL (1.6-2.3); Non-African American GFR(CKD) >90 (>60 ml/min/1.73 sqM); Potassium 4.2 mmol/L (3.5-5.1); Sodium 138 mmol/L (137-145); Total Bilirubin 0.4 mg/dL (0.2-1.3)
[2025-01-13] MEDS ORDERED: ONDANSETRON 4 MG/2 ML VIAL IVP PRN (15:19)
[2025-01-13] MEDS ORDERED: NALOXONE 0.4 MG/ML 1 ML VIAL IV PRN (15:19)
[2025-01-13] MEDS ORDERED: hydrOXYzine HCL 25 MG TAB PO PRN (17:48)
[2025-01-13] MEDS ORDERED: ALBUTEROL NEBULIZED 2.5 MG/3 ML INHALATION PRN (17:48)
[2025-01-13] MEDS ORDERED: ACETAMINOPHEN TAB 325 MG TAB PO PRN (17:49)
[2025-01-13] MEDS ORDERED: DEXTROSE 50% SYRINGE 50 ML IVP PRN ×2 (17:50)
[2025-01-13] MEDS: SYMBICORT 80-4.5 MCG INHALER INHALATION SCH (18:35)
[2025-01-13 20:14] LABS: Glucose,Whole Blood 152 mg/dL (70-110)
[2025-01-13] MEDS: busPIRone HCl 5 MG TAB PO SCH (21:35)
[2025-01-13] MEDS: ATORVASTATIN 40 MG TAB PO SCH (21:35)
[2025-01-13] MEDS: DIVALPROEX ER 500 MG TAB.ER.24H PO SCH (21:35)
[2025-01-13] MEDS: INSULIN LISPRO (HumaLOG) 100 UNIT/ML 10 mL VL SQ SCH (21:36)
[2025-01-14 05:43] LABS: Glucose,Whole Blood 202 mg/dL (70-110)
[2025-01-14] MEDS: metFORMIN 500 MG TAB PO SCH (06:11)
[2025-01-14 09:23] LABS: Basophils # (A) 0.09 X 10*3/uL (0.00-0.10); Basophils % (A) 0.7 %; Eosinophils # (A) 0.57 X 10*3/uL (0.04-0.35); Eosinophils % (A) 4.2 %; HCT 41.5 % (37.2-46.3); HGB 12.4 g/dL (12.0-15.0); Lymphocytes # (A) 3.25 X 10*3/uL (0.90-5.00); Lymphocytes % (A) 24.2 %; MCH 26.6 pg (27.0-32.0); MCHC 29.9 g/dL (32.0-37.0); MCV 89.1 FL (80.0-97.0); Mean Platelet Volume 10.8 FL (9.5-12.2); Monocytes # (A) 0.82 X 10*3/uL (0.20-1.00); Monocytes % (A) 6.1 %; NRBC Per 100 WBC 0 X 10*3/uL (0.00-0.01); Neutrophils % (A) 64.1 %; Platelet Count 244 X 10*3/uL (140-440); RBC 4.66 X 10*6/uL (4.10-5.20); RDW 14.7 % (11.5-14.5); WBC 13.43 X 10*3/uL (4.50-10.00)
[2025-01-14 09:29] LABS: BUN/Creat Ratio 16.38 Ratio (12.00-20.00); Blood Urea Nitrogen 13.1 mg/dL (9.0-27.0); Glucose 164 mg/dL (70-110)
[2025-01-14 09:30] LABS: ALT 21 U/L (8-44); AST 20 U/L (13-35); Albumin 3.6 g/dL (3.8-4.9); Albumin/Globulin Ratio 1.16 Ratio (1.60-3.17); Alkaline Phosphatase 128 U/L (41-126); Calcium 8.9 mg/dL (8.7-10.3); Carbon Dioxide 23.2 mmol/L (21.6-31.8); Chloride 103 mmol/L (96-109); Globulin 3.1 g/dL (1.6-3.3); Potassium 4.4 mmol/L (3.5-5.5); Sodium 139 mmol/L (135-145); Total Bilirubin <0.2 mg/dL (0.3-1.2); Total Protein 6.7 g/dL (6.2-8.2)
[2025-01-14] MEDS: ASPIRIN 81 MG PO SCH (10:58)
[2025-01-14] MEDS: PANTOPRAZOLE 40 MG TABLET PO SCH (10:58)
[2025-01-14] MEDS: DAPAGLIFLOZIN PROPANEDIOL 10 MG TABLET PO SCH (10:58)
[2025-01-14] MEDS: ENOXAPARIN 40 MG/0.4 ML SYRINGE SQ SCH (10:58)
[2025-01-14] MEDS: NALTREXONE HCL 50 MG TAB PO SCH (10:59)
[2025-01-14] MEDS: SPIRONOLACTONE 25 MG TAB PO SCH (10:59)
[2025-01-14] MEDS: KETOROLAC 15 MG/ML 1 ML VIAL IVP PRN (11:29)
--- NOTE | 2025-01-14 12:05 | P.CRDCN ---
History of Present Illness Consult date: 01/14/25 Consult reason: chest pain History of present illness: This is a 44-year-old female patient of Dr. Steel with past medical history of dyspnea on exertion, substernal chest pressure, diabetes mellitus type 2, dyslipidemia, morbid obesity, bipolar disorder and schizophrenia, history of prior marijuana use and cocaine use and stopped since May 2024 when she was [facility]. We have been asked to evaluate the patient for chest pain. Patient states that she has had chest pain for the past 2 days. Patient states she was sitting when she had onset of the chest pain and is in the middle of her chest. Pain does not radiate. No associated symptoms. It is worse with movement. Blood pressure 98/57, heart rate 52, also ox 97% on room air. Discussed recommendations for stress testing on Wednesday and patient is agreeable to move forward with this. -EKG: Sinus rhythm with right bundle branch block unchanged from previous -Chest x-ray: No acute process. -Laboratory studies: WBC 13.4, hemoglobin 12.4. Creatinine 0.8, potassium 4.4. Troponin negative x 3. A1c 7.2 -Home cardiac medications: Aspirin 81 mg daily, atorvastatin 40 mg at bedtime, Farxiga 10 mg daily, lisinopril 2.5 mg daily, spironolactone 25 mg daily. -Dobutamine stress test performed at [facility] on 12/23/2020 revealed abnormal twelve-lead EKG with right bundle branch block, left anterior fascicular block but without any ST segment changes. With dobutamine infusion there was no EKG or echocardiographic evidence of ischemia. -Echocardiogram performed at [facility] on 12/18/2019 revealed EF of 55 to 60%. Review Of Systems: At the time of my exam: CONSTITUTIONAL: Denies fever or chills. HEENT: Denies blurred vision, vision changes, or eye pain. Denies hemoptysis CARDIOVASCULAR: Denies chest pain. Denies orthopnea. Denies PND. Denies palpitations RESPIRATORY: Denies shortness of breath. GASTROINTESTINAL: Denies abdominal pain. Denies nausea or vomiting. HEMATOLOGIC: Denies bleeding disorders. GENITOURINARY: Denies any blood in urine. SKIN: Denies puritis. Denies rash. Physical examination: Gen: This is a 44-year-old morbidly obese female in no acute distress VS: reviewed HEENT: Head is atraumatic, normocephalic. Pupils equal, round. Sclerae is anicteric. NECK: Supple. No JVD. LUNGS: Clear to auscultation. No wheezes or rhonchi. No intercostal retractions. HEART: Regular rate and rhythm. No murmur. ABDOMEN: Soft No tenderness. EXTREMITIES: No pedal edema. No calf tenderness. NEUROLOGICAL: Patient is awake, alert and oriented x3. Assessment: Atypical chest pain, acute coronary syndrome ruled out Right bundle branch block and unchanged from previous Chronic dyspnea on exertion Chronic intermittent episodes of chest pain Diabetes mellitus type 2" controlled with hyperglycemia, A1c 7.2 Dyslipidemia Morbid obesity with BMI of 46 Plan: Resume patient's home cardiac medications Obtain dobutamine stress test tomorrow, 16 N.p.o. after midnight Obtain 2-D echocardiogram and Doppler study to assess cardiac structure and function If above testing is unremarkable, patient is cleared for discharge and may follow-up with Dr. Steel in 1 to 2 weeks. Thank you kindly for this consultation. Nurse practitioner note has been reviewed, I agree with documented findings and plan of care. Patient was seen and examined. Past Medical History Past Medical History: Asthma, Heart Failure, COPD, Diabetes Mellitus, Fibromyalgia, GERD/Reflux, GI Bleed, Hypertension, Liver Disease, Osteoarthritis (OA), Pneumonia, Seizure Disorder, Skin Disorder Additional Past Medical History / Comment(s): Bronchitis, gestational diabetes, seizures with last one 01/2024, sickle cell trait, liver cirrhosis, anemia, chrons, IBS, ulcerative colitis, lowr GI bleed, hemorrhoids, constipation, psoriasis, migraines, chronic low back and cervical pain, scoliosis, arhtritis in multiple joints, gout bilateral feet, History of Any Multi-Drug Resistant Organisms: None Reported Past Surgical History: Cholecystectomy, Orthopedic Surgery Additional Past Surgical History / Comment(s): L oophorectomy d/t cyst, D&C, colonoscopy, L carpal tunnel release, Past Anesthesia/Blood Transfusion Reactions: Motion Sickness, Postoperative Nausea & Vomiting (PONV) Past Psychological History: Anxiety, Bipolar, Depression, Schizophrenia Additional Psychological History / Comment(s): Personality Disorder. She is seen at [facility]. Pt has a learning disability and can read some. She has a [place] public legal guardian. Smoking Status: Former smoker Past Alcohol Use History: None Reported Additional Past Alcohol Use History / Comment(s): Pt states she has not drank alcohol in 15 years. Past Drug Use History: Cocaine Additional Drug Use History / Comment(s): Pt states she quit crack 1 week ago. UDS positive this admission for cocaine, "I smoked crack". - Past Family History Mother History Unknown: Yes Family Medical History: Cancer Additional Family Medical History / Comment(s): Mother had breast cancer and metnal illness She is living. Father Family Medical History: Cancer Additional Family Medical History / Comment(s): Father is . He had agent orange exposure. He had liver cancer, bowel to brain cancer. Medications and Allergies Home Medications Medication Instructions Recorded Confirmed Type Ammonium Lactate Lotion 1 applic TOPICAL BID each 01/04/25 01/13/25 Rx [Lac-Hydrin 12% Lotion] Aspirin EC [Ecotrin Low Dose] 81 mg PO DAILY 30 Days #30 tab 01/04/25 01/13/25 Rx Atorvastatin [Lipitor] 40 mg PO HS 30 Days #30 tab 01/04/25 01/13/25 Rx Dapagliflozin Propanediol [Farxiga] 10 mg PO DAILY 30 Days #30 tab 01/04/25 01/13/25 Rx Divalproex ER [Depakote ER] 500 mg PO HS 30 Days #30 tab 01/04/25 01/13/25 Rx Nystatin 100,000 Unit/gm Powd 1 applic TOPICAL BID each 01/04/25 01/13/25 Rx [Mycostatin Powder] Spironolactone [Aldactone] 25 mg PO DAILY 30 Days #30 tab 01/04/25 01/13/25 Rx busPIRone HCl [Buspar] 5 mg PO BID 30 Days #60 tab 01/04/25 01/13/25 Rx fluvoxaMINE [Luvox] 200 mg PO HS 30 Days #120 tab 01/04/25 01/13/25 Rx hydrOXYzine HCL [Atarax] 25 mg PO BID PRN 30 Days #60 tab 01/04/25 01/13/25 Rx lisinopriL [Zestril] 2.5 mg PO DAILY 30 Days #30 tab 01/04/25 01/13/25 Rx metFORMIN HCL [Glucophage] 1,000 mg PO BID-W/MEALS 30 Days 01/04/25 01/13/25 Rx #120 tab Albuterol Inhaler [Ventolin Hfa 2 puff INHALATION RT-Q6H PRN 01/13/25 01/13/25 History Inhaler] Budesonide/Formoterol Fumarate 2 puff INHALATION DIRECTED 01/13/25 01/13/25 History [Symbicort 80-4.5 Mcg Inhaler] Haloperidol Decanoate 50 mg IM Q28D 01/13/25 01/13/25 History Naltrexone HCl [Revia] 50 mg PO DAILY 01/13/25 01/13/25 History Omeprazole 20 mg PO DAILY 01/13/25 01/13/25 History Ondansetron Odt [Zofran Odt] 4 mg PO Q12HR PRN 01/13/25 01/13/25 History Trigels-F Forte (Ferrous Fum-Vit 1 cap PO DAILY 01/13/25 01/13/25 History C-Vit B12-Fa) 460-60-0.01-1 Mg Allergies Allergy/AdvReac Type Severity Reaction Status Date / Time Iodinated Contrast Media Allergy Anaphylaxis Verified 01/13/25 16:29 [Iodinated Contrast Media - IV Dye] lacosamide [From Vimpat] Allergy Anaphylaxis Verified 01/13/25 16:29 peanut Allergy Anaphylaxis Verified 01/13/25 16:29 Penicillins Allergy Anaphylaxis Verified 01/13/25 16:29 shellfish derived Allergy swelling Verified 01/13/25 16:29 all over body cephalexin monohydrate AdvReac Rash, Verified 01/13/25 16:29 [From Keflex] Nausea, Vomiting & Diarrhea trazodone AdvReac bp Verified 01/13/25 16:29 issues/dizziness Physical Exam Vitals: Vital Signs Temp Pulse Pulse Resp BP BP Pulse Ox 01/14/25 07:00 98.3 F 52 L 15 98/57 97 01/14/25 02:02 50 L 15 01/14/25 02:00 98.2 F 50 L 15 100/60 97 01/13/25 21:48 60 16 01/13/25 20:00 98 F 60 16 138/80 99 01/13/25 18:33 16 01/13/25 18:21 51 L 18 114/63 97 01/13/25 17:01 48 L 18 105/52 100 01/13/25 13:21 98.0 F 64 18 122/66 98 Intake and Output 01/13/25 01/14/25 01/14/25 22:59 06:59 14:59 Other: Voiding Method Toilet Toilet Toilet # Voids 1 1 Weight 121.563 kg Results 01/14/25 04:18 01/14/25 04:18 Cardiac Enzymes 01/13/25 01/13/25 01/13/25 Range/Units 13:44 13:44 16:47 AST 31 (14-36) U/L Troponin I <0.012 <0.012 (0.000-0.034) ng/mL 01/13/25 01/14/25 Range/Units 21:52 04:18 AST 20 (14-36) U/L Troponin I <0.012 (0.000-0.034) ng/mL Coagulation 01/13/25 Range/Units 13:44 PT 9.8 L (10.0-12.5) sec APTT 22.9 (22.0-30.0) sec CBC 01/13/25 01/14/25 Range/Units 13:44 04:18 WBC 12.88 H 13.43 H (4.50-10.00) 10*3/uL RBC 4.67 4.66 (4.10-5.20) 10*6/uL Hgb 12.8 12.4 (12.0-15.0) g/dL Hct 40.0 41.5 (37.2-46.3) % Plt Count 240 244 (140-440) 10*3/uL Comprehensive Metabolic Panel 01/13/25 01/14/25 Range/Units 13:44 04:18 Sodium 138 139 (137-145) mmol/L Potassium 4.2 4.4 (3.5-5.1) mmol/L Chloride 102 103 (98-107) mmol/L Carbon Dioxide 23 23.2 (22-30) mmol/L BUN 11 13.1 (7-17) mg/dL Creatinine 0.60 0.8 (0.52-1.04) mg/dL Glucose 241 H 164 H (74-99) mg/dL Calcium 9.6 8.9 (8.4-10.2) mg/dL AST 31 20 (14-36) U/L ALT 24 21 (4-34) U/L Alkaline Phosphatase 113 128 H (38-126) U/L Total Protein 7.0 6.7 (6.3-8.2) g/dL Albumin 3.8 3.6 L (3.5-5.0) g/dL Current Medications Generic Name Dose Route Start Last Admin Trade Name Freq PRN Reason Stop Dose Admin Acetaminophen 650 mg 01/13/25 17:49 Acetaminophen Tab 325 Mg Tab PO Q6HR PRN Fever and/ or Pain Albuterol Sulfate 2.5 mg 01/13/25 17:48 Albuterol Nebulized 2.5 Mg/3 Ml INHALATION RT-Q6H PRN Shortness Of Breath Aspirin 81 mg 01/14/25 09:00 Aspirin 81 Mg PO DAILY ZHANG Atorvastatin Calcium 40 mg 01/13/25 21:00 01/13/25 21:35 Atorvastatin 40 Mg Tab PO 40 mg HS ZHANG Administration Budesonide/Formoterol Fumarate 2 puff 01/13/25 20:00 01/14/25 08:37 Symbicort 80-4.5 Mcg Inhaler INHALATION Not Given RT-BID ZHANG Buspirone HCl 5 mg 01/13/25 21:00 01/13/25 21:35 Buspirone Hcl 5 Mg Tab PO 5 mg BID ZHANG Administration Dapagliflozin 10 mg 01/14/25 09:00 Dapagliflozin Propanediol 10 Mg Tablet PO DAILY ZHANG Dextrose/Water 25 ml 01/13/25 17:50 Dextrose 50% Syringe 50 Ml IVP PER PROTOCOL PRN Hypoglycemia Protocol Dextrose/Water 50 ml 01/13/25 17:50 Dextrose 50% Syringe 50 Ml IVP PER PROTOCOL PRN Hypoglycemia Protocol Divalproex Sodium 500 mg 01/13/25 21:00 01/13/25 21:35 Divalproex Er 500 Mg Tab.Er.24h PO 500 mg HS ZHANG Administration Enoxaparin Sodium 40 mg 01/14/25 09:00 Enoxaparin 40 Mg/0.4 Ml Syringe SQ DAILY ZHANG Fluvoxamine Maleate 200 mg 01/13/25 21:00 01/13/25 21:35 Fluvoxamine 50 Mg Tab PO 200 mg HS ZHANG Administration Hydroxyzine HCl 25 mg 01/13/25 17:48 Hydroxyzine Hcl 25 Mg Tab PO BID PRN Anxiety Insulin Human Lispro 0 unit 01/13/25 21:00 01/14/25 06:11 Insulin Lispro (Humalog) 100 Unit/Ml 10 Ml Vl SQ 2 unit ACHS ZHANG Administration Protocol Ketorolac Tromethamine 15 mg 01/13/25 17:49 Ketorolac 15 Mg/Ml 1 Ml Vial IVP 01/18/25 17:49 Q6HR PRN Pain Lisinopril 2.5 mg 01/14/25 09:00 Lisinopril 2.5 Mg Tab PO DAILY [facility] Metformin HCl 1,000 mg 01/14/25 07:30 01/14/25 06:11 Metformin 500 Mg Tab PO 1,000 mg BID-W/MEALS [facility] Administration Naloxone HCl 0.2 mg 01/13/25 15:19 Naloxone 0.4 Mg/Ml 1 Ml Vial IV Q2M PRN Opioid Reversal Naltrexone HCl 50 mg 01/14/25 09:00 Naltrexone Hcl 50 Mg Tab PO DAILY [facility] Ondansetron HCl 4 mg 01/13/25 15:19 Ondansetron 4 Mg/2 Ml Vial IVP Q8HR PRN Nausea And Vomiting Ondansetron HCl 4 mg 01/13/25 17:48 Ondansetron Odt 4 Mg Tab PO Q12HR PRN Nausea Pantoprazole Sodium 40 mg 01/14/25 09:00 Pantoprazole 40 Mg Tablet PO DAILY [facility] Spironolactone 25 mg 01/14/25 09:00 Spironolactone 25 Mg Tab PO DAILY [facility] Intake and Output 01/13/25 01/14/25 01/14/25 22:59 06:59 14:59 Other: Voiding Method Toilet Toilet Toilet # Voids 1 1 Weight 121.563 kg 01/14/25 04:18 01/14/25 04:18
[2025-01-14 12:21] LABS: Glucose,Whole Blood 153 mg/dL (70-110)
--- NOTE | 2025-01-14 12:53 | P.HPIM ---
History of Present Illness Patient is a 44-year-old female came in with substernal pressure-like chest pain 9/10 in severity. Patient states she has 9 out of 10 pain but she is really comfortable and was resting when I evaluated the patient patient's chest pain is reproducible. Chest pain is nonradiating no associated lightheadedness shortness of breath although patient blood pressure is on the lower side. Patient does have past medical history of type 2 diabetes mellitus dyslipidemia morbid obesity bipolar disorder schizophrenia history of marijuana and cocaine use in the past stopped in May 2024. Patient does not have any fever chills does have leukocytosis with elevated white count of 13,000 patient denied any symptoms of UTI denied any cough chest x-ray within normal limits I do not have any urinalysis available patient does have some candidal intertrigo for which patient is on nystatin. REVIEW OF SYSTEMS: All other systems are negative except those mentioned in the HPI PHYSICAL EXAMINATION: GENERAL: The patient is alert and oriented x3, not in any acute distress. Well developed, well nourished. Obese HEENT: Pupils are round and equally reacting to light. EOMI. No scleral icterus. No conjunctival pallor. Normocephalic, atraumatic. No pharyngeal erythema. No thyromegaly. CARDIOVASCULAR: S1 and S2 present. No murmurs, rubs, or gallops. PULMONARY: Chest is clear to auscultation, no wheezing or crackles. ABDOMEN: Soft, nontender, nondistended, normoactive bowel sounds. No palpable organomegaly. MUSCULOSKELETAL: No joint swelling or deformity. EXTREMITIES: No cyanosis, clubbing, or pedal edema. NEUROLOGICAL: Gross neurological examination did not reveal any focal deficits. SKIN: No rashes. Assessment and plan -Chest pain appears to be musculoskeletal reproducible, cardiology evaluate the patient recommending stress test patient did undergo stress test tomorrow - Leukocytosis: Etiology is not clear no evidence of infection at this time except for mild candidal intertrigo I will obtain urinalysis as I cannot explain has leukocytosis. - Morbid obesity: Patient will benefit from sleep study if it is not already done - COPD without any acute exacerbation - Type 2 diabetes mellitus previous hemoglobin A1c of 7.2 resumed on her home medications for this - Hypertension - Seizure disorder - Gastroesophageal reflux disease - Bipolar disorder - Fibromyalgia - Depression DVT prophylaxis: Early ambulation Past Medical History Past Medical History: Asthma, Heart Failure, COPD, Diabetes Mellitus, Fibromyalgia, GERD/Reflux, GI Bleed, Hypertension, Liver Disease, Osteoarthritis (OA), Pneumonia, Seizure Disorder, Skin Disorder Additional Past Medical History / Comment(s): Bronchitis, gestational diabetes, seizures with last one 01/2024, sickle cell trait, liver cirrhosis, anemia, chrons, IBS, ulcerative colitis, lowr GI bleed, hemorrhoids, constipation, psoriasis, migraines, chronic low back and cervical pain, scoliosis, arhtritis in multiple joints, gout bilateral feet, History of Any Multi-Drug Resistant Organisms: None Reported Past Surgical History: Cholecystectomy, Orthopedic Surgery Additional Past Surgical History / Comment(s): L oophorectomy d/t cyst, D&C, colonoscopy, L carpal tunnel release, Past Anesthesia/Blood Transfusion Reactions: Motion Sickness, Postoperative Nausea & Vomiting (PONV) Past Psychological History: Anxiety, Bipolar, Depression, Schizophrenia Additional Psychological History / Comment(s): Personality Disorder. She is seen at [facility]. Pt has a learning disability and can read some. She has a [facility] public legal guardian. Smoking Status: Former smoker Past Alcohol Use History: None Reported Additional Past Alcohol Use History / Comment(s): Pt states she has not drank alcohol in 15 years. Past Drug Use History: Cocaine Additional Drug Use History / Comment(s): Pt states she quit crack 1 week ago. UDS positive this admission for cocaine, "I smoked crack". - Past Family History Mother History Unknown: Yes Family Medical History: Cancer Additional Family Medical History / Comment(s): Mother had breast cancer and metnal illness She is living. Father Family Medical History: Cancer Additional Family Medical History / Comment(s): Father is . He had agent orange exposure. He had liver cancer, bowel to brain cancer. Medications and Allergies Home Medications Medication Instructions Recorded Confirmed Type Ammonium Lactate Lotion 1 applic TOPICAL BID each 01/04/25 01/13/25 Rx [Lac-Hydrin 12% Lotion] Aspirin EC [Ecotrin Low Dose] 81 mg PO DAILY 30 Days #30 tab 01/04/25 01/13/25 Rx Atorvastatin [Lipitor] 40 mg PO HS 30 Days #30 tab 01/04/25 01/13/25 Rx Dapagliflozin Propanediol [Farxiga] 10 mg PO DAILY 30 Days #30 tab 01/04/25 01/13/25 Rx Divalproex ER [Depakote ER] 500 mg PO HS 30 Days #30 tab 01/04/25 01/13/25 Rx Nystatin 100,000 Unit/gm Powd 1 applic TOPICAL BID each 01/04/25 01/13/25 Rx [Mycostatin Powder] Spironolactone [Aldactone] 25 mg PO DAILY 30 Days #30 tab 01/04/25 01/13/25 Rx busPIRone HCl [Buspar] 5 mg PO BID 30 Days #60 tab 01/04/25 01/13/25 Rx fluvoxaMINE [Luvox] 200 mg PO HS 30 Days #120 tab 01/04/25 01/13/25 Rx hydrOXYzine HCL [Atarax] 25 mg PO BID PRN 30 Days #60 tab 01/04/25 01/13/25 Rx lisinopriL [Zestril] 2.5 mg PO DAILY 30 Days #30 tab 01/04/25 01/13/25 Rx metFORMIN HCL [Glucophage] 1,000 mg PO BID-W/MEALS 30 Days 01/04/25 01/13/25 Rx #120 tab Albuterol Inhaler [Ventolin Hfa 2 puff INHALATION RT-Q6H PRN 01/13/25 01/13/25 History Inhaler] Budesonide/Formoterol Fumarate 2 puff INHALATION DIRECTED 01/13/25 01/13/25 History [Symbicort 80-4.5 Mcg Inhaler] Haloperidol Decanoate 50 mg IM Q28D 01/13/25 01/13/25 History Naltrexone HCl [Revia] 50 mg PO DAILY 01/13/25 01/13/25 History Omeprazole 20 mg PO DAILY 01/13/25 01/13/25 History Ondansetron Odt [Zofran Odt] 4 mg PO Q12HR PRN 01/13/25 01/13/25 History Trigels-F Forte (Ferrous Fum-Vit 1 cap PO DAILY 01/13/25 01/13/25 History C-Vit B12-Fa) 460-60-0.01-1 Mg Allergies Allergy/AdvReac Type Severity Reaction Status Date / Time Iodinated Contrast Media Allergy Anaphylaxis Verified 01/13/25 16:29 [Iodinated Contrast Media - IV Dye] lacosamide [From Vimpat] Allergy Anaphylaxis Verified 01/13/25 16:29 peanut Allergy Anaphylaxis Verified 01/13/25 16:29 Penicillins Allergy Anaphylaxis Verified 01/13/25 16:29 shellfish derived Allergy swelling Verified 01/13/25 16:29 all over body cephalexin monohydrate AdvReac Rash, Verified 01/13/25 16:29 [From Keflex] Nausea, Vomiting & Diarrhea trazodone AdvReac bp Verified 01/13/25 16:29 issues/dizziness Physical Exam Vitals: Vital Signs Temp Pulse Pulse Resp BP BP Pulse Ox 01/14/25 07:00 98.3 F 52 L 15 98/57 97 01/14/25 02:02 50 L 15 01/14/25 02:00 98.2 F 50 L 15 100/60 97 01/13/25 21:48 60 16 01/13/25 20:00 98 F 60 16 138/80 99 01/13/25 18:33 16 01/13/25 18:21 51 L 18 114/63 97 01/13/25 17:01 48 L 18 105/52 100 01/13/25 13:21 98.0 F 64 18 122/66 98 Intake and Output 01/13/25 01/14/25 01/14/25 22:59 06:59 14:59 Other: Voiding Method Toilet Toilet Toilet # Voids 1 1 Weight 121.563 kg Results CBC & Chem 7: 01/14/25 04:18 01/14/25 04:18 Labs: Abnormal Lab Results - Last 24 Hours (Table) 01/13/25 01/13/25 01/13/25 Range/Units 13:44 13:44 13:44 WBC 12.88 H (4.50-10.00) 10*3/uL MCH (27.0-32.0) pg MCHC (32.0-37.0) g/dL RDW (11.5-14.5) % Immature Gran # 0.06 H (0.00-0.04) 10*3/uL Neutrophils # 9.91 H (1.80-7.70) 10*3/uL Eosinophils # 0.41 H (0.04-0.35) 10*3/uL PT 9.8 L (10.0-12.5) sec Anion Gap (4.00-12.00) mmol/L Glucose 241 H (74-99) mg/dL POC Glucose (mg/dL) (70-110) mg/dL Hemoglobin A1c (<=6.0) % Total Bilirubin (0.3-1.2) mg/dL Alkaline Phosphatase (41-126) U/L Albumin (3.8-4.9) g/dL Albumin/Globulin Ratio (1.60-3.17) Ratio 01/13/25 01/13/25 01/14/25 Range/Units 20:13 21:52 04:18 WBC 13.43 H (4.50-10.00) 10*3/uL MCH 26.6 L (27.0-32.0) pg MCHC 29.9 L (32.0-37.0) g/dL RDW 14.7 H (11.5-14.5) % Immature Gran # 0.10 H (0.00-0.04) 10*3/uL Neutrophils # 8.60 H (1.80-7.70) 10*3/uL Eosinophils # 0.57 H (0.04-0.35) 10*3/uL PT (10.0-12.5) sec Anion Gap (4.00-12.00) mmol/L Glucose (74-99) mg/dL POC Glucose (mg/dL) 152 H (70-110) mg/dL Hemoglobin A1c 7.2 H (<=6.0) % Total Bilirubin (0.3-1.2) mg/dL Alkaline Phosphatase (41-126) U/L Albumin (3.8-4.9) g/dL Albumin/Globulin Ratio (1.60-3.17) Ratio 01/14/25 01/14/25 01/14/25 Range/Units 04:18 05:42 12:16 WBC (4.50-10.00) 10*3/uL MCH (27.0-32.0) pg MCHC (32.0-37.0) g/dL RDW (11.5-14.5) % Immature Gran # (0.00-0.04) 10*3/uL Neutrophils # (1.80-7.70) 10*3/uL Eosinophils # (0.04-0.35) 10*3/uL PT (10.0-12.5) sec Anion Gap 12.80 H (4.00-12.00) mmol/L Glucose 164 H (74-99) mg/dL POC Glucose (mg/dL) 202 H 153 H (70-110) mg/dL Hemoglobin A1c (<=6.0) % Total Bilirubin <0.2 L (0.3-1.2) mg/dL Alkaline Phosphatase 128 H (41-126) U/L Albumin 3.6 L (3.8-4.9) g/dL Albumin/Globulin Ratio 1.16 L (1.60-3.17) Ratio Thrombosis Risk Factor Assmnt - Choose All That Apply Any of the Below Risk Factors Present?: Yes Each Factor Represents 1 point: Age 41-60 years, Obesity (BMI >25) Other Risk Factors: No Other congenital or acquired thrombophilia - If yes, enter type in comment: No Thrombosis Risk Factor Assessment Total Risk Factor Score: 2 Thrombosis Risk Factor Assessment Level: Low Risk
[2025-01-14 13:51] LABS: Appearance,Urine Clear (Clear); Bilirubin,Urine Negative (Negative); Blood,Urine Negative (Negative); Color,Urine Colorless; Glucose,Urine (UA) 4+ (Negative); Ketones,Urine Negative (Negative); Leukocyte Esterase,Urine Negative (Negative); Nitrite,Urine Negative (Negative); Protein,Urine Negative (Negative); Specific Gravity,Urine 1.011 (1.001-1.035); Urobilinogen,Urine <2.0 mg/dL (<2.0)
[2025-01-14 17:14] LABS: Glucose,Whole Blood 170 mg/dL (70-110)
[2025-01-14 20:13] LABS: Glucose,Whole Blood 145 mg/dL (70-110)
[2025-01-14] MEDS: NYSTATIN 100,000 UNIT/GM POWD 15 GM TOPICAL SCH (20:51)
[2025-01-15 05:57] LABS: Glucose,Whole Blood 160 mg/dL (70-110)
[2025-01-15] MEDS ORDERED: DOBUTamine DRIP for NUC MED 500 MG in DEXTROSE/WATER 1 250ML.BAG IV PRN (06:00)
[2025-01-15 07:37] VITALS: TEMP 97.9
--- NOTE | 2025-01-15 08:30 | P.PN ---
Subjective This is a 44-year-old female patient of Dr. Steel with past medical history of dyspnea on exertion, substernal chest pressure, diabetes mellitus type 2, dyslipidemia, morbid obesity, bipolar disorder and schizophrenia, history of prior marijuana use and cocaine use and stopped since May 2024 when she was transferred to a jail. We have been asked to evaluate the patient for chest pain. Patient states that she has had chest pain for the past 2 days. Patient states she was sitting when she had onset of the chest pain and is in the middle of her chest. Pain does not radiate. No associated symptoms. It is worse with movement. Blood pressure 98/57, heart rate 52, also ox 97% on room air. Discussed recommendations for stress testing on Wednesday and patient is agreeable to move forward with this. -EKG: Sinus rhythm with right bundle branch block unchanged from previous -Chest x-ray: No acute process. -Laboratory studies: WBC 13.4, hemoglobin 12.4. Creatinine 0.8, potassium 4.4. Troponin negative x 3. A1c 7.2 -Home cardiac medications: Aspirin 81 mg daily, atorvastatin 40 mg at bedtime, Farxiga 10 mg daily, lisinopril 2.5 mg daily, spironolactone 25 mg daily. -Dobutamine stress test performed at [facility] on 12/23/2020 revealed abnormal twelve-lead EKG with right bundle branch block, left anterior fascicular block but without any ST segment changes. With dobutamine infusion there was no EKG or echocardiographic evidence of ischemia. -Echocardiogram performed at [facility] on 12/18/2019 revealed EF of 55 to 60%. 01/15 Patient seen and examined. Patient states she was feeling her heart racing last night and feeling dizzy and chest pain during the episode. Monitor shows sinus rhythm sinus bradycardia with no significant arrhythmias. She was having some bradycardia with reported heart rate into the 30s however appears mainly 39-40s and mainly during sleeping hours. She does have Mallampati 4 and likely sleep apnea. Physical examination: Gen: This is a 44-year-old morbidly obese female in no acute distress VS: reviewed HEENT: Head is atraumatic, normocephalic. Pupils equal, round. Sclerae is anicteric. NECK: Supple. No JVD. LUNGS: Clear to auscultation. No wheezes or rhonchi. No intercostal retractions. HEART: Regular rate and rhythm. No murmur. ABDOMEN: Soft No tenderness. EXTREMITIES: No pedal edema. No calf tenderness. NEUROLOGICAL: Patient is awake, alert and oriented x3. Assessment: Atypical chest pain, acute coronary syndrome ruled out Right bundle branch block and unchanged from previous Chronic dyspnea on exertion Chronic intermittent episodes of chest pain Diabetes mellitus type 2" controlled with hyperglycemia, A1c 7.2 Dyslipidemia Morbid obesity with BMI of 46 Likely sleep apnea Bradycardia Dizziness Palpitations Plan: Await 2D echo and stress test. If unrevealing patient may be discharged home. She is having intermittent bradycardia worsened at night likely related mainly to sleep apnea. She is complaining of some atypical chest pain and palpitations however on monitor normal sinus rhythm and sinus bradycardia. Does not appear she is symptomatic from her bradycardia. If workup negative patient may be discharge home Objective - Vital Signs Vital signs: Vital Signs Temp 97.9 F 01/15/25 06:50 Pulse 49 L 01/15/25 06:50 Resp 16 01/15/25 06:50 BP 127/68 01/15/25 06:50 Pulse Ox 97 01/15/25 06:50 FiO2 Intake & Output 01/14/25 01/15/25 01/15/25 18:59 06:59 18:59 Other: Voiding Method Toilet Toilet # Voids 3 2 - Labs CBC & Chem 7: 01/14/25 04:18 01/14/25 04:18 Labs: Abnormal Lab Results - Last 24 Hours (Table) 01/14/25 01/14/25 01/14/25 Range/Units 04:18 04:18 12:16 WBC 13.43 H (4.50-10.00) X 10*3/uL MCH 26.6 L (27.0-32.0) pg MCHC 29.9 L (32.0-37.0) g/dL RDW 14.7 H (11.5-14.5) % Immature Gran # 0.10 H (0.00-0.04) X 10*3/uL Neutrophils # 8.60 H (1.80-7.70) X 10*3/uL Eosinophils # 0.57 H (0.04-0.35) X 10*3/uL Anion Gap 12.80 H (4.00-12.00) mmol/L Glucose 164 H (70-110) mg/dL POC Glucose (mg/dL) 153 H (70-110) mg/dL Total Bilirubin <0.2 L (0.3-1.2) mg/dL Alkaline Phosphatase 128 H (41-126) U/L Albumin 3.6 L (3.8-4.9) g/dL Albumin/Globulin Ratio 1.16 L (1.60-3.17) Ratio Urine Glucose (UA) (Negative) 01/14/25 01/14/25 01/14/25 Range/Units 13:35 17:13 20:09 WBC (4.50-10.00) X 10*3/uL MCH (27.0-32.0) pg MCHC (32.0-37.0) g/dL RDW (11.5-14.5) % Immature Gran # (0.00-0.04) X 10*3/uL Neutrophils # (1.80-7.70) X 10*3/uL Eosinophils # (0.04-0.35) X 10*3/uL Anion Gap (4.00-12.00) mmol/L Glucose (70-110) mg/dL POC Glucose (mg/dL) 170 H 145 H (70-110) mg/dL Total Bilirubin (0.3-1.2) mg/dL Alkaline Phosphatase (41-126) U/L Albumin (3.8-4.9) g/dL Albumin/Globulin Ratio (1.60-3.17) Ratio Urine Glucose (UA) 4+ H (Negative) 01/15/25 Range/Units 05:55 WBC (4.50-10.00) X 10*3/uL MCH (27.0-32.0) pg MCHC (32.0-37.0) g/dL RDW (11.5-14.5) % Immature Gran # (0.00-0.04) X 10*3/uL Neutrophils # (1.80-7.70) X 10*3/uL Eosinophils # (0.04-0.35) X 10*3/uL Anion Gap (4.00-12.00) mmol/L Glucose (70-110) mg/dL POC Glucose (mg/dL) 160 H (70-110) mg/dL Total Bilirubin (0.3-1.2) mg/dL Alkaline Phosphatase (41-126) U/L Albumin (3.8-4.9) g/dL Albumin/Globulin Ratio (1.60-3.17) Ratio Urine Glucose (UA) (Negative)
[2025-01-15] MEDS: ONDANSETRON ODT 4 MG TAB PO PRN (08:58)
[2025-01-15] MEDS ORDERED: ONDANSETRON 4 MG/2 ML VIAL ONE (12:10)
[2025-01-15 12:29] LABS: Glucose,Whole Blood 125 mg/dL (70-110)
--- NOTE | 2025-01-15 13:24 | CA ---
Dobutamine Stress Echocardiogram Report Suyapa Chung Age: 44 Gender: F : 1980 Exam Date: 01/15/2025 11:35 Exam Location: [facility] Ordering Physician: Liz Reid Referring Physician: Jeanette SHAHID Train Gateman: MACY Technologist: Ht (in): 64 Wt (lb): 268 Procedure CPT: Indication: Chest Pain ICD-9 Codes: Rhythm: Patient History: CHEST PAIN, PALPITATIONS, NUMBNESS IN FACE/NECK, HTN, DIABETIC, PRIOR STROKE, FAMILY HX OF HEART DISEASE Cardiac Medications: Medications in past 24 hours: Contrast: Total Dose (mL): Stress Results Protocol: Dobutamine Peak Dose (???g/kg/min): 20 Duration (min:sec): Atropine:(mg) Target HR: 149 Double Product: Resting HR: 46 Resting BP: 116 / 48 Peak HR: 127 Peak BP: 164 / 74 Max Predicted HR: 175 73 % Max Predicted HR Stress Summary: BP Response: Reason for Termination: NAUSEA, VOMITING, DIRECTED PER Cardiac Symptoms: NAUSEA, VOMITING ECG Analysis Resting EKG: Stress EKG: Arrhythmia: Echo Analysis Base Echo Analysis: Low Echo Anaylsis: Peak Echo Analysis: Recovery Echo: MEASUREMENTS (Male/Female) Normal Values CONCLUSIONS Patient underwent dobutamine stress echo with infusion of dobutamine into Stage 3 for a total of 6 minutes and 55 second. Patient's maximum heart rate was 127 which represented 72% age- predicted maximum heart rate. Patient did have significant hypertensive blood pressure response with blood pressure going up to 201/82. Test was terminated secondary to significant nausea and vomiting with infusion Stress EKG portion: At baseline patient's EKG showed. Sinus bradycardia with heart rate 46 bpm, left axis deviation, right bundle branch block with no significant ST or T wave abnormalities. At peak dobutamine infusion, EKG showed no significant change from base. Stress echo portion: 2-D echocardiogram was performed in the parasternal long, personal short, apical 2 and apical four-chamber views at rest, low-dose, peak infusion and in recovery. At baseline, echocardiogram showed left ventricular ejection fraction 55% without wall motion abnormalities. With peak infusion, echocardiogram shows improvement in left ventricular ejection fraction, increase contractility, decrease in left ventricular end systolic dimension without wall motion abnormalities consistent with a normal response to dobutamine. Conclusions: 1. Technically inadequate stress test given inability to reach 85% maximum predicted heart rate 2. However at 72% maximum predicted heart rate, normal dobutamine stress echo Dr. Gabriel Herrera DO (Electronically Signed) Final Date: 15 January 2025 13:23
[2025-01-15 14:27] VITALS: BP 145/73; PULSE 50; RESP 18
== END 2025-01-15 15:54 | disposition home or self-care (01) ==
LOC: EC 13:18 → 6NMEDSUR 15:19
PROVIDERS: ADMIT Internal Medicine; ATTEND Internal Medicine
DX: R07.89 Other chest pain (principal); R06.09 Other forms of dyspnea; R42 Dizziness and giddiness; R00.2 Palpitations; E11.65 Type 2 diabetes mellitus with hyperglycemia; D72.829 Elevated white blood cell count, unspecified; I11.0 Hypertensive heart disease with heart failure; I50.9 Heart failure, unspecified; J44.9 Chronic obstructive pulmonary disease, unspecified; K21.9 Gastro-esophageal reflux disease without esophagitis; F20.9 Schizophrenia, unspecified; F31.9 Bipolar disorder, unspecified; F41.9 Anxiety disorder, unspecified; E78.5 Hyperlipidemia, unspecified; I45.2 Bifascicular block; G40.909 Epilepsy, unspecified, not intractable, without status epilepticus; M79.7 Fibromyalgia; E66.01 Morbid (severe) obesity due to excess calories; Z87.891 Personal history of nicotine dependence; Z79.4 Long term (current) use of insulin; Z79.51 Long term (current) use of inhaled steroids; Z79.82 Long term (current) use of aspirin; Z79.899 Other long term (current) drug therapy; Z79.84 Long term (current) use of oral hypoglycemic drugs; Z88.0 Allergy status to penicillin; Z88.1 Allergy status to other antibiotic agents; R00.1 Bradycardia, unspecified; Z68.42 Body mass index [BMI] 45.0-49.9, adult
CPT/HCPCS: 96376; 96372 ×2; 96374; 99285; 36415; 94640; 93005 ×2; 93351; 80053 ×2; 83735; 84484; 85025 ×2; 85610; 85730; 81003; 83036; 71046; G0378 ×3; J2405; J1650 ×2; J1885 ×2

== ENCOUNTER 2025-01-19 23:08 | Emergency (ER) | payer OTHER ==
[2025-01-19 23:13] VITALS: RESP 18
--- NOTE | 2025-01-19 23:28 | ED ---
Nausea/Vomiting/Diarrhea HPI - General Chief complaint: Recheck/Abnormal Lab/Rx Stated complaint: seizure Time Seen by Provider: 01/19/25 23:10 Source: patient, EMS, RN notes reviewed, old records reviewed Mode of arrival: EMS - History of Present Illness Initial comments: This is a 44-year-old female to the ER for evaluation as patient presents today for evaluation of nausea vomiting, patient presents with abdominal pain with nausea vomiting after doing crack cocaine severe anxiety MD complaint: nausea, vomiting -: hour(s) Description of Diarrhea: water Associated Abdominal Pain: No Severity: mild Severity scale (1-10): 2 Consistency: intermittent Improves with: none Worsens with: none Context: other (Recent drug use) Associated Symptoms: loss of appetite, weakness - Related Data Home Medications Medication Instructions Recorded Confirmed Albuterol Inhaler [Ventolin Hfa 2 puff INHALATION RT-Q6H PRN 01/13/25 01/13/25 Inhaler] Budesonide/Formoterol Fumarate 2 puff INHALATION DIRECTED 01/13/25 01/13/25 [Symbicort 80-4.5 Mcg Inhaler] Haloperidol Decanoate 50 mg IM Q28D 01/13/25 01/13/25 Naltrexone HCl [Revia] 50 mg PO DAILY 01/13/25 01/13/25 Omeprazole 20 mg PO DAILY 01/13/25 01/13/25 Ondansetron Odt [Zofran ODT] 4 mg PO Q12HR PRN 01/13/25 01/13/25 Trigels-F Forte (Ferrous Fum-Vit 1 cap PO DAILY 01/13/25 01/13/25 C-Vit B12-Fa) 460-60-0.01-1 Mg Previous Rx's Medication Instructions Recorded Ammonium Lactate Lotion 1 applic TOPICAL BID each 01/04/25 [Lac-Hydrin 12% Lotion] Aspirin EC [Ecotrin Low Dose] 81 mg PO DAILY 30 Days #30 tab 01/04/25 Atorvastatin [Lipitor] 40 mg PO HS 30 Days #30 tab 01/04/25 Dapagliflozin Propanediol [Farxiga] 10 mg PO DAILY 30 Days #30 tab 01/04/25 Divalproex ER [Depakote ER] 500 mg PO HS 30 Days #30 tab 01/04/25 Nystatin 100,000 Unit/gm Powd 1 applic TOPICAL BID each 01/04/25 [Mycostatin Powder] Spironolactone [Aldactone] 25 mg PO DAILY 30 Days #30 tab 01/04/25 busPIRone HCl [Buspar] 5 mg PO BID 30 Days #60 tab 01/04/25 fluvoxaMINE [Luvox] 200 mg PO HS 30 Days #120 tab 01/04/25 hydrOXYzine HCL [Atarax] 25 mg PO BID PRN 30 Days #60 tab 01/04/25 lisinopriL [Zestril] 2.5 mg PO DAILY 30 Days #30 tab 01/04/25 metFORMIN HCL [Glucophage] 1,000 mg PO BID-W/MEALS 30 Days 01/04/25 #120 tab Allergies Allergy/AdvReac Type Severity Reaction Status Date / Time Iodinated Contrast Media Allergy Anaphylaxis Verified 01/19/25 23:13 [Iodinated Contrast Media - IV Dye] lacosamide [From Vimpat] Allergy Anaphylaxis Verified 01/19/25 23:13 peanut Allergy Anaphylaxis Verified 01/19/25 23:13 Penicillins Allergy Anaphylaxis Verified 01/19/25 23:13 shellfish derived Allergy swelling Verified 01/19/25 23:13 all over body cephalexin monohydrate AdvReac Rash, Verified 01/19/25 23:13 [From Keflex] Nausea, Vomiting & Diarrhea trazodone AdvReac bp Verified 01/19/25 23:13 issues/dizziness Review of Systems ROS Statement: Those systems with pertinent positive or pertinent negative responses have been documented in the HPI. ROS Other: All systems not noted in ROS Statement are negative. Past Medical History Past Medical History: Asthma, Heart Failure, COPD, Diabetes Mellitus, Fibromyalgia, GERD/Reflux, GI Bleed, Hypertension, Liver Disease, Osteoarthritis (OA), Pneumonia, Seizure Disorder, Skin Disorder Additional Past Medical History / Comment(s): Bronchitis, gestational diabetes, seizures with last one 01/2024, sickle cell trait, liver cirrhosis, anemia, chrons, IBS, ulcerative colitis, lowr GI bleed, hemorrhoids, constipation, psoriasis, migraines, chronic low back and cervical pain, scoliosis, arhtritis in multiple joints, gout bilateral feet, History of Any Multi-Drug Resistant Organisms: None Reported Past Surgical History: Cholecystectomy, Orthopedic Surgery Additional Past Surgical History / Comment(s): L oophorectomy d/t cyst, D&C, colonoscopy, L carpal tunnel release, Past Anesthesia/Blood Transfusion Reactions: Motion Sickness, Postoperative Nausea & Vomiting (PONV) Past Psychological History: Anxiety, Bipolar, Depression, Schizophrenia Smoking Status: Former smoker Past Alcohol Use History: None Reported Past Drug Use History: Cocaine, Marijuana - Past Family History Mother History Unknown: Yes Family Medical History: Cancer Additional Family Medical History / Comment(s): Mother had breast cancer and metnal illness She is living. Father Family Medical History: Cancer Additional Family Medical History / Comment(s): Father is . He had agent orange exposure. He had liver cancer, bowel to brain cancer. General Exam General appearance: alert, in no apparent distress Head exam: Present: atraumatic, normocephalic, normal inspection Eye exam: Present: normal appearance, PERRL, EOMI. Absent: scleral icterus, conjunctival injection, periorbital swelling ENT exam: Present: normal exam, mucous membranes moist Neck exam: Present: normal inspection. Absent: tenderness, meningismus, lymphadenopathy Respiratory exam: Present: normal lung sounds bilaterally. Absent: respiratory distress, wheezes, rales, rhonchi, stridor Cardiovascular Exam: Present: regular rate, normal rhythm, normal heart sounds. Absent: systolic murmur, diastolic murmur, rubs, gallop, clicks GI/Abdominal exam: Present: soft, normal bowel sounds. Absent: distended, tenderness, guarding, rebound, rigid Extremities exam: Present: normal inspection, full ROM, normal capillary refill. Absent: tenderness, pedal edema, joint swelling, calf tenderness Back exam: Present: normal inspection Neurological exam: Present: alert, oriented X3, CN II-XII intact Psychiatric exam: Present: normal affect, normal mood Skin exam: Present: warm, dry, intact, normal color. Absent: rash Course Vital Signs 01/19/25 23:10 Pulse Rate 66 Respiratory 18 Rate Blood Pressure 122/45 O2 Sat by Pulse 95 Oximetry - Reevaluation(s) Reevaluation #1: 01/19/25 23:44 Medical records reviewed Reevaluation #2: 01/20/25 01:45 Symptoms continue to improve throughout ER stay Reevaluation #3: 01/20/25 01:46 Patient informed of results and questions answered Reevaluation #4: Was pt. sent in by a medical professional or institution (CLIF Ramirez, PARKING LOT ATTENDANT, urgent care, hospital, or halfway...) When possible be specific @ -no Did you speak to anyone other than the patient for history (EMS, parent, family, police, friend...)? What history was obtained from this source @ -no Did you review nursing and triage notes (agree or disagree)? Why? @ -agree Are old charts reviewed (outside hosp., previous admission, EMS record, old EKG, old radiological studies, urgent care reports/EKG's, halfway records)? Report findings @ -yes Differential Diagnosis (chest pain, altered mental status, abdominal pain women, abdominal pain men, vaginal bleeding, weakness, fever, dyspnea, syncope, headache, dizziness, GI bleed, back pain, seizure, CVA, palpatations, mental health, musculoskeletal)? @ -prior EKG interpreted by me (3pts min.). @ -yes X-rays interpreted by me (1pt min.). @ -yes negative for acute disease CT interpreted by me (1pt min.). @ -no U/S interpreted by me (1pt. min.). @ -no What testing was considered but not performed or refused? (CT, X-rays, U/S, labs)? Why? @ -none What meds were considered but not given or refused? Why? @ -none Did you discuss the management of the patient with other professionals (professionals i.e. CLIF Ramirez, PARKING LOT ATTENDANT, lab, RT, psych nurse, social work nurse, manager pipeline, teacher, gunnery/ordnance officer, heel caser)? Give summary @ -no Was smoking cessation discussed for >3mins.? @ -no Was critical care preformed (if so, how long)? @ -no Were there social determinants of health that impacted care today? How? (Homelessness, low income, unemployed, alcoholism, drug addiction, transportation, low edu. Level, literacy, decrease access to med. care, care home, rehab)? @ -none Was there de-escalation of care discussed even if they declined (Discuss DNR or withdrawal of care, Hospice)? DNR status @ -no What co-morbidities impacted this encounter? (DM, HTN, Smoking, COPD, CAD, Cancer, CVA, ARF, Chemo, Hep., AIDS, mental health diagnosis, sleep apnea, morbid obesity)? @ -none Was patient admitted / discharged? Hospital course, mention meds given and route, prescriptions, significant lab abnormalities, going to OR and other pertinent info. @ - Undiagnosed new problem with uncertain prognosis? @ -no Drug Therapy requiring intensive monitoring for toxicity (Heparin, Nitro, Insulin, Cardizem)? @ -no Were any procedures done? @ -no Diagnosis/symptom? @ - Acute, or Chronic, or Acute on Chronic? @ -Acute Uncomplicated (without systemic symptoms) or Complicated (systemic symptoms)? @ -Complicated Side effects of treatment? @ -no Exacerbation, Progression, or Severe Exacerbation? @ -exacerbation Poses a threat to life or bodily function? How? (Chest pain, USA, LA, pneumonia, PE, COPD, DKA, ARF, appy, cholecystitis, CVA, Diverticulitis, Homicidal, Suicidal, threat to staff... and all critical care pts) @ -yes Medical Decision Making - Medical Decision Making 44 female to ER for nausea vomiting after drug use. Patient symptoms are improved here in the ER she can be discharged home Disposition Clinical Impression: Nausea & vomiting Disposition: HOME SELF-CARE Condition: Good Instructions (If sedation given, give patient instructions): Acute Nausea and Vomiting (ED) Is patient prescribed a controlled substance at d/c from ED?: No Referrals: Evelyn Blas MD [Primary Care Provider] - 1-2 days Time of Disposition: 02:00
[2025-01-19] MEDS: SODIUM CHLORIDE 0.9% 500 ML 500 ML IV ONE (23:58)
[2025-01-19] MEDS: LORazepam 1 MG/0.5 ML VIAL IV STA (23:59)
[2025-01-19] MEDS: ONDANSETRON 4 MG/2 ML VIAL IVP STA (23:59)
[2025-01-20] MEDS: LORazepam 1 MG/0.5 ML VIAL IV STA (01:17)
[2025-01-20] MEDS: droPERidol 2.5 MG/ML VIAL IVP ONE (01:18)
[2025-01-20] MEDS: ACETAMINOPHEN TAB 500 MG TAB PO STA (02:25)
[2025-01-20] MEDS: IBUPROFEN 800 MG TAB PO STA (02:25)
[2025-01-20 04:03] VITALS: BP 118/52; PULSE 68
== END 2025-01-20 04:05 | disposition home or self-care (01) ==
LOC: EC 23:08
DX: R11.2 Nausea with vomiting, unspecified (principal); Z87.891 Personal history of nicotine dependence; Z91.010 Allergy to peanuts; Z91.013 Allergy to seafood; Z91.041 Radiographic dye allergy status; Z88.0 Allergy status to penicillin; Z88.1 Allergy status to other antibiotic agents; Z88.8 Allergy status to other drugs, medicaments and biological substances
CPT/HCPCS: 99284; 96374; 96375 ×2; 96361; 96376; J2060 ×2; J2405; J1790

== ENCOUNTER 2025-01-27 15:59 | Emergency (ER) | payer OTHER ==
[2025-01-27 16:39] VITALS: BP 137/73; PULSE 67; RESP 16; TEMP 98
--- NOTE | 2025-01-27 16:42 | ED ---
General Adult HPI - General Source: patient, RN notes reviewed Mode of arrival: EMS Limitations: no limitations <Catalino Love - Last Filed: 01/27/25 17:48> - General Source: patient, RN notes reviewed, old records reviewed Mode of arrival: EMS Limitations: no limitations - History of Present Illness -: hour(s) Location: left, right, lower extremity Severity scale (1-10): 1 Worsens with: none Associated Symptoms: denies other symptoms Treatments Prior to Arrival: none <Stefano Mirza - Last Filed: 01/27/25 18:39> - General Chief complaint: Extremity Problem,Nontraumatic Stated complaint: Nausea/Lightheaded Time Seen by Provider: 01/27/25 16:15 - History of Present Illness Initial comments: Quick note: This is a well-known 44-year-old female with significant medical history including heart failure, COPD, DM, liver disease, seizures presenting via EMS for dizziness/lightheadedness. Patient states she has been having nausea/vomiting and yellow diarrhea with decreased appetite for the past 4 days. Patient also endorses chronic low back pain with numbness/tingling to her lower legs, stating her legs feel "heavy". Patient also states she feels dehydrated with lower abdominal cramping. Patient mentions issue with her guardians and is requesting Adult Protective Services due to guardians "holding onto money and personal items" as well as her food card. (Catalino Love) This is a 44 female well-known to our ER coming in for evaluation of psychosocial issue, patient was home is homeless last night because her sister kicked her out of the house secondary to food stamp and money issue patient states she slept outside all night and is feeling weak with numbness and tingling of her legs. (Stefano Mirza) - Related Data Home Medications Medication Instructions Recorded Confirmed Albuterol Inhaler [Ventolin Hfa 2 puff INHALATION RT-Q6H PRN 01/13/25 01/13/25 Inhaler] Budesonide/Formoterol Fumarate 2 puff INHALATION DIRECTED 01/13/25 01/13/25 [Symbicort 80-4.5 Mcg Inhaler] Haloperidol Decanoate 50 mg IM Q28D 01/13/25 01/13/25 Naltrexone HCl [Revia] 50 mg PO DAILY 01/13/25 01/13/25 Omeprazole 20 mg PO DAILY 01/13/25 01/13/25 Ondansetron Odt [Zofran ODT] 4 mg PO Q12HR PRN 01/13/25 01/13/25 Trigels-F Forte (Ferrous Fum-Vit 1 cap PO DAILY 01/13/25 01/13/25 C-Vit B12-Fa) 460-60-0.01-1 Mg Previous Rx's Medication Instructions Recorded Ammonium Lactate Lotion 1 applic TOPICAL BID each 01/04/25 [Lac-Hydrin 12% Lotion] Aspirin EC [Ecotrin Low Dose] 81 mg PO DAILY 30 Days #30 tab 01/04/25 Atorvastatin [Lipitor] 40 mg PO HS 30 Days #30 tab 01/04/25 Dapagliflozin Propanediol [Farxiga] 10 mg PO DAILY 30 Days #30 tab 01/04/25 Divalproex ER [Depakote ER] 500 mg PO HS 30 Days #30 tab 01/04/25 Nystatin 100,000 Unit/gm Powd 1 applic TOPICAL BID each 01/04/25 [Mycostatin Powder] Spironolactone [Aldactone] 25 mg PO DAILY 30 Days #30 tab 01/04/25 busPIRone HCl [Buspar] 5 mg PO BID 30 Days #60 tab 01/04/25 fluvoxaMINE [Luvox] 200 mg PO HS 30 Days #120 tab 01/04/25 hydrOXYzine HCL [Atarax] 25 mg PO BID PRN 30 Days #60 tab 01/04/25 lisinopriL [Zestril] 2.5 mg PO DAILY 30 Days #30 tab 01/04/25 metFORMIN HCL [Glucophage] 1,000 mg PO BID-W/MEALS 30 Days 01/04/25 #120 tab Allergies Allergy/AdvReac Type Severity Reaction Status Date / Time Iodinated Contrast Media Allergy Anaphylaxis Verified 01/19/25 23:13 [Iodinated Contrast Media - IV Dye] lacosamide [From Vimpat] Allergy Anaphylaxis Verified 01/19/25 23:13 peanut Allergy Anaphylaxis Verified 01/19/25 23:13 Penicillins Allergy Anaphylaxis Verified 01/19/25 23:13 shellfish derived Allergy swelling Verified 01/19/25 23:13 all over body cephalexin monohydrate AdvReac Rash, Verified 01/19/25 23:13 [From Keflex] Nausea, Vomiting & Diarrhea trazodone AdvReac bp Verified 01/19/25 23:13 issues/dizziness Review of Systems ROS Other: All systems not noted in ROS Statement are negative. <Catalino Love - Last Filed: 01/27/25 17:48> ROS Other: All systems not noted in ROS Statement are negative. <Stefano Mirza - Last Filed: 01/27/25 18:39> ROS Statement: Those systems with pertinent positive or pertinent negative responses have been documented in the HPI. Past Medical History Past Medical History: Asthma, Heart Failure, COPD, Diabetes Mellitus, Fibromyalgia, GERD/Reflux, GI Bleed, Hypertension, Liver Disease, Osteoarthritis (OA), Pneumonia, Seizure Disorder, Skin Disorder Additional Past Medical History / Comment(s): Bronchitis, gestational diabetes, seizures with last one 01/2024, sickle cell trait, liver cirrhosis, anemia, chrons, IBS, ulcerative colitis, lowr GI bleed, hemorrhoids, constipation, psoriasis, migraines, chronic low back and cervical pain, scoliosis, arhtritis in multiple joints, gout bilateral feet, History of Any Multi-Drug Resistant Organisms: None Reported Past Surgical History: Cholecystectomy, Orthopedic Surgery Additional Past Surgical History / Comment(s): L oophorectomy d/t cyst, D&C, colonoscopy, L carpal tunnel release, Past Anesthesia/Blood Transfusion Reactions: Motion Sickness, Postoperative Nausea & Vomiting (PONV) Past Psychological History: Anxiety, Bipolar, Depression, Schizophrenia Smoking Status: Former smoker Past Alcohol Use History: None Reported Past Drug Use History: Cocaine, Marijuana - Past Family History Mother History Unknown: Yes Family Medical History: Cancer Additional Family Medical History / Comment(s): Mother had breast cancer and metnal illness She is living. Father Family Medical History: Cancer Additional Family Medical History / Comment(s): Father is . He had agent orange exposure. He had liver cancer, bowel to brain cancer. <Catalino Love - Last Filed: 01/27/25 17:48> General Exam Limitations: no limitations <Catalino Love - Last Filed: 01/27/25 17:48> General appearance: alert, in no apparent distress Head exam: Present: atraumatic, normocephalic, normal inspection Eye exam: Present: normal appearance, PERRL, EOMI. Absent: scleral icterus, conjunctival injection, periorbital swelling ENT exam: Present: normal exam, mucous membranes moist Neck exam: Present: normal inspection. Absent: tenderness, meningismus, lymphadenopathy Respiratory exam: Present: normal lung sounds bilaterally. Absent: respiratory distress, wheezes, rales, rhonchi, stridor Cardiovascular Exam: Present: regular rate, normal rhythm, normal heart sounds. Absent: systolic murmur, diastolic murmur, rubs, gallop, clicks GI/Abdominal exam: Present: soft, normal bowel sounds. Absent: distended, tenderness, guarding, rebound, rigid Extremities exam: Present: normal inspection, full ROM, normal capillary refill. Absent: tenderness, pedal edema, joint swelling, calf tenderness Back exam: Present: normal inspection Neurological exam: Present: alert, oriented X3, CN II-XII intact Psychiatric exam: Present: normal affect, normal mood Skin exam: Present: warm, dry, intact, normal color. Absent: rash <Stefano Mirza - Last Filed: 01/27/25 18:39> - General Exam Comments Initial Comments: Visual Physical Exam Vital signs reviewed General: Well-appearing, nontoxic, no acute distress. Head: Normocephalic, atraumatic Eyes: PERRLA, EOMI ENT: Airway patent Chest: Nonlabored breathing Skin: No visual rash, normal skin tone Neuro: Alert and oriented 3 Musculoskeletal: No gross abnormalities (Ivan,Catalino) Course <Stefano Mirza - Last Filed: 01/27/25 18:39> Vital Signs 01/27/25 16:37 Temperature 98 F Pulse Rate 67 Respiratory 16 Rate Blood Pressure 137/73 O2 Sat by Pulse 98 Oximetry - Reevaluation(s) Reevaluation #1: 01/27/25 18:37 Medical records reviewed (Stefano Mirza) Reevaluation #2: 01/27/25 18:37 Patient is able to ambulate here in the ER (Stefano Mirza) Reevaluation #3: 01/27/25 18:37 Patient informed of results questions answered (Stefano Mirza) Reevaluation #4: Was pt. sent in by a medical professional or institution (CLIF Ramirez, ENTERPRISE SYSTEMS ARCHITECT, urgent care, hospital, or detention...) When possible be specific @ -no Did you speak to anyone other than the patient for history (EMS, parent, family, police, friend...)? What history was obtained from this source @ -no Did you review nursing and triage notes (agree or disagree)? Why? @ -agree Are old charts reviewed (outside hosp., previous admission, EMS record, old EKG, old radiological studies, urgent care reports/EKG's, detention records)? Report findings @ -yes Differential Diagnosis (chest pain, altered mental status, abdominal pain women, abdominal pain men, vaginal bleeding, weakness, fever, dyspnea, syncope, headache, dizziness, GI bleed, back pain, seizure, CVA, palpatations, mental health, musculoskeletal)? @ -prior EKG interpreted by me (3pts min.). @ -yes X-rays interpreted by me (1pt min.). @ -yes negative for acute disease CT interpreted by me (1pt min.). @ -no U/S interpreted by me (1pt. min.). @ -no What testing was considered but not performed or refused? (CT, X-rays, U/S, labs)? Why? @ -none What meds were considered but not given or refused? Why? @ -none Did you discuss the management of the patient with other professionals (professionals i.e. CLIF Ramirez, EN[employer] ARCHITECT, lab, RT, psych nurse, psychiatric social worker, netbackup admin, teacher, radiological defense officer, major case detective)? Give summary @ -no Was smoking cessation discussed for >3mins.? @ -no Was critical care preformed (if so, how long)? @ -no Were there social determinants of health that impacted care today? How? (Homelessness, low income, unemployed, alcoholism, drug addiction, transp ortation, low edu. Level, literacy, decrease access to med. care, alf, rehab)? @ -none Was there de-escalation of care discussed even if they declined (Discuss DNR or withdrawal of care, Hospice)? DNR status @ -no What co-morbidities impacted this encounter? (DM, HTN, Smoking, COPD, CAD, Cancer, CVA, ARF, Chemo, Hep., AIDS, mental health diagnosis, sleep apnea, morbid obesity)? @ -none Was patient admitted / discharged? Hospital course, mention meds given and route, prescriptions, significant lab abnormalities, going to OR and other pertinent info. @ - Undiagnosed new problem with uncertain prognosis? @ -no Drug Therapy requiring intensive monitoring for toxicity (Heparin, Nitro, Insulin, Cardizem)? @ -no Were any procedures done? @ -no Diagnosis/symptom? @ - Acute, or Chronic, or Acute on Chronic? @ -Acute Uncomplicated (without systemic symptoms) or Complicated (systemic symptoms)? @ -Complicated Side effects of treatment? @ -no Exacerbation, Progression, or Severe Exacerbation? @ -exacerbation Poses a threat to life or bodily function? How? (Chest pain, [place], [place], pneumonia, PE, COPD, DKA, ARF, appy, cholecystitis, CVA, Diverticulitis, Homicidal, Suicidal, threat to staff... and all critical care pts) @ -yes (Stefano Mirza) Reevaluation #5: Differential Weakness: Hypoglycemia, shock, sepsis, hyponatremia, anemia, infection, [place], ETOH, adverse medicine reaction, overdose, stroke, this is not meant to be an all-inclusive list. Differential Mental Health Depression, anxiety, bipolar, psychosis, schizophrenia, borderline personality, situational depression, adjustment disorder, behavioral disorder, brain tumor, malingering, substance abuse, encephalopathy, medication reaction, dementia, hypothyroidism, degenerative neurologic disorder, lupus.... This is not meant to be all-inclusive list (Stefano Mirza) Medical Decision Making <Catalino Love - Last Filed: 01/27/25 17:48> - Radiology Data Radiology results: report reviewed (Chest x-ray x-ray LS spine negative for acute disease), image reviewed <Stefano Mirza - Last Filed: 01/27/25 18:39> - Medical Decision Making I completed the quick note portion of this chart signed SHELBY Brock (Catalino Love) 44 female well-known to this ER coming in for lower extremity weakness sleeping outside all night recently homeless, patient is able to get to her sister who will help with living situation today (Stefano Mirza) Disposition <Catalino Love - Last Filed: 01/27/25 17:48> Is patient prescribed a controlled substance at d/c from ED?: No Time of Disposition: 18:30 <Stefano Mirza - Last Filed: 01/27/25 18:39> Clinical Impression: Weakness Disposition: HOME SELF-CARE Condition: Good Instructions (If sedation given, give patient instructions): Weakness (ED) Referrals: Evelyn Blas MD [Primary Care Provider] - 1-2 days
--- NOTE | 2025-01-27 17:35 | XR ---
EXAMINATION TYPE: XR chest 2V DATE OF EXAM: 01/27/2025 5:03 PM COMPARISON: Chest radiographs from 01/13/2025. CLINICAL INDICATION: Female, 44 years old with history of Dizzy; PHH TECHNIQUE: XR chest 2V Frontal and lateral views of the chest. FINDINGS: Lungs/Pleura: There is no evidence of pleural effusion, focal consolidation, or pneumothorax. Pulmonary vascularity: Unremarkable. Heart/mediastinum: Cardiomediastinal silhouette is unremarkable. Musculoskeletal: No acute osseous pathology. Other findings: None IMPRESSION: No acute cardiopulmonary disease/process. [facility], , 01/27/2025 5:33 PM
--- NOTE | 2025-01-27 17:36 | XR ---
EXAMINATION TYPE: XR lumbar spine 2 or 3V DATE OF EXAM: 01/27/2025 5:04 PM COMPARISON: 06/10/2024. CLINICAL INDICATION: Female, 44 years old with history of Low back pain; PHH, pain TECHNIQUE: XR lumbar spine 2 or 3V - Frontal, lateral and coned in L5-S1 lateral views of the spine. FINDINGS: No evidence of any acute osseous pathology. No evidence of loss of vertebral body height i s seen. There is normal alignment of the lumbar vertebral bodies. Scattered disc space narrowing. Mul tilevel marginal osteophyte formation throughout the visualized spine. There is facet joint arthropat hy throughout the spine. Scattered at least mild neural foraminal stenosis. Tubal ligation clips pres ent. IMPRESSION: 1. No acute fracture. 2. Moderate multilevel disc degeneration. [facility], , 01/27/2025 5:34 PM
== END 2025-01-27 18:38 | disposition home or self-care (01) ==
LOC: EC 15:59
DX: R53.1 Weakness (principal); Z87.891 Personal history of nicotine dependence; Z91.013 Allergy to seafood; Z91.010 Allergy to peanuts; Z88.1 Allergy status to other antibiotic agents; Z88.0 Allergy status to penicillin; Z91.041 Radiographic dye allergy status; Z88.8 Allergy status to other drugs, medicaments and biological substances
CPT/HCPCS: 71046; 72100; 99284

== ENCOUNTER 2025-01-30 08:26 | Emergency (ER) | payer OTHER ==
[2025-01-30 08:45] VITALS: RESP 18; TEMP 97.8
[2025-01-30] MEDS: diphenhydrAMINE 50 MG/ML 1 ML VIAL IVP STA (09:09)
[2025-01-30] MEDS: KETOROLAC 15 MG/ML 1 ML VIAL IVP STA (09:09)
[2025-01-30] MEDS: METOCLOPRAMIDE 5 MG/ML 2 ML VIAL IVP STA (09:09)
[2025-01-30 09:12] LABS: Basophils # (A) 0.04 10*3/uL (0.00-0.10); Basophils % (A) 0.4 %; Eosinophils # (A) 0.69 10*3/uL (0.04-0.35); Eosinophils % (A) 6.7 %; HCT 36.5 % (37.2-46.3); HGB 11.8 g/dL (12.0-15.0); Lymphocytes # (A) 1.83 10*3/uL (0.90-5.00); Lymphocytes % (A) 17.9 %; MCH 27.7 pg (27.0-32.0); MCHC 32.3 g/dL (32.0-37.0); MCV 85.7 fL (80.0-97.0); Monocytes # (A) 0.64 10*3/uL (0.20-1.00); Monocytes % (A) 6.3 %; Neutrophils # (A) 7.00 10*3/uL (1.80-7.70); Neutrophils % (A) 68.4 %; Platelet Count 215 10*3/uL (140-440); RBC 4.26 10*6/uL (4.10-5.20); RDW 15.0 % (11.5-14.5); WBC 10.23 10*3/uL (4.50-10.00)
[2025-01-30 09:42] LABS: ALT 20 U/L (4-34); AST 19 U/L (14-36); African American GFR (CKD) >90 (>60 ml/min/1.73 sqM); Albumin 3.6 g/dL (3.5-5.0); Alkaline Phosphatase 114 U/L (38-126); Anion Gap 9 mmol/L; Blood Urea Nitrogen 5 mg/dL (7-17); Calcium 9.0 mg/dL (8.4-10.2); Carbon Dioxide 23 mmol/L (22-30); Chloride 111 mmol/L (98-107); Glucose 147 mg/dL (74-99); Magnesium 1.7 mg/dL (1.6-2.3); Non-African American GFR(CKD) >90 (>60 ml/min/1.73 sqM); Potassium 3.9 mmol/L (3.5-5.1); Sodium 143 mmol/L (137-145); Total Protein 6.6 g/dL (6.3-8.2)
[2025-01-30 09:44] LABS: INR 0.9 (<1.2); Partial Thromboplastin Time 23.4 sec (22.0-30.0); Prothrombin Time 10.2 sec (10.0-12.5)
[2025-01-30 09:56] LABS: Opiate Screen,Urine Not Detected (NotDetected); Phencyclidine Screen,Urine Not Detected (NotDetected); Urn Cannabinoid Scrn Detected (NotDetected)
[2025-01-30 09:57] LABS: Barbiturate Screen,Urine Not Detected (NotDetected); Benzodiazepines Screen,Urine Not Detected (NotDetected); Oxycodone Screen, Urine Not Detected (NotDetected); Tricyclic Antidepressant,Urine Not Detected (NotDetected)
[2025-01-30 10:59] VITALS: BP 126/77; PULSE 40
--- NOTE | 2025-01-30 11:26 | ED ---
General Adult HPI - General Chief complaint: Chest Pain Stated complaint: Chest pain,Mental health eval Time Seen by Provider: 01/30/25 08:29 Source: patient, EMS, RN notes reviewed Mode of arrival: EMS Limitations: no limitations - History of Present Illness Initial comments: 44-year-old female plaint of chest wall pain. Patient states that she started having some discomfort in her chest. She states has been having a chronic issue. She does admit to recent drug use including methamphetamines cocaine. Patient was admitted recently for cardiology clearance she states she had normal stress test. She does have vomiting symptoms shortness of breath headache, also symptoms are not present currently. Patient denies any other associated symptoms denies being suicidal - Related Data Home Medications Medication Instructions Recorded Confirmed Albuterol Inhaler [Ventolin Hfa 2 puff INHALATION RT-Q6H PRN 01/13/25 01/30/25 Inhaler] Budesonide/Formoterol Fumarate 2 puff INHALATION DIRECTED 01/13/25 01/30/25 [Symbicort 80-4.5 Mcg Inhaler] Haloperidol Decanoate 50 mg IM Q28D 01/13/25 01/30/25 Naltrexone HCl [Revia] 50 mg PO DAILY 01/13/25 01/30/25 Ondansetron Odt [Zofran ODT] 4 mg PO Q8H PRN 01/13/25 01/30/25 Trigels-F Forte (Ferrous Fum-Vit 1 cap PO DAILY 01/13/25 01/30/25 C-Vit B12-Fa) 460-60-0.01-1 Mg Pantoprazole [Protonix] 40 mg PO DAILY 01/30/25 01/30/25 Previous Rx's Medication Instructions Recorded Ammonium Lactate Lotion 1 applic TOPICAL BID each 01/04/25 [Lac-Hydrin 12% Lotion] Aspirin EC [Ecotrin Low Dose] 81 mg PO DAILY 30 Days #30 tab 01/04/25 Atorvastatin [Lipitor] 40 mg PO HS 30 Days #30 tab 01/04/25 Dapagliflozin Propanediol [Farxiga] 10 mg PO DAILY 30 Days #30 tab 01/04/25 Divalproex ER [Depakote ER] 500 mg PO HS 30 Days #30 tab 01/04/25 Nystatin 100,000 Unit/gm Powd 1 applic TOPICAL BID each 01/04/25 [Mycostatin Powder] Spironolactone [Aldactone] 25 mg PO DAILY 30 Days #30 tab 01/04/25 busPIRone HCl [Buspar] 5 mg PO BID 30 Days #60 tab 01/04/25 fluvoxaMINE [Luvox] 200 mg PO HS 30 Days #120 tab 01/04/25 hydrOXYzine HCL [Atarax] 25 mg PO BID PRN 30 Days #60 tab 01/04/25 lisinopriL [Zestril] 2.5 mg PO DAILY 30 Days #30 tab 01/04/25 metFORMIN HCL [Glucophage] 1,000 mg PO BID-W/MEALS 30 Days 01/04/25 #120 tab Allergies Allergy/AdvReac Type Severity Reaction Status Date / Time Iodinated Contrast Media Allergy Anaphylaxis Verified 01/30/25 12:03 [Iodinated Contrast Media - IV Dye] lacosamide [From Vimpat] Allergy Anaphylaxis Verified 01/30/25 12:03 peanut Allergy Anaphylaxis Verified 01/30/25 12:03 Penicillins Allergy Anaphylaxis Verified 01/30/25 12:03 shellfish derived Allergy swelling Verified 01/30/25 12:03 all over body cephalexin monohydrate AdvReac Rash, Verified 01/30/25 12:03 [From Keflex] Nausea, Vomiting & Diarrhea trazodone AdvReac bp Verified 01/30/25 12:03 issues/dizziness Review of Systems ROS Statement: Those systems with pertinent positive or pertinent negative responses have been documented in the HPI. ROS Other: All systems not noted in ROS Statement are negative. Past Medical History Past Medical History: Asthma, Heart Failure, COPD, Diabetes Mellitus, Fibromyalgia, GERD/Reflux, GI Bleed, Hypertension, Liver Disease, Osteoarthritis (OA), Pneumonia, Seizure Disorder, Skin Disorder Additional Past Medical History / Comment(s): Bronchitis, gestational diabetes, seizures with last one 01/2024, sickle cell trait, liver cirrhosis, anemia, chrons, IBS, ulcerative colitis, lowr GI bleed, hemorrhoids, constipation, psoriasis, migraines, chronic low back and cervical pain, scoliosis, arhtritis in multiple joints, gout bilateral feet, History of Any Multi-Drug Resistant Organisms: None Reported Past Surgical History: Cholecystectomy, Orthopedic Surgery Additional Past Surgical History / Comment(s): L oophorectomy d/t cyst, D&C, colonoscopy, L carpal tunnel release, Past Anesthesia/Blood Transfusion Reactions: Motion Sickness, Postoperative Nausea & Vomiting (PONV) Past Psychological History: Anxiety, Bipolar, Depression, Schizophrenia Smoking Status: Former smoker Past Alcohol Use History: None Reported Past Drug Use History: Cocaine, Marijuana - Past Family History Mother History Unknown: Yes Family Medical History: Cancer Additional Family Medical History / Comment(s): Mother had breast cancer and metnal illness She is living. Father Family Medical History: Cancer Additional Family Medical History / Comment(s): Father is . He had agent orange exposure. He had liver cancer, bowel to brain cancer. General Exam Limitations: no limitations General appearance: alert, in no apparent distress Head exam: Present: atraumatic, normocephalic, normal inspection Eye exam: Present: normal appearance, PERRL, EOMI. Absent: scleral icterus, conjunctival injection, periorbital swelling ENT exam: Present: normal exam, mucous membranes moist Neck exam: Present: normal inspection, full ROM. Absent: tenderness, meningismus, lymphadenopathy Respiratory exam: Present: normal lung sounds bilaterally. Absent: respiratory distress, wheezes, rales, rhonchi, stridor Cardiovascular Exam: Present: regular rate, normal rhythm, normal heart sounds. Absent: systolic murmur, diastolic murmur, rubs, gallop, clicks GI/Abdominal exam: Present: soft, normal bowel sounds. Absent: distended, tenderness, guarding, rebound, rigid Course Vital Signs 01/30/25 01/30/25 08:30 10:58 Temperature 97.8 F Pulse Rate 53 L 40 L Respiratory 18 18 Rate Blood Pressure 104/53 126/77 O2 Sat by Pulse 95 Oximetry EKG Findings - EKG Comments: EKG Findings:: EKG performed at 8: [address] [place] 148 QRS 166 QT/QTc 491/462 no acute changes from prior EKG. - EKG Results: EKG: interpreted by [facility] Medical Decision Making - Medical Decision Making Was pt. sent in by a medical professional or institution (, PA, HOME HEALTH PROVIDER, urgent care, hospital, or long-term...) When possible be specific @ -No Did you speak to anyone other than the patient for history (EMS, parent, family, police, friend...)? What history was obtained from this source @ -No Did you review nursing and triage notes (agree or disagree)? Why? @ -I reviewed and agree with nursing and triage notes Were old charts reviewed (outside hosp., previous admission, EMS record, old EKG, old radiological studies, urgent care reports/EKG's, long-term records)? Report findings @ -No old charts were reviewed Differential Diagnosis (chest pain, altered mental status, abdominal pain women, abdominal pain men, vaginal bleeding, weakness, fever, dyspnea, syncope, headache, dizziness, GI bleed, back pain, seizure, CVA, palpatations, mental health, musculoskeletal)? @ -Differential Chest Pain: Stable Angina, Unstable Angina, STEMI, NSTEMI Aortic Dissection, Pneumothorax, Musculoskeletal, Esophageal Spasm GERD, Cholecystitis, Pancreatitis, Zoster, this is not meant to be an all-inclusive list. EKG interpreted by me (3pts min.). @ -As above X-rays interpreted by me (1pt min.). @ -Chest x-ray shows no acute cardiopulmonary process. CT interpreted by me (1pt min.). @ -None done U/S interpreted by me (1pt. min.). @ -None done What testing was considered but not performed or refused? (CT, X-rays, U/S, labs)? Why? @ -None What meds were considered but not given or refused? Why? @ -None Did you discuss the management of the patient with other professionals (professionals i.e. , PA, HOME HEALTH PROVIDER, lab, RT, psych nurse, child welfare social worker, rib bender, teacher, deputy juvenile officer, assistant case manager)? Give summary @ -Recommend outpatient treatment Was smoking cessation discussed for >3mins.? @ -No Was critical care preformed (if so, how long)? @ -No Were there social determinants of health that impacted care today? How? (Homelessness, low income, unemployed, alcoholism, drug addiction, transportation, low edu. Level, literacy, decrease access to med. care, retirement, rehab)? @ -No Was there de-escalation of care discussed even if they declined (Discuss DNR or withdrawal of care, Hospice)? DNR status @ -No What co-morbidities impacted this encounter? (DM, HTN, Smoking, COPD, CAD, Cancer, CVA, ARF, Chemo, Hep., AIDS, mental health diagnosis, sleep apnea, morbid obesity)? @ -Drug abuse Was patient admitted / discharged? Hospital course, mention meds given and route, prescriptions, significant lab abnormalities, going to OR and other pertinent info. @ -Discharged patient was evaluated by EPS after she found to have methamphetamine and cocaine use. Patient's troponin, EKG nematocides otherwise unremarkable. Patient had recent cardiac workup. Undiagnosed new problem with uncertain prognosis? @ -No Drug Therapy requiring intensive monitoring for toxicity (Heparin, Nitro, Insulin, Cardizem)? @ -No Were any procedures done? @ -No Diagnosis/symptom? @ -Drug abuse, atypical chest pain Acute, or Chronic, or Acute on Chronic? @ -Acute Uncomplicated (without systemic symptoms) or Complicated (systemic symptoms)? @ -Complicated Side effects of treatment? @ -No Exacerbation, Progression, or Severe Exacerbation? @ -No Poses a threat to life or bodily function? How? (Chest pain, USA, [place], pneumonia, PE, COPD, DKA, ARF, appy, cholecystitis, CVA, Diverticulitis, Homicidal, Suicidal, threat to staff... and all critical care pts) @ -Yes ACS could cause this cardiac function - Lab Data Result diagrams: 01/30/25 08:58 01/30/25 08:58 Lab Results 01/30/25 01/30/25 01/30/25 Range/Units 08:58 08:58 08:58 WBC 10.23 H (4.50-10.00) 10*3/uL RBC 4.26 (4.10-5.20) 10*6/uL Hgb 11.8 L (12.0-15.0) g/dL Hct 36.5 L (37.2-46.3) % MCV 85.7 (80.0-97.0) fL MCH 27.7 (27.0-32.0) pg MCHC 32.3 (32.0-37.0) g/dL Plt Count 215 (140-440) 10*3/uL MPV 9.9 (9.5-12.2) fL Immature Gran % (Auto) 0.3 % Neutrophils % 68.4 % Lymphocytes % 17.9 % Monocytes % 6.3 % Eosinophils % 6.7 % Basophils % 0.4 % Immature Gran # 0.03 (0.00-0.04) 10*3/uL Neutrophils # 7.00 (1.80-7.70) 10*3/uL Lymphocytes # 1.83 (0.90-5.00) 10*3/uL Monocytes # 0.64 (0.20-1.00) 10*3/uL Eosinophils # 0.69 H (0.04-0.35) 10*3/uL Basophils # 0.04 (0.00-0.10) 10*3/uL PT 10.2 (10.0-12.5) sec INR 0.9 (<1.2) APTT 23.4 (22.0-30.0) sec Sodium 143 (137-145) mmol/L Potassium 3.9 (3.5-5.1) mmol/L Chloride 111 H (98-107) mmol/L Carbon Dioxide 23 (22-30) mmol/L Anion Gap 9 mmol/L BUN 5 L (7-17) mg/dL Creatinine 0.65 (0.52-1.04) mg/dL Est GFR (CKD-EPI)AfAm >90 (>60 ml/min/1.73 sqM) Est GFR (CKD-EPI)NonAf >90 (>60 ml/min/1.73 sqM) Glucose 147 H (74-99) mg/dL Calcium 9.0 (8.4-10.2) mg/dL Magnesium 1.7 (1.6-2.3) mg/dL Total Bilirubin 0.3 (0.2-1.3) mg/dL AST 19 (14-36) U/L ALT 20 (4-34) U/L Alkaline Phosphatase 114 (38-126) U/L Troponin I (0.000-0.034) ng/mL Total Protein 6.6 (6.3-8.2) g/dL Albumin 3.6 (3.5-5.0) g/dL Urine Opiates Screen (NotDetected) Ur Oxycodone Screen (NotDetected) Urine Methadone Screen (NotDetected) Ur Barbiturates Screen (NotDetected) U Tricyclic Antidepress (NotDetected) Ur Phencyclidine Scrn (NotDetected) Ur Amphetamines Screen (NotDetected) U Methamphetamines Scrn (NotDetected) U Benzodiazepines Scrn (NotDetected) Urine Cocaine Screen (NotDetected) U Marijuana (THC) Screen (NotDetected) Serum Alcohol <10 mg/dL 01/30/25 01/30/25 Range/Units 08:58 09:09 WBC (4.50-10.00) 10*3/uL RBC (4.10-5.20) 10*6/uL Hgb (12.0-15.0) g/dL Hct (37.2-46.3) % MCV (80.0-97.0) fL MCH (27.0-32.0) pg MCHC (32.0-37.0) g/dL Plt Count (140-440) 10*3/uL MPV (9.5-12.2) fL Immature Gran % (Auto) % Neutrophils % % Lymphocytes % % Monocytes % % Eosinophils % % Basophils % % Immature Gran # (0.00-0.04) 10*3/uL Neutrophils # (1.80-7.70) 10*3/uL Lymphocytes # (0.90-5.00) 10*3/uL Monocytes # (0.20-1.00) 10*3/uL Eosinophils # (0.04-0.35) 10*3/uL Basophils # (0.00-0.10) 10*3/uL PT (10.0-12.5) sec INR (<1.2) APTT (22.0-30.0) sec Sodium (137-145) mmol/L Potassium (3.5-5.1) mmol/L Chloride (98-107) mmol/L Carbon Dioxide (22-30) mmol/L Anion Gap mmol/L BUN (7-17) mg/dL Creatinine (0.52-1.04) mg/dL Est GFR (CKD-EPI)AfAm (>60 ml/min/1.73 sqM) Est GFR (CKD-EPI)NonAf (>60 ml/min/1.73 sqM) Glucose (74-99) mg/dL Calcium (8.4-10.2) mg/dL Magnesium (1.6-2.3) mg/dL Total Bilirubin (0.2-1.3) mg/dL AST (14-36) U/L ALT (4-34) U/L Alkaline Phosphatase (38-126) U/L Troponin I <0.012 (0.000-0.034) ng/mL Total Protein (6.3-8.2) g/dL Albumin (3.5-5.0) g/dL Urine Opiates Screen Not Detected (NotDetected) Ur Oxycodone Screen Not Detected (NotDetected) Urine Methadone Screen Not Detected (NotDetected) Ur Barbiturates Screen Not Detected (NotDetected) U Tricyclic Antidepress Not Detected (NotDetected) Ur Phencyclidine Scrn Not Detected (NotDetected) Ur Amphetamines Screen Not Detected (NotDetected) U Methamphetamines Scrn Detected H (NotDetected) U Benzodiazepines Scrn Not Detected (NotDetected) Urine Cocaine Screen Detected H (NotDetected) U Marijuana (THC) Screen Detected H (NotDetected) Serum Alcohol mg/dL Disposition Clinical Impression: Cocaine use disorder, Methamphetamine use disorder, severe, Chest pain Disposition: HOME SELF-CARE Condition: Stable Instructions (If sedation given, give patient instructions): Chest Pain (ED) Additional Instructions: Please return to the Emergency Department if symptoms worsen or any other c oncerns. Is patient prescribed a controlled substance at d/c from ED?: No Referrals: Evelyn Blas MD [Primary Care Provider] - 1-2 days Time of Disposition: 12:00
== END 2025-01-30 12:37 | disposition home or self-care (01) ==
LOC: EC 08:26
DX: F14.10 Cocaine abuse, uncomplicated (principal); F15.20 Other stimulant dependence, uncomplicated; R07.9 Chest pain, unspecified; Z87.891 Personal history of nicotine dependence; Z88.0 Allergy status to penicillin; Z88.1 Allergy status to other antibiotic agents; Z91.010 Allergy to peanuts; Z91.013 Allergy to seafood; Z91.041 Radiographic dye allergy status; Z88.8 Allergy status to other drugs, medicaments and biological substances
CPT/HCPCS: 36415; 93005; 80053; 83735; 84484; 85025; 85610; 85730; 80306; 99285; 96374; 96375; G0480; J1200; J2765; J1885; 80320

== ENCOUNTER 2025-02-06 16:16 | Emergency (ER) | payer OTHER ==
[2025-02-06 17:10] VITALS: TEMP 98.1
--- NOTE | 2025-02-06 18:09 | ED ---
Headache HPI - General Chief Complaint: Neuro Symptoms/Deficit Stated Complaint: epigastric pain Time Seen by Provider: 02/06/25 18:04 Source: RN notes reviewed, old records reviewed Mode of arrival: EMS Limitations: no limitations - History of Present Illness Initial Comments: This is a 44-year-old female to ER for nausea vomiting without abdominal pain here in the ER. Patient has multiple other complaints including leg edema and numbness and tingling with some increased depression. Patient as well as emergency department multiple ER visits recently for similar complaint MD Complaint: "migraine" -: days(s) Location: right, left Severity: mild Severity scale (1-10): 0 Quality: throbbing Consistency: intermittent Improves With: nothing Worsens With: none Context: occurred at rest Associated Symptoms: nausea Other Symptoms: other (0) Treatments Prior to Arrival: none - Related Data Home Medications Medication Instructions Recorded Confirmed Albuterol Inhaler [Ventolin Hfa 2 puff INHALATION RT-Q6H PRN 01/13/25 02/07/25 Inhaler] Budesonide/Formoterol Fumarate 2 puff INHALATION DIRECTED 01/13/25 02/07/25 [Symbicort 80-4.5 Mcg Inhaler] Haloperidol Decanoate 50 mg IM Q28D 01/13/25 02/07/25 Pantoprazole [Protonix] 40 mg PO DAILY 01/30/25 02/07/25 Naltrexone Microspheres [Vivitrol] 380 mg SQ Q28D 02/07/25 02/07/25 Previous Rx's Medication Instructions Recorded Aspirin EC [Ecotrin Low Dose] 81 mg PO DAILY 30 Days #30 tab 02/12/25 Atorvastatin [Lipitor] 40 mg PO HS 30 Days #30 tab 02/12/25 Baclofen [Lioresal] 5 mg PO BID PRN 30 Days #30 tab 02/12/25 Dapagliflozin Propanediol [Farxiga] 10 mg PO DAILY 30 Days #30 tab 02/12/25 Divalproex ER [Depakote ER] 500 mg PO HS 30 Days #30 tab 02/12/25 INSULIN LISPRO (HumaLOG) [HumaLOG] 0 unit SQ ACHS each 02/12/25 Nystatin 100,000 Unit/gm Powd 1 applic TOPICAL BID each 02/12/25 [Mycostatin Powder] Spironolactone [Aldactone] 25 mg PO DAILY 30 Days #30 tab 02/12/25 busPIRone HCl [Buspar] 5 mg PO BID 30 Days #60 tab 02/12/25 hydrOXYzine HCL [Atarax] 25 mg PO BID PRN 30 Days #60 tab 02/12/25 metFORMIN HCL [Glucophage] 1,000 mg PO BID-W/MEALS 30 Days 02/12/25 #120 tab Allergies Allergy/AdvReac Type Severity Reaction Status Date / Time Iodinated Contrast Media Allergy Anaphylaxis Verified 02/07/25 18:02 [Iodinated Contrast Media - IV Dye] lacosamide [From Vimpat] Allergy Anaphylaxis Verified 02/07/25 18:02 peanut Allergy Anaphylaxis Verified 02/07/25 18:02 Penicillins Allergy Anaphylaxis Verified 02/07/25 18:02 shellfish derived Allergy swelling Verified 02/07/25 18:02 all over body cephalexin monohydrate AdvReac Rash, Verified 02/07/25 18:02 [From Keflex] Nausea, Vomiting & Diarrhea morphine AdvReac Unknown Verified 02/07/25 18:02 trazodone AdvReac bp Verified 02/07/25 18:02 issues/dizziness Review of Systems ROS Statement: Those systems with pertinent positive or pertinent negative responses have been documented in the HPI. ROS Other: All systems not noted in ROS Statement are negative. Past Medical History Past Medical History: Asthma, Heart Failure, COPD, Diabetes Mellitus, Fibromyalgia, GERD/Reflux, GI Bleed, Hypertension, Liver Disease, Osteoarthritis (OA), Pneumonia, Seizure Disorder, Skin Disorder Additional Past Medical History / Comment(s): Bronchitis, gestational diabetes, seizures with last one 01/2024, sickle cell trait, liver cirrhosis, anemia, chrons, IBS, ulcerative colitis, lowr GI bleed, hemorrhoids, constipation, psoriasis, migraines, chronic low back and cervical pain, scoliosis, arhtritis in multiple joints, gout bilateral feet, History of Any Multi-Drug Resistant Organisms: None Reported Past Surgical History: Cholecystectomy, Orthopedic Surgery Additional Past Surgical History / Comment(s): L oophorectomy d/t cyst, D&C, colonoscopy, L carpal tunnel release, Past Anesthesia/Blood Transfusion Reactions: Motion Sickness, Postoperative Nausea & Vomiting (PONV) Past Psychological History: Anxiety, Bipolar, Depression, Schizophrenia Smoking Status: Former smoker Past Alcohol Use History: None Reported Past Drug Use History: Cocaine, Marijuana - Past Family History Mother History Unknown: Yes Family Medical History: Cancer Additional Family Medical History / Comment(s): Mother had breast cancer and metnal illness She is living. Father Family Medical History: Cancer Additional Family Medical History / Comment(s): Father is . He had agent orange exposure. He had liver cancer, bowel to brain cancer. General Exam Limitations: no limitations General appearance: alert, in no apparent distress Head exam: Present: atraumatic, normocephalic, normal inspection Eye exam: Present: normal appearance, PERRL, EOMI. Absent: scleral icterus, conjunctival injection, periorbital swelling ENT exam: Present: normal exam, mucous membranes moist Neck exam: Present: normal inspection. Absent: tenderness, meningismus, lymphadenopathy Respiratory exam: Present: normal lung sounds bilaterally. Absent: respiratory distress, wheezes, rales, rhonchi, stridor Cardiovascular Exam: Present: regular rate, normal rhythm, normal heart sounds. Absent: systolic murmur, diastolic murmur, rubs, gallop, clicks GI/Abdominal exam: Present: soft, normal bowel sounds. Absent: distended, tenderness, guarding, rebound, rigid Extremities exam: Present: normal inspection, full ROM, normal capillary refill. Absent: tenderness, pedal edema, joint swelling, calf tenderness Back exam: Present: normal inspection Neurological exam: Present: alert, oriented X3, CN II-XII intact Psychiatric exam: Present: normal affect, normal mood Skin exam: Present: warm, dry, intact, normal color. Absent: rash Course Vital Signs 02/06/25 02/06/25 17:07 19:48 Temperature 98.1 F Pulse Rate 63 64 Respiratory 16 18 Rate Blood Pressure 116/69 126/76 O2 Sat by Pulse 98 98 Oximetry - Reevaluation(s) Reevaluation #1: Medical records reviewed Reevaluation #2: Patient's symptoms improved Reevaluation #3: Patient informed of results questions answered Reevaluation #4: Was pt. sent in by a medical professional or institution (, PA, AQUARIST, urgent care, hospital, or fci...) When possible be specific @ -no Did you speak to anyone other than the patient for history (EMS, parent, family, police, friend...)? What history was obtained from this source @ -no Did you review nursing and triage notes (agree or disagree)? Why? @ -agree Are old charts reviewed (outside hosp., previous admission, EMS record, old EKG, old radiological studies, urgent care reports/EKG's, fci records)? Report findings @ -yes Differential Diagnosis (chest pain, altered mental status, abdominal pain women, abdominal pain men, vaginal bleeding, weakness, fever, dyspnea, syncope, headache, dizziness, GI bleed, back pain, seizure, CVA, palpatations, mental health, musculoskeletal)? @ -prior EKG interpreted by me (3pts min.). @ -no X-rays interpreted by me (1pt min.). @ -no CT interpreted by me (1pt min.). @ -no U/S interpreted by me (1pt. min.). @ -no What testing was considered but not performed or refused? (CT, X-rays, U/S, labs)? Why? @ -none What meds were considered but not given or refused? Why? @ -none Did you discuss the management of the patient with other professionals (professionals i.e. , PA, AQUARIST, lab, RT, psych nurse, social secretary, railway track worker, teacher, chief procurement officer, director of casework department)? Give summary @ -no Was smoking cessation discussed for >3mins.? @ -no Was critical care preformed (if so, how long)? @ -no Were there social determinants of health that impacted care today? How? (Homelessness, low income, unemployed, alcoholism, drug addiction, transportation, low edu. Level, literacy, decrease access to med. care, shelter, rehab)? @ -none Was there de-escalation of care discussed even if they declined (Discuss DNR or withdrawal of care, Hospice)? DNR status @ -no What co-morbidities impacted this encounter? (DM, HTN, Smoking, COPD, CAD, Cancer, CVA, ARF, Chemo, Hep., AIDS, mental health diagnosis, sleep apnea, morbid obesity)? @ -none Was patient admitted / discharged? Hospital course, mention meds given and route, prescriptions, significant lab abnormalities, going to OR and other pertinent info. @ - 44 female to the ER for evaluation of epigastric pain with nausea and vomiting. Patient has no other complaints here in the ER well-known to the emergency department for similar issues, given symptom relief feels improved and can be discharged home Discharge Undiagnosed new problem with uncertain prognosis? @ -no Drug Therapy requiring intensive monitoring for toxicity (Heparin, Nitro, Insulin, Cardizem)? @ -no Were any procedures done? @ -no Diagnosis/symptom? @ -Nausea vomiting Acute, or Chronic, or Acute on Chronic? @ -Acute Uncomplicated (without systemic symptoms) or Complicated (systemic symptoms)? @ -Complicated Side effects of treatment? @ -no Exacerbation, Progression, or Severe Exacerbation? @ -exacerbation Poses a threat to life or bodily function? How? (Chest pain, [place], [place], pneumonia, PE, COPD, DKA, ARF, appy, cholecystitis, CVA, Diverticulitis, Homicidal, Suicidal, threat to staff... and all critical care pts) @ -no Reevaluation #5: Differential Headache: Migraine, tension, cluster, carbon monoxide, central venous thrombosis, pension karma temporal arteritis, acute closure glaucoma, intercranial hemorrhage, mastoiditis, sinusitis, head injury, this is not meant to be an all-inclusive list. Medical Decision Making - Medical Decision Making 44 female to the ER for evaluation of epigastric pain with nausea and vomiting. Patient has no other complaints here in the ER well-known to the emergency department for similar issues, given symptom relief feels improved and can be discharged home Disposition Clinical Impression: Bilateral leg edema, Headache Disposition: HOME SELF-CARE Condition: Good Instructions (If sedation given, give patient instructions): Acute Headache (ED), Leg Edema (ED) Is patient prescribed a controlled substance at d/c from ED?: No Referrals: Evelyn Blas MD [Primary Care Provider] - 1-2 days Time of Disposition: 19:00
[2025-02-06 19:54] VITALS: BP 126/76; PULSE 64; RESP 18
[2025-02-06] MEDS: FUROSEMIDE 10 MG/ML 4 ML VIAL IV STA (19:56)
[2025-02-06] MEDS: KETOROLAC 15 MG/ML 1 ML VIAL IVP STA (19:58)
[2025-02-06] MEDS: MORPHINE SULFATE 4 MG/ML SYRINGE IVP STA (19:59)
== END 2025-02-06 20:20 | disposition home or self-care (01) ==
LOC: EC 16:16
DX: R60.0 Localized edema (principal); R51.9 Headache, unspecified; Z87.891 Personal history of nicotine dependence; Z88.0 Allergy status to penicillin; Z88.1 Allergy status to other antibiotic agents; Z88.5 Allergy status to narcotic agent; Z91.041 Radiographic dye allergy status; Z91.010 Allergy to peanuts; Z91.013 Allergy to seafood
CPT/HCPCS: 99283; 96374; 96375 ×2; J2270; J1885; J1938

== ENCOUNTER 2025-02-07 09:17 | Inpatient (IN) | payer MEDICAID, OTHER ==
--- NOTE | 2025-02-07 09:56 | ED ---
General Adult HPI - General Chief complaint: Psychiatric Symptoms Stated complaint: Allergic Reaction Symptoms Time Seen by Provider: 02/07/25 09:30 Source: patient Mode of arrival: ambulatory Limitations: no limitations - History of Present Illness Initial comments: Dictation was produced using [employer] dictation software. please excuse any grammatical, word or spelling errors. Chief Complaint: 44-year-old with chief complaint "I want to be admitted to 3 [facility] because I am psychic!" History of Present Illness: Patient is a 44-year-old female wants to be admitted to 3 [facility]. because states that she is having a psychotic episode. Complains of some sore throat that she reports is secondary to being given some morphine yesterday. Patient has no other complaints. The ROS documented in this emergency department record has been reviewed and confirmed by me. Those systems with pertinent positive or negative responses have been documented in the HPI. All other systems are other negative and/or noncontributory. - Related Data Home Medications Medication Instructions Recorded Confirmed Albuterol Inhaler [Ventolin Hfa 2 puff INHALATION RT-Q6H PRN 01/13/25 02/07/25 Inhaler] Budesonide/Formoterol Fumarate 2 puff INHALATION DIRECTED 01/13/25 02/07/25 [Symbicort 80-4.5 Mcg Inhaler] Haloperidol Decanoate 50 mg IM Q28D 01/13/25 02/07/25 Ondansetron Odt [Zofran ODT] 4 mg PO Q8H PRN 01/13/25 02/07/25 Trigels-F Forte (Ferrous Fum-Vit 1 cap PO DAILY 01/13/25 02/07/25 C-Vit B12-Fa) 460-60-0.01-1 Mg Pantoprazole [Protonix] 40 mg PO DAILY 01/30/25 02/07/25 Naltrexone Microspheres [Vivitrol] 380 mg SQ Q28D 02/07/25 02/07/25 Previous Rx's Medication Instructions Recorded Aspirin EC [Ecotrin Low Dose] 81 mg PO DAILY 30 Days #30 tab 01/04/25 Atorvastatin [Lipitor] 40 mg PO HS 30 Days #30 tab 01/04/25 Dapagliflozin Propanediol [Farxiga] 10 mg PO DAILY 30 Days #30 tab 01/04/25 Divalproex ER [Depakote ER] 500 mg PO HS 30 Days #30 tab 01/04/25 Spironolactone [Aldactone] 25 mg PO DAILY 30 Days #30 tab 01/04/25 busPIRone HCl [Buspar] 5 mg PO BID 30 Days #60 tab 01/04/25 hydrOXYzine HCL [Atarax] 25 mg PO BID PRN 30 Days #60 tab 01/04/25 metFORMIN HCL [Glucophage] 1,000 mg PO BID-W/MEALS 30 Days 01/04/25 #120 tab Allergies Allergy/AdvReac Type Severity Reaction Status Date / Time Iodinated Contrast Media Allergy Anaphylaxis Verified 02/07/25 18:02 [Iodinated Contrast Media - IV Dye] lacosamide [From Vimpat] Allergy Anaphylaxis Verified 02/07/25 18:02 peanut Allergy Anaphylaxis Verified 02/07/25 18:02 Penicillins Allergy Anaphylaxis Verified 02/07/25 18:02 shellfish derived Allergy swelling Verified 02/07/25 18:02 all over body cephalexin monohydrate AdvReac Rash, Verified 02/07/25 18:02 [From Keflex] Nausea, Vomiting & Diarrhea morphine AdvReac Unknown Verified 02/07/25 18:02 trazodone AdvReac bp Verified 02/07/25 18:02 issues/dizziness Review of Systems ROS Statement: Those systems with pertinent positive or pertinent negative responses have been documented in the HPI. ROS Other: All systems not noted in ROS Statement are negative. Past Medical History Past Medical History: Asthma, Heart Failure, COPD, Diabetes Mellitus, Fibromyalgia, GERD/Reflux, GI Bleed, Hypertension, Liver Disease, Osteoarthritis (OA), Pneumonia, Seizure Disorder, Skin Disorder Additional Past Medical History / Comment(s): Bronchitis, gestational diabetes, seizures with last one 01/2024, sickle cell trait, liver cirrhosis, anemia, chrons, IBS, ulcerative colitis, lowr GI bleed, hemorrhoids, constipation, psoriasis, migraines, chronic low back and cervical pain, scoliosis, arhtritis in multiple joints, gout bilateral feet, History of Any Multi-Drug Resistant Organisms: None Reported Past Surgical History: Cholecystectomy, Orthopedic Surgery Additional Past Surgical History / Comment(s): L oophorectomy d/t cyst, D&C, colonoscopy, L carpal tunnel release, Past Anesthesia/Blood Transfusion Reactions: Motion Sickness, Postoperative Nausea & Vomiting (PONV) Past Psychological History: Anxiety, Bipolar, Depression, Schizophrenia Smoking Status: Former smoker Past Alcohol Use History: None Reported Past Drug Use History: Cocaine, Marijuana - Past Family History Mother History Unknown: Yes Family Medical History: Cancer Additional Family Medical History / Comment(s): Mother had breast cancer and metnal illness She is living. Father Family Medical History: Cancer Additional Family Medical History / Comment(s): Father is . He had agent orange exposure. He had liver cancer, bowel to brain cancer. General Exam - General Exam Comments Initial Comments: General: Well-appearing, nontoxic, no acute distress. Head: Normocephalic, atraumatic Eyes: PERRLA, EOMI ENT: Airway patent Chest: Nonlabored breathing Skin: No visual rash, normal skin tone Neuro: Alert and oriented 3 Musculoskeletal: No gross abnormalities Psych: Aggressive Limitations: no limitations Course Vital Signs 02/07/25 02/07/25 02/07/25 09:19 09:35 15:27 Temperature 98.1 F 98.5 F Pulse Rate 52 L 53 L 67 Respiratory 20 18 16 Rate Blood Pressure 148/75 132/77 125/64 O2 Sat by Pulse 98 97 95 Oximetry Medical Decision Making - Medical Decision Making Was pt. sent in by a medical professional or institution (, PA, INSTALLATION TECH, urgent care, hospital, or care home...) When possible be specific @ -No Did you speak to anyone other than the patient for history (EMS, parent, family, police, friend...)? What history was obtained from this source @ -No Did you review nursing and triage notes (agree or disagree)? Why? @ -I reviewed and agree with nursing and triage notes Were old charts reviewed (outside hosp., previous admission, EMS record, old EKG, old radiological studies, urgent care reports/EKG's, care home records)? Report findings @ -No old charts were reviewed Differential Diagnosis (chest pain, altered mental status, abdominal pain women, abdominal pain men, vaginal bleeding, musculoskeletal, weakness, fever, dyspnea, syncope, headache, dizziness, GI bleed, back pain, seizure, CVA, palpatations, mental health)? @ -Differential Mental Health: Depression, anxiety, bipolar, psychosis, schizophrenia, borderline personality, situational depression, adjustment disorder, behavioral disorder, brain tumor, malingering, substance abuse, encephalopathy, medication reaction, dementia, hypothyroidism, degenerative neurologic disorder, lupus.... This is not meant to be all-inclusive list EKG interpreted by me (3pts min.). @ -None done X-rays interpreted by me (1pt min.). @ -None done CT interpreted by me (1pt min.). @ -None done U/S interpreted by me (1pt. min.). @ -None done What testing was considered but not performed or refused? (CT, X-rays, U/S, labs)? Why? @ -None What meds were considered but not given or refused? Why? @ -None Was smoking cessation discussed for >3mins.? @ -No Were there social determinants of health that impacted care today? How? (Homelessness, low income, unemployed, alcoholism, drug addiction, transportation, low edu. Level, literacy, decrease access to med. care, half-way, rehab)? @ -No Was there de-escalation of care discussed even if they declined (Discuss DNR or withdrawal of care, Hospice)? DNR status @ -No What co-morbidities impacted this encounter? (DM, HTN, Smoking, COPD, CAD, Cancer, CVA, ARF, Chemo, Hep., AIDS, mental health diagnosis, sleep apnea, morbid obesity)? @ -Psychiatric illness Was patient admitted / discharged? Hospital course, mention meds given and route, prescriptions, significant lab abnormalities, going to OR and other pertinent info. @ -44-year-old female presents to the emergency department with psychiatric c omplaint. Vital signs stable. Complaint of sore throat. Tolerating her secretions. No distress. No dyspnea. Rapid strep test negative. Patient medically cleared for EPS. Patient admitted by EPS and will be admitted to [facility]. Did you discuss the management of the patient with other professionals (professionals i.e. , PA, INSTALLATION TECH, lab, RT, psych nurse, social service coordinator, blueprint engineer, teacher, staff readiness officer, disease case manager rn)? Give summary @ -No Was critical care preformed (if so, how long)? @ -No Undiagnosed new problem with uncertain prognosis? @ -No Drug Therapy requiring intensive monitoring for toxicity (Heparin, Nitro, Insulin, Cardizem)? @ -No Were any procedures done? @ -No Diagnosis/symptom? Acute, or Chronic, or Acute on Chronic? Uncomplicated (without systemic symptoms) or Complicated (systemic symptoms)? @ -Psychiatric complaint Side effects of treatment? @ -No Exacerbation, Progression, or Severe Exacerbation? @ -No Poses a threat to life or bodily function? How? (Chest pain, [place], [place], pneumonia, PE, COPD, DKA, ARF, appy, cholecystitis, CVA, Diverticulitis, Homicidal, Suicidal, threat to staff... and all critical care pts) @ -yes - Lab Data Lab Results 02/07/25 02/07/25 02/07/25 Range/Units 09:48 10:18 15:23 POC Glucose (mg/dL) 120 H (70-110) mg/dL POC Glu Pst Manager ID [facility] Urine Opiates Screen Positive A (Negative) Urine Methadone Screen Negative (Negative) Ur Propoxyphene Screen Negative (Negative) Urine Barbiturates Negative (Negative) Ur Phencyclidine Scrn Negative (Negative) Ur Amphetamine Screen Negative (Negative) U Benzodiazepines Scrn Negative (Negative) Urine Cocaine Screen Positive A (Negative) U Cannabinoids Screen Negative (Negative) Urine Alcohol Negative (Negative) U Creatinine Drug Scrn 135.0 (>=20.0) mg/dL Influenza Type A (PCR) (Not Detectd) Influenza Type B (PCR) (Not Detectd) RSV (PCR) (Not Detectd) SARS-CoV-2 (PCR) (Not Detectd) Group A Strep (PCR) NOT DETECTED (Not Detectd) 02/07/25 Range/Units 16:43 POC Glucose (mg/dL) (70-110) mg/dL POC Glu Pst Manager ID Urine Opiates Screen (Negative) Urine Methadone Screen (Negative) Ur Propoxyphene Screen (Negative) Urine Barbiturates (Negative) Ur Phencyclidine Scrn (Negative) Ur Amphetamine Screen (Negative) U Benzodiazepines Scrn (Negative) Urine Cocaine Screen (Negative) U Cannabinoids Screen (Negative) Urine Alcohol (Negative) U Creatinine Drug Scrn (>=20.0) mg/dL Influenza Type A (PCR) Not Detected (Not Detectd) Influenza Type B (PCR) Not Detected (Not Detectd) RSV (PCR) Not Detected (Not Detectd) SARS-CoV-2 (PCR) Not Detected (Not Detectd) Group A Strep (PCR) (Not Detectd) Disposition Clinical Impression: Suicidal ideations Disposition: TRANSFER TO PSYCH HOSP/UNIT Condition: Fair
[2025-02-07] MEDS: LIDOCAINE VISCOUS 2% 15 ML CUP PO ONE (12:55)
[2025-02-07 15:25] LABS: Glucose,Whole Blood 120 mg/dL (70-110)
[2025-02-07 17:39] LABS: RSV Not Detected (Not Detectd)
[2025-02-07 17:50] LABS: Urine Alcohol Negative (Negative); Urine Barbiturate Negative (Negative)
[2025-02-07] MEDS ORDERED: ALBUTEROL INHALER 60 PUFF/8 GM INHALER (MHU) INHALATION PRN (18:20)
[2025-02-07] MEDS ORDERED: MAGNESIUM HYDROXIDE 2,400 MG/30 ML CUP PO PRN (18:22)
[2025-02-07] MEDS ORDERED: LORazepam 1 MG TAB PO PRN (18:22)
[2025-02-07] MEDS ORDERED: HALOPERIDOL LACTATE 5 MG/ML 1 ML VIAL IM PRN (18:22)
[2025-02-07] MEDS ORDERED: DEXTROSE 50% SYRINGE 50 ML IVP PRN ×2 (18:38)
[2025-02-07] MEDS ORDERED: SYMBICORT 80-4.5 MCG INHALER INHALATION SCH (20:00)
[2025-02-07 21:03] LABS: Glucose,Whole Blood 138 mg/dL (70-110)
[2025-02-07] MEDS: SYMBICORT 80-4.5 MCG INHALER (MHU) INHALATION SCH (21:03)
[2025-02-07] MEDS: DIVALPROEX ER 500 MG TAB.ER.24H PO SCH (21:03)
[2025-02-07] MEDS: ATORVASTATIN 40 MG TAB PO SCH (21:03)
[2025-02-07] MEDS: NICOTINE 14MG/24HR PATCH TRANSDERM SCH (21:09)
[2025-02-07] MEDS: INSULIN LISPRO (HumaLOG) 100 UNIT/ML 10 mL VL SQ SCH (21:11)
[2025-02-07] MEDS: LORazepam 1 MG TAB PO PRN (21:42)
[2025-02-07] MEDS: NYSTATIN 100,000 UNIT/GM POWD 15 GM TOPICAL SCH (21:53)
[2025-02-07] MEDS: IBUPROFEN 600 MG TAB PO PRN (21:55)
[2025-02-07] MEDS: ACETAMINOPHEN TAB 325 MG TAB PO PRN (21:55)
[2025-02-08 07:50] LABS: Glucose,Whole Blood 139 mg/dL (70-110)
[2025-02-08] MEDS: metFORMIN 500 MG TAB PO SCH (09:30)
[2025-02-08] MEDS: SPIRONOLACTONE 25 MG TAB PO SCH (09:31)
[2025-02-08] MEDS: DAPAGLIFLOZIN PROPANEDIOL 10 MG TABLET PO SCH (09:31)
[2025-02-08] MEDS: ASPIRIN 81 MG PO SCH (09:31)
[2025-02-08] MEDS: PANTOPRAZOLE 40 MG TABLET PO SCH (09:32)
[2025-02-08 12:43] LABS: Glucose,Whole Blood 105 mg/dL (70-110)
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
[2025-02-08] MEDS: hydrOXYzine HCL 25 MG TAB PO PRN (14:24)
[2025-02-08 17:14] LABS: Glucose,Whole Blood 139 mg/dL (70-110)
[2025-02-08 17:20] LABS: Bilirubin,Urine Negative (Negative); Blood,Urine Negative (Negative); Color,Urine Colorless; Glucose,Urine (UA) 4+ (Negative); Ketones,Urine Negative (Negative); Leukocyte Esterase,Urine Negative (Negative); Nitrite,Urine Negative (Negative); PH, Urine 6.0 (5.0-8.0); Protein,Urine Negative (Negative); Specific Gravity,Urine 1.010 (1.001-1.035); Urobilinogen,Urine <2.0 mg/dL (<2.0)
[2025-02-08 19:53] LABS: Glucose,Whole Blood 90 mg/dL (70-110)
--- NOTE | 2025-02-09 05:14 | P.MDCNMH ---
History of Present Illness H&P Date: 02/08/25 This is a 44-year-old female who presented to the emergency department with request of psychiatric evaluation. Patient follows with Dr. Pal Garza in the outpatient setting, COPD, diabetes, hypertension, previous liver disease, osteoarthritis, morbid obesity, anxiety/bipolar depression, schizophrenia. Patient follows with [facility] outpatient as well and has a guardian. Patient apparently has been staying at an [facility]. And reports she has multiple issues with this facility. On exam patient is afebrile with no reports of chest pain or shortness of breath. Patient does have significant history of excoriation and yeast lower abdominal folds but refuses to wash that area or put any nystatin on it. REVIEW OF SYSTEMS: CONSTITUTIONAL: No fever, no malaise, no fatigue. HEENT: No recent visual problems or hearing problems. Denied any sore throat. CARDIOVASCULAR: Reports of intermittent chest pain for 1 month, orthopnea, PND, no palpitations, no syncope. PULMONARY: No shortness of breath, no cough, no hemoptysis. GASTROINTESTINAL: No diarrhea, no nausea, no vomiting, no abdominal pain. NEUROLOGICAL: No headaches, no weakness, no numbness. HEMATOLOGICAL: Denies any bleeding or petechiae. GENITOURINARY: Denies any burning micturition, frequency, or urgency. MUSCULOSKELETAL/RHEUMATOLOGICAL: Denies any joint pain, swelling, or any muscle pain. ENDOCRINE: Denies any polyuria or polydipsia. The rest of the 14-point review of systems is negative. PHYSICAL EXAMINATION: GENERAL: The patient is alert and oriented x3, not in any acute distress. Anxious, well developed, well nourished. Morbidly obese HEENT: Pupils are round and equally reacting to light. EOMI. No scleral icterus. No conjunctival pallor. Normocephalic, atraumatic. No pharyngeal erythema. No thyromegaly. CARDIOVASCULAR: S1 and S2 muffled. PULMONARY: Chest is clear to auscultation, no wheezing or crackles. ABDOMEN: Soft, morbidly obese nontender, nondistended, normoactive bowel sounds. No palpable organomegaly. Lower abdominal fold noted to be excoriated with no surrounding cellulitis and odorous MUSCULOSKELETAL: No joint swelling or deformity. EXTREMITIES: No cyanosis, clubbing, or pedal edema. NEUROLOGICAL: Gross neurological examination did not reveal any focal deficits. Gait steady on exam SKIN: No rashes. Assessment: Depression with voluntary admission to [facility] History of heart failure exacerbation Asthma/COPD history, not in exacerbation Diabetes mellitus type 2, uncontrolled with hyperglycemia Morbid obesity with a BMI of 44.7 History of fibromyalgia History of GERD History of hypertension History of osteoarthritis History of anxiety/bipolar depression/schizophrenia GI prophylaxis Full code Plan: Patient is voluntarily admitted to [facility] for further psychiatric evaluation Home medications reviewed and resumed as appropriate Patient does have chronic significant excoriation and yeast buildup of the lower abdominal folds and recommend nystatin and zinc paste around the surrounding areas although patient is refusing. Recommend daily showers Recommend basic labs Encouraged group therapy sessions and compliance with medications and psychiatry evaluation Follow-up [facility] outpatient Social work/case management to discuss with legal guardian regarding back to [facility] Thank you kindly for the consultation. Please do not hesitate to contact with any questions or concerns The impression and plan of care has been dictated by Akila Amato, Nurse Practitioner as directed. Dr. Juan MD I have performed a history and examination and MDM of this patient, discussed the same with the dictator, and agree with the dictator's assessment and plan as written ,documented as a scribe. Based on total visit time, I have performed more than 50% of the visit. Past Medical History Past Medical History: Asthma, Heart Failure, COPD, Diabetes Mellitus, Fibromyalgia, GERD/Reflux, GI Bleed, Hypertension, Liver Disease, Osteoarthritis (OA), Pneumonia, Seizure Disorder, Skin Disorder Additional Past Medical History / Comment(s): Bronchitis, gestational diabetes, seizures with last one 01/2024, sickle cell trait, liver cirrhosis, anemia, chrons, IBS, ulcerative colitis, lowr GI bleed, hemorrhoids, constipation, psoriasis, migraines, chronic low back and cervical pain, scoliosis, arhtritis in multiple joints, gout bilateral feet, History of Any Multi-Drug Resistant Organisms: None Reported Past Surgical History: Cholecystectomy, Orthopedic Surgery Additional Past Surgical History / Comment(s): L oophorectomy d/t cyst, D&C, colonoscopy, L carpal tunnel release, Past Anesthesia/Blood Transfusion Reactions: Motion Sickness, Postoperative Nausea & Vomiting (PONV) Past Psychological History: Anxiety, Bipolar, Depression, Schizophrenia Smoking Status: Former smoker Past Alcohol Use History: None Reported Past Drug Use History: Cocaine, Marijuana - Past Family History Mother History Unknown: Yes Family Medical History: Cancer Additional Family Medical History / Comment(s): Mother had breast cancer and metnal illness She is living. Father Family Medical History: Cancer Additional Family Medical History / Comment(s): Father is . He had agent orange exposure. He had liver cancer, bowel to brain cancer. Medications and Allergies Home Medications Medication Instructions Recorded Confirmed Type Aspirin EC [Ecotrin Low Dose] 81 mg PO DAILY 30 Days #30 tab 01/04/25 02/07/25 Rx Atorvastatin [Lipitor] 40 mg PO HS 30 Days #30 tab 01/04/25 02/07/25 Rx Dapagliflozin Propanediol [Farxiga] 10 mg PO DAILY 30 Days #30 tab 01/04/25 02/07/25 Rx Divalproex ER [Depakote ER] 500 mg PO HS 30 Days #30 tab 01/04/25 02/07/25 Rx Spironolactone [Aldactone] 25 mg PO DAILY 30 Days #30 tab 01/04/25 02/07/25 Rx busPIRone HCl [Buspar] 5 mg PO BID 30 Days #60 tab 01/04/25 02/07/25 Rx hydrOXYzine HCL [Atarax] 25 mg PO BID PRN 30 Days #60 tab 01/04/25 02/07/25 Rx metFORMIN HCL [Glucophage] 1,000 mg PO BID-W/MEALS 30 Days 01/04/25 02/07/25 Rx #120 tab Albuterol Inhaler [Ventolin Hfa 2 puff INHALATION RT-Q6H PRN 01/13/25 02/07/25 History Inhaler] Budesonide/Formoterol Fumarate 2 puff INHALATION DIRECTED 01/13/25 02/07/25 History [Symbicort 80-4.5 Mcg Inhaler] Haloperidol Decanoate 50 mg IM Q28D 01/13/25 02/07/25 History Ondansetron Odt [Zofran ODT] 4 mg PO Q8H PRN 01/13/25 02/07/25 History Trigels-F Forte (Ferrous Fum-Vit 1 cap PO DAILY 01/13/25 02/07/25 History C-Vit B12-Fa) 460-60-0.01-1 Mg Pantoprazole [Protonix] 40 mg PO DAILY 01/30/25 02/07/25 History Naltrexone Microspheres [Vivitrol] 380 mg SQ Q28D 02/07/25 02/07/25 History Allergies Allergy/AdvReac Type Severity Reaction Status Date / Time Iodinated Contrast Media Allergy Anaphylaxis Verified 02/07/25 18:02 [Iodinated Contrast Media - IV Dye] lacosamide [From Vimpat] Allergy Anaphylaxis Verified 02/07/25 18:02 peanut Allergy Anaphylaxis Verified 02/07/25 18:02 Penicillins Allergy Anaphylaxis Verified 02/07/25 18:02 shellfish derived Allergy swelling Verified 02/07/25 18:02 all over body cephalexin monohydrate AdvReac Rash, Verified 02/07/25 18:02 [From Keflex] Nausea, Vomiting & Diarrhea morphine AdvReac Unknown Verified 02/07/25 18:02 trazodone AdvReac bp Verified 02/07/25 18:02 issues/dizziness Physical Exam Vitals: Vital Signs Temp Pulse Pulse Resp BP BP BP 02/07/25 23:59 97.9 F 47 L 16 115/79 02/07/25 21:00 97.3 F L 68 16 99/54 02/07/25 15:27 67 16 125/64 Pulse Ox 02/07/25 23:59 99 02/07/25 21:00 02/07/25 15:27 95 Intake and Output 02/07/25 02/08/25 02/08/25 22:59 06:59 14:59 Other: Weight 118.206 kg Cranial Nerve Examination - Cranial Nerves Cranial Nerve I- Olfactory: Intact Cranial Nerve II- Optic: Intact Cranial Nerve III- Oculomotor: Intact Cranial Nerve IV- Trochlear: Intact Cranial Nerve V- Trigeminal: Intact Cranial Nerve - Abducens: Intact Cranial Nerve VII- Facial: Intact Cranial Nerve VIII- Auditory: Intact Cranial Nerve IX- Glossopharyngeal: Intact Cranial Nerve X- Vagus: Intact Cranial Nerve XI- Accessory: Intact Cranial Nerve XII- Hypoglossal: Intact Results Labs: Abnormal Lab Results - Last 24 Hours (Table) 02/07/25 02/07/25 02/07/25 Range/Units 10:18 15:23 21:01 POC Glucose (mg/dL) 120 H 138 H (70-110) mg/dL Urine Opiates Screen Positive A (Negative) Urine Cocaine Screen Positive A (Negative) 02/08/25 Range/Units 07:49 POC Glucose (mg/dL) 139 H (70-110) mg/dL Urine Opiates Screen (Negative) Urine Cocaine Screen (Negative)
[2025-02-09 07:40] LABS: Glucose,Whole Blood 126 mg/dL (70-110)
[2025-02-09 07:58] LABS: Basophils # (A) 0.05 10*3/uL (0.00-0.10); Basophils % (A) 0.4 %; Eosinophils # (A) 0.70 10*3/uL (0.04-0.35); Eosinophils % (A) 5.7 %; HCT 39.2 % (37.2-46.3); HGB 12.2 g/dL (12.0-15.0); Lymphocytes # (A) 2.34 10*3/uL (0.90-5.00); Lymphocytes % (A) 19.1 %; MCH 27.1 pg (27.0-32.0); MCHC 31.1 g/dL (32.0-37.0); MCV 86.9 fL (80.0-97.0); Monocytes # (A) 0.71 10*3/uL (0.20-1.00); Monocytes % (A) 5.8 %; Neutrophils # (A) 8.38 10*3/uL (1.80-7.70); Neutrophils % (A) 68.6 %; Platelet Count 219 10*3/uL (140-440); RBC 4.51 10*6/uL (4.10-5.20); RDW 14.5 % (11.5-14.5); WBC 12.23 10*3/uL (4.50-10.00)
[2025-02-09 08:23] LABS: ALT 15 U/L (4-34); AST 18 U/L (14-36); African American GFR (CKD) >90 (>60 ml/min/1.73 sqM); Albumin 3.5 g/dL (3.5-5.0); Alkaline Phosphatase 152 U/L (38-126); Anion Gap 11 mmol/L; Blood Urea Nitrogen 8 mg/dL (7-17); Calcium 9.0 mg/dL (8.4-10.2); Carbon Dioxide 22 mmol/L (22-30); Chloride 109 mmol/L (98-107); Glucose 127 mg/dL (74-99); Non-African American GFR(CKD) >90 (>60 ml/min/1.73 sqM); Potassium 4.3 mmol/L (3.5-5.1); Sodium 142 mmol/L (137-145); Total Protein 6.4 g/dL (6.3-8.2)
[2025-02-09 12:35] LABS: Glucose,Whole Blood 117 mg/dL (70-110)
[2025-02-09] MEDS: OLANZapine ODT 10 MG TAB PO STA (13:07)
--- NOTE | 2025-02-09 13:57 | P.PN ---
Progress Note - Text Progress Note Date: 02/09/25 Interval History: Patient was seen wandering the hallways and was directable and agreeable to sp eak with mortgage underwriter in the [place] privately. Patient is adamant that she did not relapse on crack cocaine, stating that she has been having issues with her sister who is trying to connect her with a friend to use crack together. Patient appeared surprised when told that her drug screen was positive for cocaine, not interested in rehab despite encouragement however she was reminded of her substance use disorder order that she is currently under. She was informed of her violating disorder. She is requesting to go to a assisted. She initially states not wanting to return home with her sister however once informed that she will have to look into a snf as she is homeless she then states she will likely return home with sister. At this time patient denies any suicidal or homicidal ideations, intent or plan. She reports chronic, stable auditory hallucinations, not appearing internally preoccupied. Patient denies any visual hallucinations and denies any paranoia or delusions. Patient denies any side effects from the medications and has been compliant with meds. Patient became upset when informed that she will not be discharged today, displaying predominant behavioral symptoms including drinking from the toilet but was amenable to as needed medications. Mental Status Exam: General Appearance: Patient appears to be stated age is alert, directable, and cooperative. She is obese Behavior: Patient displays irritability Speech: Patient's speech is fluent and nonpressured. Mood/Affect: Mood is improving mildly, affect is congruent and constricted. Suicidality/Homicidality: Patient denies having any suicidal or homicidal ideation intent or plan. Perceptions: Patient denies any visual hallucinations however she reports stable, chronic auditory hallucinations Though content/process: There is no evidence of any delusional thought content and thought process is linear and goal-directed. Memory and concentration: AOX3, grossly intact for the purposes of this session Judgment and insight: Improving mildly Assessment Schizoaffective disorder Anxiety disorder, unspecified Borderline personality disorder Stimulant use disorder Plan: -Patient continues to meet criteria for inpatient psychiatric admission for symptom stabilization and safety. Patient has signed adult voluntary form and medication consent and was placed in patient's chart. -Medications: Continue BuSpar 5 mg twice daily for anxiety, Depakote ER 500 mg at bedtime for mood stabilization, Haldol decanoate 50 mg IM every 4 weeks, next due on 02/26, Vivitrol 380 mg IM every 4 weeks, next due on 02/26 -When necessary Ativan and Haldol for agitation/aggression. -Labs: Reviewed - on board for discharge planning. Encouraged the patient to participate in milieu. Anticipate discharge to sister's house on Wednesday. Consult placed for assisted and given patient's violation of her JAYLON order, will like to get [facility] involved regarding violating this order so that patient can go to rehab as she has been refusing this
[2025-02-09 15:23] LABS: Cholesterol 131.00 mg/dL (0.00-200.00); HDL Cholesterol 37.00 mg/dL (40.00-60.00); LDL Cholesterol,Calculated 64.4 mg/dL (0.0-131.0); Triglycerides 148.00 mg/dL (0.00-149.00); VLDL Calculation 29.60 mg/dL (5.00-40.00)
[2025-02-09 20:11] LABS: Glucose,Whole Blood 137 mg/dL (70-110)
[2025-02-10 07:42] LABS: Glucose,Whole Blood 150 mg/dL (70-110)
[2025-02-10 12:34] LABS: Glucose,Whole Blood 115 mg/dL (70-110)
[2025-02-10] MEDS: MAG HYDROX/AL HYDROX/SIMETH 355 ML BOTTLE PO PRN (15:07)
[2025-02-10] MEDS: BACLOFEN 10 MG TAB PO PRN (15:52)
[2025-02-10 17:42] LABS: Glucose,Whole Blood 131 mg/dL (70-110)
[2025-02-10 21:27] LABS: Glucose,Whole Blood 145 mg/dL (70-110)
[2025-02-11 07:54] LABS: Glucose,Whole Blood 117 mg/dL (70-110)
[2025-02-11 12:36] LABS: Glucose,Whole Blood 114 mg/dL (70-110)
[2025-02-11 13:40] VITALS: RESP 18
--- NOTE | 2025-02-11 17:05 | P.PN ---
Progress Note - Text Progress Note Date: 02/10/25 Interval History: Patient was seen wandering the hallways on multiple occasions with attention se eking behaviors. She appears irritable, at times demanding, somatically preoccupied, states she has muscle tightness/spasms and focused on when she will be seen. She is often at the nurse's station, asking for Flexeril. Medical doctor was contacted and order for Baclofen was placed. She is malodorous from chronic yeast infections of the skin. Nystatin is ordered for her however she has been refusing this. She has also been refusing her nicotine patch so this will be discontinued. Otherwise she has been compliant with her other medications. At this time, patient denies any suicidal or homicidal ideation, intent or plan. She does not appear to be attending to internal stimuli. Patient denied any visual hallucinations and denies any paranoia or delusions. Mental Status Exam: General Appearance: Patient appears to be stated age, obese, short hair and wearing eyeglasses. Behavior: Patient displays irritability, demanding, attention seeking behaviors. Speech: Patient's speech is fluent and non-pressured. Mood/Affect: Mood is improving mildly, affect is congruent and constricted. Suicidality/Homicidality: Patient denied having any suicidal or homicidal ideation intent or plan. Perceptions: Patient denied any visual hallucinations however she has history of chronic auditory hallucinations at baseline Though content/process: There is no overt evidence of any delusional thought con tent and thought process is linear and goal-directed. Memory and concentration: AOX3, grossly intact for the purposes of this session Judgment and insight: Improving mildly Assessment/Plan: -Proceed with current diagnosis. -Patient continues to meet criteria for inpatient psychiatric admission for symptom stabilization and safety. Patient has signed adult voluntary form and medication consent and was placed in patient's chart. -Medications: Continue BuSpar 5 mg twice daily for anxiety, Depakote ER 500 mg at bedtime for mood stabilization, Haldol decanoate 50 mg IM every 4 weeks, next due on 02/26, Vivitrol 380 mg IM every 4 weeks, next due on 02/26. -When necessary Ativan and Haldol for agitation/aggression. -SW on board for discharge planning. Encourage the patient to participate in milieu.
--- NOTE | 2025-02-11 17:10 | P.PN ---
Progress Note - Text Progress Note Date: 02/11/25 Interval history: Patient was seen wandering the hallways on multiple occasions again today. She initially appears irritable, at times demanding, asking when she'll be seen, required redirection. She continues to be somatically preoccupied, states she has not been prescribed her seizure medication. When asked if she has an active outpatient prescription for this seizure med, she states she does not because it has been some time since she last saw a neurologist and needs to find a new neurologist. She will need to discuss with her outpatient PCP regarding a referral to neurology. She claims she has been having seizures here on the unit however she has appeared awake, alert, fully oriented, and coherent, has not been seen having a seizure while on the unit. She is malodorous from chronic yeast infections of the skin, continues to refuse the Nystatin. Otherwise she has been compliant with her other medications. At this time, patient denies any suicidal or homicidal ideation, intent or plan. She does not appear to be attending to internal stimuli. Patient denied any visual hallucinations and denies any paranoia or delusions. She inquired about discharge tomorrow. Mental Status Exam: General Appearance: Patient appears to be stated age, obese, short hair and wearing eyeglasses. Behavior: Patient displays irritability, demanding, attention seeking behaviors. Speech: Patient's speech is fluent and non-pressured. Mood/Affect: Mood is improving mildly, affect is congruent and constricted. Suicidality/Homicidality: Patient denied having any suicidal or homicidal ideation intent or plan. Perceptions: Patient denied any visual hallucinations however she has history of chronic auditory hallucinations at baseline Though content/process: There is no overt evidence of any delusional thought content and thought process is linear and goal-directed. Memory and concentration: AOX3, grossly intact for the purposes of this session Judgment and insight: Improving mildly Assessment/Plan: Continue with current diagnosis. Patient continues to meet criteria for inpatient psychiatric admission for symptom stabilization and safety. Patient will be maintained on current psychotropic medication regimen. Monitor for medication compliance and for any psychotropic medication side effects. Will continue to monitor ongoing response to treatment. Encouraged participation in milieu.
[2025-02-11 17:19] LABS: Glucose,Whole Blood 100 mg/dL (70-110)
[2025-02-11] MEDS: ONDANSETRON ODT 4 MG TAB PO PRN (17:26)
[2025-02-11 21:18] LABS: Glucose,Whole Blood 164 mg/dL (70-110)
[2025-02-12 07:48] LABS: Glucose,Whole Blood 110 mg/dL (70-110)
[2025-02-12 11:11] VITALS: BP 97/63; PULSE 101; TEMP 96.8
[2025-02-12 12:35] LABS: Glucose,Whole Blood 144 mg/dL (70-110)
--- NOTE | 2025-02-12 14:18 | P.DS ---
Providers Date of admission: 02/07/25 18:00 Expected date of discharge: 02/12/25 Attending physician: Jaqui Murillo MD Consults: 02/07/25 18:22 Consult Physician Routine Consulting Provider: [place] Fabi Consult Reason/Comments: H and P Do you want consulting provider notified?: Yes Primary care physician: Evelyn Blas - Discharge Diagnosis(es) (1) Schizoaffective disorder Status: Acute Priority: High (2) Stimulant use disorder Status: Acute Priority: High (3) Anxiety disorder Status: Acute Priority: Medium (4) Borderline personality disorder Status: Chronic Priority: High Hospital Course: Admission HPI: Admission note was completed by Dr. Ortiz "The patient presented to the hospital telling the emergency room staff to admit her to 3 [facility] because she psychic. Patient's UDS was positive for cocaine. I started the interview the patient notes the main reason that she came was her meds stopped working. When asking her why she did not go to [facility] or call them she had noted that it is not easy to get in touch with them. She notes that she took some morphine and hydroxyzine and mouth started swelling. Then the patient stated look you are not going to talk to me like that with her voice getting high and pointing her finger she was informed not to get aggressive with the interviewer. At this point it was felt to discontinue the interview prior to escalation." Hospital course: Upon admission to the unit patient was directable and agreeable to commence nicky atment and signed adult voluntary form.. Patient got along well with other patients on the unit and followed unit protocol. Patient was compliant with the medications and denied any side effects throughout hospital course. Patient was started on her current home meds including BuSpar 5 mg twice daily for anxiety, Depakote ER 500 mg at bedtime for mood stabilization, Haldol decanoate 50 mg IM every 4 weeks next due on 02/26, Vivitrol 380 mg IM every 4 weeks next due on 02/26. Patient spoke of her stressors and engaged in therapy both group and individual. Patient was also seen by medical team for history and physical exam. Throughout the course of the hospitalization patient gradually improved with regards to mood, anxiety, sleep and returned back to their baseline level of functioning. On the day of discharge patient denied any suicidal or homicidal ideations intent or plan denied any auditory or visual hallucinations. The patient denied any access to guns or weapons. Patient denied any paranoia and did not endorse any delusions. Patient does have a significant history of substance abuse and was counseled on abstaining from all substances including alcohol and marijuana. Patient was offered however declined inpatient substance-abuse rehab. Patient is currently on an JAYLON order given her positive drug screen she is in violation of this order, court is set for February 21. Joseph zapien was also counseled on the medications and need for regular compliance and was encouraged to follow-up with their outpatient appointment for mental health and also for primary care. Patient to be discharged home with sisters and will follow-up with [facility]. Mental status exam: General Appearance: Patient appears to be stated age is alert, pleasant, and cooperative. Patient is in no acute distress and has improved hygiene and grooming Behavior: Patient is calmly seated without any agitated behavior. Speech: Patient's speech is fluent and nonpressured. Mood/Affect: Patient reports their mood is "good", affect is congruent and euthymic. Suicidality/Homicidality: Patient denies having any suicidal or homicidal ideation intent or plan. Perceptions: Patient denies any visual hallucinations. She reports baseline, stable auditory hallucinations Though content/process: There is no evidence of any delusional thought content and thought process is linear and goal-directed. Memory and concentration: AOX3, grossly intact for the purposes of this session. Can spell "WORLD" backwards correctly. Judgment and insight: Chronically poor, however has improved with guarded prognosis Impression: Schizoaffective disorder Anxiety disorder, unspecified Borderline personality disorder Stimulant use disorder Plan: -Continue with discharge today as patient has improved and stabilized psychia trically and is not currently an imminent threat to themself and/or others. Patient will remain at chronically elevated risk for harm to self and/or others due to their impulsivity and substance abuse. -Continue medications: BuSpar 5 mg twice daily, Depakote ER 500 mg at bedtime, Haldol decanoate 5 mg IM every 4 weeks next due on 02/26, Vivitrol 380 mg IM every 4 weeks next due on 02/26 -Patient was counseled on the need for medication compliance and appropriate follow-up at mental health and also primary care for medical issues. Patient verbalized understanding and agreed. -Social work to help coordinate patients discharge today. also to ensure safe home environment that guns/weapons are either removed from the home or locked away. Social work also to arrange for patients follow up appointments with [facility] for psychiatric care along with follow up with primary care provider. -Patient counseled on abstaining from recreational drugs and marijuana and alcohol. Was informed/educated on the adverse effects on their physical and mental health. Patient verbally agreed and understood. Patient was offered substance abuse treatment however declined at this time. -Patient was instructed to return to the hospital or seek immediate medical care if their psychiatric or medical symptoms do worsen or reoccur. Abnormal Labs 02/07/25 02/07/25 02/07/25 10:18 15:23 21:01 WBC MCHC Immature Gran # Neutrophils # Eosinophils # Chloride Glucose POC Glucose (mg/dL) 120 H 138 H Hemoglobin A1c Alkaline Phosphatase HDL Cholesterol Urine Glucose (UA) Urine Opiates Screen Positive A Urine Cocaine Screen Positive A 02/08/25 02/08/25 02/08/25 07:49 17:04 17:13 WBC MCHC Immature Gran # Neutrophils # Eosinophils # Chloride Glucose POC Glucose (mg/dL) 139 H 139 H Hemoglobin A1c Alkaline Phosphatase HDL Cholesterol Urine Glucose (UA) 4+ H Urine Opiates Screen Urine Cocaine Screen 02/09/25 02/09/25 02/09/25 07:26 07:26 07:26 WBC 12.23 H MCHC 31.1 L Immature Gran # 0.05 H Neutrophils # 8.38 H Eosinophils # 0.70 H Chloride 109 H Glucose 127 H POC Glucose (mg/dL) Hemoglobin A1c 7.1 H Alkaline Phosphatase 152 H HDL Cholesterol 37.00 L Urine Glucose (UA) Urine Opiates Screen Urine Cocaine Screen 02/09/25 02/09/25 02/09/25 07:38 12:34 20:06 WBC MCHC Immature Gran # Neutrophils # Eosinophils # Chloride Glucose POC Glucose (mg/dL) 126 H 117 H 137 H Hemoglobin A1c Alkaline Phosphatase HDL Cholesterol Urine Glucose (UA) Urine Opiates Screen Urine Cocaine Screen 02/10/25 02/10/25 02/10/25 07:40 12:32 17:40 WBC MCHC Immature Gran # Neutrophils # Eosinophils # Chloride Glucose POC Glucose (mg/dL) 150 H 115 H 131 H Hemoglobin A1c Alkaline Phosphatase HDL Cholesterol Urine Glucose (UA) Urine Opiates Screen Urine Cocaine Screen 02/10/25 02/11/25 02/11/25 21:26 07:52 12:34 WBC MCHC Immature Gran # Neutrophils # Eosinophils # Chloride Glucose POC Glucose (mg/dL) 145 H 117 H 114 H Hemoglobin A1c Alkaline Phosphatase HDL Cholesterol Urine Glucose (UA) Urine Opiates Screen Urine Cocaine Screen 02/11/25 02/12/25 21:17 12:34 WBC MCHC Immature Gran # Neutrophils # Eosinophils # Chloride Glucose POC Glucose (mg/dL) 164 H 144 H Hemoglobin A1c Alkaline Phosphatase HDL Cholesterol Urine Glucose (UA) Urine Opiates Screen Urine Cocaine Screen Allergies Allergy/AdvReac Type Severity Reaction Status Date / Time Iodinated Contrast Media Allergy Anaphylaxis Verified 02/07/25 18:02 [Iodinated Contrast Media - IV Dye] lacosamide [From Vimpat] Allergy Anaphylaxis Verified 02/07/25 18:02 peanut Allergy Anaphylaxis Verified 02/07/25 18:02 Penicillins Allergy Anaphylaxis Verified 02/07/25 18:02 shellfish derived Allergy swelling Verified 02/07/25 18:02 all over body cephalexin monohydrate AdvReac Rash, Verified 02/07/25 18:02 [From Keflex] Nausea, Vomiting & Diarrhea morphine AdvReac Unknown Verified 02/07/25 18:02 trazodone AdvReac bp Verified 02/07/25 18:02 issues/dizziness Vital Signs Temp 96.8 F L 02/12/25 09:00 Pulse 101 H 02/12/25 09:00 Resp 18 02/11/25 21:00 BP 97/63 02/12/25 09:00 Pulse Ox 100 02/12/25 09:00 FiO2 Intake & Output 02/11/25 02/12/25 02/12/25 18:59 06:59 18:59 Weight 118 kg Patient Condition at Discharge: Stable Plan - Discharge Summary Discharge Rx Participant: Yes New Discharge Prescriptions: New INSULIN LISPRO (HumaLOG) [HumaLOG] 0 unit SQ ACHS each Baclofen [Lioresal] 5 mg PO BID PRN 30 Days #30 tab PRN Reason: Muscle Spasm Nystatin 100,000 Unit/gm Powd [Mycostatin Powder] 1 applic TOPICAL BID each Continue Haloperidol Decanoate 50 mg IM Q28D Albuterol Inhaler [Ventolin Hfa Inhaler] 2 puff INHALATION RT-Q6H PRN PRN Reason: Shortness Of Breath Budesonide/Formoterol Fumarate [Symbicort 80-4.5 Mcg Inhaler] 2 puff INHALATION DIRECTED Naltrexone Microspheres [Vivitrol] 380 mg SQ Q28D Aspirin EC [Ecotrin Low Dose] 81 mg PO DAILY 30 Days #30 tab Pantoprazole [Protonix] 40 mg PO DAILY Spironolactone [Aldactone] 25 mg PO DAILY 30 Days #30 tab hydrOXYzine HCL [Atarax] 25 mg PO BID PRN 30 Days #60 tab PRN Reason: Anxiety busPIRone HCl [Buspar] 5 mg PO BID 30 Days #60 tab Divalproex ER [Depakote ER] 500 mg PO HS 30 Days #30 tab Dapagliflozin Propanediol [Farxiga] 10 mg PO DAILY 30 Days #30 tab metFORMIN HCL [Glucophage] 1,000 mg PO BID-W/MEALS 30 Days #120 tab Atorvastatin [Lipitor] 40 mg PO HS 30 Days #30 tab Discontinued Trigels-F Forte (Ferrous Fum-Vit C-Vit B12-Fa) 460-60-0.01-1 Mg 1 cap PO DAILY Ondansetron Odt [Zofran ODT] 4 mg PO Q8H PRN PRN Reason: Nausea Discharge Medication List Albuterol Inhaler [Ventolin Hfa Inhaler] 2 puff INHALATION RT-Q6H PRN 01/13/25 [History] Budesonide/Formoterol Fumarate [Symbicort 80-4.5 Mcg Inhaler] 2 puff INHALATION DIRECTED 01/13/25 [History] Haloperidol Decanoate 50 mg IM Q28D 01/13/25 [History] Pantoprazole [Protonix] 40 mg PO DAILY 01/30/25 [History] Naltrexone Microspheres [Vivitrol] 380 mg SQ Q28D 02/07/25 [History] Aspirin EC [Ecotrin Low Dose] 81 mg PO DAILY 30 Days #30 tab 02/12/25 [Rx] Atorvastatin [Lipitor] 40 mg PO HS 30 Days #30 tab 02/12/25 [Rx] Baclofen [Lioresal] 5 mg PO BID PRN 30 Days #30 tab 02/12/25 [Rx] Dapagliflozin Propanediol [Farxiga] 10 mg PO DAILY 30 Days #30 tab 02/12/25 [Rx] Divalproex ER [Depakote ER] 500 mg PO HS 30 Days #30 tab 02/12/25 [Rx] INSULIN LISPRO (HumaLOG) [HumaLOG] 0 unit SQ ACHS each 02/12/25 [Rx] Nystatin 100,000 Unit/gm Powd [Mycostatin Powder] 1 applic TOPICAL BID each 02/12/25 [Rx] Spironolactone [Aldactone] 25 mg PO DAILY 30 Days #30 tab 02/12/25 [Rx] busPIRone HCl [Buspar] 5 mg PO BID 30 Days #60 tab 02/12/25 [Rx] hydrOXYzine HCL [Atarax] 25 mg PO BID PRN 30 Days #60 tab 02/12/25 [Rx] metFORMIN HCL [Glucophage] 1,000 mg PO BID-W/MEALS 30 Days #120 tab 02/12/25 [Rx] Follow up Appointment(s)/Referral(s): [facility] [Outside] - 02/16/25 2:00 pm (02/16/2025 2:00PM - 3:00PM BETTY COLLIER 02/21/2025 10:30AM - 11:00AM CLYDE ROSAS ) [facility] [REFERRING] - 1 Week Patient Instructions/Handouts: Cocaine Abuse (DC), Depression (DC), Borderline Personality Disorder (DC) Activity/Diet/Wound Care/Special Instructions: [facility] Discharge Info Avoid the use of street drugs and alcohol. Take all medications as prescribed. When you are in need of refills on your medications, please contact your outpatient medical provider and/or outpatient psychiatrist. Please go to your scheduled outpatient appointments for aftercare treatment. If symptoms return or become worse, call the crisis line at or and/or visit the nearest emergency room for assistance. National Suicide and Crisis Lifeline - call or text 179. Discharge Disposition: HOME SELF-CARE
== END 2025-02-12 12:42 | disposition home or self-care (01) | DRG 761 ==
LOC: EC 09:17 → 3MHU 18:00
PROVIDERS: ADMIT Psychiatry & Neurology Psychiatry; ATTEND Psychiatry & Neurology Psychiatry
DX: F25.9 Schizoaffective disorder, unspecified (principal); D57.3 Sickle-cell trait; E11.65 Type 2 diabetes mellitus with hyperglycemia; E66.01 Morbid (severe) obesity due to excess calories; F15.90 Other stimulant use, unspecified, uncomplicated; F31.9 Bipolar disorder, unspecified; F41.9 Anxiety disorder, unspecified; F60.3 Borderline personality disorder; G40.909 Epilepsy, unspecified, not intractable, without status epilepticus; I11.0 Hypertensive heart disease with heart failure; I50.9 Heart failure, unspecified; J44.89 Other specified chronic obstructive pulmonary disease; K50.90 Crohn's disease, unspecified, without complications; K51.90 Ulcerative colitis, unspecified, without complications; K74.60 Unspecified cirrhosis of liver; M41.9 Scoliosis, unspecified; M79.7 Fibromyalgia; R45.851 Suicidal ideations; Z59.00 Homelessness unspecified; Z68.41 Body mass index [BMI] 40.0-44.9, adult; Z79.51 Long term (current) use of inhaled steroids; Z79.82 Long term (current) use of aspirin; Z79.84 Long term (current) use of oral hypoglycemic drugs; Z79.899 Other long term (current) drug therapy; Z86.32 Personal history of gestational diabetes; Z87.891 Personal history of nicotine dependence; Z90.721 Acquired absence of ovaries, unilateral; Z91.51 Personal history of suicidal behavior; Z11.52 Encounter for screening for COVID-19
CPT/HCPCS: 36415; 80053; 80061; 80164; 80306; 81003; 81025; 82075; 83036; 84443; 85025; 87636; 87651; 99285

== ENCOUNTER 2025-02-19 13:20 | Emergency (ER) | payer OTHER ==
[2025-02-19 13:24] VITALS: BP 140/77; PULSE 62; RESP 18; TEMP 97.8
--- NOTE | 2025-02-19 13:54 | ED ---
General Adult HPI - General Chief complaint: Recheck/Abnormal Lab/Rx Stated complaint: Medication issue Time Seen by Provider: 02/19/25 13:35 Source: patient, RN notes reviewed, old records reviewed Mode of arrival: ambulatory Limitations: no limitations - History of Present Illness Initial comments: 44-year-old female who presents emergency department for medication refill. Does not have any of her normal prescriptions. No longer has a PCP. Presents with her new retirement that she is staying with. They have a list of her medications that need refill. She follows up with her psychiatrist in 1 or 2 days and he can refill those. I will refill her other medications. She is also states she is anxious. I will provide her with a short course of Ativan for home. She was in agreement this plan. She has no other acute complaints at this time. - Related Data Home Medications Medication Instructions Recorded Confirmed Albuterol Inhaler [Ventolin Hfa 2 puff INHALATION RT-Q6H PRN 01/13/25 02/07/25 Inhaler] Budesonide/Formoterol Fumarate 2 puff INHALATION DIRECTED 01/13/25 02/07/25 [Symbicort 80-4.5 Mcg Inhaler] Haloperidol Decanoate 50 mg IM Q28D 01/13/25 02/07/25 Pantoprazole [Protonix] 40 mg PO DAILY 01/30/25 02/07/25 Naltrexone Microspheres [Vivitrol] 380 mg SQ Q28D 02/07/25 02/07/25 Previous Rx's Medication Instructions Recorded Aspirin EC [Ecotrin Low Dose] 81 mg PO DAILY 30 Days #30 tab 02/12/25 Atorvastatin [Lipitor] 40 mg PO HS 30 Days #30 tab 02/12/25 Baclofen [Lioresal] 5 mg PO BID PRN 30 Days #30 tab 02/12/25 Dapagliflozin Propanediol [Farxiga] 10 mg PO DAILY 30 Days #30 tab 02/12/25 Divalproex ER [Depakote ER] 500 mg PO HS 30 Days #30 tab 02/12/25 INSULIN LISPRO (HumaLOG) [HumaLOG] 0 unit SQ ACHS each 02/12/25 Nystatin 100,000 Unit/gm Powd 1 applic TOPICAL BID each 02/12/25 [Mycostatin Powder] Spironolactone [Aldactone] 25 mg PO DAILY 30 Days #30 tab 02/12/25 busPIRone HCl [Buspar] 5 mg PO BID 30 Days #60 tab 02/12/25 hydrOXYzine HCL [Atarax] 25 mg PO BID PRN 30 Days #60 tab 02/12/25 metFORMIN HCL [Glucophage] 1,000 mg PO BID-W/MEALS 30 Days 02/12/25 #120 tab Aspirin [Adult Low Dose Aspirin EC] 81 mg PO DAILY 30 Days #30 tab 02/19/25 Atorvastatin [Lipitor] 40 mg PO HS 30 Days #30 tablet 02/19/25 Dapagliflozin Propanediol [Farxiga] 10 mg PO DAILY 30 Days #30 tablet 02/19/25 LORazepam [Ativan] 0.5 mg PO HS PRN 6 Days #6 tab 02/19/25 Spironolactone [Aldactone] 25 mg PO DAILY 30 Days #30 tablet 02/19/25 metFORMIN HCL 1,000 mg PO BID 30 Days #60 tab 02/19/25 Allergies Allergy/AdvReac Type Severity Reaction Status Date / Time Iodinated Contrast Media Allergy Anaphylaxis Verified 02/19/25 13:24 [Iodinated Contrast Media - IV Dye] lacosamide [From Vimpat] Allergy Anaphylaxis Verified 02/19/25 13:24 peanut Allergy Anaphylaxis Verified 02/19/25 13:24 Penicillins Allergy Anaphylaxis Verified 02/19/25 13:24 shellfish derived Allergy swelling Verified 02/19/25 13:24 all over body cephalexin monohydrate AdvReac Rash, Verified 02/19/25 13:24 [From Keflex] Nausea, Vomiting & Diarrhea morphine AdvReac Unknown Verified 02/19/25 13:24 trazodone AdvReac bp Verified 02/19/25 13:24 issues/dizziness Review of Systems ROS Statement: Those systems with pertinent positive or pertinent negative responses have been documented in the HPI. Review of Systems: CONST: Denies fever EYES: Denies blurry vision ENT: Denies nasal congestion C/V: Denies Chest pain RESP: Denies shortness of breath GI: Denies abdominal pain : Denies dysuria SKIN: Denies rash. MSK: Denies joint pain. NEURO: Denies headache ROS Other: All systems not noted in ROS Statement are negative. Past Medical History Past Medical History: Asthma, Heart Failure, COPD, Diabetes Mellitus, Fibromyalgia, GERD/Reflux, GI Bleed, Hypertension, Liver Disease, Osteoarthritis (OA), Pneumonia, Seizure Disorder, Skin Disorder Additional Past Medical History / Comment(s): Bronchitis, gestational diabetes, seizures with last one 01/2024, sickle cell trait, liver cirrhosis, anemia, chrons, IBS, ulcerative colitis, lowr GI bleed, hemorrhoids, constipation, psoriasis, migraines, chronic low back and cervical pain, scoliosis, arhtritis in multiple joints, gout bilateral feet, History of Any Multi-Drug Resistant Organisms: None Reported Past Surgical History: Cholecystectomy, Orthopedic Surgery Additional Past Surgical History / Comment(s): L oophorectomy d/t cyst, D&C, colonoscopy, L carpal tunnel release, Past Anesthesia/Blood Transfusion Reactions: Motion Sickness, Postoperative Nausea & Vomiting (PONV) Past Psychological History: Anxiety, Bipolar, Depression, Schizophrenia Smoking Status: Former smoker Past Alcohol Use History: None Reported Past Drug Use History: Cocaine, Marijuana - Past Family History Mother History Unknown: Yes Family Medical History: Cancer Additional Family Medical History / Comment(s): Mother had breast cancer and metnal illness She is living. Father Family Medical History: Cancer Additional Family Medical History / Comment(s): Father is . He had agent orange exposure. He had liver cancer, bowel to brain cancer. General Exam - General Exam Comments Initial Comments: General: Appears mildly anxious. HEAD: Normal with no signs of head trauma. EYES: EOMI. ENT: Hearing grossly intact. RESPIRATORY: No respiratory distress. C/V: Regular rate and rhythm. ABD: Abdomen is nondistended. EXT: No obvious deformity. SKIN: No rashes or lesions observed on exposed skin. NEURO: Alert and oriented. Limitations: no limitations Course Vital Signs 02/19/25 13:21 Temperature 97.8 F Pulse Rate 62 Respiratory 18 Rate Blood Pressure 140/77 O2 Sat by Pulse 98 Oximetry Medical Decision Making - Medical Decision Making Was pt. sent in by a medical professional or institution (, PA, BUFFING AND SUEDING MACHINE OPERATOR, urgent care, hospital, or alf...) When possible be specific @ -No Did you speak to anyone other than the patient for history (EMS, parent, family, police, friend...)? What history was obtained from this source @ -No Did you review nursing and triage notes (agree or disagree)? Why? @ -I reviewed and agree with nursing and triage notes Were old charts reviewed (outside hosp., previous admission, EMS record, old EKG, old radiological studies, urgent care reports/EKG's, alf records)? Report findings @ -No old charts were reviewed Differential Diagnosis (chest pain, altered mental status, abdominal pain women, abdominal pain men, vaginal bleeding, weakness, fever, dyspnea, syncope, headache, dizziness, GI bleed, back pain, seizure, CVA, palpatations, mental health, musculoskeletal)? @ -Medication refill, anxiety, medication noncompliance. This list is not all- inclusive. EKG interpreted by me (3pts min.). @ -None none X-rays interpreted by me (1pt min.). @ -None done CT interpreted by me (1pt min.). @ -None done U/S interpreted by me (1pt. min.). @ -None done What testing was considered but not performed or refused? (CT, X-rays, U/S, labs)? Why? @ -None What meds were considered but not given or refused? Why? @ -None Did you discuss the management of the patient with other professionals (professionals i.e. , PA, BUFFING AND SUEDING MACHINE OPERATOR, lab, RT, psych nurse, social services specialist, admiralty lawyer, teacher, public affairs officer, case resource manager)? Give summary @ -No Was smoking cessation discussed for >3mins.? @ -No Was critical care preformed (if so, how long)? @ -No Were there social determinants of health that impacted care today? How? (Homelessness, low income, unemployed, alcoholism, drug addiction, transportation, low edu. Level, literacy, decrease access to med. care, assisted, rehab)? @ -No Was there de-escalation of care discussed even if they declined (Discuss DNR or withdrawal of care, Hospice)? DNR status @ -No What co-morbidities impacted this encounter? (DM, HTN, Smoking, COPD, CAD, Cancer, CVA, ARF, Chemo, Hep., AIDS, mental health diagnosis, sleep apnea, morbid obesity)? @ -None Was patient admitted / discharged? Hospital course, mention meds given and route, prescriptions, significant lab abnormalities, going to OR and other pertinent info. @ -Patient presents for medication refill. Has missed too many appointments with her PCP and is running out of her normal medications. Sees her psychiatrist in a few days who can refill her buspirone, Depakote, Atarax. They are requesting refill on everything else. This will be provided. She states she is currently anxious and is asking for a short course of Ativan. This will be provided. She will given a dose prior to discharge. Patient was in agreement this plan. No other workup indicated at this time. She be discharged home at this time. I instructed the patient to follow up with their PCP in the next 1-3 days. I explained that the patient should return to the emergency department if they experience any worsening symptoms. Strict return precautions were discussed with the patient. The patient expressed understanding of these instructions. I answered all questions that the patient had. The patient was discharged home in good condition with their prescriptions and follow up information. Undiagnosed new problem with uncertain prognosis? @ -No Drug Therapy requiring intensive monitoring for toxicity (Heparin, Nitro, Insulin, Cardizem)? @ -No Were any procedures done? @ -No Diagnosis/symptom? @ -Medication refill, anxiety Acute, or Chronic, or Acute on Chronic? @ -Acute Uncomplicated (without systemic symptoms) or Complicated (systemic symptoms)? @ -Uncomplicated Side effects of treatment? @ -No Exacerbation, Progression, or Severe Exacerbation? @ -No Poses a threat to life or bodily function? How? (Chest pain, USA, MA, pneumonia, PE, COPD, DKA, ARF, appy, cholecystitis, CVA, Diverticulitis, Homicidal, Suicidal, threat to staff... and all critical care pts) @ -Unlikely at this time Disposition Clinical Impression: Medication refill, Anxiety Disposition: HOME SELF-CARE Condition: Good Prescriptions: Aspirin [Adult Low Dose Aspirin EC] 81 mg PO DAILY 30 Days #30 tab Spironolactone [Aldactone] 25 mg PO DAILY 30 Days #30 tablet LORazepam [Ativan] 0.5 mg PO HS PRN 6 Days #6 tab PRN Reason: Anxiety Dapagliflozin Propanediol [Farxiga] 10 mg PO DAILY 30 Days #30 tablet Atorvastatin [Lipitor] 40 mg PO HS 30 Days #30 tablet metFORMIN HCL 1,000 mg PO BID 30 Days #60 tab Is patient prescribed a controlled substance at d/c from ED?: No Referrals: None,Stated [Primary Care Provider] - 1-2 days Forms: PH Area PCPs Time of Disposition: 13:54
[2025-02-19] MEDS: LORazepam 0.5 MG TAB PO STA (14:00)
== END 2025-02-19 14:00 | disposition home or self-care (01) ==
LOC: EC 13:20
DX: F41.9 Anxiety disorder, unspecified (principal); Z76.0 Encounter for issue of repeat prescription; Z87.891 Personal history of nicotine dependence; Z88.5 Allergy status to narcotic agent; Z88.0 Allergy status to penicillin; Z91.010 Allergy to peanuts; Z91.013 Allergy to seafood; Z91.041 Radiographic dye allergy status; Z88.8 Allergy status to other drugs, medicaments and biological substances
CPT/HCPCS: 99281

== ENCOUNTER 2025-02-21 15:40 | Emergency (ER) | payer OTHER ==
[2025-02-21 15:45] VITALS: TEMP 98
--- NOTE | 2025-02-21 15:50 | ED ---
Chest Pain HPI - General Chief Complaint: Chest Pain Stated Complaint: Chest pain Time Seen by Provider: 02/21/25 15:41 Source: patient, EMS, RN notes reviewed, old records reviewed Mode of arrival: EMS Limitations: no limitations - History of Present Illness Initial Comments: This is a 44 female to the ER today. Today this chest pain chest pain that o ccurred after smoking crack cocaine. Patient states she did smoke or crack cocaine in usual state feels like her heart is racing and her chest feels sweaty. Of breath with severe chest pain MD Complaint: chest pain -: hour(s) Onset: during rest, associated with drug use Pain Location: substernal, left chest Pain Radiation: none Severity: severe Severity scale (1-10): 8 Quality: tightness, heaviness Consistency: constant Improves With: nothing Worsens With: nothing Context: new medications Anginal Symptoms: sense of impending doom Other Symptoms: palpitations Treatments Prior to Arrival: none - Related Data Home Medications Medication Instructions Recorded Confirmed Albuterol Inhaler [Ventolin Hfa 2 puff INHALATION RT-Q6H PRN 01/13/25 02/07/25 Inhaler] Budesonide/Formoterol Fumarate 2 puff INHALATION DIRECTED 01/13/25 02/07/25 [Symbicort 80-4.5 Mcg Inhaler] Haloperidol Decanoate 50 mg IM Q28D 01/13/25 02/07/25 Pantoprazole [Protonix] 40 mg PO DAILY 01/30/25 02/07/25 Naltrexone Microspheres [Vivitrol] 380 mg SQ Q28D 02/07/25 02/07/25 Previous Rx's Medication Instructions Recorded Aspirin EC [Ecotrin Low Dose] 81 mg PO DAILY 30 Days #30 tab 02/12/25 Atorvastatin [Lipitor] 40 mg PO HS 30 Days #30 tab 02/12/25 Baclofen [Lioresal] 5 mg PO BID PRN 30 Days #30 tab 02/12/25 Dapagliflozin Propanediol [Farxiga] 10 mg PO DAILY 30 Days #30 tab 02/12/25 Divalproex ER [Depakote ER] 500 mg PO HS 30 Days #30 tab 02/12/25 INSULIN LISPRO (HumaLOG) [HumaLOG] 0 unit SQ ACHS each 02/12/25 Nystatin 100,000 Unit/gm Powd 1 applic TOPICAL BID each 02/12/25 [Mycostatin Powder] Spironolactone [Aldactone] 25 mg PO DAILY 30 Days #30 tab 02/12/25 busPIRone HCl [Buspar] 5 mg PO BID 30 Days #60 tab 02/12/25 hydrOXYzine HCL [Atarax] 25 mg PO BID PRN 30 Days #60 tab 02/12/25 metFORMIN HCL [Glucophage] 1,000 mg PO BID-W/MEALS 30 Days 02/12/25 #120 tab Aspirin [Adult Low Dose Aspirin EC] 81 mg PO DAILY 30 Days #30 tab 02/19/25 Atorvastatin [Lipitor] 40 mg PO HS 30 Days #30 tablet 02/19/25 Dapagliflozin Propanediol [Farxiga] 10 mg PO DAILY 30 Days #30 tablet 02/19/25 LORazepam [Ativan] 0.5 mg PO HS PRN 6 Days #6 tab 02/19/25 Spironolactone [Aldactone] 25 mg PO DAILY 30 Days #30 tablet 02/19/25 metFORMIN HCL 1,000 mg PO BID 30 Days #60 tab 02/19/25 Allergies Allergy/AdvReac Type Severity Reaction Status Date / Time Iodinated Contrast Media Allergy Anaphylaxis Verified 02/21/25 15:44 [Iodinated Contrast Media - IV Dye] lacosamide [From Vimpat] Allergy Anaphylaxis Verified 02/21/25 15:44 peanut Allergy Anaphylaxis Verified 02/21/25 15:44 Penicillins Allergy Anaphylaxis Verified 02/21/25 15:44 shellfish derived Allergy swelling Verified 02/21/25 15:44 all over body cephalexin monohydrate AdvReac Rash, Verified 02/21/25 15:44 [From Keflex] Nausea, Vomiting & Diarrhea morphine AdvReac Unknown Verified 02/21/25 15:44 trazodone AdvReac bp Verified 02/21/25 15:44 issues/dizziness Review of Systems ROS Statement: Those systems with pertinent positive or pertinent negative responses have been documented in the HPI. ROS Other: All systems not noted in ROS Statement are negative. EKG Findings - EKG Comments: EKG Findings:: EKG sinus tachycardia 115 VA 153 QRS 147 QTc 433 - EKG Results: EKG: interpreted by TY Past Medical History Past Medical History: Asthma, Heart Failure, COPD, Diabetes Mellitus, Fibromyalgia, GERD/Reflux, GI Bleed, Hypertension, Liver Disease, Osteoarthritis (OA), Pneumonia, Seizure Disorder, Skin Disorder Additional Past Medical History / Comment(s): Bronchitis, gestational diabetes, seizures with last one 01/2024, sickle cell trait, liver cirrhosis, anemia, chrons, IBS, ulcerative colitis, lowr GI bleed, hemorrhoids, constipation, psoriasis, migraines, chronic low back and cervical pain, scoliosis, arhtritis in multiple joints, gout bilateral feet, History of Any Multi-Drug Resistant Organisms: None Reported Past Surgical History: Cholecystectomy, Orthopedic Surgery Additional Past Surgical History / Comment(s): L oophorectomy d/t cyst, D&C, colonoscopy, L carpal tunnel release, Past Anesthesia/Blood Transfusion Reactions: Motion Sickness, Postoperative Nausea & Vomiting (PONV) Past Psychological History: Anxiety, Bipolar, Depression, Schizophrenia Smoking Status: Former smoker Past Alcohol Use History: None Reported Past Drug Use History: Cocaine, Marijuana - Past Family History Mother History Unknown: Yes Family Medical History: Cancer Additional Family Medical History / Comment(s): Mother had breast cancer and metnal illness She is living. Father Family Medical History: Cancer Additional Family Medical History / Comment(s): Father is . He had agent orange exposure. He had liver cancer, bowel to brain cancer. General Exam General appearance: alert, in no apparent distress, anxious Head exam: Present: atraumatic, normocephalic, normal inspection Eye exam: Present: normal appearance, PERRL, EOMI. Absent: scleral icterus, c onjunctival injection, periorbital swelling ENT exam: Present: normal exam, mucous membranes moist Neck exam: Present: normal inspection. Absent: tenderness, meningismus, lymphadenopathy Respiratory exam: Present: normal lung sounds bilaterally. Absent: respiratory distress, wheezes, rales, rhonchi, stridor Cardiovascular Exam: Present: normal rhythm, tachycardia, normal heart sounds. Absent: systolic murmur, diastolic murmur, rubs, gallop, clicks GI/Abdominal exam: Present: soft, normal bowel sounds. Absent: distended, tenderness, guarding, rebound, rigid Extremities exam: Present: normal inspection, full ROM, normal capillary refill. Absent: tenderness, pedal edema, joint swelling, calf tenderness Back exam: Present: normal inspection Neurological exam: Present: alert, oriented X3, CN II-XII intact Psychiatric exam: Present: normal affect, normal mood Skin exam: Present: warm, dry, intact, normal color. Absent: rash Course Vital Signs 02/21/25 02/21/25 02/21/25 15:42 17:59 18:28 Temperature 98.0 F 98.0 F Pulse Rate 112 H 90 80 Respiratory 22 18 18 Rate Blood Pressure 117/54 122/70 112/76 O2 Sat by Pulse 96 97 97 Oximetry - Reevaluation(s) Reevaluation #1: 02/21/25 16:26 Medical records review Reevaluation #2: 02/21/25 17:54 Patient's chest pain is improved here in the ER Reevaluation #3: 02/21/25 17:54 Patient informed of results questions answered Reevaluation #4: Was pt. sent in by a medical professional or institution ([facility] Ramirez, AUTOCAD OPERATOR, urgent care, hospital, or half-way...) When possible be specific @ -no Did you speak to anyone other than the patient for history (EMS, parent, family, police, friend...)? What history was obtained from this source @ -no Did you review nursing and triage notes (agree or disagree)? Why? @ -agree Are old charts reviewed (outside hosp., previous admission, EMS record, old EKG, old radiological studies, urgent care reports/EKG's, half-way records)? Report findings @ -yes Differential Diagnosis (chest pain, altered mental status, abdominal pain women, abdominal pain men, vaginal bleeding, weakness, fever, dyspnea, syncope, headache, dizziness, GI bleed, back pain, seizure, CVA, palpatations, mental health, musculoskeletal)? @ -prior EKG interpreted by me (3pts min.). @ -yes X-rays interpreted by me (1pt min.). @ -yes negative for acute disease CT interpreted by me (1pt min.). @ -no U/S interpreted by me (1pt. min.). @ -no What testing was considered but not performed or refused? (CT, X-rays, U/S, labs)? Why? @ -none What meds were considered but not given or refused? Why? @ -none Did you discuss the management of the patient with other professionals (professionals i.e. , [facility], AUTOCAD OPERATOR, lab, RT, psych nurse, social work assistant, ebd teacher, teacher, property and supply officer, case consultant)? Give summary @ -no Was smoking cessation discussed for >3mins.? @ -no Was critical care preformed (if so, how long)? @ -no Were there social determinants of health that impacted care today? How? (Homelessness, low income, unemployed, alcoholism, drug addiction, transportation, low edu. Level, literacy, decrease access to med. care, shelter, rehab)? @ -none Was there de-escalation of care discussed even if they declined (Discuss DNR or withdrawal of care, Hospice)? DNR status @ -no What co-morbidities impacted this encounter? (DM, HTN, Smoking, COPD, CAD, Cancer, CVA, ARF, Chemo, Hep., AIDS, mental health diagnosis, sleep apnea, morbid obesity)? @ -none Was patient admitted / discharged? Hospital course, mention meds given and route, prescriptions, significant lab abnormalities, going to OR and other pertinent info. @ - 44 female with cocaine induced chest pain, no elevation of troponin heart rate is improved patient resting comfortably and can be discharged home Discharge Undiagnosed new problem with uncertain prognosis? @ -no Drug Therapy requiring intensive monitoring for toxicity (Heparin, Nitro, Insulin, Cardizem)? @ -no Were any procedures done? @ -no Diagnosis/symptom? @ -Cocaine abuse and drug abuse Acute, or Chronic, or Acute on Chronic? @ -Acute Uncomplicated (without systemic symptoms) or Complicated (systemic symptoms)? @ -Complicated Side effects of treatment? @ -no Exacerbation, Progression, or Severe Exacerbation? @ -exacerbation Poses a threat to life or bodily function? How? (Chest pain, [place], [place], pneumonia, PE, COPD, DKA, ARF, appy, cholecystitis, CVA, Diverticulitis, Homicidal, Suicidal, threat to staff... and all critical care pts) @ -yes with chest pain Reevaluation #5: Differential Chest Pain: Stable Angina, Unstable Angina, STEMI, NSTEMI Aortic Dissection, Pneumothorax, Musculoskeletal, Esophageal Spasm GERD, Cholecystitis, Pancreatitis, Zoster, this is not meant to be an all-inclusive list. Chest Pain MDM - MDM 44 female with cocaine induced chest pain, no elevation of troponin heart rate is improved patient resting comfortably and can be discharged home Disposition Clinical Impression: Atypical chest pain, Cocaine-induced vascular disorder Disposition: HOME SELF-CARE Condition: Fair Instructions (If sedation given, give patient instructions): Chest Pain (ED) Is patient prescribed a controlled substance at d/c from ED?: No Referrals: None,Stated [Primary Care Provider] - 1-2 days Time of Disposition: 15:30
[2025-02-21] MEDS: ONDANSETRON 4 MG/2 ML VIAL IVP STA (16:01)
[2025-02-21] MEDS: LORazepam 1 MG/0.5 ML VIAL IV STA (16:01)
[2025-02-21] MEDS: NITROGLYCERIN SL TABS 0.4 MG TAB SUBLINGUAL STA (16:04)
[2025-02-21] MEDS: NITROGLYCERIN OINT 1 INCH/GM PACKET TOPICAL STA (16:06)
[2025-02-21] MEDS: SODIUM CHLORIDE 0.9% 1,000 ML IV STA (16:06)
[2025-02-21 16:21] LABS: Basophils # (A) 0.08 10*3/uL (0.00-0.10); Basophils % (A) 0.4 %; Eosinophils # (A) 0.55 10*3/uL (0.04-0.35); Eosinophils % (A) 3.0 %; HCT 46.0 % (37.2-46.3); HGB 14.9 g/dL (12.0-15.0); Lymphocytes # (A) 2.24 10*3/uL (0.90-5.00); Lymphocytes % (A) 12.4 %; MCH 27.2 pg (27.0-32.0); MCHC 32.4 g/dL (32.0-37.0); MCV 83.9 fL (80.0-97.0); Monocytes # (A) 1.02 10*3/uL (0.20-1.00); Monocytes % (A) 5.6 %; Neutrophils # (A) 13.95 10*3/uL (1.80-7.70); Neutrophils % (A) 77.3 %; Platelet Count 304 10*3/uL (140-440); RBC 5.48 10*6/uL (4.10-5.20); RDW 14.6 % (11.5-14.5); WBC 18.07 10*3/uL (4.50-10.00)
[2025-02-21 16:35] LABS: INR 0.9 (<1.2); Partial Thromboplastin Time 23.5 sec (22.0-30.0); Prothrombin Time 10.3 sec (10.0-12.5)
--- NOTE | 2025-02-21 16:35 | XR ---
EXAMINATION TYPE: XR chest 2V DATE OF EXAM: 02/21/2025 4:25 PM COMPARISON: 01/27/2025 CLINICAL INDICATION: Female, 44 years old with history of Chest Pain, TECHNIQUE: XR chest 2V view(s) obtained. FINDINGS: The heart size is normal. The pulmonary vasculature is normal. The lungs are clear. IMPRESSION: 1. No acute pulmonary process. [facility], Workstation: [facility], 02/21/2025 4:32 PM
[2025-02-21 16:36] LABS: ALT 20 U/L (4-34); AST 25 U/L (14-36); African American GFR (CKD) 72 (>60 ml/min/1.73 sqM); Albumin 4.7 g/dL (3.5-5.0); Alkaline Phosphatase 168 U/L (38-126); Anion Gap 16 mmol/L; Blood Urea Nitrogen 21 mg/dL (7-17); Calcium 9.9 mg/dL (8.4-10.2); Carbon Dioxide 21 mmol/L (22-30); Chloride 101 mmol/L (98-107); Glucose 210 mg/dL (74-99); Lipase 157 U/L (23-300); Magnesium 1.6 mg/dL (1.6-2.3); Non-African American GFR(CKD) 62 (>60 ml/min/1.73 sqM); Potassium 4.7 mmol/L (3.5-5.1); Sodium 138 mmol/L (137-145); Total Protein 8.7 g/dL (6.3-8.2)
[2025-02-21 18:00] VITALS: RESP 18
[2025-02-21] MEDS: HYDROmorphone 0.5 MG/0.5 ML SYRINGE IVP STA (18:24)
[2025-02-21 18:31] VITALS: BP 112/76; PULSE 80
== END 2025-02-21 18:28 | disposition home or self-care (01) ==
LOC: EC 15:40
DX: R07.89 Other chest pain (principal); F14.20 Cocaine dependence, uncomplicated; Z87.891 Personal history of nicotine dependence; Z88.0 Allergy status to penicillin; Z88.1 Allergy status to other antibiotic agents; Z88.5 Allergy status to narcotic agent; Z91.010 Allergy to peanuts; Z91.013 Allergy to seafood; Z91.041 Radiographic dye allergy status; Z88.8 Allergy status to other drugs, medicaments and biological substances
CPT/HCPCS: 36415; 93005; 80053; 83690; 83735; 84484; 85025; 85610; 85730; 71046; 99285; 96374; 96375; 96361; J2060; J2405; J1171

== ENCOUNTER 2025-02-22 18:39 | Emergency (ER) | payer OTHER ==
[2025-02-22 19:03] VITALS: PULSE 63
--- NOTE | 2025-02-22 19:22 | ED ---
General Adult HPI - General Chief complaint: Chest Pain Stated complaint: Chest pain Time Seen by Provider: 02/22/25 19:00 Source: patient, RN notes reviewed, old records reviewed Mode of arrival: ambulatory Limitations: no limitations - History of Present Illness Initial comments: This is a 44-year-old female who presents to the emergency department stating she feels buggy all over. Patient states she also has sharp chest pain which she has had for the last few days and is in the center of her chest and is reproducible if she takes a deep breath or you press on it. Patient denies shortness of breath or difficulty breathing. Patient denies any fever chills or cough. Patient states the pain has been constant for the last few days and has not subsided. Patient states she did cocaine or methamphetamine or both yesterday. - Related Data Home Medications Medication Instructions Recorded Confirmed Albuterol Inhaler [Ventolin Hfa 2 puff INHALATION RT-Q6H PRN 01/13/25 02/07/25 Inhaler] Budesonide/Formoterol Fumarate 2 puff INHALATION DIRECTED 01/13/25 02/07/25 [Symbicort 80-4.5 Mcg Inhaler] Haloperidol Decanoate 50 mg IM Q28D 01/13/25 02/07/25 Pantoprazole [Protonix] 40 mg PO DAILY 01/30/25 02/07/25 Naltrexone Microspheres [Vivitrol] 380 mg SQ Q28D 02/07/25 02/07/25 Previous Rx's Medication Instructions Recorded Aspirin EC [Ecotrin Low Dose] 81 mg PO DAILY 30 Days #30 tab 02/12/25 Atorvastatin [Lipitor] 40 mg PO HS 30 Days #30 tab 02/12/25 Baclofen [Lioresal] 5 mg PO BID PRN 30 Days #30 tab 02/12/25 Dapagliflozin Propanediol [Farxiga] 10 mg PO DAILY 30 Days #30 tab 02/12/25 Divalproex ER [Depakote ER] 500 mg PO HS 30 Days #30 tab 02/12/25 INSULIN LISPRO (HumaLOG) [HumaLOG] 0 unit SQ ACHS each 02/12/25 Nystatin 100,000 Unit/gm Powd 1 applic TOPICAL BID each 02/12/25 [Mycostatin Powder] Spironolactone [Aldactone] 25 mg PO DAILY 30 Days #30 tab 02/12/25 busPIRone HCl [Buspar] 5 mg PO BID 30 Days #60 tab 02/12/25 hydrOXYzine HCL [Atarax] 25 mg PO BID PRN 30 Days #60 tab 02/12/25 metFORMIN HCL [Glucophage] 1,000 mg PO BID-W/MEALS 30 Days 02/12/25 #120 tab Aspirin [Adult Low Dose Aspirin EC] 81 mg PO DAILY 30 Days #30 tab 02/19/25 Atorvastatin [Lipitor] 40 mg PO HS 30 Days #30 tablet 02/19/25 Dapagliflozin Propanediol [Farxiga] 10 mg PO DAILY 30 Days #30 tablet 02/19/25 LORazepam [Ativan] 0.5 mg PO HS PRN 6 Days #6 tab 02/19/25 Spironolactone [Aldactone] 25 mg PO DAILY 30 Days #30 tablet 02/19/25 metFORMIN HCL 1,000 mg PO BID 30 Days #60 tab 02/19/25 Allergies Allergy/AdvReac Type Severity Reaction Status Date / Time Iodinated Contrast Media Allergy Anaphylaxis Verified 02/21/25 15:44 [Iodinated Contrast Media - IV Dye] lacosamide [From Vimpat] Allergy Anaphylaxis Verified 02/21/25 15:44 peanut Allergy Anaphylaxis Verified 02/21/25 15:44 Penicillins Allergy Anaphylaxis Verified 02/21/25 15:44 shellfish derived Allergy swelling Verified 02/21/25 15:44 all over body cephalexin monohydrate AdvReac Rash, Verified 02/21/25 15:44 [From Keflex] Nausea, Vomiting & Diarrhea morphine AdvReac Unknown Verified 02/21/25 15:44 trazodone AdvReac bp Verified 02/21/25 15:44 issues/dizziness Review of Systems ROS Statement: Those systems with pertinent positive or pertinent negative responses have been documented in the HPI. ROS Other: All systems not noted in ROS Statement are negative. Past Medical History Past Medical History: Asthma, Heart Failure, COPD, Diabetes Mellitus, Fibromyalgia, GERD/Reflux, GI Bleed, Hypertension, Liver Disease, Osteoarthritis (OA), Pneumonia, Seizure Disorder, Skin Disorder Additional Past Medical History / Comment(s): Bronchitis, gestational diabetes, seizures with last one 01/2024, sickle cell trait, liver cirrhosis, anemia, chrons, IBS, ulcerative colitis, lowr GI bleed, hemorrhoids, constipation, psoriasis, migraines, chronic low back and cervical pain, scoliosis, arhtritis in multiple joints, gout bilateral feet, History of Any Multi-Drug Resistant Organisms: None Reported Past Surgical History: Cholecystectomy, Orthopedic Surgery Additional Past Surgical History / Comment(s): L oophorectomy d/t cyst, D&C, colonoscopy, L carpal tunnel release, Past Anesthesia/Blood Transfusion Reactions: Motion Sickness, Postoperative Nausea & Vomiting (PONV) Past Psychological History: Anxiety, Bipolar, Depression, Schizophrenia Smoking Status: Former smoker Past Alcohol Use History: None Reported Past Drug Use History: Cocaine, Marijuana - Past Family History Mother History Unknown: Yes Family Medical History: Cancer Additional Family Medical History / Comment(s): Mother had breast cancer and metnal illness She is living. Father Family Medical History: Cancer Additional Family Medical History / Comment(s): Father is . He had agent orange exposure. He had liver cancer, bowel to brain cancer. General Exam - General Exam Comments Initial Comments: GENERAL: Patient is well-developed and well-nourished. Patient is nontoxic and well- hydrated and is in no acute distress. ENT: Neck is soft and supple. No significant lymphadenopathy is noted. Oropharynx is clear. Moist mucous membranes. Neck has full range of motion without eliciting any pain. EYES: The sclera were anicteric and conjunctiva were pink and moist. Extraocular movements were intact and pupils were equal round and reactive to light. Eyelids were unremarkable. PULMONARY: Unlabored respirations. Good breath sounds bilaterally. No audible rales rhonchi or wheezing was noted. CARDIOVASCULAR: There is a regular rate and rhythm without any murmurs gallops or rubs. Patient has anterior chest pain on palpation no bruising or area of redness ABDOMEN: Soft and nontender with normal bowel sounds. SKIN: Skin is clear with no lesions or rashes and otherwise unremarkable. NEUROLOGIC: Patient is alert and oriented x3. Cranial nerves II through XII are grossly intact. Motor and sensory are also intact. Normal speech, volume and content. Symmetrical smile. MUSCULOSKELETAL: Normal extremities with adequate strength and full range of motion. No lower extremity swelling or edema. No calf tenderness. LYMPHATICS: No significant lymphadenopathy is noted PSYCHIATRIC: Patient is demanding to stay does not want to go home and she was indicating this to me prior to me even evaluating her or getting a full history Limitations: no limitations Course Vital Signs 02/22/25 19:00 Temperature 97.4 F L Pulse Rate 63 Respiratory 17 Rate Blood Pressure 123/53 O2 Sat by Pulse 97 Oximetry Medical Decision Making - Medical Decision Making EKG is interpreted by myself and EKG shows a sinus rhythm at 62 bpm IL 169 QRS 165 QT interval is 472 QTc is 477. Patient has a right bundle branch block Second EKG was done on the patient EKG showed bradycardia cardia at 59 bpm IL interval 265 QRS 180 QT interval is 477 QTc is 476. Patient's EKG shows right bundle branch block Was pt. sent in by a medical professional or institution (CLIF Ramirez, PROGRESS CLERK, urgent care, hospital, or custodial...) When possible be specific @ -No Did you speak to anyone other than the patient for history (EMS, parent, family, police, friend...)? What history was obtained from this source @ -No Did you review nursing and triage notes (agree or disagree)? Why? @ -I reviewed and agree with nursing and triage notes Were old charts reviewed (outside hosp., previous admission, EMS record, old EKG, old radiological studies, urgent care reports/EKG's, custodial records)? Report findings @ -No old charts were reviewed Differential Diagnosis? @ -Differential Chest Pain: Stable Angina, Unstable Angina, STEMI, NSTEMI Aortic Dissection, Pneumothorax, Musculoskeletal, Esophageal Spasm GERD, Cholecystitis, Pancreatitis, Zoster, this is not meant to be an all-inclusive list. EKG interpreted by me (3pts min.). @ -As above X-rays interpreted by me (1pt min.). @ -None done CT interpreted by me (1pt min.). @ -None done U/S interpreted by me (1pt. min.). @ -None done What testing was considered but not performed or refused? (CT, X-rays, U/S, labs)? Why? @ -None What meds were considered but not given or refused? Why? @ -None Did you discuss the management of the patient with other professionals (professionals i.e. CLIF Ramirez, PROGRESS CLERK, lab, RT, psych nurse, social security specialist, senior resident care director, teacher, commercial escrow officer, case preparer and liner)? Give summary @ -No Was smoking cessation discussed for >3mins.? @ -No Was critical care preformed (if so, how long)? @ -No Were there social determinants of health that impacted care today? How? (Homelessness, low income, unemployed, alcoholism, drug addiction, transportation, low edu. Level, literacy, decrease access to med. care, shelter, rehab)? @ -No Was there de-escalation of care discussed even if they declined (Discuss DNR or withdrawal of care, Hospice)? DNR status @ -No What co-morbidities impacted this encounter? (DM, HTN, Smoking, COPD, CAD, Cancer, CVA, ARF, Chemo, Hep., AIDS, mental health diagnosis, sleep apnea, morbid obesity)? @ -None Was patient admitted / discharged? Hospital course, mention meds given and route, prescriptions, significant lab abnormalities, going to OR and other pertinent info. @ -Patient's lab work came back within normal range troponin was normal. Patient insisted from the moment she arrived that she wanted pain medicine and was insistent that she be kept no matter what. Patient was unreasonable and renting raving and even punching the wall. Patient was positive for cocaine Undiagnosed new problem with uncertain prognosis? @ -No Drug Therapy requiring intensive monitoring for toxicity (Heparin, Nitro, Insulin, Cardizem)? @ -No Were any procedures done? @ -No Diagnosis/symptom? @ -Chest wall pain Acute, or Chronic, or Acute on Chronic? @ -Acute Uncomplicated (without systemic symptoms) or Complicated (systemic symptoms)? @ -Uncomplicated Side effects of treatment? @ -No Exacerbation, Progression, or Severe Exacerbation? @ -No Poses a threat to life or bodily function? How? (Chest pain, [place], [place], pneumonia, PE, COPD, DKA, ARF, appy, cholecystitis, CVA, Diverticulitis, Homicidal, Suicidal, threat to staff... and all critical care pts) @ -No Diagnosis/symptom? @ -Cocaine abuse Acute, or Chronic, or Acute on Chronic? @ -Acute Uncomplicated (without systemic symptoms) or Complicated (systemic symptoms)? @ -complicated Side effects of treatment? @ -None Exacerbation, Progression, or Severe Exacerbation] @ -No Poses a threat to life or bodily function? @ -No - Lab Data Result diagrams: 02/22/25 19:17 02/22/25 21:10 Lab Results 02/22/25 02/22/25 02/22/25 Range/Units 19:05 19:17 19:17 WBC 14.28 H (4.50-10.00) 10*3/uL RBC 4.74 (4.10-5.20) 10*6/uL Hgb 13.0 (12.0-15.0) g/dL Hct 39.9 (37.2-46.3) % MCV 84.2 (80.0-97.0) fL MCH 27.4 (27.0-32.0) pg MCHC 32.6 (32.0-37.0) g/dL Plt Count 258 (140-440) 10*3/uL MPV 10.0 (9.5-12.2) fL Immature Gran % (Auto) 0.6 % Neutrophils % 63.0 % Lymphocytes % 24.2 % Monocytes % 6.4 % Eosinophils % 5.4 % Basophils % 0.4 % Immature Gran # 0.08 H (0.00-0.04) 10*3/uL Neutrophils # 9.00 H (1.80-7.70) 10*3/uL Lymphocytes # 3.45 (0.90-5.00) 10*3/uL Monocytes # 0.92 (0.20-1.00) 10*3/uL Eosinophils # 0.77 H (0.04-0.35) 10*3/uL Basophils # 0.06 (0.00-0.10) 10*3/uL Sodium (137-145) mmol/L Potassium (3.5-5.1) mmol/L Chloride (98-107) mmol/L Carbon Dioxide (22-30) mmol/L Anion Gap mmol/L BUN (7-17) mg/dL Creatinine (0.52-1.04) mg/dL Est GFR (CKD-EPI)AfAm (>60 ml/min/1.73 sqM) Est GFR (CKD-EPI)NonAf (>60 ml/min/1.73 sqM) Glucose (74-99) mg/dL Calcium (8.4-10.2) mg/dL Magnesium (1.6-2.3) mg/dL Total Bilirubin (0.2-1.3) mg/dL AST (14-36) U/L ALT (4-34) U/L Alkaline Phosphatase (38-126) U/L Troponin I <0.012 (0.000-0.034) ng/mL Total Protein (6.3-8.2) g/dL Albumin (3.5-5.0) g/dL Urine Color Colorless Urine Appearance Clear (Clear) Urine pH 6.0 (5.0-8.0) Ur Specific Branch 1.020 (1.001-1.035) Urine Protein Negative (Negative) Urine Glucose (UA) 4+ H (Negative) Urine Ketones Negative (Negative) Urine Blood Negative (Negative) Urine Nitrite Negative (Negative) Urine Bilirubin Negative (Negative) Urine Urobilinogen <2.0 (<2.0) mg/dL Ur Leukocyte Esterase Small H (Negative) Urine RBC 1 (0-5) /hpf Urine WBC 3 (0-5) /hpf Ur Squamous Epith Cells 2 (0-4) /hpf Urine Bacteria Rare H (None) /hpf Urine Mucus Rare H (None) /hpf Urine Opiates Screen Not Detected (NotDetected) Ur Oxycodone Screen Not Detected (NotDetected) Urine Methadone Screen Not Detected (NotDetected) Ur Barbiturates Screen Not Detected (NotDetected) U Tricyclic Antidepress Not Detected (NotDetected) Ur Phencyclidine Scrn Not Detected (NotDetected) Ur Amphetamines Screen Not Detected (NotDetected) U Methamphetamines Scrn Not Detected (NotDetected) U Benzodiazepines Scrn Detected H (NotDetected) Urine Cocaine Screen Detected H (NotDetected) U Marijuana (THC) Screen Not Detected (NotDetected) 02/22/25 Range/Units 21:10 WBC (4.50-10.00) 10*3/uL RBC (4.10-5.20) 10*6/uL Hgb (12.0-15.0) g/dL Hct (37.2-46.3) % MCV (80.0-97.0) fL MCH (27.0-32.0) pg MCHC (32.0-37.0) g/dL Plt Count (140-440) 10*3/uL MPV (9.5-12.2) fL Immature Gran % (Auto) % Neutrophils % % Lymphocytes % % Monocytes % % Eosinophils % % Basophils % % Immature Gran # (0.00-0.04) 10*3/uL Neutrophils # (1.80-7.70) 10*3/uL Lymphocytes # (0.90-5.00) 10*3/uL Monocytes # (0.20-1.00) 10*3/uL Eosinophils # (0.04-0.35) 10*3/uL Basophils # (0.00-0.10) 10*3/uL Sodium 137 (137-145) mmol/L Potassium 4.3 (3.5-5.1) mmol/L Chloride 103 (98-107) mmol/L Carbon Dioxide 23 (22-30) mmol/L Anion Gap 11 mmol/L BUN 20 H (7-17) mg/dL Creatinine 0.62 (0.52-1.04) mg/dL Est GFR (CKD-EPI)AfAm >90 (>60 ml/min/1.73 sqM) Est GFR (CKD-EPI)NonAf >90 (>60 ml/min/1.73 sqM) Glucose 131 H (74-99) mg/dL Calcium 9.0 (8.4-10.2) mg/dL Magnesium 1.9 (1.6-2.3) mg/dL Total Bilirubin 0.3 (0.2-1.3) mg/dL AST 20 (14-36) U/L ALT 15 (4-34) U/L Alkaline Phosphatase 133 H (38-126) U/L Troponin I (0.000-0.034) ng/mL Total Protein 7.5 (6.3-8.2) g/dL Albumin 4.0 (3.5-5.0) g/dL Urine Color Urine Appearance (Clear) Urine pH (5.0-8.0) Ur Specific Branch (1.001-1.035) Urine Protein (Negative) Urine Glucose (UA) (Negative) Urine Ketones (Negative) Urine Blood (Negative) Urine Nitrite (Negative) Urine Bilirubin (Negative) Urine Urobilinogen (<2.0) mg/dL Ur Leukocyte Esterase (Negative) Urine RBC (0-5) /hpf Urine WBC (0-5) /hpf Ur Squamous Epith Cells (0-4) /hpf Urine Bacteria (None) /hpf Urine Mucus (None) /hpf Urine Opiates Screen (NotDetected) Ur Oxycodone Screen (NotDetected) Urine Methadone Screen (NotDetected) Ur Barbiturates Screen (NotDetected) U Tricyclic Antidepress (NotDetected) Ur Phencyclidine Scrn (NotDetected) Ur Amphetamines Screen (NotDetected) U Methamphetamines Scrn (NotDetected) U Benzodiazepines Scrn (NotDetected) Urine Cocaine Screen (NotDetected) U Marijuana (THC) Screen (NotDetected) Disposition Clinical Impression: Chest wall contusion, Cocaine abuse Disposition: HOME SELF-CARE Condition: Good Instructions (If sedation given, give patient instructions): Chest Pain (ED), Cocaine Abuse (ED) Additional Instructions: Stop using cocaine Is patient prescribed a controlled substance at d/c from ED?: No Referrals: None,Stated [Primary Care Provider] - 1-2 days Time of Disposition: 21:27
[2025-02-22 19:42] LABS: Bacteria,Urine Rare /hpf; Bilirubin,Urine Negative (Negative); Blood,Urine Negative (Negative); Color,Urine Colorless; Glucose,Urine (UA) 4+ (Negative); Ketones,Urine Negative (Negative); Leukocyte Esterase,Urine Small (Negative); Mucus,Urine Rare /hpf; Nitrite,Urine Negative (Negative); PH, Urine 6.0 (5.0-8.0); Protein,Urine Negative (Negative); RBC,Urine 1 /hpf (0-5); Specific Gravity,Urine 1.020 (1.001-1.035); Squamous Epithelial Cell,Urine 2 /hpf (0-4); Urobilinogen,Urine <2.0 mg/dL (<2.0); WBC,Urine 3 /hpf (0-5)
[2025-02-22 19:48] LABS: Barbiturate Screen,Urine Not Detected (NotDetected); Benzodiazepines Screen,Urine Detected (NotDetected); Opiate Screen,Urine Not Detected (NotDetected); Oxycodone Screen, Urine Not Detected (NotDetected); Phencyclidine Screen,Urine Not Detected (NotDetected); Tricyclic Antidepressant,Urine Not Detected (NotDetected); Urn Cannabinoid Scrn Not Detected (NotDetected)
[2025-02-22 21:14] LABS: Basophils # (A) 0.06 10*3/uL (0.00-0.10); Basophils % (A) 0.4 %; Eosinophils # (A) 0.77 10*3/uL (0.04-0.35); Eosinophils % (A) 5.4 %; HCT 39.9 % (37.2-46.3); HGB 13.0 g/dL (12.0-15.0); Lymphocytes # (A) 3.45 10*3/uL (0.90-5.00); Lymphocytes % (A) 24.2 %; MCH 27.4 pg (27.0-32.0); MCHC 32.6 g/dL (32.0-37.0); MCV 84.2 fL (80.0-97.0); Monocytes # (A) 0.92 10*3/uL (0.20-1.00); Monocytes % (A) 6.4 %; Neutrophils # (A) 9.00 10*3/uL (1.80-7.70); Neutrophils % (A) 63.0 %; Platelet Count 258 10*3/uL (140-440); RBC 4.74 10*6/uL (4.10-5.20); RDW 14.7 % (11.5-14.5); WBC 14.28 10*3/uL (4.50-10.00)
[2025-02-22 21:31] LABS: ALT 15 U/L (4-34); AST 20 U/L (14-36); African American GFR (CKD) >90 (>60 ml/min/1.73 sqM); Albumin 4.0 g/dL (3.5-5.0); Alkaline Phosphatase 133 U/L (38-126); Anion Gap 11 mmol/L; Blood Urea Nitrogen 20 mg/dL (7-17); Calcium 9.0 mg/dL (8.4-10.2); Carbon Dioxide 23 mmol/L (22-30); Chloride 103 mmol/L (98-107); Glucose 131 mg/dL (74-99); Magnesium 1.9 mg/dL (1.6-2.3); Non-African American GFR(CKD) >90 (>60 ml/min/1.73 sqM); Potassium 4.3 mmol/L (3.5-5.1); Sodium 137 mmol/L (137-145); Total Protein 7.5 g/dL (6.3-8.2)
[2025-02-22 22:45] VITALS: BP 123/82; RESP 16; TEMP 98.6
== END 2025-02-22 22:07 | disposition home or self-care (01) ==
LOC: EC 18:39
DX: S20.219A Contusion of unspecified front wall of thorax, initial encounter (principal); F14.10 Cocaine abuse, uncomplicated; Z87.891 Personal history of nicotine dependence; Z91.041 Radiographic dye allergy status; Z88.0 Allergy status to penicillin; Z88.1 Allergy status to other antibiotic agents; Z88.5 Allergy status to narcotic agent; Z91.013 Allergy to seafood; Z91.010 Allergy to peanuts; X58.XXXA Exposure to other specified factors, initial encounter
CPT/HCPCS: 36415; 80053; 80306; 81001; 83735; 84484; 85025; 93005; 99285